=== PATIENT | female | born 1980 | race African-American/Black ===

== ENCOUNTER 2017-07-11 12:40 | Emergency (ER) | payer MEDICAID ==
[2017-07-11 12:51] VITALS: BP 143/102
[2017-07-11] MEDS ORDERED: PROMETHAZINE HCL INJ 25 MG/1 ML VIAL IV ONE (13:41)
--- NOTE | 2017-07-11 13:42 | ER Document Report ---
ED Medical Screen (RME) - General Chief Complaint: Abdominal Pain Stated Complaint: STOMACH PAIN Time Seen by Provider: 07/11/17 13:36 TRAVEL OUTSIDE OF THE U.S. IN LAST 30 DAYS: No - HPI Notes: 07/11/17 13:39 Patient just recently moved to the community from [place] presents with 10/10 stabbing epigastric pain with radiation to her back. Has been associated profound nausea and vomiting. Nothing is made the pain better or worse. Patient has a lengthy history of pancreatitis although she stopped drinking alcohol many years ago. Patient denies fever or any trauma to her abdomen denies chest pain shortness of breath. Denies any diarrhea or dysuria. - Related Data Allergies/Adverse Reactions: acetaminophen [From [place]] Allergy (Verified 07/11/17 12:41) hydrocodone [From [place]] Allergy (Verified 07/11/17 12:41) morphine Allergy (Verified 07/11/17 12:41) Review of Systems - Review of Systems Notes: REVIEW OF SYSTEMS: CONSTITUTIONAL: -fevers, -chills EENT: -eye pain, -difficulty swallowing, -nasal congestion CARDIOVASCULAR: -chest pain, -syncope. RESPIRATORY: -cough, -SOB GASTROINTESTINAL: Abdominal pain, positive for nausea and vomiting GENITOURINARY: -dysuria, -hematuria MUSCULOSKELETAL: -back pain, -neck pain SKIN: -rash or skin lesions. HEMATOLOGIC: -easy bruising or bleeding. LYMPHATIC: -swollen, enlarged glands. NEUROLOGICAL: -altered mental status or loss of consciousness, -headache, - neurologic symptoms PSYCHIATRIC: -anxiety, -depression. ALL OTHER SYSTEMS REVIEWED AND NEGATIVE. Physical Exam - Vital signs Vitals: Temp Pulse Resp BP Pulse Ox 99.4 F 105 H 16 143/102 H 100 07/11/17 12:49 07/11/17 12:49 07/11/17 12:49 07/11/17 12:49 07/11/17 12:49 - Notes Notes: PHYSICAL EXAMINATION: GENERAL: Well-appearing, well-nourished and in no acute distress. HEAD: Atraumatic, normocephalic. EYES: Pupils equal round and reactive to light, extraocular movements intact, sclera anicteric, conjunctiva are normal. ENT: nares patent, oropharynx clear without exudates. Moist mucous membranes. NECK: Normal range of motion, supple without lymphadenopathy LUNGS: Breath sounds clear to auscultation bilaterally and equal. No wheezes rales or rhonchi. HEART: Regular rate and rhythm without murmurs ABDOMEN: Extremely tender epigastric area, no guarding. Negative for peritonitis EXTREMITIES: Normal range of motion, no pitting or edema. No cyanosis. NEUROLOGICAL: Cranial nerves grossly intact. Normal speech, normal gait. Normal sensory and motor exams. PSYCH: Normal mood, normal affect. SKIN: Warm, Dry, normal turgor, no rashes or lesions noted. Course - Re-evaluation Re-evalutation: 07/11/17 13:40 Unfortunate female just moved to the community from [place] presents with apparent pancreatitis, chronic in nature. Will order extensive lab workup further evaluation required in the main side of the department. - Vital Signs Vital signs: Temp Pulse Resp BP Pulse Ox 99.4 F 105 H 16 143/102 H 100 07/11/17 12:49 07/11/17 12:49 07/11/17 12:49 07/11/17 12:49 07/11/17 12:49
--- NOTE | 2017-07-11 15:07 | ER Document Report ---
ED GI/ - General Chief Complaint: Abdominal Pain Stated Complaint: STOMACH PAIN Time Seen by Provider: 07/11/17 13:36 Mode of Arrival: Ambulatory Information source: Patient Notes: Patient is a 36-year-old female with a history of type 2 diabetes, DKA and alcoholic pancreatitis who presents to the ER today for left upper quadrant abdominal pain 2 days with nausea and one episode of vomiting today. Patient denies any diarrhea. Patient states that she stopped drinking alcohol 6 years ago. Patient states that she did take her blood pressure prior to leaving the house to come to the ER and it was 150. Patient states she is compliant with her diabetic medications. She denies any fevers or chills. TRAVEL OUTSIDE OF THE U.S. IN LAST 30 DAYS: No - Related Data Allergies/Adverse Reactions: acetaminophen [From [place]] Allergy (Verified 07/11/17 12:41) hydrocodone [From [place]] Allergy (Verified 07/11/17 12:41) morphine Allergy (Verified 07/11/17 12:41) Past Medical History - General Information source: Patient - Social History Smoking Status: Current Every Day Smoker Frequency of alcohol use: None Drug Abuse: Marijuana Family History: Reviewed & Not Pertinent Patient has suicidal ideation: No Patient has homicidal ideation: No - Past Medical History Cardiac Medical History: Reports: Hx Hypertension Endocrine Medical History: Reports: Hx Diabetes Mellitus Type 2 Renal/ Medical History: Denies: Hx Peritoneal Dialysis Past Surgical History: Reports: Hx Hysterectomy Review of Systems - Review of Systems Constitutional: No symptoms reported EENT: No symptoms reported Cardiovascular: No symptoms reported Respiratory: No symptoms reported Gastrointestinal: See HPI Genitourinary: No symptoms reported Female Genitourinary: No symptoms reported Musculoskeletal: No symptoms reported Skin: No symptoms reported Hematologic/Lymphatic: No symptoms reported Neurological/Psychological: No symptoms reported Physical Exam - Vital signs Vitals: Temp Pulse Resp BP Pulse Ox 99.4 F 105 H 16 143/102 H 100 07/11/17 12:49 07/11/17 12:49 07/11/17 12:49 07/11/17 12:49 07/11/17 12:49 - Notes Notes: PHYSICAL EXAMINATION: GENERAL: Uncomfortable appearing, but in no acute distress. HEAD: Atraumatic, normocephalic. EYES: Pupils equal round and reactive to light, extraocular movements intact, sclera anicteric, conjunctiva are normal. ENT: ear canals without erythema or foreign body, TMs pearly conteh with good bony landmarks, nares patent, oropharynx clear without exudates. Moist mucous membranes. Airway patent NECK: Normal range of motion, supple without lymphadenopathy LUNGS: CTAB and equal. No wheezes rales or rhonchi. HEART: Regular rate and rhythm without murmurs ABDOMEN: Soft, left upper quadrant tenderness. No guarding, no rebound BACK: no vertebral tenderness, normal ROM GI/: no CVA tenderness EXTREMITIES: Normal range of motion, no pitting edema. No cyanosis. NEUROLOGICAL: Cranial nerves grossly intact. Normal sensory/motor exams. PSYCH: Normal mood, normal affect. SKIN: Warm, Dry, normal turgor, no rashes or lesions noted Course - Re-evaluation Re-evalutation: 07/11/17 18:28 Glucose is 130, lipase is mildly elevated at 500, ultrasound-guided IV was placed by Dr. Prescott and so far has been successful, patient feels much better and is now asleep after pain medication and nausea medication. Awaiting CAT scan results. Patient is not in DKA. 07/11/17 19:00 CT negative for any acute pathology, patient will be discharged at this time as she has eaten an entire [employer] sandwich in the room. 07/12/17 16:56 - Vital Signs Vital signs: Temp Pulse Resp BP Pulse Ox 99.4 F 105 H 16 143/102 H 100 07/11/17 12:49 07/11/17 12:49 07/11/17 12:49 07/11/17 12:49 07/11/17 12:49 - Laboratory Result Diagrams: 07/11/17 16:25 07/11/17 17:29 Laboratory results interpreted by me: 07/11/17 07/11/17 07/11/17 13:50 16:25 17:29 Hct 35.9 L RDW 14.6 H Carbon Dioxide 32 H Glucose 129 H POC Glucose Lipase 527.6 H Urine Protein >=500 H Urine Glucose (UA) >=500 H 07/11/17 17:52 Hct RDW Carbon Dioxide Glucose POC Glucose 139 H Lipase Urine Protein Urine Glucose (UA) Discharge - Discharge Clinical Impression: Pancreatitis Qualifiers: Chronicity: acute Pancreatitis type: unspecified pancreatitis type Acute pancreatitis complication: unspecified Qualified Code(s): K85.90 - Acute pancreatitis without necrosis or infection, unspecified Condition: Stable Disposition: HOME, SELF-CARE Instructions: Clear Liquid Diet ([facility]), Pancreatitis ([facility]) Additional Instructions: Return immediately for any new or worsening symptoms. Follow up with primary care provider, call tomorrow to make followup appointment. Prescriptions: Promethazine HCl [Phenergan 25 mg Tablet] 1 - 2 tab PO Q6H PRN #15 tablet PRN Reason: Forms: Return to Work
[2017-07-11] MEDS ORDERED: HYDROMORPHONE HCL INJ/PF 2 MG/ML AMPULE IV ONE (15:09)
[2017-07-11 15:18] LABS: APPEARANCE,URINE SLIGHTLY-CLOUDY; BILIRUBIN,URINE NEGATIVE (NEGATIVE); COLOR,URINE YELLOW; GLUCOSE, URINE >=500 mg/dL (NEGATIVE); KETONES,URINE NEGATIVE (NEGATIVE); LEUKOCYTE ESTERASE,URINE NEGATIVE (NEGATIVE); NITRITE,URINE NEGATIVE (NEGATIVE); PROTEIN,URINE >=500 mg/dL (NEGATIVE); URINE SPECIFIC GRAVITY 1.015; UROBILINOGEN,URINE NEGATIVE mg/dL (<2.0)
[2017-07-11 16:44] LABS: ABSOLUTE BASOPHILS # (AUTO) 0.1 10^3/uL (0.0-0.2); ABSOLUTE EOSINOPHILS # (AUTO) 0.1 10^3/uL (0.0-0.6); ABSOLUTE LYMPHOCYTES (AUTO) 2.7 10^3/uL (0.5-4.7); ABSOLUTE MONOCYTES (AUTO) 0.6 10^3/uL (0.1-1.4); ABSOLUTE NEUT (AUTO) 5.3 10^3/uL (1.7-8.2); BASOPHILS % (AUTO) 1.2 % (0-2); EOSINOPHILS % (AUTO) 1.1 % (0-6); HEMATOCRIT 35.9 % (36.0-47.0); HEMOGLOBIN 12.1 g/dL (12.0-15.5); LYMPHOCYTES % (AUTO) 30.7 % (13-45); MEAN CORPUSCULAR HEMOGLOBIN 29.3 pg (27.0-33.4); MEAN CORPUSCULAR HGB CONC 33.6 g/dL (32.0-36.0); MEAN CORPUSCULAR VOLUME 87 fl (80-97); MONOCYTES % (AUTO) 6.8 % (3-13); PLATELET COUNT 315 10^3/uL (150-450); RED BLOOD COUNT 4.11 10^6/uL (3.72-5.28); RED CELL DISTRIBUTION WIDTH 14.6 % (11.5-14.0); SEGMENTED NEUTROPHILS % (AUTO) 60.2 % (42-78); TOTAL CELLS COUNTED % (AUTO) 100 %; WHITE BLOOD COUNT 8.8 10^3/uL (4.0-10.5)
[2017-07-11 17:54] LABS: ANION GAP 10 (5-19); BLOOD UREA NITROGEN 19 mg/dL (7-20); CALCIUM 10.1 mg/dL (8.4-10.2); CARBON DIOXIDE 32 mmol/L (22-30); CHLORIDE 101 mmol/L (98-107); GLUCOSE 129 mg/dL (75-110); LIPASE 527.6 U/L (23-300); POTASSIUM 4.3 mmol/L (3.6-5.0); SODIUM 142.5 mmol/L (137-145)
--- NOTE | 2017-07-11 18:56 | RADIOLOGY REPORT (SQ) ---
EXAM DESCRIPTION: CT ABD/PELVIS ORAL ONLY COMPLETED DATE/TIME: 07/11/2017 6:43 pm REASON FOR STUDY: epigastric pain/luq pain COMPARISON: None. TECHNIQUE: CT scan of the abdomen and pelvis performed with oral contrast only. Images reviewed with lung, soft tissue, and bone windows. Reconstructed coronal and sagittal MPR images reviewed. All hermila ges stored on PACS. All CT scanners at this facility use dose modulation, iterative reconstruction, and/or weight based d osing when appropriate to reduce radiation dose to as low as reasonably achievable (ALARA). [facility]: Dose Right [facility]: CareDose [facility]: Dose Right [facility]: Teradose 4D [facility]: [employer] RADIATION DOSE: mGy. LIMITATIONS: None. FINDINGS: LOWER CHEST: Dependent subsegmental atelectasis. NON-CONTRASTED LIVER, SPLEEN, ADRENALS: Evaluation limited by lack of IV contrast. No identified sign ificant masses. PANCREAS: No masses. No peripancreatic inflammatory changes. GALLBLADDER: No identified stones by CT criteria. No inflammatory changes to suggest cholecystitis. RIGHT KIDNEY AND URETER: No suspicious masses. Assessment limited by lack of IV contrast. No signif icant calcifications. No hydronephrosis or hydroureter. LEFT KIDNEY AND URETER: No suspicious masses. Assessment limited by lack of IV contrast. No signifi cant calcifications. No hydronephrosis or hydroureter. AORTA AND RETROPERITONEUM: No aneurysm. No retroperitoneal masses or adenopathy. BOWEL AND PERITONEAL CAVITY: No obvious masses or inflammatory changes. No free fluid. APPENDIX: Normal. PELVIS, BLADDER, AND ABDOMINAL WALL:No abnormal masses. No free fluid. Bladder normal. BONES: No significant findings. OTHER: No other significant finding. IMPRESSION: NO SIGNIFICANT OR ACUTE PROCESS IN THE ABDOMEN OR PELVIS. COMMENT: Quality ID # [id number]: Final reports with documentation of one or more dose reduction techniques (e.g., Automated exposure control, adjustment of the mA and/or kV according to patient size, use of iterative reconstruction technique) TECHNICAL DOCUMENTATION: JOB ID: [id number] [employer]- All Rights Reserved Reading location - IP/workstation name: [email or web address]
== END 2017-07-11 19:33 | disposition home or self-care (01) ==
LOC: ER 12:40
DX: K85.90 Acute pancreatitis without necrosis or infection, unspecified (principal); R10.12 Left upper quadrant pain; E11.9 Type 2 diabetes mellitus without complications; R11.2 Nausea with vomiting, unspecified; F17.200 Nicotine dependence, unspecified, uncomplicated; I10 Essential (primary) hypertension
CPT/HCPCS: 99284; 96374; 96375; 36415; 82962; 83605; 83690; 84703; 85025; 80048; 81001; 74176; J1170; J2550

== ENCOUNTER 2017-07-13 12:38 | Emergency (ER) | payer MEDICAID ==
[2017-07-13 12:45] VITALS: BP 152/93
[2017-07-13] MEDS ORDERED: NORMAL SALINE 1000 ML 1,000 ML IV ONE (13:48)
[2017-07-13] MEDS ORDERED: ONDANSETRON HCL INJ/PF 4 MG/2 ML SDV IV ONE (13:48)
--- NOTE | 2017-07-13 13:48 | ER Document Report ---
ED Medical Screen (RME) - General Chief Complaint: Abdominal Pain Stated Complaint: NAUSEA Time Seen by Provider: 07/13/17 13:43 Mode of Arrival: Ambulatory Information source: Patient Notes: This is a 36-year-old female with a history of hypertension, insulin requiring diabetes with a history of DKA in the past who presents to the emergency room with nausea, vomiting, diarrhea and epigastric pain. Patient states she was evaluated in the ER 2 days ago for similar symptoms. TRAVEL OUTSIDE OF THE U.S. IN LAST 30 DAYS: No - Related Data Allergies/Adverse Reactions: hydrocodone [From [place]] Allergy (Verified 07/13/17 12:42) morphine Allergy (Verified 07/13/17 12:42) Past Medical History - Past Medical History Cardiac Medical History: Reports: Hx Hypertension Endocrine Medical History: Reports: Hx Diabetes Mellitus Type 2 Renal/ Medical History: Denies: Hx Peritoneal Dialysis Past Surgical History: Reports: Hx Hysterectomy Physical Exam - Vital signs Vitals: Temp Pulse Resp BP Pulse Ox 99.4 F 113 H 22 H 152/93 H 98 07/13/17 12:43 07/13/17 12:43 07/13/17 12:43 07/13/17 12:43 07/13/17 12:43 Course - Vital Signs Vital signs: Temp Pulse Resp BP Pulse Ox 99.4 F 113 H 22 H 152/93 H 98 07/13/17 12:43 07/13/17 12:43 07/13/17 12:43 07/13/17 12:43 07/13/17 12:43
[2017-07-13] MEDS ORDERED: PROMETHAZINE HCL 25 MG TABLET PO ONE (14:39)
[2017-07-13 15:44] LABS: ABSOLUTE BASOPHILS # (AUTO) 0.1 10^3/uL (0.0-0.2); ABSOLUTE EOSINOPHILS # (AUTO) 0.1 10^3/uL (0.0-0.6); ABSOLUTE LYMPHOCYTES (AUTO) 2.6 10^3/uL (0.5-4.7); ABSOLUTE MONOCYTES (AUTO) 0.6 10^3/uL (0.1-1.4); ABSOLUTE NEUT (AUTO) 5.6 10^3/uL (1.7-8.2); BASOPHILS % (AUTO) 1.1 % (0-2); EOSINOPHILS % (AUTO) 0.9 % (0-6); HEMATOCRIT 38.1 % (36.0-47.0); HEMOGLOBIN 12.5 g/dL (12.0-15.5); LYMPHOCYTES % (AUTO) 28.9 % (13-45); MEAN CORPUSCULAR HEMOGLOBIN 28.7 pg (27.0-33.4); MEAN CORPUSCULAR HGB CONC 32.8 g/dL (32.0-36.0); MEAN CORPUSCULAR VOLUME 87 fl (80-97); MONOCYTES % (AUTO) 6.2 % (3-13); PLATELET COUNT 341 10^3/uL (150-450); RED BLOOD COUNT 4.36 10^6/uL (3.72-5.28); RED CELL DISTRIBUTION WIDTH 14.9 % (11.5-14.0); SEGMENTED NEUTROPHILS % (AUTO) 62.9 % (42-78); TOTAL CELLS COUNTED % (AUTO) 100 %; WHITE BLOOD COUNT 8.9 10^3/uL (4.0-10.5)
[2017-07-13] MEDS ORDERED: FENTANYL CITRATE INJ/PF 100 MCG/2 ML AMPUL IM ONE ×2 (16:01→17:21)
[2017-07-13 16:14] LABS: ALANINE AMINOTRANSFERASE 24 U/L (9-52); ALBUMIN 4.3 g/dL (3.5-5.0); ALKALINE PHOSPHATASE 131 U/L (38-126); ASPARTATE AMINO TRANSFERASE 41 U/L (14-36); BILIRUBIN,DIRECT 0.4 mg/dL (0.0-0.4); BILIRUBIN,TOTAL 0.4 mg/dL (0.2-1.3); BLOOD UREA NITROGEN 23 mg/dL (7-20); CALCIUM 9.8 mg/dL (8.4-10.2); CARBON DIOXIDE 30 mmol/L (22-30); CHLORIDE 100 mmol/L (98-107); GLUCOSE 322 mg/dL (75-110); POTASSIUM 4.4 mmol/L (3.6-5.0); TOTAL PROTEIN 7.9 g/dL (6.3-8.2)
[2017-07-13 16:15] LABS: ANION GAP 8 (5-19); SODIUM 137.6 mmol/L (137-145)
--- NOTE | 2017-07-13 16:30 | ER Document Report ---
ED General - General Chief Complaint: Abdominal Pain Stated Complaint: NAUSEA Time Seen by Provider: 07/13/17 13:43 Mode of Arrival: Ambulatory Information source: Patient, [facility] Records Notes: 36-year-old female with type 1 diabetes presents with complaint of abdominal pain that started 3 days prior to arrival. Abdominal pain is left located in the epigastric and left upper quadrant. She describes it as a burning pain. She has had associated nausea, multiple episodes of vomiting. Patient was seen here 2 days prior to this visit with similar symptoms but was discharged home with improved symptoms. Patient has been compliant with her Lantus and NovoLog. She also states that she has been experiencing diarrhea that has been normal in color. TRAVEL OUTSIDE OF THE [place] IN LAST 30 DAYS: No - HPI Onset: Other Onset/Duration: Intermittent Quality of pain: Burning Severity: Moderate Associated symptoms: Diarrhea, Nausea, Vomiting Exacerbated by: Denies Relieved by: Denies Similar symptoms previously: Yes Recently seen / treated by doctor: Yes - Related Data Allergies/Adverse Reactions: hydrocodone [From [place]] Allergy (Verified 07/13/17 12:42) morphine Allergy (Verified 07/13/17 12:42) Past Medical History - General Information source: Patient - Social History Smoking Status: Current Every Day Smoker Chew tobacco use (# tins/day): No Smoking Education Provided: Yes - Patient counselled regarding cessation for 4 minutes Frequency of alcohol use: Rare Drug Abuse: Marijuana Family History: Reviewed & Not Pertinent Patient has suicidal ideation: No Patient has homicidal ideation: No - Past Medical History Cardiac Medical History: Reports: Hx Hypertension Endocrine Medical History: Reports: Hx Diabetes Mellitus Type 2 Renal/ Medical History: Denies: Hx Peritoneal Dialysis Past Surgical History: Reports: Hx Hysterectomy Review of Systems - Review of Systems Notes: REVIEW OF SYSTEMS: CONSTITUTIONAL : Denies fever, chills, or sweats. Denies recent illness. Denies weight loss, recent hospitalizations. EENT: Denies visula changes, eye pain. Denies nasal or sinus congestion or discharge. Denies sore throat, oral lesions, difficulty swallowing. CARDIOVASCULAR: Denies chest pain. Denies palpitations or racing or irregular heart beat. Denies lower extremity edema. RESPIRATORY: Denies cough, cold, or chest congestion. Denies shortness of breath, difficulty breathing, or wheezing. GASTROINTESTINAL: Denies blood in vomitus, stools, or per rectum. Denies black, tarry stools. Denies constipation. GENITOURINARY: Denies difficulty urinating, painful urination, burning, frequency, blood in urine, or vaginal discharge. MUSCULOSKELETAL: Denies back or neck pain or stiffness. Denies joint pain or swelling. SKIN: Denies rash, lesions or sores. HEMATOLOGIC : Denies easy bruising or bleeding. LYMPHATIC: Denies swollen, enlarged glands. NEUROLOGICAL: Denies confusion or altered mental status. Denies passing out or loss of consciousness. Denies dizziness or lightheadedness. Denies headache. Denies weakness or paralysis or loss of use of either side. Denies problems with gait or speech. Denies sensory loss, numbness, or tingling. Denies seizures. PSYCHIATRIC: Denies anxiety or stress. Denies depression, suicidal ideation, or homicidal ideation. Physical Exam - Vital signs Vitals: Temp Pulse Resp BP Pulse Ox 99.4 F 113 H 22 H 152/93 H 98 07/13/17 12:43 07/13/17 12:43 07/13/17 12:43 07/13/17 12:43 07/13/17 12:43 - Notes Notes: PHYSICAL EXAMINATION: GENERAL: Well-appearing, well-nourished and in no acute distress. HEAD: Atraumatic, normocephalic. EYES: Pupils equal round and reactive to light, extraocular movements intact, conjunctiva are normal. ENT: Nares patent, oropharynx clear without exudates. Moist mucous membranes. NECK: Normal range of motion, supple without lymphadenopathy LUNGS: Breath sounds clear to auscultation bilaterally and equal. No wheezes rales or rhonchi. HEART: Regular rate and rhythm without murmurs ABDOMEN: Tenderness to palpation in the left upper quadrant. No guarding, no rebound. No masses appreciated. Female : deferred Musculoskeletal: Normal range of motion, no pitting or edema. No cyanosis. NEUROLOGICAL: Cranial nerves grossly intact. Normal speech, normal gait. Normal sensory, motor exams PSYCH: Normal mood, normal affect. SKIN: Warm, Dry, normal turgor, no rashes or lesions noted. Course - Re-evaluation Re-evalutation: Laboratory 07/13/17 07/13/17 07/13/17 14:20 15:24 15:24 WBC 8.9 RBC 4.36 Hgb 12.5 Hct 38.1 MCV 87 MCH 28.7 MCHC 32.8 RDW 14.9 H Plt Count 341 Seg Neutrophils % 62.9 Lymphocytes % 28.9 Monocytes % 6.2 Eosinophils % 0.9 Basophils % 1.1 Absolute Neutrophils 5.6 Absolute Lymphocytes 2.6 Absolute Monocytes 0.6 Absolute Eosinophils 0.1 Absolute Basophils 0.1 Sodium 137.6 Potassium 4.4 Chloride 100 Carbon Dioxide 30 Anion Gap 8 BUN 23 H Creatinine 1.15 Est GFR ( Amer) > 60 Est GFR (Non-Af Amer) 53 L Glucose 322 H Calcium 9.8 Total Bilirubin 0.4 Direct Bilirubin 0.4 Neonat Total Bilirubin Not Reportable Neonat Direct Bilirubin Not Reportable Neonat Indirect Bili Not Reportable AST 41 H ALT 24 Alkaline Phosphatase 131 H Total Protein 7.9 Albumin 4.3 Lipase 406.0 H Beta HCG, Quant < 2.39 Total Beta HCG NEGATIVE Urine Color YELLOW Urine Appearance SLIGHTLY-CLOUDY Urine pH 5.0 Ur Specific [place] 1.023 Urine Protein >=500 H Urine Glucose (UA) >=500 H Urine Ketones NEGATIVE Urine Blood SMALL H Urine Nitrite NEGATIVE Urine Bilirubin NEGATIVE Urine Urobilinogen NEGATIVE Ur Leukocyte Esterase NEGATIVE Urine WBC (Auto) 2 Urine RBC (Auto) 1 U Hyaline Cast (Auto) 12 Urine Bacteria (Auto) TRACE Squamous Epi Cells Auto 10 Urine Mucus (Auto) RARE Urine Ascorbic Acid NEGATIVE Serum Alcohol < 10 07/13/17 23:56 36-year-old female with type 1 diabetes presents with complaint of abdominal pain that started 3 days prior to arrival. Abdominal pain is left located in the epigastric and left upper quadrant. She describes it as a burning pain. She has had associated nausea, multiple episodes of vomiting. Patient was seen here 2 days prior to this visit with similar symptoms but was discharged home with improved symptoms. Patient has been compliant with her Lantus and NovoLog. She also states that she has been experiencing diarrhea that has been normal in color. Upon arrival vitals are reviewed. Patient is tachycardic, mildly hypertensive but not hypoxic. Patient does not appear toxic or dehydrated. She is in no acute distress. Physical exam is significant for tenderness to palpation of the left upper quadrant without guarding or rebound. Previous medical records were reviewed. CBC is without leukocytosis or anemia. CMP is without electrolyte abnormalities. Patient has mild elevation in her alk phos, AST. Lipase is 406 which is improved from previous labs drawn 48 hours ago. On reevaluation patient is laughing and joking with her family members. She is tolerating fluids. She reports an improvement of pain. Patient is requesting discharge home. Advised her to maintain a clear liquid diet for the next 2-3 days. Patient provided the opportunity to ask questions, and express concerns. Discharge instructions discussed. Patient is agreeable with discharge home. Return indications explained and discussed with the patient who displays understanding. Patient encouraged to return to the emergency department immediately with any concerns. 07/13/17 17:19 Patient reports feeling better. 07/13/17 23:55 07/13/17 23:57 - Vital Signs Vital signs: Temp Pulse Resp BP Pulse Ox 99.4 F 113 H 22 H 152/93 H 98 07/13/17 12:43 07/13/17 12:43 07/13/17 13:39 07/13/17 12:43 07/13/17 12:43 - Laboratory Result Diagrams: 07/13/17 15:24 07/13/17 15:24 Laboratory results interpreted by me: 07/13/17 07/13/17 07/13/17 14:20 15:24 15:24 RDW 14.9 H BUN 23 H Est GFR (Non-Af Amer) 53 L Glucose 322 H AST 41 H Alkaline Phosphatase 131 H Lipase 406.0 H Urine Protein >=500 H Urine Glucose (UA) >=500 H Urine Blood SMALL H Discharge - Discharge Clinical Impression: Pancreatitis Qualifiers: Chronicity: chronic Pancreatitis type: unspecified pancreatitis type Qualified Code(s): K86.1 - Other chronic pancreatitis Nausea & vomiting Qualifiers: Vomiting type: unspecified Vomiting Intractability: unspecified Qualified Code( s): R11.2 - Nausea with vomiting, unspecified Abdominal pain Qualifiers: Abdominal location: unspecified location Qualified Code(s): R10.9 - Unspecified abdominal pain Condition: Good Disposition: HOME, SELF-CARE Instructions: Abdominal Pain ([facility]), Diarrhea, Nonspecific ([facility]), Pancreatitis ( [facility]), Reglan ([facility]), Vomiting ([facility]) Additional Instructions: Please follow a clear liquid diet for the next 5-7 days. Your lab work does not show that you are in DKA. Follow up with your physician tomorrow for further care or return to the ED IMMEDIATELY if symptoms worsen or new concerns occur. If you cannot afford to follow up with your primary care physician a list of low cost clinics have been provided at the end of your discharge papers as well. Prescriptions: Metoclopramide HCl [Reglan 10 mg Tablet] 1 tab PO ASDIR PRN #15 tablet PRN Reason: Oxycodone HCl/Acetaminophen [Percocet 5-325 mg Tablet] 1 tab PO ASDIR PRN #15 tab PRN Reason:
[2017-07-13 16:35] LABS: ALCOHOL < 10 mg/dL (NONE DETECTED)
[2017-07-13 16:49] LABS: APPEARANCE,URINE SLIGHTLY-CLOUDY; BILIRUBIN,URINE NEGATIVE (NEGATIVE); COLOR,URINE YELLOW; GLUCOSE, URINE >=500 mg/dL (NEGATIVE); KETONES,URINE NEGATIVE (NEGATIVE); LEUKOCYTE ESTERASE,URINE NEGATIVE (NEGATIVE); NITRITE,URINE NEGATIVE (NEGATIVE); PROTEIN,URINE >=500 mg/dL (NEGATIVE); URINE SPECIFIC GRAVITY 1.023; UROBILINOGEN,URINE NEGATIVE mg/dL (<2.0)
[2017-07-13] MEDS ORDERED: METOCLOPRAMIDE HCL 10 MG TABLET PO ONE (17:21)
== END 2017-07-13 18:22 | disposition home or self-care (01) ==
LOC: ER 12:38
DX: R11.2 Nausea with vomiting, unspecified (principal); K86.1 Other chronic pancreatitis; R10.9 Unspecified abdominal pain; R19.7 Diarrhea, unspecified; E10.9 Type 1 diabetes mellitus without complications; F17.200 Nicotine dependence, unspecified, uncomplicated; I10 Essential (primary) hypertension; Z88.6 Allergy status to analgesic agent; Z90.710 Acquired absence of both cervix and uterus
CPT/HCPCS: 99406; 99284; 96372; 36415; 80307; 84702; 83690; 85025; 80053; 81001; J3010; J3490 ×2

== ENCOUNTER 2017-07-22 06:38 | Emergency (ER) | payer MEDICAID ==
[2017-07-22] MEDS ORDERED: FENTANYL CITRATE INJ/PF 100 MCG/2 ML AMPUL IV ONE (06:55)
[2017-07-22] MEDS ORDERED: PROCHLORPERAZINE EDISYLATE INJ 10 MG/2 ML VIAL IV ONE (06:55)
--- NOTE | 2017-07-22 06:56 | ER Document Report ---
ED General - General Stated Complaint: ABDOMINAL PAIN Time Seen by Provider: 07/22/17 06:53 Notes: 36-year-old -[place] female to the emergency department chief complaint of abdominal pain. Patient admits that she used to be a heavy drinker and used to be IV drug abuser. Recently moved to the area. Was recently diagnosed with pancreatitis, again. States that she has 10 out of 10 abdominal pain in the epigastric region. Vomiting. Nothing seems to make it better or worse. No fever. TRAVEL OUTSIDE OF THE [place] IN LAST 30 DAYS: No - HPI Onset: Just prior to arrival - Related Data Allergies/Adverse Reactions: hydrocodone [From [place]] Allergy (Verified 07/22/17 07:03) morphine Allergy (Verified 07/22/17 07:03) Past Medical History - General Information source: Patient - Social History Smoking Status: Former Smoker Frequency of alcohol use: Occasional Drug Abuse: None Lives with: Friend Family History: Reviewed & Not Pertinent - Past Medical History Cardiac Medical History: Reports: Hx Hypertension Endocrine Medical History: Reports: Hx Diabetes Mellitus Type 2 Renal/ Medical History: Denies: Hx Peritoneal Dialysis Past Surgical History: Reports: Hx Hysterectomy Review of Systems - Review of Systems Constitutional: No symptoms reported EENT: No symptoms reported Cardiovascular: No symptoms reported Respiratory: No symptoms reported Gastrointestinal: Abdominal pain, Nausea, Vomiting Genitourinary: No symptoms reported Female Genitourinary: No symptoms reported Musculoskeletal: No symptoms reported Skin: No symptoms reported Hematologic/Lymphatic: No symptoms reported Neurological/Psychological: No symptoms reported Physical Exam - Vital signs Vitals: BP 197/157 H 07/22/17 06:44 Interpretation: Hypertensive, Tachycardic - Notes Notes: Uncomfortable appearing, writhing on the bed. - General General appearance: Appears well, Alert - HEENT Head: Normocephalic, Atraumatic Eyes: Normal Pupils: PERRL - Respiratory Respiratory status: No respiratory distress Chest status: Nontender Breath sounds: Normal Chest palpation: Normal - Cardiovascular Rhythm: Regular Heart sounds: Normal auscultation Murmur: No - Abdominal Inspection: Normal Distension: No distension Bowel sounds: Normal Tenderness: Tender, Other - In the epigastric region Organomegaly: No organomegaly - Back Back: Normal, Nontender - Extremities General upper extremity: Normal inspection, Nontender, Normal color, Normal ROM , Normal temperature General lower extremity: Normal inspection, Nontender, Normal color, Normal ROM , Normal temperature, Normal weight bearing. No: Raheem's sign - Neurological Neuro grossly intact: Yes Cognition: Normal Orientation: AAOx4 [place] Com[place] Scale Eye Opening: Spontaneous [place] Coma Scale Verbal: Oriented [place] Coma Scale Motor: Obeys Commands [place] Coma Scale Total: 15 Speech: Normal Motor strength normal: LUE, RUE, LLE, RLE Sensory: Normal - Psychological Associated symptoms: Normal affect, Normal mood - Skin Skin Temperature: Warm Skin Moisture: Dry Skin Color: Other - Multiple track johnson on bilateral upper extremities as well as neck. Course - Re-evaluation Re-evalutation: 07/22/17 07:49 Patient hypertensive, abdominal pain. Young and thin. Likely in narcotic withdrawal. Patient has multiple track johnson on her arms. Attempted multiple tries with ultrasound guidance both of the bilateral upper extremities and the right EJ and was unsuccessful. Nurse was able to get IV and right foot. 07/22/17 08:45 [place] prescription monitoring program access. No obvious recent narcotic prescriptions. 07/22/17 11:27 Labs fairly baseline and unremarkable. Find nothing further acute. At this time patient is resting comfortably. Has not had any further issues while in the ER. Sats are 100%. Blood pressures come down. Heart rate 90. Comfortable discharging after p.o. challenge if unable to complete p.o. challenge may need to be admitted for intractable vomiting. - Vital Signs Vital signs: Temp Pulse Resp BP Pulse Ox 98.1 F 13 179/111 H 100 07/22/17 06:50 07/22/17 10:01 07/22/17 10:00 07/22/17 10:01 - Laboratory Result Diagrams: 07/22/17 08:00 07/22/17 08:00 Laboratory results interpreted by me: 07/22/17 07/22/17 07/22/17 08:00 08:00 08:00 Hgb 11.6 L Hct 35.7 L RDW 14.5 H Sodium 146.8 H Potassium 3.4 L Glucose 225 H Calcium 10.4 H Alkaline Phosphatase 130 H Creatine Kinase 149 H Lipase 430.3 H Urine Protein Urine Glucose (UA) Urine Blood 07/22/17 09:30 Hgb Hct RDW Sodium Potassium Glucose Calcium Alkaline Phosphatase Creatine Kinase Lipase Urine Protein >=500 H Urine Glucose (UA) >=500 H Urine Blood SMALL H Discharge - Discharge Clinical Impression: Chronic abdominal pain Chronic pancreatitis Qualifiers: Pancreatitis type: alcohol induced Qualified Code(s): K86.0 - Alcohol-induced chronic pancreatitis Condition: Good Disposition: HOME, SELF-CARE Instructions: Abdominal Pain ([facility]), Oral Narcotic Medication ([facility]), Pain Medication Injection ([facility]), Pancreatitis ([facility]) Prescriptions: Ondansetron [Zofran Odt 4 mg Tablet] 1 - 2 tab PO Q4H PRN #15 tab.rapdis PRN Reason: For Nausea/Vomiting Oxycodone HCl/Acetaminophen [Percocet 5-325 mg Tablet] 1 tab PO ASDIR PRN #15 tab PRN Reason: Pain Scale Of 3 Referrals: REGI DE LUNA MD [ACTIVE STAFF] - Follow up in 3-5 days AJIT PALOMINO MD [ACTIVE STAFF] - Follow up in 1 week
--- NOTE | 2017-07-22 07:38 | EKG REPORT ---
SEVERITY:- ABNORMAL ECG - SINUS TACHYCARDIA CONSIDER LEFT VENTRICULAR HYPERTROPHY BORDERLINE PROLONGED QT INTERVAL : Confirmed by: Alvaro Lema MD 22-Jul-2017 07:37:17
[2017-07-22 08:33] LABS: ABSOLUTE LYMPHOCYTES (AUTO) 1.9 10^3/uL (0.5-4.7); ABSOLUTE MONOCYTES (AUTO) 0.3 10^3/uL (0.1-1.4); ABSOLUTE NEUT (AUTO) 6.8 10^3/uL (1.7-8.2); BASOPHILS % (AUTO) 0.5 % (0-2); EOSINOPHILS % (AUTO) 0.2 % (0-6); HEMATOCRIT 35.7 % (36.0-47.0); HEMOGLOBIN 11.6 g/dL (12.0-15.5); LYMPHOCYTES % (AUTO) 20.6 % (13-45); MEAN CORPUSCULAR HEMOGLOBIN 28.3 pg (27.0-33.4); MEAN CORPUSCULAR HGB CONC 32.4 g/dL (32.0-36.0); MEAN CORPUSCULAR VOLUME 88 fl (80-97); MONOCYTES % (AUTO) 3.7 % (3-13); PLATELET COUNT 311 10^3/uL (150-450); RED BLOOD COUNT 4.08 10^6/uL (3.72-5.28); RED CELL DISTRIBUTION WIDTH 14.5 % (11.5-14.0); TOTAL CELLS COUNTED % (AUTO) 100 %; WHITE BLOOD COUNT 9.1 10^3/uL (4.0-10.5)
[2017-07-22] MEDS ORDERED: ONDANSETRON 4 MG TAB.RAPDIS PO ONE (08:46)
[2017-07-22] MEDS ORDERED: OXYCODONE-ACETAMINOPHEN 5-325 MG TABLET PO ONE (08:46)
[2017-07-22 08:59] LABS: LIPASE 430.3 U/L (23-300)
[2017-07-22 09:00] LABS: ALANINE AMINOTRANSFERASE 29 U/L (9-52); ALBUMIN 4.4 g/dL (3.5-5.0); ALCOHOL < 10 mg/dL (NONE DETECTED); ALKALINE PHOSPHATASE 130 U/L (38-126); ANION GAP 12 (5-19); ASPARTATE AMINO TRANSFERASE 23 U/L (14-36); BILIRUBIN,DIRECT 0.2 mg/dL (0.0-0.4); BILIRUBIN,TOTAL 0.4 mg/dL (0.2-1.3); BLOOD UREA NITROGEN 18 mg/dL (7-20); CALCIUM 10.4 mg/dL (8.4-10.2); CARBON DIOXIDE 30 mmol/L (22-30); CHLORIDE 105 mmol/L (98-107); CREATINE KINASE 149 U/L (30-135); GLUCOSE 225 mg/dL (75-110); POTASSIUM 3.4 mmol/L (3.6-5.0); SODIUM 146.8 mmol/L (137-145); TOTAL PROTEIN 7.5 g/dL (6.3-8.2)
[2017-07-22 09:09] LABS: CREATINE KINASE MB 0.93 ng/mL (<4.55)
[2017-07-22 09:11] LABS: TROPONIN I < 0.012 ng/mL
[2017-07-22 11:01] LABS: APPEARANCE,URINE CLEAR; BILIRUBIN,URINE NEGATIVE (NEGATIVE); COLOR,URINE STRAW; GLUCOSE, URINE >=500 mg/dL (NEGATIVE); KETONES,URINE NEGATIVE (NEGATIVE); LEUKOCYTE ESTERASE,URINE NEGATIVE (NEGATIVE); NITRITE,URINE NEGATIVE (NEGATIVE); PROTEIN,URINE >=500 mg/dL (NEGATIVE); URINE SPECIFIC GRAVITY 1.014; UROBILINOGEN,URINE NEGATIVE mg/dL (<2.0)
[2017-07-22 11:23] LABS: URINE AMPHETAMINES SCREEN NEGATIVE; URINE BARBITURATES SCREEN NEGATIVE; URINE BENZODIAZEPINES SCREEN NEGATIVE; URINE COCAINE SCREEN NEGATIVE; URINE MARIJUANA (THC) SCREEN NEGATIVE; URINE METHADONE SCREEN NEGATIVE; URINE PHENCYCLIDINE SCREEN NEGATIVE
[2017-07-22] MEDS ORDERED: NORMAL SALINE 1000 ML 1,000 ML IV ONE (11:28)
[2017-07-22 12:28] VITALS: BP 136/81
== END 2017-07-22 12:28 | disposition home or self-care (01) ==
LOC: ER 06:38
DX: K86.0 Alcohol-induced chronic pancreatitis (principal); R10.13 Epigastric pain; G89.29 Other chronic pain; R11.2 Nausea with vomiting, unspecified; Z87.898 Personal history of other specified conditions; Z86.59 Personal history of other mental and behavioral disorders; Z87.891 Personal history of nicotine dependence; I10 Essential (primary) hypertension; E11.9 Type 2 diabetes mellitus without complications
CPT/HCPCS: 93005; 99284; 96374; 96375; 36415; 82553; 80307 ×2; 82550; 84702; 83690; 85025; 80053; 81001; 84484; 93010; J3010; J0780

== ENCOUNTER 2017-07-25 01:08 | Emergency (ER) | payer MEDICAID ==
[2017-07-25] MEDS ORDERED: NORMAL SALINE 1000 ML 1,000 ML IV PRN (01:21)
[2017-07-25] MEDS ORDERED: HALOPERIDOL LACTATE INJ 5 MG/1 ML VIAL IV ONE (01:38)
--- NOTE | 2017-07-25 01:40 | ER Document Report ---
ED GI/ - General Chief Complaint: Nausea/Vomiting Stated Complaint: ABDOMINAL PAIN Time Seen by Provider: 07/25/17 01:33 Notes: Patient is a 36-year-old female, past medical history alcoholic pancreatitis, history of IV drug use, type II diabetic, hypertension, history of DKA, presents with several hours of epigastric abdominal pain. This is her fourth ER visit in 2 weeks after she has moved from [place] to [place]. She had a CAT scan for this pain 2 weeks ago and it was negative. Patient did not take her 30 units of Lantus last night. She denies hematemesis, diarrhea, constipation, chest pain or shortness of breath. TRAVEL OUTSIDE OF THE [place] IN LAST 30 DAYS: No - Related Data Allergies/Adverse Reactions: hydrocodone [From [place]] Allergy (Verified 07/22/17 07:03) morphine Allergy (Verified 07/22/17 07:03) Past Medical History - General Information source: Patient - Social History Smoking Status: Unknown if Ever Smoked Frequency of alcohol use: Heavy - In the past Drug Abuse: Heroin Family History: Reviewed & Not Pertinent - Past Medical History Cardiac Medical History: Reports: Hx Hypertension Endocrine Medical History: Reports: Hx Diabetes Mellitus Type 2 Renal/ Medical History: Denies: Hx Peritoneal Dialysis Past Surgical History: Reports: Hx Hysterectomy Review of Systems - Review of Systems Notes: REVIEW OF SYSTEMS: CONSTITUTIONAL: -fevers, -chills EENT: -eye pain, -difficulty swallowing, -nasal congestion CARDIOVASCULAR: -chest pain, -syncope. RESPIRATORY: -cough, -SOB GASTROINTESTINAL: +epigastric abdominal pain, +nausea, +vomiting, -diarrhea GENITOURINARY: -dysuria, -hematuria MUSCULOSKELETAL: -back pain, -neck pain SKIN: -rash or skin lesions. HEMATOLOGIC: -easy bruising or bleeding. LYMPHATIC: -swollen, enlarged glands. NEUROLOGICAL: -altered mental status or loss of consciousness, -headache, - neurologic symptoms PSYCHIATRIC: -anxiety, -depression. ALL OTHER SYSTEMS REVIEWED AND NEGATIVE. Physical Exam - Notes Notes: PHYSICAL EXAMINATION: GENERAL: Well-appearing, well-nourished and in no acute distress. HEAD: Atraumatic, normocephalic. EYES: Pupils equal round and reactive to light, extraocular movements intact, sclera anicteric, conjunctiva are normal. ENT: nares patent, oropharynx clear without exudates. Moist mucous membranes. NECK: Normal range of motion, supple without lymphadenopathy LUNGS: Breath sounds clear to auscultation bilaterally and equal. No wheezes rales or rhonchi. HEART: Regular rate and rhythm without murmurs ABDOMEN: Soft, mild epigastric tenderness, normoactive bowel sounds. No guarding, no rebound. No masses appreciated. EXTREMITIES: Normal range of motion, no pitting or edema. No cyanosis. NEUROLOGICAL: Cranial nerves grossly intact. Normal speech, normal gait. Normal sensory and motor exams. PSYCH: Normal mood, normal affect. SKIN: Warm, Dry, normal turgor, no rashes or lesions noted. Course - Re-evaluation Re-evalutation: Patient with chronic abdominal pain in the epigastric region. Her lipase is normal. Blood work is remarkable for hyperglycemia without an anion gap. She is also dehydrated as evidenced by her elevated BUN and creatinine. She was provided with 2 L IV fluids and Haldol. Her nausea has resolved and abdominal pain is much better. Suspect a component of gastritis and diabetic gastroparesis. She has an appointment with a primary care physician soon. Given strict return precautions and she understands - Laboratory Result Diagrams: 07/25/17 02:10 07/25/17 02:10 Laboratory results interpreted by me: 07/25/17 07/25/17 07/25/17 01:37 02:10 02:10 WBC 11.0 H Hgb 10.9 L Hct 32.8 L RDW 14.5 H Absolute Neutrophils 8.3 H BUN 40 H Creatinine 1.52 H Est GFR ( Amer) 47 L Est GFR (Non-Af Amer) 39 L Glucose 425 H* AST 41 H Lipase 360.8 H Urine Protein 100 H Urine Glucose (UA) >=500 H Urine Blood SMALL H Discharge - Discharge Clinical Impression: Chronic abdominal pain, RONIT (acute kidney injury), Hyperglycemia Nausea & vomiting Qualifiers: Vomiting type: unspecified Vomiting Intractability: non-intractable Qualified Code(s): R11.2 - Nausea with vomiting, unspecified Condition: Stable Disposition: HOME, SELF-CARE Additional Instructions: HYPERGLYCEMIA (HIGH BLOOD SUGAR): You have an abnormally high blood sugar. Not all high blood sugar requires long-term treatment. High blood sugar can be due to medications, , or the stress of illness. (These cases are "borderline diabetes.") If the doctor feels your high blood sugar might resolve with time, you may not require treatment now. It's very important that you follow through, to see if the blood sugar returns to normal levels. Uncontrolled high blood sugar leads to early heart disease, strokes, nerve damage, eye damage, and kidney damage. Call the physician if there is faintness, excess sleepiness, or very rapid breathing. DIABETES: You have an abnormally high blood sugar, suspicious for diabetes. Not all high blood sugar requires long-term treatment. High blood sugar can be due to medications, , or the stress of illness. (These cases are "borderline diabetes.") If the doctor feels your high blood sugar might get better with time, you may not require treatment now. It's very important that you follow through. Uncontrolled high blood sugar leads to early heart disease, strokes, nerve damage, eye damage, and kidney damage. All diabetics should follow a diet designed to control the blood sugar. Overweight diabetics should exercise regularly and lose weight. If this is not sufficient to control the blood sugar, pills or insulin shots are necessary. Younger people who develop diabetes almost always require insulin daily. Home testing of blood sugars or urine sugar is required. Diabetic teaching is available to help you figure insulin doses and monitor the blood sugar. Call the physician if there is faintness, excess sleepiness, or very rapid breathing. If hypoglycemia (LOW blood sugar) develops, symptoms are shakiness, weakness, sweating, and confusion. In this case, you should eat or drink something with sugar at once. FOLLOW-UP CARE: If you have been referred to a physician for follow-up care, call the physician s office for an appointment as you were instructed or within the next two days. If you experience worsening or a significant change in your symptoms, notify the physician immediately or return to the Emergency Department at any time for re-evaluation. VOMITING: Vomiting (or nausea without vomiting) can be caused by many other different problems. It can mean that something's wrong with the stomach, such as ulcers or inflammation or the intestinal tract, such as appendicitis. But it can also be a symptom of a problem that has nothing to do with the stomach or intestines. Vomiting is common with severe headaches, earaches, tonsillitis, and kidney infections, etc. We see it with pneumonia or heart attacks. Drugs can cause nausea and vomiting. Many abdominal problems cause vomiting; for example, gallstones, kidney stones, pancreatitis, and intestinal obstruction ( blocked bowels). In most cases, curing the vomiting depends on fixing the problem that caused it. For temporary relief, we may use an anti-nausea medicine. For home use, we can prescribe suppositories, chewable pills, pills that dissolve in the mouth, or liquid anti-nausea drugs. If the vomiting seems to be caused by a problem in the stomach, acid-suppressing drugs may be prescribed as well. It's important to avoid dehydration. Sip small amounts of clear liquids ( soft drinks, tea, broth, etc) . Try to take fluids frequently even if you are vomiting to prevent dehydration. Take increasing amounts of fluid and when liquids are being consumed successfully, advance to small amounts of bland food (toast, soups, mashed potatoes, etc.) until you are able to resume a regular diet. Avoid aspirin, tobacco, and alcohol. If the vomiting worsens, if the problem that's making you vomit worsens, or if there's evidence of bleeding in the stomach (such as black, tarry stool, or bloody or black vomit), you should return immediately. Also, return if abdominal pain worsens or becomes localized to one area or you develop high fever. Call your doctor if you aren't improved in 24 hours. INTRAVENOUS (I V) FLUIDS: As part of your care today, you received intravenous (IV) fluids. IV fluids are administered to patients who are dehydrated or to those who have certain chemical (electrolyte) abnormalities that need correcting. ANTINAUSEA MEDICATION: You have been given a medication to suppress nausea and vomiting. This type of medication can be given as a shot, pill, or suppository. It will usually last for many hours. Pills and shots usually last six to eight hours. For the typical illness, only one or two doses of the medication may be necessary. Mild lightheadedness may occur. This type of medicine can cause drowsiness. Do not drive or operate dangerous machinery while under its influence. Do not mix with alcohol. See your doctor at once if you have muscle spasms or tightness, or uncontrollable motions (particularly of the neck, mouth, or jaw). Persistent vomiting or severe lightheadedness should also be evaluated by the physician. REGLAN (METOCLOPRAMIDE): Reglan has been prescribed. This medicine affects the stomach and intestines. It can be used to treat nausea and vomiting, to prevent reflux of stomach acid up into the esophagus, or to increase the contractions of the stomach and intestines. It is often prescribed for esophagitis, and for paralysis of the stomach in diabetics. Reglan can cause either mild restlessness or drowsiness. You should contact the doctor at once if you become extremely restless, anxious, or cannot sleep, or if you develop uncontrollable motions of the lips, tongue, or jaw. Do not take alcohol with this medicine. Do not drive or operate machinery until you have been taking this medicine long enough to know how it affects you. Call the doctor if you develop abdominal pains, lightheadedness, black stool, or blood in the stool or vomitus. FOLLOW-UP CARE: If you have been referred to a physician for follow-up care, call the physician s office for an appointment as you were instructed or within the next two days. If you experience worsening or a significant change in your symptoms, notify the physician immediately or return to the Emergency Department at any time for re-evaluation. Prescriptions: Metoclopramide HCl [Reglan 10 mg Tablet] 1 - 2 tab PO ASDIR PRN #25 tablet PRN Reason: Referrals: [facility] [Outside] - Follow up as needed
[2017-07-25 02:02] LABS: APPEARANCE,URINE CLEAR; BILIRUBIN,URINE NEGATIVE (NEGATIVE); COLOR,URINE STRAW; GLUCOSE, URINE >=500 mg/dL (NEGATIVE); KETONES,URINE NEGATIVE (NEGATIVE); LEUKOCYTE ESTERASE,URINE NEGATIVE (NEGATIVE); NITRITE,URINE NEGATIVE (NEGATIVE); PROTEIN,URINE 100 mg/dL (NEGATIVE); URINE SPECIFIC GRAVITY 1.013; UROBILINOGEN,URINE NEGATIVE mg/dL (<2.0)
[2017-07-25 02:25] LABS: ABSOLUTE EOSINOPHILS # (AUTO) 0.1 10^3/uL (0.0-0.6); ABSOLUTE MONOCYTES (AUTO) 0.7 10^3/uL (0.1-1.4); ABSOLUTE NEUT (AUTO) 8.3 10^3/uL (1.7-8.2); BASOPHILS % (AUTO) 0.4 % (0-2); EOSINOPHILS % (AUTO) 0.6 % (0-6); HEMATOCRIT 32.8 % (36.0-47.0); HEMOGLOBIN 10.9 g/dL (12.0-15.5); LYMPHOCYTES % (AUTO) 17.7 % (13-45); MEAN CORPUSCULAR HEMOGLOBIN 29.2 pg (27.0-33.4); MEAN CORPUSCULAR HGB CONC 33.1 g/dL (32.0-36.0); MEAN CORPUSCULAR VOLUME 88 fl (80-97); MONOCYTES % (AUTO) 6.1 % (3-13); PLATELET COUNT 272 10^3/uL (150-450); RED BLOOD COUNT 3.73 10^6/uL (3.72-5.28); RED CELL DISTRIBUTION WIDTH 14.5 % (11.5-14.0); SEGMENTED NEUTROPHILS % (AUTO) 75.2 % (42-78); TOTAL CELLS COUNTED % (AUTO) 100 %
[2017-07-25 02:44] LABS: ALANINE AMINOTRANSFERASE 29 U/L (9-52); ALBUMIN 3.6 g/dL (3.5-5.0); ALKALINE PHOSPHATASE 106 U/L (38-126); ANION GAP 11 (5-19); ASPARTATE AMINO TRANSFERASE 41 U/L (14-36); BILIRUBIN,DIRECT 0.3 mg/dL (0.0-0.4); BILIRUBIN,TOTAL 0.3 mg/dL (0.2-1.3); BLOOD UREA NITROGEN 40 mg/dL (7-20); CALCIUM 9.2 mg/dL (8.4-10.2); CARBON DIOXIDE 30 mmol/L (22-30); CHLORIDE 101 mmol/L (98-107); LIPASE 360.8 U/L (23-300); POTASSIUM 3.8 mmol/L (3.6-5.0); TOTAL PROTEIN 6.5 g/dL (6.3-8.2)
[2017-07-25 02:50] LABS: ALCOHOL < 10 mg/dL (NONE DETECTED)
[2017-07-25 02:55] LABS: GLUCOSE 425 mg/dL (75-110)
[2017-07-25] MEDS ORDERED: INSULIN GLARGINE,HUM.REC.ANLOG 1,000 UNIT/10 ML UNIT SUBCUT ONE (03:23)
[2017-07-25 05:07] VITALS: BP 136/78
--- NOTE | 2017-07-25 15:39 | EKG REPORT ---
SEVERITY:- ABNORMAL ECG - SINUS TACHYCARDIA PROBABLE LEFT VENTRICULAR HYPERTROPHY : Confirmed by: Ana Borja MD 25-Jul-2017 15:38:16
== END 2017-07-25 04:10 | disposition home or self-care (01) ==
LOC: ER 01:08
DX: R10.13 Epigastric pain (principal); G89.29 Other chronic pain; E86.0 Dehydration; N17.9 Acute kidney failure, unspecified; E11.65 Type 2 diabetes mellitus with hyperglycemia; T38.3X6A Underdosing of insulin and oral hypoglycemic [antidiabetic] drugs, initial encounter; Z91.14 Patient's other noncompliance with medication regimen; R11.2 Nausea with vomiting, unspecified; I10 Essential (primary) hypertension; Z88.5 Allergy status to narcotic agent; Z87.19 Personal history of other diseases of the digestive system
CPT/HCPCS: 93005; 99284; 96361; 96374; 36415; 80307; 84702; 83690; 85025; 81025; 80053; 81001; 93010; J1630; J7030

== ENCOUNTER 2017-08-16 20:57 | Inpatient (IN) | payer MEDICAID ==
[2017-08-16 22:23] LABS: ABSOLUTE LYMPHOCYTES (AUTO) 2.1 10^3/uL (0.5-4.7); ABSOLUTE MONOCYTES (AUTO) 0.5 10^3/uL (0.1-1.4); ABSOLUTE NEUT (AUTO) 5.8 10^3/uL (1.7-8.2); BASOPHILS % (AUTO) 0.5 % (0-2); EOSINOPHILS % (AUTO) 0.1 % (0-6); HEMATOCRIT 34.2 % (36.0-47.0); HEMOGLOBIN 11.4 g/dL (12.0-15.5); LYMPHOCYTES % (AUTO) 24.7 % (13-45); MEAN CORPUSCULAR HEMOGLOBIN 29.3 pg (27.0-33.4); MEAN CORPUSCULAR HGB CONC 33.4 g/dL (32.0-36.0); MEAN CORPUSCULAR VOLUME 88 fl (80-97); PLATELET COUNT 357 10^3/uL (150-450); RED BLOOD COUNT 3.89 10^6/uL (3.72-5.28); RED CELL DISTRIBUTION WIDTH 14.2 % (11.5-14.0); SEGMENTED NEUTROPHILS % (AUTO) 68.7 % (42-78); TOTAL CELLS COUNTED % (AUTO) 100 %; WHITE BLOOD COUNT 8.4 10^3/uL (4.0-10.5)
--- NOTE | 2017-08-16 22:32 | ER Document Report ---
ED General - General Chief Complaint: Abdominal Pain Stated Complaint: VOMITING AND ABDOMINAL PAIN Time Seen by Provider: 08/16/17 22:23 Mode of Arrival: Ambulatory Information source: Patient, [facility] Records Notes: 36-year-old female with chronic pancreatitis, hypertension, type 2 diabetes, hyperlipidemia, previous IV drug abuse presents with complaint of epigastric abdominal pain that started 2 days prior to arrival. Patient describes the pain as cramping, intermittent and without radiation. She has had associated nausea and vomiting and diarrhea. She denies any black or bloody stools. TRAVEL OUTSIDE OF THE [place] IN LAST 30 DAYS: No - Related Data Allergies/Adverse Reactions: hydrocodone [From [place]] Allergy (Verified 07/29/17 16:49) morphine Allergy (Verified 07/29/17 16:49) Past Medical History - Social History Smoking Status: Current Every Day Smoker Chew tobacco use (# tins/day): No Frequency of alcohol use: None Drug Abuse: Marijuana Family History: Reviewed & Not Pertinent Patient has suicidal ideation: No Patient has homicidal ideation: No - Past Medical History Cardiac Medical History: Reports: Hx Hypercholesterolemia, Hx Hypertension Endocrine Medical History: Reports: Hx Diabetes Mellitus Type 2 Renal/ Medical History: Denies: Hx Peritoneal Dialysis Past Surgical History: Reports: Hx Section - x3, Hx Hysterectomy Physical Exam - Vital signs Vitals: Temp Pulse Resp BP Pulse Ox 98.7 F 110 H 18 139/114 H 100 08/16/17 21:04 08/16/17 21:04 08/16/17 21:04 08/16/17 21:04 08/16/17 21:04 - Notes Notes: PHYSICAL EXAMINATION: GENERAL: Well-appearing, well-nourished and in no acute distress. HEAD: Atraumatic, normocephalic. EYES: Pupils equal round and reactive to light, extraocular movements intact, conjunctiva are normal. ENT: Nares patent, oropharynx clear without exudates. Moist mucous membranes. NECK: Normal range of motion, supple without lymphadenopathy LUNGS: Breath sounds clear to auscultation bilaterally and equal. No wheezes rales or rhonchi. HEART: Regular rate and rhythm without murmurs ABDOMEN: Tenderness to palpation epigastric region. No guarding, no rebound. No masses appreciated. Female : deferred Musculoskeletal: Normal range of motion, no pitting or edema. No cyanosis. NEUROLOGICAL: Cranial nerves grossly intact. Normal speech, normal gait. Normal sensory, motor exams PSYCH: Normal mood, normal affect. SKIN: Warm, Dry, normal turgor, no rashes or lesions noted. Course - Re-evaluation Re-evalutation: Laboratory 08/16/17 08/16/17 08/16/17 22:00 22:00 22:00 WBC 8.4 RBC 3.89 Hgb 11.4 L Hct 34.2 L MCV 88 MCH 29.3 MCHC 33.4 RDW 14.2 H Plt Count 357 Seg Neutrophils % 68.7 Lymphocytes % 24.7 Monocytes % 6.0 Eosinophils % 0.1 Basophils % 0.5 Absolute Neutrophils 5.8 Absolute Lymphocytes 2.1 Absolute Monocytes 0.5 Absolute Eosinophils 0.0 Absolute Basophils 0.0 Sodium 138.1 Potassium 4.0 Chloride 98 Carbon Dioxide 23 Anion Gap 17 BUN 41 H Creatinine 1.82 H Est GFR ( Amer) 38 L Est GFR (Non-Af Amer) 31 L Glucose 399 H Calcium 9.8 Total Bilirubin 0.6 Direct Bilirubin 0.4 Neonat Total Bilirubin Not Reportable Neonat Direct Bilirubin Not Reportable Neonat Indirect Bili Not Reportable AST 21 ALT 26 Alkaline Phosphatase 120 Total Protein 7.1 Albumin 4.1 Lipase 362.4 H Serum HCG, Qual NEGATIVE 36-year-old female with chronic pancreatitis, hypertension, type 2 diabetes, hyperlipidemia, previous IV drug abuse presents with complaint of epigastric abdominal pain that started 2 days prior to arrival. Patient describes the pain as cramping, intermittent and without radiation. She has had associated nausea and vomiting and diarrhea. She denies any black or bloody stools. Upon arrival patient is tachycardic, hypertensive but afebrile. Patient does not appear toxic or dehydrated but she does appear to be in significant pain. She is actively vomiting. Denies any recent alcohol or drug use. CBC is without leukocytosis but does show anemia. CMP significant for creatinine of 1.82 and a glucose of 399. No evidence of DKA. 08/17/17 01:37 She reevaluated and she does report improvement of her nausea and pain although the pain is still present. 08/17/17 03:26 On reevaluation patient's abdominal pain has improved but still present despite IV Dilaudid. She does have an elevated glucose of 499 on repeat BMP. Repeat BMP does show improvement of her chronically elevated creatinine. Insulin will be given. Patient reevaluated and continues to vomit. Pain has returned. Patient will be admitted to Dr. Lockhart's service. 08/17/17 03:52 08/17/17 03:53 08/17/17 03:53 - Vital Signs Vital signs: Temp Pulse Resp BP Pulse Ox 98.7 F 110 H 18 139/114 H 100 08/16/17 21:04 08/16/17 21:04 08/16/17 21:04 08/16/17 21:04 08/16/17 21:04 - Laboratory Result Diagrams: 08/16/17 22:00 08/17/17 02:35 Laboratory results interpreted by me: 08/16/17 08/16/17 08/17/17 22:00 22:00 00:45 Hgb 11.4 L Hct 34.2 L RDW 14.2 H Carbon Dioxide BUN 41 H Creatinine 1.82 H Est GFR ( Amer) 38 L Est GFR (Non-Af Amer) 31 L Glucose 399 H Lipase 362.4 H Urine Protein 100 H Urine Glucose (UA) >=500 H Urine Ketones 20 H Urine Blood SMALL H 08/17/17 02:35 Hgb Hct RDW Carbon Dioxide 20 L BUN 34 H Creatinine 1.36 H Est GFR ( Amer) 53 L Est GFR (Non-Af Amer) 44 L Glucose 471 H* Lipase Urine Protein Urine Glucose (UA) Urine Ketones Urine Blood Discharge - Discharge Clinical Impression: RONIT (acute kidney injury), Hyperglycemia Intractable nausea and vomiting Qualifiers: Vomiting type: unspecified Qualified Code(s): R11.2 - Nausea with vomiting, unspecified Pancreatitis Qualifiers: Chronicity: acute Pancreatitis type: unspecified pancreatitis type Acute pancreatitis complication: unspecified Qualified Code(s): K85.90 - Acute pancreatitis without necrosis or infection, unspecified Condition: Good Disposition: ADMITTED INPATIENT Admitting Provider: Hans Unit Admitted: Medical Floor Referrals: RADHA LOCKHART MD [Primary Care Provider] - Follow up as needed
[2017-08-16 22:41] LABS: ALANINE AMINOTRANSFERASE 26 U/L (9-52); ALBUMIN 4.1 g/dL (3.5-5.0); ALKALINE PHOSPHATASE 120 U/L (38-126); ANION GAP 17 (5-19); ASPARTATE AMINO TRANSFERASE 21 U/L (14-36); BILIRUBIN,DIRECT 0.4 mg/dL (0.0-0.4); BILIRUBIN,TOTAL 0.6 mg/dL (0.2-1.3); BLOOD UREA NITROGEN 41 mg/dL (7-20); CALCIUM 9.8 mg/dL (8.4-10.2); CARBON DIOXIDE 23 mmol/L (22-30); CHLORIDE 98 mmol/L (98-107); LIPASE 362.4 U/L (23-300); SODIUM 138.1 mmol/L (137-145); TOTAL PROTEIN 7.1 g/dL (6.3-8.2)
[2017-08-16] MEDS ORDERED: HYDROMORPHONE HCL INJ/PF 2 MG/ML AMPULE IV ONE (22:42)
[2017-08-16] MEDS ORDERED: ONDANSETRON 4 MG TAB.RAPDIS PO ONE (22:42)
[2017-08-16] MEDS ORDERED: NORMAL SALINE 1000 ML 1,000 ML IV ONE (22:42)
[2017-08-16 22:46] LABS: GLUCOSE 399 mg/dL (75-110)
[2017-08-17] MEDS: RINGERS SOLUTION,LACTATED 1,000 ML IV PRN ×2 (00:44→02:44)
[2017-08-17] MEDS ORDERED: HYDROMORPHONE HCL INJ/PF 2 MG/ML AMPULE IV ONE (01:36)
[2017-08-17 02:03] LABS: APPEARANCE,URINE SLIGHTLY-CLOUDY; BILIRUBIN,URINE NEGATIVE (NEGATIVE); COLOR,URINE YELLOW; GLUCOSE, URINE >=500 mg/dL (NEGATIVE); KETONES,URINE 20 mg/dL (NEGATIVE); LEUKOCYTE ESTERASE,URINE NEGATIVE (NEGATIVE); NITRITE,URINE NEGATIVE (NEGATIVE); PROTEIN,URINE 100 mg/dL (NEGATIVE); URINE SPECIFIC GRAVITY 1.017; UROBILINOGEN,URINE NEGATIVE mg/dL (<2.0)
[2017-08-17 03:13] LABS: ANION GAP 17 (5-19); BLOOD UREA NITROGEN 34 mg/dL (7-20); CALCIUM 9.1 mg/dL (8.4-10.2); CARBON DIOXIDE 20 mmol/L (22-30); CHLORIDE 101 mmol/L (98-107); POTASSIUM 4.4 mmol/L (3.6-5.0); SODIUM 138.4 mmol/L (137-145)
[2017-08-17 03:22] LABS: GLUCOSE 471 mg/dL (75-110)
[2017-08-17] MEDS ORDERED: NORMAL SALINE 1000 ML 1,000 ML IV PRN (03:25)
[2017-08-17] MEDS ORDERED: INSULIN REG, HUMAN 100 UNIT/ML 3 ML VIAL (PYX) SUBCUT ONE (03:25)
[2017-08-17] MEDS ORDERED: ONDANSETRON 4 MG TAB.RAPDIS PO ONE (03:42)
[2017-08-17] MEDS ORDERED: ONDANSETRON 4 MG TAB.RAPDIS ONE (03:45)
[2017-08-17] MEDS ORDERED: ACETAMINOPHEN 325 MG TABLET PO PRN (04:02)
[2017-08-17] MEDS ORDERED: ONDANSETRON 4 MG TAB.RAPDIS PO PRN (04:02)
[2017-08-17] MEDS ORDERED: DEXTROSE 40% GEL 15 GM TUBE PO PRN ×2 (04:07)
[2017-08-17] MEDS ORDERED: GLUCAGON,HUMAN RECOMB 1 MG INJ IM PRN (04:07)
[2017-08-17] MEDS ORDERED: DEXTROSE 50%-WATER 25 GM/50 ML DISP.SYRIN IV PRN ×2 (04:07)
[2017-08-17 05:14] LABS: URINE AMPHETAMINES SCREEN NEGATIVE; URINE BARBITURATES SCREEN NEGATIVE; URINE BENZODIAZEPINES SCREEN NEGATIVE; URINE COCAINE SCREEN NEGATIVE; URINE MARIJUANA (THC) SCREEN UNCONFIRMED POSITIVE; URINE METHADONE SCREEN NEGATIVE; URINE PHENCYCLIDINE SCREEN NEGATIVE
[2017-08-17] MEDS: INSULIN LISPRO 100 UNIT/ML 3 ML VIAL SUBCUT PRN ×3 (06:23→23:37)
[2017-08-17] MEDS: OXYCODONE-ACETAMINOPHEN 5-325 MG TABLET PO PRN ×2 (06:23→16:28)
[2017-08-17] MEDS ORDERED: INSULIN GLARGINE,HUM.REC.ANLOG 1,000 UNIT/10 ML UNIT SUBCUT ONE ×2 (08:30→23:15)
--- NOTE | 2017-08-17 09:52 | PDOC CONSULTATION ---
Consultation Consult Date: 08/17/17 Attending physician:: SHINE CANTU Consult reason:: epigastric abdominal pain. history of PUD History of Present Illness Admission Date/PCP: 08/17/17 03:59 RADHA LOCKHART MD History of Present Illness: JJ HOFFMAN is a 36 year old female I was called on this patient prior to her admission she is being admitted to Dr Lockhart's service she is having epigastric abdominal pain has a history of PUD patient has DM, may have gastroparesis patient says no melena has nausea and vomiting there is some early satiety patient states moved from [place] had possible GI work up Dr Lockhart requesting work up has had multiple admissions in the past Past Medical History Cardiac Medical History: Reports: Hyperlipidema, Hypertension Endocrine Medical History: Reports: Diabetes Mellitus Type 2 Past Surgical History Past Surgical History: Reports: Section - x3, Hysterectomy Social History Smoking Status: Current Every Day Smoker Frequency of Alcohol Use: None Drugs: Marijuana Hx Prescription Drug Abuse: No Family History Family History: Reviewed & Not Pertinent Parental Family History Reviewed: Yes Children Family History Reviewed: Unknown Sibling(s) Family History Reviewed.: Unknown Medication/Allergy Allergies/Adverse Reactions: hydrocodone [From [place]] Allergy (Verified 07/29/17 16:49) morphine Allergy (Verified 07/29/17 16:49) Review of Systems Constitutional: ABSENT: fever(s), headache(s), night sweats, weakness Eyes: ABSENT: visual disturbances Ears: ABSENT: hearing changes Nose, Mouth, and Throat: ABSENT: mouth pain, sore throat Cardiovascular: ABSENT: edema, orthropnea Respiratory: ABSENT: dyspnea, hemoptysis Gastrointestinal: PRESENT: heartburn, nausea, vomiting. ABSENT: dysphagia Genitourinary: ABSENT: dysuria, hematuria Musculoskeletal: ABSENT: deformity, joint swelling Neurological: ABSENT: syncope, tingling, tremor(s), vertigo Endocrine: ABSENT: polydipsia, polyphagia, polyuria Hematologic/Lymphatic: ABSENT: easy bruising Physical Exam Vital Signs: Temp Pulse Resp BP Pulse Ox 98.5 F 89 17 158/94 H 99 08/17/17 08:06 08/17/17 08:06 08/17/17 08:06 08/17/17 08:06 08/17/17 08:06 Intake & Output 07/11/2408/17/17 08/18/17 06:59 06:59 06:59 Weight 57.9 kg General appearance: PRESENT: mild distress Head exam: PRESENT: atraumatic, normocephalic Eye exam: PRESENT: EOMI, PERRLA. ABSENT: nystagmus, periorbital swelling, scleral icterus Mouth exam: PRESENT: moist, neck supple Throat exam: ABSENT: tonsillar exudate, tonsillogmegaly Neck exam: ABSENT: meningismus, tenderness, thyromegaly Respiratory exam: PRESENT: unlabored. ABSENT: symmetrical, tachypnea, wheezes Cardiovascular exam: PRESENT: +S1, +S2 GI/Abdominal exam: PRESENT: soft. ABSENT: rebound, rigid, tenderness Extremities exam: ABSENT: joint swelling Musculoskeletal exam: PRESENT: full ROM Neurological exam: PRESENT: alert, awake, oriented to time, CN II-XII grossly intact Focused psych exam: ABSENT: restlessness Skin exam: PRESENT: normal color. ABSENT: mottled, pallor, urticaria, vesicles Assessment & Plan - Diagnosis (1) Intractable nausea and vomiting Qualifiers: Vomiting type: unspecified Qualified Code(s): R11.2 - Nausea with vomiting , unspecified Plan: patient has history of PUD in the past has epigastric pain along with nausea and vomiting will need EGD Risks, benefits and alternatives are discussed with the patient in detail further recommendations to follow - Time Time Spent: 50 to 70 Minutes
--- NOTE | 2017-08-17 09:55 | RADIOLOGY REPORT (SQ) ---
EXAM DESCRIPTION: CT ABDOMEN NO ORAL OR IV COMPLETED DATE/TIME: 08/17/2017 9:44 am REASON FOR STUDY: PANCREATITIS COMPARISON: CT abdomen and pelvis 07/11/2017 TECHNIQUE: CT scan of the abdomen performed without intravenous contrast and without oral contrast. Images reviewed with lung, soft tissue, and bone windows. Reconstructed coronal and sagittal MPR im ages reviewed. All images stored on PACS. All CT scanners at this facility use dose modulation, iterative reconstruction, and/or weight based d osing when appropriate to reduce radiation dose to as low as reasonably achievable (ALARA). [facility]: Dose Right [facility]: CareDose [facility]: Dose Right [facility]: Teradose 4D [facility]: Smart Cintric RADIATION DOSE: CT Rad equipment meets quality standard of care and radiation dose reduction techniq ues were employed. CTDIvol: 2.7 mGy. DLP: 91 mGy-cm.mGy. LIMITATIONS: Slender patient, no IV or oral contrast. FINDINGS: LOWER CHEST: No significant findings. No nodules or infiltrates. NONCONTRASTED LIVER, SPLEEN, ADRENALS: Evaluation limited by lack of IV contrast. No identified sign ificant masses. PANCREAS: Punctate calcifications are present at the pancreatic head. Pancreas normal size common no ductal dilatation. No peripancreatic fluid or inflammation. GALLBLADDER: No identified stones by CT criteria. No inflammatory changes to suggest cholecystitis. RIGHT KIDNEY AND URETER: No suspicious masses. Assessment limited by lack of IV contrast. No signif icant calcifications. No hydronephrosis or hydroureter. LEFT KIDNEY AND URETER: No suspicious masses. Assessment limited by lack of IV contrast. No signifi cant calcifications. No hydronephrosis or hydroureter. AORTA AND RETROPERITONEUM: No aneurysm. No retroperitoneal masses or adenopathy. BOWEL AND PERITONEAL CAVITY: No obvious masses or inflammatory changes. No free fluid. APPENDIX: Normal ABDOMINAL WALL: No abdominal wall hernias. BONES: No significant findings. OTHER: No other significant finding. IMPRESSION: Punctate calcifications at the pancreatic head from prior episodes of pancreatitis. No gross peripancreatic inflammation or peripancreatic fluid collections on today's study. TECHNICAL DOCUMENTATION: JOB ID: [id number] Quality ID # [id number]: Final reports with documentation of one or more dose reduction techniques (e.g., Au tomated exposure control, adjustment of the mA and/or kV according to patient size, use of iterative reconstruction technique) 2010 [employer]- All Rights Reserved Reading location - IP/workstation name: [email or web address]
[2017-08-17] MEDS: NORMAL SALINE 1000 ML 1,000 ML IV PRN ×2 (09:58→21:01)
[2017-08-17] MEDS: FAMOTIDINE INJ/PF 20 MG/2 ML SDV IV SCH ×2 (10:09→23:41)
[2017-08-17] MEDS: ENOXAPARIN SODIUM INJ 40 MG/0.4 ML DISP.SYRIN SUBCUT SCH (10:13)
--- NOTE | 2017-08-17 11:18 | PDOC H&P ---
History of Present Illness Admission Date/PCP: 08/17/17 03:59 RADHA LOCKHART MD Patient complains of: Abdominal pain nausea and vomiting History of Present Illness: JJ HOFFMAN is a 36 year old female This 36-year-old females with a history of the alcoholism with the history of the chronic pancreatitis history of the substance drug abuse recently moved from the [place] as a new patients to [facility] couple of weeks back of a multiple hospital admission in the past and recently multiple ER visit for abdominal pain nausea and vomitingAnd recently came to the ER and a CT scan of the abdomen and pelvis with oral contrast was done was no acute finding came to the emergency department with intractable nausea vomiting and abdominal painPatient's lipase was elevated without elevation of the LFT just most related to chronic pancreatitis Since urine drug screen is positive for marijuana and opioid patient's denied using the drugs Patients not drinking alcohol as per patient see not sure since last 6 month Patient have a history of the peptic ulcer disease and history of the type 2 diabetes was currently very noncompliance with the patient hemoglobin A1c is 12 Patient have a history of the stroke in the past according to the patient's when she was in the hospital in [place] Patients when I saw in the floor denied any chest pain denied any shortness of the breath the abdominal pain is still there Patient's able to keep the clear liquid downs Past Medical History Cardiac Medical History: Reports: Hyperlipidema, Hypertension Neurological Medical History: Reports: Ischemic CVA Endocrine Medical History: Reports: Diabetes Mellitus Type 2 Past Surgical History Past Surgical History: Reports: Section - x3, Hysterectomy Social History Smoking Status: Current Every Day Smoker Frequency of Alcohol Use: Occasional Hx Recreational Drug Use: Yes Drugs: Marijuana Hx Prescription Drug Abuse: No Family History Family History: Reviewed & Not Pertinent Parental Family History Reviewed: Yes Children Family History Reviewed: Yes Sibling(s) Family History Reviewed.: Yes Medication/Allergy Allergies/Adverse Reactions: hydrocodone [From [place]] Allergy (Verified 07/29/17 16:49) morphine Allergy (Verified 07/29/17 16:49) Review of Systems Constitutional: ABSENT: chills, fever(s), headache(s), weight gain, weight loss Eyes: ABSENT: visual disturbances Ears: ABSENT: hearing changes Cardiovascular: ABSENT: chest pain, dyspnea on exertion, edema, orthropnea, palpitations Respiratory: ABSENT: cough, hemoptysis Gastrointestinal: PRESENT: abdominal pain, nausea, vomiting. ABSENT: constipation, diarrhea, hematemesis, hematochezia Genitourinary: ABSENT: dysuria, hematuria Musculoskeletal: ABSENT: joint swelling Integumentary: ABSENT: rash, wounds Neurological: ABSENT: abnormal gait, abnormal speech, confusion, dizziness, focal weakness, syncope Psychiatric: ABSENT: anxiety, depression, homidical ideation, suicidal ideation Endocrine: ABSENT: cold intolerance, heat intolerance, menstrual abnormalities, polydipsia, polyuria Hematologic/Lymphatic: ABSENT: easy bleeding, easy bruising, lymphadenopathy Physical Exam Vital Signs: Temp Pulse Resp BP Pulse Ox 98.5 F 89 17 158/94 H 99 08/17/17 08:06 08/17/17 08:06 08/17/17 08:06 08/17/17 08:06 08/17/17 08:06 Intake & Output 08/16/17 08/17/17 08/18/17 06:59 06:59 06:59 Weight 57.9 kg General appearance: PRESENT: no acute distress, well-developed, well-nourished Head exam: PRESENT: atraumatic, normocephalic Eye exam: PRESENT: conjunctiva pink, EOMI, PERRLA. ABSENT: scleral icterus Ear exam: PRESENT: normal external ear exam Mouth exam: PRESENT: moist, tongue midline Neck exam: PRESENT: full ROM. ABSENT: carotid bruit, JVD, lymphadenopathy, thyromegaly Respiratory exam: PRESENT: clear to auscultation teddy Cardiovascular exam: PRESENT: RRR. ABSENT: diastolic murmur, rubs, systolic murmur Pulses: PRESENT: normal dorsalis pedis pul, +2 pedal pulses bilateral Vascular exam: PRESENT: normal capillary refill GI/Abdominal exam: PRESENT: normal bowel sounds, soft, tenderness. ABSENT: distended, guarding, mass, organolmegaly, rebound Rectal exam: PRESENT: deferred Extremities exam: ABSENT: pedal edema Musculoskeletal exam: PRESENT: ambulatory Neurological exam: PRESENT: alert, awake, oriented to person, oriented to place , oriented to time, oriented to situation, CN II-XII grossly intact. ABSENT: motor sensory deficit Psychiatric exam: PRESENT: appropriate affect, normal mood. ABSENT: homicidal ideation, suicidal ideation Skin exam: PRESENT: dry, intact, warm. ABSENT: cyanosis, rash Results Impressions: Abdomen CT 08/17/17 00:00 IMPRESSION: Punctate calcifications at the pancreatic head from prior episodes of pancreatitis. No gross peripancreatic inflammation or peripancreatic fluid collections on today's study. Assessment & Plan - Diagnosis (1) Pancreatitis Qualifiers: Chronicity: acute Pancreatitis type: alcohol induced Acute pancreatitis complication: unspecified Qualified Code(s): K85.20 - Alcohol induced acute pancreatitis without necrosis or infection Is this a current diagnosis for this admission?: Yes Plan: Start the patient on IV fluid patient's repeat CT scan of the abdomen and pelvis did not suggest any inflammations consult the GI for further evaluations with this ongoing chronic pancreatitis most likely from alcoholic (2) History of alcoholism Is this a current diagnosis for this admission?: Yes Plan: Patient's currently denied but will continues to patient on thiamine and multivitamin (3) SUBSTANCE DRUG ABUSED Is this a current diagnosis for this admission?: Yes Plan: Patients need a psych consult (4) Chronic kidney disease Qualifiers: Chronic kidney disease stage: stage 2 (mild) Qualified Code(s): N18.2 - Chronic kidney disease, stage 2 (mild) Is this a current diagnosis for this admission?: Yes Plan: Continues IV fluid (5) Hypertension Qualifiers: Hypertension type: essential hypertension Qualified Code(s): I10 - Essential (primary) hypertension Is this a current diagnosis for this admission?: Yes Plan: Continues to current medications (6) Type 2 diabetes mellitus Qualifiers: Diabetes mellitus keno terminal operator insulin use: with chcf use Diabetes mellitus complication status: with hyperglycemia Qualified Code(s): E11.65 - Type 2 diabetes mellitus with hyperglycemia; Z79.4 - terminal system operator (current) use of insulin; Z79.4 - [facility] (current) use of insulin; Z79.4 - [facility] (current ) use of insulin; Z79.4 - [facility] (current) use of insulin Is this a current diagnosis for this admission?: Yes Plan: Patient is very noncompliance with the medications recent A1c was 12 continues to current sliding scale Lantus dietary educations (7) RONIT (acute kidney injury) Is this a current diagnosis for this admission?: Yes Plan: Start the patient on IV fluid (8) Hyperglycemia Is this a current diagnosis for this admission?: Yes Plan: Patients have hyperglycemia without ketoacidosis continues to adjust the insulin - Time Time Spent: 30 to 50 Minutes Medications reviewed and adjusted accordingly: Yes Anticipated discharge: Home Within: Other - Inpatient Certification Medical Necessity: Need Close Monitoring Due to Risk of Patient Decompensation, Need For IV Fluids Post Hospital Care: D/C Air Quality Chemist Documentation - Plan Summary Plan Summary: See other MD orders
--- NOTE | 2017-08-17 12:36 | RADIOLOGY REPORT (SQ) ---
EXAM DESCRIPTION: U/S ABDOMEN COMPLETE W/O DOP COMPLETED DATE/TIME: 08/17/2017 12:05 pm REASON FOR STUDY: abd pain/pancreatatis COMPARISON: Abdominal CT scan dated 08/17/2017 TECHNIQUE: Dynamic and static grayscale images acquired of the abdomen and recorded on PACS. Additio nal selected color Doppler and spectral images recorded. LIMITATIONS: None. FINDINGS: PANCREAS: No masses. No fluid collections. Visualized pancreatic duct normal caliber. LIVER: No masses. Echotexture normal. LIVER VASCULATURE: Normal directional flow of the main portal vein. GALLBLADDER: No stones. Normal wall thickness. No pericholecystic fluid. ULTRASOUND-DETECTED VARGAS'S SIGN: Negative. INTRAHEPATIC DUCTS AND COMMON DUCT: CBD and intrahepatic ducts normal caliber. No filling defects. INFERIOR VENA CAVA: Normal flow. AORTA: No aneurysm. RIGHT KIDNEY: 11.4 cm in length. Normal echogenicity. No solid or suspicious masses. No hydron ephrosis. No calcifications. LEFT KIDNEY: 12.3 cm in length. Normal echogenicity. No solid or suspicious masses. No hydrone phrosis. No calcifications. SPLEEN: Normal size. No solid masses. PERITONEAL AND PLEURAL SPACES: No ascites or effusions. OTHER: No other significant finding. IMPRESSION: No significant intra-abdominal abnormalities were identified. Findings as noted above TECHNICAL DOCUMENTATION: JOB ID: [id number]- All Rights Reserved Reading location - IP/workstation name: [email or web address]
[2017-08-17] MEDS ORDERED: PROPOFOL INJ 200 MG/20 ML VIAL IV ONE (13:02)
[2017-08-17] MEDS ORDERED: ONDANSETRON HCL INJ/PF 4 MG/2 ML SDV IV PRN (13:23)
--- NOTE | 2017-08-17 13:48 | Operative Report ---
Operative Report DATE OF SURGERY: 08/17/17 Operative Report: The risks benefits and alternatives of the procedure explained to the patient in detail and informed consent is obtained.A GIF Olympus video scope was inserted into the patient's mouth and hypopharynx, the esophagus is identified intubated and insufflated ,the scope was then advanced through the esophagus stomach and duodenum, retroflexion maneuver is done, the esophagus stomach and first and second portions of the duodenum examined PREOPERATIVE DIAGNOSIS: Epigastric pain, nausea vomiting POSTOPERATIVE DIAGNOSIS: Gastritis status post biopsy. Duodenitis OPERATION: EGD with biopsy SURGEON: SHINE CANTU ANESTHESIA: LMAC TISSUE REMOVED OR ALTERED: As noted above. COMPLICATIONS: None. ESTIMATED BLOOD LOSS: None. INTRAOPERATIVE FINDINGS: As noted above. No ulcers noted PROCEDURE: Patient tolerated the procedure well. No immediate postprocedure complications are noted. Patient is sent back to her room in good condition. Resume regular diet and advance as tolerated We will wait on biopsies Further recommendations to follow
[2017-08-17] MEDS ORDERED: LISINOPRIL 10 MG TABLET PO ONE (15:00)
[2017-08-17] MEDS ORDERED: (PENDING PHARMACY ID) (Insulin Aspart [Novolog Insulin (Aspart) 100 Unit/Ml] 10 UNITS) SQ SCH (17:00)
[2017-08-17] MEDS ORDERED: AMLODIPINE BESYLATE 5 MG TABLET PO ONE (19:00)
[2017-08-17] MEDS: INSULIN LISPRO 100 UNIT/ML 3 ML VIAL SUBCUT SCH (19:31)
[2017-08-17] MEDS ORDERED: KETOROLAC TROMETHAMINE INJ/PF 30 MG/1 ML SDV IV PRN (20:36)
[2017-08-17] MEDS ORDERED: MAG HYDROX/AL HYDROX/SIMETH SUSP 30 ML UDCUP PO PRN (20:36)
[2017-08-17] MEDS: HYDRALAZINE HCL INJ/PF 20 MG/1 ML SDV IV PRN (20:58)
[2017-08-17] MEDS ORDERED: INSULIN GLARGINE,HUM.REC.ANLOG 1,000 UNIT/10 ML UNIT SUBCUT SCH (22:00)
[2017-08-17] MEDS: ATORVASTATIN CALCIUM 20 MG TABLET PO SCH (23:39)
[2017-08-17] MEDS: METOPROLOL TARTRATE 25 MG TABLET PO SCH (23:39)
[2017-08-17] MEDS: HYDROMORPHONE HCL INJ/PF 2 MG/ML AMPULE IV PRN (23:40)
[2017-08-18] MEDS: HYDROMORPHONE HCL INJ/PF 2 MG/ML AMPULE IV PRN ×2 (06:03→18:38)
[2017-08-18] MEDS: HYDRALAZINE HCL INJ/PF 20 MG/1 ML SDV IV PRN (06:04)
[2017-08-18] MEDS: LANSOPRAZOLE 30 MG TAB.RAP.DR PO SCH (06:09)
[2017-08-18 06:41] LABS: ABSOLUTE MONOCYTES (AUTO) 0.1 10^3/uL (0.1-1.4); ABSOLUTE NEUT (AUTO) 10.5 10^3/uL (1.7-8.2); BASOPHILS % (AUTO) 0.3 % (0-2); HEMATOCRIT 34.8 % (36.0-47.0); HEMOGLOBIN 11.6 g/dL (12.0-15.5); LYMPHOCYTES % (AUTO) 8.5 % (13-45); MEAN CORPUSCULAR HEMOGLOBIN 28.9 pg (27.0-33.4); MEAN CORPUSCULAR HGB CONC 33.3 g/dL (32.0-36.0); MEAN CORPUSCULAR VOLUME 87 fl (80-97); MONOCYTES % (AUTO) 0.9 % (3-13); PLATELET COUNT 319 10^3/uL (150-450); RED BLOOD COUNT 4.02 10^6/uL (3.72-5.28); RED CELL DISTRIBUTION WIDTH 14.2 % (11.5-14.0); SEGMENTED NEUTROPHILS % (AUTO) 90.3 % (42-78); TOTAL CELLS COUNTED % (AUTO) 100 %; WHITE BLOOD COUNT 11.7 10^3/uL (4.0-10.5)
[2017-08-18 06:59] LABS: ALANINE AMINOTRANSFERASE 30 U/L (9-52); ALBUMIN 4.4 g/dL (3.5-5.0); ALKALINE PHOSPHATASE 138 U/L (38-126); ANION GAP 16 (5-19); ASPARTATE AMINO TRANSFERASE 29 U/L (14-36); BILIRUBIN,DIRECT 0.4 mg/dL (0.0-0.4); BILIRUBIN,TOTAL 0.5 mg/dL (0.2-1.3); BLOOD UREA NITROGEN 13 mg/dL (7-20); CALCIUM 9.8 mg/dL (8.4-10.2); CARBON DIOXIDE 26 mmol/L (22-30); CHLORIDE 101 mmol/L (98-107); GLUCOSE 260 mg/dL (75-110); LIPASE 158.2 U/L (23-300); POTASSIUM 3.8 mmol/L (3.6-5.0); SODIUM 142.8 mmol/L (137-145); TOTAL PROTEIN 7.6 g/dL (6.3-8.2)
[2017-08-18] MEDS ORDERED: LORAZEPAM 0.5 MG TABLET PO PRN (08:45)
--- NOTE | 2017-08-18 08:48 | PDOC PROGRESS REPORT ---
Subjective Progress Note for:: 08/18/17 Subjective:: Patient underwent for the endoscopy yesterday with so some gastritis but other than that no other acute finding Patient's lipase is back to the normal Patient's still having some abdominal pain and discomfort Patient have of this chronic pancreatitisIV substance drug abuse and alcoholism' s Patient's blood pressure was elevated last night's patient also was asked with IV pain medications Patients this morning denied any chest pain denied any shortness of the breath Patient does not seems to be any kind of abdominal pain sleep very soundly Reason For Visit: ABD PAIN Physical Exam Vital Signs: Temp Pulse Resp BP Pulse Ox 98.4 F 97 14 143/90 H 98 08/18/17 08:16 08/18/17 08:16 08/18/17 08:16 08/18/17 08:16 08/18/17 08:16 Intake & Output 08/17/17 08/18/17 08/19/17 06:59 06:59 06:59 Intake Total 3322 Output Total 902 Balance 2420 Weight 57.9 kg 57.1 kg General appearance: PRESENT: no acute distress, well-developed, well-nourished Head exam: PRESENT: atraumatic, normocephalic Eye exam: PRESENT: conjunctiva pink, EOMI, PERRLA. ABSENT: scleral icterus Ear exam: PRESENT: normal external ear exam Mouth exam: PRESENT: moist, tongue midline Neck exam: PRESENT: full ROM. ABSENT: carotid bruit, JVD, lymphadenopathy, thyromegaly Respiratory exam: PRESENT: clear to auscultation teddy Cardiovascular exam: PRESENT: RRR. ABSENT: diastolic murmur, rubs, systolic murmur Pulses: PRESENT: normal dorsalis pedis pul, +2 pedal pulses bilateral Vascular exam: PRESENT: normal capillary refill GI/Abdominal exam: PRESENT: normal bowel sounds, soft. ABSENT: distended, guarding, mass, organolmegaly, rebound, tenderness Rectal exam: PRESENT: deferred Extremities exam: ABSENT: pedal edema Musculoskeletal exam: PRESENT: ambulatory Neurological exam: PRESENT: alert, awake, oriented to person, oriented to place , oriented to time, oriented to situation, CN II-XII grossly intact. ABSENT: motor sensory deficit Psychiatric exam: PRESENT: appropriate affect, normal mood. ABSENT: homicidal ideation, suicidal ideation Skin exam: PRESENT: dry, intact, warm. ABSENT: cyanosis, rash Results Laboratory Results: 08/18/17 05:37 08/18/17 05:37 08/18/17 08/18/17 05:37 05:37 WBC 11.7 H RBC 4.02 Hgb 11.6 L Hct 34.8 L MCV 87 MCH 28.9 MCHC 33.3 RDW 14.2 H Plt Count 319 Seg Neutrophils % 90.3 H Lymphocytes % 8.5 L Monocytes % 0.9 L Eosinophils % 0.0 Basophils % 0.3 Absolute Neutrophils 10.5 H Absolute Lymphocytes 1.0 Absolute Monocytes 0.1 Absolute Eosinophils 0.0 Absolute Basophils 0.0 Sodium 142.8 Potassium 3.8 Chloride 101 Carbon Dioxide 26 Anion Gap 16 BUN 13 Creatinine 0.84 Est GFR ( Amer) > 60 Est GFR (Non-Af Amer) > 60 Glucose 260 H Calcium 9.8 Total Bilirubin 0.5 AST 29 ALT 30 Alkaline Phosphatase 138 H Total Protein 7.6 Albumin 4.4 Lipase 158.2 Impressions: Abdomen CT 08/17/17 00:00 IMPRESSION: Punctate calcifications at the pancreatic head from prior episodes of pancreatitis. No gross peripancreatic inflammation or peripancreatic fluid collections on today's study. Abdomen Ultrasound 08/17/17 00:00 IMPRESSION: No significant intra-abdominal abnormalities were identified. Findings as noted above Assessment & Plan - Diagnosis (1) Pancreatitis Qualifiers: Chronicity: acute Pancreatitis type: alcohol induced Acute pancreatitis complication: unspecified Qualified Code(s): K85.20 - Alcohol induced acute pancreatitis without necrosis or infection Is this a current diagnosis for this admission?: Yes Plan: Patient with alcoholic pancreatitis currently all resolved but still have a chronically start the patient on pancreatic enzymes with each meal (2) History of alcoholism Is this a current diagnosis for this admission?: Yes Plan: Start the patient on thiamine supplements and multivitamins (3) SUBSTANCE DRUG ABUSED Is this a current diagnosis for this admission?: Yes Plan: Consult the psych for further evaluations Discussed with the patient about not using any narcotics may be considered to start the patient on the gabapentin for the chronic pain (4) Chronic kidney disease Qualifiers: Chronic kidney disease stage: stage 2 (mild) Qualified Code(s): N18.2 - Chronic kidney disease, stage 2 (mild) Is this a current diagnosis for this admission?: Yes Plan: Currently all stable (5) Hypertension Qualifiers: Hypertension type: essential hypertension Qualified Code(s): I10 - Essential (primary) hypertension Is this a current diagnosis for this admission?: Yes Plan: At the [place] 5 mg p.o. twice a day continues on lisinopril (6) Type 2 diabetes mellitus Qualifiers: Diabetes mellitus mcc insulin use: with mcc use Diabetes mellitus complication status: with hyperglycemia Qualified Code(s): E11.65 - Type 2 diabetes mellitus with hyperglycemia; Z79.4 - salvage determiner (current) use of insulin; Z79.4 - salvage determiner (current) use of insulin; Z79.4 - [facility] (current ) use of insulin; Z79.4 - salvage determiner (current) use of insulin Is this a current diagnosis for this admission?: Yes Plan: Itches the insulin (7) RONIT (acute kidney injury) Is this a current diagnosis for this admission?: Yes Plan: Start the patient on IV fluid (8) Hyperglycemia Is this a current diagnosis for this admission?: Yes Plan: Patients have hyperglycemia without ketoacidosis continues to adjust the insulin - Time Time Spent with patient: 15-24 minutes Medications reviewed and adjusted accordingly: Yes Anticipated discharge: Home Within: within 24 hours - Inpatient Certification Medical Necessity: Need Close Monitoring Due to Risk of Patient Decompensation Post Hospital Care: D/C Licensed Practical Nurse Instructor Documentation - Plan Summary Plan Summary: Will start the patient with pancreatic enzymes start the patient on PPI and start the patient on the gabapentin to avoid the IV pain medications Try to avoid the narcotics Advance the diet as tolerated
[2017-08-18] MEDS: INSULIN LISPRO 100 UNIT/ML 3 ML VIAL SUBCUT PRN ×2 (09:49→11:36)
[2017-08-18] MEDS: INSULIN LISPRO 100 UNIT/ML 3 ML VIAL SUBCUT SCH ×3 (09:49→17:28)
[2017-08-18] MEDS: LISINOPRIL 10 MG TABLET PO SCH (09:51)
[2017-08-18] MEDS: METOPROLOL TARTRATE 25 MG TABLET PO SCH ×2 (09:51→21:02)
[2017-08-18] MEDS: THIAMINE HCL 100 MG TABLET PO SCH (09:51)
[2017-08-18] MEDS: AMLODIPINE BESYLATE 5 MG TABLET PO SCH ×2 (09:51→21:02)
[2017-08-18] MEDS: ENOXAPARIN SODIUM INJ 40 MG/0.4 ML DISP.SYRIN SUBCUT SCH (09:51)
[2017-08-18] MEDS: MULTIVITAMIN TABLET PO SCH (09:51)
[2017-08-18] MEDS ORDERED: INSULIN GLARGINE,HUM.REC.ANLOG 1,000 UNIT/10 ML UNIT SUBCUT SCH ×2 (10:00→22:00)
[2017-08-18] MEDS ORDERED: (PENDING PHARMACY ID) (Lisinopril [Zestril] 40 MG) PO SCH (10:00)
[2017-08-18] MEDS: INSULIN GLARGINE,HUM.REC.ANLOG 300 UNIT/3 ML INSULN.PEN SUBCUT SCH (10:06)
[2017-08-18] MEDS ORDERED: ONDANSETRON 4 MG TAB.RAPDIS PO PRN (10:30)
[2017-08-18] MEDS: OXYCODONE-ACETAMINOPHEN 5-325 MG TABLET PO PRN (11:27)
[2017-08-18] MEDS: GABAPENTIN 100 MG CAPSULE PO SCH ×2 (13:17→21:02)
--- NOTE | 2017-08-18 14:15 | PSYCHOLOGICAL NOTE ---
Psych Note - Psych Note Psych Note: Reason for Consult: substance abuse 36-year-old female with chronic pancreatitis, hypertension, type 2 diabetes, hyperlipidemia, previous IV drug abuse presents with complaint of epigastric abdominal pain that started 2 days prior to arrival. Patient discloses that she is at [facility] because she was "throwing up." She states she knows that she has pancreatitis but is unsure if that is why she was throwing up. She denies substance abuse disclosing that she does use marijuana "every once in a while." She continued to report that she "used to be an alcoholic" however states that her last time she drank was approximately 5-6 years ago. She reports she has been mental health diagnosis of bipolar and ADHD but denies taking any medications for this because "I do not like the way they make me feel." She expresses her frustration surrounding her illness stating that she just got out of the hospital prior to moving to [place] "why am I staying sick?" She reports that she does not eat anything fried, eats fish and salad every day. Patient states "I am tired of being sick I have 3 girls that need me but I am so tired of always fighting my illness." Patient is alert and orientated to person, place, time and circumstance. Mood is euthymic with congruent affect. Patient is noted to become slightly tearful when discussing her emotions surrounding her illness. Patient denies suicidal homicidal ideation. Delusions are absent and behaviors congruent with an intact reality based presentation i.e. organized and linear thought process. Eye contact is well-maintained. Conversational speech was within normal rate, tone and prosody. Attention and concentration are good. Intellectual abilities appear to be within average range. Insight, judgment, impulse control are fair. Patient recommendations per [facility] was contracted psychiatrist Dr. Pedro MEDEIROS are as follows 1. Zyprexa 2.5 mg twice daily 296.80 (3 1.9) unspecified bipolar and related disorder per history provided by patient Impression\\plan: Patient is cleared from acute psychiatric services. Patient does not meet IVC criteria per [place] GS 122C. Patient denies substance use history ; however, does admit to occasional use of marijuana. Toxicology report indicates patient was positive for opiates and marijuana. Behavior health team contacted patient's pharmacy. It is noted the patient was prescribed Percocet on 07/22/2017 and then 07/29/2017. Patient states it has been over 5 years since her last drink of alcohol; toxicology reports indicates no alcohol in her system upon arrival. Patient disclosed that she would take medication to manage her bipolar. Medication recommendations have been provided. Dr. Rivera was consulted and the care and management of this patient.
[2017-08-18] MEDS: LIPASE/PROTEASE/AMYLASE 1 CAP CAPSULE.DR PO SCH (17:26)
[2017-08-18] MEDS: DIPHENHYDRAMINE HCL 25 MG CAPSULE PO PRN (20:26)
[2017-08-18] MEDS: ATORVASTATIN CALCIUM 20 MG TABLET PO SCH (21:03)
[2017-08-19 04:49] LABS: ABSOLUTE BASOPHILS # (AUTO) 0.1 10^3/uL (0.0-0.2); ABSOLUTE EOSINOPHILS # (AUTO) 0.1 10^3/uL (0.0-0.6); ABSOLUTE LYMPHOCYTES (AUTO) 3.4 10^3/uL (0.5-4.7); ABSOLUTE MONOCYTES (AUTO) 0.7 10^3/uL (0.1-1.4); ABSOLUTE NEUT (AUTO) 3.4 10^3/uL (1.7-8.2); BASOPHILS % (AUTO) 0.8 % (0-2); EOSINOPHILS % (AUTO) 0.7 % (0-6); HEMATOCRIT 29.9 % (36.0-47.0); HEMOGLOBIN 10.1 g/dL (12.0-15.5); LYMPHOCYTES % (AUTO) 44.7 % (13-45); MEAN CORPUSCULAR HEMOGLOBIN 29.1 pg (27.0-33.4); MEAN CORPUSCULAR HGB CONC 33.6 g/dL (32.0-36.0); MEAN CORPUSCULAR VOLUME 87 fl (80-97); MONOCYTES % (AUTO) 9.6 % (3-13); PLATELET COUNT 302 10^3/uL (150-450); RED BLOOD COUNT 3.46 10^6/uL (3.72-5.28); RED CELL DISTRIBUTION WIDTH 14.4 % (11.5-14.0); SEGMENTED NEUTROPHILS % (AUTO) 44.2 % (42-78); TOTAL CELLS COUNTED % (AUTO) 100 %; WHITE BLOOD COUNT 7.7 10^3/uL (4.0-10.5)
[2017-08-19 05:12] LABS: ANION GAP 10 (5-19); BLOOD UREA NITROGEN 25 mg/dL (7-20); CALCIUM 9.1 mg/dL (8.4-10.2); CARBON DIOXIDE 29 mmol/L (22-30); CHLORIDE 104 mmol/L (98-107); GLUCOSE 65 mg/dL (75-110); LIPASE 176.5 U/L (23-300); POTASSIUM 3.4 mmol/L (3.6-5.0); SODIUM 142.7 mmol/L (137-145)
[2017-08-19] MEDS: LANSOPRAZOLE 30 MG TAB.RAP.DR PO SCH (05:59)
[2017-08-19] MEDS: GABAPENTIN 100 MG CAPSULE PO SCH ×3 (05:59→21:00)
[2017-08-19] MEDS: HYDROMORPHONE HCL INJ/PF 2 MG/ML AMPULE IV PRN ×4 (06:20→23:26)
[2017-08-19] MEDS: LIPASE/PROTEASE/AMYLASE 1 CAP CAPSULE.DR PO SCH ×2 (08:00→15:02)
[2017-08-19] MEDS: ENOXAPARIN SODIUM INJ 40 MG/0.4 ML DISP.SYRIN SUBCUT SCH ×2 (10:48→11:11)
[2017-08-19] MEDS: AMLODIPINE BESYLATE 5 MG TABLET PO SCH ×2 (10:53→21:00)
[2017-08-19] MEDS: METOPROLOL TARTRATE 25 MG TABLET PO SCH ×2 (10:58→21:01)
[2017-08-19] MEDS: MULTIVITAMIN TABLET PO SCH (10:59)
[2017-08-19] MEDS: OXYCODONE-ACETAMINOPHEN 5-325 MG TABLET PO PRN ×2 (10:59→22:34)
[2017-08-19] MEDS: LISINOPRIL 10 MG TABLET PO SCH (11:01)
[2017-08-19] MEDS: THIAMINE HCL 100 MG TABLET PO SCH (11:05)
[2017-08-19] MEDS: INSULIN GLARGINE,HUM.REC.ANLOG 300 UNIT/3 ML INSULN.PEN SUBCUT SCH ×2 (11:11→21:01)
[2017-08-19] MEDS: INSULIN LISPRO 100 UNIT/ML 3 ML VIAL SUBCUT PRN ×2 (11:29→16:44)
--- NOTE | 2017-08-19 13:13 | PDOC PROGRESS REPORT ---
Subjective Progress Note for:: 08/19/17 Subjective:: Patient is currently feeling better Will have ongoing epigastric discomfort but other than that no nausea no vomiting Since blood pressure is currently stable Episode of the low blood sugars Currently hold the insulin and adjust the dose Reason For Visit: ABD PAIN Physical Exam Vital Signs: Temp Pulse Resp BP Pulse Ox 97.6 F 91 17 156/99 H 100 08/19/17 11:15 08/19/17 11:15 08/19/17 11:15 08/19/17 11:15 08/19/17 11:15 Intake & Output 08/18/17 08/19/17 08/20/17 06:59 06:59 06:59 Intake Total 3322 2377 Output Total 902 450 Balance 2420 1927 Weight 57.1 kg 59.1 kg General appearance: PRESENT: no acute distress, well-developed, well-nourished Head exam: PRESENT: atraumatic, normocephalic Eye exam: PRESENT: conjunctiva pink, EOMI, PERRLA. ABSENT: scleral icterus Ear exam: PRESENT: normal external ear exam Mouth exam: PRESENT: moist, tongue midline Neck exam: PRESENT: full ROM. ABSENT: carotid bruit, JVD, lymphadenopathy, thyromegaly Respiratory exam: PRESENT: clear to auscultation teddy Cardiovascular exam: PRESENT: RRR. ABSENT: diastolic murmur, rubs, systolic murmur Pulses: PRESENT: normal dorsalis pedis pul, +2 pedal pulses bilateral Vascular exam: PRESENT: normal capillary refill GI/Abdominal exam: PRESENT: normal bowel sounds, soft. ABSENT: distended, guarding, mass, organolmegaly, rebound, tenderness Rectal exam: PRESENT: deferred Extremities exam: ABSENT: pedal edema Musculoskeletal exam: PRESENT: ambulatory Neurological exam: PRESENT: alert, awake, oriented to person, oriented to place , oriented to time, oriented to situation, CN II-XII grossly intact. ABSENT: motor sensory deficit Psychiatric exam: PRESENT: appropriate affect, normal mood. ABSENT: homicidal ideation, suicidal ideation Skin exam: PRESENT: dry, intact, warm. ABSENT: cyanosis, rash Results Laboratory Results: 08/19/17 03:58 08/19/17 03:58 08/19/17 08/19/17 03:58 03:58 WBC 7.7 RBC 3.46 L Hgb 10.1 L Hct 29.9 L MCV 87 MCH 29.1 MCHC 33.6 RDW 14.4 H Plt Count 302 Seg Neutrophils % 44.2 Lymphocytes % 44.7 Monocytes % 9.6 Eosinophils % 0.7 Basophils % 0.8 Absolute Neutrophils 3.4 Absolute Lymphocytes 3.4 Absolute Monocytes 0.7 Absolute Eosinophils 0.1 Absolute Basophils 0.1 Sodium 142.7 Potassium 3.4 L Chloride 104 Carbon Dioxide 29 Anion Gap 10 BUN 25 H Creatinine 1.65 H Est GFR ( Amer) 43 L Est GFR (Non-Af Amer) 35 L Glucose 65 L Calcium 9.1 Lipase 176.5 Impressions: Abdomen CT 08/17/17 00:00 IMPRESSION: Punctate calcifications at the pancreatic head from prior episodes of pancreatitis. No gross peripancreatic inflammation or peripancreatic fluid collections on today's study. Abdomen Ultrasound 08/17/17 00:00 IMPRESSION: No significant intra-abdominal abnormalities were identified. Findings as noted above Assessment & Plan - Diagnosis (1) Pancreatitis Qualifiers: Chronicity: acute Pancreatitis type: alcohol induced Acute pancreatitis complication: unspecified Qualified Code(s): K85.20 - Alcohol induced acute pancreatitis without necrosis or infection Is this a current diagnosis for this admission?: Yes Plan: Patient with alcoholic pancreatitis currently all resolved but still have a chronically start the patient on pancreatic enzymes with each meal (2) History of alcoholism Is this a current diagnosis for this admission?: Yes Plan: Start the patient on thiamine supplements and multivitamins (3) SUBSTANCE DRUG ABUSED Is this a current diagnosis for this admission?: Yes Plan: Psych consult was done and suggest follow outpatients we did a Zyprexa 2.5 mg twice a day (4) Chronic kidney disease Qualifiers: Chronic kidney disease stage: stage 2 (mild) Qualified Code(s): N18.2 - Chronic kidney disease, stage 2 (mild) Is this a current diagnosis for this admission?: Yes Plan: Patients did not follow outpatients nephrology patient ultrasound recently all stable (5) Hypertension Qualifiers: Hypertension type: essential hypertension Qualified Code(s): I10 - Essential (primary) hypertension Is this a current diagnosis for this admission?: Yes Plan: At the Norvasc 5 mg p.o. twice a day (6) Type 2 diabetes mellitus Qualifiers: Diabetes mellitus residential insulin use: with intermission coordinator use Diabetes mellitus complication status: with hyperglycemia Qualified Code(s): E11.65 - Type 2 diabetes mellitus with hyperglycemia; Z79.4 - senior living (current) use of insulin; Z79.4 - salvage determiner (current) use of insulin; Z79.4 - senior living (current ) use of insulin; Z79.4 - salvage determiner (current) use of insulin Is this a current diagnosis for this admission?: Yes Plan: Patient had a very labile blood sugar because of the noncompliance will adjust insulin (7) RONIT (acute kidney injury) Is this a current diagnosis for this admission?: Yes Plan: Will give IV fluid (8) Hyperglycemia Is this a current diagnosis for this admission?: Yes - Time Time Spent with patient: 15-24 minutes Medications reviewed and adjusted accordingly: Yes Anticipated discharge: Home Within: Other - Inpatient Certification Medical Necessity: Need Close Monitoring Due to Risk of Patient Decompensation, Need For IV Fluids Post Hospital Care: D/C Supervisor Sheet Manufacturing Documentation - Plan Summary Plan Summary: Continues to current medications
[2017-08-19 16:39] LABS: ANION GAP 10 (5-19); BLOOD UREA NITROGEN 25 mg/dL (7-20); CALCIUM 9.3 mg/dL (8.4-10.2); CARBON DIOXIDE 26 mmol/L (22-30); CHLORIDE 104 mmol/L (98-107); GLUCOSE 235 mg/dL (75-110); POTASSIUM 4.2 mmol/L (3.6-5.0); SODIUM 139.6 mmol/L (137-145)
[2017-08-19 17:56] LABS: APPEARANCE,URINE CLOUDY; BILIRUBIN,URINE NEGATIVE (NEGATIVE); COLOR,URINE YELLOW; GLUCOSE, URINE >=500 mg/dL (NEGATIVE); KETONES,URINE NEGATIVE (NEGATIVE); LEUKOCYTE ESTERASE,URINE NEGATIVE (NEGATIVE); NITRITE,URINE NEGATIVE (NEGATIVE); PROTEIN,URINE 100 mg/dL (NEGATIVE); URINE SPECIFIC GRAVITY 1.021; UROBILINOGEN,URINE NEGATIVE mg/dL (<2.0)
[2017-08-19] MEDS: ATORVASTATIN CALCIUM 20 MG TABLET PO SCH (21:00)
[2017-08-20] MEDS: LANSOPRAZOLE 30 MG TAB.RAP.DR PO SCH (05:39)
[2017-08-20] MEDS: GABAPENTIN 100 MG CAPSULE PO SCH ×3 (05:39→21:13)
[2017-08-20] MEDS: OXYCODONE-ACETAMINOPHEN 5-325 MG TABLET PO PRN (05:58)
[2017-08-20 07:02] LABS: ANION GAP 9 (5-19); BLOOD UREA NITROGEN 27 mg/dL (7-20); CALCIUM 9.1 mg/dL (8.4-10.2); CARBON DIOXIDE 27 mmol/L (22-30); CHLORIDE 104 mmol/L (98-107); GLUCOSE 300 mg/dL (75-110); LIPASE 206.4 U/L (23-300); POTASSIUM 4.6 mmol/L (3.6-5.0); SODIUM 140.4 mmol/L (137-145)
[2017-08-20 07:09] LABS: ABSOLUTE BASOPHILS # (AUTO) 0.1 10^3/uL (0.0-0.2); ABSOLUTE LYMPHOCYTES (AUTO) 2.7 10^3/uL (0.5-4.7); ABSOLUTE MONOCYTES (AUTO) 0.5 10^3/uL (0.1-1.4); ABSOLUTE NEUT (AUTO) 2.1 10^3/uL (1.7-8.2); BASOPHILS % (AUTO) 1.3 % (0-2); EOSINOPHILS % (AUTO) 0.9 % (0-6); HEMATOCRIT 31.1 % (36.0-47.0); HEMOGLOBIN 10.3 g/dL (12.0-15.5); LYMPHOCYTES % (AUTO) 49.5 % (13-45); MEAN CORPUSCULAR HEMOGLOBIN 28.9 pg (27.0-33.4); MEAN CORPUSCULAR HGB CONC 33.2 g/dL (32.0-36.0); MEAN CORPUSCULAR VOLUME 87 fl (80-97); MONOCYTES % (AUTO) 9.5 % (3-13); PLATELET COUNT 295 10^3/uL (150-450); RED BLOOD COUNT 3.57 10^6/uL (3.72-5.28); RED CELL DISTRIBUTION WIDTH 14.3 % (11.5-14.0); SEGMENTED NEUTROPHILS % (AUTO) 38.8 % (42-78); TOTAL CELLS COUNTED % (AUTO) 100 %; WHITE BLOOD COUNT 5.4 10^3/uL (4.0-10.5)
[2017-08-20] MEDS: HYDROMORPHONE HCL INJ/PF 2 MG/ML AMPULE IV PRN ×3 (07:25→18:48)
[2017-08-20] MEDS: LISINOPRIL 10 MG TABLET PO SCH (09:47)
[2017-08-20] MEDS: MULTIVITAMIN TABLET PO SCH (09:47)
[2017-08-20] MEDS: AMLODIPINE BESYLATE 5 MG TABLET PO SCH ×2 (09:49→21:12)
[2017-08-20] MEDS: LIPASE/PROTEASE/AMYLASE 1 CAP CAPSULE.DR PO SCH ×2 (09:49→16:59)
[2017-08-20] MEDS: THIAMINE HCL 100 MG TABLET PO SCH (09:49)
[2017-08-20] MEDS: METOPROLOL TARTRATE 25 MG TABLET PO SCH ×2 (09:49→21:13)
[2017-08-20] MEDS: INSULIN LISPRO 100 UNIT/ML 3 ML VIAL SUBCUT PRN ×2 (12:36→16:59)
--- NOTE | 2017-08-20 15:10 | PDOC PROGRESS REPORT ---
Subjective Progress Note for:: 08/20/17 Subjective:: Patient was admitted for the management of acute pancreatitis, alcohol-related, she has been experiencing fluctuations in her blood glucose Reason For Visit: ABD PAIN Physical Exam Vital Signs: Temp Pulse Resp BP Pulse Ox 98.5 F 83 16 166/97 H 98 08/20/17 11:29 08/20/17 11:29 08/20/17 11:29 08/20/17 11:29 08/20/17 11:29 Intake & Output 08/19/17 08/20/17 08/21/17 06:59 06:59 06:59 Intake Total 2377 2486 905 Output Total 808 434 5239 Balance 1927 2036 -195 Weight 59.1 kg 59 kg General appearance: PRESENT: no acute distress Eye exam: PRESENT: PERRLA Respiratory exam: PRESENT: clear to auscultation teddy Cardiovascular exam: PRESENT: +S1, +S2 GI/Abdominal exam: PRESENT: soft Results Laboratory Results: 08/20/17 06:00 08/20/17 06:00 08/19/17 08/19/17 08/19/17 14:48 16:01 17:32 WBC RBC Hgb Hct MCV MCH MCHC RDW Plt Count Seg Neutrophils % Lymphocytes % Monocytes % Eosinophils % Basophils % Absolute Neutrophils Absolute Lymphocytes Absolute Monocytes Absolute Eosinophils Absolute Basophils Sodium Cancelled 139.6 Potassium Cancelled 4.2 Chloride Cancelled 104 Carbon Dioxide Cancelled 26 Anion Gap Cancelled 10 BUN Cancelled 25 H Creatinine Cancelled 1.35 H Est GFR ( Amer) Cancelled 54 L Est GFR (Non-Af Amer) Cancelled 44 L Glucose Cancelled 235 H Calcium Cancelled 9.3 Lipase Urine Color YELLOW Urine Appearance CLOUDY Urine pH 5.0 Ur Specific [place] 1.021 Urine Protein 100 H Urine Glucose (UA) >=500 H Urine Ketones NEGATIVE Urine Blood NEGATIVE Urine Nitrite NEGATIVE Ur Leukocyte Esterase NEGATIVE Urine WBC (Auto) 10 Urine RBC (Auto) 9 08/20/17 08/20/17 06:00 06:00 WBC 5.4 RBC 3.57 L Hgb 10.3 L Hct 31.1 L MCV 87 MCH 28.9 MCHC 33.2 RDW 14.3 H Plt Count 295 Seg Neutrophils % 38.8 L Lymphocytes % 49.5 H Monocytes % 9.5 Eosinophils % 0.9 Basophils % 1.3 Absolute Neutrophils 2.1 Absolute Lymphocytes 2.7 Absolute Monocytes 0.5 Absolute Eosinophils 0.0 Absolute Basophils 0.1 Sodium 140.4 Potassium 4.6 Chloride 104 Carbon Dioxide 27 Anion Gap 9 BUN 27 H Creatinine 1.40 H Est GFR ( Amer) 51 L Est GFR (Non-Af Amer) 43 L Glucose 300 H Calcium 9.1 Lipase 206.4 Urine Color Urine Appearance Urine pH Ur Specific [place] Urine Protein Urine Glucose (UA) Urine Ketones Urine Blood Urine Nitrite Ur Leukocyte Esterase Urine WBC (Auto) Urine RBC (Auto) Impressions: Abdomen CT 08/17/17 00:00 IMPRESSION: Punctate calcifications at the pancreatic head from prior episodes of pancreatitis. No gross peripancreatic inflammation or peripancreatic fluid collections on today's study. Abdomen Ultrasound 08/17/17 00:00 IMPRESSION: No significant intra-abdominal abnormalities were identified. Findings as noted above Assessment & Plan - Diagnosis (1) Acute pancreatitis Qualifiers: Pancreatitis type: alcohol induced Acute pancreatitis complication: no infection or necrosis Qualified Code(s): K85.20 - Alcohol induced acute pancreatitis without necrosis or infection Is this a current diagnosis for this admission?: Yes Plan: Continue treatment (2) Type 2 diabetes mellitus Qualifiers: Diabetes mellitus termite exterminator helper insulin use: with fdc use Diabetes mellitus complication status: with hyperglycemia Qualified Code(s): E11.65 - Type 2 diabetes mellitus with hyperglycemia; Z79.4 - [facility] (current) use of insulin; Z79.4 - [facility] (current) use of insulin; Z79.4 - [facility] (current ) use of insulin; Z79.4 - [facility] (current) use of insulin Is this a current diagnosis for this admission?: Yes
[2017-08-20] MEDS: ATORVASTATIN CALCIUM 20 MG TABLET PO SCH (21:12)
[2017-08-20] MEDS: INSULIN GLARGINE,HUM.REC.ANLOG 300 UNIT/3 ML INSULN.PEN SUBCUT SCH (21:13)
[2017-08-21] MEDS: HYDROMORPHONE HCL INJ/PF 2 MG/ML AMPULE IV PRN ×5 (00:56→20:00)
[2017-08-21 06:16] LABS: ANION GAP 6 (5-19); BLOOD UREA NITROGEN 28 mg/dL (7-20); CARBON DIOXIDE 27 mmol/L (22-30); CHLORIDE 107 mmol/L (98-107); POTASSIUM 5.5 mmol/L (3.6-5.0); SODIUM 140.3 mmol/L (137-145)
[2017-08-21 06:56] LABS: GLUCOSE 437 mg/dL (75-110)
[2017-08-21] MEDS: INSULIN LISPRO 100 UNIT/ML 3 ML VIAL SUBCUT PRN ×3 (06:59→16:41)
[2017-08-21] MEDS: GABAPENTIN 100 MG CAPSULE PO SCH ×3 (06:59→21:21)
[2017-08-21] MEDS: LANSOPRAZOLE 30 MG TAB.RAP.DR PO SCH (06:59)
[2017-08-21] MEDS: LIPASE/PROTEASE/AMYLASE 1 CAP CAPSULE.DR PO SCH ×2 (09:37→16:41)
[2017-08-21] MEDS: ENOXAPARIN SODIUM INJ 40 MG/0.4 ML DISP.SYRIN SUBCUT SCH (09:37)
[2017-08-21] MEDS: LISINOPRIL 10 MG TABLET PO SCH (09:37)
[2017-08-21] MEDS: THIAMINE HCL 100 MG TABLET PO SCH (09:38)
[2017-08-21] MEDS: NORMAL SALINE 1000 ML 1,000 ML IV PRN (09:38)
[2017-08-21] MEDS: MULTIVITAMIN TABLET PO SCH (09:38)
[2017-08-21] MEDS: AMLODIPINE BESYLATE 5 MG TABLET PO SCH ×2 (09:38→21:21)
[2017-08-21] MEDS: METOPROLOL TARTRATE 25 MG TABLET PO SCH ×2 (09:38→21:22)
--- NOTE | 2017-08-21 16:04 | PDOC PROGRESS REPORT ---
Subjective Progress Note for:: 08/21/17 Subjective:: Patient was admitted for the management of acute pancreatitis, alcohol-related, she has been experiencing fluctuations in her blood glucose Reason For Visit: ABD PAIN Physical Exam Vital Signs: Temp Pulse Resp BP Pulse Ox 98.4 F 86 16 163/92 H 100 08/21/17 15:57 08/21/17 15:57 08/21/17 15:57 08/21/17 15:57 08/21/17 15:57 Intake & Output 08/20/17 08/21/17 08/22/17 06:59 06:59 06:59 Intake Total 2486 3247 Output Total 450 1800 Balance 2036 1447 Weight 59 kg 63.7 kg General appearance: PRESENT: no acute distress Eye exam: PRESENT: PERRLA Respiratory exam: PRESENT: clear to auscultation teddy Cardiovascular exam: PRESENT: +S1, +S2 GI/Abdominal exam: PRESENT: soft Neurological exam: PRESENT: alert Results Laboratory Results: 08/20/17 06:00 08/21/17 04:08 08/21/17 04:08 Sodium 140.3 Potassium 5.5 H Chloride 107 Carbon Dioxide 27 Anion Gap 6 BUN 28 H Creatinine 1.57 H Est GFR ( Amer) 45 L Est GFR (Non-Af Amer) 37 L Glucose 437 H* Calcium 9.0 08/19/17 17:32 Clean Catch Midstream Urine Culture - Final Gardnerella Vaginalis Impressions: Abdomen CT 08/17/17 00:00 IMPRESSION: Punctate calcifications at the pancreatic head from prior episodes of pancreatitis. No gross peripancreatic inflammation or peripancreatic fluid collections on today's study. Abdomen Ultrasound 08/17/17 00:00 IMPRESSION: No significant intra-abdominal abnormalities were identified. Findings as noted above Assessment & Plan - Diagnosis (1) Acute pancreatitis Qualifiers: Pancreatitis type: alcohol induced Acute pancreatitis complication: no infection or necrosis Qualified Code(s): K85.20 - Alcohol induced acute pancreatitis without necrosis or infection Is this a current diagnosis for this admission?: Yes (2) Type 2 diabetes mellitus Qualifiers: Diabetes mellitus language pathologist insulin use: with detention use Diabetes mellitus complication status: with hyperglycemia Qualified Code(s): E11.65 - Type 2 diabetes mellitus with hyperglycemia; Z79.4 - assembly inspector helper (current) use of insulin; Z79.4 - [facility] (current) use of insulin; Z79.4 - [facility] (current ) use of insulin; Z79.4 - [facility] (current) use of insulin Is this a current diagnosis for this admission?: Yes
[2017-08-21] MEDS: HYDRALAZINE HCL INJ/PF 20 MG/1 ML SDV IV PRN (20:33)
[2017-08-21] MEDS: ATORVASTATIN CALCIUM 20 MG TABLET PO SCH (21:21)
[2017-08-21] MEDS: INSULIN GLARGINE,HUM.REC.ANLOG 300 UNIT/3 ML INSULN.PEN SUBCUT SCH (21:21)
[2017-08-21] MEDS: OXYCODONE-ACETAMINOPHEN 5-325 MG TABLET PO PRN (21:25)
[2017-08-22] MEDS: HYDROMORPHONE HCL INJ/PF 2 MG/ML AMPULE IV PRN (02:11)
[2017-08-22] MEDS: NORMAL SALINE 1000 ML 1,000 ML IV PRN (02:11)
[2017-08-22] MEDS: DIPHENHYDRAMINE HCL 25 MG CAPSULE PO PRN (02:34)
[2017-08-22 05:52] LABS: ANION GAP 8 (5-19); BLOOD UREA NITROGEN 25 mg/dL (7-20); CALCIUM 9.4 mg/dL (8.4-10.2); CARBON DIOXIDE 29 mmol/L (22-30); CHLORIDE 102 mmol/L (98-107); GLUCOSE 238 mg/dL (75-110); POTASSIUM 4.7 mmol/L (3.6-5.0); SODIUM 138.6 mmol/L (137-145)
[2017-08-22] MEDS: LANSOPRAZOLE 30 MG TAB.RAP.DR PO SCH (05:52)
[2017-08-22] MEDS: GABAPENTIN 100 MG CAPSULE PO SCH ×3 (05:52→21:37)
[2017-08-22] MEDS: INSULIN LISPRO 100 UNIT/ML 3 ML VIAL SUBCUT PRN ×3 (09:08→22:29)
[2017-08-22] MEDS: AMLODIPINE BESYLATE 5 MG TABLET PO SCH ×2 (09:08→21:37)
[2017-08-22] MEDS: MULTIVITAMIN TABLET PO SCH (09:08)
[2017-08-22] MEDS: LISINOPRIL 10 MG TABLET PO SCH (09:08)
[2017-08-22] MEDS: METOPROLOL TARTRATE 25 MG TABLET PO SCH (09:08)
[2017-08-22] MEDS: ENOXAPARIN SODIUM INJ 40 MG/0.4 ML DISP.SYRIN SUBCUT SCH (09:08)
[2017-08-22] MEDS: THIAMINE HCL 100 MG TABLET PO SCH (09:08)
--- NOTE | 2017-08-22 10:14 | RADIOLOGY REPORT (SQ) ---
EXAM DESCRIPTION: CT ABD/PELVIS NO ORAL OR IV COMPLETED DATE/TIME: 08/22/2017 9:27 am REASON FOR STUDY: abd pain COMPARISON: CT abdomen pelvis 08/17/2017, 07/11/2017 TECHNIQUE: CT scan of the abdomen and pelvis performed without intravenous or oral contrast. Images reviewed with lung, soft tissue, and bone windows. Reconstructed coronal and sagittal MPR images revi ewed. All images stored on PACS. All CT scanners at this facility use dose modulation, iterative reconstruction, and/or weight based d osing when appropriate to reduce radiation dose to as low as reasonably achievable (ALARA). [facility]: Dose Right [facility]: CareDose [facility]: Dose Right [facility]: Teradose 4D [facility]: [place] RADIATION DOSE: CT Rad equipment meets quality standard of care and radiation dose reduction techniq ues were employed. CTDIvol: 3.5 mGy. DLP: 179 mGy-cm.mGy. LIMITATIONS: No oral or IV contrast FINDINGS: LOWER CHEST: No significant findings. No nodules or infiltrates. NON-CONTRASTED LIVER, SPLEEN, ADRENALS: Evaluation limited by lack of IV contrast. No identified sign ificant masses. PANCREAS: No masses. No peripancreatic inflammatory changes. Few punctate calcifications along the p ancreatic head on today's study. GALLBLADDER: No identified stones by CT criteria. No inflammatory changes to suggest cholecystitis. RIGHT KIDNEY AND URETER: No suspicious masses. Assessment limited by lack of IV contrast. No signif icant calcifications. No hydronephrosis or hydroureter. LEFT KIDNEY AND URETER: No suspicious masses. Assessment limited by lack of IV contrast. No signifi cant calcifications. No hydronephrosis or hydroureter. AORTA AND RETROPERITONEUM: No aneurysm. No retroperitoneal masses or adenopathy. BOWEL AND PERITONEAL CAVITY: Large amount of stool throughout the colon. Otherwise unremarkable radha l gas pattern. No free intraperitoneal air or fluid. APPENDIX: Normal. PELVIS, BLADDER, AND ABDOMINAL WALL:No abnormal masses. No free fluid. Bladder normal. Uterus and ov palomo not identified BONES: No significant findings. OTHER: No other significant finding. IMPRESSION: Few punctate calcifications along the pancreatic head from prior episodes of pancreatiti s. Currently, no peripancreatic retroperitoneal inflammation or fluid is present. COMMENT: Quality ID # [id number]: Final reports with documentation of one or more dose reduction techniques (e.g., Automated exposure control, adjustment of the mA and/or kV according to patient size, use of iterative reconstruction technique) TECHNICAL DOCUMENTATION: JOB ID: [id number] [employer]- All Rights Reserved Reading location - IP/workstation name: [email or web address]
[2017-08-22] MEDS: LIPASE/PROTEASE/AMYLASE 1 CAP CAPSULE.DR PO SCH ×2 (10:26→17:14)
--- NOTE | 2017-08-22 11:49 | PDOC PROGRESS REPORT ---
Subjective Progress Note for:: 08/22/17 Subjective:: Patient is currently doing same Patient's still complaining of some nausea vomiting some abdominal discomfort Patients have a repeat CT scan of the abdomen and pelvis did not show any acute finding and patient have endoscopy was done And all stable When I saw the patient in the room patient's kind of When I talk about this ongoing chronic issues and not utilizing so much pain medications patients some wants to still this ongoing nausea vomiting issues which patient have this before in [place] Patient's blood pressure is still stable is coming down I think patients pretty much very noncompliance with recent A1c was 12 with a fairly new patients to the office Patient's also have a substance drug abuse and history of alcohol abuse Reason For Visit: ABD PAIN Physical Exam Vital Signs: Temp Pulse Resp BP Pulse Ox 98.3 F 88 14 154/91 H 99 08/22/17 07:35 08/22/17 07:35 08/22/17 07:35 08/22/17 07:35 08/22/17 07:35 Intake & Output 08/21/17 08/22/17 08/23/17 06:59 06:59 06:59 Intake Total 3247 2495 Output Total 1800 Balance 1447 2495 Weight 63.7 kg 62.4 kg General appearance: PRESENT: no acute distress, well-developed, well-nourished Head exam: PRESENT: atraumatic, normocephalic Eye exam: PRESENT: conjunctiva pink, EOMI, PERRLA. ABSENT: scleral icterus Ear exam: PRESENT: normal external ear exam Mouth exam: PRESENT: moist, tongue midline Neck exam: PRESENT: full ROM. ABSENT: carotid bruit, JVD, lymphadenopathy, thyromegaly Respiratory exam: PRESENT: clear to auscultation teddy Cardiovascular exam: PRESENT: RRR. ABSENT: diastolic murmur, rubs, systolic murmur Pulses: PRESENT: normal dorsalis pedis pul, +2 pedal pulses bilateral Vascular exam: PRESENT: normal capillary refill GI/Abdominal exam: PRESENT: normal bowel sounds, soft. ABSENT: distended, guarding, mass, organolmegaly, rebound, tenderness Rectal exam: PRESENT: deferred Musculoskeletal exam: PRESENT: ambulatory Neurological exam: PRESENT: alert, awake, oriented to person, oriented to place , oriented to time, oriented to situation, CN II-XII grossly intact. ABSENT: motor sensory deficit Psychiatric exam: PRESENT: appropriate affect, normal mood. ABSENT: homicidal ideation, suicidal ideation Skin exam: PRESENT: dry, intact, warm. ABSENT: cyanosis, rash Results Laboratory Results: 08/20/17 06:00 08/22/17 04:25 08/22/17 08/22/17 04:25 04:25 Sodium 138.6 Potassium 4.7 Chloride 102 Carbon Dioxide 29 Anion Gap 8 BUN 25 H Creatinine 1.17 Est GFR ( Amer) > 60 Est GFR (Non-Af Amer) 52 L Glucose 238 H Calcium 9.4 Lipase 161.7 08/19/17 17:32 Clean Catch Midstream Urine Culture - Final Gardnerella Vaginalis Impressions: Abdomen CT 08/17/17 00:00 IMPRESSION: Punctate calcifications at the pancreatic head from prior episodes of pancreatitis. No gross peripancreatic inflammation or peripancreatic fluid collections on today's study. Abdomen Ultrasound 08/17/17 00:00 IMPRESSION: No significant intra-abdominal abnormalities were identified. Findings as noted above Abdomen/Pelvis CT 08/22/17 00:00 IMPRESSION: Few punctate calcifications along the pancreatic head from prior episodes of pancreatitis. Currently, no peripancreatic retroperitoneal inflammation or fluid is present. Assessment & Plan - Diagnosis (1) Pancreatitis Qualifiers: Chronicity: acute Pancreatitis type: alcohol induced Acute pancreatitis complication: unspecified Qualified Code(s): K85.20 - Alcohol induced acute pancreatitis without necrosis or infection Is this a current diagnosis for this admission?: Yes Plan: Most likely a chronic alcoholic pancreatitis with a repeat CT scan and ultrasound is all negatives we also general surgery for further evaluations before the discharge (2) History of alcoholism Is this a current diagnosis for this admission?: Yes Plan: Start the patient on thiamine supplements and multivitamins (3) SUBSTANCE DRUG ABUSED Is this a current diagnosis for this admission?: Yes Plan: Patient is to see the psych as outpatient (4) Chronic kidney disease Qualifiers: Chronic kidney disease stage: stage 2 (mild) Qualified Code(s): N18.2 - Chronic kidney disease, stage 2 (mild) Is this a current diagnosis for this admission?: Yes Plan: Patient's current creatinine is all stable outpatients nephrology evaluations (5) Hypertension Qualifiers: Hypertension type: essential hypertension Qualified Code(s): I10 - Essential (primary) hypertension Is this a current diagnosis for this admission?: Yes Plan: Continues the lisinopril and Norvasc and the hydralazine patients to the renal artery Doppler study (6) Type 2 diabetes mellitus Qualifiers: Diabetes mellitus longterm insulin use: with tap and die maker technician use Diabetes mellitus complication status: with hyperglycemia Qualified Code(s): E11.65 - Type 2 diabetes mellitus with hyperglycemia; Z79.4 - yarrow gatherer (current) use of insulin; Z79.4 - nursing home (current) use of insulin; Z79.4 - yarrow gatherer (current ) use of insulin; Z79.4 - yarrow gatherer (current) use of insulin Is this a current diagnosis for this admission?: Yes Plan: Patient had a very labile blood sugar because of the noncompliance will adjust insulin (7) RONIT (acute kidney injury) Is this a current diagnosis for this admission?: Yes Plan: Currently all stable (8) Hyperglycemia Is this a current diagnosis for this admission?: Yes Plan: She never labile sugar issue follow outpatients senior solutions workflow consultant currently adjust insulin - Time Time Spent with patient: 15-24 minutes Medications reviewed and adjusted accordingly: Yes Anticipated discharge: Home Within: within 24 hours - Inpatient Certification Medical Necessity: Need Close Monitoring Due to Risk of Patient Decompensation, Need For IV Fluids Post Hospital Care: D/C Director Of Corporate Strategy Documentation - Plan Summary Plan Summary: Discussed with the patient's and some family member in the room regarding the patient's current conditions with all the test reports Patient is not very happy at this point and looking for other doctors We will ask the general surgery evaluations for this ongoing issues
--- NOTE | 2017-08-22 17:40 | PDOC CONSULTATION ---
Consultation Consult Date: 08/22/17 Consult reason:: chronic kidney disease and uncontrolled BP History of Present Illness Admission Date/PCP: 08/17/17 03:59 RADHA MAXWELL MD History of Present Illness: JJ HOFFMAN is a 36 year old female with a history of the alcoholism, chronic pancreatitis, substance drug abuse, hypertension and DM type 2. She came to the ER abdominal pain, nausea, vomiting, and poor oral intake. She recently moved from the [place] a couple weeks ago and is a new patients of Dr. Collier. She has had multiple prior admissions when for similar reasons when she was in [place]. The nausea/vomiting has been episodic. This time in the ER the patient's lipase was elevated without elevation of the LFT. A CT of her abdomen was also done, that was found to be unremarkable, except for calcifications on the head of the pancreas. She was also found to have an elevated creatinine and blood pressure. She was restarted on her blood pressure medications and started on IV fluids for hydration. She was diagnosed with chronic pancreatitis due to prior alcohol use. She does have a significant history alcoholism for which she denies drinking alcohol for 5 years. She does admit to smoking marijuana and 5 cigarets a day. Other significant lab findings were positive urine drug screen for marijuana and opioidsl; A1c was 12, which leaves concern for noncompliance. During her visit she has also received an EGD that was negative for ulcers but did show signs of gastritis. During examination today her only compliant was that she could not urinate but felt like she had to. She states that she has drank plenty of fluid today. She denies any prior history of urinary retention. She also denies chest pain, sob, headache, dysuria, fever or chills. Abdomen does still hurt in the left upper quadrant. Past Medical History Cardiac Medical History: Reports: Hyperlipidemia Neurological Medical History: Reports: Ischemic CVA Endocrine Medical History: Reports: Diabetes Mellitus Type 2 Past Surgical History Past Surgical History: Reports: Section - x3, Hysterectomy Social History Smoking Status: Current Every Day Smoker Frequency of Alcohol Use: Occasional Hx Recreational Drug Use: Yes Drugs: Marijuana Hx Prescription Drug Abuse: No - Advance Directive Resuscitation Status: Full Code Family History Parental Family History Reviewed: No Children Family History Reviewed: NA Sibling(s) Family History Reviewed.: NA Medication/Allergy Home Medications: Atorvastatin Calcium [Lipitor 20 mg Tablet] 20 mg PO QHS 08/17/17 Metoprolol Tartrate [Lopressor 25 mg Tablet] 25 mg PO BID 08/17/17 Amlodipine Besylate [Norvasc 5 mg Tablet] 5 mg PO Q12 #60 tablet 08/19/17 Gabapentin [Neurontin 100 mg Capsule] 100 mg PO Q8 #90 capsule 08/19/17 Lansoprazole [Prevacid 30 mg Odt Tablet] 30 mg PO Q6AM #30 tab.rap. 08/19/17 Lipase/Protease/Amylase [Pancreaze-10 Capsule.] 1 cap PO BIDACBS #60 capsule. 08/19/17 Insulin Aspart [Novolog Insulin (Aspart) 100 unit/mL] 5 units SQ MEALS #3 Insulin Glargine,Hum.rec.anlog [Lantus Insulin 100 Unit/1 ml 10 ml] 20 units SQ QHS #3 08/22/17 Lisinopril [Zestril] 40 mg PO DAILY #30 08/22/17 Metoprolol Tartrate [Lopressor 25 mg Tablet] 25 mg PO Q12 #60 tablet 08/22/17 Allergies/Adverse Reactions: hydrocodone [From [place]] Allergy (Verified 07/29/17 16:49) morphine Allergy (Verified 07/29/17 16:49) Review of Systems Constitutional: ABSENT: chills, fever(s), headache(s), weakness Eyes: ABSENT: visual disturbances Nose, Mouth, and Throat: ABSENT: headache(s) Cardiovascular: ABSENT: chest pain, dyspnea on exertion, edema, orthropnea, palpitations Respiratory: ABSENT: cough, dyspnea, sputum Gastrointestinal: PRESENT: abdominal pain, nausea, vomiting. ABSENT: constipation, diarrhea Genitourinary: PRESENT: difficulty urinating. ABSENT: dysuria, hematuria, nocturia Musculoskeletal: ABSENT: back pain, muscle weakness Integumentary: ABSENT: erythema Neurological: ABSENT: confusion, focal weakness, numbness, weakness Psychiatric: PRESENT: anxiety, depression Physical Exam Vital Signs: Temp Pulse Resp BP Pulse Ox 99.8 F 92 12 152/86 H 96 08/22/17 15:25 08/22/17 15:25 08/22/17 15:25 08/22/17 15:25 08/22/17 15:25 Intake & Output 08/21/17 08/22/17 08/23/17 06:59 06:59 06:59 Intake Total 3247 2495 Output Total 1800 Balance 1447 2495 Weight 63.7 kg 62.4 kg General appearance: PRESENT: no acute distress, well-developed, well-nourished Mouth exam: PRESENT: moist, neck supple Neck exam: PRESENT: full ROM. ABSENT: carotid bruit, JVD Respiratory exam: PRESENT: clear to auscultation teddy. ABSENT: accessory muscle use, crackles, rales, rhonchi, wheezes Cardiovascular exam: PRESENT: RRR, +S1, +S2 GI/Abdominal exam: PRESENT: guarding, normal bowel sounds, soft, tenderness. ABSENT: ascites, distended, mass, renal bruit, rigid Extremities exam: ABSENT: pedal edema, tenderness, +1 edema, +2 edema Musculoskeletal exam: PRESENT: normal inspection. ABSENT: tenderness Neurological exam: PRESENT: alert, awake, oriented to person, oriented to place , oriented to time, oriented to situation Psychiatric exam: PRESENT: anxious, depressed Skin exam: PRESENT: dry, intact, warm. ABSENT: cyanosis Results Laboratory Results: 08/20/17 06:00 08/22/17 04:25 08/22/17 08/22/17 04:25 04:25 Sodium 138.6 Potassium 4.7 Chloride 102 Carbon Dioxide 29 Anion Gap 8 BUN 25 H Creatinine 1.17 Est GFR ( Amer) > 60 Est GFR (Non-Af Amer) 52 L Glucose 238 H Calcium 9.4 Lipase 161.7 Impressions: Abdomen CT 08/17/17 00:00 IMPRESSION: Punctate calcifications at the pancreatic head from prior episodes of pancreatitis. No gross peripancreatic inflammation or peripancreatic fluid collections on today's study. Abdomen Ultrasound 08/17/17 00:00 IMPRESSION: No significant intra-abdominal abnormalities were identified. Findings as noted above Abdomen/Pelvis CT 08/22/17 00:00 IMPRESSION: Few punctate calcifications along the pancreatic head from prior episodes of pancreatitis. Currently, no peripancreatic retroperitoneal inflammation or fluid is present. Assessment & Plan - Diagnosis (1) RONIT (acute kidney injury) Is this a current diagnosis for this admission?: Yes Plan: looks to be improving; looked to be due dehydration. Continue with fluids. Is having some trouble with urination. Will to get a gordon catheter placed and get a UA. (2) Hypertension Qualifiers: Hypertension type: essential hypertension Qualified Code(s): I10 - Essential (primary) hypertension Is this a current diagnosis for this admission?: Yes Plan: Looks to be elevated due to high sodium diet. Will switch metoprolol 25mg bid for carvedilol 12.5mg bid. Also will get a renal doppler to rule out renal artery stenosis. (3) Pancreatitis Qualifiers: Chronicity: acute Pancreatitis type: alcohol induced Acute pancreatitis complication: unspecified Qualified Code(s): K85.20 - Alcohol induced acute pancreatitis without necrosis or infection Is this a current diagnosis for this admission?: Yes Plan: per Dr. Maxwell (4) History of alcoholism Is this a current diagnosis for this admission?: Yes Plan: claims to have not drank in 5 years, was negative for alcohol when she came to the hospital. (5) Type 2 diabetes mellitus Qualifiers: Diabetes mellitus supervisor intermediates insulin use: with supervisor intermediates use Diabetes mellitus complication status: with hyperglycemia Qualified Code(s): E11.65 - Type 2 diabetes mellitus with hyperglycemia; Z79.4 - long-term (current) use of insulin; Z79.4 - long-term (current) use of insulin; Z79.4 - supervisor intermediates (current ) use of insulin; Z79.4 - supervisor intermediates (current) use of insulin Is this a current diagnosis for this admission?: Yes Plan: currently noncompliant. Needs to follow a closer diabetic diet. (6) Urinary retention Plan: will look to get a gordon placed and get a UA. - Notes Notes: case and care plan were discussed with Dr. Anguiano.
[2017-08-22 18:33] LABS: APPEARANCE,URINE CLEAR; BILIRUBIN,URINE NEGATIVE (NEGATIVE); COLOR,URINE STRAW; GLUCOSE, URINE >=500 mg/dL (NEGATIVE); KETONES,URINE NEGATIVE (NEGATIVE); LEUKOCYTE ESTERASE,URINE NEGATIVE (NEGATIVE); NITRITE,URINE NEGATIVE (NEGATIVE); PROTEIN,URINE 100 mg/dL (NEGATIVE); URINE SPECIFIC GRAVITY 1.013; UROBILINOGEN,URINE NEGATIVE mg/dL (<2.0)
[2017-08-22] MEDS: OXYCODONE-ACETAMINOPHEN 5-325 MG TABLET PO PRN (18:55)
--- NOTE | 2017-08-22 19:54 | PDOC CONSULTATION ---
Consultation Consult Date: 08/22/17 Consult reason:: abdominal pains History of Present Illness Admission Date/PCP: 08/17/17 03:59 RADHA LOCKHART MD History of Present Illness: JJ HOFFMAN is a 36 year old female with history of type 2 DM and chronic pancreatitis. History of heavy drinking until 5 years ago. She claims she was in a hospital in [place] from Mar to June. She moved here around July 04, 2017. Claims she has been in and out of ED for abdominal pains. This time pains are worse and Lipase wAS ELEVATED ON ADMISSION but now is normal. Had EGD done by Dr Lehman which showed gastritis and doudenitis . CT scan only showed evidenced of chronic pancreatitis with calcifications. Past Medical History Cardiac Medical History: Reports: Hyperlipidema, Hypertension Neurological Medical History: Reports: Ischemic CVA Endocrine Medical History: Reports: Diabetes Mellitus Type 2 Past Surgical History Past Surgical History: Reports: Section - x3, Hysterectomy Social History Smoking Status: Current Every Day Smoker Frequency of Alcohol Use: Occasional Hx Recreational Drug Use: Yes Drugs: Marijuana Hx Prescription Drug Abuse: No - Advance Directive Resuscitation Status: Full Code Family History Family History: Reviewed & Not Pertinent Parental Family History Reviewed: Yes Children Family History Reviewed: No Sibling(s) Family History Reviewed.: No Medication/Allergy Home Medications: Atorvastatin Calcium [Lipitor 20 mg Tablet] 20 mg PO QHS 08/17/17 Metoprolol Tartrate [Lopressor 25 mg Tablet] 25 mg PO BID 08/17/17 Amlodipine Besylate [Norvasc 5 mg Tablet] 5 mg PO Q12 #60 tablet 08/19/17 Gabapentin [Neurontin 100 mg Capsule] 100 mg PO Q8 #90 capsule 08/19/17 Lansoprazole [Prevacid 30 mg Odt Tablet] 30 mg PO Q6AM #30 tab.rap. 08/19/17 Lipase/Protease/Amylase [Pancreaze-10 Capsule.] 1 cap PO BIDACBS #60 capsule. 08/19/17 Insulin Aspart [Novolog Insulin (Aspart) 100 unit/mL] 5 units SQ MEALS #3 Insulin Glargine,Hum.rec.anlog [Lantus Insulin 100 Unit/1 ml 10 ml] 20 units SQ QHS #3 08/22/17 Lisinopril [Zestril] 40 mg PO DAILY #30 08/22/17 Metoprolol Tartrate [Lopressor 25 mg Tablet] 25 mg PO Q12 #60 tablet 08/22/17 Allergies/Adverse Reactions: hydrocodone [From [place]] Allergy (Verified 07/29/17 16:49) morphine Allergy (Verified 07/29/17 16:49) Review of Systems Constitutional: PRESENT: other - no fever/chills Ears: PRESENT: other - no visual/hearing changes Respiratory: PRESENT: other - no cough/chest pains Genitourinary: PRESENT: other - no dysuria Hematologic/Lymphatic: PRESENT: other - no easy bruising Physical Exam Vital Signs: Temp Pulse Resp BP Pulse Ox 99.8 F 92 12 152/86 H 96 08/22/17 15:25 08/22/17 15:25 08/22/17 15:25 08/22/17 15:25 08/22/17 15:25 Intake & Output 08/21/17 08/22/17 08/23/17 06:59 06:59 06:59 Intake Total 3247 2495 738 Output Total 1800 40 Balance 1447 2495 698 Weight 63.7 kg 62.4 kg General appearance: PRESENT: mild distress Head exam: PRESENT: atraumatic Neck exam: PRESENT: full ROM Respiratory exam: PRESENT: clear to auscultation teddy Cardiovascular exam: PRESENT: RRR Pulses: PRESENT: normal radial pulses Vascular exam: PRESENT: normal capillary refill GI/Abdominal exam: PRESENT: tenderness - LUQ Rectal exam: PRESENT: deferred Extremities exam: PRESENT: full ROM Neurological exam: PRESENT: alert, oriented to person, oriented to place, oriented to time, oriented to situation Psychiatric exam: PRESENT: anxious Skin exam: PRESENT: normal color, warm Results Laboratory Results: 08/20/17 06:00 08/22/17 04:25 08/22/17 08/22/17 08/22/17 04:25 04:25 18:00 Sodium 138.6 Potassium 4.7 Chloride 102 Carbon Dioxide 29 Anion Gap 8 BUN 25 H Creatinine 1.17 Est GFR ( Amer) > 60 Est GFR (Non-Af Amer) 52 L Glucose 238 H Calcium 9.4 Lipase 161.7 Urine Color STRAW Urine Appearance CLEAR Urine pH 6.0 Ur Specific [place] 1.013 Urine Protein 100 H Urine Glucose (UA) >=500 H Urine Ketones NEGATIVE Urine Blood SMALL H Urine Nitrite NEGATIVE Ur Leukocyte Esterase NEGATIVE Urine WBC (Auto) 0 Urine RBC (Auto) 0 Impressions: Abdomen CT 08/17/17 00:00 IMPRESSION: Punctate calcifications at the pancreatic head from prior episodes of pancreatitis. No gross peripancreatic inflammation or peripancreatic fluid collections on today's study. Abdomen Ultrasound 08/17/17 00:00 IMPRESSION: No significant intra-abdominal abnormalities were identified. Findings as noted above Abdomen/Pelvis CT 08/22/17 00:00 IMPRESSION: Few punctate calcifications along the pancreatic head from prior episodes of pancreatitis. Currently, no peripancreatic retroperitoneal inflammation or fluid is present. Assessment & Plan - Time Time Spent: 30 to 50 Minutes - Plan Summary Plan Summary: No surgical abdomen at this time Continue medical tx for pancreatitis, gastritis and duodenitis
[2017-08-22] MEDS: HYDRALAZINE HCL INJ/PF 20 MG/1 ML SDV IV PRN (20:47)
[2017-08-22] MEDS: ATORVASTATIN CALCIUM 20 MG TABLET PO SCH (21:37)
[2017-08-22] MEDS: CARVEDILOL 12.5 MG TABLET PO SCH (21:37)
[2017-08-22] MEDS ORDERED: INSULIN GLARGINE,HUM.REC.ANLOG 300 UNIT/3 ML INSULN.PEN SUBCUT SCH (22:00)
[2017-08-22] MEDS ORDERED: INSULIN DETEMIR 100 UNIT/ML 3 ML PEN SUBCUT ONE (22:45)
[2017-08-23] MEDS: GABAPENTIN 100 MG CAPSULE PO SCH ×3 (06:39→21:06)
[2017-08-23] MEDS: LANSOPRAZOLE 30 MG TAB.RAP.DR PO SCH (06:39)
[2017-08-23 08:24] LABS: ABSOLUTE LYMPHOCYTES (AUTO) 1.3 10^3/uL (0.5-4.7); ABSOLUTE MONOCYTES (AUTO) 0.9 10^3/uL (0.1-1.4); ABSOLUTE NEUT (AUTO) 7.9 10^3/uL (1.7-8.2); BASOPHILS % (AUTO) 0.3 % (0-2); EOSINOPHILS % (AUTO) 0.5 % (0-6); HEMATOCRIT 33.2 % (36.0-47.0); LYMPHOCYTES % (AUTO) 13.3 % (13-45); MEAN CORPUSCULAR HEMOGLOBIN 29.2 pg (27.0-33.4); MEAN CORPUSCULAR HGB CONC 33.2 g/dL (32.0-36.0); MEAN CORPUSCULAR VOLUME 88 fl (80-97); MONOCYTES % (AUTO) 8.5 % (3-13); PLATELET COUNT 306 10^3/uL (150-450); RED BLOOD COUNT 3.77 10^6/uL (3.72-5.28); RED CELL DISTRIBUTION WIDTH 14.3 % (11.5-14.0); SEGMENTED NEUTROPHILS % (AUTO) 77.4 % (42-78); TOTAL CELLS COUNTED % (AUTO) 100 %; WHITE BLOOD COUNT 10.1 10^3/uL (4.0-10.5)
--- NOTE | 2017-08-23 08:33 | RADIOLOGY REPORT (SQ) ---
EXAM DESCRIPTION: U/S LTD DUPLEX ART/RAYMOND FLOW; U/S RETROPERITON LTD COMPLETED DATE/TIME: 08/23/2017 7:18 am REASON FOR STUDY: Concern for renal artery stenosis COMPARISON: CT abdomen pelvis 07/11/2017, 08/17/2017, 08/22/2017 Abdominal ultrasound 08/17/2017 TECHNIQUE: Realtime and static grayscale images acquired. Selected color Doppler, velocities and spe ctral images recorded. LIMITATIONS: Renal artery origins off the aorta were difficult to visualize by ultrasound due to mid line bowel gas. FINDINGS: RIGHT KIDNEY: RENAL ARTERY VELOCITIES: At the hilum, 105 cm/sec. Segmental artery velocity 68 cm/sec. RENAL VEIN: Color doppler flow present, patent. VELOCITY RATIO: 1.4. Normal waveforms. KIDNEY: Right kidney is 11.2 cm in length with grossly normal cortical thickness and echogenicity. No significant pathology. LEFT KIDNEY: RENAL ARTERY VELOCITIES: At the hilum, 158 cm/sec. Segmental artery velocity 87 cm/sec. RENAL VEIN: Color doppler flow present, patent. VELOCITY RATIO: 2.0. Normal waveforms. KIDNEY: Left kidney is 12.3 cm in length with grossly normal cortical thickness and echogenicity. No significant pathology. BLADDER: Urinary bladder is decompressed by a Rivero catheter, not well seen OTHER: No other significant finding. IMPRESSION: NO DOPPLER EVIDENCE OF HEMODYNAMICALLY SIGNIFICANT RENAL ARTERY STENOSIS. COMMENT: NORMAL RENAL ARTERY/AORTA VELOCITY RATIO IS LESS THAN OR EQUAL TO 3.5. TECHNICAL DOCUMENTATION: JOB ID: [id number] [employer]- All Rights Reserved Reading location - IP/workstation name: [email or web address]
--- NOTE | 2017-08-23 08:33 | RADIOLOGY REPORT (SQ) ---
EXAM DESCRIPTION: U/S LTD DUPLEX ART/RAYOMND FLOW; U/S RETROPERITON LTD COMPLETED DATE/TIME: 08/23/2017 7:18 am REASON FOR STUDY: Concern for renal artery stenosis COMPARISON: CT abdomen pelvis 07/11/2017, 08/17/2017, 08/22/2017 Abdominal ultrasound 08/17/2017 TECHNIQUE: Realtime and static grayscale images acquired. Selected color Doppler, velocities and spe ctral images recorded. LIMITATIONS: Renal artery origins off the aorta were difficult to visualize by ultrasound due to mid line bowel gas. FINDINGS: RIGHT KIDNEY: RENAL ARTERY VELOCITIES: At the hilum, 105 cm/sec. Segmental artery velocity 68 cm/sec. RENAL VEIN: Color doppler flow present, patent. VELOCITY RATIO: 1.4. Normal waveforms. KIDNEY: Right kidney is 11.2 cm in length with grossly normal cortical thickness and echogenicity. No significant pathology. LEFT KIDNEY: RENAL ARTERY VELOCITIES: At the hilum, 158 cm/sec. Segmental artery velocity 87 cm/sec. RENAL VEIN: Color doppler flow present, patent. VELOCITY RATIO: 2.0. Normal waveforms. KIDNEY: Left kidney is 12.3 cm in length with grossly normal cortical thickness and echogenicity. No significant pathology. BLADDER: Urinary bladder is decompressed by a Rivero catheter, not well seen OTHER: No other significant finding. IMPRESSION: NO DOPPLER EVIDENCE OF HEMODYNAMICALLY SIGNIFICANT RENAL ARTERY STENOSIS. COMMENT: NORMAL RENAL ARTERY/AORTA VELOCITY RATIO IS LESS THAN OR EQUAL TO 3.5. TECHNICAL DOCUMENTATION: JOB ID: [id number] [employer] All Rights Reserved Reading location - IP/workstation name: [email or web address]
[2017-08-23 08:45] LABS: ANION GAP 15 (5-19); BLOOD UREA NITROGEN 32 mg/dL (7-20); CALCIUM 9.4 mg/dL (8.4-10.2); CARBON DIOXIDE 24 mmol/L (22-30); CHLORIDE 96 mmol/L (98-107); POTASSIUM 4.7 mmol/L (3.6-5.0); SODIUM 135.1 mmol/L (137-145)
--- NOTE | 2017-08-23 08:47 | PDOC PROGRESS REPORT ---
Subjective Progress Note for:: 08/23/17 Subjective:: Patient is currently doing seems still complaining of some abdominal issues and seen by the general surgery and suggests no further intervention and patient was CT abdomen and pelvis was done was all stable and the lipase is also normal to Patient seen by the Dr. Anguiano for the chronic kidney disease and ultrasound was negative for any renal artery stenosis Since blood sugar was elevated yesterday which very labile blood SugarAnd patients eating the cardiac diet change to the diabetic diet today Patient's denied any chest pain denied any shortness of the breath Patient's ambulating Patient was placed the Rivero catheter yesterday with the complaining of urinary difficulties by the nephrology patient's currently wants to remove the catheter Reason For Visit: ABD PAIN Physical Exam Vital Signs: Temp Pulse Resp BP Pulse Ox 99.2 F 97 16 148/95 H 98 08/23/17 07:32 08/23/17 07:32 08/23/17 07:32 08/23/17 07:32 08/23/17 07:32 Intake & Output 08/22/17 08/23/17 08/24/17 06:59 06:59 06:59 Intake Total 2495 1338 Output Total 2640 Balance 2495 -1302 Weight 62.4 kg 64.2 kg General appearance: PRESENT: no acute distress, well-developed, well-nourished Head exam: PRESENT: atraumatic, normocephalic Eye exam: PRESENT: conjunctiva pink, EOMI, PERRLA. ABSENT: scleral icterus Ear exam: PRESENT: normal external ear exam Mouth exam: PRESENT: moist, tongue midline Neck exam: PRESENT: full ROM. ABSENT: carotid bruit, JVD, lymphadenopathy, thyromegaly Respiratory exam: PRESENT: clear to auscultation teddy Cardiovascular exam: PRESENT: RRR. ABSENT: diastolic murmur, rubs, systolic murmur Pulses: PRESENT: normal dorsalis pedis pul, +2 pedal pulses bilateral Vascular exam: PRESENT: normal capillary refill GI/Abdominal exam: PRESENT: normal bowel sounds, soft. ABSENT: distended, guarding, mass, organolmegaly, rebound, tenderness Rectal exam: PRESENT: deferred Extremities exam: ABSENT: pedal edema Musculoskeletal exam: PRESENT: ambulatory Neurological exam: PRESENT: alert, awake, oriented to person, oriented to place , oriented to time, oriented to situation, CN II-XII grossly intact. ABSENT: motor sensory deficit Psychiatric exam: PRESENT: appropriate affect, normal mood. ABSENT: homicidal ideation, suicidal ideation Skin exam: PRESENT: dry, intact, warm. ABSENT: cyanosis, rash Results Laboratory Results: 08/23/17 08:05 08/22/17 08/22/17 08/22/17 04:25 18:00 21:44 WBC RBC Hgb Hct MCV MCH MCHC RDW Plt Count Seg Neutrophils % Lymphocytes % Monocytes % Eosinophils % Basophils % Absolute Neutrophils Absolute Lymphocytes Absolute Monocytes Absolute Eosinophils Absolute Basophils Glucose 646 H* Lipase 161.7 Urine Color STRAW Urine Appearance CLEAR Urine pH 6.0 Ur Specific [place] 1.013 Urine Protein 100 H Urine Glucose (UA) >=500 H Urine Ketones NEGATIVE Urine Blood SMALL H Urine Nitrite NEGATIVE Ur Leukocyte Esterase NEGATIVE Urine WBC (Auto) 0 Urine RBC (Auto) 0 08/23/17 08:05 WBC 10.1 RBC 3.77 Hgb 11.0 L Hct 33.2 L MCV 88 MCH 29.2 MCHC 33.2 RDW 14.3 H Plt Count 306 Seg Neutrophils % 77.4 Lymphocytes % 13.3 Monocytes % 8.5 Eosinophils % 0.5 Basophils % 0.3 Absolute Neutrophils 7.9 Absolute Lymphocytes 1.3 Absolute Monocytes 0.9 Absolute Eosinophils 0.0 Absolute Basophils 0.0 Glucose Lipase Urine Color Urine Appearance Urine pH Ur Specific [place] Urine Protein Urine Glucose (UA) Urine Ketones Urine Blood Urine Nitrite Ur Leukocyte Esterase Urine WBC (Auto) Urine RBC (Auto) Impressions: Abdomen CT 08/17/17 00:00 IMPRESSION: Punctate calcifications at the pancreatic head from prior episodes of pancreatitis. No gross peripancreatic inflammation or peripancreatic fluid collections on today's study. Abdomen Ultrasound 08/17/17 00:00 IMPRESSION: No significant intra-abdominal abnormalities were identified. Findings as noted above Abdomen/Pelvis CT 08/22/17 00:00 IMPRESSION: Few punctate calcifications along the pancreatic head from prior episodes of pancreatitis. Currently, no peripancreatic retroperitoneal inflammation or fluid is present. Renal Ultrasound 08/23/17 00:00 IMPRESSION: NO DOPPLER EVIDENCE OF HEMODYNAMICALLY SIGNIFICANT RENAL ARTERY STENOSIS. Vascular Ultrasound 08/23/17 00:00 IMPRESSION: NO DOPPLER EVIDENCE OF HEMODYNAMICALLY SIGNIFICANT RENAL ARTERY STENOSIS. Assessment & Plan - Diagnosis (1) Pancreatitis Qualifiers: Chronicity: acute Pancreatitis type: alcohol induced Acute pancreatitis complication: unspecified Qualified Code(s): K85.20 - Alcohol induced acute pancreatitis without necrosis or infection Is this a current diagnosis for this admission?: Yes Plan: Patient with this chronic issues continues to current medications (2) History of alcoholism Is this a current diagnosis for this admission?: Yes Plan: Start the patient on thiamine supplements and multivitamins (3) SUBSTANCE DRUG ABUSED Is this a current diagnosis for this admission?: Yes Plan: Patient is to see the psych as outpatient (4) Chronic kidney disease Qualifiers: Chronic kidney disease stage: stage 2 (mild) Qualified Code(s): N18.2 - Chronic kidney disease, stage 2 (mild) Is this a current diagnosis for this admission?: Yes Plan: Currently all stable (5) Hypertension Qualifiers: Hypertension type: essential hypertension Qualified Code(s): I10 - Essential (primary) hypertension Is this a current diagnosis for this admission?: Yes Plan: Currently all improving (6) Type 2 diabetes mellitus Qualifiers: Diabetes mellitus long term acute care registered nurse insulin use: with long term acute care registered nurse use Diabetes mellitus complication status: with hyperglycemia Qualified Code(s): E11.65 - Type 2 diabetes mellitus with hyperglycemia; Z79.4 - MCFP (current) use of insulin; Z79.4 - buttermaker helper (current) use of insulin; Z79.4 - MCFP (current ) use of insulin; Z79.4 - buttermaker helper (current) use of insulin Is this a current diagnosis for this admission?: Yes Plan: Patient have very labile blood sugar Will increase the Lantus to 26-30 units at night'sAnd add the Humalog 8 units before each meal (7) RONIT (acute kidney injury) Is this a current diagnosis for this admission?: Yes Plan: Currently all stable (8) Hyperglycemia Is this a current diagnosis for this admission?: Yes - Time Time Spent with patient: 15-24 minutes Medications reviewed and adjusted accordingly: Yes Anticipated discharge: Home Within: Other - Inpatient Certification Medical Necessity: Need Close Monitoring Due to Risk of Patient Decompensation, Need For IV Fluids Post Hospital Care: D/C Director Of Sleep Documentation - Plan Summary Plan Summary: Continues to current medications patient of a multiple comorbidity due to the very noncompliance will change the strict diet and consult the dietitian's
[2017-08-23 08:53] LABS: GLUCOSE 473 mg/dL (75-110)
[2017-08-23] MEDS ORDERED: INSULIN LISPRO 100 UNIT/ML 3 ML VIAL ONE (08:59)
[2017-08-23] MEDS: ENOXAPARIN SODIUM INJ 40 MG/0.4 ML DISP.SYRIN SUBCUT SCH (09:11)
[2017-08-23] MEDS: LIPASE/PROTEASE/AMYLASE 1 CAP CAPSULE.DR PO SCH ×2 (09:12→17:17)
[2017-08-23] MEDS: AMLODIPINE BESYLATE 5 MG TABLET PO SCH (09:12)
[2017-08-23] MEDS: INSULIN LISPRO 100 UNIT/ML 3 ML VIAL SUBCUT PRN ×4 (09:12→21:08)
[2017-08-23] MEDS: MULTIVITAMIN TABLET PO SCH (09:12)
[2017-08-23] MEDS: CARVEDILOL 12.5 MG TABLET PO SCH ×2 (09:12→21:05)
[2017-08-23] MEDS: THIAMINE HCL 100 MG TABLET PO SCH (09:12)
[2017-08-23] MEDS: OXYCODONE-ACETAMINOPHEN 5-325 MG TABLET PO PRN ×3 (09:12→21:06)
[2017-08-23] MEDS: INSULIN LISPRO 100 UNIT/ML 3 ML VIAL SUBCUT SCH ×3 (09:16→17:15)
--- NOTE | 2017-08-23 16:20 | PDOC PROGRESS REPORT ---
Subjective Progress Note for:: 08/23/17 Subjective:: Patient was seen laying in her bed at the time. After having a gordon catheter placed she produced over 2600mL of urine. Also after urinating out 2600mL her blood pressure dropped to the low 100s systolic. The catheter was taken out and she has been urinating some more since then. Currently denies any chest pain, sob, fevers or chills. She has had one loose bowel movement, but states that she occasionally has them. Reason For Visit: ABD PAIN Physical Exam Vital Signs: Temp Pulse Resp BP Pulse Ox 98.5 F 95 14 104/72 98 08/23/17 11:05 08/23/17 11:05 08/23/17 11:05 08/23/17 11:05 08/23/17 11:05 Intake & Output 08/22/17 08/23/17 08/24/17 06:59 06:59 06:59 Intake Total 2495 1338 Output Total 2640 Balance 2495 -1302 Weight 62.4 kg 64.2 kg General appearance: PRESENT: no acute distress, well-developed, well-nourished Mouth exam: PRESENT: moist, neck supple Neck exam: PRESENT: full ROM Respiratory exam: PRESENT: clear to auscultation teddy. ABSENT: accessory muscle use, rales, rhonchi, wheezes Cardiovascular exam: PRESENT: RRR, +S1, +S2 GI/Abdominal exam: PRESENT: guarding, normal bowel sounds, soft, tenderness. ABSENT: ascites, distended, mass, renal bruit, rigid Extremities exam: ABSENT: pedal edema, tenderness, +1 edema, +2 edema Musculoskeletal exam: PRESENT: normal inspection. ABSENT: tenderness Neurological exam: PRESENT: alert, awake, oriented to person, oriented to place , oriented to time, oriented to situation Psychiatric exam: PRESENT: appropriate affect, normal mood Skin exam: PRESENT: dry, intact, warm. ABSENT: cyanosis Results Laboratory Results: 08/23/17 08:05 08/23/17 08:05 08/22/17 08/22/17 08/23/17 18:00 21:44 08:05 WBC RBC Hgb Hct MCV MCH MCHC RDW Plt Count Seg Neutrophils % Lymphocytes % Monocytes % Eosinophils % Basophils % Absolute Neutrophils Absolute Lymphocytes Absolute Monocytes Absolute Eosinophils Absolute Basophils Sodium 135.1 L Potassium 4.7 Chloride 96 L Carbon Dioxide 24 Anion Gap 15 BUN 32 H Creatinine 1.21 Est GFR ( Amer) > 60 Est GFR (Non-Af Amer) 50 L Glucose 646 H* 473 H* Calcium 9.4 Urine Color STRAW Urine Appearance CLEAR Urine pH 6.0 Ur Specific [place] 1.013 Urine Protein 100 H Urine Glucose (UA) >=500 H Urine Ketones NEGATIVE Urine Blood SMALL H Urine Nitrite NEGATIVE Ur Leukocyte Esterase NEGATIVE Urine WBC (Auto) 0 Urine RBC (Auto) 0 08/23/17 08:05 WBC 10.1 RBC 3.77 Hgb 11.0 L Hct 33.2 L MCV 88 MCH 29.2 MCHC 33.2 RDW 14.3 H Plt Count 306 Seg Neutrophils % 77.4 Lymphocytes % 13.3 Monocytes % 8.5 Eosinophils % 0.5 Basophils % 0.3 Absolute Neutrophils 7.9 Absolute Lymphocytes 1.3 Absolute Monocytes 0.9 Absolute Eosinophils 0.0 Absolute Basophils 0.0 Sodium Potassium Chloride Carbon Dioxide Anion Gap BUN Creatinine Est GFR ( Amer) Est GFR (Non-Af Amer) Glucose Calcium Urine Color Urine Appearance Urine pH Ur Specific [place] Urine Protein Urine Glucose (UA) Urine Ketones Urine Blood Urine Nitrite Ur Leukocyte Esterase Urine WBC (Auto) Urine RBC (Auto) Impressions: Abdomen CT 08/17/17 00:00 IMPRESSION: Punctate calcifications at the pancreatic head from prior episodes of pancreatitis. No gross peripancreatic inflammation or peripancreatic fluid collections on today's study. Abdomen Ultrasound 08/17/17 00:00 IMPRESSION: No significant intra-abdominal abnormalities were identified. Findings as noted above Abdomen/Pelvis CT 08/22/17 00:00 IMPRESSION: Few punctate calcifications along the pancreatic head from prior episodes of pancreatitis. Currently, no peripancreatic retroperitoneal inflammation or fluid is present. Renal Ultrasound 08/23/17 00:00 IMPRESSION: NO DOPPLER EVIDENCE OF HEMODYNAMICALLY SIGNIFICANT RENAL ARTERY STENOSIS. Vascular Ultrasound 08/23/17 00:00 IMPRESSION: NO DOPPLER EVIDENCE OF HEMODYNAMICALLY SIGNIFICANT RENAL ARTERY STENOSIS. Assessment & Plan - Diagnosis (1) RONIT (acute kidney injury) Is this a current diagnosis for this admission?: Yes Plan: looks to be at baseline with a creatinine of 1.2. (2) Hypertension Qualifiers: Hypertension type: essential hypertension Qualified Code(s): I10 - Essential (primary) hypertension Is this a current diagnosis for this admission?: Yes Plan: stopping amlodipine and holding bp medications when blood pressure is below 120 systolic. (3) Pancreatitis Qualifiers: Chronicity: acute Pancreatitis type: alcohol induced Acute pancreatitis complication: unspecified Qualified Code(s): K85.20 - Alcohol induced acute pancreatitis without necrosis or infection Is this a current diagnosis for this admission?: Yes (4) Chronic kidney disease Qualifiers: Chronic kidney disease stage: stage 2 (mild) Qualified Code(s): N18.2 - Chronic kidney disease, stage 2 (mild) Is this a current diagnosis for this admission?: Yes Plan: looks to have underling stage 2 kidney disease due to diabetes and hypertension. Other factors that could be affecting the kidneys are urinary retention and illegal drug use. (5) History of alcoholism Is this a current diagnosis for this admission?: Yes (6) Type 2 diabetes mellitus Qualifiers: Diabetes mellitus soft shoe dancer insulin use: with soft shoe dancer use Diabetes mellitus complication status: with hyperglycemia Qualified Code(s): E11.65 - Type 2 diabetes mellitus with hyperglycemia; Z79.4 - retirement (current) use of insulin; Z79.4 - retirement (current) use of insulin; Z79.4 - developmental electronics assembler (current ) use of insulin; Z79.4 - retirement (current) use of insulin Is this a current diagnosis for this admission?: Yes Plan: discussed with the patient a need for a proper diabetic diet to prevent worsening of the never and kidney damage that has been done. (7) Urinary retention Plan: concerns for neurogenic bladder with the difficulty urinating. Recommend a pre and post void study. - Notes Notes: case was discussed with Dr. Anguiano
[2017-08-23] MEDS: DOCUSATE SODIUM 100 MG CAPSULE PO SCH (17:17)
[2017-08-23] MEDS: ATORVASTATIN CALCIUM 20 MG TABLET PO SCH (21:06)
[2017-08-23] MEDS ORDERED: INSULIN GLARGINE,HUM.REC.ANLOG 300 UNIT/3 ML INSULN.PEN SUBCUT SCH (22:00)
[2017-08-24] MEDS: GABAPENTIN 100 MG CAPSULE PO SCH ×2 (05:47→13:41)
[2017-08-24] MEDS: NORMAL SALINE 1000 ML 1,000 ML IV PRN (05:47)
[2017-08-24] MEDS: LANSOPRAZOLE 30 MG TAB.RAP.DR PO SCH (05:47)
[2017-08-24 07:26] LABS: ABSOLUTE EOSINOPHILS # (AUTO) 0.1 10^3/uL (0.0-0.6); ABSOLUTE LYMPHOCYTES (AUTO) 2.3 10^3/uL (0.5-4.7); ABSOLUTE NEUT (AUTO) 4.4 10^3/uL (1.7-8.2); BASOPHILS % (AUTO) 0.6 % (0-2); EOSINOPHILS % (AUTO) 1.3 % (0-6); HEMATOCRIT 28.3 % (36.0-47.0); HEMOGLOBIN 9.8 g/dL (12.0-15.5); LYMPHOCYTES % (AUTO) 29.1 % (13-45); MEAN CORPUSCULAR HEMOGLOBIN 30.2 pg (27.0-33.4); MEAN CORPUSCULAR HGB CONC 34.7 g/dL (32.0-36.0); MEAN CORPUSCULAR VOLUME 87 fl (80-97); MONOCYTES % (AUTO) 12.7 % (3-13); PLATELET COUNT 292 10^3/uL (150-450); RED BLOOD COUNT 3.25 10^6/uL (3.72-5.28); RED CELL DISTRIBUTION WIDTH 14.1 % (11.5-14.0); SEGMENTED NEUTROPHILS % (AUTO) 56.3 % (42-78); TOTAL CELLS COUNTED % (AUTO) 100 %; WHITE BLOOD COUNT 7.8 10^3/uL (4.0-10.5)
[2017-08-24 07:43] LABS: ANION GAP 9 (5-19); BLOOD UREA NITROGEN 26 mg/dL (7-20); CALCIUM 9.1 mg/dL (8.4-10.2); CARBON DIOXIDE 26 mmol/L (22-30); CHLORIDE 105 mmol/L (98-107); GLUCOSE 124 mg/dL (75-110); POTASSIUM 3.9 mmol/L (3.6-5.0); SODIUM 140.3 mmol/L (137-145)
[2017-08-24] MEDS: INSULIN LISPRO 100 UNIT/ML 3 ML VIAL SUBCUT PRN ×3 (09:50→17:21)
[2017-08-24] MEDS: INSULIN LISPRO 100 UNIT/ML 3 ML VIAL SUBCUT SCH ×3 (09:50→16:39)
[2017-08-24] MEDS: ENOXAPARIN SODIUM INJ 40 MG/0.4 ML DISP.SYRIN SUBCUT SCH (09:50)
[2017-08-24] MEDS: LISINOPRIL 10 MG TABLET PO SCH (09:51)
[2017-08-24] MEDS: DOCUSATE SODIUM 100 MG CAPSULE PO SCH ×2 (09:51→17:21)
[2017-08-24] MEDS: THIAMINE HCL 100 MG TABLET PO SCH (09:51)
[2017-08-24] MEDS: LIPASE/PROTEASE/AMYLASE 1 CAP CAPSULE.DR PO SCH ×2 (09:51→16:39)
[2017-08-24] MEDS: CARVEDILOL 12.5 MG TABLET PO SCH (09:52)
[2017-08-24] MEDS: MULTIVITAMIN TABLET PO SCH (09:52)
[2017-08-24] MEDS: OXYCODONE-ACETAMINOPHEN 5-325 MG TABLET PO PRN (09:58)
--- NOTE | 2017-08-24 15:17 | PDOC PROGRESS REPORT ---
Subjective Progress Note for:: 08/24/17 Subjective:: Patient was seen sitting up in her bed. According to her she is feeling much better. She denies chest pain, SOB, fevers, chills, n/v/d/c. She also denies difficulty with urination. With no catheter in place she produced over 1,200 mL of urine. Reason For Visit: ABD PAIN Physical Exam Vital Signs: Temp Pulse Resp BP Pulse Ox 98.8 F 85 16 139/84 H 98 08/24/17 07:28 08/24/17 07:28 08/24/17 07:28 08/24/17 07:28 08/24/17 07:28 Intake & Output 08/23/17 08/24/17 08/25/17 06:59 06:59 06:59 Intake Total 1338 2760 Output Total 2640 1225 Balance -1302 1535 Weight 64.2 kg 59.6 kg General appearance: PRESENT: no acute distress, well-developed, well-nourished Mouth exam: PRESENT: moist, neck supple Respiratory exam: PRESENT: clear to auscultation teddy. ABSENT: accessory muscle use, crackles, rales, rhonchi, wheezes Cardiovascular exam: PRESENT: RRR, +S1, +S2 Extremities exam: ABSENT: pedal edema, tenderness, +1 edema, +2 edema Musculoskeletal exam: PRESENT: normal inspection. ABSENT: tenderness Neurological exam: PRESENT: alert, awake, oriented to person, oriented to place , oriented to time, oriented to situation Psychiatric exam: PRESENT: appropriate affect, normal mood Skin exam: PRESENT: dry, intact, warm. ABSENT: cyanosis Results Laboratory Results: 08/24/17 06:28 08/24/17 06:28 08/24/17 08/24/17 06:28 06:28 WBC 7.8 RBC 3.25 L Hgb 9.8 L Hct 28.3 L MCV 87 MCH 30.2 MCHC 34.7 RDW 14.1 H Plt Count 292 Seg Neutrophils % 56.3 Lymphocytes % 29.1 Monocytes % 12.7 Eosinophils % 1.3 Basophils % 0.6 Absolute Neutrophils 4.4 Absolute Lymphocytes 2.3 Absolute Monocytes 1.0 Absolute Eosinophils 0.1 Absolute Basophils 0.0 Sodium 140.3 Potassium 3.9 Chloride 105 Carbon Dioxide 26 Anion Gap 9 BUN 26 H Creatinine 1.13 Est GFR ( Amer) > 60 Est GFR (Non-Af Amer) 54 L Glucose 124 H Calcium 9.1 Impressions: Abdomen CT 08/17/17 00:00 IMPRESSION: Punctate calcifications at the pancreatic head from prior episodes of pancreatitis. No gross peripancreatic inflammation or peripancreatic fluid collections on today's study. Abdomen Ultrasound 08/17/17 00:00 IMPRESSION: No significant intra-abdominal abnormalities were identified. Findings as noted above Abdomen/Pelvis CT 08/22/17 00:00 IMPRESSION: Few punctate calcifications along the pancreatic head from prior episodes of pancreatitis. Currently, no peripancreatic retroperitoneal inflammation or fluid is present. Renal Ultrasound 08/23/17 00:00 IMPRESSION: NO DOPPLER EVIDENCE OF HEMODYNAMICALLY SIGNIFICANT RENAL ARTERY STENOSIS. Vascular Ultrasound 08/23/17 00:00 IMPRESSION: NO DOPPLER EVIDENCE OF HEMODYNAMICALLY SIGNIFICANT RENAL ARTERY STENOSIS. Assessment & Plan - Diagnosis (1) RONIT (acute kidney injury) Is this a current diagnosis for this admission?: Yes Plan: looks to be at baseline with a creatinine of 1.1. At this time patient is okay for discharge and recommend follow up in [address] Anguiano. (2) Hypertension Qualifiers: Hypertension type: essential hypertension Qualified Code(s): I10 - Essential (primary) hypertension Is this a current diagnosis for this admission?: Yes Plan: currently well controlled (3) Pancreatitis Qualifiers: Chronicity: acute Pancreatitis type: alcohol induced Acute pancreatitis complication: unspecified Qualified Code(s): K85.20 - Alcohol induced acute pancreatitis without necrosis or infection Is this a current diagnosis for this admission?: Yes (4) Chronic kidney disease Qualifiers: Chronic kidney disease stage: stage 2 (mild) Qualified Code(s): N18.2 - Chronic kidney disease, stage 2 (mild) Is this a current diagnosis for this admission?: Yes Plan: looks to have underling stage 2 kidney disease due to diabetes and hypertension. Other factors that could be affecting the kidneys are urinary retention and illegal drug use. (5) History of alcoholism Is this a current diagnosis for this admission?: Yes (6) Type 2 diabetes mellitus Qualifiers: Diabetes mellitus fpc insulin use: with manager intermediate use Diabetes mellitus complication status: with hyperglycemia Qualified Code(s): E11.65 - Type 2 diabetes mellitus with hyperglycemia; Z79.4 - supervisor intermediates (current) use of insulin; Z79.4 - supervisor intermediates (current) use of insulin; Z79.4 - penitentiary (current ) use of insulin; Z79.4 - supervisor intermediates (current) use of insulin Is this a current diagnosis for this admission?: Yes Plan: discussed with the patient a need for a proper diabetic diet to prevent worsening of the nerve and kidney damage that has been done. (7) Urinary retention Plan: concerns for neurogenic bladder with the difficulty urinating. Recommend a pre and post void study.
--- NOTE | 2017-08-24 16:09 | PDOC DISCHARGE SUMMARY ---
General - Admit/Disc Date/PCP Admission Date/Primary Care Provider: 08/17/17 03:59 RADHA LOCKHART MD Discharge Date: 08/24/17 - Discharge Diagnosis (1) Pancreatitis Is this a current diagnosis for this admission?: Yes Summary: Patient of a chronic pancreatitis currently all resolved due to the alcohol (2) History of alcoholism Is this a current diagnosis for this admission?: Yes Summary: Patient's claim she is not currently drinking any alcohol (3) SUBSTANCE DRUG ABUSED Is this a current diagnosis for this admission?: Yes Summary: Discussed with the patient about the drug abuse counseling A psych appointment for bipolar disorders (4) Chronic kidney disease Is this a current diagnosis for this admission?: Yes Summary: Since current creatinine stable's follow outpatients Dr. Anguiano (5) Hypertension Is this a current diagnosis for this admission?: Yes Summary: Continues on lisinopril and Coreg discussed with the patient's check a blood pressures daily (6) Type 2 diabetes mellitus Is this a current diagnosis for this admission?: Yes Summary: And a very labile blood sugar issues due to the possible underlying chronic pancreatitis patients is to follow outpatient tone cabinet assembler Patient's blood sugars discharge date is around 150-200 range Very extensive discussed with the patient's continues to Lantus 25-26 units at night's and a sliding scales and watch for the hypoglycemia [place] appointment to see the tone cabinet assembler (7) RONIT (acute kidney injury) Is this a current diagnosis for this admission?: Yes Summary: Currently all resolved (8) Hyperglycemia Is this a current diagnosis for this admission?: Yes Summary: Currently all resolved (9) Anemia Is this a current diagnosis for this admission?: Yes Summary: Currently all stable follow outpatients GI (10) Tooth ache Is this a current diagnosis for this admission?: Yes Summary: Patient's is to see the dentist there is no oral surgery is available in the hospital - Additional Information Resuscitation Status: Full Code Discharge Diet: Diabetic Discharge Activity: Activity As Tolerated Prescriptions: Carvedilol [Coreg 12.5 mg Tablet] 12.5 mg PO Q12 #60 tablet Gabapentin [Neurontin 100 mg Capsule] 100 mg PO Q8 #90 capsule Lansoprazole [Prevacid 30 mg Odt Tablet] 30 mg PO Q6AM #30 tab.rap. Lipase/Protease/Amylase [Pancreaze-10 Capsule.] 1 cap PO BIDACBS #60 capsule.dr Home Medications: Atorvastatin Calcium [Lipitor 20 mg Tablet] 20 mg PO QHS 08/17/17 Gabapentin [Neurontin 100 mg Capsule] 100 mg PO Q8 #90 capsule 08/19/17 Lansoprazole [Prevacid 30 mg Odt Tablet] 30 mg PO Q6AM #30 tab.rap. 08/19/17 Lipase/Protease/Amylase [Pancreaze-10 Capsule.] 1 cap PO BIDACBS #60 capsule. 08/19/17 Insulin Aspart [Novolog Insulin (Aspart) 100 unit/mL] 5 units SQ MEALS #3 Insulin Glargine,Hum.rec.anlog [Lantus Insulin 100 Unit/1 ml 10 ml] 20 units SQ QHS #3 08/22/17 Lisinopril [Zestril] 40 mg PO DAILY #30 08/22/17 Carvedilol [Coreg 12.5 mg Tablet] 12.5 mg PO Q12 #60 tablet 08/24/17 History of Present Illness History of Present Illness: JJ HOFFMAN is a 36 year old female This 36-year-old females with a history of the alcoholism with the history of the chronic pancreatitis history of the substance drug abuse recently moved from the [place] as a new patients to the [facility] couple of weeks back of a multiple hospital admission in the past and recently multiple ER visit for abdominal pain nausea and vomitingAnd recently came to the ER and a CT scan of the abdomen and pelvis with oral contrast was done was no acute finding came to the emergency department with intractable nausea vomiting and abdominal painPatient's lipase was elevated without elevation of the LFT just most related to chronic pancreatitis Since urine drug screen is positive for marijuana and opioid patient's denied using the drugs Patients not drinking alcohol as per patient see not sure since last 6 month Patient have a history of the peptic ulcer disease and history of the type 2 diabetes was currently very noncompliance with the patient hemoglobin A1c is 12 Patient have a history of the stroke in the past according to the patient's when she was in the hospital in [place] Patients when I saw in the floor denied any chest pain denied any shortness of the breath the abdominal pain is still there Patient's able to keep the clear liquid downs Hospital Course Hospital Course: This is a 36-year-old female with a significant medical problem as able the chronic pancreatitis due to the chronic alcoholism in the past history of the bipolar disorder and substance drug abuse came to the emergency department with abdominal pain with a several ER visit CT scan of the abdomen and pelvis was done with so some pancreatic calcifications but no other acute Patient's was given IV fluid patient's response but still complaining a lot of pains in the patient at this point GI was consulted and underwent for the endoscopy with some some mild gastritis and suggest follow outpatient continues to PPI Despite of the GI consults the patient's lipase is getting better patient still was complaining of pain and a repeat CT scan of the abdomen and pelvis was done which is all stable and the surgery was consulted and suggest no need for further interventions Labile blood pressures and kidney functions and Dr. Anguiano was consulted and underwent for the retroperitoneal ultrasound and arterial Doppler ultrasound which is all stable Patients have also labile blood sugars which strict dietary consult was placed and adjust the insulin and on discharge the patient's blood sugars running 150 range Patient seen by the psych and suggest the patient's probable bipolar unit of Zyprexa and follow outpatient Patient is very dramatic to his according to the nursing staff patients very happy present in patients walk around in the hallway without any problem and p.o. intake is good but when the patient see the physicians patient started complaining of pain and crying Today's very extensive discussions with the patient regarding ongoing chronic problems with discussed all the test reports and discussed to follow outpatients GI and outpatients tone cabinet assembler Patients might need MRI of the abdomen was to kidney function is get better and stable for further evaluation ongoing pancreatitis and possible GI evaluations Patient's otherwise denied any chest pain denied any shortness of the breath patient's p.o. intake is fair patients walk in the hallway without any problems patient's vital sign is all stable Very extensive discussions with the patient's to compliance with the medications and noncompliance with the medications using the substance drug abuse list to multiple complications including the severe hypoglycemia causing the cardiovascular cerebrovascular accident and patient understand very well I hope the patient's continues to follow closely and discussed with the patient of the continues to be noncompliance patients need to to find other physicians Physical Exam Vital Signs: Temp Pulse Resp BP Pulse Ox 98.0 F 90 12 124/78 99 08/24/17 11:11 08/24/17 11:11 08/24/17 11:11 08/24/17 11:11 08/24/17 11:11 Intake & Output 08/23/17 08/24/17 08/25/17 06:59 06:59 06:59 Intake Total 1338 2760 Output Total 2640 1225 Balance -1302 1535 Weight 64.2 kg 59.6 kg General appearance: PRESENT: no acute distress, well-developed, well-nourished Head exam: PRESENT: atraumatic, normocephalic Eye exam: PRESENT: conjunctiva pink, EOMI, PERRLA. ABSENT: scleral icterus Ear exam: PRESENT: normal external ear exam Mouth exam: PRESENT: moist, tongue midline Neck exam: PRESENT: full ROM. ABSENT: carotid bruit, JVD, lymphadenopathy, thyromegaly Respiratory exam: PRESENT: clear to auscultation teddy Cardiovascular exam: PRESENT: RRR. ABSENT: diastolic murmur, rubs, systolic murmur Pulses: PRESENT: normal dorsalis pedis pul, +2 pedal pulses bilateral Vascular exam: PRESENT: normal capillary refill GI/Abdominal exam: PRESENT: normal bowel sounds, soft. ABSENT: distended, guarding, mass, organolmegaly, rebound, tenderness Rectal exam: PRESENT: deferred Extremities exam: ABSENT: pedal edema Musculoskeletal exam: PRESENT: ambulatory Neurological exam: PRESENT: alert, awake, oriented to person, oriented to place , oriented to time, oriented to situation, CN II-XII grossly intact. ABSENT: motor sensory deficit Psychiatric exam: PRESENT: appropriate affect, normal mood. ABSENT: homicidal ideation, suicidal ideation Skin exam: PRESENT: dry, intact, warm. ABSENT: cyanosis, rash Results Laboratory Results: 08/24/17 06:28 08/24/17 06:28 08/24/17 08/24/17 06:28 06:28 WBC 7.8 RBC 3.25 L Hgb 9.8 L Hct 28.3 L MCV 87 MCH 30.2 MCHC 34.7 RDW 14.1 H Plt Count 292 Seg Neutrophils % 56.3 Lymphocytes % 29.1 Monocytes % 12.7 Eosinophils % 1.3 Basophils % 0.6 Absolute Neutrophils 4.4 Absolute Lymphocytes 2.3 Absolute Monocytes 1.0 Absolute Eosinophils 0.1 Absolute Basophils 0.0 Sodium 140.3 Potassium 3.9 Chloride 105 Carbon Dioxide 26 Anion Gap 9 BUN 26 H Creatinine 1.13 Est GFR ( Amer) > 60 Est GFR (Non-Af Amer) 54 L Glucose 124 H Calcium 9.1 Impressions: Abdomen CT 08/17/17 00:00 IMPRESSION: Punctate calcifications at the pancreatic head from prior episodes of pancreatitis. No gross peripancreatic inflammation or peripancreatic fluid collections on today's study. Abdomen Ultrasound 08/17/17 00:00 IMPRESSION: No significant intra-abdominal abnormalities were identified. Findings as noted above Abdomen/Pelvis CT 08/22/17 00:00 IMPRESSION: Few punctate calcifications along the pancreatic head from prior episodes of pancreatitis. Currently, no peripancreatic retroperitoneal inflammation or fluid is present. Renal Ultrasound 08/23/17 00:00 IMPRESSION: NO DOPPLER EVIDENCE OF HEMODYNAMICALLY SIGNIFICANT RENAL ARTERY STENOSIS. Vascular Ultrasound 08/23/17 00:00 IMPRESSION: NO DOPPLER EVIDENCE OF HEMODYNAMICALLY SIGNIFICANT RENAL ARTERY STENOSIS. Qualifiers - * PATIENT BEING DISCHARGED WITH ANY OF THE FOLLOWING DIAGNOSIS: No VTE patient discharged on overlapping Therapy?: Yes Plan Time Spent: Greater than 30 Minutes - Follow outpatients in a 1 or 2 weeks repeat CBC Chem-12 and lipase Follow outpatients tone cabinet assembler and outpatients GI Check a blood sugar at least 2 or 3 times a day Watch for any hypoglycemia
[2017-08-24 18:42] VITALS: BP 134/84
== END 2017-08-24 18:45 | disposition home or self-care (01) | DRG 439 ==
LOC: ER 20:57 → EH 08-17 03:59 → 5 08-17 06:03
PROVIDERS: ADMIT Family Medicine; ATTEND Family Medicine
PROC: 0DD68ZX Extraction of Stomach, Via Natural or Artificial Opening Endoscopic, Diagnostic (ICD-10-PCS; principal; 2017-08-17 13:00)
DX: K85.20 Alcohol induced acute pancreatitis without necrosis or infection (principal); N17.9 Acute kidney failure, unspecified; R10.9 Unspecified abdominal pain; K86.1 Other chronic pancreatitis; E11.22 Type 2 diabetes mellitus with diabetic chronic kidney disease; E11.65 Type 2 diabetes mellitus with hyperglycemia; I12.9 Hypertensive chronic kidney disease with stage 1 through stage 4 chronic kidney disease, or unspecified chronic kidney disease; N18.2 Chronic kidney disease, stage 2 (mild); K29.70 Gastritis, unspecified, without bleeding; K29.80 Duodenitis without bleeding; D64.9 Anemia, unspecified; K08.89 Other specified disorders of teeth and supporting structures; R33.9 Retention of urine, unspecified; E78.5 Hyperlipidemia, unspecified; F17.210 Nicotine dependence, cigarettes, uncomplicated; F12.10 Cannabis abuse, uncomplicated; F10.11 Alcohol abuse, in remission; F31.9 Bipolar disorder, unspecified; Y90.0 Blood alcohol level of less than 20 mg/100 ml; Z86.73 Personal history of transient ischemic attack (TIA), and cerebral infarction without residual deficits; Z79.4 Long term (current) use of insulin; Z79.899 Other long term (current) drug therapy
CPT/HCPCS: 36415; 43239; 731; 74150; 74176; 76700; 76775; 80048; 80053; 80307; 81001; 82947; 82962; 83690; 84703; 85025; 87086; 87088; 88305; 93976; 96361; 96374; 96376; 99285; J0360; J1170; J1650; J1815; J1885; J2704; J3490; J7030; J7120; S0028; S0119

== ENCOUNTER 2017-08-27 12:27 | Emergency (ER) | payer MEDICAID ==
[2017-08-27 12:58] LABS: ABSOLUTE LYMPHOCYTES (AUTO) 1.6 10^3/uL (0.5-4.7); ABSOLUTE MONOCYTES (AUTO) 0.6 10^3/uL (0.1-1.4); ABSOLUTE NEUT (AUTO) 8.1 10^3/uL (1.7-8.2); BASOPHILS % (AUTO) 0.4 % (0-2); EOSINOPHILS % (AUTO) 0.4 % (0-6); HEMATOCRIT 32.3 % (36.0-47.0); HEMOGLOBIN 10.6 g/dL (12.0-15.5); LYMPHOCYTES % (AUTO) 15.5 % (13-45); MEAN CORPUSCULAR HEMOGLOBIN 28.8 pg (27.0-33.4); MEAN CORPUSCULAR HGB CONC 32.9 g/dL (32.0-36.0); MEAN CORPUSCULAR VOLUME 88 fl (80-97); MONOCYTES % (AUTO) 5.9 % (3-13); PLATELET COUNT 362 10^3/uL (150-450); RED BLOOD COUNT 3.68 10^6/uL (3.72-5.28); SEGMENTED NEUTROPHILS % (AUTO) 77.8 % (42-78); TOTAL CELLS COUNTED % (AUTO) 100 %; WHITE BLOOD COUNT 10.4 10^3/uL (4.0-10.5)
[2017-08-27 13:14] LABS: ALANINE AMINOTRANSFERASE 29 U/L (9-52); ALBUMIN 3.9 g/dL (3.5-5.0); ALKALINE PHOSPHATASE 144 U/L (38-126); ANION GAP 15 (5-19); ASPARTATE AMINO TRANSFERASE 24 U/L (14-36); BILIRUBIN,DIRECT 0.4 mg/dL (0.0-0.4); BILIRUBIN,TOTAL 0.4 mg/dL (0.2-1.3); BLOOD UREA NITROGEN 21 mg/dL (7-20); CALCIUM 9.4 mg/dL (8.4-10.2); CARBON DIOXIDE 24 mmol/L (22-30); CHLORIDE 96 mmol/L (98-107); CREATINE KINASE 76 U/L (30-135); LIPASE 255.9 U/L (23-300); POTASSIUM 4.7 mmol/L (3.6-5.0); SODIUM 135.1 mmol/L (137-145); TOTAL PROTEIN 7.2 g/dL (6.3-8.2)
[2017-08-27] MEDS ORDERED: NORMAL SALINE 1000 ML 1,000 ML IV ONE (13:19)
[2017-08-27 13:20] LABS: ALCOHOL < 10 mg/dL (NONE DETECTED)
--- NOTE | 2017-08-27 13:21 | RADIOLOGY REPORT (SQ) ---
EXAM DESCRIPTION: CT HEAD WITHOUT COMPLETED DATE/TIME: 08/27/2017 1:09 pm REASON FOR STUDY: seizures x 3 COMPARISON: None. TECHNIQUE: Axial images acquired through the brain without intravenous contrast. Images reviewed wi th bone, brain and subdural windows. Images stored on PACS. All CT scanners at this facility use dose modulation, iterative reconstruction, and/or weight based d osing when appropriate to reduce radiation dose to as low as reasonably achievable (ALARA). [facility]: Dose Right [facility]: CareDose [facility]: Dose Right [facility]: Teradose 4D [facility]: [employer] RADIATION DOSE: CT Rad equipment meets quality standard of care and radiation dose reduction techniq ues were employed. CTDIvol: 53.2 mGy. DLP: 1044 mGy-cm. mGy. LIMITATIONS: None. FINDINGS: VENTRICLES: Normal size and contour. CEREBRUM: No masses. No hemorrhage. No midline shift. No evidence for acute infarction. Normal gra y/white matter differentiation. No areas of low density in the white matter. CEREBELLUM: No masses. No hemorrhage. No alteration of density. No evidence for acute infarction. EXTRAAXIAL SPACES: No fluid collections. No masses. ORBITS AND GLOBE: No intra- or extraconal masses. Normal contour of globe without masses. CALVARIUM: No fracture. PARANASAL SINUSES: No fluid or mucosal thickening. SOFT TISSUES: No mass or hematoma. OTHER: No other significant finding. IMPRESSION: NORMAL BRAIN CT WITHOUT CONTRAST. EVIDENCE OF ACUTE STROKE: NO. COMMENT: Quality ID # [id number]: Final reports with documentation of one or more dose reduction techniques (e.g., Automated exposure control, adjustment of the mA and/or kV according to patient size, use of iterative reconstruction technique) TECHNICAL DOCUMENTATION: JOB ID: [id number] 2010 [employer]- All Rights Reserved Reading location - IP/workstation name: [email or web address]
[2017-08-27 13:22] LABS: CREATINE KINASE MB 0.73 ng/mL (<4.55)
[2017-08-27 13:26] LABS: GLUCOSE 468 mg/dL (75-110)
[2017-08-27] MEDS ORDERED: OXYCODONE-ACETAMINOPHEN 5-325 MG TABLET PO ONE (13:28)
[2017-08-27 13:32] LABS: APPEARANCE,URINE CLEAR; BILIRUBIN,URINE NEGATIVE (NEGATIVE); COLOR,URINE STRAW; GLUCOSE, URINE >=500 mg/dL (NEGATIVE); KETONES,URINE 20 mg/dL (NEGATIVE); LEUKOCYTE ESTERASE,URINE NEGATIVE (NEGATIVE); NITRITE,URINE NEGATIVE (NEGATIVE); PROTEIN,URINE 100 mg/dL (NEGATIVE); URINE SPECIFIC GRAVITY 1.016; UROBILINOGEN,URINE NEGATIVE mg/dL (<2.0)
[2017-08-27 13:34] LABS: TROPONIN I < 0.012 ng/mL
--- NOTE | 2017-08-27 13:36 | RADIOLOGY REPORT (SQ) ---
EXAM DESCRIPTION: CHEST SINGLE VIEW COMPLETED DATE/TIME: 08/27/2017 1:23 pm REASON FOR STUDY: seizures x 3 and left sided chest pain COMPARISON: 07/29/2017. EXAM PARAMETERS: NUMBER OF VIEWS: One view. TECHNIQUE: Single frontal radiographic view of the chest acquired. RADIATION DOSE: NA LIMITATIONS: None. FINDINGS: LUNGS AND PLEURA: No acute infiltrates or effusions. No pneumothorax. MEDIASTINUM AND HILAR STRUCTURES: No masses. Contour normal. HEART AND VASCULAR STRUCTURES: The heart is normal with normal pulmonary vasculature. BONES: No acute findings. HARDWARE: None in the chest. OTHER: Chest leads in place. IMPRESSION: NO ACUTE DISEASE. TECHNICAL DOCUMENTATION: JOB ID: [id number] 2010 [employer]- All Rights Reserved Reading location - IP/workstation name: [email or web address]
[2017-08-27] MEDS ORDERED: PROMETHAZINE HCL INJ 50 MG/1 ML VIAL IM ONE (13:49)
[2017-08-27 13:54] LABS: URINE AMPHETAMINES SCREEN NEGATIVE; URINE BARBITURATES SCREEN NEGATIVE; URINE BENZODIAZEPINES SCREEN NEGATIVE; URINE COCAINE SCREEN NEGATIVE; URINE MARIJUANA (THC) SCREEN UNCONFIRMED POSITIVE; URINE METHADONE SCREEN NEGATIVE; URINE PHENCYCLIDINE SCREEN NEGATIVE
[2017-08-27] MEDS ORDERED: HYDROMORPHONE HCL INJ/PF 2 MG/ML AMPULE IV ONE (14:18)
[2017-08-27] MEDS ORDERED: LISINOPRIL 10 MG TABLET PO ONE (14:18)
[2017-08-27] MEDS ORDERED: CARVEDILOL 12.5 MG TABLET PO ONE (14:18)
--- NOTE | 2017-08-27 14:56 | RADIOLOGY REPORT (SQ) ---
EXAM DESCRIPTION: ABDOMEN 2 VIEWS COMPLETED DATE/TIME: 08/27/2017 2:45 pm REASON FOR STUDY: left sided abd pain COMPARISON: None. NUMBER OF VIEWS: Two views. TECHNIQUE: Supine and erect/decubitus radiographic images of the abdomen acquired. LIMITATIONS: None. FINDINGS: FREE AIR: None. No abnormal gas collections. LUNG BASES: Clear. BOWEL GAS PATTERN: There are multiple air-filled, nondilated loops of small bowel present. There is a large stool burden present throughout the colon. CALCIFICATIONS: No suspicious calcifications. SOFT TISSUES: No gross mass or suggestion of organomegaly. HARDWARE: None in the abdomen. BONES: No acute fracture. No worrisome bone lesions. OTHER: No other significant finding. IMPRESSION: Nonspecific, mildly abnormal bowel gas pattern without dillon obstruction. Heavy colonic stool burden. TECHNICAL DOCUMENTATION: JOB ID: [id number] [employer]- All Rights Reserved Reading location - IP/workstation name: [email or web address]
[2017-08-27] MEDS ORDERED: DIPHENHYDRAMINE HCL 50 MG/ML VIAL IV ONE (15:23)
[2017-08-27] MEDS ORDERED: METOCLOPRAMIDE HCL INJ/PF 10 MG/2 ML SDV IV ONE (15:23)
--- NOTE | 2017-08-27 15:36 | ER Document Report ---
ED General - General Chief Complaint: Unresponsive Stated Complaint: SYNCOPE Time Seen by Provider: 08/27/17 12:42 Mode of Arrival: Stretcher Information source: Patient, Relative, [facility] Records Notes: On arrival patient was apparently having a seizure in the car and was brought emergently to the trauma bay 1 in the main side of the emergency department. Patient was unresponsive for the nurse and unable to provide any history to me initially, after patient stabilized and woke up patient was able to tell me that she had left-sided abdominal pain, history of seizures, and was recently discharged from the hospital after having an acute flare of chronic pancreatitis. Patient states that she is supposed to be starting dialysis next week however I can see no record of this in the computer from her recent visit. Patient does have a history of seizures, has never been evaluated for these, does not take any medications. Patient states that she has been having seizures for at least a year and is not concerned by today's seizure. States that she was coming in to have her abdominal pain checked out. Denies fevers, admits vomiting. Denies blood in her vomit. States the pain was improved but not gone when she left the hospital and it has come back. States she has not been able to take her insulin or her antihypertensives because she has not yet gotten them filled. TRAVEL OUTSIDE OF THE [place] IN LAST 30 DAYS: No - Related Data Allergies/Adverse Reactions: hydrocodone [From [place]] Allergy (Verified 08/27/17 12:30) morphine Allergy (Verified 08/27/17 12:30) Past Medical History - General Information source: Patient - Social History Smoking Status: Current Every Day Smoker Frequency of alcohol use: None - Former heavy drinker, states she has not had alcohol in several years. Drug Abuse: Marijuana - States she does not use marijuana but her urine drug screen is positive, when confronted admits that she used to 2-3 weeks ago. Lives with: Family Family History: Reviewed & Not Pertinent Patient has suicidal ideation: No Patient has homicidal ideation: No - Past Medical History Cardiac Medical History: Reports: Hx Hypercholesterolemia, Hx Hypertension Endocrine Medical History: Reports: Hx Diabetes Mellitus Type 2 Renal/ Medical History: Denies: Hx Peritoneal Dialysis Past Surgical History: Reports: Hx Section - x3, Hx Hysterectomy Review of Systems - Review of Systems Constitutional: Other - Seizure and unresponsive EENT: No symptoms reported Cardiovascular: No symptoms reported Respiratory: No symptoms reported Gastrointestinal: See HPI Neurological/Psychological: See HPI, Seizure -: Yes All other systems reviewed and negative Physical Exam - Vital signs Vitals: Resp Pulse Ox 29 H 93 08/27/17 12:31 18 12:31 - Notes Notes: GENERAL: Initially wheeled in on a stretcher, unresponsive for nurses, I performed a sternal rub and the patient awakened to painful stimuli. HEAD: Normocephalic, atraumatic EYES: Pupils equal, round and reactive to light, extraocular movements intact. ENT: Oral mucosa moist, tongue midline. NECK: Full range of motion, supple, trachea midline. LUNGS: Clear to auscultation bilaterally, no wheezes, rales or rhonchi, no respiratory distress. HEART: Regular rate and rhythm, no murmurs, gallops, rubs. ABDOMEN: Soft, left upper quadrant tenderness to palpation, mild voluntary guarding, no involuntary guarding, no rigidity or rebounding, nondistended, bowel sounds present in all 4 quadrants. EXTREMITIES: Moves all 4 extremities spontaneously, no edema, radial and dorsalis pedis pulses 2/4 bilaterally. No cyanosis. NEUROLOGICAL: Initially unresponsive, slowly awakened after sternal rub, initially confused and after approximately 30 minutes sensorium cleared, able to relate medical history, was then oriented x3, normal speech, biceps and patellar DTRs 2+ bilaterally. PSYCH: Initially confused and tearful, then normalized. SKIN: Warm, Dry, normal turgor. Course - Re-evaluation Re-evalutation: 08/27/17 15:31 Patient arrived she was unresponsive for the nurse by the time she got back to the trauma bay she was arousable to sternal rub but she was confused, over the next 30 minutes she normalized and was able to tell us that she does have a history of seizures, came to the emergency department because she was having left upper quadrant abdominal pain and vomiting. States that she has not been taking her antihypertensives or her insulin because she does not think her home insulin is working and she has not gotten her new prescription filled. CT scan of the head shows no acute intracranial process. Patient has never been treated for her seizures or evaluated for his seizures which started over a year ago, has not seen a neurologist. Patient has had no further seizures since coming to the trauma bay in the main side of the emergency department. CBC shows chronic anemia with hemoglobin 10.6, no leukocytosis, no left shift, CMP shows slightly elevated BUN, no increased gap, normal CO2, glucose is elevated at 468, this is consistent with the fact that the patient says she has not yet gotten her new insulin prescription filled. Patient is hypertensive here, has not taken her antihypertensives today, now that her antihypertensives have been given patient's blood pressure has decreased to 145/87, lipase is normal, cardiac enzymes negative, test is negative, urinalysis shows 20 ketones and large glucose, no evidence of infection. Urine drug screen shows marijuana despite the fact that she denies using it. Acute abdominal series was performed to rule out obstruction, patient had several CAT scans during her recent hospital stay from which she was released 2-3 days ago and none of them showed acute intra-abdominal process. Acute abdominal series showed large colonic stool burden but no sign of obstruction or free air. I suspect that a significant part of her pain and vomiting is actually coming from diabetic gastroparesis, patient's pain was not controlled by Percocet, she was given half milligram of Dilaudid and her pain is completely controlled, she has had no further vomiting here after being given Phenergan IM. Patient will be given Reglan and Benadryl here as well to help with gastric motility. Patient will be discharged to home on Reglan, asked to follow-up with Dr. Lockhart on Tuesday. She is also been given some insulin and normal saline for her hyperglycemia. I do suspect some of her pain is also coming from her stool burden, patient is encouraged to take magnesium citrate 1 bottle at home. - Vital Signs Vital signs: Temp Pulse Resp BP Pulse Ox 98.9 F 106 H 18 169/122 H 96 08/27/17 12:35 08/27/17 12:35 08/27/17 13:30 08/27/17 13:30 08/27/17 13:30 - Laboratory Result Diagrams: 08/27/17 12:38 08/27/17 12:38 Laboratory results interpreted by me: 08/27/17 08/27/17 08/27/17 12:38 12:38 13:00 RBC 3.68 L Hgb 10.6 L Hct 32.3 L Sodium 135.1 L Chloride 96 L BUN 21 H Est GFR (Non-Af Amer) 57 L Glucose 468 H* Alkaline Phosphatase 144 H Urine Protein 100 H Urine Glucose (UA) >=500 H Urine Ketones 20 H Urine Blood SMALL H - EKG Interpretation by Me Additional EKG results interpreted by me: 08/27/17 15:36 EKG shows sinus tachycardia at a rate of 105, there is some motion artifact, no ST segment elevations or depressions, no T-wave inversions, there are inverted T waves noted in aVL and biphasic P waves in V 2 per my interpretation. Repeat EKG shows sinus tachycardia at a rate of 108, normal axis, normal intervals, no ST segment elevations or depressions, continued T-wave inversions in aVL and biphasic T waves in V2 again there is baseline motion artifact per my interpretation. Final EKG without significant motion artifact shows sinus tachycardia at a rate of 110, normal axis, normal intervals, no ST segment questions, no T-wave inversions, P waves unchanged in aVL and V2 continue to be inverted and biphasic. Per my interpretation. Discharge - Discharge Clinical Impression: Hyperglycemia, Diabetic gastroparesis associated with type 2 diabetes mellitus , Intermittent left upper quadrant abdominal pain Pancreatitis Qualifiers: Chronicity: chronic Pancreatitis type: alcohol induced Qualified Code(s): K86.0 - Alcohol-induced chronic pancreatitis Anemia Qualifiers: Anemia type: due to chronic kidney disease Chronic kidney disease stage: stage 2 (mild) Qualified Code(s): N18.2 - Chronic kidney disease, stage 2 (mild); D63.1 - Anemia in chronic kidney disease; D63.1 - Anemia in chronic kidney disease Hypertension Qualifiers: Hypertension type: renovascular hypertension Qualified Code(s): I15.0 - Renovascular hypertension Condition: Stable Disposition: HOME, SELF-CARE Additional Instructions: You need to drink plenty of fluids. Take your insulin as prescribed. Take your high blood pressure pills as prescribed. I suspect some of your pain is coming from diabetic gastroparesis. This is where your stomach and your intestines move more slowly than usual because of damage from diabetes. Taking the Reglan 1 pill 4 times a day as directed will help with this. You likely also have some constipation causing some of your pain as well. Use the magnesium citrate 1 bottle to help to clean out your intestines. Then you may use MiraLAX as directed [id number] to help soften your stools. You should have one soft bowel movement every day. Prescriptions: Magnesium Citrate 295 ml PO ONCE PRN #1 solution PRN Reason: Metoclopramide HCl [Reglan 10 mg Tablet] 10 mg PO ACHS #30 tablet Referrals: RADHA LOCKHART MD [Primary Care Provider] - 08/29/17
[2017-08-27] MEDS ORDERED: INSULIN REG, HUMAN 100 UNIT/ML 3 ML VIAL (PYX) SUBCUT ONE (16:21)
[2017-08-27 18:10] VITALS: BP 103/64
--- NOTE | 2017-08-27 22:10 | EKG REPORT ---
SEVERITY:- ABNORMAL ECG - SINUS TACHYCARDIA LEFT VENTRICULAR HYPERTROPHY : Confirmed by: Valentina Fierro 27-Aug-2017 22:10:17
--- NOTE | 2017-08-27 22:11 | EKG REPORT ---
SEVERITY:- ABNORMAL ECG - SINUS TACHYCARDIA PROBABLE LEFT ATRIAL ABNORMALITY LEFT VENTRICULAR HYPERTROPHY : Confirmed by: Valentina Fierro 27-Aug-2017 22:10:30
== END 2017-08-27 18:10 | disposition home or self-care (01) ==
LOC: ER 12:27
DX: K86.0 Alcohol-induced chronic pancreatitis (principal); N18.2 Chronic kidney disease, stage 2 (mild); D63.1 Anemia in chronic kidney disease; I15.0 Renovascular hypertension; E11.65 Type 2 diabetes mellitus with hyperglycemia; E11.43 Type 2 diabetes mellitus with diabetic autonomic (poly)neuropathy; K31.84 Gastroparesis; R10.12 Left upper quadrant pain; R55 Syncope and collapse; F17.200 Nicotine dependence, unspecified, uncomplicated; R56.9 Unspecified convulsions; Z88.6 Allergy status to analgesic agent; Z79.4 Long term (current) use of insulin
CPT/HCPCS: 93005; 99285; 96372; 96361; 96374; 96375; 36415; 82553; 82962; 80307 ×2; 82550; 83690; 83735; 84703; 85025; 80053; 81001; 84484; 74019; 71045; 70450; 93010; J1200; J2765; J1170; J1815; J2550; J7030; J3490

== ENCOUNTER 2017-08-28 07:36 | Emergency (ER) | payer MEDICAID ==
--- NOTE | 2017-08-28 07:45 | ER Document Report ---
ED General - General Chief Complaint: Unresponsive Stated Complaint: STOMACH PAIN Time Seen by Provider: 08/28/17 07:45 Notes: 36-year-old female to the emergency department for chief complaint of abdominal pain. Patient was seen here yesterday for the same. Patient has multiple visits over the last 3 months for abdominal pain. History of noncompliant diabetes, marijuana abuse. Hypertension. Has not been taking her medications. Was seen and treated multiple times in [facility] before moving here recently. States that she was seen here yesterday and felt better when she left now pain is back. Described as a diffuse abdominal pain. Located everywhere. She states that she has kidney disease. Patient says she has diabetes. Patient says she has hypertension. States that she has had 3 C- sections in the past as well as a partial hysterectomy. TRAVEL OUTSIDE OF THE [place] IN LAST 30 DAYS: No - HPI Onset/Duration: Gradual, Worse - Related Data Allergies/Adverse Reactions: hydrocodone [From [place]] Allergy (Verified 08/27/17 12:30) morphine Allergy (Verified 08/27/17 12:30) Past Medical History - General Information source: Patient - Social History Smoking Status: Smoker,Current Status Unk Smoking Education Provided: No Frequency of alcohol use: None Drug Abuse: Marijuana Lives with: Family Family History: Reviewed & Not Pertinent - Past Medical History Cardiac Medical History: Reports: Hx Hypercholesterolemia, Hx Hypertension Endocrine Medical History: Reports: Hx Diabetes Mellitus Type 2 Renal/ Medical History: Denies: Hx Peritoneal Dialysis Past Surgical History: Reports: Hx Section - x3, Hx Hysterectomy Review of Systems - Review of Systems Constitutional: denies: Fever, Malaise, Weakness EENT: No symptoms reported Cardiovascular: denies: Chest pain, Palpitations, Heart racing Respiratory: denies: Cough, Hurts to breathe, Short of breath Gastrointestinal: Abdominal pain, Nausea. denies: Diarrhea, Vomiting Genitourinary: denies: Burning, Dysuria, Discharge Female Genitourinary: No symptoms reported Musculoskeletal: No symptoms reported Skin: No symptoms reported Hematologic/Lymphatic: No symptoms reported Neurological/Psychological: No symptoms reported Physical Exam - Vital signs Interpretation: Hypertensive, Tachycardic - General General appearance: Appears well, Alert In distress: Moderate Notes: Anxious and agitated - HEENT Head: Normocephalic, Atraumatic Eyes: Normal Pupils: PERRL - Respiratory Respiratory status: No respiratory distress Chest status: Nontender Breath sounds: Normal Chest palpation: Normal - Cardiovascular Rhythm: Tachycardia Heart sounds: Normal auscultation Murmur: No - Abdominal Inspection: Normal Distension: No distension Bowel sounds: Normal Tenderness: Tender, Other - Diffuse tenderness to mild touch Organomegaly: No organomegaly - Back Back: Normal, Nontender - Extremities General upper extremity: Normal inspection, Nontender, Normal color, Normal ROM , Normal temperature General lower extremity: Normal inspection, Nontender, Normal color, Normal ROM , Normal temperature, Normal weight bearing. No: Raheem's sign - Neurological Neuro grossly intact: Yes Cognition: Normal Orientation: AAOx4 [place] Coma Scale Eye Opening: Spontaneous [place] Coma Scale Verbal: Oriented [place] Scale Motor: Obeys Commands [place] Scale Total: 15 Speech: Normal Motor strength normal: LUE, RUE, LLE, RLE Sensory: Normal - Psychological Associated symptoms: Normal affect, Normal mood - Skin Skin Temperature: Warm Skin Moisture: Dry Skin Color: Normal Course - Re-evaluation Re-evalutation: 08/28/17 08:05 This is a 36-year-old female patient seen multiple times in the emergency department with history of diabetes with noncompliance and recurrent abdominal pain likely gastroparesis. Explained to her that she more than likely needs to be seen by bird sitter. Explained to her the importance of keeping her blood sugar under control. At this time we will give her some nausea medication , pain medication and fluids and reassess. 08/28/17 09:48 Laboratory 08/28/17 08/28/17 07:40 07:40 WBC 9.6 RBC 3.89 Hgb 11.3 L Hct 33.8 L MCV 87 MCH 29.1 MCHC 33.6 RDW 14.1 H Plt Count 390 Seg Neutrophils % 73.5 Lymphocytes % 20.1 Monocytes % 5.4 Eosinophils % 0.4 Basophils % 0.6 Absolute Neutrophils 7.1 Absolute Lymphocytes 1.9 Absolute Monocytes 0.5 Absolute Eosinophils 0.0 Absolute Basophils 0.1 Sodium 141.1 Potassium 3.6 D Chloride 100 Carbon Dioxide 26 Anion Gap 15 BUN 28 H Creatinine 1.35 H Est GFR ( Amer) 54 L Est GFR (Non-Af Amer) 44 L Glucose 282 H Calcium 9.5 Total Bilirubin 0.4 Direct Bilirubin 0.4 Neonat Total Bilirubin Not Reportable Neonat Direct Bilirubin Not Reportable Neonat Indirect Bili Not Reportable AST 61 H ALT 30 Alkaline Phosphatase 125 Total Protein 8.0 Albumin 4.1 Lipase 99.6 08/28/17 09:52 Patient at this time feeling better. Likely patient has some narcotic addiction. Symptoms almost immediately improved after getting pain medication. - Laboratory Result Diagrams: 08/28/17 07:40 08/28/17 07:40 Laboratory results interpreted by me: 08/28/17 08/28/17 07:40 07:40 Hgb 11.3 L Hct 33.8 L RDW 14.1 H BUN 28 H Creatinine 1.35 H Est GFR ( Amer) 54 L Est GFR (Non-Af Amer) 44 L Glucose 282 H AST 61 H Discharge - Discharge Clinical Impression: Chronic abdominal pain Condition: Good Disposition: HOME, SELF-CARE Instructions: Abdominal Pain ([facility]), Antispasmodics ([facility]), Antinausea Medication ([facility]) Additional Instructions: Please follow-up with your regular doctors for further evaluation and treatment. Return if symptoms are getting worse over the next 24 hours. Prescriptions: Metoclopramide HCl [Reglan 10 mg Tablet] 10 mg PO QID #30 tablet Ondansetron [Zofran Odt 4 mg Tablet] 1 - 2 tab PO Q4H PRN #15 tab.rapdis PRN Reason: For Nausea/Vomiting Referrals: RADHA LOCKHART MD [Primary Care Provider] - Follow up as needed
[2017-08-28] MEDS ORDERED: NORMAL SALINE 1000 ML 1,000 ML IV ONE (08:00)
[2017-08-28] MEDS ORDERED: METOCLOPRAMIDE HCL INJ/PF 10 MG/2 ML SDV IV ONE (08:00)
[2017-08-28] MEDS ORDERED: HYDROMORPHONE HCL INJ/PF 2 MG/ML AMPULE IV ONE (08:00)
[2017-08-28] MEDS ORDERED: DIPHENHYDRAMINE HCL 50 MG/ML VIAL IV ONE (08:00)
[2017-08-28 08:08] LABS: ABSOLUTE BASOPHILS # (AUTO) 0.1 10^3/uL (0.0-0.2); ABSOLUTE LYMPHOCYTES (AUTO) 1.9 10^3/uL (0.5-4.7); ABSOLUTE MONOCYTES (AUTO) 0.5 10^3/uL (0.1-1.4); ABSOLUTE NEUT (AUTO) 7.1 10^3/uL (1.7-8.2); BASOPHILS % (AUTO) 0.6 % (0-2); EOSINOPHILS % (AUTO) 0.4 % (0-6); HEMATOCRIT 33.8 % (36.0-47.0); HEMOGLOBIN 11.3 g/dL (12.0-15.5); LYMPHOCYTES % (AUTO) 20.1 % (13-45); MEAN CORPUSCULAR HEMOGLOBIN 29.1 pg (27.0-33.4); MEAN CORPUSCULAR HGB CONC 33.6 g/dL (32.0-36.0); MEAN CORPUSCULAR VOLUME 87 fl (80-97); MONOCYTES % (AUTO) 5.4 % (3-13); PLATELET COUNT 390 10^3/uL (150-450); RED BLOOD COUNT 3.89 10^6/uL (3.72-5.28); RED CELL DISTRIBUTION WIDTH 14.1 % (11.5-14.0); SEGMENTED NEUTROPHILS % (AUTO) 73.5 % (42-78); TOTAL CELLS COUNTED % (AUTO) 100 %; WHITE BLOOD COUNT 9.6 10^3/uL (4.0-10.5)
[2017-08-28 08:19] LABS: ALANINE AMINOTRANSFERASE 30 U/L (9-52); ALBUMIN 4.1 g/dL (3.5-5.0); ALKALINE PHOSPHATASE 125 U/L (38-126); ANION GAP 15 (5-19); ASPARTATE AMINO TRANSFERASE 61 U/L (14-36); BILIRUBIN,DIRECT 0.4 mg/dL (0.0-0.4); BILIRUBIN,TOTAL 0.4 mg/dL (0.2-1.3); BLOOD UREA NITROGEN 28 mg/dL (7-20); CALCIUM 9.5 mg/dL (8.4-10.2); CARBON DIOXIDE 26 mmol/L (22-30); CHLORIDE 100 mmol/L (98-107); GLUCOSE 282 mg/dL (75-110); LIPASE 99.6 U/L (23-300); SODIUM 141.1 mmol/L (137-145)
[2017-08-28 08:24] LABS: POTASSIUM 3.6 mmol/L (3.6-5.0)
[2017-08-28 10:15] VITALS: BP 131/81
== END 2017-08-28 10:22 | disposition home or self-care (01) ==
LOC: ER 07:36
DX: G89.29 Other chronic pain (principal); R10.84 Generalized abdominal pain; R10.817 Generalized abdominal tenderness; R11.0 Nausea; R00.0 Tachycardia, unspecified; I10 Essential (primary) hypertension; E11.9 Type 2 diabetes mellitus without complications; N28.9 Disorder of kidney and ureter, unspecified; Z91.14 Patient's other noncompliance with medication regimen; Z88.0 Allergy status to penicillin; Z90.711 Acquired absence of uterus with remaining cervical stump
CPT/HCPCS: 99283; 96361; 96374; 96375; 36415; 83690; 85025; 80053; J1200; J2765; J1170; J7030

== ENCOUNTER 2017-08-29 09:04 | Inpatient (IN) | payer MEDICAID ==
--- NOTE | 2017-08-29 09:19 | ER Document Report ---
ED Medical Screen (RME) - General Chief Complaint: High Blood Sugar Stated Complaint: BLOOD SUGAR Time Seen by Provider: 08/29/17 09:18 Mode of Arrival: Medic Information source: Patient Notes: 36-year-old insulin dependent type I diabetic with history of DKA brought in by ambulance due to her blood sugar, vomiting since last night, and upper abdominal pain. Was called into the room because she loses consciousness and wakes up gasping. 2 of these episodes were witnessed and she maintained a pulse and slower respiration. She is crying and moaning and complaining of feeling tired and being does not want to be sick anymore. She smells ketotic. TRAVEL OUTSIDE OF THE [place] IN LAST 30 DAYS: No - Related Data Allergies/Adverse Reactions: hydrocodone [From [place]] Allergy (Verified 08/27/17 12:30) morphine Allergy (Verified 08/27/17 12:30) Past Medical History - Past Medical History Cardiac Medical History: Reports: Hx Hypercholesterolemia, Hx Hypertension Endocrine Medical History: Reports: Hx Diabetes Mellitus Type 2 Renal/ Medical History: Denies: Hx Peritoneal Dialysis Past Surgical History: Reports: Hx Section - x3, Hx Hysterectomy Physical Exam - Vital signs Vitals: Pulse Resp BP Pulse Ox 106 H 30 H 194/130 H 100 08/29/17 09:10 08/29/17 09:10 08/29/17 09:10 08/29/17 09:10 Course - Vital Signs Vital signs: Temp Pulse Resp BP Pulse Ox 106 H 30 H 194/130 H 100 08/29/17 09:10 08/29/17 09:10 08/29/17 09:10 08/29/17 09:10 Doctor's Discharge - Discharge Referrals: RADHA LOCKHART MD [Primary Care Provider] - Follow up as needed
[2017-08-29] MEDS ORDERED: NORMAL SALINE 1000 ML 1,000 ML IV ONE ×2 (09:30→12:06)
--- NOTE | 2017-08-29 09:32 | ER Document Report ---
ED Blood Sugar Problem - General Chief Complaint: High Blood Sugar Stated Complaint: BLOOD SUGAR Time Seen by Provider: 08/29/17 09:18 Mode of Arrival: Medic Information source: Patient Notes: 36-year-old female with a history of DKA, seizures, type 2 diabetes treated with insulin,, pancreatitis ion August 17 and was discharged on August 24, history of alcoholism and substance abuse, chronic kidney disease, hypertension, anemia. Is complaining of upper abdominal pain and vomiting since last night. She did take 30 units of insulin last night. I was with her in the pit area and she is crying with tachypnea and ketotic odor to her breath. She has periods that she is unresponsive but maintains a pulse in respiratory rate. She then startles awake and starts to cry again. The family member with her states that she does this when she is in DKA. PCP: Dr Maxwell. She was seen in the emergency department on August 24, , and yesterday. TRAVEL OUTSIDE OF THE [place] IN LAST 30 DAYS: No - Related Data Allergies/Adverse Reactions: hydrocodone [From [place]] Allergy (Verified 08/27/17 12:30) morphine Allergy (Verified 08/27/17 12:30) Past Medical History - General Information source: Patient - Social History Smoking Status: Current Every Day Smoker Chew tobacco use (# tins/day): No Frequency of alcohol use: None Drug Abuse: Marijuana Family History: Reviewed & Not Pertinent Patient has suicidal ideation: No Patient has homicidal ideation: No - Past Medical History Cardiac Medical History: Reports: Hx Hypercholesterolemia, Hx Hypertension Endocrine Medical History: Reports: Hx Diabetes Mellitus Type 2 Renal/ Medical History: Denies: Hx Peritoneal Dialysis Past Surgical History: Reports: Hx Section - x3, Hx Hysterectomy Review of Systems - Review of Systems Constitutional: See HPI EENT: No symptoms reported Cardiovascular: No symptoms reported Respiratory: No symptoms reported Gastrointestinal: See HPI Genitourinary: No symptoms reported Female Genitourinary: No symptoms reported Musculoskeletal: No symptoms reported Skin: No symptoms reported Hematologic/Lymphatic: No symptoms reported Neurological/Psychological: No symptoms reported Physical Exam - Vital signs Vitals: Pulse Resp BP Pulse Ox 106 H 30 H 194/130 H 100 08/29/17 09:10 08/29/17 09:10 08/29/17 09:10 08/29/17 09:10 Interpretation: Hypertensive, Tachycardic, Tachypneic - General General appearance: Alert, Anxious In distress: None - HEENT Head: Normocephalic, Atraumatic Eyes: Normal Conjunctiva: Normal Pupils: PERRL Mucous membranes: Dry Neck: Supple - Respiratory Respiratory status: No respiratory distress Chest status: Nontender Breath sounds: Normal Chest palpation: Normal - Cardiovascular Rhythm: Regular Heart sounds: Normal auscultation Murmur: No - Abdominal Inspection: Normal Distension: No distension Bowel sounds: Normal Tenderness: Nontender - After the Dilaudid Organomegaly: No organomegaly. No: Hepatomegaly, Splenomegaly - Back Back: Normal, Nontender - Extremities General upper extremity: Normal inspection, Nontender, Normal color, Normal ROM , Normal temperature General lower extremity: Normal inspection, Nontender, Normal color, Normal ROM , Normal temperature, Normal weight bearing. No: Raheem's sign - Neurological Neuro grossly intact: Yes Cognition: Normal Orientation: AAOx4 [place] Com[place] Scale Eye Opening: Spontaneous [place] Coma Scale Verbal: Oriented [place] Com[place] Scale Motor: Obeys Commands [place] Coma Scale Total: 15 Speech: Normal Motor strength normal: LUE, RUE, LLE, RLE Sensory: Normal - Psychological Associated symptoms: Normal affect, Normal mood - Skin Skin Temperature: Warm Skin Moisture: Dry Skin Color: Normal Skin irregularity: negative: Rash Course - Re-evaluation Re-evalutation: 08/29/17 10:[address] Heath about the hypertension and he said to give her labetalol 20 mg IV. Lab work is still pending. 08/29/17 10:41 Hospital is out of labetalol so we will give her metoprolol [address] heath, and she wants something for pain and nausea the chemistry is still pending but I did order 1 dose of hydromorphone 1 mg and Zofran 8 mg ODT, and Reglan 10 mg IV. 08/29/17 10:41 08/29/17 11:[address] Maxwell for admission her glucose is 610 and anion gap is 22. He called me back and is no longer her doctor. EKG shows sinus tachycardia. 08/29/17 11:59 Dr. luisito river said to call Jalyn Mercado for the admission. She will be admitted to telemetry observation and Jalyn said no insulin drip. Chest x-ray, urine drug screen, EtOH, acetaminophen are negative. Urinalysis is negative for infection. 08/29/17 12:07 - Vital Signs Vital signs: Temp Pulse Resp BP Pulse Ox 98.4 F 106 H 23 H 180/89 H 99 08/29/17 10:15 08/29/17 09:10 08/29/17 11:01 08/29/17 11:01 08/29/17 11:01 - Laboratory Result Diagrams: 08/29/17 09:59 08/29/17 09:59 Laboratory results interpreted by me: 08/29/17 08/29/17 08/29/17 09:59 09:59 10:09 WBC 15.9 H Hgb 10.8 L Hct 33.6 L RDW 14.1 H Seg Neutrophils % 90.7 H Lymphocytes % 6.5 L Monocytes % 2.7 L Absolute Neutrophils 14.4 H Carbonic Acid ABG pH ABG pCO2 ABG HCO3 ABG Total CO2 Carbon Dioxide 20 L Anion Gap 22 H BUN 21 H Est GFR (Non-Af Amer) 49 L Glucose 610 H* Direct Bilirubin 0.5 H AST 56 H Alkaline Phosphatase 171 H Urine Protein 100 H Urine Glucose (UA) >=500 H Urine Ketones 80 H Urine Blood SMALL H Acetaminophen < 10 L 08/29/17 11:00 WBC Hgb Hct RDW Seg Neutrophils % Lymphocytes % Monocytes % Absolute Neutrophils Carbonic Acid 1.03 L ABG pH 7.31 L ABG pCO2 34.2 L ABG HCO3 16.8 L ABG Total CO2 17.8 L Carbon Dioxide Anion Gap BUN Est GFR (Non-Af Amer) Glucose Direct Bilirubin AST Alkaline Phosphatase Urine Protein Urine Glucose (UA) Urine Ketones Urine Blood Acetaminophen Discharge - Discharge Clinical Impression: Hyperglycemia Hypertension Qualifiers: Hypertension type: essential hypertension Qualified Code(s): I10 - Essential ( primary) hypertension Vomiting Qualifiers: Vomiting type: unspecified Vomiting Intractability: non-intractable Nausea presence: with nausea Qualified Code(s): R11.2 - Nausea with vomiting, unspecified Leukocytosis Qualifiers: Leukocytosis type: unspecified Qualified Code(s): D72.829 - Elevated white blood cell count, unspecified Disposition: ADMITTED OBSERVATION Admitting Provider: Hospitalist Unit Admitted: Telemetry Referrals: RADHA MAXWELL MD [Primary Care Provider] - Follow up as needed
[2017-08-29] MEDS ORDERED: LABETALOL HCL INJ 20 MG/4 ML DISP.SYRIN IV ONE (10:28)
[2017-08-29 10:31] LABS: APPEARANCE,URINE CLEAR; BILIRUBIN,URINE NEGATIVE (NEGATIVE); COLOR,URINE STRAW; GLUCOSE, URINE >=500 mg/dL (NEGATIVE); KETONES,URINE 80 mg/dL (NEGATIVE); LEUKOCYTE ESTERASE,URINE NEGATIVE (NEGATIVE); NITRITE,URINE NEGATIVE (NEGATIVE); PROTEIN,URINE 100 mg/dL (NEGATIVE); URINE SPECIFIC GRAVITY 1.015; UROBILINOGEN,URINE NEGATIVE mg/dL (<2.0)
[2017-08-29 10:32] LABS: ABSOLUTE MONOCYTES (AUTO) 0.4 10^3/uL (0.1-1.4); ABSOLUTE NEUT (AUTO) 14.4 10^3/uL (1.7-8.2); BASOPHILS % (AUTO) 0.1 % (0-2); HEMATOCRIT 33.6 % (36.0-47.0); HEMOGLOBIN 10.8 g/dL (12.0-15.5); LYMPHOCYTES % (AUTO) 6.5 % (13-45); MEAN CORPUSCULAR HEMOGLOBIN 28.5 pg (27.0-33.4); MEAN CORPUSCULAR HGB CONC 32.1 g/dL (32.0-36.0); MEAN CORPUSCULAR VOLUME 89 fl (80-97); MONOCYTES % (AUTO) 2.7 % (3-13); PLATELET COUNT 385 10^3/uL (150-450); RED BLOOD COUNT 3.78 10^6/uL (3.72-5.28); RED CELL DISTRIBUTION WIDTH 14.1 % (11.5-14.0); SEGMENTED NEUTROPHILS % (AUTO) 90.7 % (42-78); TOTAL CELLS COUNTED % (AUTO) 100 %; WHITE BLOOD COUNT 15.9 10^3/uL (4.0-10.5)
[2017-08-29] MEDS ORDERED: METOPROLOL TARTRATE PF/INJ 5 MG/5 ML SDV IV ONE (10:38)
[2017-08-29] MEDS ORDERED: ONDANSETRON 4 MG TAB.RAPDIS PO ONE (10:38)
[2017-08-29] MEDS ORDERED: HYDROMORPHONE HCL INJ/PF 2 MG/ML AMPULE IV ONE (10:38)
[2017-08-29] MEDS ORDERED: METOCLOPRAMIDE HCL INJ/PF 10 MG/2 ML SDV IV ONE (10:41)
[2017-08-29 10:44] LABS: URINE AMPHETAMINES SCREEN NEGATIVE; URINE BARBITURATES SCREEN NEGATIVE; URINE BENZODIAZEPINES SCREEN NEGATIVE; URINE COCAINE SCREEN NEGATIVE; URINE MARIJUANA (THC) SCREEN NEGATIVE; URINE METHADONE SCREEN NEGATIVE; URINE PHENCYCLIDINE SCREEN NEGATIVE
[2017-08-29 10:51] LABS: ALANINE AMINOTRANSFERASE 35 U/L (9-52); ALBUMIN 4.3 g/dL (3.5-5.0); ALKALINE PHOSPHATASE 171 U/L (38-126); ASPARTATE AMINO TRANSFERASE 56 U/L (14-36); BILIRUBIN,DIRECT 0.5 mg/dL (0.0-0.4); BILIRUBIN,TOTAL 0.8 mg/dL (0.2-1.3); BLOOD UREA NITROGEN 21 mg/dL (7-20); CALCIUM 9.7 mg/dL (8.4-10.2); POTASSIUM 4.3 mmol/L (3.6-5.0)
[2017-08-29 10:52] LABS: ACETAMINOPHEN < 10 ug/mL (10-30)
--- NOTE | 2017-08-29 10:56 | EKG REPORT ---
SEVERITY:- ABNORMAL ECG - SINUS TACHYCARDIA PROBABLE LEFT VENTRICULAR HYPERTROPHY BORDERLINE PROLONGED QT INTERVAL : Confirmed by: Ana Borja MD 29-Aug-2017 10:55:54
[2017-08-29 11:02] LABS: CARBON DIOXIDE 20 mmol/L (22-30); CHLORIDE 98 mmol/L (98-107); SODIUM 140.2 mmol/L (137-145)
[2017-08-29 11:06] LABS: ANION GAP 22 (5-19)
[2017-08-29 11:08] LABS: GLUCOSE 610 mg/dL (75-110)
[2017-08-29 11:21] LABS: ARTERIAL BLOOD BASE EXCESS -8.6 mmol/L; ARTERIAL BLOOD H2CO3 1.03 mmol/L (1.05-1.35); ARTERIAL BLOOD HCO3 16.8 mmol/L (20-26); ARTERIAL BLOOD O2 SATURATION 95.2 % (94-98); ARTERIAL BLOOD PCO2 34.2 mmHg (35-45); ARTERIAL BLOOD PH 7.31 (7.35-7.45); ARTERIAL BLOOD PO2 81.8 mmHg (80-100); ARTERIAL BLOOD TOTAL CO2 17.8 mmol/L (21-25)
[2017-08-29 11:27] LABS: ARTERIAL BLOOD FIO2 ROOM AIR
--- NOTE | 2017-08-29 12:00 | RADIOLOGY REPORT (SQ) ---
EXAM DESCRIPTION: CHEST SINGLE VIEW COMPLETED DATE/TIME: 08/29/2017 11:40 am REASON FOR STUDY: upper abd pain COMPARISON: None. EXAM PARAMETERS: NUMBER OF VIEWS: One view. TECHNIQUE: Single frontal radiographic view of the chest acquired. RADIATION DOSE: NA LIMITATIONS: None. FINDINGS: LUNGS AND PLEURA: No opacities, masses or pneumothorax. No pleural effusion. MEDIASTINUM AND HILAR STRUCTURES: No masses. Contour normal. HEART AND VASCULAR STRUCTURES: Heart normal in size. Normal vasculature. BONES: No acute findings. HARDWARE: None in the chest. OTHER: No other significant finding. IMPRESSION: NO ACUTE RADIOGRAPHIC FINDING IN THE CHEST. TECHNICAL DOCUMENTATION: JOB ID: [id number] [employer]- All Rights Reserved Reading location - IP/workstation name: [email or web address]
[2017-08-29] MEDS ORDERED: MAG HYDROX/AL HYDROX/SIMETH SUSP 30 ML UDCUP PO ONE (12:05)
[2017-08-29] MEDS ORDERED: LIDOCAINE 2% VISCOUS SOLN 20 ML UDCUP PO ONE (12:05)
[2017-08-29] MEDS ORDERED: ONDANSETRON 4 MG TAB.RAPDIS PO PRN (12:30)
[2017-08-29] MEDS ORDERED: ACETAMINOPHEN 325 MG TABLET PO PRN (12:31)
[2017-08-29] MEDS ORDERED: NORMAL SALINE 1000 ML 1,000 ML IV PRN (12:31)
[2017-08-29] MEDS ORDERED: GLUCAGON,HUMAN RECOMB 1 MG INJ IM PRN (12:46)
[2017-08-29] MEDS ORDERED: DEXTROSE 40% GEL 15 GM TUBE PO PRN ×2 (12:46)
[2017-08-29] MEDS ORDERED: DEXTROSE 50%-WATER 25 GM/50 ML DISP.SYRIN IV PRN ×2 (12:46)
[2017-08-29] MEDS ORDERED: LISINOPRIL 10 MG TABLET PO SCH (14:00)
[2017-08-29] MEDS ORDERED: LISINOPRIL 10 MG TABLET PO ONE (14:00)
[2017-08-29] MEDS ORDERED: GABAPENTIN 100 MG CAPSULE PO SCH (14:00)
--- NOTE | 2017-08-29 14:18 | PDOC H&P ---
History of Present Illness Admission Date/PCP: 08/29/17 12:51 RADHA LOCKHART MD Patient complains of: Nausea, vomiting and hyperglycemia History of Present Illness: Brandi Lr is a 36 year old female with history of diabetes mellitus type 1, essential hypertension, alcoholism, illicit drug use, seizures and chronic pancreatitis; who presents to [facility] ER this morning complaining of upper abdominal pain and vomiting since last night. She did take 30 units of insulin last night. She was hospitalized by Dr. Lockhart's service from August 17- for acute on chronic pancreatitis. He has since discharged her from his service for drug-seeking behaviors. She was seen in the emergency department on August 24, , and yesterday. The patient denies any fevers or chills. She denies any diarrhea. She denies any other sick contacts at home. Past Medical History Cardiac Medical History: Reports: Hyperlipidema, Hypertension Pulmonary Medical History: Reports: None Neurological Medical History: Reports: None Endocrine Medical History: Reports: Diabetes Mellitus Type 1 Renal/ Medical History: Reports: None GI Medical History: Reports: Cirrhosis Musculoskeltal Medical History: Reports: None Psychiatric Medical History: Reports: Alcohol Dependency, Substance Abuse Traumatic Medical History: Reports: None Hematology: Reports: None Infectious Medical History: Reports: None Past Surgical History Past Surgical History: Reports: Section - x3, Hysterectomy Social History Information Source: Patient Lives with: Family Smoking Status: Current Every Day Smoker Cigarettes Packs Per Day: 1 Number of Years Smokin Last Time Smoked: Today Frequency of Alcohol Use: Occasional Hx Recreational Drug Use: Yes Drugs: Marijuana Hx Prescription Drug Abuse: No - Advance Directive Resuscitation Status: Full Code Surrogate healthcare decision maker:: Mother Felicita Family History Family History: DM, Hypertension Parental Family History Reviewed: Yes Children Family History Reviewed: Yes Sibling(s) Family History Reviewed.: Yes Medication/Allergy Home Medications: Atorvastatin Calcium [Lipitor 20 mg Tablet] 20 mg PO QHS 08/29/17 Insulin Aspart [Novolog Insulin (Aspart) 100 unit/mL] 10 units SQ MEALS Insulin Glargine,Hum.rec.anlog [Lantus] 30 units SQ QHS 08/29/17 Lisinopril [Prinivil 40 mg Tablet] 40 mg PO DAILY 08/29/17 Metoprolol Tartrate [Lopressor 25 mg Tablet] 25 mg PO Q12 08/29/17 Allergies/Adverse Reactions: hydrocodone [From [place]] Allergy (Verified 08/27/17 12:30) morphine Allergy (Verified 08/27/17 12:30) Review of Systems Constitutional: PRESENT: anorexia, chills, weakness Eyes: ABSENT: visual disturbances Ears: ABSENT: hearing changes Cardiovascular: ABSENT: chest pain, dyspnea on exertion, edema, orthropnea, palpitations Respiratory: ABSENT: cough, hemoptysis Gastrointestinal: PRESENT: abdominal pain, nausea, vomiting Genitourinary: ABSENT: dysuria, hematuria Musculoskeletal: ABSENT: joint swelling Neurological: ABSENT: abnormal gait, abnormal speech, confusion, dizziness, focal weakness, syncope Psychiatric: ABSENT: anxiety, depression, homidical ideation, suicidal ideation Endocrine: ABSENT: cold intolerance, heat intolerance, polydipsia, polyuria Hematologic/Lymphatic: ABSENT: easy bleeding, easy bruising Physical Exam Vital Signs: Temp Pulse Resp BP Pulse Ox 98.4 F 106 H 12 147/95 H 100 08/29/17 10:15 08/29/17 09:10 08/29/17 13:01 08/29/17 13:01 08/29/17 13:01 Intake & Output 08/28/17 08/29/17 08/30/17 06:59 06:59 06:59 Weight 56.699 kg General appearance: PRESENT: no acute distress, thin, well-developed Head exam: PRESENT: atraumatic, normocephalic Eye exam: PRESENT: conjunctiva pink, EOMI, PERRLA. ABSENT: scleral icterus Ear exam: PRESENT: normal external ear exam Mouth exam: PRESENT: moist, tongue midline Teeth exam: PRESENT: poor dentation Neck exam: ABSENT: carotid bruit, JVD, lymphadenopathy, thyromegaly Respiratory exam: PRESENT: clear to auscultation teddy. ABSENT: rales, rhonchi, wheezes Cardiovascular exam: PRESENT: RRR. ABSENT: diastolic murmur, rubs, systolic murmur Pulses: PRESENT: normal dorsalis pedis pul GI/Abdominal exam: PRESENT: normal bowel sounds, soft, tenderness - Epigastric Rectal exam: PRESENT: deferred Extremities exam: PRESENT: full ROM. ABSENT: calf tenderness, clubbing, pedal edema Musculoskeletal exam: PRESENT: ambulatory, full ROM, normal inspection Neurological exam: PRESENT: alert, awake, oriented to person, oriented to place , oriented to time, oriented to situation, CN II-XII grossly intact. ABSENT: motor sensory deficit Psychiatric exam: PRESENT: anxious Focused psych exam: PRESENT: flight of ideas Skin exam: PRESENT: dry, intact, warm. ABSENT: cyanosis, rash Results Impressions: Chest X-Ray 08/29/17 10:40 IMPRESSION: NO ACUTE RADIOGRAPHIC FINDING IN THE CHEST. Assessment & Plan - Diagnosis (1) Hyperglycemia Is this a current diagnosis for this admission?: Yes Plan: We will hydrate with IV fluids. Will give 1 dose of 15 units regular insulin IV 1 and recheck sugar in 2 hours. Doubt she has been taking her insulin at home history states. She has been in the ER daily for the last 4 days. (2) Hypertension Qualifiers: Hypertension type: essential hypertension Qualified Code(s): I10 - Essential (primary) hypertension Plan: She was improved at present time due to down to 140/80 5:05 milligrams of IV Lopressor IV. (3) Vomiting Qualifiers: Vomiting type: unspecified Vomiting Intractability: non-intractable Nausea presence: with nausea Qualified Code(s): R11.2 - Nausea with vomiting, unspecified Is this a current diagnosis for this admission?: Yes Plan: We will give Zofran, Reglan and as needed Phenergan (4) Chronic abdominal pain Is this a current diagnosis for this admission?: Yes Plan: Patient apparently has chronic pancreatitis secondary to prolonged alcohol abuse. Lipase today is normal (5) Diabetic gastroparesis associated with type 2 diabetes mellitus Is this a current diagnosis for this admission?: Yes Plan: We will continue Reglan short-term for now. Patient should be able to be discharged home tomorrow. (6) History of alcoholism Is this a current diagnosis for this admission?: Yes Plan: She claims she has not drank in the last 6 months. She recently relocated here from [place] to live with her mother. (7) SUBSTANCE DRUG ABUSED Is this a current diagnosis for this admission?: Yes Plan: Patient has history of marijuana use and other substance abuse. Urine drug screen today is negative for any illicit substance. Alcohol level is undetectable. She was asking emergency room provider for narcotic pain medicine earlier - Time Time Spent: 50 to 70 Minutes Critical Time spent with patient: 25-34 minutes Smoking Cessation Education: 3 to 10 minutes Medications reviewed and adjusted accordingly: Yes Anticipated discharge: Home Within: within 24 hours
[2017-08-29] MEDS ORDERED: INSULIN REG, HUMAN 100 UNIT/ML 3 ML VIAL (PYX) IV ONE (15:00)
[2017-08-29] MEDS ORDERED: LIPASE/PROTEASE/AMYLASE 1 CAP CAPSULE.DR PO SCH (16:00)
[2017-08-29] MEDS ORDERED: (PENDING PHARMACY ID) (Insulin Aspart [Novolog Insulin (Aspart) 100 Unit/Ml] 10 UNITS) SQ SCH (17:00)
[2017-08-29] MEDS: METOCLOPRAMIDE HCL 10 MG TABLET PO SCH ×2 (20:56→23:51)
[2017-08-29] MEDS: INSULIN LISPRO 100 UNIT/ML 3 ML VIAL SUBCUT SCH (20:57)
[2017-08-29] MEDS ORDERED: ATORVASTATIN CALCIUM 20 MG TABLET PO SCH (22:00)
[2017-08-29] MEDS ORDERED: CARVEDILOL 12.5 MG TABLET PO SCH (22:00)
[2017-08-29] MEDS ORDERED: INSULIN GLARGINE,HUM.REC.ANLOG 1,000 UNIT/10 ML UNIT SUBCUT SCH (22:00)
[2017-08-29 22:48] LABS: VENOUS BLOOD BASE EXCESS -13.9 mmol/L; VENOUS BLOOD HCO3 11.6 mmol/L (20-32); VENOUS BLOOD PCO2 26.6 mmHg (35-63); VENOUS BLOOD PH 7.26 (7.30-7.42)
[2017-08-29] MEDS: INSULIN GLARGINE,HUM.REC.ANLOG 300 UNIT/3 ML INSULN.PEN SUBCUT SCH (23:48)
[2017-08-29] MEDS: METOPROLOL TARTRATE 25 MG TABLET PO SCH (23:49)
[2017-08-29] MEDS: FAMOTIDINE INJ/PF 20 MG/2 ML SDV IV SCH (23:51)
[2017-08-29] MEDS: ATORVASTATIN CALCIUM 20 MG TABLET PO SCH (23:51)
[2017-08-30] MEDS ORDERED: GLUCAGON,HUMAN RECOMB 1 MG INJ IM PRN ×2 (00:40→00:58)
[2017-08-30] MEDS ORDERED: DEXTROSE 40% GEL 15 GM TUBE PO PRN ×4 (00:40→00:58)
[2017-08-30] MEDS ORDERED: DEXTROSE 50%-WATER 25 GM/50 ML DISP.SYRIN IV PRN ×4 (00:40→00:58)
[2017-08-30] MEDS ORDERED: NORMAL SALINE 100 ML with INSULIN REGULAR, HUMAN 100 UNIT IV PRN ×2 (00:58)
[2017-08-30] MEDS ORDERED: INSULIN REG, HUMAN 100 UNIT/ML 3 ML VIAL (PYX) ONE (01:48)
[2017-08-30] MEDS: NORMAL SALINE 1000 ML 1,000 ML IV PRN (01:54)
[2017-08-30 01:58] LABS: ANION GAP 16 (5-19); BLOOD UREA NITROGEN 34 mg/dL (7-20); CALCIUM 8.3 mg/dL (8.4-10.2); CARBON DIOXIDE 18 mmol/L (22-30); CHLORIDE 105 mmol/L (98-107); POTASSIUM 4.2 mmol/L (3.6-5.0); SODIUM 139.3 mmol/L (137-145)
[2017-08-30 02:44] LABS: GLUCOSE 434 mg/dL (75-110)
[2017-08-30 04:24] LABS: ABSOLUTE BASOPHILS # (AUTO) 0.1 10^3/uL (0.0-0.2); ABSOLUTE LYMPHOCYTES (AUTO) 2.8 10^3/uL (0.5-4.7); ABSOLUTE MONOCYTES (AUTO) 1.3 10^3/uL (0.1-1.4); ABSOLUTE NEUT (AUTO) 9.6 10^3/uL (1.7-8.2); BASOPHILS % (AUTO) 0.4 % (0-2); EOSINOPHILS % (AUTO) 0.1 % (0-6); HEMATOCRIT 26.4 % (36.0-47.0); HEMOGLOBIN 8.9 g/dL (12.0-15.5); LYMPHOCYTES % (AUTO) 20.3 % (13-45); MEAN CORPUSCULAR HEMOGLOBIN 28.9 pg (27.0-33.4); MEAN CORPUSCULAR HGB CONC 33.7 g/dL (32.0-36.0); MEAN CORPUSCULAR VOLUME 86 fl (80-97); MONOCYTES % (AUTO) 9.2 % (3-13); PLATELET COUNT 370 10^3/uL (150-450); RED BLOOD COUNT 3.07 10^6/uL (3.72-5.28); RED CELL DISTRIBUTION WIDTH 14.3 % (11.5-14.0); TOTAL CELLS COUNTED % (AUTO) 100 %; WHITE BLOOD COUNT 13.6 10^3/uL (4.0-10.5)
[2017-08-30 04:44] LABS: ANION GAP 12 (5-19); BLOOD UREA NITROGEN 33 mg/dL (7-20); CALCIUM 8.5 mg/dL (8.4-10.2); CARBON DIOXIDE 19 mmol/L (22-30); CHLORIDE 109 mmol/L (98-107); GLUCOSE 261 mg/dL (75-110); POTASSIUM 3.8 mmol/L (3.6-5.0); SODIUM 140.3 mmol/L (137-145)
[2017-08-30] MEDS ORDERED: POTASSIUM CHLORIDE 20 MEQ/15 ML UDCUP PO ONE (05:58)
[2017-08-30] MEDS ORDERED: LANSOPRAZOLE 30 MG TAB.RAP.DR PO SCH (06:00)
[2017-08-30] MEDS: PROMETHAZINE HCL INJ 25 MG/1 ML VIAL IV PRN ×3 (07:48→20:31)
[2017-08-30] MEDS: METOCLOPRAMIDE HCL 10 MG TABLET PO SCH ×4 (08:32→22:19)
[2017-08-30 08:49] LABS: ANION GAP 7 (5-19); BLOOD UREA NITROGEN 32 mg/dL (7-20); CALCIUM 8.7 mg/dL (8.4-10.2); CARBON DIOXIDE 22 mmol/L (22-30); CHLORIDE 115 mmol/L (98-107); GLUCOSE 61 mg/dL (75-110); SODIUM 144.1 mmol/L (137-145)
[2017-08-30 08:54] LABS: POTASSIUM 5.4 mmol/L (3.6-5.0)
[2017-08-30] MEDS: OXYCODONE-ACETAMINOPHEN 5-325 MG TABLET PO PRN ×3 (09:07→23:44)
[2017-08-30] MEDS: INSULIN LISPRO 100 UNIT/ML 3 ML VIAL SUBCUT SCH ×3 (09:10→20:24)
[2017-08-30] MEDS ORDERED: LISINOPRIL 10 MG TABLET PO SCH (10:00)
[2017-08-30] MEDS ORDERED: (PENDING PHARMACY ID) (Lisinopril [Zestril] 40 MG) PO SCH (10:00)
[2017-08-30] MEDS: ENOXAPARIN SODIUM INJ 40 MG/0.4 ML DISP.SYRIN SUBCUT SCH (10:43)
[2017-08-30] MEDS: METOPROLOL TARTRATE 25 MG TABLET PO SCH ×2 (10:43→22:19)
[2017-08-30] MEDS: FAMOTIDINE INJ/PF 20 MG/2 ML SDV IV SCH ×2 (10:44→22:20)
[2017-08-30 13:01] LABS: ANION GAP 10 (5-19); BLOOD UREA NITROGEN 28 mg/dL (7-20); CALCIUM 8.8 mg/dL (8.4-10.2); CARBON DIOXIDE 21 mmol/L (22-30); CHLORIDE 111 mmol/L (98-107); GLUCOSE 128 mg/dL (75-110); POTASSIUM 4.8 mmol/L (3.6-5.0); SODIUM 142.2 mmol/L (137-145)
[2017-08-30] MEDS ORDERED: KETOROLAC TROMETHAMINE INJ/PF 30 MG/1 ML SDV IV ONE (13:44)
--- NOTE | 2017-08-30 13:57 | PDOC PROGRESS REPORT ---
Subjective Progress Note for:: 08/30/17 Subjective:: Patient was admitted with nausea vomiting and hypoglycemia. She has a history of type 1 diabetes mellitus. Her blood sugars went up to about 800 overnight and she was placed on insulin drip and aggressive IV fluid hydration and is complaining of vague left-sided abdominal pain. Given Percocet with no relief. ReView of the chart suggests that she was discharged from Dr. Maxwell's service for drug-seeking behavior. Reason For Visit: HYPERGLYCEMIA NAUSEA AND VOMITING Physical Exam Vital Signs: Temp Pulse Resp BP Pulse Ox 98.5 F 91 18 192/107 H 99 08/30/17 12:50 08/30/17 12:50 08/30/17 12:50 08/30/17 12:50 08/30/17 12:50 Intake & Output 08/29/17 08/30/17 08/31/17 06:59 06:59 06:59 Intake Total 2012 513 Balance 2012 513 Weight 59.7 kg General appearance: PRESENT: no acute distress, thin Head exam: PRESENT: atraumatic Eye exam: PRESENT: conjunctiva pink, EOMI, PERRLA. ABSENT: scleral icterus Ear exam: PRESENT: normal external ear exam Mouth exam: PRESENT: moist, tongue midline Neck exam: ABSENT: carotid bruit, JVD, lymphadenopathy, thyromegaly Respiratory exam: PRESENT: clear to auscultation teddy. ABSENT: rales, rhonchi, wheezes Cardiovascular exam: PRESENT: RRR. ABSENT: diastolic murmur, rubs, systolic murmur Pulses: PRESENT: normal dorsalis pedis pul Vascular exam: PRESENT: normal capillary refill GI/Abdominal exam: PRESENT: normal bowel sounds, soft, tenderness - Vague left- sided. ABSENT: distended, guarding, mass, organolmegaly, rebound Rectal exam: PRESENT: deferred Extremities exam: PRESENT: full ROM. ABSENT: calf tenderness, clubbing, pedal edema Neurological exam: PRESENT: alert, awake, oriented to person, oriented to place , oriented to time, oriented to situation, CN II-XII grossly intact. ABSENT: motor sensory deficit Psychiatric exam: PRESENT: appropriate affect. ABSENT: homicidal ideation, suicidal ideation Skin exam: PRESENT: dry, intact, warm. ABSENT: cyanosis, rash Results Laboratory Results: 08/30/17 04:18 08/30/17 12:29 08/29/17 08/29/17 08/30/17 20:33 22:42 01:25 WBC RBC Hgb Hct MCV MCH MCHC RDW Plt Count Seg Neutrophils % Lymphocytes % Monocytes % Eosinophils % Basophils % Absolute Neutrophils Absolute Lymphocytes Absolute Monocytes Absolute Eosinophils Absolute Basophils VBG pH 7.26 L VBG pCO2 26.6 L VBG HCO3 11.6 L VBG Base Excess -13.9 Sodium 139.3 Potassium 4.2 Chloride 105 Carbon Dioxide 18 L Anion Gap 16 BUN 34 H Creatinine 1.60 H Est GFR ( Amer) 44 L Est GFR (Non-Af Amer) 36 L Glucose 812 H* 434 H* Calcium 8.3 L Magnesium 08/30/17 08/30/17 08/30/17 04:18 04:18 08:16 WBC 13.6 H RBC 3.07 L Hgb 8.9 L Hct 26.4 L MCV 86 MCH 28.9 MCHC 33.7 RDW 14.3 H Plt Count 370 Seg Neutrophils % 70.0 Lymphocytes % 20.3 Monocytes % 9.2 Eosinophils % 0.1 Basophils % 0.4 Absolute Neutrophils 9.6 H Absolute Lymphocytes 2.8 Absolute Monocytes 1.3 Absolute Eosinophils 0.0 Absolute Basophils 0.1 VBG pH VBG pCO2 VBG HCO3 VBG Base Excess Sodium 140.3 144.1 Potassium 3.8 5.4 H D Chloride 109 H 115 H Carbon Dioxide 19 L 22 Anion Gap 12 7 BUN 33 H 32 H Creatinine 1.44 H 1.39 H Est GFR ( Amer) 50 L 52 L Est GFR (Non-Af Amer) 41 L 43 L Glucose 261 H 61 L Calcium 8.5 8.7 Magnesium 1.9 08/30/17 12:29 WBC RBC Hgb Hct MCV MCH MCHC RDW Plt Count Seg Neutrophils % Lymphocytes % Monocytes % Eosinophils % Basophils % Absolute Neutrophils Absolute Lymphocytes Absolute Monocytes Absolute Eosinophils Absolute Basophils VBG pH VBG pCO2 VBG HCO3 VBG Base Excess Sodium 142.2 Potassium 4.8 Chloride 111 H Carbon Dioxide 21 L Anion Gap 10 BUN 28 H Creatinine 1.27 H Est GFR ( Amer) 58 L Est GFR (Non-Af Amer) 48 L Glucose 128 H Calcium 8.8 Magnesium Impressions: Chest X-Ray 08/29/17 10:40 IMPRESSION: NO ACUTE RADIOGRAPHIC FINDING IN THE CHEST. Assessment & Plan - Time Time Spent with patient: 15-24 minutes Medications reviewed and adjusted accordingly: Yes Anticipated discharge: Home Within: within 24 hours - Inpatient Certification Based on my medical assessment, after consideration of the patient's comorbidities, presenting symptoms, or acuity I expect that the services needed warrant INPATIENT care.: Yes Medical Necessity: Need Close Monitoring Due to Risk of Patient Decompensation, Risk of Complication if Not Cared For in Hospital - Plan Summary Plan Summary: 1. Diabetic ketoacidosis. Blood sugar was as high as 812 last night although was 610 initially on admission. She was also acidotic with a pH of 7.3 and bicarbonate of 17 and anion gap of 22. Currently she is off the insulin drip and her gap is closed. We will continue IV fluid hydration as well as subacute insulin. 2. Acute kidney injury likely from dehydration. We will continue with IV fluid hydration 3. Hyperkalemia secondary to insulin deficiency. This is corrected 4. Drug-seeking behavior as per records. Will suggest judicious use of narcotics if at all. Will employ NSAIDs as appropriate 5. Leukocytosis probably reactive. I see no evidence of any acute infection at this time will continue to monitor
[2017-08-30] MEDS ORDERED: KETOROLAC TROMETHAMINE INJ/PF 30 MG/1 ML SDV INJ ONE (18:00)
[2017-08-30] MEDS: ATORVASTATIN CALCIUM 20 MG TABLET PO SCH (22:19)
[2017-08-30] MEDS: INSULIN GLARGINE,HUM.REC.ANLOG 300 UNIT/3 ML INSULN.PEN SUBCUT SCH (22:20)
[2017-08-30] MEDS: INSULIN LISPRO 100 UNIT/ML 3 ML VIAL SUBCUT PRN (22:20)
[2017-08-31] MEDS: PROMETHAZINE HCL INJ 25 MG/1 ML VIAL IV PRN (00:06)
[2017-08-31] MEDS: NORMAL SALINE 1000 ML 1,000 ML IV PRN (01:30)
[2017-08-31] MEDS: KETOROLAC TROMETHAMINE INJ/PF 30 MG/1 ML SDV IV PRN ×2 (01:30→10:55)
[2017-08-31] MEDS ORDERED: HYDRALAZINE HCL INJ/PF 20 MG/1 ML SDV IV PRN ×2 (05:16→07:18)
[2017-08-31 06:17] LABS: ANION GAP 12 (5-19); BLOOD UREA NITROGEN 19 mg/dL (7-20); CALCIUM 9.2 mg/dL (8.4-10.2); CARBON DIOXIDE 24 mmol/L (22-30); CHLORIDE 104 mmol/L (98-107); GLUCOSE 222 mg/dL (75-110); POTASSIUM 4.3 mmol/L (3.6-5.0); SODIUM 140.1 mmol/L (137-145)
[2017-08-31] MEDS: METOCLOPRAMIDE HCL 10 MG TABLET PO SCH ×4 (08:55→21:51)
[2017-08-31] MEDS: INSULIN LISPRO 100 UNIT/ML 3 ML VIAL SUBCUT SCH ×3 (08:56→17:36)
[2017-08-31] MEDS: OXYCODONE-ACETAMINOPHEN 5-325 MG TABLET PO PRN ×2 (09:25→21:58)
[2017-08-31] MEDS: METOPROLOL TARTRATE 25 MG TABLET PO SCH ×2 (09:25→21:51)
[2017-08-31] MEDS: ENOXAPARIN SODIUM INJ 40 MG/0.4 ML DISP.SYRIN SUBCUT SCH (09:26)
[2017-08-31] MEDS: FAMOTIDINE INJ/PF 20 MG/2 ML SDV IV SCH (09:28)
[2017-08-31] MEDS ORDERED: AMLODIPINE BESYLATE 5 MG TABLET PO SCH (10:00)
--- NOTE | 2017-08-31 16:46 | PDOC PROGRESS REPORT ---
Subjective Progress Note for:: 08/31/17 Subjective:: Patient was admitted with nausea vomiting and hypoglycemia. She has a history of type 1 diabetes mellitus. Her DKA is as resolved however her blood pressure was uncontrolled overnight with a systolic as high as 200. I have started on Norvasc today and will watch her in hospital overnight and discharge in a.m. if her blood pressures better controlled. She is still complaining of abdominal pain although when I entered the room today patient was fairly comfortable and in no distress and was actually sleeping quietly until I woke her up and then started complaining of pain Reason For Visit: HYPERGLYCEMIA NAUSEA/VOMITING Physical Exam Vital Signs: Temp Pulse Resp BP Pulse Ox 98.6 F 93 16 148/85 H 100 08/31/17 08:24 08/31/17 08:24 08/31/17 08:24 08/31/17 08:24 08/31/17 08:24 Intake & Output 08/30/17 08/31/17 09/01/17 06:59 06:59 06:59 Intake Total 874 Balance 874 Weight 58.6 kg General appearance: PRESENT: no acute distress, thin, well-developed Head exam: PRESENT: atraumatic, normocephalic Eye exam: PRESENT: conjunctiva pink, EOMI, PERRLA. ABSENT: scleral icterus Ear exam: PRESENT: normal external ear exam Mouth exam: PRESENT: moist, tongue midline Neck exam: ABSENT: carotid bruit, JVD, lymphadenopathy, thyromegaly Respiratory exam: PRESENT: clear to auscultation teddy. ABSENT: rales, rhonchi, wheezes Cardiovascular exam: PRESENT: RRR. ABSENT: diastolic murmur, rubs, systolic murmur Pulses: PRESENT: normal dorsalis pedis pul Vascular exam: PRESENT: normal capillary refill GI/Abdominal exam: PRESENT: normal bowel sounds, soft. ABSENT: distended, guarding, mass, organolmegaly, rebound, tenderness Rectal exam: PRESENT: deferred Extremities exam: PRESENT: full ROM. ABSENT: calf tenderness, clubbing, pedal edema Neurological exam: PRESENT: alert, awake, oriented to person, oriented to place , oriented to time, oriented to situation, CN II-XII grossly intact. ABSENT: motor sensory deficit Psychiatric exam: PRESENT: appropriate affect Skin exam: PRESENT: dry, intact, warm. ABSENT: cyanosis, rash Results Laboratory Results: 08/31/17 05:30 08/31/17 08/31/17 04:26 05:30 Sodium Cancelled 140.1 Potassium Cancelled 4.3 Chloride Cancelled 104 Carbon Dioxide Cancelled 24 Anion Gap Cancelled 12 BUN Cancelled 19 Creatinine Cancelled 1.09 Est GFR ( Amer) Cancelled > 60 Est GFR (Non-Af Amer) Cancelled 57 L Glucose Cancelled 222 H Calcium Cancelled 9.2 Impressions: Chest X-Ray 08/29/17 10:40 IMPRESSION: NO ACUTE RADIOGRAPHIC FINDING IN THE CHEST. Assessment & Plan - Time Time Spent with patient: 15-24 minutes Medications reviewed and adjusted accordingly: Yes Anticipated discharge: Home Within: within 24 hours - Inpatient Certification Based on my medical assessment, after consideration of the patient's comorbidities, presenting symptoms, or acuity I expect that the services needed warrant INPATIENT care.: Yes Medical Necessity: Risk of Complication if Not Cared For in Hospital, Risk of Diagnosis Which Will Require Inpatient Eval/Care/Monitoring - Plan Summary Plan Summary: 1. Diabetic ketoacidosis. resolved 2. Acute kidney injury likely from dehydration. Encourage oral hydration 3. Hyperkalemia secondary to insulin deficiency. This is corrected 4. Drug-seeking behavior as per records. Will suggest judicious use of narcotics if at all. Continue NSAIDs as appropriate 5. Leukocytosis probably reactive. I see no evidence of any acute infection at this time will continue to monitor 6. Hypertensive urgency we will start on Norvasc and monitor overnight and if she is better controlled plan to discharge in a.m. Patient did have a CT of the abdomen and pelvis done on August 22, 2017 which revealed a few punctate calcification along the pancreatic head from prior episodes of pancreatitis but no evidence of acute peripancreatic retro- peritoneal inflammation
[2017-08-31] MEDS: KETOROLAC TROMETHAMINE INJ/PF 30 MG/1 ML SDV IM PRN (17:27)
[2017-08-31] MEDS: ATORVASTATIN CALCIUM 20 MG TABLET PO SCH (21:51)
[2017-08-31] MEDS: INSULIN LISPRO 100 UNIT/ML 3 ML VIAL SUBCUT PRN (21:52)
[2017-08-31] MEDS ORDERED: INSULIN GLARGINE,HUM.REC.ANLOG 300 UNIT/3 ML INSULN.PEN SUBCUT SCH (22:00)
[2017-09-01 05:10] LABS: ABSOLUTE EOSINOPHILS # (AUTO) 0.1 10^3/uL (0.0-0.6); ABSOLUTE LYMPHOCYTES (AUTO) 3.1 10^3/uL (0.5-4.7); ABSOLUTE MONOCYTES (AUTO) 0.8 10^3/uL (0.1-1.4); ABSOLUTE NEUT (AUTO) 4.6 10^3/uL (1.7-8.2); BASOPHILS % (AUTO) 0.3 % (0-2); EOSINOPHILS % (AUTO) 0.6 % (0-6); HEMATOCRIT 27.4 % (36.0-47.0); HEMOGLOBIN 9.3 g/dL (12.0-15.5); LYMPHOCYTES % (AUTO) 36.3 % (13-45); MEAN CORPUSCULAR HEMOGLOBIN 29.3 pg (27.0-33.4); MEAN CORPUSCULAR HGB CONC 34.1 g/dL (32.0-36.0); MEAN CORPUSCULAR VOLUME 86 fl (80-97); MONOCYTES % (AUTO) 9.3 % (3-13); PLATELET COUNT 380 10^3/uL (150-450); RED BLOOD COUNT 3.19 10^6/uL (3.72-5.28); RED CELL DISTRIBUTION WIDTH 14.1 % (11.5-14.0); SEGMENTED NEUTROPHILS % (AUTO) 53.5 % (42-78); TOTAL CELLS COUNTED % (AUTO) 100 %; WHITE BLOOD COUNT 8.5 10^3/uL (4.0-10.5)
[2017-09-01 05:28] LABS: ANION GAP 11 (5-19); BLOOD UREA NITROGEN 25 mg/dL (7-20); CALCIUM 8.8 mg/dL (8.4-10.2); CARBON DIOXIDE 24 mmol/L (22-30); CHLORIDE 105 mmol/L (98-107); GLUCOSE 235 mg/dL (75-110); POTASSIUM 3.8 mmol/L (3.6-5.0); SODIUM 139.6 mmol/L (137-145)
[2017-09-01] MEDS: METOCLOPRAMIDE HCL 10 MG TABLET PO SCH (08:11)
[2017-09-01] MEDS: INSULIN LISPRO 100 UNIT/ML 3 ML VIAL SUBCUT SCH (08:11)
[2017-09-01] MEDS: KETOROLAC TROMETHAMINE INJ/PF 30 MG/1 ML SDV IM PRN (09:02)
--- NOTE | 2017-09-01 10:29 | PDOC DISCHARGE SUMMARY ---
General - Admit/Disc Date/PCP Admission Date/Primary Care Provider: 08/30/17 14:17 RADHA LOCKHART MD Discharge Date: 09/01/17 - Discharge Diagnosis (1) Hypertensive urgency Is this a current diagnosis for this admission?: Yes (2) Diabetic ketoacidosis associated with type 2 diabetes mellitus Is this a current diagnosis for this admission?: Yes (3) RONIT (acute kidney injury) Is this a current diagnosis for this admission?: Yes (4) Anemia Is this a current diagnosis for this admission?: Yes (5) Chronic abdominal pain Is this a current diagnosis for this admission?: Yes (6) Nonadherence to medication Is this a current diagnosis for this admission?: Yes - Additional Information Resuscitation Status: Full Code Discharge Diet: Cardiac Discharge Activity: Activity As Tolerated Home Medications: Atorvastatin Calcium [Lipitor 20 mg Tablet] 20 mg PO QHS 08/29/17 Insulin Aspart [Novolog Insulin (Aspart) 100 unit/mL] 10 units SQ MEALS Insulin Glargine,Hum.rec.anlog [Lantus] 30 units SQ QHS 08/29/17 Lisinopril [Prinivil 40 mg Tablet] 40 mg PO DAILY 08/29/17 Metoprolol Tartrate [Lopressor 25 mg Tablet] 25 mg PO Q12 08/29/17 Metoclopramide HCl [Reglan 10 mg Tablet] 10 mg PO ACHS tablet 09/01/17 History of Present Illness Patient complains of: abdominal pain History of Present Illness: JJ HOFFMAN is a 36 year old female female with history of diabetes mellitus type 1, essential hypertension, alcoholism, illicit drug use, seizures and chronic pancreatitis; who presents to [facility] ER this morning complaining of upper abdominal pain and vomiting since last night. She did take 30 units of insulin last night. She was hospitalized by Dr. Lockhart's service from August 17- for acute on chronic pancreatitis. He has since discharged her from his service for drug-seeking behaviors. She was seen in the emergency department on August 24 , , and yesterday. The patient denies any fevers or chills. She denies any diarrhea. She denies any other sick contacts at home Hospital Course Hospital Course: This 36-year-old female presents emergency room with complaints of abdominal pain. She was found to have diabetic ketoacidosis. Patient unfortunately has a history of noncompliance with her medications she says because she is unable to afford her insulin and other medications. She also is suspected for drug- seeking behavior although she does have chronic pancreatitis and this may be associated with abdominal pain. CT scan of the abdomen and pelvis done reveals no evidence of acute findings and did confirm a chronic pancreatitis. He was treated for DKA with IV insulin and was transitioned to subacute insulin. Her blood pressure was also a poorly controlled as she admits to not feeling her prescription since she was last discharge due to monetary issues. I have discussed with her the need to be compliant with her medications and to seek help from family members so that she can obtain her medicines in good order Physical Exam Vital Signs: Temp Pulse Resp BP Pulse Ox 98.5 F 85 18 151/83 H 100 09/01/17 07:28 09/01/17 07:28 09/01/17 07:28 09/01/17 07:28 09/01/17 07:28 Intake & Output 08/31/17 09/01/17 09/02/17 06:59 06:59 06:59 Intake Total 874 1804 Balance 874 1804 Weight 58.6 kg 58.9 kg General appearance: PRESENT: no acute distress, thin Head exam: PRESENT: atraumatic, normocephalic Eye exam: PRESENT: conjunctiva pink, EOMI, PERRLA. ABSENT: scleral icterus Ear exam: PRESENT: normal external ear exam Mouth exam: PRESENT: moist, tongue midline Neck exam: ABSENT: carotid bruit, JVD, lymphadenopathy, thyromegaly Respiratory exam: PRESENT: clear to auscultation teddy. ABSENT: rales, rhonchi, wheezes Cardiovascular exam: PRESENT: RRR. ABSENT: diastolic murmur, rubs, systolic murmur Pulses: PRESENT: normal dorsalis pedis pul Vascular exam: PRESENT: normal capillary refill GI/Abdominal exam: PRESENT: normal bowel sounds, soft. ABSENT: distended, guarding, mass, organolmegaly, rebound, tenderness Rectal exam: PRESENT: deferred Extremities exam: PRESENT: full ROM. ABSENT: calf tenderness, clubbing, pedal edema Neurological exam: PRESENT: alert, awake, oriented to person, oriented to place , oriented to time, oriented to situation, CN II-XII grossly intact. ABSENT: motor sensory deficit Psychiatric exam: PRESENT: appropriate affect, normal mood. ABSENT: homicidal ideation, suicidal ideation Skin exam: PRESENT: dry, intact, warm. ABSENT: cyanosis, rash Results Laboratory Results: 09/01/17 04:34 09/01/17 04:34 09/01/17 09/01/17 04:34 04:34 WBC 8.5 RBC 3.19 L Hgb 9.3 L Hct 27.4 L MCV 86 MCH 29.3 MCHC 34.1 RDW 14.1 H Plt Count 380 Seg Neutrophils % 53.5 Lymphocytes % 36.3 Monocytes % 9.3 Eosinophils % 0.6 Basophils % 0.3 Absolute Neutrophils 4.6 Absolute Lymphocytes 3.1 Absolute Monocytes 0.8 Absolute Eosinophils 0.1 Absolute Basophils 0.0 Sodium 139.6 Potassium 3.8 Chloride 105 Carbon Dioxide 24 Anion Gap 11 BUN 25 H Creatinine 1.47 H Est GFR ( Amer) 49 L Est GFR (Non-Af Amer) 40 L Glucose 235 H Calcium 8.8 Impressions: Chest X-Ray 08/29/17 10:40 IMPRESSION: NO ACUTE RADIOGRAPHIC FINDING IN THE CHEST. Qualifiers - * PATIENT BEING DISCHARGED WITH ANY OF THE FOLLOWING DIAGNOSIS: No Plan Time Spent: Greater than 30 Minutes
[2017-09-01 10:30] VITALS: BP 155/88
== END 2017-09-01 11:15 | disposition home or self-care (01) | DRG 638 ==
LOC: ER 09:04 → EH 12:51 → 4S 22:09 → 3W 08-30 01:34 → OBSVTOIN 08-30 14:17
PROVIDERS: ADMIT Internal Medicine; ATTEND Internal Medicine
DX: E10.10 Type 1 diabetes mellitus with ketoacidosis without coma (principal); N17.9 Acute kidney failure, unspecified; K86.0 Alcohol-induced chronic pancreatitis; I16.0 Hypertensive urgency; I10 Essential (primary) hypertension; D64.9 Anemia, unspecified; E78.00 Pure hypercholesterolemia, unspecified; F17.210 Nicotine dependence, cigarettes, uncomplicated; K70.30 Alcoholic cirrhosis of liver without ascites; F19.10 Other psychoactive substance abuse, uncomplicated; E10.43 Type 1 diabetes mellitus with diabetic autonomic (poly)neuropathy; K31.84 Gastroparesis; F12.90 Cannabis use, unspecified, uncomplicated; E86.0 Dehydration; E87.5 Hyperkalemia; R00.0 Tachycardia, unspecified; Z76.5 Malingerer [conscious simulation]; Z91.14 Patient's other noncompliance with medication regimen; Z79.899 Other long term (current) drug therapy; Z90.710 Acquired absence of both cervix and uterus; Z79.4 Long term (current) use of insulin; Z88.6 Allergy status to analgesic agent; Z83.3 Family history of diabetes mellitus; Z82.49 Family history of ischemic heart disease and other diseases of the circulatory system
CPT/HCPCS: 36415; 36600; 71045; 80048; 80053; 80307; 81001; 82803; 82947; 82962; 83690; 83735; 85025; 87086; 93005; 93010; 96361; 96374; 96375; 99285; G0378; J0360; J1170; J1650; J1815; J1885; J2550; J2765; J3490; J7030; S0028; S0119

== ENCOUNTER 2017-09-04 14:51 | Inpatient (IN) | payer MEDICAID ==
[2017-09-04] MEDS ORDERED: KETOROLAC TROMETHAMINE INJ/PF 30 MG/1 ML SDV IV ONE (15:02)
[2017-09-04] MEDS ORDERED: DIPHENHYDRAMINE HCL 50 MG/ML VIAL IV ONE (15:05)
[2017-09-04] MEDS ORDERED: HALOPERIDOL LACTATE INJ 5 MG/1 ML VIAL IV ONE (15:05)
--- NOTE | 2017-09-04 15:05 | ER Document Report ---
ED General - General Stated Complaint: POSSIBLE SEIZURE Time Seen by Provider: 09/04/17 14:54 Mode of Arrival: Medic Information source: Patient, Emergency Med Personnel, [facility] Records Cannot obtain history due to: Uncooperative Notes: 36-year-old female history of bipolar disorder chronic pancreatitis and narcotic seeking behavior presents with complaints of abdominal pain. EMS was initially called for seizure-like activity, however the patient then started stating that her real complaint is left upper quadrant abdominal pain. Is not patient has recently moved here [place] a different [place]. She has been seen in the emergency department 10 times in the past month and a half. TRAVEL OUTSIDE OF THE [place] IN LAST 30 DAYS: No - HPI Onset: Just prior to arrival Onset/Duration: Sudden Quality of pain: Sharp Severity: Mild Pain Level: 2 Associated symptoms: Nausea, Other Exacerbated by: Denies Relieved by: Denies Similar symptoms previously: Yes Recently seen / treated by doctor: Yes - Related Data Allergies/Adverse Reactions: hydrocodone [From [place]] Allergy (Verified 09/04/17 14:53) morphine Allergy (Verified 09/04/17 14:53) Past Medical History - Social History Smoking Status: Unknown if Ever Smoked Cigarette use (# per day): No Chew tobacco use (# tins/day): No Smoking Education Provided: No Family History: DM, Hypertension - Past Medical History Cardiac Medical History: Reports: Hx Hypercholesterolemia, Hx Hypertension Endocrine Medical History: Reports: Hx Diabetes Mellitus Type 1, Hx Diabetes Mellitus Type 2 Renal/ Medical History: Denies: Hx Peritoneal Dialysis GI Medical History: Reports: Hx Cirrhosis Past Surgical History: Reports: Hx Section - x3, Hx Hysterectomy Review of Systems - Review of Systems Notes: REVIEW OF SYSTEMS: CONSTITUTIONAL : Denies fever, chills, or sweats. Denies recent illness. EENT: Denies eye, ear, throat, or mouth pain or symptoms. Denies nasal or sinus congestion or discharge. Denies throat, tongue, or mouth swelling or difficulty swallowing. CARDIOVASCULAR: Denies chest pain. Denies palpitations or racing or irregular heart beat. Denies ankle edema. RESPIRATORY: Denies cough, cold, or chest congestion. Denies shortness of breath, difficulty breathing, or wheezing. GASTROINTESTINAL: Admits to abdominal pain nausea GENITOURINARY: Denies difficulty urinating, painful urination, burning, frequency, blood in urine, or discharge. FEMALE GENITOURINARY: Denies vaginal bleeding, heavy or abnormal periods, irregular periods. Denies vaginal discharge or odor. MUSCULOSKELETAL: Denies back or neck pain or stiffness. Denies joint pain or swelling. SKIN: Denies rash, lesions or sores. HEMATOLOGIC : Denies easy bruising or bleeding. LYMPHATIC: Denies swollen, enlarged glands. NEUROLOGICAL: Initially admits seizure activity PSYCHIATRIC: Denies anxiety or stress. Denies depression, suicidal ideation, or homicidal ideation. ALL OTHER SYSTEMS REVIEWED AND NEGATIVE. PHYSICAL EXAMINATION: GENERAL: Well-appearing, well-nourished and in no acute distress. HEAD: Atraumatic, normocephalic. EYES: Pupils equal round and reactive to light, extraocular movements intact, conjunctiva are normal. ENT: Nares patent, oropharynx clear without exudates. Moist mucous membranes. NECK: Normal range of motion, supple without lymphadenopathy LUNGS: Breath sounds clear to auscultation bilaterally and equal. No wheezes rales or rhonchi. HEART: Regular rate and rhythm without murmurs ABDOMEN: Soft, tender left upper quadrant no rebound or guarding no masses appreciated Female : deferred Musculoskeletal: Normal range of motion, no pitting or edema. No cyanosis. NEUROLOGICAL: Cranial nerves grossly intact. Normal speech, normal gait. Normal sensory, motor exams PSYCH: Patient is noted to be tearful SKIN: Warm, Dry, normal turgor, no rashes or lesions noted. Dictation was performed using [employer] voice recognition software Physical Exam - Vital signs Vitals: Pulse Ox 100 09/04/17 15:08 Course - Re-evaluation Re-evalutation: 09/04/17 15:04 Review of patient's multiple previous charts notes drug-seeking tendencies, history of drug abuse, history of alcohol abuse. Patient has been noted on previous charts to be "dramatic" crying and appears in pain when physicians evaluate her but when nursing staff checks on her patient is happy walking through the halls. Patient is also noted to have bipolar disorder. She does have a history of chronic pancreatitis, given this extensive concerns of narcotic abuse I am hesitant to use such medication and explained this to the patient, her hx of extreme noncompliance with her home medications is noted and ems stated bs 454. Will treat with iv fluids, haldol for nausea control. 09/04/17 15:08 09/04/17 16:42 I attempted 4 different IV attempts ultrasound-guided and was unable to access she was able to give blood but not enough for all the tubes. Patient requests we go into her feet or her neck, there is extensive scar tissue of the neck as well as the arms do not feel comfortable performing this procedure given how extensive the scar tissue is. We will go on her feet at her request even though she is diabetic 09/04/17 19:35 Patient is noted to be hyperglycemic, overall stable but does have ketones in the urine I will admit her for concerns that she may go into DKA - Vital Signs Vital signs: Temp Pulse Resp BP Pulse Ox 24 H 139/79 H 100 09/04/17 18:44 09/04/17 18:44 09/04/17 18:44 - Laboratory Result Diagrams: 09/04/17 17:11 09/04/17 17:50 Laboratory results interpreted by me: 09/04/17 09/04/17 09/04/17 17:11 17:40 17:50 WBC 11.8 H RBC 3.59 L Hgb 10.3 L Hct 31.7 L RDW 14.3 H Plt Count 480 H Seg Neutrophils % 81.9 H Absolute Neutrophils 9.6 H VBG pCO2 34.7 L VBG HCO3 17.8 L Sodium Carbon Dioxide Anion Gap BUN Creatinine Est GFR ( Amer) Est GFR (Non-Af Amer) Glucose Alkaline Phosphatase Total Protein Lipase Urine Protein 100 H Urine Glucose (UA) >=500 H Urine Ketones 20 H Urine Blood SMALL H 09/04/17 17:50 WBC RBC Hgb Hct RDW Plt Count Seg Neutrophils % Absolute Neutrophils VBG pCO2 VBG HCO3 Sodium 136.1 L Carbon Dioxide 18 L Anion Gap 20 H BUN 31 H Creatinine 1.31 H Est GFR ( Amer) 56 L Est GFR (Non-Af Amer) 46 L Glucose 604 H* Alkaline Phosphatase 172 H Total Protein 6.2 L Lipase 645.5 H Urine Protein Urine Glucose (UA) Urine Ketones Urine Blood Discharge - Discharge Clinical Impression: RONIT (acute kidney injury), SUBSTANCE DRUG ABUSED, Hyperglycemia Pancreatitis Qualifiers: Chronicity: acute Pancreatitis type: other Acute pancreatitis complication: unspecified Qualified Code(s): K85.80 - Other acute pancreatitis without necrosis or infection Condition: Stable Disposition: ADMITTED INPATIENT Admitting Provider: Hospitalist Unit Admitted: IMCU Referrals: RADHA LOCKHART MD [Primary Care Provider] - Follow up as needed
[2017-09-04] MEDS: NORMAL SALINE 1000 ML 1,000 ML IV PRN ×5 (17:03→21:46)
[2017-09-04 17:29] LABS: ABSOLUTE LYMPHOCYTES (AUTO) 1.7 10^3/uL (0.5-4.7); ABSOLUTE MONOCYTES (AUTO) 0.4 10^3/uL (0.1-1.4); ABSOLUTE NEUT (AUTO) 9.6 10^3/uL (1.7-8.2); BASOPHILS % (AUTO) 0.4 % (0-2); EOSINOPHILS % (AUTO) 0.4 % (0-6); HEMATOCRIT 31.7 % (36.0-47.0); HEMOGLOBIN 10.3 g/dL (12.0-15.5); MEAN CORPUSCULAR HEMOGLOBIN 28.6 pg (27.0-33.4); MEAN CORPUSCULAR HGB CONC 32.4 g/dL (32.0-36.0); MEAN CORPUSCULAR VOLUME 88 fl (80-97); MONOCYTES % (AUTO) 3.3 % (3-13); PLATELET COUNT 480 10^3/uL (150-450); RED BLOOD COUNT 3.59 10^6/uL (3.72-5.28); RED CELL DISTRIBUTION WIDTH 14.3 % (11.5-14.0); SEGMENTED NEUTROPHILS % (AUTO) 81.9 % (42-78); TOTAL CELLS COUNTED % (AUTO) 100 %; WHITE BLOOD COUNT 11.8 10^3/uL (4.0-10.5)
[2017-09-04 17:56] LABS: APPEARANCE,URINE SLIGHTLY-CLOUDY; BILIRUBIN,URINE NEGATIVE (NEGATIVE); COLOR,URINE STRAW; GLUCOSE, URINE >=500 mg/dL (NEGATIVE); KETONES,URINE 20 mg/dL (NEGATIVE); LEUKOCYTE ESTERASE,URINE NEGATIVE (NEGATIVE); NITRITE,URINE NEGATIVE (NEGATIVE); PROTEIN,URINE 100 mg/dL (NEGATIVE); URINE SPECIFIC GRAVITY 1.017; UROBILINOGEN,URINE NEGATIVE mg/dL (<2.0)
[2017-09-04 18:02] LABS: VENOUS BLOOD BASE EXCESS -7.3 mmol/L; VENOUS BLOOD HCO3 17.8 mmol/L (20-32); VENOUS BLOOD PCO2 34.7 mmHg (35-63); VENOUS BLOOD PH 7.33 (7.30-7.42)
[2017-09-04 18:19] LABS: URINE AMPHETAMINES SCREEN NEGATIVE; URINE BARBITURATES SCREEN NEGATIVE; URINE BENZODIAZEPINES SCREEN NEGATIVE; URINE COCAINE SCREEN NEGATIVE; URINE MARIJUANA (THC) SCREEN NEGATIVE; URINE METHADONE SCREEN NEGATIVE; URINE PHENCYCLIDINE SCREEN NEGATIVE
[2017-09-04 18:19] LABS: ALANINE AMINOTRANSFERASE 47 U/L (9-52); ALBUMIN 3.5 g/dL (3.5-5.0); ALKALINE PHOSPHATASE 172 U/L (38-126); ASPARTATE AMINO TRANSFERASE 21 U/L (14-36); BILIRUBIN,DIRECT 0.4 mg/dL (0.0-0.4); BILIRUBIN,TOTAL 0.5 mg/dL (0.2-1.3); BLOOD UREA NITROGEN 31 mg/dL (7-20); CALCIUM 9.3 mg/dL (8.4-10.2); LIPASE 645.5 U/L (23-300); POTASSIUM 4.7 mmol/L (3.6-5.0); TOTAL PROTEIN 6.2 g/dL (6.3-8.2)
[2017-09-04 18:24] LABS: CARBON DIOXIDE 18 mmol/L (22-30); CHLORIDE 98 mmol/L (98-107); SODIUM 136.1 mmol/L (137-145)
[2017-09-04 18:26] LABS: ANION GAP 20 (5-19)
[2017-09-04 18:32] LABS: GLUCOSE 604 mg/dL (75-110)
[2017-09-04] MEDS ORDERED: INSULIN REG, HUMAN 100 UNIT/ML 3 ML VIAL (PYX) IV ONE ×2 (18:35→20:17)
[2017-09-04] MEDS ORDERED: HYDROMORPHONE HCL INJ/PF 2 MG/ML AMPULE IV ONE (20:19)
[2017-09-04] MEDS ORDERED: GLUCAGON,HUMAN RECOMB 1 MG INJ SUBCUT PRN (22:05)
[2017-09-04] MEDS ORDERED: DEXTROSE 40% GEL 15 GM TUBE PO PRN ×4 (22:05→22:18)
[2017-09-04] MEDS ORDERED: ONDANSETRON HCL INJ/PF 4 MG/2 ML SDV IV PRN (22:05)
[2017-09-04] MEDS ORDERED: DEXTROSE 50%-WATER 25 GM/50 ML DISP.SYRIN IV PRN ×4 (22:05→22:18)
[2017-09-04] MEDS ORDERED: GLUCAGON,HUMAN RECOMB 1 MG INJ IM PRN (22:18)
[2017-09-04] MEDS ORDERED: INSULIN GLARGINE,HUM.REC.ANLOG 1,000 UNIT/10 ML UNIT SUBCUT ONE (22:37)
[2017-09-04] MEDS ORDERED: PANTOPRAZOLE SODIUM 40 MG VIAL IV ONE (23:00)
[2017-09-04] MEDS ORDERED: INSULIN GLARGINE,HUM.REC.ANLOG 300 UNIT/3 ML INSULN.PEN SUBCUT ONE (23:00)
[2017-09-04 23:10] LABS: HEMATOCRIT 25.4 % (36.0-47.0); HEMOGLOBIN 8.3 g/dL (12.0-15.5); MEAN CORPUSCULAR HEMOGLOBIN 28.5 pg (27.0-33.4); MEAN CORPUSCULAR HGB CONC 32.9 g/dL (32.0-36.0); MEAN CORPUSCULAR VOLUME 87 fl (80-97); PLATELET COUNT 455 10^3/uL (150-450); RED BLOOD COUNT 2.93 10^6/uL (3.72-5.28); RED CELL DISTRIBUTION WIDTH 14.1 % (11.5-14.0); WHITE BLOOD COUNT 16.2 10^3/uL (4.0-10.5)
[2017-09-04 23:29] LABS: INTERNATIONAL RATION (INR) 1.02; PROTHROMBIN TIME 13.9 SEC (11.4-15.4)
[2017-09-04 23:59] LABS: ANION GAP 15 (5-19); BLOOD UREA NITROGEN 28 mg/dL (7-20); CALCIUM 8.3 mg/dL (8.4-10.2); CARBON DIOXIDE 15 mmol/L (22-30); CHLORIDE 111 mmol/L (98-107); GLUCOSE 239 mg/dL (75-110); POTASSIUM 4.5 mmol/L (3.6-5.0); SODIUM 140.7 mmol/L (137-145)
[2017-09-05] MEDS: INSULIN LISPRO 100 UNIT/ML 3 ML VIAL SUBCUT PRN ×3 (00:52→20:57)
[2017-09-05] MEDS: HYDROMORPHONE HCL INJ/PF 2 MG/ML AMPULE IV PRN ×4 (00:53→17:27)
--- NOTE | 2017-09-05 01:00 | PDOC H&P ---
History of Present Illness Admission Date/PCP: 09/04/17 20:00 RADHA LOCKHART MD Patient complains of: Abdominal pain and weakness History of Present Illness: JJ HOFFMAN is a 36 year old woman with a history of substance use disorder and alcohol use disorder, clean for several years corroborated by her daughter. The patient has recently moved to the [facility] and secondary to significant medical problems she has been seen in our ER multiple times. She was seeing Dr. Lockhart for primary care but they have recently due to what sounds like patient dissatisfaction. The patient came into the ER with severe abdominal pain. She has a history of chronic pancreatitis. Her lipase is very elevated. She also had an elevated glucose, has what sounds like poorly controlled diabetes. She is having nausea but no emesis. She is feeling weak. No dysuria, no cough or sputum, no fevers or chills, no bleeding. She is being admitted to the hospitalist service with acute on chronic pancreatitis and hyperglycemia. Of note she also has acute kidney injury and does appear to be dehydrated. Past Medical History Cardiac Medical History: Reports: Hyperlipidema, Hypertension Pulmonary Medical History: Denies: Chronic Obstructive Pulmonary Disease (COPD) EENT Medical History: Denies: Eyes Neurological Medical History: Denies: Ischemic CVA Endocrine Medical History: Reports: Diabetes Mellitus Type 1, Diabetes Mellitus Type 2 Renal/ Medical History: Denies: End Stage Renal Disease Malignancy Medical History: Reports: None GI Medical History: Reports: Cirrhosis Musculoskeltal Medical History: Denies: Arthritis Skin Medical History: Denies: Eczema, Psoriasis Psychiatric Medical History: Reports: Substance Abuse, Tobacco Dependency Denies: Dementia, Depression, General Anxiety Disorder Traumatic Medical History: Denies: None Hematology: Denies: Anemia Infectious History Note: Unknown Past Surgical History Past Surgical History: Reports: Section - x3, Hysterectomy Social History Information Source: Patient, Relative Lives with: Family Smoking Status: Current Every Day Smoker Cigarettes Packs Per Day: 0.3 Number of Years Smokin Frequency of Alcohol Use: None Hx Recreational Drug Use: Yes Drugs: Marijuana, Other - Patient stopped using alcohol about 5 years ago. Her children help her stay sober. Hx Prescription Drug Abuse: Yes - Advance Directive Resuscitation Status: Full Code Surrogate healthcare decision maker:: Mother Felicita Simpson phone [phone] Family History Family History: DM, Hypertension Parental Family History Reviewed: Yes - Father with diabetes and hypertension Children Family History Reviewed: Yes - Children are healthy, 1 17-year-old daughter is at her bedside Sibling(s) Family History Reviewed.: Yes - Sister has hypertension and another sister has epilepsy Medication/Allergy Home Medications: Atorvastatin Calcium [Lipitor 20 mg Tablet] 20 mg PO QHS 08/29/17 Insulin Aspart [Novolog Insulin (Aspart) 100 unit/mL] 10 units SQ MEALS Insulin Glargine,Hum.rec.anlog [Lantus] 30 units SQ QHS 08/29/17 Lisinopril [Prinivil 40 mg Tablet] 40 mg PO DAILY 08/29/17 Metoprolol Tartrate [Lopressor 25 mg Tablet] 25 mg PO Q12 08/29/17 Metoclopramide HCl [Reglan 10 mg Tablet] 10 mg PO ACHS tablet 09/01/17 Allergies/Adverse Reactions: hydrocodone [From [place]] Allergy (Verified 09/04/17 14:53) morphine Allergy (Verified 09/04/17 14:53) Review of Systems Constitutional: PRESENT: anorexia. ABSENT: fever(s), headache(s) Eyes: ABSENT: visual disturbances Ears: ABSENT: hearing changes Nose, Mouth, and Throat: PRESENT: other - Dry mouth. ABSENT: sore throat Cardiovascular: ABSENT: chest pain, dyspnea on exertion, palpitations Respiratory: ABSENT: hemoptysis, sputum Gastrointestinal: PRESENT: abdominal pain, nausea. ABSENT: coffee ground emesis , vomiting Genitourinary: ABSENT: dysuria Musculoskeletal: ABSENT: deformity, joint swelling Integumentary: ABSENT: diaphoresis, lesions, pruritus Neurological: PRESENT: other - No neuropathy. ABSENT: dizziness, focal weakness , syncope Psychiatric: ABSENT: anxiety, depression Endocrine: ABSENT: cold intolerance, heat intolerance Hematologic/Lymphatic: ABSENT: easy bleeding, easy bruising Allergic/Immunologic: ABSENT: seasonal rhinorrhea Physical Exam Vital Signs: Temp Pulse Resp BP Pulse Ox 97.9 F 101 H 20 146/84 H 100 09/05/17 00:04 09/05/17 00:04 09/05/17 00:04 09/05/17 00:04 09/05/17 00:04 Intake & Output 09/03/17 09/04/17 09/05/17 06:59 06:59 06:59 Intake Total 1000 Balance 1000 Weight 62.8 kg General appearance: PRESENT: mild distress, thin Head exam: PRESENT: atraumatic, normocephalic Eye exam: PRESENT: EOMI. ABSENT: conjunctival injection, scleral icterus Mouth exam: PRESENT: dry mucosa, tongue midline Neck exam: ABSENT: lymphadenopathy Respiratory exam: PRESENT: clear to auscultation teddy, unlabored. ABSENT: decreased breath sounds, rales, rhonchi, wheezes Cardiovascular exam: PRESENT: RRR. ABSENT: systolic murmur Pulses: PRESENT: normal radial pulses GI/Abdominal exam: PRESENT: guarding, hyperactive bowel sounds, soft, tenderness. ABSENT: distended, firm Rectal exam: PRESENT: deferred Gentrourinary exam: ABSENT: indwelling catheter Extremities exam: ABSENT: joint swelling, pedal edema Musculoskeletal exam: PRESENT: ambulatory Neurological exam: PRESENT: awake, oriented to person, oriented to place, oriented to situation, CN II-XII grossly intact. ABSENT: alert Psychiatric exam: PRESENT: appropriate affect. ABSENT: anxious Skin exam: PRESENT: dry, intact, warm Results Laboratory Results: 09/04/17 22:50 09/04/17 22:50 09/04/17 09/04/17 22:50 22:50 WBC 16.2 H RBC 2.93 L Hgb 8.3 L Hct 25.4 L MCV 87 MCH 28.5 MCHC 32.9 RDW 14.1 H Plt Count 455 H Sodium 140.7 Potassium 4.5 Chloride 111 H Carbon Dioxide 15 L Anion Gap 15 BUN 28 H Creatinine 1.13 Est GFR ( Amer) > 60 Est GFR (Non-Af Amer) 54 L Glucose 239 H Calcium 8.3 L Assessment & Plan - Diagnosis (1) Acute pancreatitis Qualifiers: Pancreatitis type: alcohol induced Acute pancreatitis complication: no infection or necrosis Qualified Code(s): K85.20 - Alcohol induced acute pancreatitis without necrosis or infection Is this a current diagnosis for this admission?: Yes Plan: Lipase 700. Significant abdominal pain without rebound. Patient has history of pancreatitis, possibly alcohol-related in the past. We have gotten her under control with IV Dilaudid. She received 1 mg of IV Dilaudid in the ER and now she is on milligrams dosing as needed severe pain. She will be n.p.o. with very judicious ice chips for comfort. Normal saline at 1 25 mL/h. (2) RONIT (acute kidney injury) Is this a current diagnosis for this admission?: Yes Plan: Patient probably has a prerenal process. Her BUN and creatinine have already improved with fluid hydration. If BUN and creatinine did not return to baseline with fluids then other etiology will need to be considered. She is potentially dehydrated related to her pancreatitis. (3) Hyperglycemia Is this a current diagnosis for this admission?: Yes Plan: Patient has type 2 diabetes. She is on Lantus 35 units and NovoLog 5 units with meals plus sliding scale at home. I have started her on 15 units of Lantus for hyperglycemia and she will be on sliding scale NovoLog. 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 (4) History of alcoholism Is this a current diagnosis for this admission?: Yes Plan: Patient states she has been sober for 5 years, she was a very heavy alcohol user in the past. Her 17-year-old daughter who is at the bedside helps her stay sober. (5) Hypertension Qualifiers: Hypertension type: essential hypertension Qualified Code(s): I10 - Essential (primary) hypertension Is this a current diagnosis for this admission?: Yes Plan: Blood pressure has been reasonably well controlled. She does not know exactly what blood pressure medications she is on though she believe that metoprolol and lisinopril or 2 of them, doses unknown. We will await medication reconciliation but start medication if needed prior to that. 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 Patient may need diabetic education while she is here. (7) Anemia Is this a current diagnosis for this admission?: Yes Plan: Patient is not actively bleeding as far as we can tell. Her hemoglobin dropped with fluid hydration. Will check hemoglobin again in several hours. For this reason no DVT prophylaxis, pharmacologic, is being given now, SCDs have been started. Anemia studies have been ordered. - Time Time Spent: 50 to 70 Minutes Medications reviewed and adjusted accordingly: Yes - Inpatient Certification Based on my medical assessment, after consideration of the patient's comorbidities, presenting symptoms, or acuity I expect that the services needed warrant INPATIENT care.: Yes I certify that my determination is in accordance with my understanding of Medicare's requirements for reasonable and necessary INPATIENT services [42 CFR 412.3e].: Yes Medical Necessity: Need Close Monitoring Due to Risk of Patient Decompensation, Risk of Complication if Not Cared For in Hospital
[2017-09-05 01:56] LABS: ABSOLUTE RETICS # 0.037 10^6/uL (0.028-0.122); RETICULOCYTE COUNT (AUTO) 1.23 % (0.66-2.85)
[2017-09-05 02:14] LABS: IRON(TIBC) 37.3 ug/dL (37-170)
[2017-09-05 03:24] LABS: FOLATE > 20.00 ng/mL (>2.76)
[2017-09-05 06:54] LABS: HEMATOCRIT 25.5 % (36.0-47.0); HEMOGLOBIN 8.5 g/dL (12.0-15.5); MEAN CORPUSCULAR HEMOGLOBIN 28.7 pg (27.0-33.4); MEAN CORPUSCULAR HGB CONC 33.2 g/dL (32.0-36.0); MEAN CORPUSCULAR VOLUME 86 fl (80-97); PLATELET COUNT 394 10^3/uL (150-450); RED BLOOD COUNT 2.95 10^6/uL (3.72-5.28); WHITE BLOOD COUNT 13.6 10^3/uL (4.0-10.5)
[2017-09-05 07:03] LABS: ANION GAP 7 (5-19); BLOOD UREA NITROGEN 24 mg/dL (7-20); CALCIUM 8.5 mg/dL (8.4-10.2); CARBON DIOXIDE 22 mmol/L (22-30); CHLORIDE 114 mmol/L (98-107); GLUCOSE 80 mg/dL (75-110); POTASSIUM 4.3 mmol/L (3.6-5.0); SODIUM 143.4 mmol/L (137-145); TRIGLYCERIDES 92 mg/dL (<150)
[2017-09-05 07:14] LABS: DIRECT LDL 85 mg/dL (<100)
[2017-09-05] MEDS ORDERED: PANTOPRAZOLE SODIUM 40 MG VIAL IV SCH (10:00)
--- NOTE | 2017-09-05 14:21 | PDOC PROGRESS REPORT ---
Subjective Progress Note for:: 09/05/17 Subjective:: Ms. Kinsey was just discharged about 5 days ago and presents again with the abdominal pain and hyperglycemia. Her blood sugar was in the 600s on admission. Although we try to ensure that patient had a medications and necessary soles at discharge she now says that although she was able to obtain her insulin from the pharmacy she did not have access to syringes and needle and so did not use her insulin during all the days that she was gone for about 4 days. She does quickly corrected after receiving her insulin. Patient also continues to complain of abdominal pain. CT scan that had been done on August 22 during the last admission revealed no acute findings. Patient also had a CT scan of the abdomen done on July 11, 2017. In addition this month of August alone she has had 2 abdominal CTs done one abdominal ultrasound done 1 renal ultrasound done 1 vascular ultrasound done on 1 abdominal x-ray done. It appears she does have chronic pancreatitis. Lipase was slightly elevated on admission but it is now down to 235. I see patient is on no pancreatic enzyme supplement. There is also a question of drug-seeking behavior. There is also the issue of noncompliance and all this needs to be addressed to help this patient maximize her potential wellness and well-being Reason For Visit: ACUATEON CHRONIC PANCREATITIS, HYPERGLYCEMIA Physical Exam Vital Signs: Temp Pulse Resp BP Pulse Ox 97.9 F 86 12 139/82 H 100 09/05/17 07:20 09/05/17 07:20 09/05/17 07:20 09/05/17 07:20 09/05/17 07:20 Intake & Output 09/04/17 09/05/17 09/06/17 06:59 06:59 06:59 Intake Total 1000 Output Total 500 Balance 500 Weight 32.8 kg General appearance: PRESENT: no acute distress, thin Head exam: PRESENT: atraumatic, normocephalic Eye exam: PRESENT: conjunctiva pink, EOMI, PERRLA. ABSENT: scleral icterus Ear exam: PRESENT: normal external ear exam Mouth exam: PRESENT: moist, tongue midline Neck exam: ABSENT: carotid bruit, JVD, lymphadenopathy, thyromegaly Respiratory exam: PRESENT: clear to auscultation teddy. ABSENT: rales, rhonchi, wheezes Cardiovascular exam: PRESENT: RRR. ABSENT: diastolic murmur, rubs, systolic murmur Pulses: PRESENT: normal dorsalis pedis pul Vascular exam: PRESENT: normal capillary refill GI/Abdominal exam: PRESENT: normal bowel sounds, soft, tenderness - mild L CVAT. ABSENT: distended, guarding, mass, organolmegaly, rebound Rectal exam: PRESENT: deferred Extremities exam: PRESENT: full ROM. ABSENT: calf tenderness, clubbing, pedal edema Neurological exam: PRESENT: alert, awake, oriented to person, oriented to place , oriented to time, oriented to situation, CN II-XII grossly intact. ABSENT: motor sensory deficit Psychiatric exam: PRESENT: appropriate affect, normal mood. ABSENT: homicidal ideation, suicidal ideation Skin exam: PRESENT: dry, intact, warm. ABSENT: cyanosis, rash Results Laboratory Results: 09/05/17 06:33 09/05/17 06:33 09/04/17 09/04/17 09/05/17 22:50 22:50 01:18 WBC 16.2 H RBC 2.93 L Hgb 8.3 L Hct 25.4 L MCV 87 MCH 28.5 MCHC 32.9 RDW 14.1 H Plt Count 455 H Retic Count (auto) Absolute Retic Sodium 140.7 Potassium 4.5 Chloride 111 H Carbon Dioxide 15 L Anion Gap 15 BUN 28 H Creatinine 1.13 Est GFR ( Amer) > 60 Est GFR (Non-Af Amer) 54 L Glucose 239 H Lactic Acid 0.8 Calcium 8.3 L Iron TIBC % Saturation Ferritin Triglycerides Cholesterol LDL Cholesterol Direct VLDL Cholesterol HDL Cholesterol Lipase Vitamin B12 Folate 09/05/17 09/05/17 09/05/17 01:42 01:42 06:33 WBC 13.6 H RBC 2.95 L Hgb 8.5 L Hct 25.5 L MCV 86 MCH 28.7 MCHC 33.2 RDW 14.0 Plt Count 394 Retic Count (auto) 1.23 Absolute Retic 0.037 Sodium Potassium Chloride Carbon Dioxide Anion Gap BUN Creatinine Est GFR ( Amer) Est GFR (Non-Af Amer) Glucose Lactic Acid Calcium Iron 37.3 TIBC 264 % Saturation 14 Ferritin 128.00 Triglycerides Cholesterol LDL Cholesterol Direct VLDL Cholesterol HDL Cholesterol Lipase Vitamin B12 978.0 H Folate > 20.00 09/05/17 09/05/17 06:33 06:33 WBC RBC Hgb Hct MCV MCH MCHC RDW Plt Count Retic Count (auto) Absolute Retic Sodium 143.4 Potassium 4.3 Chloride 114 H Carbon Dioxide 22 Anion Gap 7 BUN 24 H Creatinine 1.15 Est GFR ( Amer) > 60 Est GFR (Non-Af Amer) 53 L Glucose 80 Lactic Acid Calcium 8.5 Iron TIBC % Saturation Ferritin Triglycerides 92 Cholesterol 181.50 LDL Cholesterol Direct 85 VLDL Cholesterol 18.0 HDL Cholesterol 71 Lipase 235.4 Vitamin B12 Folate Assessment & Plan - Diagnosis (1) Anemia Qualifiers: Anemia type: unspecified type Qualified Code(s): D64.9 - Anemia, unspecified Is this a current diagnosis for this admission?: Yes Plan: Hemoglobin is noted to be low. Iron stores are adequate. There is no clinical evidence of acute blood loss. She has been on IV fluids and anemia clubbing exacerbated with hemodilution. Will monitor H&H and if needed further referrals to be done. (2) Pancreatitis Qualifiers: Chronicity: acute Pancreatitis type: other Acute pancreatitis complication: unspecified Qualified Code(s): K85.80 - Other acute pancreatitis without necrosis or infection Is this a current diagnosis for this admission?: Yes (3) Nonadherence to medication Is this a current diagnosis for this admission?: Yes Plan: Patient needs to be counseled and encourage on medication compliance. 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 Hemoglobin A1c is 11.6 (5) Malnutrition Qualifiers: Malnutrition type: protein-calorie malnutrition Protein-calorie malnutrition severity: severe Qualified Code(s): E43 - Unspecified severe protein-calorie malnutrition Is this a current diagnosis for this admission?: Yes Plan: Patient has a BMI of 12!!!!! There is also a history of alcoholism in the past which may be contributing factors. Will obtain nutrition consult - Time Time Spent with patient: 15-24 minutes Medications reviewed and adjusted accordingly: Yes Anticipated discharge: Home Within: within 48 hours - Inpatient Certification Based on my medical assessment, after consideration of the patient's comorbidities, presenting symptoms, or acuity I expect that the services needed warrant INPATIENT care.: Yes Medical Necessity: Need For IV Fluids, Need for Pain Control
[2017-09-05] MEDS: HYDRALAZINE HCL INJ/PF 20 MG/1 ML SDV IV PRN (17:21)
[2017-09-05] MEDS ORDERED: INSULIN GLARGINE,HUM.REC.ANLOG 300 UNIT/3 ML INSULN.PEN SUBCUT SCH (22:00)
[2017-09-05] MEDS: KETOROLAC TROMETHAMINE INJ/PF 30 MG/1 ML SDV IV PRN (23:29)
[2017-09-06] MEDS: HYDROMORPHONE HCL INJ/PF 2 MG/ML AMPULE IV PRN (03:26)
[2017-09-06] MEDS: NORMAL SALINE 1000 ML 1,000 ML IV PRN (03:30)
[2017-09-06 06:11] LABS: HEMATOCRIT 24.6 % (36.0-47.0); HEMOGLOBIN 8.3 g/dL (12.0-15.5); MEAN CORPUSCULAR HGB CONC 33.6 g/dL (32.0-36.0); MEAN CORPUSCULAR VOLUME 86 fl (80-97); PLATELET COUNT 476 10^3/uL (150-450); RED BLOOD COUNT 2.85 10^6/uL (3.72-5.28); RED CELL DISTRIBUTION WIDTH 13.9 % (11.5-14.0); WHITE BLOOD COUNT 7.4 10^3/uL (4.0-10.5)
[2017-09-06 06:36] LABS: ANION GAP 9 (5-19); BLOOD UREA NITROGEN 16 mg/dL (7-20); CALCIUM 8.9 mg/dL (8.4-10.2); CARBON DIOXIDE 24 mmol/L (22-30); CHLORIDE 108 mmol/L (98-107); GLUCOSE 273 mg/dL (75-110); POTASSIUM 4.5 mmol/L (3.6-5.0); SODIUM 140.5 mmol/L (137-145)
[2017-09-06] MEDS: HYDRALAZINE HCL INJ/PF 20 MG/1 ML SDV IV PRN (07:15)
[2017-09-06] MEDS: KETOROLAC TROMETHAMINE INJ/PF 30 MG/1 ML SDV IV PRN (07:18)
[2017-09-06] MEDS: INSULIN LISPRO 100 UNIT/ML 3 ML VIAL SUBCUT PRN (08:53)
[2017-09-06 13:53] VITALS: BP 157/90
--- NOTE | 2017-09-06 17:45 | PDOC DISCHARGE SUMMARY ---
General - Admit/Disc Date/PCP Admission Date/Primary Care Provider: 09/04/17 20:00 Discharge Date: 09/06/17 - Discharge Diagnosis (1) Acute pancreatitis Is this a current diagnosis for this admission?: Yes Summary: Resolved. Her diet has been successfully advanced. (2) Anemia Is this a current diagnosis for this admission?: Yes Summary: She has a normocytic anemia consistently consistent with chronic disease. She also had a precipitous drop in her hemoglobin due to hemodilution. (3) Type 2 diabetes mellitus Is this a current diagnosis for this admission?: Yes Summary: Her blood sugars are uncontrolled. She needs to follow-up with her primary care physician for titration. (4) Noncompliance Is this a current diagnosis for this admission?: Yes Summary: We will get her an appointment to follow-up with her primary care provider at discharge. She has been counseled regarding the importance of compliance. (5) Hypertension Is this a current diagnosis for this admission?: Yes Summary: Continue home regimen (6) Hyponatremia Is this a current diagnosis for this admission?: Yes Summary: Likely secondary to dehydration. Resolved (7) Severe protein-calorie malnutrition Is this a current diagnosis for this admission?: Yes Summary: Ruled out. It was previously documented that she had a BMI of 12. Her BMI appears to be 23.8. She does not look profoundly malnourished. I believe this is ruled out - Additional Information Resuscitation Status: Full Code Discharge Diet: Diabetic Discharge Activity: Activity As Tolerated, Balance Activity w/Rest, Slowly Increase Activity Home Medications: Insulin Aspart [Novolog Insulin (Aspart) 100 unit/mL] 10 unit SQ MEALS 09/05/17 Insulin Glargine,Hum.rec.anlog [Lantus] 10 unit SQ QHS 09/05/17 Lisinopril [Prinivil 40 mg Tablet] 40 mg PO DAILY 09/05/17 Metoprolol Tartrate [Lopressor 25 mg Tablet] 25 mg PO Q12 09/05/17 History of Present Illness Patient complains of: Abdominal pain, nausea and vomiting History of Present Illness: JJ HOFFMAN is a 36 year old female Hospital Course Hospital Course: The patient is a 36-year-old -[place] female with past medical history significant for polysubstance abuse and alcohol abuse. She states that she quit drinking alcohol approximately 5 years ago. She recently moved to the [facility]. She has been following with Dr. Maxwell for her primary care. The patient presented to the emergency room with severe abdominal pain. She has a history of chronic pancreatitis. She had an elevated lipase and elevated glucose. The patient does have known diabetes mellitus and is not very compliant with treatment. She was admitted to the hospital. She was made n.p.o. and she was hydrated with normal saline. Her acute kidney injury present at the time of admission has totally resolved. Her lipase level has normalized and her abdominal pain is resolved. Her diet has been successfully advanced. I am making her an appointment to follow-up again with Dr. Maxwell. She will need careful titration of her blood sugar medications. She has been consult counseled regarding the need for greater compliance going forward. At this point maximum hospital benefits been reached. The patient will be discharged home today in stable condition. Physical Exam Vital Signs: Temp Pulse Resp BP Pulse Ox 98.8 F 104 H 16 157/90 H 100 09/06/17 13:52 09/06/17 13:52 09/06/17 13:52 09/06/17 13:52 09/06/17 13:52 Intake & Output 09/05/17 09/06/17 09/07/17 06:59 06:59 06:59 Intake Total 1000 1962 1058 Output Total 500 4500 Balance 500 -2538 1058 Weight 32.8 kg 64.9 kg General appearance: PRESENT: no acute distress, well-developed, well-nourished Head exam: PRESENT: atraumatic, normocephalic Eye exam: PRESENT: conjunctiva pink, EOMI, PERRLA. ABSENT: scleral icterus Ear exam: PRESENT: normal external ear exam Neck exam: ABSENT: carotid bruit, JVD, lymphadenopathy, thyromegaly Respiratory exam: PRESENT: clear to auscultation teddy. ABSENT: rales, rhonchi, wheezes Cardiovascular exam: PRESENT: RRR. ABSENT: diastolic murmur, rubs, systolic murmur Pulses: PRESENT: normal dorsalis pedis pul Vascular exam: PRESENT: normal capillary refill GI/Abdominal exam: PRESENT: normal bowel sounds, soft. ABSENT: distended, guarding, mass, organolmegaly, rebound, tenderness Extremities exam: PRESENT: full ROM. ABSENT: calf tenderness, clubbing, pedal edema Neurological exam: PRESENT: alert, awake, oriented to person, oriented to place , oriented to time, oriented to situation, CN II-XII grossly intact. ABSENT: motor sensory deficit Psychiatric exam: PRESENT: appropriate affect, normal mood. ABSENT: homicidal ideation, suicidal ideation Skin exam: PRESENT: dry, intact, warm. ABSENT: cyanosis, rash Results Laboratory Results: 09/06/17 05:56 09/06/17 05:56 09/06/17 09/06/17 05:56 05:56 WBC 7.4 RBC 2.85 L Hgb 8.3 L Hct 24.6 L MCV 86 MCH 29.0 MCHC 33.6 RDW 13.9 Plt Count 476 H Sodium 140.5 Potassium 4.5 Chloride 108 H Carbon Dioxide 24 Anion Gap 9 BUN 16 Creatinine 1.12 Est GFR ( Amer) > 60 Est GFR (Non-Af Amer) 55 L Glucose 273 H Calcium 8.9 Qualifiers - * PATIENT BEING DISCHARGED WITH ANY OF THE FOLLOWING DIAGNOSIS: No - No admission she Plan Time Spent: Greater than 30 Minutes
== END 2017-09-06 14:52 | disposition home or self-care (01) | DRG 637 ==
LOC: ER 14:51 → EH 20:00 → 3S 23:50
PROVIDERS: ADMIT Internal Medicine; ATTEND Internal Medicine
DX: E11.65 Type 2 diabetes mellitus with hyperglycemia (principal); K85.20 Alcohol induced acute pancreatitis without necrosis or infection; N17.9 Acute kidney failure, unspecified; E87.1 Hypo-osmolality and hyponatremia; R71.0 Precipitous drop in hematocrit; K86.1 Other chronic pancreatitis; E86.0 Dehydration; F10.21 Alcohol dependence, in remission; D64.9 Anemia, unspecified; E78.5 Hyperlipidemia, unspecified; F31.9 Bipolar disorder, unspecified; I10 Essential (primary) hypertension; K74.60 Unspecified cirrhosis of liver; F17.210 Nicotine dependence, cigarettes, uncomplicated; Z83.3 Family history of diabetes mellitus; Z82.49 Family history of ischemic heart disease and other diseases of the circulatory system; Z79.4 Long term (current) use of insulin; Z79.899 Other long term (current) drug therapy; Z88.6 Allergy status to analgesic agent; Z76.5 Malingerer [conscious simulation]
CPT/HCPCS: 36415; 80048; 80053; 80061; 80307; 81001; 82607; 82728; 82746; 82803; 82962; 83036; 83540; 83550; 83605; 83690; 85025; 85027; 85045; 85610; 85730; 96361; 96374; 96375; 99285; J0360; J1170; J1200; J1630; J1815; J1885; J2405; J3490; J7030; S0164

== ENCOUNTER 2017-10-04 10:34 | Emergency (ER) | payer MEDICAID ==
[2017-10-04 12:29] LABS: APPEARANCE,URINE CLOUDY; BILIRUBIN,URINE NEGATIVE (NEGATIVE); COLOR,URINE YELLOW; GLUCOSE, URINE >=500 mg/dL (NEGATIVE); KETONES,URINE 20 mg/dL (NEGATIVE); LEUKOCYTE ESTERASE,URINE NEGATIVE (NEGATIVE); NITRITE,URINE NEGATIVE (NEGATIVE); PROTEIN,URINE >=500 mg/dL (NEGATIVE); URINE SPECIFIC GRAVITY 1.017; UROBILINOGEN,URINE NEGATIVE mg/dL (<2.0)
[2017-10-04 12:38] LABS: URINE AMPHETAMINES SCREEN NEGATIVE; URINE BARBITURATES SCREEN NEGATIVE; URINE BENZODIAZEPINES SCREEN NEGATIVE; URINE COCAINE SCREEN NEGATIVE; URINE MARIJUANA (THC) SCREEN UNCONFIRMED POSITIVE; URINE METHADONE SCREEN NEGATIVE; URINE PHENCYCLIDINE SCREEN NEGATIVE
--- NOTE | 2017-10-04 12:43 | EKG REPORT ---
SEVERITY:- ABNORMAL ECG - SINUS RHYTHM ABBIE, CONSIDER BIATRIAL ABNORMALITIES PROBABLE LEFT VENTRICULAR HYPERTROPHY : Confirmed by: Alvaro Lema MD 04-Oct-2017 12:42:36
[2017-10-04] MEDS ORDERED: ONDANSETRON HCL INJ/PF 4 MG/2 ML SDV IV ONE (12:53)
[2017-10-04] MEDS ORDERED: HYDROMORPHONE HCL INJ/PF 2 MG/ML AMPULE IV ONE (12:54)
[2017-10-04] MEDS ORDERED: HYDRALAZINE HCL INJ/PF 20 MG/1 ML SDV IV ONE (12:54)
--- NOTE | 2017-10-04 13:03 | ER Document Report ---
ED General - General Chief Complaint: Altered Mental Status Stated Complaint: ALTERED MENTAL STATUS Time Seen by Provider: 10/04/17 12:36 Notes: Patient was picked up by EMS at a local clinic. This was her first visit to that local clinic and the personnel there could not understand what she was saying and thought she might be having a stroke. Her blood pressure was very high. EMS transferred the patient here. Patient says that she missed taking her morning dose of lisinopril and metoprolol for her blood pressure. Patient is currently very tearful and complaining of severe pain in her left lower abdomen going around into the left flank region it has been there for about 3 days. It is constant and does not go and come. She is also had some vomiting for the past couple of days and diarrhea since last night. She has had this many times before, this is her 11th visit to this ER since July 11, this year. She had a CT scan of her abdomen done here on August 22, about 10 days ago, which showed some punctate calcifications in the region of the pancreas, consistent with prior pancreatitis.. She also had a recent CT scan of her head that was normal. Patient think she has had a low-grade fever of 99. Denies any UTI symptoms. Has had a headache for 3 days. Patient says that she is an insulin-dependent diabetic as well as antihypertensive on metoprolol and lisinopril and has been taking her medications. She has had several C-sections and a partial hysterectomy. TRAVEL OUTSIDE OF THE [place] IN LAST 30 DAYS: No - Related Data Allergies/Adverse Reactions: hydrocodone [From [place]] Allergy (Verified 10/04/17 10:56) morphine Allergy (Verified 10/04/17 10:56) Past Medical History - Social History Smoking Status: Current Every Day Smoker Family History: Reviewed & Not Pertinent, DM, Hypertension - Past Medical History Cardiac Medical History: Reports: Hx Hypercholesterolemia, Hx Hypertension Endocrine Medical History: Reports: Hx Diabetes Mellitus Type 1, Hx Diabetes Mellitus Type 2 GI Medical History: Reports: Hx Cirrhosis Past Surgical History: Reports: Hx Section - x3, Hx Hysterectomy Review of Systems - Review of Systems Notes: REVIEW OF SYSTEMS: CONSTITUTIONAL : Denies fever. EENT: Denies eye, ear, nose or mouth or throat pain or other symptoms. CARDIOVASCULAR: Denies chest pain. RESPIRATORY: Denies cough, chest congestion, or shortness of breath. GASTROINTESTINAL: See HPI. GENITOURINARY: Denies difficulty or painful urinating, urinary frequency, blood in urine. MUSCULOSKELETAL: Denies back or neck pain. Denies joint pain or swelling. SKIN: Denies rash or skin lesions. NEUROLOGICAL: Denies LOC or altered mental status. Has a moderate headache for 3 days. Denies sensory loss or motor deficits. ALL OTHER SYSTEMS REVIEWED AND NEGATIVE. Physical Exam - Vital signs Vitals: Pulse Resp BP Pulse Ox 100 20 211/108 H 100 10/04/17 10:38 10/04/17 10:38 10/04/17 10:38 10/04/17 10:38 Interpretation: Hypertensive - Notes Notes: PHYSICAL EXAMINATION: GENERAL: Tearful, at times sobbing, throughout my entire interview. HEAD: Atraumatic, normocephalic. EYES: Pupils equal round and reactive to light, extraocular movements intact. ENT: oropharynx clear without exudates. Moist mucous membranes. NECK: Normal range of motion, supple. LUNGS: Breath sounds clear and equal bilaterally. HEART: Regular rate and rhythm without murmurs. ABDOMEN: Soft, but mild tenderness over the left flank. No right-sided abdominal tenderness at all. No guarding or rebound. No masses. No bruits heard. BACK: No tenderness throughout entire back. EXTREMITIES: Normal range of motion without pain. NEUROLOGICAL: Tearful throughout the entire interview. Appears to be in pain when she tries to stand up and walk. Normal sensory, motor, and reflex exams. Awake, alert, and oriented x3. PSYCH: Seems to be depressed. SKIN: Warm, dry, no rashes. Course - Re-evaluation Re-evalutation: 10/04/17 19:38 Patient got some significant improvement in her headache as well as abdominal pains from the 1 mg of Dilaudid IV. She was able to sleep it spells. Her blood pressure came down to the systolic in the 150s and 160s. I feel that the patient is able to go home. She had a CT scan done here that was essentially normal just about 10 days ago. She had some small calcifications in the region of the pancreas where the patient has had previous pancreatitis. Patient says she no longer drinks alcohol. Her lab work here today is all essentially unremarkable and normal. I discharged patient home with prescription for some Phenergan tablets and Ultram pills.. Patient was hesitant to leave because she was concerned that she may end up back your right away. I told her she had already been here 11 times in the past 2 months so it would not be surprising if she did end up back here for further evaluation. Encouraged her to do so if she had concerns. She had a CT of her head done here today and it was normal. - Vital Signs Vital signs: Temp Pulse Resp BP Pulse Ox 100 12 193/109 H 100 10/04/17 10:38 10/04/17 17:45 10/04/17 17:45 10/04/17 17:45 - Laboratory Result Diagrams: 10/04/17 13:37 10/04/17 13:37 Laboratory results interpreted by me: 10/04/17 10/04/17 10/04/17 11:50 13:37 13:37 Hgb 11.4 L Hct 34.4 L RDW 15.1 H Seg Neutrophils % 85.0 H Lymphocytes % 12.3 L Monocytes % 1.7 L BUN 22 H Glucose 275 H Alkaline Phosphatase 145 H Total Protein 8.5 H Lipase 330.5 H Urine Protein >=500 H Urine Glucose (UA) >=500 H Urine Ketones 20 H Urine Blood SMALL H - Diagnostic Test Radiology reviewed: Image reviewed, Reports reviewed - CT of the head is normal. Discharge - Discharge Clinical Impression: Acute abdominal pain in left flank, Headache, Vomiting and diarrhea Condition: Stable Disposition: HOME, SELF-CARE Additional Instructions: ABDOMINAL PAIN: There are many causes of abdominal pain. Pain can mean a serious problem requiring surgery (such as appendicitis). It can also be an innocent problem that goes away on its own (such as a viral infection). Often, time must pass to determine the cause of pain. The physician does not feel that hospitalization is necessary, at present. Things may change within the next 24 hours. Call the doctor or come back for re- examination if any problems occur, such as: (1) Pain that becomes more severe, steady, or becomes concentrated in one specific area. Also, pain that is more severe with movement or coughing. (2) Vomiting that persists or becomes more frequent. (3) Blood in the vomitus, urine, or bowel movements. Blood in the stool may have a tarry or black appearance. (4) Shaking chills or fever greater than 100 degrees F. (5) The abdomen becomes more distended or swollen. (6) Bowel movements cease. (7) Failure to improve as expected. HIGH BLOOD PRESSURE REQUIRING TREATMENT: Your blood pressure is high. This is called "hypertension." Today's reading was 227/147 (normal is less than 140/90). Your history and exam suggest that this is not a temporary problem. You need treatment of your blood pressure. If left untreated, high blood pressure greatly increases your risk of heart attack and stroke. Please don't ignore this problem. If you have blood pressure medicine but aren't using it regularly, start taking it again. Some simple things you can do to help are: Get some aerobic exercise for at least 20 minutes on a daily basis. (See your doctor before beginning any new exercise program.) Eat a low-fat diet. Lose excess weight. Avoid salty foods and avoid adding salt to any of the foods you eat. Avoid diet pills, decongestants, "energizing" herbs, and other medicines that elevate blood pressure. There are many different medicines that treat blood pressure. If your medication causes unpleasant side effects, call your doctor. There are others you can try. Treating hypertension is a life-long investment in your health. Your blood pressure was very high, but came down acceptably to a level we can discharge her home. Take your blood pressure medications when you get home. Take your lisinopril in 1 of your metoprolol dose when you get home and then at bedtime tonight, take another of your metoprolol's. Resume taking everything tomorrow. ANTINAUSEA MEDICATION: You have been given a medication to suppress nausea and vomiting. This type of medication can be given as a shot, pill, or suppository. It will usually last for many hours. Pills and shots usually last six to eight hours, suppositories last about 12 hours. For the typical illness, only one or two doses of the medication may be necessary. Mild lightheadedness may occur. This type of medicine can cause drowsiness. Do not drive or operate dangerous machinery while under its influence. Do not mix with alcohol. See your doctor at once if you have muscle spasms or tightness, or uncontrollable motions (particularly of the neck, mouth, or jaw). Persistent vomiting or severe lightheadedness should also be evaluated by the physician. Ultram Ultram is an excellent drug for pain relief. It is not a narcotic, but it works in a similar way. Ultram can take up to two hours for full effect. Although not addicting, Ultram is best avoided in patients with a history of drug abuse. Ultram should not be used with alcohol, sleeping pills, or narcotics. If you're prone to seizures, Ultram can make you more likely to have a seizure. Ultram can be hazardous when combined with MAO-inhibitor antidepressants (such as Nardil or Parnate). Be sure your doctor is aware of all medicines you are taking. Persons with severe liver or kidney disease should increase the time between doses of Ultram. Discuss this with your doctor if you're uncertain. Side effects of Ultram can include dizziness, nausea, constipation, sleepiness, and itching. (These side effects are also seen with narcotic pain medicines.) Please call your doctor if you have other disturbing effects. FOLLOW-UP CARE: If you have been referred to a physician for follow-up care, call the physician s office for an appointment as you were instructed or within the next two days. If you experience worsening or a significant change in your symptoms, notify the physician immediately or return to the Emergency Department at any time for re-evaluation. Prescriptions: Promethazine HCl [Phenergan 25 mg Tablet] 1 - 2 tab PO Q6H PRN #15 tablet PRN Reason: Tramadol HCl 50 mg PO QIDP PRN #15 tablet PRN Reason:
--- NOTE | 2017-10-04 13:28 | RADIOLOGY REPORT (SQ) ---
EXAM DESCRIPTION: CT HEAD WITHOUT COMPLETED DATE/TIME: 10/04/2017 1:13 pm REASON FOR STUDY: Headache and severe hypertension COMPARISON: 08/27/2017 CT brain TECHNIQUE: Axial images acquired through the brain without intravenous contrast. Images reviewed wi th bone, brain and subdural windows. Additional sagittal and coronal reconstructions were generated. Images stored on PACS. All CT scanners at this facility use dose modulation, iterative reconstruction, and/or weight based d osing when appropriate to reduce radiation dose to as low as reasonably achievable (ALARA). [facility]: Dose Right [facility]: CareDose [facility]: Dose Right [facility]: Teradose 4D [facility]: [employer] RADIATION DOSE: CT Rad equipment meets quality standard of care and radiation dose reduction techniq ues were employed. CTDIvol: 53.2 mGy. DLP: 1044 mGy-cm. mGy. LIMITATIONS: None. FINDINGS: VENTRICLES: Normal size and contour. CEREBRUM: No masses. No hemorrhage. No midline shift. No evidence for acute infarction. Normal gra y/white matter differentiation. No areas of low density in the white matter. CEREBELLUM: No masses. No hemorrhage. No alteration of density. No evidence for acute infarction. EXTRAAXIAL SPACES: No fluid collections. No masses. ORBITS AND GLOBE: No intra- or extraconal masses. Normal contour of globe without masses. CALVARIUM: No fracture. PARANASAL SINUSES: No fluid or mucosal thickening. SOFT TISSUES: No mass or hematoma. OTHER: No other significant finding. IMPRESSION: NORMAL BRAIN CT WITHOUT CONTRAST. EVIDENCE OF ACUTE STROKE: NO. COMMENT: Quality ID # [id number]: Final reports with documentation of one or more dose reduction techniques (e.g., Automated exposure control, adjustment of the mA and/or kV according to patient size, use of iterative reconstruction technique) TECHNICAL DOCUMENTATION: JOB ID: [id number] [employer]- All Rights Reserved Reading location - IP/workstation name: [email or web address]-[email or web address]
[2017-10-04 13:50] LABS: ABSOLUTE BASOPHILS # (AUTO) 0.1 10^3/uL (0.0-0.2); ABSOLUTE LYMPHOCYTES (AUTO) 1.1 10^3/uL (0.5-4.7); ABSOLUTE MONOCYTES (AUTO) 0.2 10^3/uL (0.1-1.4); ABSOLUTE NEUT (AUTO) 7.6 10^3/uL (1.7-8.2); BASOPHILS % (AUTO) 0.9 % (0-2); EOSINOPHILS % (AUTO) 0.1 % (0-6); HEMATOCRIT 34.4 % (36.0-47.0); HEMOGLOBIN 11.4 g/dL (12.0-15.5); LYMPHOCYTES % (AUTO) 12.3 % (13-45); MEAN CORPUSCULAR HEMOGLOBIN 28.7 pg (27.0-33.4); MEAN CORPUSCULAR HGB CONC 33.2 g/dL (32.0-36.0); MEAN CORPUSCULAR VOLUME 86 fl (80-97); MONOCYTES % (AUTO) 1.7 % (3-13); PLATELET COUNT 362 10^3/uL (150-450); RED BLOOD COUNT 3.99 10^6/uL (3.72-5.28); RED CELL DISTRIBUTION WIDTH 15.1 % (11.5-14.0); TOTAL CELLS COUNTED % (AUTO) 100 %
[2017-10-04 14:09] LABS: ALANINE AMINOTRANSFERASE 25 U/L (9-52); ALBUMIN 4.6 g/dL (3.5-5.0); ALKALINE PHOSPHATASE 145 U/L (38-126); ANION GAP 15 (5-19); ASPARTATE AMINO TRANSFERASE 26 U/L (14-36); BILIRUBIN,DIRECT 0.4 mg/dL (0.0-0.4); BILIRUBIN,TOTAL 0.6 mg/dL (0.2-1.3); BLOOD UREA NITROGEN 22 mg/dL (7-20); CALCIUM 10.1 mg/dL (8.4-10.2); CARBON DIOXIDE 24 mmol/L (22-30); CHLORIDE 100 mmol/L (98-107); GLUCOSE 275 mg/dL (75-110); LIPASE 330.5 U/L (23-300); POTASSIUM 4.3 mmol/L (3.6-5.0); SODIUM 138.9 mmol/L (137-145); TOTAL PROTEIN 8.5 g/dL (6.3-8.2)
[2017-10-04 14:12] LABS: ALCOHOL < 10 mg/dL (NONE DETECTED)
[2017-10-04] MEDS ORDERED: CEFTRIAXONE INJ 1000 MG VIAL IV ONE (15:40)
[2017-10-04] MEDS ORDERED: TRAMADOL HCL 50 MG TABLET PO ONE (15:48)
[2017-10-04] MEDS ORDERED: PROMETHAZINE HCL 25 MG TABLET PO ONE (15:48)
[2017-10-04 17:52] VITALS: BP 193/109
[2017-10-04] MEDS ORDERED: CLONIDINE HCL 0.2 MG TABLET PO ONE (17:56)
== END 2017-10-04 18:38 | disposition home or self-care (01) ==
LOC: ER 10:34
DX: R10.9 Unspecified abdominal pain (principal); R10.32 Left lower quadrant pain; R51 Headache; R11.10 Vomiting, unspecified; R19.7 Diarrhea, unspecified; I10 Essential (primary) hypertension; T46.4X6A Underdosing of angiotensin-converting-enzyme inhibitors, initial encounter; T44.7X6A Underdosing of beta-adrenoreceptor antagonists, initial encounter; Z91.128 Patient's intentional underdosing of medication regimen for other reason; Z91.14 Patient's other noncompliance with medication regimen; Z79.899 Other long term (current) drug therapy; E11.9 Type 2 diabetes mellitus without complications; Z79.4 Long term (current) use of insulin; Z90.710 Acquired absence of both cervix and uterus; Z87.19 Personal history of other diseases of the digestive system
CPT/HCPCS: 93005; 36415; 87086; 80307 ×2; 83690; 83735; 85025; 80053; 81001; 70450; 93010; J3490 ×2; J0360; J1170; J0696; J2405

== ENCOUNTER 2017-10-15 16:59 | Inpatient (IN) | payer MEDICAID ==
[2017-10-15] MEDS ORDERED: RINGERS SOLUTION,LACTATED 1,000 ML IV ONE (17:36)
[2017-10-15] MEDS ORDERED: ONDANSETRON HCL INJ/PF 4 MG/2 ML SDV IV ONE (17:36)
[2017-10-15] MEDS ORDERED: HYDROMORPHONE HCL INJ/PF 2 MG/ML AMPULE IV ONE ×2 (17:36→19:40)
--- NOTE | 2017-10-15 17:39 | ER Document Report ---
ED General - General Stated Complaint: ALTERED MENTAL STATUS Time Seen by Provider: 10/15/17 17:16 Notes: Patient is a 37-year-old female with diabetes mellitus that presents to the emergency department for chief complaint of epigastric abdominal pain and nausea. Patient has a history of pancreatitis, and reports that her symptoms started this morning with severe epigastric abdominal pain that seem to worsen throughout the day, she had nausea but no vomiting. Denies having any diarrhea. She currently rates her pain as a 10 out of 10, as a sharp stabbing sensation in the midepigastrium. Denies having any fevers, chills, night sweats , chest pain, shortness of breath or difficulty breathing. Past Medical History: Diabetes mellitus, history of pancreatitis Past Surgical History: 3 Social History: Admits to smoking cigarettes daily, denies alcohol or drug use Family History: Reviewed and noncontributory for presenting illness Allergies: Reviewed, see documented allergy list. REVIEW OF SYSTEMS: Unless otherwise stated in this report the patient's positive and negative responses for review of systems for constitutional, eyes, ENT, cardiovascular, respiratory, gastrointestinal, neurological, genitourinary, musculoskeletal, and integumentary systems and related systems to the presenting problem are either as stated in the HPI or were not pertinent or were negative for the symptoms and/or complaints related to the presenting medical problem. PHYSICAL EXAMINATION: Vital signs reviewed, nursing noted reviewed. GENERAL: Well-appearing, well-nourished and appears uncomfortable, tearful on exam HEAD: Atraumatic, normocephalic. EYES: Eyes appear normal, extraocular movements intact, sclera anicteric, conjunctiva are normal. ENT: nares patent, oropharynx clear without exudates. Moist mucous membranes. NECK: Normal range of motion, supple without lymphadenopathy LUNGS: Breath sounds clear to auscultation bilaterally and equal. No wheezes rales or rhonchi. HEART: Regular rate and rhythm without murmurs ABDOMEN: Diffuse abdominal tenderness with palpation, worse in the epigastric region soft, normoactive bowel sounds. No rebound, guarding, or rigidity. No masses appreciated. EXTREMITIES: Nontender, good range of motion, no pitting or edema. NEUROLOGICAL: No focal neurological deficits. Moves all extremities spontaneously Motor and sensory grossly intact on exam. PSYCH: Appears uncomfortable, tearful SKIN: Warm, Dry, normal turgor, no rashes or lesions noted on exposed skin TRAVEL OUTSIDE OF THE [place] IN LAST 30 DAYS: No - Related Data Allergies/Adverse Reactions: hydrocodone [From [place]] Allergy (Verified 10/04/17 10:56) morphine Allergy (Verified 10/04/17 10:56) Past Medical History - Social History Smoking Status: Current Every Day Smoker Frequency of alcohol use: None Drug Abuse: None Family History: Reviewed & Not Pertinent, DM, Hypertension - Past Medical History Cardiac Medical History: Reports: Hx Hypercholesterolemia, Hx Hypertension Pulmonary Medical History: Denies: Hx COPD Endocrine Medical History: Reports: Hx Diabetes Mellitus Type 1, Hx Diabetes Mellitus Type 2 Renal/ Medical History: Denies: Hx End Stage Renal Disease, Hx Peritoneal Dialysis GI Medical History: Reports: Hx Cirrhosis Musculoskeletal Medical History: Denies Hx Arthritis Skin Medical History: Denies Hx Eczema, Denies Hx Psoriasis Psychiatric Medical History: Denies: Hx Dementia, Hx Depression Past Surgical History: Reports: Hx Section - x3, Hx Hysterectomy Physical Exam - Vital signs Vitals: Resp Pulse Ox 11 L 100 10/15/17 17:01 10/15/17 17:01 Course - Re-evaluation Re-evalutation: Patient seen and examined vital signs reviewed. Laboratory data and imaging were ordered as appropriate for the patient's presenting symptoms and complaint, with consideration of any critical or life threatening conditions that may be associated with their obtained history and exam as noted above. Patient was treated with IV fluids, Zofran, and Dilaudid Results were reviewed when available and demonstrated elevated lipase, and leukocytosis, concerning for acute pancreatitis The patient was re-evaluated and was still having pain, therefore additional Dilaudid was ordered for the patient, she did have an episode of emesis while I was reevaluating her as well. Evaluation was most consistent with acute on chronic pancreatitis Results were discussed with the patient at this point after careful consideration I feel that that patient should be admitted to the hospital. This was discussed with the patient that it is in the best interest for their care to be admitted for further evaluation and management. Patient agreed with this plan of care. A call was placed to the admitted physician, Dr. Hendricks who graciously accepted the patient onto their service. *Note is created using voice recognition software and may contain spelling, syntax or grammatical errors. Laboratory 0910/15/17 10/15/17 17:20 17:20 17:20 WBC 11.2 H RBC 3.25 L Hgb 9.5 L Hct 28.7 L MCV 88 MCH 29.0 MCHC 33.0 RDW 15.8 H Plt Count 432 Seg Neutrophils % 61.1 Lymphocytes % 30.0 Monocytes % 8.2 Eosinophils % 0.4 Basophils % 0.3 Absolute Neutrophils 6.8 Absolute Lymphocytes 3.3 Absolute Monocytes 0.9 Absolute Eosinophils 0.0 Absolute Basophils 0.0 PT 13.1 INR 0.94 VBG pH VBG pCO2 VBG HCO3 VBG Base Excess Sodium 135.2 L Potassium 4.2 Chloride 99 Carbon Dioxide 28 Anion Gap 8 BUN 20 Creatinine 0.94 Est GFR ( Amer) > 60 Est GFR (Non-Af Amer) > 60 Glucose 367 H POC Glucose Lactic Acid Calcium 9.2 Total Bilirubin 0.3 Direct Bilirubin 0.3 Neonat Total Bilirubin Not Reportable Neonat Direct Bilirubin Not Reportable Neonat Indirect Bili Not Reportable AST 30 ALT 26 Alkaline Phosphatase 126 Total Protein 7.2 Albumin 3.8 Lipase 748.0 H Serum HCG, Qual Urine Color Urine Appearance Urine pH Ur Specific Leigh Urine Protein Urine Glucose (UA) Urine Ketones Urine Blood Urine Nitrite Urine Bilirubin Urine Urobilinogen Ur Leukocyte Esterase Urine WBC (Auto) Urine RBC (Auto) Squamous Epi Cells Auto Urine Ascorbic Acid Urine Opiates Screen Urine Methadone Screen Ur Barbiturates Screen Ur Phencyclidine Scrn Ur Amphetamines Screen U Benzodiazepines Scrn Urine Cocaine Screen U Marijuana (THC) Screen 10/15/17 10/15/17 10/15/17 17:20 17:35 17:35 WBC RBC Hgb Hct MCV MCH MCHC RDW Plt Count Seg Neutrophils % Lymphocytes % Monocytes % Eosinophils % Basophils % Absolute Neutrophils Absolute Lymphocytes Absolute Monocytes Absolute Eosinophils Absolute Basophils PT INR VBG pH 7.42 VBG pCO2 46.2 VBG HCO3 29.3 VBG Base Excess 4.1 Sodium Potassium Chloride Carbon Dioxide Anion Gap BUN Creatinine Est GFR ( Amer) Est GFR (Non-Af Amer) Glucose POC Glucose Lactic Acid 1.7 Calcium Total Bilirubin Direct Bilirubin Neonat Total Bilirubin Neonat Direct Bilirubin Neonat Indirect Bili AST ALT Alkaline Phosphatase Total Protein Albumin Lipase Serum HCG, Qual NEGATIVE Urine Color Urine Appearance Urine pH Ur Specific Leigh Urine Protein Urine Glucose (UA) Urine Ketones Urine Blood Urine Nitrite Urine Bilirubin Urine Urobilinogen Ur Leukocyte Esterase Urine WBC (Auto) Urine RBC (Auto) Squamous Epi Cells Auto Urine Ascorbic Acid Urine Opiates Screen Urine Methadone Screen Ur Barbiturates Screen Ur Phencyclidine Scrn Ur Amphetamines Screen U Benzodiazepines Scrn Urine Cocaine Screen U Marijuana (THC) Screen 10/15/17 10/15/17 10/15/17 19:52 19:52 21:40 WBC RBC Hgb Hct MCV MCH MCHC RDW Plt Count Seg Neutrophils % Lymphocytes % Monocytes % Eosinophils % Basophils % Absolute Neutrophils Absolute Lymphocytes Absolute Monocytes Absolute Eosinophils Absolute Basophils PT INR VBG pH VBG pCO2 VBG HCO3 VBG Base Excess Sodium Potassium Chloride Carbon Dioxide Anion Gap BUN Creatinine Est GFR ( Amer) Est GFR (Non-Af Amer) Glucose POC Glucose 177 H Lactic Acid Calcium Total Bilirubin Direct Bilirubin Neonat Total Bilirubin Neonat Direct Bilirubin Neonat Indirect Bili AST ALT Alkaline Phosphatase Total Protein Albumin Lipase Serum HCG, Qual Urine Color STRAW Urine Appearance CLEAR Urine pH 7.0 Ur Specific Leigh 1.012 Urine Protein 100 H Urine Glucose (UA) >=500 H Urine Ketones NEGATIVE Urine Blood NEGATIVE Urine Nitrite NEGATIVE Urine Bilirubin NEGATIVE Urine Urobilinogen NEGATIVE Ur Leukocyte Esterase NEGATIVE Urine WBC (Auto) 1 Urine RBC (Auto) 0 Squamous Epi Cells Auto 4 Urine Ascorbic Acid NEGATIVE Urine Opiates Screen NEGATIVE Urine Methadone Screen NEGATIVE Ur Barbiturates Screen NEGATIVE Ur Phencyclidine Scrn NEGATIVE Ur Amphetamines Screen NEGATIVE U Benzodiazepines Scrn NEGATIVE Urine Cocaine Screen NEGATIVE U Marijuana (THC) Screen UNCONFIRMED POSITIVE - Vital Signs Vital signs: Temp Pulse Resp BP Pulse Ox 97.4 F 82 16 179/100 H 98 10/15/17 21:41 10/15/17 21:41 10/15/17 21:41 10/15/17 21:41 10/15/17 21:41 - Laboratory Result Diagrams: 10/15/17 17:20 10/15/17 17:20 Laboratory results interpreted by me: 10/15/17 10/15/17 10/15/17 17:20 17:20 19:52 WBC 11.2 H RBC 3.25 L Hgb 9.5 L Hct 28.7 L RDW 15.8 H Sodium 135.2 L Glucose 367 H Lipase 748.0 H Urine Protein 100 H Urine Glucose (UA) >=500 H - EKG Interpretation by Me Additional EKG results interpreted by me: 10/15/17 17:40 EKG demonstrates sinus tachycardia with a ventricular rate of 107 bpm, normal axis, QTC 465 ms, no evidence of acute ischemia, no ST changes, this compared with prior EKG from 04/2017, without significant change. Discharge - Discharge Clinical Impression: Acute pancreatitis Qualifiers: Pancreatitis type: other Acute pancreatitis complication: unspecified Qualified Code(s): K85.80 - Other acute pancreatitis without necrosis or infection Leukocytosis Qualifiers: Leukocytosis type: unspecified Qualified Code(s): D72.829 - Elevated white blood cell count, unspecified Abdominal pain Qualifiers: Abdominal location: generalized Qualified Code(s): R10.84 - Generalized abdominal pain Disposition: ADMITTED INPATIENT Admitting Provider: Hospitalist - Dr. Hendricks Unit Admitted: Telemetry
[2017-10-15 17:40] LABS: ABSOLUTE LYMPHOCYTES (AUTO) 3.3 10^3/uL (0.5-4.7); ABSOLUTE MONOCYTES (AUTO) 0.9 10^3/uL (0.1-1.4); ABSOLUTE NEUT (AUTO) 6.8 10^3/uL (1.7-8.2); BASOPHILS % (AUTO) 0.3 % (0-2); EOSINOPHILS % (AUTO) 0.4 % (0-6); HEMATOCRIT 28.7 % (36.0-47.0); HEMOGLOBIN 9.5 g/dL (12.0-15.5); MEAN CORPUSCULAR VOLUME 88 fl (80-97); MONOCYTES % (AUTO) 8.2 % (3-13); PLATELET COUNT 432 10^3/uL (150-450); RED BLOOD COUNT 3.25 10^6/uL (3.72-5.28); RED CELL DISTRIBUTION WIDTH 15.8 % (11.5-14.0); SEGMENTED NEUTROPHILS % (AUTO) 61.1 % (42-78); TOTAL CELLS COUNTED % (AUTO) 100 %; WHITE BLOOD COUNT 11.2 10^3/uL (4.0-10.5)
[2017-10-15 17:50] LABS: INTERNATIONAL RATION (INR) 0.94; PROTHROMBIN TIME 13.1 SEC (11.4-15.4)
[2017-10-15 17:55] LABS: VENOUS BLOOD BASE EXCESS 4.1 mmol/L; VENOUS BLOOD HCO3 29.3 mmol/L (20-32); VENOUS BLOOD PCO2 46.2 mmHg (35-63); VENOUS BLOOD PH 7.42 (7.30-7.42)
[2017-10-15 18:03] LABS: ALANINE AMINOTRANSFERASE 26 U/L (9-52); ALBUMIN 3.8 g/dL (3.5-5.0); ALKALINE PHOSPHATASE 126 U/L (38-126); ANION GAP 8 (5-19); ASPARTATE AMINO TRANSFERASE 30 U/L (14-36); BILIRUBIN,DIRECT 0.3 mg/dL (0.0-0.4); BILIRUBIN,TOTAL 0.3 mg/dL (0.2-1.3); BLOOD UREA NITROGEN 20 mg/dL (7-20); CALCIUM 9.2 mg/dL (8.4-10.2); CARBON DIOXIDE 28 mmol/L (22-30); CHLORIDE 99 mmol/L (98-107); GLUCOSE 367 mg/dL (75-110); POTASSIUM 4.2 mmol/L (3.6-5.0); SODIUM 135.2 mmol/L (137-145); TOTAL PROTEIN 7.2 g/dL (6.3-8.2)
[2017-10-15 20:06] LABS: APPEARANCE,URINE CLEAR; BILIRUBIN,URINE NEGATIVE (NEGATIVE); COLOR,URINE STRAW; GLUCOSE, URINE >=500 mg/dL (NEGATIVE); KETONES,URINE NEGATIVE (NEGATIVE); LEUKOCYTE ESTERASE,URINE NEGATIVE (NEGATIVE); NITRITE,URINE NEGATIVE (NEGATIVE); PROTEIN,URINE 100 mg/dL (NEGATIVE); URINE SPECIFIC GRAVITY 1.012; UROBILINOGEN,URINE NEGATIVE mg/dL (<2.0)
[2017-10-15 20:20] LABS: URINE AMPHETAMINES SCREEN NEGATIVE; URINE BARBITURATES SCREEN NEGATIVE; URINE BENZODIAZEPINES SCREEN NEGATIVE; URINE COCAINE SCREEN NEGATIVE; URINE MARIJUANA (THC) SCREEN UNCONFIRMED POSITIVE; URINE METHADONE SCREEN NEGATIVE; URINE PHENCYCLIDINE SCREEN NEGATIVE
[2017-10-15] MEDS ORDERED: METOCLOPRAMIDE HCL INJ/PF 10 MG/2 ML SDV IV ONE (20:20)
[2017-10-15] MEDS ORDERED: DIPHENHYDRAMINE HCL 50 MG/ML VIAL IV ONE (21:09)
[2017-10-15] MEDS ORDERED: LABETALOL HCL INJ 20 MG/4 ML DISP.SYRIN IV ONE (21:10)
--- NOTE | 2017-10-15 21:23 | EKG REPORT ---
SEVERITY:- ABNORMAL ECG - SINUS TACHYCARDIA PROBABLE LEFT ATRIAL ABNORMALITY LEFT VENTRICULAR HYPERTROPHY : Confirmed by: Alvaro Lema MD 15-Oct-2017 21:23:17
[2017-10-15] MEDS ORDERED: GLUCAGON,HUMAN RECOMB 1 MG INJ SUBCUT PRN (21:41)
[2017-10-15] MEDS ORDERED: DEXTROSE 50%-WATER 25 GM/50 ML DISP.SYRIN IV PRN ×4 (21:41→21:49)
[2017-10-15] MEDS ORDERED: PROMETHAZINE HCL INJ 25 MG/1 ML VIAL IV PRN (21:41)
[2017-10-15] MEDS ORDERED: MAG HYDROX/AL HYDROX/SIMETH SUSP 30 ML UDCUP PO PRN (21:41)
[2017-10-15] MEDS ORDERED: DEXTROSE 40% GEL 15 GM TUBE PO PRN ×4 (21:41→21:49)
[2017-10-15] MEDS ORDERED: LABETALOL HCL INJ 20 MG/4 ML DISP.SYRIN IV PRN (21:47)
[2017-10-15] MEDS ORDERED: GLUCAGON,HUMAN RECOMB 1 MG INJ IM PRN (21:49)
--- NOTE | 2017-10-15 22:27 | PDOC H&P ---
History of Present Illness Admission Date/PCP: 10/15/17 19:58 Patient complains of: Abdominal pain History of Present Illness: JJ HOFFMAN is a 37 year old female Who comes to our emergency department complaining of abdominal pain that he started today, pain is in the epigastric area, 10/10 intensity, radiated to the back, associated with persistent nausea and nonbloody vomiting. Denies fever, chills patient has on and off chest pain and shortness of breath which is not new. Denies any diarrhea or urinary symptoms. In the emergency department lipase was elevated 748 Patient has history of chronic pancreatitis He was transfer from our facility to tertiary facility for encephalopathy, but the patient sign out AMA the next day. She is diabetic and she has history of recent admission with DKA and history of DKA with, in the past in [place]. Is mention admission for altered mental status but apparently patient has chronic memory problems and is at her baseline. Past Medical History Cardiac Medical History: Reports: Hyperlipidema, Hypertension Pulmonary Medical History: Denies: Chronic Obstructive Pulmonary Disease (COPD) Endocrine Medical History: Reports: Diabetes Mellitus Type 1, Diabetes Mellitus Type 2 Renal/ Medical History: Denies: End Stage Renal Disease GI Medical History: Reports: Cirrhosis Musculoskeltal Medical History: Denies: Arthritis Skin Medical History: Denies: Eczema, Psoriasis Psychiatric Medical History: Denies: Dementia, Depression Hematology: Denies: Anemia Past Surgical History Past Surgical History: Reports: Section - x3, Hysterectomy Social History Smoking Status: Current Every Day Smoker Frequency of Alcohol Use: Rare Hx Recreational Drug Use: Yes Drugs: Marijuana Hx Prescription Drug Abuse: Yes Family History Family History: Reviewed & Not Pertinent, DM, Hypertension Parental Family History Reviewed: No Children Family History Reviewed: NA Sibling(s) Family History Reviewed.: NA Medication/Allergy Home Medications: Insulin Aspart [Novolog Flexpen] 10 unit SQ TID 10/05/17 Insulin Glargine,Hum.rec.anlog [Lantus Solostar] 33 unit SQ QHS 10/05/17 Lisinopril [Prinivil 40 mg Tablet] 40 mg PO DAILY 10/05/17 Metoprolol Tartrate [Lopressor 25 mg Tablet] 25 mg PO Q12 10/05/17 Allergies/Adverse Reactions: hydrocodone [From [place]] Allergy (Verified 10/04/17 10:56) morphine Allergy (Verified 10/04/17 10:56) Review of Systems Review of Systems: As outlined in the HPI, all others negative Physical Exam Vital Signs: Temp Pulse Resp BP Pulse Ox 97.4 F 82 16 179/100 H 98 10/15/17 21:41 10/15/17 21:41 10/15/17 21:41 10/15/17 21:41 10/15/17 21:41 Additional comments: General appearance: Well-developed, well-nourished, alert and cooperative, and appears to be in acute distress secondary to abdominal pain Head: Normocephalic Eyes: PEERL, EOMI, vision is grossly intact. Ears: External auditory canal and tympanic membranes clear, hearing grossly intact. Nose: No nasal discharge. Throat: Oral cavity and pharynx normal. No inflammation, swelling, exudate or lesions. Neck: Neck supple, nontender without lymphadenopathy, masses or thyromegaly. Cardiac: Normal S1 and S2. No S3, S4 or murmurs. Rhythm is regular. There is no peripheral edema, cyanosis or pallor. Extremities are warm and well perfused. Capillary refill is less than 2 seconds. No carotid bruits. Lungs: Clear to auscultation and percussion without rales, rhonchi, wheezing or diminished breath sounds. Not using accessory muscles. Abdomen: Positive bowel sounds. Soft. Nondistended, as to palpation diffusely more in the epigastric area and right upper quadrant. No guarding or rebound. No masses. No hepatosplenomegaly Extremities: No significant deformity or joint abnormality. No edema. Peripheral pulses intact. No varicosities. Neurological: Cranial nerves II through XII grossly intact. Strength and sensation symmetric and intact throughout. Reflexes 2+ throughout. Skin: Skin normal color, texture and turgor with no lesions or eruptions, warm and dry. Psychiatric: The mental examination revealed the patient was oriented to person , place, and time, thought that the president is Obama. The patient was able to demonstrate good judgment on recent, without hallucinations. Results Laboratory Results: 10/15/17 10/15/17 10/15/17 17:20 17:20 17:20 WBC 11.2 H RBC 3.25 L Hgb 9.5 L Hct 28.7 L MCV 88 MCH 29.0 MCHC 33.0 RDW 15.8 H Plt Count 432 Seg Neutrophils % 61.1 Lymphocytes % 30.0 Monocytes % 8.2 Eosinophils % 0.4 Basophils % 0.3 Absolute Neutrophils 6.8 Absolute Lymphocytes 3.3 Absolute Monocytes 0.9 Absolute Basophils 0.0 PT 13.1 INR 0.94 VBG pH VBG pCO2 VBG HCO3 VBG Base Excess Sodium 135.2 L Potassium 4.2 Chloride 99 Carbon Dioxide 28 Anion Gap 8 BUN 20 Creatinine 0.94 Est GFR ( Amer) > 60 Est GFR (Non-Af Amer) > 60 Glucose 367 H Lactic Acid Calcium 9.2 Total Bilirubin 0.3 Direct Bilirubin 0.3 Neonat Indirect Bili Not Reportable AST 30 ALT 26 Alkaline Phosphatase 126 Total Protein 7.2 Albumin 3.8 Lipase 748.0 H Serum HCG, Qual Urine Color Urine Appearance Urine pH Ur Specific Evart Urine Protein Urine Glucose (UA) Urine Ketones Urine Blood Urine Nitrite Urine Bilirubin Urine Urobilinogen Ur Leukocyte Esterase Urine WBC (Auto) Urine RBC (Auto) Squamous Epi Cells Auto Urine Ascorbic Acid Urine Opiates Screen Urine Methadone Screen Ur Barbiturates Screen Ur Phencyclidine Scrn Ur Amphetamines Screen U Benzodiazepines Scrn Urine Cocaine Screen U Marijuana (THC) Screen 10/15/17 10/15/17 10/15/17 17:20 17:35 17:35 WBC RBC Hgb Hct MCV MCH MCHC RDW Plt Count Seg Neutrophils % Lymphocytes % Monocytes % Eosinophils % Basophils % Absolute Neutrophils Absolute Lymphocytes Absolute Monocytes Absolute Basophils PT INR VBG pH 7.42 VBG pCO2 46.2 VBG HCO3 29.3 VBG Base Excess 4.1 Sodium Potassium Chloride Carbon Dioxide Anion Gap BUN Creatinine Est GFR ( Amer) Est GFR (Non-Af Amer) Glucose Lactic Acid 1.7 Calcium Total Bilirubin Direct Bilirubin Neonat Indirect Bili AST ALT Alkaline Phosphatase Total Protein Albumin Lipase Serum HCG, Qual NEGATIVE Urine Color Urine Appearance Urine pH Ur Specific Evart Urine Protein Urine Glucose (UA) Urine Ketones Urine Blood Urine Nitrite Urine Bilirubin Urine Urobilinogen Ur Leukocyte Esterase Urine WBC (Auto) Urine RBC (Auto) Squamous Epi Cells Auto Urine Ascorbic Acid Urine Opiates Screen Urine Methadone Screen Ur Barbiturates Screen Ur Phencyclidine Scrn Ur Amphetamines Screen U Benzodiazepines Scrn Urine Cocaine Screen U Marijuana (THC) Screen 10/15/17 10/15/17 19:52 19:52 WBC RBC Hgb Hct MCV MCH MCHC RDW Plt Count Seg Neutrophils % Lymphocytes % Monocytes % Eosinophils % Basophils % Absolute Neutrophils Absolute Lymphocytes Absolute Monocytes Absolute Basophils PT INR VBG pH VBG pCO2 VBG HCO3 VBG Base Excess Sodium Potassium Chloride Carbon Dioxide Anion Gap BUN Creatinine Est GFR ( Amer) Est GFR (Non-Af Amer) Glucose Lactic Acid Calcium Total Bilirubin Direct Bilirubin Neonat Indirect Bili AST ALT Alkaline Phosphatase Total Protein Albumin Lipase Serum HCG, Qual Urine Color STRAW Urine Appearance CLEAR Urine pH 7.0 Ur Specific [place] 1.012 Urine Protein 100 H Urine Glucose (UA) >=500 H Urine Ketones NEGATIVE Urine Blood NEGATIVE Urine Nitrite NEGATIVE Urine Bilirubin NEGATIVE Urine Urobilinogen NEGATIVE Ur Leukocyte Esterase NEGATIVE Urine WBC (Auto) 1 Urine RBC (Auto) 0 Squamous Epi Cells Auto 4 Urine Ascorbic Acid NEGATIVE Urine Opiates Screen NEGATIVE Urine Methadone Screen NEGATIVE Ur Barbiturates Screen NEGATIVE Ur Phencyclidine Scrn NEGATIVE Ur Amphetamines Screen NEGATIVE U Benzodiazepines Scrn NEGATIVE Urine Cocaine Screen NEGATIVE U Marijuana (THC) Screen UNCONFIRMED POSITIVE Assessment & Plan - Diagnosis (1) Acute on chronic pancreatitis Is this a current diagnosis for this admission?: Yes Plan: Patient comes with acute abdominal pain that started today, she has history of chronic pancreatitis. Her lipase was 748. We will keep the patient in the hospital for aggressive IV fluid hydration. IV antiemetics and pain medication as needed. Will repeat lipase in the morning. Secondary to her history of alcohol abuse. (2) Uncontrolled type 2 diabetes mellitus Is this a current diagnosis for this admission?: Yes Plan: Blood sugar 367, patient has likely noncompliance with her home medications. I will place her on Accu-Cheks every 4 hours with insulin lispro sliding scale and hypoglycemia protocol. Patient is not on DKA. IV fluids hydration. (3) Hypertensive urgency Is this a current diagnosis for this admission?: Yes Plan: Blood pressure 200s over 100, patient will be on labetalol IV as needed and we will resume her home antihypertensive medications. (4) Encephalopathy chronic Is this a current diagnosis for this admission?: Yes Plan: Patient has memory problems with probably chronic encephalopathy, she seems to be at her baseline mental status and her daughter who is at the bedside confirms that. Apparently when she had diabetic coma, months ago in [place] they have been told that she will have memory problems. He was recently discharged to a tertiary facility for further workup but she signed out AMA. (5) History of alcoholism Is this a current diagnosis for this admission?: Yes (6) Noncompliance Is this a current diagnosis for this admission?: Yes Plan: Compliance with medications. Patient uses marijuana on and off, last 2 days ago. - Time Time Spent: 30 to 50 Minutes - Inpatient Certification Based on my medical assessment, after consideration of the patient's comorbidities, presenting symptoms, or acuity I expect that the services needed warrant INPATIENT care.: Yes I certify that my determination is in accordance with my understanding of Medicare's requirements for reasonable and necessary INPATIENT services [42 CFR 412.3e].: Yes Medical Necessity: Risk of Complication if Not Cared For in Hospital
[2017-10-15] MEDS: METOCLOPRAMIDE HCL INJ/PF 10 MG/2 ML SDV IV PRN (23:44)
[2017-10-15] MEDS: NORMAL SALINE 1000 ML 1,000 ML IV PRN (23:44)
[2017-10-15] MEDS: HYDROMORPHONE HCL INJ/PF 2 MG/ML AMPULE IV PRN (23:45)
[2017-10-16] MEDS: NORMAL SALINE 1000 ML 1,000 ML IV PRN ×3 (04:29→23:00)
[2017-10-16] MEDS: METOPROLOL TARTRATE PF/INJ 5 MG/5 ML SDV IV PRN ×2 (04:31→20:34)
[2017-10-16] MEDS: HYDROMORPHONE HCL INJ/PF 2 MG/ML AMPULE IV PRN ×5 (04:32→23:22)
[2017-10-16] MEDS ORDERED: HYDRALAZINE HCL INJ/PF 20 MG/1 ML SDV ONE (09:15)
[2017-10-16] MEDS: ENOXAPARIN SODIUM INJ 40 MG/0.4 ML DISP.SYRIN SUBCUT SCH (09:20)
[2017-10-16] MEDS: PANTOPRAZOLE SODIUM 40 MG VIAL IV SCH (09:20)
[2017-10-16] MEDS ORDERED: HYDRALAZINE HCL INJ/PF 20 MG/1 ML SDV IV ONE (09:30)
[2017-10-16] MEDS: METOCLOPRAMIDE HCL INJ/PF 10 MG/2 ML SDV IV PRN (09:31)
[2017-10-16] MEDS: DIPHENHYDRAMINE HCL 50 MG/ML VIAL IV PRN ×4 (09:31→23:22)
[2017-10-16 12:31] LABS: ABSOLUTE EOSINOPHILS # (AUTO) 0.1 10^3/uL (0.0-0.6); ABSOLUTE LYMPHOCYTES (AUTO) 3.5 10^3/uL (0.5-4.7); ABSOLUTE MONOCYTES (AUTO) 0.9 10^3/uL (0.1-1.4); ABSOLUTE NEUT (AUTO) 4.2 10^3/uL (1.7-8.2); BASOPHILS % (AUTO) 0.6 % (0-2); EOSINOPHILS % (AUTO) 0.8 % (0-6); MEAN CORPUSCULAR HEMOGLOBIN 29.1 pg (27.0-33.4); MEAN CORPUSCULAR HGB CONC 33.3 g/dL (32.0-36.0); MEAN CORPUSCULAR VOLUME 88 fl (80-97); MONOCYTES % (AUTO) 10.6 % (3-13); PLATELET COUNT 437 10^3/uL (150-450); RED BLOOD COUNT 3.09 10^6/uL (3.72-5.28); TOTAL CELLS COUNTED % (AUTO) 100 %; WHITE BLOOD COUNT 8.7 10^3/uL (4.0-10.5)
[2017-10-16 12:42] LABS: INTERNATIONAL RATION (INR) 0.95; PROTHROMBIN TIME 13.2 SEC (11.4-15.4)
[2017-10-16 12:50] LABS: ALANINE AMINOTRANSFERASE 26 U/L (9-52); ALBUMIN 3.6 g/dL (3.5-5.0); ALKALINE PHOSPHATASE 115 U/L (38-126); ANION GAP 8 (5-19); ASPARTATE AMINO TRANSFERASE 21 U/L (14-36); BILIRUBIN,DIRECT 0.3 mg/dL (0.0-0.4); BILIRUBIN,TOTAL 0.3 mg/dL (0.2-1.3); BLOOD UREA NITROGEN 13 mg/dL (7-20); CALCIUM 9.4 mg/dL (8.4-10.2); CARBON DIOXIDE 25 mmol/L (22-30); CHLORIDE 104 mmol/L (98-107); GLUCOSE 198 mg/dL (75-110); SODIUM 137.4 mmol/L (137-145); TOTAL PROTEIN 6.7 g/dL (6.3-8.2)
--- NOTE | 2017-10-16 15:13 | PDOC PROGRESS REPORT ---
Subjective Progress Note for:: 10/16/17 Subjective:: The patient continues to complain of severe abdominal pain. She also states that she is hungry and wants to eat. Reason For Visit: ACUTE PANCREATITIS Physical Exam Vital Signs: Temp Pulse Resp BP Pulse Ox 98.3 F 98 14 144/88 H 95 10/16/17 11:21 10/16/17 11:21 10/16/17 11:21 10/16/17 11:21 10/16/17 11:21 Intake & Output 10/15/17 10/16/17 10/17/17 06:59 06:59 06:59 Intake Total 713 Balance 713 General appearance: PRESENT: no acute distress, cooperative Respiratory exam: PRESENT: other - No increased work of breathing.. ABSENT: rales, rhonchi, wheezes Cardiovascular exam: PRESENT: other - No lateral PMI. No thrills. Pulses: PRESENT: normal dorsalis pedis pul GI/Abdominal exam: PRESENT: hypoactive bowel sounds, normal bowel sounds, soft, tenderness - Positive for tenderness and guarding with palpation of the epigastrum.. ABSENT: guarding, hernia, organolmegaly Rectal exam: PRESENT: deferred Extremities exam: ABSENT: clubbing, full ROM, pedal edema, tenderness Musculoskeletal exam: PRESENT: normal inspection. ABSENT: deformity, dislocation, tenderness Neurological exam: PRESENT: alert, awake, oriented to person, oriented to place , oriented to time, oriented to situation, CN II-XII grossly intact. ABSENT: motor sensory deficit Psychiatric exam: PRESENT: unusual affect Skin exam: PRESENT: dry, intact, warm Results Laboratory Results: 10/16/17 12:05 10/16/17 12:05 10/16/17 10/16/17 12:05 12:05 WBC 8.7 RBC 3.09 L Hgb 9.0 L Hct 27.0 L MCV 88 MCH 29.1 MCHC 33.3 RDW 16.0 H Plt Count 437 Seg Neutrophils % 48.0 Lymphocytes % 40.0 Monocytes % 10.6 Eosinophils % 0.8 Basophils % 0.6 Absolute Neutrophils 4.2 Absolute Lymphocytes 3.5 Absolute Monocytes 0.9 Absolute Eosinophils 0.1 Absolute Basophils 0.0 Sodium 137.4 Potassium 4.0 Chloride 104 Carbon Dioxide 25 Anion Gap 8 BUN 13 Creatinine 0.91 Est GFR ( Amer) > 60 Est GFR (Non-Af Amer) > 60 Glucose 198 H Calcium 9.4 Magnesium 1.8 Total Bilirubin 0.3 AST 21 ALT 26 Alkaline Phosphatase 115 Total Protein 6.7 Albumin 3.6 10/16/17 10/16/17 12:05 12:05 WBC 8.7 RBC 3.09 L Hgb 9.0 L Hct 27.0 L MCV 88 MCH 29.1 MCHC 33.3 RDW 16.0 H Plt Count 437 Seg Neutrophils % 48.0 Lymphocytes % 40.0 Monocytes % 10.6 Eosinophils % 0.8 Basophils % 0.6 Absolute Neutrophils 4.2 Absolute Lymphocytes 3.5 Absolute Monocytes 0.9 Absolute Eosinophils 0.1 Absolute Basophils 0.0 Sodium 137.4 Potassium 4.0 Chloride 104 Carbon Dioxide 25 Anion Gap 8 BUN 13 Creatinine 0.91 Est GFR (Non-Af Amer) > 60 Glucose 198 H Calcium 9.4 Magnesium 1.8 Total Bilirubin 0.3 Direct Bilirubin 0.3 AST 21 ALT 26 Alkaline Phosphatase 115 Total Protein 6.7 Albumin 3.6 Assessment & Plan - Diagnosis (1) Abdominal pain Qualifiers: Abdominal location: generalized Qualified Code(s): R10.84 - Generalized abdominal pain Is this a current diagnosis for this admission?: Yes Plan: Continue NPO status for now. Consider starting clear liquids if pt is feeling better by the end of this day. Pain control. (2) Acute pancreatitis Qualifiers: Pancreatitis type: other Acute pancreatitis complication: unspecified Qualified Code(s): K85.80 - Other acute pancreatitis without necrosis or infection Is this a current diagnosis for this admission?: Yes Plan: IV fluids, pain control, antiemetics, and NPO status. (3) Encephalopathy chronic Is this a current diagnosis for this admission?: Yes Plan: This seems resolved. (4) Uncontrolled type 2 diabetes mellitus Is this a current diagnosis for this admission?: Yes Plan: SSI and FSBS. Sugars controlled. (5) RONIT (acute kidney injury) Is this a current diagnosis for this admission?: Yes Plan: There is no evidense for RONIT. - Time Time Spent with patient: 25-34 minutes Medications reviewed and adjusted accordingly: Yes
[2017-10-16] MEDS: ACETAMINOPHEN 325 MG TABLET PO PRN (20:24)
[2017-10-16] MEDS: INSULIN LISPRO 100 UNIT/ML 3 ML VIAL SUBCUT PRN (23:27)
[2017-10-17] MEDS: HYDROMORPHONE HCL INJ/PF 2 MG/ML AMPULE IV PRN ×2 (05:52→10:18)
[2017-10-17] MEDS: DIPHENHYDRAMINE HCL 50 MG/ML VIAL IV PRN ×2 (05:53→10:17)
[2017-10-17] MEDS: NORMAL SALINE 1000 ML 1,000 ML IV PRN ×2 (06:01→08:20)
[2017-10-17 06:48] LABS: ALANINE AMINOTRANSFERASE 24 U/L (9-52); ALBUMIN 3.1 g/dL (3.5-5.0); ALKALINE PHOSPHATASE 95 U/L (38-126); ANION GAP 5 (5-19); ASPARTATE AMINO TRANSFERASE 20 U/L (14-36); BILIRUBIN,DIRECT 0.2 mg/dL (0.0-0.4); BILIRUBIN,TOTAL 0.3 mg/dL (0.2-1.3); BLOOD UREA NITROGEN 14 mg/dL (7-20); CALCIUM 8.9 mg/dL (8.4-10.2); CARBON DIOXIDE 27 mmol/L (22-30); CHLORIDE 108 mmol/L (98-107); GLUCOSE 152 mg/dL (75-110); LIPASE 105.1 U/L (23-300); POTASSIUM 3.6 mmol/L (3.6-5.0); SODIUM 139.9 mmol/L (137-145); TOTAL PROTEIN 5.9 g/dL (6.3-8.2)
[2017-10-17 06:57] LABS: ABSOLUTE BASOPHILS # (AUTO) 0.1 10^3/uL (0.0-0.2); ABSOLUTE EOSINOPHILS # (AUTO) 0.1 10^3/uL (0.0-0.6); ABSOLUTE LYMPHOCYTES (AUTO) 3.1 10^3/uL (0.5-4.7); ABSOLUTE MONOCYTES (AUTO) 0.7 10^3/uL (0.1-1.4); ABSOLUTE NEUT (AUTO) 4.6 10^3/uL (1.7-8.2); EOSINOPHILS % (AUTO) 0.9 % (0-6); HEMATOCRIT 22.2 % (36.0-47.0); LYMPHOCYTES % (AUTO) 36.3 % (13-45); MEAN CORPUSCULAR HEMOGLOBIN 28.4 pg (27.0-33.4); MEAN CORPUSCULAR HGB CONC 32.5 g/dL (32.0-36.0); MEAN CORPUSCULAR VOLUME 87 fl (80-97); MONOCYTES % (AUTO) 8.6 % (3-13); PLATELET COUNT 365 10^3/uL (150-450); RED BLOOD COUNT 2.55 10^6/uL (3.72-5.28); RED CELL DISTRIBUTION WIDTH 15.9 % (11.5-14.0); SEGMENTED NEUTROPHILS % (AUTO) 53.2 % (42-78); TOTAL CELLS COUNTED % (AUTO) 100 %; WHITE BLOOD COUNT 8.6 10^3/uL (4.0-10.5)
[2017-10-17 07:03] LABS: HEMOGLOBIN 7.2 g/dL (12.0-15.5)
[2017-10-17] MEDS: ACETAMINOPHEN 325 MG TABLET PO PRN ×2 (08:20→21:38)
[2017-10-17] MEDS: METOPROLOL TARTRATE PF/INJ 5 MG/5 ML SDV IV PRN (08:20)
[2017-10-17] MEDS ORDERED: (PENDING PHARMACY ID) (Insulin Aspart [Novolog Flexpen] 10 UNIT) SQ SCH (10:00)
[2017-10-17] MEDS ORDERED: NORMAL SALINE 250 ML IV PRN ×2 (10:23)
[2017-10-17] MEDS ORDERED: METOCLOPRAMIDE HCL INJ/PF 10 MG/2 ML SDV IV PRN (10:30)
[2017-10-17] MEDS: ENOXAPARIN SODIUM INJ 40 MG/0.4 ML DISP.SYRIN SUBCUT SCH (11:02)
[2017-10-17] MEDS: METOPROLOL TARTRATE 25 MG TABLET PO SCH ×2 (11:12→21:10)
[2017-10-17] MEDS: LISINOPRIL 10 MG TABLET PO SCH (11:12)
[2017-10-17] MEDS: PANTOPRAZOLE SODIUM 40 MG VIAL IV SCH (11:12)
[2017-10-17] MEDS: INSULIN LISPRO 100 UNIT/ML 3 ML VIAL SUBCUT SCH ×2 (12:14→19:07)
[2017-10-17] MEDS: INSULIN LISPRO 100 UNIT/ML 3 ML VIAL SUBCUT PRN ×2 (12:14→21:38)
--- NOTE | 2017-10-17 15:05 | RADIOLOGY REPORT (SQ) ---
EXAM DESCRIPTION: PICC INSERTION; FLUORO/CV PLACEMENT; U/S GUIDE FOR VASCULAR ACCESS COMPLETED DATE/TIME: 10/17/2017 1:45 pm REASON FOR STUDY: Needs a PICC line inserted FOR IV ACCESS; IV ACCESS COMPARISON: AP chest 10/05/2017 FLUOROSCOPY TIME: 21 seconds 1 Digital fluoroscopic and 1 ultrasound image saved to PACS. TECHNIQUE: Fluoroscopic and ultrasound guided PICC placement. LIMITATIONS: None. PROCEDURE: After written consent and assessment were obtained, the patient was brought into the fluo roscopy room and placed supine on the table. Ultrasound evaluation of potential access sites were per formed. After successfully identifying a patent left basilic vein, the left arm was prepped and drape d in a sterile fashion along with the ultrasound probe. The entry site was anesthetized with 1% lidoc tanya. A 21 gauge 7 cm needle was advanced through the skin and into the basilic vein under live ultra sound guidance. An ultrasound image was saved to PACS confirming access site. A .018 guide wire was then inserted through the needle and into the venous system. The needle was then removed and an 11 b lade scalpel was used to make a 1cm skin incision. A 5 fr peel-away sheath was advanced over the wir e and into the venous system. A measurement was then made using the existing wire and live fluoroscop ic guidance. The wire was then removed and trimmed. The PICC was advanced through the peel-away sheat h and into the venous system. The peel-away sheath was removed and the catheter was adhered to the pa tients arm with a stat lock. The catheter was then aspirated and flushed and a sterile bandage was pl aced over the access site. A fluoroscopic spot image was saved to PACS confirming the catheter tip w ithin the superior vena cava. IMPRESSION: SUCCESSFUL PLACEMENT OF A 5 FR DUAL LUMEN 35 CM PICC IN THE LEFT BASILIC VEIN. COMMENT: Patient medication list reviewed: Yes- Quality ID# 130:Eligible professional attests to doc umenting in the medical record they obtained, updated, or reviewed the patient's current medications. . Quality ID 145: Final reports for procedures using fluoroscopy that document radiation exposure rand jen, or exposure time and number of fluorographic images (if radiation exposure indices are not avail able) Quality ID #76: The patient was prepped and draped using maximum sterile barrier technique including cap, mask, sterile gown, sterile gloves, a large sterile sheet, hand hygiene, and 2% Chlorhexidine fo r cutaneous antisepsis. When ultrasound is used, sterile ultrasound techniques are followed requiring sterile gel and sterile probes. TECHNICAL DOCUMENTATION: JOB ID: [id number] [employer]- All Rights Reserved rev-06/24 Reading location - IP/workstation name: [facility]
[2017-10-17] MEDS ORDERED: NORMAL SALINE 10 ML SDV (AFTER EACH USE) IV PRN (15:20)
[2017-10-17] MEDS ORDERED: OXYCODONE-ACETAMINOPHEN 5-325 MG TABLET PO PRN (15:24)
[2017-10-17] MEDS: OXYCODONE-ACETAMINOPHEN 5-325 MG TABLET PO PRN ×2 (16:42→22:58)
--- NOTE | 2017-10-17 17:32 | PDOC PROGRESS REPORT ---
Subjective Progress Note for:: 10/17/17 Subjective:: Although the patient continues to complain of severe abdominal pain and to request frequent dosing with IV narcotics, she is also demanding to have her diet advanced from a clear liquid diet. I have explained to her that eating too soon can make her pancreas worse. She either does not believe me or does not care. I will change her narcotics to PO and advance her diet. Will monitor closely for worsening abdominal pain and lipase. Reason For Visit: ACUTE PANCREATITIS Physical Exam Vital Signs: Temp Pulse Resp BP Pulse Ox 98.5 F 98 16 185/101 H 100 10/17/17 12:00 10/17/17 12:00 10/17/17 12:00 10/17/17 12:00 10/17/17 12:00 Intake & Output 10/16/17 10/17/17 10/18/17 06:59 06:59 06:59 Intake Total 713 2372 348 Balance 713 2372 348 Weight 55.8 kg 55.8 kg General appearance: PRESENT: no acute distress Respiratory exam: PRESENT: other - No increased work of breathing.. ABSENT: rales, rhonchi, wheezes Cardiovascular exam: PRESENT: RRR. ABSENT: gallop, rubs, systolic murmur GI/Abdominal exam: PRESENT: hypoactive bowel sounds, soft, tenderness - In epigastrum. ABSENT: guarding, mass, organolmegaly Extremities exam: PRESENT: full ROM, tenderness. ABSENT: clubbing, pedal edema Musculoskeletal exam: PRESENT: normal inspection. ABSENT: deformity, dislocation, tenderness Neurological exam: PRESENT: alert, awake, CN II-XII grossly intact. ABSENT: motor sensory deficit Psychiatric exam: PRESENT: agitated, unusual affect Skin exam: PRESENT: dry, intact, warm Results Laboratory Results: 10/17/17 06:05 10/17/17 06:05 10/17/17 10/17/17 10/17/17 06:05 06:05 11:30 WBC 8.6 RBC 2.55 L Hgb 7.2 L Hct 22.2 L MCV 87 MCH 28.4 MCHC 32.5 RDW 15.9 H Plt Count 365 Seg Neutrophils % 53.2 Lymphocytes % 36.3 Monocytes % 8.6 Eosinophils % 0.9 Basophils % 1.0 Absolute Neutrophils 4.6 Absolute Lymphocytes 3.1 Absolute Monocytes 0.7 Absolute Eosinophils 0.1 Absolute Basophils 0.1 Sodium 139.9 Potassium 3.6 Chloride 108 H Carbon Dioxide 27 Anion Gap 5 BUN 14 Creatinine 1.04 Est GFR ( Amer) > 60 Est GFR (Non-Af Amer) > 60 Glucose 152 H Calcium 8.9 Total Bilirubin 0.3 AST 20 ALT 24 Alkaline Phosphatase 95 Total Protein 5.9 L Albumin 3.1 L Lipase 105.1 Blood Type O POSITIVE Antibody Screen NEGATIVE Impressions: Guidance Fluoroscopy 10/17/17 00:00 IMPRESSION: SUCCESSFUL PLACEMENT OF A 5 FR DUAL LUMEN 35 CM PICC IN THE LEFT BASILIC VEIN. Interventional Vascular Procedure 10/17/17 00:00 IMPRESSION: SUCCESSFUL PLACEMENT OF A 5 FR DUAL LUMEN 35 CM PICC IN THE LEFT BASILIC VEIN. PICC Line Insertion 10/17/17 00:00 IMPRESSION: SUCCESSFUL PLACEMENT OF A 5 FR DUAL LUMEN 35 CM PICC IN THE LEFT BASILIC VEIN. Assessment & Plan - Diagnosis (1) Abdominal pain Qualifiers: Abdominal location: generalized Qualified Code(s): R10.84 - Generalized abdominal pain Is this a current diagnosis for this admission?: Yes Plan: Stop IV dilaudid and start PO percocet. I have advanced diet despite the patient continued complaints of pain as she has demanded it. Her lipase has normalized. Consider discharge to home tomorrow if the patient is able to tolerate a regular diet tomorrow am. (2) Acute pancreatitis Qualifiers: Pancreatitis type: other Acute pancreatitis complication: unspecified Qualified Code(s): K85.80 - Other acute pancreatitis without necrosis or infection Is this a current diagnosis for this admission?: Yes Plan: Stop IV narcotics. PO pain control only. Stop IV fluids. Advance diet. Lipase is normal. (3) Encephalopathy chronic Is this a current diagnosis for this admission?: Yes Plan: This seems resolved. (4) Uncontrolled type 2 diabetes mellitus Is this a current diagnosis for this admission?: Yes Plan: FSBS are too high. Will adjust insulin. (5) RONIT (acute kidney injury) Is this a current diagnosis for this admission?: Yes Plan: No RONIT. - Time Time Spent with patient: 25-34 minutes Medications reviewed and adjusted accordingly: Yes Anticipated discharge: Home Within: within 24 hours
[2017-10-17] MEDS: NORMAL SALINE 10 ML SDV (SCHEDULED) IV SCH (21:11)
[2017-10-18] MEDS: METOPROLOL TARTRATE PF/INJ 5 MG/5 ML SDV IV PRN (00:41)
[2017-10-18 04:47] LABS: ABSOLUTE EOSINOPHILS # (AUTO) 0.1 10^3/uL (0.0-0.6); ABSOLUTE LYMPHOCYTES (AUTO) 2.8 10^3/uL (0.5-4.7); ABSOLUTE MONOCYTES (AUTO) 0.9 10^3/uL (0.1-1.4); ABSOLUTE NEUT (AUTO) 7.3 10^3/uL (1.7-8.2); BASOPHILS % (AUTO) 0.3 % (0-2); EOSINOPHILS % (AUTO) 0.8 % (0-6); HEMATOCRIT 27.7 % (36.0-47.0); HEMOGLOBIN 9.2 g/dL (12.0-15.5); LYMPHOCYTES % (AUTO) 25.1 % (13-45); MEAN CORPUSCULAR HEMOGLOBIN 29.2 pg (27.0-33.4); MEAN CORPUSCULAR HGB CONC 33.2 g/dL (32.0-36.0); MEAN CORPUSCULAR VOLUME 88 fl (80-97); MONOCYTES % (AUTO) 7.8 % (3-13); PLATELET COUNT 351 10^3/uL (150-450); RED BLOOD COUNT 3.15 10^6/uL (3.72-5.28); RED CELL DISTRIBUTION WIDTH 15.7 % (11.5-14.0); TOTAL CELLS COUNTED % (AUTO) 100 %
[2017-10-18] MEDS: OXYCODONE-ACETAMINOPHEN 5-325 MG TABLET PO PRN ×2 (05:33→21:33)
[2017-10-18] MEDS: PROMETHAZINE HCL INJ 25 MG/1 ML VIAL IV PRN ×2 (05:38→21:34)
[2017-10-18] MEDS: NORMAL SALINE 1000 ML 1,000 ML IV PRN (05:39)
[2017-10-18] MEDS ORDERED: INSULIN LISPRO 100 UNIT/ML 3 ML VIAL SUBCUT ONE (06:15)
[2017-10-18] MEDS: INSULIN LISPRO 100 UNIT/ML 3 ML VIAL SUBCUT PRN ×2 (06:20→23:51)
[2017-10-18] MEDS: LISINOPRIL 10 MG TABLET PO SCH (11:26)
[2017-10-18] MEDS: ENOXAPARIN SODIUM INJ 40 MG/0.4 ML DISP.SYRIN SUBCUT SCH (11:29)
[2017-10-18] MEDS: PANTOPRAZOLE SODIUM 40 MG VIAL IV SCH (11:29)
[2017-10-18] MEDS: NORMAL SALINE 10 ML SDV (SCHEDULED) IV SCH ×2 (11:45→21:25)
[2017-10-18] MEDS: INSULIN LISPRO 100 UNIT/ML 3 ML VIAL SUBCUT SCH ×3 (11:48→20:16)
[2017-10-18] MEDS: METOPROLOL TARTRATE 50 MG TABLET PO SCH ×2 (11:53→21:24)
[2017-10-18] MEDS: METOPROLOL TARTRATE 25 MG TABLET PO SCH (12:54)
--- NOTE | 2017-10-18 18:38 | PDOC PROGRESS REPORT ---
Subjective Progress Note for:: 10/18/17 Subjective:: Patient admitted with abdominal pain, feels better today Reason For Visit: ACUTE PANCREATITIS Physical Exam Vital Signs: Temp Pulse Resp BP Pulse Ox 98.1 F 85 16 202/113 H 99 10/18/17 12:18 10/18/17 12:18 10/18/17 12:18 10/18/17 12:18 10/18/17 12:18 Intake & Output 10/17/17 10/18/17 10/19/17 06:59 06:59 06:59 Intake Total 2372 4198 Balance 2372 4198 Weight 55.8 kg 55.8 kg General appearance: PRESENT: no acute distress, thin, other - chronically ill looking Mouth exam: PRESENT: dry mucosa Neck exam: ABSENT: carotid bruit, JVD, lymphadenopathy, thyromegaly Respiratory exam: PRESENT: clear to auscultation teddy. ABSENT: rales, rhonchi, wheezes GI/Abdominal exam: PRESENT: normal bowel sounds, soft. ABSENT: distended, guarding, mass, organolmegaly, rebound, tenderness Rectal exam: PRESENT: deferred Musculoskeletal exam: PRESENT: ambulatory Neurological exam: PRESENT: alert, altered, awake, oriented to person, oriented to place, oriented to time, oriented to situation, reflexes normal, abnormal gait, ataxia, CN II-XII grossly intact, motor sensory deficit, normal gait, aphasic, other Results Laboratory Results: 10/18/17 04:18 10/17/17 06:05 10/17/17 10/18/17 11:30 04:18 WBC 11.0 H RBC 3.15 L Hgb 9.2 L Hct 27.7 L MCV 88 MCH 29.2 MCHC 33.2 RDW 15.7 H Plt Count 351 Seg Neutrophils % 66.0 Lymphocytes % 25.1 Monocytes % 7.8 Eosinophils % 0.8 Basophils % 0.3 Absolute Neutrophils 7.3 Absolute Lymphocytes 2.8 Absolute Monocytes 0.9 Absolute Eosinophils 0.1 Absolute Basophils 0.0 Blood Type O POSITIVE Antibody Screen NEGATIVE Impressions: Guidance Fluoroscopy 10/17/17 00:00 IMPRESSION: SUCCESSFUL PLACEMENT OF A 5 FR DUAL LUMEN 35 CM PICC IN THE LEFT BASILIC VEIN. Interventional Vascular Procedure 10/17/17 00:00 IMPRESSION: SUCCESSFUL PLACEMENT OF A 5 FR DUAL LUMEN 35 CM PICC IN THE LEFT BASILIC VEIN. PICC Line Insertion 10/17/17 00:00 IMPRESSION: SUCCESSFUL PLACEMENT OF A 5 FR DUAL LUMEN 35 CM PICC IN THE LEFT BASILIC VEIN. Assessment & Plan - Time Time Spent with patient: 15-24 minutes Medications reviewed and adjusted accordingly: Yes Anticipated discharge: Home Within: within 24 hours - Inpatient Certification Based on my medical assessment, after consideration of the patient's comorbidities, presenting symptoms, or acuity I expect that the services needed warrant INPATIENT care.: Yes Medical Necessity: Need for Pain Control - Plan Summary Plan Summary: Recurrent abdominal pain. Pain is improved today. She is still on a liquid diet and this has been advanced. 2. Acute pancreatitis on chronic pancreatitis. Judicious narcotics. 3. Uncontrolled type 2 diabetes mellitus we will continue with sliding scale insulin 4. Possible drug-seeking behavior. Judicious narcotic use advised 5. We will plan on home DC if she is stable in a.m.
[2017-10-18] MEDS ORDERED: HYDRALAZINE HCL INJ/PF 20 MG/1 ML SDV IV PRN (18:39)
[2017-10-18] MEDS: AMLODIPINE BESYLATE 5 MG TABLET PO SCH (21:24)
[2017-10-19] MEDS: INSULIN LISPRO 100 UNIT/ML 3 ML VIAL SUBCUT PRN (03:26)
[2017-10-19 04:55] VITALS: BP 160/74
[2017-10-19 05:14] LABS: ABSOLUTE EOSINOPHILS # (AUTO) 0.1 10^3/uL (0.0-0.6); ABSOLUTE LYMPHOCYTES (AUTO) 2.8 10^3/uL (0.5-4.7); ABSOLUTE MONOCYTES (AUTO) 0.8 10^3/uL (0.1-1.4); BASOPHILS % (AUTO) 0.3 % (0-2); EOSINOPHILS % (AUTO) 0.6 % (0-6); HEMOGLOBIN 9.7 g/dL (12.0-15.5); LYMPHOCYTES % (AUTO) 24.1 % (13-45); MEAN CORPUSCULAR HEMOGLOBIN 29.4 pg (27.0-33.4); MEAN CORPUSCULAR HGB CONC 33.3 g/dL (32.0-36.0); MEAN CORPUSCULAR VOLUME 88 fl (80-97); MONOCYTES % (AUTO) 6.5 % (3-13); PLATELET COUNT 347 10^3/uL (150-450); RED BLOOD COUNT 3.29 10^6/uL (3.72-5.28); RED CELL DISTRIBUTION WIDTH 15.4 % (11.5-14.0); SEGMENTED NEUTROPHILS % (AUTO) 68.5 % (42-78); TOTAL CELLS COUNTED % (AUTO) 100 %; WHITE BLOOD COUNT 11.6 10^3/uL (4.0-10.5)
[2017-10-19 05:37] LABS: ANION GAP 9 (5-19); BLOOD UREA NITROGEN 22 mg/dL (7-20); CALCIUM 9.6 mg/dL (8.4-10.2); CARBON DIOXIDE 28 mmol/L (22-30); CHLORIDE 104 mmol/L (98-107); GLUCOSE 269 mg/dL (75-110); POTASSIUM 3.9 mmol/L (3.6-5.0); SODIUM 140.7 mmol/L (137-145)
--- NOTE | 2017-10-19 10:05 | PDOC DISCHARGE SUMMARY ---
General - Admit/Disc Date/PCP Admission Date/Primary Care Provider: 10/15/17 19:58 Discharge Date: 10/19/17 - Discharge Diagnosis (1) Abdominal pain Is this a current diagnosis for this admission?: Yes (2) Uncontrolled type 2 diabetes mellitus Is this a current diagnosis for this admission?: Yes (3) Acute on chronic pancreatitis Is this a current diagnosis for this admission?: Yes (4) Hypertensive urgency Is this a current diagnosis for this admission?: Yes - Additional Information Discharge Diet: As Tolerated, Cardiac Discharge Activity: Activity As Tolerated Prescriptions: Amlodipine Besylate [Norvasc 5 mg Tablet] 5 mg PO DAILY #30 tablet Metoprolol Tartrate [Lopressor 50 mg Tablet] 50 mg PO Q12 #60 tablet Home Medications: Insulin Aspart [Novolog Flexpen] 10 unit SQ TID 10/05/17 Insulin Glargine,Hum.rec.anlog [Lantus Solostar] 33 unit SQ QHS 10/05/17 Lisinopril [Prinivil 40 mg Tablet] 40 mg PO DAILY 10/05/17 Amlodipine Besylate [Norvasc 5 mg Tablet] 5 mg PO DAILY #30 tablet 10/19/17 Metoprolol Tartrate [Lopressor 50 mg Tablet] 50 mg PO Q12 #60 tablet 10/19/17 History of Present Illness History of Present Illness: JJ HOFFMAN is a 37 year old female Who comes to our emergency department complaining of abdominal pain that he started today, pain is in the epigastric area, 10/10 intensity, radiated to the back, associated with persistent nausea and nonbloody vomiting. Denies fever, chills patient has on and off chest pain and shortness of breath which is not new. Denies any diarrhea or urinary symptoms. In the emergency department lipase was elevated 748 Patient has history of chronic pancreatitis He was transfer from our facility to tertiary facility for encephalopathy, but the patient sign out AMA the next day. She is diabetic and she has history of recent admission with DKA and history of DKA with, in the past in [place]. Is mention admission for altered mental status but apparently patient has chronic memory problems and is at her baseline. Hospital Course Hospital Course: Patient was started on intravenous fluid as well as a bowel rest due to acute pancreatitis. Her lipase which was slightly elevated has since normalized. She was able to tolerate her diet. Her blood sugar was slightly elevated in hospital but has since been better controlled prior to discharge. Blood pressure was also poorly controlled and her medications were adjusted. With no further interventions been planned and with hemodynamic stability and clinical improvement patient is been discharged home for outpatient follow-up Physical Exam Vital Signs: Temp Pulse Resp BP Pulse Ox 97.5 F 86 17 160/74 H 100 10/18/17 23:43 10/19/17 04:00 10/18/17 23:43 10/19/17 04:00 10/19/17 04:00 Intake & Output 10/18/17 10/19/17 10/20/17 06:59 06:59 06:59 Intake Total 4198 1881 Balance 4198 1881 Weight 55.8 kg 61 kg General appearance: PRESENT: no acute distress, thin Head exam: PRESENT: atraumatic, normocephalic Eye exam: PRESENT: conjunctiva pink, EOMI, PERRLA. ABSENT: scleral icterus Ear exam: PRESENT: normal external ear exam Mouth exam: PRESENT: moist, tongue midline Neck exam: ABSENT: carotid bruit, JVD, lymphadenopathy, thyromegaly Respiratory exam: PRESENT: clear to auscultation teddy. ABSENT: rales, rhonchi, wheezes Cardiovascular exam: PRESENT: RRR. ABSENT: diastolic murmur, rubs, systolic murmur Pulses: PRESENT: normal dorsalis pedis pul Vascular exam: PRESENT: normal capillary refill GI/Abdominal exam: PRESENT: normal bowel sounds, soft. ABSENT: distended, guarding, mass, organolmegaly, rebound, tenderness Rectal exam: PRESENT: deferred Extremities exam: PRESENT: full ROM. ABSENT: calf tenderness, clubbing, pedal edema Neurological exam: PRESENT: alert, awake, oriented to person, oriented to place , oriented to time, oriented to situation, CN II-XII grossly intact. ABSENT: motor sensory deficit Psychiatric exam: PRESENT: appropriate affect, normal mood. ABSENT: homicidal ideation, suicidal ideation Skin exam: PRESENT: dry, intact, warm. ABSENT: cyanosis, rash Results Laboratory Results: 10/19/17 04:50 10/19/17 04:50 10/19/17 10/19/17 04:50 04:50 WBC 11.6 H RBC 3.29 L Hgb 9.7 L Hct 29.0 L MCV 88 MCH 29.4 MCHC 33.3 RDW 15.4 H Plt Count 347 Seg Neutrophils % 68.5 Lymphocytes % 24.1 Monocytes % 6.5 Eosinophils % 0.6 Basophils % 0.3 Absolute Neutrophils 8.0 Absolute Lymphocytes 2.8 Absolute Monocytes 0.8 Absolute Eosinophils 0.1 Absolute Basophils 0.0 Sodium 140.7 Potassium 3.9 Chloride 104 Carbon Dioxide 28 Anion Gap 9 BUN 22 H Creatinine 1.43 H Est GFR ( Amer) 50 L Est GFR (Non-Af Amer) 41 L Glucose 269 H Calcium 9.6 Impressions: Guidance Fluoroscopy 10/17/17 00:00 IMPRESSION: SUCCESSFUL PLACEMENT OF A 5 FR DUAL LUMEN 35 CM PICC IN THE LEFT BASILIC VEIN. Interventional Vascular Procedure 10/17/17 00:00 IMPRESSION: SUCCESSFUL PLACEMENT OF A 5 FR DUAL LUMEN 35 CM PICC IN THE LEFT BASILIC VEIN. PICC Line Insertion 10/17/17 00:00 IMPRESSION: SUCCESSFUL PLACEMENT OF A 5 FR DUAL LUMEN 35 CM PICC IN THE LEFT BASILIC VEIN. Qualifiers - * PATIENT BEING DISCHARGED WITH ANY OF THE FOLLOWING DIAGNOSIS: No Plan Time Spent: Greater than 30 Minutes
[2017-10-19] MEDS: NORMAL SALINE 10 ML SDV (SCHEDULED) IV SCH (10:30)
[2017-10-19] MEDS: ENOXAPARIN SODIUM INJ 40 MG/0.4 ML DISP.SYRIN SUBCUT SCH (10:30)
[2017-10-19] MEDS: LISINOPRIL 10 MG TABLET PO SCH (10:37)
[2017-10-19] MEDS: AMLODIPINE BESYLATE 5 MG TABLET PO SCH (10:37)
[2017-10-19] MEDS: METOPROLOL TARTRATE 50 MG TABLET PO SCH (10:37)
[2017-10-19] MEDS: INSULIN LISPRO 100 UNIT/ML 3 ML VIAL SUBCUT SCH (10:47)
== END 2017-10-19 10:58 | disposition home or self-care (01) | DRG 438 ==
LOC: ER 16:59 → EH 19:58 → 4S 21:35 → 5 10-17 13:53
PROVIDERS: ADMIT Internal Medicine; ATTEND Internal Medicine
PROC: 02HV33Z Insertion of Infusion Device into Superior Vena Cava, Percutaneous Approach (ICD-10-PCS; principal; 2017-10-17)
PROC: B518ZZA Fluoroscopy of Superior Vena Cava, Guidance (ICD-10-PCS; 2017-10-17)
PROC: B548ZZA Ultrasonography of Superior Vena Cava, Guidance (ICD-10-PCS; 2017-10-17)
PROC: 30233N1 Transfusion of Nonautologous Red Blood Cells into Peripheral Vein, Percutaneous Approach (ICD-10-PCS; 2017-10-17)
DX: K85.90 Acute pancreatitis without necrosis or infection, unspecified (principal); G93.40 Encephalopathy, unspecified; I16.0 Hypertensive urgency; E11.65 Type 2 diabetes mellitus with hyperglycemia; K86.1 Other chronic pancreatitis; I10 Essential (primary) hypertension; E78.00 Pure hypercholesterolemia, unspecified; F17.210 Nicotine dependence, cigarettes, uncomplicated; F10.21 Alcohol dependence, in remission; M19.90 Unspecified osteoarthritis, unspecified site; R00.0 Tachycardia, unspecified; Z79.899 Other long term (current) drug therapy; Z79.4 Long term (current) use of insulin; Z90.710 Acquired absence of both cervix and uterus; Z91.14 Patient's other noncompliance with medication regimen; Z88.6 Allergy status to analgesic agent; Z83.3 Family history of diabetes mellitus; Z82.49 Family history of ischemic heart disease and other diseases of the circulatory system
CPT/HCPCS: 36415; 36430; 36569; 76937; 77001; 80048; 80053; 80307; 81001; 82803; 82962; 83605; 83690; 83735; 84703; 85025; 85610; 85730; 86850; 86900; 86901; 86920; 87040; 87086; 93005; 93010; 96361; 96374; 96375; 96376; 99285; J0360; J1170; J1200; J1642; J1650; J1815; J2405; J2550; J2765; J3490; J7030; J7120; P9016; S0164

== ENCOUNTER 2017-10-30 11:01 | Emergency (ER) | payer MEDICAID ==
[2017-10-30 11:15] VITALS: BP 186/112
[2017-10-30] MEDS ORDERED: NORMAL SALINE 1000 ML 1,000 ML IV ONE (11:28)
[2017-10-30] MEDS ORDERED: ONDANSETRON HCL INJ/PF 4 MG/2 ML SDV IV ONE ×2 (11:28→14:30)
--- NOTE | 2017-10-30 11:30 | ER Document Report ---
ED Medical Screen (RME) - General Chief Complaint: Altered Mental Status Stated Complaint: BLOOD SUGAR PROBLEM Time Seen by Provider: 10/30/17 11:27 Notes: Patient is complaining of abdominal pains that started this morning. She has a history of similar pains in the past and has been diagnosed with recurrent pancreatitis. She has been nauseated and has vomited about 3 times. At home, she was unable to keep medications or food down. Her Accu-Chek dropped down to 40 at home. Patient is currently complaining of pain in the epigastric region of the abdomen. PMH: Hysterectomy, C-sections, IDDM, hypertension, kidney disease. TRAVEL OUTSIDE OF THE [place] IN LAST 30 DAYS: No - Related Data Allergies/Adverse Reactions: hydrocodone [From [place]] Allergy (Verified 10/30/17 11:20) morphine Allergy (Verified 10/30/17 11:20) Past Medical History - Social History Chew tobacco use (# tins/day): No Frequency of alcohol use: None Drug Abuse: Marijuana - Past Medical History Cardiac Medical History: Reports: Hx Hypercholesterolemia, Hx Hypertension Pulmonary Medical History: Denies: Hx COPD Endocrine Medical History: Reports: Hx Diabetes Mellitus Type 1, Hx Diabetes Mellitus Type 2 Renal/ Medical History: Denies: Hx End Stage Renal Disease, Hx Peritoneal Dialysis GI Medical History: Reports: Hx Cirrhosis Musculoskeltal Medical History: Denies Hx Arthritis Skin Medical History: Denies Hx Eczema, Denies Hx Psoriasis Psychiatric Medical History: Denies: Hx Dementia, Hx Depression Past Surgical History: Reports: Hx Section - x3, Hx Hysterectomy - Immunizations History of Influenza Vaccine for 11/2016 - 04/2017 Season: No Physical Exam - Vital signs Vitals: Temp Pulse Resp BP Pulse Ox 97.5 F 92 14 186/112 H 100 10/30/17 11:14 10/30/17 11:14 10/30/17 11:14 10/30/17 11:14 10/30/17 11:14 Course - Vital Signs Vital signs: Temp Pulse Resp BP Pulse Ox 97.5 F 92 14 186/112 H 100 10/30/17 11:14 10/30/17 11:14 10/30/17 11:14 10/30/17 11:14 10/30/17 11:14
[2017-10-30 13:08] LABS: APPEARANCE,URINE CLEAR; BILIRUBIN,URINE NEGATIVE (NEGATIVE); COLOR,URINE STRAW; GLUCOSE, URINE 50 mg/dL (NEGATIVE); KETONES,URINE NEGATIVE (NEGATIVE); LEUKOCYTE ESTERASE,URINE NEGATIVE (NEGATIVE); NITRITE,URINE NEGATIVE (NEGATIVE); PROTEIN,URINE 100 mg/dL (NEGATIVE); URINE SPECIFIC GRAVITY 1.008; UROBILINOGEN,URINE NEGATIVE mg/dL (<2.0)
[2017-10-30] MEDS ORDERED: HYDROMORPHONE HCL INJ/PF 2 MG/ML AMPULE IV ONE (14:14)
[2017-10-30] MEDS ORDERED: ONDANSETRON HCL INJ/PF 4 MG/2 ML SDV ONE (14:28)
[2017-10-30 14:35] LABS: ABSOLUTE EOSINOPHILS # (AUTO) 0.1 10^3/uL (0.0-0.6); ABSOLUTE LYMPHOCYTES (AUTO) 2.9 10^3/uL (0.5-4.7); ABSOLUTE MONOCYTES (AUTO) 0.4 10^3/uL (0.1-1.4); ABSOLUTE NEUT (AUTO) 4.8 10^3/uL (1.7-8.2); BASOPHILS % (AUTO) 0.6 % (0-2); EOSINOPHILS % (AUTO) 0.7 % (0-6); HEMATOCRIT 39.5 % (36.0-47.0); HEMOGLOBIN 13.2 g/dL (12.0-15.5); LYMPHOCYTES % (AUTO) 35.2 % (13-45); MEAN CORPUSCULAR HEMOGLOBIN 29.4 pg (27.0-33.4); MEAN CORPUSCULAR HGB CONC 33.4 g/dL (32.0-36.0); MEAN CORPUSCULAR VOLUME 88 fl (80-97); MONOCYTES % (AUTO) 5.1 % (3-13); PLATELET COUNT 399 10^3/uL (150-450); RED CELL DISTRIBUTION WIDTH 15.4 % (11.5-14.0); SEGMENTED NEUTROPHILS % (AUTO) 58.4 % (42-78); TOTAL CELLS COUNTED % (AUTO) 100 %; WHITE BLOOD COUNT 8.2 10^3/uL (4.0-10.5)
--- NOTE | 2017-10-30 14:42 | ER Document Report ---
ED GI/ - General Chief Complaint: Altered Mental Status Stated Complaint: BLOOD SUGAR PROBLEM Time Seen by Provider: 10/30/17 11:27 Information source: Patient Notes: Patient is a 37-year-old female that presents today with the onset this morning of some epigastric pain with vomiting 3. Patient has a history as recorded including chronic pancreatitis as well as insulin-dependent diabetes. Patient was admitted here around a week and a half ago for similar symptomatology with a lipase of 748. No CT scan was performed at that time. Patient did have an ultrasound of the gallbladder in August 2017, 2 months ago, which showed no gallstones. Patient denies any chest pain, fevers, or shortness of breath. Patient does state that she had an Accu-Chek yesterday of around 40. She states today the lowest it has been has been 90. TRAVEL OUTSIDE OF THE [place] IN LAST 30 DAYS: No - HPI Patient complains to provider of: Other - See above Onset: Other - See above Timing/Duration: Gradual Severity at maximum: Moderate Severity in ED: Mild, Moderate Pain Level: 1 Location: Other - See above Vaginal bleeding (Compared to normal period): None Sexual history: Inactive Associated symptoms: Other - See above Exacerbated by: Denies Relieved by: Denies Similar symptoms previously: No Recently seen / treated by doctor: No - Related Data Allergies/Adverse Reactions: hydrocodone [From [place]] Allergy (Verified 10/30/17 11:20) morphine Allergy (Verified 10/30/17 11:20) Past Medical History - Social History Smoking Status: Current Every Day Smoker Chew tobacco use (# tins/day): No Frequency of alcohol use: None Drug Abuse: Marijuana Family History: Reviewed & Not Pertinent, DM, Hypertension Patient has suicidal ideation: No Patient has homicidal ideation: No - Past Medical History Cardiac Medical History: Reports: Hx Hypercholesterolemia, Hx Hypertension Pulmonary Medical History: Denies: Hx COPD Endocrine Medical History: Reports: Hx Diabetes Mellitus Type 1, Hx Diabetes Mellitus Type 2 Renal/ Medical History: Denies: Hx End Stage Renal Disease, Hx Peritoneal Dialysis GI Medical History: Reports: Hx Cirrhosis Musculoskeletal Medical History: Denies Hx Arthritis Skin Medical History: Denies Hx Eczema, Denies Hx Psoriasis Psychiatric Medical History: Denies: Hx Dementia, Hx Depression Past Surgical History: Reports: Hx Section - x3, Hx Hysterectomy Review of Systems - Review of Systems Constitutional: denies: Fever EENT: denies: Eye discharge, Nose discharge Respiratory: denies: Short of breath Gastrointestinal: Vomiting Genitourinary: denies: Dysuria Musculoskeletal: denies: Leg swelling Skin: Other - no hives. denies: Rash Neurological/Psychological: Other - no slurred speech -: Yes All other systems reviewed and negative Physical Exam - Vital signs Vitals: Temp Pulse Resp BP Pulse Ox 97.5 F 92 14 186/112 H 100 10/30/17 11:14 10/30/17 11:14 10/30/17 11:14 10/30/17 11:14 10/30/17 11:14 Notes: Reviewed vital signs and nursing note as charted by RN. CONSTITUTIONAL: Alert and oriented and responds appropriately to questions. Well -appearing; well-nourished HEAD: Normocephalic; atraumatic EYES: Sclerae non-icteric ENT: Normal nose; no rhinorrhea; moist mucous membranes; pharynx without lesions noted NECK: Supple without meningismus; non-tender; no cervical lymphadenopathy, no masses CARD: Regular rate and rhythm; no murmurs; symmetric distal pulses RESP: Normal chest excursion without splinting or tachypnea; breath sounds clear and equal bilaterally ABD/GI: Normal bowel sounds; non-distended; soft, tender to palpation of the epigastric region without rebound or guarding; no lower abdominal tenderness BACK: The back appears normal and is non-tender to palpation EXT: Normal ROM in all joints; non-tender to palpation; no edema SKIN: Normal color for age and race; warm; dry; no acute lesions noted NEURO: Moves all extremities equally; Motor and sensory function intact PSYCH: The patient's mood and manner are appropriate. Grooming and personal hygiene are appropriate. Course - Re-evaluation Re-evalutation: Given the above history and physical examination we will order a liver panel, lipase, every hour Accu-Cheks, and reassess. Patient has some mild tenderness to the epigastric region. I will also perform a CT scan of the abdomen and pelvis and hold on contrast at this time given the patient's history of some chronic renal failure. 10/30/17 14:42 Initial labs as recorded. Lipase is still pending. 10/30/17 15:46 Initial Accu-Chek at 115 as recorded. Patient has eaten since then. Repeat Accu-Chek is 115. Patient states she is very hungry. CT scan of the abdomen and pelvis as recorded. Labs otherwise as recorded. We will perform every hour Accu-Cheks to assess. Patient has eaten crackers and peanut butter without vomiting. 10/30/17 17:19 Accucheck stable again. Pt ate and tolerated fluids. 10/30/17 18:05 Patient is currently eating a full meal. Patient's pain is improved. No vomiting here. If we perform a repeat throat Accu-Chek and it is stable, patient will be discharged home with strict return precautions and instructions to follow-up with the primary care physician. I will provide nausea medication with strict return precautions. - Vital Signs Vital signs: Temp Pulse Resp BP Pulse Ox 97.5 F 92 14 186/112 H 100 10/30/17 11:14 10/30/17 11:14 10/30/17 11:14 10/30/17 11:14 10/30/17 11:14 - Laboratory Result Diagrams: 10/30/17 13:40 10/30/17 13:40 Laboratory results interpreted by me: 10/30/17 10/30/17 10/30/17 12:45 13:22 13:40 RDW 15.4 H Glucose POC Glucose 46 L Calcium AST Alkaline Phosphatase Total Protein Lipase Urine Protein 100 H Urine Glucose (UA) 50 H 10/30/17 10/30/17 10/30/17 13:40 15:28 17:13 RDW Glucose 35 L* POC Glucose 112 H 162 H Calcium 10.8 H AST 43 H Alkaline Phosphatase 135 H Total Protein 8.8 H Lipase 626.8 H Urine Protein Urine Glucose (UA) Discharge - Discharge Clinical Impression: Hypoglycemia, Epigastric abdominal pain Vomiting Qualifiers: Vomiting type: unspecified Vomiting Intractability: non-intractable Nausea presence: with nausea Qualified Code(s): R11.2 - Nausea with vomiting, unspecified Pancreatitis Qualifiers: Chronicity: chronic Pancreatitis type: unspecified pancreatitis type Qualified Code(s): K86.1 - Other chronic pancreatitis Condition: Good Disposition: HOME, SELF-CARE Additional Instructions: Come back immediately for any increased pain, change in location or quality of pain, fevers, return of vomiting, problems. Please make sure that you eat appropriately and take your blood sugars accurately, and follow-up with your primary care physician.
[2017-10-30 14:44] LABS: ALANINE AMINOTRANSFERASE 42 U/L (9-52); ALBUMIN 4.7 g/dL (3.5-5.0); ALKALINE PHOSPHATASE 135 U/L (38-126); ANION GAP 10 (5-19); ASPARTATE AMINO TRANSFERASE 43 U/L (14-36); BILIRUBIN,DIRECT 0.3 mg/dL (0.0-0.4); BILIRUBIN,TOTAL 0.6 mg/dL (0.2-1.3); BLOOD UREA NITROGEN 11 mg/dL (7-20); CALCIUM 10.8 mg/dL (8.4-10.2); CARBON DIOXIDE 28 mmol/L (22-30); CHLORIDE 106 mmol/L (98-107); LIPASE 626.8 U/L (23-300); POTASSIUM 3.6 mmol/L (3.6-5.0); SODIUM 143.5 mmol/L (137-145); TOTAL PROTEIN 8.8 g/dL (6.3-8.2)
[2017-10-30 14:52] LABS: GLUCOSE 35 mg/dL (75-110)
--- NOTE | 2017-10-30 15:23 | RADIOLOGY REPORT (SQ) ---
EXAM DESCRIPTION: CT ABD/PELVIS NO ORAL OR IV COMPLETED DATE/TIME: 10/30/2017 3:13 pm REASON FOR STUDY: 3h, epigastric pain with h/o pancreatitis COMPARISON: CT abdomen pelvis 08/22/2017, 07/11/2017 Abdominal films 08/27/2017 Abdominal ultrasound 08/17/2017 TECHNIQUE: CT scan of the abdomen and pelvis performed without intravenous or oral contrast. Images reviewed with lung, soft tissue, and bone windows. Reconstructed coronal and sagittal MPR images revi ewed. All images stored on PACS. All CT scanners at this facility use dose modulation, iterative reconstruction, and/or weight based d osing when appropriate to reduce radiation dose to as low as reasonably achievable (ALARA). [facility]: Dose Right [facility]: CareDose [facility]: Dose Right [facility]: Teradose 4D [facility]: [employer] RADIATION DOSE: CT Rad equipment meets quality standard of care and radiation dose reduction techniq ues were employed. CTDIvol: 4.9 mGy. DLP: 247 mGy-cm.mGy. LIMITATIONS: None. FINDINGS: LOWER CHEST: No significant findings. No nodules or infiltrates. NON-CONTRASTED LIVER, SPLEEN, ADRENALS: Evaluation limited by lack of IV contrast. No identified sign ificant masses. PANCREAS: There are calcifications at the pancreatic head from old calcific pancreatitis, best shown on coronal reconstruction images 22-26. On the current study, no retroperitoneal peripancreatic infl ammation is identified. No pseudocyst. GALLBLADDER: No identified stones by CT criteria. No inflammatory changes to suggest cholecystitis. RIGHT KIDNEY AND URETER: No suspicious masses. Assessment limited by lack of IV contrast. No signif icant calcifications. No hydronephrosis or hydroureter. LEFT KIDNEY AND URETER: No suspicious masses. Assessment limited by lack of IV contrast. No signifi cant calcifications. No hydronephrosis or hydroureter. AORTA AND RETROPERITONEUM: No aneurysm. No retroperitoneal masses or adenopathy. BOWEL AND PERITONEAL CAVITY: No obvious masses or inflammatory changes. No free fluid. APPENDIX: Normal. PELVIS, BLADDER, AND ABDOMINAL WALL:No abnormal masses. No free fluid. Bladder normal. Post hysterec farhan BONES: No significant findings. OTHER: No other significant finding. IMPRESSION: Pancreatic head calcifications from old pancreatitis. No acute findings COMMENT: Quality ID # [id number]: Final reports with documentation of one or more dose reduction techniques (e.g., Automated exposure control, adjustment of the mA and/or kV according to patient size, use of iterative reconstruction technique) TECHNICAL DOCUMENTATION: JOB ID: [id number] [employer]- All Rights Reserved Reading location - IP/workstation name: [email or web address]
[2017-10-30] MEDS ORDERED: DEXTROSE 50%-WATER 25 GM/50 ML DISP.SYRIN IV ONE (15:26)
== END 2017-10-30 18:23 | disposition home or self-care (01) ==
LOC: ER 11:01
DX: E11.649 Type 2 diabetes mellitus with hypoglycemia without coma (principal); Z79.4 Long term (current) use of insulin; K86.1 Other chronic pancreatitis; R11.2 Nausea with vomiting, unspecified; R10.13 Epigastric pain; F17.200 Nicotine dependence, unspecified, uncomplicated; F12.10 Cannabis abuse, uncomplicated; I10 Essential (primary) hypertension; Z88.5 Allergy status to narcotic agent
CPT/HCPCS: 99285; 96361; 96374; 96375; 36415; 82962; 83690; 85025; 80053; 81001; 74176; J1170; J2405

== ENCOUNTER 2017-11-05 09:10 | Observation (INO) | payer MEDICAID ==
[2017-11-05] MEDS ORDERED: FENTANYL CITRATE INJ/PF 100 MCG/2 ML AMPUL IV ONE ×2 (09:31→11:22)
[2017-11-05] MEDS ORDERED: ONDANSETRON HCL INJ/PF 4 MG/2 ML SDV IV ONE (09:31)
[2017-11-05] MEDS ORDERED: NORMAL SALINE 1000 ML 1,000 ML IV ONE (09:31)
--- NOTE | 2017-11-05 09:34 | ER Document Report ---
ED Medical Screen (RME) - General Chief Complaint: Flank Pain Stated Complaint: FLANK PAIN Time Seen by Provider: 11/05/17 09:30 Notes: 37 years old female with a history of chronic pancreatitis, due to past alcoholism, diabetes uncontrolled, hypertension, presents today with diffuse abdominal pain more so over the epigastrium and right flank, associated with nausea but no vomiting. Had not had any bowel movement for 2 days. Denies any fever chills. According to the daughter while she was waiting in the waiting room had 4 episodes of passing out, not witnessed by anybody else. Current smoker denies any alcohol use now On examination-appears to be in moderate to severe discomfort, sharp tenderness over the epigastrium as well as right flank. TRAVEL OUTSIDE OF THE [place] IN LAST 30 DAYS: No - Related Data Allergies/Adverse Reactions: hydrocodone [From [place]] Allergy (Verified 11/05/17 09:11) morphine Allergy (Verified 11/05/17 09:11) Past Medical History - Social History Frequency of alcohol use: None Drug Abuse: Marijuana - Past Medical History Cardiac Medical History: Reports: Hx Hypercholesterolemia, Hx Hypertension Pulmonary Medical History: Denies: Hx COPD Endocrine Medical History: Reports: Hx Diabetes Mellitus Type 1, Hx Diabetes Mellitus Type 2 Renal/ Medical History: Denies: Hx End Stage Renal Disease, Hx Peritoneal Dialysis GI Medical History: Reports: Hx Cirrhosis Musculoskeltal Medical History: Denies Hx Arthritis Skin Medical History: Denies Hx Eczema, Denies Hx Psoriasis Psychiatric Medical History: Denies: Hx Dementia, Hx Depression Past Surgical History: Reports: Hx Section - x3, Hx Hysterectomy - Immunizations History of Influenza Vaccine for 11/2016 - 04/2017 Season: No Physical Exam - Vital signs Vitals: Temp Pulse Resp BP Pulse Ox 98.4 F 92 16 193/116 H 99 11/05/17 09:14 11/05/17 09:14 11/05/17 09:14 11/05/17 09:14 11/05/17 09:14 Course - Vital Signs Vital signs: Temp Pulse Resp BP Pulse Ox 98.4 F 92 16 193/116 H 99 11/05/17 09:14 11/05/17 09:14 11/05/17 09:14 11/05/17 09:14 11/05/17 09:14
--- NOTE | 2017-11-05 10:25 | ER Document Report ---
ED General - General Chief Complaint: Flank Pain Stated Complaint: FLANK PAIN Time Seen by Provider: 11/05/17 09:30 TRAVEL OUTSIDE OF THE [place] IN LAST 30 DAYS: No - HPI Notes: Patient is a 37-year-old female that presents to the emergency department for chief complaint of abdominal pain and right low back pain. Patient presents with epigastric abdominal pain that started this morning. She states it is sharp and nonradiating. There is no aggravating or relieving factors to her pain. She reports nausea with no emesis. Patient also complaining of right flank pain that she states is low in the right side. She has a history of alcoholic pancreatitis. She states her last alcoholic intake was 5 years ago. She is a daily tobacco user. She denies fever, chills, diarrhea, constipation chest pain and shortness of breath. Past Medical History: Diabetes, hypertension, chronic pancreatitis, renal failure Past Surgical History: , partial hysterectomy Social History: Daily tobacco, history of alcohol abuse, denies drug use Family History: Reviewed and noncontributory for presenting illness Allergies: Reviewed, see documented allergy list. REVIEW OF SYSTEMS: CONSTITUTIONAL : No fever No chills No diaphoresis No recent illness EENT: No vision changes No congestion No sore throat CARDIOVASCULAR: No chest pain No palpitations RESPIRATORY: No shortness of breath No cough No difficulty breathing GASTROINTESTINAL: abdominal pain nausea No vomiting No diarrhea GENITOURINARY: No dysuria No hematuria No difficulty urinating MUSCULOSKELETAL: Right back pain No leg pain No arm pain SKIN: No rashes No lesions LYMPHATIC: No swollen, enlarged glands. NEUROLOGICAL: No lightheadedness No headache No weakness No paresthesias PSYCHIATRIC: No anxiety No depression PHYSICAL EXAMINATION: Vital signs reviewed, nursing noted reviewed. GENERAL: Well-appearing, well-nourished and in no acute distress. HEAD: Atraumatic, normocephalic. EYES: Eyes appear normal, extraocular movements intact, sclera anicteric, conjunctiva are normal. ENT: nares patent, oropharynx clear without exudates. Moist mucous membranes. NECK: Normal range of motion, supple without lymphadenopathy LUNGS: Breath sounds clear to auscultation bilaterally and equal. No wheezes rales or rhonchi. HEART: Regular rate and rhythm without murmurs ABDOMEN: Soft, diffuse tenderness greatest in the epigastric region, normoactive bowel sounds. No rebound, guarding, or rigidity. No masses appreciated. Back: No midline tenderness EXTREMITIES: Nontender, good range of motion, no pitting or edema. NEUROLOGICAL: No focal neurological deficits. Moves all extremities spontaneously Motor and sensory grossly intact on exam. PSYCH: Normal mood, normal affect. SKIN: Warm, Dry, normal turgor, no rashes or lesions noted on exposed skin - Related Data Allergies/Adverse Reactions: hydrocodone [From [place]] Allergy (Verified 11/05/17 09:11) morphine Allergy (Verified 11/05/17 09:11) Past Medical History - Social History Smoking Status: Current Every Day Smoker Frequency of alcohol use: None Drug Abuse: Marijuana Family History: Reviewed & Not Pertinent, DM, Hypertension Patient has suicidal ideation: No Patient has homicidal ideation: No - Past Medical History Cardiac Medical History: Reports: Hx Hypercholesterolemia, Hx Hypertension Pulmonary Medical History: Denies: Hx COPD Endocrine Medical History: Reports: Hx Diabetes Mellitus Type 1, Hx Diabetes Mellitus Type 2 Renal/ Medical History: Denies: Hx End Stage Renal Disease, Hx Peritoneal Dialysis GI Medical History: Reports: Hx Cirrhosis Musculoskeletal Medical History: Denies Hx Arthritis Skin Medical History: Denies Hx Eczema, Denies Hx Psoriasis Psychiatric Medical History: Denies: Hx Dementia, Hx Depression Past Surgical History: Reports: Hx Section - x3, Hx Hysterectomy Review of Systems - Review of Systems Notes: Dictated Physical Exam - Vital signs Vitals: Temp Pulse Resp BP Pulse Ox 98.4 F 92 16 193/116 H 99 11/05/17 09:14 11/05/17 09:14 11/05/17 09:14 11/05/17 09:14 11/05/17 09:14 - Notes Notes: Dictated Course - Re-evaluation Re-evalutation: 11/05/17 10:25 Vitals reviewed. Nursing notes reviewed. Patient given IV hydration, antiemetics and pain medication. 11/05/17 11:16 Reevaluation patient is still uncomfortable, she will be given another dose of pain medication. Lab work shows increasing lipase compared to a few days ago. Patient did have CT scan in the last few days, KUB shows no obstruction. Repeat CT scan not currently indicated. Patient will be admitted to the hospital for acute pancreatitis. Case discussed with admitting physician . Patient in agreement with the plan Laboratory 11/05/17 11/05/17 11/05/17 09:37 10:35 10:35 WBC 10.0 RBC 3.98 Hgb 11.7 L Hct 34.9 L MCV 88 MCH 29.5 MCHC 33.6 RDW 15.2 H Plt Count 383 Seg Neutrophils % 66.0 Lymphocytes % 25.6 Monocytes % 6.9 Eosinophils % 1.2 Basophils % 0.3 Absolute Neutrophils 6.6 Absolute Lymphocytes 2.6 Absolute Monocytes 0.7 Absolute Eosinophils 0.1 Absolute Basophils 0.0 Sodium 139.4 Potassium 4.3 Chloride 104 Carbon Dioxide 27 Anion Gap 8 BUN 28 H Creatinine 1.15 Est GFR ( Amer) > 60 Est GFR (Non-Af Amer) 53 L Glucose 210 H Calcium 10.0 Total Bilirubin 0.4 Direct Bilirubin 0.2 Neonat Total Bilirubin Not Reportable Neonat Direct Bilirubin Not Reportable Neonat Indirect Bili Not Reportable AST 40 H ALT 39 Alkaline Phosphatase 135 H Total Protein 7.4 Albumin 4.0 Lipase 817.7 H Urine Color STRAW Urine Appearance SLIGHTLY-CLOUDY Urine pH 7.0 Ur Specific Carey 1.011 Urine Protein 100 H Urine Glucose (UA) 150 H Urine Ketones NEGATIVE Urine Blood NEGATIVE Urine Nitrite NEGATIVE Urine Bilirubin NEGATIVE Urine Urobilinogen NEGATIVE Ur Leukocyte Esterase NEGATIVE Urine WBC (Auto) 1 Urine RBC (Auto) 2 Squamous Epi Cells Auto 5 Urine Ascorbic Acid NEGATIVE KUB X-Ray 11/05/17 00:00 IMPRESSION: NO RADIOGRAPHIC EVIDENCE FOR ACUTE ABDOMINAL DISEASE. - Vital Signs Vital signs: Temp Pulse Resp BP Pulse Ox 98.4 F 92 16 193/116 H 99 11/05/17 09:14 11/05/17 09:14 11/05/17 09:14 11/05/17 09:14 11/05/17 09:14 - Laboratory Result Diagrams: 11/05/17 10:35 11/05/17 10:35 Laboratory results interpreted by me: 11/05/17 11/05/17 11/05/17 09:37 10:35 10:35 Hgb 11.7 L Hct 34.9 L RDW 15.2 H BUN 28 H Est GFR (Non-Af Amer) 53 L Glucose 210 H AST 40 H Alkaline Phosphatase 135 H Lipase 817.7 H Urine Protein 100 H Urine Glucose (UA) 150 H Discharge - Discharge Clinical Impression: Pancreatitis Qualifiers: Chronicity: acute Pancreatitis type: other Acute pancreatitis complication: unspecified Qualified Code(s): K85.80 - Other acute pancreatitis without necrosis or infection Condition: Stable Disposition: ADMITTED INPATIENT Admitting Provider: Hospitalist Unit Admitted: Medical Floor
[2017-11-05 10:27] LABS: APPEARANCE,URINE SLIGHTLY-CLOUDY; BILIRUBIN,URINE NEGATIVE (NEGATIVE); COLOR,URINE STRAW; GLUCOSE, URINE 150 mg/dL (NEGATIVE); KETONES,URINE NEGATIVE (NEGATIVE); LEUKOCYTE ESTERASE,URINE NEGATIVE (NEGATIVE); NITRITE,URINE NEGATIVE (NEGATIVE); PROTEIN,URINE 100 mg/dL (NEGATIVE); URINE SPECIFIC GRAVITY 1.011; UROBILINOGEN,URINE NEGATIVE mg/dL (<2.0)
--- NOTE | 2017-11-05 10:31 | RADIOLOGY REPORT (SQ) ---
EXAM DESCRIPTION: KUB/ABDOMEN (SINGLE VIEW) COMPLETED DATE/TIME: 11/05/2017 10:13 am REASON FOR STUDY: F/U PANCREATITIS, ABD PAIN COMPARISON: None. NUMBER OF VIEWS: One view. TECHNIQUE: Supine radiographic image of the abdomen acquired. LIMITATIONS: None. FINDINGS: BOWEL GAS PATTERN: Nonobstructive pattern. Large amount of stool. CALCIFICATIONS: No suspicious calcifications. SOFT TISSUES: No gross mass or suggestion of organomegaly. HARDWARE: None in the abdomen. BONES: No acute fracture. No worrisome bone lesions. OTHER: No other significant finding. IMPRESSION: NO RADIOGRAPHIC EVIDENCE FOR ACUTE ABDOMINAL DISEASE. TECHNICAL DOCUMENTATION: JOB ID: [id number] [employer]- All Rights Reserved Reading location - IP/workstation name: [email or web address]
[2017-11-05 10:52] LABS: ABSOLUTE EOSINOPHILS # (AUTO) 0.1 10^3/uL (0.0-0.6); ABSOLUTE LYMPHOCYTES (AUTO) 2.6 10^3/uL (0.5-4.7); ABSOLUTE MONOCYTES (AUTO) 0.7 10^3/uL (0.1-1.4); ABSOLUTE NEUT (AUTO) 6.6 10^3/uL (1.7-8.2); BASOPHILS % (AUTO) 0.3 % (0-2); EOSINOPHILS % (AUTO) 1.2 % (0-6); HEMATOCRIT 34.9 % (36.0-47.0); HEMOGLOBIN 11.7 g/dL (12.0-15.5); LYMPHOCYTES % (AUTO) 25.6 % (13-45); MEAN CORPUSCULAR HEMOGLOBIN 29.5 pg (27.0-33.4); MEAN CORPUSCULAR HGB CONC 33.6 g/dL (32.0-36.0); MEAN CORPUSCULAR VOLUME 88 fl (80-97); MONOCYTES % (AUTO) 6.9 % (3-13); PLATELET COUNT 383 10^3/uL (150-450); RED BLOOD COUNT 3.98 10^6/uL (3.72-5.28); RED CELL DISTRIBUTION WIDTH 15.2 % (11.5-14.0); TOTAL CELLS COUNTED % (AUTO) 100 %
[2017-11-05 11:10] LABS: ALANINE AMINOTRANSFERASE 39 U/L (9-52); ALKALINE PHOSPHATASE 135 U/L (38-126); ANION GAP 8 (5-19); ASPARTATE AMINO TRANSFERASE 40 U/L (14-36); BILIRUBIN,DIRECT 0.2 mg/dL (0.0-0.4); BILIRUBIN,TOTAL 0.4 mg/dL (0.2-1.3); BLOOD UREA NITROGEN 28 mg/dL (7-20); CARBON DIOXIDE 27 mmol/L (22-30); CHLORIDE 104 mmol/L (98-107); GLUCOSE 210 mg/dL (75-110); LIPASE 817.7 U/L (23-300); POTASSIUM 4.3 mmol/L (3.6-5.0); SODIUM 139.4 mmol/L (137-145); TOTAL PROTEIN 7.4 g/dL (6.3-8.2)
[2017-11-05 12:44] LABS: CHOLESTEROL 273.55 mg/dL (0-200); TRIGLYCERIDES 78 mg/dL (<150)
[2017-11-05 12:55] LABS: DIRECT LDL 136 mg/dL (<100)
[2017-11-05 12:57] LABS: ALCOHOL < 10 mg/dL (NONE DETECTED)
[2017-11-05 13:02] LABS: URINE AMPHETAMINES SCREEN NEGATIVE; URINE BARBITURATES SCREEN NEGATIVE; URINE BENZODIAZEPINES SCREEN NEGATIVE; URINE COCAINE SCREEN NEGATIVE; URINE MARIJUANA (THC) SCREEN UNCONFIRMED POSITIVE; URINE METHADONE SCREEN NEGATIVE; URINE PHENCYCLIDINE SCREEN NEGATIVE
[2017-11-05] MEDS ORDERED: HYDRALAZINE HCL INJ/PF 20 MG/1 ML SDV IV ONE (14:00)
[2017-11-05] MEDS ORDERED: GLUCAGON,HUMAN RECOMB 1 MG INJ IM PRN (15:42)
[2017-11-05] MEDS ORDERED: DEXTROSE 50%-WATER 25 GM/50 ML DISP.SYRIN IV PRN ×2 (15:42)
[2017-11-05] MEDS ORDERED: DEXTROSE 40% GEL 15 GM TUBE PO PRN ×2 (15:42)
[2017-11-05] MEDS ORDERED: (PENDING PHARMACY ID) (Lisinopril [Zestril] 40 MG) PO SCH (15:45)
--- NOTE | 2017-11-05 15:52 | PDOC H&P ---
History of Present Illness Admission Date/PCP: 11/05/17 11:24 Patient complains of: Abdominal pain History of Present Illness: JJ HOFFMAN is a 37 year old female who has diabetes that is insulin- dependent, hypertension, chronic pancreatitis. Patient presents to the emergency room due to acute severe dull aching pain in the epigastric area. Pain was not associated with nausea or vomiting. Pain referred to the back. Patient received analgesia in the emergency room and currently pain-free. She is hungry and wants to eat. Her lipase is elevated. CT scan was done yesterday and was positive for pancreatic head calcification indicating chronic pancreatitis with no acute issues. Past Medical History Cardiac Medical History: Reports: Hyperlipidema, Hypertension Pulmonary Medical History: Denies: Chronic Obstructive Pulmonary Disease (COPD) Endocrine Medical History: Reports: Diabetes Mellitus Type 1, Diabetes Mellitus Type 2 Renal/ Medical History: Denies: End Stage Renal Disease GI Medical History: Reports: Cirrhosis Musculoskeltal Medical History: Denies: Arthritis Skin Medical History: Denies: Eczema, Psoriasis Psychiatric Medical History: Denies: Dementia, Depression Hematology: Denies: Anemia Past Surgical History Past Surgical History: Reports: Section - x3, Hysterectomy Social History Smoking Status: Current Every Day Smoker Cigarettes Packs Per Day: 0.5 Number of Years Smokin Frequency of Alcohol Use: None Hx Recreational Drug Use: Yes Drugs: Marijuana Hx Prescription Drug Abuse: No - Advance Directive Resuscitation Status: Full Code Family History Family History: Reviewed & Not Pertinent, DM, Hypertension Parental Family History Reviewed: Yes Children Family History Reviewed: Yes Sibling(s) Family History Reviewed.: Yes Medication/Allergy Home Medications: Amlodipine Besylate [Norvasc 5 mg Tablet] 5 mg PO BID 11/05/17 Divalproex Sodium [Depakote Sprinkle 125 mg Capsule] 250 mg PO TID 11/05/17 Insulin Aspart [Novolog Flexpen] 0 units SQ .PERSLIDINGSCALE 11/05/17 Insulin Glargine,Hum.rec.anlog [Lantus Solostar] 30 units SQ DAILY 11/05/17 Lisinopril [Zestril] 40 mg PO DAILY 11/05/17 Metoprolol Succinate [Toprol Xl 50 mg Tab.sr] 50 mg PO BID 11/05/17 Allergies/Adverse Reactions: hydrocodone [From [place]] Allergy (Verified 11/05/17 09:11) morphine Allergy (Verified 11/05/17 09:11) Review of Systems All systems: reviewed and no additional remarkable complaints except as stated Physical Exam Vital Signs: Temp Pulse Resp BP Pulse Ox 98.1 F 84 16 193/104 H 100 11/05/17 13:15 11/05/17 13:15 11/05/17 13:15 11/05/17 13:15 11/05/17 13:15 Intake & Output 11/04/17 11/05/17 11/06/17 06:59 06:59 06:59 Intake Total 345 Balance 345 Weight 126 lb 15.78 oz General appearance: PRESENT: no acute distress, well-developed, well-nourished Head exam: PRESENT: atraumatic, normocephalic Eye exam: PRESENT: conjunctiva pink, EOMI, PERRLA. ABSENT: scleral icterus Ear exam: PRESENT: normal external ear exam Mouth exam: PRESENT: moist, tongue midline Neck exam: ABSENT: carotid bruit, JVD, lymphadenopathy, thyromegaly Respiratory exam: PRESENT: clear to auscultation teddy. ABSENT: rales, rhonchi, wheezes Cardiovascular exam: PRESENT: RRR. ABSENT: diastolic murmur, rubs, systolic murmur Pulses: PRESENT: normal dorsalis pedis pul Vascular exam: PRESENT: normal capillary refill GI/Abdominal exam: PRESENT: normal bowel sounds, soft, tenderness - Epigastric. ABSENT: distended, guarding, mass, organolmegaly, rebound Rectal exam: PRESENT: deferred Extremities exam: PRESENT: full ROM. ABSENT: calf tenderness, clubbing, pedal edema Neurological exam: PRESENT: alert, awake, oriented to person, oriented to place , oriented to time, oriented to situation, CN II-XII grossly intact. ABSENT: motor sensory deficit Skin exam: PRESENT: dry, intact, warm. ABSENT: cyanosis, rash Results Impressions: KUB X-Ray 11/05/17 00:00 IMPRESSION: NO RADIOGRAPHIC EVIDENCE FOR ACUTE ABDOMINAL DISEASE. Assessment & Plan - Diagnosis (1) Abdominal pain Is this a current diagnosis for this admission?: Yes Plan: Pain has improved She was sleeping and appears comfortable We will give Percocet as needed (2) Acute on chronic pancreatitis Is this a current diagnosis for this admission?: Yes Plan: Continue IV fluids Continue Percocet as above Will start Creon She is abstinent from alcohol now (3) Hypertension Qualifiers: Is this a current diagnosis for this admission?: Yes Plan: Continue home medications Monitor blood pressure (4) Uncontrolled type 2 diabetes mellitus Is this a current diagnosis for this admission?: Yes Plan: Continue Lantus and NovoLog sliding scale Hemoglobin A1c is 9.6 Continue to monitor fingerstick glucose throughout hospitalization
[2017-11-05] MEDS: OXYCODONE-ACETAMINOPHEN 5-325 MG TABLET PO PRN ×2 (17:08→21:45)
[2017-11-05] MEDS: LISINOPRIL 10 MG TABLET PO SCH (17:12)
[2017-11-05] MEDS: INSULIN LISPRO 100 UNIT/ML 3 ML VIAL SUBCUT PRN ×2 (17:15→21:46)
[2017-11-05] MEDS: INSULIN GLARGINE,HUM.REC.ANLOG 300 UNIT/3 ML INSULN.PEN SUBCUT SCH (17:51)
[2017-11-05] MEDS ORDERED: METOPROLOL SUCCINATE 50 MG TAB.SR.24H PO SCH (18:00)
[2017-11-05] MEDS ORDERED: AMLODIPINE BESYLATE 5 MG TABLET PO SCH (18:00)
[2017-11-05] MEDS ORDERED: DIVALPROEX SODIUM 125 MG CAP.SPRINK PO SCH ×2 (18:00→22:00)
[2017-11-05] MEDS: LIPASE/PROTEASE/AMYLASE 1 CAP CAPSULE.DR PO SCH (18:36)
[2017-11-05] MEDS: NORMAL SALINE 1000 ML 1,000 ML IV PRN (18:37)
[2017-11-05] MEDS: AMLODIPINE BESYLATE 5 MG TABLET PO SCH (21:46)
[2017-11-05] MEDS: METOPROLOL SUCCINATE 50 MG TAB.SR.24H PO SCH (21:46)
[2017-11-06] MEDS: NORMAL SALINE 1000 ML 1,000 ML IV PRN (01:09)
[2017-11-06] MEDS: OXYCODONE-ACETAMINOPHEN 5-325 MG TABLET PO PRN ×2 (01:43→05:25)
[2017-11-06 05:11] LABS: HEMATOCRIT 35.6 % (36.0-47.0); MEAN CORPUSCULAR HEMOGLOBIN 29.5 pg (27.0-33.4); MEAN CORPUSCULAR HGB CONC 33.7 g/dL (32.0-36.0); MEAN CORPUSCULAR VOLUME 88 fl (80-97); PLATELET COUNT 367 10^3/uL (150-450); RED BLOOD COUNT 4.06 10^6/uL (3.72-5.28); RED CELL DISTRIBUTION WIDTH 15.3 % (11.5-14.0); WHITE BLOOD COUNT 9.3 10^3/uL (4.0-10.5)
[2017-11-06] MEDS ORDERED: KETOROLAC TROMETHAMINE INJ/PF 30 MG/1 ML SDV IV PRN (05:31)
[2017-11-06 05:41] LABS: ALANINE AMINOTRANSFERASE 44 U/L (9-52); ALBUMIN 3.9 g/dL (3.5-5.0); ALKALINE PHOSPHATASE 105 U/L (38-126); ANION GAP 7 (5-19); ASPARTATE AMINO TRANSFERASE 50 U/L (14-36); BILIRUBIN,DIRECT 0.4 mg/dL (0.0-0.4); BILIRUBIN,TOTAL 0.4 mg/dL (0.2-1.3); BLOOD UREA NITROGEN 19 mg/dL (7-20); CALCIUM 9.4 mg/dL (8.4-10.2); CARBON DIOXIDE 26 mmol/L (22-30); CHLORIDE 108 mmol/L (98-107); GLUCOSE 60 mg/dL (75-110); LIPASE 233.3 U/L (23-300); POTASSIUM 3.9 mmol/L (3.6-5.0); SODIUM 140.7 mmol/L (137-145)
[2017-11-06 08:34] VITALS: BP 144/91
--- NOTE | 2017-11-06 09:05 | PDOC DISCHARGE SUMMARY ---
General - Admit/Disc Date/PCP Admission Date/Primary Care Provider: 11/05/17 11:24 Discharge Date: 11/06/17 - Discharge Diagnosis (1) Abdominal pain Is this a current diagnosis for this admission?: Yes (2) Acute on chronic pancreatitis Is this a current diagnosis for this admission?: Yes (3) Hypertension Is this a current diagnosis for this admission?: Yes (4) Uncontrolled type 2 diabetes mellitus Is this a current diagnosis for this admission?: Yes - Additional Information Resuscitation Status: Full Code Discharge Diet: As Tolerated Discharge Activity: Activity As Tolerated Prescriptions: Lipase/Protease/Amylase [Pancreaze-10 Capsule.] 1 cap PO BIDACBS #120 capsule. Oxycodone HCl/Acetaminophen [Percocet 5-325 mg Tablet] 1 tab PO Q6HP PRN #15 tablet PRN Reason: Home Medications: Amlodipine Besylate [Norvasc 5 mg Tablet] 5 mg PO BID 11/05/17 Divalproex Sodium [Depakote Sprinkle 125 mg Capsule] 250 mg PO TID 11/05/17 Insulin Aspart [Novolog Flexpen] 0 units SQ .PERSLIDINGSCALE 11/05/17 Insulin Glargine,Hum.rec.anlog [Lantus Solostar] 30 units SQ DAILY 11/05/17 Lisinopril [Zestril] 40 mg PO DAILY 11/05/17 Metoprolol Succinate [Toprol Xl 50 mg Tab.sr] 50 mg PO BID 11/05/17 Lipase/Protease/Amylase [Pancreaze-10 Capsule.] 1 cap PO BIDACBS #120 capsule. 11/06/17 Oxycodone HCl/Acetaminophen [Percocet 5-325 mg Tablet] 1 tab PO Q6HP PRN #15 tablet 11/06/17 History of Present Illness History of Present Illness: JJ HOFFMAN is a 37 year old female who has diabetes that is insulin- dependent, hypertension, chronic pancreatitis. Patient presents to the emergency room due to acute severe dull aching pain in the epigastric area. Pain was not associated with nausea or vomiting. Pain referred to the back. Patient received analgesia in the emergency room and currently pain-free. She is hungry and wants to eat. Her lipase is elevated. CT scan was done yesterday and was positive for pancreatic head calcification indicating chronic pancreatitis with no acute issues. Hospital Course Hospital Course: (1) Abdominal pain Patient received Percocet as needed and improved (2) Acute on chronic pancreatitis Received IV fluids and Percocet as needed Tolerated diet, was initially on clears and diet was advanced We will give prescription for Creon on discharge (3) Hypertension Continued home medications (4) Uncontrolled type 2 diabetes mellitus Continued Lantus and NovoLog sliding scale Hemoglobin A1c is 9.6 Follow-up with primary care physician Okay to discharge Physical Exam Vital Signs: Temp Pulse Resp BP Pulse Ox 98.3 F 83 18 144/91 H 100 11/06/17 08:33 11/06/17 08:33 11/06/17 08:33 11/06/17 08:33 11/06/17 08:33 Intake & Output 11/05/17 11/06/17 11/07/17 06:59 06:59 06:59 Intake Total 3015 Output Total 300 Balance 2715 Weight 132 lb 0.91 oz General appearance: PRESENT: no acute distress, well-developed, well-nourished Head exam: PRESENT: atraumatic, normocephalic Eye exam: PRESENT: conjunctiva pink, EOMI, PERRLA. ABSENT: scleral icterus Ear exam: PRESENT: normal external ear exam Mouth exam: PRESENT: moist, tongue midline Neck exam: ABSENT: carotid bruit, JVD, lymphadenopathy, thyromegaly Respiratory exam: PRESENT: clear to auscultation teddy. ABSENT: rales, rhonchi, wheezes Cardiovascular exam: PRESENT: RRR. ABSENT: diastolic murmur, rubs, systolic murmur Pulses: PRESENT: normal dorsalis pedis pul Vascular exam: PRESENT: normal capillary refill GI/Abdominal exam: PRESENT: normal bowel sounds, soft. ABSENT: distended, guarding, mass, organolmegaly, rebound, tenderness Rectal exam: PRESENT: deferred Extremities exam: PRESENT: full ROM. ABSENT: calf tenderness, clubbing, pedal edema Neurological exam: PRESENT: alert, awake, oriented to person, oriented to place , oriented to time, oriented to situation, CN II-XII grossly intact. ABSENT: motor sensory deficit Psychiatric exam: PRESENT: appropriate affect, normal mood. ABSENT: homicidal ideation, suicidal ideation Skin exam: PRESENT: dry, intact, warm. ABSENT: cyanosis, rash Results Laboratory Results: 11/06/17 05:04 11/06/17 05:04 11/06/17 11/06/17 05:04 05:04 WBC 9.3 RBC 4.06 Hgb 12.0 Hct 35.6 L MCV 88 MCH 29.5 MCHC 33.7 RDW 15.3 H Plt Count 367 Sodium 140.7 Potassium 3.9 Chloride 108 H Carbon Dioxide 26 Anion Gap 7 BUN 19 Creatinine 0.99 Est GFR ( Amer) > 60 Est GFR (Non-Af Amer) > 60 Glucose 60 L Calcium 9.4 Total Bilirubin 0.4 AST 50 H ALT 44 Alkaline Phosphatase 105 Total Protein 7.0 Albumin 3.9 Lipase 233.3 Impressions: KUB X-Ray 11/05/17 00:00 IMPRESSION: NO RADIOGRAPHIC EVIDENCE FOR ACUTE ABDOMINAL DISEASE. Qualifiers - * PATIENT BEING DISCHARGED WITH ANY OF THE FOLLOWING DIAGNOSIS: No
[2017-11-06] MEDS: LIPASE/PROTEASE/AMYLASE 1 CAP CAPSULE.DR PO SCH (09:42)
[2017-11-06] MEDS: AMLODIPINE BESYLATE 5 MG TABLET PO SCH (09:44)
[2017-11-06] MEDS: METOPROLOL SUCCINATE 50 MG TAB.SR.24H PO SCH (09:44)
[2017-11-06] MEDS: LISINOPRIL 10 MG TABLET PO SCH (09:44)
[2017-11-06] MEDS ORDERED: DIVALPROEX SODIUM 125 MG CAP.SPRINK PO SCH (10:00)
[2017-11-06] MEDS: INSULIN GLARGINE,HUM.REC.ANLOG 300 UNIT/3 ML INSULN.PEN SUBCUT SCH (10:19)
== END 2017-11-06 11:18 | disposition home or self-care (01) ==
LOC: ER 09:10 → INTOOBSV 11:24 → EH 11:24 → 4N 13:13
PROVIDERS: ADMIT Family Medicine; ATTEND Family Medicine
DX: R10.13 Epigastric pain (principal); K85.80 Other acute pancreatitis without necrosis or infection; K86.0 Alcohol-induced chronic pancreatitis; I10 Essential (primary) hypertension; E11.65 Type 2 diabetes mellitus with hyperglycemia; F17.210 Nicotine dependence, cigarettes, uncomplicated; F12.10 Cannabis abuse, uncomplicated; Z79.4 Long term (current) use of insulin; Z90.710 Acquired absence of both cervix and uterus; Z82.49 Family history of ischemic heart disease and other diseases of the circulatory system; Z83.3 Family history of diabetes mellitus
CPT/HCPCS: 99285; 96361; 96374; 96375; 36415 ×2; 82962 ×2; 80307 ×2; 82140; 83690 ×2; 85025; 85027; 80053 ×2; 81001; 83036; 80061; 74018; G0378 ×3; J3010; J1815 ×2; J0360; J1885; J3490 ×8; J2405

== ENCOUNTER 2017-11-09 07:32 | Inpatient (IN) | payer MEDICAID ==
--- NOTE | 2017-11-09 07:46 | ER Document Report ---
ED General - General Stated Complaint: BLOOD SUGAR ISSUES Time Seen by Provider: 11/09/17 07:40 TRAVEL OUTSIDE OF THE [place] IN LAST 30 DAYS: No - HPI Notes: Patient is a 37-year-old female that presents to the emergency department for chief complaint of hypoglycemia and seizure. Patient presented by EMS for hypoglycemia. Per EMS her blood glucose level was in the 20s. She received 2 IM glucagon which improved her glucose to 70. Upon arrival in the emergency room blood sugar was greater than 140. EMS reports patient had a seizure while in route that was self-limited. She states she has a history of seizure disorders and was started on a new medication 1 week ago. She does not know the name of the new medication. She is an insulin-dependent diabetic and denies any recent change in her insulin. Patient is complaining of abdominal pain and chest pain. HPI is limited because of patient's current postictal state. Past Medical History: Seizures, diabetes, HTN, chronic pancreatitis Past Surgical History: Reviewed in chart Social History: Daily marijuana, daily tobacco, denies alcohol Family History: Reviewed and noncontributory for presenting illness Allergies: Reviewed, see documented allergy list. REVIEW OF SYSTEMS: CONSTITUTIONAL : No fever No chills No diaphoresis No recent illness EENT: No vision changes No congestion No sore throat CARDIOVASCULAR: chest pain No palpitations RESPIRATORY: No shortness of breath No cough No difficulty breathing GASTROINTESTINAL: abdominal pain No nausea No vomiting No diarrhea GENITOURINARY: No dysuria No hematuria No difficulty urinating MUSCULOSKELETAL: No back pain No leg pain No arm pain SKIN: No rashes No lesions LYMPHATIC: No swollen, enlarged glands. NEUROLOGICAL: No lightheadedness No headache No weakness No paresthesias Seizure PSYCHIATRIC: No anxiety No depression PHYSICAL EXAMINATION: Vital signs reviewed, nursing noted reviewed. GENERAL: Appears post ictal, tremulous HEAD: Atraumatic, normocephalic. EYES: Eyes appear normal, extraocular movements intact, sclera anicteric, conjunctiva are normal. ENT: Lower lip mucosal surface laceration with no active bleeding, no vermilion border involvement. No lingular laceration. Nares patent, oropharynx clear without exudates. Moist mucous membranes. NECK: Normal range of motion, supple without lymphadenopathy LUNGS: Breath sounds clear to auscultation bilaterally and equal. No wheezes rales or rhonchi. HEART: Regular rate and rhythm without murmurs ABDOMEN: Soft, mild diffuse tenderness, normoactive bowel sounds. No rebound, guarding, or rigidity. No masses appreciated. EXTREMITIES: Nontender, good range of motion, no pitting or edema. NEUROLOGICAL: No focal neurological deficits. Moves all extremities spontaneously Motor and sensory grossly intact on exam. PSYCH: Normal mood, normal affect. SKIN: Warm, Dry, normal turgor, no rashes or lesions noted on exposed skin - Related Data Allergies/Adverse Reactions: hydrocodone [From [facility]] Allergy (Verified 11/05/17 09:11) morphine Allergy (Verified 11/05/17 09:11) Past Medical History - Social History Smoking Status: Never Smoker Family History: Reviewed & Not Pertinent, DM, Hypertension - Past Medical History Cardiac Medical History: Reports: Hx Hypercholesterolemia, Hx Hypertension Pulmonary Medical History: Denies: Hx COPD Endocrine Medical History: Reports: Hx Diabetes Mellitus Type 1, Hx Diabetes Mellitus Type 2 Renal/ Medical History: Denies: Hx End Stage Renal Disease, Hx Peritoneal Dialysis GI Medical History: Reports: Hx Cirrhosis Musculoskeletal Medical History: Denies Hx Arthritis Skin Medical History: Denies Hx Eczema, Denies Hx Psoriasis Psychiatric Medical History: Denies: Hx Dementia, Hx Depression Past Surgical History: Reports: Hx Section - x3, Hx Hysterectomy Review of Systems - Review of Systems Notes: Dictated Physical Exam - Notes Notes: Dictated Course - Re-evaluation Re-evalutation: 11/09/17 07:45 vitals reviewed. Nursing notes reviewed. Patient was tremulous and appeared postictal upon arrival. Blood glucose has stabilized at 140. She is answering questions appropriately. 11/09/17 07:49 Chart review shows patient was started on Depakote at discharge, Depakote level will be obtained. Seizure precautions have been started. Patient placed on telemetry monitoring. 11/09/17 07:54 Patient placed on Velia hugger for hypothermia on rectal temp. lactate and blood cultures added for possible sepsis. 11/09/17 09:37 Patient reevaluated and is awake and conversational. She has not had any further seizure activity. She is now recovered from postictal state. Patient had 3 seizures this morning without complete recovery from postictal state consistent with status epilepticus. I did discuss her care with Dr. Wallace and Sarahi Moulton NP. Sarahi Moulton SLEEP TECH feel she would be better suited admitted at a facility with neurology. Patient will be transferred to [facility] for neurology evaluation. I discussed patient's care with Dr. Dumont who accepted transfer. Patient's blood glucose did stabilize well in the emergency room and did not require further treatment. Her lab work is unremarkable. Urinalysis and chest x-ray negative and I do not suspect her hypothermia is from infection or sepsis. Patient's core temperature is now 97.2 and she is feeling much better. Laboratory 11/09/17 11/09/17 11/09/17 07:37 07:41 07:41 WBC 11.4 H RBC 4.28 Hgb 12.5 Hct 37.7 MCV 88 MCH 29.3 MCHC 33.3 RDW 15.5 H Plt Count 352 Seg Neutrophils % 68.3 Lymphocytes % 22.8 Monocytes % 6.5 Eosinophils % 1.0 Basophils % 1.4 Absolute Neutrophils 7.8 Absolute Lymphocytes 2.6 Absolute Monocytes 0.7 Absolute Eosinophils 0.1 Absolute Basophils 0.2 Sodium 142.1 Potassium 3.8 Chloride 107 Carbon Dioxide 30 Anion Gap 5 BUN 16 Creatinine 0.95 Est GFR ( Amer) > 60 Est GFR (Non-Af Amer) > 60 Glucose 77 POC Glucose 142 H Calcium 9.8 Total Bilirubin 0.5 Direct Bilirubin 0.5 H Neonat Total Bilirubin Not Reportable Neonat Direct Bilirubin Not Reportable Neonat Indirect Bili Not Reportable AST 30 ALT 29 Alkaline Phosphatase 115 Troponin I Total Protein 7.1 Albumin 3.8 Lipase 150.3 Urine Color Urine Appearance Urine pH Ur Specific [place] Urine Protein Urine Glucose (UA) Urine Ketones Urine Blood Urine Nitrite Urine Bilirubin Urine Urobilinogen Ur Leukocyte Esterase Urine RBC (Auto) Urine Ascorbic Acid Urine HCG, Qual Urine Opiates Screen Urine Methadone Screen Ur Barbiturates Screen Valproic Acid 62.5 Ur Phencyclidine Scrn Ur Amphetamines Screen U Benzodiazepines Scrn Urine Cocaine Screen U Marijuana (THC) Screen Serum Alcohol 11/09/17 11/09/17 11/09/17 07:41 07:41 07:55 WBC RBC Hgb Hct MCV MCH MCHC RDW Plt Count Seg Neutrophils % Lymphocytes % Monocytes % Eosinophils % Basophils % Absolute Neutrophils Absolute Lymphocytes Absolute Monocytes Absolute Eosinophils Absolute Basophils Sodium Potassium Chloride Carbon Dioxide Anion Gap BUN Creatinine Est GFR ( Amer) Est GFR (Non-Af Amer) Glucose POC Glucose Calcium Total Bilirubin Direct Bilirubin Neonat Total Bilirubin Neonat Direct Bilirubin Neonat Indirect Bili AST ALT Alkaline Phosphatase Troponin I < 0.012 Total Protein Albumin Lipase Urine Color COLORLESS Urine Appearance CLEAR Urine pH 7.0 Ur Specific [place] 1.009 Urine Protein 100 H Urine Glucose (UA) 50 H Urine Ketones NEGATIVE Urine Blood NEGATIVE Urine Nitrite NEGATIVE Urine Bilirubin NEGATIVE Urine Urobilinogen NEGATIVE Ur Leukocyte Esterase NEGATIVE Urine RBC (Auto) 0 Urine Ascorbic Acid NEGATIVE Urine HCG, Qual NEGATIVE Urine Opiates Screen Urine Methadone Screen Ur Barbiturates Screen Valproic Acid Ur Phencyclidine Scrn Ur Amphetamines Screen U Benzodiazepines Scrn Urine Cocaine Screen U Marijuana (THC) Screen Serum Alcohol < 10 11/09/17 07:55 WBC RBC Hgb Hct MCV MCH MCHC RDW Plt Count Seg Neutrophils % Lymphocytes % Monocytes % Eosinophils % Basophils % Absolute Neutrophils Absolute Lymphocytes Absolute Monocytes Absolute Eosinophils Absolute Basophils Sodium Potassium Chloride Carbon Dioxide Anion Gap BUN Creatinine Est GFR ( Amer) Est GFR (Non-Af Amer) Glucose POC Glucose Calcium Total Bilirubin Direct Bilirubin Neonat Total Bilirubin Neonat Direct Bilirubin Neonat Indirect Bili AST ALT Alkaline Phosphatase Troponin I Total Protein Albumin Lipase Urine Color Urine Appearance Urine pH Ur Specific [place] Urine Protein Urine Glucose (UA) Urine Ketones Urine Blood Urine Nitrite Urine Bilirubin Urine Urobilinogen Ur Leukocyte Esterase Urine RBC (Auto) Urine Ascorbic Acid Urine HCG, Qual Urine Opiates Screen NEGATIVE Urine Methadone Screen NEGATIVE Ur Barbiturates Screen NEGATIVE Valproic Acid Ur Phencyclidine Scrn NEGATIVE Ur Amphetamines Screen NEGATIVE U Benzodiazepines Scrn NEGATIVE Urine Cocaine Screen NEGATIVE U Marijuana (THC) Screen UNCONFIRMED POSITIVE Serum Alcohol Chest X-Ray 11/09/17 07:40 IMPRESSION: NO ACUTE RADIOGRAPHIC FINDING IN THE CHEST. - Laboratory Result Diagrams: 11/09/17 07:41 11/09/17 07:41 Laboratory results interpreted by me: 11/09/17 11/09/17 11/09/17 07:37 07:41 07:41 WBC 11.4 H RDW 15.5 H POC Glucose 142 H Direct Bilirubin 0.5 H Urine Protein Urine Glucose (UA) 11/09/17 07:55 WBC RDW POC Glucose Direct Bilirubin Urine Protein 100 H Urine Glucose (UA) 50 H Discharge - Discharge Clinical Impression: Hypoglycemia, Status epilepticus Lip laceration Qualifiers: Encounter type: initial encounter Qualified Code(s): S01.511A - Laceration without foreign body of lip, initial encounter Hypothermia Qualifiers: Encounter type: initial encounter Qualified Code(s): T68.XXXA - Hypothermia, initial encounter Condition: Stable Disposition: [facility]
[2017-11-09] MEDS ORDERED: NORMAL SALINE 1000 ML 1,000 ML IV ONE (07:53)
[2017-11-09 07:59] LABS: ABSOLUTE BASOPHILS # (AUTO) 0.2 10^3/uL (0.0-0.2); ABSOLUTE EOSINOPHILS # (AUTO) 0.1 10^3/uL (0.0-0.6); ABSOLUTE LYMPHOCYTES (AUTO) 2.6 10^3/uL (0.5-4.7); ABSOLUTE MONOCYTES (AUTO) 0.7 10^3/uL (0.1-1.4); ABSOLUTE NEUT (AUTO) 7.8 10^3/uL (1.7-8.2); BASOPHILS % (AUTO) 1.4 % (0-2); HEMATOCRIT 37.7 % (36.0-47.0); HEMOGLOBIN 12.5 g/dL (12.0-15.5); LYMPHOCYTES % (AUTO) 22.8 % (13-45); MEAN CORPUSCULAR HEMOGLOBIN 29.3 pg (27.0-33.4); MEAN CORPUSCULAR HGB CONC 33.3 g/dL (32.0-36.0); MEAN CORPUSCULAR VOLUME 88 fl (80-97); MONOCYTES % (AUTO) 6.5 % (3-13); PLATELET COUNT 352 10^3/uL (150-450); RED BLOOD COUNT 4.28 10^6/uL (3.72-5.28); RED CELL DISTRIBUTION WIDTH 15.5 % (11.5-14.0); SEGMENTED NEUTROPHILS % (AUTO) 68.3 % (42-78); TOTAL CELLS COUNTED % (AUTO) 100 %; WHITE BLOOD COUNT 11.4 10^3/uL (4.0-10.5)
[2017-11-09 08:13] LABS: ALANINE AMINOTRANSFERASE 29 U/L (9-52); ALBUMIN 3.8 g/dL (3.5-5.0); ALKALINE PHOSPHATASE 115 U/L (38-126); ANION GAP 5 (5-19); ASPARTATE AMINO TRANSFERASE 30 U/L (14-36); BILIRUBIN,DIRECT 0.5 mg/dL (0.0-0.4); BILIRUBIN,TOTAL 0.5 mg/dL (0.2-1.3); BLOOD UREA NITROGEN 16 mg/dL (7-20); CALCIUM 9.8 mg/dL (8.4-10.2); CARBON DIOXIDE 30 mmol/L (22-30); CHLORIDE 107 mmol/L (98-107); GLUCOSE 77 mg/dL (75-110); LIPASE 150.3 U/L (23-300); POTASSIUM 3.8 mmol/L (3.6-5.0); SODIUM 142.1 mmol/L (137-145); TOTAL PROTEIN 7.1 g/dL (6.3-8.2)
[2017-11-09 09:02] LABS: APPEARANCE,URINE CLEAR; BILIRUBIN,URINE NEGATIVE (NEGATIVE); COLOR,URINE COLORLESS; GLUCOSE, URINE 50 mg/dL (NEGATIVE); KETONES,URINE NEGATIVE (NEGATIVE); LEUKOCYTE ESTERASE,URINE NEGATIVE (NEGATIVE); NITRITE,URINE NEGATIVE (NEGATIVE); PROTEIN,URINE 100 mg/dL (NEGATIVE); URINE SPECIFIC GRAVITY 1.009; UROBILINOGEN,URINE NEGATIVE mg/dL (<2.0)
[2017-11-09 09:20] LABS: URINE AMPHETAMINES SCREEN NEGATIVE; URINE BARBITURATES SCREEN NEGATIVE; URINE BENZODIAZEPINES SCREEN NEGATIVE; URINE COCAINE SCREEN NEGATIVE; URINE MARIJUANA (THC) SCREEN UNCONFIRMED POSITIVE; URINE METHADONE SCREEN NEGATIVE; URINE PHENCYCLIDINE SCREEN NEGATIVE
--- NOTE | 2017-11-09 09:21 | RADIOLOGY REPORT (SQ) ---
EXAM DESCRIPTION: CHEST SINGLE VIEW COMPLETED DATE/TIME: 11/09/2017 8:53 am REASON FOR STUDY: cough COMPARISON: AP chest 10/05/2017 EXAM PARAMETERS: NUMBER OF VIEWS: One view. TECHNIQUE: Single frontal radiographic view of the chest acquired. RADIATION DOSE: NA LIMITATIONS: None. FINDINGS: LUNGS AND PLEURA: No opacities, masses or pneumothorax. No pleural effusion. MEDIASTINUM AND HILAR STRUCTURES: No masses. Contour normal. HEART AND VASCULAR STRUCTURES: Heart normal in size. Normal vasculature. BONES: No acute findings. HARDWARE: None in the chest. OTHER: No other significant finding. IMPRESSION: NO ACUTE RADIOGRAPHIC FINDING IN THE CHEST. TECHNICAL DOCUMENTATION: JOB ID: [id number] 1971 [employer]- All Rights Reserved Reading location - IP/workstation name: [email or web address]
--- NOTE | 2017-11-09 11:13 | EKG REPORT ---
SEVERITY:- ABNORMAL ECG - SINUS RHYTHM CONSIDER LEFT VENTRICULAR HYPERTROPHY : Confirmed by: Valentina Fierro 09-Nov-2017 11:12:39
[2017-11-09] MEDS ORDERED: KETOROLAC TROMETHAMINE INJ/PF 30 MG/1 ML SDV IV ONE (12:19)
[2017-11-09] MEDS ORDERED: AMLODIPINE BESYLATE 5 MG TABLET PO ONE (16:56)
[2017-11-09] MEDS ORDERED: DEXTROSE 50%-WATER SYRINGE 12.5 GM/25 ML DOSE IV PRN (17:12)
[2017-11-09] MEDS ORDERED: DEXTROSE 50%-WATER SYRINGE 25 GM/50 ML DOSE IV PRN (17:12)
[2017-11-09] MEDS ORDERED: DEXTROSE 40% GEL 15 GM TUBE PO PRN (17:12)
[2017-11-09] MEDS ORDERED: DEXTROSE 40% GEL 15 GM TUBE X 2 PO PRN (17:12)
[2017-11-09] MEDS ORDERED: GLUCAGON,HUMAN RECOMB 1 MG INJ IM PRN (17:12)
[2017-11-09] MEDS ORDERED: ACETAMINOPHEN 325 MG TABLET PO PRN (20:06)
[2017-11-09] MEDS ORDERED: INSULIN GLARGINE,HUM.REC.ANLOG 1,000 UNIT/10 ML UNIT SUBCUT SCH (20:15)
[2017-11-09] MEDS: DIVALPROEX SODIUM 125 MG CAP.SPRINK PO SCH (20:44)
[2017-11-09] MEDS: KETOROLAC TROMETHAMINE INJ/PF 30 MG/1 ML SDV IV PRN (20:46)
[2017-11-09] MEDS ORDERED: INSULIN REG, HUMAN 100 UNIT/ML 3 ML VIAL (PYX) SUBCUT ONE (22:05)
[2017-11-09] MEDS: INSULIN REG, HUMAN 100 UNIT/ML 3 ML VIAL (PYX) SUBCUT PRN (22:14)
--- NOTE | 2017-11-09 22:15 | ER Document Report ---
Doctor's Note Notes: 11/09/17 22:14 Patient still pending transfer divided. Patient's home medications have been ordered because of the hypoglycemic episode did decrease the patient's long- acting being insulin in half to 15 units. Patient placed on a sliding scale. Patient continues to intake orally with increasing sugars last one being over 400 recommended 20 units of insulin patient refused we will continue with sliding scale per patient request
--- NOTE | 2017-11-10 03:18 | ER Document Report ---
Doctor's Note Notes: 11/10/17 03:18 Request to recheck the patient's blood sugar being that her last blood sugar had ran high and she had received the 15 units of insulin. Patient's blood sugar is now 28. We have given her oral glucose. She is awake and alert. I will also give her some crackers and complex carbohydrates to eat and we will recheck her sugar. 11/10/17 06:30 His blood sugar has normalized. She did become hypothermic because of hypoglycemia. We do have a bear hugger on her and her temperature is improving. Dictation of this chart was performed using voice recognition software; therefore, there may be some unintended grammatical errors.
[2017-11-10] MEDS ORDERED: DEXTROSE 50%-WATER 25 GM/50 ML DISP.SYRIN IV ONE (04:05)
[2017-11-10] MEDS: INSULIN REG, HUMAN 100 UNIT/ML 3 ML VIAL (PYX) SUBCUT PRN ×4 (07:38→21:41)
--- NOTE | 2017-11-10 10:14 | ER Document Report ---
Doctor's Note Notes: 11/10/17 10:09 Rounds: Chart reviewed and patient interviewed. Summary of history: Patient has a history of insulin-dependent diabetes and seizure disorder. Patient says that she was in a hospital in [place] from March through May of this year for these conditions. She was discharged from the hospital in [place] without any seizure medicine, but in June of this year, she obtained Topamax 125 mg, 2 tabs 3 times daily to take for her seizures. She is on Lantus insulin, I believe 30 units daily, plus a sliding scale insulin, for her diabetes. She came to this emergency department yesterday morning after having had a seizure and found to be hypoglycemic by EMS. She also has hypertension. Patient has been admitted to this hospital numerous times since her moving to this area in July. She is currently complaining of pain in the right back/ flank region. She has had fluctuating blood sugars since her arrival here yesterday. Initial treating physician ordered Lantus at half of the dose that the patient normally takes so she is now on 15 units ordered daily. I am finding out this morning that the patient apparently was given her Lantus, half dose, last night at bedtime, because it was ordered daily and apparently had not been given. During the night, patient had several low blood sugars and also was noted to have a seizure. She was also found to be hypothermic and a bear hugger was placed on her. Chest x-ray normal. Urine essentially normal. Lab studies all essentially normal. WBC was 11,400, but no other significant lab abnormalities. Vital signs have been normal except for blood pressure slightly high, this morning 171 /105. [facility] was contacted and agreed to accept the patient, but they do not have any beds and we do not know when they will get a bed and inpatient. Patient is now on the waiting list to be transferred to [facility]. I believe this patient can be taken care of in our hospital at this time. We do not know how long it will take to get a bed at [facility], even though she is been accepted in transfer. I have reconsulted with the hospitalist and she will be reevaluated for consideration of admission here. Carolynn Hogan MD 11/10/17 10:25 11/10/17 18:37 In [place] today and the hospitalist has agreed to admit the patient to [facility] for further care here.
[2017-11-10] MEDS: DIVALPROEX SODIUM 125 MG CAP.SPRINK PO SCH ×3 (10:15→19:59)
[2017-11-10] MEDS: KETOROLAC TROMETHAMINE INJ/PF 30 MG/1 ML SDV IV PRN ×2 (10:35→22:21)
[2017-11-10] MEDS ORDERED: PROMETHAZINE HCL INJ 25 MG/1 ML VIAL IV PRN (18:26)
--- NOTE | 2017-11-10 18:26 | PDOC H&P ---
History of Present Illness Admission Date/PCP: 11/10/2017 Patient complains of: Seizure, hypoglycemia History of Present Illness: JJ HOFFMAN is a 37 year old female diabetes, hypertension, CKD, illicit drug use, chronic alcoholic pancreatitis and new onset seizure disorder since June 2017. Patient has had several ED admissions due to recurrent pancreatitis, altered mental status, DKA and seizures since June 2017 for seizure unfortunately patient has never been evaluated by neurologist. MRI of brain on 10/08/2017 showed mild spotty areas of white matter changes left greater than right which is often related to small vessel vasculopathy negative for stroke. Patient also had an EEG on 10/08/2015 which was read as abnormal and consistent with diffuse cerebral dysfunction however no elliptic form abnormalities were noted. Patient was brought in by EMS after witnessed seizure by the family. Patient stated that as per mother patient has had several convulsions but she herself does not remember anything. She states when she woke up she was already in the hospital. Blood sugar was checked by EMS which showed to be an 20s she received 2 intramuscular shots of glucagon which brought her glucose back to 70. Patient has uncontrolled diabetes with labile blood sugar possibly due to chronic recurrent pancreatitis. She is stating that she was started on Depakote about a week ago here at [facility] in ED for her seizure evaluation. She states she is very compliant with with her medications and never had any hypoglycemia before. She believes that there is hypoglycemia is due to Depakote. Patient has been waiting to be transferred to [facility] where she could be evaluated by neurologist but unfortunately she has been in ED for more than 30 hours. Patient was restarted on her insulin last night at ED she was given 15 units of Lantus. In the morning she had another episode of unwitnessed seizure and hypoglycemia, blood sugar in 20s Hospitalist was consulted for admission. Patient has an underlying seizure disorder as well as hypoglycemia but unfortunately she has not been evaluated by neurologist or pet handler. In the prior visit and appointment was made for her to see an pet handler but unfortunately she has not been able to keep her appointment. It was decided to admit the patient while while waiting to be transferred to [facility]. On my encounter with the patient in the morning and evening patient is sitting in the bed alert and oriented and very cooperative with physical examination and providing history. She is complaining of epigastric abdominal pain. She states she has been having this pain due to history of her chronic recurrent alcoholic pancreatitis. While in ED she has been given Toradol however she states is not helping. She is allergic to morphine and hydrocodone but she states she was given high Dilaudid in the last admission which helped her. She denies any fever, chest pain, shortness of breath, nausea, vomiting, diarrhea, constipation or any urinary symptoms. She refuses to take Tylenol or Toradol for her abdominal pain stating they did not help. Past Medical History Cardiac Medical History: Reports: Hyperlipidema, Hypertension Pulmonary Medical History: Denies: Chronic Obstructive Pulmonary Disease (COPD) Endocrine Medical History: Reports: Diabetes Mellitus Type 1, Diabetes Mellitus Type 2 Renal/ Medical History: Denies: End Stage Renal Disease GI Medical History: Reports: Cirrhosis Musculoskeltal Medical History: Denies: Arthritis Skin Medical History: Denies: Eczema, Psoriasis Psychiatric Medical History: Denies: Dementia, Depression Hematology: Denies: Anemia Past Surgical History Past Surgical History: Reports: Section - x3, Hysterectomy Social History Smoking Status: Never Smoker Frequency of Alcohol Use: None Hx Recreational Drug Use: Yes Drugs: Marijuana Hx Prescription Drug Abuse: No Family History Family History: Reviewed & Not Pertinent, DM, Hypertension Parental Family History Reviewed: Yes Children Family History Reviewed: Yes Sibling(s) Family History Reviewed.: Yes Medication/Allergy Home Medications: Amlodipine Besylate [Norvasc 5 mg Tablet] 5 mg PO BID 11/05/17 Divalproex Sodium [Depakote Sprinkle 125 mg Capsule] 250 mg PO TID 11/05/17 Insulin Aspart [Novolog Flexpen] 0 units SQ .PERSLIDINGSCALE 11/05/17 Insulin Glargine,Hum.rec.anlog [Lantus Solostar] 30 units SQ DAILY 11/05/17 Lisinopril [Zestril] 40 mg PO DAILY 11/05/17 Metoprolol Succinate [Toprol Xl 50 mg Tab.sr] 50 mg PO BID 11/05/17 Lipase/Protease/Amylase [Pancreaze-10 Capsule.] 1 cap PO BIDACBS #120 capsule. 11/06/17 Oxycodone HCl/Acetaminophen [Percocet 5-325 mg Tablet] 1 tab PO Q6HP PRN #15 tablet 11/06/17 Allergies/Adverse Reactions: hydrocodone [From [place]] Allergy (Verified 11/05/17 09:11) morphine Allergy (Verified 11/05/17 09:11) Review of Systems All systems: reviewed and no additional remarkable complaints except as stated - As per HPI. Physical Exam Vital Signs: Temp Pulse Resp BP Pulse Ox 95.6 F L 19 174/101 H 98 11/10/17 05:35 11/10/17 08:01 11/10/17 14:32 11/10/17 14:32 Intake & Output 11/09/17 11/10/17 11/11/17 06:59 06:59 06:59 Intake Total 1000 Output Total 3100 Balance -2100 Weight 63.928 kg General appearance: PRESENT: no acute distress, well-developed, well-nourished Head exam: PRESENT: atraumatic, normocephalic Eye exam: PRESENT: conjunctiva pink, EOMI, PERRLA. ABSENT: scleral icterus Ear exam: PRESENT: normal external ear exam Mouth exam: PRESENT: other - Left lower lip swelling and erythema. Patient states she bit her tongue today when she had a seizure. Neck exam: ABSENT: carotid bruit, JVD, lymphadenopathy, thyromegaly Respiratory exam: PRESENT: clear to auscultation teddy. ABSENT: rales, rhonchi, wheezes Cardiovascular exam: PRESENT: RRR. ABSENT: diastolic murmur, rubs, systolic murmur Pulses: PRESENT: normal dorsalis pedis pul GI/Abdominal exam: PRESENT: normal bowel sounds, soft, tenderness. ABSENT: distended, guarding, mass, organolmegaly, rebound Extremities exam: PRESENT: full ROM. ABSENT: calf tenderness, clubbing, pedal edema Musculoskeletal exam: PRESENT: ambulatory, full ROM, normal inspection, other Neurological exam: PRESENT: alert, awake, oriented to person, oriented to place , oriented to time, oriented to situation, CN II-XII grossly intact. ABSENT: motor sensory deficit Psychiatric exam: PRESENT: appropriate affect, normal mood. ABSENT: homicidal ideation, suicidal ideation Skin exam: PRESENT: dry, intact, warm. ABSENT: cyanosis, rash Results Laboratory Results: 11/09/17 07:41 11/10/17 03:20 11/10/17 03:20 Glucose 24 L* 11/09/17 07:41 Troponin I < 0.012 Impressions: Chest X-Ray 11/09/17 07:40 IMPRESSION: NO ACUTE RADIOGRAPHIC FINDING IN THE CHEST. Assessment & Plan - Diagnosis (1) Seizure disorder Is this a current diagnosis for this admission?: Yes Plan: Hold Depakote. Start on Keppra and as needed benzos. Seizure precaution. Patient is pending transfer [facility] where she could hopefully get evaluated by a neurologist. Meanwhile will order an EEG while here in [place]. (2) Hypoglycemia Is this a current diagnosis for this admission?: Yes Plan: Frequent snacking. Patient has a very labile blood sugars possibly due to recurrent chronic pancreatitis. Will hold long-acting insulin and start her on sliding scale insulin. Continue Accu-Chek. Patient has never been evaluated by an pet handler. Once advised and hopefully she can get evaluated by an pet handler. (3) Lip laceration Qualifiers: Encounter type: initial encounter Qualified Code(s): S01.511A - Laceration without foreign body of lip, initial encounter Is this a current diagnosis for this admission?: Yes Plan: Left lower lip laceration due to seizure prior to admission. Wound care and pain management. (4) Hypertension Qualifiers: Is this a current diagnosis for this admission?: Yes Plan: Restart home medication adjust dosage as needed. Monitor vitals. 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 Start sliding scale. Accu-Chek. Diabetic diet. (6) Hx of pancreatitis Is this a current diagnosis for this admission?: No Plan: History of chronic recurrent pancreatitis patient has been admitted several times to ED for recurrent pancreatitis. Patient states she is not drinking anymore she is very compliant with her medications. Patient is allergic to hydrocodone and morphine. Avoid tramadol as it may, cause seizure. As needed Dilaudid, Tylenol, NSAIDs. Restart Pancrease (7) Anemia Qualifiers: Anemia type: due to chronic kidney disease Is this a current diagnosis for this admission?: Yes Plan: Normocytic most likely due to chronic CKD. Stable. Denies any external source of bleeding. (8) Chronic kidney disease Qualifiers: Chronic kidney disease stage: stage 2 (mild) Qualified Code(s): N18.2 - Chronic kidney disease, stage 2 (mild) Is this a current diagnosis for this admission?: Yes Plan: Most likely secondary to chronic uncontrolled hypertension or and diabetes. Monitor electrolytes and correct as needed. H&H stable. Outpatient nephrology follow-up.
[2017-11-10] MEDS ORDERED: DEXTROSE 50%-WATER 25 GM/50 ML DISP.SYRIN IV PRN ×2 (18:37)
[2017-11-10] MEDS ORDERED: GLUCAGON,HUMAN RECOMB 1 MG INJ IM PRN (18:37)
[2017-11-10] MEDS ORDERED: DEXTROSE 40% GEL 15 GM TUBE PO PRN ×2 (18:37)
[2017-11-10] MEDS: LEVETIRACETAM 500 MG TABLET PO SCH (19:59)
[2017-11-10] MEDS ORDERED: METOPROLOL TARTRATE PF/INJ 5 MG/5 ML SDV IV PRN (21:45)
[2017-11-10] MEDS: HEPARIN SOD (PORCINE) 5,000 UNIT/ML 1 ML SYRINGE SUBCUT SCH (22:21)
[2017-11-10] MEDS: LORAZEPAM INJ 2 MG/1 ML VIAL IV PRN (22:21)
[2017-11-10] MEDS: NORMAL SALINE 1000 ML 1,000 ML IV PRN (22:31)
[2017-11-11] MEDS: HYDROMORPHONE HCL INJ/PF 2 MG/ML AMPULE IV SCH ×2 (03:27→05:49)
[2017-11-11] MEDS: HEPARIN SOD (PORCINE) 5,000 UNIT/ML 1 ML SYRINGE SUBCUT SCH ×3 (05:41→21:00)
[2017-11-11] MEDS: LANSOPRAZOLE 15 MG TAB.RAP.DR PO SCH ×2 (05:43→17:10)
[2017-11-11] MEDS: KETOROLAC TROMETHAMINE INJ/PF 30 MG/1 ML SDV IV PRN (05:45)
[2017-11-11] MEDS: LORAZEPAM INJ 2 MG/1 ML VIAL IV PRN (05:47)
[2017-11-11 06:09] LABS: ABSOLUTE BASOPHILS # (AUTO) 0.1 10^3/uL (0.0-0.2); ABSOLUTE EOSINOPHILS # (AUTO) 0.1 10^3/uL (0.0-0.6); ABSOLUTE MONOCYTES (AUTO) 0.6 10^3/uL (0.1-1.4); EOSINOPHILS % (AUTO) 1.2 % (0-6); HEMOGLOBIN 10.7 g/dL (12.0-15.5); LYMPHOCYTES % (AUTO) 33.7 % (13-45); MEAN CORPUSCULAR HEMOGLOBIN 29.8 pg (27.0-33.4); MEAN CORPUSCULAR HGB CONC 34.5 g/dL (32.0-36.0); MEAN CORPUSCULAR VOLUME 86 fl (80-97); MONOCYTES % (AUTO) 6.8 % (3-13); PLATELET COUNT 295 10^3/uL (150-450); RED BLOOD COUNT 3.59 10^6/uL (3.72-5.28); RED CELL DISTRIBUTION WIDTH 15.3 % (11.5-14.0); SEGMENTED NEUTROPHILS % (AUTO) 57.3 % (42-78); TOTAL CELLS COUNTED % (AUTO) 100 %; WHITE BLOOD COUNT 8.8 10^3/uL (4.0-10.5)
[2017-11-11 06:25] LABS: ALANINE AMINOTRANSFERASE 28 U/L (9-52); ALBUMIN 3.1 g/dL (3.5-5.0); ALKALINE PHOSPHATASE 104 U/L (38-126); ANION GAP 8 (5-19); ASPARTATE AMINO TRANSFERASE 17 U/L (14-36); BILIRUBIN,DIRECT 0.2 mg/dL (0.0-0.4); BILIRUBIN,TOTAL 0.3 mg/dL (0.2-1.3); BLOOD UREA NITROGEN 22 mg/dL (7-20); CALCIUM 9.3 mg/dL (8.4-10.2); CARBON DIOXIDE 27 mmol/L (22-30); CHLORIDE 104 mmol/L (98-107); GLUCOSE 130 mg/dL (75-110); POTASSIUM 4.2 mmol/L (3.6-5.0); SODIUM 138.9 mmol/L (137-145)
[2017-11-11 06:44] LABS: FREE T4 (FREE THYROXINE) 1.03 ng/dL (0.78-2.19)
[2017-11-11 06:58] LABS: THYROID STIMULATING HORMONE 1.18 uIU/mL (0.47-4.68)
[2017-11-11] MEDS: LIPASE/PROTEASE/AMYLASE 1 CAP CAPSULE.DR PO SCH ×2 (08:11→16:06)
[2017-11-11] MEDS: LISINOPRIL 10 MG TABLET PO SCH (08:11)
[2017-11-11] MEDS ORDERED: AMLODIPINE BESYLATE 5 MG TABLET PO SCH ×2 (09:00→10:00)
[2017-11-11] MEDS ORDERED: METOPROLOL SUCCINATE 50 MG TAB.SR.24H PO SCH ×2 (09:00→10:00)
[2017-11-11] MEDS: HYDROMORPHONE HCL INJ/PF 2 MG/ML AMPULE IV PRN ×3 (09:16→21:01)
[2017-11-11] MEDS ORDERED: LISINOPRIL 10 MG TABLET PO SCH (10:00)
[2017-11-11] MEDS ORDERED: (PENDING PHARMACY ID) (Lisinopril [Zestril] 40 MG) PO SCH (10:00)
--- NOTE | 2017-11-11 10:57 | EEG PRO FEE REPORT ---
EEG INTERPRETATION PATIENT NAME: JJ HOFFMAN ROOM#: [id number] ORDER#: [id number] DATE OF STUDY: 11/11/2017 : 1980 REFERRING MD: DESIREE ZAVALA M.D. MEDICATIONS: Tylenol, Norvasc, Pancreaze 10, Dextrose, Glucose, Forskolin, Dilaudid, Toradol, Prevacid, Keppra, Lisinopril, Ativan, Toprol, Lopressor, Alferon, Glucagon History This is a 37 year old right handed woman with a history of hypertension, hypercholesterolemia, diabetes, depression, cirrhosis, renal disease, pancreatitis admitted with hypoglycemia and lip laceration. This EEG was requested for discharge. EEG Interpretation This EEG was recorded in the awake and brief drowsy states. The awake EEG is characterized by a fairly well organized background with a well developed and reactive posterior dominant rhythm of 8.5-9 Hz. Drowsiness is characterized by slowing of the background rhythms. Photic stimulation resulted in no significant changes. There were no epileptiform abnormalities noted. The EKG showed a regular rhythm. EEG Impression This EEG is within normal limits. Compared to the prior EEG done on 10/07/2017 which showed generalized background slowing, it has improved. INTERPRETING PHYSICIAN: BLANCO SUTHERLAND M.D. /: MTREJI TT: [id number] ID: [id number] /: [id number] TD: [id number] JOB: [id number] cc:Landon RIZVI M.D. LUTF SROUSH, M.D. > MTDD
[2017-11-11] MEDS: LEVETIRACETAM 500 MG TABLET PO SCH ×2 (11:16→17:40)
[2017-11-11] MEDS: NORMAL SALINE 1000 ML 1,000 ML IV PRN (11:19)
[2017-11-11] MEDS: INSULIN REG, HUMAN 100 UNIT/ML 3 ML VIAL (PYX) SUBCUT PRN ×2 (12:13→17:10)
[2017-11-11] MEDS ORDERED: HYDRALAZINE HCL 25 MG TABLET PO PRN (13:47)
--- NOTE | 2017-11-11 16:05 | PDOC PROGRESS REPORT ---
Subjective Progress Note for:: 11/11/17 Subjective:: JJ HOFFMAN is a 37 year old female diabetes, hypertension, CKD, illicit drug use, chronic alcoholic pancreatitis and new onset seizure disorder since June 2017. Patient has had several ED admissions due to recurrent pancreatitis, altered mental status, DKA and seizures since June 2017 for seizure unfortunately patient has never been evaluated by neurologist. MRI of brain on 10/08/2017 showed mild spotty areas of white matter changes left greater than right which is often related to small vessel vasculopathy negative for stroke. Patient also had an EEG on 10/08/2015 which was read as abnormal and consistent with diffuse cerebral dysfunction however no elliptic form abnormalities were noted. Patient was brought in by EMS after witnessed seizure by the family. Patient stated that as per mother patient has had several convulsions but she herself does not remember anything. She states when she woke up she was already in the hospital. Blood sugar was checked by EMS which showed to be an 20s she received 2 intramuscular shots of glucagon which brought her glucose back to 70. Patient has uncontrolled diabetes with labile blood sugar possibly due to chronic recurrent pancreatitis. She is stating that she was started on Depakote about a week ago here at [facility] in ED for her seizure evaluation. She states she is very compliant with with her medications and never had any hypoglycemia before. She believes that there is hypoglycemia is due to Depakote. Patient has been waiting to be transferred to [facility] where she could be evaluated by neurologist but unfortunately she has been in ED for more than 30 hours. Patient was restarted on her insulin last night at ED she was given 15 units of Lantus. In the morning she had another episode of unwitnessed seizure and hypoglycemia, blood sugar in 20s Hospitalist was consulted for admission. Patient has an underlying seizure disorder as well as hypoglycemia but unfortunately she has not been evaluated by neurologist or perinatal tech. In the prior visit and appointment was made for her to see an perinatal tech but unfortunately she has not been able to keep her appointment. It was decided to admit the patient while while waiting to be transferred to [facility]. Patient still having labile blood glucose level. Currently Lantus is on hold and patient is receiving sliding scale insulin. She has not had any any more seizures and her abdominal pain is controlled with Dilaudid. Patient denies any nausea vomiting diarrhea, patient chest pain shortness of breath or any urinary symptoms. Reason For Visit: HYPOGLYCEMIA,SEIZURE Physical Exam Vital Signs: Temp Pulse Resp BP Pulse Ox 98.1 F 85 20 173/93 H 100 11/11/17 11:23 11/11/17 14:00 11/11/17 11:23 11/11/17 11:23 11/11/17 11:23 Intake & Output 11/10/17 11/11/17 11/12/17 06:59 06:59 06:59 Intake Total 1536 Output Total 2700 1999 Balance -2700 -464 Weight 65.4 kg General appearance: PRESENT: no acute distress, well-developed, well-nourished Head exam: PRESENT: atraumatic, normocephalic Eye exam: PRESENT: conjunctiva pink, EOMI, PERRLA. ABSENT: scleral icterus Ear exam: PRESENT: normal external ear exam Mouth exam: PRESENT: laceration - Left lower lip laceration improving., moist, tongue midline, other Neck exam: ABSENT: carotid bruit, JVD, lymphadenopathy, thyromegaly Respiratory exam: PRESENT: clear to auscultation teddy. ABSENT: rales, rhonchi, wheezes Cardiovascular exam: PRESENT: RRR. ABSENT: diastolic murmur, rubs, systolic murmur Pulses: PRESENT: normal dorsalis pedis pul Vascular exam: PRESENT: normal capillary refill GI/Abdominal exam: PRESENT: normal bowel sounds, soft, tenderness - Generalized abdominal tenderness.. ABSENT: distended, guarding, mass, organolmegaly, rebound Rectal exam: PRESENT: deferred Extremities exam: PRESENT: full ROM. ABSENT: calf tenderness, clubbing, pedal edema Neurological exam: PRESENT: alert, awake, oriented to person, oriented to place , oriented to time, oriented to situation, CN II-XII grossly intact. ABSENT: motor sensory deficit Psychiatric exam: PRESENT: appropriate affect, normal mood. ABSENT: homicidal ideation, suicidal ideation Skin exam: PRESENT: dry, intact, warm. ABSENT: cyanosis, rash Results Laboratory Results: 11/11/17 05:23 11/11/17 05:23 11/11/17 11/11/17 11/11/17 05:23 05:23 05:23 WBC 8.8 RBC 3.59 L Hgb 10.7 L Hct 31.0 L MCV 86 MCH 29.8 MCHC 34.5 RDW 15.3 H Plt Count 295 Seg Neutrophils % 57.3 Lymphocytes % 33.7 Monocytes % 6.8 Eosinophils % 1.2 Basophils % 1.0 Absolute Neutrophils 5.0 Absolute Lymphocytes 3.0 Absolute Monocytes 0.6 Absolute Eosinophils 0.1 Absolute Basophils 0.1 Sodium 138.9 Potassium 4.2 Chloride 104 Carbon Dioxide 27 Anion Gap 8 BUN 22 H Creatinine 1.08 Est GFR ( Amer) > 60 Est GFR (Non-Af Amer) 57 L Glucose 130 H Calcium 9.3 Magnesium 1.9 Total Bilirubin 0.3 AST 17 ALT 28 Alkaline Phosphatase 104 Ammonia 22.9 Total Protein 6.0 L Albumin 3.1 L TSH Free T4 11/11/17 05:23 WBC RBC Hgb Hct MCV MCH MCHC RDW Plt Count Seg Neutrophils % Lymphocytes % Monocytes % Eosinophils % Basophils % Absolute Neutrophils Absolute Lymphocytes Absolute Monocytes Absolute Eosinophils Absolute Basophils Sodium Potassium Chloride Carbon Dioxide Anion Gap BUN Creatinine Est GFR ( Amer) Est GFR (Non-Af Amer) Glucose Calcium Magnesium Total Bilirubin AST ALT Alkaline Phosphatase Ammonia Total Protein Albumin TSH 1.18 Free T4 1.03 Impressions: Chest X-Ray 11/09/17 07:40 IMPRESSION: NO ACUTE RADIOGRAPHIC FINDING IN THE CHEST. Assessment & Plan - Diagnosis (1) Seizure disorder Is this a current diagnosis for this admission?: Yes Plan: Hold Depakote. Start on Keppra and as needed benzos. Seizure precaution. Patient is pending transfer [facility] where she could hopefully get evaluated by a neurologist. EEG on 11/11/2017 was read as normal. (2) Hypoglycemia Is this a current diagnosis for this admission?: Yes Plan: Frequent snacking. Patient has a very labile blood sugars possibly due to recurrent chronic pancreatitis. Will hold long-acting insulin and start her on sliding scale insulin. Continue Accu-Chek. Patient has never been evaluated by an perinatal tech. Once advised and hopefully she can get evaluated by an perinatal tech. (3) Lip laceration Qualifiers: Encounter type: initial encounter Qualified Code(s): S01.511A - Laceration without foreign body of lip, initial encounter Is this a current diagnosis for this admission?: Yes Plan: Due to recent seizure activity. Improving. Wound care. (4) Hypertension Qualifiers: Is this a current diagnosis for this admission?: Yes Plan: Blood pressure has been in the 170s. We will readjust her home medications. Euvolemic. 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 Start sliding scale. Accu-Chek. Diabetic diet. (6) Hx of pancreatitis Is this a current diagnosis for this admission?: No Plan: History of chronic recurrent pancreatitis patient has been admitted several times to ED for recurrent pancreatitis. Patient states she is not drinking anymore she is very compliant with her medications. Patient is allergic to hydrocodone and morphine. Avoid tramadol as it may, cause seizure. As needed Dilaudid, Tylenol, NSAIDs. Restart Pancrease (7) Anemia Qualifiers: Anemia type: due to chronic kidney disease Is this a current diagnosis for this admission?: Yes Plan: Normocytic most likely due to chronic CKD. Stable. Denies any external source of bleeding. (8) Chronic kidney disease Qualifiers: Chronic kidney disease stage: stage 2 (mild) Qualified Code(s): N18.2 - Chronic kidney disease, stage 2 (mild) Is this a current diagnosis for this admission?: Yes Plan: Most likely secondary to chronic uncontrolled hypertension or and diabetes. Monitor electrolytes and correct as needed. H&H stable. Outpatient nephrology follow-up.
--- NOTE | 2017-11-11 16:14 | PDOC TRANSFER SUMMARY ---
General Admission Date/PCP: 11/10/17 18:49 - Transfer Diagnosis (1) Seizure disorder Is this a current diagnosis for this admission?: Yes (2) Hypoglycemia Is this a current diagnosis for this admission?: Yes (3) Lip laceration Is this a current diagnosis for this admission?: Yes (4) Hypertension Is this a current diagnosis for this admission?: Yes (5) Type 2 diabetes mellitus Is this a current diagnosis for this admission?: Yes (6) Hx of pancreatitis Is this a current diagnosis for this admission?: No - Transfer Medications Home Medications: Amlodipine Besylate [Norvasc 5 mg Tablet] 5 mg PO BID 11/05/17 Divalproex Sodium [Depakote Sprinkle 125 mg Capsule] 250 mg PO TID 11/05/17 Insulin Aspart [Novolog Flexpen] 0 units SQ .PERSLIDINGSCALE 11/05/17 Insulin Glargine,Hum.rec.anlog [Lantus Solostar] 30 units SQ DAILY 11/05/17 Lisinopril [Zestril] 40 mg PO DAILY 11/05/17 Metoprolol Succinate [Toprol Xl 50 mg Tab.sr] 50 mg PO BID 11/05/17 Transfer Medications: Current Medications Acetaminophen (Tylenol 325 Mg Tablet) 650 mg PO Q6 PRN PRN Reason: MILD PAIN Stop: 12/10/17 00:00 Last Admin: 11/11/17 05:43 Dose: 650 mg Amlodipine Besylate (Norvasc 5 Mg Tablet) 10 mg PO DAILY CATIA Stop: 12/12/17 09:59 Lipase/Protease/Amylase (Pancreaze-10 Capsule.) 1 cap PO BIDACBS CATIA Stop: 12/11/17 07:59 Last Admin: 11/11/17 16:06 Dose: 1 cap Carvedilol (Coreg 12.5 Mg Tablet) 25 mg PO Q12 CATIA Stop: 12/11/17 21:59 Dextrose (Dextrose Inj 50% Syringe (25 Gm/50 Ml)) 12.5 gm IV PRN PRN; Protocol PRN Reason: FOR BG 50-69 IN ALERT PATIENT Stop: 12/10/17 18:36 Dextrose (Dextrose Inj 50% Syringe (25 Gm/50 Ml)) 25 gm IV PRN PRN; Protocol PRN Reason: PER PROTOCOL Stop: 12/10/17 18:36 Glucagon (Glucagen Inj 1 Mg Vial) 1 mg IM PRN PRN; Protocol PRN Reason: Evaluate for BG < 70 Stop: 12/10/17 18:36 Glucose (Glutose 40% Gel 15 Gm Tube) 15 gm PO PRN PRN; Protocol PRN Reason: FOR BG 50-69 IN ALERT PATIENT Stop: 12/10/17 18:36 Glucose (Glutose 40% Gel 15 Gm Tube) 30 gm PO PRN PRN; Protocol PRN Reason: FOR BG < 50 IN ALERT PATIENT Stop: 12/10/17 18:36 Heparin Sodium (Porcine) (Heparin Inj 5,000 Units/Ml 1 Ml Syringe) 5,000 unit SUBCUT Q8 CATIA Stop: 12/10/17 21:59 Last Admin: 11/11/17 15:06 Dose: 5,000 unit Hydralazine HCl (Apresoline 25 Mg Tablet) 25 mg PO Q8HP CATIA Stop: 12/11/17 16:14 Hydromorphone HCl (Dilaudid Inj/Pf 2 Mg/Ml Ampule) 1 mg IV Q6HP PRN PRN Reason: PAIN SCALE OF 5 Stop: 11/18/17 08:15 Last Admin: 11/11/17 15:03 Dose: 1 mg Sodium Chloride (Nacl 0.9% 1000 Ml Iv Soln) 1,000 mls @ 80 mls/hr IV CONTINUOUS PRN PRN Reason: THIS MED IS NOT "PRN" Stop: 12/10/17 18:25 Last Admin: 11/11/17 11:19 Dose: 80 mls/hr Insulin Human Regular (Humulin R (Pyxis) Insulin 100 Unit/Ml 3ml) 0 - 12 unit SUBCUT ACHSP PRN; Protocol PRN Reason: PER PROTOCOL Stop: 12/10/17 18:36 Last Admin: 11/11/17 12:13 Dose: 10 units Ketorolac Tromethamine (Toradol Inj/Pf 30 Mg/1 Ml Sdv) 15 mg IV Q8 PRN PRN Reason: FOR PAIN Stop: 11/14/17 21:59 Last Admin: 11/11/17 05:45 Dose: 15 mg Lansoprazole (Prevacid 15 Mg Odt Tablet) 15 mg PO BID@0600,1700 [facility] Stop: 12/11/17 05:59 Last Admin: 11/11/17 05:43 Dose: 15 mg Levetiracetam (Keppra 500 Mg Tablet) 1,000 mg PO BID CATIA Stop: 12/10/17 18:44 Last Admin: 11/11/17 11:16 Dose: 1,000 mg Lisinopril (Prinivil 10 Mg Tablet) 40 mg PO DAILY CATIA Stop: 12/11/17 08:59 Last Admin: 11/11/17 08:11 Dose: 40 mg Lorazepam (Ativan Inj 2 Mg/1 Ml Vial) 1 mg IV Q2 PRN PRN Reason: SEIZURES Stop: 11/17/17 19:59 Last Admin: 11/11/17 05:47 Dose: 1 mg Metoprolol Tartrate (Lopressor Inj/Pf 5 Mg/5 Ml Sdv) 5 mg IV Q6HP PRN PRN Reason: DIASTOLIC>180 OR SYSTOLIC>105 Stop: 12/10/17 21:44 Promethazine HCl (Phenergan Inj 25 Mg/1 Ml Vial) 12.5 mg IV Q4HP PRN PRN Reason: FOR NAUSEA/VOMITING Stop: 12/10/17 18:25 - Allergies Allergies/Adverse Reactions: hydrocodone [From Satartia] Allergy (Verified 11/05/17 09:11) morphine Allergy (Verified 11/05/17 09:11) Hospital Course Hospital Course: JJ HOFFMAN is a 37 year old female diabetes, hypertension, CKD, illicit drug use, chronic alcoholic pancreatitis and new onset seizure disorder since June 2017. Patient has had several ED admissions due to recurrent pancreatitis, altered mental status, DKA and seizures since June 2017 for seizure unfortunately patient has never been evaluated by neurologist. MRI of brain on 10/08/2017 showed mild spotty areas of white matter changes left greater than right which is often related to small vessel vasculopathy negative for stroke. Patient also had an EEG on 10/08/2015 which was read as abnormal and consistent with diffuse cerebral dysfunction however no elliptic form abnormalities were noted. Patient was brought in by EMS after witnessed seizure by the family. Patient stated that as per mother patient has had several convulsions but she herself does not remember anything. She states when she woke up she was already in the hospital. Blood sugar was checked by EMS which showed to be an 20s she received 2 intramuscular shots of glucagon which brought her glucose back to 70. Patient has uncontrolled diabetes with labile blood sugar possibly due to chronic recurrent pancreatitis. She is stating that she was started on Depakote about a week ago here at [facility] in ED for her seizure evaluation. She states she is very compliant with with her medications and never had any hypoglycemia before. She believes that there is hypoglycemia is due to Depakote. Patient has been waiting to be transferred to [facility] where she could be evaluated by neurologist but unfortunately she has been in ED for more than 30 hours. Patient was restarted on her insulin last night at ED she was given 15 units of Lantus. In the morning she had another episode of unwitnessed seizure and hypoglycemia, blood sugar in 20s Hospitalist was consulted for admission. Patient has an underlying seizure disorder as well as hypoglycemia but unfortunately she has not been evaluated by neurologist or director of sustainability. In the prior visit and appointment was made for her to see an director of sustainability but unfortunately she has not been able to keep her appointment. It was decided to admit the patient while while waiting to be transferred to [facility]. 11/11/2017: On my encounter with the patient in the morning and evening patient is sitting in the bed alert and oriented and very cooperative with physical examination and providing history. She is complaining of epigastric abdominal pain. She states she has been having this pain due to history of her chronic recurrent alcoholic pancreatitis. While in ED she has been given Toradol however she states is not helping. She is allergic to morphine and hydrocodone but she states she was given high Dilaudid in the last admission which helped her. EEG done on 11/11/2017 as well as normal. Patient has had not had any recurrence of her seizure while in the floor She refuses to take Tylenol or Toradol for her abdominal pain stating they did not help. 11/12/2017: Still waiting to be transferred to [facility]. No acute events overnight. Patient has not had any seizure since admission to floor. Upon my encounter patient sitting in bed drinking water. Complaining of persistent abdominal pain. Denies any new seizures. Patient's glucose have been very labile and difficult to control. Lantus is on hold as patient has had 2 episodes of hypoglycemia on the day of ED visit and the following day. Unlikely that Lantus could be the cause but will still hold Lantus to be on the safe side patient switched to insulin drip so he can have a better control over her blood sugars. Patient found to be hyperkalemic this morning. Given 1 g of calcium gluconate, albuterol nebs and EKGs ordered. Regular insulin with D50 could not be given as patient does not have a good venous access, she has only venous access with a 22-gauge as per nurse this venous access is not suitable for giving D50. Started on insulin drip which may help bring down her potassium. Anion gap is within normal limits. Will get a BMP. Physical Exam Vital Signs: Temp Pulse Resp BP Pulse Ox 97.5 F 84 20 141/84 H 99 11/11/17 15:48 11/11/17 15:48 11/11/17 15:48 11/11/17 15:48 11/11/17 15:48 Intake & Output 11/10/17 11/11/17 11/12/17 06:59 06:59 06:59 Intake Total 1536 Output Total 2700 2000 Balance -2700 -464 Weight 65.4 kg General appearance: PRESENT: no acute distress, well-developed, well-nourished Head exam: PRESENT: atraumatic, normocephalic Eye exam: PRESENT: conjunctiva pink, EOMI, PERRLA. ABSENT: scleral icterus Ear exam: PRESENT: normal external ear exam Mouth exam: PRESENT: moist, tongue midline Neck exam: ABSENT: carotid bruit, JVD, lymphadenopathy, thyromegaly Respiratory exam: PRESENT: clear to auscultation teddy. ABSENT: rales, rhonchi, wheezes Cardiovascular exam: PRESENT: RRR. ABSENT: diastolic murmur, rubs, systolic murmur Pulses: PRESENT: normal dorsalis pedis pul Vascular exam: PRESENT: normal capillary refill GI/Abdominal exam: PRESENT: normal bowel sounds, soft. ABSENT: distended, guarding, mass, organolmegaly, rebound, tenderness Rectal exam: PRESENT: deferred Extremities exam: PRESENT: full ROM. ABSENT: calf tenderness, clubbing, pedal edema Neurological exam: PRESENT: alert, awake, oriented to person, oriented to place , oriented to time, oriented to situation, CN II-XII grossly intact. ABSENT: motor sensory deficit Psychiatric exam: PRESENT: appropriate affect, normal mood. ABSENT: homicidal ideation, suicidal ideation Skin exam: PRESENT: dry, intact, warm. ABSENT: cyanosis, rash Results Laboratory Results: 11/11/17 05:23 11/11/17 05:23 11/11/17 11/11/17 11/11/17 05:23 05:23 05:23 WBC 8.8 RBC 3.59 L Hgb 10.7 L Hct 31.0 L MCV 86 MCH 29.8 MCHC 34.5 RDW 15.3 H Plt Count 295 Seg Neutrophils % 57.3 Lymphocytes % 33.7 Monocytes % 6.8 Eosinophils % 1.2 Basophils % 1.0 Absolute Neutrophils 5.0 Absolute Lymphocytes 3.0 Absolute Monocytes 0.6 Absolute Eosinophils 0.1 Absolute Basophils 0.1 Sodium 138.9 Potassium 4.2 Chloride 104 Carbon Dioxide 27 Anion Gap 8 BUN 22 H Creatinine 1.08 Est GFR ( Amer) > 60 Est GFR (Non-Af Amer) 57 L Glucose 130 H Calcium 9.3 Magnesium 1.9 Total Bilirubin 0.3 AST 17 ALT 28 Alkaline Phosphatase 104 Ammonia 22.9 Total Protein 6.0 L Albumin 3.1 L TSH Free T4 11/11/17 05:23 WBC RBC Hgb Hct MCV MCH MCHC RDW Plt Count Seg Neutrophils % Lymphocytes % Monocytes % Eosinophils % Basophils % Absolute Neutrophils Absolute Lymphocytes Absolute Monocytes Absolute Eosinophils Absolute Basophils Sodium Potassium Chloride Carbon Dioxide Anion Gap BUN Creatinine Est GFR ( Amer) Est GFR (Non-Af Amer) Glucose Calcium Magnesium Total Bilirubin AST ALT Alkaline Phosphatase Ammonia Total Protein Albumin TSH 1.18 Free T4 1.03 Impressions: Chest X-Ray 11/09/17 07:40 IMPRESSION: NO ACUTE RADIOGRAPHIC FINDING IN THE CHEST.
[2017-11-11] MEDS ORDERED: LORAZEPAM INJ 2 MG/1 ML VIAL IV PRN (17:00)
[2017-11-11] MEDS ORDERED: METOPROLOL TARTRATE PF/INJ 5 MG/5 ML SDV IV PRN (17:00)
[2017-11-11] MEDS ORDERED: KETOROLAC TROMETHAMINE INJ/PF 30 MG/1 ML SDV IV PRN (17:00)
[2017-11-11] MEDS ORDERED: ACETAMINOPHEN 325 MG TABLET PO PRN (17:00)
[2017-11-11] MEDS: HYDRALAZINE HCL 25 MG TABLET PO SCH ×2 (17:10→21:01)
[2017-11-11] MEDS: CARVEDILOL 12.5 MG TABLET PO SCH (21:00)
[2017-11-12] MEDS: HYDRALAZINE HCL 25 MG TABLET PO SCH ×3 (05:22→21:58)
[2017-11-12] MEDS: HEPARIN SOD (PORCINE) 5,000 UNIT/ML 1 ML SYRINGE SUBCUT SCH ×3 (05:22→21:59)
[2017-11-12] MEDS: LANSOPRAZOLE 15 MG TAB.RAP.DR PO SCH ×2 (05:22→16:02)
[2017-11-12] MEDS: HYDROMORPHONE HCL INJ/PF 2 MG/ML AMPULE IV PRN ×3 (05:23→22:08)
[2017-11-12 06:44] LABS: ALANINE AMINOTRANSFERASE 27 U/L (9-52); ALBUMIN 3.4 g/dL (3.5-5.0); ALKALINE PHOSPHATASE 166 U/L (38-126); ANION GAP 8 (5-19); ASPARTATE AMINO TRANSFERASE 16 U/L (14-36); BILIRUBIN,DIRECT 0.4 mg/dL (0.0-0.4); BILIRUBIN,TOTAL 0.5 mg/dL (0.2-1.3); BLOOD UREA NITROGEN 30 mg/dL (7-20); CALCIUM 9.6 mg/dL (8.4-10.2); CARBON DIOXIDE 26 mmol/L (22-30); CHLORIDE 98 mmol/L (98-107); POTASSIUM 5.8 mmol/L (3.6-5.0); SODIUM 131.5 mmol/L (137-145); TOTAL PROTEIN 6.3 g/dL (6.3-8.2)
[2017-11-12 07:25] LABS: GLUCOSE 660 mg/dL (75-110)
[2017-11-12] MEDS ORDERED: GLUCAGON,HUMAN RECOMB 1 MG INJ IM PRN ×2 (07:34→07:46)
[2017-11-12] MEDS ORDERED: DEXTROSE 40% GEL 15 GM TUBE PO PRN ×4 (07:34→07:46)
[2017-11-12] MEDS ORDERED: INSULIN LISPRO 100 UNIT/ML 3 ML VIAL SUBCUT PRN (07:34)
[2017-11-12] MEDS ORDERED: DEXTROSE 50%-WATER 25 GM/50 ML DISP.SYRIN IV PRN ×4 (07:34→07:46)
[2017-11-12] MEDS ORDERED: NORMAL SALINE 100 ML with INSULIN REGULAR, HUMAN 100 UNIT IV PRN ×2 (07:46)
[2017-11-12] MEDS ORDERED: ALBUTEROL SULFATE 0.083% NEB 2.5 MG/3 ML AMPUL NEB ONE (07:50)
[2017-11-12] MEDS ORDERED: CALCIUM GLUCONATE 1000 MG/10 ML INJ IV ONE (07:50)
[2017-11-12] MEDS: LIPASE/PROTEASE/AMYLASE 1 CAP CAPSULE.DR PO SCH ×2 (07:55→16:02)
[2017-11-12] MEDS ORDERED: INSULIN LISPRO 100 UNIT/ML 3 ML VIAL SUBCUT ONE (08:00)
[2017-11-12] MEDS: LISINOPRIL 10 MG TABLET PO SCH (09:50)
[2017-11-12] MEDS: AMLODIPINE BESYLATE 10 MG TABLET PO SCH (09:50)
[2017-11-12] MEDS: LEVETIRACETAM 500 MG TABLET PO SCH ×2 (09:50→17:07)
[2017-11-12] MEDS: CARVEDILOL 12.5 MG TABLET PO SCH ×2 (09:50→21:56)
[2017-11-12] MEDS ORDERED: AMLODIPINE BESYLATE 5 MG TABLET PO SCH (10:00)
[2017-11-12 11:42] LABS: ANION GAP 11 (5-19); BLOOD UREA NITROGEN 31 mg/dL (7-20); CALCIUM 10.1 mg/dL (8.4-10.2); CARBON DIOXIDE 25 mmol/L (22-30); CHLORIDE 98 mmol/L (98-107); GLUCOSE 359 mg/dL (75-110); SODIUM 133.7 mmol/L (137-145)
[2017-11-12 12:04] LABS: POTASSIUM 4.3 mmol/L (3.6-5.0)
--- NOTE | 2017-11-12 14:36 | PDOC PROGRESS REPORT ---
Subjective Subjective:: JJ HOFFMAN is a 37 year old female diabetes, hypertension, CKD, illicit drug use, chronic alcoholic pancreatitis and new onset seizure disorder since June 2017. Patient has had several ED admissions due to recurrent pancreatitis, altered mental status, DKA and seizures since June 2017 for seizure unfortunately patient has never been evaluated by neurologist. MRI of brain on 10/08/2017 showed mild spotty areas of white matter changes left greater than right which is often related to small vessel vasculopathy negative for stroke. Patient also had an EEG on 10/08/2015 which was read as abnormal and consistent with diffuse cerebral dysfunction however no elliptic form abnormalities were noted. Patient was brought in by EMS after witnessed seizure by the family. Patient stated that as per mother patient has had several convulsions but she herself does not remember anything. She states when she woke up she was already in the hospital. Blood sugar was checked by EMS which showed to be an 20s she received 2 intramuscular shots of glucagon which brought her glucose back to 70. Patient has uncontrolled diabetes with labile blood sugar possibly due to chronic recurrent pancreatitis. She is stating that she was started on Depakote about a week ago here at [facility] in ED for her seizure evaluation. She states she is very compliant with with her medications and never had any hypoglycemia before. She believes that there is hypoglycemia is due to Depakote. Patient has been waiting to be transferred to [facility] where she could be evaluated by neurologist but unfortunately she has been in ED for more than 30 hours. Patient was restarted on her insulin last night at ED she was given 15 units of Lantus. In the morning she had another episode of unwitnessed seizure and hypoglycemia, blood sugar in 20s Hospitalist was consulted for admission. Patient has an underlying seizure disorder as well as hypoglycemia but unfortunately she has not been evaluated by neurologist or seismograph supervisor. In the prior visit and appointment was made for her to see an seismograph supervisor but unfortunately she has not been able to keep her appointment. It was decided to admit the patient while while waiting to be transferred to [facility]. 11/11/2017: On my encounter with the patient in the morning and evening patient is sitting in the bed alert and oriented and very cooperative with physical examination and providing history. She is complaining of epigastric abdominal pain. She states she has been having this pain due to history of her chronic recurrent alcoholic pancreatitis. While in ED she has been given Toradol however she states is not helping. She is allergic to morphine and hydrocodone but she states she was given high Dilaudid in the last admission which helped her. EEG done on 11/11/2017 as well as normal. Patient has had not had any recurrence of her seizure while in the floor She refuses to take Tylenol or Toradol for her abdominal pain stating they did not help. 11/12/2017: Still waiting to be transferred to [facility]. No acute events overnight. Patient has not had any seizure since admission to floor. Upon my encounter patient sitting in bed drinking water. Complaining of persistent abdominal pain. Denies any new seizures. Patient's glucose have been very labile and difficult to control. Lantus is on hold as patient has had 2 episodes of hypoglycemia on the day of ED visit and the following day. Unlikely that Lantus could be the cause but will still hold Lantus to be on the safe side patient switched to insulin drip so he can have a better control over her blood sugars. Patient found to be hyperkalemic this morning. Given 1 g of calcium gluconate, albuterol nebs and EKGs ordered. Regular insulin with D50 could not be given as patient does not have a good venous access, she has only venous access with a 22-gauge as per nurse this venous access is not suitable for giving D50. Started on insulin drip which may help bring down her potassium. Anion gap is within normal limits. Will get a BMP. Reason For Visit: HYPOGLYCEMIA,SEIZURE Physical Exam Vital Signs: Temp Pulse Resp BP Pulse Ox 97.9 F 80 18 143/86 H 98 11/12/17 11:47 11/12/17 14:00 11/12/17 11:47 11/12/17 11:47 11/12/17 11:47 Intake & Output 11/11/17 11/12/17 11/13/17 06:59 06:59 06:59 Intake Total 2997 1140 Output Total 2700 4200 1900 Balance -2700 -1203 -760 Weight 65.4 kg 65.2 kg General appearance: PRESENT: no acute distress, well-developed, well-nourished Head exam: PRESENT: atraumatic, normocephalic Eye exam: PRESENT: conjunctiva pink, EOMI, PERRLA. ABSENT: scleral icterus Ear exam: PRESENT: normal external ear exam Mouth exam: PRESENT: moist, tongue midline Neck exam: ABSENT: carotid bruit, JVD, lymphadenopathy, thyromegaly Respiratory exam: PRESENT: clear to auscultation teddy. ABSENT: rales, rhonchi, wheezes Cardiovascular exam: PRESENT: RRR. ABSENT: diastolic murmur, rubs, systolic murmur Pulses: PRESENT: normal dorsalis pedis pul Vascular exam: PRESENT: normal capillary refill GI/Abdominal exam: PRESENT: tenderness. ABSENT: distended, guarding, mass, organolmegaly, rebound Rectal exam: PRESENT: deferred Extremities exam: PRESENT: full ROM. ABSENT: calf tenderness, clubbing, pedal edema Neurological exam: PRESENT: alert, awake, oriented to person, oriented to place , oriented to time, oriented to situation, CN II-XII grossly intact. ABSENT: motor sensory deficit Psychiatric exam: PRESENT: appropriate affect, normal mood. ABSENT: homicidal ideation, suicidal ideation Skin exam: PRESENT: dry, intact, warm. ABSENT: cyanosis, rash Results Laboratory Results: 11/11/17 05:23 11/12/17 10:40 11/12/17 11/12/17 06:01 10:40 Sodium 131.5 L 133.7 L Potassium 5.8 H 4.3 D Chloride 98 98 Carbon Dioxide 26 25 Anion Gap 8 11 BUN 30 H 31 H Creatinine 1.42 H 1.24 Est GFR ( Amer) 50 L 59 L Est GFR (Non-Af Amer) 42 L 49 L Glucose 660 H* 359 H Calcium 9.6 10.1 Total Bilirubin 0.5 AST 16 ALT 27 Alkaline Phosphatase 166 H Total Protein 6.3 Albumin 3.4 L Impressions: Chest X-Ray 11/09/17 07:40 IMPRESSION: NO ACUTE RADIOGRAPHIC FINDING IN THE CHEST. Assessment & Plan - Diagnosis (1) Seizure disorder Is this a current diagnosis for this admission?: Yes Plan: No recurrence since 11/11/2017. Hold Depakote. Start on Keppra and as needed benzos. Seizure precaution. Patient is pending transfer to [facility] where she could hopefully get evaluated by a neurologist. EEG on 11/11/2017 was read as normal. (2) Hypoglycemia Is this a current diagnosis for this admission?: Yes Plan: Patient has a very labile blood sugars possibly due to recurrent chronic pancreatitis. Patient has had 2 episodes of hypoglycemia blood glucose level being in 20s on the day of ED visit and the following day. Unlikely it was due to Lantus but it was presumed that Lantus may have caused low blood sugars. Patient herself states that she has been having hypoglycemia since being started on Depakote. Lantus is on hold until patient is being transferred and hopefully gets evaluated by an seismograph supervisor at [facility]. Fasting blood sugar is morning more than 600s patient was started on insulin drip. Continue Accu- Chek. Patient has never been evaluated by an seismograph supervisor. Once transferred to [facility] she would greatly benefit from being evaluated by an seismograph supervisor. (3) Lip laceration Qualifiers: Encounter type: initial encounter Qualified Code(s): S01.511A - Laceration without foreign body of lip, initial encounter Is this a current diagnosis for this admission?: Yes Plan: Improving. Due to recent seizure activity. Wound care. (4) Hypertension Qualifiers: Is this a current diagnosis for this admission?: Yes Plan: Blood pressure has been in the 170s. We will readjust her home medications. Euvolemic. (5) Type 2 diabetes mellitus Qualifiers: Diabetes mellitus termite control servicer insulin use: with fdc use Diabetes mellitus complication status: with hypoglycemia Diabetes mellitus complication detail: without coma Qualified Code(s): E11.649 - Type 2 diabetes mellitus with hypoglycemia without coma; Z79.4 - termite control technician (current) use of insulin; Z79.4 - termite control technician (current) use of insulin; Z79.4 - termite control technician ( current) use of insulin; Z79.4 - termite control technician (current) use of insulin Is this a current diagnosis for this admission?: Yes Plan: Very difficult to control diabetes. Please refer to problem #2 currently on insulin drip. Accu-Chek. Diabetic diet. (6) Hx of pancreatitis Is this a current diagnosis for this admission?: No Plan: History of chronic recurrent pancreatitis patient has been admitted several times to ED for recurrent pancreatitis. Patient states she is not drinking anymore she is very compliant with her medications. Patient is allergic to hydrocodone and morphine. Avoid tramadol as it may, cause seizure. As needed Dilaudid, Tylenol, NSAIDs. Restart Pancrease (7) Hyperkalemia Is this a current diagnosis for this admission?: Yes Plan: Resolved. No EKG changes. Patient was given 1 g of calcium gluconate albuterol neb and was started on insulin drip. Could not give regular insulin 10 unit with D50 as patient does not have a good venous access. Patient has 1 venous access with a 22-gauge. (8) Anemia Qualifiers: Anemia type: due to chronic kidney disease Is this a current diagnosis for this admission?: Yes Plan: Normocytic most likely due to chronic CKD. Stable. Denies any external source of bleeding. (9) Chronic kidney disease Qualifiers: Chronic kidney disease stage: stage 3 (moderate) Qualified Code(s): N18.3 - Chronic kidney disease, stage 3 (moderate) Is this a current diagnosis for this admission?: Yes Plan: Most likely secondary to chronic uncontrolled hypertension or and diabetes. Monitor electrolytes and correct as needed. H&H stable. Outpatient nephrology follow-up.
[2017-11-12] MEDS: INSULIN LISPRO 100 UNIT/ML 3 ML VIAL SUBCUT PRN (17:08)
--- NOTE | 2017-11-12 19:37 | EKG REPORT ---
SEVERITY:- ABNORMAL ECG - SINUS RHYTHM ABNORMAL Q SUGGESTS ANTERIOR INFARCT : Confirmed by: Valentina Fierro 12-Nov-2017 19:37:13
[2017-11-12] MEDS ORDERED: INSULIN REG, HUMAN 100 UNIT/ML 3 ML VIAL (PYX) ONE ×2 (21:51→23:59)
[2017-11-12] MEDS: INSULIN REG, HUMAN 100 UNIT/ML 3 ML VIAL (PYX) SUBCUT PRN (21:53)
[2017-11-12] MEDS ORDERED: INSULIN REG, HUMAN 100 UNIT/ML 3 ML VIAL SUBCUT ONE (22:30)
[2017-11-13] MEDS: INSULIN REG, HUMAN 100 UNIT/ML 3 ML VIAL (PYX) SUBCUT PRN (00:06)
[2017-11-13] MEDS ORDERED: INSULIN REG, HUMAN 100 UNIT/ML 3 ML VIAL SUBCUT ONE (01:30)
[2017-11-13] MEDS: HYDROMORPHONE HCL INJ/PF 2 MG/ML AMPULE IV PRN ×2 (03:31→13:07)
[2017-11-13] MEDS: LANSOPRAZOLE 15 MG TAB.RAP.DR PO SCH (05:43)
[2017-11-13] MEDS: HEPARIN SOD (PORCINE) 5,000 UNIT/ML 1 ML SYRINGE SUBCUT SCH (05:43)
[2017-11-13 06:35] LABS: ABSOLUTE BASOPHILS # (AUTO) 0.1 10^3/uL (0.0-0.2); ABSOLUTE EOSINOPHILS # (AUTO) 0.1 10^3/uL (0.0-0.6); ABSOLUTE LYMPHOCYTES (AUTO) 1.6 10^3/uL (0.5-4.7); ABSOLUTE MONOCYTES (AUTO) 0.5 10^3/uL (0.1-1.4); ABSOLUTE NEUT (AUTO) 5.5 10^3/uL (1.7-8.2); EOSINOPHILS % (AUTO) 1.2 % (0-6); HEMOGLOBIN 10.8 g/dL (12.0-15.5); LYMPHOCYTES % (AUTO) 20.9 % (13-45); MEAN CORPUSCULAR HEMOGLOBIN 29.2 pg (27.0-33.4); MEAN CORPUSCULAR HGB CONC 33.7 g/dL (32.0-36.0); MEAN CORPUSCULAR VOLUME 87 fl (80-97); MONOCYTES % (AUTO) 6.3 % (3-13); PLATELET COUNT 135 10^3/uL (150-450); RED BLOOD COUNT 3.69 10^6/uL (3.72-5.28); RED CELL DISTRIBUTION WIDTH 14.9 % (11.5-14.0); SEGMENTED NEUTROPHILS % (AUTO) 70.6 % (42-78); TOTAL CELLS COUNTED % (AUTO) 100 %; WHITE BLOOD COUNT 7.8 10^3/uL (4.0-10.5)
[2017-11-13] MEDS: LIPASE/PROTEASE/AMYLASE 1 CAP CAPSULE.DR PO SCH (07:35)
[2017-11-13 09:01] LABS: ALANINE AMINOTRANSFERASE 23 U/L (9-52); ALBUMIN 3.6 g/dL (3.5-5.0); ALKALINE PHOSPHATASE 124 U/L (38-126); ANION GAP 6 (5-19); ASPARTATE AMINO TRANSFERASE 16 U/L (14-36); BILIRUBIN,DIRECT 0.4 mg/dL (0.0-0.4); BILIRUBIN,TOTAL 0.5 mg/dL (0.2-1.3); BLOOD UREA NITROGEN 35 mg/dL (7-20); CARBON DIOXIDE 32 mmol/L (22-30); CHLORIDE 99 mmol/L (98-107); GLUCOSE 126 mg/dL (75-110); POTASSIUM 5.1 mmol/L (3.6-5.0); TOTAL PROTEIN 6.7 g/dL (6.3-8.2)
[2017-11-13] MEDS: LEVETIRACETAM 500 MG TABLET PO SCH (09:09)
[2017-11-13] MEDS: LISINOPRIL 10 MG TABLET PO SCH (09:10)
[2017-11-13] MEDS: CARVEDILOL 12.5 MG TABLET PO SCH (09:10)
[2017-11-13] MEDS: HYDRALAZINE HCL 25 MG TABLET PO SCH (09:10)
[2017-11-13] MEDS: AMLODIPINE BESYLATE 10 MG TABLET PO SCH (09:10)
[2017-11-13] MEDS: INSULIN LISPRO 100 UNIT/ML 3 ML VIAL SUBCUT PRN (11:43)
[2017-11-13 12:18] VITALS: BP 144/82
--- NOTE | 2017-11-13 12:31 | PDOC TRANSFER SUMMARY ---
General Admission Date/PCP: 11/10/17 18:49 - Transfer Diagnosis (1) Seizure disorder Is this a current diagnosis for this admission?: Yes (2) Hypoglycemia Is this a current diagnosis for this admission?: Yes (3) Lip laceration Is this a current diagnosis for this admission?: Yes (4) Hypertension Is this a current diagnosis for this admission?: Yes (5) Type 2 diabetes mellitus Is this a current diagnosis for this admission?: Yes (6) Hx of pancreatitis Is this a current diagnosis for this admission?: No (7) Hyperkalemia Is this a current diagnosis for this admission?: Yes (8) Anemia Is this a current diagnosis for this admission?: Yes (9) Chronic kidney disease Is this a current diagnosis for this admission?: Yes - Transfer Medications Home Medications: Amlodipine Besylate [Norvasc 5 mg Tablet] 5 mg PO BID 11/05/17 Divalproex Sodium [Depakote Sprinkle 125 mg Capsule] 250 mg PO TID 11/05/17 Insulin Aspart [Novolog Flexpen] 0 units SQ .PERSLIDINGSCALE 11/05/17 Insulin Glargine,Hum.rec.anlog [Lantus Solostar] 30 units SQ DAILY 11/05/17 Lisinopril [Zestril] 40 mg PO DAILY 11/05/17 Metoprolol Succinate [Toprol Xl 50 mg Tab.sr] 50 mg PO BID 11/05/17 Transfer Medications: Current Medications Acetaminophen (Tylenol 325 Mg Tablet) 650 mg PO Q6HP PRN PRN Reason: MILD PAIN Stop: 12/09/17 20:05 Amlodipine Besylate (Norvasc 10 Mg Tablet) 10 mg PO DAILY CATIA Stop: 12/12/17 09:59 Last Admin: 11/13/17 09:10 Dose: 10 mg Lipase/Protease/Amylase (Pancreaze-10 Capsule.Dr) 1 cap PO BIDACBS CATIA Stop: 12/11/17 07:59 Last Admin: 11/13/17 07:35 Dose: 1 cap Carvedilol (Coreg 12.5 Mg Tablet) 25 mg PO Q12 CATIA Stop: 12/11/17 21:59 Last Admin: 11/13/17 09:10 Dose: 25 mg Dextrose (Dextrose Inj 50% Syringe (25 Gm/50 Ml)) 12.5 gm IV PRN PRN; Protocol PRN Reason: FOR BG 50-69 IN ALERT PATIENT Stop: 12/12/17 07:45 Dextrose (Dextrose Inj 50% Syringe (25 Gm/50 Ml)) 25 gm IV PRN PRN; Protocol PRN Reason: PER PROTOCOL Stop: 12/12/17 07:45 Last Admin: 11/13/17 05:32 Dose: 25 gm Glucagon (Glucagen Inj 1 Mg Vial) 1 mg IM PRN PRN; Protocol PRN Reason: Evaluate for BG < 70 Stop: 12/12/17 07:45 Glucose (Glutose 40% Gel 15 Gm Tube) 15 gm PO PRN PRN; Protocol PRN Reason: FOR BG 50-69 IN ALERT PATIENT Stop: 12/12/17 07:45 Glucose (Glutose 40% Gel 15 Gm Tube) 30 gm PO PRN PRN; Protocol PRN Reason: FOR BG < 50 IN ALERT PATIENT Stop: 12/12/17 07:45 Heparin Sodium (Porcine) (Heparin Inj 5,000 Units/Ml 1 Ml Syringe) 5,000 unit SUBCUT Q8 CATIA Stop: 12/10/17 21:59 Last Admin: 11/13/17 05:43 Dose: 5,000 unit Hydralazine HCl (Apresoline 25 Mg Tablet) 50 mg PO Q12 CATIA Stop: 12/12/17 21:59 Last Admin: 11/13/17 09:10 Dose: 50 mg Hydromorphone HCl (Dilaudid Inj/Pf 2 Mg/Ml Ampule) 1 mg IV Q6HP PRN PRN Reason: PAIN SCALE OF 5 Stop: 11/18/17 08:15 Last Admin: 11/13/17 03:31 Dose: 1 mg Insulin Human Regular 100 unit (/ Sodium Chloride) 101 mls @ 0 mls/hr IV CONTINUOUS PRN; Protocol; Titrate PRN Reason: THIS MED IS NOT "PRN" Stop: 12/12/17 07:45 Last Titration: 11/12/17 15:00 Dose: 0 unit/hr, 0 mls/hr Insulin Human Lispro (Humalog Insulin 100 Unit/1 Ml 3 Ml Vial) 0 - 12 unit SUBCUT [id number] PRN; Protocol PRN Reason: PER PROTOCOL Stop: 12/12/17 15:32 Last Admin: 11/13/17 11:43 Dose: 8 units Ketorolac Tromethamine (Toradol Inj/Pf 30 Mg/1 Ml Sdv) 15 mg IV Q8HP PRN PRN Reason: FOR PAIN Stop: 11/14/17 20:06 Lansoprazole (Prevacid 15 Mg Odt Tablet) 15 mg PO BID@0600,1700 [facility] Stop: 12/11/17 05:59 Last Admin: 11/13/17 05:43 Dose: 15 mg Levetiracetam (Keppra 500 Mg Tablet) 1,000 mg PO BID CATIA Stop: 12/10/17 18:44 Last Admin: 11/13/17 09:09 Dose: 1,000 mg Lisinopril (Prinivil 10 Mg Tablet) 40 mg PO DAILY CATIA Stop: 12/11/17 08:59 Last Admin: 11/13/17 09:10 Dose: 40 mg Lorazepam (Ativan Inj 2 Mg/1 Ml Vial) 1 mg IV Q2HP PRN PRN Reason: SEIZURES Stop: 11/17/17 18:34 Metoprolol Tartrate (Lopressor Inj/Pf 5 Mg/5 Ml Sdv) 5 mg IV Q6HP PRN PRN Reason: SYSTOLIC>180 OR DIASTOLIC>105 Stop: 12/10/17 21:44 Promethazine HCl (Phenergan Inj 25 Mg/1 Ml Vial) 12.5 mg IV Q4HP PRN PRN Reason: FOR NAUSEA/VOMITING Stop: 12/10/17 18:25 - Allergies Allergies/Adverse Reactions: hydrocodone [From [place]] Allergy (Verified 11/05/17 09:11) morphine Allergy (Verified 11/05/17 09:11) Hospital Course Hospital Course: JJ HOFFMAN is a 37 year old female diabetes, hypertension, CKD, illicit drug use, chronic alcoholic pancreatitis and new onset seizure disorder since June 2017. Patient has had several ED admissions due to recurrent pancreatitis, altered mental status, DKA and seizures since June 2017 for seizure unfortunately patient has never been evaluated by neurologist. MRI of brain on 10/08/2017 showed mild spotty areas of white matter changes left greater than right which is often related to small vessel vasculopathy negative for stroke. Patient also had an EEG on 10/08/2015 which was read as abnormal and consistent with diffuse cerebral dysfunction however no elliptic form abnormalities were noted. Patient was brought in by EMS after witnessed seizure by the family. Patient stated that as per mother patient has had several convulsions but she herself does not remember anything. She states when she woke up she was already in the hospital. Blood sugar was checked by EMS which showed to be an 20s she received 2 intramuscular shots of glucagon which brought her glucose back to 70. Patient has uncontrolled diabetes with labile blood sugar possibly due to chronic recurrent pancreatitis. She is stating that she was started on Depakote about a week ago here at [facility] in ED for her seizure evaluation. She states she is very compliant with with her medications and never had any hypoglycemia before. She believes that there is hypoglycemia is due to Depakote. Patient has been waiting to be transferred to [facility] where she could be evaluated by neurologist but unfortunately she has been in ED for more than 30 hours. Patient was restarted on her insulin last night at ED she was given 15 units of Lantus. In the morning she had another episode of unwitnessed seizure and hypoglycemia, blood sugar in 20s Hospitalist was consulted for admission. Patient has an underlying seizure disorder as well as hypoglycemia but unfortunately she has not been evaluated by neurologist or news clerk. In the prior visit and appointment was made for her to see an news clerk but unfortunately she has not been able to keep her appointment. It was decided to admit the patient while while waiting to be transferred to [facility]. 11/11/2017: On my encounter with the patient in the morning and evening patient is sitting in the bed alert and oriented and very cooperative with physical examination and providing history. She is complaining of epigastric abdominal pain. She states she has been having this pain due to history of her chronic recurrent alcoholic pancreatitis. While in ED she has been given Toradol however she states is not helping. She is allergic to morphine and hydrocodone but she states she was given high Dilaudid in the last admission which helped her. EEG done on 10/07/2017 was read as abnormal and consistent with diffuse cerebral dysfunction however no epileptiform abnormalities were noted. EEG done on 2017 as well as normal. Patient has had not had any recurrence of her seizure while in the floor She refuses to take Tylenol or Toradol for her abdominal pain stating they did not help. 11/12/2017: Still waiting to be transferred to [facility]. No acute events overnight. Patient has not had any seizure since admission to floor. Upon my encounter patient sitting in bed drinking water. Complaining of persistent abdominal pain. Denies any new seizures. Patient's glucose have been very labile and difficult to control. Lantus is on hold as patient has had 2 episodes of hypoglycemia on the day of ED visit and the following day. Unlikely that Lantus could be the cause but will still hold Lantus to be on the safe side patient switched to insulin drip so he can have a better control over her blood sugars. Patient found to be hyperkalemic this morning. Given 1 g of calcium gluconate, albuterol nebs and EKGs ordered. Regular insulin with D50 could not be given as patient does not have a good venous access, she has only venous access with a 22-gauge as per nurse this venous access is not suitable for giving D50. Started on insulin drip which may help bring down her potassium. Anion gap is within normal limits. Will get a BMP. 11/13/2017. Patient has had labile blood glucose level since yesterday. On 11/12 she had another episode of blood glucose level in the 30s. However she has not had any seizures since being moved to the floor. Currently she is on sliding scale insulin, Keppra and Dilaudid for her chronic pancreatitis. On my encounter today patient is very pleasant and cooperative with physical examination. She states she is doing okay and denies having any seizures. Her abdominal pain is still the same since admission. Has not had any fever, chills , nausea, vomiting, diarrhea, constipation, chest pain, shortness of breath or any urinary symptoms. Lantus is still held until she is being evaluated by an news clerk. It was presumed that her low blood sugar in the ED could have been caused by her Lantus. Physical Exam Vital Signs: Temp Pulse Resp BP Pulse Ox 98.5 F 90 14 144/82 H 98 11/13/17 11:31 11/13/17 11:31 11/13/17 11:31 11/13/17 11:31 11/13/17 11:31 Intake & Output 11/12/17 11/13/17 11/14/17 06:59 06:59 06:59 Intake Total 2997 1964 236 Output Total 4200 3600 425 Balance -1203 -1636 -189 Weight 65.2 kg 65 kg General appearance: PRESENT: no acute distress, well-developed, well-nourished Head exam: PRESENT: atraumatic, normocephalic Eye exam: PRESENT: conjunctiva pink, EOMI, PERRLA. ABSENT: scleral icterus Ear exam: PRESENT: normal external ear exam Mouth exam: PRESENT: moist, tongue midline Neck exam: ABSENT: carotid bruit, JVD, lymphadenopathy, thyromegaly Respiratory exam: PRESENT: clear to auscultation teddy. ABSENT: rales, rhonchi, wheezes Cardiovascular exam: PRESENT: RRR. ABSENT: diastolic murmur, rubs, systolic murmur Pulses: PRESENT: normal dorsalis pedis pul Vascular exam: PRESENT: normal capillary refill GI/Abdominal exam: PRESENT: normal bowel sounds, soft, tenderness - Diffuse abdominal tenderness.. ABSENT: distended, guarding, mass, organolmegaly, rebound Rectal exam: PRESENT: deferred Extremities exam: PRESENT: full ROM. ABSENT: calf tenderness, clubbing, pedal edema Neurological exam: PRESENT: alert, awake, oriented to person, oriented to place , oriented to time, oriented to situation, CN II-XII grossly intact. ABSENT: motor sensory deficit Psychiatric exam: PRESENT: appropriate affect, normal mood. ABSENT: homicidal ideation, suicidal ideation Skin exam: PRESENT: dry, intact, warm. ABSENT: cyanosis, rash Results Laboratory Results: 11/13/17 06:16 11/13/17 07:18 11/13/17 11/13/17 11/13/17 06:16 06:16 07:18 WBC 7.8 RBC 3.69 L Hgb 10.8 L Hct 32.0 L MCV 87 MCH 29.2 MCHC 33.7 RDW 14.9 H Plt Count 135 L Seg Neutrophils % 70.6 Lymphocytes % 20.9 Monocytes % 6.3 Eosinophils % 1.2 Basophils % 1.0 Absolute Neutrophils 5.5 Absolute Lymphocytes 1.6 Absolute Monocytes 0.5 Absolute Eosinophils 0.1 Absolute Basophils 0.1 Sodium Cancelled 137.0 Potassium Cancelled 5.1 H Chloride Cancelled 99 Carbon Dioxide Cancelled 32 H Anion Gap Cancelled 6 BUN Cancelled 35 H Creatinine Cancelled 1.50 H Est GFR ( Amer) Cancelled 47 L Est GFR (Non-Af Amer) Cancelled 39 L Glucose Cancelled 126 H Calcium Cancelled 10.0 Total Bilirubin Cancelled 0.5 AST Cancelled 16 ALT Cancelled 23 Alkaline Phosphatase Cancelled 124 Total Protein Cancelled 6.7 Albumin Cancelled 3.6 Impressions: Chest X-Ray 11/09/17 07:40 IMPRESSION: NO ACUTE RADIOGRAPHIC FINDING IN THE CHEST.
== END 2017-11-13 13:31 | disposition short-term general hospital (02) | DRG 101 ==
LOC: ER 07:32 → EH 11-10 18:49 → 3S 11-10 20:30
PROVIDERS: ADMIT Emergency Medicine; ATTEND Emergency Medicine
DX: G40.909 Epilepsy, unspecified, not intractable, without status epilepticus (principal); K86.0 Alcohol-induced chronic pancreatitis; E11.649 Type 2 diabetes mellitus with hypoglycemia without coma; E87.5 Hyperkalemia; Z79.4 Long term (current) use of insulin; I10 Essential (primary) hypertension; R68.0 Hypothermia, not associated with low environmental temperature; N18.3 Chronic kidney disease, stage 3 (moderate); I12.9 Hypertensive chronic kidney disease with stage 1 through stage 4 chronic kidney disease, or unspecified chronic kidney disease; E11.22 Type 2 diabetes mellitus with diabetic chronic kidney disease; D63.1 Anemia in chronic kidney disease; X58.XXXA Exposure to other specified factors, initial encounter; S01.511A Laceration without foreign body of lip, initial encounter; Z83.3 Family history of diabetes mellitus; Z82.49 Family history of ischemic heart disease and other diseases of the circulatory system; Z90.710 Acquired absence of both cervix and uterus
CPT/HCPCS: 36415; 51702; 71045; 80048; 80053; 80164; 80307; 81001; 81025; 82140; 82947; 82962; 83036; 83605; 83690; 83735; 84439; 84443; 84484; 85025; 87040; 93005; 93010; 95819; 96361; 96374; 96375; 99291; J0610; J1170; J1644; J1815; J1885; J2060; J3490; J7030

== ENCOUNTER 2017-12-09 11:46 | Inpatient (IN) | payer MEDICAID ==
--- NOTE | 2017-12-09 11:54 | ER Document Report ---
ED General - General Chief Complaint: Unresponsive Stated Complaint: UNRESPONSIVE Time Seen by Provider: 12/09/17 11:54 TRAVEL OUTSIDE OF THE [place] IN LAST 30 DAYS: No - HPI Patient complains to provider of: Unresponsive Onset: Just prior to arrival - Related Data Allergies/Adverse Reactions: hydrocodone [From [place]] Allergy (Verified 12/09/17 11:54) morphine Allergy (Verified 12/09/17 11:54) Past Medical History - General Information source: Patient Cannot obtain history due to: Uncooperative - Social History Smoking Status: Unknown if Ever Smoked Family History: Reviewed & Not Pertinent, DM, Hypertension - Past Medical History Cardiac Medical History: Reports: Hx Hypercholesterolemia, Hx Hypertension Pulmonary Medical History: Denies: Hx COPD Endocrine Medical History: Reports: Hx Diabetes Mellitus Type 1, Hx Diabetes Mellitus Type 2 Renal/ Medical History: Denies: Hx End Stage Renal Disease, Hx Peritoneal Dialysis GI Medical History: Reports: Hx Cirrhosis Musculoskeletal Medical History: Denies Hx Arthritis Skin Medical History: Denies Hx Eczema, Denies Hx Psoriasis Psychiatric Medical History: Denies: Hx Dementia, Hx Depression Past Surgical History: Reports: Hx Section - x3, Hx Hysterectomy Review of Systems - Review of Systems -: Yes ROS unobtainable due to patient's medical condition Physical Exam - Vital signs Vitals: Resp BP Pulse Ox 14 213/139 H 100 12/09/17 11:47 12/09/17 11:47 12/09/17 11:47 - General General appearance: Unresponsive In distress: Moderate - HEENT Head: Normocephalic Eyes: Normal Conjunctiva: Normal Cornea: Normal Extraocular movements intact: Yes Eyelashes: Normal Pupils: PERRL - Respiratory Respiratory status: No respiratory distress Chest status: Nontender Breath sounds: Normal Chest palpation: Normal - Cardiovascular Rhythm: Tachycardia - Abdominal Inspection: Normal Tenderness: Tender - Back Back: Normal - Extremities General upper extremity: Normal inspection, Nontender, Normal strength, Normal temperature General lower extremity: Normal inspection, Nontender, Normal strength, Normal temperature - Neurological Neuro grossly intact: No Cognition: Inattentive Orientation: Disoriented to person, Disoriented to place, Disoriented to events Paris Coma Scale Eye Opening: To Pain [place] Coma Scale Verbal: Inappropriate [place] Coma Scale Motor: Localizes to Pain [place] Coma Scale Total: 10 - Psychological Associated symptoms: Uncooperative Course - Re-evaluation Re-evalutation: This young lady presented initially in an unresponsive state. She was taken emergently to the resuscitation bay. On monitor. At this time there is the application of noxious stimuli to the patient's right upper chest and arm at which time she opened her eyes a slightly, she was breathing spontaneously without any assistance maintaining a normal pulse oximetry though she was not saying anything her regarding appropriately. Her neck and body demonstrate many scars suggestive of previous central lines as well as surgeries. After several minutes of attempting to arouse this patient she began to become more responsive. She relays a history in which she began to have horrible pain consistent with her known pancreatitis and feel unwell almost as if she were going to be hypoglycemic which is happened many times in the past at which time she called for help she was then unresponsive does not remember anything until she woke up in the room. We will obtain broad workup including labs for possible developing DKA though the patient does not have a profoundly elevated or profoundly low blood glucose. We will plan for the administration of fluids, will plan for reassessment. Patient with a markedly elevated lipase, she does have a known history of pancreatitis. Her primary complaint at this time after all of the initial theatric says abdominal pain consistent with her previous pancreatitis. She also has what appears to be a contaminated urine. Her urine could be contributing to the pancreatitis though this seems unlikely. We will plan for the admission to the hospital as I have spoken with this patient and she does not believe that she would be able to tolerate going home at this time. - Vital Signs Vital signs: Temp Pulse Resp BP Pulse Ox 98.8 F 84 16 136/73 H 100 12/12/17 17:36 12/12/17 17:36 12/12/17 17:36 12/12/17 17:36 12/12/17 17:36 - Laboratory Result Diagrams: 12/12/17 06:18 12/12/17 06:18 Laboratory results interpreted by me: 12/09/17 12/09/17 12/09/17 11:44 11:50 11:50 WBC 11.9 H Hgb 11.3 L Hct 34.3 L RDW 15.1 H Carbon Dioxide 31 H Est GFR (Non-Af Amer) 50 L Glucose 153 H POC Glucose 159 H Alkaline Phosphatase 137 H NT-Pro-B Natriuret Pep Lipase 450.6 H Urine Protein Urine Glucose (UA) Urine Blood Urine Nitrite Ur Leukocyte Esterase 12/09/17 12/09/17 11:50 13:39 WBC Hgb Hct RDW Carbon Dioxide Est GFR (Non-Af Amer) Glucose POC Glucose Alkaline Phosphatase NT-Pro-B Natriuret Pep 213 H Lipase Urine Protein >=500 H Urine Glucose (UA) 50 H Urine Blood MODERATE H Urine Nitrite POSITIVE H Ur Leukocyte Esterase LARGE H Discharge - Discharge Clinical Impression: Pyelonephritis Acute pancreatitis Qualifiers: Pancreatitis type: other Acute pancreatitis complication: unspecified Qualified Code(s): K85.80 - Other acute pancreatitis without necrosis or infection Condition: Stable Disposition: ADMITTED INPATIENT Admitting Provider: Hospitalist Unit Admitted: Medical Floor
[2017-12-09] MEDS ORDERED: NORMAL SALINE 1000 ML 1,000 ML IV ONE (11:55)
[2017-12-09 12:04] LABS: ABSOLUTE BASOPHILS # (AUTO) 0.1 10^3/uL (0.0-0.2); ABSOLUTE EOSINOPHILS # (AUTO) 0.1 10^3/uL (0.0-0.6); ABSOLUTE MONOCYTES (AUTO) 0.9 10^3/uL (0.1-1.4); ABSOLUTE NEUT (AUTO) 7.8 10^3/uL (1.7-8.2); BASOPHILS % (AUTO) 0.5 % (0-2); EOSINOPHILS % (AUTO) 1.2 % (0-6); HEMATOCRIT 34.3 % (36.0-47.0); HEMOGLOBIN 11.3 g/dL (12.0-15.5); LYMPHOCYTES % (AUTO) 24.9 % (13-45); MEAN CORPUSCULAR HEMOGLOBIN 28.9 pg (27.0-33.4); MEAN CORPUSCULAR VOLUME 87 fl (80-97); MONOCYTES % (AUTO) 7.9 % (3-13); PLATELET COUNT 368 10^3/uL (150-450); RED BLOOD COUNT 3.93 10^6/uL (3.72-5.28); RED CELL DISTRIBUTION WIDTH 15.1 % (11.5-14.0); SEGMENTED NEUTROPHILS % (AUTO) 65.5 % (42-78); TOTAL CELLS COUNTED % (AUTO) 100 %; WHITE BLOOD COUNT 11.9 10^3/uL (4.0-10.5)
[2017-12-09 12:15] LABS: ALANINE AMINOTRANSFERASE 36 U/L (9-52); ALBUMIN 4.2 g/dL (3.5-5.0); ALKALINE PHOSPHATASE 137 U/L (38-126); ANION GAP 10 (5-19); ASPARTATE AMINO TRANSFERASE 25 U/L (14-36); BILIRUBIN,DIRECT 0.2 mg/dL (0.0-0.4); BILIRUBIN,TOTAL 0.5 mg/dL (0.2-1.3); BLOOD UREA NITROGEN 16 mg/dL (7-20); CALCIUM 9.8 mg/dL (8.4-10.2); CARBON DIOXIDE 31 mmol/L (22-30); CHLORIDE 101 mmol/L (98-107); GLUCOSE 153 mg/dL (75-110); LIPASE 450.6 U/L (23-300); TOTAL PROTEIN 7.5 g/dL (6.3-8.2)
[2017-12-09 12:34] LABS: NT PRO BNP 213 pg/mL (<125)
[2017-12-09 12:37] LABS: TROPONIN I < 0.012 ng/mL
--- NOTE | 2017-12-09 12:44 | EKG REPORT ---
SEVERITY:- ABNORMAL ECG - SINUS TACHYCARDIA PROBABLE LEFT VENTRICULAR HYPERTROPHY BORDERLINE PROLONGED QT INTERVAL : Confirmed by: Ana Borja MD 09-Dec-2017 12:43:42
--- NOTE | 2017-12-09 13:04 | RADIOLOGY REPORT (SQ) ---
EXAM DESCRIPTION: CT ABD/PELVIS WITH IV ONLY COMPLETED DATE/TIME: 12/09/2017 12:41 pm REASON FOR STUDY: pancreatitis COMPARISON: 10/30/2017 TECHNIQUE: CT scan of the abdomen and pelvis performed using helical scanning technique with dynamic intravenous contrast injection. No oral contrast. Images reviewed with lung, soft tissue, and bone windows. Reconstructed coronal and sagittal MPR images reviewed. Delayed images for evaluation of the urinary system also acquired. All images stored on PACS. All CT scanners at this facility use dose modulation, iterative reconstruction, and/or weight based d osing when appropriate to reduce radiation dose to as low as reasonably achievable (ALARA). [facility]: Dose Right [facility]: CareDose [facility]: Dose Right [facility]: Teradose 4D [facility]: Zipidee CONTRAST TYPE AND DOSE: contrast/concentration: Isovue 350.00 mg/ml; Total Contrast Delivered: 72.0 ml; Total Saline Delivered: 66.0 ml RENAL FUNCTION: GFR > 60. RADIATION DOSE: CT Rad equipment meets quality standard of care and radiation dose reduction techniq ues were employed. CTDIvol: 6.2 - 8.7 mGy. DLP: 711 mGy-cm.. LIMITATIONS: None. FINDINGS: LOWER CHEST: No significant findings. No nodules or infiltrates. LIVER: Normal size. No masses. No dilated ducts. SPLEEN: Normal size. No focal lesions. PANCREAS: Calcifications in the head. No adjacent inflammation or peripancreatic fluid collections. P ancreatic duct not dilated. GALLBLADDER: No identified stones by CT criteria. No inflammatory changes to suggest cholecystitis. ADRENAL GLANDS: No significant masses or asymmetry. RIGHT KIDNEY AND URETER: No solid masses. No significant calcifications. No hydronephrosis or hyd roureter. LEFT KIDNEY AND URETER: No solid masses. No significant calcifications. No hydronephrosis or hydr oureter. AORTA AND VESSELS: No aneurysm. No dissection. Renal arteries, SMA, celiac without stenosis. RETROPERITONEUM: No retroperitoneal adenopathy, hemorrhage or masses. BOWEL AND PERITONEAL CAVITY: No masses or inflammatory changes. No free fluid or peritoneal masses. APPENDIX: Not visualized. PELVIS: No mass. No free fluid. Normal bladder. ABDOMINAL WALL: No masses. No hernias. BONES: No significant or acute findings. OTHER: No other significant finding. IMPRESSION: Chronic pancreatitis. TECHNICAL DOCUMENTATION: JOB ID: [id number] Quality ID # [id number]: Final reports with documentation of one or more dose reduction techniques (e.g., Au tomated exposure control, adjustment of the mA and/or kV according to patient size, use of iterative reconstruction technique) 2010 [employer]- All Rights Reserved Reading location - IP/workstation name: [email or web address]
[2017-12-09] MEDS ORDERED: FENTANYL CITRATE INJ/PF 100 MCG/2 ML AMPUL IV ONE (13:19)
[2017-12-09 14:00] LABS: APPEARANCE,URINE CLOUDY; BILIRUBIN,URINE NEGATIVE (NEGATIVE); GLUCOSE, URINE 50 mg/dL (NEGATIVE); KETONES,URINE NEGATIVE (NEGATIVE); LEUKOCYTE ESTERASE,URINE LARGE (NEGATIVE); NITRITE,URINE POSITIVE (NEGATIVE); PROTEIN,URINE >=500 mg/dL (NEGATIVE); URINE SPECIFIC GRAVITY 1.032; UROBILINOGEN,URINE NEGATIVE mg/dL (<2.0)
[2017-12-09 14:04] LABS: COLOR,URINE YELLOW
[2017-12-09] MEDS ORDERED: FENTANYL CITRATE INJ/PF 100 MCG/2 ML AMPUL IV PRN ×2 (14:35→16:18)
[2017-12-09] MEDS ORDERED: CEFTRIAXONE INJ 1000 MG VIAL IV ONE ×2 (14:37→17:00)
[2017-12-09 15:18] LABS: URINE AMPHETAMINES SCREEN NEGATIVE; URINE BARBITURATES SCREEN NEGATIVE; URINE BENZODIAZEPINES SCREEN NEGATIVE; URINE COCAINE SCREEN NEGATIVE; URINE MARIJUANA (THC) SCREEN UNCONFIRMED POSITIVE; URINE METHADONE SCREEN NEGATIVE; URINE PHENCYCLIDINE SCREEN NEGATIVE
[2017-12-09] MEDS ORDERED: NORMAL SALINE 1000 ML 1,000 ML IV PRN (15:55)
[2017-12-09] MEDS ORDERED: ONDANSETRON 4 MG TAB.RAPDIS PO PRN (15:55)
[2017-12-09] MEDS ORDERED: ACETAMINOPHEN 325 MG TABLET PO PRN (15:55)
[2017-12-09] MEDS ORDERED: ONDANSETRON HCL INJ/PF 4 MG/2 ML SDV IV PRN (15:55)
[2017-12-09] MEDS ORDERED: DEXTROSE 50%-WATER 25 GM/50 ML DISP.SYRIN IV PRN ×2 (16:09)
[2017-12-09] MEDS ORDERED: DEXTROSE 40% GEL 15 GM TUBE PO PRN ×2 (16:09)
[2017-12-09] MEDS ORDERED: GLUCAGON,HUMAN RECOMB 1 MG INJ IM PRN (16:09)
[2017-12-09] MEDS ORDERED: LABETALOL HCL INJ 20 MG/4 ML DISP.SYRIN IV PRN (16:11)
[2017-12-09] MEDS ORDERED: NICOTINE 7 MG/24 HR PATCH.TD24 TD PRN (16:23)
--- NOTE | 2017-12-09 17:15 | PDOC H&P ---
History of Present Illness Admission Date/PCP: 12/09/17 15:20 Patient complains of: Abdominal pain with nausea and vomiting. Hypoglycemia. History of Present Illness: JJ HOFFMAN is a 37 year old female had been feeling poorly for the last 3-4 days. Yesterday she developed nausea and vomiting with diffuse abdominal pain and this persisted through today. Post emesis she felt no better. She reports regular bowel movements. She denies any productive cough or dysuria. She has history of chronic pancreatitis. This morning she checked her glucose and it was only 52. Recently her Lantus dose was decreased from 30 units daily to 16 units daily. When she is feeling good her blood glucose runs between 125-130. She also reports feeling cold all the time. Patient was recently admitted to [facility] and transferred to [facility] on November 10. She has had several emergency department visits prior to that as well. Of note, she is a poor historian. Past Medical History Cardiac Medical History: Reports: Hyperlipidema, Hypertension Pulmonary Medical History: Denies: Chronic Obstructive Pulmonary Disease (COPD) Neurological Medical History: Reports: Seizures Endocrine Medical History: Reports: Diabetes Mellitus Type 1, Diabetes Mellitus Type 2 Renal/ Medical History: Reports: Chronic Kidney Disease Denies: End Stage Renal Disease GI Medical History: Reports: Cirrhosis, Other - Chronic pancreatitis Musculoskeltal Medical History: Reports: Other - Chronic pain especially her legs and abdomen Denies: Arthritis Skin Medical History: Denies: Eczema, Psoriasis Psychiatric Medical History: Reports: Alcohol Dependency, Tobacco Dependency Denies: Dementia, Depression Hematology: Denies: Anemia Past Surgical History Past Surgical History: Reports: Section - x3, Hysterectomy Social History Information Source: Patient - She is a poor historian. Lives with: Family Smoking Status: Current Every Day Smoker Number of Years Smokin - Reports 5 cigarettes/day Last Time Smoked: Today Frequency of Alcohol Use: None Hx Recreational Drug Use: Yes Drugs: Marijuana Hx Prescription Drug Abuse: No Family History Family History: DM, Hypertension Parental Family History Reviewed: Yes - Diabetes and hypertension Children Family History Reviewed: Yes - Unremarkable Sibling(s) Family History Reviewed.: Yes - Hypertension, asthma, epilepsy Medication/Allergy Home Medications: Amlodipine Besylate [Norvasc 5 mg Tablet] 5 mg PO Q12 11/05/17 Divalproex Sodium [Depakote Sprinkle 125 mg Capsule] 250 mg PO Q8 11/05/17 Insulin Aspart [Novolog Flexpen] 0 units SQ .PERSLIDINGSCALE 11/05/17 Insulin Glargine,Hum.rec.anlog [Lantus Solostar] 30 units SQ QHS 11/05/17 Lisinopril [Zestril] 40 mg PO DAILY 11/05/17 Metoprolol Succinate [Toprol Xl 50 mg Tab.sr] 50 mg PO Q12 11/05/17 Allergies/Adverse Reactions: hydrocodone [From [place]] Allergy (Verified 12/09/17 11:54) morphine Allergy (Verified 12/09/17 11:54) Review of Systems Constitutional: PRESENT: headache(s), weakness, other - Feels cold but denies chills Eyes: ABSENT: visual disturbances Ears: ABSENT: hearing changes Nose, Mouth, and Throat: PRESENT: other - Dry mouth Cardiovascular: ABSENT: chest pain, edema, palpitations Respiratory: ABSENT: cough, dyspnea, hemoptysis, sputum Gastrointestinal: PRESENT: as per HPI, abdominal pain, nausea, vomiting Genitourinary: ABSENT: dysuria, hematuria Musculoskeletal: PRESENT: as per HPI. ABSENT: deformity, joint swelling Integumentary: ABSENT: diaphoresis, pruritus, rash Neurological: ABSENT: convulsions, focal weakness, numbness, tingling, tremor(s) Psychiatric: ABSENT: anxiety, depression Endocrine: ABSENT: cold intolerance, heat intolerance, polydipsia, polyuria Hematologic/Lymphatic: ABSENT: easy bleeding, easy bruising Allergic/Immunologic: ABSENT: seasonal rhinorrhea Physical Exam Vital Signs: Temp Pulse Resp BP Pulse Ox 98.5 F 17 180/106 H 100 12/09/17 13:08 12/09/17 14:01 12/09/17 14:01 12/09/17 14:01 General appearance: PRESENT: cooperative, mild distress, well-developed Head exam: PRESENT: atraumatic, normocephalic Eye exam: PRESENT: conjunctiva pink, EOMI. ABSENT: scleral icterus Ear exam: PRESENT: normal external ear exam Mouth exam: PRESENT: moist, neck supple Teeth exam: ABSENT: dental caries, dental tenderness Neck exam: ABSENT: carotid bruit, JVD, lymphadenopathy, thyromegaly Respiratory exam: PRESENT: clear to auscultation teddy, symmetrical, unlabored. ABSENT: rales, rhonchi, wheezes Cardiovascular exam: PRESENT: RRR, +S1, +S2, systolic murmur - 2/6 Pulses: PRESENT: normal radial pulses, normal dorsalis pedis pul Vascular exam: ABSENT: pallor GI/Abdominal exam: PRESENT: normal bowel sounds, soft, tenderness - Especially epigastrium and left lower quadrant. ABSENT: distended, guarding Rectal exam: PRESENT: deferred Extremities exam: ABSENT: calf tenderness, joint swelling, pedal edema Musculoskeletal exam: PRESENT: normal inspection Neurological exam: PRESENT: alert - Responds appropriately, awake, oriented to person, oriented to place, oriented to time, CN II-XII grossly intact, other Psychiatric exam: PRESENT: appropriate affect, other - Consistent with her clinical condition Focused psych exam: ABSENT: delusional, paranoid, pressured speech, restlessness Skin exam: PRESENT: dry, normal color, warm. ABSENT: abrasion, mottled Results Impressions: Abdomen/Pelvis CT 12/09/17 11:56 IMPRESSION: Chronic pancreatitis. Assessment & Plan - Diagnosis (1) Acute on chronic pancreatitis Is this a current diagnosis for this admission?: Yes Plan: The patient has history of chronic pancreatitis from alcohol abuse Her lipase is elevated. It has been as high as 800 in the past. She has no evidence of obstruction so we will try clear liquids but will discontinue this if her nausea and vomiting returns. She is on pancreatic enzyme replacement. As we advance her diet I will resume her medication. She still has epigastric and left lower quadrant pain. The left lower quadrant pain could be related to a urinary infection. We will continue to monitor her chemistries. She will receive normal saline at 200 mL an hour through the night. She did have a CT scan in the emergency department that did show changes in her pancreas consistent with her chronic pancreatitis. There is no evidence of phlegmon. (2) Nausea & vomiting Qualifiers: Vomiting type: unspecified Vomiting Intractability: non-intractable Qualified Code(s): R11.2 - Nausea with vomiting, unspecified Is this a current diagnosis for this admission?: Yes Plan: The patient's nausea and vomiting are less pronounced at the time of admission. Antiemetics have been ordered. She will also be on a proton pump inhibitor. Her IV fluids should replace any losses from emesis. (3) Abdominal pain Qualifiers: Abdominal location: epigastric Qualified Code(s): R10.13 - Epigastric pain Is this a current diagnosis for this admission?: Yes Plan: Her pain is epigastric (as well as left lower quadrant). She will be on IV pain medication for this evening. If her nausea and vomiting subsides then I will revert to her normal oral medications. Some of her abdominal pain could be related to a pyelonephritis. (4) Pyelonephritis Is this a current diagnosis for this admission?: Yes Plan: Review of the patient's urine analysis revealed pyuria with positive nitrites. She does have proteinuria but this is not surprising with her chronic kidney disease. I have asked for a urine culture and she will be on ceftriaxone 1 g daily until further results were obtained. (5) Hypoglycemia Is this a current diagnosis for this admission?: Yes Plan: The patient's low glucose this morning could be attributed to her nausea and vomiting with decreased oral intake last night. She will be on a sliding scale. I will hold her Lantus for tonight and review in the morning. (6) Chronic kidney disease Qualifiers: Chronic kidney disease stage: stage 3 (moderate) Qualified Code(s): N18.3 - Chronic kidney disease, stage 3 (moderate) Is this a current diagnosis for this admission?: Yes Plan: The patient's chronic kidney disease appears to be at baseline. We will continue to hydrate and monitor her kidney function. With a suspicion of pyelonephritis we will monitor closely. (7) Hypertension Qualifiers: Hypertension type: essential hypertension Is this a current diagnosis for this admission?: Yes Plan: The patient is on amlodipine, lisinopril and metoprolol. We will continue to monitor her pressure. She was likely exhibiting high blood pressure due to her pain and this should settle. As needed medication will also be available. (8) Seizure disorder Is this a current diagnosis for this admission?: Yes Plan: Unfortunately the patient did not report her recent history of seizure. Nor did she include her antiepileptic medications when questioned about her current medications. I did review pharmacies reconciliation and we will continue her medications at her most recent dose. (9) Tobacco abuse Is this a current diagnosis for this admission?: Yes Plan: We will continue to encourage smoking cessation. A nicotine patch will be available for any nicotine withdrawal symptoms. I will again reinforced the significance of smoking with all of her underlying comorbidities. - Time Time Spent: 50 to 70 Minutes Smoking Cessation Education: 3 to 10 minutes Medications reviewed and adjusted accordingly: Yes - Inpatient Certification Based on my medical assessment, after consideration of the patient's comorbidities, presenting symptoms, or acuity I expect that the services needed warrant INPATIENT care.: Yes I certify that my determination is in accordance with my understanding of Medicare's requirements for reasonable and necessary INPATIENT services [42 CFR 412.3e].: Yes Medical Necessity: Significant Comorbidiites Make Outpatient Treatment Too Risky , Need Close Monitoring Due to Risk of Patient Decompensation, Need For IV Fluids, Need For Continuous Telemetry Monitoring, Need for Pain Control, Need for IV Antibiotics - Plan Summary Plan Summary: In addition to the above, I have requested her discharge summary from her recent admission in [place]. This will probably add additional information at the patient is unable to recall.
[2017-12-09] MEDS: ENOXAPARIN SODIUM INJ 40 MG/0.4 ML DISP.SYRIN SUBCUT SCH (17:43)
[2017-12-09] MEDS ORDERED: CEFTRIAXONE SODIUM 1,000 MG in DEXTROSE 5%-WATER 50 ML IV SCH (18:00)
[2017-12-09] MEDS ORDERED: METOPROLOL TARTRATE 50 MG TABLET PO SCH (22:00)
[2017-12-09] MEDS: LISINOPRIL 10 MG TABLET PO SCH (22:08)
[2017-12-09] MEDS: METOPROLOL SUCCINATE 50 MG TAB.SR.24H PO SCH (22:09)
[2017-12-09] MEDS: AMLODIPINE BESYLATE 5 MG TABLET PO SCH (22:09)
[2017-12-09] MEDS: INSULIN LISPRO 100 UNIT/ML 3 ML VIAL SUBCUT PRN (22:11)
[2017-12-09] MEDS ORDERED: DIVALPROEX SODIUM 125 MG CAP.SPRINK PO ONE (22:29)
[2017-12-09] MEDS: DIVALPROEX SODIUM 125 MG CAP.SPRINK PO SCH (22:33)
[2017-12-10] MEDS: OXYCODONE-ACETAMINOPHEN 5-325 MG TABLET PO PRN ×4 (02:17→22:32)
[2017-12-10] MEDS: LANSOPRAZOLE 30 MG TAB.RAP.DR PO SCH (05:29)
[2017-12-10] MEDS: DIVALPROEX SODIUM 125 MG CAP.SPRINK PO SCH ×3 (05:29→21:32)
[2017-12-10 07:33] LABS: ABSOLUTE BASOPHILS # (AUTO) 0.1 10^3/uL (0.0-0.2); ABSOLUTE EOSINOPHILS # (AUTO) 0.1 10^3/uL (0.0-0.6); ABSOLUTE MONOCYTES (AUTO) 1.2 10^3/uL (0.1-1.4); ABSOLUTE NEUT (AUTO) 10.6 10^3/uL (1.7-8.2); BASOPHILS % (AUTO) 0.6 % (0-2); EOSINOPHILS % (AUTO) 0.5 % (0-6); HEMATOCRIT 28.1 % (36.0-47.0); HEMOGLOBIN 9.7 g/dL (12.0-15.5); LYMPHOCYTES % (AUTO) 14.3 % (13-45); MEAN CORPUSCULAR HEMOGLOBIN 30.1 pg (27.0-33.4); MEAN CORPUSCULAR HGB CONC 34.4 g/dL (32.0-36.0); MEAN CORPUSCULAR VOLUME 87 fl (80-97); MONOCYTES % (AUTO) 8.8 % (3-13); PLATELET COUNT 272 10^3/uL (150-450); RED BLOOD COUNT 3.22 10^6/uL (3.72-5.28); SEGMENTED NEUTROPHILS % (AUTO) 75.8 % (42-78); TOTAL CELLS COUNTED % (AUTO) 100 %
[2017-12-10 07:48] LABS: ANION GAP 8 (5-19); BLOOD UREA NITROGEN 18 mg/dL (7-20); CALCIUM 8.5 mg/dL (8.4-10.2); CARBON DIOXIDE 26 mmol/L (22-30); CHLORIDE 107 mmol/L (98-107); GLUCOSE 49 mg/dL (75-110); POTASSIUM 4.1 mmol/L (3.6-5.0); SODIUM 140.7 mmol/L (137-145)
[2017-12-10] MEDS: LISINOPRIL 10 MG TABLET PO SCH ×2 (09:24→21:33)
[2017-12-10] MEDS: AMLODIPINE BESYLATE 5 MG TABLET PO SCH ×2 (09:25→21:33)
[2017-12-10] MEDS: ENOXAPARIN SODIUM INJ 40 MG/0.4 ML DISP.SYRIN SUBCUT SCH (09:26)
[2017-12-10] MEDS: METOPROLOL SUCCINATE 50 MG TAB.SR.24H PO SCH ×2 (09:26→21:33)
[2017-12-10] MEDS: INSULIN GLARGINE,HUM.REC.ANLOG 300 UNIT/3 ML INSULN.PEN SUBCUT SCH (09:27)
[2017-12-10] MEDS ORDERED: AMLODIPINE BESYLATE 10 MG TABLET PO SCH (10:00)
[2017-12-10] MEDS ORDERED: CEFTRIAXONE 1 GM/D5W RTU 1 GM/50 ML RTUPB IV SCH (10:00)
[2017-12-10] MEDS ORDERED: INSULIN GLARGINE,HUM.REC.ANLOG 300 UNIT/3 ML INSULN.PEN SUBCUT SCH (10:00)
--- NOTE | 2017-12-10 10:38 | PDOC PROGRESS REPORT ---
Subjective Progress Note for:: 12/10/17 Subjective:: Patient feels slightly better today. She still has abdominal pain but it is improved somewhat. She has been tolerating her full liquid diet without difficulty. Unfortunately IV access was lost. Multiple tries were unsuccessful. PICC line is unavailable today. See discussion below. Reason For Visit: ACUTE ON CHRONIC PANCREATITIS,PYELONEPHRITIS, Physical Exam Vital Signs: Temp Pulse Resp BP Pulse Ox 98.5 F 80 16 146/84 H 99 12/10/17 08:00 12/10/17 08:00 12/10/17 08:00 12/10/17 08:00 12/10/17 08:00 Intake & Output 12/09/17 12/10/17 12/11/17 06:59 06:59 05:59 Intake Total 1158 1999 Balance 1158 1999 Weight 66.4 kg General appearance: PRESENT: mild distress, well-developed Head exam: PRESENT: atraumatic, normocephalic Eye exam: PRESENT: conjunctiva pale, EOMI. ABSENT: scleral icterus Ear exam: PRESENT: normal external ear exam Mouth exam: PRESENT: moist, neck supple, tongue midline Neck exam: ABSENT: carotid bruit, JVD, lymphadenopathy Respiratory exam: PRESENT: clear to auscultation teddy, symmetrical, unlabored. ABSENT: rales, rhonchi, wheezes Cardiovascular exam: PRESENT: RRR, +S1, +S2, systolic murmur - 3/6 Pulses: PRESENT: normal radial pulses, +2 pedal pulses bilateral GI/Abdominal exam: PRESENT: normal bowel sounds, soft, tenderness. ABSENT: guarding Extremities exam: ABSENT: calf tenderness, joint swelling Neurological exam: PRESENT: alert, awake, oriented to person, oriented to place , CN II-XII grossly intact Psychiatric exam: PRESENT: flat affect Focused psych exam: ABSENT: delusional, paranoid, restlessness Results Laboratory Results: 12/10/17 07:12 12/10/17 07:12 12/10/17 12/10/17 07:12 07:12 WBC 14.0 H RBC 3.22 L Hgb 9.7 L Hct 28.1 L MCV 87 MCH 30.1 MCHC 34.4 RDW 15.0 H Plt Count 272 Seg Neutrophils % 75.8 Lymphocytes % 14.3 Monocytes % 8.8 Eosinophils % 0.5 Basophils % 0.6 Absolute Neutrophils 10.6 H Absolute Lymphocytes 2.0 Absolute Monocytes 1.2 Absolute Eosinophils 0.1 Absolute Basophils 0.1 Sodium 140.7 Potassium 4.1 Chloride 107 Carbon Dioxide 26 Anion Gap 8 BUN 18 Creatinine 1.26 H Est GFR ( Amer) 58 L Est GFR (Non-Af Amer) 48 L Glucose 49 L Calcium 8.5 Magnesium 1.8 Lipase 212.0 Impressions: Abdomen/Pelvis CT 12/09/17 11:56 IMPRESSION: Chronic pancreatitis. Assessment & Plan - Diagnosis (1) Acute on chronic pancreatitis Is this a current diagnosis for this admission?: Yes Plan: The patient has history of chronic pancreatitis from alcohol abuse Her lipase is elevated. It has been as high as 800 in the past. She has no evidence of obstruction so we will try clear liquids but will discontinue this if her nausea and vomiting returns. She is on pancreatic enzyme replacement. As we advance her diet I will resume her medication. She still has epigastric and left lower quadrant pain. The left lower quadrant pain could be related to a urinary infection. We will continue to monitor her chemistries. She will receive normal saline at 200 mL an hour through the night. She did have a CT scan in the emergency department that did show changes in her pancreas consistent with her chronic pancreatitis. There is no evidence of phlegmon. Her lipase is down to 200. She does have chronic pancreatitis and her normal levels tend to be elevated. I am going to advance her to a regular texture consistent carbohydrate low-fat diet. I am going to start pancreatic enzyme replacement. If she does well today I will likely discharge her tomorrow. (2) Nausea & vomiting Qualifiers: Vomiting type: unspecified Vomiting Intractability: non-intractable Qualified Code(s): R11.2 - Nausea with vomiting, unspecified Is this a current diagnosis for this admission?: Yes Plan: The patient's nausea and vomiting are less pronounced at the time of admission. Antiemetics have been ordered. She will also be on a proton pump inhibitor. Her IV fluids should replace any losses from emesis. 12/10/2017-the patient did not require Zofran last night or this morning. This is with her intake of full liquid diet. Have discontinue the Zofran due to an interaction with her antibiotic. (3) Abdominal pain Qualifiers: Abdominal location: epigastric Qualified Code(s): R10.13 - Epigastric pain Is this a current diagnosis for this admission?: Yes Plan: Her pain is epigastric (as well as left lower quadrant). She will be on IV pain medication for this evening. If her nausea and vomiting subsides then I will revert to her normal oral medications. Some of her abdominal pain could be related to a pyelonephritis. 12/10/2017-she still has epigastric discomfort but this is chronic with her chronic pancreatitis. She still has some left lower quadrant discomfort. In general I believe this is improved. Unfortunately we have lost IV access and so now she is on oral medication for pain. (4) Pyelonephritis Is this a current diagnosis for this admission?: Yes Plan: Review of the patient's urine analysis revealed pyuria with positive nitrites. She does have proteinuria but this is not surprising with her chronic kidney disease. I have asked for a urine culture and she will be on ceftriaxone 1 g daily until further results were obtained. 12/10/2017-unfortunately pyuria, proteinuria and positive nitrites are the only results available. Urine culture was not collected because she is already received antibiotic therapy. Because we have lost IV access, and I believe a central line is overkill at this time (PICC line not available on weekends), I am going to change her to oral levofloxacin which has the same bioavailability as intravenous dosing. Her creatinine clearance is greater than 49 and no dose adjustment is available. She received 750 mg p.o. daily for 5 days. Her white count is slightly higher today. I will recheck it in the morning. With the 3 days of antibiotic therapy it should begin to decrease. (5) Hypoglycemia Is this a current diagnosis for this admission?: Yes Plan: The patient's low glucose this morning could be attributed to her nausea and vomiting with decreased oral intake last night. She will be on a sliding scale. I will hold her Lantus for tonight and review in the morning. 12/10/2017-the patient glucose this morning was low. Her glucose in the evenings tends to be high. I have decreased her dose to 12 units this morning. She may benefit from evening dosing of her Lantus. I will follow her fingersticks and see how much sliding scale coverage she requires. I will likely discharge her on a different regimen than previously as she had been having hypoglycemic events. (6) Chronic kidney disease Qualifiers: Chronic kidney disease stage: stage 3 (moderate) Qualified Code(s): N18.3 - Chronic kidney disease, stage 3 (moderate) Is this a current diagnosis for this admission?: Yes Plan: The patient's chronic kidney disease appears to be at baseline. We will continue to hydrate and monitor her kidney function. With a suspicion of pyelonephritis we will monitor closely. The patient did receive IV fluids. Her GFR this morning was 58. I did explain to her that if she did not drink enough fluids we would have to put a central line in her. She states that she has been drinking water. She was 1100 cc positive yesterday. We will continue to monitor her intake and output. (7) Hypertension Qualifiers: Hypertension type: essential hypertension Is this a current diagnosis for this admission?: Yes Plan: The patient is on amlodipine, lisinopril and metoprolol. We will continue to monitor her pressure. She was likely exhibiting high blood pressure due to her pain and this should settle. As needed medication will also be available. 12/10/2017-her blood pressure slightly high this morning but I believe this is due to her ongoing pain. At 3:00 this morning her blood pressure was normal. We will continue her current medications. (8) Seizure disorder Is this a current diagnosis for this admission?: Yes Plan: Unfortunately the patient did not report her recent history of seizure. Nor did she include her antiepileptic medications when questioned about her current medications. I did review pharmacies reconciliation and we will continue her medications at her most recent dose. 12/10/2017-we are continuing the patient's seizure medications that she was on at the time of admission. No seizure-like activities noted. (9) Tobacco abuse Is this a current diagnosis for this admission?: Yes Plan: We will continue to encourage smoking cessation. A nicotine patch will be available for any nicotine withdrawal symptoms. I will again reinforced the significance of smoking with all of her underlying comorbidities. 12/10/2017-continu to encourage tobacco cessation. Nicotine patch is available. - Time Time Spent with patient: 15-24 minutes Medications reviewed and adjusted accordingly: Yes Anticipated discharge: Home - Plan Summary Plan Summary: Unfortunately the patient has very poor IV access. PICC line is not available on the weekends. I feel a central line at this point has more risk than benefit. I explained to the patient that she needs to drink lots of water. If she tolerates a regular diet with pancreatic enzymes today then she will go home tomorrow. Due to the lack of IV access I have changed her antibiotic to levofloxacin for suspected pyelonephritis. Urine culture was not obtained prior to initiating antibiotic therapy. Levofloxacin does have the same bioavailability whether dose oral or IV. If her condition changes then we will be forced to put a central line in place.
[2017-12-10] MEDS: INSULIN LISPRO 100 UNIT/ML 3 ML VIAL SUBCUT PRN ×2 (12:34→21:52)
[2017-12-10] MEDS: LEVOFLOXACIN 750 MG TABLET PO SCH (12:35)
[2017-12-10] MEDS: LIPASE/PROTEASE/AMYLASE 1 CAP CAPSULE.DR PO SCH (15:30)
[2017-12-10] MEDS ORDERED: LIPASE/PROTEASE/AMYLASE 1 CAP CAPSULE.DR PO SCH (16:00)
[2017-12-10] MEDS: PROMETHAZINE HCL 25 MG TABLET PO PRN (18:29)
[2017-12-11] MEDS: PROMETHAZINE HCL 25 MG TABLET PO PRN ×3 (00:32→21:21)
[2017-12-11] MEDS: DIVALPROEX SODIUM 125 MG CAP.SPRINK PO SCH ×3 (05:39→21:26)
[2017-12-11] MEDS: LANSOPRAZOLE 30 MG TAB.RAP.DR PO SCH (05:39)
[2017-12-11] MEDS: OXYCODONE-ACETAMINOPHEN 5-325 MG TABLET PO PRN ×3 (05:40→21:18)
[2017-12-11] MEDS: LIPASE/PROTEASE/AMYLASE 1 CAP CAPSULE.DR PO SCH ×3 (08:07→16:49)
[2017-12-11 09:25] LABS: ABSOLUTE BASOPHILS # (AUTO) 0.1 10^3/uL (0.0-0.2); ABSOLUTE EOSINOPHILS # (AUTO) 0.1 10^3/uL (0.0-0.6); ABSOLUTE LYMPHOCYTES (AUTO) 2.2 10^3/uL (0.5-4.7); ABSOLUTE NEUT (AUTO) 6.1 10^3/uL (1.7-8.2); BASOPHILS % (AUTO) 0.5 % (0-2); EOSINOPHILS % (AUTO) 1.2 % (0-6); HEMATOCRIT 28.2 % (36.0-47.0); HEMOGLOBIN 9.4 g/dL (12.0-15.5); LYMPHOCYTES % (AUTO) 23.6 % (13-45); MEAN CORPUSCULAR HEMOGLOBIN 29.2 pg (27.0-33.4); MEAN CORPUSCULAR HGB CONC 33.2 g/dL (32.0-36.0); MEAN CORPUSCULAR VOLUME 88 fl (80-97); MONOCYTES % (AUTO) 10.9 % (3-13); PLATELET COUNT 274 10^3/uL (150-450); RED BLOOD COUNT 3.21 10^6/uL (3.72-5.28); RED CELL DISTRIBUTION WIDTH 14.8 % (11.5-14.0); SEGMENTED NEUTROPHILS % (AUTO) 63.8 % (42-78); TOTAL CELLS COUNTED % (AUTO) 100 %; WHITE BLOOD COUNT 9.5 10^3/uL (4.0-10.5)
[2017-12-11 09:44] LABS: ANION GAP 8 (5-19); BLOOD UREA NITROGEN 20 mg/dL (7-20); CALCIUM 9.3 mg/dL (8.4-10.2); CARBON DIOXIDE 26 mmol/L (22-30); CHLORIDE 107 mmol/L (98-107); GLUCOSE 220 mg/dL (75-110); LIPASE 88.9 U/L (23-300); POTASSIUM 4.6 mmol/L (3.6-5.0)
[2017-12-11] MEDS: INSULIN GLARGINE,HUM.REC.ANLOG 300 UNIT/3 ML INSULN.PEN SUBCUT SCH (10:07)
[2017-12-11] MEDS: ENOXAPARIN SODIUM INJ 40 MG/0.4 ML DISP.SYRIN SUBCUT SCH (10:07)
[2017-12-11] MEDS: METOPROLOL SUCCINATE 50 MG TAB.SR.24H PO SCH ×2 (10:09→21:20)
[2017-12-11] MEDS: LEVOFLOXACIN 750 MG TABLET PO SCH (10:09)
[2017-12-11] MEDS: AMLODIPINE BESYLATE 5 MG TABLET PO SCH ×2 (10:09→21:21)
[2017-12-11] MEDS: LISINOPRIL 10 MG TABLET PO SCH ×2 (10:09→21:21)
[2017-12-11] MEDS ORDERED: INSULIN LISPRO 100 UNIT/ML 3 ML VIAL SUBCUT ONE (12:00)
--- NOTE | 2017-12-11 13:18 | PDOC PROGRESS REPORT ---
Subjective Reason For Visit: ACUTE ON CHRONIC PANCREATITIS,PYELONEPHRITIS, Physical Exam Vital Signs: Temp Pulse Resp BP Pulse Ox 97.9 F 90 15 136/73 H 99 12/11/17 11:51 12/11/17 11:51 12/11/17 11:51 12/11/17 11:51 12/11/17 11:51 Intake & Output 12/10/17 12/11/17 12/12/17 07:59 06:59 06:59 Intake Total Balance Weight Results Laboratory Results: 12/11/17 08:33 12/11/17 09:12 12/11/17 12/11/17 08:33 09:12 WBC 9.5 RBC 3.21 L Hgb 9.4 L Hct 28.2 L MCV 88 MCH 29.2 MCHC 33.2 RDW 14.8 H Plt Count 274 Seg Neutrophils % 63.8 Lymphocytes % 23.6 Monocytes % 10.9 Eosinophils % 1.2 Basophils % 0.5 Absolute Neutrophils 6.1 Absolute Lymphocytes 2.2 Absolute Monocytes 1.0 Absolute Eosinophils 0.1 Absolute Basophils 0.1 Sodium 141.0 Potassium 4.6 Chloride 107 Carbon Dioxide 26 Anion Gap 8 BUN 20 Creatinine 1.30 H Est GFR ( Amer) 56 L Est GFR (Non-Af Amer) 46 L Glucose 220 H Calcium 9.3 Magnesium 2.0 Lipase 88.9 Impressions: Abdomen/Pelvis CT 12/09/17 11:56 IMPRESSION: Chronic pancreatitis. Assessment & Plan - Diagnosis (1) Acute on chronic pancreatitis Is this a current diagnosis for this admission?: Yes Plan: The patient has history of chronic pancreatitis from alcohol abuse Her lipase is elevated. It has been as high as 800 in the past. She has no evidence of obstruction so we will try clear liquids but will discontinue this if her nausea and vomiting returns. She is on pancreatic enzyme replacement. As we advance her diet I will resume her medication. She still has epigastric and left lower quadrant pain. The left lower quadrant pain could be related to a urinary infection. We will continue to monitor her chemistries. She will receive normal saline at 200 mL an hour through the night. She did have a CT scan in the emergency department that did show changes in her pancreas consistent with her chronic pancreatitis. There is no evidence of phlegmon. Her lipase is down to 200. She does have chronic pancreatitis and her normal levels tend to be elevated. I am going to advance her to a regular texture consistent carbohydrate low-fat diet. I am going to start pancreatic enzyme replacement. If she does well today I will likely discharge her tomorrow. 12/11/2017-today her lipase is normal (88). Her sugar has been better controlled but at lunch it was greater than 500. This does not make sense with the consistency of her sugars and no big changes in her insulin regimen. I have increased her Lantus to 16 units in the mornings which is what she was on previously. (2) Nausea & vomiting Qualifiers: Vomiting type: unspecified Vomiting Intractability: non-intractable Qualified Code(s): R11.2 - Nausea with vomiting, unspecified Is this a current diagnosis for this admission?: Yes Plan: The patient's nausea and vomiting are less pronounced at the time of admission. Antiemetics have been ordered. She will also be on a proton pump inhibitor. Her IV fluids should replace any losses from emesis. 12/10/2017-the patient did not require Zofran last night or this morning. This is with her intake of full liquid diet. Have discontinue the Zofran due to an interaction with her antibiotic. The patient had one emesis episode earlier today. She is on Phenergan as needed. (3) Abdominal pain Qualifiers: Abdominal location: epigastric Qualified Code(s): R10.13 - Epigastric pain Is this a current diagnosis for this admission?: Yes Plan: Her pain is epigastric (as well as left lower quadrant). She will be on IV pain medication for this evening. If her nausea and vomiting subsides then I will revert to her normal oral medications. Some of her abdominal pain could be related to a pyelonephritis. 12/10/2017-she still has epigastric discomfort but this is chronic with her chronic pancreatitis. She still has some left lower quadrant discomfort. In general I believe this is improved. Unfortunately we have lost IV access and so now she is on oral medication for pain. 12/11/2017-today she complains of pain on the left flank into the groin. The CT scan of the abdomen and pelvis did not show any remarkable changes in the kidneys or ureters. Continue as needed analgesia. (4) Pyelonephritis Is this a current diagnosis for this admission?: Yes Plan: Review of the patient's urine analysis revealed pyuria with positive nitrites. She does have proteinuria but this is not surprising with her chronic kidney disease. I have asked for a urine culture and she will be on ceftriaxone 1 g daily until further results were obtained. 12/10/2017-unfortunately pyuria, proteinuria and positive nitrites are the only results available. Urine culture was not collected because she is already received antibiotic therapy. Because we have lost IV access, and I believe a central line is overkill at this time (PICC line not available on weekends), I am going to change her to oral levofloxacin which has the same bioavailability as intravenous dosing. Her creatinine clearance is greater than 49 and no dose adjustment is available. She received 750 mg p.o. daily for 5 days. Her white count is slightly higher today. I will recheck it in the morning. With the 3 days of antibiotic therapy it should begin to decrease. 12/11/2017-patient's white blood cell count is normal. She reports that her urine is clearing although she does not save the specimen. I have ordered a urinalysis with her next void to compared to the urinalysis at admission. Unfortunately the culture was not ordered previously. We will continue her antibiotics as ordered for now. I believe the left-sided pain is in fact part of her chronic pain syndrome but we will check a urine specimen to be sure. (5) Hypoglycemia Is this a current diagnosis for this admission?: Yes Plan: The patient's low glucose this morning could be attributed to her nausea and vomiting with decreased oral intake last night. She will be on a sliding scale. I will hold her Lantus for tonight and review in the morning. 12/10/2017-the patient glucose this morning was low. Her glucose in the evenings tends to be high. I have decreased her dose to 12 units this morning. She may benefit from evening dosing of her Lantus. I will follow her fingersticks and see how much sliding scale coverage she requires. I will likely discharge her on a different regimen than previously as she had been having hypoglycemic events. 12/11/2017-as noted above she had a markedly elevated sugar at lunch. This is acceptable considering the good control that she has had. I have increased her Lantus as her hypoglycemia is completely resolved. (6) Chronic kidney disease Qualifiers: Chronic kidney disease stage: stage 3 (moderate) Qualified Code(s): N18.3 - Chronic kidney disease, stage 3 (moderate) Is this a current diagnosis for this admission?: Yes Plan: The patient's chronic kidney disease appears to be at baseline. We will continue to hydrate and monitor her kidney function. With a suspicion of pyelonephritis we will monitor closely. The patient did receive IV fluids. Her GFR this morning was 58. I did explain to her that if she did not drink enough fluids we would have to put a central line in her. She states that she has been drinking water. She was 1100 cc positive yesterday. We will continue to monitor her intake and output. 12/11/2017-her IV access was limited and she received initial IV fluids but none since lost her IV. She is taking p.o. fluids. Even with IV contrast her chronic kidney failure has been stable. (7) Hypertension Qualifiers: Hypertension type: essential hypertension Is this a current diagnosis for this admission?: Yes Plan: The patient is on amlodipine, lisinopril and metoprolol. We will continue to monitor her pressure. She was likely exhibiting high blood pressure due to her pain and this should settle. As needed medication will also be available. 12/10/2017-her blood pressure slightly high this morning but I believe this is due to her ongoing pain. At 3:00 this morning her blood pressure was normal. We will continue her current medications. 12/11/2017-her blood pressure is reasonably controlled taking into account fluctuations for pain. Continue current regimen. (8) Seizure disorder Is this a current diagnosis for this admission?: Yes Plan: Unfortunately the patient did not report her recent history of seizure. Nor did she include her antiepileptic medications when questioned about her current medications. I did review pharmacies reconciliation and we will continue her medications at her most recent dose. 12/10/2017-we are continuing the patient's seizure medications that she was on at the time of admission. No seizure-like activities noted. 12/11/2017-continue current medications (Depakote 250 mg every 8 hours). (9) Tobacco abuse Is this a current diagnosis for this admission?: Yes - Time Time Spent with patient: 25-34 minutes Medications reviewed and adjusted accordingly: Yes - Plan Summary Plan Summary: The patient still complains of left-sided pain. Based on the CT results and the urinalysis obtained in the emergency department cystitis is likely but there are no inflammatory changes in the kidney to suggest pyelonephritis however this is not full proof. I will recheck a urine specimen today. If this is negative then I will not repeat a CT scan. If that is the case this is likely part of her chronic pain syndrome and we will discharge her tomorrow. I believe the high glucose at lunchtime today was spurious especially considering her good control over the last 24-36 hours. She will discharged on her 16 units of Lantus.
[2017-12-11 15:13] LABS: APPEARANCE,URINE CLEAR; BILIRUBIN,URINE NEGATIVE (NEGATIVE); COLOR,URINE COLORLESS; GLUCOSE, URINE >=500 mg/dL (NEGATIVE); KETONES,URINE NEGATIVE (NEGATIVE); LEUKOCYTE ESTERASE,URINE NEGATIVE (NEGATIVE); NITRITE,URINE NEGATIVE (NEGATIVE); PROTEIN,URINE 100 mg/dL (NEGATIVE); URINE SPECIFIC GRAVITY 1.007; UROBILINOGEN,URINE NEGATIVE mg/dL (<2.0)
[2017-12-11] MEDS: INSULIN LISPRO 100 UNIT/ML 3 ML VIAL SUBCUT PRN (21:26)
[2017-12-12] MEDS: OXYCODONE-ACETAMINOPHEN 5-325 MG TABLET PO PRN ×2 (03:31→10:41)
[2017-12-12] MEDS: PROMETHAZINE HCL 25 MG TABLET PO PRN ×2 (03:32→10:42)
[2017-12-12] MEDS: DIVALPROEX SODIUM 125 MG CAP.SPRINK PO SCH ×2 (05:28→15:52)
[2017-12-12] MEDS: LANSOPRAZOLE 30 MG TAB.RAP.DR PO SCH (05:28)
[2017-12-12] MEDS: INSULIN LISPRO 100 UNIT/ML 3 ML VIAL SUBCUT PRN ×2 (06:46→17:57)
[2017-12-12 06:50] LABS: ABSOLUTE BASOPHILS # (AUTO) 0.1 10^3/uL (0.0-0.2); ABSOLUTE EOSINOPHILS # (AUTO) 0.1 10^3/uL (0.0-0.6); ABSOLUTE MONOCYTES (AUTO) 1.1 10^3/uL (0.1-1.4); ABSOLUTE NEUT (AUTO) 4.4 10^3/uL (1.7-8.2); BASOPHILS % (AUTO) 1.3 % (0-2); EOSINOPHILS % (AUTO) 1.2 % (0-6); HEMATOCRIT 26.7 % (36.0-47.0); LYMPHOCYTES % (AUTO) 26.1 % (13-45); MEAN CORPUSCULAR HEMOGLOBIN 29.8 pg (27.0-33.4); MEAN CORPUSCULAR HGB CONC 34.2 g/dL (32.0-36.0); MEAN CORPUSCULAR VOLUME 87 fl (80-97); MONOCYTES % (AUTO) 13.8 % (3-13); PLATELET COUNT 231 10^3/uL (150-450); RED BLOOD COUNT 3.07 10^6/uL (3.72-5.28); RED CELL DISTRIBUTION WIDTH 14.6 % (11.5-14.0); SEGMENTED NEUTROPHILS % (AUTO) 57.6 % (42-78); TOTAL CELLS COUNTED % (AUTO) 100 %; WHITE BLOOD COUNT 7.6 10^3/uL (4.0-10.5)
[2017-12-12 06:52] LABS: ANION GAP 13 (5-19); BLOOD UREA NITROGEN 33 mg/dL (7-20); CALCIUM 8.7 mg/dL (8.4-10.2); CARBON DIOXIDE 23 mmol/L (22-30); CHLORIDE 102 mmol/L (98-107); LIPASE 140.7 U/L (23-300); POTASSIUM 4.4 mmol/L (3.6-5.0); SODIUM 137.7 mmol/L (137-145)
[2017-12-12 06:53] LABS: HEMOGLOBIN 9.1 g/dL (12.0-15.5)
[2017-12-12 07:11] LABS: GLUCOSE 403 mg/dL (75-110)
[2017-12-12] MEDS: LISINOPRIL 10 MG TABLET PO SCH (09:05)
[2017-12-12] MEDS: METOPROLOL SUCCINATE 50 MG TAB.SR.24H PO SCH (09:05)
[2017-12-12] MEDS: LEVOFLOXACIN 750 MG TABLET PO SCH (09:05)
[2017-12-12] MEDS: ENOXAPARIN SODIUM INJ 40 MG/0.4 ML DISP.SYRIN SUBCUT SCH (09:05)
[2017-12-12] MEDS: AMLODIPINE BESYLATE 5 MG TABLET PO SCH (09:05)
[2017-12-12] MEDS: LIPASE/PROTEASE/AMYLASE 1 CAP CAPSULE.DR PO SCH ×3 (09:05→15:52)
[2017-12-12] MEDS ORDERED: INSULIN GLARGINE,HUM.REC.ANLOG 300 UNIT/3 ML INSULN.PEN SUBCUT SCH ×2 (10:00→15:48)
[2017-12-12 17:39] VITALS: BP 136/73
--- NOTE | 2017-12-12 20:02 | PDOC DISCHARGE SUMMARY ---
General - Admit/Disc Date/PCP Admission Date/Primary Care Provider: 12/09/17 15:20 Discharge Date: 12/12/17 - Discharge Diagnosis (1) Acute on chronic pancreatitis Is this a current diagnosis for this admission?: Yes Summary: The patient has recurrent bouts of pancreatitis. Her serum lipase was significantly improved. I initiated Pancrease enzyme supplement with meals. This should help the patient. Unfortunately she is extremely noncompliant with her medications. I think she will feel somewhat better if she takes these medications on a regular basis. The underlying current of all of the encounters focused on pain medication. (2) Nausea & vomiting Is this a current diagnosis for this admission?: Yes Summary: The patient's nausea and vomiting seemed to settle after the first 2 days. She did have as needed medications available. She was tolerating regular diet. (3) Abdominal pain Is this a current diagnosis for this admission?: Yes Summary: Unfortunately the patient's complaints of pain were ongoing. She has a chronic pain patient and her pain is in the abdomen from her chronic pancreatitis as well as several other areas. Her urinalysis was significantly improved from admission. She will always have pain from her pancreas. They suggested that she visit a chronic pain management clinic if possible. (4) Pyelonephritis Is this a current diagnosis for this admission?: Yes Summary: The patient's urinalysis improved significantly. Unfortunately a urine culture was never obtained. She certainly improved on the levofloxacin. The CT scan did not show any evidence of inflammation in the kidney and so it is more likely that this was a severe cystitis. She will complete her levofloxacin therapy as an outpatient. (5) Hypoglycemia Is this a current diagnosis for this admission?: Yes Summary: The patient's glucose readings varied significantly during her stay. This is surprising because for the first 2 days she exhibited good control. I increased her daily Lantus to 20 units and we actually provided her with a sliding scale to follow when she tests her sugars at mealtime and bedtime. Unfortunately her pattern of noncompliance is worrisome. I think will be a matter of time before she presents to the hospital again. (6) Chronic kidney disease Is this a current diagnosis for this admission?: Yes Summary: Her renal function remained stable. Her GFR on her last blood test was approximately 49. Again her poor compliance puts her at significant risk. 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 (7) Hypertension Is this a current diagnosis for this admission?: Yes Summary: Reasonably controlled on her current medication regimen. I did suggest that she split her lisinopril to 20 mg twice daily instead of 40 mg at once. (8) Seizure disorder Is this a current diagnosis for this admission?: Yes Summary: No seizure activity during her hospitalization. Continue current medication regimen. (9) Tobacco abuse Is this a current diagnosis for this admission?: Yes Summary: Continue to encourage the patient to stop smoking. - Additional Information Discharge Diet: Diabetic Discharge Activity: Activity As Tolerated, Balance Activity w/Rest, Slowly Increase Activity Prescriptions: Insulin Glargine,Hum.rec.anlog [Lantus Insulin 100 Unit/mL] 20 unit SUBCUT DAILY 30 Days #2 insuln.pen Insulin Aspart [Novolog Flexpen] 5 unit SQ MEALS 30 Days #3 insuln.pen MDD 12 Levofloxacin [Levaquin 750 mg Tablet] 750 mg PO DAILY 4 Days #4 tablet Lipase/Protease/Amylase [Pancreaze-10 Capsule.] 1 cap PO AC 30 Days #90 capsule. Lisinopril [Prinivil 10 mg Tablet] 20 mg PO Q12 30 Days #60 tablet Oxycodone HCl/Acetaminophen [Percocet 5-325 mg Tablet] 2 tab PO Q4HP PRN 10 Days #15 tablet MDD 6 PRN Reason: For Pain Home Medications: Amlodipine Besylate [Norvasc 5 mg Tablet] 5 mg PO Q12 11/05/17 Divalproex Sodium [Depakote Sprinkle 125 mg Capsule] 250 mg PO Q8 11/05/17 Insulin Aspart [Novolog Flexpen] 0 units SQ .PERSLIDINGSCALE 11/05/17 Metoprolol Succinate [Toprol Xl 50 mg Tab.sr] 50 mg PO Q12 11/05/17 Insulin Aspart [Novolog Flexpen] 5 unit SQ MEALS 30 Days #3 insuln.pen MDD 12 Insulin Glargine,Hum.rec.anlog [Lantus Insulin 100 Unit/mL] 20 unit SUBCUT DAILY 30 Days #2 insuln.pen 12/12/17 Insulin Lispro [Humalog Insulin (Lispro) 100 unit/mL] 0 - 12 unit SUBCUT ACHSP PRN unit 12/12/17 Levofloxacin [Levaquin 750 mg Tablet] 750 mg PO DAILY 4 Days #4 tablet 12/12/17 Lipase/Protease/Amylase [Pancreaze-10 Capsule.] 1 cap PO AC 30 Days #90 capsule. 12/12/17 Lisinopril [Prinivil 10 mg Tablet] 20 mg PO Q12 30 Days #60 tablet 12/12/17 Oxycodone HCl/Acetaminophen [Percocet 5-325 mg Tablet] 2 tab PO Q4HP PRN 10 Days #15 tablet MDD 6 12/12/17 History of Present Illness History of Present Illness: JJ HOFFMAN is a 37 year old female had been feeling poorly for the last 3-4 days. Yesterday she developed nausea and vomiting with diffuse abdominal pain and this persisted through today. Post emesis she felt no better. She reports regular bowel movements. She denies any productive cough or dysuria. She has history of chronic pancreatitis. This morning she checked her glucose and it was only 52. Recently her Lantus dose was decreased from 30 units daily to 16 units daily. When she is feeling good her blood glucose runs between 125-130. She also reports feeling cold all the time. Patient was recently admitted to [facility] and transferred to [facility] on November 10. She has had several emergency department visits prior to that as well. Of note, she is a poor historian. Hospital Course Hospital Course: The patient had an interesting hospital course. For the first 2 days it appeared that her glucose was stable and under fair control. All of a sudden her sugars shot up to 400. She denied dietary noncompliance. Adjustments were made in her insulin. The patient was on levofloxacin for severe cystitis versus pyelonephritis. Her urinalysis showed tremendous improvement over the first 3 days. She continued to complain of left-sided pain however her white blood cell count normalized. She does have chronic pain complaints that are consistent through all of her admissions. The remainder of her chronic illnesses were stable through this admission. Physical Exam Vital Signs: Temp Pulse Resp BP Pulse Ox 98.8 F 84 16 136/73 H 100 12/12/17 17:36 12/12/17 17:36 12/12/17 17:36 12/12/17 17:36 12/12/17 17:36 Intake & Output 12/11/17 12/12/17 12/13/17 06:59 06:59 06:59 Intake Total 1422 474 Balance 1422 474 Weight 65.5 kg General appearance: PRESENT: no acute distress, other - She is chronically ill- appearing. Neck exam: ABSENT: carotid bruit, JVD, lymphadenopathy Respiratory exam: PRESENT: clear to auscultation teddy, symmetrical, unlabored. ABSENT: rales, rhonchi, wheezes Cardiovascular exam: PRESENT: RRR, +S1, +S2 GI/Abdominal exam: PRESENT: normal bowel sounds, soft, tenderness - The patient reported tenderness along the left lower quadrant radiating into the groin. This has been a consistent complaint for her throughout her hospital stay. It has not improved despite significant improvement in her urinalysis as well as normalized white count and no fever. Neurological exam: PRESENT: alert, awake, oriented to person, oriented to place , oriented to situation Psychiatric exam: PRESENT: agitated - The patient became somewhat angry when I told her she was being discharged. She wanted pain medications and reported that the reason she keeps returning to the emergency department is for her pain. I suggested she establish with a chronic pain management clinic. Based on her multiple admissions and history of noncompliance I do not feel that the patient is particularly motivated with regard to her health care. Results Laboratory Results: 12/12/17 06:18 12/12/17 06:18 12/12/17 12/12/17 06:18 06:18 WBC 7.6 RBC 3.07 L Hgb 9.1 L Hct 26.7 L MCV 87 MCH 29.8 MCHC 34.2 RDW 14.6 H Plt Count 231 Seg Neutrophils % 57.6 Lymphocytes % 26.1 Monocytes % 13.8 H Eosinophils % 1.2 Basophils % 1.3 Absolute Neutrophils 4.4 Absolute Lymphocytes 2.0 Absolute Monocytes 1.1 Absolute Eosinophils 0.1 Absolute Basophils 0.1 Sodium 137.7 Potassium 4.4 Chloride 102 Carbon Dioxide 23 Anion Gap 13 BUN 33 H Creatinine 1.63 H Est GFR ( Amer) 43 L Est GFR (Non-Af Amer) 36 L Glucose 403 H* Calcium 8.7 Magnesium 1.8 Lipase 140.7 Impressions: Abdomen/Pelvis CT 12/09/17 11:56 IMPRESSION: Chronic pancreatitis. Qualifiers - * PATIENT BEING DISCHARGED WITH ANY OF THE FOLLOWING DIAGNOSIS: No Plan Time Spent: Greater than 30 Minutes
== END 2017-12-12 18:05 | disposition home or self-care (01) | DRG 440 ==
LOC: ER 11:46 → EH 15:20 → 4S 17:30
PROVIDERS: ADMIT Emergency Medicine; ATTEND Emergency Medicine
DX: K85.20 Alcohol induced acute pancreatitis without necrosis or infection (principal); K86.0 Alcohol-induced chronic pancreatitis; G89.29 Other chronic pain; N30.90 Cystitis, unspecified without hematuria; E11.649 Type 2 diabetes mellitus with hypoglycemia without coma; I12.9 Hypertensive chronic kidney disease with stage 1 through stage 4 chronic kidney disease, or unspecified chronic kidney disease; N18.3 Chronic kidney disease, stage 3 (moderate); E11.22 Type 2 diabetes mellitus with diabetic chronic kidney disease; G40.909 Epilepsy, unspecified, not intractable, without status epilepticus; E78.5 Hyperlipidemia, unspecified; F17.210 Nicotine dependence, cigarettes, uncomplicated; Z79.4 Long term (current) use of insulin; E11.65 Type 2 diabetes mellitus with hyperglycemia; Z91.14 Patient's other noncompliance with medication regimen; Z83.3 Family history of diabetes mellitus; Z82.49 Family history of ischemic heart disease and other diseases of the circulatory system; Z88.6 Allergy status to analgesic agent; Z88.5 Allergy status to narcotic agent
CPT/HCPCS: 36415; 74177; 80048; 80053; 80307; 81001; 82962; 83036; 83690; 83735; 83880; 84484; 85025; 87040; 93005; 93010; 96361; 96374; 99285; J0696; J1650; J1815; J3010; J3490; J7030

== ENCOUNTER 2017-12-13 05:53 | Emergency (ER) | payer MEDICAID ==
[2017-12-13] MEDS ORDERED: OXYCODONE-ACETAMINOPHEN 5-325 MG TABLET PO ONE (07:08)
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
[2017-12-13 07:46] LABS: APPEARANCE,URINE CLEAR; BILIRUBIN,URINE NEGATIVE (NEGATIVE); COLOR,URINE COLORLESS; GLUCOSE, URINE >=500 mg/dL (NEGATIVE); KETONES,URINE TRACE mg/dL (NEGATIVE); LEUKOCYTE ESTERASE,URINE NEGATIVE (NEGATIVE); NITRITE,URINE NEGATIVE (NEGATIVE); PROTEIN,URINE 100 mg/dL (NEGATIVE); URINE SPECIFIC GRAVITY 1.007; UROBILINOGEN,URINE NEGATIVE mg/dL (<2.0)
[2017-12-13 07:57] LABS: URINE AMPHETAMINES SCREEN NEGATIVE; URINE BARBITURATES SCREEN NEGATIVE; URINE BENZODIAZEPINES SCREEN NEGATIVE; URINE COCAINE SCREEN NEGATIVE; URINE MARIJUANA (THC) SCREEN NEGATIVE; URINE METHADONE SCREEN NEGATIVE; URINE PHENCYCLIDINE SCREEN NEGATIVE
[2017-12-13 09:04] LABS: ABSOLUTE LYMPHOCYTES (AUTO) 1.2 10^3/uL (0.5-4.7); ABSOLUTE MONOCYTES (AUTO) 0.6 10^3/uL (0.1-1.4); ABSOLUTE NEUT (AUTO) 8.7 10^3/uL (1.7-8.2); BASOPHILS % (AUTO) 0.4 % (0-2); EOSINOPHILS % (AUTO) 0.3 % (0-6); HEMATOCRIT 31.2 % (36.0-47.0); HEMOGLOBIN 10.7 g/dL (12.0-15.5); LYMPHOCYTES % (AUTO) 11.6 % (13-45); MEAN CORPUSCULAR HEMOGLOBIN 30.1 pg (27.0-33.4); MEAN CORPUSCULAR HGB CONC 34.4 g/dL (32.0-36.0); MEAN CORPUSCULAR VOLUME 88 fl (80-97); MONOCYTES % (AUTO) 5.8 % (3-13); PLATELET COUNT 313 10^3/uL (150-450); RED BLOOD COUNT 3.57 10^6/uL (3.72-5.28); RED CELL DISTRIBUTION WIDTH 14.5 % (11.5-14.0); SEGMENTED NEUTROPHILS % (AUTO) 81.9 % (42-78); TOTAL CELLS COUNTED % (AUTO) 100 %; WHITE BLOOD COUNT 10.7 10^3/uL (4.0-10.5)
[2017-12-13 09:15] LABS: ALANINE AMINOTRANSFERASE 23 U/L (9-52); ALBUMIN 3.9 g/dL (3.5-5.0); ALKALINE PHOSPHATASE 137 U/L (38-126); ANION GAP 15 (5-19); ASPARTATE AMINO TRANSFERASE 19 U/L (14-36); BILIRUBIN,DIRECT 0.3 mg/dL (0.0-0.4); BILIRUBIN,TOTAL 0.5 mg/dL (0.2-1.3); BLOOD UREA NITROGEN 32 mg/dL (7-20); CARBON DIOXIDE 23 mmol/L (22-30); CHLORIDE 104 mmol/L (98-107); GLUCOSE 374 mg/dL (75-110); LIPASE 146.3 U/L (23-300); POTASSIUM 4.8 mmol/L (3.6-5.0); SODIUM 141.7 mmol/L (137-145); TOTAL PROTEIN 7.3 g/dL (6.3-8.2)
[2017-12-13 09:16] LABS: ALCOHOL < 10 mg/dL (NONE DETECTED)
[2017-12-13 09:47] VITALS: BP 162/85
== END 2017-12-13 09:47 | disposition home or self-care (01) ==
LOC: ER 05:53
DX: K86.1 Other chronic pancreatitis (principal); E11.65 Type 2 diabetes mellitus with hyperglycemia; R10.9 Unspecified abdominal pain; G89.29 Other chronic pain; F17.210 Nicotine dependence, cigarettes, uncomplicated; I10 Essential (primary) hypertension
CPT/HCPCS: 36415; 80053; 80307; 81001; 83690; 83735; 85025; 99284

== ENCOUNTER 2018-01-03 06:42 | Inpatient (IN) | payer MEDICAID ==
--- NOTE | 2018-01-03 06:58 | ER Document Report ---
ED General - General Chief Complaint: Abdominal Pain Stated Complaint: ABDOMINAL PAIN,HIGH BLOOD SUGAR Time Seen by Provider: 01/03/18 06:55 Notes: Patient is a 37-year-old female with diabetes mellitus that presents to the emergency department for chief complaint of abdominal pain and elevated blood glucose. Patient reports that she has had abdominal discomfort, nausea over the last week and a half, but early this morning, she developed severe epigastric abdominal pain, she rates as a 10 out of 10, with associated nausea and vomiting. She had a history of pancreatitis in the past and this feels similar. She states she gave herself 30 units of Lantus last night, but when she checked her sugar this morning, read as high, and she decided to come to the emergency department to have this evaluated. She denies ending any recent fevers, chills, night sweats, chest pain, shortness of breath, difficulty breathing, cough or diarrhea. Past Medical History: Insulin-dependent diabetes mellitus, history of IV drug use, hypertension, hyperlipidemia Past Surgical History: Hysterectomy Social History: Admits to smoking cigarettes daily, denies alcohol, history of illicit drug use Family History: Reviewed and noncontributory for presenting illness Allergies: Reviewed, see documented allergy list. REVIEW OF SYSTEMS: Other than noted above, the 12 point review of systems was reviewed with the patient and were negative, all pertinent findings are included in the HPI. PHYSICAL EXAMINATION: Vital signs reviewed, nursing noted reviewed. GENERAL: Chronically ill-appearing female, and appears uncomfortable, tearful on exam HEAD: Atraumatic, normocephalic. EYES: Eyes appear normal, extraocular movements intact, sclera anicteric, conjunctiva are normal. ENT: nares patent, oropharynx clear without exudates. Dry mucous membranes. NECK: Normal range of motion, supple without lymphadenopathy LUNGS: Breath sounds clear to auscultation bilaterally and equal. No wheezes rales or rhonchi. HEART: Heart rate tachycardic, regular rhythm, no audible murmurs ABDOMEN: Soft, epigastric tenderness to palpation, normoactive bowel sounds. No rebound, guarding, or rigidity. No masses appreciated. EXTREMITIES: Nontender, good range of motion, no pitting or edema. NEUROLOGICAL: No focal neurological deficits. Moves all extremities spontaneously Motor and sensory grossly intact on exam. PSYCH: Tearful, answers questions appropriately. SKIN: Warm, Dry, poor skin turgor, no rashes or lesions noted on exposed skin TRAVEL OUTSIDE OF THE [place] IN LAST 30 DAYS: No - Related Data Allergies/Adverse Reactions: hydrocodone [From [place]] Allergy (Verified 01/03/18 07:15) morphine Allergy (Verified 01/03/18 07:15) Past Medical History - Social History Smoking Status: Current Every Day Smoker Family History: Reviewed & Not Pertinent, DM, Hypertension - Past Medical History Cardiac Medical History: Reports: Hx Hypercholesterolemia, Hx Hypertension Pulmonary Medical History: Denies: Hx COPD Neurological Medical History: Reports: Hx Seizures Endocrine Medical History: Reports: Hx Diabetes Mellitus Type 1, Hx Diabetes Mellitus Type 2 Renal/ Medical History: Denies: Hx End Stage Renal Disease, Hx Peritoneal Dialysis GI Medical History: Reports: Hx Cirrhosis, Hx Pancreatitis Musculoskeletal Medical History: Denies Hx Arthritis Skin Medical History: Denies Hx Eczema, Denies Hx Psoriasis Psychiatric Medical History: Denies: Hx Dementia, Hx Depression Past Surgical History: Reports: Hx Section - x3, Hx Hysterectomy Physical Exam - Vital signs Vitals: Temp Pulse Resp BP Pulse Ox 98.4 F 105 H 20 170/107 H 94 01/03/18 06:47 01/03/18 06:47 01/03/18 06:47 01/03/18 06:47 01/03/18 06:47 Course - Re-evaluation Re-evalutation: Patient seen and examined vital signs reviewed. Laboratory data and imaging were ordered as appropriate for the patient's presenting symptoms and complaint, with consideration of any critical or life threatening conditions that may be associated with their obtained history and exam as noted above. Patient was treated with IV fluids, Zofran, fentanyl Results were reviewed when available and demonstrated leukocytosis, she was also noted to have mild metabolic acidosis, and slightly elevated anion gap, with markedly elevated glucose levels of greater than 600, consistent with mild DKA, versus HHS, patient was alert and talking, and not in coma. Patient was given additional IV fluids, she was started on an insulin infusion, and Accu- Chek monitoring was continued, patient had additional emesis, therefore she was given additional Zofran, she is still having pain and given an additional dose of fentanyl as well. The patient was re-evaluated and was improving after second doses of medications , she was given 1/3 L of IV fluids. Evaluation was most consistent with DKA, leukocytosis, hyperglycemia, abdominal pain, possible acute on chronic pancreatitis. Results were discussed with the patient at this point after careful consideration I feel that that patient should be admitted to the hospital. This was discussed with the patient that it is in the best interest for their care to be admitted for further evaluation and management. Patient agreed with this plan of care. A call was placed to the admitted physician, Dr. Arroyo who graciously accepted the patient onto their service. *Note is created using voice recognition software and may contain spelling, syntax or grammatical errors. Laboratory 01/03/18 01/03/18 01/03/18 06:55 07:59 07:59 WBC 14.8 H RBC 3.75 Hgb 10.8 L Hct 33.8 L MCV 90 MCH 28.8 MCHC 32.0 RDW 14.7 H Plt Count 351 Seg Neutrophils % 84.1 H Lymphocytes % 11.4 L Monocytes % 3.2 Eosinophils % 0.7 Basophils % 0.6 Absolute Neutrophils 12.4 H Absolute Lymphocytes 1.7 Absolute Monocytes 0.5 Absolute Eosinophils 0.1 Absolute Basophils 0.1 VBG pH VBG pCO2 VBG HCO3 VBG Base Excess Sodium 135.5 L Potassium 4.9 Chloride 97 L Carbon Dioxide 21 L Anion Gap 18 BUN 34 H Creatinine 1.69 H Est GFR ( Amer) 41 L Est GFR (Non-Af Amer) 34 L Glucose 672 H* POC Glucose > 550 H* Calcium 10.1 Total Bilirubin 0.7 Direct Bilirubin 0.4 Neonat Total Bilirubin Not Reportable Neonat Direct Bilirubin Not Reportable Neonat Indirect Bili Not Reportable AST 22 ALT 30 Alkaline Phosphatase 181 H Total Protein 7.7 Albumin 4.4 Lipase 382.2 H Beta HCG, Quant < 2.39 Total Beta HCG NEGATIVE Urine Color Urine Appearance Urine pH Ur Specific [place] Urine Protein Urine Glucose (UA) Urine Ketones Urine Blood Urine Nitrite Urine Bilirubin Urine Urobilinogen Ur Leukocyte Esterase Urine WBC (Auto) Squamous Epi Cells Auto Urine Ascorbic Acid 01/03/18 01/03/18 01/03/18 07:59 08:50 09:34 WBC RBC Hgb Hct MCV MCH MCHC RDW Plt Count Seg Neutrophils % Lymphocytes % Monocytes % Eosinophils % Basophils % Absolute Neutrophils Absolute Lymphocytes Absolute Monocytes Absolute Eosinophils Absolute Basophils VBG pH 7.24 L VBG pCO2 51.8 VBG HCO3 21.5 VBG Base Excess -6.2 Sodium Potassium Chloride Carbon Dioxide Anion Gap BUN Creatinine Est GFR ( Amer) Est GFR (Non-Af Amer) Glucose POC Glucose > 550 H* Calcium Total Bilirubin Direct Bilirubin Neonat Total Bilirubin Neonat Direct Bilirubin Neonat Indirect Bili AST ALT Alkaline Phosphatase Total Protein Albumin Lipase Beta HCG, Quant Total Beta HCG Urine Color COLORLESS Urine Appearance CLEAR Urine pH 5.0 Ur Specific [place] 1.015 Urine Protein 100 H Urine Glucose (UA) >=500 H Urine Ketones 20 H Urine Blood SMALL H Urine Nitrite NEGATIVE Urine Bilirubin NEGATIVE Urine Urobilinogen NEGATIVE Ur Leukocyte Esterase NEGATIVE Urine WBC (Auto) 1 Squamous Epi Cells Auto 1 Urine Ascorbic Acid NEGATIVE 01/03/18 10:39 WBC RBC Hgb Hct MCV MCH MCHC RDW Plt Count Seg Neutrophils % Lymphocytes % Monocytes % Eosinophils % Basophils % Absolute Neutrophils Absolute Lymphocytes Absolute Monocytes Absolute Eosinophils Absolute Basophils VBG pH VBG pCO2 VBG HCO3 VBG Base Excess Sodium Potassium Chloride Carbon Dioxide Anion Gap BUN Creatinine Est GFR ( Amer) Est GFR (Non-Af Amer) Glucose POC Glucose > 550 H* Calcium Total Bilirubin Direct Bilirubin Neonat Total Bilirubin Neonat Direct Bilirubin Neonat Indirect Bili AST ALT Alkaline Phosphatase Total Protein Albumin Lipase Beta HCG, Quant Total Beta HCG Urine Color Urine Appearance Urine pH Ur Specific [place] Urine Protein Urine Glucose (UA) Urine Ketones Urine Blood Urine Nitrite Urine Bilirubin Urine Urobilinogen Ur Leukocyte Esterase Urine WBC (Auto) Squamous Epi Cells Auto Urine Ascorbic Acid - Vital Signs Vital signs: Temp Pulse Resp BP Pulse Ox 98.4 F 105 H 15 214/116 H 99 01/03/18 06:47 01/03/18 06:47 01/03/18 09:02 01/03/18 09:02 01/03/18 09:02 - Laboratory Result Diagrams: 01/03/18 07:59 01/03/18 07:59 Laboratory results interpreted by me: 01/03/18 01/03/18 01/03/18 06:55 07:59 07:59 WBC 14.8 H Hgb 10.8 L Hct 33.8 L RDW 14.7 H Seg Neutrophils % 84.1 H Lymphocytes % 11.4 L Absolute Neutrophils 12.4 H VBG pH Sodium 135.5 L Chloride 97 L Carbon Dioxide 21 L BUN 34 H Creatinine 1.69 H Est GFR ( Amer) 41 L Est GFR (Non-Af Amer) 34 L Glucose 672 H* POC Glucose > 550 H* Alkaline Phosphatase 181 H Lipase 382.2 H Urine Protein Urine Glucose (UA) Urine Ketones Urine Blood 01/03/18 01/03/18 07:59 08:50 WBC Hgb Hct RDW Seg Neutrophils % Lymphocytes % Absolute Neutrophils VBG pH 7.24 L Sodium Chloride Carbon Dioxide BUN Creatinine Est GFR ( Amer) Est GFR (Non-Af Amer) Glucose POC Glucose Alkaline Phosphatase Lipase Urine Protein 100 H Urine Glucose (UA) >=500 H Urine Ketones 20 H Urine Blood SMALL H - EKG Interpretation by Me Additional EKG results interpreted by me: EKG demonstrates sinus tachycardia with a ventricular rate of 100 bpm, normal axis, QTC 491 ms, no evidence of acute ischemia on this EKG, this compared with prior EKG from 12/09/2017, without significant change. Procedures - Additional Procedures IV insertion Additional Procedures: IV insertion Notes: Patient's arm was cleaned with alcohol and ChloraPrep, and using ultrasound guidance, a 20-gauge IV catheter was placed in the patient's right upper arm, good flash, good blood return and flush, patient tolerated procedure well. Critical Care Note - Critical Care Note Total time excluding time spent on procedures (mins): 55 Comments: Critical care time 55 minutes exclusive from separate billable procedures for a patient requiring complex medical decision making, and high potential for clinical deterioration. In a patient with DKA, requiring fluid resuscitation, IV insulin infusion, and frequent monitoring and reevaluation.. Time spent obtaining history from patient or surrogate, discussions with consultants, development of treatment plan with patient or surrogate, evaluation of patient' s response to treatment, examination of patient, ordering and performing treatments and interventions, ordering and review of laboratory studies, re- evaluation of patient's condition, ordering and review of radiographic studies and review of old charts Discharge - Discharge Clinical Impression: RONIT (acute kidney injury), Epigastric abdominal pain, Acute on chronic pancreatitis Diabetic ketoacidosis associated with type 2 diabetes mellitus Qualifiers: Diabetes mellitus complication detail: without coma Qualified Code(s): E11.10 - Type 2 diabetes mellitus with ketoacidosis without coma Condition: Stable Disposition: ADMITTED INPATIENT Admitting Provider: Hospitalist - Dr. Arroyo Unit Admitted: ICU
[2018-01-03] MEDS ORDERED: NORMAL SALINE 1000 ML 1,000 ML IV ONE ×3 (07:00→10:40)
[2018-01-03] MEDS ORDERED: ONDANSETRON HCL INJ/PF 4 MG/2 ML SDV IV ONE ×2 (07:02→10:32)
[2018-01-03] MEDS ORDERED: FENTANYL CITRATE INJ/PF 100 MCG/2 ML AMPUL IV ONE ×2 (07:43→09:58)
--- NOTE | 2018-01-03 08:00 | EKG REPORT ---
SEVERITY:- ABNORMAL ECG - SINUS TACHYCARDIA CONSIDER LEFT VENTRICULAR HYPERTROPHY BORDERLINE PROLONGED QT INTERVAL : Confirmed by: Alvaro Lema MD 03-Jan-2018 07:59:41
[2018-01-03 08:15] LABS: ABSOLUTE BASOPHILS # (AUTO) 0.1 10^3/uL (0.0-0.2); ABSOLUTE EOSINOPHILS # (AUTO) 0.1 10^3/uL (0.0-0.6); ABSOLUTE LYMPHOCYTES (AUTO) 1.7 10^3/uL (0.5-4.7); ABSOLUTE MONOCYTES (AUTO) 0.5 10^3/uL (0.1-1.4); ABSOLUTE NEUT (AUTO) 12.4 10^3/uL (1.7-8.2); BASOPHILS % (AUTO) 0.6 % (0-2); EOSINOPHILS % (AUTO) 0.7 % (0-6); HEMATOCRIT 33.8 % (36.0-47.0); HEMOGLOBIN 10.8 g/dL (12.0-15.5); LYMPHOCYTES % (AUTO) 11.4 % (13-45); MEAN CORPUSCULAR HEMOGLOBIN 28.8 pg (27.0-33.4); MEAN CORPUSCULAR VOLUME 90 fl (80-97); MONOCYTES % (AUTO) 3.2 % (3-13); PLATELET COUNT 351 10^3/uL (150-450); RED BLOOD COUNT 3.75 10^6/uL (3.72-5.28); RED CELL DISTRIBUTION WIDTH 14.7 % (11.5-14.0); SEGMENTED NEUTROPHILS % (AUTO) 84.1 % (42-78); TOTAL CELLS COUNTED % (AUTO) 100 %; WHITE BLOOD COUNT 14.8 10^3/uL (4.0-10.5)
[2018-01-03 08:19] LABS: VENOUS BLOOD BASE EXCESS -6.2 mmol/L; VENOUS BLOOD HCO3 21.5 mmol/L (20-32); VENOUS BLOOD PCO2 51.8 mmHg (35-63); VENOUS BLOOD PH 7.24 (7.30-7.42)
[2018-01-03 08:39] LABS: ALANINE AMINOTRANSFERASE 30 U/L (9-52); ALBUMIN 4.4 g/dL (3.5-5.0); ALKALINE PHOSPHATASE 181 U/L (38-126); ANION GAP 18 (5-19); ASPARTATE AMINO TRANSFERASE 22 U/L (14-36); BILIRUBIN,DIRECT 0.4 mg/dL (0.0-0.4); BILIRUBIN,TOTAL 0.7 mg/dL (0.2-1.3); BLOOD UREA NITROGEN 34 mg/dL (7-20); CALCIUM 10.1 mg/dL (8.4-10.2); CARBON DIOXIDE 21 mmol/L (22-30); CHLORIDE 97 mmol/L (98-107); LIPASE 382.2 U/L (23-300); POTASSIUM 4.9 mmol/L (3.6-5.0); SODIUM 135.5 mmol/L (137-145); TOTAL PROTEIN 7.7 g/dL (6.3-8.2)
[2018-01-03 08:53] LABS: GLUCOSE 672 mg/dL (75-110)
[2018-01-03] MEDS ORDERED: GLUCAGON,HUMAN RECOMB 1 MG INJ IM PRN ×2 (09:04→10:27)
[2018-01-03] MEDS ORDERED: DEXTROSE 50%-WATER 25 GM/50 ML DISP.SYRIN IV PRN ×6 (09:04→10:27)
[2018-01-03] MEDS ORDERED: DEXTROSE 40% GEL 15 GM TUBE PO PRN ×5 (09:04→10:27)
[2018-01-03] MEDS ORDERED: NORMAL SALINE 100 ML with INSULIN REGULAR, HUMAN 100 UNIT IV PRN ×2 (09:04)
[2018-01-03 09:12] LABS: APPEARANCE,URINE CLEAR; BILIRUBIN,URINE NEGATIVE (NEGATIVE); COLOR,URINE COLORLESS; GLUCOSE, URINE >=500 mg/dL (NEGATIVE); KETONES,URINE 20 mg/dL (NEGATIVE); LEUKOCYTE ESTERASE,URINE NEGATIVE (NEGATIVE); NITRITE,URINE NEGATIVE (NEGATIVE); PROTEIN,URINE 100 mg/dL (NEGATIVE); URINE SPECIFIC GRAVITY 1.015; UROBILINOGEN,URINE NEGATIVE mg/dL (<2.0)
[2018-01-03] MEDS ORDERED: GLUCAGON,HUMAN RECOMB 1 MG INJ SUBCUT PRN (10:27)
[2018-01-03] MEDS ORDERED: INSULIN REG, HUMAN 100 UNIT/ML 3 ML VIAL (PYX) ONE (10:30)
--- NOTE | 2018-01-03 10:55 | PDOC H&P ---
History of Present Illness Admission Date/PCP: 01/03/18 09:25 RONALD BARKER, LYNNE History of Present Illness: JJ HOFFMAN is a 37 year old female who is an insulin-dependent diabetic who says she thinks some of her insulin went bad. She says she has been taking her insulin as she was directed, but for the past couple of days she started feeling worse, having some nausea along with some abdominal pain. She came in to the ER and had a battery of tests run, and while she does not appear to be in full-blown diabetic ketoacidosis, she does have a constellation of symptoms consistent with a nonketotic hyperglycemic state. Past Medical History Cardiac Medical History: Reports: Hyperlipidema, Hypertension Pulmonary Medical History: Denies: Chronic Obstructive Pulmonary Disease (COPD) Neurological Medical History: Reports: Seizures Endocrine Medical History: Reports: Diabetes Mellitus Type 1, Diabetes Mellitus Type 2 Renal/ Medical History: Denies: End Stage Renal Disease GI Medical History: Reports: Cirrhosis Musculoskeltal Medical History: Denies: Arthritis Skin Medical History: Denies: Eczema, Psoriasis Psychiatric Medical History: Denies: Dementia, Depression Hematology: Reports: Anemia Past Surgical History Past Surgical History: Reports: Section - x3, Hysterectomy Social History Smoking Status: Smoker,Current Status Unk Frequency of Alcohol Use: None Hx Recreational Drug Use: Yes Drugs: Marijuana Hx Prescription Drug Abuse: No Family History Family History: Reviewed & Not Pertinent, DM, Hypertension Parental Family History Reviewed: No - Noncontributory Children Family History Reviewed: No - Noncontributory Sibling(s) Family History Reviewed.: No - Noncontributory Medication/Allergy Allergies/Adverse Reactions: hydrocodone [From [place]] Allergy (Verified 01/03/18 07:15) morphine Allergy (Verified 01/03/18 07:15) Review of Systems All systems: reviewed and no additional remarkable complaints except as stated - 10 point review of systems was conducted with the patient was negative except as noted above Physical Exam Vital Signs: Temp Pulse Resp BP Pulse Ox 98.4 F 105 H 15 214/116 H 99 01/03/18 06:47 01/03/18 06:47 01/03/18 09:02 01/03/18 09:02 01/03/18 09:02 General appearance: PRESENT: cooperative, disheveled, well-nourished, other - She was crying and wailing quite a bit but when she started talking about her history she did not seem to be crying as badly and was able to talk just fine Head exam: PRESENT: atraumatic, normocephalic Eye exam: PRESENT: EOMI, PERRLA. ABSENT: conjunctival injection, nystagmus, scleral icterus Ear exam: PRESENT: normal external ear exam Mouth exam: PRESENT: dry mucosa, neck supple Throat exam: ABSENT: post pharyngeal erythema Neck exam: PRESENT: full ROM. ABSENT: carotid bruit, JVD, lymphadenopathy, meningismus, tenderness, thyromegaly Respiratory exam: PRESENT: clear to auscultation teddy, symmetrical, unlabored. ABSENT: accessory muscle use, chest wall tenderness, rales, rhonchi, tachypnea, wheezes Cardiovascular exam: PRESENT: +S1, +S2, tachycardia. ABSENT: diastolic murmur, systolic murmur Pulses: PRESENT: normal carotid pulses, normal radial pulses Vascular exam: PRESENT: normal capillary refill GI/Abdominal exam: PRESENT: normal bowel sounds, soft. ABSENT: guarding, rebound, tenderness Extremities exam: ABSENT: clubbing, pedal edema Musculoskeletal exam: PRESENT: normal inspection. ABSENT: deformity Neurological exam: PRESENT: alert, awake, oriented to person, oriented to place , oriented to time, CN II-XII grossly intact. ABSENT: motor sensory deficit Psychiatric exam: PRESENT: agitated, anxious Skin exam: PRESENT: dry, warm Assessment & Plan - Diagnosis (1) Uncontrolled type 2 DM with hyperosmolar nonketotic hyperglycemia Is this a current diagnosis for this admission?: Yes Plan: Her electrolytes appear to be okay at this point. She needs IV fluids with an insulin drip and this is being set up. We will keep a close eye on her electrolytes and kidney function. Once we get her blood sugars down we will transition her back to her usual insulin regimen off her IV fluids and see how she does when she eats a controlled diet. - Time Time Spent: 50 to 70 Minutes - Inpatient Certification Based on my medical assessment, after consideration of the patient's comorbidities, presenting symptoms, or acuity I expect that the services needed warrant INPATIENT care.: Yes I certify that my determination is in accordance with my understanding of Medicare's requirements for reasonable and necessary INPATIENT services [42 CFR 412.3e].: Yes Medical Necessity: Need Close Monitoring Due to Risk of Patient Decompensation, Need For IV Fluids, Need For Continuous Telemetry Monitoring, Risk of Complication if Not Cared For in Hospital
[2018-01-03] MEDS ORDERED: KETOROLAC TROMETHAMINE INJ/PF 30 MG/1 ML SDV IV ONE (12:15)
[2018-01-03] MEDS: METOCLOPRAMIDE HCL INJ/PF 10 MG/2 ML SDV IV SCH ×2 (14:03→21:20)
[2018-01-03] MEDS: ENOXAPARIN SODIUM INJ 40 MG/0.4 ML DISP.SYRIN SUBCUT SCH (14:03)
[2018-01-03] MEDS: POTASSI CL 20 MEQ/1/2NS 1L 20 MEQ/1,000 ML RTUINJ IV PRN (14:08)
--- NOTE | 2018-01-03 15:59 | RADIOLOGY REPORT (SQ) ---
EXAM DESCRIPTION: CT ABD/PELVIS NO ORAL OR IV COMPLETED DATE/TIME: 01/03/2018 3:28 pm REASON FOR STUDY: abdominal pain COMPARISON: 10/30/2017 TECHNIQUE: CT scan of the abdomen and pelvis performed without intravenous or oral contrast. Images reviewed with lung, soft tissue, and bone windows. Reconstructed coronal and sagittal MPR images revi ewed. All images stored on PACS. All CT scanners at this facility use dose modulation, iterative reconstruction, and/or weight based d osing when appropriate to reduce radiation dose to as low as reasonably achievable (ALARA). [facility]: Dose Right [facility]: CareDose [facility]: Dose Right [facility]: Teradose 4D [facility]: Smart IPextreme RADIATION DOSE: CT Rad equipment meets quality standard of care and radiation dose reduction techniq ues were employed. CTDIvol: 5.1 mGy. DLP: 275 mGy-cm.mGy. LIMITATIONS: Lack of contrast and paucity of intra-abdominal fat. FINDINGS: LOWER CHEST: No significant findings. No nodules or infiltrates. NON-CONTRASTED LIVER, SPLEEN, ADRENALS: Evaluation limited by lack of IV contrast. No identified sign ificant masses. PANCREAS: There are calcifications in the head of the pancreas suggesting prior pancreatitis. GALLBLADDER: Contracted. No stones are seen. RIGHT KIDNEY AND URETER: No suspicious masses. Assessment limited by lack of IV contrast. No signif icant calcifications. No hydronephrosis or hydroureter. LEFT KIDNEY AND URETER: No suspicious masses. Assessment limited by lack of IV contrast. No signifi cant calcifications. No hydronephrosis or hydroureter. AORTA AND RETROPERITONEUM: No aneurysm. No retroperitoneal masses or adenopathy. BOWEL AND PERITONEAL CAVITY: No obvious masses or inflammatory changes. No free fluid. APPENDIX: Normal. PELVIS, BLADDER, AND ABDOMINAL WALL:No abnormal masses. No free fluid. Bladder normal. BONES: No significant findings. OTHER: No other significant finding. IMPRESSION: No acute findings in the abdomen or pelvis. There are calcifications in the head of the pancreas suggesting prior pancreatitis. Study is slightly limited as described. COMMENT: Quality ID # [id number]: Final reports with documentation of one or more dose reduction techniques (e.g., Automated exposure control, adjustment of the mA and/or kV according to patient size, use of iterative reconstruction technique) TECHNICAL DOCUMENTATION: JOB ID: [id number]- All Rights Reserved Reading location - IP/workstation name: [email or web address]
[2018-01-03 16:22] LABS: ANION GAP 17 (5-19); BLOOD UREA NITROGEN 31 mg/dL (7-20); CALCIUM 10.2 mg/dL (8.4-10.2); CARBON DIOXIDE 22 mmol/L (22-30); CHLORIDE 107 mmol/L (98-107); GLUCOSE 291 mg/dL (75-110); POTASSIUM 4.1 mmol/L (3.6-5.0); SODIUM 145.8 mmol/L (137-145)
[2018-01-03] MEDS ORDERED: LEVETIRACETAM 1000 MG/NACL-ISO 1,000 MG/100 ML RTUPB IV ONE (16:38)
--- NOTE | 2018-01-03 16:42 | Progress Note ---
Provider Note Provider Note: After the patient finally was able to get to the floor from the ER, she had some activity that was thought perhaps to be seizure-like. By reports while she was in the middle of this episode, her eyes were open and she was grimacing and making sounds. She did not have any bowel or bladder incontinence. When she came out of it she was crying and saying that she was in abdominal pain, and did not seem to have any sort of postictal syndrome. We ordered a CT scan of her belly earlier that did not show any radiographic evidence for acute abdominal pain. He did note that she had had evidence of a prior pancreatitis but nothing indicating an acute pancreatitis. It should be noted her lipase was minimally elevated. She has had no nausea or vomiting. Ordered some Keppra and have ordered a CT scan of the brain. If she continues to have further episodes that she may need an EEG.
[2018-01-03] MEDS: ONDANSETRON HCL INJ/PF 4 MG/2 ML SDV IV PRN ×2 (16:43→21:20)
[2018-01-03] MEDS: DICYCLOMINE HCL 20 MG TABLET PO PRN (16:43)
[2018-01-03] MEDS ORDERED: DICYCLOMINE HCL INJ 20 MG/2 ML AMPULE IM PRN (17:41)
[2018-01-03 17:56] LABS: HEMATOCRIT 32.1 % (36.0-47.0); HEMOGLOBIN 10.5 g/dL (12.0-15.5); MEAN CORPUSCULAR HEMOGLOBIN 28.3 pg (27.0-33.4); MEAN CORPUSCULAR HGB CONC 32.7 g/dL (32.0-36.0); MEAN CORPUSCULAR VOLUME 87 fl (80-97); PLATELET COUNT 352 10^3/uL (150-450); RED CELL DISTRIBUTION WIDTH 14.2 % (11.5-14.0); WHITE BLOOD COUNT 15.8 10^3/uL (4.0-10.5)
[2018-01-03] MEDS: PANTOPRAZOLE SODIUM 40 MG VIAL IV SCH ×2 (17:57→21:36)
[2018-01-03 18:07] LABS: ANION GAP 19 (5-19); BLOOD UREA NITROGEN 30 mg/dL (7-20); CALCIUM 9.8 mg/dL (8.4-10.2); CARBON DIOXIDE 20 mmol/L (22-30); CHLORIDE 107 mmol/L (98-107); GLUCOSE 332 mg/dL (75-110); POTASSIUM 3.8 mmol/L (3.6-5.0); SODIUM 145.5 mmol/L (137-145)
[2018-01-03] MEDS: HYDRALAZINE HCL INJ/PF 20 MG/1 ML SDV IV PRN (19:26)
[2018-01-03] MEDS ORDERED: LORAZEPAM INJ 2 MG/1 ML VIAL IV PRN (21:00)
[2018-01-03] MEDS ORDERED: LORAZEPAM INJ 2 MG/1 ML VIAL ONE (21:01)
[2018-01-03 22:18] LABS: ANION GAP 15 (5-19); BLOOD UREA NITROGEN 32 mg/dL (7-20); CALCIUM 9.6 mg/dL (8.4-10.2); CARBON DIOXIDE 23 mmol/L (22-30); CHLORIDE 108 mmol/L (98-107); GLUCOSE 266 mg/dL (75-110); POTASSIUM 4.1 mmol/L (3.6-5.0); SODIUM 145.6 mmol/L (137-145)
--- NOTE | 2018-01-03 23:31 | RADIOLOGY REPORT (SQ) ---
PROCEDURE: CT OF THE HEAD WITHOUT INTRAVENOUS CONTRAST HISTORY: possible seizure Indication: Same as above Comparison: 10/08/2017 Technique: CT of the head was done without intravenous contrast was done in the orthogonal planes. This exam was performed according to our departmental dose-optimization program, which includes automated exposure control, adjustment of the mA and/or KV according to the patient's size and/or use of iterative reconstruction technique. FINDINGS: There is no intracranial hemorrhage, midline shift mass effect or acute focal infarct. If clinical concern exists regarding an acute ischemic/vascular pathology being responsible for patient's symptomatology, an MRI of the brain is more sensitive than the current study, in ruling out such a possibility. There is good estrada/white matter differentiation. The ventricular system is normal. The mastoid air cells are unremarkable . The paranasal sinuses are unremarkable . There is no visualization of acute fractures involving the calvarium or the skull base. IMPRESSION: There is no acute intracranial abnormality.
[2018-01-04] MEDS: METOCLOPRAMIDE HCL INJ/PF 10 MG/2 ML SDV IV SCH ×5 (00:55→23:00)
[2018-01-04] MEDS: INSULIN REG, HUMAN 100 UNIT/ML 3 ML VIAL (PYX) SUBCUT PRN ×2 (01:12→15:37)
[2018-01-04 03:05] LABS: ANION GAP 12 (5-19); BLOOD UREA NITROGEN 34 mg/dL (7-20); CALCIUM 9.4 mg/dL (8.4-10.2); CARBON DIOXIDE 24 mmol/L (22-30); CHLORIDE 110 mmol/L (98-107); GLUCOSE 225 mg/dL (75-110); SODIUM 146.3 mmol/L (137-145)
[2018-01-04 07:31] LABS: ANION GAP 11 (5-19); BLOOD UREA NITROGEN 34 mg/dL (7-20); CALCIUM 9.9 mg/dL (8.4-10.2); CARBON DIOXIDE 25 mmol/L (22-30); CHLORIDE 111 mmol/L (98-107); GLUCOSE 99 mg/dL (75-110); POTASSIUM 4.1 mmol/L (3.6-5.0); SODIUM 146.5 mmol/L (137-145)
[2018-01-04] MEDS: PANTOPRAZOLE SODIUM 40 MG VIAL IV SCH ×2 (09:54→21:51)
[2018-01-04] MEDS: HYDRALAZINE HCL INJ/PF 20 MG/1 ML SDV IV PRN ×2 (09:55→15:37)
[2018-01-04] MEDS ORDERED: (PENDING PHARMACY ID) (Lisinopril [Zestril] 40 MG) PO SCH (10:00)
[2018-01-04] MEDS: ONDANSETRON HCL INJ/PF 4 MG/2 ML SDV IV PRN ×2 (10:50→20:52)
[2018-01-04] MEDS: POTASSI CL 20 MEQ/1/2NS 1L 20 MEQ/1,000 ML RTUINJ IV PRN ×2 (12:29→20:52)
[2018-01-04 12:47] LABS: ALBUMIN 3.6 g/dL (3.5-5.0); LIPASE 144.3 U/L (23-300)
[2018-01-04] MEDS: LISINOPRIL 10 MG TABLET PO SCH (13:03)
[2018-01-04] MEDS: ENOXAPARIN SODIUM INJ 40 MG/0.4 ML DISP.SYRIN SUBCUT SCH (13:03)
[2018-01-04] MEDS: AMLODIPINE BESYLATE 5 MG TABLET PO SCH ×2 (13:03→21:51)
[2018-01-04] MEDS: METOPROLOL SUCCINATE 50 MG TAB.SR.24H PO SCH ×2 (13:04→21:51)
[2018-01-04] MEDS: INSULIN GLARGINE,HUM.REC.ANLOG 300 UNIT/3 ML INSULN.PEN SUBCUT SCH (13:12)
[2018-01-04] MEDS: DIVALPROEX SODIUM 125 MG CAP.SPRINK PO SCH ×2 (14:36→21:52)
--- NOTE | 2018-01-04 16:40 | RADIOLOGY REPORT (SQ) ---
EXAM DESCRIPTION: MRI ABDOMEN WITHOUT COMPLETED DATE/TIME: 01/04/2018 2:40 pm REASON FOR STUDY: Abd pain, chronic pancreatitis COMPARISON: CT abdomen and pelvis 07/11/2017, 08/17/2017, 08/22/2017, 12/09/2017, 01/03/2018 TECHNIQUE: Noncontrast MRCP. Source images reviewed. Maximum intensity projected images were not a ble to be generated because of limited patient cooperation. LIMITATIONS: Very limited patient cooperation FINDINGS: GALLBLADDER: Normal. INTRAHEPATIC DUCTS: Nondilated. EXTRAHEPATIC DUCTS: Common duct is normal caliber. No dilatation of the pancreatic duct. No ductal filling defects noted. PANCREAS: Generally homogeneous, no gross mass or significant signal alteration. No surrounding infl ammatory changes or fluid. Pancreatic duct is normal. Calcifications at the pancreatic head from chr onic pancreatitis are not evident by MR LIVER, SPLEEN, KIDNEYS, ADRENALS: No significant abnormality. VESSELS: No evidence of aneurysm. Grossly appropriate flow voids in the major vascular structures. LUNG BASES: Grossly clear. OTHER: No other significant finding. IMPRESSION: NORMAL HEPATOBILIARY SYSTEM. NO STONES OR COMMON DUCT ABNORMALITIES. TECHNICAL DOCUMENTATION: JOB ID: [id number] [employer]- All Rights Reserved Reading location - IP/workstation name: [email or web address]
--- NOTE | 2018-01-04 17:32 | PDOC PROGRESS REPORT ---
Subjective Progress Note for:: 01/04/18 Subjective:: The patient is stating that she feels better today as compared to when she was admitted. The patient stated that her stomach is sore, but she has not had any nausea, vomiting or diarrhea. The patient denies any fever, chills, shortness of breath or head aches. The patient states that she is hungry and would like something to eat. Reason For Visit: HYPEROSMOLAR NONKETOTIC HYPERGLYCEMIA Physical Exam Vital Signs: Temp Pulse Resp BP Pulse Ox 98.9 F 115 H 21 H 202/109 H 97 01/04/18 15:00 01/04/18 15:00 01/04/18 15:00 01/04/18 15:00 01/04/18 15:00 Intake & Output 01/02/18 01/03/18 01/04/18 23:59 23:59 23:59 Intake Total 1000 1065 Output Total 0 700 Balance 1000 365 Weight 60.6 kg 62.8 kg General appearance: PRESENT: no acute distress, cooperative - Is cooperative, but does not maintain eye contact and has a soft, almost whispered, speach. Head exam: PRESENT: atraumatic, normocephalic Eye exam: PRESENT: conjunctiva pink, EOMI, PERRLA, scleral icterus Ear exam: PRESENT: normal external ear exam Mouth exam: PRESENT: moist, tongue midline Teeth exam: PRESENT: poor dentation Neck exam: PRESENT: full ROM Respiratory exam: PRESENT: clear to auscultation teddy, unlabored Cardiovascular exam: PRESENT: +S1, +S2, tachycardia Pulses: PRESENT: normal radial pulses, +2 pedal pulses bilateral Vascular exam: PRESENT: normal capillary refill GI/Abdominal exam: PRESENT: soft, other - No pain with deep or light palapation. Rectal exam: PRESENT: deferred Extremities exam: PRESENT: full ROM. ABSENT: calf tenderness, clubbing, pedal edema Musculoskeletal exam: PRESENT: other - Generalized weakness, no joint pain or swelling noted. Neurological exam: PRESENT: alert, oriented to person, oriented to place, oriented to time, oriented to situation Psychiatric exam: PRESENT: depressed - and withdrawn, unusual affect Skin exam: PRESENT: dry, normal color, warm Results Laboratory Results: 01/03/18 17:44 01/04/18 06:48 01/03/18 01/03/18 01/03/18 17:44 17:44 17:44 WBC 15.8 H RBC 3.70 L Hgb 10.5 L Hct 32.1 L MCV 87 MCH 28.3 MCHC 32.7 RDW 14.2 H Plt Count 352 Sodium 145.5 H Potassium 3.8 Chloride 107 Carbon Dioxide 20 L Anion Gap 19 BUN 30 H Creatinine 1.50 H Est GFR ( Amer) 47 L Est GFR (Non-Af Amer) 39 L Glucose 332 H Calcium 9.8 Albumin Lipase Stool Occult Blood Blood Type O POSITIVE Antibody Screen NEGATIVE 01/03/18 01/03/18 01/04/18 21:50 21:55 02:27 WBC RBC Hgb Hct MCV MCH MCHC RDW Plt Count Sodium 145.6 H 146.3 H Potassium 4.1 4.0 Chloride 108 H 110 H Carbon Dioxide 23 24 Anion Gap 15 12 BUN 32 H 34 H Creatinine 1.55 H 2.19 H Est GFR ( Amer) 46 L 31 L Est GFR (Non-Af Amer) 38 L 25 L Glucose 266 H 225 H Calcium 9.6 9.4 Albumin Lipase Stool Occult Blood POSITIVE Blood Type Antibody Screen 01/04/18 01/04/18 06:48 06:48 WBC RBC Hgb Hct MCV MCH MCHC RDW Plt Count Sodium 146.5 H Potassium 4.1 Chloride 111 H Carbon Dioxide 25 Anion Gap 11 BUN 34 H Creatinine 2.08 H Est GFR ( Amer) 32 L Est GFR (Non-Af Amer) 27 L Glucose 99 Calcium 9.9 Albumin 3.6 Lipase 144.3 Stool Occult Blood Blood Type Antibody Screen Impressions: Abdomen/Pelvis CT 01/03/18 00:00 IMPRESSION: No acute findings in the abdomen or pelvis. There are calcifications in the head of the pancreas suggesting prior pancreatitis. Study is slightly limited as described. Head CT 01/03/18 00:00 IMPRESSION: There is no acute intracranial abnormality. Assessment & Plan - Diagnosis (1) Uncontrolled type 2 DM with hyperosmolar nonketotic hyperglycemia Is this a current diagnosis for this admission?: Yes Plan: FSBS ACHS with sliding scale coverage. Patient also receiving 30 units subcutaneous Lantus. Blood surgars have been labile. (2) RONIT (acute kidney injury) Is this a current diagnosis for this admission?: Yes Plan: Patient has Continue IV fluids. Monitor I/Os. Will monitor labs. Baseline cr 1.5 (3) Leukocytosis, unspecified Is this a current diagnosis for this admission?: Yes Plan: Mostly secondary to HHS. Will continue to hydrate and monitor labs. (4) Acute on chronic pancreatitis Is this a current diagnosis for this admission?: Yes Plan: Lipase is 144.3. MRCP of abdomen completed today. Will continue to monitor. (5) Abdominal pain Qualifiers: Abdominal location: epigastric Qualified Code(s): R10.13 - Epigastric pain Is this a current diagnosis for this admission?: Yes Plan: MRI of abdomen completed to rule out any acute issues. Will continue to monitor. (6) Hypertension Qualifiers: Hypertension type: essential hypertension Qualified Code(s): I10 - Essential (primary) hypertension Is this a current diagnosis for this admission?: Yes Plan: Patient is on Norvasc, metoprolol and lisinopril. May have PRN hydraliazine. Continue to monitor. (7) Seizure disorder Is this a current diagnosis for this admission?: Yes Plan: Continue home depakote. Seizure precautions. (8) Polysubstance Is this a current diagnosis for this admission?: Yes Plan: Patient has been counseled. Has been evaluated by psych multiple times. - Time Time Spent with patient: 35 or more minutes Medications reviewed and adjusted accordingly: Yes Anticipated discharge: Home Within: within 24 hours Disposition: Time spent with patient included multiple visits, review of records and formulation of plan was over 35 mins. Patient's code status at this time is full interventions.
[2018-01-04] MEDS: LIPASE/PROTEASE/AMYLASE 1 CAP CAPSULE.DR PO SCH (20:05)
[2018-01-04] MEDS: DICYCLOMINE HCL 20 MG TABLET PO PRN (22:33)
[2018-01-05] MEDS: INSULIN REG, HUMAN 100 UNIT/ML 3 ML VIAL (PYX) SUBCUT PRN (00:36)
[2018-01-05 04:58] LABS: ABSOLUTE BASOPHILS # (AUTO) 0.1 10^3/uL (0.0-0.2); ABSOLUTE LYMPHOCYTES (AUTO) 3.3 10^3/uL (0.5-4.7); ABSOLUTE MONOCYTES (AUTO) 0.8 10^3/uL (0.1-1.4); ABSOLUTE NEUT (AUTO) 9.7 10^3/uL (1.7-8.2); EOSINOPHILS % (AUTO) 0.2 % (0-6); HEMATOCRIT 27.2 % (36.0-47.0); HEMOGLOBIN 9.1 g/dL (12.0-15.5); LYMPHOCYTES % (AUTO) 23.7 % (13-45); MEAN CORPUSCULAR HEMOGLOBIN 28.7 pg (27.0-33.4); MEAN CORPUSCULAR HGB CONC 33.5 g/dL (32.0-36.0); MEAN CORPUSCULAR VOLUME 86 fl (80-97); MONOCYTES % (AUTO) 5.5 % (3-13); PLATELET COUNT 278 10^3/uL (150-450); RED BLOOD COUNT 3.17 10^6/uL (3.72-5.28); RED CELL DISTRIBUTION WIDTH 14.8 % (11.5-14.0); SEGMENTED NEUTROPHILS % (AUTO) 69.6 % (42-78); TOTAL CELLS COUNTED % (AUTO) 100 %; WHITE BLOOD COUNT 13.9 10^3/uL (4.0-10.5)
[2018-01-05] MEDS: DICYCLOMINE HCL 20 MG TABLET PO PRN ×2 (05:18→17:11)
[2018-01-05] MEDS: DIVALPROEX SODIUM 125 MG CAP.SPRINK PO SCH ×3 (05:18→21:15)
[2018-01-05] MEDS: METOCLOPRAMIDE HCL INJ/PF 10 MG/2 ML SDV IV SCH ×3 (05:19→17:11)
[2018-01-05 05:23] LABS: ALANINE AMINOTRANSFERASE 21 U/L (9-52); ALBUMIN 3.1 g/dL (3.5-5.0); ALKALINE PHOSPHATASE 98 U/L (38-126); ANION GAP 8 (5-19); ASPARTATE AMINO TRANSFERASE 20 U/L (14-36); BILIRUBIN,DIRECT 0.3 mg/dL (0.0-0.4); BILIRUBIN,TOTAL 0.5 mg/dL (0.2-1.3); BLOOD UREA NITROGEN 30 mg/dL (7-20); CALCIUM 9.3 mg/dL (8.4-10.2); CARBON DIOXIDE 24 mmol/L (22-30); CHLORIDE 110 mmol/L (98-107); GLUCOSE 135 mg/dL (75-110); LIPASE 237.9 U/L (23-300); POTASSIUM 4.7 mmol/L (3.6-5.0); SODIUM 142.2 mmol/L (137-145); TOTAL PROTEIN 5.9 g/dL (6.3-8.2)
[2018-01-05] MEDS: POTASSI CL 20 MEQ/1/2NS 1L 20 MEQ/1,000 ML RTUINJ IV PRN ×2 (06:04→11:32)
[2018-01-05] MEDS ORDERED: OXYCODONE-ACETAMINOPHEN 5-325 MG TABLET PO ONE ×2 (06:30→21:00)
[2018-01-05] MEDS ORDERED: OXYCODONE HCL IR 5 MG TABLET PO ONE ×2 (06:30→21:00)
[2018-01-05] MEDS: LIPASE/PROTEASE/AMYLASE 1 CAP CAPSULE.DR PO SCH ×2 (08:13→15:12)
--- NOTE | 2018-01-05 08:17 | RADIOLOGY REPORT (SQ) ---
EXAM DESCRIPTION: U/S ABD AORTIC SCREENING COMPLETED DATE/TIME: 01/04/2018 11:39 pm REASON FOR STUDY: Abd pain COMPARISON: None. TECHNIQUE: Static and dynamic grayscale images acquired of the aorta and stored on PACs. Selected co artur Doppler and spectral images recorded. LIMITATIONS: None. FINDINGS: AORTIC CALIBER MAXIMAL PROXIMAL: 1.3 cm. MID: 1.1 cm. DISTAL: 1.1 cm. ILIAC DIAMETER RIGHT: 0.9 cm. LEFT: 0.9 cm. OTHER: No other significant finding. IMPRESSION: NO ABDOMINAL AORTIC ANEURYSM. COMMENT: Aortic aneurysm imaging followup: Negative, no followup necessary. *Based upon the Society for Vascular Surgery Guidelines: J Vasc Surg. 2009 Oct;50(4 Suppl):S2-49 *For aortas of maximum diameter of 2.6-2.9 cm meeting the criteria for AAA (?1.5 x proximal normal se gment) TECHNICAL DOCUMENTATION: JOB ID: [id number] [employer]- All Rights Reserved Reading location - IP/workstation name: [email or web address]-[email or web address]
[2018-01-05] MEDS: LISINOPRIL 10 MG TABLET PO SCH (09:08)
[2018-01-05] MEDS: AMLODIPINE BESYLATE 5 MG TABLET PO SCH ×2 (09:08→21:17)
[2018-01-05] MEDS: PANTOPRAZOLE SODIUM 40 MG VIAL IV SCH (09:08)
[2018-01-05] MEDS: METOPROLOL SUCCINATE 50 MG TAB.SR.24H PO SCH ×2 (09:08→21:17)
[2018-01-05] MEDS: ENOXAPARIN SODIUM INJ 40 MG/0.4 ML DISP.SYRIN SUBCUT SCH (09:09)
[2018-01-05] MEDS: INSULIN GLARGINE,HUM.REC.ANLOG 300 UNIT/3 ML INSULN.PEN SUBCUT SCH (09:09)
[2018-01-05] MEDS ORDERED: INSULIN LISPRO 100 UNIT/ML 3 ML VIAL SUBCUT PRN (11:29)
[2018-01-05 13:10] LABS: ANION GAP 11 (5-19); BLOOD UREA NITROGEN 29 mg/dL (7-20); CARBON DIOXIDE 20 mmol/L (22-30); CHLORIDE 103 mmol/L (98-107); POTASSIUM 5.4 mmol/L (3.6-5.0); SODIUM 133.6 mmol/L (137-145)
[2018-01-05 13:20] LABS: GLUCOSE 544 mg/dL (75-110)
[2018-01-05] MEDS ORDERED: INSULIN REG, HUMAN 100 UNIT/ML 3 ML VIAL (PYX) IV ONE (14:30)
[2018-01-05] MEDS ORDERED: NORMAL SALINE 1000 ML 1,000 ML IV PRN ×2 (14:51→14:52)
[2018-01-05] MEDS: ONDANSETRON HCL INJ/PF 4 MG/2 ML SDV IV PRN (15:12)
[2018-01-05] MEDS ORDERED: ONDANSETRON 4 MG TAB.RAPDIS PO PRN (17:27)
--- NOTE | 2018-01-05 19:02 | PROGRESS NOTE E ---
Progress Note NAME: JJ HOFFMAN : 1980 AGE: 37Y DATE: 01/05/2018 ROOM: 309 SUBJECTIVE: The patient is sitting up at the side of the bed. The patient still complains of abdominal pain. I have gone over the patient's test results with her, and the patient is quite insistent. Interestingly, the patient has been getting a pediatric tray to her room, as it was very difficult to understand why the patient's blood sugar went from 133 this morning to 454 in just a couple of hours, if indeed the patient was only consuming clear liquids. The patient did receive a basal dose of Lantus. I obtained a chemistry that revealed a glucose of 544. Again, her blood sugars appear oddly labile and the patient does not voice any other concerns at this time. I did discuss with the patient that upon review of previous records, with encounters with psychiatric services as well as potential for narcotic bowel, that the use of opiates would be extremely limited and the use would be exceptional. The patient voiced understanding about that. REVIEW OF SYSTEMS: The rest of the review of systems is negative. MEDICATION: Reviewed. OBJECTIVE: GENERAL: The patient is a 37-year-old -[place] female, who is awake, alert and oriented to person, place, time and situation. She is verbal and conversational. Does not appear to be in any acute distress. VITAL SIGNS: Temperature is 98.5, pulse 82, respirations 16, blood pressure is 140/85, oxygen saturation is 100% on room air. SKIN: Warm and dry. No rash. She is not diaphoretic. HEENT: Pupils are reactive. There is no evidence of JVP. CVS: The heart is in normal sinus rhythm. CHEST: Symmetrical, unlabored. EXTREMITIES: No clubbing, cyanosis or edema. PSYCHIATRIC: The patient does have a weakened voice and flat affect. DIAGNOSTICS: Lab values are as follows: Hematology obtained on 01/05/2018: WBCs are 13.9, hemoglobin is 9.1, hematocrit is 27.2, platelet count is 378,000. Chemistry obtained 01/05/2018: Sodium is 133, potassium 5.4, chloride is 103, carbon dioxide 20, BUN 29, creatinine 0.63. Glucose 544. Calcium is 9.0. IMPRESSION AND PLAN: 1. HYPEROSMOLAR NONKETOTIC HYPERGLYCEMIA. The patient is an uncontrolled diabetic. Uncertain of how compliant the patient has been with her clear liquid diet, as she did have a pediatric tray delivered to her room. Will continue sliding scale coverage and current basal dose of Lantus; however, the patient's glucose was high, so we will give her a bolus of saline and give her 5 units of R IV. 2. ACUTE KIDNEY INJURY. This has improved significantly. The patient is at her baseline creatinine. 3. LEUKOCYTOSIS, MOST LIKELY DUE TO HHS. Will continue to hydrate and monitor labs. 4. CHRONIC PANCREATITIS. Interestingly, the patient's lipase is 144. The MRCP of the abdomen today was not suggestive of chronic calcifications to suggest chronic pancreatitis. Will monitor. 5. ABDOMINAL PAIN. The patient has had extensive workup, including ultrasound, evaluation for triple A, biliary workup. Do not see any obvious source. Will continue to symptomatically manage without opiates. 6. HYPERTENSION. The patient is on Norvasc, metoprolol, lisinopril. Can have p.r.n. hydralazine. Will follow. 7. SEIZURE DISORDER. Continue Depakote and seizure precautions. 8. POLYSUBSTANCE. The patient has been counseled and she has been evaluated by Psych multiple times in the past. DISPOSITION: The patient is a FULL CODE. Pending patient's symptomatology and diagnostic findings, will reevaluate in the a.m. for discharge. The patient can be downgraded to a medical bed. Time spent on this followup, including assessment, plan, physical examination, patient education and review of records, is 35 minutes. DICTATING PHYSICIAN: ASHLEIGH PARIKH NP [id number] PHY#: [id number] ID: [id number] JOB#: [id number] ACCT: [id number] cc: >
[2018-01-05] MEDS ORDERED: HYDRALAZINE HCL 25 MG TABLET PO PRN (19:59)
[2018-01-05] MEDS: METOCLOPRAMIDE HCL 10 MG TABLET PO SCH (21:16)
[2018-01-05] MEDS: DEXTROSE 40% GEL 15 GM TUBE PO PRN ×2 (21:39→22:04)
[2018-01-05] MEDS ORDERED: TEMAZEPAM 15 MG CAPSULE PO ONE (22:00)
[2018-01-06 05:24] LABS: HEMATOCRIT 26.4 % (36.0-47.0); HEMOGLOBIN 8.9 g/dL (12.0-15.5); MEAN CORPUSCULAR HEMOGLOBIN 29.2 pg (27.0-33.4); MEAN CORPUSCULAR HGB CONC 33.7 g/dL (32.0-36.0); MEAN CORPUSCULAR VOLUME 87 fl (80-97); PLATELET COUNT 245 10^3/uL (150-450); RED BLOOD COUNT 3.04 10^6/uL (3.72-5.28); RED CELL DISTRIBUTION WIDTH 14.5 % (11.5-14.0); WHITE BLOOD COUNT 7.7 10^3/uL (4.0-10.5)
[2018-01-06 05:41] LABS: ANION GAP 11 (5-19); BLOOD UREA NITROGEN 23 mg/dL (7-20); CARBON DIOXIDE 23 mmol/L (22-30); CHLORIDE 104 mmol/L (98-107); GLUCOSE 268 mg/dL (75-110); POTASSIUM 4.5 mmol/L (3.6-5.0); SODIUM 137.7 mmol/L (137-145)
[2018-01-06] MEDS: DIVALPROEX SODIUM 125 MG CAP.SPRINK PO SCH (06:46)
[2018-01-06] MEDS: METOCLOPRAMIDE HCL 10 MG TABLET PO SCH (07:53)
[2018-01-06] MEDS: LIPASE/PROTEASE/AMYLASE 1 CAP CAPSULE.DR PO SCH (07:53)
[2018-01-06] MEDS: ENOXAPARIN SODIUM INJ 40 MG/0.4 ML DISP.SYRIN SUBCUT SCH (09:11)
[2018-01-06] MEDS: LISINOPRIL 10 MG TABLET PO SCH (09:11)
[2018-01-06] MEDS: METOPROLOL SUCCINATE 50 MG TAB.SR.24H PO SCH (09:12)
[2018-01-06] MEDS: INSULIN GLARGINE,HUM.REC.ANLOG 300 UNIT/3 ML INSULN.PEN SUBCUT SCH (09:12)
[2018-01-06] MEDS: AMLODIPINE BESYLATE 5 MG TABLET PO SCH (09:12)
[2018-01-06] MEDS ORDERED: LANSOPRAZOLE 30 MG TAB.RAP.DR PO SCH (10:00)
[2018-01-06 10:33] VITALS: BP 202/109
--- NOTE | 2018-01-08 09:12 | DISCHARGE SUMMARY E ---
Discharge Summary NAME: JJ HOFFMAN : 1980 AGE: 37Y ADMITTED: 01/03/2018 DISCHARGED: 01/06/2018 CODE STATUS: FULL CODE. PRIMARY CARE PROVIDER: ROSIO Mckeon DISCHARGE DIAGNOSES: INCLUDES: 1. HYPEROSMOLAR NONKETOTIC HYPERGLYCEMIA, MUCH BETTER CONTROLLED. 2. ACUTE KIDNEY INJURY, RESOLVED. 3. LEUKOCYTOSIS SECONDARY TO NUMBER 1, IMPROVED. 4. CHRONIC ABDOMINAL PAIN. PRETTY MUCH IDIOPATHIC. MRCP DID NOT SHOW EVIDENCE OF CHRONIC PANCREATITIS. 5. HYPERTENSION. 6. SEIZURE DISORDER. 7. HISTORY OF POLYSUBSTANCE USE. 8. CHRONIC KIDNEY DISEASE, STAGE-III. DISCHARGE MEDICATIONS: Include: 1. Levosin sublingually 0.125 mg q. 4 minute p.r.n.; 30 tablets, 0 refills. 2. Toprol XL 50 mg p.o. q. 12 hours. 3. Lisinopril 40 mg p.o. daily. 4. Novolog FlexPen before meals and at bedtime. 5. Lantus 30 units subcutaneously daily. 6. Depakote sprinkles 250 mg p.o. t.i.d. 7. Norvasc 5 mg p.o. b.i.d. DIET: Heart healthy diabetic, as tolerated. ACTIVITY: As tolerated. CONDITION: Fair. DIAGNOSTICS: Lab values are as follows: Hematology obtained on 01/06/2018: WBCs are 7.7, hemoglobin is 10.9, hematocrit is 26.4, platelet count is 345,000. Venous blood gas obtained on 01/03/2018: pH of 7.24, PCO2 is 51.8, Bicarb is 21.5. Chemistry obtained on 01/06/2018: Sodium is 137, potassium 4.5, chloride is 104, carbon dioxide 23, BUN 23, creatinine is 1.6, glucose 210, A1c is 10.1, calcium 9.0, magnesium is 1.7, bilirubin is 0.5. AST 20, ALT is 21, Jessie-phos 98. Total protein 5.9, albumin 3..1. Lipase is 237, HCG is less than 2.39. Urinalysis obtained on 01/03/2018: Color: Clear color with appearance clear. PH is 5.0. Specific gravity is 1.015. Protein 100, glucose greater than 500, ketones 20, occult blood small, nitrite negative, bilirubin negative, urobilinogen is negative, leukocyte esterase is negative. WBC 1. Other body source obtained on 01/03/2018: Stool for occult blood was positive. Microbiology obtained 01/03/2018: Urine reveals no growth. CT of the abdomen and pelvis obtained on 01/03/2018 reveals no acute findings of the abdomen or pelvis. Head CT obtained on 01/03/2018 reveals no acute intracranial abnormality. Abdominal MRCP obtained on 01/04/2018 reveals a normal hepatobiliary scan. No stones or common bile duct abnormalities. Pancrease reveals no growth mass or significant signal alteration. No surrounding inflammatory changes or fluid. Pancreatic duct is normal. Calcifications at the pancreatic head from chronic pancreatitis are not evident on MRI. Abdominal ultrasound obtained on 01/04/2018 reveals no evidence of abdominal aortic aneurysm. PHYSICAL EXAMINATION: GENERAL: On examination, the patient is a well-developed, well-nourished, 37-year-old -Thai female who is awake, alert, and oriented to person, place, time, and situation. She is verbal, conversational, does not appear to be in any acute distress. VITAL SIGNS: Temperature is 98.5, pulse 84, respirations 16, blood pressure is 131/85, oxygen saturation is 100% on room air. SKIN: Warm and dry. No rash. She is not diaphoretic. HEENT: Pupils are reactive. No evidence of JVP. CARDIOVASCULAR SYSTEM: The patient was in normal sinus rhythm. CHEST: Symmetrical, unlabored. ABDOMEN: Nondistended. EXTREMITIES: No evidence of edema. PSYCHIATRIC: The patient does have a dramatic affect. HISTORY OF PRESENT ILLNESS: The patient is a 37-year-old -Thai female with a past medical history of diabetes mellitus type 2. The patient presented to the emergency department with a chief complaint of having high blood sugar. The patient stated that she felt her insulin may have went bad. The patient stated that she was taking her insulin as directed but over the last couple of days she started feeling worse. She had some nausea along with abdominal pain. She came into the ER, had a battery of tests ran and the patient appeared to have findings more suggestive of a nonketotic hyperglycemic state and she was referred to the hospital for admission and management. HOSPITAL COURSE: The patient was is well-known to the hospitalist service. I would like to note that this July the patient has had 19 contacts with the Emergency Department. Many of these resulting in inpatient stays. The patient did have an episode of seizure like activity that was noted. The patient did not appear to have a postictal state. The patient was medicated with her home medication and was loaded with Keppra during that episode. The patient was initially admitted to the Critical Care Unit, was hydrated, and the patient's hyperglycemia did improve with hydration, insulin supplementation, and the patient's creatinine returned to its baseline. The patient complained of ongoing abdominal pain at times, rising and screaming with pain. However, on examination the patient did not have evidence of a surgical belly and would allow manipulation in examination. There was no guarding, rigidity noted. The patient did have a MRCP that did not even show evidence of calcifications that would be consistent with a chronic pancreatitis. There is no evidence of AAA. Further labs including LFTs were in an acceptable range. The patient did not have significant lipase either. The patient was receiving a pediatric dane for her child and do have suspicion for sabotaging her discharge related to this as sugar packets were found on her diabetic dane, as patient was to go home the morning of 01/05/2018; however, her glucose was noted to be 135 on the morning chemistry that went to 544 in a couple of hours in spite of receiving her basal dose of Lantus as well as sliding scale coverage. However, the patient was effectively treated and glucoses are much better controlled and there is no evidence to suggest the patient's abdominal pain is acute in nature. The patient does admit to it being slightly improved. Her IV was discontinued. She was made aware that IV narcotics would not be offered to her as this would not be ideal for someone with chronic abdominal pain and therefore the patient was agreeable to discharge. DISCHARGE PLANNING: The patient is advised to follow up with a primary care provider within 1-2 weeks for hospital followup. Time spent on this discharge including assessment, plan, physical examination, patient education, review of records is 35 minutes. DICTATING PHYSICIAN: ASHLEIGH PARIKH NP [id number] [id number] PHY#: [id number] ID: [id number] JOB#: [id number] ACCT: [id number] cc:ALEXEY AVILES M.D. ASHLEIGH PARIKH NP >
== END 2018-01-06 11:22 | disposition home or self-care (01) | DRG 642 ==
LOC: ER 06:42 → EH 09:25 → 3N 16:12 → ICU 19:08 → 3N 01-04 15:27
PROVIDERS: ADMIT Emergency Medicine; ATTEND Emergency Medicine
DX: E72.51 Non-ketotic hyperglycinemia (principal); K85.90 Acute pancreatitis without necrosis or infection, unspecified; N17.9 Acute kidney failure, unspecified; K92.1 Melena; K86.1 Other chronic pancreatitis; I10 Essential (primary) hypertension; G40.909 Epilepsy, unspecified, not intractable, without status epilepticus; E11.22 Type 2 diabetes mellitus with diabetic chronic kidney disease; N18.3 Chronic kidney disease, stage 3 (moderate); E78.00 Pure hypercholesterolemia, unspecified; K74.60 Unspecified cirrhosis of liver; D64.9 Anemia, unspecified; F17.210 Nicotine dependence, cigarettes, uncomplicated; E11.65 Type 2 diabetes mellitus with hyperglycemia; F19.10 Other psychoactive substance abuse, uncomplicated; Z23 Encounter for immunization; Z79.899 Other long term (current) drug therapy; Z90.710 Acquired absence of both cervix and uterus; Z82.49 Family history of ischemic heart disease and other diseases of the circulatory system; Z83.3 Family history of diabetes mellitus; Z88.6 Allergy status to analgesic agent; Z79.4 Long term (current) use of insulin
CPT/HCPCS: 36415; 70450; 74176; 74181; 76706; 80048; 80053; 81001; 82040; 82272; 82803; 82962; 83036; 83690; 83735; 84702; 85025; 85027; 86850; 86900; 86901; 87086; 90686; 93005; 93010; 96361; 96374; 96375; 99291; J0360; J0500; J1650; J1815; J1885; J1953; J2060; J2405; J2765; J3010; J3480; J3490; J7030; S0119; S0164

== ENCOUNTER 2018-02-02 14:51 | Emergency (ER) | payer MEDICAID ==
[2018-02-02 14:59] VITALS: BP 136/89
[2018-02-02] MEDS ORDERED: NORMAL SALINE 1000 ML 1,000 ML IV ONE (16:56)
--- NOTE | 2018-02-02 16:58 | ER Document Report ---
ED Medical Screen (RME) - General Chief Complaint: Abdominal Pain Stated Complaint: ABDOMINAL PAIN Time Seen by Provider: 02/02/18 16:56 Mode of Arrival: Ambulatory Information source: Patient Notes: Patient presents complaining of abdominal pain to the epigastric area that started this morning. Patient reports cough for the past 3 days with subjective fever. Patient denies any nausea or vomiting but does report diarrhea symptoms. Patient reports that her blood sugar has been dropping into the 40s and 50s. Patient denies any recent changes in her medications. hx: CKD, diabetes, hypertension I have greeted and performed a rapid initial assessment of this patient. A comprehensive ED assessment and evaluation of the patient, analysis of test results and completion of the medical decision making process will be conducted by additional ED providers. TRAVEL OUTSIDE OF THE [place] IN LAST 30 DAYS: No - Related Data Allergies/Adverse Reactions: hydrocodone [From [place]] Allergy (Verified 02/02/18 16:56) morphine Allergy (Verified 02/02/18 16:56) Past Medical History - Social History Chew tobacco use (# tins/day): No Frequency of alcohol use: None Drug Abuse: Marijuana - Past Medical History Cardiac Medical History: Reports: Hx Hypercholesterolemia, Hx Hypertension Pulmonary Medical History: Denies: Hx COPD Neurological Medical History: Reports: Hx Seizures Endocrine Medical History: Reports: Hx Diabetes Mellitus Type 1, Hx Diabetes Mellitus Type 2 Renal/ Medical History: Denies: Hx End Stage Renal Disease, Hx Peritoneal Dialysis GI Medical History: Reports: Hx Cirrhosis, Hx Pancreatitis Musculoskeltal Medical History: Denies Hx Arthritis Skin Medical History: Denies Hx Eczema, Denies Hx Psoriasis Psychiatric Medical History: Denies: Hx Dementia, Hx Depression Past Surgical History: Reports: Hx Section - x3, Hx Hysterectomy - Immunizations History of Influenza Vaccine for 11/2016 - 04/2017 Season: No Physical Exam - Vital signs Vitals: Temp Pulse Resp BP Pulse Ox 98.6 F 105 H 18 136/89 H 98 02/02/18 14:58 02/02/18 14:58 02/02/18 14:58 02/02/18 14:58 02/02/18 14:58 - Abdominal Tenderness: Tender - epigastric Course - Vital Signs Vital signs: Temp Pulse Resp BP Pulse Ox 98.6 F 105 H 18 136/89 H 98 02/02/18 14:58 02/02/18 14:58 02/02/18 14:58 02/02/18 14:58 02/02/18 14:58 Doctor's Discharge - Discharge Referrals: RONALD BARKER FNP-C [Primary Care Provider] - Follow up as needed
== END 2018-02-02 18:28 | disposition left against medical advice (07) ==
LOC: ER 14:51
DX: R10.13 Epigastric pain (principal); R05 Cough; I10 Essential (primary) hypertension; E11.9 Type 2 diabetes mellitus without complications; F12.10 Cannabis abuse, uncomplicated; Z88.5 Allergy status to narcotic agent; Z53.20 Procedure and treatment not carried out because of patient's decision for unspecified reasons
CPT/HCPCS: 99281

== ENCOUNTER 2018-03-06 16:19 | Emergency (ER) | payer MEDICAID ==
[2018-03-06 16:41] VITALS: BP 144/103
== END 2018-03-06 18:12 | disposition left against medical advice (07) ==
LOC: ER 16:19
DX: Z53.21 Procedure and treatment not carried out due to patient leaving prior to being seen by health care provider (principal)

== ENCOUNTER 2018-04-05 15:57 | Emergency (ER) | payer MEDICAID ==
--- NOTE | 2018-04-05 16:18 | ER Document Report ---
HPI - HPI Time Seen by Provider: 04/05/18 16:04 Pain Level: 3 Notes: Patient is a 37-year-old female who presents the emergency department complaining of possible stye to her right eye and increased tearing over the last day. Patient states that there is an irritation/burning associated. She has not noticed any purulence. Patient states that on occasion she will get blurring she does not want to open her eye. She does not wear contact lenses. Denies any foreign body sensation. No other concerns or complaints at this time. Denies any headache, fever, head injury, neck pain, URI, sore throat, chest pain, palpitations, syncope, cough, shortness of breath, wheeze, dyspnea, abdominal pain, nausea/vomiting/diarrhea, urinary retention, dysuria, hematuria, or rash. - ROS Systems Reviewed and Negative: Yes All other systems reviewed and negative - EENT EENT: REPORTS: Eye problems - R eye - REPRODUCTIVE Reproductive: DENIES: : Past Medical History - Social History Smoking Status: Never Smoker Family History: Reviewed & Not Pertinent, DM, Hypertension Patient has suicidal ideation: No Patient has homicidal ideation: No - Past Medical History Cardiac Medical History: Reports: Hx Hypercholesterolemia, Hx Hypertension Pulmonary Medical History: Denies: Hx COPD Neurological Medical History: Reports: Hx Seizures Endocrine Medical History: Reports: Hx Diabetes Mellitus Type 1, Hx Diabetes Mellitus Type 2 Renal/ Medical History: Denies: Hx End Stage Renal Disease, Hx Peritoneal Dialysis GI Medical History: Reports: Hx Cirrhosis, Hx Pancreatitis Musculoskeletal Medical History: Denies Hx Arthritis Skin Medical History: Denies Hx Eczema, Denies Hx Psoriasis Psychiatric Medical History: Denies: Hx Dementia, Hx Depression Past Surgical History: Reports: Hx Section - x3, Hx Hysterectomy Vertical Provider Document - CONSTITUTIONAL Agree With Documented VS: Yes Notes: PHYSICAL EXAMINATION: GENERAL: Well-appearing, well-nourished and in no acute distress. A&Ox4 HEAD: Atraumatic, normocephalic. EYES: Pupils equal round and reactive to light, extraocular movements intact, sclera anicteric, conjunctiva left shows very mild episcleritis left w/o purulence or matting. Non-tender to palp of the globe and eye itself. No surrounding erythema or swelling noted. Visual acuity 20/20 b/l and in each eye. There is a small appearing stye to the medial inferior lid vs inflammation of her tear duct, correlates with pt complaint. Wood's lamp/flourescein: No abrasion, laceration, ulceration, or sherron sign noted. No obvious foreign body appreciated. Tear duct does appear to be draining the flourescein. ENT: EAC clear b/l. TM's intact b/l without erythema, fluid, or perforation. Nares patent and without discharge. oropharynx clear without exudates. No tonsilar hypertrophy or erythema. Moist mucous membranes. No sinus tenderness. Uvula midline. No palatine shift. No airway compromise. No drooling or hoarseness. NECK: Normal range of motion, supple without lymphadenopathy. No rigidity/meningismus. LUNGS: Breath sounds clear to auscultation bilaterally and equal. No wheezes rales or rhonchi. HEART: Regular rate and rhythm without murmurs, rubs, gallops. Musculoskeletal: Ext b/l: FROM to passive/active. Strength 5+/5. Extremities: No cyanosis, clubbing, or edema b/l. Peripheral pulses 2+. Capillary refill less than 3 seconds. NEUROLOGICAL: Cranial nerves grossly intact. Normal speech, normal gait. PSYCH: Normal mood, normal affect. SKIN: Warm, Dry, normal turgor, no rashes or lesions noted. - INFECTION CONTROL TRAVEL OUTSIDE OF THE [place] IN LAST 30 DAYS: No Course - Re-evaluation Re-evalutation: 04/05/18 16:25 Patient is an afebrile, well-hydrated, 37-year-old female who presents the emergency department with a stye to her right medial lower eyelid versus inflammation of her tear duct without active purulence. Vitals are acceptable without significant tachycardia, tachypnea, or hypoxia. PE is otherwise unremarkable. She is nontoxic-appearing and is tolerating p.o. without difficulty. No further labs or imaging warranted at this time. Low suspicion for any retained corneal or lid foreign body, deep space infection including orbital cellulitis/abscess, acute glaucoma, penetrating globe injury, retinal detachment, meningitis, sepsis, fracture, compartment syndrome. I will send home with a prescription for erythromycin ointment to use as directed. Conservative measures otherwise for symptoms with proper handwashing. Recheck with your PCM in 3-5 days. Schedule a f/u with Ophthalmology next week. Return to the ED with any worsening/concerning symptoms otherwise as reviewed in discharge. Patient is in agreement. Procedures - Eye Procedure Right Time completed: 16:20 Eye Irrigated w/ Saline (ccs): 10 - see exam, no complications Alcaine Drops Administered: Yes - tetracaine Fluorescein applied: Right Discharge - Discharge Clinical Impression: Stye Qualifiers: Laterality: right Eyelid: lower Qualified Code(s): H00.012 - Hordeolum externum right lower eyelid Condition: Stable Disposition: HOME, SELF-CARE Additional Instructions: Keep eyes clean Avoid scratching/touching eyes Wash hands regularly Use eye drops as directed Maintain adequate fluid intake tylenol/ibuprofen as needed over the counter cold medication as needed for symptoms F/u: with your PCM in 2-3 days for a recheck Consider consult with Ophthalmology for ongoing/worsening symptoms Return to the ED with any worsening symptoms and/or development of fever, headache, changes in vision, eye pain, worsening eye redness, redness around the eyes, purulent discharge, sore throat, facial swelling, neck pain/stiffness, chest pain, palpitations, syncope, shortness of breath, trouble breathing, abdominal pain, n/v/d, blood in stool/urine, dysuria, or other worsening symptoms that are concerning to you. Prescriptions: Erythromycin Base [Erythromycin Oph 1 gm Oint Ud] 1 applic OP QID #1 tube Forms: Elevated Blood Pressure Referrals: NICOLÁS SHANKS MD [ACTIVE STAFF] - Follow up in 3-5 days
[2018-04-05 16:48] VITALS: BP 167/108
== END 2018-04-05 16:48 | disposition home or self-care (01) ==
LOC: ER 15:57
DX: H00.012 Hordeolum externum right lower eyelid (principal); E11.9 Type 2 diabetes mellitus without complications; I10 Essential (primary) hypertension
CPT/HCPCS: 99283

== ENCOUNTER 2018-04-20 15:12 | Inpatient (IN) | payer MEDICAID ==
[2018-04-20] MEDS ORDERED: NORMAL SALINE 1000 ML 1,000 ML IV ONE ×2 (15:27→18:23)
[2018-04-20 15:37] LABS: ABSOLUTE BASOPHILS # (AUTO) 0.1 10^3/uL (0.0-0.2); ABSOLUTE EOSINOPHILS # (AUTO) 0.2 10^3/uL (0.0-0.6); ABSOLUTE LYMPHOCYTES (AUTO) 2.4 10^3/uL (0.5-4.7); ABSOLUTE MONOCYTES (AUTO) 0.7 10^3/uL (0.1-1.4); ABSOLUTE NEUT (AUTO) 4.4 10^3/uL (1.7-8.2); BASOPHILS % (AUTO) 1.2 % (0-2); EOSINOPHILS % (AUTO) 2.4 % (0-6); HEMATOCRIT 33.5 % (36.0-47.0); HEMOGLOBIN 11.2 g/dL (12.0-15.5); LYMPHOCYTES % (AUTO) 30.6 % (13-45); MEAN CORPUSCULAR HEMOGLOBIN 28.8 pg (27.0-33.4); MEAN CORPUSCULAR HGB CONC 33.4 g/dL (32.0-36.0); MEAN CORPUSCULAR VOLUME 86 fl (80-97); MONOCYTES % (AUTO) 8.5 % (3-13); PLATELET COUNT 362 10^3/uL (150-450); RED BLOOD COUNT 3.88 10^6/uL (3.72-5.28); RED CELL DISTRIBUTION WIDTH 14.9 % (11.5-14.0); SEGMENTED NEUTROPHILS % (AUTO) 57.3 % (42-78); TOTAL CELLS COUNTED % (AUTO) 100 %; VENOUS BLOOD BASE EXCESS 2.9 mmol/L; VENOUS BLOOD HCO3 29.7 mmol/L (20-32); VENOUS BLOOD PCO2 56.5 mmHg (35-63); VENOUS BLOOD PH 7.34 (7.30-7.42); WHITE BLOOD COUNT 7.8 10^3/uL (4.0-10.5)
[2018-04-20] MEDS ORDERED: LORAZEPAM INJ 2 MG/1 ML VIAL ONE (15:54)
[2018-04-20] MEDS ORDERED: LORAZEPAM INJ 2 MG/1 ML VIAL IV ONE (15:54)
[2018-04-20 16:00] LABS: ALANINE AMINOTRANSFERASE 22 U/L (9-52); ALBUMIN 3.7 g/dL (3.5-5.0); ALKALINE PHOSPHATASE 131 U/L (38-126); ANION GAP 9 (5-19); ASPARTATE AMINO TRANSFERASE 35 U/L (14-36); BILIRUBIN,DIRECT 0.3 mg/dL (0.0-0.4); BILIRUBIN,TOTAL 0.4 mg/dL (0.2-1.3); BLOOD UREA NITROGEN 22 mg/dL (7-20); CALCIUM 9.6 mg/dL (8.4-10.2); CARBON DIOXIDE 25 mmol/L (22-30); CHLORIDE 103 mmol/L (98-107); CREATINE KINASE 227 U/L (30-135); POTASSIUM 4.3 mmol/L (3.6-5.0); SODIUM 137.3 mmol/L (137-145); TOTAL PROTEIN 6.4 g/dL (6.3-8.2)
--- NOTE | 2018-04-20 16:02 | ER Document Report ---
ED General - General Chief Complaint: High Blood Sugar Stated Complaint: BLOOD SUGAR ISSUES Time Seen by Provider: 04/20/18 15:51 Notes: Patient is a 37-year-old female with insulin-dependent diabetes mellitus that presents to the emergency department for chief complaint of abdominal pain and confusion. Patient was brought to the emergency department by EMS, was complaining of abdominal pain, and concerned that she may be going into DKA wh ich she has in the past. She has been having increased work of breathing, and urinating more frequently. She states she did administer her 20 units of Lantus, and gave a dose of NovoLog, per EMS her blood glucose was 515. She is had some nausea and vomiting at home associated with this abdominal pain is been going on for the past few days. The pain is mainly epigastric in nature, and similar to when she is had pancreatitis and she is been concerned about that as well. Family states she has been mildly confused as well, but apparently now back to her baseline on my examination. Currently rates her abdominal pain as a 6 out of 10, aching in the epigastric region. Past Medical History: Diabetes mellitus, pancreatitis, seizure disorder, hypertension, hyperlipidemia Past Surgical History: , hysterectomy Social History: Former smoker quit recently, denies current alcohol use, history of chronic alcohol use, denies illicit drug use. Family History: Reviewed and noncontributory for presenting illness Allergies: Reviewed, see documented allergy list. REVIEW OF SYSTEMS: Other than noted above, the 12 point review of systems was reviewed with the patient and were negative, all pertinent findings are included in the HPI. PHYSICAL EXAMINATION: Vital signs reviewed, nursing noted reviewed. GENERAL: Patient appears older than stated age, and complaining of pain HEAD: Atraumatic, normocephalic. EYES: Eyes appear normal, extraocular movements intact, sclera anicteric, conjunctiva are normal. ENT: nares patent, oropharynx clear without exudates. Moist mucous membranes. NECK: Normal range of motion, supple without lymphadenopathy LUNGS: Breath sounds clear to auscultation bilaterally and equal. No wheezes rales or rhonchi. HEART: Regular rate and rhythm without murmurs ABDOMEN: Soft, tenderness to palpation in the epigastric region, normoactive bowel sounds. No rebound, guarding, or rigidity. No masses appreciated. EXTREMITIES: Nontender, good range of motion, no pitting or edema. NEUROLOGICAL: No focal neurological deficits. Moves all extremities spontaneously Motor and sensory grossly intact on exam. PSYCH: Normal mood, normal affect. SKIN: Warm, Dry, normal turgor, vitiligo TRAVEL OUTSIDE OF THE [place] IN LAST 30 DAYS: No - Related Data Allergies/Adverse Reactions: hydrocodone [From [place]] Allergy (Verified 04/05/18 15:58) morphine Allergy (Verified 04/05/18 15:58) Past Medical History - Social History Smoking Status: Former Smoker Family History: Reviewed & Not Pertinent, DM, Hypertension - Past Medical History Cardiac Medical History: Reports: Hx Hypercholesterolemia, Hx Hypertension Pulmonary Medical History: Denies: Hx COPD Neurological Medical History: Reports: Hx Seizures Endocrine Medical History: Reports: Hx Diabetes Mellitus Type 1, Hx Diabetes Mellitus Type 2 Renal/ Medical History: Denies: Hx End Stage Renal Disease, Hx Peritoneal Dialysis GI Medical History: Reports: Hx Cirrhosis, Hx Pancreatitis Musculoskeletal Medical History: Denies Hx Arthritis Skin Medical History: Denies Hx Eczema, Denies Hx Psoriasis Psychiatric Medical History: Denies: Hx Dementia, Hx Depression Past Surgical History: Reports: Hx Section - x3, Hx Hysterectomy Physical Exam - Vital signs Vitals: Temp Resp Pulse Ox 98 F 14 100 04/20/18 15:19 04/20/18 15:19 04/20/18 15:19 Course - Re-evaluation Re-evalutation: Patient seen and examined vital signs reviewed. Laboratory data and imaging were ordered as appropriate for the patient's presenting symptoms and complaint, with consideration of any critical or life threatening conditions that may be associated with their obtained history and exam as noted above. Patient was treated with IV fluid bolusing x2 Results were reviewed when available and demonstrated no leukocytosis, but did have markedly elevated lipase, 3600, which is consistent with her clinical exam and past medical history of pancreatitis, complaints of nausea and vomiting. No evidence of DKA, no acidosis, no anion gap. The patient was re-evaluated and was stable, mental status was at baseline, pain was worse therefore the patient was given a dose of IV Dilaudid 0.5 mg. After fluids repeat glucose was less than 300. Evaluation was most consistent with acute pancreatitis, hyperglycemia Results were discussed with the patient at this point after careful consideration I feel that that patient should be admitted to the hospital. This was discussed with the patient that it is in the best interest for their care to be admitted for further evaluation and management. Patient agreed with this plan of care. A call was placed to the admitted physician, Dr. Frankel who graciously accepted the patient onto their service. *Note is created using voice recognition software and may contain spelling, syntax or grammatical errors. Laboratory 04/20/18 04/20/18 04/20/18 15:20 15:20 15:20 WBC 7.8 RBC 3.88 Hgb 11.2 L Hct 33.5 L MCV 86 MCH 28.8 MCHC 33.4 RDW 14.9 H Plt Count 362 Seg Neutrophils % 57.3 Lymphocytes % 30.6 Monocytes % 8.5 Eosinophils % 2.4 Basophils % 1.2 Absolute Neutrophils 4.4 Absolute Lymphocytes 2.4 Absolute Monocytes 0.7 Absolute Eosinophils 0.2 Absolute Basophils 0.1 VBG pH VBG pCO2 VBG HCO3 VBG Base Excess Sodium 137.3 Potassium 4.3 Chloride 103 Carbon Dioxide 25 Anion Gap 9 BUN 22 H Creatinine 1.36 H Est GFR ( Amer) 53 L Est GFR (Non-Af Amer) 44 L Glucose 414 H* POC Glucose Calcium 9.6 Total Bilirubin 0.4 Direct Bilirubin 0.3 Neonat Total Bilirubin Not Reportable Neonat Direct Bilirubin Not Reportable Neonat Indirect Bili Not Reportable AST 35 ALT 22 Alkaline Phosphatase 131 H Creatine Kinase 227 H CK-MB (CK-2) 0.90 Troponin I < 0.012 Total Protein 6.4 Albumin 3.7 Lipase Urine Color Urine Appearance Urine pH Ur Specific [place] Urine Protein Urine Glucose (UA) Urine Ketones Urine Blood Urine Nitrite Urine Bilirubin Urine Urobilinogen Ur Leukocyte Esterase Urine WBC (Auto) Squamous Epi Cells Auto Urine Ascorbic Acid Urine Opiates Screen Urine Methadone Screen Ur Barbiturates Screen Ur Phencyclidine Scrn Ur Amphetamines Screen U Benzodiazepines Scrn Urine Cocaine Screen U Marijuana (THC) Screen 04/20/18 04/20/18 04/20/18 15:20 15:20 15:59 WBC RBC Hgb Hct MCV MCH MCHC RDW Plt Count Seg Neutrophils % Lymphocytes % Monocytes % Eosinophils % Basophils % Absolute Neutrophils Absolute Lymphocytes Absolute Monocytes Absolute Eosinophils Absolute Basophils VBG pH 7.34 VBG pCO2 56.5 VBG HCO3 29.7 VBG Base Excess 2.9 Sodium Potassium Chloride Carbon Dioxide Anion Gap BUN Creatinine Est GFR ( Amer) Est GFR (Non-Af Amer) Glucose POC Glucose 383 H Calcium Total Bilirubin Direct Bilirubin Neonat Total Bilirubin Neonat Direct Bilirubin Neonat Indirect Bili AST ALT Alkaline Phosphatase Creatine Kinase CK-MB (CK-2) Troponin I Total Protein Albumin Lipase 3449.9 H Urine Color Urine Appearance Urine pH Ur Specific [place] Urine Protein Urine Glucose (UA) Urine Ketones Urine Blood Urine Nitrite Urine Bilirubin Urine Urobilinogen Ur Leukocyte Esterase Urine WBC (Auto) Squamous Epi Cells Auto Urine Ascorbic Acid Urine Opiates Screen Urine Methadone Screen Ur Barbiturates Screen Ur Phencyclidine Scrn Ur Amphetamines Screen U Benzodiazepines Scrn Urine Cocaine Screen U Marijuana (THC) Screen 04/20/18 04/20/18 04/20/18 16:45 16:45 19:54 WBC RBC Hgb Hct MCV MCH MCHC RDW Plt Count Seg Neutrophils % Lymphocytes % Monocytes % Eosinophils % Basophils % Absolute Neutrophils Absolute Lymphocytes Absolute Monocytes Absolute Eosinophils Absolute Basophils VBG pH VBG pCO2 VBG HCO3 VBG Base Excess Sodium Potassium Chloride Carbon Dioxide Anion Gap BUN Creatinine Est GFR ( Amer) Est GFR (Non-Af Amer) Glucose POC Glucose 259 H Calcium Total Bilirubin Direct Bilirubin Neonat Total Bilirubin Neonat Direct Bilirubin Neonat Indirect Bili AST ALT Alkaline Phosphatase Creatine Kinase CK-MB (CK-2) Troponin I Total Protein Albumin Lipase Urine Color STRAW Urine Appearance CLEAR Urine pH 6.0 Ur Specific [place] 1.013 Urine Protein 30 H Urine Glucose (UA) >=500 H Urine Ketones NEGATIVE Urine Blood MODERATE H Urine Nitrite NEGATIVE Urine Bilirubin NEGATIVE Urine Urobilinogen NEGATIVE Ur Leukocyte Esterase NEGATIVE Urine WBC (Auto) 1 Squamous Epi Cells Auto <1 Urine Ascorbic Acid NEGATIVE Urine Opiates Screen NEGATIVE Urine Methadone Screen NEGATIVE Ur Barbiturates Screen NEGATIVE Ur Phencyclidine Scrn NEGATIVE Ur Amphetamines Screen NEGATIVE U Benzodiazepines Scrn NEGATIVE Urine Cocaine Screen NEGATIVE U Marijuana (THC) Screen UNCONFIRMED POSITIVE - Vital Signs Vital signs: Temp Pulse Resp BP Pulse Ox 98 F 20 167/106 H 100 04/20/18 15:19 04/20/18 21:05 04/20/18 21:05 04/20/18 21:05 - Laboratory Result Diagrams: 04/20/18 15:20 04/20/18 15:20 Laboratory results interpreted by me: 04/20/18 04/20/18 04/20/18 15:20 15:20 15:20 Hgb 11.2 L Hct 33.5 L RDW 14.9 H BUN 22 H Creatinine 1.36 H Est GFR ( Amer) 53 L Est GFR (Non-Af Amer) 44 L Glucose 414 H* POC Glucose Alkaline Phosphatase 131 H Creatine Kinase 227 H Lipase 3449.9 H Urine Protein Urine Glucose (UA) Urine Blood 04/20/18 04/20/18 04/20/18 15:59 16:45 19:54 Hgb Hct RDW BUN Creatinine Est GFR ( Amer) Est GFR (Non-Af Amer) Glucose POC Glucose 383 H 259 H Alkaline Phosphatase Creatine Kinase Lipase Urine Protein 30 H Urine Glucose (UA) >=500 H Urine Blood MODERATE H - EKG Interpretation by Me Additional EKG results interpreted by me: EKG demonstrates sinus rhythm with a ventricular rate of 93 bpm, normal axis, QTC 463 ms, no ST segment changes, is compared to prior EKG from 01/03/2018, without significant change. Discharge - Discharge Clinical Impression: Hyperglycemia Acute pancreatitis Qualifiers: Pancreatitis type: unspecified pancreatitis type Acute pancreatitis complication: unspecified Qualified Code(s): K85.90 - Acute pancreatitis without necrosis or infection, unspecified Condition: Stable Disposition: ADMITTED INPATIENT Admitting Provider: Hospitalist - Dr. Frankel Unit Admitted: Medical Floor
[2018-04-20 16:21] LABS: TROPONIN I < 0.012 ng/mL
[2018-04-20 16:23] LABS: GLUCOSE 414 mg/dL (75-110)
[2018-04-20 17:01] LABS: APPEARANCE,URINE CLEAR; BILIRUBIN,URINE NEGATIVE (NEGATIVE); COLOR,URINE STRAW; GLUCOSE, URINE >=500 mg/dL (NEGATIVE); KETONES,URINE NEGATIVE (NEGATIVE); LEUKOCYTE ESTERASE,URINE NEGATIVE (NEGATIVE); NITRITE,URINE NEGATIVE (NEGATIVE); PROTEIN,URINE 30 mg/dL (NEGATIVE); URINE SPECIFIC GRAVITY 1.013; UROBILINOGEN,URINE NEGATIVE mg/dL (<2.0)
[2018-04-20] MEDS ORDERED: ACETAMINOPHEN 325 MG TABLET PO ONE (17:15)
--- NOTE | 2018-04-20 18:56 | EKG REPORT ---
SEVERITY:- ABNORMAL ECG - SINUS RHYTHM ABNORMAL Q SUGGESTS ANTERIOR INFARCT : Confirmed by: Alvaro Lema MD 20-Apr-2018 18:55:20
[2018-04-20] MEDS ORDERED: HYDROMORPHONE HCL INJ/PF 2 MG/ML AMPULE IV ONE (19:17)
[2018-04-20] MEDS ORDERED: DEXTROSE 40% GEL 15 GM TUBE PO PRN ×2 (20:36)
[2018-04-20] MEDS ORDERED: MAG HYDROX/AL HYDROX/SIMETH SUSP 30 ML UDCUP PO PRN (20:36)
[2018-04-20] MEDS ORDERED: ACETAMINOPHEN 325 MG TABLET PO PRN (20:36)
[2018-04-20] MEDS ORDERED: GLUCAGON,HUMAN RECOMB 1 MG INJ IM PRN (20:36)
[2018-04-20] MEDS ORDERED: DEXTROSE 50%-WATER 25 GM/50 ML DISP.SYRIN IV PRN ×2 (20:36)
[2018-04-20] MEDS ORDERED: IPRATROPIUM/ALBUTEROL 0.5-2.5 MG/3 ML AMPUL NEB PRN (20:36)
[2018-04-20] MEDS ORDERED: (PENDING PHARMACY ID) (Lisinopril [Zestril] 40 MG) PO SCH (20:45)
[2018-04-20] MEDS ORDERED: AMLODIPINE BESYLATE 5 MG TABLET PO SCH (20:45)
[2018-04-20] MEDS ORDERED: NORMAL SALINE 1000 ML 1,000 ML IV SCH (20:45)
[2018-04-20] MEDS: HYDRALAZINE HCL INJ/PF 20 MG/1 ML SDV IV PRN (21:00)
[2018-04-20] MEDS: METOPROLOL SUCCINATE 50 MG TAB.SR.24H PO SCH (21:19)
[2018-04-20] MEDS: HEPARIN SOD (PORCINE) 5,000 UNIT/ML 1 ML SYRINGE SUBCUT SCH (21:20)
[2018-04-20 21:27] LABS: URINE AMPHETAMINES SCREEN NEGATIVE; URINE BARBITURATES SCREEN NEGATIVE; URINE BENZODIAZEPINES SCREEN NEGATIVE; URINE COCAINE SCREEN NEGATIVE; URINE MARIJUANA (THC) SCREEN UNCONFIRMED POSITIVE; URINE METHADONE SCREEN NEGATIVE; URINE PHENCYCLIDINE SCREEN NEGATIVE
--- NOTE | 2018-04-20 22:37 | RADIOLOGY REPORT (SQ) ---
EXAM DESCRIPTION: US ABDOMEN LIMITED COMPLETED DATE/TME: 04/20/2018 19:36 CLINICAL HISTORY: 37 years, Female, pancreatitis, abdominal pain Findings: Pancreas is within normal limits. Aorta and IVC are within normal limits. Liver is within normal limits in size with no focal lesions. Portal vein is patent with hepatopedal flow. Gallbladder is unremarkable with no evidence for calculus, wall thickening or pericholecystic fluid. No sonographic Burr sign. No significant biliary dilatation with CBD measuring 6 mm. No right hydronephrosis. No right upper quadrant ascites. IMPRESSION: No evidence for cholelithiasis or cholecystitis. No acute pathology.
[2018-04-21] MEDS: INSULIN LISPRO 100 UNIT/ML 3 ML VIAL SUBCUT SCH ×4 (01:13→19:46)
[2018-04-21] MEDS: KETOROLAC TROMETHAMINE INJ/PF 30 MG/1 ML SDV IV PRN ×2 (03:47→10:13)
--- NOTE | 2018-04-21 05:51 | PDOC H&P ---
History of Present Illness Admission Date/PCP: 04/20/18 20:47 LYNNE OLMEDO Patient complains of: Abdominal pain History of Present Illness: JJ HOFFMAN is a 37 year old female with history of insulin-dependent diabetes, remote alcohol dependence, recurrent diabetic ketoacidosis and pancreatitis. She presents with 3 days of abdominal pain worsened by change of position or p.o. intake. One episode of nausea of gastric content and loose stools. In the emergency room she is found to have uncontrolled hyperglycemia without metabolic acidosis and a lipase of 3400. LFTs are unremarkable she received symptomatic management referred to the hospitalist for admission. Patient denies new medications, viral infection or alcohol. Past Medical History Cardiac Medical History: Reports: Hyperlipidema, Hypertension Pulmonary Medical History: Denies: Chronic Obstructive Pulmonary Disease (COPD) Neurological Medical History: Reports: Seizures Endocrine Medical History: Reports: Diabetes Mellitus Type 1, Diabetes Mellitus Type 2 Renal/ Medical History: Denies: End Stage Renal Disease GI Medical History: Reports: Cirrhosis Musculoskeltal Medical History: Denies: Arthritis Skin Medical History: Denies: Eczema, Psoriasis Psychiatric Medical History: Reports: Alcohol Dependency Denies: Dementia, Depression Hematology: Reports: Anemia Past Surgical History Past Surgical History: Reports: Section - x3, Hysterectomy Social History Information Source: Patient Lives with: Family Smoking Status: Former Smoker Frequency of Alcohol Use: None - Unclear Hx Recreational Drug Use: No Drugs: None Hx Prescription Drug Abuse: No - Advance Directive Resuscitation Status: Full Code Family History Family History: DM, Hypertension Parental Family History Reviewed: Yes Children Family History Reviewed: Yes Sibling(s) Family History Reviewed.: Yes Medication/Allergy Home Medications: Amlodipine Besylate [Norvasc 5 mg Tablet] 5 mg PO Q12 04/20/18 Insulin Aspart [Novolog Flexpen] 0 unit SUBCUT .SLD SCALE 04/20/18 Insulin Glargine,Hum.rec.anlog [Lantus Insulin Inj 300 Unit/3 ml Pen] 30 unit SUBCUT QHS 04/20/18 Lisinopril [Prinivil 40 mg Tablet] 40 mg PO BID 04/20/18 Metoprolol Succinate [Toprol Xl 50 mg Tab.sr] 50 mg PO DAILY 04/20/18 Allergies/Adverse Reactions: hydrocodone [From [place]] Allergy (Verified 04/05/18 15:58) morphine Allergy (Verified 04/05/18 15:58) Review of Systems Constitutional: ABSENT: chills, fever(s), headache(s), weight gain, weight loss Eyes: ABSENT: visual disturbances Ears: ABSENT: hearing changes Cardiovascular: ABSENT: chest pain, dyspnea on exertion, edema, orthropnea, palpitations Respiratory: ABSENT: cough, hemoptysis Gastrointestinal: ABSENT: abdominal pain, constipation, diarrhea, hematemesis, hematochezia, nausea, vomiting Genitourinary: ABSENT: dysuria, hematuria Musculoskeletal: ABSENT: joint swelling Integumentary: ABSENT: rash, wounds Neurological: ABSENT: abnormal gait, abnormal speech, confusion, dizziness, focal weakness, syncope Psychiatric: ABSENT: anxiety, depression, homidical ideation, suicidal ideation Endocrine: ABSENT: cold intolerance, heat intolerance, polydipsia, polyuria Hematologic/Lymphatic: ABSENT: easy bleeding, easy bruising Physical Exam Vital Signs: Temp Pulse Resp BP Pulse Ox 98.3 F 81 16 140/96 H 100 04/21/18 02:37 04/21/18 02:37 04/21/18 02:37 04/21/18 02:37 04/21/18 02:37 Intake & Output 04/19/18 04/20/18 04/21/18 11:59 11:59 11:59 Intake Total 2640 Balance 2640 Weight 59.2 kg General appearance: PRESENT: mild distress, thin, well-developed, well-nourished Head exam: PRESENT: atraumatic, normocephalic Eye exam: PRESENT: conjunctiva pink, EOMI, PERRLA. ABSENT: scleral icterus Ear exam: PRESENT: normal external ear exam Mouth exam: PRESENT: moist, tongue midline Neck exam: ABSENT: carotid bruit, JVD, lymphadenopathy, thyromegaly Respiratory exam: PRESENT: clear to auscultation teddy. ABSENT: rales, rhonchi, wheezes Cardiovascular exam: PRESENT: RRR. ABSENT: diastolic murmur, rubs, systolic murmur Pulses: PRESENT: normal dorsalis pedis pul Vascular exam: PRESENT: normal capillary refill GI/Abdominal exam: PRESENT: normal bowel sounds, soft, tenderness - Epigastric tenderness without guarding. ABSENT: distended, guarding, mass, organolmegaly, rebound Rectal exam: PRESENT: deferred Extremities exam: PRESENT: full ROM. ABSENT: calf tenderness, clubbing, pedal edema Neurological exam: PRESENT: alert, awake, oriented to person, oriented to place, oriented to time, oriented to situation, CN II-XII grossly intact. ABSENT: motor sensory deficit Psychiatric exam: PRESENT: appropriate affect, normal mood. ABSENT: homicidal ideation, suicidal ideation Skin exam: PRESENT: dry, intact, warm. ABSENT: cyanosis, rash Results Laboratory Results: 04/20/18 15:20 04/20/18 15:20 04/20/18 04/20/18 04/20/18 15:20 15:20 15:20 WBC 7.8 RBC 3.88 Hgb 11.2 L Hct 33.5 L MCV 86 MCH 28.8 MCHC 33.4 RDW 14.9 H Plt Count 362 Seg Neutrophils % 57.3 Lymphocytes % 30.6 Monocytes % 8.5 Eosinophils % 2.4 Basophils % 1.2 Absolute Neutrophils 4.4 Absolute Lymphocytes 2.4 Absolute Monocytes 0.7 Absolute Eosinophils 0.2 Absolute Basophils 0.1 VBG pH 7.34 VBG pCO2 56.5 VBG HCO3 29.7 VBG Base Excess 2.9 Sodium 137.3 Potassium 4.3 Chloride 103 Carbon Dioxide 25 Anion Gap 9 BUN 22 H Creatinine 1.36 H Est GFR ( Amer) 53 L Est GFR (Non-Af Amer) 44 L Glucose 414 H* Calcium 9.6 Total Bilirubin 0.4 AST 35 ALT 22 Alkaline Phosphatase 131 H Total Protein 6.4 Albumin 3.7 Lipase Urine Color Urine Appearance Urine pH Ur Specific [place] Urine Protein Urine Glucose (UA) Urine Ketones Urine Blood Urine Nitrite Ur Leukocyte Esterase Urine WBC (Auto) 04/20/18 04/20/18 15:20 16:45 WBC RBC Hgb Hct MCV MCH MCHC RDW Plt Count Seg Neutrophils % Lymphocytes % Monocytes % Eosinophils % Basophils % Absolute Neutrophils Absolute Lymphocytes Absolute Monocytes Absolute Eosinophils Absolute Basophils VBG pH VBG pCO2 VBG HCO3 VBG Base Excess Sodium Potassium Chloride Carbon Dioxide Anion Gap BUN Creatinine Est GFR ( Amer) Est GFR (Non-Af Amer) Glucose Calcium Total Bilirubin AST ALT Alkaline Phosphatase Total Protein Albumin Lipase 3449.9 H Urine Color STRAW Urine Appearance CLEAR Urine pH 6.0 Ur Specific [place] 1.013 Urine Protein 30 H Urine Glucose (UA) >=500 H Urine Ketones NEGATIVE Urine Blood MODERATE H Urine Nitrite NEGATIVE Ur Leukocyte Esterase NEGATIVE Urine WBC (Auto) 1 04/20/18 04/20/18 15:20 15:20 Creatine Kinase 227 H CK-MB (CK-2) 0.90 Troponin I < 0.012 Impressions: Abdomen Ultrasound 04/20/18 19:36 IMPRESSION: No evidence for cholelithiasis or cholecystitis. No acute pathology. Assessment & Plan - Diagnosis (1) Acute pancreatitis Qualifiers: Pancreatitis type: unspecified pancreatitis type Acute pancreatitis complication: unspecified Qualified Code(s): K85.90 - Acute pancreatitis without necrosis or infection, unspecified Is this a current diagnosis for this admission?: Yes Plan: Former alcoholic though currently denies, supportive care, bowel rest, symptomatic management, avoid narcotics given history of addiction. Follow-up chemistry and triglycerides. Advance diet as tolerated (2) Hyperglycemia Is this a current diagnosis for this admission?: Yes Plan: Half outpatient regiment of insulin with Humalog sliding scale every 6 hours while n.p.o. (3) RONIT (acute kidney injury) Is this a current diagnosis for this admission?: Yes Plan: IV fluid challenge, reevaluate chemistry - Time Time Spent: 50 to 70 Minutes - Inpatient Certification Medical Necessity: Need Close Monitoring Due to Risk of Patient Decompensation
[2018-04-21 06:37] LABS: ALANINE AMINOTRANSFERASE 25 U/L (9-52); ALBUMIN 3.2 g/dL (3.5-5.0); ALKALINE PHOSPHATASE 96 U/L (38-126); ANION GAP 5 (5-19); ASPARTATE AMINO TRANSFERASE 53 U/L (14-36); BILIRUBIN,DIRECT 0.3 mg/dL (0.0-0.4); BILIRUBIN,TOTAL 0.4 mg/dL (0.2-1.3); BLOOD UREA NITROGEN 14 mg/dL (7-20); CALCIUM 8.8 mg/dL (8.4-10.2); CARBON DIOXIDE 22 mmol/L (22-30); CHLORIDE 112 mmol/L (98-107); GLUCOSE 83 mg/dL (75-110); POTASSIUM 3.5 mmol/L (3.6-5.0); SODIUM 139.2 mmol/L (137-145); TOTAL PROTEIN 5.8 g/dL (6.3-8.2); TRIGLYCERIDES 104 mg/dL (<150)
[2018-04-21] MEDS: HEPARIN SOD (PORCINE) 5,000 UNIT/ML 1 ML SYRINGE SUBCUT SCH ×3 (07:41→21:18)
[2018-04-21] MEDS ORDERED: INSULIN GLARGINE,HUM.REC.ANLOG 300 UNIT/3 ML INSULN.PEN SUBCUT SCH (10:00)
[2018-04-21] MEDS ORDERED: LISINOPRIL 10 MG TABLET PO SCH (10:00)
[2018-04-21] MEDS: METOPROLOL SUCCINATE 50 MG TAB.SR.24H PO SCH ×2 (10:03→21:18)
[2018-04-21] MEDS: OXYCODONE HCL IR 5 MG TABLET PO PRN ×2 (13:12→22:16)
--- NOTE | 2018-04-21 15:57 | PDOC PROGRESS REPORT ---
Subjective Progress Note for:: 04/21/18 Subjective:: JJ HOFFMAN is a 37 year old female with history of insulin-dependent diabetes, remote alcohol dependence, recurrent diabetic ketoacidosis and pancreatitis who was admitted 04/21/2018 for acute pancreatitis and acute kidney injury. The patient was seen on morning rounds. She was found sitting up in bed breathing easily on room air. She does appear to be somewhat uncomfortable, but states that her abdominal pain is much improved. She currently rates it 3/5. She denies additional nausea or vomiting. She tolerated a clear liquid diet and oral medications without difficulty this morning; she is asking to advance her diet. Otherwise she denies fever, chills, headache, dizziness, chest pain, palpitations, dyspnea, orthopnea, diarrhea and consultation. She has no other questions or concerns at this time. No concerns per nursing Reason For Visit: ACUTE PANCREATITIS, DM Physical Exam Vital Signs: Temp Pulse Resp BP Pulse Ox 98.4 F 82 17 153/88 H 98 04/21/18 15:19 04/21/18 15:19 04/21/18 15:19 04/21/18 15:19 04/21/18 15:19 Intake & Output 04/20/18 04/21/18 04/22/18 06:59 06:59 06:59 Intake Total 2640 Balance 2640 Weight 59.2 kg General appearance: PRESENT: no acute distress, well-developed, well-nourished Head exam: PRESENT: atraumatic, normocephalic Eye exam: PRESENT: conjunctiva pink, EOMI, PERRLA. ABSENT: scleral icterus Mouth exam: PRESENT: moist Respiratory exam: PRESENT: clear to auscultation teddy, symmetrical, unlabored. ABSENT: rales, rhonchi, wheezes Cardiovascular exam: PRESENT: RRR Vascular exam: PRESENT: normal capillary refill GI/Abdominal exam: PRESENT: normal bowel sounds, soft, tenderness - Generalized; most intense in epigastric region. ABSENT: distended, guarding, mass, organolmegaly, rebound Extremities exam: PRESENT: full ROM Musculoskeletal exam: PRESENT: ambulatory Neurological exam: PRESENT: alert, awake, oriented to person, oriented to place, oriented to time, oriented to situation, CN II-XII grossly intact. ABSENT: motor sensory deficit Psychiatric exam: PRESENT: appropriate affect, normal mood. ABSENT: homicidal ideation, suicidal ideation Skin exam: PRESENT: dry, intact, warm. ABSENT: cyanosis, rash Results Laboratory Results: 04/20/18 15:20 04/21/18 04:57 04/20/18 04/20/18 04/20/18 15:20 15:20 16:45 Sodium 137.3 Potassium 4.3 Chloride 103 Carbon Dioxide 25 Anion Gap 9 BUN 22 H Creatinine 1.36 H Est GFR ( Amer) 53 L Est GFR (Non-Af Amer) 44 L Glucose 414 H* Calcium 9.6 Magnesium Total Bilirubin 0.4 AST 35 ALT 22 Alkaline Phosphatase 131 H Total Protein 6.4 Albumin 3.7 Triglycerides Lipase 3449.9 H Urine Color STRAW Urine Appearance CLEAR Urine pH 6.0 Ur Specific [place] 1.013 Urine Protein 30 H Urine Glucose (UA) >=500 H Urine Ketones NEGATIVE Urine Blood MODERATE H Urine Nitrite NEGATIVE Ur Leukocyte Esterase NEGATIVE Urine WBC (Auto) 1 04/21/18 04:57 Sodium 139.2 Potassium 3.5 L Chloride 112 H Carbon Dioxide 22 Anion Gap 5 BUN 14 Creatinine 1.03 Est GFR ( Amer) > 60 Est GFR (Non-Af Amer) > 60 Glucose 83 Calcium 8.8 Magnesium 1.8 Total Bilirubin 0.4 AST 53 H ALT 25 Alkaline Phosphatase 96 Total Protein 5.8 L Albumin 3.2 L Triglycerides 104 Lipase Urine Color Urine Appearance Urine pH Ur Specific [place] Urine Protein Urine Glucose (UA) Urine Ketones Urine Blood Urine Nitrite Ur Leukocyte Esterase Urine WBC (Auto) 04/20/18 16:45 Clean Catch Midstream Urine Culture - Final Mixed Urogenital [place] 04/20/18 04/20/18 15:20 15:20 Creatine Kinase 227 H CK-MB (CK-2) 0.90 Troponin I < 0.012 Impressions: Abdomen Ultrasound 04/20/18 19:36 IMPRESSION: No evidence for cholelithiasis or cholecystitis. No acute pathology. Assessment & Plan - Diagnosis (1) Acute pancreatitis Qualifiers: Pancreatitis type: unspecified pancreatitis type Acute pancreatitis complication: unspecified Qualified Code(s): K85.90 - Acute pancreatitis without necrosis or infection, unspecified Is this a current diagnosis for this admission?: Yes Plan: Patient reports 3 days of generalized abdominal discomfort, nausea and vomiting prior to presenting to the emergency department. She is found to have an elevated lipase to 3449. Abdominal ultrasound was negative for cholelithiasis or cholecystitis. She is admitted to the medical floor and continuous cardiac telemetry. She is provided clear liquid diet. She is provided generous IV fluids. Antiemetics and analgesics as needed. She is afebrile, normal WBC, and clinically improving; no indications for antibiotics or further imaging at this time. (2) RONIT (acute kidney injury) Is this a current diagnosis for this admission?: Yes Plan: Resolved. Patient was admitted with a creatinine of 1.36 -> 1.03 with IV fluids. Will avoid nephrotoxic medications. Continue monitor daily chemistries. (3) Hypertension Qualifiers: Hypertension type: essential hypertension Qualified Code(s): I10 - Essential (primary) hypertension Is this a current diagnosis for this admission?: Yes Plan: The patient's home dose lisinopril and metoprolol are continued. IV hydralazine as needed for blood pressure control. (4) Uncontrolled type 2 diabetes mellitus Qualifiers: Glycemic state: with hyperglycemia Qualified Code(s): E11.65 - Type 2 diabetes mellitus with hyperglycemia Is this a current diagnosis for this admission?: Yes Plan: The patient's last A1c (12/2017) was 10%. She is currently on a clear liquid diet. Accu-Cheks before meals and at bedtime with Humalog for sliding scale coverage. Continue Lantus; dose reduced today secondary to hypoglycemic event this morning. Hypoglycemia protocol in place. - Time Time Spent with patient: 15-24 minutes Medications reviewed and adjusted accordingly: Yes Anticipated discharge: Home Within: within 24 hours - Inpatient Certification Based on my medical assessment, after consideration of the patient's comorbidities, presenting symptoms, or acuity I expect that the services needed warrant INPATIENT care.: Yes I certify that my determination is in accordance with my understanding of Medicare's requirements for reasonable and necessary INPATIENT services [42 CFR 412.3e].: Yes Medical Necessity: Need Close Monitoring Due to Risk of Patient Decompensation, Need For IV Fluids, Risk of Diagnosis Which Will Require Inpatient Eval/Care/Monitoring
[2018-04-21] MEDS: NORMAL SALINE 1000 ML 1,000 ML IV PRN (22:16)
[2018-04-22] MEDS: HYDRALAZINE HCL INJ/PF 20 MG/1 ML SDV IV PRN (00:50)
[2018-04-22] MEDS: KETOROLAC TROMETHAMINE INJ/PF 30 MG/1 ML SDV IV PRN ×2 (00:50→09:33)
[2018-04-22] MEDS: INSULIN LISPRO 100 UNIT/ML 3 ML VIAL SUBCUT SCH ×3 (00:51→12:11)
[2018-04-22] MEDS: NORMAL SALINE 1000 ML 1,000 ML IV PRN (05:30)
[2018-04-22] MEDS: OXYCODONE HCL IR 5 MG TABLET PO PRN ×2 (05:31→12:14)
[2018-04-22] MEDS: HEPARIN SOD (PORCINE) 5,000 UNIT/ML 1 ML SYRINGE SUBCUT SCH ×2 (05:32→14:15)
[2018-04-22 05:48] LABS: HEMOGLOBIN 9.7 g/dL (12.0-15.5); MEAN CORPUSCULAR HEMOGLOBIN 28.2 pg (27.0-33.4); MEAN CORPUSCULAR HGB CONC 33.5 g/dL (32.0-36.0); MEAN CORPUSCULAR VOLUME 84 fl (80-97); RED BLOOD COUNT 3.45 10^6/uL (3.72-5.28); RED CELL DISTRIBUTION WIDTH 14.7 % (11.5-14.0); WHITE BLOOD COUNT 7.5 10^3/uL (4.0-10.5)
[2018-04-22 05:51] LABS: PLATELET COUNT 163 10^3/uL (150-450)
[2018-04-22 06:03] LABS: ALANINE AMINOTRANSFERASE 28 U/L (9-52); ALBUMIN 2.9 g/dL (3.5-5.0); ALKALINE PHOSPHATASE 89 U/L (38-126); ANION GAP 5 (5-19); ASPARTATE AMINO TRANSFERASE 27 U/L (14-36); BILIRUBIN,DIRECT 0.2 mg/dL (0.0-0.4); BILIRUBIN,TOTAL 0.2 mg/dL (0.2-1.3); BLOOD UREA NITROGEN 9 mg/dL (7-20); CALCIUM 9.1 mg/dL (8.4-10.2); CARBON DIOXIDE 24 mmol/L (22-30); CHLORIDE 109 mmol/L (98-107); GLUCOSE 127 mg/dL (75-110); LIPASE 710.2 U/L (23-300); POTASSIUM 3.2 mmol/L (3.6-5.0); SODIUM 138.1 mmol/L (137-145); TOTAL PROTEIN 5.3 g/dL (6.3-8.2)
[2018-04-22] MEDS: METOPROLOL SUCCINATE 50 MG TAB.SR.24H PO SCH (09:39)
[2018-04-22] MEDS ORDERED: LISINOPRIL 10 MG TABLET PO SCH (10:00)
[2018-04-22] MEDS ORDERED: INSULIN GLARGINE,HUM.REC.ANLOG 300 UNIT/3 ML INSULN.PEN SUBCUT SCH (10:00)
[2018-04-22] MEDS ORDERED: AMLODIPINE BESYLATE 5 MG TABLET PO SCH (10:00)
[2018-04-22 14:05] VITALS: BP 124/73
--- NOTE | 2018-04-23 17:20 | PDOC DISCHARGE SUMMARY ---
General - Admit/Disc Date/PCP Admission Date/Primary Care Provider: 04/20/18 20:47 RONALD BARKER, [facility] Discharge Date: 04/22/18 - Discharge Diagnosis (1) Acute pancreatitis Is this a current diagnosis for this admission?: Yes Summary: Patient reported 3 days of generalized abdominal discomfort, nausea and vomiting prior to presenting to the emergency department. Lipase to 3449 -> 710 Abdominal ultrasound was negative for cholelithiasis or cholecystitis. She was admitted to the medical floor on continuous cardiac telemetry. She is provided clear liquid diet and generous IV fluids with antiemetics and analgesics as needed. Her lipase trended downward and her symptoms rapidly resolved. She was advanced to a consistent carb diet, which she tolerated well, prior to discharge. At time of discharge, the patient was in stable condition, afebrile, and asymptomatic. Was instructed to follow-up with her primary care provider within 1 week. She was advised to drink plenty of water, eat as tolerated but to avoid fatty foods. She was encouraged to resume a consistent carb diet for management of her diabetes mellitus. She was instructed to take her insulin as directed. She was advised of the importance of avoiding all alcohol. She was encouraged to return to the emergency department as needed for any concerning symptoms. (2) RONIT (acute kidney injury) Is this a current diagnosis for this admission?: Yes Summary: Resolved; secondary to dehydration. Patient was admitted with a creatinine of 1.36 -> 1.01 with IV fluids. (3) Hypertension Is this a current diagnosis for this admission?: Yes Summary: Normotensive on patient's home medication regiment of lisinopril and metoprolol. (4) Uncontrolled type 2 diabetes mellitus Is this a current diagnosis for this admission?: Yes Summary: The patient's last A1c (12/2017) was 10%. The patient complains of frequent hypoglycemic episodes that have prompted her to skip insulin doses. She did have a one episode of fasting glucose 47. Her home dose Lantus was decreased from 30 units to 10 units daily. Was educated on checking her glucose before meals and at bedtime. She was instructed to increase her Lantus dose by 2 units every third day if her fasting glucose remains greater than 200. She was able to teach this back to me. She is instructed to keep a log of her glucose and take this with to her follow-up appointment with her PCP next week. - Additional Information Resuscitation Status: Full Code Discharge Diet: As Tolerated, Diabetic Discharge Activity: Activity As Tolerated, Balance Activity w/Rest Prescriptions: Insulin Glargine,Hum.rec.anlog [Lantus Insulin 100 Unit/mL] 10 unit SUBCUT DAILY #1 insuln.pen Ondansetron [Zofran Odt 4 mg Tablet] 1 - 2 tab PO Q4HP PRN #10 tab.rapdis PRN Reason: Oxycodone HCl [Oxy-Ir 5 mg Tablet] 5 mg PO Q6HP PRN #12 tablet PRN Reason: Promethazine HCl [Phenergan 25 mg Tablet] 12.2 - 25 mg PO ASDIR PRN #12 tablet PRN Reason: Home Medications: Amlodipine Besylate [Norvasc 5 mg Tablet] 5 mg PO Q12 04/20/18 Insulin Aspart [Novolog Flexpen] 0 unit SUBCUT .SLD SCALE 04/20/18 Lisinopril [Prinivil 40 mg Tablet] 40 mg PO BID 04/20/18 Metoprolol Succinate [Toprol Xl 50 mg Tab.sr] 50 mg PO DAILY 04/20/18 Acetaminophen [Tylenol 325 mg Tablet] 650 mg PO Q4HP PRN tablet 04/22/18 Insulin Glargine,Hum.rec.anlog [Lantus Insulin 100 Unit/mL] 10 unit SUBCUT DAILY #1 insuln.pen 04/22/18 Metoprolol Succinate [Toprol Xl 50 mg Tab.sr] 50 mg PO Q12 tab.sr.24h 04/22/18 Ondansetron [Zofran Odt 4 mg Tablet] 1 - 2 tab PO Q4HP PRN #10 tab.rapdis 04/22/18 Oxycodone HCl [Oxy-Ir 5 mg Tablet] 5 mg PO Q6HP PRN #12 tablet 04/22/18 Promethazine HCl [Phenergan 25 mg Tablet] 12.2 - 25 mg PO ASDIR PRN #12 tablet 04/22/18 History of Present Illness History of Present Illness: H&P by Dr. Frankel: JJ HOFFMAN is a 37 year old female with history of insulin-dependent diabetes, remote alcohol dependence, recurrent diabetic ketoacidosis and pancreatitis. She presents with 3 days of abdominal pain worsened by change of position or p.o. intake. One episode of nausea of gastric content and loose stools. In the emergency room she is found to have uncontrolled hyperglycemia without metabolic acidosis and a lipase of 3400. LFTs are unremarkable she received symptomatic management referred to the hospitalist for admission. Patient denies new medications, viral infection or alcohol. Physical Exam Vital Signs: Temp Pulse Resp BP Pulse Ox 98.6 F 83 12 124/73 100 04/22/18 13:55 04/22/18 13:55 04/22/18 13:55 04/22/18 13:55 04/22/18 13:55 Intake & Output 04/22/18 04/23/18 04/24/18 06:59 06:59 06:59 Intake Total 2800 1000 Balance 2800 1000 Weight 62.3 kg General appearance: PRESENT: no acute distress, well-developed, well-nourished Head exam: PRESENT: atraumatic, normocephalic Eye exam: PRESENT: conjunctiva pink, EOMI, PERRLA. ABSENT: scleral icterus Ear exam: PRESENT: normal external ear exam Mouth exam: PRESENT: moist, tongue midline Neck exam: ABSENT: carotid bruit, JVD, lymphadenopathy, thyromegaly Respiratory exam: PRESENT: clear to auscultation teddy. ABSENT: rales, rhonchi, wheezes Cardiovascular exam: PRESENT: RRR. ABSENT: diastolic murmur, rubs, systolic murmur Pulses: PRESENT: normal dorsalis pedis pul Vascular exam: PRESENT: normal capillary refill GI/Abdominal exam: PRESENT: normal bowel sounds, soft. ABSENT: distended, guarding, mass, organolmegaly, rebound, tenderness Rectal exam: PRESENT: deferred Extremities exam: PRESENT: full ROM. ABSENT: calf tenderness, clubbing, pedal edema Neurological exam: PRESENT: alert, awake, oriented to person, oriented to place, oriented to time, oriented to situation, CN II-XII grossly intact. ABSENT: motor sensory deficit Psychiatric exam: PRESENT: appropriate affect, normal mood. ABSENT: homicidal ideation, suicidal ideation Skin exam: PRESENT: dry, intact, warm. ABSENT: cyanosis, rash Results Laboratory Results: 04/22/18 05:20 04/22/18 05:20 04/20/18 04/20/18 15:20 15:20 Creatine Kinase 227 H CK-MB (CK-2) 0.90 Troponin I < 0.012 Impressions: Abdomen Ultrasound 04/20/18 19:36 IMPRESSION: No evidence for cholelithiasis or cholecystitis. No acute pathology. Qualifiers - * PATIENT BEING DISCHARGED WITH ANY OF THE FOLLOWING DIAGNOSIS: No Plan Discharge Plan: Follow-up with primary care provider within 1 week. Drink plenty of water. Keep blood sugars well controlled. Avoid fatty foods, do not drink alcohol. Return to emergency department as needed for concerning symptoms. Time Spent: Less than 30 Minutes
== END 2018-04-22 14:45 | disposition home or self-care (01) | DRG 439 ==
LOC: ER 15:12 → OBSVTOIN 20:47 → EH 20:47 → 5 04-21 02:34
PROVIDERS: ADMIT Internal Medicine; ATTEND Internal Medicine
PROC: 3E0F73Z Introduction of Anti-inflammatory into Respiratory Tract, Via Natural or Artificial Opening (ICD-10-PCS; principal; 2018-04-20)
DX: K85.90 Acute pancreatitis without necrosis or infection, unspecified (principal); N17.9 Acute kidney failure, unspecified; E86.0 Dehydration; I10 Essential (primary) hypertension; F10.21 Alcohol dependence, in remission; E11.65 Type 2 diabetes mellitus with hyperglycemia; D64.9 Anemia, unspecified; G40.909 Epilepsy, unspecified, not intractable, without status epilepticus; E78.5 Hyperlipidemia, unspecified; Z88.6 Allergy status to analgesic agent; Z79.899 Other long term (current) drug therapy; Z79.891 Long term (current) use of opiate analgesic; Z79.4 Long term (current) use of insulin; Z90.710 Acquired absence of both cervix and uterus; Z87.891 Personal history of nicotine dependence; Z83.3 Family history of diabetes mellitus; Z82.49 Family history of ischemic heart disease and other diseases of the circulatory system
CPT/HCPCS: 36415; 76705; 80053; 80307; 81001; 82550; 82553; 82803; 82962; 83690; 83735; 84478; 84484; 85025; 85027; 87040; 87086; 93005; 93010; 96361; 96374; 99285; J0360; J1170; J1644; J1815; J1885; J3490; J7030

== ENCOUNTER 2018-04-28 07:05 | Emergency (ER) | payer MEDICAID ==
[2018-04-28] MEDS ORDERED: ONDANSETRON HCL INJ/PF 4 MG/2 ML SDV IV ONE ×2 (07:13→11:29)
[2018-04-28] MEDS ORDERED: HYDROMORPHONE HCL INJ/PF 2 MG/ML AMPULE IV ONE (07:13)
--- NOTE | 2018-04-28 07:19 | ER Document Report ---
ED General - General Chief Complaint: Nausea/Vomiting/Diarrhea Stated Complaint: ABDOMINAL PAIN Time Seen by Provider: 04/28/18 07:08 Primary Care Provider: RONALD BARKER FNP-C [Primary Care Provider] - Follow up as needed TRAVEL OUTSIDE OF THE [place] IN LAST 30 DAYS: No - HPI Notes: Patient is a 37-year-old female with diabetes and hypertension that presents to the emergency department for chief complaint of epigastric abdominal pain. Patient had recent admission to the hospital for pancreatitis. She states for the last 3 days she has had increasing epigastric abdominal pain. The pain is sharp and nonradiating. She states she is unable to keep any medications down and has had multiple episodes of emesis daily. She denies associated diarrhea. She states her blood sugar at home around 5 this morning was 150. She has been compliant with her home insulin but has had a hard time with her oral metformin. Patient denies any fevers but does report feeling cold frequently. She denies urinary symptoms. She states that she has been taking the medicine she was pres cribed for pain with no improvement. She states this feels like her prior episodes of pancreatitis. Past Medical History: Diabetes, hypertension Past Surgical History: Reviewed in chart Social History: History of alcoholism, denies current drug use Family History: Reviewed and noncontributory for presenting illness Allergies: Reviewed, see documented allergy list. REVIEW OF SYSTEMS: CONSTITUTIONAL : No fever No chills No diaphoresis No recent illness EENT: No vision changes No congestion No sore throat CARDIOVASCULAR: No chest pain No palpitations RESPIRATORY: No shortness of breath No cough No difficulty breathing GASTROINTESTINAL: abdominal pain nausea vomiting No diarrhea GENITOURINARY: No dysuria No hematuria No difficulty urinating MUSCULOSKELETAL: No back pain No leg pain No arm pain SKIN: No rashes No lesions LYMPHATIC: No swollen, enlarged glands. NEUROLOGICAL: No lightheadedness No headache No weakness No paresthesias PSYCHIATRIC: No anxiety No depression PHYSICAL EXAMINATION: Vital signs reviewed, nursing noted reviewed. GENERAL: Well-appearing, well-nourished and in mild acute distress. HEAD: Atraumatic, normocephalic. EYES: Eyes appear normal, extraocular movements intact, sclera anicteric, conjunctiva are normal. ENT: nares patent, oropharynx clear without exudates. Moist mucous membranes. NECK: Normal range of motion, supple without lymphadenopathy LUNGS: Breath sounds clear to auscultation bilaterally and equal. No wheezes rales or rhonchi. HEART: Regular rate and rhythm without murmurs ABDOMEN: Soft, epigastric tenderness, normoactive bowel sounds. No rebound, guarding, or rigidity. No masses appreciated. EXTREMITIES: Nontender, good range of motion, no pitting or edema. NEUROLOGICAL: No focal neurological deficits. Moves all extremities spontaneously Motor and sensory grossly intact on exam. PSYCH: Tearful, anxious. SKIN: Warm, Dry, normal turgor, no rashes or lesions noted on exposed skin - Related Data Allergies/Adverse Reactions: hydrocodone [From [place]] Allergy (Verified 04/05/18 15:58) morphine Allergy (Verified 04/05/18 15:58) Past Medical History - Social History Smoking Status: Unknown if Ever Smoked Family History: DM, Hypertension - Past Medical History Cardiac Medical History: Reports: Hx Hypercholesterolemia, Hx Hypertension Pulmonary Medical History: Denies: Hx COPD Neurological Medical History: Reports: Hx Seizures Endocrine Medical History: Reports: Hx Diabetes Mellitus Type 1, Hx Diabetes Mellitus Type 2 Renal/ Medical History: Denies: Hx End Stage Renal Disease, Hx Peritoneal Dialysis GI Medical History: Reports: Hx Cirrhosis, Hx Pancreatitis Musculoskeletal Medical History: Denies Hx Arthritis Skin Medical History: Denies Hx Eczema, Denies Hx Psoriasis Psychiatric Medical History: Denies: Hx Dementia, Hx Depression Past Surgical History: Reports: Hx Section - x3, Hx Hysterectomy Physical Exam - Vital signs Vitals: Temp Pulse Resp BP Pulse Ox 97.6 F 97 16 187/104 H 99 04/28/18 10:19 04/28/18 10:19 04/28/18 10:19 04/28/18 10:19 04/28/18 10:19 Course - Re-evaluation Re-evalutation: 04/28/18 11:27 Vitals reviewed. Nursing notes reviewed. After 1 dose of IV Dilaudid patient's pain was controlled for about 4 hours. Her blood work hemolyzed and lab has tried multiple times to redraw her CMP which is delaying patient's care. I placed a peripheral IV with ultrasound guidance and obtained CMP. Patient's pain has started to return and she was given a dose of oral Tylenol. She has tolerated p.o. ice chips. Her CT scan is unchanged from prior. CBC is unremarkable. Currently awaiting CMP and lipase results. 04/28/18 13:10 Patient's lipase is normal. She is still complaining of some mild epigastric pain but does appear to be improved. Her abdomen is mildly tender in the epigastric region still. She will be given a dose of oxycodone. Patient still has prescriptions for Zofran and Phenergan at home. She was advised to follow with Dr. cjea upon discharge from the hospital but has not arranged this follow-up yet. I did encourage her to schedule an appointment with her PCP for close outpatient follow-up. She was counseled on return precautions. Patient is tolerating oral intake of her medications as well as water and is Laboratory 04/28/18 04/28/18 04/28/18 08:22 08:22 08:22 WBC 7.1 RBC 4.03 Hgb 11.6 L Hct 34.4 L MCV 85 MCH 28.7 MCHC 33.6 RDW 15.3 H Plt Count 331 Seg Neutrophils % 81.2 H Lymphocytes % 14.5 Monocytes % 3.1 Eosinophils % 0.7 Basophils % 0.5 Absolute Neutrophils 5.8 Absolute Lymphocytes 1.0 Absolute Monocytes 0.2 Absolute Eosinophils 0.1 Absolute Basophils 0.0 VBG pH 7.37 VBG pCO2 53.2 VBG HCO3 29.8 VBG Base Excess 3.4 Sodium Cancelled Potassium Cancelled Chloride Cancelled Carbon Dioxide Cancelled Anion Gap Cancelled BUN Cancelled Creatinine Cancelled Est GFR ( Amer) Cancelled Est GFR (Non-Af Amer) Cancelled Glucose Cancelled Calcium Cancelled Total Bilirubin Cancelled Direct Bilirubin Cancelled Neonat Total Bilirubin Cancelled Neonat Direct Bilirubin Cancelled Neonat Indirect Bili Cancelled AST Cancelled ALT Cancelled Alkaline Phosphatase Cancelled Total Protein Cancelled Albumin Cancelled Lipase Cancelled Urine Color Urine Appearance Urine pH Ur Specific [place] Urine Protein Urine Glucose (UA) Urine Ketones Urine Blood Urine Nitrite Urine Bilirubin Urine Urobilinogen Ur Leukocyte Esterase Urine WBC (Auto) Urine Bacteria (Auto) Squamous Epi Cells Auto Urine Mucus (Auto) Urine Ascorbic Acid 04/28/18 04/28/18 11:01 11:28 WBC RBC Hgb Hct MCV MCH MCHC RDW Plt Count Seg Neutrophils % Lymphocytes % Monocytes % Eosinophils % Basophils % Absolute Neutrophils Absolute Lymphocytes Absolute Monocytes Absolute Eosinophils Absolute Basophils VBG pH VBG pCO2 VBG HCO3 VBG Base Excess Sodium 136.7 L Potassium 3.7 Chloride 99 Carbon Dioxide 28 Anion Gap 10 BUN 19 Creatinine 1.14 Est GFR ( Amer) > 60 Est GFR (Non-Af Amer) 54 L Glucose 332 H Calcium 9.5 Total Bilirubin 0.7 Direct Bilirubin 0.4 Neonat Total Bilirubin Not Reportable Neonat Direct Bilirubin Not Reportable Neonat Indirect Bili Not Reportable AST 30 ALT 25 Alkaline Phosphatase 131 H Total Protein 7.9 Albumin 4.3 Lipase 82.8 Urine Color YELLOW Urine Appearance CLOUDY Urine pH 6.0 Ur Specific [place] 1.020 Urine Protein 100 H Urine Glucose (UA) >=500 H Urine Ketones NEGATIVE Urine Blood NEGATIVE Urine Nitrite NEGATIVE Urine Bilirubin NEGATIVE Urine Urobilinogen NEGATIVE Ur Leukocyte Esterase NEGATIVE Urine WBC (Auto) 2 Urine Bacteria (Auto) TRACE Squamous Epi Cells Auto 11 Urine Mucus (Auto) RARE Urine Ascorbic Acid NEGATIVE Abdomen/Pelvis CT 04/28/18 07:16 IMPRESSION: Redemonstrated stigmata of chronic pancreatitis. No acute CT findings of the abdomen or pelvis to explain epigastric abdominal pain. Correlate with biochemical findings. stable at discharge. - Vital Signs Vital signs: Temp Pulse Resp BP Pulse Ox 97.6 F 97 13 194/114 H 98 04/28/18 10:19 04/28/18 10:19 04/28/18 12:58 04/28/18 12:58 04/28/18 12:57 - Laboratory Result Diagrams: 04/28/18 08:22 04/28/18 11:28 Laboratory results interpreted by me: 04/28/18 04/28/18 04/28/18 08:22 11:01 11:28 Hgb 11.6 L Hct 34.4 L RDW 15.3 H Seg Neutrophils % 81.2 H Sodium 136.7 L Est GFR (Non-Af Amer) 54 L Glucose 332 H Alkaline Phosphatase 131 H Urine Protein 100 H Urine Glucose (UA) >=500 H Procedures - Additional Procedures IV insertion Time performed: 11:26 Notes: 04/28/18 11:26 Ultrasound-guided IV placed in right upper extremity just proximal to AC. Linear probe used for visualization. A 20-gauge IV catheter placed. One attempt. No complications. Patient tolerated well. Secured in place with tape. Discharge - Discharge Clinical Impression: Abdominal pain Qualifiers: Abdominal location: epigastric Qualified Code(s): R10.13 - Epigastric pain Condition: Stable Disposition: HOME, SELF-CARE Instructions: Abdominal Pain ([facility]) Additional Instructions: Please return to the emergency department if you have any worsening, or concern of your symptoms. Please return to the emergency department if you develop chest pain, difficulty breathing, severe abdominal pain, or ongoing vomiting. Please follow-up with your primary care physician in 2-3 days and any other recommended physicians. If prescribed, take all medications as directed. If you have any questions or concerns do not hesitate to return the emergency department for evaluation. Referrals: RONALD BARKER, ROSIO-C [Primary Care Provider] - Follow up in 3-5 days
[2018-04-28] MEDS: NORMAL SALINE 1000 ML 1,000 ML IV PRN ×2 (08:30→11:53)
[2018-04-28 08:34] LABS: VENOUS BLOOD BASE EXCESS 3.4 mmol/L; VENOUS BLOOD HCO3 29.8 mmol/L (20-32); VENOUS BLOOD PCO2 53.2 mmHg (35-63); VENOUS BLOOD PH 7.37 (7.30-7.42)
[2018-04-28 08:35] LABS: ABSOLUTE EOSINOPHILS # (AUTO) 0.1 10^3/uL (0.0-0.6); ABSOLUTE MONOCYTES (AUTO) 0.2 10^3/uL (0.1-1.4); ABSOLUTE NEUT (AUTO) 5.8 10^3/uL (1.7-8.2); BASOPHILS % (AUTO) 0.5 % (0-2); EOSINOPHILS % (AUTO) 0.7 % (0-6); HEMATOCRIT 34.4 % (36.0-47.0); HEMOGLOBIN 11.6 g/dL (12.0-15.5); LYMPHOCYTES % (AUTO) 14.5 % (13-45); MEAN CORPUSCULAR HEMOGLOBIN 28.7 pg (27.0-33.4); MEAN CORPUSCULAR HGB CONC 33.6 g/dL (32.0-36.0); MEAN CORPUSCULAR VOLUME 85 fl (80-97); MONOCYTES % (AUTO) 3.1 % (3-13); PLATELET COUNT 331 10^3/uL (150-450); RED BLOOD COUNT 4.03 10^6/uL (3.72-5.28); RED CELL DISTRIBUTION WIDTH 15.3 % (11.5-14.0); SEGMENTED NEUTROPHILS % (AUTO) 81.2 % (42-78); TOTAL CELLS COUNTED % (AUTO) 100 %; WHITE BLOOD COUNT 7.1 10^3/uL (4.0-10.5)
--- NOTE | 2018-04-28 09:07 | RADIOLOGY REPORT (SQ) ---
EXAM DESCRIPTION: CT ABD/PELVIS WITH IV ONLY COMPLETED DATE/TIME: 04/28/2018 8:59 am REASON FOR STUDY: epigastric abdominal pain COMPARISON: 12/09/2017 TECHNIQUE: CT scan of the abdomen and pelvis performed using helical scanning technique with dynamic intravenous contrast injection. No oral contrast. Images reviewed with lung, soft tissue, and bone windows. Reconstructed coronal and sagittal MPR images reviewed. Delayed images for evaluation of the urinary system also acquired. All images stored on PACS. All CT scanners at this facility use dose modulation, iterative reconstruction, and/or weight based d osing when appropriate to reduce radiation dose to as low as reasonably achievable (ALARA). [facility]: Dose Right [facility]: CareDose [facility]: Dose Right [facility]: Teradose 4D [facility]: TV Compass CONTRAST TYPE AND DOSE: contrast/concentration: Isovue 350.00 mg/ml; Total Contrast Delivered: 78.0 ml; Total Saline Delivered: 67.0 ml RENAL FUNCTION: None required. The patient is less than 50 years old. RADIATION DOSE: CT Rad equipment meets quality standard of care and radiation dose reduction techniq ues were employed. CTDIvol: NaN - NaN mGy. DLP: 0 mGy-cm.. LIMITATIONS: None. FINDINGS: LOWER CHEST: No significant findings. No nodules or infiltrates. LIVER: Normal size. No masses. No dilated ducts. SPLEEN: Normal size. No focal lesions. PANCREAS: There is mild parenchymal atrophy of the pancreas with prominence of the pancreatic duct an d calcifications of the pancreatic head. No adjacent inflammation or peripancreatic fluid collection s. GALLBLADDER: No identified stones by CT criteria. No inflammatory changes to suggest cholecystitis. ADRENAL GLANDS: No significant masses or asymmetry. RIGHT KIDNEY AND URETER: No solid masses. No significant calcifications. No hydronephrosis or hyd roureter. LEFT KIDNEY AND URETER: No solid masses. No significant calcifications. No hydronephrosis or hydr oureter. AORTA AND VESSELS: No aneurysm. No dissection. Renal arteries, SMA, celiac without stenosis. RETROPERITONEUM: No retroperitoneal adenopathy, hemorrhage or masses. BOWEL AND PERITONEAL CAVITY: No masses or inflammatory changes. No free fluid or peritoneal masses. APPENDIX: Normal. PELVIS: No mass. No free fluid. Normal bladder. ABDOMINAL WALL: No masses. No hernias. BONES: No significant or acute findings. OTHER: No other significant finding. IMPRESSION: Redemonstrated stigmata of chronic pancreatitis. No acute CT findings of the abdomen or pelvis to explain epigastric abdominal pain. Correlate with biochemical findings. TECHNICAL DOCUMENTATION: JOB ID: [id number] Quality ID # [id number]: Final reports with documentation of one or more dose reduction techniques (e.g., Au tomated exposure control, adjustment of the mA and/or kV according to patient size, use of iterative reconstruction technique) 2010 [employer]- All Rights Reserved Reading location - IP/workstation name: [email or web address]
[2018-04-28] MEDS ORDERED: ACETAMINOPHEN 325 MG TABLET PO ONE (11:26)
[2018-04-28] MEDS ORDERED: METOPROLOL SUCCINATE 50 MG TAB.SR.24H PO ONE (11:29)
[2018-04-28] MEDS ORDERED: ONDANSETRON HCL INJ/PF 4 MG/2 ML SDV ONE (11:43)
[2018-04-28 11:59] LABS: ALANINE AMINOTRANSFERASE 25 U/L (9-52); ALBUMIN 4.3 g/dL (3.5-5.0); ALKALINE PHOSPHATASE 131 U/L (38-126); ANION GAP 10 (5-19); ASPARTATE AMINO TRANSFERASE 30 U/L (14-36); BILIRUBIN,DIRECT 0.4 mg/dL (0.0-0.4); BILIRUBIN,TOTAL 0.7 mg/dL (0.2-1.3); BLOOD UREA NITROGEN 19 mg/dL (7-20); CALCIUM 9.5 mg/dL (8.4-10.2); CARBON DIOXIDE 28 mmol/L (22-30); CHLORIDE 99 mmol/L (98-107); GLUCOSE 332 mg/dL (75-110); LIPASE 82.8 U/L (23-300); POTASSIUM 3.7 mmol/L (3.6-5.0); SODIUM 136.7 mmol/L (137-145); TOTAL PROTEIN 7.9 g/dL (6.3-8.2)
[2018-04-28 12:04] LABS: APPEARANCE,URINE CLOUDY; BILIRUBIN,URINE NEGATIVE (NEGATIVE); COLOR,URINE YELLOW; GLUCOSE, URINE >=500 mg/dL (NEGATIVE); KETONES,URINE NEGATIVE (NEGATIVE); LEUKOCYTE ESTERASE,URINE NEGATIVE (NEGATIVE); NITRITE,URINE NEGATIVE (NEGATIVE); PROTEIN,URINE 100 mg/dL (NEGATIVE); UROBILINOGEN,URINE NEGATIVE mg/dL (<2.0)
[2018-04-28] MEDS ORDERED: OXYCODONE HCL IR 5 MG TABLET PO ONE (12:54)
[2018-04-28 13:26] VITALS: BP 188/111
== END 2018-04-28 13:22 | disposition home or self-care (01) ==
LOC: ER 07:05
DX: R10.13 Epigastric pain (principal); R11.2 Nausea with vomiting, unspecified; R19.7 Diarrhea, unspecified; I10 Essential (primary) hypertension; E11.9 Type 2 diabetes mellitus without complications; E78.00 Pure hypercholesterolemia, unspecified; Z88.6 Allergy status to analgesic agent
CPT/HCPCS: 96376; 99284; 96361; 96374; 96375; 36415; 83690; 85025; 80053; 81001; 82803; 74177; J3490 ×3; J1170; J2405; J7030

== ENCOUNTER 2018-05-05 09:46 | Inpatient (IN) | payer MEDICAID ==
[2018-05-05] MEDS ORDERED: KETOROLAC TROMETHAMINE INJ/PF 30 MG/1 ML SDV IV ONE (10:25)
--- NOTE | 2018-05-05 10:27 | ER Document Report ---
ED Medical Screen (RME) - General Chief Complaint: Abdominal Pain Stated Complaint: ABDOMINAL PAIN Time Seen by Provider: 05/05/18 10:24 Primary Care Provider: RONALD BARKER FNP-C [Primary Care Provider] - Follow up as needed Mode of Arrival: Wheelchair Information source: Patient TRAVEL OUTSIDE OF THE [place] IN LAST 30 DAYS: No - HPI Patient complains to provider of: abd pain Onset: Yesterday - pt. with h/o pancreatitis with onset of abdominal pain last pm. Denies N/V/D - Related Data Allergies/Adverse Reactions: hydrocodone [From [place]] Allergy (Verified 04/05/18 15:58) morphine Allergy (Verified 04/05/18 15:58) Past Medical History - Past Medical History Cardiac Medical History: Reports: Hx Hypercholesterolemia, Hx Hypertension Pulmonary Medical History: Denies: Hx COPD Neurological Medical History: Reports: Hx Seizures Endocrine Medical History: Reports: Hx Diabetes Mellitus Type 1, Hx Diabetes M ellitus Type 2 Renal/ Medical History: Denies: Hx End Stage Renal Disease, Hx Peritoneal Dialysis GI Medical History: Reports: Hx Cirrhosis, Hx Pancreatitis Musculoskeltal Medical History: Denies Hx Arthritis Skin Medical History: Denies Hx Eczema, Denies Hx Psoriasis Psychiatric Medical History: Denies: Hx Dementia, Hx Depression Past Surgical History: Reports: Hx Section - x3, Hx Hysterectomy - Immunizations History of Influenza Vaccine for 11/2016 - 04/2017 Season: No Physical Exam - Vital signs Vitals: Temp Pulse Resp BP Pulse Ox 98.6 F 102 H 20 149/100 H 99 05/05/18 09:52 05/05/18 09:52 05/05/18 09:52 05/05/18 09:52 05/05/18 09:52 Course - Vital Signs Vital signs: Temp Pulse Resp BP Pulse Ox 98.6 F 102 H 20 149/100 H 99 05/05/18 09:52 05/05/18 09:52 05/05/18 09:52 05/05/18 09:52 05/05/18 09:52 Doctor's Discharge - Discharge Referrals: RONALD BARKER FNP-C [Primary Care Provider] - Follow up as needed
[2018-05-05] MEDS ORDERED: HYDROMORPHONE HCL INJ/PF 2 MG/ML AMPULE IV ONE ×2 (11:35→15:05)
[2018-05-05] MEDS ORDERED: ONDANSETRON HCL INJ/PF 4 MG/2 ML SDV IV ONE (11:35)
[2018-05-05] MEDS ORDERED: NORMAL SALINE 1000 ML 1,000 ML IV ONE (12:02)
[2018-05-05 12:26] LABS: ABSOLUTE BASOPHILS # (AUTO) 0.1 10^3/uL (0.0-0.2); ABSOLUTE EOSINOPHILS # (AUTO) 0.1 10^3/uL (0.0-0.6); ABSOLUTE LYMPHOCYTES (AUTO) 2.5 10^3/uL (0.5-4.7); ABSOLUTE MONOCYTES (AUTO) 0.4 10^3/uL (0.1-1.4); ABSOLUTE NEUT (AUTO) 3.9 10^3/uL (1.7-8.2); BASOPHILS % (AUTO) 0.8 % (0-2); EOSINOPHILS % (AUTO) 1.8 % (0-6); HEMATOCRIT 34.4 % (36.0-47.0); HEMOGLOBIN 11.6 g/dL (12.0-15.5); LYMPHOCYTES % (AUTO) 36.2 % (13-45); MEAN CORPUSCULAR HEMOGLOBIN 28.9 pg (27.0-33.4); MEAN CORPUSCULAR HGB CONC 33.8 g/dL (32.0-36.0); MEAN CORPUSCULAR VOLUME 86 fl (80-97); MONOCYTES % (AUTO) 5.7 % (3-13); RED BLOOD COUNT 4.02 10^6/uL (3.72-5.28); RED CELL DISTRIBUTION WIDTH 14.9 % (11.5-14.0); SEGMENTED NEUTROPHILS % (AUTO) 55.5 % (42-78); TOTAL CELLS COUNTED % (AUTO) 100 %
[2018-05-05 12:29] LABS: VENOUS BLOOD BASE EXCESS 2.7 mmol/L; VENOUS BLOOD HCO3 28.8 mmol/L (20-32); VENOUS BLOOD PCO2 51.3 mmHg (35-63); VENOUS BLOOD PH 7.37 (7.30-7.42)
[2018-05-05 13:02] LABS: PLATELET COUNT 261 10^3/uL (150-450)
--- NOTE | 2018-05-05 13:55 | RADIOLOGY REPORT (SQ) ---
EXAM DESCRIPTION: U/S ABDOMEN LIMITED W/O DOP COMPLETED DATE/TIME: 05/05/2018 1:12 pm REASON FOR STUDY: upper abd pain, n/v COMPARISON: Ultrasound 04/20/2018 CT 04/28/2018 TECHNIQUE: Dynamic and static grayscale images acquired of the abdomen and recorded on PACS. Additio nal selected color Doppler and spectral images recorded. LIMITATIONS: None. FINDINGS: PANCREAS: No masses. Pancreatic duct is dilated. Calcifications are present in the pancr eas. LIVER: No masses. Echotexture normal. LIVER VASCULATURE: Normal directional flow of the main portal vein and hepatic veins. GALLBLADDER: No stones. Normal wall thickness. No pericholecystic fluid. ULTRASOUND-DETECTED VARGAS'S SIGN: Negative. INTRAHEPATIC DUCTS AND COMMON DUCT: Common bile duct is borderline at 6.8 mm. There is no intrahepat ic ductal dilatation. INFERIOR VENA CAVA: Not imaged. AORTA: No aneurysm. RIGHT KIDNEY: Normal size, 9.6 cm. Normal echogenicity. No solid or suspicious masses. No hydronephr osis. No calcifications. PERITONEAL AND RIGHT PLEURAL SPACE: No ascites or effusions. OTHER: No other significant findings. IMPRESSION: There is evidence of chronic pancreatitis. The common bile duct is borderline. Is ther e clinical evidence of biliary obstruction? TECHNICAL DOCUMENTATION: JOB ID: [id number] [employer]- All Rights Reserved Reading location - IP/workstation name: [email or web address]
[2018-05-05 14:40] LABS: APPEARANCE,URINE CLOUDY; BILIRUBIN,URINE NEGATIVE (NEGATIVE); COLOR,URINE YELLOW; GLUCOSE, URINE 50 mg/dL (NEGATIVE); KETONES,URINE NEGATIVE (NEGATIVE); LEUKOCYTE ESTERASE,URINE NEGATIVE (NEGATIVE); NITRITE,URINE NEGATIVE (NEGATIVE); PROTEIN,URINE >=500 mg/dL (NEGATIVE); URINE SPECIFIC GRAVITY 1.012; UROBILINOGEN,URINE NEGATIVE mg/dL (<2.0)
[2018-05-05 14:54] LABS: URINE AMPHETAMINES SCREEN NEGATIVE; URINE BARBITURATES SCREEN NEGATIVE; URINE BENZODIAZEPINES SCREEN NEGATIVE; URINE COCAINE SCREEN NEGATIVE; URINE MARIJUANA (THC) SCREEN UNCONFIRMED POSITIVE; URINE METHADONE SCREEN NEGATIVE; URINE PHENCYCLIDINE SCREEN NEGATIVE
--- NOTE | 2018-05-05 15:07 | ER Document Report ---
Doctor's Note Notes: 05/05/18 15:06 Procedure note: IV access: The right EJ was prepped with sterile alcohol swab. Underneath aseptic technique a 20-gauge IV was introduced into the right external jugular. No complications. Patient tolerated procedure well.
--- NOTE | 2018-05-05 15:09 | ER Document Report ---
ED GI/ - General Chief Complaint: Abdominal Pain Stated Complaint: ABDOMINAL PAIN Time Seen by Provider: 05/05/18 10:24 Mode of Arrival: Wheelchair Information source: Patient Notes: Patient presents complaining of abdominal pain with nausea and vomiting since yesterday. Patient does have a history of pancreatitis as well as diabetes. Patient denies any fever. Patient denies any alcohol use. Patient also admits to frequent use of marijuana but states she only takes this to help with her pain symptoms. TRAVEL OUTSIDE OF THE [place] IN LAST 30 DAYS: No - HPI Patient complains to provider of: Abdominal pain, Vomiting Onset: Yesterday Timing/Duration: Worse Quality of pain: Sharp Pain Level: 5 Location: Epigastric Vaginal bleeding (Compared to normal period): None Associated symptoms: Diarrhea, Nausea, Vomiting. denies: Chest pain, Dysuria, Fever, Urinary hesitancy, Urinary frequency, Urinary retention Exacerbated by: Denies Relieved by: Denies Similar symptoms previously: Yes Recently seen / treated by doctor: Yes - Related Data Allergies/Adverse Reactions: hydrocodone [From [place]] Allergy (Verified 05/05/18 17:40) morphine Allergy (Verified 05/05/18 17:40) Past Medical History - General Information source: Patient - Social History Smoking Status: Current Every Day Smoker Chew tobacco use (# tins/day): No Frequency of alcohol use: None Drug Abuse: None Lives with: Family Family History: DM, Hypertension Patient has suicidal ideation: No Patient has homicidal ideation: No - Past Medical History Cardiac Medical History: Reports: Hx Hypercholesterolemia, Hx Hypertension Pulmonary Medical History: Denies: Hx COPD Neurological Medical History: Reports: Hx Seizures Endocrine Medical History: Reports: Hx Diabetes Mellitus Type 1, Hx Diabetes Mellitus Type 2 Renal/ Medical History: Denies: Hx End Stage Renal Disease, Hx Peritoneal Dialysis GI Medical History: Reports: Hx Cirrhosis, Hx Pancreatitis Musculoskeletal Medical History: Denies Hx Arthritis Skin Medical History: Denies Hx Eczema, Denies Hx Psoriasis Psychiatric Medical History: Denies: Hx Dementia, Hx Depression Past Surgical History: Reports: Hx Section - x3, Hx Hysterectomy Review of Systems - Review of Systems Constitutional: No symptoms reported. denies: Fever EENT: No symptoms reported Cardiovascular: No symptoms reported. denies: Chest pain Respiratory: No symptoms reported. denies: Cough, Short of breath Gastrointestinal: Abdominal pain, Diarrhea, Nausea, Vomiting Genitourinary: No symptoms reported. denies: Flank pain Female Genitourinary: No symptoms reported Musculoskeletal: No symptoms reported Skin: No symptoms reported Hematologic/Lymphatic: No symptoms reported Neurological/Psychological: No symptoms reported Physical Exam - Vital signs Vitals: Temp Pulse Resp BP Pulse Ox 98.6 F 102 H 20 149/100 H 99 05/05/18 09:52 05/05/18 09:52 05/05/18 09:52 05/05/18 09:52 05/05/18 09:52 - General General appearance: Alert In distress: Mild - HEENT Head: Normocephalic, Atraumatic Eyes: Normal Conjunctiva: Normal Nasal: Normal Mouth/Lips: Normal Mucous membranes: Dry Neck: Normal, Supple. No: Lymphadenopathy - Respiratory Respiratory status: No respiratory distress Chest status: Nontender Breath sounds: Normal. No: Rales, Rhonchi, Stridor, Wheezing Chest palpation: Normal - Cardiovascular Rhythm: Regular Heart sounds: S1 appreciated, S2 appreciated Murmur: No - Abdominal Inspection: Normal Distension: No distension Bowel sounds: Normal Tenderness: Tender - Diffuse abdominal tenderness, worse epigastric area, Guarding Organomegaly: No organomegaly - Back Back: Normal, Nontender. No: CVA tenderness - Extremities General upper extremity: Normal inspection, Normal ROM General lower extremity: Normal inspection, Normal ROM - Neurological Neuro grossly intact: Yes Cognition: Normal [place] Coma Scale Eye Opening: Spontaneous [place] Coma Scale Verbal: Oriented [place] Coma Scale Motor: Obeys Commands Cook Coma Scale Total: 15 - Psychological Associated symptoms: Normal affect, Normal mood - Skin Skin Temperature: Warm Skin Moisture: Dry Skin Color: Normal Course - Re-evaluation Re-evalutation: 05/05/18 16:[address] Shepherd regarding patient presentation diagnostic evaluation. Recommends consultation with hospitalist for admission. Patient does have slight increase in her renal function tests as well as elevation in her lipase test worrisome for acute on top of chronic pancreatitis at this time. Patient did recently have a CT scan of the abdomen and pelvis performed last week when she had similar symptoms. Patient was admitted earlier this month for pancreatitis. Patient has had continued nausea while here and difficulty c ontrolling her pain symptoms. 05/05/18 17:[address] Krause who accepts patient as an admission to the services of [facility]. Report given to [employer] SALESPERSON Bceca who accepts patient to a medical floor at this time. Patient is agreeable with plan for admission at this time. - Vital Signs Vital signs: Temp Pulse Resp BP Pulse Ox 98.6 F 102 H 11 L 201/108 H 100 05/05/18 19:01 05/05/18 09:52 05/05/18 19:13 05/05/18 19:13 05/05/18 19:13 - Laboratory Result Diagrams: 05/05/18 12:00 05/05/18 15:07 Laboratory results interpreted by me: 05/05/18 05/05/18 05/05/18 12:00 14:01 15:07 Hgb 11.6 L Hct 34.4 L RDW 14.9 H Potassium 3.4 L Anion Gap 4 L Creatinine 1.33 H Est GFR ( Amer) 54 L Est GFR (Non-Af Amer) 45 L Glucose 54 L POC Glucose Albumin 3.3 L Lipase 1110.4 H Urine Protein >=500 H Urine Glucose (UA) 50 H 05/05/18 16:41 Hgb Hct RDW Potassium Anion Gap Creatinine Est GFR ( Amer) Est GFR (Non-Af Amer) Glucose POC Glucose 129 H Albumin Lipase Urine Protein Urine Glucose (UA) 05/05/18 17:10 Labs- Entire Visit 05/05/18 05/05/18 05/05/18 12:00 12:00 12:00 WBC 7.0 RBC 4.02 Hgb 11.6 L Hct 34.4 L MCV 86 MCH 28.9 MCHC 33.8 RDW 14.9 H Plt Count 261 Seg Neutrophils % 55.5 Lymphocytes % 36.2 Monocytes % 5.7 Eosinophils % 1.8 Basophils % 0.8 Absolute Neutrophils 3.9 Absolute Lymphocytes 2.5 Absolute Monocytes 0.4 Absolute Eosinophils 0.1 Absolute Basophils 0.1 VBG pH 7.37 VBG pCO2 51.3 VBG HCO3 28.8 VBG Base Excess 2.7 Sodium Cancelled Potassium Cancelled Chloride Cancelled Carbon Dioxide Cancelled Anion Gap Cancelled BUN Cancelled Creatinine Cancelled Est GFR ( Amer) Cancelled Est GFR (Non-Af Amer) Cancelled Glucose Cancelled POC Glucose Calcium Cancelled Magnesium Total Bilirubin Cancelled Direct Bilirubin Cancelled Neonat Total Bilirubin Cancelled Neonat Direct Bilirubin Cancelled Neonat Indirect Bili Cancelled AST Cancelled ALT Cancelled Alkaline Phosphatase Cancelled Total Protein Cancelled Albumin Cancelled Lipase Cancelled Urine Color Urine Appearance Urine pH Ur Specific [place] Urine Protein Urine Glucose (UA) Urine Ketones Urine Blood Urine Nitrite Urine Bilirubin Urine Urobilinogen Ur Leukocyte Esterase Urine WBC (Auto) Urine RBC (Auto) Urine Bacteria (Auto) Squamous Epi Cells Auto Urine Mucus (Auto) Urine Ascorbic Acid Urine HCG, Qual Urine Opiates Screen Urine Methadone Screen Ur Barbiturates Screen Ur Phencyclidine Scrn Ur Amphetamines Screen U Benzodiazepines Scrn Urine Cocaine Screen U Marijuana (THC) Screen Serum Alcohol Cancelled 05/05/18 05/05/18 05/05/18 14:01 14:01 15:07 WBC RBC Hgb Hct MCV MCH MCHC RDW Plt Count Seg Neutrophils % Lymphocytes % Monocytes % Eosinophils % Basophils % Absolute Neutrophils Absolute Lymphocytes Absolute Monocytes Absolute Eosinophils Absolute Basophils VBG pH VBG pCO2 VBG HCO3 VBG Base Excess Sodium 138.4 Potassium 3.4 L Chloride 105 Carbon Dioxide 29 Anion Gap 4 L BUN 18 Creatinine 1.33 H Est GFR ( Amer) 54 L Est GFR (Non-Af Amer) 45 L Glucose 54 L POC Glucose Calcium 9.6 Magnesium Total Bilirubin 0.3 Direct Bilirubin 0.2 Neonat Total Bilirubin Not Reportable Neonat Direct Bilirubin Not Reportable Neonat Indirect Bili Not Reportable AST 27 ALT 28 Alkaline Phosphatase 103 Total Protein 6.3 Albumin 3.3 L Lipase 1110.4 H Urine Color YELLOW Urine Appearance CLOUDY Urine pH 6.0 Ur Specific [place] 1.012 Urine Protein >=500 H Urine Glucose (UA) 50 H Urine Ketones NEGATIVE Urine Blood NEGATIVE Urine Nitrite NEGATIVE Urine Bilirubin NEGATIVE Urine Urobilinogen NEGATIVE Ur Leukocyte Esterase NEGATIVE Urine WBC (Auto) 2 Urine RBC (Auto) 0 Urine Bacteria (Auto) TRACE Squamous Epi Cells Auto 7 Urine Mucus (Auto) RARE Urine Ascorbic Acid NEGATIVE Urine HCG, Qual NEGATIVE Urine Opiates Screen UNCONFIRMED POSITIVE Urine Methadone Screen NEGATIVE Ur Barbiturates Screen NEGATIVE Ur Phencyclidine Scrn NEGATIVE Ur Amphetamines Screen NEGATIVE U Benzodiazepines Scrn NEGATIVE Urine Cocaine Screen NEGATIVE U Marijuana (THC) Screen UNCONFIRMED POSITIVE Serum Alcohol < 10 05/05/18 05/05/18 15:07 16:41 WBC RBC Hgb Hct MCV MCH MCHC RDW Plt Count Seg Neutrophils % Lymphocytes % Monocytes % Eosinophils % Basophils % Absolute Neutrophils Absolute Lymphocytes Absolute Monocytes Absolute Eosinophils Absolute Basophils VBG pH VBG pCO2 VBG HCO3 VBG Base Excess Sodium Potassium Chloride Carbon Dioxide Anion Gap BUN Creatinine Est GFR ( Amer) Est GFR (Non-Af Amer) Glucose POC Glucose 129 H Calcium Magnesium 1.8 Total Bilirubin Direct Bilirubin Neonat Total Bilirubin Neonat Direct Bilirubin Neonat Indirect Bili AST ALT Alkaline Phosphatase Total Protein Albumin Lipase Urine Color Urine Appearance Urine pH Ur Specific [place] Urine Protein Urine Glucose (UA) Urine Ketones Urine Blood Urine Nitrite Urine Bilirubin Urine Urobilinogen Ur Leukocyte Esterase Urine WBC (Auto) Urine RBC (Auto) Urine Bacteria (Auto) Squamous Epi Cells Auto Urine Mucus (Auto) Urine Ascorbic Acid Urine HCG, Qual Urine Opiates Screen Urine Methadone Screen Ur Barbiturates Screen Ur Phencyclidine Scrn Ur Amphetamines Screen U Benzodiazepines Scrn Urine Cocaine Screen U Marijuana (THC) Screen Serum Alcohol - Diagnostic Test Radiology reviewed: Reports reviewed Discharge - Discharge Clinical Impression: RONIT (acute kidney injury), Epigastric abdominal pain Pancreatitis Qualifiers: Chronicity: acute Pancreatitis type: unspecified pancreatitis type Acute pancreatitis complication: unspecified Qualified Code(s): K85.90 - Acute pancreatitis without necrosis or infection, unspecified Intractable nausea and vomiting Qualifiers: Vomiting type: unspecified Qualified Code(s): R11.2 - Nausea with vomiting, unspecified Condition: Fair Disposition: ADMITTED INPATIENT Admitting Provider: Hospitalist Unit Admitted: Medical Floor
[2018-05-05 15:39] LABS: ALANINE AMINOTRANSFERASE 28 U/L (9-52); ALBUMIN 3.3 g/dL (3.5-5.0); ALKALINE PHOSPHATASE 103 U/L (38-126); ASPARTATE AMINO TRANSFERASE 27 U/L (14-36); BILIRUBIN,DIRECT 0.2 mg/dL (0.0-0.4); BILIRUBIN,TOTAL 0.3 mg/dL (0.2-1.3); BLOOD UREA NITROGEN 18 mg/dL (7-20); CALCIUM 9.6 mg/dL (8.4-10.2); CARBON DIOXIDE 29 mmol/L (22-30); CHLORIDE 105 mmol/L (98-107); LIPASE 1110.4 U/L (23-300); POTASSIUM 3.4 mmol/L (3.6-5.0); SODIUM 138.4 mmol/L (137-145); TOTAL PROTEIN 6.3 g/dL (6.3-8.2)
[2018-05-05 15:42] LABS: ALCOHOL < 10 mg/dL (NONE DETECTED)
[2018-05-05 15:44] LABS: ANION GAP 4 (5-19); GLUCOSE 54 mg/dL (75-110)
[2018-05-05] MEDS ORDERED: DEXTROSE 50%-WATER 25 GM/50 ML DISP.SYRIN IV ONE (15:54)
[2018-05-05] MEDS ORDERED: RINGERS SOLUTION,LACTATED 1,000 ML IV ONE (15:56)
[2018-05-05] MEDS ORDERED: ACETAMINOPHEN 325 MG TABLET PO PRN (17:16)
[2018-05-05] MEDS ORDERED: NORMAL SALINE 1000 ML 1,000 ML IV PRN (17:16)
[2018-05-05] MEDS ORDERED: ZOLPIDEM TARTRATE 5 MG TABLET PO PRN (17:16)
[2018-05-05] MEDS ORDERED: HYDROMORPHONE HCL INJ/PF 2 MG/ML AMPULE IV PRN (17:22)
[2018-05-05] MEDS ORDERED: GLUCAGON,HUMAN RECOMB 1 MG INJ IM PRN (17:25)
[2018-05-05] MEDS ORDERED: DEXTROSE 40% GEL 15 GM TUBE PO PRN ×2 (17:25)
[2018-05-05] MEDS ORDERED: DEXTROSE 50%-WATER 25 GM/50 ML DISP.SYRIN IV PRN (17:25)
--- NOTE | 2018-05-05 18:02 | PDOC H&P ---
History of Present Illness Admission Date/PCP: 05/05/18 17:17 LYNNE OLMEDO Patient complains of: Abdominal pain, nausea and vomiting History of Present Illness: JJ HOFFMAN is a 37 year old -[place] female with past medical history of diabetes mellitus, essential hypertension, dyslipidemia and chronic pancreatitis; who presents to [facility]'s emergency room with complaints of 2-day history of vomiting and severe epigastric pain. She was recently admitted to our facility on 04/20/2018, with same complaints. She states she never completely felt back to normal since that admission. She has been seen in the ER 3 times since then because of nausea and abdominal pain. Today her lipase was up to 1100 and she had a slight bump in her creatinine up to 1.33. She was therefore referred to the hospitalist service for admission. Past Medical History Cardiac Medical History: Reports: Hyperlipidema, Hypertension Pulmonary Medical History: Denies: Chronic Obstructive Pulmonary Disease (COPD) Neurological Medical History: Reports: Seizures Endocrine Medical History: Reports: Diabetes Mellitus Type 1 Renal/ Medical History: Reports: None Denies: End Stage Renal Disease Malignancy Medical History: Reports: None GI Medical History: Reports: Cirrhosis Musculoskeltal Medical History: Denies: Arthritis Skin Medical History: Denies: Eczema, Psoriasis Psychiatric Medical History: Reports: Substance Abuse Denies: Dementia, Depression Traumatic Medical History: Reports: None Hematology: Reports: Anemia Infectious Medical History: Reports: None Past Surgical History Past Surgical History: Reports: Section - x3, Hysterectomy Social History Information Source: Patient, Emergency Med Personnel Lives with: Family Smoking Status: Current Every Day Smoker Frequency of Alcohol Use: None - Unclear Hx Recreational Drug Use: No Drugs: Marijuana Hx Prescription Drug Abuse: No - Advance Directive Resuscitation Status: Full Code Surrogate healthcare decision maker:: Mother Family History Family History: DM, Hypertension Parental Family History Reviewed: Yes Children Family History Reviewed: Yes Sibling(s) Family History Reviewed.: Yes Medication/Allergy Home Medications: Amlodipine Besylate [Norvasc 5 mg Tablet] 5 mg PO Q12 04/20/18 Insulin Aspart [Novolog Flexpen] 0 unit SUBCUT .SLD SCALE 04/20/18 Lisinopril [Prinivil 40 mg Tablet] 40 mg PO BID 04/20/18 Metoprolol Succinate [Toprol Xl 50 mg Tab.sr] 50 mg PO DAILY 04/20/18 Acetaminophen [Tylenol 325 mg Tablet] 650 mg PO Q4HP PRN tablet 04/22/18 Insulin Glargine,Hum.rec.anlog [Lantus Insulin 100 Unit/mL] 10 unit SUBCUT DAILY #1 insuln.pen 04/22/18 Metoprolol Succinate [Toprol Xl 50 mg Tab.sr] 50 mg PO Q12 tab.sr.24h 04/22/18 Ondansetron [Zofran Odt 4 mg Tablet] 1 - 2 tab PO Q4HP PRN #10 tab.rapdis 04/22/18 Oxycodone HCl [Oxy-Ir 5 mg Tablet] 5 mg PO Q6HP PRN #12 tablet 04/22/18 Promethazine HCl [Phenergan 25 mg Tablet] 12.2 - 25 mg PO ASDIR PRN #12 tablet 04/22/18 Allergies/Adverse Reactions: hydrocodone [From [place]] Allergy (Verified 05/05/18 17:40) morphine Allergy (Verified 05/05/18 17:40) Review of Systems Constitutional: PRESENT: chills Eyes: ABSENT: visual disturbances Ears: ABSENT: hearing changes Cardiovascular: ABSENT: chest pain, dyspnea on exertion, edema, orthropnea, pa lpitations Gastrointestinal: PRESENT: abdominal pain, nausea, vomiting Genitourinary: ABSENT: dysuria, hematuria Musculoskeletal: ABSENT: joint swelling Integumentary: ABSENT: rash, wounds Neurological: ABSENT: abnormal gait, abnormal speech, confusion, dizziness, focal weakness, syncope Psychiatric: PRESENT: anxiety, other - tearful. ABSENT: depression, homidical ideation, suicidal ideation Endocrine: ABSENT: cold intolerance, heat intolerance, polydipsia, polyuria Hematologic/Lymphatic: ABSENT: easy bleeding, easy bruising Physical Exam Vital Signs: Temp Pulse Resp BP Pulse Ox 98.6 F 102 H 18 175/108 H 91 L 05/05/18 09:52 05/05/18 09:52 05/05/18 17:01 05/05/18 17:01 05/05/18 17:01 Intake & Output 05/04/18 05/05/18 05/06/18 06:59 06:59 06:59 Intake Total 1000 Balance 1000 Weight 58.967 kg General appearance: PRESENT: no acute distress, well-developed, well-nourished Head exam: PRESENT: atraumatic, normocephalic Eye exam: PRESENT: conjunctiva pink, EOMI, PERRLA. ABSENT: scleral icterus Ear exam: PRESENT: normal external ear exam Mouth exam: PRESENT: moist, tongue midline Neck exam: ABSENT: carotid bruit, JVD, lymphadenopathy, thyromegaly Respiratory exam: PRESENT: clear to auscultation teddy. ABSENT: rales, rhonchi, wheezes Cardiovascular exam: PRESENT: RRR. ABSENT: diastolic murmur, rubs, systolic murmur Pulses: PRESENT: normal dorsalis pedis pul Vascular exam: PRESENT: normal capillary refill GI/Abdominal exam: PRESENT: normal bowel sounds, soft, tenderness Rectal exam: PRESENT: deferred Extremities exam: PRESENT: full ROM. ABSENT: calf tenderness, clubbing, pedal edema Musculoskeletal exam: PRESENT: ambulatory, full ROM Neurological exam: PRESENT: alert, awake, oriented to person, oriented to place, oriented to time, oriented to situation, CN II-XII grossly intact. ABSENT: mot or sensory deficit Psychiatric exam: PRESENT: anxious Skin exam: PRESENT: dry, intact, warm. ABSENT: cyanosis, rash Results Laboratory Results: 05/05/18 12:00 05/05/18 15:07 05/05/18 05/05/18 05/05/18 12:00 12:00 12:00 WBC 7.0 RBC 4.02 Hgb 11.6 L Hct 34.4 L MCV 86 MCH 28.9 MCHC 33.8 RDW 14.9 H Plt Count 261 Seg Neutrophils % 55.5 Lymphocytes % 36.2 Monocytes % 5.7 Eosinophils % 1.8 Basophils % 0.8 Absolute Neutrophils 3.9 Absolute Lymphocytes 2.5 Absolute Monocytes 0.4 Absolute Eosinophils 0.1 Absolute Basophils 0.1 VBG pH 7.37 VBG pCO2 51.3 VBG HCO3 28.8 VBG Base Excess 2.7 Sodium Cancelled Potassium Cancelled Chloride Cancelled Carbon Dioxide Cancelled Anion Gap Cancelled BUN Cancelled Creatinine Cancelled Est GFR ( Amer) Cancelled Est GFR (Non-Af Amer) Cancelled Glucose Cancelled Calcium Cancelled Magnesium Total Bilirubin Cancelled AST Cancelled ALT Cancelled Alkaline Phosphatase Cancelled Total Protein Cancelled Albumin Cancelled Lipase Cancelled Urine Color Urine Appearance Urine pH Ur Specific [place] Urine Protein Urine Glucose (UA) Urine Ketones Urine Blood Urine Nitrite Ur Leukocyte Esterase Urine WBC (Auto) Urine RBC (Auto) 05/05/18 05/05/18 05/05/18 14:01 15:07 15:07 WBC RBC Hgb Hct MCV MCH MCHC RDW Plt Count Seg Neutrophils % Lymphocytes % Monocytes % Eosinophils % Basophils % Absolute Neutrophils Absolute Lymphocytes Absolute Monocytes Absolute Eosinophils Absolute Basophils VBG pH VBG pCO2 VBG HCO3 VBG Base Excess Sodium 138.4 Potassium 3.4 L Chloride 105 Carbon Dioxide 29 Anion Gap 4 L BUN 18 Creatinine 1.33 H Est GFR ( Amer) 54 L Est GFR (Non-Af Amer) 45 L Glucose 54 L Calcium 9.6 Magnesium 1.8 Total Bilirubin 0.3 AST 27 ALT 28 Alkaline Phosphatase 103 Total Protein 6.3 Albumin 3.3 L Lipase 1110.4 H Urine Color YELLOW Urine Appearance CLOUDY Urine pH 6.0 Ur Specific [place] 1.012 Urine Protein >=500 H Urine Glucose (UA) 50 H Urine Ketones NEGATIVE Urine Blood NEGATIVE Urine Nitrite NEGATIVE Ur Leukocyte Esterase NEGATIVE Urine WBC (Auto) 2 Urine RBC (Auto) 0 Impressions: Abdomen Ultrasound 05/05/18 12:18 IMPRESSION: There is evidence of chronic pancreatitis. The common bile duct is borderline. Is there clinical evidence of biliary obstruction? Assessment and Plan - Diagnosis (1) Epigastric abdominal pain Is this a current diagnosis for this admission?: Yes Plan: Pepcid 20 mg IV twice daily. (2) Intractable nausea and vomiting Qualifiers: Vomiting type: unspecified Qualified Code(s): R11.2 - Nausea with vomiting, unspecified Is this a current diagnosis for this admission?: Yes Plan: Patient will be kept n.p.o. except for ice chips. She will be hydrated with IV fluids. Zofran IV for nausea (3) Acute on chronic pancreatitis Is this a current diagnosis for this admission?: Yes Plan: As above in #1 (4) Hypertension Is this a current diagnosis for this admission?: Yes Plan: Continue home medications (5) Hypoglycemia Is this a current diagnosis for this admission?: Yes Plan: We will hold insulin and only cover with sliding scale coverage for now. 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 - Time Time Spent with patient: 35 or more minutes Total Critical Time (Minutes): 30 Smoking Cessation Education: 3 to 10 minutes Medications reviewed and adjusted accordingly: Yes Anticipated discharge: Home Within: within 48 hours - Inpatient Certification Based on my medical assessment, after consideration of the patient's comorbidities, presenting symptoms, or acuity I expect that the services needed warrant INPATIENT care.: Yes I certify that my determination is in accordance with my understanding of Medicare's requirements for reasonable and necessary INPATIENT services [42 CFR 412.3e].: Yes Medical Necessity: Need For IV Fluids, Need for Pain Control
[2018-05-05] MEDS: INSULIN LISPRO 100 UNIT/ML 3 ML VIAL SUBCUT SCH (18:25)
[2018-05-05] MEDS ORDERED: HYDRALAZINE HCL INJ/PF 20 MG/1 ML SDV IV PRN (19:15)
[2018-05-05] MEDS ORDERED: NORMAL SALINE 1000 ML 1,000 ML IV SCH (19:30)
[2018-05-05] MEDS: AMLODIPINE BESYLATE 5 MG TABLET PO SCH ×2 (19:47→22:21)
[2018-05-05] MEDS: METOPROLOL SUCCINATE 50 MG TAB.SR.24H PO SCH ×2 (19:47→22:21)
[2018-05-05] MEDS: DEXTROSE 50%-WATER 25 GM/50 ML DISP.SYRIN IV PRN (20:17)
[2018-05-05] MEDS ORDERED: KETOROLAC TROMETHAMINE INJ/PF 30 MG/1 ML SDV IV PRN (20:52)
[2018-05-05] MEDS: HYDROMORPHONE HCL INJ/PF 2 MG/ML AMPULE SUBCUT PRN (20:57)
[2018-05-05] MEDS: HEPARIN SOD (PORCINE) 5,000 UNIT/ML 1 ML SYRINGE SUBCUT SCH (21:36)
[2018-05-05] MEDS: FAMOTIDINE INJ/PF 20 MG/2 ML SDV IV SCH (21:36)
[2018-05-06] MEDS: INSULIN LISPRO 100 UNIT/ML 3 ML VIAL SUBCUT SCH ×4 (02:05→17:46)
[2018-05-06 05:26] LABS: ABSOLUTE BASOPHILS # (AUTO) 0.1 10^3/uL (0.0-0.2); ABSOLUTE EOSINOPHILS # (AUTO) 0.2 10^3/uL (0.0-0.6); ABSOLUTE LYMPHOCYTES (AUTO) 2.7 10^3/uL (0.5-4.7); ABSOLUTE MONOCYTES (AUTO) 0.3 10^3/uL (0.1-1.4); ABSOLUTE NEUT (AUTO) 2.5 10^3/uL (1.7-8.2); BASOPHILS % (AUTO) 1.1 % (0-2); EOSINOPHILS % (AUTO) 3.6 % (0-6); HEMATOCRIT 29.4 % (36.0-47.0); HEMOGLOBIN 10.1 g/dL (12.0-15.5); LYMPHOCYTES % (AUTO) 46.7 % (13-45); MEAN CORPUSCULAR HGB CONC 34.3 g/dL (32.0-36.0); MEAN CORPUSCULAR VOLUME 85 fl (80-97); PLATELET COUNT 259 10^3/uL (150-450); RED BLOOD COUNT 3.48 10^6/uL (3.72-5.28); RED CELL DISTRIBUTION WIDTH 14.8 % (11.5-14.0); SEGMENTED NEUTROPHILS % (AUTO) 42.6 % (42-78); TOTAL CELLS COUNTED % (AUTO) 100 %; WHITE BLOOD COUNT 5.8 10^3/uL (4.0-10.5)
[2018-05-06 05:39] LABS: ANION GAP 6 (5-19); BLOOD UREA NITROGEN 16 mg/dL (7-20); CALCIUM 9.3 mg/dL (8.4-10.2); CARBON DIOXIDE 26 mmol/L (22-30); CHLORIDE 107 mmol/L (98-107); GLUCOSE 81 mg/dL (75-110); POTASSIUM 3.5 mmol/L (3.6-5.0); SODIUM 138.7 mmol/L (137-145)
[2018-05-06] MEDS: HEPARIN SOD (PORCINE) 5,000 UNIT/ML 1 ML SYRINGE SUBCUT SCH ×3 (05:59→21:57)
[2018-05-06 06:02] LABS: LIPASE 9515.4 U/L (23-300)
[2018-05-06] MEDS: DEXTROSE 50%-WATER 25 GM/50 ML DISP.SYRIN IV PRN (07:16)
[2018-05-06] MEDS: DEXTROSE 5%-NORMAL SALINE 1,000 ML IV PRN ×2 (07:25→19:56)
[2018-05-06] MEDS ORDERED: 1/2 NORMAL SALINE 1,000 ML IV PRN (08:01)
[2018-05-06] MEDS ORDERED: DEXTROSE 5%-NORMAL SALINE 1,000 ML IV PRN (08:28)
[2018-05-06] MEDS: METOPROLOL SUCCINATE 50 MG TAB.SR.24H PO SCH ×2 (09:16→21:58)
[2018-05-06] MEDS: AMLODIPINE BESYLATE 5 MG TABLET PO SCH ×2 (09:16→21:57)
[2018-05-06] MEDS: FAMOTIDINE INJ/PF 20 MG/2 ML SDV IV SCH ×2 (09:17→21:57)
[2018-05-06] MEDS: HYDROMORPHONE HCL INJ/PF 2 MG/ML AMPULE SUBCUT PRN ×3 (09:17→23:27)
--- NOTE | 2018-05-06 10:40 | PDOC PROGRESS REPORT ---
Subjective Progress Note for:: 05/06/18 Subjective:: This is 77 years old black female patient with past medical history of alcohol induced chronic pancreatitis, hyperlipidemia, hypertension, type 2 diabetes mellitus presents with chief complaint of abdominal pain, nausea and vomiting. Patient claims that she is from her for the last 6 years. She smokes marijuana and urine toxicology also positive for marijuana. Her CT scan of the abdomen reported as redemonstration of stigmata of chronic pancreatitis. Her lipase is 9500. Patient has been on fluids and pain control. She reports this her abdominal pain is relatively better and she asked if she can eat. Reason For Visit: ABDOMINAL PAIN Physical Exam Vital Signs: Temp Pulse Resp BP Pulse Ox 98.2 F 82 16 171/100 H 99 05/06/18 08:26 05/06/18 08:26 05/06/18 08:26 05/06/18 08:26 05/06/18 08:26 Intake & Output 05/05/18 05/06/18 05/07/18 06:59 06:59 06:59 Intake Total 1000 Balance 1000 Weight 58.7 kg General appearance: PRESENT: no acute distress, well-developed, well-nourished Head exam: PRESENT: atraumatic, normocephalic Eye exam: PRESENT: conjunctiva pink, EOMI, PERRLA. ABSENT: scleral icterus Ear exam: PRESENT: normal external ear exam Mouth exam: PRESENT: moist, tongue midline Neck exam: ABSENT: carotid bruit, JVD, lymphadenopathy, thyromegaly Respiratory exam: PRESENT: clear to auscultation teddy. ABSENT: rales, rhonchi, wheezes Cardiovascular exam: PRESENT: RRR. ABSENT: diastolic murmur, rubs, systolic murmur Pulses: PRESENT: normal dorsalis pedis pul Vascular exam: PRESENT: normal capillary refill GI/Abdominal exam: PRESENT: tenderness - Epigastric Rectal exam: PRESENT: deferred Extremities exam: PRESENT: full ROM. ABSENT: calf tenderness, clubbing, pedal edema Neurological exam: PRESENT: alert, awake, oriented to person, oriented to place, oriented to time, oriented to situation, CN II-XII grossly intact. ABSENT: motor sensory deficit Psychiatric exam: PRESENT: appropriate affect, normal mood. ABSENT: homicidal ideation, suicidal ideation Skin exam: PRESENT: dry, intact, warm. ABSENT: cyanosis, rash Results Laboratory Results: 05/06/18 04:52 05/06/18 04:52 05/05/18 05/05/18 05/05/18 12:00 12:00 12:00 WBC 7.0 RBC 4.02 Hgb 11.6 L Hct 34.4 L MCV 86 MCH 28.9 MCHC 33.8 RDW 14.9 H Plt Count 261 Seg Neutrophils % 55.5 Lymphocytes % 36.2 Monocytes % 5.7 Eosinophils % 1.8 Basophils % 0.8 Absolute Neutrophils 3.9 Absolute Lymphocytes 2.5 Absolute Monocytes 0.4 Absolute Eosinophils 0.1 Absolute Basophils 0.1 VBG pH 7.37 VBG pCO2 51.3 VBG HCO3 28.8 VBG Base Excess 2.7 Sodium Cancelled Potassium Cancelled Chloride Cancelled Carbon Dioxide Cancelled Anion Gap Cancelled BUN Cancelled Creatinine Cancelled Est GFR ( Amer) Cancelled Est GFR (Non-Af Amer) Cancelled Glucose Cancelled Calcium Cancelled Magnesium Total Bilirubin Cancelled AST Cancelled ALT Cancelled Alkaline Phosphatase Cancelled Total Protein Cancelled Albumin Cancelled Lipase Cancelled Urine Color Urine Appearance Urine pH Ur Specific [place] Urine Protein Urine Glucose (UA) Urine Ketones Urine Blood Urine Nitrite Ur Leukocyte Esterase Urine WBC (Auto) Urine RBC (Auto) 05/05/18 05/05/18 05/05/18 14:01 15:07 15:07 WBC RBC Hgb Hct MCV MCH MCHC RDW Plt Count Seg Neutrophils % Lymphocytes % Monocytes % Eosinophils % Basophils % Absolute Neutrophils Absolute Lymphocytes Absolute Monocytes Absolute Eosinophils Absolute Basophils VBG pH VBG pCO2 VBG HCO3 VBG Base Excess Sodium 138.4 Potassium 3.4 L Chloride 105 Carbon Dioxide 29 Anion Gap 4 L BUN 18 Creatinine 1.33 H Est GFR ( Amer) 54 L Est GFR (Non-Af Amer) 45 L Glucose 54 L Calcium 9.6 Magnesium 1.8 Total Bilirubin 0.3 AST 27 ALT 28 Alkaline Phosphatase 103 Total Protein 6.3 Albumin 3.3 L Lipase 1110.4 H Urine Color YELLOW Urine Appearance CLOUDY Urine pH 6.0 Ur Specific [place] 1.012 Urine Protein >=500 H Urine Glucose (UA) 50 H Urine Ketones NEGATIVE Urine Blood NEGATIVE Urine Nitrite NEGATIVE Ur Leukocyte Esterase NEGATIVE Urine WBC (Auto) 2 Urine RBC (Auto) 0 05/06/18 05/06/18 04:52 04:52 WBC 5.8 RBC 3.48 L Hgb 10.1 L Hct 29.4 L MCV 85 MCH 29.0 MCHC 34.3 RDW 14.8 H Plt Count 259 Seg Neutrophils % 42.6 Lymphocytes % 46.7 H Monocytes % 6.0 Eosinophils % 3.6 Basophils % 1.1 Absolute Neutrophils 2.5 Absolute Lymphocytes 2.7 Absolute Monocytes 0.3 Absolute Eosinophils 0.2 Absolute Basophils 0.1 VBG pH VBG pCO2 VBG HCO3 VBG Base Excess Sodium 138.7 Potassium 3.5 L Chloride 107 Carbon Dioxide 26 Anion Gap 6 BUN 16 Creatinine 1.18 Est GFR ( Amer) > 60 Est GFR (Non-Af Amer) 52 L Glucose 81 Calcium 9.3 Magnesium 1.7 Total Bilirubin AST ALT Alkaline Phosphatase Total Protein Albumin Lipase 9515.4 H Urine Color Urine Appearance Urine pH Ur Specific [place] Urine Protein Urine Glucose (UA) Urine Ketones Urine Blood Urine Nitrite Ur Leukocyte Esterase Urine WBC (Auto) Urine RBC (Auto) Impressions: Abdomen Ultrasound 05/05/18 12:18 IMPRESSION: There is evidence of chronic pancreatitis. The common bile duct is borderline. Is there clinical evidence of biliary obstruction? Assessment and Plan - Diagnosis (1) Acute on chronic pancreatitis Is this a current diagnosis for this admission?: Yes Plan: Hydration, pain control and bowel rest. I will advance her diet to full liquid. (2) Intractable nausea and vomiting Is this a current diagnosis for this admission?: Yes Plan: Is improving (3) Type 2 diabetes mellitus Is this a current diagnosis for this admission?: Yes Plan: Continue current regimen (4) Hyperlipidemia Qualifiers: Hyperlipidemia type: unspecified Qualified Code(s): E78.5 - Hyperlipidemia, unspecified Is this a current diagnosis for this admission?: Yes Plan: Continue home medication (5) Hypertension Qualifiers: Hypertension type: essential hypertension Qualified Code(s): I10 - Essential (primary) hypertension Is this a current diagnosis for this admission?: Yes Plan: Not well controlled. I will adjust her medications.
[2018-05-06] MEDS ORDERED: NYSTATIN/DEXAMETH/DIPHEN SUSP 120 ML PO ONE (12:55)
[2018-05-06] MEDS ORDERED: NYSTATIN/DEXAMETH/DIPHEN SUSP 120 ML PO SCH (14:00)
[2018-05-06] MEDS: PROMETHAZINE HCL INJ 25 MG/1 ML VIAL IV PRN (15:39)
[2018-05-06] MEDS: ONDANSETRON HCL INJ/PF 4 MG/2 ML SDV IV PRN (23:40)
[2018-05-07] MEDS: INSULIN LISPRO 100 UNIT/ML 3 ML VIAL SUBCUT SCH ×4 (06:12→18:23)
[2018-05-07] MEDS: HEPARIN SOD (PORCINE) 5,000 UNIT/ML 1 ML SYRINGE SUBCUT SCH ×3 (06:13→21:10)
[2018-05-07] MEDS: HYDROMORPHONE HCL INJ/PF 2 MG/ML AMPULE SUBCUT PRN ×3 (07:40→18:22)
[2018-05-07] MEDS: ONDANSETRON HCL INJ/PF 4 MG/2 ML SDV IV PRN (07:41)
--- NOTE | 2018-05-07 10:24 | PDOC PROGRESS REPORT ---
Subjective Progress Note for:: 05/07/18 Subjective:: I seen patient sitting up in bed. Yesterday advancing her diet to full liquid but she could not tolerate and she started to have nausea and vomiting. And I put her back on clear liquid diet. Her lipase is trending down from 5050-2495. Reason For Visit: ABDOMINAL PAIN Physical Exam Vital Signs: Temp Pulse Resp BP Pulse Ox 97.3 F 84 16 177/90 H 97 05/07/18 07:57 05/07/18 07:57 05/07/18 07:57 05/07/18 07:57 05/07/18 07:57 Intake & Output 05/06/18 05/07/18 05/08/18 06:59 06:59 06:59 Intake Total 1000 2866 Balance 1000 2866 Weight 58.7 kg 58.9 kg Head exam: PRESENT: atraumatic Eye exam: PRESENT: conjunctiva pink Mouth exam: PRESENT: moist Neck exam: ABSENT: carotid bruit, JVD, lymphadenopathy, thyromegaly Respiratory exam: PRESENT: clear to auscultation teddy. ABSENT: rales, rhonchi, wheezes Cardiovascular exam: PRESENT: RRR. ABSENT: diastolic murmur, rubs, systolic murmur GI/Abdominal exam: PRESENT: tenderness - Epigastric Neurological exam: PRESENT: alert, awake, oriented to time, oriented to situation Results Laboratory Results: 05/06/18 04:52 05/06/18 04:52 05/07/18 04:56 Lipase 1475.5 H Impressions: Abdomen Ultrasound 05/05/18 12:18 IMPRESSION: There is evidence of chronic pancreatitis. The common bile duct is borderline. Is there clinical evidence of biliary obstruction? Assessment and Plan - Diagnosis (1) Acute on chronic pancreatitis Is this a current diagnosis for this admission?: Yes Plan: Patient is not able to tolerate full liquid diet. She is on clear liquid diet. (2) Intractable nausea and vomiting Is this a current diagnosis for this admission?: Yes Plan: Improving (3) Type 2 diabetes mellitus Is this a current diagnosis for this admission?: Yes Plan: Continue current regimen (4) Hyperlipidemia Qualifiers: Hyperlipidemia type: unspecified Qualified Code(s): E78.5 - Hyperlipidemia, unspecified Is this a current diagnosis for this admission?: Yes Plan: Continue home medication (5) Hypertension Qualifiers: Hypertension type: essential hypertension Qualified Code(s): I10 - Essential (primary) hypertension Is this a current diagnosis for this admission?: Yes Plan: Not well controlled. I will adjust her medications.
[2018-05-07] MEDS: AMLODIPINE BESYLATE 5 MG TABLET PO SCH ×2 (11:09→21:11)
[2018-05-07] MEDS: METOPROLOL SUCCINATE 50 MG TAB.SR.24H PO SCH ×2 (11:10→21:11)
[2018-05-07] MEDS: FAMOTIDINE INJ/PF 20 MG/2 ML SDV IV SCH ×2 (11:10→21:10)
[2018-05-07] MEDS: PROMETHAZINE HCL INJ 25 MG/1 ML VIAL IV PRN ×2 (11:51→18:23)
[2018-05-07] MEDS: DEXTROSE 5%-NORMAL SALINE 1,000 ML IV PRN (21:21)
[2018-05-08] MEDS: INSULIN LISPRO 100 UNIT/ML 3 ML VIAL SUBCUT SCH ×4 (01:27→18:30)
[2018-05-08] MEDS: HYDROMORPHONE HCL INJ/PF 2 MG/ML AMPULE SUBCUT PRN ×3 (03:22→18:29)
[2018-05-08] MEDS: HEPARIN SOD (PORCINE) 5,000 UNIT/ML 1 ML SYRINGE SUBCUT SCH ×3 (06:14→23:03)
[2018-05-08] MEDS: METOPROLOL SUCCINATE 50 MG TAB.SR.24H PO SCH ×2 (12:45→23:05)
[2018-05-08] MEDS: AMLODIPINE BESYLATE 5 MG TABLET PO SCH ×2 (12:45→23:06)
[2018-05-08] MEDS: FAMOTIDINE INJ/PF 20 MG/2 ML SDV IV SCH ×2 (12:45→23:06)
[2018-05-08] MEDS: PROMETHAZINE HCL INJ 25 MG/1 ML VIAL IV PRN ×2 (12:47→18:29)
--- NOTE | 2018-05-08 13:01 | RADIOLOGY REPORT (SQ) ---
EXAM DESCRIPTION: PICC INSERTION; FLUORO/CV PLACEMENT; U/S GUIDE FOR VASCULAR ACCESS COMPLETED DATE/TIME: 05/08/2018 12:05 pm REASON FOR STUDY: poor peripheral access; IV ACCESS COMPARISON: CT abdomen pelvis 04/28/2018 FLUOROSCOPY TIME: 1 minutes 49 seconds 1 ultrasound image, 2 digital fluoroscopic imagessaved to PACS. TECHNIQUE: Fluoroscopic and ultrasound guided PICC placement. LIMITATIONS: None. PROCEDURE: After written consent and assessment were obtained, the patient was brought into the fluo roscopy room and placed supine on the table. Ultrasound evaluation of potential access sites were per formed. After successfully identifying a patent right basilic vein, the right arm was prepped and collins ped in a sterile fashion along with the ultrasound probe. The entry site was anesthetized with 1% lid ocaine. A 21 gauge 7 cm needle was advanced through the skin and into the basilic vein under live ult rasound guidance. An ultrasound image was saved to PACS confirming access site. A .018 guide wire w as then inserted through the needle and into the venous system. The needle was then removed and an 11 blade scalpel was used to make a 1cm skin incision. A 5 fr peel-away sheath was advanced over the w galileo and into the venous system. A measurement was then made using the existing wire and live fluorosc opic guidance. The wire was then removed and trimmed. The PICC was advanced through the peel-away she ath and into the venous system. The peel-away sheath was removed and the catheter was adhered to the patients arm with a stat lock. The catheter was then aspirated and flushed and a sterile bandage was placed over the access site. A fluoroscopic spot image was saved to PACS confirming the catheter tip within the superior vena cava. IMPRESSION: SUCCESSFUL PLACEMENT OF A 5 FR DUAL LUMEN 40 CM PICC IN THE RIGHT BASILIC VEIN. COMMENT: Patient medication list reviewed: Yes- Quality ID# [id number]:Eligible professional attests to doc umenting in the medical record they obtained, updated, or reviewed the patient's current medications. . Quality ID 145: Final reports for procedures using fluoroscopy that document radiation exposure rand jen, or exposure time and number of fluorographic images (if radiation exposure indices are not avail able) Quality ID #76: The patient was prepped and draped using maximum sterile barrier technique including cap, mask, sterile gown, sterile gloves, a large sterile sheet, hand hygiene, and 2% Chlorhexidine fo r cutaneous antisepsis. When ultrasound is used, sterile ultrasound techniques are followed requiring sterile gel and sterile probes. TECHNICAL DOCUMENTATION: JOB ID: [id number] [employer]- All Rights Reserved rev-06/24 Reading location - IP/workstation name: [email or web address]
--- NOTE | 2018-05-08 13:24 | PDOC PROGRESS REPORT ---
Subjective Progress Note for:: 05/08/18 Subjective:: This is 77 years old black female patient with past medical history of alcohol induced chronic pancreatitis, hyperlipidemia, hypertension, type 2 diabetes mellitus presents with chief complaint of abdominal pain, nausea and vomiting. Patient claims that she is from her for the last 6 years. She smokes marijuana and urine toxicology also positive for marijuana. Her CT scan of the abdomen reported as redemonstration of stigmata of chronic pancreatitis. At admission her lipase was 9500 now it is trending down to 1100. Patient transitioned from clear liquid to full liquid diet. If patient further tolerates solid diet and lipase normalized she is potential discharge the next 24-48 hours. Reason For Visit: ABDOMINAL PAIN Physical Exam Vital Signs: Temp Pulse Resp BP Pulse Ox 98.7 F 90 16 184/99 H 99 05/08/18 12:31 05/08/18 12:31 05/08/18 12:31 05/08/18 12:31 05/08/18 12:31 Intake & Output 05/07/18 05/08/18 05/09/18 06:59 06:59 06:59 Intake Total 2866 1393 Output Total 600 Balance 2866 793 Weight 58.9 kg 57.6 kg General appearance: PRESENT: no acute distress, well-developed, well-nourished Head exam: PRESENT: atraumatic, normocephalic Eye exam: PRESENT: conjunctiva pink, EOMI, PERRLA. ABSENT: scleral icterus Ear exam: PRESENT: normal external ear exam Mouth exam: PRESENT: moist, tongue midline Neck exam: ABSENT: carotid bruit, JVD, lymphadenopathy, thyromegaly Respiratory exam: PRESENT: clear to auscultation tedyd. ABSENT: rales, rhonchi, wheezes Cardiovascular exam: PRESENT: RRR. ABSENT: diastolic murmur, rubs, systolic murmur Pulses: PRESENT: normal dorsalis pedis pul Vascular exam: PRESENT: normal capillary refill GI/Abdominal exam: PRESENT: tenderness Rectal exam: PRESENT: deferred Extremities exam: PRESENT: full ROM. ABSENT: calf tenderness, clubbing, pedal edema Neurological exam: PRESENT: alert, awake, oriented to person, oriented to place, oriented to time, oriented to situation, CN II-XII grossly intact. ABSENT: motor sensory deficit Psychiatric exam: PRESENT: appropriate affect, normal mood. ABSENT: homicidal ideation, suicidal ideation Skin exam: PRESENT: dry, intact, warm. ABSENT: cyanosis, rash Results Laboratory Results: 05/06/18 04:52 05/06/18 04:52 Impressions: Abdomen Ultrasound 05/05/18 12:18 IMPRESSION: There is evidence of chronic pancreatitis. The common bile duct is borderline. Is there clinical evidence of biliary obstruction? Guidance Fluoroscopy 05/08/18 00:00 IMPRESSION: SUCCESSFUL PLACEMENT OF A 5 FR DUAL LUMEN 40 CM PICC IN THE RIGHT BASILIC VEIN. Interventional Vascular Procedure 05/08/18 00:00 IMPRESSION: SUCCESSFUL PLACEMENT OF A 5 FR DUAL LUMEN 40 CM PICC IN THE RIGHT BASILIC VEIN. PICC Line Insertion 05/08/18 00:00 IMPRESSION: SUCCESSFUL PLACEMENT OF A 5 FR DUAL LUMEN 40 CM PICC IN THE RIGHT BASILIC VEIN. Assessment and Plan - Diagnosis (1) Acute on chronic pancreatitis Is this a current diagnosis for this admission?: Yes Plan: Patient is not able to tolerate full liquid diet. She is on clear liquid diet. (2) Intractable nausea and vomiting Is this a current diagnosis for this admission?: Yes Plan: Improving (3) Type 2 diabetes mellitus Is this a current diagnosis for this admission?: Yes Plan: Continue current regimen (4) Hyperlipidemia Qualifiers: Hyperlipidemia type: unspecified Qualified Code(s): E78.5 - Hyperlipidemia, unspecified Is this a current diagnosis for this admission?: Yes Plan: Continue home medication (5) Hypertension Qualifiers: Hypertension type: essential hypertension Qualified Code(s): I10 - Esse ntial (primary) hypertension Is this a current diagnosis for this admission?: Yes Plan: Not well controlled. I will adjust her medications.
[2018-05-08] MEDS: PHENYTOIN 50 MG TAB.CHEW PO SCH (23:02)
[2018-05-08] MEDS: INSULIN GLARGINE,HUM.REC.ANLOG 1,000 UNIT/10 ML VIAL SUBCUT SCH (23:04)
[2018-05-09] MEDS: INSULIN LISPRO 100 UNIT/ML 3 ML VIAL SUBCUT SCH ×5 (00:56→22:30)
[2018-05-09] MEDS: HYDROMORPHONE HCL INJ/PF 2 MG/ML AMPULE SUBCUT PRN ×3 (00:57→13:12)
[2018-05-09] MEDS: PHENYTOIN 50 MG TAB.CHEW PO SCH ×3 (06:04→21:16)
[2018-05-09] MEDS: HEPARIN SOD (PORCINE) 5,000 UNIT/ML 1 ML SYRINGE SUBCUT SCH ×3 (06:05→21:10)
[2018-05-09] MEDS: METOPROLOL SUCCINATE 50 MG TAB.SR.24H PO SCH ×2 (10:00→21:10)
[2018-05-09] MEDS: AMLODIPINE BESYLATE 5 MG TABLET PO SCH ×2 (10:00→21:10)
[2018-05-09] MEDS: FAMOTIDINE INJ/PF 20 MG/2 ML SDV IV SCH (10:00)
--- NOTE | 2018-05-09 13:49 | PDOC PROGRESS REPORT ---
Subjective Progress Note for:: 05/09/18 Subjective:: 37 years old black female patient with past medical history of alcohol induced chronic pancreatitis, hyperlipidemia, hypertension, type 2 diabetes mellitus presents with chief complaint of abdominal pain, nausea and vomiting. Patient claims that she is from her for the last 6 years. She smokes marijuana and urine toxicology also positive for marijuana. Her CT scan of the abdomen reported as redemonstration of stigmata of chronic pancreatitis. At admission her lipase was 9500 now it is trending down to 1100. Patient transitioned from clear liquid to full liquid diet. If patient further tolerates solid diet and lipase normalized she is potential discharge the next 24-48 hours. 05/09/2018-37 years old female with history of alcoholic induced chronic pancr eatitis, hypertension, type 2 diabetes mellitus admitted for abdominal pain nausea and vomitings she able to tolerate the soft diet. She agreed to go on a diabetic diet from today. Denies any nausea vomiting diarrhea abdominal pain today. Initially lipase levels are 9500 came down to sound 14 today. To check the labs again tomorrow. No acute events in the last 24 hours. Reason For Visit: ABDOMINAL PAIN Physical Exam Vital Signs: Temp Pulse Resp BP Pulse Ox 97.9 F 76 16 149/93 H 96 05/09/18 11:40 05/09/18 11:40 05/09/18 11:40 05/09/18 11:40 05/09/18 11:40 Intake & Output 05/08/18 05/09/18 05/10/18 06:59 06:59 06:59 Intake Total 1393 1681 240 Output Total 600 Balance 793 1681 240 Weight 57.6 kg 62.4 kg General appearance: PRESENT: no acute distress Head exam: PRESENT: atraumatic Eye exam: PRESENT: PERRLA Neck exam: ABSENT: carotid bruit, JVD, lymphadenopathy, thyromegaly Respiratory exam: PRESENT: clear to auscultation teddy. ABSENT: rales, rhonchi, wheezes Cardiovascular exam: PRESENT: RRR. ABSENT: diastolic murmur, rubs, systolic murmur Pulses: PRESENT: normal dorsalis pedis pul GI/Abdominal exam: PRESENT: normal bowel sounds, soft. ABSENT: distended, guarding, mass, organolmegaly, rebound, tenderness Extremities exam: PRESENT: full ROM. ABSENT: calf tenderness, clubbing, pedal edema Neurological exam: PRESENT: alert, awake, oriented to person, oriented to place, oriented to time, oriented to situation, CN II-XII grossly intact. ABSENT: motor sensory deficit Psychiatric exam: PRESENT: appropriate affect, normal mood. ABSENT: homicidal ideation, suicidal ideation Results Laboratory Results: 05/06/18 04:52 05/06/18 04:52 05/08/18 23:10 Lipase 714.1 H Impressions: Abdomen Ultrasound 05/05/18 12:18 IMPRESSION: There is evidence of chronic pancreatitis. The common bile duct is borderline. Is there clinical evidence of biliary obstruction? Guidance Fluoroscopy 05/08/18 00:00 IMPRESSION: SUCCESSFUL PLACEMENT OF A 5 FR DUAL LUMEN 40 CM PICC IN THE RIGHT BASILIC VEIN. Interventional Vascular Procedure 05/08/18 00:00 IMPRESSION: SUCCESSFUL PLACEMENT OF A 5 FR DUAL LUMEN 40 CM PICC IN THE RIGHT BASILIC VEIN. PICC Line Insertion 05/08/18 00:00 IMPRESSION: SUCCESSFUL PLACEMENT OF A 5 FR DUAL LUMEN 40 CM PICC IN THE RIGHT BASILIC VEIN. Assessment and Plan - Diagnosis (1) Acute on chronic pancreatitis Is this a current diagnosis for this admission?: Yes Plan: Patient is not able to tolerate full liquid diet. She is on clear liquid diet. 05/09/2018-patient is admitted with acute on chronic pancreatitis secondary to alcohol use. Initially lipase level is more than 9500 came down to 700+ today. To start her on a diabetic diet from today. She denies any nausea vomiting's diarrhea. Denies any abdominal pains. (2) Intractable nausea and vomiting Is this a current diagnosis for this admission?: Yes Plan: Improving 05/09/2018-patient admitted with intractable nausea and vomitings secondary to chronic pancreatitis which was resolved. (3) Type 2 diabetes mellitus Is this a current diagnosis for this admission?: Yes Plan: Continue current regimen 05/09/2018-patient has history of type 2 diabetes mellitus. Patient blood sugar is 173 presently on insulin sliding scale. Plan to check her hemoglobin A1c. Presently on insulin sliding scale and Lantus 30 units at bedtime. Dietary consult was requested today. (4) Hypertension Qualifiers: Hypertension type: essential hypertension Qualified Code(s): I10 - Essential (primary) hypertension Is this a current diagnosis for this admission?: Yes Plan: Not well controlled. I will adjust her medications. 05/09/2018-patient blood pressure today is 149/93. Presently on amlodipine 5 mg p.o. twice daily and metoprolol 50 mg p.o. every 12 hours to start on lisinopril 5 mg p.o. daily from today. (6) Seizure disorder Is this a current diagnosis for this admission?: No Plan: 05/09/2018-patient has history of seizures disorder, currently under Dilantin. To check the Dilantin levels tomorrow. No seizure activity during the hospital stay. - Time Time Spent with patient: 15-24 minutes Medications reviewed and adjusted accordingly: Yes Anticipated discharge: Home
[2018-05-09] MEDS ORDERED: KETOROLAC TROMETHAMINE INJ/PF 30 MG/1 ML SDV IV PRN (14:23)
[2018-05-09] MEDS: FAMOTIDINE 20 MG TABLET PO SCH ×2 (14:47→21:10)
[2018-05-09] MEDS: LISINOPRIL 5 MG TABLET PO SCH (14:48)
[2018-05-09] MEDS: LORAZEPAM 0.5 MG TABLET PO PRN (16:16)
[2018-05-09] MEDS: HYDROMORPHONE HCL INJ/PF 2 MG/ML AMPULE IV PRN (18:50)
[2018-05-09] MEDS: PROMETHAZINE HCL INJ 25 MG/1 ML VIAL IV PRN (18:51)
[2018-05-09] MEDS ORDERED: INSULIN LISPRO 100 UNIT/ML 3 ML VIAL IV ONE (22:15)
[2018-05-09] MEDS: INSULIN GLARGINE,HUM.REC.ANLOG 1,000 UNIT/10 ML VIAL SUBCUT SCH (22:26)
[2018-05-09] MEDS ORDERED: INSULIN LISPRO 100 UNIT/ML 3 ML VIAL SUBCUT ONE (22:45)
[2018-05-10] MEDS: HEPARIN SOD (PORCINE) 5,000 UNIT/ML 1 ML SYRINGE SUBCUT SCH ×3 (05:55→21:38)
[2018-05-10] MEDS: PHENYTOIN 50 MG TAB.CHEW PO SCH ×3 (05:56→21:38)
[2018-05-10] MEDS: INSULIN LISPRO 100 UNIT/ML 3 ML VIAL SUBCUT SCH ×3 (06:10→17:20)
[2018-05-10 06:48] LABS: ABSOLUTE EOSINOPHILS # (AUTO) 0.1 10^3/uL (0.0-0.6); ABSOLUTE LYMPHOCYTES (AUTO) 1.7 10^3/uL (0.5-4.7); ABSOLUTE MONOCYTES (AUTO) 0.7 10^3/uL (0.1-1.4); ABSOLUTE NEUT (AUTO) 2.5 10^3/uL (1.7-8.2); BASOPHILS % (AUTO) 0.7 % (0-2); EOSINOPHILS % (AUTO) 2.8 % (0-6); HEMATOCRIT 25.8 % (36.0-47.0); HEMOGLOBIN 8.7 g/dL (12.0-15.5); MEAN CORPUSCULAR HEMOGLOBIN 28.8 pg (27.0-33.4); MEAN CORPUSCULAR HGB CONC 33.8 g/dL (32.0-36.0); MEAN CORPUSCULAR VOLUME 85 fl (80-97); MONOCYTES % (AUTO) 14.1 % (3-13); PLATELET COUNT 208 10^3/uL (150-450); RED BLOOD COUNT 3.03 10^6/uL (3.72-5.28); RED CELL DISTRIBUTION WIDTH 15.1 % (11.5-14.0); SEGMENTED NEUTROPHILS % (AUTO) 48.4 % (42-78); TOTAL CELLS COUNTED % (AUTO) 100 %; WHITE BLOOD COUNT 5.1 10^3/uL (4.0-10.5)
[2018-05-10 07:02] LABS: ALANINE AMINOTRANSFERASE 59 U/L (9-52); ALBUMIN 2.8 g/dL (3.5-5.0); ALKALINE PHOSPHATASE 94 U/L (38-126); ASPARTATE AMINO TRANSFERASE 24 U/L (14-36); BILIRUBIN,DIRECT 0.2 mg/dL (0.0-0.4); BILIRUBIN,TOTAL 0.2 mg/dL (0.2-1.3); BLOOD UREA NITROGEN 21 mg/dL (7-20); CALCIUM 9.2 mg/dL (8.4-10.2); TOTAL PROTEIN 5.4 g/dL (6.3-8.2)
[2018-05-10 07:08] LABS: CARBON DIOXIDE 32 mmol/L (22-30); CHLORIDE 103 mmol/L (98-107); SODIUM 139.1 mmol/L (137-145)
[2018-05-10 07:20] LABS: ANION GAP 4 (5-19); GLUCOSE 36 mg/dL (75-110)
[2018-05-10] MEDS: HYDROMORPHONE HCL INJ/PF 2 MG/ML AMPULE IV PRN ×3 (08:03→18:50)
[2018-05-10] MEDS: LISINOPRIL 5 MG TABLET PO SCH (09:16)
[2018-05-10] MEDS: METOPROLOL SUCCINATE 50 MG TAB.SR.24H PO SCH ×2 (09:16→21:38)
[2018-05-10] MEDS: FAMOTIDINE 20 MG TABLET PO SCH ×2 (09:16→21:37)
[2018-05-10] MEDS: AMLODIPINE BESYLATE 5 MG TABLET PO SCH ×2 (09:16→21:37)
[2018-05-10] MEDS: LORAZEPAM 0.5 MG TABLET PO PRN (09:16)
--- NOTE | 2018-05-10 12:04 | PDOC PROGRESS REPORT ---
Subjective Progress Note for:: 05/10/18 Subjective:: 37 years old black female patient with past medical history of alcohol induced chronic pancreatitis, hyperlipidemia, hypertension, type 2 diabetes mellitus presents with chief complaint of abdominal pain, nausea and vomiting. Patient claims that she is from her for the last 6 years. She smokes marijuana and urine toxicology also positive for marijuana. Her CT scan of the abdomen reported as redemonstration of stigmata of chronic pancreatitis. At admission her lipase was 9500 now it is trending down to 1100. Patient transitioned from clear liquid to full liquid diet. If patient further tolerates solid diet and lipase normalized she is potential discharge the next 24-48 hours. 05/09/2018-37 years old female with history of alcoholic induced chronic pancr eatitis, hypertension, type 2 diabetes mellitus admitted for abdominal pain nausea and vomitings she able to tolerate the soft diet. She agreed to go on a diabetic diet from today. Denies any nausea vomiting diarrhea abdominal pain today. Initially lipase levels are 9500 came down to sound 14 today. To check the labs again tomorrow. No acute events in the last 24 hours. 05/10/2018-no acute events in the last 24 hours. Patient is afebrile. Patient is still complaining of pains and nausea she is receiving Dilaudid on scheduled basis. Patient states she is afraid to go home with his pains and concern about coming back again to the hospital in a day or 2. Able to tolerate the 50% of the breakfast this morning. Reason For Visit: ABDOMINAL PAIN Physical Exam Vital Signs: Temp Pulse Resp BP Pulse Ox 97.6 F 81 16 151/97 H 98 05/10/18 08:43 05/10/18 08:43 05/10/18 08:43 05/10/18 08:43 05/10/18 08:43 Intake & Output 05/09/18 05/10/18 05/11/18 06:59 06:59 06:59 Intake Total 1681 1823 Balance 1681 1823 Weight 62.4 kg 64.1 kg General appearance: PRESENT: no acute distress, morbidly obese Head exam: PRESENT: atraumatic Eye exam: PRESENT: PERRLA Ear exam: PRESENT: normal external ear exam Mouth exam: PRESENT: moist, tongue midline Neck exam: ABSENT: carotid bruit, JVD, lymphadenopathy, thyromegaly Respiratory exam: PRESENT: decreased breath sounds Cardiovascular exam: PRESENT: RRR. ABSENT: diastolic murmur, rubs, systolic murmur GI/Abdominal exam: PRESENT: normal bowel sounds, soft. ABSENT: distended, guarding, mass, organolmegaly, rebound, tenderness Extremities exam: PRESENT: full ROM. ABSENT: calf tenderness, clubbing, pedal edema Neurological exam: PRESENT: alert, awake, oriented to person, oriented to place, oriented to time, oriented to situation, CN II-XII grossly intact. ABSENT: motor sensory deficit Results Laboratory Results: 05/10/18 06:03 05/10/18 06:03 05/09/18 05/10/18 05/10/18 15:15 06:03 06:03 WBC 5.1 RBC 3.03 L Hgb 8.7 L Hct 25.8 L MCV 85 MCH 28.8 MCHC 33.8 RDW 15.1 H Plt Count 208 Seg Neutrophils % 48.4 Lymphocytes % 34.0 Monocytes % 14.1 H Eosinophils % 2.8 Basophils % 0.7 Absolute Neutrophils 2.5 Absolute Lymphocytes 1.7 Absolute Monocytes 0.7 Absolute Eosinophils 0.1 Absolute Basophils 0.0 Sodium 139.1 Potassium 4.0 Chloride 103 Carbon Dioxide 32 H Anion Gap 4 L BUN 21 H Creatinine 1.27 H Est GFR ( Amer) 57 L Est GFR (Non-Af Amer) 47 L Glucose 36 L* Calcium 9.2 Magnesium 1.8 Total Bilirubin 0.2 AST 24 ALT 59 H Alkaline Phosphatase 94 Total Protein 5.4 L Albumin 2.8 L Lipase 812.8 H Impressions: Abdomen Ultrasound 05/05/18 12:18 IMPRESSION: There is evidence of chronic pancreatitis. The common bile duct is borderline. Is there clinical evidence of biliary obstruction? Guidance Fluoroscopy 05/08/18 00:00 IMPRESSION: SUCCESSFUL PLACEMENT OF A 5 FR DUAL LUMEN 40 CM PICC IN THE RIGHT BASILIC VEIN. Interventional Vascular Procedure 05/08/18 00:00 IMPRESSION: SUCCESSFUL PLACEMENT OF A 5 FR DUAL LUMEN 40 CM PICC IN THE RIGHT BASILIC VEIN. PICC Line Insertion 05/08/18 00:00 IMPRESSION: SUCCESSFUL PLACEMENT OF A 5 FR DUAL LUMEN 40 CM PICC IN THE RIGHT BASILIC VEIN. Assessment and Plan - Diagnosis (1) Acute on chronic pancreatitis Is this a current diagnosis for this admission?: Yes Plan: Patient is not able to tolerate full liquid diet. She is on clear liquid diet. 05/09/2018-patient is admitted with acute on chronic pancreatitis secondary to alcohol use. Initially lipase level is more than 9500 came down to 700+ today. To start her on a diabetic diet from today. She denies any nausea vomiting's diarrhea. Denies any abdominal pains. 05/10/2018-patient has history of for chronic pancreatitis admitted for acute on chronic pancreatitis still complaining of nausea and complaint of abdominal pains decreased appetite and we placed her on diabetic diet yesterday able to tolerate the small amounts. Patient receiving Dilaudid on a regular basis. Plan is to continue the present management recheck the lipase levels tomorrow lipase level this morning is 812. (2) Intractable nausea and vomiting Is this a current diagnosis for this admission?: Yes Plan: Improving 05/09/2018-patient admitted with intractable nausea and vomitings secondary to chronic pancreatitis which was resolved. 05/10/2018-patient is admitted with intractable nausea and vomiting secondary to chronic pancreatitis this morning patient is complaining of nausea associated with abdominal pains. Patient is receiving antiemetics and pain medications on regular basis. (3) Type 2 diabetes mellitus Is this a current diagnosis for this admission?: Yes Plan: Continue current regimen 05/09/2018-patient has history of type 2 diabetes mellitus. Patient blood sugar is 173 presently on insulin sliding scale. Plan to check her hemoglobin A1c. Presently on insulin sliding scale and Lantus 30 units at bedtime. Dietary consult was requested today. 05/10/2018-patient has a type 2 diabetes mellitus history latest blood sugar is 75 this morning. Patient is on insulin sliding scale. Lantus 30 units at bedtime plan to decrease the Lantus to 20 units at bedtime because of the hypoglycemia last night. Check hemoglobin A1c tomorrow. (4) Hypertension Qualifiers: Hypertension type: essential hypertension Qualified Code(s): I10 - E ssential (primary) hypertension Is this a current diagnosis for this admission?: Yes Plan: Not well controlled. I will adjust her medications. 05/09/2018-patient blood pressure today is 149/93. Presently on amlodipine 5 mg p.o. twice daily and metoprolol 50 mg p.o. every 12 hours to start on lisinopril 5 mg p.o. daily from today. 05/10/2018-patient blood pressure today is 151/97. Presently on milligrams p.o. daily, metoprolol 50 mg p.o. every 12 hours, lisinopril 5 mg p.o. daily plan is to continue the present management. (5) Seizure disorder Is this a current diagnosis for this admission?: No Plan: 05/09/2018-patient has history of seizures disorder, currently under Dilantin. To check the Dilantin levels tomorrow. No seizure activity during the hospital stay. 05/10/2018-patient has history of seizure disorder. She is on Dilantin 100 mg p.o. twice daily Dilantin level is 6.2 today plan to recheck the Dilantin level tomorrow and no seizure activity was noted during the hospital stay. - Time Time Spent with patient: 15-24 minutes Anticipated discharge: Home
[2018-05-10] MEDS: PROMETHAZINE HCL INJ 25 MG/1 ML VIAL IV PRN (13:05)
[2018-05-10] MEDS: ONDANSETRON HCL INJ/PF 4 MG/2 ML SDV IV PRN (20:31)
[2018-05-10] MEDS: INSULIN GLARGINE,HUM.REC.ANLOG 1,000 UNIT/10 ML VIAL SUBCUT SCH (22:00)
[2018-05-11] MEDS: INSULIN LISPRO 100 UNIT/ML 3 ML VIAL SUBCUT SCH ×4 (00:01→17:26)
[2018-05-11] MEDS: HYDROMORPHONE HCL INJ/PF 2 MG/ML AMPULE IV PRN ×5 (06:15→22:13)
[2018-05-11] MEDS: PHENYTOIN 50 MG TAB.CHEW PO SCH ×3 (06:15→22:03)
[2018-05-11] MEDS: HEPARIN SOD (PORCINE) 5,000 UNIT/ML 1 ML SYRINGE SUBCUT SCH ×3 (06:16→22:04)
[2018-05-11 06:53] LABS: ABSOLUTE EOSINOPHILS # (AUTO) 0.2 10^3/uL (0.0-0.6); ABSOLUTE LYMPHOCYTES (AUTO) 2.4 10^3/uL (0.5-4.7); ABSOLUTE MONOCYTES (AUTO) 0.7 10^3/uL (0.1-1.4); ABSOLUTE NEUT (AUTO) 3.9 10^3/uL (1.7-8.2); BASOPHILS % (AUTO) 0.4 % (0-2); EOSINOPHILS % (AUTO) 2.6 % (0-6); HEMATOCRIT 27.8 % (36.0-47.0); HEMOGLOBIN 9.3 g/dL (12.0-15.5); LYMPHOCYTES % (AUTO) 32.7 % (13-45); MEAN CORPUSCULAR HEMOGLOBIN 28.8 pg (27.0-33.4); MEAN CORPUSCULAR HGB CONC 33.4 g/dL (32.0-36.0); MEAN CORPUSCULAR VOLUME 86 fl (80-97); MONOCYTES % (AUTO) 10.1 % (3-13); PLATELET COUNT 268 10^3/uL (150-450); RED BLOOD COUNT 3.22 10^6/uL (3.72-5.28); RED CELL DISTRIBUTION WIDTH 15.1 % (11.5-14.0); SEGMENTED NEUTROPHILS % (AUTO) 54.2 % (42-78); TOTAL CELLS COUNTED % (AUTO) 100 %; WHITE BLOOD COUNT 7.2 10^3/uL (4.0-10.5)
[2018-05-11 07:06] LABS: ALANINE AMINOTRANSFERASE 50 U/L (9-52); ALBUMIN 3.1 g/dL (3.5-5.0); ALKALINE PHOSPHATASE 130 U/L (38-126); ANION GAP 5 (5-19); ASPARTATE AMINO TRANSFERASE 25 U/L (14-36); BILIRUBIN,DIRECT 0.1 mg/dL (0.0-0.4); BILIRUBIN,TOTAL 0.1 mg/dL (0.2-1.3); BLOOD UREA NITROGEN 24 mg/dL (7-20); CALCIUM 9.1 mg/dL (8.4-10.2); CARBON DIOXIDE 31 mmol/L (22-30); CHLORIDE 100 mmol/L (98-107); POTASSIUM 5.1 mmol/L (3.6-5.0); SODIUM 136.3 mmol/L (137-145); TOTAL PROTEIN 5.8 g/dL (6.3-8.2)
[2018-05-11 07:20] LABS: GLUCOSE 425 mg/dL (75-110)
[2018-05-11] MEDS: FAMOTIDINE 20 MG TABLET PO SCH ×2 (09:32→22:03)
[2018-05-11] MEDS: METOPROLOL SUCCINATE 50 MG TAB.SR.24H PO SCH ×2 (09:32→22:03)
[2018-05-11] MEDS: AMLODIPINE BESYLATE 5 MG TABLET PO SCH ×2 (09:32→22:03)
[2018-05-11] MEDS: LISINOPRIL 5 MG TABLET PO SCH (09:32)
[2018-05-11] MEDS: DEXTROSE 50%-WATER 25 GM/50 ML DISP.SYRIN IV PRN (10:30)
[2018-05-11] MEDS ORDERED: NORMAL SALINE 10 ML SDV (AFTER EACH USE) IV PRN (11:00)
--- NOTE | 2018-05-11 15:11 | PDOC PROGRESS REPORT ---
Subjective Progress Note for:: 05/11/18 Subjective:: 37 years old black female patient with past medical history of alcohol induced chronic pancreatitis, hyperlipidemia, hypertension, type 2 diabetes mellitus presents with chief complaint of abdominal pain, nausea and vomiting. Patient claims that she is from her for the last 6 years. She smokes marijuana and urine toxicology also positive for marijuana. Her CT scan of the abdomen reported as redemonstration of stigmata of chronic pancreatitis. At admission her lipase was 9500 now it is trending down to 1100. Patient transitioned from clear liquid to full liquid diet. If patient further tolerates solid diet and lipase normalized she is potential discharge the next 24-48 hours. 05/09/2018-37 years old female with history of alcoholic induced chronic pancr eatitis, hypertension, type 2 diabetes mellitus admitted for abdominal pain nausea and vomitings she able to tolerate the soft diet. She agreed to go on a diabetic diet from today. Denies any nausea vomiting diarrhea abdominal pain today. Initially lipase levels are 9500 came down to sound 14 today. To check the labs again tomorrow. No acute events in the last 24 hours. 05/10/2018-no acute events in the last 24 hours. Patient is afebrile. Patient is still complaining of pains and nausea she is receiving Dilaudid on scheduled basis. Patient states she is afraid to go home with his pains and concern about coming back again to the hospital in a day or 2. Able to tolerate the 50% of the breakfast this morning. 05/11/2018-patient is afebrile. No acute events in the last 24 hours. Blood sugars are fluctuating. Earlier this morning blood sugar dropped to 41. Latest blood sugar is 49 after giving D50. Patient is still complaining of abdominal pain. She is receiving Dilaudid IV. Reason For Visit: ABDOMINAL PAIN Physical Exam Vital Signs: Temp Pulse Resp BP Pulse Ox 98.5 F 86 18 164/97 H 100 05/11/18 12:00 05/11/18 12:00 05/11/18 12:00 05/11/18 12:00 05/11/18 12:00 Intake & Output 05/10/18 05/11/18 05/12/18 06:59 06:59 06:59 Intake Total 1823 1667 591 Balance 1823 1667 591 Weight 64.1 kg 60.9 kg General appearance: PRESENT: no acute distress Head exam: PRESENT: atraumatic Eye exam: PRESENT: PERRLA Mouth exam: PRESENT: moist, tongue midline Neck exam: ABSENT: carotid bruit, JVD, lymphadenopathy, thyromegaly Respiratory exam: PRESENT: clear to auscultation teddy. ABSENT: rales, rhonchi, wheezes Cardiovascular exam: PRESENT: RRR. ABSENT: diastolic murmur, rubs, systolic murmur GI/Abdominal exam: PRESENT: normal bowel sounds, soft. ABSENT: distended, guarding, mass, organolmegaly, rebound, tenderness Extremities exam: PRESENT: full ROM. ABSENT: calf tenderness, clubbing, pedal edema Neurological exam: PRESENT: alert, awake, oriented to person, oriented to place, oriented to time, oriented to situation, CN II-XII grossly intact. ABSENT: motor sensory deficit Psychiatric exam: PRESENT: appropriate affect, normal mood. ABSENT: homicidal ideation, suicidal ideation Results Laboratory Results: 05/11/18 06:25 05/11/18 06:25 05/11/18 05/11/18 06:25 06:25 WBC 7.2 RBC 3.22 L Hgb 9.3 L Hct 27.8 L MCV 86 MCH 28.8 MCHC 33.4 RDW 15.1 H Plt Count 268 Seg Neutrophils % 54.2 Lymphocytes % 32.7 Monocytes % 10.1 Eosinophils % 2.6 Basophils % 0.4 Absolute Neutrophils 3.9 Absolute Lymphocytes 2.4 Absolute Monocytes 0.7 Absolute Eosinophils 0.2 Absolute Basophils 0.0 Sodium 136.3 L Potassium 5.1 H Chloride 100 Carbon Dioxide 31 H Anion Gap 5 BUN 24 H Creatinine 1.63 H Est GFR ( Amer) 43 L Est GFR (Non-Af Amer) 36 L Glucose 425 H* Calcium 9.1 Magnesium 1.9 Total Bilirubin 0.1 L AST 25 ALT 50 Alkaline Phosphatase 130 H Total Protein 5.8 L Albumin 3.1 L Impressions: Abdomen Ultrasound 05/05/18 12:18 IMPRESSION: There is evidence of chronic pancreatitis. The common bile duct is borderline. Is there clinical evidence of biliary obstruction? Guidance Fluoroscopy 05/08/18 00:00 IMPRESSION: SUCCESSFUL PLACEMENT OF A 5 FR DUAL LUMEN 40 CM PICC IN THE RIGHT BASILIC VEIN. Interventional Vascular Procedure 05/08/18 00:00 IMPRESSION: SUCCESSFUL PLACEMENT OF A 5 FR DUAL LUMEN 40 CM PICC IN THE RIGHT BASILIC VEIN. PICC Line Insertion 05/08/18 00:00 IMPRESSION: SUCCESSFUL PLACEMENT OF A 5 FR DUAL LUMEN 40 CM PICC IN THE RIGHT BASILIC VEIN. Assessment and Plan - Diagnosis (1) Acute on chronic pancreatitis Is this a current diagnosis for this admission?: Yes Plan: Patient is not able to tolerate full liquid diet. She is on clear liquid diet. 05/09/2018-patient is admitted with acute on chronic pancreatitis secondary to alcohol use. Initially lipase level is more than 9500 came down to 700+ today. To start her on a diabetic diet from today. She denies any nausea vomiting's diarrhea. Denies any abdominal pains. 05/10/2018-patient has history of for chronic pancreatitis admitted for acute on chronic pancreatitis still complaining of nausea and complaint of abdominal pains decreased appetite and we placed her on diabetic diet yesterday able to tolerate the small amounts. Patient receiving Dilaudid on a regular basis. Plan is to continue the present management recheck the lipase levels tomorrow lipase level this morning is 812. 05/2018-patient has history of chronic pancreatitis admitted for acute on chronic pancreatitis. Still complains of nausea vomiting's are improving. We are going to check her lipase level tomorrow. She is receiving Dilaudid for pain management on regular basis. (2) Intractable nausea and vomiting Is this a current diagnosis for this admission?: Yes Plan: Improving 05/09/2018-patient admitted with intractable nausea and vomitings secondary to chronic pancreatitis which was resolved. 05/10/2018-patient is admitted with intractable nausea and vomiting secondary to chronic pancreatitis this morning patient is complaining of nausea associated with abdominal pains. Patient is receiving antiemetics and pain medications on regular basis. 05/11/2018-patient admitted with intractable nausea and vomiting secondary to acute on chronic pancreatitis. Symptoms are resolving. (3) Type 2 diabetes mellitus Is this a current diagnosis for this admission?: Yes Plan: Continue current regimen 05/09/2018-patient has history of type 2 diabetes mellitus. Patient blood sugar is 173 presently on insulin sliding scale. Plan to check her hemoglobin A1c. Presently on insulin sliding scale and Lantus 30 units at bedtime. Dietary consult was requested today. 05/10/2018-patient has a type 2 diabetes mellitus history latest blood sugar is 75 this morning. Patient is on insulin sliding scale. Lantus 30 units at bedtime plan to decrease the Lantus to 20 units at bedtime because of the hypoglycemia last night. Check hemoglobin A1c tomorrow. 05/2018-patient's blood sugar dropped to 41 this morning after giving D50 blood sugar improved to 149. Patient is on insulin sliding scale and Lantus 20 units at bedtime. Hemoglobin A1c is 10.1. Diet exercise lifestyle modifications discussed with the patient and dietary consult was requested. (4) Hypertension Qualifiers: Hypertension type: essential hypertension Qualified Code(s): I10 - Alysa ia (primary) hypertension Is this a current diagnosis for this admission?: Yes Plan: Not well controlled. I will adjust her medications. 05/09/2018-patient blood pressure today is 149/93. Presently on amlodipine 5 mg p.o. twice daily and metoprolol 50 mg p.o. every 12 hours to start on lisinopril 5 mg p.o. daily from today. 05/10/2018-patient blood pressure today is 151/97. Presently on amlodepine 5 mg p.o. twice daily, metoprolol 50 mg p.o. every 12 hours, lisinopril 5 mg p.o. daily plan is to continue the present management. 05/11/2018-patient blood pressure today is 164/97. Presently on amlodipine 5 mg p.o. twice daily, metoprolol 50 mg p.o. twice daily lisinopril 5 mg p.o. daily plan is to increase the lisinopril to 10 mg p.o. daily. (5) Seizure disorder Is this a current diagnosis for this admission?: No Plan: 05/09/2018-patient has history of seizures disorder, currently under Dilantin. To check the Dilantin levels tomorrow. No seizure activity during the hospital stay. 05/10/2018-patient has history of seizure disorder. She is on Dilantin 100 mg p .o. twice daily Dilantin level is 6.2 today plan to recheck the Dilantin level tomorrow and no seizure activity was noted during the hospital stay. 05/11/2018-patient has history of seizure disorder presently on Dilantin 100 mg p.o. daily. Latest Dilantin level is 8.1 Still subtherapeutic but improving. - Time Time Spent with patient: 15-24 minutes Smoking Cessation Education: over 10 minutes Medications reviewed and adjusted accordingly: Yes Anticipated discharge: Home
[2018-05-11] MEDS: PROMETHAZINE HCL INJ 25 MG/1 ML VIAL IV PRN (19:26)
[2018-05-11] MEDS: NORMAL SALINE 10 ML SDV (SCHEDULED) IV SCH (22:04)
[2018-05-11] MEDS: INSULIN GLARGINE,HUM.REC.ANLOG 1,000 UNIT/10 ML VIAL SUBCUT SCH (22:05)
[2018-05-12] MEDS: INSULIN LISPRO 100 UNIT/ML 3 ML VIAL SUBCUT SCH ×3 (01:29→12:06)
[2018-05-12] MEDS: HEPARIN SOD (PORCINE) 5,000 UNIT/ML 1 ML SYRINGE SUBCUT SCH (05:25)
[2018-05-12] MEDS: PHENYTOIN 50 MG TAB.CHEW PO SCH (05:26)
[2018-05-12 06:09] LABS: ABSOLUTE BASOPHILS # (AUTO) 0.1 10^3/uL (0.0-0.2); ABSOLUTE EOSINOPHILS # (AUTO) 0.2 10^3/uL (0.0-0.6); ABSOLUTE LYMPHOCYTES (AUTO) 3.1 10^3/uL (0.5-4.7); ABSOLUTE MONOCYTES (AUTO) 0.6 10^3/uL (0.1-1.4); ABSOLUTE NEUT (AUTO) 2.6 10^3/uL (1.7-8.2); BASOPHILS % (AUTO) 0.9 % (0-2); EOSINOPHILS % (AUTO) 3.3 % (0-6); HEMATOCRIT 29.3 % (36.0-47.0); HEMOGLOBIN 9.9 g/dL (12.0-15.5); LYMPHOCYTES % (AUTO) 46.9 % (13-45); MEAN CORPUSCULAR HEMOGLOBIN 28.9 pg (27.0-33.4); MEAN CORPUSCULAR HGB CONC 33.9 g/dL (32.0-36.0); MEAN CORPUSCULAR VOLUME 85 fl (80-97); MONOCYTES % (AUTO) 8.5 % (3-13); PLATELET COUNT 297 10^3/uL (150-450); RED BLOOD COUNT 3.44 10^6/uL (3.72-5.28); SEGMENTED NEUTROPHILS % (AUTO) 40.4 % (42-78); TOTAL CELLS COUNTED % (AUTO) 100 %; WHITE BLOOD COUNT 6.5 10^3/uL (4.0-10.5)
[2018-05-12 06:20] LABS: ALANINE AMINOTRANSFERASE 46 U/L (9-52); ALBUMIN 3.2 g/dL (3.5-5.0); ALKALINE PHOSPHATASE 129 U/L (38-126); ANION GAP 7 (5-19); ASPARTATE AMINO TRANSFERASE 21 U/L (14-36); BILIRUBIN,DIRECT 0.1 mg/dL (0.0-0.4); BILIRUBIN,TOTAL 0.1 mg/dL (0.2-1.3); BLOOD UREA NITROGEN 26 mg/dL (7-20); CALCIUM 9.5 mg/dL (8.4-10.2); CARBON DIOXIDE 28 mmol/L (22-30); CHLORIDE 105 mmol/L (98-107); GLUCOSE 108 mg/dL (75-110); POTASSIUM 4.4 mmol/L (3.6-5.0); SODIUM 140.3 mmol/L (137-145); TOTAL PROTEIN 6.1 g/dL (6.3-8.2)
[2018-05-12] MEDS: AMLODIPINE BESYLATE 5 MG TABLET PO SCH (10:02)
[2018-05-12] MEDS: METOPROLOL SUCCINATE 50 MG TAB.SR.24H PO SCH (10:02)
[2018-05-12] MEDS: LISINOPRIL 5 MG TABLET PO SCH (10:02)
[2018-05-12] MEDS: FAMOTIDINE 20 MG TABLET PO SCH (10:02)
[2018-05-12] MEDS: NORMAL SALINE 10 ML SDV (SCHEDULED) IV SCH (10:03)
[2018-05-12] MEDS: HYDROMORPHONE HCL INJ/PF 2 MG/ML AMPULE IV PRN (10:23)
[2018-05-12 12:47] VITALS: BP 150/93
--- NOTE | 2018-05-12 12:49 | PDOC DISCHARGE SUMMARY ---
General - Admit/Disc Date/PCP Admission Date/Primary Care Provider: 05/05/18 17:17 RONALD BARKERROSIO-Claudine Discharge Date: 05/12/18 - Discharge Diagnosis (1) Acute on chronic pancreatitis Is this a current diagnosis for this admission?: Yes Summary: Patient is not able to tolerate full liquid diet. She is on clear liquid diet. 05/09/2018-patient is admitted with acute on chronic pancreatitis secondary to alcohol use. Initially lipase level is more than 9500 came down to 700+ today. To start her on a diabetic diet from today. She denies any nausea vomiting's diarrhea. Denies any abdominal pains. 05/10/2018-patient has history of for chronic pancreatitis admitted for acute on chronic pancreatitis still complaining of nausea and complaint of abdominal pains decreased appetite and we placed her on diabetic diet yesterday able to tolerate the small amounts. Patient receiving Dilaudid on a regular basis. Plan is to continue the present management recheck the lipase levels tomorrow lipase level this morning is 812. 05/11/2018-patient has history of chronic pancreatitis admitted for acute on chronic pancreatitis. Still complains of nausea vomiting's are improving. We are going to check her lipase level tomorrow. She is receiving Dilaudid for pain management on regular basis. 05/12/2018-patient has history of chronic pancreatitis admitted for acute on chronic pancreatitis with elevated lipase enzymes lipase level came down to 401 today. Nausea vomiting's are resolved. Patient is going home on Percocets and Phenergan. Strongly advised to follow-up with primary care physician in 1 week time. (2) Intractable nausea and vomiting Is this a current diagnosis for this admission?: Yes Summary: Improving 05/09/2018-patient admitted with intractable nausea and vomitings secondary to chronic pancreatitis which was resolved. 05/10/2018-patient is admitted with intractable nausea and vomiting secondary to chronic pancreatitis this morning patient is complaining of nausea associated with abdominal pains. Patient is receiving antiemetics and pain medications on regular basis. 05/12/2018-patient was admitted with intractable nausea and vomitings resolved going home on Phenergan. (3) Type 2 diabetes mellitus Is this a current diagnosis for this admission?: Yes Summary: Continue current regimen 05/09/2018-patient has history of type 2 diabetes mellitus. Patient blood sugar is 173 presently on insulin sliding scale. Plan to check her hemoglobin A1c. Presently on insulin sliding scale and Lantus 30 units at bedtime. Dietary consult was requested today. 05/10/2018-patient has a type 2 diabetes mellitus history latest blood sugar is 75 this morning. Patient is on insulin sliding scale. Lantus 30 units at bedtime plan to decrease the Lantus to 20 units at bedtime because of the hypoglycemia last night. Check hemoglobin A1c tomorrow. 05/11/2018-patient's blood sugar dropped to 41 this morning after giving D50 blood sugar improved to 149. Patient is on insulin sliding scale and Lantus 20 units at bedtime. Hemoglobin A1c is 10.1. Diet exercise lifestyle modifications discussed with the patient and dietary consult was requested. 05/12/2018-patient's latest blood sugar is 101 this morning. No complaints. Comfortably in the bed alert and awake communicating well. Started on glipizide 2.5 mg p.o. daily and give a prescription today advised the pt to use insulin sliding scale at home. (4) Hypertension Is this a current diagnosis for this admission?: Yes Summary: Not well controlled. I will adjust her medications. 05/09/2018-patient blood pressure today is 149/93. Presently on amlodipine 5 mg p.o. twice daily and metoprolol 50 mg p.o. every 12 hours to start on lisinopril 5 mg p.o. daily from today. 05/10/2018-patient blood pressure today is 151/97. Presently on amlodepine 5 mg p.o. twice daily, metoprolol 50 mg p.o. every 12 hours, lisinopril 5 mg p.o. daily plan is to continue the present management. 05/11/2018-patient blood pressure today is 164/97. Presently on amlodipine 5 mg p.o. twice daily, metoprolol 50 mg p.o. twice daily lisinopril 5 mg p.o. daily plan is to increase the lisinopril to 10 mg p.o. daily. 05/12/2018-patient's blood pressure today is 150/90 on amlodipine 5 mg daily, metoprolol 50 mg twice a day lisinopril 10 mg daily plan is to continue the present management. (5) Seizure disorder Is this a current diagnosis for this admission?: No Summary: 05/12/2018-patient has history of seizure disorder no seizure activity was noted in the hospital stay. She is on Dilantin 100 mg p.o. every 8 hours prescription were given to the patient today. - Additional Information Resuscitation Status: Full Code Discharge Diet: Cardiac, Diabetic Discharge Activity: Activity As Tolerated Prescriptions: Glipizide [Glucotrol Xl 2.5 mg Tab.er] 2.5 mg PO BIDACBS #60 tab.er.24 Oxycodone HCl/Acetaminophen [Percocet 5-325 mg Tablet] 1 tab PO BID #15 tab Phenytoin [Dilantin 50 mg Chewable Infatab] 100 mg PO Q8 #90 tab.chew Promethazine HCl [Phenergan 25 mg Tablet] 25 mg PO BID #30 tablet Home Medications: Insulin Aspart [Novolog Insulin (Aspart) 100 unit/mL] 10 units SUBCUT AC 05/05/18 Insulin Glargine,Hum.rec.anlog [Lantus Insulin 100 Unit/1 ml 10 ml] 30 units SUBCUT QHS 05/05/18 Amlodipine Besylate [Norvasc 5 mg Tablet] 5 mg PO Q12 tablet 05/12/18 Glipizide [Glucotrol Xl 2.5 mg Tab.er] 2.5 mg PO BIDACBS #60 tab.er.24 05/12/18 Lisinopril [Prinivil 5 mg Tablet] 5 mg PO DAILY tablet 05/12/18 Oxycodone HCl/Acetaminophen [Percocet 5-325 mg Tablet] 1 tab PO BID #15 tab 05/12/18 Phenytoin [Dilantin 50 mg Chewable Infatab] 100 mg PO Q8 #90 tab.chew 05/12/18 Promethazine HCl [Phenergan 25 mg Tablet] 25 mg PO BID #30 tablet 05/12/18 History of Present Illness History of Present Illness: JJ HOFFMAN is a 37 year old female 37 year old -[place] female with past medical history of diabetes mellitus, essential hypertension, dyslipidemia and chronic pancreatitis; who presents to [facility]'s emergency room with complaints of 2-day history of vomiting and severe epigastric pain. She was recently admitted to our facility on 04/20/2018, with same complaints. She states she never completely felt back to normal since that admission. She has been seen in the ER 3 times since then because of nausea and abdominal pain. Today her lipase was up to 1100 and she had a slight bump in her creatinine up to 1.33. She was therefore referred to the hospitalist service for admission. Physical Exam Vital Signs: Temp Pulse Resp BP Pulse Ox 98.5 F 86 17 175/94 H 97 05/12/18 11:16 05/12/18 11:16 05/12/18 11:16 05/12/18 11:16 05/12/18 11:16 Intake & Output 05/11/18 05/12/18 05/13/18 06:59 06:59 06:59 Intake Total 1667 1035 236 Balance 1667 1035 236 Weight 60.9 kg 60.5 kg General appearance: PRESENT: no acute distress Head exam: PRESENT: atraumatic Eye exam: PRESENT: PERRLA Mouth exam: PRESENT: moist, tongue midline Neck exam: ABSENT: carotid bruit, JVD, lymphadenopathy, thyromegaly Respiratory exam: PRESENT: clear to auscultation teddy. ABSENT: rales, rhonchi, wheezes Cardiovascular exam: PRESENT: RRR. ABSENT: diastolic murmur, rubs, systolic murmur Pulses: PRESENT: normal dorsalis pedis pul Vascular exam: PRESENT: normal capillary refill Extremities exam: PRESENT: full ROM. ABSENT: calf tenderness, clubbing, pedal edema Neurological exam: PRESENT: alert, awake, oriented to person, oriented to place, oriented to time, oriented to situation, CN II-XII grossly intact. ABSENT: motor sensory deficit Psychiatric exam: PRESENT: appropriate affect, normal mood. ABSENT: homicidal ideation, suicidal ideation Results Laboratory Results: 05/12/18 05:42 05/12/18 05:42 05/12/18 05/12/18 05:42 05:42 WBC 6.5 RBC 3.44 L Hgb 9.9 L Hct 29.3 L MCV 85 MCH 28.9 MCHC 33.9 RDW 15.0 H Plt Count 297 Seg Neutrophils % 40.4 L Lymphocytes % 46.9 H Monocytes % 8.5 Eosinophils % 3.3 Basophils % 0.9 Absolute Neutrophils 2.6 Absolute Lymphocytes 3.1 Absolute Monocytes 0.6 Absolute Eosinophils 0.2 Absolute Basophils 0.1 Sodium 140.3 Potassium 4.4 Chloride 105 Carbon Dioxide 28 Anion Gap 7 BUN 26 H Creatinine 1.48 H Est GFR ( Amer) 48 L Est GFR (Non-Af Amer) 40 L Glucose 108 Calcium 9.5 Magnesium 2.1 Total Bilirubin 0.1 L AST 21 ALT 46 Alkaline Phosphatase 129 H Total Protein 6.1 L Albumin 3.2 L Lipase 401.0 H Impressions: Abdomen Ultrasound 05/05/18 12:18 IMPRESSION: There is evidence of chronic pancreatitis. The common bile duct is borderline. Is there clinical evidence of biliary obstruction? Guidance Fluoroscopy 05/08/18 00:00 IMPRESSION: SUCCESSFUL PLACEMENT OF A 5 FR DUAL LUMEN 40 CM PICC IN THE RIGHT BASILIC VEIN. Interventional Vascular Procedure 05/08/18 00:00 IMPRESSION: SUCCESSFUL PLACEMENT OF A 5 FR DUAL LUMEN 40 CM PICC IN THE RIGHT BASILIC VEIN. PICC Line Insertion 05/08/18 00:00 IMPRESSION: SUCCESSFUL PLACEMENT OF A 5 FR DUAL LUMEN 40 CM PICC IN THE RIGHT BASILIC VEIN. Qualifiers - * PATIENT BEING DISCHARGED WITH ANY OF THE FOLLOWING DIAGNOSIS: No VTE patient discharged on overlapping Therapy?: No Plan Discharge Plan: Discharge home and advised the patient follow-up with primary care physician in 3-5 days. Time Spent: Less than 30 Minutes
== END 2018-05-12 13:11 | disposition home or self-care (01) | DRG 440 ==
LOC: ER 09:46 → EH 17:17 → 5 20:12
PROVIDERS: ADMIT Internal Medicine; ATTEND Internal Medicine
PROC: 02HV33Z Insertion of Infusion Device into Superior Vena Cava, Percutaneous Approach (ICD-10-PCS; principal; 2018-05-08)
PROC: B548ZZA Ultrasonography of Superior Vena Cava, Guidance (ICD-10-PCS; 2018-05-08)
PROC: B518ZZA Fluoroscopy of Superior Vena Cava, Guidance (ICD-10-PCS; 2018-05-08)
DX: K85.20 Alcohol induced acute pancreatitis without necrosis or infection (principal); K86.0 Alcohol-induced chronic pancreatitis; Z79.4 Long term (current) use of insulin; I10 Essential (primary) hypertension; G40.909 Epilepsy, unspecified, not intractable, without status epilepticus; E78.5 Hyperlipidemia, unspecified; K74.60 Unspecified cirrhosis of liver; F17.200 Nicotine dependence, unspecified, uncomplicated; E11.649 Type 2 diabetes mellitus with hypoglycemia without coma; F12.90 Cannabis use, unspecified, uncomplicated; Z79.899 Other long term (current) drug therapy; Z83.3 Family history of diabetes mellitus; Z82.49 Family history of ischemic heart disease and other diseases of the circulatory system
CPT/HCPCS: 36415; 36569; 76705; 76937; 77001; 80048; 80053; 80185; 80307; 81001; 81025; 82803; 82962; 83036; 83690; 83735; 85025; 99285; C1769; J0360; J1170; J1642; J1644; J1815; J1885; J2405; J2550; J3490; J7030; J7120; S0028

== ENCOUNTER 2018-06-13 12:57 | Emergency (ER) | payer MEDICAID ==
--- NOTE | 2018-06-13 14:08 | ER Document Report ---
Addendum entered and electronically signed by DILLON FRY NP 06/13/18 15:22: Course - Re-evaluation Re-evalutation: 06/13/18 15:22 Unable to obtain IV access. Toradol changed to IM Zofran changed to ODT. - Vital Signs Vital signs: Temp Pulse Resp BP Pulse Ox 98.5 F 110 H 16 157/105 H 100 06/13/18 13:28 06/13/18 13:28 06/13/18 13:28 06/13/18 13:28 06/13/18 13:28 Original Note: ED Medical Screen (RME) - General Chief Complaint: Abdominal Pain Stated Complaint: STOMACH PAIN Time Seen by Provider: 06/13/18 14:05 Primary Care Provider: RONALD BARKER FNP-C [Primary Care Provider] - Follow up as needed Mode of Arrival: Ambulatory Information source: Patient Notes: Patient presents emergency department with severe left-sided flank pain epigastric pain. Patient reports she started vomiting yesterday. History of pancreatitis. Denies fever and diarrhea. Patient is very tearful. Epigastric area and left flank pain very tender to palpation I have greeted and performed a rapid initial assessment of this patient. A comprehensive ED assessment and evaluation of the patient, analysis of test results and completion of the medical decision making process will be conducted by additional ED providers. Dictation of this chart was performed using voice recognition software; therefore, there may be some unintended grammatical errors. TRAVEL OUTSIDE OF THE [place] IN LAST 30 DAYS: No - Related Data Allergies/Adverse Reactions: hydrocodone [From [place]] Allergy (Verified 06/13/18 13:25) morphine Allergy (Verified 06/13/18 13:25) Past Medical History - Past Medical History Cardiac Medical History: Reports: Hx Hypercholesterolemia, Hx Hypertension Pulmonary Medical History: Denies: Hx COPD Neurological Medical History: Reports: Hx Seizures Endocrine Medical History: Reports: Hx Diabetes Mellitus Type 1, Hx Diabetes Mellitus Type 2 Renal/ Medical History: Denies: Hx End Stage Renal Disease, Hx Peritoneal Dialysis GI Medical History: Reports: Hx Cirrhosis, Hx Pancreatitis Musculoskeltal Medical History: Denies Hx Arthritis Skin Medical History: Denies Hx Eczema, Denies Hx Psoriasis Psychiatric Medical History: Denies: Hx Dementia, Hx Depression Past Surgical History: Reports: Hx Section - x3, Hx Hysterectomy - Immunizations History of Influenza Vaccine for 11/2016 - 04/2017 Season: No Physical Exam - Vital signs Vitals: Temp Pulse Resp BP Pulse Ox 98.5 F 110 H 16 157/105 H 100 06/13/18 13:28 06/13/18 13:28 06/13/18 13:28 06/13/18 13:28 06/13/18 13:28 Course - Vital Signs Vital signs: Temp Pulse Resp BP Pulse Ox 98.5 F 110 H 16 157/105 H 100 06/13/18 13:28 06/13/18 13:28 06/13/18 13:28 06/13/18 13:28 06/13/18 13:28 Doctor's Discharge - Discharge Referrals: RONALD BARKER FNP-C [Primary Care Provider] - Follow up as needed
[2018-06-13] MEDS ORDERED: ONDANSETRON HCL INJ/PF 4 MG/2 ML SDV IV ONE (14:10)
[2018-06-13] MEDS ORDERED: KETOROLAC TROMETHAMINE INJ/PF 30 MG/1 ML SDV IV ONE (14:10)
[2018-06-13] MEDS ORDERED: ONDANSETRON 4 MG TAB.RAPDIS PO ONE (15:22)
[2018-06-13] MEDS ORDERED: KETOROLAC TROMETHAMINE 60 MG/2 ML SDV IM ONE (15:22)
[2018-06-13] MEDS ORDERED: ONDANSETRON 4 MG TAB.RAPDIS ONE (15:23)
--- NOTE | 2018-06-13 15:51 | RADIOLOGY REPORT (SQ) ---
EXAM DESCRIPTION: CT ABD/PELVIS NO ORAL OR IV COMPLETED DATE/TIME: 06/13/2018 3:39 pm REASON FOR STUDY: flank and abd pain COMPARISON: Multiple, most recent 04/28/2018 TECHNIQUE: CT scan of the abdomen and pelvis performed without intravenous or oral contrast. Images reviewed with lung, soft tissue, and bone windows. Reconstructed coronal and sagittal MPR images revi ewed. All images stored on PACS. All CT scanners at this facility use dose modulation, iterative reconstruction, and/or weight based d osing when appropriate to reduce radiation dose to as low as reasonably achievable (ALARA). [facility]: Dose Right [facility]: CareDose [facility]: Dose Right [facility]: Teradose 4D [facility]: Smart [employer] RADIATION DOSE: CT Rad equipment meets quality standard of care and radiation dose reduction techniq ues were employed. CTDIvol: 5.0 mGy. DLP: 250 mGy-cm.mGy. LIMITATIONS: None. FINDINGS: LOWER CHEST: No significant findings. No nodules or infiltrates. NON-CONTRASTED LIVER, SPLEEN, ADRENALS: Evaluation limited by lack of IV contrast. No identified sign ificant masses. PANCREAS: Calcifications consistent chronic pancreatitis. GALLBLADDER: No identified stones by CT criteria. No inflammatory changes to suggest cholecystitis. RIGHT KIDNEY AND URETER: No suspicious masses. Assessment limited by lack of IV contrast. No signif icant calcifications. No hydronephrosis or hydroureter. LEFT KIDNEY AND URETER: No suspicious masses. Assessment limited by lack of IV contrast. No signifi cant calcifications. No hydronephrosis or hydroureter. AORTA AND RETROPERITONEUM: No aneurysm. No retroperitoneal masses or adenopathy. BOWEL AND PERITONEAL CAVITY: No obvious masses or inflammatory changes. No free fluid. APPENDIX: Not visualized. PELVIS, BLADDER, AND ABDOMINAL WALL:No abnormal masses. No free fluid. Bladder normal. BONES: No significant findings. OTHER: No other significant finding. IMPRESSION: Chronic pancreatitis. No acute findings. COMMENT: Quality ID # [id number]: Final reports with documentation of one or more dose reduction techniques (e.g., Automated exposure control, adjustment of the mA and/or kV according to patient size, use of iterative reconstruction technique) TECHNICAL DOCUMENTATION: JOB ID: [id number] [employer]- All Rights Reserved Reading location - IP/workstation name: [facility]
[2018-06-13 16:26] LABS: APPEARANCE,URINE TURBID; BILIRUBIN,URINE NEGATIVE (NEGATIVE); COLOR,URINE YELLOW; GLUCOSE, URINE NEGATIVE (NEGATIVE); KETONES,URINE NEGATIVE (NEGATIVE); LEUKOCYTE ESTERASE,URINE LARGE (NEGATIVE); NITRITE,URINE POSITIVE (NEGATIVE); PROTEIN,URINE >=500 mg/dL (NEGATIVE); URINE SPECIFIC GRAVITY 1.013; UROBILINOGEN,URINE NEGATIVE mg/dL (<2.0)
[2018-06-13 17:09] LABS: ABSOLUTE LYMPHOCYTES (AUTO) 1.1 10^3/uL (0.5-4.7); ABSOLUTE MONOCYTES (AUTO) 0.7 10^3/uL (0.1-1.4); ABSOLUTE NEUT (AUTO) 11.2 10^3/uL (1.7-8.2); BASOPHILS % (AUTO) 0.3 % (0-2); EOSINOPHILS % (AUTO) 0.4 % (0-6); HEMATOCRIT 33.6 % (36.0-47.0); HEMOGLOBIN 10.9 g/dL (12.0-15.5); LYMPHOCYTES % (AUTO) 8.1 % (13-45); MEAN CORPUSCULAR HGB CONC 32.4 g/dL (32.0-36.0); MEAN CORPUSCULAR VOLUME 86 fl (80-97); MONOCYTES % (AUTO) 5.4 % (3-13); PLATELET COUNT 274 10^3/uL (150-450); RED CELL DISTRIBUTION WIDTH 15.3 % (11.5-14.0); SEGMENTED NEUTROPHILS % (AUTO) 85.8 % (42-78); TOTAL CELLS COUNTED % (AUTO) 100 %
[2018-06-13 17:27] LABS: ALANINE AMINOTRANSFERASE 26 U/L (9-52); ALBUMIN 3.9 g/dL (3.5-5.0); ALKALINE PHOSPHATASE 163 U/L (38-126); ANION GAP 9 (5-19); ASPARTATE AMINO TRANSFERASE 21 U/L (14-36); BILIRUBIN,DIRECT 0.3 mg/dL (0.0-0.4); BILIRUBIN,TOTAL 0.4 mg/dL (0.2-1.3); BLOOD UREA NITROGEN 26 mg/dL (7-20); CALCIUM 9.7 mg/dL (8.4-10.2); CARBON DIOXIDE 25 mmol/L (22-30); CHLORIDE 105 mmol/L (98-107); GLUCOSE 167 mg/dL (75-110); LIPASE 477.4 U/L (23-300); POTASSIUM 4.5 mmol/L (3.6-5.0); SODIUM 139.3 mmol/L (137-145); TOTAL PROTEIN 7.3 g/dL (6.3-8.2)
--- NOTE | 2018-06-13 18:31 | ER Document Report ---
ED GI/ - General Chief Complaint: Abdominal Pain Stated Complaint: STOMACH PAIN Time Seen by Provider: 06/13/18 14:05 Primary Care Provider: RONALD BARKER FNP-C [Primary Care Provider] - Follow up tomorrow Mode of Arrival: Ambulatory Information source: Patient Notes: 37-year-old female presented to ED for complaint of abdominal pain with a history of pancreatitis. He states the pain is severe in the epigastric area and has been having nausea and vomiting. She states that she has not had any nausea or vomiting since she was seen in the pit area and given Zofran IM. She denies any fevers or diarrhea. Patient is tearful due to the pain. She has had her labs and CAT scan completed. The CAT scan shows chronic pancreatitis but no new abnormalities in the abdomen. She is dehydrated we will be sure to get 2 L of fluids. IV will be started by the nurse at this time. Patient is alert oriented respirations regular and unlabored pain is all in the epigastric area where her pancreatitis is usually bothers her. TRAVEL OUTSIDE OF THE [place] IN LAST 30 DAYS: No - HPI Patient complains to provider of: Abdominal pain, Vomiting Onset: Yesterday Timing/Duration: Persistent Quality of pain: Burning, Sharp Severity at maximum: Severe Severity in ED: Severe Pain Level: 5 Location: Epigastric Vaginal bleeding (Compared to normal period): None LMP: Hysterectomy Associated symptoms: Nausea, Vomiting Exacerbated by: Walking, Food Relieved by: Denies Similar symptoms previously: Yes Recently seen / treated by doctor: Yes - Related Data Allergies/Adverse Reactions: hydrocodone [From [place]] Allergy (Verified 06/13/18 13:25) morphine Allergy (Verified 06/13/18 13:25) Past Medical History - General Information source: Patient - Social History Smoking Status: Current Every Day Smoker Cigarette use (# per day): Yes Chew tobacco use (# tins/day): No Smoking Education Provided: Yes - 4 minutes Frequency of alcohol use: None Drug Abuse: Marijuana Lives with: Family Family History: DM, Hypertension Patient has suicidal ideation: No Patient has homicidal ideation: No - Past Medical History Cardiac Medical History: Reports: Hx Hypercholesterolemia, Hx Hypertension Pulmonary Medical History: Reports: None EENT Medical History: Reports: None Neurological Medical History: Reports: Hx Seizures Endocrine Medical History: Reports: Hx Diabetes Mellitus Type 1 - Patient states she has been told she had diabetes type 1 and type II, Hx Diabetes Mellitus Type 2 Renal/ Medical History: Reports: None Malignancy Medical History: Reports: None GI Medical History: Reports: Hx Cirrhosis, Hx Pancreatitis Musculoskeletal Medical History: Reports None Skin Medical History: Reports None Psychiatric Medical History: Reports: None Traumatic Medical History: Reports: None Infectious Medical History: Reports: None Past Surgical History: Reports: Hx Section - x3, Hx Hysterectomy Review of Systems - Review of Systems Constitutional: No symptoms reported EENT: No symptoms reported Cardiovascular: No symptoms reported Respiratory: No symptoms reported Gastrointestinal: Abdominal pain, Nausea, Vomiting, Poor appetite, Poor fluid intake Genitourinary: No symptoms reported Female Genitourinary: No symptoms reported Musculoskeletal: No symptoms reported Skin: No symptoms reported Hematologic/Lymphatic: No symptoms reported Neurological/Psychological: No symptoms reported -: Yes All other systems reviewed and negative Physical Exam - Vital signs Vitals: Temp Pulse Resp BP Pulse Ox 98.5 F 110 H 16 157/105 H 100 06/13/18 13:28 06/13/18 13:28 06/13/18 13:28 06/13/18 13:28 06/13/18 13:28 Interpretation: Normal - General General appearance: Appears well, Alert - HEENT Head: Normocephalic, Atraumatic Eyes: Normal Pupils: PERRL - Respiratory Respiratory status: No respiratory distress Chest status: Nontender Breath sounds: Normal Chest palpation: Normal - Cardiovascular Rhythm: Regular Heart sounds: Normal auscultation Murmur: No - Abdominal Inspection: Normal Distension: Distended Bowel sounds: Normal Tenderness: Tender Organomegaly: No organomegaly - Back Back: Normal, Nontender - Extremities General upper extremity: Normal inspection, Nontender, Normal color, Normal ROM, Normal temperature General lower extremity: Normal inspection, Nontender, Normal color, Normal ROM, Normal temperature, Normal weight bearing. No: Raheem's sign - Neurological Neuro grossly intact: Yes Cognition: Normal Orientation: AAOx4 [place] Com[place] Scale Eye Opening: Spontaneous [place] Coma Scale Verbal: Oriented [place] Coma Scale Motor: Obeys Commands [place] Coma Scale Total: 15 Speech: Normal Motor strength normal: LUE, RUE, LLE, RLE Sensory: Normal - Psychological Associated symptoms: Normal affect, Normal mood - Skin Skin Temperature: Warm Skin Moisture: Dry Skin Color: Normal Course - Re-evaluation Re-evalutation: 06/13/18 23:15 Patient has been treated with IV fluids Dilaudid and nausea medicine as well as Toradol IV while in the emergency room for this chronic pancreatitis. I have discussed this several times with Dr. patton he stated as long as I got her pain under control she could be discharged home with oral pain medications and follow-up with her primary doctor tomorrow. Patient has verbalized understanding and agreement with treatment plan and I have discharged her home. She states she is not in any pain at this time. She will be given a Percocet before she is discharged as she cannot fill her prescription tonight. - Vital Signs Vital signs: Temp Pulse Resp BP Pulse Ox 98.1 F 94 16 161/89 H 99 06/13/18 23:19 06/13/18 23:19 06/13/18 23:19 06/13/18 23:19 06/13/18 23:19 - Laboratory Result Diagrams: 06/13/18 17:00 06/13/18 17:00 Laboratory results interpreted by me: 06/13/18 06/13/18 06/13/18 14:15 17:00 17:00 WBC 13.0 H Hgb 10.9 L Hct 33.6 L RDW 15.3 H Seg Neutrophils % 85.8 H Lymphocytes % 8.1 L Absolute Neutrophils 11.2 H BUN 26 H Creatinine 1.30 H Est GFR ( Amer) 56 L Est GFR (Non-Af Amer) 46 L Glucose 167 H Alkaline Phosphatase 163 H Lipase 477.4 H Urine Protein >=500 H Urine Blood MODERATE H Urine Nitrite POSITIVE H Ur Leukocyte Esterase LARGE H - Diagnostic Test Radiology reviewed: Image reviewed, Reports reviewed Discharge - Discharge Clinical Impression: Chronic pancreatitis Qualifiers: Pancreatitis type: alcohol induced Qualified Code(s): K86.0 - Alcohol-induced chronic pancreatitis Condition: Stable Disposition: HOME, SELF-CARE Additional Instructions: Pancreatitis Pancreatitis is an inflammation of the pancreas, an organ at the back of your abdomen. The pancreas produces insulin and enzymes that digest your food. Pancreatitis can be caused by gallstones in the bile duct, by alcohol or viruses, or by excess fat or calcium in the blood stream. Occasionally, pancr eatitis occurs when a stomach ulcer augustine through into the pancreas. We try to find the cause of pancreatitis, but some tests can't be done until the pancreas heals. The usual symptoms of pancreatitis are pain in the pit of the stomach that goes straight through to the back, vomiting, and low-grade fever. Severe cases require hospital admission, but many patients with mild pancreatitis do well at home. You will probably need medicine for pain and for vomiting. Sometimes we prescribe medicine to decrease stomach acid secretion and to decrease flow of pancreatic juices. Start with a diet of clear liquids (soda pop, juices). When the pain is decreasing, you can add some simple starches (potato, toast, applesauce). Avoid proteins and fats until you are completely painfree. When you're better, your doctor may suggest treatment to prevent future pancreatitis (such as gallbladder removal). Avoid alcohol forever. Get immediate treatment for any future episodes. Contact your doctor at once or return here if you have increasing pain, shortness of breath, general swelling, increasing size of the abdomen, continued vomiting, muscle spasms, or other new symptoms. TORADOL INJECTION: You have been given an injection of ketorolac tromethamine (Toradol). This is an excellent, safe drug for pain control. It also has potent antiinflammatory action. You should have significant pain relief within about one hour. Toradol is not addicting and is non-sedating. It does not interfere with driving or work. Call or return if you develop itching, hives, shortness of breath, or rash. PAIN MEDICATION INJECTION: You have received an injection of a pain medication. You should experience significant pain relief within 45 minutes. This drug is a narcotic -- it will impair your judgement, slow your reaction time and make you sleepy (as well as relieve your pain). Narcotics also can cause nausea. You should not drive, work with machinery, or perform any task requiring mental alertness until all effects of the medication are gone -- six to eight hours. Do not take any alcohol, or sedatives, and do not take any other medication without checking with your physician. [place] MEDICATION: You have been given a medication to suppress nausea and vomiting. This type of medication can be given as a shot, pill, or suppository. It will usually last for many hours. Pills and shots usually last six to eight hours, suppositories last about 12 hours. For the typical illness, only one or two doses of the medication may be necessary. Mild lightheadedness may occur. This type of medicine can cause drowsiness. Do not drive or operate dangerous machinery while under its influence. Do not mix with alcohol. See your doctor at once if you have muscle spasms or tightness, or uncontrollable motions (particularly of the neck, mouth, or jaw). Persistent vomiting or severe lightheadedness should also be evaluated by the physician. ORAL NARCOTIC MEDICATION: You have been given a prescription for pain control. This medication is a narcotic. It's best taken with food, as nausea can result if taken on an empty stomach. Don't operate machinery or drive within six hours of taking this medication. Do not combine this medicine with alcohol, or with any medication which can cause sedation (such as cold tablets or sleeping pills) unless you get permission from the physician. Narcotics tend to cause constipation. If possible, drink plenty of fluids and eat a diet high in fiber and fruits. Please be aware that prescription narcotics also have the potential for abuse. People become addicted to these medications because of the general sense of wellbeing that they induce. This feeling along with a significant reduction in tension, anxiety, and aggression provides a stimulating seductive quality to these drugs. Once your pain is under control, we encourage you to discard your unused narcotics. FOLLOW-UP CARE: If you have been referred to a physician for follow-up care, call the physicians office for an appointment as you were instructed or within the next two days. If you experience worsening or a significant change in your symptoms, notify the physician immediately or return to the Emergency Department at any time for re-evaluation. Prescriptions: Oxycodone HCl/Acetaminophen [Percocet 5-325 mg Tablet] 1 tab PO Q6HP PRN #7 tablet PRN Reason: Forms: Elevated Blood Pressure, Smoking Cessation Education Referrals: RONALD BARKER FNP-C [Primary Care Provider] - Follow up tomorrow
[2018-06-13] MEDS: NORMAL SALINE 1000 ML 1,000 ML IV PRN ×2 (18:36→20:23)
[2018-06-13] MEDS ORDERED: CEFTRIAXONE 1 GM/D5W RTU 1 GM/50 ML RTUPB IV ONE (19:15)
[2018-06-13] MEDS ORDERED: OXYCODONE-ACETAMINOPHEN 5-325 MG TABLET PO ONE ×2 (21:16→23:04)
[2018-06-13] MEDS ORDERED: HYDROMORPHONE HCL INJ/PF 2 MG/ML AMPULE IV ONE (21:32)
[2018-06-13 23:32] VITALS: BP 161/89
== END 2018-06-13 23:32 | disposition home or self-care (01) ==
LOC: ER 12:57
DX: K86.0 Alcohol-induced chronic pancreatitis (principal); R10.13 Epigastric pain; R11.2 Nausea with vomiting, unspecified; F17.210 Nicotine dependence, cigarettes, uncomplicated; E78.00 Pure hypercholesterolemia, unspecified; I10 Essential (primary) hypertension; E11.9 Type 2 diabetes mellitus without complications; Z88.6 Allergy status to analgesic agent; Z90.710 Acquired absence of both cervix and uterus
CPT/HCPCS: 99406; 99284; 96361; 96375; 96365; 36415; 87086; 83690; 85025; 87088; 80053; 81001; 87186; 74176; J1885; S0119; J1170; J7030; J0696

== ENCOUNTER 2018-06-14 13:16 | Emergency (ER) | payer MEDICAID ==
[2018-06-14] MEDS ORDERED: ONDANSETRON HCL INJ/PF 4 MG/2 ML SDV IV ONE (14:31)
[2018-06-14] MEDS ORDERED: HYDROMORPHONE HCL INJ/PF 2 MG/ML AMPULE IV ONE (14:31)
[2018-06-14] MEDS ORDERED: NORMAL SALINE 1000 ML 1,000 ML IV PRN (14:32)
--- NOTE | 2018-06-14 14:38 | ER Document Report ---
ED Medical Screen (RME) - General Chief Complaint: Abdominal Pain Stated Complaint: ABDOMINAL PAIN,VOMITING Time Seen by Provider: 06/14/18 14:31 Primary Care Provider: RONALD BARKER FNP-C [Primary Care Provider] - Follow up as needed Mode of Arrival: Ambulatory Information source: Patient Notes: 37-year-old female presents to ED for complaint of abdominal pain nausea and vomiting she does have a long history of pancreatitis. She was seen last night she was pain-free and able to drink fluids when she was discharged. She states that after she got home a couple hours later she threw up all the fluid she drank. She is moving around in her chair crying in pain at this time. I have ordered her some Dilaudid Zofran and IV fluids. Patient is alert oriented r espirations regular and unlabored she is tearful at this time. An IV has been started and medications ordered. She is also been ordered a repeat of the CBC chemistry and lipase and urine. I have greeted and performed a rapid initial assessment of this patient. A comprehensive ED assessment and evaluation of the patient, analysis of test results and completion of medical decision making process will be conducted by an additional ED providers. TRAVEL OUTSIDE OF THE [place] IN LAST 30 DAYS: No - Related Data Allergies/Adverse Reactions: hydrocodone [From [place]] Allergy (Verified 06/14/18 13:17) morphine Allergy (Verified 06/14/18 13:17) Past Medical History - Social History Chew tobacco use (# tins/day): No Drug Abuse: Marijuana - Past Medical History Cardiac Medical History: Reports: Hx Hypercholesterolemia, Hx Hypertension Pulmonary Medical History: Reports: Hx COPD Neurological Medical History: Reports: Hx Seizures Endocrine Medical History: Reports: Hx Diabetes Mellitus Type 1 - Patient states she has been told she had diabetes type 1 and type II, Hx Diabetes Mellitus Type 2 Renal/ Medical History: Denies: Hx End Stage Renal Disease, Hx Peritoneal Dialysis GI Medical History: Reports: Hx Cirrhosis, Hx Pancreatitis Musculoskeltal Medical History: Denies Hx Arthritis Skin Medical History: Denies Hx Eczema, Denies Hx Psoriasis Psychiatric Medical History: Denies: Hx Dementia, Hx Depression Past Surgical History: Reports: Hx Section - x3, Hx Hysterectomy - Immunizations History of Influenza Vaccine for 11/2016 - 04/2017 Season: No Physical Exam - Vital signs Vitals: Temp Pulse Resp BP Pulse Ox 99.4 F 118 H 20 160/114 H 100 06/14/18 13:27 06/14/18 13:27 06/14/18 13:27 06/14/18 13:27 06/14/18 13:27 Course - Vital Signs Vital signs: Temp Pulse Resp BP Pulse Ox 99.4 F 118 H 20 178/98 H 100 06/14/18 13:27 06/14/18 13:27 06/14/18 13:27 06/14/18 14:24 06/14/18 13:27 Doctor's Discharge - Discharge Referrals: RONALD BARKER, REHAB NURSING TECH-C [Primary Care Provider] - Follow up as needed
[2018-06-14 15:33] LABS: APPEARANCE,URINE SLIGHTLY-CLOUDY; BILIRUBIN,URINE NEGATIVE (NEGATIVE); COLOR,URINE YELLOW; GLUCOSE, URINE 150 mg/dL (NEGATIVE); KETONES,URINE TRACE mg/dL (NEGATIVE); LEUKOCYTE ESTERASE,URINE NEGATIVE (NEGATIVE); NITRITE,URINE NEGATIVE (NEGATIVE); PROTEIN,URINE >=500 mg/dL (NEGATIVE); URINE SPECIFIC GRAVITY 1.012; UROBILINOGEN,URINE NEGATIVE mg/dL (<2.0)
[2018-06-14 15:37] LABS: ABSOLUTE LYMPHOCYTES (AUTO) 1.1 10^3/uL (0.5-4.7); ABSOLUTE MONOCYTES (AUTO) 0.5 10^3/uL (0.1-1.4); ABSOLUTE NEUT (AUTO) 7.9 10^3/uL (1.7-8.2); BASOPHILS % (AUTO) 0.5 % (0-2); EOSINOPHILS % (AUTO) 0.2 % (0-6); HEMATOCRIT 34.3 % (36.0-47.0); HEMOGLOBIN 11.2 g/dL (12.0-15.5); LYMPHOCYTES % (AUTO) 11.4 % (13-45); MEAN CORPUSCULAR HEMOGLOBIN 28.6 pg (27.0-33.4); MEAN CORPUSCULAR HGB CONC 32.6 g/dL (32.0-36.0); MEAN CORPUSCULAR VOLUME 88 fl (80-97); MONOCYTES % (AUTO) 5.6 % (3-13); PLATELET COUNT 301 10^3/uL (150-450); RED BLOOD COUNT 3.92 10^6/uL (3.72-5.28); RED CELL DISTRIBUTION WIDTH 15.3 % (11.5-14.0); SEGMENTED NEUTROPHILS % (AUTO) 82.3 % (42-78); TOTAL CELLS COUNTED % (AUTO) 100 %; WHITE BLOOD COUNT 9.6 10^3/uL (4.0-10.5)
[2018-06-14 16:00] LABS: ALANINE AMINOTRANSFERASE 26 U/L (9-52); ALBUMIN 4.3 g/dL (3.5-5.0); ALKALINE PHOSPHATASE 187 U/L (38-126); ANION GAP 13 (5-19); ASPARTATE AMINO TRANSFERASE 25 U/L (14-36); BILIRUBIN,DIRECT 0.3 mg/dL (0.0-0.4); BILIRUBIN,TOTAL 0.5 mg/dL (0.2-1.3); BLOOD UREA NITROGEN 23 mg/dL (7-20); CALCIUM 10.1 mg/dL (8.4-10.2); CARBON DIOXIDE 21 mmol/L (22-30); CHLORIDE 105 mmol/L (98-107); GLUCOSE 154 mg/dL (75-110); POTASSIUM 4.7 mmol/L (3.6-5.0); TOTAL PROTEIN 7.9 g/dL (6.3-8.2)
--- NOTE | 2018-06-14 18:01 | ER Document Report ---
ED GI/ - General Chief Complaint: Abdominal Pain Stated Complaint: ABDOMINAL PAIN,VOMITING Time Seen by Provider: 06/14/18 14:31 Primary Care Provider: RONALD BARKER FNP-C [Primary Care Provider] - Follow up tomorrow Mode of Arrival: Ambulatory Information source: Patient Notes: 37-year-old female presented to ED for complaint of abdominal pain nausea and vomiting. She has a long history of pancreatitis and was seen yesterday. She states she went home but she did not get her antibiotics or her pain medications. She states she drank a little bit of fluids and then she was not able to keep fluids down. She states she threw up all the fluids that she drank last night and has not been drinking any. She is moving around in the chair crying when I examined her the first time. When I saw her the second time she was lying in the bed crying that she was still in pain. I did give her Dilaudid Zofran and IV fluids. When I reexamined her she continued to states she had the same pain as she did earlier. IV fluids were running. Labs were much improved from yesterday. Her lipase was under 150 today where yesterday was 400. I did give patient a copy of the labs from yesterday and today to follow-up with her primary doctor tomorrow. TRAVEL OUTSIDE OF THE [place] IN LAST 30 DAYS: No - HPI Patient complains to provider of: Abdominal pain, Vomiting Onset: Other Timing/Duration: Intermittent, Persistent - Chronic Quality of pain: Sharp Severity at maximum: Severe Severity in ED: Severe Pain Level: 5 Location: Epigastric Associated symptoms: Nausea, Vomiting Exacerbated by: Movement, Walking, Food Relieved by: Denies Similar symptoms previously: Yes Recently seen / treated by doctor: Yes - Related Data Allergies/Adverse Reactions: hydrocodone [From [place]] Allergy (Verified 06/14/18 13:17) morphine Allergy (Verified 06/14/18 13:17) Past Medical History - General Information source: Patient - Social History Smoking Status: Never Smoker Chew tobacco use (# tins/day): No Frequency of alcohol use: None Drug Abuse: Marijuana Lives with: Family Family History: DM, Hypertension Patient has suicidal ideation: No Patient has homicidal ideation: No - Past Medical History Cardiac Medical History: Reports: Hx Hypercholesterolemia, Hx Hypertension Pulmonary Medical History: Reports: Hx COPD EENT Medical History: Reports: None Neurological Medical History: Reports: Hx Seizures Endocrine Medical History: Reports: Hx Diabetes Mellitus Type 1 - Patient states she has been told she had diabetes type 1 and type II, Hx Diabetes Mellitus Type 2 Renal/ Medical History: Reports: None Malignancy Medical History: Reports: None GI Medical History: Reports: Hx Cirrhosis, Hx Pancreatitis Musculoskeletal Medical History: Reports None Skin Medical History: Reports None Psychiatric Medical History: Reports: None Traumatic Medical History: Reports: None Infectious Medical History: Reports: None Past Surgical History: Reports: Hx Section - x3, Hx Hysterectomy Review of Systems - Review of Systems Constitutional: Recent illness EENT: No symptoms reported Cardiovascular: No symptoms reported Respiratory: No symptoms reported Gastrointestinal: Abdominal pain, Nausea, Vomiting Genitourinary: No symptoms reported Female Genitourinary: No symptoms reported Musculoskeletal: No symptoms reported Skin: No symptoms reported Hematologic/Lymphatic: No symptoms reported Neurological/Psychological: No symptoms reported -: Yes All other systems reviewed and negative Physical Exam - Vital signs Vitals: Temp Pulse Resp BP Pulse Ox 99.4 F 118 H 20 160/114 H 100 06/14/18 13:27 06/14/18 13:27 06/14/18 13:27 06/14/18 13:27 06/14/18 13:27 Interpretation: Normal - General General appearance: Appears well, Alert - HEENT Head: Normocephalic, Atraumatic Eyes: Normal Pupils: PERRL - Respiratory Respiratory status: No respiratory distress Chest status: Nontender Breath sounds: Normal Chest palpation: Normal - Cardiovascular Rhythm: Regular Heart sounds: Normal auscultation Murmur: No - Abdominal Inspection: Normal Distension: No distension Bowel sounds: Normal Tenderness: Tender - Epigastric Organomegaly: No organomegaly - Back Back: Normal, Nontender - Extremities General upper extremity: Normal inspection, Nontender, Normal color, Normal ROM, Normal temperature General lower extremity: Normal inspection, Nontender, Normal color, Normal ROM, Normal temperature, Normal weight bearing. No: Raheem's sign - Neurological Neuro grossly intact: Yes Cognition: Normal Orientation: AAOx4 [place] Scale Eye Opening: Spontaneous [place] Coma Scale Verbal: Oriented [place] Scale Motor: Obeys Commands [place] Scale Total: 15 Speech: Normal Motor strength normal: LUE, RUE, LLE, RLE Sensory: Normal - Psychological Associated symptoms: Normal affect, Normal mood - Skin Skin Temperature: Warm Skin Moisture: Dry Skin Color: Normal Course - Re-evaluation Re-evalutation: 06/15/18 02:39 Discussed labs with patient and written report of labs from yesterday and today given to patient. Patient was informed that her lipase was no longer elevated. She was given a prescription for the Keflex for her hematuria. Patient received a shot of Rocephin yesterday and was supposed to go follow-up with her primary care doctor today. She states she did not follow-up with her primary care and did not fill her prescription for her Percocet. I did give her the prescription for the Keflex told her to please follow-up with her primary doctor tomorrow. Patient verbalized understanding and agreement to follow-up with her primary care doctor tomorrow. Patient was discharged home after she verbalized understanding and agreement with treatment plan. - Vital Signs Vital signs: Temp Pulse Resp BP Pulse Ox 98.3 F 113 H 20 196/121 H 97 06/14/18 20:02 06/14/18 20:02 06/14/18 13:27 06/14/18 20:02 06/14/18 20:02 - Laboratory Result Diagrams: 06/14/18 15:18 06/14/18 15:18 Laboratory results interpreted by me: 06/14/18 06/14/18 06/14/18 15:05 15:18 15:18 Hgb 11.2 L Hct 34.3 L RDW 15.3 H Seg Neutrophils % 82.3 H Lymphocytes % 11.4 L Carbon Dioxide 21 L BUN 23 H Creatinine 1.28 H Est GFR ( Amer) 57 L Est GFR (Non-Af Amer) 47 L Glucose 154 H Alkaline Phosphatase 187 H Urine Protein >=500 H Urine Glucose (UA) 150 H Urine Ketones TRACE H Urine Blood MODERATE H Discharge - Discharge Clinical Impression: Abdominal pain Qualifiers: Abdominal location: upper abdomen, unspecified Qualified Code(s): R10.10 - Upper abdominal pain, unspecified Chronic pancreatitis Qualifiers: Pancreatitis type: alcohol induced Qualified Code(s): K86.0 - Alcohol-induced chronic pancreatitis UTI (urinary tract infection) Qualifiers: Urinary tract infection type: site unspecified Hematuria presence: with hematuria Qualified Code(s): N39.0 - Urinary tract infection, site not specified Condition: Stable Disposition: HOME, SELF-CARE Additional Instructions: ABDOMINAL PAIN: There are many causes of abdominal pain. Pain can mean a serious problem requiring surgery (such as appendicitis). It can also be an innocent problem that goes away on its own (such as a viral infection). Often, time must pass to determine the cause of pain. The physician does not feel that hospitalization is necessary, at present. Things may change within the next 24 hours. Call the doctor or come back for re- examination if any problems occur, such as: (1) Pain that becomes more severe, steady, or becomes concentrated in one specific area. Also, pain that is more severe with movement or coughing. (2) Vomiting that persists or becomes more frequent. (3) Blood in the vomitus, urine, or bowel movements. Blood in the stool may have a tarry or black appearance. (4) Shaking chills or fever greater than 100 degrees F. (5) The abdomen becomes more distended or swollen. (6) Bowel movements cease. PAIN MEDICATION INJECTION: You have received an injection of a pain medication. You should experience significant pain relief within 45 minutes. This drug is a narcotic -- it will impair your judgement, slow your reaction time and make you sleepy (as well as relieve your pain). Narcotics also can cause nausea. You should not drive, work with machinery, or perform any task requiring mental alertness until all effects of the medication are gone -- six to eight hours. Do not take any alcohol, or sedatives, and do not take any other medication without checking with your physician. Intravenous (IV) Fluids As part of your care today, you received intravenous (IV) fluids. IV fluids are administered to patients who are dehydrated or to those who have certain chemical (electrolyte) abnormalities that need correcting. ANTINAUSEA MEDICATION: You have been given a medication to suppress nausea and vomiting. This type of medication can be given as a shot, pill, or suppository. It will usually last for many hours. Pills and shots usually last six to eight hours, suppositories last about 12 hours. For the typical illness, only one or two doses of the medication may be necessary. Mild lightheadedness may occur. This type of medicine can cause drowsiness. Do not drive or operate dangerous machinery while under its infl uence. Do not mix with alcohol. See your doctor at once if you have muscle spasms or tightness, or uncontrollable motions (particularly of the neck, mouth, or jaw). Persistent vomiting or severe lightheadedness should also be evaluated by the physician. Hematuria Hematuria, or blood in your urine, can be caused by minor medical problems, such as a bladder infection, or by more serious medical conditions, such as kidney stones or even tumors of the bladder or kidney. If the cause of the hematuria is known (such as a bladder infection) and can be treated, it may not need further evaluation. If the cause is not known, it will usually require further evaluation by a specialist, such as a urologist. In particular, unexplained hematuria in the older patient must be evaluated to rule out a serious condition, such as a bladder or kidney tumor. If the hematuria worsens or you are passing clots and then are unable to urinate, you should be re-evaluated. A catheter may need to be placed in the bladder to permit passage of urine. If you develop high fever, severe pain, or other new or worsening symptoms, return to the Emergency Department for re-evaluation. Cephalexin The antibiotic you've been prescribed is a member of the cephalosporin class. This type of antibiotic covers a wide variety of infections, including those of the skin, lungs, and urinary tract. It's useful for staph infections. This antibiotic is slightly similar to the penicillin family. In rare cases, a person who is allergic to penicillin will also be allergic to this medication. If you have had a severe allergic reaction to penicillin, and have not taken this antibiotic since that time, notify your doctor. Antibiotics which cover many germs ("broad spectrum" antibiotics) are more likely to cause diarrhea or "yeast" infections. Women prone to vaginal yeast problems may suffer an attack after taking this antibiotic. In infants, oral thrush (white spots "stuck" on the cheek) or yeast diaper rash may result. See your doctor if these problems occur. Call at once if you develop itching, hives, shortness of breath, or lightheadedness. FOLLOW-UP CARE: If you have been referred to a physician for follow-up care, call the physici ans office for an appointment as you were instructed or within the next two days. If you experience worsening or a significant change in your symptoms, notify the physician immediately or return to the Emergency Department at any time for re-evaluation. Prescriptions: Cephalexin Monohydrate [Keflex 500 mg Capsule] 500 mg PO Q6H 5 Days capsule Referrals: RONALD BARKER FNP-C [Primary Care Provider] - Follow up tomorrow
[2018-06-14 20:42] VITALS: BP 196/121
== END 2018-06-14 20:42 | disposition home or self-care (01) ==
LOC: ER 13:16
DX: K86.0 Alcohol-induced chronic pancreatitis (principal); N39.0 Urinary tract infection, site not specified; R31.9 Hematuria, unspecified; R10.13 Epigastric pain; R11.2 Nausea with vomiting, unspecified; I10 Essential (primary) hypertension; J44.9 Chronic obstructive pulmonary disease, unspecified; E11.9 Type 2 diabetes mellitus without complications; Z88.5 Allergy status to narcotic agent
CPT/HCPCS: 99283; 36415; 83690; 85025; 80053; 81001; J1170; J2405; J7030

== ENCOUNTER 2018-06-15 04:23 | Inpatient (IN) | payer MEDICAID ==
[2018-06-15] MEDS ORDERED: NORMAL SALINE 1000 ML 1,000 ML IV ONE ×2 (05:20→06:47)
[2018-06-15] MEDS ORDERED: PROMETHAZINE HCL INJ 25 MG/1 ML VIAL IM ONE (05:21)
--- NOTE | 2018-06-15 05:23 | ER Document Report ---
ED Medical Screen (RME) - General Chief Complaint: Abdominal Pain Stated Complaint: ABDOMINAL PAIN Time Seen by Provider: 06/15/18 05:10 Primary Care Provider: RONALD BARKER FNP-C [Primary Care Provider] - Follow up as needed Notes: 37-year-old female, chief complaint of upper abdominal pain, vomiting, inability to eat. She states she has been vomiting for 3 days. Reports a history of chronic pancreatitis, reports former alcoholism, denies current alcohol. Denies recreational drugs except for marijuana, denies smoking every day. Denies fever. Also has a history of diabetes. TRAVEL OUTSIDE OF THE [place] IN LAST 30 DAYS: No - Related Data Allergies/Adverse Reactions: hydrocodone [From [place]] Allergy (Verified 06/14/18 13:17) morphine Allergy (Verified 06/14/18 13:17) Past Medical History - Social History Chew tobacco use (# tins/day): No Frequency of alcohol use: None Drug Abuse: None - Past Medical History Cardiac Medical History: Reports: Hx Hypercholesterolemia, Hx Hypertension Pulmonary Medical History: Reports: Hx COPD Neurological Medical History: Reports: Hx Seizures Endocrine Medical History: Reports: Hx Diabetes Mellitus Type 1 - Patient states she has been told she had diabetes type 1 and type II, Hx Diabetes Mellitus Type 2 Renal/ Medical History: Denies: Hx End Stage Renal Disease, Hx Peritoneal Dialysis GI Medical History: Reports: Hx Cirrhosis, Hx Pancreatitis Musculoskeltal Medical History: Denies Hx Arthritis Skin Medical History: Denies Hx Eczema, Denies Hx Psoriasis Psychiatric Medical History: Denies: Hx Dementia, Hx Depression Past Surgical History: Reports: Hx Section - x3, Hx Hysterectomy - Immunizations History of Influenza Vaccine for 11/2016 - 04/2017 Season: No Physical Exam - Vital signs Vitals: Temp Pulse Resp BP Pulse Ox 98.3 F 118 H 24 H 192/111 H 99 06/15/18 04:45 06/15/18 04:45 06/15/18 04:45 06/15/18 04:45 06/15/18 04:45 - General General appearance: Other - Patient restless but awake and cooperative - Cardiovascular Rhythm: Regular, Tachycardia Heart sounds: Normal auscultation, S1 appreciated, S2 appreciated - Abdominal Tenderness: Tender - Tender in the generalized upper abdomen, lower abdomen is benign Course - Re-evaluation Re-evalutation: I have greeted and performed a rapid initial assessment of this patient. A comprehensive ED assessment and evaluation of the patient, analysis of test results and completion of the medical decision making process will be conducted by additional ED providers. - Vital Signs Vital signs: Temp Pulse Resp BP Pulse Ox 98.3 F 118 H 24 H 192/111 H 99 06/15/18 04:45 06/15/18 04:45 06/15/18 04:45 06/15/18 04:45 06/15/18 04:45 Doctor's Discharge - Discharge Referrals: RONALD BARKER, [facility]-C [Primary Care Provider] - Follow up as needed
[2018-06-15] MEDS ORDERED: HYDROMORPHONE HCL INJ/PF 2 MG/ML AMPULE IV ONE (05:56)
[2018-06-15 06:00] LABS: ABSOLUTE LYMPHOCYTES (AUTO) 0.9 10^3/uL (0.5-4.7); ABSOLUTE MONOCYTES (AUTO) 0.5 10^3/uL (0.1-1.4); ABSOLUTE NEUT (AUTO) 10.4 10^3/uL (1.7-8.2); BASOPHILS % (AUTO) 0.4 % (0-2); HEMATOCRIT 32.4 % (36.0-47.0); HEMOGLOBIN 10.5 g/dL (12.0-15.5); LYMPHOCYTES % (AUTO) 7.3 % (13-45); MEAN CORPUSCULAR HEMOGLOBIN 28.1 pg (27.0-33.4); MEAN CORPUSCULAR HGB CONC 32.3 g/dL (32.0-36.0); MEAN CORPUSCULAR VOLUME 87 fl (80-97); MONOCYTES % (AUTO) 4.3 % (3-13); PLATELET COUNT 295 10^3/uL (150-450); RED BLOOD COUNT 3.73 10^6/uL (3.72-5.28); TOTAL CELLS COUNTED % (AUTO) 100 %; WHITE BLOOD COUNT 11.9 10^3/uL (4.0-10.5)
[2018-06-15] MEDS ORDERED: DIPHENHYDRAMINE HCL 50 MG/ML VIAL IV ONE (06:10)
[2018-06-15 06:12] LABS: ALANINE AMINOTRANSFERASE 37 U/L (9-52); ALKALINE PHOSPHATASE 182 U/L (38-126); ASPARTATE AMINO TRANSFERASE 27 U/L (14-36); BILIRUBIN,DIRECT 0.5 mg/dL (0.0-0.4); BILIRUBIN,TOTAL 0.6 mg/dL (0.2-1.3); BLOOD UREA NITROGEN 31 mg/dL (7-20); CALCIUM 10.3 mg/dL (8.4-10.2); CARBON DIOXIDE 15 mmol/L (22-30); CHLORIDE 101 mmol/L (98-107); GLUCOSE 363 mg/dL (75-110); POTASSIUM 4.8 mmol/L (3.6-5.0); SODIUM 137.4 mmol/L (137-145); TOTAL PROTEIN 7.1 g/dL (6.3-8.2)
--- NOTE | 2018-06-15 06:31 | ER Document Report ---
ED General - General TRAVEL OUTSIDE OF THE [place] IN LAST 30 DAYS: No <DANIEL HORTON - Last Filed: 06/15/18 07:31> <KATHERINCHERELLE - Last Filed: 06/15/18 07:43> - General Chief Complaint: Abdominal Pain Stated Complaint: ABDOMINAL PAIN Time Seen by Provider: 06/15/18 05:10 Primary Care Provider: RONALD BARKER FNP-C [Primary Care Provider] - Follow up as needed Notes: 37-year-old female with diabetes and chronic pancreatitis presents with 3 days of abdominal pain epigastric severe with decreased oral intake and vomiting. Has been seen in the ER twice, his CT showing chronic pancreatitis in the last 2 days. Sugars been low not high. Denies fever. No diarrhea. (DANIEL HORTON) - Related Data Allergies/Adverse Reactions: hydrocodone [From [place]] Allergy (Verified 06/15/18 07:15) morphine Allergy (Verified 06/15/18 07:15) Past Medical History - Social History Smoking Status: Never Smoker Chew tobacco use (# tins/day): No Frequency of alcohol use: None Drug Abuse: None Family History: DM, Hypertension Patient has suicidal ideation: No Patient has homicidal ideation: No - Past Medical History Cardiac Medical History: Reports: Hx Hypercholesterolemia, Hx Hypertension Pulmonary Medical History: Reports: Hx COPD Neurological Medical History: Reports: Hx Seizures Endocrine Medical History: Reports: Hx Diabetes Mellitus Type 1 - Patient states she has been told she had diabetes type 1 and type II, Hx Diabetes Mellitus Type 2 Renal/ Medical History: Denies: Hx End Stage Renal Disease, Hx Peritoneal Dialysis GI Medical History: Reports: Hx Cirrhosis, Hx Pancreatitis Musculoskeletal Medical History: Denies Hx Arthritis Skin Medical History: Denies Hx Eczema, Denies Hx Psoriasis Psychiatric Medical History: Denies: Hx Dementia, Hx Depression Past Surgical History: Reports: Hx Section - x3, Hx Hysterectomy <DANIEL HORTON - Last Filed: 06/15/18 07:31> Review of Systems <DANIEL HORTON - Last Filed: 06/15/18 07:31> - Review of Systems Notes: REVIEW OF SYSTEMS GEN: Denies fever, chills, weight loss ENT: Denies sore throat, nasal discharge, ear pain EYES: Denies blurry vision, eye pain, discharge CV: Denies chest pain, palpitations, edema RESP: Denies cough, shortness of breath, wheezing GI: abdominal pain, nausea, vomiting, diarrhea MSK: Denies joint pain/swelling, edema, SKIN: Denies rash, skin lesions LYMPH: Denies swollen glands/lymph nodes NEURO: Denies headache, focal weakness or numbness, dizziness PSYCH: Denies depression, suicidal or homicidal ideation PHYSICAL EXAMINATION General: No acute distress, well-nourished Head: Atraumatic, normocephalic ENT: Mouth normal, oropharynx dry no exudates or tonsillar enlargement Eyes: Conjunctiva normal, pupils equal, lids normal Neck: No JVD, supple, no guarding CVS: Normal rate, regular rhythm, no murmurs Resp: No resp distress, equal and normal breath sounds bilaterally GI: She is tenderness Ext: No deformities, no edema, normal range of motion in upper and lower ext Back: No CVA or midline TTP Skin: No rash, warm Lymphatic: No lymphadeopathy noted Neuro: Awake, alert. Face symmetric. GCS 15. (DANIEL HORTON) - Vital signs Vitals: Temp Pulse Resp BP Pulse Ox 98.3 F 118 H 24 H 192/111 H 99 06/15/18 04:45 06/15/18 04:45 06/15/18 04:45 06/15/18 04:45 06/15/18 04:45 Course - Laboratory Result Diagrams: 06/15/18 05:35 06/15/18 05:35 <DANIEL HORTON - Last Filed: 06/15/18 07:31> - Laboratory Result Diagrams: 06/15/18 05:35 06/15/18 05:35 <CHERELLE PANDEY - Last Filed: 06/15/18 07:43> - Re-evaluation Re-evalutation: 06/15/18 06:31 Abdominal pain: Acute versus chronic pancreatitis versus DKA, no vaginal discharge, no urinary symptoms. Will treat with Dilaudid in addition to the meds Erasto ordered by triage. (DANIEL HORTON) - Vital Signs Vital signs: Temp Pulse Resp BP Pulse Ox 98.3 F 118 H 22 H 171/92 H 97 06/15/18 04:45 06/15/18 04:45 06/15/18 07:01 06/15/18 07:01 06/15/18 07:01 - Laboratory Laboratory results interpreted by me: 06/15/18 06/15/18 06/15/18 05:35 05:35 05:35 WBC 11.9 H Hgb 10.5 L Hct 32.4 L RDW 15.0 H Seg Neutrophils % 88.0 H Lymphocytes % 7.3 L Absolute Neutrophils 10.4 H VBG pH VBG HCO3 Carbon Dioxide 15 L Anion Gap 21 H BUN 31 H Creatinine 1.58 H Est GFR ( Amer) 45 L Est GFR (Non-Af Amer) 37 L Glucose 363 H Calcium 10.3 H Phosphorus 6.6 H Direct Bilirubin 0.5 H Alkaline Phosphatase 182 H 06/15/18 05:35 WBC Hgb Hct RDW Seg Neutrophils % Lymphocytes % Absolute Neutrophils VBG pH 7.24 L VBG HCO3 15.4 L Carbon Dioxide Anion Gap BUN Creatinine Est GFR ( Amer) Est GFR (Non-Af Amer) Glucose Calcium Phosphorus Direct Bilirubin Alkaline Phosphatase Procedures - Central Line right IJ Consent obtained: Yes - verbal Central line pre-insertion: Sterile PPE donned, Chloraprep applied, Sterile drapes applied Central line lumen type: Triple Anesthetic type: 1% Lidocaine mL's of anesthesia: 4 Ultrasound guided: Yes Line secured with sutures: Yes Central line post-insertion: Blood return from lumens, Biopatch applied, Sutured, Sterile dressing applied, Position confirmed w/ CXR Number of attempts: 1 Complications: No <CHERELLE PANDEY - Last Filed: 06/15/18 07:43> Critical Care Note - Critical Care Note Total time excluding time spent on procedures (mins): 35 <DANIEL HORTON - Last Filed: 06/15/18 07:31> - Critical Care Note Comments: The above patient is critically ill. Not including procedures, but including direct re-evaluations, speaking with patient and/or consultants, interpreting results, and documenting, I spent the total amount of minute listed listed above on critical care time (DANIEL HORTON) Discharge - Discharge Admitting Provider: Cheo (Hospitalist) Unit Admitted: Telemetry <DANIEL HORTON - Last Filed: 06/15/18 07:31> <CHERELLE PANDEY - Last Filed: 06/15/18 07:43> - Discharge Clinical Impression: Diabetic ketoacidosis Qualifiers: Diabetes mellitus type: due to underlying condition Diabetes mellitus complication detail: without coma Qualified Code(s): E08.10 - Diabetes mellitus due to underlying condition with ketoacidosis without coma Condition: Critical Disposition: ADMITTED INPATIENT Referrals: RONALD BARKER FNP-C [Primary Care Provider] - Follow up as needed
[2018-06-15 06:33] LABS: ANION GAP 21 (5-19)
[2018-06-15] MEDS ORDERED: NORMAL SALINE 100 ML with INSULIN REGULAR, HUMAN 100 UNIT IV PRN ×2 (06:47)
[2018-06-15] MEDS ORDERED: INSULIN REG, HUMAN 100 UNIT/ML 3 ML VIAL (PYX) IV ONE ×2 (06:48→10:00)
[2018-06-15 07:06] LABS: VENOUS BLOOD BASE EXCESS -11.2 mmol/L; VENOUS BLOOD HCO3 15.4 mmol/L (20-32); VENOUS BLOOD PCO2 37.2 mmHg (35-63); VENOUS BLOOD PH 7.24 (7.30-7.42)
[2018-06-15 07:14] LABS: PHOSPHORUS 6.6 mg/dL (2.5-4.5)
[2018-06-15 08:07] LABS: APPEARANCE,URINE SLIGHTLY-CLOUDY; BILIRUBIN,URINE NEGATIVE (NEGATIVE); COLOR,URINE YELLOW; GLUCOSE, URINE >=500 mg/dL (NEGATIVE); KETONES,URINE 80 mg/dL (NEGATIVE); LEUKOCYTE ESTERASE,URINE NEGATIVE (NEGATIVE); NITRITE,URINE NEGATIVE (NEGATIVE); PROTEIN,URINE 100 mg/dL (NEGATIVE); URINE SPECIFIC GRAVITY 1.011; UROBILINOGEN,URINE NEGATIVE mg/dL (<2.0)
--- NOTE | 2018-06-15 08:15 | RADIOLOGY REPORT (SQ) ---
EXAM DESCRIPTION: CHEST SINGLE VIEW COMPLETED DATE/TIME: 06/15/2018 7:57 am REASON FOR STUDY: confirm central line placement COMPARISON: 11/09/2017 EXAM PARAMETERS: NUMBER OF VIEWS: One view. TECHNIQUE: Single frontal radiographic view of the chest acquired. RADIATION DOSE: NA LIMITATIONS: None. FINDINGS: LUNGS AND PLEURA: No opacities, masses or pneumothorax. No pleural effusion. MEDIASTINUM AND HILAR STRUCTURES: No masses. Contour normal. HEART AND VASCULAR STRUCTURES: Heart normal in size. Normal vasculature. BONES: No acute findings. HARDWARE: Interval placement of a right jugular central line with the tip in the right atrium. No pn eumothorax. OTHER: No other significant finding. IMPRESSION: No acute infiltrates Right jugular central line tip in the right atrium. No pneumothorax TECHNICAL DOCUMENTATION: JOB ID: [id number] [employer]- All Rights Reserved Reading location - IP/workstation name: [email or web address]
[2018-06-15] MEDS ORDERED: MAG HYDROX/AL HYDROX/SIMETH SUSP 30 ML UDCUP PO PRN (08:20)
[2018-06-15] MEDS ORDERED: ALBUTEROL SULFATE 0.083% NEB 2.5 MG/3 ML AMPUL NEB PRN (08:20)
[2018-06-15] MEDS ORDERED: OXYCODONE-ACETAMINOPHEN 5-325 MG TABLET PO PRN (08:20)
[2018-06-15] MEDS ORDERED: DEXTROSE 40% GEL 15 GM TUBE PO PRN ×2 (08:20)
[2018-06-15] MEDS ORDERED: ACETAMINOPHEN 325 MG TABLET PO PRN (08:20)
[2018-06-15] MEDS ORDERED: GLUCAGON,HUMAN RECOMB 1 MG INJ SUBCUT PRN (08:20)
[2018-06-15] MEDS ORDERED: DEXTROSE 50%-WATER 25 GM/50 ML DISP.SYRIN IV PRN ×2 (08:20)
[2018-06-15] MEDS ORDERED: ONDANSETRON HCL INJ/PF 4 MG/2 ML SDV IV PRN (08:20)
[2018-06-15] MEDS: NORMAL SALINE 1000 ML 1,000 ML IV PRN ×2 (10:00→16:01)
[2018-06-15] MEDS: PANTOPRAZOLE SODIUM 40 MG VIAL IV SCH ×2 (10:22→22:46)
[2018-06-15] MEDS: NICOTINE 7 MG/24 HR PATCH.TD24 TD SCH (10:23)
[2018-06-15] MEDS: NORMAL SALINE 100 ML with INSULIN REGULAR, HUMAN 100 UNIT IV PRN ×2 (12:44)
[2018-06-15 13:37] LABS: ANION GAP 15 (5-19); BLOOD UREA NITROGEN 36 mg/dL (7-20); CALCIUM 8.7 mg/dL (8.4-10.2); CARBON DIOXIDE 16 mmol/L (22-30); CHLORIDE 107 mmol/L (98-107); GLUCOSE 331 mg/dL (75-110); POTASSIUM 4.6 mmol/L (3.6-5.0); SODIUM 137.8 mmol/L (137-145)
[2018-06-15] MEDS: HEPARIN SOD (PORCINE) 5,000 UNIT/ML 1 ML SYRINGE SUBCUT SCH ×2 (14:44→22:46)
--- NOTE | 2018-06-15 16:23 | PDOC H&P ---
History of Present Illness Admission Date/PCP: 06/15/18 07:56 LYNNE OLMEDO Patient complains of: nausea and vomiting History of Present Illness: JJ HOFFMAN is a 37 year old female with a past medical history of diabetes mellitus with recurrent DKA, essential hypertension, dyslipidemia, and chronic pancreatitis who presented to the emergency department today with a complaint of 3 days of nausea and vomiting without fever, chills, diarrhea, constipation. She reports generalized/diffuse abdominal discomfort that is worse immediately preceding an episode of emesis. She denies sick contacts at home, no suspicious meals. She reports that she has been taking her insulin as prescribed. She denies recent EtOH use. Evaluation in the emergency department revealed tachycardia (HR 110), tachypnea (RR 26), hypertension (186/108), leukocytosis (WBCs 11.9), Baseline anemia (hemoglobin 10.5), and DKA with anion gap 21, bicarb 15, glucose 364. Creati nine is elevated to 1.58 (Baseline 1.3), and lipase is normal at 102. Chest x- ray is benign and EKG demonstrates sinus tachycardia. She is referred to the hospitalist service for admission and management of the above-stated complaints. Past Medical History Cardiac Medical History: Reports: Hyperlipidema, Hypertension Denies: Congestive Heart Failure, Coronary Artery Disease, DVT, Myocardial Infarction Pulmonary Medical History: Reports: Chronic Obstructive Pulmonary Disease (COPD) EENT Medical History: Reports: None Neurological Medical History: Reports: Seizures Denies: Ischemic CVA, Migraine Endocrine Medical History: Reports: Diabetes Mellitus Type 1 Renal/ Medical History: Reports: Chronic Kidney Disease GI Medical History: Reports: Cirrhosis Musculoskeltal Medical History: Denies: Arthritis Skin Medical History: Denies: Eczema, Psoriasis Psychiatric Medical History: Reports: Alcohol Dependency Denies: Depression Hematology: Reports: Anemia Infectious Medical History: Reports: None Past Surgical History Past Surgical History: Reports: Section - x3, Hysterectomy Social History Information Source: Patient Lives with: Family Smoking Status: Never Smoker Frequency of Alcohol Use: None Hx Recreational Drug Use: No Drugs: Marijuana Hx Prescription Drug Abuse: No - Advance Directive Resuscitation Status: Full Code Surrogate healthcare decision maker:: The patient's mother. Family History Family History: DM, Hypertension Parental Family History Reviewed: No Children Family History Reviewed: No Sibling(s) Family History Reviewed.: No Medication/Allergy Home Medications: Insulin Aspart [Novolog Insulin (Aspart) 100 unit/mL] 5 unit SQ AC 06/15/18 Insulin Glargine,Hum.rec.anlog [Lantus Insulin 100 Unit/1 ml 10 ml] 30 units SQ QAM 06/15/18 Allergies/Adverse Reactions: hydrocodone [From [place]] Allergy (Verified 06/15/18 07:15) morphine Allergy (Verified 06/15/18 07:15) Review of Systems Constitutional: ABSENT: chills, fever(s), headache(s), weight gain, weight loss Eyes: ABSENT: visual disturbances Ears: ABSENT: hearing changes Cardiovascular: ABSENT: chest pain, dyspnea on exertion, edema, orthropnea, palpitations Respiratory: ABSENT: cough, hemoptysis Gastrointestinal: PRESENT: abdominal pain, nausea, vomiting. ABSENT: constipation, diarrhea, hematemesis, hematochezia Genitourinary: ABSENT: dysuria, hematuria Musculoskeletal: ABSENT: joint swelling Integumentary: ABSENT: rash, wounds Neurological: ABSENT: abnormal gait, abnormal speech, confusion, dizziness, focal weakness, syncope Psychiatric: ABSENT: anxiety, depression, homidical ideation, suicidal ideation Endocrine: PRESENT: polydipsia, polyuria. ABSENT: cold intolerance, heat intolerance Hematologic/Lymphatic: ABSENT: easy bleeding, easy bruising Physical Exam Vital Signs: Temp Pulse Resp BP Pulse Ox 97.5 F 93 22 H 151/83 H 100 06/15/18 14:49 06/15/18 16:09 06/15/18 16:09 06/15/18 14:00 06/15/18 16:09 Intake & Output 06/14/18 06/15/18 06/16/18 06:59 06:59 06:59 Intake Total 5022 Balance 5022 Weight 54 kg General appearance: PRESENT: no acute distress, disheveled, thin, well- developed, well-nourished Head exam: PRESENT: atraumatic, normocephalic Eye exam: PRESENT: conjunctiva pink, EOMI, PERRLA. ABSENT: scleral icterus Mouth exam: PRESENT: moist, tongue midline Neck exam: ABSENT: carotid bruit, JVD, lymphadenopathy, thyromegaly Respiratory exam: PRESENT: clear to auscultation teddy, symmetrical, unlabored. ABSENT: rales, rhonchi, wheezes Cardiovascular exam: PRESENT: RRR, +S1, +S2, tachycardia. ABSENT: diastolic murmur, rubs, systolic murmur Pulses: PRESENT: normal dorsalis pedis pul Vascular exam: PRESENT: normal capillary refill GI/Abdominal exam: PRESENT: hyperactive bowel sounds, soft, tenderness - Epigastric. ABSENT: distended, guarding, mass, organolmegaly, rebound Rectal exam: PRESENT: deferred Extremities exam: PRESENT: full ROM. ABSENT: calf tenderness, clubbing, pedal edema Neurological exam: PRESENT: alert, awake, oriented to person, oriented to place, oriented to time, oriented to situation, CN II-XII grossly intact. ABSENT: motor sensory deficit Psychiatric exam: PRESENT: appropriate affect, normal mood. ABSENT: homicidal ideation, suicidal ideation Skin exam: PRESENT: dry, intact, warm. ABSENT: cyanosis, rash Results Laboratory Results: 06/15/18 05:35 06/15/18 12:41 06/15/18 06/15/18 06/15/18 05:35 05:35 05:35 WBC 11.9 H RBC 3.73 Hgb 10.5 L Hct 32.4 L MCV 87 MCH 28.1 MCHC 32.3 RDW 15.0 H Plt Count 295 Seg Neutrophils % 88.0 H Lymphocytes % 7.3 L Monocytes % 4.3 Eosinophils % 0.0 Basophils % 0.4 Absolute Neutrophils 10.4 H Absolute Lymphocytes 0.9 Absolute Monocytes 0.5 Absolute Eosinophils 0.0 Absolute Basophils 0.0 VBG pH VBG pCO2 VBG HCO3 VBG Base Excess Sodium 137.4 Potassium 4.8 Chloride 101 Carbon Dioxide 15 L Anion Gap 21 H BUN 31 H Creatinine 1.58 H Est GFR ( Amer) 45 L Est GFR (Non-Af Amer) 37 L Glucose 363 H Calcium 10.3 H Phosphorus Magnesium Total Bilirubin 0.6 AST 27 ALT 37 Alkaline Phosphatase 182 H Total Protein 7.1 Albumin 4.0 Lipase 102.0 Serum HCG, Qual NEGATIVE Urine Color Urine Appearance Urine pH Ur Specific [place] Urine Protein Urine Glucose (UA) Urine Ketones Urine Blood Urine Nitrite Ur Leukocyte Esterase Urine WBC (Auto) Urine RBC (Auto) 06/15/18 06/15/18 06/15/18 05:35 05:35 07:15 WBC RBC Hgb Hct MCV MCH MCHC RDW Plt Count Seg Neutrophils % Lymphocytes % Monocytes % Eosinophils % Basophils % Absolute Neutrophils Absolute Lymphocytes Absolute Monocytes Absolute Eosinophils Absolute Basophils VBG pH 7.24 L VBG pCO2 37.2 VBG HCO3 15.4 L VBG Base Excess -11.2 Sodium Potassium Chloride Carbon Dioxide Anion Gap BUN Creatinine Est GFR ( Amer) Est GFR (Non-Af Amer) Glucose Calcium Phosphorus 6.6 H Magnesium 2.0 Total Bilirubin AST ALT Alkaline Phosphatase Total Protein Albumin Lipase Serum HCG, Qual Urine Color YELLOW Urine Appearance SLIGHTLY-CLOUDY Urine pH 5.0 Ur Specific [place] 1.011 Urine Protein 100 H Urine Glucose (UA) >=500 H Urine Ketones 80 H Urine Blood LARGE H Urine Nitrite NEGATIVE Ur Leukocyte Esterase NEGATIVE Urine WBC (Auto) 9 Urine RBC (Auto) 29 06/15/18 12:41 WBC RBC Hgb Hct MCV MCH MCHC RDW Plt Count Seg Neutrophils % Lymphocytes % Monocytes % Eosinophils % Basophils % Absolute Neutrophils Absolute Lymphocytes Absolute Monocytes Absolute Eosinophils Absolute Basophils VBG pH VBG pCO2 VBG HCO3 VBG Base Excess Sodium 137.8 Potassium 4.6 Chloride 107 Carbon Dioxide 16 L Anion Gap 15 BUN 36 H Creatinine 1.58 H Est GFR ( Amer) 45 L Est GFR (Non-Af Amer) 37 L Glucose 331 H Calcium 8.7 Phosphorus Magnesium Total Bilirubin AST ALT Alkaline Phosphatase Total Protein Albumin Lipase Serum HCG, Qual Urine Color Urine Appearance Urine pH Ur Specific [place] Urine Protein Urine Glucose (UA) Urine Ketones Urine Blood Urine Nitrite Ur Leukocyte Esterase Urine WBC (Auto) Urine RBC (Auto) Impressions: Chest X-Ray 06/15/18 07:52 IMPRESSION: No acute infiltrates Right jugular central line tip in the right atrium. No pneumothorax Assessment and Plan - Diagnosis (1) DKA (diabetic ketoacidoses) Qualifiers: Diabetes mellitus type: due to underlying condition Diabetes mellitus complication detail: without coma Qualified Code(s): E08.10 - Diabetes mellitus due to underlying condition with ketoacidosis without coma Is this a current diagnosis for this admission?: Yes Plan: The patient is admitted to the medical floor on continuous cardiac telemetry. She is provided aggressive IV fluids. She is placed on an insulin drip; titrate per protocol. N.p.o. with the exception of ice chips. Serial chemistries. Registered dietitian and certified diabetes educator consulted. Discharge planning is consulted. (2) Chronic kidney disease Qualifiers: Chronic kidney disease stage: stage 3 (moderate) Qualified Code(s): N18.3 - Chronic kidney disease, stage 3 (moderate) Is this a current diagnosis for this admission?: Yes Plan: Patient with a creatinine baseline of 1.3; admitted with 1.58. Secondary to dehydration in setting of DKA. Continue aggressive IV fluid resuscitation. Avoid nephrotoxic medications as able. Daily chemistries. (3) Chronic pancreatitis Qualifiers: Pancreatitis type: alcohol induced Qualified Code(s): K86.0 - Alcohol- induced chronic pancreatitis Is this a current diagnosis for this admission?: Yes Plan: Patient is afebrile. WBCs are elevated to 11.9. Lipase is 102. LFTs are benign. Patient was seen in the emergency department 2 days ago; CT of the abdomen pelvis done at that time confirms chronic pancreatitis but is negative for acute findings. Currently in n.p.o. status secondary to DKA. Analgesics and antiemetics as needed. (4) Hypertension Qualifiers: Hypertension type: essential hypertension Qualified Code(s): I10 - Essential (primary) hypertension Is this a current diagnosis for this admission?: Yes Plan: Patient endorses a history of hypertension; she does not take home antihypertensives. She was found to have blood pressure was 186/108 on admission; these have trended down to 151/83 with supportive care. IV hydralazine is available as needed for blood pressure control. Monitor closely for need to initiate chronic antihypertensive therapy. - Time Time Spent with patient: 35 or more minutes Medications reviewed and adjusted accordingly: Yes Anticipated discharge: Home Within: within 24 hours
[2018-06-15] MEDS ORDERED: DEXTROSE 5%-NORMAL SALINE 1,000 ML IV PRN (16:24)
[2018-06-15] MEDS: HYDRALAZINE HCL INJ/PF 20 MG/1 ML SDV IV PRN (17:17)
--- NOTE | 2018-06-15 19:45 | EKG REPORT ---
SEVERITY:- ABNORMAL ECG - SINUS TACHYCARDIA BIATRIAL ABNORMALITIES PROBABLE LEFT VENTRICULAR HYPERTROPHY BORDERLINE PROLONGED QT INTERVAL : Confirmed by: Ana Borja MD 15-Jun-2018 19:44:37
[2018-06-15] MEDS: POTASSI CL 20 MEQ/D5-1/2NS 1L 1000 ML IV PRN (20:56)
[2018-06-15 22:40] LABS: ANION GAP 8 (5-19); BLOOD UREA NITROGEN 38 mg/dL (7-20); CALCIUM 9.2 mg/dL (8.4-10.2); CARBON DIOXIDE 18 mmol/L (22-30); CHLORIDE 111 mmol/L (98-107); GLUCOSE 177 mg/dL (75-110); POTASSIUM 4.5 mmol/L (3.6-5.0); SODIUM 137.2 mmol/L (137-145)
[2018-06-15] MEDS: OXYCODONE-ACETAMINOPHEN 5-325 MG TABLET PO PRN (22:47)
[2018-06-16] MEDS ORDERED: KETOROLAC TROMETHAMINE INJ/PF 30 MG/1 ML SDV IV ONE (00:30)
[2018-06-16] MEDS: POTASSI CL 20 MEQ/D5-1/2NS 1L 1000 ML IV PRN ×2 (02:41→08:10)
[2018-06-16] MEDS: OXYCODONE-ACETAMINOPHEN 5-325 MG TABLET PO PRN ×3 (06:13→20:47)
[2018-06-16] MEDS: HEPARIN SOD (PORCINE) 5,000 UNIT/ML 1 ML SYRINGE SUBCUT SCH ×3 (06:14→22:55)
[2018-06-16 07:31] LABS: HEMOGLOBIN 9.5 g/dL (12.0-15.5); MEAN CORPUSCULAR HGB CONC 32.7 g/dL (32.0-36.0); MEAN CORPUSCULAR VOLUME 86 fl (80-97); PLATELET COUNT 256 10^3/uL (150-450); RED BLOOD COUNT 3.38 10^6/uL (3.72-5.28); RED CELL DISTRIBUTION WIDTH 15.3 % (11.5-14.0); WHITE BLOOD COUNT 13.1 10^3/uL (4.0-10.5)
[2018-06-16 07:48] LABS: ANION GAP 8 (5-19); BLOOD UREA NITROGEN 33 mg/dL (7-20); CALCIUM 9.3 mg/dL (8.4-10.2); CARBON DIOXIDE 19 mmol/L (22-30); CHLORIDE 112 mmol/L (98-107); GLUCOSE 101 mg/dL (75-110); POTASSIUM 4.5 mmol/L (3.6-5.0); SODIUM 138.5 mmol/L (137-145)
[2018-06-16] MEDS: NORMAL SALINE 100 ML with INSULIN REGULAR, HUMAN 100 UNIT IV PRN ×2 (08:10)
[2018-06-16] MEDS: PANTOPRAZOLE SODIUM 40 MG VIAL IV SCH ×2 (10:22→22:56)
[2018-06-16] MEDS: INSULIN GLARGINE,HUM.REC.ANLOG 1,000 UNIT/10 ML VIAL SUBCUT SCH (10:22)
[2018-06-16] MEDS: NICOTINE 7 MG/24 HR PATCH.TD24 TD SCH (10:22)
[2018-06-16] MEDS: INSULIN LISPRO 100 UNIT/ML 3 ML VIAL SUBCUT SCH ×3 (11:25→22:55)
--- NOTE | 2018-06-16 12:52 | RADIOLOGY REPORT (SQ) ---
EXAM DESCRIPTION: U/S ABDOMEN LTD W/DOPPLER COMPLETED DATE/TIME: 06/16/2018 11:57 am REASON FOR STUDY: Epigastric/RUQ pain COMPARISON: CT abdomen pelvis 06/13/2018 Abdominal ultrasound 05/05/2018 TECHNIQUE: Dynamic and static grayscale images acquired of the abdomen and recorded on PACS. Isamaro stephy selected color Doppler and spectral images recorded. LIMITATIONS: None. FINDINGS: PANCREAS: Calcifications at the pancreatic head similar prior CT exams. No gross peripanc reatic fluid around the pancreatic head LIVER: No masses. Echotexture normal. LIVER VASCULATURE: Normal directional flow of the main portal vein and hepatic veins. GALLBLADDER: No stones. Normal wall thickness. No pericholecystic fluid. ULTRASOUND-DETECTED VARGAS'S SIGN: Negative. INTRAHEPATIC DUCTS AND COMMON DUCT: CBD and intrahepatic ducts normal caliber. No filling defects. INFERIOR VENA CAVA: Normal flow. AORTA: No aneurysm. RIGHT KIDNEY: Normal size. Normal echogenicity. No solid or suspicious masses. No hydronephrosis. No calcifications. PERITONEAL AND RIGHT PLEURAL SPACE: No ascites or effusions. OTHER: No other significant findings. IMPRESSION: Calcifications at the pancreatic head from calcific pancreatitis. No gross peripancreat ic fluid by ultrasound. No gallstones TECHNICAL DOCUMENTATION: JOB ID: [id number] [employer]- All Rights Reserved Reading location - IP/workstation name: [email or web address]
[2018-06-16] MEDS: NITROFURANTOIN MONOHYD/M-CRYST 100 MG CAPSULE PO SCH (17:27)
--- NOTE | 2018-06-16 17:43 | PDOC PROGRESS REPORT ---
Subjective Progress Note for:: 06/16/18 Subjective:: MARQUEZ HOFFMAN is a 37 year old female with a past medical history of diabetes mellitus with recurrent DKA, essential hypertension, dyslipidemia, and chronic pancreatitis who was admitted 06/15/2018 with DKA. Patient was seen on afternoon rounds. She was found resting in bed on room air. She reports that she tolerated her clear liquid diet well and is asking to adva nce her diet to a consistent carb diet. She asked to advance her diet despite continued reports of epigastric pain radiating to her mid back. She reports that she thinks that eating will help her feel better. She also asks to have her pain medication increased. She denies fever, chills, chest pain, palpitations, dyspnea, orthopnea, cough, nausea, vomiting, diarrhea and constipation. She has no other questions or concerns. No concerns per nursing. Reason For Visit: DKA, RONIT Physical Exam Vital Signs: Temp Pulse Resp BP Pulse Ox 98.4 F 95 16 159/88 H 99 06/16/18 07:29 06/16/18 16:00 06/16/18 16:00 06/16/18 07:29 06/16/18 16:00 Intake & Output 06/15/18 06/16/18 06/17/18 06:59 06:59 06:59 Intake Total 6448 2530 Balance 6448 2530 Weight 54 kg 60.2 kg General appearance: PRESENT: no acute distress, thin, well-developed, well-n ourished Head exam: PRESENT: atraumatic, normocephalic Eye exam: PRESENT: conjunctiva pink, EOMI, PERRLA. ABSENT: scleral icterus Ear exam: PRESENT: normal external ear exam Mouth exam: PRESENT: moist, tongue midline Neck exam: ABSENT: carotid bruit, JVD, lymphadenopathy, thyromegaly Respiratory exam: PRESENT: clear to auscultation teddy, symmetrical, unlabored. ABSENT: rales, rhonchi, wheezes Cardiovascular exam: PRESENT: RRR, +S1, +S2. ABSENT: diastolic murmur, rubs, systolic murmur Pulses: PRESENT: normal dorsalis pedis pul Vascular exam: PRESENT: normal capillary refill GI/Abdominal exam: PRESENT: normal bowel sounds, soft, tenderness. ABSENT: distended, guarding, mass, organolmegaly, rebound Rectal exam: PRESENT: deferred Extremities exam: PRESENT: full ROM. ABSENT: calf tenderness, clubbing, pedal edema Neurological exam: PRESENT: alert, awake, oriented to person, oriented to place, oriented to time, oriented to situation, CN II-XII grossly intact. ABSENT: motor sensory deficit Psychiatric exam: PRESENT: appropriate affect, normal mood. ABSENT: homicidal ideation, suicidal ideation Skin exam: PRESENT: dry, intact, warm. ABSENT: cyanosis, rash Results Laboratory Results: 06/16/18 06:56 06/16/18 06:56 06/15/18 06/16/18 06/16/18 21:58 06:56 06:56 WBC 13.1 H RBC 3.38 L Hgb 9.5 L Hct 29.0 L MCV 86 MCH 28.0 MCHC 32.7 RDW 15.3 H Plt Count 256 Sodium 137.2 138.5 Potassium 4.5 4.5 Chloride 111 H 112 H Carbon Dioxide 18 L 19 L Anion Gap 8 8 BUN 38 H 33 H Creatinine 1.43 H 1.59 H Est GFR ( Amer) 50 L 44 L Est GFR (Non-Af Amer) 41 L 37 L Glucose 177 H 101 Calcium 9.2 9.3 Lipase 06/16/18 06:56 WBC RBC Hgb Hct MCV MCH MCHC RDW Plt Count Sodium Potassium Chloride Carbon Dioxide Anion Gap BUN Creatinine Est GFR ( Amer) Est GFR (Non-Af Amer) Glucose Calcium Lipase 53.8 Impressions: Chest X-Ray 06/15/18 07:52 IMPRESSION: No acute infiltrates Right jugular central line tip in the right atrium. No pneumothorax Abdomen Ultrasound 06/16/18 00:00 IMPRESSION: Calcifications at the pancreatic head from calcific pancreatitis. No gross peripancreatic fluid by ultrasound. No gallstones Assessment and Plan - Diagnosis (1) DKA (diabetic ketoacidoses) Qualifiers: Diabetes mellitus type: due to underlying condition Diabetes mellitus complication detail: without coma Qualified Code(s): E08.10 - Diabetes mellitus due to underlying condition with ketoacidosis without coma Is this a current diagnosis for this admission?: Yes Plan: Resolved; patient's anion gap is closed and bicarb has trended up to 19. Unfortunately, the patient did have an episode of hypoglycemia this morning; 34, which was corrected with dextrose. The patient is admitted to the medical floor on continuous cardiac telemetry. We will continue IV fluids. She is provided Lantus 20 units daily (reportedly takes 30 units daily at home.) She is placed on a clear liquid diet which was tolerated well; advance to consistent carb. Accu-Cheks before meals and at bedtime with Humalog for sliding scale coverage. Hypoglycemia protocol. Daily chemistry Registered dietitian and extension educator consulted. Discharge planning is consulted. (2) Chronic kidney disease Qualifiers: Chronic kidney disease stage: stage 3 (moderate) Qualified Code(s): N18.3 - Chronic kidney disease, stage 3 (moderate) Is this a current diagnosis for this admission?: Yes Plan: Patient with a creatinine baseline of 1.3; admitted with 1.58. Remained stable at 1.59; possibly new baseline. Secondary to dehydration in setting of DKA. Avoid nephrotoxic medications as able. Daily chemistries. (3) Chronic pancreatitis Qualifiers: Pancreatitis type: alcohol induced Qualified Code(s): K86.0 - Alcohol- induced chronic pancreatitis Is this a current diagnosis for this admission?: Yes Plan: Patient is afebrile. WBCs are elevated to 11.9. Lipase is 102->53.8. LFTs are benign. Patient was seen in the emergency department 2 days ago; CT of the abdomen pelvis done at that time confirms chronic pancreatitis but is negative for acute findings. Right upper quadrant ultrasound was negative for acute pancreatitis, cholelithiasis/cholecystitis, or acute findings. Analgesics and antiemetics as needed. (4) Hypertension Qualifiers: Hypertension type: essential hypertension Qualified Code(s): I10 - Essential (primary) hypertension Is this a current diagnosis for this admission?: Yes Plan: Patient endorses a history of hypertension; she does not take home antihypertensives. She was found to have blood pressure was 186/108 on admission; these have trende d down to 151/83 with supportive care. IV hydralazine is available as needed for blood pressure control. Monitor closely for need to initiate chronic antihypertensive therapy. - Time Time Spent with patient: 15-24 minutes Medications reviewed and adjusted accordingly: Yes Anticipated discharge: Home Within: within 24 hours
[2018-06-16] MEDS: NORMAL SALINE 1000 ML 1,000 ML IV PRN (20:49)
[2018-06-16] MEDS: DICYCLOMINE HCL 20 MG TABLET PO PRN (22:56)
[2018-06-17] MEDS: HYDRALAZINE HCL INJ/PF 20 MG/1 ML SDV IV PRN ×4 (00:10→18:19)
[2018-06-17] MEDS: KETOROLAC TROMETHAMINE INJ/PF 30 MG/1 ML SDV IV PRN ×3 (00:10→12:39)
[2018-06-17] MEDS: PROMETHAZINE HCL INJ 25 MG/1 ML VIAL IV PRN ×5 (00:20→21:12)
[2018-06-17] MEDS: OXYCODONE-ACETAMINOPHEN 5-325 MG TABLET PO PRN (04:39)
[2018-06-17] MEDS: HEPARIN SOD (PORCINE) 5,000 UNIT/ML 1 ML SYRINGE SUBCUT SCH ×3 (05:12→21:06)
[2018-06-17 06:28] LABS: HEMATOCRIT 28.7 % (36.0-47.0); HEMOGLOBIN 9.5 g/dL (12.0-15.5); MEAN CORPUSCULAR HEMOGLOBIN 28.1 pg (27.0-33.4); MEAN CORPUSCULAR HGB CONC 33.1 g/dL (32.0-36.0); MEAN CORPUSCULAR VOLUME 85 fl (80-97); PLATELET COUNT 247 10^3/uL (150-450); RED BLOOD COUNT 3.38 10^6/uL (3.72-5.28); RED CELL DISTRIBUTION WIDTH 15.3 % (11.5-14.0); WHITE BLOOD COUNT 8.8 10^3/uL (4.0-10.5)
[2018-06-17 06:46] LABS: ANION GAP 7 (5-19); BLOOD UREA NITROGEN 22 mg/dL (7-20); CALCIUM 9.3 mg/dL (8.4-10.2); CARBON DIOXIDE 24 mmol/L (22-30); CHLORIDE 108 mmol/L (98-107); GLUCOSE 149 mg/dL (75-110); POTASSIUM 4.4 mmol/L (3.6-5.0); SODIUM 139.3 mmol/L (137-145)
[2018-06-17] MEDS: NITROFURANTOIN MONOHYD/M-CRYST 100 MG CAPSULE PO SCH ×3 (08:00→18:06)
[2018-06-17] MEDS: INSULIN LISPRO 100 UNIT/ML 3 ML VIAL SUBCUT SCH ×4 (08:00→21:13)
[2018-06-17] MEDS: INSULIN GLARGINE,HUM.REC.ANLOG 1,000 UNIT/10 ML VIAL SUBCUT SCH (08:00)
[2018-06-17] MEDS: PANTOPRAZOLE SODIUM 40 MG VIAL IV SCH ×2 (10:00→21:06)
[2018-06-17] MEDS: NICOTINE 7 MG/24 HR PATCH.TD24 TD SCH (10:00)
[2018-06-17] MEDS ORDERED: MORPHINE SULFATE 10 MG/ML INJ IV PRN (10:07)
[2018-06-17] MEDS: HYDROMORPHONE HCL INJ/PF 2 MG/ML AMPULE IV PRN ×3 (11:30→21:06)
[2018-06-17] MEDS: NORMAL SALINE 1000 ML 1,000 ML IV PRN (12:35)
--- NOTE | 2018-06-17 15:37 | RADIOLOGY REPORT (SQ) ---
EXAM DESCRIPTION: CT ABD/PELVIS ORAL ONLY COMPLETED DATE/TIME: 06/17/2018 3:22 pm REASON FOR STUDY: abdominal pain COMPARISON: Prior CT abdomen and pelvis exams 06/13/2018, 04/28/2018, 01/03/2018, 12/09/2017, 10/30/2017, 08/22/2017, 08/17/2017, 07/11/2017 TECHNIQUE: CT scan of the abdomen and pelvis performed without intravenous contrast. Patient drank oral contrast. Images reviewed with lung, soft tissue, and bone windows. Reconstructed coronal and sagittal MPR imag es reviewed. All images stored on PACS. All CT scanners at this facility use dose modulation, iterative reconstruction, and/or weight based d osing when appropriate to reduce radiation dose to as low as reasonably achievable (ALARA). [facility]: Dose Right [facility]: CareDose [facility]: Dose Right [facility]: Teradose 4D [facility]: [employer] RADIATION DOSE: CT Rad equipment meets quality standard of care and radiation dose reduction techniq ues were employed. CTDIvol: 4.8 mGy. DLP: 262 mGy-cm.mGy. LIMITATIONS: No IV contrast. 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 No nodules or infiltrates. NON-CONTRASTED LIVER, SPLEEN, ADRENALS: Evaluation limited by lack of IV contrast. No identified sign ificant masses. PANCREAS: Calcifications at the pancreatic head from chronic pancreatitis. No retroperitoneal inflam matory change or pancreatic pseudocyst GALLBLADDER: No identified stones by CT criteria. No inflammatory changes to suggest cholecystitis. RIGHT KIDNEY AND URETER: No suspicious masses. Assessment limited by lack of IV contrast. No signif icant calcifications. No hydronephrosis or hydroureter. LEFT KIDNEY AND URETER: No suspicious masses. Assessment limited by lack of IV contrast. No signifi cant calcifications. No hydronephrosis or hydroureter. AORTA AND RETROPERITONEUM: No aneurysm. No retroperitoneal masses or adenopathy. BOWEL AND PERITONEAL CAVITY: No obvious masses or inflammatory changes. No free fluid. Patient drank oral contrast. No bowel obstruction. APPENDIX: Normal. PELVIS, BLADDER, AND ABDOMINAL WALL:No abnormal masses. No free fluid. Bladder normal. Normal size f emale pelvic organs. BONES: No significant findings. OTHER: Findings discussed with Sarahi Moulton, 1525 hours 06/17/2018 IMPRESSION: No CT evidence of bowel obstruction. Chronic calcific pancreatitis with calcifications at the pancreatic head. No peripancreatic fluid or inflammation on today's CT COMMENT: Quality ID # [id number]: Final reports with documentation of one or more dose reduction techniques (e.g., Automated exposure control, adjustment of the mA and/or kV according to patient size, use of iterative reconstruction technique) TECHNICAL DOCUMENTATION: JOB ID: [id number] [employer]- All Rights Reserved Reading location - IP/workstation name: [email or web address]
--- NOTE | 2018-06-17 17:42 | PDOC PROGRESS REPORT ---
Subjective Progress Note for:: 06/17/18 Subjective:: MARQUEZ HOFFMAN is a 37 year old female with a past medical history of diabetes mellitus with recurrent DKA, essential hypertension, dyslipidemia, and chronic pancreatitis who was admitted 06/15/2018 with DKA. DKA has resolved. Patient seen this morning on rounds, she is noted to be crying in pain, rocking back and forth in her bed. The patient states she is "sick of being in pain." Endorses worsening of her abdominal pain over the last 12 hours. Complains of left flank pain and periumbilical pain. Bowel sounds are normal. No abdominal distention or rigidity. Patient states she is tender to palpation in all quadrants. Laboratory studies today are relatively WNL. Mildly elevated creatinine (1.52), but this is within patient's normal range. No other significant electrolyte abnormalities. Abdominal pain is severely out of proportion to physical exam findings, recent radiological imaging and laboratory studies. Plan to scale back diet from p.o. to clear liquids. Plan to obtain CT abdomen pelvis to evaluate for pseudocyst or other abdominal pathology to explain her severe pain. Reason For Visit: DKA, RONIT Physical Exam Vital Signs: Temp Pulse Resp BP Pulse Ox 97.2 F 102 H 16 189/107 H 99 06/17/18 11:57 06/17/18 14:10 06/17/18 14:10 06/17/18 11:57 06/17/18 14:10 Intake & Output 06/16/18 06/17/18 06/18/18 06:59 06:59 06:59 Intake Total 6448 3527 1000 Output Total 1300 Balance 6448 2227 1000 Weight 60.2 kg 60.2 kg General appearance: PRESENT: well-developed, well-nourished Eye exam: PRESENT: conjunctiva pink, PERRLA Mouth exam: PRESENT: moist, tongue midline Teeth exam: PRESENT: poor dentation Neck exam: PRESENT: full ROM Respiratory exam: PRESENT: clear to auscultation teddy, symmetrical, unlabored Pulses: PRESENT: normal radial pulses, normal dorsalis pedis pul Vascular exam: PRESENT: normal capillary refill GI/Abdominal exam: PRESENT: normal bowel sounds, soft, tenderness. ABSENT: distended, firm Rectal exam: PRESENT: deferred Extremities exam: PRESENT: full ROM Musculoskeletal exam: PRESENT: ambulatory, full ROM Neurological exam: PRESENT: alert, awake, oriented to person, oriented to place, oriented to time, oriented to situation Psychiatric exam: PRESENT: agitated Skin exam: PRESENT: dry, intact Results Laboratory Results: 06/17/18 05:15 06/17/18 05:15 06/17/18 06/17/18 05:15 05:15 WBC 8.8 RBC 3.38 L Hgb 9.5 L Hct 28.7 L MCV 85 MCH 28.1 MCHC 33.1 RDW 15.3 H Plt Count 247 Sodium 139.3 Potassium 4.4 Chloride 108 H Carbon Dioxide 24 Anion Gap 7 BUN 22 H Creatinine 1.42 H Est GFR ( Amer) 50 L Est GFR (Non-Af Amer) 42 L Glucose 149 H Calcium 9.3 Impressions: Chest X-Ray 06/15/18 07:52 IMPRESSION: No acute infiltrates Right jugular central line tip in the right atrium. No pneumothorax Abdomen Ultrasound 06/16/18 00:00 IMPRESSION: Calcifications at the pancreatic head from calcific pancreatitis. No gross peripancreatic fluid by ultrasound. No gallstones Abdomen/Pelvis CT 06/17/18 10:55 IMPRESSION: No CT evidence of bowel obstruction. Chronic calcific pancreatitis with calcifications at the pancreatic head. No peripancreatic fluid or inflammation on today's CT Status: Imported from PACS Assessment and Plan - Diagnosis (1) DKA (diabetic ketoacidoses) Qualifiers: Diabetes mellitus type: due to underlying condition Diabetes mellitus complication detail: without coma Qualified Code(s): E08.10 - Diabetes mellitus due to underlying condition with ketoacidosis without coma Is this a current diagnosis for this admission?: Yes Plan: Resolved The patient is admitted to the medical floor on continuous cardiac telemetry. We will continue IV fluids. She is provided Lantus 20 units daily (reportedly takes 30 units daily at home.) She is placed on a clear liquid diet which was tolerated well; advance to consistent carb. Accu-Cheks before meals and at bedtime with Humalog for sliding scale coverage. Hypoglycemia protocol. Daily chemistry Registered dietitian and division order technician consulted. Discharge planning is consulted. (2) Chronic kidney disease Qualifiers: Chronic kidney disease stage: stage 3 (moderate) Qualified Code(s): N18.3 - Chronic kidney disease, stage 3 (moderate) Is this a current diagnosis for this admission?: Yes Plan: Patient with a creatinine baseline of 1.3; admitted with 1.58. Remained stable at 1.59; possibly new baseline. Secondary to dehydration in setting of DKA. Avoid nephrotoxic medications as able. Daily chemistries. (3) Chronic pancreatitis Qualifiers: Pancreatitis type: alcohol induced Qualified Code(s): K86.0 - Alcohol- induced chronic pancreatitis Is this a current diagnosis for this admission?: Yes Plan: Patient is afebrile. WBCs normal (8.8) Lipase is 102->53.8. LFTs are benign. Patient was seen in the emergency department 2 days ago; CT of the abdomen pelvis done at that time confirms chronic pancreatitis but is negative for acute findings. Right upper quadrant ultrasound was negative for acute pancreatitis, c holelithiasis/cholecystitis, or acute findings. Repeat CT today is normal Analgesics and antiemetics as needed. (4) Hypertension Qualifiers: Hypertension type: essential hypertension Qualified Code(s): I10 - Essential (primary) hypertension Is this a current diagnosis for this admission?: Yes Plan: Patient endorses a history of hypertension; she does not take home antih ypertensives. She was found to have blood pressure was 186/108 on admission; these have trended down to 151/83 with supportive care. IV hydralazine is available as needed for blood pressure control. Monitor closely for need to initiate chronic antihypertensive therapy. - Time Time Spent with patient: 15-24 minutes Medications reviewed and adjusted accordingly: Yes Anticipated discharge: Home Within: within 24 hours - Inpatient Certification Based on my medical assessment, after consideration of the patient's comorbidities, presenting symptoms, or acuity I expect that the services needed warrant INPATIENT care.: Yes I certify that my determination is in accordance with my understanding of Medicare's requirements for reasonable and necessary INPATIENT services [42 CFR 412.3e].: Yes Medical Necessity: Need For Continuous Telemetry Monitoring, Risk of Complication if Not Cared For in Hospital
[2018-06-18] MEDS: NORMAL SALINE 1000 ML 1,000 ML IV PRN ×2 (04:15→15:16)
[2018-06-18] MEDS: OXYCODONE-ACETAMINOPHEN 5-325 MG TABLET PO PRN ×2 (04:37→11:27)
[2018-06-18] MEDS: DICYCLOMINE HCL 20 MG TABLET PO PRN ×2 (04:41→11:27)
[2018-06-18] MEDS ORDERED: HYDROMORPHONE HCL INJ/PF 2 MG/ML AMPULE IV PRN (04:53)
[2018-06-18] MEDS: HEPARIN SOD (PORCINE) 5,000 UNIT/ML 1 ML SYRINGE SUBCUT SCH ×3 (05:02→21:09)
[2018-06-18] MEDS: INSULIN LISPRO 100 UNIT/ML 3 ML VIAL SUBCUT SCH ×4 (08:49→21:09)
[2018-06-18] MEDS: NITROFURANTOIN MONOHYD/M-CRYST 100 MG CAPSULE PO SCH ×2 (08:59→17:32)
[2018-06-18] MEDS: NICOTINE 7 MG/24 HR PATCH.TD24 TD SCH (08:59)
[2018-06-18] MEDS: INSULIN GLARGINE,HUM.REC.ANLOG 1,000 UNIT/10 ML VIAL SUBCUT SCH (08:59)
[2018-06-18] MEDS: HYDRALAZINE HCL INJ/PF 20 MG/1 ML SDV IV PRN (09:41)
[2018-06-18 12:17] LABS: HEMATOCRIT 27.2 % (36.0-47.0); HEMOGLOBIN 9.1 g/dL (12.0-15.5); MEAN CORPUSCULAR HEMOGLOBIN 28.4 pg (27.0-33.4); MEAN CORPUSCULAR HGB CONC 33.3 g/dL (32.0-36.0); MEAN CORPUSCULAR VOLUME 85 fl (80-97); PLATELET COUNT 209 10^3/uL (150-450); RED BLOOD COUNT 3.19 10^6/uL (3.72-5.28); RED CELL DISTRIBUTION WIDTH 15.2 % (11.5-14.0); WHITE BLOOD COUNT 8.4 10^3/uL (4.0-10.5)
[2018-06-18 12:35] LABS: ALANINE AMINOTRANSFERASE 28 U/L (9-52); ALBUMIN 3.2 g/dL (3.5-5.0); ALKALINE PHOSPHATASE 140 U/L (38-126); ANION GAP 8 (5-19); ASPARTATE AMINO TRANSFERASE 33 U/L (14-36); BILIRUBIN,DIRECT 0.3 mg/dL (0.0-0.4); BILIRUBIN,TOTAL 0.3 mg/dL (0.2-1.3); BLOOD UREA NITROGEN 23 mg/dL (7-20); CALCIUM 8.9 mg/dL (8.4-10.2); CARBON DIOXIDE 25 mmol/L (22-30); CHLORIDE 104 mmol/L (98-107); GLUCOSE 185 mg/dL (75-110); LIPASE 100.3 U/L (23-300); PHOSPHORUS 4.4 mg/dL (2.5-4.5); POTASSIUM 4.1 mmol/L (3.6-5.0); SODIUM 137.3 mmol/L (137-145); TOTAL PROTEIN 6.2 g/dL (6.3-8.2)
[2018-06-18] MEDS: GABAPENTIN 100 MG CAPSULE PO SCH ×2 (13:07→21:08)
[2018-06-18] MEDS: HYDROMORPHONE HCL INJ/PF 2 MG/ML AMPULE IV PRN (17:32)
--- NOTE | 2018-06-18 20:57 | PDOC PROGRESS REPORT ---
Subjective Progress Note for:: 06/18/18 Subjective:: MARQUEZ HOFFMAN is a 37 year old female with a past medical history of diabetes mellitus with recurrent DKA, essential hypertension, dyslipidemia, and chronic pancreatitis who was admitted 06/15/2018 with DKA. Patient seen this morning on rounds, she is resting in bed. The patient appears very calm compared to yesterday. She still complains of left flank pain and per iumbilical pain. CT Abdomen done yesterday shows chronic calcific pancreas, specifically calcification of the head. Will attempt to advance diet today from clear liquids to soft foods. Additionally, will start neurontin in an attempt to control abdominal pain. Reason For Visit: DKA, RONIT,PANCREATITIS Physical Exam Vital Signs: Temp Pulse Resp BP Pulse Ox 99.0 F 97 15 143/88 H 100 06/18/18 14:58 06/18/18 19:00 06/18/18 14:58 06/18/18 14:58 06/18/18 14:58 Intake & Output 06/17/18 06/18/18 06/19/18 06:59 06:59 06:59 Intake Total 3527 2660 1181 Output Total 1300 400 Balance 2227 2260 1181 Weight 60.2 kg 61.2 kg General appearance: PRESENT: no acute distress, well-developed, well-nourished Head exam: PRESENT: atraumatic, normocephalic Eye exam: PRESENT: conjunctiva pink, EOMI, PERRLA. ABSENT: scleral icterus Ear exam: PRESENT: normal external ear exam Mouth exam: PRESENT: moist, tongue midline Neck exam: ABSENT: carotid bruit, JVD, lymphadenopathy, thyromegaly Respiratory exam: PRESENT: clear to auscultation teddy. ABSENT: rales, rhonchi, wheezes Cardiovascular exam: PRESENT: RRR. ABSENT: diastolic murmur, rubs, systolic murmur Pulses: PRESENT: normal radial pulses, normal dorsalis pedis pul Vascular exam: PRESENT: normal capillary refill GI/Abdominal exam: PRESENT: normal bowel sounds, soft, tenderness - periumbilical. ABSENT: distended, guarding, mass, organolmegaly, rebound Rectal exam: PRESENT: deferred Extremities exam: PRESENT: full ROM. ABSENT: calf tenderness, clubbing, pedal edema Neurological exam: PRESENT: alert, awake, oriented to person, oriented to place, oriented to time, oriented to situation Psychiatric exam: PRESENT: appropriate affect, normal mood Skin exam: PRESENT: dry, intact, warm. ABSENT: cyanosis, rash Results Laboratory Results: 06/18/18 12:00 06/18/18 12:00 06/18/18 06/18/18 12:00 12:00 WBC 8.4 RBC 3.19 L Hgb 9.1 L Hct 27.2 L MCV 85 MCH 28.4 MCHC 33.3 RDW 15.2 H Plt Count 209 Sodium 137.3 Potassium 4.1 Chloride 104 Carbon Dioxide 25 Anion Gap 8 BUN 23 H Creatinine 1.77 H Est GFR ( Amer) 39 L Est GFR (Non-Af Amer) 32 L Glucose 185 H Calcium 8.9 Phosphorus 4.4 Magnesium 1.7 Total Bilirubin 0.3 AST 33 ALT 28 Alkaline Phosphatase 140 H Total Protein 6.2 L Albumin 3.2 L Lipase 100.3 Impressions: Chest X-Ray 06/15/18 07:52 IMPRESSION: No acute infiltrates Right jugular central line tip in the right atrium. No pneumothorax Abdomen Ultrasound 06/16/18 00:00 IMPRESSION: Calcifications at the pancreatic head from calcific pancreatitis. No gross peripancreatic fluid by ultrasound. No gallstones Abdomen/Pelvis CT 06/17/18 10:55 IMPRESSION: No CT evidence of bowel obstruction. Chronic calcific pancreatitis with calcifications at the pancreatic head. No peripancreatic fluid or inflammation on today's CT Status: Imported from PACS Assessment and Plan - Diagnosis (1) DKA (diabetic ketoacidoses) Qualifiers: Diabetes mellitus type: due to underlying condition Diabetes mellitus comp lication detail: without coma Qualified Code(s): E08.10 - Diabetes mellitus due to underlying condition with ketoacidosis without coma Is this a current diagnosis for this admission?: Yes Plan: Resolved The patient is admitted to the medical floor on continuous cardiac telemetry. We will continue IV fluids. She is provided Lantus 20 units daily (reportedly takes 30 units daily at home.) She is placed on a clear liquid diet which was tolerated well; advance to consistent carb. Accu-Cheks before meals and at bedtime with Humalog for sliding scale coverage. Hypoglycemia protocol. Daily chemistry Registered dietitian and clinical educator consulted. Discharge planning is consulted. (2) Chronic kidney disease Qualifiers: Chronic kidney disease stage: stage 3 (moderate) Qualified Code(s): N18.3 - Chronic kidney disease, stage 3 (moderate) Is this a current diagnosis for this admission?: Yes Plan: Patient with a creatinine baseline of 1.3; admitted with 1.58. Remained stable at 1.59; possibly new baseline. Secondary to dehydration in setting of DKA. Avoid nephrotoxic medications as able. Daily chemistries. (3) Chronic pancreatitis Qualifiers: Pancreatitis type: alcohol induced Qualified Code(s): K86.0 - Alcohol- induced chronic pancreatitis Is this a current diagnosis for this admission?: Yes Plan: Patient is afebrile. WBCs normal (8.8) Lipase is 102->53.8. LFTs are benign. Patient was seen in the emergency department 2 days ago; CT of the abdomen pelvis done at that time confirms chronic pancreatitis but is negative for acute findings. Right upper quadrant ultrasound was negative for acute pancreatitis, cholelithiasis/cholecystitis, or acute findings. Repeat CT is normal, shows chronic calcific pancreas Analgesics and antiemetics as needed. (4) Hypertension Qualifiers: Hypertension type: essential hypertension Qualified Code(s): I10 - Essential (primary) hypertension Is this a current diagnosis for this admission?: Yes Plan: Patient endorses a history of hypertension; she does not take home antihypertensives. She was found to have blood pressure was 186/108 on admission; these have joss nded down to 151/83 with supportive care. IV hydralazine is available as needed for blood pressure control. Monitor closely for need to initiate chronic antihypertensive therapy. - Time Time Spent with patient: 15-24 minutes Medications reviewed and adjusted accordingly: Yes Anticipated discharge: Home Within: within 24 hours - Inpatient Certification Based on my medical assessment, after consideration of the patient's comorbidities, presenting symptoms, or acuity I expect that the services needed warrant INPATIENT care.: Yes I certify that my determination is in accordance with my understanding of Medicare's requirements for reasonable and necessary INPATIENT services [42 CFR 412.3e].: Yes Medical Necessity: Risk of Complication if Not Cared For in Hospital - Plan Summary Plan Summary: LIKELY DISCHARGE 24-48 HOURS
[2018-06-19] MEDS: OXYCODONE-ACETAMINOPHEN 5-325 MG TABLET PO PRN ×2 (02:26→12:02)
[2018-06-19] MEDS: NORMAL SALINE 1000 ML 1,000 ML IV PRN (04:24)
[2018-06-19] MEDS: HYDRALAZINE HCL INJ/PF 20 MG/1 ML SDV IV PRN (04:24)
[2018-06-19] MEDS: KETOROLAC TROMETHAMINE INJ/PF 30 MG/1 ML SDV IV PRN (04:29)
[2018-06-19] MEDS: HYDROMORPHONE HCL INJ/PF 2 MG/ML AMPULE IV PRN (05:47)
[2018-06-19] MEDS: HEPARIN SOD (PORCINE) 5,000 UNIT/ML 1 ML SYRINGE SUBCUT SCH ×2 (05:47→14:58)
[2018-06-19] MEDS: GABAPENTIN 100 MG CAPSULE PO SCH ×2 (05:49→14:55)
[2018-06-19 06:14] LABS: HEMATOCRIT 28.1 % (36.0-47.0); HEMOGLOBIN 9.4 g/dL (12.0-15.5); MEAN CORPUSCULAR HEMOGLOBIN 28.6 pg (27.0-33.4); MEAN CORPUSCULAR HGB CONC 33.6 g/dL (32.0-36.0); MEAN CORPUSCULAR VOLUME 85 fl (80-97); PLATELET COUNT 236 10^3/uL (150-450); RED CELL DISTRIBUTION WIDTH 15.1 % (11.5-14.0); WHITE BLOOD COUNT 9.9 10^3/uL (4.0-10.5)
[2018-06-19 06:34] LABS: ALANINE AMINOTRANSFERASE 25 U/L (9-52); ALBUMIN 3.3 g/dL (3.5-5.0); ALKALINE PHOSPHATASE 143 U/L (38-126); ANION GAP 8 (5-19); ASPARTATE AMINO TRANSFERASE 30 U/L (14-36); BILIRUBIN,DIRECT 0.3 mg/dL (0.0-0.4); BILIRUBIN,TOTAL 0.3 mg/dL (0.2-1.3); BLOOD UREA NITROGEN 21 mg/dL (7-20); CALCIUM 9.1 mg/dL (8.4-10.2); CARBON DIOXIDE 26 mmol/L (22-30); CHLORIDE 106 mmol/L (98-107); GLUCOSE 199 mg/dL (75-110); LIPASE 138.6 U/L (23-300); PHOSPHORUS 3.9 mg/dL (2.5-4.5); POTASSIUM 4.5 mmol/L (3.6-5.0); SODIUM 139.8 mmol/L (137-145); TOTAL PROTEIN 6.3 g/dL (6.3-8.2)
[2018-06-19] MEDS: INSULIN LISPRO 100 UNIT/ML 3 ML VIAL SUBCUT SCH ×2 (08:28→12:02)
[2018-06-19] MEDS: INSULIN GLARGINE,HUM.REC.ANLOG 1,000 UNIT/10 ML VIAL SUBCUT SCH (08:29)
[2018-06-19] MEDS: NITROFURANTOIN MONOHYD/M-CRYST 100 MG CAPSULE PO SCH (09:58)
[2018-06-19] MEDS: NICOTINE 7 MG/24 HR PATCH.TD24 TD SCH (09:58)
[2018-06-19] MEDS ORDERED: PROMETHAZINE HCL INJ 25 MG/1 ML VIAL IV PRN (13:30)
[2018-06-19] MEDS ORDERED: ONDANSETRON HCL INJ/PF 4 MG/2 ML SDV IV PRN (13:30)
[2018-06-19 15:54] VITALS: BP 140/86
== END 2018-06-19 16:56 | disposition home or self-care (01) | DRG 638 ==
LOC: ER 04:23 → INTOOBSV 07:56 → EH 07:56 → 4S 16:34 → OBSVTOIN 06-17 08:00
PROVIDERS: ADMIT Internal Medicine; ATTEND Internal Medicine
PROC: 02H633Z Insertion of Infusion Device into Right Atrium, Percutaneous Approach (ICD-10-PCS; principal; 2018-06-15)
PROC: 3E0F73Z Introduction of Anti-inflammatory into Respiratory Tract, Via Natural or Artificial Opening (ICD-10-PCS; 2018-06-16)
DX: E10.10 Type 1 diabetes mellitus with ketoacidosis without coma (principal); N17.9 Acute kidney failure, unspecified; K86.0 Alcohol-induced chronic pancreatitis; E78.5 Hyperlipidemia, unspecified; J44.9 Chronic obstructive pulmonary disease, unspecified; D63.1 Anemia in chronic kidney disease; N18.3 Chronic kidney disease, stage 3 (moderate); E86.0 Dehydration; E10.22 Type 1 diabetes mellitus with diabetic chronic kidney disease; I12.9 Hypertensive chronic kidney disease with stage 1 through stage 4 chronic kidney disease, or unspecified chronic kidney disease; Z90.710 Acquired absence of both cervix and uterus; Z83.3 Family history of diabetes mellitus; Z82.49 Family history of ischemic heart disease and other diseases of the circulatory system; Z79.4 Long term (current) use of insulin; Z88.6 Allergy status to analgesic agent
CPT/HCPCS: 36415; 71045; 74176; 76705; 80048; 80053; 81001; 82803; 82962; 83690; 83735; 84100; 84703; 85025; 85027; 93005; 93010; 93976; 96361; 96372; 96374; 96375; 99291; C1751; G0378; J0360; J1170; J1200; J1644; J1815; J1885; J2405; J2550; J3480; J3490; J7030; J7042; J7050; J8499; S0164

== ENCOUNTER 2018-07-04 00:48 | Inpatient (IN) | payer MEDICAID ==
[2018-07-04] MEDS ORDERED: NORMAL SALINE 1000 ML 1,000 ML IV ONE ×2 (02:20→07:37)
[2018-07-04] MEDS ORDERED: FENTANYL CITRATE INJ/PF 100 MCG/2 ML AMPUL IV ONE ×2 (02:38→07:40)
--- NOTE | 2018-07-04 02:39 | ER Document Report ---
ED GI/ - General Mode of Arrival: Ambulatory Information source: Patient TRAVEL OUTSIDE OF THE [place] IN LAST 30 DAYS: No <ALBERTO BROOKS - Last Filed: 07/04/18 07:39> <CAROLA ALEX - Last Filed: 07/04/18 09:38> - General Chief Complaint: Abdominal Pain Stated Complaint: ABDOMINAL PAIN Time Seen by Provider: 07/04/18 02:18 Primary Care Provider: RONALD BARKER FNP-C [Primary Care Provider] - Follow up as needed Notes: Patient is a 37-year-old female presented to the emergency department chief complaint of upper abdominal pain that began Tuesday night. Patient reports recent admission for DKA and pancreatitis. Patient reports she has had vomiting over the last 2 days which has now resolved. She is also had increased urination and increased thirst. She reports low-grade fever at home of 99.9. Denies any diarrhea. States she has been taking all of her medications as per her usual. Patient reports yesterday she had a glucose of 25 at home, states that EMS came to her home gave her oral glucose and her glucose levels elevated enough to the point where she was able to refuse transport. Patient states prior to arrival tonight her glucose read high on her meter at home. (ALBERTO BROOKS) - Related Data Allergies/Adverse Reactions: hydrocodone [From [place]] Allergy (Verified 06/15/18 07:15) morphine Allergy (Verified 06/15/18 07:15) Past Medical History - General Information source: Patient - Social History Smoking Status: Never Smoker Frequency of alcohol use: None Drug Abuse: None Family History: DM, Hypertension - Past Medical History Cardiac Medical History: Reports: Hx Hypercholesterolemia, Hx Hypertension Denies: Hx Congestive Heart Failure, Hx Coronary Artery Disease, Hx DVT, Hx Heart Attack Pulmonary Medical History: Reports: Hx COPD Neurological Medical History: Reports: Hx Seizures. Denies: Hx Migraine Endocrine Medical History: Reports: Hx Diabetes Mellitus Type 1, Hx Diabetes Mellitus Type 2 Renal/ Medical History: Denies: Hx End Stage Renal Disease, Hx Peritoneal Dialysis GI Medical History: Reports: Hx Pancreatitis. Denies: Hx Cirrhosis Musculoskeletal Medical History: Denies Hx Arthritis Skin Medical History: Denies Hx Eczema, Denies Hx Psoriasis Psychiatric Medical History: Denies: Hx Dementia, Hx Depression Past Surgical History: Reports: Hx Section - x3, Hx Hysterectomy <ALBERTO BROOKS - Last Filed: 07/04/18 07:39> Physical Exam <TODDALBERTO Claudine - Last Filed: 07/04/18 07:39> - Vital signs Vitals: Temp Pulse Resp BP Pulse Ox 99.3 F 108 H 17 170/106 H 100 07/04/18 00:51 07/04/18 00:51 07/04/18 00:51 07/04/18 00:51 07/04/18 00:51 - Notes Notes: PHYSICAL EXAMINATION: GENERAL: Well-appearing, well-nourished and in no acute distress. HEAD: Atraumatic, normocephalic. EYES: Pupils equal round and reactive to light, extraocular movements intact, conjunctiva are normal. ENT: Nares patent, oropharynx clear without exudates. Moist mucous membranes. NECK: Normal range of motion, supple without lymphadenopathy LUNGS: Breath sounds clear to auscultation bilaterally and equal. No wheezes rales or rhonchi. HEART: Regular rate and rhythm without murmurs. ABDOMEN: Soft, nondistended abdomen. Mid abdominal tenderness to palpation. No guarding, no rebound. No masses appreciated. Female : No CVAT. Musculoskeletal: Normal range of motion, no pitting or edema. No cyanosis. NEUROLOGICAL: Cranial nerves grossly intact. Normal speech, normal gait. Normal sensory, motor exams PSYCH: Normal mood, normal affect. SKIN: Warm, Dry, normal turgor, no rashes or lesions noted. (ALBERTO BROOKS) Course - Laboratory Result Diagrams: 07/04/18 03:55 07/04/18 06:05 <ALBERTO BROOKS - Last Filed: 07/04/18 07:39> - Laboratory Result Diagrams: 07/04/18 03:55 07/04/18 06:05 <CAROLA ALEX - Last Filed: 07/04/18 09:38> - Re-evaluation Re-evalutation: 07/04/18 07:34 This patient had a significant delay in her labs as she is a hard stick in required multiple venipunctures. Nursing staff just obtained IV access. IV fluids ordered as well as Reglan and pain medication. Lipase is elevated at 4,600. VBG was normal. Anion gap normal. Patient did have an elevated blood glucose in the 500s. She was treated with IV insulin. Accu-Chek pending. I did consult the hospitalist for admission of this patient. I have not performed a CT of the abdomen and pelvis as patient has already had 2 of these performed this month alone at this facility and she has chronic pancreatitis. Hospitalist is requesting CT of the abdomen pelvis, orders were placed. (ALBERTO BROOKS) 07/04/18 09:34 I discussed this case with hospitalist Dr. Burns who will accept the pat ient for acute on chronic pancreatitis, hyperglycemia for pain management and fluid resuscitation. Patient is currently hemodynamically stable. (CAROLA ALEX) - Vital Signs Vital signs: Temp Pulse Resp BP Pulse Ox 99.3 F 108 H 18 194/113 H 100 07/04/18 00:51 07/04/18 00:51 07/04/18 04:00 07/04/18 03:01 07/04/18 04:00 - Laboratory Laboratory results interpreted by me: 07/04/18 07/04/18 07/04/18 03:46 03:55 06:05 Hgb 11.3 L Hct 34.8 L RDW 15.9 H Carbon Dioxide 20 L BUN 26 H Est GFR ( Amer) 58 L Est GFR (Non-Af Amer) 48 L Glucose 493 H* AST 38 H Alkaline Phosphatase 127 H Total Protein 6.0 L Albumin 3.4 L Lipase 4608.3 H Urine Protein 100 H Urine Glucose (UA) >=500 H Urine Ketones TRACE H Urine Blood SMALL H Discharge <ALBERTO BROOKS - Last Filed: 07/04/18 07:39> - Discharge Admitting Provider: Neri (Hospitalist) Unit Admitted: Medical Floor <CAROLA ALEX - Last Filed: 07/04/18 09:38> - Discharge Clinical Impression: Acute on chronic pancreatitis, Hyperglycemia Condition: Stable Disposition: ADMITTED INPATIENT Referrals: RONALD BARKER FNP-C [Primary Care Provider] - Follow up as needed
[2018-07-04] MEDS ORDERED: METOCLOPRAMIDE HCL INJ/PF 10 MG/2 ML SDV IV ONE ×2 (02:40→07:38)
[2018-07-04 04:03] LABS: APPEARANCE,URINE CLEAR; BILIRUBIN,URINE NEGATIVE (NEGATIVE); COLOR,URINE STRAW; GLUCOSE, URINE >=500 mg/dL (NEGATIVE); KETONES,URINE TRACE mg/dL (NEGATIVE); LEUKOCYTE ESTERASE,URINE NEGATIVE (NEGATIVE); NITRITE,URINE NEGATIVE (NEGATIVE); PROTEIN,URINE 100 mg/dL (NEGATIVE); URINE SPECIFIC GRAVITY 1.018; UROBILINOGEN,URINE NEGATIVE mg/dL (<2.0)
[2018-07-04 04:04] LABS: VENOUS BLOOD BASE EXCESS -3.9 mmol/L; VENOUS BLOOD HCO3 22.3 mmol/L (20-32); VENOUS BLOOD PCO2 44.9 mmHg (35-63); VENOUS BLOOD PH 7.31 (7.30-7.42)
[2018-07-04 04:09] LABS: ABSOLUTE BASOPHILS # (AUTO) 0.1 10^3/uL (0.0-0.2); ABSOLUTE LYMPHOCYTES (AUTO) 1.4 10^3/uL (0.5-4.7); ABSOLUTE MONOCYTES (AUTO) 0.3 10^3/uL (0.1-1.4); ABSOLUTE NEUT (AUTO) 5.6 10^3/uL (1.7-8.2); EOSINOPHILS % (AUTO) 0.6 % (0-6); HEMATOCRIT 34.8 % (36.0-47.0); HEMOGLOBIN 11.3 g/dL (12.0-15.5); MEAN CORPUSCULAR HEMOGLOBIN 28.5 pg (27.0-33.4); MEAN CORPUSCULAR HGB CONC 32.6 g/dL (32.0-36.0); MEAN CORPUSCULAR VOLUME 88 fl (80-97); MONOCYTES % (AUTO) 3.7 % (3-13); PLATELET COUNT 319 10^3/uL (150-450); RED BLOOD COUNT 3.97 10^6/uL (3.72-5.28); RED CELL DISTRIBUTION WIDTH 15.9 % (11.5-14.0); SEGMENTED NEUTROPHILS % (AUTO) 75.7 % (42-78); TOTAL CELLS COUNTED % (AUTO) 100 %; WHITE BLOOD COUNT 7.4 10^3/uL (4.0-10.5)
[2018-07-04] MEDS ORDERED: FENTANYL CITRATE INJ/PF 100 MCG/2 ML AMPUL IM ONE (04:17)
[2018-07-04] MEDS ORDERED: PROMETHAZINE HCL INJ 25 MG/1 ML VIAL IM ONE (04:31)
[2018-07-04] MEDS ORDERED: INSULIN REG, HUMAN 100 UNIT/ML 3 ML VIAL (PYX) SUBCUT ONE (05:42)
[2018-07-04 06:41] LABS: ALANINE AMINOTRANSFERASE 33 U/L (9-52); ALBUMIN 3.4 g/dL (3.5-5.0); ALKALINE PHOSPHATASE 127 U/L (38-126); ANION GAP 13 (5-19); ASPARTATE AMINO TRANSFERASE 38 U/L (14-36); BILIRUBIN,DIRECT 0.3 mg/dL (0.0-0.4); BILIRUBIN,TOTAL 0.4 mg/dL (0.2-1.3); BLOOD UREA NITROGEN 26 mg/dL (7-20); CALCIUM 8.8 mg/dL (8.4-10.2); CARBON DIOXIDE 20 mmol/L (22-30); CHLORIDE 105 mmol/L (98-107); POTASSIUM 4.4 mmol/L (3.6-5.0); SODIUM 137.8 mmol/L (137-145)
[2018-07-04 07:05] LABS: GLUCOSE 493 mg/dL (75-110); LIPASE 4608.3 U/L (23-300)
--- NOTE | 2018-07-04 09:19 | RADIOLOGY REPORT (SQ) ---
EXAM DESCRIPTION: CT ABD/PELVIS WITH IV ONLY COMPLETED DATE/TIME: 07/04/2018 9:00 am REASON FOR STUDY: eval for pancreatitis Abdominal pain COMPARISON: CT abdomen pelvis 01/03/2018, 06/17/2018, 06/13/2018, 04/28/2018 Right upper quadrant ultrasound 06/16/2018 TECHNIQUE: CT scan of the abdomen and pelvis performed using helical scanning technique with dynamic intravenous contrast injection. No oral contrast. Images reviewed with lung, soft tissue, and bone windows. Reconstructed coronal and sagittal MPR images reviewed. Delayed images for evaluation of the urinary system also acquired. All images stored on PACS. All CT scanners at this facility use dose modulation, iterative reconstruction, and/or weight based d osing when appropriate to reduce radiation dose to as low as reasonably achievable (ALARA). [facility]: Dose Right [facility]: CareDose [facility]: Dose Right [facility]: Teradose 4D [facility]: [employer] CONTRAST TYPE AND DOSE: 67 mL IV Omnipaque 350- low osmolar. RENAL FUNCTION: Creatinine 1.3 RADIATION DOSE: CT Rad equipment meets quality standard of care and radiation dose reduction techniq ues were employed. CTDIvol: 5.0 - 6.0 mGy. DLP: 581 mGy-cm.. LIMITATIONS: None. FINDINGS: LOWER CHEST: No significant findings. No nodules or infiltrates. LIVER: Normal size. No masses. No dilated ducts. SPLEEN: Normal size. No focal lesions. PANCREAS: Again, the pancreatic duct is dilated with multiple coarse dense calcifications at the panc reatic head from chronic pancreatitis. No retroperitoneal fluid. No peripancreatic cyst formation o r pseudocyst formation. Findings discussed with Dr. Hilliard in the emergency room GALLBLADDER: No identified stones by CT criteria. No inflammatory changes to suggest cholecystitis. ADRENAL GLANDS: No significant masses or asymmetry. RIGHT KIDNEY AND URETER: No solid masses. No significant calcifications. No hydronephrosis or hyd roureter. LEFT KIDNEY AND URETER: No solid masses. No significant calcifications. No hydronephrosis or hydr oureter. AORTA AND VESSELS: No aneurysm. No dissection. Renal arteries, SMA, celiac without stenosis. RETROPERITONEUM: No retroperitoneal adenopathy, hemorrhage or masses. BOWEL AND PERITONEAL CAVITY: No masses or inflammatory changes. No free fluid or peritoneal masses. APPENDIX: Normal. PELVIS: No mass. No free fluid. Normal bladder. Post hysterectomy ABDOMINAL WALL: No masses. No hernias. BONES: No significant or acute findings. OTHER: No other significant finding. IMPRESSION: Calcifications at the pancreatic head, prominent pancreatic duct from chronic pancreatit is. No retroperitoneal fluid or ascites. No peripancreatic cysts. TECHNICAL DOCUMENTATION: JOB ID: [id number] Quality ID # [id number]: Final reports with documentation of one or more dose reduction techniques (e.g., Au tomated exposure control, adjustment of the mA and/or kV according to patient size, use of iterative reconstruction technique) 2010 [employer]- All Rights Reserved Reading location - IP/workstation name: [facility]
[2018-07-04] MEDS ORDERED: IPRATROPIUM/ALBUTEROL 0.5-2.5 MG/3 ML AMPUL NEB PRN (09:51)
[2018-07-04] MEDS ORDERED: ONDANSETRON 4 MG TAB.RAPDIS PO PRN (09:51)
--- NOTE | 2018-07-04 09:51 | PDOC H&P ---
History of Present Illness Admission Date/PCP: LYNNE OLMEDO History of Present Illness: JJ HOFFMAN is a 37 year old black female patient with past medical history of recurrent pancreatitis, type 1 diabetes mellitus, tobacco dependence, COPD, hypertension, hyperlipidemia, abdominal pain, nausea and vomiting. She reports that she has been in her usual baseline state of health up until 2 days when she started to have right upper quadrant pain radiating to her back and about 4 out of 5 on pain scale. She reports this vomiting has subsided but she continues to have worsening abdominal pain. Patient claims that she has been sober for the last 6 years. She did not have any fever chills, chest pain, cough, palpitation, diaphoresis, diarrhea or urinary complaints. No headache dizziness or blurry vision. Her blood work shows hyperglycemia with blood glucose level of 493 and elevated pancreatic lipase of 4600. Her CT scan reported as calcification at the pancreatic head, prominent pancreatic duct from chronic pancreatitis. Past Medical History Cardiac Medical History: Reports: Hyperlipidema, Hypertension Denies: Congestive Heart Failure, Coronary Artery Disease, DVT, Myocardial Infarction Pulmonary Medical History: Reports: Chronic Obstructive Pulmonary Disease (COPD) Neurological Medical History: Reports: Seizures Denies: Migraine Endocrine Medical History: Reports: Diabetes Mellitus Type 1, Diabetes Mellitus Type 2 Renal/ Medical History: Denies: End Stage Renal Disease GI Medical History: Denies: Cirrhosis Musculoskeltal Medical History: Denies: Arthritis Skin Medical History: Denies: Eczema, Psoriasis Psychiatric Medical History: Denies: Dementia, Depression Hematology: Reports: Anemia Past Surgical History Past Surgical History: Reports: Section - x3, Hysterectomy Social History Smoking Status: Current Some Day Smoker Frequency of Alcohol Use: None Hx Recreational Drug Use: No Drugs: Marijuana Hx Prescription Drug Abuse: No - Advance Directive Resuscitation Status: Full Code Family History Family History: DM, Hypertension Parental Family History Reviewed: Yes Children Family History Reviewed: Yes Sibling(s) Family History Reviewed.: Yes Medication/Allergy Allergies/Adverse Reactions: hydrocodone [From [place]] Allergy (Verified 06/15/18 07:15) morphine Allergy (Verified 06/15/18 07:15) Review of Systems Constitutional: ABSENT: chills, fever(s), headache(s), weight gain, weight loss Eyes: ABSENT: visual disturbances Ears: ABSENT: hearing changes Cardiovascular: ABSENT: chest pain, dyspnea on exertion, edema, orthropnea, palpitations Respiratory: ABSENT: cough, hemoptysis Gastrointestinal: PRESENT: abdominal pain, nausea, vomiting Genitourinary: ABSENT: dysuria, hematuria Musculoskeletal: ABSENT: joint swelling Integumentary: ABSENT: rash, wounds Neurological: ABSENT: abnormal gait, abnormal speech, confusion, dizziness, focal weakness, syncope Psychiatric: ABSENT: anxiety, depression, homidical ideation, suicidal ideation Endocrine: ABSENT: cold intolerance, heat intolerance, polydipsia, polyuria Hematologic/Lymphatic: ABSENT: easy bleeding, easy bruising Physical Exam Vital Signs: Temp Pulse Resp BP Pulse Ox 99.3 F 108 H 18 194/113 H 100 07/04/18 00:51 07/04/18 00:51 07/04/18 04:00 07/04/18 03:01 07/04/18 04:00 Intake & Output 07/03/18 07/04/18 07/05/18 06:59 06:59 06:59 Weight 58.967 kg General appearance: PRESENT: no acute distress, well-developed, well-nourished Head exam: PRESENT: atraumatic, normocephalic Eye exam: PRESENT: conjunctiva pink, EOMI, PERRLA. ABSENT: scleral icterus Ear exam: PRESENT: normal external ear exam Mouth exam: PRESENT: moist, tongue midline Neck exam: ABSENT: carotid bruit, JVD, lymphadenopathy, thyromegaly Respiratory exam: PRESENT: clear to auscultation teddy. ABSENT: rales, rhonchi, wheezes Cardiovascular exam: PRESENT: RRR. ABSENT: diastolic murmur, rubs, systolic murmur Pulses: PRESENT: normal dorsalis pedis pul Vascular exam: PRESENT: normal capillary refill GI/Abdominal exam: PRESENT: tenderness Rectal exam: PRESENT: deferred Extremities exam: PRESENT: full ROM. ABSENT: calf tenderness, clubbing, pedal edema Neurological exam: PRESENT: alert, awake, oriented to person, oriented to place, oriented to time, oriented to situation, CN II-XII grossly intact. ABSENT: motor sensory deficit Psychiatric exam: PRESENT: appropriate affect, normal mood. ABSENT: homicidal ideation, suicidal ideation Skin exam: PRESENT: dry, intact, warm. ABSENT: cyanosis, rash Results Laboratory Results: 07/04/18 03:55 07/04/18 06:05 07/04/18 07/04/18 07/04/18 03:46 03:55 03:55 WBC 7.4 RBC 3.97 Hgb 11.3 L Hct 34.8 L MCV 88 MCH 28.5 MCHC 32.6 RDW 15.9 H Plt Count 319 Seg Neutrophils % 75.7 Lymphocytes % 19.0 Monocytes % 3.7 Eosinophils % 0.6 Basophils % 1.0 Absolute Neutrophils 5.6 Absolute Lymphocytes 1.4 Absolute Monocytes 0.3 Absolute Eosinophils 0.0 Absolute Basophils 0.1 VBG pH VBG pCO2 VBG HCO3 VBG Base Excess Sodium Potassium Chloride Carbon Dioxide Anion Gap BUN Creatinine Est GFR ( Amer) Est GFR (Non-Af Amer) Glucose Calcium Magnesium Total Bilirubin AST ALT Alkaline Phosphatase Total Protein Albumin Lipase Not Reportable Urine Color STRAW Urine Appearance CLEAR Urine pH 5.0 Ur Specific Babcock 1.018 Urine Protein 100 H Urine Glucose (UA) >=500 H Urine Ketones TRACE H Urine Blood SMALL H Urine Nitrite NEGATIVE Ur Leukocyte Esterase NEGATIVE Urine WBC (Auto) 2 Urine RBC (Auto) 2 07/04/18 07/04/18 03:55 06:05 WBC RBC Hgb Hct MCV MCH MCHC RDW Plt Count Seg Neutrophils % Lymphocytes % Monocytes % Eosinophils % Basophils % Absolute Neutrophils Absolute Lymphocytes Absolute Monocytes Absolute Eosinophils Absolute Basophils VBG pH 7.31 VBG pCO2 44.9 VBG HCO3 22.3 VBG Base Excess -3.9 Sodium 137.8 Potassium 4.4 Chloride 105 Carbon Dioxide 20 L Anion Gap 13 BUN 26 H Creatinine 1.25 Est GFR ( Amer) 58 L Est GFR (Non-Af Amer) 48 L Glucose 493 H* Calcium 8.8 Magnesium 1.9 Total Bilirubin 0.4 AST 38 H ALT 33 Alkaline Phosphatase 127 H Total Protein 6.0 L Albumin 3.4 L Lipase 4608.3 H Urine Color Urine Appearance Urine pH Ur Specific Babcock Urine Protein Urine Glucose (UA) Urine Ketones Urine Blood Urine Nitrite Ur Leukocyte Esterase Urine WBC (Auto) Urine RBC (Auto) Impressions: Abdomen/Pelvis CT 07/04/18 07:34 IMPRESSION: Calcifications at the pancreatic head, prominent pancreatic duct from chronic pancreatitis. No retroperitoneal fluid or ascites. No peripancreatic cysts. Assessment and Plan - Diagnosis (1) Acute on chronic pancreatitis Is this a current diagnosis for this admission?: Yes Plan: Her lipase markedly elevated. Her CT scan shows stigmata of chronic pancreatitis. We will hydrate the patient aggressively. N.p.o. to rest her bowel. And pain control. (2) Type 1 diabetes mellitus with hyperglycemia Is this a current diagnosis for this admission?: Yes Plan: I will adjust her her home medication. And keep her on sliding scale. (3) COPD (chronic obstructive pulmonary disease) Qualifiers: Emphysema type: unspecified Is this a current diagnosis for this admission?: Yes Plan: No shortness of breath. Output and PRN bronchodilator. (4) Pretension and hyperlipidemia. Is this a current diagnosis for this admission?: Yes Plan: Continue her home medication. (5) Tobacco dependence Is this a current diagnosis for this admission?: Yes Plan: She is counseled and encouraged to quit smoking.
[2018-07-04] MEDS: ENOXAPARIN SODIUM INJ 40 MG/0.4 ML DISP.SYRIN SUBCUT SCH (12:23)
[2018-07-04] MEDS: DOCUSATE SODIUM 100 MG CAPSULE PO SCH ×2 (12:23→17:36)
[2018-07-04] MEDS: HYDROMORPHONE HCL INJ/PF 2 MG/ML AMPULE IV PRN ×2 (12:23→22:11)
[2018-07-04] MEDS: FAMOTIDINE 20 MG TABLET PO SCH ×2 (12:23→22:10)
[2018-07-04] MEDS: NORMAL SALINE 1000 ML 1,000 ML IV PRN (15:35)
[2018-07-05] MEDS: HYDROMORPHONE HCL INJ/PF 2 MG/ML AMPULE IV PRN ×4 (00:34→19:00)
[2018-07-05] MEDS ORDERED: ONDANSETRON HCL INJ/PF 4 MG/2 ML SDV IV PRN (01:55)
[2018-07-05] MEDS: HYDRALAZINE HCL INJ/PF 20 MG/1 ML SDV IV PRN (04:23)
[2018-07-05] MEDS ORDERED: METOCLOPRAMIDE HCL INJ/PF 10 MG/2 ML SDV IV PRN (05:45)
[2018-07-05] MEDS ORDERED: GLUCAGON,HUMAN RECOMB 1 MG INJ IM PRN ×2 (06:30→13:50)
[2018-07-05] MEDS ORDERED: DEXTROSE 40% GEL 15 GM TUBE X 2 PO PRN (06:30)
[2018-07-05] MEDS ORDERED: DEXTROSE 50%-WATER SYRINGE 12.5 GM/25 ML DOSE IV PRN (06:30)
[2018-07-05] MEDS ORDERED: DEXTROSE 50%-WATER SYRINGE 25 GM/50 ML DOSE IV PRN (06:30)
[2018-07-05] MEDS ORDERED: DEXTROSE 40% GEL 15 GM TUBE PO PRN ×3 (06:30→13:50)
[2018-07-05] MEDS ORDERED: INSULIN GLARGINE,HUM.REC.ANLOG 1,000 UNIT/10 ML VIAL (PYX) SUBCUT ONE (06:30)
[2018-07-05 07:48] LABS: ANION GAP 18 (5-19); BLOOD UREA NITROGEN 23 mg/dL (7-20); CARBON DIOXIDE 15 mmol/L (22-30); CHLORIDE 104 mmol/L (98-107); POTASSIUM 5.1 mmol/L (3.6-5.0)
[2018-07-05 07:58] LABS: GLUCOSE 413 mg/dL (75-110)
[2018-07-05] MEDS: FAMOTIDINE 20 MG TABLET PO SCH ×2 (09:29→22:05)
[2018-07-05] MEDS: DOCUSATE SODIUM 100 MG CAPSULE PO SCH ×2 (09:29→18:06)
[2018-07-05] MEDS: ENOXAPARIN SODIUM INJ 40 MG/0.4 ML DISP.SYRIN SUBCUT SCH (09:29)
[2018-07-05] MEDS: INSULIN REG, HUMAN 100 UNIT/ML 3 ML VIAL (PYX) SUBCUT SCH ×2 (09:29→13:49)
[2018-07-05] MEDS ORDERED: DEXTROSE 50%-WATER 25 GM/50 ML DISP.SYRIN IV PRN ×2 (13:50)
[2018-07-05] MEDS: METOCLOPRAMIDE HCL INJ/PF 10 MG/2 ML SDV IV SCH ×2 (15:00→22:06)
[2018-07-05] MEDS: INSULIN LISPRO 100 UNIT/ML 3 ML VIAL SUBCUT SCH ×2 (16:42→22:07)
[2018-07-06] MEDS: HYDROMORPHONE HCL INJ/PF 2 MG/ML AMPULE IV PRN ×6 (00:14→20:36)
[2018-07-06] MEDS: NORMAL SALINE 1000 ML 1,000 ML IV PRN ×3 (00:17→17:04)
[2018-07-06] MEDS: INSULIN GLARGINE,HUM.REC.ANLOG 1,000 UNIT/10 ML VIAL SUBCUT SCH ×2 (03:00→23:33)
[2018-07-06] MEDS: METOCLOPRAMIDE HCL INJ/PF 10 MG/2 ML SDV IV SCH ×4 (03:02→20:37)
[2018-07-06 07:02] LABS: ALANINE AMINOTRANSFERASE 31 U/L (9-52); ALBUMIN 3.4 g/dL (3.5-5.0); ALKALINE PHOSPHATASE 112 U/L (38-126); ANION GAP 9 (5-19); ASPARTATE AMINO TRANSFERASE 30 U/L (14-36); BILIRUBIN,DIRECT 0.2 mg/dL (0.0-0.4); BILIRUBIN,TOTAL 0.4 mg/dL (0.2-1.3); BLOOD UREA NITROGEN 18 mg/dL (7-20); CALCIUM 9.3 mg/dL (8.4-10.2); CARBON DIOXIDE 21 mmol/L (22-30); CHLORIDE 110 mmol/L (98-107); GLUCOSE 94 mg/dL (75-110); PHOSPHORUS 4.8 mg/dL (2.5-4.5); SODIUM 139.5 mmol/L (137-145); TOTAL PROTEIN 6.2 g/dL (6.3-8.2)
[2018-07-06 07:11] LABS: POTASSIUM 4.1 mmol/L (3.6-5.0)
[2018-07-06] MEDS: INSULIN LISPRO 100 UNIT/ML 3 ML VIAL SUBCUT SCH ×4 (07:41→22:01)
[2018-07-06] MEDS: FAMOTIDINE 20 MG TABLET PO SCH ×2 (09:44→22:11)
[2018-07-06] MEDS: DOCUSATE SODIUM 100 MG CAPSULE PO SCH ×2 (09:44→17:03)
[2018-07-06] MEDS: ENOXAPARIN SODIUM INJ 40 MG/0.4 ML DISP.SYRIN SUBCUT SCH (09:44)
[2018-07-06 11:04] LABS: HEMATOCRIT 30.2 % (36.0-47.0); HEMOGLOBIN 9.8 g/dL (12.0-15.5); MEAN CORPUSCULAR HEMOGLOBIN 28.3 pg (27.0-33.4); MEAN CORPUSCULAR HGB CONC 32.5 g/dL (32.0-36.0); MEAN CORPUSCULAR VOLUME 87 fl (80-97); PLATELET COUNT 297 10^3/uL (150-450); RED BLOOD COUNT 3.47 10^6/uL (3.72-5.28); RED CELL DISTRIBUTION WIDTH 15.3 % (11.5-14.0); WHITE BLOOD COUNT 5.3 10^3/uL (4.0-10.5)
[2018-07-06] MEDS: HYDRALAZINE HCL INJ/PF 20 MG/1 ML SDV IV PRN (13:49)
[2018-07-06] MEDS: LISINOPRIL 10 MG TABLET PO SCH (15:02)
[2018-07-06] MEDS: FENTANYL 25 MCG/HR PATCH.TD72 TD SCH (15:02)
[2018-07-06 15:18] LABS: CREATINE KINASE MB 3.14 ng/mL (<4.55)
[2018-07-06 15:25] LABS: TROPONIN I < 0.012 ng/mL
--- NOTE | 2018-07-06 16:18 | EKG REPORT ---
SEVERITY:- ABNORMAL ECG - SINUS TACHYCARDIA LEFT VENTRICULAR HYPERTROPHY : Confirmed by: Ana Borja MD 06-Jul-2018 16:17:13
[2018-07-06] MEDS ORDERED: DIPHENHYDRAMINE HCL 50 MG/ML VIAL IV ONE (17:00)
--- NOTE | 2018-07-06 17:40 | PDOC PROGRESS REPORT ---
Subjective Progress Note for:: 07/06/18 Subjective:: 37 y.o. F with a PMH of DM and chronic pancreatitis. She is well known to the [facility] medical staff. She presented to [facility] with acute abdominal pain. Of note, the patient was discharged home approximately 2 weeks ago for DKA and acute abdominal pain stemming from acute on chronic pancreatitis. The patient was seen this morning on rounds, she is resting on room air. She is very tearful upon interview. She states that she is experiencing abdominal pain, nausea and mild chest pain. She states she is unable to tolerate her clear liquid diet because she experiences postprandial abdominal pain. Her SBP is noted to be > 200. The patient's states she is " tired of feeling sick." Patient states that Reglan is no longer working for her nausea. She has not been observed to be vomiting, although she gripping a emesis bag. Plan to initiate fentanyl patch for continuous analgesia. Patient will maintain on PRN IV Dilaudid for breakthrough pain. Will initiate Phenergan for nausea. Patient will remain at [facility] for intractable pain. Reason For Visit: ACUTE ON CHRONIC PANCREATITIS,DM,COPD Physical Exam Vital Signs: Temp Pulse Resp BP Pulse Ox 98.8 F 112 H 20 222/123 H 100 07/06/18 13:45 07/06/18 13:45 07/06/18 13:45 07/06/18 13:45 07/06/18 13:45 Intake & Output 07/05/18 07/06/18 07/07/18 06:59 06:59 06:59 Intake Total 2360 2660 1420 Output Total 1275 Balance 1085 2660 1420 Weight 59.9 kg 59.9 kg General appearance: PRESENT: no acute distress, well-developed, well-nourished Head exam: PRESENT: atraumatic, normocephalic Eye exam: PRESENT: conjunctiva pink, EOMI, PERRLA. ABSENT: scleral icterus Ear exam: PRESENT: normal external ear exam Mouth exam: PRESENT: moist, tongue midline Neck exam: ABSENT: carotid bruit, JVD, lymphadenopathy, thyromegaly Respiratory exam: PRESENT: clear to auscultation teddy, symmetrical, unlabored. ABSENT: rales, rhonchi, wheezes Cardiovascular exam: PRESENT: RRR. ABSENT: diastolic murmur, rubs, systolic murmur Pulses: PRESENT: normal radial pulses, normal dorsalis pedis pul Vascular exam: PRESENT: normal capillary refill GI/Abdominal exam: PRESENT: normal bowel sounds, soft, tenderness - Diffusely tender. Soft nondistended. ABSENT: distended, guarding, mass, organolmegaly, rebound Rectal exam: PRESENT: deferred Extremities exam: PRESENT: full ROM. ABSENT: calf tenderness, clubbing, pedal edema Neurological exam: PRESENT: alert, awake, oriented to person, oriented to place, oriented to time, oriented to situation Psychiatric exam: PRESENT: appropriate affect, normal mood. ABSENT: homicidal ideation, suicidal ideation Skin exam: PRESENT: dry, intact, warm. ABSENT: cyanosis, rash Results Laboratory Results: 07/06/18 10:50 07/06/18 06:17 07/06/18 07/06/18 07/06/18 06:17 06:17 06:17 WBC Cancelled RBC Cancelled Hgb Cancelled Hct Cancelled MCV Cancelled MCH Cancelled MCHC Cancelled RDW Cancelled Plt Count Cancelled Sodium 139.5 Potassium 4.1 D Chloride 110 H Carbon Dioxide 21 L Anion Gap 9 BUN 18 Creatinine 1.42 H Est GFR ( Amer) 50 L Est GFR (Non-Af Amer) 42 L Glucose 94 Calcium 9.3 Phosphorus 4.8 H Magnesium 1.9 Total Bilirubin 0.4 AST 30 ALT 31 Alkaline Phosphatase 112 Total Protein 6.2 L Albumin 3.4 L Lipase 248.4 07/06/18 10:50 WBC 5.3 RBC 3.47 L Hgb 9.8 L Hct 30.2 L MCV 87 MCH 28.3 MCHC 32.5 RDW 15.3 H Plt Count 297 Sodium Potassium Chloride Carbon Dioxide Anion Gap BUN Creatinine Est GFR ( Amer) Est GFR (Non-Af Amer) Glucose Calcium Phosphorus Magnesium Total Bilirubin AST ALT Alkaline Phosphatase Total Protein Albumin Lipase 07/06/18 07/06/18 14:37 14:37 Creatine Kinase 478 H CK-MB (CK-2) 3.14 Troponin I < 0.012 Impressions: Abdomen/Pelvis CT 07/04/18 07:34 IMPRESSION: Calcifications at the pancreatic head, prominent pancreatic duct from chronic pancreatitis. No retroperitoneal fluid or ascites. No peripancreatic cysts. Status: Imported from PACS Assessment and Plan - Diagnosis (1) Acute on chronic pancreatitis Is this a current diagnosis for this admission?: Yes Plan: Acute on chronic pancreatitis Initial lipase>4000 CT scan abdomen/pelvis reveals calcification of the pancreatic head, prominent pancreatic duct from chronic pancreatitis (unchanged from previous hospitalization) Clear liquid diet Maintenance IVF Initiate fentanyl patch for continued analgesia IV Dilaudid as needed abdominal pain Scheduled Reglan PRN Phenergan and Zofran (2) Type 2 diabetes mellitus Qualifiers: Diabetes mellitus long term care pharmacist insulin use: with retirement use Diabetes calixto gilman complication status: with hypoglycemia Diabetes mellitus complication detail: without coma Qualified Code(s): E11.649 - Type 2 diabetes mellitus with hypoglycemia without coma; Z79.4 - long term care pharmacist (current) use of insulin; Z79.4 - long-term (current) use of insulin; Z79.4 - long term care pharmacist (current) use of insulin; Z79.4 - long term care pharmacist (current) use of insulin Is this a current diagnosis for this admission?: Yes Plan: PMH type 2 diabetes Hemoglobin A1c with a.m. labs Continue home dose Lantus 30 units sc daily Accu-Cheks AC at bedtime Humalog sliding scale insulin - Time Time Spent with patient: 15-24 minutes Medications reviewed and adjusted accordingly: Yes Anticipated discharge: Home Within: within 36 hours - Inpatient Certification Based on my medical assessment, after consideration of the patient's comorbidities, presenting symptoms, or acuity I expect that the services needed warrant INPATIENT care.: Yes I certify that my determination is in accordance with my understanding of Medicare's requirements for reasonable and necessary INPATIENT services [42 CFR 412.3e].: Yes Medical Necessity: Need For Continuous Telemetry Monitoring
[2018-07-07] MEDS: HYDROMORPHONE HCL INJ/PF 2 MG/ML AMPULE IV PRN ×2 (01:01→05:44)
[2018-07-07] MEDS ORDERED: TOBRAMYCIN SULFATE/DEXAMETH OPH OINTMENT 3.5 GM ONE (01:59)
[2018-07-07] MEDS: METOCLOPRAMIDE HCL INJ/PF 10 MG/2 ML SDV IV SCH ×3 (03:35→21:15)
[2018-07-07] MEDS: TOBRAMYCIN SULFATE/DEXAMETH OPH OINTMENT 3.5 GM OD SCH ×4 (03:36→21:16)
[2018-07-07] MEDS ORDERED: DEXTROSE 5%-1/2 NORMAL SALINE 1,000 ML IV PRN (07:49)
[2018-07-07] MEDS ORDERED: PROMETHAZINE HCL 6.25 MG/5 ML SYRUP 60 ML PO PRN (08:50)
--- NOTE | 2018-07-07 09:20 | PDOC PROGRESS REPORT ---
Subjective Progress Note for:: 07/07/18 Subjective:: 37 y.o. F with a PMH of DM and chronic pancreatitis. She is well known to the [facility] medical staff. She presented to [facility] with acute abdominal pain. Of note, the patient was discharged home approximately 2 weeks ago for DKA and acute abdominal pain stemming from acute on chronic pancreatitis. Yesterday afternoon, the patient was noted to be very hypertensive, SBP>200. At that time, the patient was complaining of mild chest pain. She was administered 20 mg IV hydralazine. EKG showed NSR, no evidence of infarction or ischemia. Cardiac enzymes were WNL. Looking at her blood pressure trends, the patient appears to be mildly hypertensive throughout her hospitalization. Started on low-dose p.o. lisinopril. The patient was seen this morning on rounds, she is up washing her face this morning. The patient is stating that she does not have much abdominal pain this morning but states she feels nauseated...however, she also states she is very hungry. The patient is noted to be hypoglycemic today, her BG is between 45-65. The patient was not given her insulin overnight and she is tolerating her clear liquid diet very well. Unclear why the patient's blood sugars so low this morning. Patient was started on oral Phenergan today. Additionally, her diet was advanced from clear liquids to carb4 solid food. Reason For Visit: ACUTE ON CHRONIC PANCREATITIS,DM,COPD Physical Exam Vital Signs: Temp Pulse Resp BP Pulse Ox 98.9 F 100 18 149/84 H 96 07/07/18 00:00 07/07/18 00:00 07/07/18 00:00 07/07/18 00:00 07/07/18 00:00 Intake & Output 07/06/18 07/07/18 07/08/18 06:59 06:59 06:59 Intake Total 2660 1912 Balance 2660 1912 Weight 59.9 kg 56.2 kg General appearance: PRESENT: no acute distress, well-developed, well-nourished Head exam: PRESENT: atraumatic, normocephalic Eye exam: PRESENT: conjunctiva pink, EOMI, PERRLA. ABSENT: scleral icterus Ear exam: PRESENT: normal external ear exam Mouth exam: PRESENT: moist, tongue midline Neck exam: ABSENT: carotid bruit, JVD, lymphadenopathy, thyromegaly Respiratory exam: PRESENT: clear to auscultation teddy. ABSENT: rales, rhonchi, wheezes Cardiovascular exam: PRESENT: RRR. ABSENT: diastolic murmur, rubs, systolic murmur Pulses: PRESENT: normal dorsalis pedis pul Vascular exam: PRESENT: normal capillary refill GI/Abdominal exam: PRESENT: normal bowel sounds, soft, tenderness. ABSENT: distended, guarding, mass, organolmegaly, rebound Rectal exam: PRESENT: deferred Extremities exam: PRESENT: full ROM. ABSENT: calf tenderness, clubbing, pedal edema Neurological exam: PRESENT: alert, awake, oriented to person, oriented to place, oriented to time, oriented to situation Psychiatric exam: PRESENT: appropriate affect, normal mood Skin exam: PRESENT: dry, intact, warm. ABSENT: cyanosis, rash Results Laboratory Results: 07/06/18 10:50 07/06/18 06:17 07/06/18 07/06/18 06:17 10:50 WBC 5.3 RBC 3.47 L Hgb 9.8 L Hct 30.2 L MCV 87 MCH 28.3 MCHC 32.5 RDW 15.3 H Plt Count 297 Lipase 248.4 07/06/18 07/06/18 14:37 14:37 Creatine Kinase 478 H CK-MB (CK-2) 3.14 Troponin I < 0.012 Impressions: Abdomen/Pelvis CT 07/04/18 07:34 IMPRESSION: Calcifications at the pancreatic head, prominent pancreatic duct from chronic pancreatitis. No retroperitoneal fluid or ascites. No peripancreatic cysts. Status: Imported from PACS Assessment and Plan - Diagnosis (1) Acute on chronic pancreatitis Is this a current diagnosis for this admission?: Yes Plan: Acute on chronic pancreatitis Initial lipase>4000 now < 200 CT scan abdomen/pelvis reveals calcification of the pancreatic head, prominent pancreatic duct from chronic pancreatitis (unchanged from previous hospitalization) Advance diet to carb4 Maintenance IVF Fentanyl patch for continued analgesia IV Dilaudid as needed abdominal pain Scheduled Reglan PRN Phenergan and Zofran (2) Type 2 diabetes mellitus Qualifiers: Diabetes mellitus manager long term care insulin use: with fdc use Diabetes mellitus complication status: with hypoglycemia Diabetes mellitus complication detail: without coma Qualified Code(s): E11.649 - Type 2 diabetes mellitus with hypoglycemia without coma; Z79.4 - terminal clerk (current) use of insulin; Z79.4 - terminal clerk (current) use of insulin; Z79.4 - long-term (current) use of insulin; Z79.4 - terminal clerk (current) use of insulin Is this a current diagnosis for this admission?: Yes Plan: H type 2 diabetes Hemoglobin A1c with a.m. labs Continue home dose Lantus 30 units sc daily Accu-Cheks AC at bedtime Humalog sliding scale insulin - Time Time Spent with patient: 15-24 minutes Medications reviewed and adjusted accordingly: Yes Anticipated discharge: Home - Inpatient Certification Based on my medical assessment, after consideration of the patient's comorbidities, presenting symptoms, or acuity I expect that the services needed warrant INPATIENT care.: Yes I certify that my determination is in accordance with my understanding of Medicare's requirements for reasonable and necessary INPATIENT services [42 CFR 412.3e].: Yes Medical Necessity: Need for Pain Control, Risk of Complication if Not Cared For in Hospital
[2018-07-07] MEDS: INSULIN LISPRO 100 UNIT/ML 3 ML VIAL SUBCUT SCH ×3 (09:32→21:17)
[2018-07-07] MEDS: DOCUSATE SODIUM 100 MG CAPSULE PO SCH ×2 (09:57→18:39)
[2018-07-07] MEDS: FAMOTIDINE 20 MG TABLET PO SCH ×2 (09:59→21:16)
[2018-07-07] MEDS: ENOXAPARIN SODIUM INJ 40 MG/0.4 ML DISP.SYRIN SUBCUT SCH (09:59)
[2018-07-07] MEDS: LISINOPRIL 10 MG TABLET PO SCH (09:59)
[2018-07-07] MEDS: HYDROMORPHONE HCL 2 MG TABLET PO PRN ×3 (11:10→21:27)
[2018-07-07] MEDS: GABAPENTIN 100 MG CAPSULE PO SCH ×2 (11:12→21:16)
[2018-07-07] MEDS: METOCLOPRAMIDE HCL 10 MG TABLET PO SCH ×2 (11:40→16:15)
[2018-07-07] MEDS ORDERED: INSULIN LISPRO 100 UNIT/ML 3 ML VIAL SUBCUT ONE (12:00)
[2018-07-07] MEDS ORDERED: LISINOPRIL 10 MG TABLET PO ONE (12:00)
[2018-07-07] MEDS ORDERED: NITROGLYCERIN 2% OINTMENT 1 GM PACKET TP ONE (13:30)
--- NOTE | 2018-07-07 15:17 | RADIOLOGY REPORT (SQ) ---
EXAM DESCRIPTION: CHEST SINGLE VIEW COMPLETED DATE/TIME: 07/07/2018 3:02 pm REASON FOR STUDY: LINE PLACEMENT COMPARISON: 06/15/2018 EXAM PARAMETERS: NUMBER OF VIEWS: One view. TECHNIQUE: Single frontal radiographic view of the chest acquired. RADIATION DOSE: NA LIMITATIONS: None. FINDINGS: LUNGS AND PLEURA: No opacities, masses or pneumothorax. No pleural effusion. MEDIASTINUM AND HILAR STRUCTURES: No masses. Contour normal. HEART AND VASCULAR STRUCTURES: Heart normal in size. Normal vasculature. BONES: No acute findings. HARDWARE: None in the chest. OTHER: Unchanged position of right-sided central line. IMPRESSION: NO ACUTE RADIOGRAPHIC FINDING IN THE CHEST. TECHNICAL DOCUMENTATION: JOB ID: [id number] [employer]- All Rights Reserved Reading location - IP/workstation name: [email or web address]
--- NOTE | 2018-07-07 15:20 | OPERATIVE REPORT E ---
Operative Report NAME: JJ HOFFMAN : 1980 AGE: 37Y DATE OF SURGERY: 07/07/2018 ROOM: 436 PREOPERATIVE DIAGNOSES: 1. POOR VEINS FOR INTRAVENOUS ACCESS. 2. SEVERE HYPERTENSION. POSTOPERATIVE DIAGNOSES: 1. POOR VEINS FOR INTRAVENOUS ACCESS. 2. SEVERE HYPERTENSION. OPERATION: PLACEMENT OF RIGHT INTERNAL JUGULAR VEIN TRIPLE LUMEN CATHETER UNDER ULTRASOUND GUIDANCE. SURGEON: RADHIKA HAYES M.D. ANESTHESIA: Local. INDICATION: This is a 37-year-old female with severe hypertension and needed intravenous access for medications. She has poor peripheral veins for intravenous access. PROCEDURE: The patient was placed in slight Trendelenburg position and the right neck prepped and draped in the usual sterile fashion. With the use of the ultrasound, the right internal jugular vein was identified and local anesthesia infiltrated and needle passed through the skin toward the area of the internal jugular vein. Blood aspirated, was dark blood and nonpulsatile. Next, a guidewire passed through the needle toward the area of the superior vena cava, and the needle removed. The puncture site was then enlarged and dilated. Next, a triple lumen catheter was inserted through the guidewire and threaded up to a distance of about 17 cm. The triple lumen catheter aspirated blood easily and instilled saline easily. The catheter was then anchored to the skin with 3-0 Nylon. A Biopatch was placed at the insertion site and a transparent sterile dressing placed over the Biopatch and catheter. The patient tolerated the procedure well. Chest x-ray will be obtained for placement. DICTATING PHYSICIAN: RADHIKA HAYES M.D. [id number] PHY#: [id number] ID: [id number] JOB#: [id number] ACCT: [id number] cc:RADHIKA HAYES M.D. >
[2018-07-07] MEDS: INSULIN GLARGINE,HUM.REC.ANLOG 1,000 UNIT/10 ML VIAL SUBCUT SCH (21:15)
[2018-07-08] MEDS: METOCLOPRAMIDE HCL INJ/PF 10 MG/2 ML SDV IV SCH ×4 (02:19→21:21)
[2018-07-08] MEDS: TOBRAMYCIN SULFATE/DEXAMETH OPH OINTMENT 3.5 GM OD SCH ×4 (02:19→21:23)
[2018-07-08 05:27] LABS: HEMATOCRIT 24.1 % (36.0-47.0); HEMOGLOBIN 8.1 g/dL (12.0-15.5); MEAN CORPUSCULAR HGB CONC 33.5 g/dL (32.0-36.0); MEAN CORPUSCULAR VOLUME 87 fl (80-97); PLATELET COUNT 271 10^3/uL (150-450); RED BLOOD COUNT 2.78 10^6/uL (3.72-5.28); RED CELL DISTRIBUTION WIDTH 15.2 % (11.5-14.0); WHITE BLOOD COUNT 7.3 10^3/uL (4.0-10.5)
[2018-07-08] MEDS: HYDROMORPHONE HCL INJ/PF 2 MG/ML AMPULE IV PRN ×2 (05:31→20:08)
[2018-07-08 05:49] LABS: ALANINE AMINOTRANSFERASE 26 U/L (9-52); ALBUMIN 2.7 g/dL (3.5-5.0); ALKALINE PHOSPHATASE 95 U/L (38-126); ANION GAP 5 (5-19); ASPARTATE AMINO TRANSFERASE 21 U/L (14-36); BILIRUBIN,DIRECT 0.2 mg/dL (0.0-0.4); BILIRUBIN,TOTAL 0.2 mg/dL (0.2-1.3); BLOOD UREA NITROGEN 14 mg/dL (7-20); CALCIUM 8.9 mg/dL (8.4-10.2); CARBON DIOXIDE 27 mmol/L (22-30); CHLORIDE 109 mmol/L (98-107); GLUCOSE 97 mg/dL (75-110); PHOSPHORUS 4.1 mg/dL (2.5-4.5); SODIUM 141.2 mmol/L (137-145); TOTAL PROTEIN 5.3 g/dL (6.3-8.2)
[2018-07-08] MEDS: INSULIN LISPRO 100 UNIT/ML 3 ML VIAL SUBCUT SCH ×4 (07:34→21:22)
[2018-07-08] MEDS: HYDRALAZINE HCL INJ/PF 20 MG/1 ML SDV IV PRN ×2 (08:30→20:23)
[2018-07-08] MEDS: DOCUSATE SODIUM 100 MG CAPSULE PO SCH ×2 (09:24→17:49)
[2018-07-08] MEDS: GABAPENTIN 100 MG CAPSULE PO SCH ×2 (09:24→21:21)
[2018-07-08] MEDS: LISINOPRIL 10 MG TABLET PO SCH (09:24)
[2018-07-08] MEDS: ENOXAPARIN SODIUM INJ 40 MG/0.4 ML DISP.SYRIN SUBCUT SCH (09:24)
[2018-07-08] MEDS: FAMOTIDINE 20 MG TABLET PO SCH ×2 (09:24→21:21)
[2018-07-08] MEDS: CHLORTHALIDONE 25 MG TABLET PO SCH (09:56)
[2018-07-08] MEDS: NORMAL SALINE 1000 ML 1,000 ML IV PRN ×2 (09:57→09:59)
[2018-07-08] MEDS: HYDROMORPHONE HCL 2 MG TABLET PO PRN (11:47)
--- NOTE | 2018-07-08 16:12 | PDOC PROGRESS REPORT ---
Subjective Progress Note for:: 07/08/18 Subjective:: 37 y.o. F with a PMH of DM and chronic pancreatitis. She is well known to the [facility] medical staff. She presented to [facility] with acute abdominal pain. Of note, the patient was discharged home approximately 2 weeks ago for DKA and acute abdominal pain stemming from acute on chronic pancreatitis. The patient's lipase increased from 248-->400 today. She is able to tolerate her p.o. diet. Additionally, the patient no longer complains of epigastric/periumbilical pain. Today, the patient was noted to be very hypertensive, SBP>180. The patient was started on low-dose p.o. lisinopril yesterday, her BP remains uncontrolled. Started p.o. amlodipine today. Additionally, the patient is complaining of R flank pain and dysuria, "it augustine when I pee." Will obtain UA to evaluate for UTI. The patient has been hospitalized multiple times at [facility], oftentimes I am the provider caring for her. Historically, the patient does not have issues with her blood pressure. This is a new presentation. Will obtain renal US to evaluate for renal artery stenosis. Reason For Visit: ACUTE ON CHRONIC PANCREATITIS,DM,COPD Physical Exam Vital Signs: Temp Pulse Resp BP Pulse Ox 98.7 F 99 16 164/92 H 96 07/08/18 00:00 07/08/18 00:00 07/08/18 00:00 07/08/18 12:05 07/08/18 00:00 Intake & Output 07/07/18 07/08/18 07/09/18 06:59 06:59 06:59 Intake Total 1911 1871 368 Balance 1911 1871 368 Weight 56.2 kg 53.9 kg General appearance: PRESENT: no acute distress, well-developed, well-nourished Head exam: PRESENT: atraumatic, normocephalic Eye exam: PRESENT: conjunctiva pink, EOMI, PERRLA. ABSENT: scleral icterus Ear exam: PRESENT: normal external ear exam Mouth exam: PRESENT: moist, tongue midline Neck exam: ABSENT: carotid bruit, JVD, lymphadenopathy, thyromegaly Respiratory exam: PRESENT: clear to auscultation teddy, symmetrical, unlabored. ABSENT: rales, rhonchi, wheezes Cardiovascular exam: PRESENT: RRR. ABSENT: diastolic murmur, rubs, systolic murmur Pulses: PRESENT: normal radial pulses, normal dorsalis pedis pul Vascular exam: PRESENT: normal capillary refill GI/Abdominal exam: PRESENT: normal bowel sounds, soft. ABSENT: distended, guarding, mass, organolmegaly, rebound, tenderness Rectal exam: PRESENT: deferred Gentrourinary exam: PRESENT: other - +CVA TENDERNESS Extremities exam: PRESENT: full ROM. ABSENT: calf tenderness, clubbing, pedal edema Musculoskeletal exam: PRESENT: ambulatory, full ROM. ABSENT: deformity Neurological exam: PRESENT: alert, awake, oriented to person, oriented to place, oriented to time, oriented to situation Psychiatric exam: PRESENT: appropriate affect, normal mood Skin exam: PRESENT: dry, intact, warm. ABSENT: cyanosis, rash Results Laboratory Results: 07/08/18 04:50 07/08/18 04:50 07/08/18 07/08/18 04:50 04:50 WBC 7.3 RBC 2.78 L Hgb 8.1 L Hct 24.1 L MCV 87 MCH 29.0 MCHC 33.5 RDW 15.2 H Plt Count 271 Sodium 141.2 Potassium 4.0 Chloride 109 H Carbon Dioxide 27 Anion Gap 5 BUN 14 Creatinine 1.26 H Est GFR ( Amer) 58 L Est GFR (Non-Af Amer) 48 L Glucose 97 Calcium 8.9 Phosphorus 4.1 Magnesium 1.9 Total Bilirubin 0.2 AST 21 ALT 26 Alkaline Phosphatase 95 Total Protein 5.3 L Albumin 2.7 L Lipase 400.0 H 07/06/18 07/06/18 14:37 14:37 Creatine Kinase 478 H CK-MB (CK-2) 3.14 Troponin I < 0.012 Impressions: Abdomen/Pelvis CT 07/04/18 07:34 IMPRESSION: Calcifications at the pancreatic head, prominent pancreatic duct from chronic pancreatitis. No retroperitoneal fluid or ascites. No peripancreatic cysts. Chest X-Ray 07/07/18 14:25 IMPRESSION: NO ACUTE RADIOGRAPHIC FINDING IN THE CHEST. Status: Imported from PACS Assessment and Plan - Diagnosis (1) Acute on chronic pancreatitis Is this a current diagnosis for this admission?: Yes Plan: Acute on chronic pancreatitis Initial lipase>[address] scan abdomen/pelvis reveals calcification of the pancreatic head, prominent pancreatic duct from chronic pancreatitis (unchanged from previous hospitalization) Advance diet to carb4/cardiac Maintenance IVF Fentanyl patch for continued analgesia IV Dilaudid as needed abdominal pain Scheduled Reglan PRN Phenergan and Zofran (2) Type 2 diabetes mellitus Qualifiers: Diabetes mellitus emt intermediate insulin use: with emt intermediate use Diabetes mellitus complication status: with hypoglycemia Diabetes mellitus complication detail: without coma Qualified Code(s): E11.649 - Type 2 diabetes mellitus w ith hypoglycemia without coma; Z79.4 - correction (current) use of insulin; Z79.4 - termite technician (current) use of insulin; Z79.4 - correction (current) use of insulin; Z79.4 - termite technician (current) use of insulin Is this a current diagnosis for this admission?: Yes Plan: PMH type 2 diabetes Hemoglobin A1c with a.m. labs Continue home dose Lantus 30 units sc daily Accu-Cheks AC at bedtime Humalog sliding scale insulin (3) Hypertension Qualifiers: Hypertension type: essential hypertension Qualified Code(s): I10 - Essential (primary) hypertension Is this a current diagnosis for this admission?: Yes Plan: Patient is very hypertensive, SBP oftentimes > 200 IV hydralazine 20mg PRN Initiated lisinopril yesterday Will start amlodipine today Patient does not take anti-HTN at home Plan for renal US for renal artery stenosis - Time Time Spent with patient: 15-24 minutes Medications reviewed and adjusted accordingly: Yes Anticipated discharge: Home Within: Other - when medicall stable - Inpatient Certification Based on my medical assessment, after consideration of the patient's comorbidities, presenting symptoms, or acuity I expect that the services needed warrant INPATIENT care.: Yes I certify that my determination is in accordance with my understanding of Medicare's requirements for reasonable and necessary INPATIENT services [42 CFR 412.3e].: Yes Medical Necessity: Need For Continuous Telemetry Monitoring, Risk of Complication if Not Cared For in Hospital
[2018-07-08] MEDS: AMLODIPINE BESYLATE 10 MG TABLET PO SCH (16:39)
[2018-07-08 17:09] LABS: APPEARANCE,URINE CLEAR; BILIRUBIN,URINE NEGATIVE (NEGATIVE); COLOR,URINE STRAW; GLUCOSE, URINE 50 mg/dL (NEGATIVE); KETONES,URINE NEGATIVE (NEGATIVE); LEUKOCYTE ESTERASE,URINE NEGATIVE (NEGATIVE); NITRITE,URINE NEGATIVE (NEGATIVE); PROTEIN,URINE 100 mg/dL (NEGATIVE); URINE SPECIFIC GRAVITY 1.008; UROBILINOGEN,URINE NEGATIVE mg/dL (<2.0)
[2018-07-08] MEDS: INSULIN GLARGINE,HUM.REC.ANLOG 1,000 UNIT/10 ML VIAL SUBCUT SCH (21:29)
[2018-07-09] MEDS: HYDROMORPHONE HCL INJ/PF 2 MG/ML AMPULE IV PRN ×5 (00:12→21:01)
[2018-07-09] MEDS: NORMAL SALINE 1000 ML 1,000 ML IV PRN (00:13)
[2018-07-09] MEDS: METOCLOPRAMIDE HCL INJ/PF 10 MG/2 ML SDV IV SCH ×4 (02:29→21:01)
[2018-07-09] MEDS: TOBRAMYCIN SULFATE/DEXAMETH OPH OINTMENT 3.5 GM OD SCH ×2 (02:29→08:14)
[2018-07-09] MEDS: HYDRALAZINE HCL INJ/PF 20 MG/1 ML SDV IV PRN (05:53)
[2018-07-09] MEDS: INSULIN LISPRO 100 UNIT/ML 3 ML VIAL SUBCUT SCH ×4 (07:40→22:22)
--- NOTE | 2018-07-09 08:11 | RADIOLOGY REPORT (SQ) ---
EXAM DESCRIPTION: U/S LTD DUPLEX ART/RAYMOND FLOW COMPLETED DATE/TIME: 07/09/2018 5:16 am REASON FOR STUDY: eval renal for renal artery stenosis COMPARISON: None. TECHNIQUE: Realtime and static grayscale images acquired. Selected color Doppler, velocities and spe ctral images recorded. LIMITATIONS: None. FINDINGS: RIGHT KIDNEY: RENAL ARTERY VELOCITIES: 78- 134 cm/sec. Segmental artery velocity 32 cm/sec. RENAL VEIN: Color doppler flow present, patent. VELOCITY RATIO: 1.0. Normal waveforms. KIDNEY: Normal size. No significant pathology. LEFT KIDNEY: RENAL ARTERY VELOCITIES: 64- 87 cm/sec. Segmental artery velocity 40 cm/sec. RENAL VEIN: Color doppler flow present, patent. VELOCITY RATIO: 0.58. Normal waveforms. KIDNEY: Normal size. No significant pathology. BLADDER: Not imaged. OTHER: No other significant finding. IMPRESSION: NO DOPPLER EVIDENCE OF HEMODYNAMICALLY SIGNIFICANT RENAL ARTERY STENOSIS. COMMENT: NORMAL RENAL ARTERY/AORTA VELOCITY RATIO IS LESS THAN OR EQUAL TO 3.5. TECHNICAL DOCUMENTATION: JOB ID: [id number] [employer]- All Rights Reserved Reading location - IP/workstation name: [email or web address]
[2018-07-09] MEDS: FENTANYL 25 MCG/HR PATCH.TD72 TD SCH (09:10)
[2018-07-09] MEDS: ENOXAPARIN SODIUM INJ 40 MG/0.4 ML DISP.SYRIN SUBCUT SCH (09:10)
[2018-07-09] MEDS: FAMOTIDINE 20 MG TABLET PO SCH ×2 (09:11→21:02)
[2018-07-09] MEDS: CHLORTHALIDONE 25 MG TABLET PO SCH (09:11)
[2018-07-09] MEDS: METOPROLOL SUCCINATE 25 MG TAB.SR.24H PO SCH ×2 (09:11→21:02)
[2018-07-09] MEDS: DOCUSATE SODIUM 100 MG CAPSULE PO SCH ×2 (09:11→17:18)
[2018-07-09] MEDS: GABAPENTIN 100 MG CAPSULE PO SCH ×2 (09:11→21:02)
[2018-07-09] MEDS: AMLODIPINE BESYLATE 10 MG TABLET PO SCH (09:11)
[2018-07-09] MEDS: LISINOPRIL 10 MG TABLET PO SCH (09:11)
[2018-07-09] MEDS: INSULIN GLARGINE,HUM.REC.ANLOG 1,000 UNIT/10 ML VIAL SUBCUT SCH (13:58)
--- NOTE | 2018-07-09 16:36 | PDOC PROGRESS REPORT ---
Subjective Progress Note for:: 07/09/18 Subjective:: 37 y.o. F with a PMH of DM and chronic pancreatitis. She is well known to the [facility] medical staff. She presented to [facility] with acute abdominal pain. Of note, the patient was discharged home approximately 2 weeks ago for DKA and acute abdominal pain stemming from acute on chronic pancreatitis. The patient is still noted to be very hypertensive, SBP>180. The patient is already on lisinopril, amlodipine and chlorthalidone. Plan to initiate p.o. Toprol-XL. Renal artery ultrasound done yesterday, negative for renal artery stenosis. The nurse reported that the Fentanyl patch was 'missing' yesterday evening. Patient stated she didn't know where it was. Due to patient's long history of narcotic dependency and risky behavior, discontinued fentanyl patch order today. Reason For Visit: ACUTE ON CHRONIC PANCREATITIS,DM,COPD Physical Exam Vital Signs: Temp Pulse Resp BP Pulse Ox 97.5 F 92 14 155/92 H 98 07/09/18 13:00 07/09/18 13:00 07/09/18 13:00 07/09/18 13:00 07/09/18 13:00 Intake & Output 07/08/18 07/09/18 07/10/18 06:59 06:59 06:59 Intake Total 1871 1987 Balance 1871 1987 Weight 53.9 kg 55.3 kg General appearance: PRESENT: no acute distress, well-developed, well-nourished Head exam: PRESENT: atraumatic Eye exam: PRESENT: conjunctiva pink, PERRLA Mouth exam: PRESENT: moist, tongue midline Teeth exam: PRESENT: poor dentation Neck exam: PRESENT: full ROM Respiratory exam: PRESENT: clear to auscultation teddy, symmetrical, unlabored Cardiovascular exam: PRESENT: RRR Pulses: PRESENT: normal radial pulses, normal dorsalis pedis pul GI/Abdominal exam: PRESENT: soft. ABSENT: distended, tenderness Rectal exam: PRESENT: deferred Extremities exam: PRESENT: full ROM. ABSENT: pedal edema Musculoskeletal exam: PRESENT: ambulatory, full ROM Neurological exam: PRESENT: alert, awake, oriented to person, oriented to place, oriented to time, oriented to situation Psychiatric exam: PRESENT: appropriate affect Skin exam: PRESENT: dry, intact, normal color Results Laboratory Results: 07/08/18 04:50 07/08/18 04:50 07/08/18 15:15 Urine Color STRAW Urine Appearance CLEAR Urine pH 6.0 Ur Specific Sarver 1.008 Urine Protein 100 H Urine Glucose (UA) 50 H Urine Ketones NEGATIVE Urine Blood NEGATIVE Urine Nitrite NEGATIVE Ur Leukocyte Esterase NEGATIVE Urine WBC (Auto) 0 Urine RBC (Auto) 0 07/06/18 07/06/18 14:37 14:37 Creatine Kinase 478 H CK-MB (CK-2) 3.14 Troponin I < 0.012 Impressions: Abdomen/Pelvis CT 07/04/18 07:34 IMPRESSION: Calcifications at the pancreatic head, prominent pancreatic duct from chronic pancreatitis. No retroperitoneal fluid or ascites. No peripancreatic cysts. Chest X-Ray 07/07/18 14:25 IMPRESSION: NO ACUTE RADIOGRAPHIC FINDING IN THE CHEST. Vascular Ultrasound 07/09/18 16:13 IMPRESSION: NO DOPPLER EVIDENCE OF HEMODYNAMICALLY SIGNIFICANT RENAL ARTERY STENOSIS. Status: Imported from PACS Assessment and Plan - Diagnosis (1) Acute on chronic pancreatitis Is this a current diagnosis for this admission?: Yes Plan: Acute on chronic pancreatitis Initial lipase>[address] scan abdomen/pelvis reveals calcification of the pancreatic head, prominent pancreatic duct from chronic pancreatitis (unchanged from previous hospita lization) Able to tolerate carb4/cardiac diet Maintenance IVF IV Dilaudid as needed abdominal pain Scheduled Reglan PRN Phenergan and Zofran (2) Type 2 diabetes mellitus Qualifiers: Diabetes mellitus intermediate insulin use: with intermediate use Diabetes mellitus complication status: with hypoglycemia Diabetes mellitus complication detail: without coma Qualified Code(s): E11.649 - Type 2 diabetes mellitus with hypoglycemia without coma; Z79.4 - detention (current) use of insulin; Z79.4 - detention (current) use of insulin; Z79.4 - detention (current) use of insulin; Z79.4 - terminal carman (current) use of insulin Is this a current diagnosis for this admission?: Yes Plan: PMH type 2 diabetes Continue home dose Lantus 30 units sc daily Accu-Cheks AC at bedtime Humalog sliding scale insulin (3) Hypertension Qualifiers: Hypertension type: essential hypertension Qualified Code(s): I10 - Essential (primary) hypertension Is this a current diagnosis for this admission?: Yes Plan: Patient is very hypertensive, SBP oftentimes > 200 IV hydralazine 20mg PRN Continue lisinopril, amlodipine and chlorthalidone Initiate Toprol-XL today Patient does not take anti-HTN at home Renal US negative for renal artery stenosis Patient is now on a BB, ACEI, thiazide, and CCB. If the patient remains hype rtensive, will consult cardiology. - Time Medications reviewed and adjusted accordingly: Yes Anticipated discharge: Home Within: Other - when medically stable - Inpatient Certification Based on my medical assessment, after consideration of the patient's comorbidities, presenting symptoms, or acuity I expect that the services needed warrant INPATIENT care.: Yes I certify that my determination is in accordance with my understanding of Medicare's requirements for reasonable and necessary INPATIENT services [42 CFR 412.3e].: Yes Medical Necessity: Need Close Monitoring Due to Risk of Patient Decompensation, Need For Continuous Telemetry Monitoring, Need for Pain Control, Risk of Complication if Not Cared For in Hospital
[2018-07-10] MEDS: HYDROMORPHONE HCL INJ/PF 2 MG/ML AMPULE IV PRN ×4 (03:15→17:41)
[2018-07-10] MEDS: METOCLOPRAMIDE HCL INJ/PF 10 MG/2 ML SDV IV SCH ×4 (03:15→21:10)
[2018-07-10] MEDS: NORMAL SALINE 1000 ML 1,000 ML IV PRN (06:00)
[2018-07-10] MEDS: INSULIN LISPRO 100 UNIT/ML 3 ML VIAL SUBCUT SCH ×4 (07:21→22:35)
[2018-07-10] MEDS: INSULIN GLARGINE,HUM.REC.ANLOG 1,000 UNIT/10 ML VIAL SUBCUT SCH (09:06)
[2018-07-10] MEDS: ENOXAPARIN SODIUM INJ 40 MG/0.4 ML DISP.SYRIN SUBCUT SCH (09:06)
[2018-07-10] MEDS: FAMOTIDINE 20 MG TABLET PO SCH ×2 (09:07→21:10)
[2018-07-10] MEDS: LISINOPRIL 10 MG TABLET PO SCH (09:07)
[2018-07-10] MEDS: DOCUSATE SODIUM 100 MG CAPSULE PO SCH ×2 (09:07→17:41)
[2018-07-10] MEDS: METOPROLOL SUCCINATE 25 MG TAB.SR.24H PO SCH (09:07)
[2018-07-10] MEDS: GABAPENTIN 100 MG CAPSULE PO SCH ×2 (09:07→21:10)
[2018-07-10] MEDS: AMLODIPINE BESYLATE 10 MG TABLET PO SCH (09:08)
[2018-07-10] MEDS: CHLORTHALIDONE 25 MG TABLET PO SCH (09:15)
[2018-07-10] MEDS: HYDRALAZINE HCL INJ/PF 20 MG/1 ML SDV IV PRN (16:00)
--- NOTE | 2018-07-10 16:11 | PDOC PROGRESS REPORT ---
Subjective Progress Note for:: 07/10/18 Subjective:: 37 y.o. F with a PMH of DM and chronic pancreatitis. She is well known to the [facility] medical staff. She presented to [facility] with acute abdominal pain. Of note, the patient was discharged home approximately 2 weeks ago for DKA and acute abdominal pain stemming from acute on chronic pancreatitis. The patient is still noted to be very hypertensive, SBP>180. The patient is already on lisinopril, amlodipine and chlorthalidone. Toprol-XL added yesterday, will increase dose today. Renal artery ultrasound done yesterday, negative for renal artery stenosis. Reason For Visit: ACUTE ON CHRONIC PANCREATITIS,DM,COPD Physical Exam Vital Signs: Temp Pulse Resp BP Pulse Ox 98.0 F 83 19 150/83 H 98 07/10/18 01:00 07/10/18 01:00 07/10/18 01:00 07/10/18 01:00 07/10/18 01:00 Intake & Output 07/09/18 07/10/18 07/11/18 06:59 06:59 06:59 Intake Total 1987 3090 680 Balance 1987 3090 680 Weight 55.3 kg 52.8 kg General appearance: PRESENT: no acute distress, well-developed, well-nourished Head exam: PRESENT: atraumatic, normocephalic Eye exam: PRESENT: conjunctiva pink, EOMI, PERRLA. ABSENT: scleral icterus Ear exam: PRESENT: normal external ear exam Mouth exam: PRESENT: moist, tongue midline Neck exam: ABSENT: carotid bruit, JVD, lymphadenopathy, thyromegaly Respiratory exam: PRESENT: clear to auscultation teddy, symmetrical, unlabored. ABSENT: rales, rhonchi, wheezes Cardiovascular exam: PRESENT: RRR. ABSENT: diastolic murmur, rubs, systolic murmur Pulses: PRESENT: normal radial pulses, normal dorsalis pedis pul Vascular exam: PRESENT: normal capillary refill GI/Abdominal exam: PRESENT: normal bowel sounds, soft. ABSENT: distended, guarding, mass, organolmegaly, rebound, tenderness Rectal exam: PRESENT: deferred Extremities exam: PRESENT: full ROM, pedal edema - TRACE. ABSENT: calf tenderness, clubbing Musculoskeletal exam: PRESENT: ambulatory, full ROM Neurological exam: PRESENT: alert, awake, oriented to person, oriented to place, oriented to time, oriented to situation Psychiatric exam: PRESENT: appropriate affect, normal mood. ABSENT: homicidal ideation, suicidal ideation Skin exam: PRESENT: dry, intact, warm. ABSENT: cyanosis, rash Results Laboratory Results: 07/08/18 04:50 07/08/18 04:50 07/06/18 07/06/18 14:37 14:37 Creatine Kinase 478 H CK-MB (CK-2) 3.14 Troponin I < 0.012 Impressions: Abdomen/Pelvis CT 07/04/18 07:34 IMPRESSION: Calcifications at the pancreatic head, prominent pancreatic duct from chronic pancreatitis. No retroperitoneal fluid or ascites. No peripancreatic cysts. Chest X-Ray 07/07/18 14:25 IMPRESSION: NO ACUTE RADIOGRAPHIC FINDING IN THE CHEST. Vascular Ultrasound 07/09/18 16:13 IMPRESSION: NO DOPPLER EVIDENCE OF HEMODYNAMICALLY SIGNIFICANT RENAL ARTERY STENOSIS. Status: Imported from PACS Assessment and Plan - Diagnosis (1) Acute on chronic pancreatitis Is this a current diagnosis for this admission?: Yes Plan: Acute on chronic pancreatitis Initial lipase>[address] scan abdomen/pelvis reveals calcification of the pancreatic head, prominent pancreatic duct from chronic pancreatitis (unchanged from previous hospitalization) Able to tolerate carb4/cardiac diet Maintenance IVF IV Dilaudid as needed abdominal pain Scheduled Reglan PRN Phenergan and Zofran Patient was receiving Fentanyl patch (trialed 1 day for pain relief), the nurse reported that the Fentanyl patch was 'missing' the other evening. Patient stated she didn't know where it was. Due to patient's long history of narcotic dependency and risky behavior, discontinued fentanyl patch order. (2) Type 2 diabetes mellitus Qualifiers: Diabetes mellitus care home insulin use: with oil heaterman use Diabetes mellitus complication status: with hypoglycemia Diabetes mellitus complication detail: without coma Qualified Code(s): E11.649 - Type 2 diabetes mellitus w ith hypoglycemia without coma; Z79.4 - shelter (current) use of insulin; Z79.4 - remote computer terminal operator (current) use of insulin; Z79.4 - remote computer terminal operator (current) use of insulin; Z79.4 - remote computer terminal operator (current) use of insulin Is this a current diagnosis for this admission?: Yes Plan: PMH type 2 diabetes Continue home dose Lantus 30 units sc daily Accu-Cheks AC at bedtime Humalog sliding scale insulin (3) Hypertension Qualifiers: Hypertension type: essential hypertension Qualified Code(s): I10 - Essential (primary) hypertension Is this a current diagnosis for this admission?: Yes Plan: Patient is very hypertensive, SBP oftentimes > 200 IV hydralazine 20mg PRN Continue lisinopril, amlodipine and chlorthalidone InitiateD Toprol-XL yesterday, will increase dose from 25-->50 mg BID Patient does not take anti-HTN at home Renal US negative for renal artery stenosis Patient is now on a BB, ACEI, thiazide, and CCB. If the patient remains hypertensive, will consult cardiology. - Time Time Spent with patient: 15-24 minutes Medications reviewed and adjusted accordingly: Yes Anticipated discharge: Home Within: within 72 hours - Inpatient Certification Based on my medical assessment, after consideration of the patient's comorbidities, presenting symptoms, or acuity I expect that the services needed warrant INPATIENT care.: Yes I certify that my determination is in accordance with my understanding of Medicare's requirements for reasonable and necessary INPATIENT services [42 CFR 412.3e].: Yes Medical Necessity: Need For Continuous Telemetry Monitoring, Risk of Complication if Not Cared For in Hospital, Other - BLOOD PRESSURE CONTROL
[2018-07-10] MEDS: METOPROLOL TARTRATE 50 MG TABLET PO SCH (21:10)
[2018-07-11] MEDS: METOCLOPRAMIDE HCL INJ/PF 10 MG/2 ML SDV IV SCH ×2 (02:29→09:20)
[2018-07-11 05:30] LABS: HEMATOCRIT 24.4 % (36.0-47.0); MEAN CORPUSCULAR HEMOGLOBIN 28.6 pg (27.0-33.4); MEAN CORPUSCULAR HGB CONC 32.9 g/dL (32.0-36.0); MEAN CORPUSCULAR VOLUME 87 fl (80-97); PLATELET COUNT 201 10^3/uL (150-450); RED BLOOD COUNT 2.81 10^6/uL (3.72-5.28); RED CELL DISTRIBUTION WIDTH 15.4 % (11.5-14.0); WHITE BLOOD COUNT 6.1 10^3/uL (4.0-10.5)
[2018-07-11 05:49] LABS: ALANINE AMINOTRANSFERASE 17 U/L (9-52); ALBUMIN 2.9 g/dL (3.5-5.0); ALKALINE PHOSPHATASE 87 U/L (38-126); ANION GAP 5 (5-19); ASPARTATE AMINO TRANSFERASE 14 U/L (14-36); BILIRUBIN,DIRECT 0.1 mg/dL (0.0-0.4); BILIRUBIN,TOTAL 0.1 mg/dL (0.2-1.3); BLOOD UREA NITROGEN 20 mg/dL (7-20); CALCIUM 9.1 mg/dL (8.4-10.2); CARBON DIOXIDE 29 mmol/L (22-30); CHLORIDE 107 mmol/L (98-107); GLUCOSE 105 mg/dL (75-110); LIPASE 399.1 U/L (23-300); SODIUM 141.1 mmol/L (137-145); TOTAL PROTEIN 5.5 g/dL (6.3-8.2)
[2018-07-11] MEDS: HYDROMORPHONE HCL INJ/PF 2 MG/ML AMPULE IV PRN (05:49)
[2018-07-11 06:40] VITALS: BP 125/75
[2018-07-11] MEDS: INSULIN LISPRO 100 UNIT/ML 3 ML VIAL SUBCUT SCH ×2 (07:30→10:53)
[2018-07-11] MEDS ORDERED: HYDROMORPHONE HCL 2 MG TABLET PO PRN (08:49)
[2018-07-11] MEDS: LISINOPRIL 10 MG TABLET PO SCH (09:19)
[2018-07-11] MEDS: AMLODIPINE BESYLATE 10 MG TABLET PO SCH (09:19)
[2018-07-11] MEDS: FAMOTIDINE 20 MG TABLET PO SCH (09:19)
[2018-07-11] MEDS: DOCUSATE SODIUM 100 MG CAPSULE PO SCH (09:19)
[2018-07-11] MEDS: METOPROLOL TARTRATE 50 MG TABLET PO SCH (09:19)
[2018-07-11] MEDS: GABAPENTIN 100 MG CAPSULE PO SCH (09:19)
[2018-07-11] MEDS: CHLORTHALIDONE 25 MG TABLET PO SCH (09:20)
[2018-07-11] MEDS: ENOXAPARIN SODIUM INJ 40 MG/0.4 ML DISP.SYRIN SUBCUT SCH (09:20)
[2018-07-11] MEDS: INSULIN GLARGINE,HUM.REC.ANLOG 1,000 UNIT/10 ML VIAL SUBCUT SCH (10:50)
== END 2018-07-11 15:02 | disposition home or self-care (01) | DRG 440 ==
LOC: ER 00:48 → INTOOBSV 09:43 → EH 09:43 → OBSVTOIN 09:51 → 4S 11:03 → OBSVTOIN 14:13 → INTOOBSV 14:13 → 4S 07-05 22:43
PROVIDERS: ADMIT Internal Medicine; ATTEND Internal Medicine
PROC: 02HV33Z Insertion of Infusion Device into Superior Vena Cava, Percutaneous Approach (ICD-10-PCS; principal; 2018-07-07)
PROC: B548ZZA Ultrasonography of Superior Vena Cava, Guidance (ICD-10-PCS; 2018-07-07)
DX: K85.90 Acute pancreatitis without necrosis or infection, unspecified (principal); K86.1 Other chronic pancreatitis; J44.9 Chronic obstructive pulmonary disease, unspecified; I10 Essential (primary) hypertension; E78.5 Hyperlipidemia, unspecified; D64.9 Anemia, unspecified; E10.65 Type 1 diabetes mellitus with hyperglycemia; I87.2 Venous insufficiency (chronic) (peripheral); F17.210 Nicotine dependence, cigarettes, uncomplicated; Z88.6 Allergy status to analgesic agent; Z79.4 Long term (current) use of insulin; Z90.710 Acquired absence of both cervix and uterus; Z83.3 Family history of diabetes mellitus; Z82.49 Family history of ischemic heart disease and other diseases of the circulatory system
CPT/HCPCS: 36415; 71045; 74177; 80048; 80053; 81001; 82550; 82553; 82803; 82962; 83036; 83690; 83735; 84100; 84484; 85025; 85027; 93005; 93010; 93976; 96361; 96372; 96374; 96375; 96376; 99285; C1751; J0360; J1170; J1200; J1642; J1650; J1815; J2405; J2550; J2765; J3010; J3490; J7030; S0119

== ENCOUNTER 2018-07-15 15:20 | Inpatient (IN) | payer MEDICAID ==
[2018-07-15] MEDS ORDERED: HYDROMORPHONE HCL INJ/PF 2 MG/ML AMPULE IV ONE (15:58)
[2018-07-15] MEDS ORDERED: ONDANSETRON HCL INJ/PF 4 MG/2 ML SDV IV ONE (15:58)
--- NOTE | 2018-07-15 16:05 | ER Document Report ---
ED GI/ - General Chief Complaint: Abdominal Pain Stated Complaint: ABDOMINAL PAIN Time Seen by Provider: 07/15/18 15:58 Primary Care Provider: RONALD BARKER FNP-C [Primary Care Provider] - Follow up as needed Notes: Patient is complaining of stomach pain since last evening and then this morning started vomiting, coffee-ground, not gross blood.. Says she is vomited at least 20 times. Points to the epigastric region of the abdomen is where her pain is located. This is a chronic, recurrent pain. Patient says she has had previous episodes of pancreatitis and this feels the same. No trouble with bowel movem ents. Denies any fever. Patient has not had alcohol to drink for 7 years. EMS note patient had multiple seizures before arrival here in the emergency department. They were described as being pseudoseizures. Patient says that she is supposed to be taking Dilantin for seizures, but has not been able to afford them.. PMH: Partial hysterectomy and . History of kidney disease. History of COPD. Smoker. TRAVEL OUTSIDE OF THE [place] IN LAST 30 DAYS: No - Related Data Allergies/Adverse Reactions: hydrocodone [From [facility]] Allergy (Verified 06/15/18 07:15) morphine Allergy (Verified 06/15/18 07:15) Past Medical History - Social History Smoking Status: Unknown if Ever Smoked Frequency of alcohol use: None - No alcohol for 7 years. Family History: Reviewed & Not Pertinent, DM, Hypertension - Past Medical History Cardiac Medical History: Reports: Hx Hypercholesterolemia, Hx Hypertension Pulmonary Medical History: Reports: Hx COPD Neurological Medical History: Reports: Hx Seizures Endocrine Medical History: Reports: Hx Diabetes Mellitus Type 1, Hx Diabetes Mellitus Type 2 GI Medical History: Reports: Hx Pancreatitis Past Surgical History: Reports: Hx Section - x3, Hx Hysterectomy Review of Systems - Review of Systems Notes: REVIEW OF SYSTEMS: CONSTITUTIONAL : Denies fever. EENT: Denies eye, ear, nose or mouth or throat pain or other symptoms. CARDIOVASCULAR: Denies chest pain. RESPIRATORY: Denies cough, chest congestion, or shortness of breath. GASTROINTESTINAL: See HPI. GENITOURINARY: Denies difficulty or painful urinating, urinary frequency, blood in urine. MUSCULOSKELETAL: Denies back or neck pain. Denies joint pain or swelling. SKIN: Denies rash or skin lesions. NEUROLOGICAL: Denies LOC or altered mental status. Denies headache. Denies sensory loss or motor deficits. ALL OTHER SYSTEMS REVIEWED AND NEGATIVE. Physical Exam - Vital signs Vitals: Resp BP Pulse Ox 16 221/128 H 100 07/15/18 15:26 07/15/18 15:26 07/15/18 15:26 Interpretation: Hypertensive Notes: PHYSICAL EXAMINATION: GENERAL: Patient is tearful, in pain and anxious. Blood pressure 221/128 initially HEAD: Atraumatic, normocephalic. EYES: Pupils equal round and reactive to light, extraocular movements intact. ENT: oropharynx clear without exudates. Moist mucous membranes. NECK: Normal range of motion, supple. LUNGS: Breath sounds clear and equal bilaterally. HEART: Regular rate and rhythm without murmurs. ABDOMEN: Tender in the epigastric region. Also tender in the lower suprapubic midline region. Moderate guarding to palpation in the epigastrium. No masses felt. No bruits heard. BACK: No tenderness throughout entire back. EXTREMITIES: Normal range of motion without pain. NEUROLOGICAL: Normal speech, normal gait. Normal sensory, motor, and reflex exams. Awake, alert, and oriented x3. Cranial nerves normal. PSYCH: Normal mood, normal affect. SKIN: Warm, dry, no rashes. Course - Re-evaluation Re-evalutation: 07/15/18 17:41 Pain is better after Dilaudid IV. No longer vomiting after Zofran by EMS and also here. lead oxide mill tender in the epigastric abdomen. Lipase only 419, probably chronic, "burned-out" pancreas. Blood pressure declined significantly after receiving pain medication. 07/15/18 18:05 Blood pressure continues to creep upward with latest blood pressure 189/115. Going to give her 10 mg of hydralazine IV. Patient will be admitted to telemetry under the hospitalist service. - Vital Signs Vital signs: Temp Pulse Resp BP Pulse Ox 98.2 F 110 H 17 189/115 H 100 07/15/18 15:34 07/15/18 15:34 07/15/18 17:01 07/15/18 17:00 07/15/18 17:01 - Laboratory Result Diagrams: 07/15/18 15:40 07/15/18 15:40 Laboratory results interpreted by me: 07/15/18 07/15/18 07/15/18 15:40 15:40 16:50 WBC 15.6 H Hgb 11.5 L Hct 35.2 L RDW 14.9 H Seg Neutrophils % 88.4 H Lymphocytes % 9.7 L Monocytes % 1.6 L Absolute Neutrophils 13.8 H Chloride 96 L BUN 28 H Creatinine 1.42 H Est GFR ( Amer) 50 L Est GFR (Non-Af Amer) 42 L Glucose 215 H Calcium 10.9 H Direct Bilirubin 0.6 H AST 38 H Alkaline Phosphatase 166 H Total Protein 9.4 H Lipase 419.5 H Urine Protein >=500 H Urine Glucose (UA) >=500 H Urine Ketones 20 H Urine Blood SMALL H Discharge - Discharge Clinical Impression: Pancreatitis, Vomiting, Seizures, Hypertension Condition: Stable Disposition: ADMITTED OBSERVATION Admitting Provider: Cheo (Hospitalist) Unit Admitted: Telemetry Referrals: RONALD BARKER FNP-C [Primary Care Provider] - Follow up as needed
[2018-07-15 16:38] LABS: ABSOLUTE LYMPHOCYTES (AUTO) 1.5 10^3/uL (0.5-4.7); ABSOLUTE MONOCYTES (AUTO) 0.2 10^3/uL (0.1-1.4); ABSOLUTE NEUT (AUTO) 13.8 10^3/uL (1.7-8.2); BASOPHILS % (AUTO) 0.2 % (0-2); EOSINOPHILS % (AUTO) 0.1 % (0-6); HEMATOCRIT 35.2 % (36.0-47.0); HEMOGLOBIN 11.5 g/dL (12.0-15.5); LYMPHOCYTES % (AUTO) 9.7 % (13-45); MEAN CORPUSCULAR HGB CONC 32.7 g/dL (32.0-36.0); MEAN CORPUSCULAR VOLUME 86 fl (80-97); MONOCYTES % (AUTO) 1.6 % (3-13); RED BLOOD COUNT 4.11 10^6/uL (3.72-5.28); RED CELL DISTRIBUTION WIDTH 14.9 % (11.5-14.0); SEGMENTED NEUTROPHILS % (AUTO) 88.4 % (42-78); TOTAL CELLS COUNTED % (AUTO) 100 %; WHITE BLOOD COUNT 15.6 10^3/uL (4.0-10.5)
[2018-07-15 16:40] LABS: ALANINE AMINOTRANSFERASE 25 U/L (9-52); ALKALINE PHOSPHATASE 166 U/L (38-126); ANION GAP 14 (5-19); ASPARTATE AMINO TRANSFERASE 38 U/L (14-36); BILIRUBIN,DIRECT 0.6 mg/dL (0.0-0.4); BILIRUBIN,TOTAL 0.8 mg/dL (0.2-1.3); BLOOD UREA NITROGEN 28 mg/dL (7-20); CALCIUM 10.9 mg/dL (8.4-10.2); CARBON DIOXIDE 29 mmol/L (22-30); CHLORIDE 96 mmol/L (98-107); GLUCOSE 215 mg/dL (75-110); LIPASE 419.5 U/L (23-300); POTASSIUM 4.6 mmol/L (3.6-5.0); SODIUM 139.3 mmol/L (137-145); TOTAL PROTEIN 9.4 g/dL (6.3-8.2)
[2018-07-15 16:41] LABS: ALCOHOL < 10 mg/dL (NONE DETECTED)
[2018-07-15 17:03] LABS: PLATELET COUNT 333 10^3/uL (150-450)
[2018-07-15 17:07] LABS: APPEARANCE,URINE SLIGHTLY-CLOUDY; BILIRUBIN,URINE NEGATIVE (NEGATIVE); COLOR,URINE YELLOW; GLUCOSE, URINE >=500 mg/dL (NEGATIVE); KETONES,URINE 20 mg/dL (NEGATIVE); LEUKOCYTE ESTERASE,URINE NEGATIVE (NEGATIVE); NITRITE,URINE NEGATIVE (NEGATIVE); PROTEIN,URINE >=500 mg/dL (NEGATIVE); URINE SPECIFIC GRAVITY 1.013; UROBILINOGEN,URINE NEGATIVE mg/dL (<2.0)
[2018-07-15 17:20] LABS: URINE AMPHETAMINES SCREEN NEGATIVE; URINE BARBITURATES SCREEN NEGATIVE; URINE BENZODIAZEPINES SCREEN NEGATIVE; URINE COCAINE SCREEN NEGATIVE; URINE MARIJUANA (THC) SCREEN UNCONFIRMED POSITIVE; URINE METHADONE SCREEN NEGATIVE; URINE PHENCYCLIDINE SCREEN NEGATIVE
[2018-07-15] MEDS ORDERED: HYDRALAZINE HCL INJ/PF 20 MG/1 ML SDV IV ONE (18:05)
[2018-07-15] MEDS ORDERED: ACETAMINOPHEN 325 MG TABLET PO PRN (18:14)
[2018-07-15] MEDS ORDERED: IPRATROPIUM/ALBUTEROL 0.5-2.5 MG/3 ML AMPUL NEB PRN (18:14)
[2018-07-15] MEDS ORDERED: NORMAL SALINE 1000 ML 1,000 ML IV PRN (18:14)
[2018-07-15] MEDS ORDERED: MAG HYDROX/AL HYDROX/SIMETH SUSP 30 ML UDCUP PO PRN (18:14)
[2018-07-15] MEDS ORDERED: GLUCAGON,HUMAN RECOMB 1 MG INJ IM PRN (18:24)
[2018-07-15] MEDS ORDERED: DEXTROSE 50%-WATER 25 GM/50 ML DISP.SYRIN IV PRN ×2 (18:24)
[2018-07-15] MEDS ORDERED: DEXTROSE 40% GEL 15 GM TUBE PO PRN ×2 (18:24)
--- NOTE | 2018-07-15 18:27 | PDOC PROGRESS REPORT ---
Subjective Progress Note for:: 07/15/18 Subjective:: 37-year-old female past medical history of recurrent alcoholic pancreatitis, recently discharged from [facility] for similar episode, today she presented to ED complaining of nausea vomiting and abdominal pain. Started last night at 4 AM, epigastric, 9/10, radiating, cramping, initiated with nausea and vomiting of 20 times coffee-ground. Denies any fever, chills, chest pain, diarrhea, constipation or any urinary symptoms. Endorses one abuse, states that helps her with her pain. 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 Endorses history of seizure and being on Dilantin in the past but noncompliant due to financial reasons. Reason For Visit: ABDOMINAL PAIN Physical Exam Vital Signs: Temp Pulse Resp BP Pulse Ox 98.2 F 110 H 17 189/115 H 100 07/15/18 15:34 07/15/18 15:34 07/15/18 17:01 07/15/18 17:00 07/15/18 17:01 Intake & Output 07/14/18 07/15/18 07/16/18 06:59 06:59 06:59 Weight 58.5 kg General appearance: PRESENT: no acute distress, well-developed, well-nourished Head exam: PRESENT: atraumatic, normocephalic Respiratory exam: PRESENT: clear to auscultation teddy. ABSENT: rales, rhonchi, wheezes Cardiovascular exam: PRESENT: RRR. ABSENT: diastolic murmur, rubs, systolic murmur GI/Abdominal exam: PRESENT: firm, guarding, tenderness Neurological exam: PRESENT: alert, awake, oriented to person, oriented to place, oriented to time, oriented to situation, CN II-XII grossly intact. ABSENT: motor sensory deficit Results Laboratory Results: 07/15/18 15:40 07/15/18 15:40 07/15/18 07/15/18 07/15/18 15:40 15:40 16:50 WBC 15.6 H RBC 4.11 Hgb 11.5 L Hct 35.2 L MCV 86 MCH 28.0 MCHC 32.7 RDW 14.9 H Plt Count 333 Seg Neutrophils % 88.4 H Lymphocytes % 9.7 L Monocytes % 1.6 L Eosinophils % 0.1 Basophils % 0.2 Absolute Neutrophils 13.8 H Absolute Lymphocytes 1.5 Absolute Monocytes 0.2 Absolute Eosinophils 0.0 Absolute Basophils 0.0 Sodium 139.3 Potassium 4.6 Chloride 96 L Carbon Dioxide 29 Anion Gap 14 BUN 28 H Creatinine 1.42 H Est GFR ( Amer) 50 L Est GFR (Non-Af Amer) 42 L Glucose 215 H Calcium 10.9 H Total Bilirubin 0.8 AST 38 H ALT 25 Alkaline Phosphatase 166 H Total Protein 9.4 H Albumin 5.0 Lipase 419.5 H Urine Color YELLOW Urine Appearance SLIGHTLY-CLOUDY Urine pH 6.0 Ur Specific [place] 1.013 Urine Protein >=500 H Urine Glucose (UA) >=500 H Urine Ketones 20 H Urine Blood SMALL H Urine Nitrite NEGATIVE Ur Leukocyte Esterase NEGATIVE Urine WBC (Auto) 1 Assessment and Plan - Diagnosis (1) Acute on chronic pancreatitis Is this a current diagnosis for this admission?: Yes Plan: Recurrent alcoholic pancreatitis. Denies EtOH abuse. Endorses marijuana abuse. Continue IV fluids guided by volume status, monitor electrolytes, opiate analgesics. (2) Acute kidney injury superimposed on CKD Is this a current diagnosis for this admission?: Yes Plan: Prerenal, most likely due to volume depletion caused by p.o. tolerance. IV fluids guided by volume status, monitor electrolytes. CMP tomorrow. (3) Hypertension Is this a current diagnosis for this admission?: No Plan: Start home meds. Adjust meds as needed. (4) Leukocytosis Qualifiers: Leukocytosis type: unspecified Qualified Code(s): D72.829 - Elevated white blood cell count, unspecified Is this a current diagnosis for this admission?: Yes Plan: Afebrile. Likely due to pancreatitis. Blood culture empiric IV antibiotics. (5) Seizure disorder Is this a current diagnosis for this admission?: No Plan: Endorses of seizure, used to take Dilantin, noncompliant due to financial reason. Will restart on Dilantin. Continue seizure precautions. (6) Uncontrolled type 2 diabetes mellitus Qualifiers: Glycemic state: with hyperglycemia Qualified Code(s): E11.65 - Type 2 diabetes mellitus with hyperglycemia Is this a current diagnosis for this admission?: No Plan: Diabetic diet, sliding scale insulin, long-acting insulin, pre-meal insulin, adjust dosage as needed.
[2018-07-15] MEDS ORDERED: CEFTRIAXONE 1 GM/D5W RTU 1 GM/50 ML RTUPB IV SCH (18:30)
[2018-07-15] MEDS ORDERED: HYDROMORPHONE HCL INJ/PF 2 MG/ML AMPULE IV PRN ×2 (18:39)
[2018-07-15] MEDS: HYDROMORPHONE HCL INJ/PF 2 MG/ML AMPULE IV PRN ×2 (20:05→23:47)
[2018-07-15] MEDS: PROMETHAZINE HCL 25 MG TABLET PO PRN (20:09)
[2018-07-15] MEDS ORDERED: INSULIN REG, HUMAN 100 UNIT/ML 3 ML VIAL (PYX) IV ONE (21:45)
[2018-07-15] MEDS ORDERED: NORMAL SALINE 1000 ML 1,000 ML IV SCH (22:00)
[2018-07-15] MEDS ORDERED: INSULIN GLARGINE,HUM.REC.ANLOG 1,000 UNIT/10 ML VIAL (PYX) SUBCUT ONE (22:06)
[2018-07-15] MEDS: INSULIN GLARGINE,HUM.REC.ANLOG 1,000 UNIT/10 ML VIAL SUBCUT SCH (22:08)
[2018-07-15] MEDS: INSULIN LISPRO 100 UNIT/ML 3 ML VIAL SUBCUT SCH (22:08)
--- NOTE | 2018-07-15 22:37 | Operative Report ---
Nonrecallable Operative Report DATE OF SURGERY: 07/15/18 PREOPERATIVE DIAGNOSIS: acute pancreatitis POSTOPERATIVE DIAGNOSIS: acute pancreatitis OPERATION: right internal jugular central line placement SURGEON: ROB FOWLER ANESTHESIA: Local TISSUE REMOVED OR ALTERED: none COMPLICATIONS: none ESTIMATED BLOOD LOSS: 0 INTRAOPERATIVE FINDINGS: see dictation PROCEDURE: see dictation
--- NOTE | 2018-07-15 23:29 | RADIOLOGY REPORT (SQ) ---
EXAM DESCRIPTION: XR CHEST 1 VIEW COMPLETED DATE/TME: 07/15/2018 00:00 CLINICAL HISTORY: 37 years, Female, central line COMPARISON: None. NUMBER OF VIEWS: TECHNIQUE: LIMITATIONS: None. FINDINGS: The tip of the central venous line is in the superior vena cava. No evidence of pulmonary infiltrate or pleural effusion. No evidence of pneumothorax. The heart and mediastinum are unremarkable. Pulmonary vascularity appears normal. IMPRESSION: The tip of the central venous line is in the superior vena cava. copyright 2010 [employer]- All Rights Reserved
[2018-07-15] MEDS: PANTOPRAZOLE SODIUM 40 MG VIAL IV SCH (23:46)
[2018-07-15] MEDS: METOPROLOL TARTRATE 50 MG TABLET PO SCH (23:46)
[2018-07-15] MEDS: GABAPENTIN 100 MG CAPSULE PO SCH (23:47)
[2018-07-16] MEDS ORDERED: NORMAL SALINE 1000 ML 1,000 ML IV SCH (00:15)
[2018-07-16] MEDS: NORMAL SALINE 1000 ML 1,000 ML IV PRN ×5 (00:20→20:01)
[2018-07-16] MEDS: HYDROMORPHONE HCL INJ/PF 2 MG/ML AMPULE IV PRN ×4 (05:16→19:57)
[2018-07-16 05:59] LABS: ABSOLUTE EOSINOPHILS # (AUTO) 0.1 10^3/uL (0.0-0.6); ABSOLUTE LYMPHOCYTES (AUTO) 3.3 10^3/uL (0.5-4.7); ABSOLUTE MONOCYTES (AUTO) 1.3 10^3/uL (0.1-1.4); BASOPHILS % (AUTO) 0.3 % (0-2); EOSINOPHILS % (AUTO) 0.4 % (0-6); HEMATOCRIT 26.9 % (36.0-47.0); LYMPHOCYTES % (AUTO) 26.1 % (13-45); MEAN CORPUSCULAR HEMOGLOBIN 28.5 pg (27.0-33.4); MEAN CORPUSCULAR HGB CONC 32.8 g/dL (32.0-36.0); MEAN CORPUSCULAR VOLUME 87 fl (80-97); MONOCYTES % (AUTO) 10.5 % (3-13); PLATELET COUNT 297 10^3/uL (150-450); RED CELL DISTRIBUTION WIDTH 14.8 % (11.5-14.0); SEGMENTED NEUTROPHILS % (AUTO) 62.7 % (42-78); TOTAL CELLS COUNTED % (AUTO) 100 %; WHITE BLOOD COUNT 12.7 10^3/uL (4.0-10.5)
[2018-07-16 06:01] LABS: HEMOGLOBIN 8.8 g/dL (12.0-15.5)
[2018-07-16 06:15] LABS: ANION GAP 11 (5-19); BLOOD UREA NITROGEN 38 mg/dL (7-20); CALCIUM 8.4 mg/dL (8.4-10.2); CARBON DIOXIDE 27 mmol/L (22-30); CHLORIDE 101 mmol/L (98-107); GLUCOSE 119 mg/dL (75-110); POTASSIUM 3.9 mmol/L (3.6-5.0)
[2018-07-16] MEDS: INSULIN LISPRO 100 UNIT/ML 3 ML VIAL SUBCUT SCH ×4 (07:40→21:41)
[2018-07-16] MEDS: PROMETHAZINE HCL 25 MG TABLET PO PRN ×2 (08:54→21:53)
[2018-07-16] MEDS: PANTOPRAZOLE SODIUM 40 MG VIAL IV SCH ×2 (09:10→21:45)
[2018-07-16] MEDS: METOPROLOL TARTRATE 50 MG TABLET PO SCH ×2 (09:10→21:44)
[2018-07-16] MEDS: LISINOPRIL 10 MG TABLET PO SCH (09:10)
[2018-07-16] MEDS: DOCUSATE SODIUM 100 MG CAPSULE PO SCH (09:10)
[2018-07-16] MEDS: ENOXAPARIN SODIUM INJ 40 MG/0.4 ML DISP.SYRIN SUBCUT SCH (09:11)
[2018-07-16] MEDS: AMLODIPINE BESYLATE 10 MG TABLET PO SCH (09:11)
[2018-07-16] MEDS: GABAPENTIN 100 MG CAPSULE PO SCH ×2 (09:11→21:44)
--- NOTE | 2018-07-16 09:35 | OPERATIVE REPORT E ---
Operative Report NAME: JJ HOFFMAN : 1980 AGE: 37Y DATE OF SURGERY:07/15/2018 ROOM: 426 PREOPERATIVE DIAGNOSIS: ACUTE PANCREATITIS. POSTOPERATIVE DIAGNOSIS: ACUTE PANCREATITIS. OPERATION: Right internal jugular central line placement. SURGEON: ROB FOWLER M.D. INDICATIONS FOR PROCEDURE: This is a 37-year-old female admitted with DKA and acute pancreatitis, unable to get venous access. PROCEDURE: Patient was placed in Trendelenburg position. The right neck was prepped and draped in usual sterile fashion for the procedure. After appropriate timeout and side verification, the area over the right internal jugular vein was anesthetized with 1% lidocaine plain. Using a finder needle, the right internal jugular vein was identified, and then using a 16-gauge needle, the right internal jugular vein was cannulated. A wire was placed into the superior vena cava through the needle and needle removed. A dilator was then placed over the wire to dilate the tract and a triple-lumen 16-Kyrgy[place] central venous catheter was placed over the wire into the superior vena cava. The wire was removed. The catheter was flushed appropriately with normal saline, fixed to the skin with 2-0 silk, which completed the procedure. Estimated blood loss was less than 2 mL. A sterile dressing was applied. A chest x-ray is pending. DICTATING PHYSICIAN: ROB FOWLER M.D. [id number] PHY#: [id number] ID: [id number] JOB#: [id number] ACCT: [id number] cc:ROB FOWLER M.D. >
[2018-07-16] MEDS: PHENYTOIN SODIUM EXTENDED 100 MG CAPSULE PO SCH ×2 (10:01→17:12)
--- NOTE | 2018-07-16 12:44 | PDOC PROGRESS REPORT ---
Subjective Progress Note for:: 07/16/18 Subjective:: 37-year-old female past medical history of recurrent alcoholic pancreatitis, recently discharged from [facility] for similar episode, today she presented to ED complaining of nausea vomiting and abdominal pain. Started last night at 4 AM, epigastric, 9/10, radiating, cramping, initiated with nausea and vomiting of 20 times coffee-ground. Denies any fever, chills, chest pain, diarrhea, constipation or any urinary symptoms. Endorses one abuse, states that helps her with her pain. 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 Endorses history of seizure and being on Dilantin in the past but noncompliant due to financial reasons. 07/16/2017. Persistent abdominal pain and p.o. intolerance, vomiting has improv ed. Denies fever, chills, chest pain, shortness of breath. Reason For Visit: ACUTE PANCREATITIS Physical Exam Vital Signs: Temp Pulse Resp BP Pulse Ox 98.1 F 67 16 147/96 H 100 07/16/18 11:11 07/16/18 11:11 07/16/18 11:11 07/16/18 11:11 07/16/18 11:11 Intake & Output 07/15/18 07/16/18 07/17/18 06:59 06:59 06:59 Intake Total 1218 1360 Output Total 400 Balance 1218 960 Weight 56 kg Results Laboratory Results: 07/16/18 05:20 07/16/18 05:20 07/15/18 07/15/18 07/15/18 15:40 15:40 16:50 WBC 15.6 H RBC 4.11 Hgb 11.5 L Hct 35.2 L MCV 86 MCH 28.0 MCHC 32.7 RDW 14.9 H Plt Count 333 Seg Neutrophils % 88.4 H Lymphocytes % 9.7 L Monocytes % 1.6 L Eosinophils % 0.1 Basophils % 0.2 Absolute Neutrophils 13.8 H Absolute Lymphocytes 1.5 Absolute Monocytes 0.2 Absolute Eosinophils 0.0 Absolute Basophils 0.0 Sodium 139.3 Potassium 4.6 Chloride 96 L Carbon Dioxide 29 Anion Gap 14 BUN 28 H Creatinine 1.42 H Est GFR ( Amer) 50 L Est GFR (Non-Af Amer) 42 L Glucose 215 H Calcium 10.9 H Magnesium Total Bilirubin 0.8 AST 38 H ALT 25 Alkaline Phosphatase 166 H Total Protein 9.4 H Albumin 5.0 Lipase 419.5 H Urine Color YELLOW Urine Appearance SLIGHTLY-CLOUDY Urine pH 6.0 Ur Specific [place] 1.013 Urine Protein >=500 H Urine Glucose (UA) >=500 H Urine Ketones 20 H Urine Blood SMALL H Urine Nitrite NEGATIVE Ur Leukocyte Esterase NEGATIVE Urine WBC (Auto) 1 07/16/18 07/16/18 05:20 05:20 WBC 12.7 H RBC 3.10 L Hgb 8.8 L D Hct 26.9 L MCV 87 MCH 28.5 MCHC 32.8 RDW 14.8 H Plt Count 297 Seg Neutrophils % 62.7 Lymphocytes % 26.1 Monocytes % 10.5 Eosinophils % 0.4 Basophils % 0.3 Absolute Neutrophils 8.0 Absolute Lymphocytes 3.3 Absolute Monocytes 1.3 Absolute Eosinophils 0.1 Absolute Basophils 0.0 Sodium 139.0 Potassium 3.9 Chloride 101 Carbon Dioxide 27 Anion Gap 11 BUN 38 H Creatinine 2.14 H Est GFR ( Amer) 31 L Est GFR (Non-Af Amer) 26 L Glucose 119 H Calcium 8.4 Magnesium 1.7 Total Bilirubin AST ALT Alkaline Phosphatase Total Protein Albumin Lipase Urine Color Urine Appearance Urine pH Ur Specific [place] Urine Protein Urine Glucose (UA) Urine Ketones Urine Blood Urine Nitrite Ur Leukocyte Esterase Urine WBC (Auto) Impressions: Chest X-Ray 07/15/18 00:00 IMPRESSION: The tip of the central venous line is in the superior vena cava. copyright 2010 [employer]- All Rights Reserved Assessment and Plan - Diagnosis (1) Acute on chronic pancreatitis Is this a current diagnosis for this admission?: Yes Plan: Recurrent alcoholic pancreatitis. Denies EtOH abuse. Endorses marijuana abuse. Continue IV fluids guided by volume status, monitor electrolytes, opiate analgesics. (2) Urinary retention Is this a current diagnosis for this admission?: Yes Plan: Likely medication induced. Bladder scan showed residual volume of more than 300, Rivero cath placed, removed 400 cc. UA on admission negative. Repeat UA. She is already on ceftriaxone for leukocytosis on admission. Cultures negative. (3) Acute kidney injury superimposed on CKD Is this a current diagnosis for this admission?: Yes Plan: Worsening. Possible correlation of urine retention and prerenal, most likely due to volume depletion caused by p.o. tolerance. Fluids, Rivero cath, monitor volume status, monitor electrolytes. CMP tomorrow. (4) Hypertension Is this a current diagnosis for this admission?: No Plan: Start home meds. Adjust meds as needed. (5) Leukocytosis Qualifiers: Leukocytosis type: unspecified Qualified Code(s): D72.829 - Elevated white blood cell count, unspecified Is this a current diagnosis for this admission?: Yes Plan: Afebrile. Improving. Likely due to pancreatitis. Day 2 of IV ceftriaxone. Urine and blood cultures no growth so far. (6) Seizure disorder Is this a current diagnosis for this admission?: No Plan: Endorses of seizure, used to take Dilantin, noncompliant due to financial reason. Will restart on Dilantin. Continue seizure precautions. (7) Uncontrolled type 2 diabetes mellitus Qualifiers: Glycemic state: with hyperglycemia Qualified Code(s): E11.65 - Type 2 diabetes mellitus with hyperglycemia Is this a current diagnosis for this admission?: No Plan: Uncontrolled. A1c 10%. Diabetic diet, sliding scale insulin, long-acting insulin, pre-meal insulin, adjust dosage as needed.
[2018-07-16] MEDS: CEFTRIAXONE SODIUM 1,000 MG in DEXTROSE 5%-WATER 50 ML IV SCH (17:12)
[2018-07-16] MEDS: INSULIN GLARGINE,HUM.REC.ANLOG 1,000 UNIT/10 ML VIAL SUBCUT SCH (21:44)
[2018-07-17] MEDS: HYDROMORPHONE HCL INJ/PF 2 MG/ML AMPULE IV PRN ×5 (01:21→21:47)
[2018-07-17] MEDS: ONDANSETRON HCL INJ/PF 4 MG/2 ML SDV IV PRN (01:35)
[2018-07-17] MEDS: PROMETHAZINE HCL 25 MG TABLET PO PRN (05:24)
[2018-07-17] MEDS: NORMAL SALINE 1000 ML 1,000 ML IV PRN ×3 (05:24→17:38)
[2018-07-17] MEDS: INSULIN LISPRO 100 UNIT/ML 3 ML VIAL SUBCUT SCH ×4 (08:06→21:33)
[2018-07-17 08:59] LABS: ABSOLUTE EOSINOPHILS # (AUTO) 0.1 10^3/uL (0.0-0.6); ABSOLUTE MONOCYTES (AUTO) 0.9 10^3/uL (0.1-1.4); BASOPHILS % (AUTO) 0.5 % (0-2); EOSINOPHILS % (AUTO) 1.2 % (0-6); HEMATOCRIT 26.5 % (36.0-47.0); HEMOGLOBIN 8.6 g/dL (12.0-15.5); LYMPHOCYTES % (AUTO) 21.9 % (13-45); MEAN CORPUSCULAR HEMOGLOBIN 28.4 pg (27.0-33.4); MEAN CORPUSCULAR HGB CONC 32.5 g/dL (32.0-36.0); MEAN CORPUSCULAR VOLUME 88 fl (80-97); PLATELET COUNT 278 10^3/uL (150-450); RED BLOOD COUNT 3.03 10^6/uL (3.72-5.28); RED CELL DISTRIBUTION WIDTH 14.8 % (11.5-14.0); SEGMENTED NEUTROPHILS % (AUTO) 66.4 % (42-78); TOTAL CELLS COUNTED % (AUTO) 100 %
[2018-07-17 09:18] LABS: ANION GAP 8 (5-19); BLOOD UREA NITROGEN 25 mg/dL (7-20); CALCIUM 8.9 mg/dL (8.4-10.2); CARBON DIOXIDE 24 mmol/L (22-30); CHLORIDE 106 mmol/L (98-107); GLUCOSE 170 mg/dL (75-110); POTASSIUM 4.3 mmol/L (3.6-5.0); SODIUM 138.2 mmol/L (137-145)
[2018-07-17] MEDS: LISINOPRIL 10 MG TABLET PO SCH (10:00)
[2018-07-17] MEDS: GABAPENTIN 100 MG CAPSULE PO SCH ×2 (10:00→21:49)
[2018-07-17] MEDS: METOPROLOL TARTRATE 50 MG TABLET PO SCH ×2 (10:00→21:49)
[2018-07-17] MEDS: DOCUSATE SODIUM 100 MG CAPSULE PO SCH (10:01)
[2018-07-17] MEDS: PANTOPRAZOLE SODIUM 40 MG VIAL IV SCH ×2 (10:01→21:49)
[2018-07-17] MEDS: ENOXAPARIN SODIUM INJ 40 MG/0.4 ML DISP.SYRIN SUBCUT SCH (10:01)
[2018-07-17] MEDS: AMLODIPINE BESYLATE 10 MG TABLET PO SCH (10:01)
[2018-07-17] MEDS: PHENYTOIN SODIUM EXTENDED 100 MG CAPSULE PO SCH ×2 (10:01→17:37)
--- NOTE | 2018-07-17 11:18 | PDOC PROGRESS REPORT ---
Subjective Progress Note for:: 07/17/18 Subjective:: 37-year-old female past medical history of recurrent alcoholic pancreatitis, recently discharged from [facility] for similar episode, today she presented to ED complaining of nausea vomiting and abdominal pain. Started last night at 4 AM, epigastric, /10, radiating, cramping, initiated with nausea and vomiting of 20 times coffee-ground. Denies any fever, chills, chest pain, diarrhea, constipation or any urinary symptoms. Endorses one abuse, states that helps her with her pain. 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 Endorses history of seizure and being on Dilantin in the past but noncompliant due to financial reasons. 07/16/2017. Persistent abdominal pain and p.o. intolerance, vomiting has impro radha. Denies fever, chills, chest pain, shortness of breath. 07/17/2018-patient is washing her teeth denies any problems except for occasional nausea tolerated the clear liquid diet going to advance the diet to full liquid diet for lunch then she may go on [facility] No acute events in the last 24 hours. Patient is afebrile. Reason For Visit: ACUTE PANCREATITIS Physical Exam Vital Signs: Temp Pulse Resp BP Pulse Ox 98.3 F 79 14 121/70 97 07/17/18 07:54 07/17/18 07:54 07/17/18 07:54 07/17/18 07:54 07/17/18 07:54 Intake & Output 07/16/18 07/17/18 07/18/18 06:59 06:59 06:59 Intake Total 1218 4710 Output Total 650 Balance 1218 4060 Weight 56 kg 56 kg General appearance: PRESENT: no acute distress Head exam: PRESENT: atraumatic Eye exam: PRESENT: PERRLA Mouth exam: PRESENT: moist, tongue midline Neck exam: ABSENT: carotid bruit, JVD, lymphadenopathy, thyromegaly Respiratory exam: PRESENT: clear to auscultation teddy. ABSENT: rales, rhonchi, wheezes Cardiovascular exam: PRESENT: RRR. ABSENT: diastolic murmur, rubs, systolic murmur GI/Abdominal exam: PRESENT: normal bowel sounds, soft. ABSENT: distended, guarding, mass, organolmegaly, rebound, tenderness Rectal exam: PRESENT: deferred Extremities exam: PRESENT: full ROM. ABSENT: calf tenderness, clubbing, pedal edema Neurological exam: PRESENT: alert, awake, oriented to person, oriented to place, oriented to time, oriented to situation, CN II-XII grossly intact. ABSENT: motor sensory deficit Psychiatric exam: PRESENT: appropriate affect, normal mood. ABSENT: homicidal ideation, suicidal ideation Results Laboratory Results: 07/17/18 08:35 07/17/18 08:35 07/17/18 07/17/18 08:35 08:35 WBC 9.0 RBC 3.03 L Hgb 8.6 L Hct 26.5 L MCV 88 MCH 28.4 MCHC 32.5 RDW 14.8 H Plt Count 278 Seg Neutrophils % 66.4 Lymphocytes % 21.9 Monocytes % 10.0 Eosinophils % 1.2 Basophils % 0.5 Absolute Neutrophils 6.0 Absolute Lymphocytes 2.0 Absolute Monocytes 0.9 Absolute Eosinophils 0.1 Absolute Basophils 0.0 Sodium 138.2 Potassium 4.3 Chloride 106 Carbon Dioxide 24 Anion Gap 8 BUN 25 H Creatinine 1.59 H Est GFR ( Amer) 44 L Est GFR (Non-Af Amer) 37 L Glucose 170 H Calcium 8.9 Magnesium 1.7 07/15/18 16:50 Clean Catch Midstream Urine Culture - Final Mixed Urogenital [place] Impressions: Chest X-Ray 07/15/18 00:00 IMPRESSION: The tip of the central venous line is in the superior vena cava. copyright 2010 [employer]- All Rights Reserved Assessment and Plan - Diagnosis (1) Acute kidney injury superimposed on CKD Is this a current diagnosis for this admission?: Yes Plan: Worsening. Possible correlation of urine retention and prerenal, most likely due to volume depletion caused by p.o. tolerance. Fluids, Rivero cath, monitor volume status, monitor electrolytes. CMP tomorrow. 07/17/2018-admitted with RONIT superimposed on CKD. Latest creatinine is 1.59. And is able to tolerate the liquid diet plan to advance the diet to soft diet. Yesterday's creatinine is 2.14. Patient's baseline creatinine is between 1.4- 1.5. (2) Hypertension Qualifiers: Is this a current diagnosis for this admission?: Yes Plan: 07/17/2018-patient blood pressure today is 114/70 stable. Plan is to continue to monitor the blood pressures every shift. (3) Urinary retention Is this a current diagnosis for this admission?: Yes Plan: Likely medication induced. Bladder scan showed residual volume of more than 300, Rivero cath placed, removed 400 cc. UA on admission negative. Repeat UA. She is already on ceftriaxone for leukocytosis on admission. Cultures negative. 07/17/2018-patient complained of urinary retention most likely secondary to medication repeat EEG was negative urine cultures are negative presently not on Rivero's catheter. No complaints of problems with urination today. (4) Leukocytosis Qualifiers: Leukocytosis type: unspecified Qualified Code(s): D72.829 - Elevated white blood cell count, unspecified Is this a current diagnosis for this admission?: Yes Plan: Afebrile. Improving. Likely due to pancreatitis. Day 2 of IV ceftriaxone. Urine and blood cultures no growth so far. 07/17/2018-patient's WBC count is 9000 today leukocytosis is resolved. Urine and blood cultures are negative. On IV ceftriaxone. (5) Seizure Is this a current diagnosis for this admission?: No Plan: 07/17/2018-patient has history of chronic seizure disorder on Dilantin at home presently receiving Dilantin during the hospital stay. (6) Type 2 diabetes mellitus Qualifiers: Diabetes mellitus material manager insulin use: with material manager use Diabetes mellitus complication status: with hypoglycemia Diabetes mellitus complication detail: without coma Qualified Code(s): E11.649 - Type 2 diabetes mellitus with hypoglycemia without coma; Z79.4 - buckle wire inserter (current) use of insulin; Z79.4 - FPC (current) use of insulin; Z79.4 - FPC (current) use of insulin; Z79.4 - FPC (current) use of insulin Is this a current diagnosis for this admission?: Yes Plan: 07/17/2018-patient has history of type 2 diabetes mellitus latest blood sugar is 177 presently on insulin sliding scale, pre-meal insulin and long-acting insulin. Hemoglobin A1c is 10. Compliant with medication was advised. Dietitian consult will be requested. - Time Time Spent with patient: 15-24 minutes Medications reviewed and adjusted accordingly: Yes Anticipated discharge: Home
[2018-07-17 11:38] LABS: ALANINE AMINOTRANSFERASE 22 U/L (9-52); ALBUMIN 3.1 g/dL (3.5-5.0); ALKALINE PHOSPHATASE 98 U/L (38-126); ASPARTATE AMINO TRANSFERASE 16 U/L (14-36); BILIRUBIN,DIRECT 0.1 mg/dL (0.0-0.4); BILIRUBIN,TOTAL 0.2 mg/dL (0.2-1.3); TOTAL PROTEIN 5.6 g/dL (6.3-8.2)
[2018-07-17] MEDS: CEFTRIAXONE SODIUM 1,000 MG in DEXTROSE 5%-WATER 50 ML IV SCH (17:34)
[2018-07-17] MEDS: INSULIN GLARGINE,HUM.REC.ANLOG 1,000 UNIT/10 ML VIAL SUBCUT SCH (21:48)
[2018-07-18] MEDS: HYDROMORPHONE HCL INJ/PF 2 MG/ML AMPULE IV PRN ×6 (02:10→22:42)
[2018-07-18 05:56] LABS: ABSOLUTE EOSINOPHILS # (AUTO) 0.1 10^3/uL (0.0-0.6); ABSOLUTE MONOCYTES (AUTO) 0.6 10^3/uL (0.1-1.4); ABSOLUTE NEUT (AUTO) 2.4 10^3/uL (1.7-8.2); BASOPHILS % (AUTO) 0.2 % (0-2); EOSINOPHILS % (AUTO) 1.5 % (0-6); HEMATOCRIT 23.2 % (36.0-47.0); LYMPHOCYTES % (AUTO) 49.3 % (13-45); MEAN CORPUSCULAR HEMOGLOBIN 28.7 pg (27.0-33.4); MEAN CORPUSCULAR VOLUME 87 fl (80-97); MONOCYTES % (AUTO) 9.9 % (3-13); PLATELET COUNT 231 10^3/uL (150-450); RED BLOOD COUNT 2.67 10^6/uL (3.72-5.28); RED CELL DISTRIBUTION WIDTH 14.9 % (11.5-14.0); SEGMENTED NEUTROPHILS % (AUTO) 39.1 % (42-78); TOTAL CELLS COUNTED % (AUTO) 100 %
[2018-07-18 06:12] LABS: HEMOGLOBIN 7.7 g/dL (12.0-15.5)
[2018-07-18 07:08] LABS: ALANINE AMINOTRANSFERASE 91 U/L (9-52); ALBUMIN 2.7 g/dL (3.5-5.0); ALKALINE PHOSPHATASE 98 U/L (38-126); ANION GAP 8 (5-19); ASPARTATE AMINO TRANSFERASE 154 U/L (14-36); BILIRUBIN,DIRECT 0.1 mg/dL (0.0-0.4); BILIRUBIN,TOTAL 0.1 mg/dL (0.2-1.3); BLOOD UREA NITROGEN 16 mg/dL (7-20); CALCIUM 8.2 mg/dL (8.4-10.2); CARBON DIOXIDE 23 mmol/L (22-30); CHLORIDE 111 mmol/L (98-107); GLUCOSE 74 mg/dL (75-110); POTASSIUM 4.3 mmol/L (3.6-5.0); TOTAL PROTEIN 5.4 g/dL (6.3-8.2)
[2018-07-18] MEDS: INSULIN LISPRO 100 UNIT/ML 3 ML VIAL SUBCUT SCH ×4 (07:47→21:32)
[2018-07-18] MEDS: ONDANSETRON HCL INJ/PF 4 MG/2 ML SDV IV PRN (09:44)
[2018-07-18] MEDS: PANTOPRAZOLE SODIUM 40 MG VIAL IV SCH (09:44)
[2018-07-18] MEDS: GABAPENTIN 100 MG CAPSULE PO SCH ×2 (09:45→21:45)
[2018-07-18] MEDS: DOCUSATE SODIUM 100 MG CAPSULE PO SCH (09:45)
[2018-07-18] MEDS: AMLODIPINE BESYLATE 10 MG TABLET PO SCH (09:45)
[2018-07-18] MEDS: METOPROLOL TARTRATE 50 MG TABLET PO SCH ×2 (09:45→21:45)
[2018-07-18] MEDS: LISINOPRIL 10 MG TABLET PO SCH (09:45)
[2018-07-18] MEDS: PHENYTOIN SODIUM EXTENDED 100 MG CAPSULE PO SCH ×2 (09:45→17:13)
[2018-07-18] MEDS: ENOXAPARIN SODIUM INJ 40 MG/0.4 ML DISP.SYRIN SUBCUT SCH (09:46)
--- NOTE | 2018-07-18 13:38 | PDOC PROGRESS REPORT ---
Subjective Progress Note for:: 07/18/18 Subjective:: 37-year-old female past medical history of recurrent alcoholic pancreatitis, recently discharged from [facility] for similar episode, today she presented to ED complaining of nausea vomiting and abdominal pain. Started last night at 4 AM, epigastric, 9/10, radiating, cramping, initiated with nausea and vomiting of 20 times coffee-ground. Denies any fever, chills, chest pain, diarrhea, constipation or any urinary symptoms. Endorses marijuana druge abuse, states that helps her with her pain. 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 Endorses history of seizure and being on Dilantin in the past but noncompliant due to financial reasons. 07/18/2018. No acute events overnight, patient is still complaining of being p.o. intolerant, has not had a bowel movement, urinary retention has resolved, persistent abdominal pain, 9/10, denies any chest pain, shortness of breath, diarrhea, constipation. Reason For Visit: ACUTE PANCREATITIS Physical Exam Vital Signs: Temp Pulse Resp BP Pulse Ox 99.0 F 83 14 150/90 H 97 07/18/18 11:13 07/18/18 11:13 07/18/18 11:13 07/18/18 11:13 07/18/18 11:13 Intake & Output 07/17/18 07/18/18 07/19/18 06:59 06:59 06:59 Intake Total 4710 3345 Output Total 650 500 Balance 4060 2845 Weight 56 kg 57 kg General appearance: PRESENT: no acute distress, mild distress, well-developed, well-nourished Head exam: PRESENT: atraumatic, normocephalic Neck exam: ABSENT: carotid bruit, JVD, lymphadenopathy, thyromegaly Respiratory exam: PRESENT: clear to auscultation teddy. ABSENT: rales, rhonchi, wheezes Cardiovascular exam: PRESENT: RRR. ABSENT: diastolic murmur, rubs, systolic murmur GI/Abdominal exam: PRESENT: tenderness Extremities exam: PRESENT: full ROM. ABSENT: calf tenderness, clubbing, pedal edema Neurological exam: PRESENT: alert, awake, oriented to person, oriented to place, oriented to time, oriented to situation, CN II-XII grossly intact. ABSENT: motor sensory deficit Results Laboratory Results: 07/18/18 05:30 07/18/18 05:30 07/18/18 07/18/18 05:30 05:30 WBC 6.0 RBC 2.67 L Hgb 7.7 L Hct 23.2 L MCV 87 MCH 28.7 MCHC 33.0 RDW 14.9 H Plt Count 231 Seg Neutrophils % 39.1 L Lymphocytes % 49.3 H Monocytes % 9.9 Eosinophils % 1.5 Basophils % 0.2 Absolute Neutrophils 2.4 Absolute Lymphocytes 3.0 Absolute Monocytes 0.6 Absolute Eosinophils 0.1 Absolute Basophils 0.0 Sodium 142.0 Potassium 4.3 Chloride 111 H Carbon Dioxide 23 Anion Gap 8 BUN 16 Creatinine 1.33 H Est GFR ( Amer) 54 L Est GFR (Non-Af Amer) 45 L Glucose 74 L Calcium 8.2 L Magnesium 1.6 Total Bilirubin 0.1 L AST 154 H ALT 91 H Alkaline Phosphatase 98 Total Protein 5.4 L Albumin 2.7 L Impressions: Chest X-Ray 07/15/18 00:00 IMPRESSION: The tip of the central venous line is in the superior vena cava. copyright 2010 [employer]- All Rights Reserved Assessment and Plan - Diagnosis (1) Hypoglycemia Is this a current diagnosis for this admission?: Yes Plan: Likely due to p.o. intolerance caused by underlying pancreatitis. Hypoglycemic protocol. (2) Acute on chronic pancreatitis Is this a current diagnosis for this admission?: Yes Plan: Recurrent alcoholic pancreatitis. Denies EtOH abuse. Endorses marijuana abuse. Continue IV fluids guided by volume status, monitor electrolytes, opiate analgesics. (3) Urinary retention Is this a current diagnosis for this admission?: Yes Plan: Resolved. Likely medication induced. 07/16/2018 bladder scan showed residual volume of more than 300, Rivero cath placed, removed 400 cc. UA on admission negative. Culture is negative so far. Remove Rivero. Monitor in and out, monitor volume status. (4) Acute kidney injury superimposed on CKD Is this a current diagnosis for this admission?: Yes Plan: Improved. Back to baseline. Possible due to retention and prerenal, most likely due to volume depletion caused by p.o. tolerance. Continue IV fluids, monitor volume status, monitor electrolytes. CMP tomorrow. (5) Hypertension Is this a current diagnosis for this admission?: No Plan: Not controlled. Increase lisinopril to 40 mg p.o. daily. Monitor vitals, adjust meds as needed. (6) Leukocytosis Qualifiers: Leukocytosis type: unspecified Qualified Code(s): D72.829 - Elevated white blood cell count, unspecified Is this a current diagnosis for this admission?: Yes Plan: Solved. WBC WNL. Afebrile. Improving. Likely due to pancreatitis. Day 4 of IV ceftriaxone. Urine and blood cultures no growth so far. (7) Seizure disorder Is this a current diagnosis for this admission?: No Plan: Not had any seizure during hospitalization. Endorses of seizure, used to take Dilantin, noncompliant due to financial reason. Will restart on Dilantin. Continue seizure precautions. (8) Uncontrolled type 2 diabetes mellitus Qualifiers: Glycemic state: with hyperglycemia Qualified Code(s): E11.65 - Type 2 diabetes mellitus with hyperglycemia Is this a current diagnosis for this admission?: No Plan: Uncontrolled. A1c 10%. Diabetic diet, sliding scale insulin, long-acting insulin, pre-meal insulin, adjust dosage as needed.
[2018-07-18] MEDS ORDERED: HYDRALAZINE HCL 10 MG TABLET PO PRN (15:43)
[2018-07-18] MEDS: HYDRALAZINE HCL INJ/PF 20 MG/1 ML SDV IV PRN (16:13)
[2018-07-18] MEDS: CEFTRIAXONE SODIUM 1,000 MG in DEXTROSE 5%-WATER 50 ML IV SCH (17:12)
[2018-07-18] MEDS: PROMETHAZINE HCL 25 MG TABLET PO PRN (18:23)
--- NOTE | 2018-07-18 18:40 | PDOC H&P ---
History of Present Illness Admission Date/PCP: 07/15/18 18:28 RONALD BARKER, ROSIO-Claudine History of Present Illness: JJ HOFFMAN is a 37 year old female past medical history of recurrent alco holic pancreatitis, recently discharged from [facility] for similar episode, today she presented to ED complaining of nausea vomiting and abdominal pain. Started last night at 4 AM, epigastric, 9/10, radiating, cramping, initiated with nausea and vomiting of 20 times coffee-ground. Denies any fever, chills, chest pain, diarrhea, constipation or any urinary symptoms. Endorses one abuse, states that helps her with her pain. 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 Endorses history of seizure and being on Dilantin in the past but noncompliant due to financial reasons. Past Medical History Cardiac Medical History: Reports: Hyperlipidema, Hypertension Denies: Congestive Heart Failure, Coronary Artery Disease, DVT, Myocardial Infarction Pulmonary Medical History: Reports: Chronic Obstructive Pulmonary Disease (COPD) Neurological Medical History: Reports: Seizures Denies: Migraine Endocrine Medical History: Reports: Diabetes Mellitus Type 1, Diabetes Mellitus Type 2 Renal/ Medical History: Denies: End Stage Renal Disease GI Medical History: Denies: Cirrhosis Musculoskeltal Medical History: Denies: Arthritis Skin Medical History: Denies: Eczema, Psoriasis Psychiatric Medical History: Denies: Dementia, Depression Hematology: Reports: Anemia Past Surgical History Past Surgical History: Reports: Section - x3, Hysterectomy Social History Smoking Status: Unknown if Ever Smoked Frequency of Alcohol Use: None Hx Recreational Drug Use: No Drugs: Marijuana Hx Prescription Drug Abuse: No Family History Family History: Reviewed & Not Pertinent, DM, Hypertension Parental Family History Reviewed: Yes Children Family History Reviewed: Yes Sibling(s) Family History Reviewed.: Yes Medication/Allergy Home Medications: Amlodipine Besylate [Norvasc 10 mg Tablet] 10 mg PO DAILY 07/16/18 Chlorthalidone [Hygroton 25 mg Tablet] 25 mg PO DAILY 07/16/18 Docusate Sodium [Colace 100 mg Capsule] 100 mg PO BID 07/16/18 Famotidine [Pepcid 20 mg Tablet] 20 mg PO BID 07/16/18 Gabapentin [Neurontin 100 mg Capsule] 100 mg PO Q12 07/16/18 Insulin Aspart [Novolog Insulin 100 Unit/1 ml 10 ml] 5 unit SUBCUT AC 07/16/18 Insulin Glargine,Hum.rec.anlog [Lantus Insulin 100 Unit/1 ml 10 ml] 30 unit SUBCUT QAM 07/16/18 Lisinopril [Prinivil 40 mg Tablet] 40 mg PO DAILY 07/16/18 Metoprolol Tartrate [Lopressor 50 mg Tablet] 50 mg PO Q12 07/16/18 Allergies/Adverse Reactions: hydrocodone [From [place]] Allergy (Verified 06/15/18 07:15) morphine Allergy (Verified 06/15/18 07:15) Review of Systems Review of Systems: as per hpi Physical Exam Vital Signs: Temp Pulse Resp BP Pulse Ox 98.6 F 85 14 186/96 H 100 07/18/18 15:16 07/18/18 15:16 07/18/18 11:13 07/18/18 15:16 07/18/18 15:16 Intake & Output 07/17/18 07/18/18 07/19/18 06:59 06:59 06:59 Intake Total 4710 3345 989 Output Total 650 500 Balance 4060 2845 989 Weight 56 kg 57 kg General appearance: PRESENT: no acute distress, mild distress, well-developed, well-nourished Head exam: PRESENT: atraumatic, normocephalic Neck exam: ABSENT: carotid bruit, JVD, lymphadenopathy, thyromegaly Respiratory exam: PRESENT: clear to auscultation teddy. ABSENT: rales, rhonchi, wheezes Cardiovascular exam: PRESENT: RRR. ABSENT: diastolic murmur, rubs, systolic m urmur GI/Abdominal exam: PRESENT: guarding, normal bowel sounds, soft, tenderness. ABSENT: distended, mass, organolmegaly, rebound Neurological exam: PRESENT: alert, awake, oriented to person, oriented to place, oriented to time, oriented to situation, CN II-XII grossly intact. ABSENT: motor sensory deficit Results Laboratory Results: 07/18/18 05:30 07/18/18 05:30 07/18/18 07/18/18 05:30 05:30 WBC 6.0 RBC 2.67 L Hgb 7.7 L Hct 23.2 L MCV 87 MCH 28.7 MCHC 33.0 RDW 14.9 H Plt Count 231 Seg Neutrophils % 39.1 L Lymphocytes % 49.3 H Monocytes % 9.9 Eosinophils % 1.5 Basophils % 0.2 Absolute Neutrophils 2.4 Absolute Lymphocytes 3.0 Absolute Monocytes 0.6 Absolute Eosinophils 0.1 Absolute Basophils 0.0 Sodium 142.0 Potassium 4.3 Chloride 111 H Carbon Dioxide 23 Anion Gap 8 BUN 16 Creatinine 1.33 H Est GFR ( Amer) 54 L Est GFR (Non-Af Amer) 45 L Glucose 74 L Calcium 8.2 L Magnesium 1.6 Total Bilirubin 0.1 L AST 154 H ALT 91 H Alkaline Phosphatase 98 Total Protein 5.4 L Albumin 2.7 L Impressions: Chest X-Ray 07/15/18 00:00 IMPRESSION: The tip of the central venous line is in the superior vena cava. copyright 2010 [employer]- All Rights Reserved Assessment and Plan - Diagnosis (1) Acute on chronic pancreatitis Is this a current diagnosis for this admission?: Yes Plan: Recurrent alcoholic pancreatitis. Denies EtOH abuse. Endorses marijuana abuse. Continue IV fluids guided by volume status, monitor electrolytes, opiate analgesics. (2) Acute kidney injury superimposed on CKD Is this a current diagnosis for this admission?: Yes Plan: Prerenal, most likely due to volume depletion caused by p.o. tolerance. IV fluids guided by volume status, monitor electrolytes. CMP tomorrow. (3) Hypertension Is this a current diagnosis for this admission?: No Plan: Start home meds. Adjust meds as needed. (4) Leukocytosis Qualifiers: Leukocytosis type: unspecified Qualified Code(s): D72.829 - Elevated white blood cell count, unspecified Is this a current diagnosis for this admission?: Yes Plan: Afebrile. Likely due to pancreatitis. Blood culture empiric IV antibiotics. (5) Seizure disorder Is this a current diagnosis for this admission?: No Plan: Endorses of seizure, used to take Dilantin, noncompliant due to financial reason. Will restart on Dilantin. Continue seizure precautions. (6) Uncontrolled type 2 diabetes mellitus Qualifiers: Glycemic state: with hyperglycemia Qualified Code(s): E11.65 - Type 2 diabetes mellitus with hyperglycemia Is this a current diagnosis for this admission?: No Plan: Uncontrolled. A1c 10%. Diabetic diet, sliding scale insulin, long-acting insulin, pre-meal insulin, adjust dosage as needed.
[2018-07-18] MEDS: INSULIN GLARGINE,HUM.REC.ANLOG 1,000 UNIT/10 ML VIAL SUBCUT SCH (21:46)
[2018-07-19 06:34] LABS: ALANINE AMINOTRANSFERASE 57 U/L (9-52); ALBUMIN 2.6 g/dL (3.5-5.0); ALKALINE PHOSPHATASE 111 U/L (38-126); ASPARTATE AMINO TRANSFERASE 47 U/L (14-36); BLOOD UREA NITROGEN 14 mg/dL (7-20); CALCIUM 8.7 mg/dL (8.4-10.2); GLUCOSE 170 mg/dL (75-110); POTASSIUM 4.2 mmol/L (3.6-5.0)
[2018-07-19 06:35] LABS: ABSOLUTE EOSINOPHILS # (AUTO) 0.1 10^3/uL (0.0-0.6); ABSOLUTE LYMPHOCYTES (AUTO) 2.3 10^3/uL (0.5-4.7); ABSOLUTE MONOCYTES (AUTO) 0.6 10^3/uL (0.1-1.4); ABSOLUTE NEUT (AUTO) 3.6 10^3/uL (1.7-8.2); BASOPHILS % (AUTO) 0.3 % (0-2); EOSINOPHILS % (AUTO) 1.4 % (0-6); HEMATOCRIT 23.1 % (36.0-47.0); LYMPHOCYTES % (AUTO) 35.3 % (13-45); MEAN CORPUSCULAR HEMOGLOBIN 28.5 pg (27.0-33.4); MEAN CORPUSCULAR VOLUME 87 fl (80-97); MONOCYTES % (AUTO) 8.5 % (3-13); PLATELET COUNT 259 10^3/uL (150-450); RED BLOOD COUNT 2.67 10^6/uL (3.72-5.28); SEGMENTED NEUTROPHILS % (AUTO) 54.5 % (42-78); TOTAL CELLS COUNTED % (AUTO) 100 %; WHITE BLOOD COUNT 6.6 10^3/uL (4.0-10.5)
[2018-07-19] MEDS: HYDROMORPHONE HCL INJ/PF 2 MG/ML AMPULE IV PRN ×5 (06:36→22:28)
[2018-07-19 06:40] LABS: CARBON DIOXIDE 28 mmol/L (22-30); CHLORIDE 109 mmol/L (98-107); HEMOGLOBIN 7.6 g/dL (12.0-15.5); SODIUM 141.3 mmol/L (137-145)
[2018-07-19 06:41] LABS: BILIRUBIN,TOTAL < 0.1 mg/dL (0.2-1.3)
[2018-07-19 06:43] LABS: ANION GAP 4 (5-19)
[2018-07-19] MEDS: HYDRALAZINE HCL INJ/PF 20 MG/1 ML SDV IV PRN (07:35)
[2018-07-19] MEDS: INSULIN LISPRO 100 UNIT/ML 3 ML VIAL SUBCUT SCH ×4 (07:35→21:44)
[2018-07-19] MEDS ORDERED: MAGNESIUM SULFATE/D5W 1 GM/100 ML RTUPB IV ONE (08:52)
[2018-07-19] MEDS: AMLODIPINE BESYLATE 10 MG TABLET PO SCH (09:55)
[2018-07-19] MEDS: GABAPENTIN 100 MG CAPSULE PO SCH ×2 (09:55→21:45)
[2018-07-19] MEDS: PHENYTOIN SODIUM EXTENDED 100 MG CAPSULE PO SCH ×2 (09:56→18:04)
[2018-07-19] MEDS: METOPROLOL TARTRATE 50 MG TABLET PO SCH ×2 (09:56→21:45)
[2018-07-19] MEDS: LISINOPRIL 10 MG TABLET PO SCH (09:56)
[2018-07-19] MEDS: ENOXAPARIN SODIUM INJ 40 MG/0.4 ML DISP.SYRIN SUBCUT SCH (09:56)
[2018-07-19] MEDS: DOCUSATE SODIUM 100 MG CAPSULE PO SCH (09:56)
--- NOTE | 2018-07-19 11:25 | PDOC PROGRESS REPORT ---
Subjective Progress Note for:: 07/19/18 Subjective:: 37-year-old female past medical history of recurrent alcoholic pancreatitis, recently discharged from [facility] for similar episode, today she presented to ED complaining of nausea vomiting and abdominal pain. Started last night at 4 AM, epigastric, 9/10, radiating, cramping, initiated with nausea and vomiting of 20 times coffee-ground. Denies any fever, chills, chest pain, diarrhea, constipation or any urinary symptoms. Endorses marijuana druge abuse, states that helps her with her pain. 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 Endorses history of seizure and being on Dilantin in the past but noncompliant due to financial reasons. 07/18/2018. No acute events overnight, patient is still complaining of being p.o. intolerant, has not had a bowel movement, urinary retention has resolved, persistent abdominal pain, 9/10, denies any chest pain, shortness of breath, diarrhea, constipation. 07/19/2018. Patient still complaining of persistent abdominal pain, being p.o. tolerant, intolerant, have not been able to pass any flatus or have a bowel movement, however as per primary nurse patient has been on regular diet tolerating her meals and has been having bowel movements. Reason For Visit: ACUTE PANCREATITIS Physical Exam Vital Signs: Temp Pulse Resp BP Pulse Ox 98.5 F 97 14 158/78 H 98 07/19/18 00:20 07/19/18 00:20 07/18/18 11:13 07/19/18 00:20 07/19/18 00:20 Intake & Output 07/18/18 07/19/18 07/20/18 06:59 06:59 06:59 Intake Total 3345 1225 100 Output Total 500 Balance 2845 1225 100 Weight 57 kg 62.1 kg General appearance: PRESENT: mild distress Head exam: PRESENT: atraumatic, normocephalic Respiratory exam: PRESENT: clear to auscultation teddy. ABSENT: rales, rhonchi, wheezes Cardiovascular exam: PRESENT: RRR. ABSENT: diastolic murmur, rubs, systolic murmur Pulses: PRESENT: normal dorsalis pedis pul GI/Abdominal exam: PRESENT: tenderness Extremities exam: PRESENT: full ROM. ABSENT: calf tenderness, clubbing, pedal edema Neurological exam: PRESENT: alert, awake, oriented to person, oriented to place, oriented to time, oriented to situation, CN II-XII grossly intact. ABSENT: motor sensory deficit Results Laboratory Results: 07/19/18 05:45 07/19/18 05:45 07/19/18 07/19/18 05:45 05:45 WBC 6.6 RBC 2.67 L Hgb 7.6 L Hct 23.1 L MCV 87 MCH 28.5 MCHC 33.0 RDW 15.0 H Plt Count 259 Seg Neutrophils % 54.5 Lymphocytes % 35.3 Monocytes % 8.5 Eosinophils % 1.4 Basophils % 0.3 Absolute Neutrophils 3.6 Absolute Lymphocytes 2.3 Absolute Monocytes 0.6 Absolute Eosinophils 0.1 Absolute Basophils 0.0 Sodium 141.3 Potassium 4.2 Chloride 109 H Carbon Dioxide 28 Anion Gap 4 L BUN 14 Creatinine 1.28 H Est GFR ( Amer) 57 L Est GFR (Non-Af Amer) 47 L Glucose 170 H Calcium 8.7 Magnesium 1.5 L Total Bilirubin < 0.1 L AST 47 H ALT 57 H Alkaline Phosphatase 111 Total Protein 5.0 L Albumin 2.6 L Impressions: Chest X-Ray 07/15/18 00:00 IMPRESSION: The tip of the central venous line is in the superior vena cava. copyright 2011 [employer]- All Rights Reserved Assessment and Plan - Diagnosis (1) Acute on chronic pancreatitis Is this a current diagnosis for this admission?: Yes Plan: Recurrent alcoholic pancreatitis. Denies EtOH abuse. Endorses marijuana abuse. Continue IV fluids guided by volume status, monitor electrolytes, opiate analgesics. (2) Anemia Qualifiers: Anemia type: iron deficiency Is this a current diagnosis for this admission?: No Plan: Likely a combination of iron deficiency anemia/CKD. History of partial hysterectomy. Guaiac positive. Hemoglobin 7.6 today. [place] any melena, hematemesis, hematochezia, hemoptysis, vaginal bleed or any bruising. (3) Acute kidney injury superimposed on CKD Is this a current diagnosis for this admission?: Yes Plan: Improving. Creatinine back to baseline. Today creatinine 1.28. Prerenal, most likely due to volume depletion caused by p.o. tolerance. IV fluids guided by volume status, monitor electrolytes. CMP tomorrow. (4) Hypertension Is this a current diagnosis for this admission?: No Plan: Start home meds. Adjust meds as needed. (5) Leukocytosis Qualifiers: Leukocytosis type: unspecified Qualified Code(s): D72.829 - Elevated white blood cell count, unspecified Is this a current diagnosis for this admission?: Yes Plan: Afebrile. WBC within normal limits. Likely due to pancreatitis. Cultures negative. DC IV antibiotics. Received 4 days of empiric IV antibiotics. (6) Seizure disorder Is this a current diagnosis for this admission?: No Plan: Has not had any seizures on this admission. Endorses of seizure, used to take Dilantin, noncompliant due to financial reason. Continue Dilantin. Continue seizure precautions. (7) Uncontrolled type 2 diabetes mellitus Qualifiers: Glycemic state: with hyperglycemia Qualified Code(s): E11.65 - Type 2 diabetes mellitus with hyperglycemia Is this a current diagnosis for this admission?: No Plan: Uncontrolled. A1c 10%. Diabetic diet, sliding scale insulin, long-acting insulin, pre-meal insulin, adjust dosage as needed.
[2018-07-19 13:28] LABS: ABSOLUTE RETICS # 0.045 10^6/uL (0.028-0.122); RETICULOCYTE COUNT (AUTO) 1.69 % (0.66-2.85)
[2018-07-19 14:50] LABS: IRON(TIBC) < 10.1 ug/dL (37-170)
[2018-07-19] MEDS: CEFTRIAXONE SODIUM 1,000 MG in DEXTROSE 5%-WATER 50 ML IV SCH (18:04)
--- NOTE | 2018-07-19 21:12 | PDOC CONSULTATION ---
Consultation Consult Date: 07/19/18 Provider Consulted: SURGICAL SURGICALIST MD Consult reason:: Anemia, rule out upper GI source. History of Present Illness Admission Date/PCP: 07/15/18 18:28 LYNNE OLMEDO Patient complains of: Abdominal pain, fatigue, malaise History of Present Illness: JJ HOFFMAN is a 37 year old female with chronic pancreatitis. She complains of chronic abdominal pain. She used to be an alcoholic, however she stopped drinking alcohol 7 years ago. Since that time, she has had recurrent episodes of pancreatitis. The patient was found to have anemia on this hospital admission. She has a history of peptic ulcer disease. Her last EGD was 1 year ago, and showed gastritis and duodenitis. The patient reports that she does not now take, and has never taken a PPI, Zantac, or Carafate. Her abdominal pain is crampy and constant. It is located in the epigastrium. It radiates to the back. At its worst, it is 10 out of 10. Nothing makes it better, nothing makes it worse. The patient denies chest pain, shortness of breath, fevers, chills, melena, dizziness, orthostasis. She does report fatigue, malaise, and severe abdominal pain. The patient uses occasional NSAIDs. She denies use of steroids, soda pop, caffeine, or alcohol. Past Medical History Cardiac Medical History: Reports: Hyperlipidema, Hypertension Denies: Congestive Heart Failure, Coronary Artery Disease, DVT, Myocardial Infarction Pulmonary Medical History: Reports: Chronic Obstructive Pulmonary Disease (COPD) Neurological Medical History: Reports: Seizures Denies: Migraine Endocrine Medical History: Reports: Diabetes Mellitus Type 1, Diabetes Mellitus Type 2 Renal/ Medical History: Denies: End Stage Renal Disease GI Medical History: Reports: Peptic Ulcer Disease Denies: Cirrhosis Musculoskeltal Medical History: Denies: Arthritis Skin Medical History: Denies: Eczema, Psoriasis Psychiatric Medical History: Denies: Dementia, Depression Hematology: Reports: Anemia Past Surgical History Past Surgical History: Reports: Section - x3, Hysterectomy Social History Smoking Status: Unknown if Ever Smoked Frequency of Alcohol Use: None Hx Recreational Drug Use: No Drugs: Marijuana Hx Prescription Drug Abuse: No Family History Family History: Reviewed & Not Pertinent, DM, Hypertension Parental Family History Reviewed: Yes Children Family History Reviewed: Yes Sibling(s) Family History Reviewed.: Yes Medication/Allergy Home Medications: Amlodipine Besylate [Norvasc 10 mg Tablet] 10 mg PO DAILY 07/16/18 Chlorthalidone [Hygroton 25 mg Tablet] 25 mg PO DAILY 07/16/18 Docusate Sodium [Colace 100 mg Capsule] 100 mg PO BID 07/16/18 Famotidine [Pepcid 20 mg Tablet] 20 mg PO BID 07/16/18 Gabapentin [Neurontin 100 mg Capsule] 100 mg PO Q12 07/16/18 Insulin Aspart [Novolog Insulin 100 Unit/1 ml 10 ml] 5 unit SUBCUT AC 07/16/18 Insulin Glargine,Hum.rec.anlog [Lantus Insulin 100 Unit/1 ml 10 ml] 30 unit SUBCUT QAM 07/16/18 Lisinopril [Prinivil 40 mg Tablet] 40 mg PO DAILY 07/16/18 Metoprolol Tartrate [Lopressor 50 mg Tablet] 50 mg PO Q12 07/16/18 Allergies/Adverse Reactions: hydrocodone [From [place]] Allergy (Verified 06/15/18 07:15) morphine Allergy (Verified 06/15/18 07:15) Review of Systems Constitutional: PRESENT: fatigue. ABSENT: chills, fever(s), headache(s) Eyes: ABSENT: visual disturbances Ears: ABSENT: hearing changes Nose, Mouth, and Throat: ABSENT: sore throat Cardiovascular: ABSENT: chest pain Respiratory: ABSENT: cough Gastrointestinal: PRESENT: abdominal pain, bloating Genitourinary: ABSENT: dysuria Musculoskeletal: PRESENT: back pain Integumentary: ABSENT: pruritus, rash Neurological: PRESENT: weakness. ABSENT: confusion, convulsions, dizziness Psychiatric: ABSENT: anxiety, depression Hematologic/Lymphatic: ABSENT: easy bleeding, easy bruising Physical Exam Vital Signs: Temp Pulse Resp BP Pulse Ox 98.8 F 96 21 H 162/95 H 97 07/19/18 19:45 07/19/18 19:45 07/19/18 16:00 07/19/18 19:45 07/19/18 19:45 Intake & Output 07/18/18 07/19/18 07/20/18 06:59 06:59 06:59 Intake Total 3345 1225 1257 Output Total 500 Balance 2845 1225 1257 Weight 57 kg 62.1 kg General appearance: PRESENT: no acute distress Head exam: PRESENT: atraumatic, normocephalic Eye exam: PRESENT: EOMI, PERRLA. ABSENT: scleral icterus Mouth exam: PRESENT: neck supple Teeth exam: ABSENT: poor dentation Neck exam: ABSENT: meningismus, tenderness, thyromegaly, tracheal deviation Respiratory exam: PRESENT: clear to auscultation teddy, unlabored. ABSENT: chest wall tenderness, tachypnea, wheezes Cardiovascular exam: PRESENT: RRR Pulses: PRESENT: normal radial pulses Vascular exam: PRESENT: normal capillary refill. ABSENT: pallor GI/Abdominal exam: PRESENT: soft. ABSENT: distended, firm, rebound, rigid Rectal exam: PRESENT: deferred Extremities exam: ABSENT: clubbing Musculoskeletal exam: ABSENT: deformity Neurological exam: PRESENT: alert, awake, oriented to person, oriented to place, oriented to time, oriented to situation, CN II-XII grossly intact Psychiatric exam: ABSENT: agitated, anxious, depressed Focused psych exam: ABSENT: delusional Skin exam: ABSENT: cyanosis, erythema, jaundice Results Laboratory Results: 07/19/18 05:45 07/19/18 05:45 07/19/18 07/19/18 07/19/18 05:45 05:45 05:45 WBC 6.6 RBC 2.67 L Hgb 7.6 L Hct 23.1 L MCV 87 MCH 28.5 MCHC 33.0 RDW 15.0 H Plt Count 259 Seg Neutrophils % 54.5 Lymphocytes % 35.3 Monocytes % 8.5 Eosinophils % 1.4 Basophils % 0.3 Absolute Neutrophils 3.6 Absolute Lymphocytes 2.3 Absolute Monocytes 0.6 Absolute Eosinophils 0.1 Absolute Basophils 0.0 Retic Count (auto) 1.69 Absolute Retic 0.045 Sodium 141.3 Potassium 4.2 Chloride 109 H Carbon Dioxide 28 Anion Gap 4 L BUN 14 Creatinine 1.28 H Est GFR ( Amer) 57 L Est GFR (Non-Af Amer) 47 L Glucose 170 H Calcium 8.7 Magnesium 1.5 L Iron TIBC % Saturation Ferritin Total Bilirubin < 0.1 L AST 47 H ALT 57 H Alkaline Phosphatase 111 Total Protein 5.0 L Albumin 2.6 L Vitamin B12 Folate 07/19/18 05:45 WBC RBC Hgb Hct MCV MCH MCHC RDW Plt Count Seg Neutrophils % Lymphocytes % Monocytes % Eosinophils % Basophils % Absolute Neutrophils Absolute Lymphocytes Absolute Monocytes Absolute Eosinophils Absolute Basophils Retic Count (auto) Absolute Retic Sodium Potassium Chloride Carbon Dioxide Anion Gap BUN Creatinine Est GFR ( Amer) Est GFR (Non-Af Amer) Glucose Calcium Magnesium Iron < 10.1 L TIBC 241 L % Saturation UNABLE TO CALCULATE Ferritin 28.50 Total Bilirubin AST ALT Alkaline Phosphatase Total Protein Albumin Vitamin B12 762.0 Folate 7.10 Impressions: Chest X-Ray 07/15/18 00:00 IMPRESSION: The tip of the central venous line is in the superior vena cava. copyright 2010 [employer]- All Rights Reserved Assessment & Plan - Diagnosis (1) History of peptic ulcer disease Is this a current diagnosis for this admission?: Yes (2) Anemia Qualifiers: Anemia type: iron deficiency Is this a current diagnosis for this admission?: No (3) Epigastric abdominal pain Is this a current diagnosis for this admission?: Yes - Plan Summary Plan Summary: This is a 37-year-old female with epigastric abdominal pain, anemia, and a his tory of peptic ulcer disease. The patient is currently not taking any antiacid medications. I have recommended that the patient undergo EGD to assess for ulcerations and H. pylori infection. I have reviewed her previous EGD reports and pathology. She has a history of severe gastritis and duodenitis found 1 year ago. She has no previous evidence of H. pylori disease. I have discussed the procedure in detail. The patient has agreed to the treatment plan. Risks/benefits discussed, informed consent obtained, and all questions answered.
[2018-07-19] MEDS ORDERED: DEXTROSE 40% GEL 15 GM TUBE PO PRN ×2 (21:26)
[2018-07-19] MEDS ORDERED: GLUCAGON,HUMAN RECOMB 1 MG INJ SUBCUT PRN (21:26)
[2018-07-19] MEDS ORDERED: DEXTROSE 50%-WATER 25 GM/50 ML DISP.SYRIN IV PRN ×2 (21:26)
[2018-07-19] MEDS: INSULIN GLARGINE,HUM.REC.ANLOG 1,000 UNIT/10 ML VIAL SUBCUT SCH (21:44)
[2018-07-19 22:55] LABS: IRON(TIBC) 21.5 ug/dL (37-170)
[2018-07-19 23:54] LABS: ABSOLUTE RETICS # 0.048 10^6/uL (0.028-0.122); RETICULOCYTE COUNT (AUTO) 1.81 % (0.66-2.85)
[2018-07-20] MEDS: INSULIN LISPRO 100 UNIT/ML 3 ML VIAL SUBCUT SCH ×3 (07:19→16:38)
[2018-07-20] MEDS: HYDRALAZINE HCL INJ/PF 20 MG/1 ML SDV IV PRN ×2 (07:25→17:17)
[2018-07-20] MEDS: HYDROMORPHONE HCL INJ/PF 2 MG/ML AMPULE IV PRN ×3 (07:26→14:15)
[2018-07-20] MEDS: ONDANSETRON HCL INJ/PF 4 MG/2 ML SDV IV PRN (08:41)
[2018-07-20] MEDS ORDERED: DIPHENHYDRAMINE HCL 50 MG/ML VIAL ONE (10:09)
[2018-07-20] MEDS ORDERED: ONDANSETRON HCL INJ/PF 4 MG/2 ML SDV ONE (10:09)
[2018-07-20] MEDS ORDERED: FENTANYL CITRATE INJ/PF 100 MCG/2 ML AMPUL ONE (10:09)
[2018-07-20] MEDS ORDERED: NALOXONE HCL INJ/PF 0.4 MG/1 ML SDV ONE (10:10)
[2018-07-20] MEDS ORDERED: GLUCAGON,HUMAN RECOMB 1 MG INJ ONE (10:10)
[2018-07-20] MEDS ORDERED: EPINEPHRINE INJ 1 MG/10 ML DISP.SYRIN ONE (10:10)
[2018-07-20] MEDS ORDERED: FLUMAZENIL INJ 0.5 MG/5 ML VIAL ONE (10:10)
[2018-07-20] MEDS: ENOXAPARIN SODIUM INJ 40 MG/0.4 ML DISP.SYRIN SUBCUT SCH (10:22)
[2018-07-20] MEDS: MIDAZOLAM 2 MG/2 ML INJ ONE ×2 (14:37→14:43)
--- NOTE | 2018-07-20 15:04 | Operative Report ---
Nonrecallable Operative Report DATE OF SURGERY: 07/20/18 PREOPERATIVE DIAGNOSIS: Abdominal pain epigastric area POSTOPERATIVE DIAGNOSIS: Same; no evidence of upper gastrointestinal pathology OPERATION: EGD with photodocumention SURGEON: GONZALO DUPONT ANESTHESIA: Moderate Sedation TISSUE REMOVED OR ALTERED: None COMPLICATIONS: None ESTIMATED BLOOD LOSS: None INTRAOPERATIVE FINDINGS: See below PROCEDURE: The patient was taken from the nursing floor to the endoscopy suite where she was placed in a semirecumbent position left lateral tilt, support lines attached, and appropriate level of conscious sedation initiated timeout were conducted. The flexible upper endoscope was advanced to the oropharynx, down the esophagus through the stomach into the first and second portions of this procedure was well-tolerated by the patient. The entire endoscopic examination was normal. The first and second portions of the duodenum were unremarkable. The pylorus was unremarkable. The scope was retroflexed in the stomach and there was no significant hiatal hernia. There is no evidence of tumor stricture bleeding or ulcer or retained gastric contents. Photos were taken. No biopsies were performed. The GE junction was at approximately 40 cm in the incisor. There was no evidence of esophagitis. The scope was withdrawn through the length of the esophagus check in the mucosa carefully. There is no evidence of varix or stricture. The scope was withdrawn for the patient oropharynx. She tolerated procedure well. This was essentially a normal esophagogastro duodenoscopy. The impression was shared with the primary care team. Surgery will sign off. Reconsult if necessary.
[2018-07-20] MEDS: PHENYTOIN SODIUM EXTENDED 100 MG CAPSULE PO SCH (15:31)
[2018-07-20] MEDS: METOPROLOL TARTRATE 50 MG TABLET PO SCH (15:31)
[2018-07-20] MEDS: DOCUSATE SODIUM 100 MG CAPSULE PO SCH (15:31)
[2018-07-20] MEDS: AMLODIPINE BESYLATE 10 MG TABLET PO SCH (15:31)
[2018-07-20] MEDS: GABAPENTIN 100 MG CAPSULE PO SCH (15:32)
[2018-07-20] MEDS: LISINOPRIL 10 MG TABLET PO SCH (15:32)
[2018-07-20 16:00] LABS: HEMATOCRIT 26.8 % (36.0-47.0); HEMOGLOBIN 8.8 g/dL (12.0-15.5); MEAN CORPUSCULAR HEMOGLOBIN 28.7 pg (27.0-33.4); MEAN CORPUSCULAR VOLUME 87 fl (80-97); PLATELET COUNT 303 10^3/uL (150-450); RED BLOOD COUNT 3.08 10^6/uL (3.72-5.28); RED CELL DISTRIBUTION WIDTH 15.2 % (11.5-14.0); WHITE BLOOD COUNT 7.3 10^3/uL (4.0-10.5)
[2018-07-20 17:58] VITALS: BP 136/81
--- NOTE | 2018-07-24 16:20 | PDOC DISCHARGE SUMMARY ---
General - Admit/Disc Date/PCP Admission Date/Primary Care Provider: 07/15/18 18:28 LYNNE OLMEDO Discharge Date: 07/20/18 - Discharge Diagnosis (1) Acute on chronic pancreatitis Is this a current diagnosis for this admission?: Yes (2) Anemia Is this a current diagnosis for this admission?: No (3) Acute kidney injury superimposed on CKD Is this a current diagnosis for this admission?: Yes (4) Hypertension Is this a current diagnosis for this admission?: No (5) Leukocytosis Is this a current diagnosis for this admission?: Yes (6) Seizure disorder Is this a current diagnosis for this admission?: No (7) Uncontrolled type 2 diabetes mellitus Is this a current diagnosis for this admission?: No - Additional Information Resuscitation Status: Full Code Discharge Diet: As Tolerated Discharge Activity: Activity As Tolerated Prescriptions: Ferrous Sulfate [Albafort] 325 mg PO DAILY 30 Days #30 tablet Pantoprazole Sodium [Protonix] 40 mg PO DAILY 30 Days #42 tbs NS Home Medications: Amlodipine Besylate [Norvasc 10 mg Tablet] 10 mg PO DAILY 07/16/18 Chlorthalidone [Hygroton 25 mg Tablet] 25 mg PO DAILY 07/16/18 Docusate Sodium [Colace 100 mg Capsule] 100 mg PO BID 07/16/18 Gabapentin [Neurontin 100 mg Capsule] 100 mg PO Q12 07/16/18 Insulin Aspart [Novolog Insulin (Aspart) 100 unit/mL] 5 unit SUBCUT AC 07/16/18 Insulin Glargine,Hum.rec.anlog [Lantus Insulin 100 Unit/1 ml 10 ml] 30 unit SUBCUT QAM 07/16/18 Lisinopril [Prinivil 40 mg Tablet] 40 mg PO DAILY 07/16/18 Metoprolol Tartrate [Lopressor 50 mg Tablet] 50 mg PO Q12 07/16/18 Ferrous Sulfate [Albafort] 325 mg PO DAILY 30 Days #30 tablet 07/20/18 Pantoprazole Sodium [Protonix] 40 mg PO DAILY 30 Days #42 tbs NS 07/20/18 History of Present Illness History of Present Illness: JJ HOFFMAN is a 37 year old female past medical history of recurrent alcoholic pancreatitis, recently discharged from [facility] for similar episode, today she presented to ED complaining of nausea vomiting and abdominal pain. Started last night at 4 AM, epigastric, 9/10, radiating, cramping, initiated with nausea and vomiting of 20 times coffee-ground. Denies any fever, chills, chest pain, diarrhea, constipation or any urinary symptoms. Endorses one abuse, states that helps her with her pain. 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 Endorses history of seizure and being on Dilantin in the past but noncompliant due to financial reasons. Hospital Course Hospital Course: (1) Acute on chronic pancreatitis Recurrent alcoholic pancreatitis. Denies EtOH abuse. Endorses marijuana abuse. Continued on IV fluids guided by volume status, monitor electrolytes, opiate analgesics. Patient denies any abdominal pain nausea vomiting at the time of discharge. P.o. tolerant and passing flatus and having normal bowel movements. (2) Anemia Likely a combination of iron deficiency anemia/CKD. History of partial hysterectomy. Guaiac positive. Hemoglobin 7.6 today. Received 1 PRBC. Denies any melena, hematemesis, hematochezia, hemoptysis, vaginal bleed or any bruising. Surgery was consulted and patient underwent upper GI endoscopy which was negative for any acute bleeding. Patient was discharged home on pantoprazole 40 twice daily 6 weeks and ferrous sulfate daily. Follow-up with PCP as soon as possible. Her mother who was present at the [facility] at the time of discharge she will make sure to to PCP tomorrow. (3) Acute kidney injury superimposed on CKD Improved. Creatinine back to baseline. Today creatinine 1.28. Prerenal, most likely due to volume depletion caused by p.o. tolerance. IV fluids guided by volume status, monitor electrolytes. Daily CMP was ordered. (4) Hypertension Euvolemic, normotensive. Start on home meds of amlodipine, beta-blockers, CR. Was asked follow-up with PCP as soon as possible. (5) Leukocytosis Afebrile. WBC within normal limits. Likely due to pancreatitis. Cultures negative. DC IV antibiotics. Received 4 days of empiric IV antibiotics. (6) Seizure disorder Has not had any seizures on this admission. Endorses of seizure, used to take Dilantin, noncompliant due to financial reas on. Continue Dilantin. Continue seizure precautions. Asked to continue Dilantin. Follow-up with PCP as soon as possible. (7) Uncontrolled type 2 diabetes mellitus Uncontrolled. A1c 10%. Diabetic diet, sliding scale insulin, long-acting insulin, pre-meal insulin, adjust dosage as needed. Was asked to continue her insulin regimen and follow-up with PCP. Physical Exam Vital Signs: Temp Pulse Resp BP Pulse Ox 98.7 F 88 14 136/81 H 98 07/20/18 16:09 07/20/18 17:50 07/20/18 16:09 07/20/18 17:50 07/20/18 17:50 General appearance: PRESENT: no acute distress, well-developed, well-nourished Head exam: PRESENT: atraumatic, normocephalic Respiratory exam: PRESENT: clear to auscultation teddy. ABSENT: rales, rhonchi, wheezes Cardiovascular exam: PRESENT: RRR. ABSENT: diastolic murmur, rubs, systolic mur mur GI/Abdominal exam: PRESENT: normal bowel sounds, soft. ABSENT: distended, guarding, mass, organolmegaly, rebound, tenderness Extremities exam: PRESENT: full ROM. ABSENT: calf tenderness, clubbing, pedal edema Neurological exam: PRESENT: alert, awake, oriented to person, oriented to place, oriented to time, oriented to situation, CN II-XII grossly intact. ABSENT: motor sensory deficit Results Laboratory Results: 07/20/18 15:40 07/19/18 05:45 Impressions: Chest X-Ray 07/15/18 00:00 IMPRESSION: The tip of the central venous line is in the superior vena cava. copyright 2010 [employer]- All Rights Reserved Qualifiers - * PATIENT BEING DISCHARGED WITH ANY OF THE FOLLOWING DIAGNOSIS: No Acute Heart Failure - Is this a Heart Failure Patient?: No LVEF < 40%?: No- if no continue to question #3 3. Anticoagulant therapy for permanect/persistent/paraoxysmal Afib or Aflutter: N/A
== END 2018-07-20 18:04 | disposition home or self-care (01) | DRG 439 ==
LOC: ER 15:20 → EH 18:28 → 4S 19:15
PROVIDERS: ADMIT Internal Medicine; ATTEND Internal Medicine
PROC: 02HV33Z Insertion of Infusion Device into Superior Vena Cava, Percutaneous Approach (ICD-10-PCS; principal; 2018-07-15)
PROC: 0DJ08ZZ Inspection of Upper Intestinal Tract, Via Natural or Artificial Opening Endoscopic (ICD-10-PCS; 2018-07-20)
DX: K85.20 Alcohol induced acute pancreatitis without necrosis or infection (principal); N17.9 Acute kidney failure, unspecified; E78.5 Hyperlipidemia, unspecified; K86.0 Alcohol-induced chronic pancreatitis; J44.9 Chronic obstructive pulmonary disease, unspecified; F12.10 Cannabis abuse, uncomplicated; D72.829 Elevated white blood cell count, unspecified; G40.909 Epilepsy, unspecified, not intractable, without status epilepticus; D63.1 Anemia in chronic kidney disease; E11.65 Type 2 diabetes mellitus with hyperglycemia; E11.22 Type 2 diabetes mellitus with diabetic chronic kidney disease; I12.9 Hypertensive chronic kidney disease with stage 1 through stage 4 chronic kidney disease, or unspecified chronic kidney disease; N18.9 Chronic kidney disease, unspecified; R33.0 Drug induced retention of urine; D50.9 Iron deficiency anemia, unspecified; Z59.7 Insufficient social insurance and welfare support; Z88.6 Allergy status to analgesic agent; Z79.4 Long term (current) use of insulin; T42.0X6A Underdosing of hydantoin derivatives, initial encounter; Z91.120 Patient's intentional underdosing of medication regimen due to financial hardship
CPT/HCPCS: 36415; 43235; 71045; 80048; 80053; 80076; 80185; 80307; 81001; 82607; 82728; 82746; 82962; 83036; 83540; 83550; 83690; 83735; 85025; 85027; 85045; 87040; 87086; 96374; 96375; 99285; J0171; J0360; J0696; J1170; J1200; J1610; J1650; J1815; J2250; J2310; J2405; J3010; J3475; J3490; J7030; J7060; S0164

== ENCOUNTER 2018-08-04 11:28 | Inpatient (IN) | payer MEDICAID ==
[2018-08-04] MEDS ORDERED: ACETAMINOPHEN 325 MG TABLET PO ONE (13:53)
--- NOTE | 2018-08-04 14:07 | ER Document Report ---
ED General - General Chief Complaint: Low Blood Sugar Stated Complaint: BLOOD SUGAR ISSUES Time Seen by Provider: 08/04/18 14:06 Primary Care Provider: RONALD BARKER FNP-C [Primary Care Provider] - Follow up as needed TRAVEL OUTSIDE OF THE [place] 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 Patient states that her blood sugar was 53 this morning and her rod and tube straightener office. States that her upper abdominal pain feels similar to her prior pancreatitis episodes and she was last admitted for pancreatitis and discharged on July 24. She denies any fevers, chills, chest pain, shortness of breath, headache, bloody stool. Upon arrival here in the emergency department because her sugar was measured as low, she was given a meal. Repeat initial sugar was in the 300s. She also states that her pain got worse after she ate and has been crying on the stretcher due to the pain. She has not seen a GI specialist for this and she is unsure if she is on any pancreatic enzymes. She does have a history of alcohol abuse but states she has not had a drink in 6 years. - Related Data Allergies/Adverse Reactions: hydrocodone [From [place]] Allergy (Verified 06/15/18 07:15) morphine Allergy (Verified 06/15/18 07:15) Past Medical History - General Information source: Patient - Social History Smoking Status: Current Every Day Smoker Chew tobacco use (# tins/day): No Frequency of alcohol use: hx of ETOH abuse Drug Abuse: Marijuana Family History: Reviewed & Not Pertinent, DM, Hypertension Patient has suicidal ideation: No Patient has homicidal ideation: No - Past Medical History Cardiac Medical History: Reports: Hx Hypercholesterolemia, Hx Hypertension Denies: Hx Congestive Heart Failure, Hx Coronary Artery Disease, Hx DVT, Hx Heart Attack Pulmonary Medical History: Reports: Hx COPD Neurological Medical History: Reports: Hx Seizures. Denies: Hx Migraine Endocrine Medical History: Reports: Hx Diabetes Mellitus Type 1, Hx Diabetes Mellitus Type 2 Renal/ Medical History: Denies: Hx End Stage Renal Disease, Hx Peritoneal Dialysis GI Medical History: Reports: Hx Pancreatitis. Denies: Hx Cirrhosis Musculoskeletal Medical History: Denies Hx Arthritis Skin Medical History: Denies Hx Eczema, Denies Hx Psoriasis Psychiatric Medical History: Denies: Hx Dementia, Hx Depression Past Surgical History: Reports: Hx Section - x3, Hx Hysterectomy Review of Systems - Review of Systems Constitutional: Malaise. denies: Chills, Fever EENT: No symptoms reported Cardiovascular: denies: Chest pain, Palpitations, Heart racing, Syncope, Dizziness, Lightheaded Respiratory: denies: Cough, Short of breath Gastrointestinal: Abdominal pain, Diarrhea, Nausea, Vomiting. denies: Blood streaked bowels, Black stools, Rectal bleeding Skin: denies: No symptoms reported Hematologic/Lymphatic: denies: No symptoms reported Neurological/Psychological: denies: No symptoms reported -: Yes All other systems reviewed and negative Physical Exam - Vital signs Vitals: Resp Pulse Ox 15 99 08/04/18 11:51 08/04/18 11:51 Selected Entries 08/04/18 14:01 Heart Rate ( 106 Monitors) Respiratory 21 H Rate Blood Pressure 181/111 H Blood Pressure 134 Mean O2 Sat by Pulse 97 Oximetry - General General appearance: Other In distress: Moderate - moderate Pain distress, and is crying - HEENT Head: Normocephalic, Atraumatic Eyes: Normal Pupils: PERRL - Respiratory Respiratory status: No respiratory distress Chest status: Nontender Breath sounds: Normal Chest palpation: Normal - Cardiovascular Rhythm: Regular Heart sounds: Normal auscultation Murmur: No - Abdominal Inspection: Normal Distension: No distension Bowel sounds: Normal Tenderness: Tender - Tenderness to palpation over the epigastrium. No: McBurney's point, Burr's sign, Guarding, Rebound, Other Organomegaly: No: No organomegaly - Back Back: Normal, Nontender - Extremities General upper extremity: Normal inspection, Nontender, Normal color, Normal ROM, Normal temperature General lower extremity: Normal inspection, Nontender, Normal color, Normal ROM, Normal temperature, Normal weight bearing. No: Raheem's sign - Neurological Neuro grossly intact: Yes Cognition: Normal Orientation: AAOx4 [place] Scale Eye Opening: Spontaneous [place] Com[place] Scale Verbal: Oriented [place] Coma Scale Motor: Obeys Commands [place] Com[place] Scale Total: 15 Speech: Normal Motor strength normal: LUE, RUE, LLE, RLE Sensory: Normal - Psychological Associated symptoms: Normal affect, Normal mood - Skin Skin Temperature: Warm Skin Moisture: Dry Skin Color: Normal Course - Re-evaluation Re-evalutation: 08/04/18 17:53 patient is feeling better after pain control, however, her lipase is 5000. Discussed patient with Dr. Christopher, we agree she will get a CT and then will plan on Admission. Will make patient NPO, give fluids. Her glucose increased to 500 and I gave her 8 units of insulin. Her insulin has decreased to 251. She does not appear to be in DKA. Will monitor closely. - Vital Signs Vital signs: Temp Pulse Resp BP Pulse Ox 21 H 181/111 H 97 08/04/18 14:01 08/04/18 14:01 08/04/18 14:01 - Laboratory Result Diagrams: 08/04/18 15:45 08/04/18 15:45 Laboratory results interpreted by me: 08/04/18 08/04/18 08/04/18 12:55 15:45 15:45 RBC 3.64 L Hgb 10.2 L Hct 32.0 L MCHC 31.9 L RDW 15.1 H Sodium 135.9 L BUN 30 H Creatinine 1.28 H Est GFR ( Amer) 57 L Est GFR (Non-Af Amer) 47 L Glucose 511 H* POC Glucose 340 H Alkaline Phosphatase 131 H Lipase 5516.6 H 08/04/18 17:54 RBC Hgb Hct MCHC RDW Sodium BUN Creatinine Est GFR ( Amer) Est GFR (Non-Af Amer) Glucose POC Glucose 251 H Alkaline Phosphatase Lipase - Transfer of Care Notes: 08/04/[address] Christopher. She agrees patient will require a CT of the abdomen and likely admission since her lipase is 5000. Will obtain CT and if it looks okay will admit to the hospitalist service. Noted CT reading. Spoke with Dr. Anguiano, hospitalist. He agrees that patient will need admission and he will advise his restaurant shift supervisor colleague of the admission. Dr. Christopher spoke with Dr. Colmenares, nighttime hospitalist. He agrees with the plan for admission. Discharge - Discharge Clinical Impression: Pancreatitis, Hyperglycemia Condition: Stable Disposition: ADMITTED INPATIENT Admitting Provider: Darrian (Hospitalist) Unit Admitted: Medical Floor Referrals: RONALD BARKER, ROSIO-C [Primary Care Provider] - Follow up as needed
[2018-08-04] MEDS ORDERED: HYDROMORPHONE HCL INJ/PF 2 MG/ML AMPULE IV ONE ×2 (15:12→17:23)
[2018-08-04] MEDS ORDERED: PROMETHAZINE HCL INJ 25 MG/1 ML VIAL IV ONE (15:12)
[2018-08-04] MEDS ORDERED: PANTOPRAZOLE SODIUM 40 MG VIAL IV ONE (15:13)
[2018-08-04 15:56] LABS: ABSOLUTE LYMPHOCYTES (AUTO) 1.8 10^3/uL (0.5-4.7); ABSOLUTE MONOCYTES (AUTO) 0.4 10^3/uL (0.1-1.4); ABSOLUTE NEUT (AUTO) 5.1 10^3/uL (1.7-8.2); BASOPHILS % (AUTO) 0.7 % (0-2); EOSINOPHILS % (AUTO) 0.5 % (0-6); HEMOGLOBIN 10.2 g/dL (12.0-15.5); LYMPHOCYTES % (AUTO) 24.1 % (13-45); MEAN CORPUSCULAR HEMOGLOBIN 28.1 pg (27.0-33.4); MEAN CORPUSCULAR HGB CONC 31.9 g/dL (32.0-36.0); MEAN CORPUSCULAR VOLUME 88 fl (80-97); PLATELET COUNT 373 10^3/uL (150-450); RED BLOOD COUNT 3.64 10^6/uL (3.72-5.28); RED CELL DISTRIBUTION WIDTH 15.1 % (11.5-14.0); SEGMENTED NEUTROPHILS % (AUTO) 69.7 % (42-78); TOTAL CELLS COUNTED % (AUTO) 100 %; WHITE BLOOD COUNT 7.3 10^3/uL (4.0-10.5)
[2018-08-04 16:08] LABS: INTERNATIONAL RATION (INR) 1.04; PARTIAL THROMBOPLASTIN TIME 29.1 SEC (23.5-35.8); PROTHROMBIN TIME 13.6 SEC (11.4-15.4)
[2018-08-04 16:14] LABS: ALANINE AMINOTRANSFERASE 44 U/L (9-52); ALBUMIN 3.8 g/dL (3.5-5.0); ALKALINE PHOSPHATASE 131 U/L (38-126); ANION GAP 11 (5-19); ASPARTATE AMINO TRANSFERASE 30 U/L (14-36); BILIRUBIN,DIRECT 0.2 mg/dL (0.0-0.4); BILIRUBIN,TOTAL 0.3 mg/dL (0.2-1.3); BLOOD UREA NITROGEN 30 mg/dL (7-20); CALCIUM 9.4 mg/dL (8.4-10.2); CARBON DIOXIDE 25 mmol/L (22-30); CHLORIDE 100 mmol/L (98-107); SODIUM 135.9 mmol/L (137-145); TOTAL PROTEIN 6.8 g/dL (6.3-8.2)
[2018-08-04] MEDS ORDERED: INSULIN REG, HUMAN 100 UNIT/ML 3 ML VIAL (PYX) IV ONE (16:15)
[2018-08-04] MEDS ORDERED: NORMAL SALINE 1000 ML 1,000 ML IV ONE (16:15)
[2018-08-04 16:30] LABS: LIPASE 5516.6 U/L (23-300)
[2018-08-04 16:32] LABS: GLUCOSE 511 mg/dL (75-110)
--- NOTE | 2018-08-04 17:41 | RADIOLOGY REPORT (SQ) ---
EXAM DESCRIPTION: CT ABD/PELVIS WITH IV ONLY COMPLETED DATE/TIME: 08/04/2018 5:16 pm REASON FOR STUDY: epigastric pain, lipase 5000 COMPARISON: 07/04/2018 TECHNIQUE: CT scan of the abdomen and pelvis performed using helical scanning technique with dynamic intravenous contrast injection. No oral contrast. Images reviewed with lung, soft tissue, and bone windows. Reconstructed coronal and sagittal MPR images reviewed. Delayed images for evaluation of the urinary system also acquired. All images stored on PACS. All CT scanners at this facility use dose modulation, iterative reconstruction, and/or weight based d osing when appropriate to reduce radiation dose to as low as reasonably achievable (ALARA). [facility]: Dose Right [facility]: CareDose [facility]: Dose Right [facility]: Teradose 4D [facility]: [employer] CONTRAST TYPE AND DOSE: contrast/concentration: Isovue 350.00 mg/ml; Total Contrast Delivered: 66.0 ml; Total Saline Delivered: 62.0 ml RENAL FUNCTION: BUN 30 creatinine 1.28 RADIATION DOSE: CT Rad equipment meets quality standard of care and radiation dose reduction techniq ues were employed. CTDIvol: 5.1 - 6.1 mGy. DLP: 592 mGy-cm.. LIMITATIONS: None. FINDINGS: LOWER CHEST: No significant findings. No nodules or infiltrates. LIVER: Normal size. No masses. No dilated ducts. SPLEEN: Normal size. No focal lesions. PANCREAS: Calcifications. Persistent dilatation of the pancreatic duct. No acute pancreatic or stephanie pancreatic inflammatory changes. GALLBLADDER: No identified stones by CT criteria. No inflammatory changes to suggest cholecystitis. ADRENAL GLANDS: No significant masses or asymmetry. RIGHT KIDNEY AND URETER: No solid masses. No significant calcifications. No hydronephrosis or hyd roureter. LEFT KIDNEY AND URETER: No solid masses. No significant calcifications. No hydronephrosis or hydr oureter. AORTA AND VESSELS: No aneurysm. No dissection. Renal arteries, SMA, celiac without stenosis. RETROPERITONEUM: No retroperitoneal adenopathy, hemorrhage or masses. BOWEL AND PERITONEAL CAVITY: Considerable retained stool. No obvious bowel mass. No inflammation. APPENDIX: Not identified. PELVIS: No mass. No free fluid. Normal bladder. ABDOMINAL WALL: No masses. No hernias. BONES: No significant or acute findings. OTHER: No other significant finding. IMPRESSION: Chronic pancreatitis with no evidence of acute pancreatitis. Constipation. TECHNICAL DOCUMENTATION: JOB ID: [id number] Quality ID # [id number]: Final reports with documentation of one or more dose reduction techniques (e.g., Au tomated exposure control, adjustment of the mA and/or kV according to patient size, use of iterative reconstruction technique) 2010 [employer]- All Rights Reserved Reading location - IP/workstation name: [email or web address]
[2018-08-04] MEDS ORDERED: MAG HYDROX/AL HYDROX/SIMETH SUSP 30 ML UDCUP PO PRN (19:46)
[2018-08-04] MEDS ORDERED: RINGERS SOLUTION,LACTATED 1,000 ML IV PRN (19:46)
[2018-08-04] MEDS ORDERED: MAGNESIUM HYDROXIDE SUSP 30 ML UDCUP PO PRN (19:46)
[2018-08-04] MEDS ORDERED: ZOLPIDEM TARTRATE 5 MG TABLET PO PRN (19:46)
[2018-08-04] MEDS ORDERED: GLUCAGON,HUMAN RECOMB 1 MG INJ IM PRN (19:51)
[2018-08-04] MEDS ORDERED: DEXTROSE 40% GEL 15 GM TUBE PO PRN ×2 (19:51)
[2018-08-04] MEDS ORDERED: DEXTROSE 50%-WATER 25 GM/50 ML DISP.SYRIN IV PRN (19:51)
[2018-08-04] MEDS ORDERED: ACETAMINOPHEN 325 MG TABLET PO PRN (19:53)
[2018-08-04] MEDS ORDERED: NICOTINE 21 MG/24 HR PATCH.TD24 TD PRN (19:53)
[2018-08-04] MEDS ORDERED: LEVALBUTEROL HCL NEB 0.63 MG/3 ML AMPUL NEB PRN (19:53)
[2018-08-04] MEDS ORDERED: HYDROMORPHONE HCL INJ/PF 2 MG/ML AMPULE IV PRN (19:54)
[2018-08-04 20:28] LABS: VENOUS BLOOD BASE EXCESS -2.1 mmol/L; VENOUS BLOOD HCO3 24.6 mmol/L (20-32); VENOUS BLOOD PCO2 50.5 mmHg (35-63); VENOUS BLOOD PH 7.31 (7.30-7.42)
[2018-08-04] MEDS: HYDROMORPHONE HCL INJ/PF 2 MG/ML AMPULE IV PRN (20:39)
[2018-08-04] MEDS: METOCLOPRAMIDE HCL 10 MG TABLET PO SCH (23:32)
[2018-08-04] MEDS: HEPARIN SOD (PORCINE) 5,000 UNIT/ML 1 ML SYRINGE SUBCUT SCH (23:34)
[2018-08-05] MEDS: HYDRALAZINE HCL INJ/PF 20 MG/1 ML SDV IV PRN ×2 (00:45→11:36)
[2018-08-05] MEDS: HYDROMORPHONE HCL INJ/PF 2 MG/ML AMPULE IV PRN ×5 (00:53→21:34)
--- NOTE | 2018-08-05 00:53 | ADVANCED CARE ---
- Diagnosis (1) Epigastric abdominal pain Diagnosis Current: Yes (2) Acute on chronic pancreatitis Diagnosis Current: Yes (3) Uncontrolled type 2 diabetes mellitus Diagnosis Current: Yes (4) Chronic kidney disease Diagnosis Current: Yes (5) Hypertension Diagnosis Current: Yes (6) Tobacco dependence Diagnosis Current: Yes Attendance: Patient and myself Resuscitation Status: Full Code Discussion: After discussion patient has decided that she wishes to remain as a full code resuscitation status for her CODE STATUS throughout the remainder of her hospital course. Additionally she has named Felicita Simpson as her designated surrogate medical decision-maker. She is not interested in discussing a living will at this time. Care Planning Goals: 1. Patient will be full CODE STATUS for cardiac or respiratory arrest occurring during this hospitalization. 2. Felicita Simpson will be the patient's designated surrogate medical decision maker. Document(s) Completed: The following entries will be made to the patient's permanent medical record and current medical orders per EMR entry: 1. Patient will be full CODE STATUS for cardiac or respiratory arrest occurring during this hospitalization. 2. Felicita Simpson will be the patient's designated surrogate medical decision maker. Time Spent: 8 minutes
--- NOTE | 2018-08-05 00:58 | PDOC H&P ---
History of Present Illness Admission Date/PCP: 08/04/2018 18:29 LYNNE OLMEDO Patient complains of: Abdominal pain History of Present Illness: JJ HOFFMAN is a 37 year old female who presented to the emergency room with acute abdominal pain. She admits the gradual but rapidly progressing onset of acute pain in her upper abdomen beginning on the morning of admission. She describes her pain as a constant, severe, sharp gripping deep pain in her upper abdomen radiating through to her back. Her pain was accompanied by hypoglycemia and was worsened after eating. She denies other associated or accompanying symptoms. She admits prior similar episodes associated with acute exacerbations of chronic recurrent alcoholic pancreatitis. She has not identified any other aggravating or ameliorating factors for her abdominal pain. In the emergency room she was found to have a low blood sugar and a lipase of 5000 with an abdominal and pelvic CT scan confirmatory for evidence of acute pancreatitis. She was subsequently admitted to the hospital for further evaluation and treatm ent. Past Medical History Cardiac Medical History: Reports: Hyperlipidema, Hypertension Denies: Congestive Heart Failure, Coronary Artery Disease, DVT, Myocardial Infarction Pulmonary Medical History: Reports: Chronic Obstructive Pulmonary Disease (COPD) Denies: Asthma, Respiratory Failure EENT Medical History: Denies: Cataracts, Ears - Hearing aids Neurological Medical History: Reports: Seizures Denies: Hemorrhagic CVA, Ischemic CVA, Migraine, Multiple Sclerosis Endocrine Medical History: Reports: Diabetes Mellitus Type 2 Denies: Hyperthyroidism, Hypothyroidism, Obesity Renal/ Medical History: Reports: Chronic Kidney Disease Denies: Nephrolithiasis Malignancy Medical History: Reports: None GI Medical History: Reports: Peptic Ulcer Disease, Other - Chronic recurrent alcoholic pancreatitis Denies: Cirrhosis, Crohn's Disease, Diverticulitis, Gastroesophageal Reflux Disease, Hepatitis, Hiatal Hernia, Ulcerative Colitis Musculoskeltal Medical History: Denies: Arthritis, Fibromyalgia, Gout Skin Medical History: Denies: Eczema, Psoriasis Psychiatric Medical History: Reports: Alcohol Dependency, Substance Abuse, Tobacco Dependency Traumatic Medical History: Reports: None Hematology: Reports: Anemia Denies: Bleeding Tendencies Infectious Medical History: Reports: None Past Surgical History Past Surgical History: Reports: Section - x3, Hysterectomy Social History Information Source: Patient Lives with: Family Smoking Status: Current Every Day Smoker Frequency of Alcohol Use: None Hx Recreational Drug Use: Yes Drugs: Marijuana Hx Prescription Drug Abuse: No - Advance Directive Resuscitation Status: Full Code Surrogate healthcare decision maker:: Felicita Simpson her mother Family History Family History: DM, Hypertension Parental Family History Reviewed: Yes Children Family History Reviewed: No Sibling(s) Family History Reviewed.: Yes Medication/Allergy Home Medications: Amlodipine Besylate [Norvasc 10 mg Tablet] 10 mg PO DAILY 08/04/18 Chlorthalidone [Hygroton 25 mg Tablet] 25 mg PO DAILY 08/04/18 Docusate Sodium [Colace 100 mg Capsule] 100 mg PO BID 08/04/18 Famotidine [Pepcid 20 mg Tablet] 20 mg PO Q12 08/04/18 Ferrous Sulfate [Feosol 325 mg Tablet] 325 mg PO DAILY 08/04/18 Gabapentin [Neurontin 100 mg Capsule] 100 mg PO Q12 08/04/18 Insulin Aspart [Novolog Insulin 100 Unit/1 ml 10 ml] 10 unit SQ AC 08/04/18 Insulin Glargine,Hum.rec.anlog [Lantus Insulin 100 Unit/1 ml 10 ml] 30 unit SUBCUT QHS 08/04/18 Lisinopril [Prinivil 40 mg Tablet] 40 mg PO DAILY 08/04/18 Metoprolol Tartrate [Lopressor 50 mg Tablet] 50 mg PO Q12 08/04/18 Pantoprazole Sodium [Protonix [address] Tablet] 40 mg PO DAILY 08/04/18 Allergies/Adverse Reactions: hydrocodone [From [place]] Allergy (Verified 06/15/18 07:15) morphine Allergy (Verified 06/15/18 07:15) Review of Systems Constitutional: ABSENT: chills, fever(s) Eyes: ABSENT: visual disturbances, other - Eye pain Ears: PRESENT: other - Ear pain. ABSENT: hearing changes Nose, Mouth, and Throat: ABSENT: mouth pain, sore throat Cardiovascular: ABSENT: chest pain, palpitations Respiratory: ABSENT: cough, dyspnea Gastrointestinal: PRESENT: as per HPI, abdominal pain. ABSENT: constipation, diarrhea, dysphagia, nausea, vomiting Genitourinary: ABSENT: dysuria, hematuria Musculoskeletal: PRESENT: other - Pain in bilateral posterior calves with possible swelling. ABSENT: back pain, joint swelling, muscle weakness Integumentary: ABSENT: pruritus, rash Neurological: ABSENT: confusion, convulsions, focal weakness, memory loss, syncope Psychiatric: ABSENT: anxiety, depression Endocrine: ABSENT: cold intolerance, heat intolerance Hematologic/Lymphatic: ABSENT: easy bleeding, easy bruising Physical Exam Vital Signs: Temp Pulse Resp BP Pulse Ox 21 H 181/111 H 97 08/04/18 14:01 08/04/18 14:01 08/04/18 14:01 Intake & Output 08/02/18 08/03/18 08/04/18 23:59 23:59 23:59 Weight 58.967 kg General appearance: PRESENT: cooperative, mild distress - Secondary to abdominal pain Head exam: PRESENT: atraumatic, normocephalic Eye exam: ABSENT: conjunctival injection, scleral icterus Ear exam: PRESENT: normal external ear exam. ABSENT: bleeding, drainage Mouth exam: PRESENT: dry mucosa, neck supple Neck exam: ABSENT: JVD, thyromegaly, tracheal deviation Respiratory exam: PRESENT: clear to auscultation teddy, symmetrical, tachypnea, unlabored Cardiovascular exam: PRESENT: RRR, tachycardia. ABSENT: clicks, gallop, rubs Pulses: PRESENT: normal radial pulses, normal dorsalis pedis pul Vascular exam: PRESENT: normal capillary refill. ABSENT: pallor GI/Abdominal exam: PRESENT: hypoactive bowel sounds, soft, tenderness - Moderate to severe epigastric tenderness on palpation Rectal exam: PRESENT: deferred Extremities exam: PRESENT: tenderness - Bilateral posterior calf tenderness without erythema or edema, no palpable venous cords. ABSENT: joint swelling, pedal edema Musculoskeletal exam: PRESENT: full ROM. ABSENT: deformity, dislocation Neurological exam: PRESENT: alert, oriented to person, oriented to place, oriented to time, oriented to situation, CN II-XII grossly intact. ABSENT: maryanne r sensory deficit Psychiatric exam: PRESENT: appropriate affect, normal mood Skin exam: PRESENT: dry, intact, warm. ABSENT: jaundice, rash, urticaria Results Laboratory Results: 08/04/18 15:45 08/04/18 15:45 08/04/18 08/04/18 15:45 15:45 WBC 7.3 RBC 3.64 L Hgb 10.2 L Hct 32.0 L MCV 88 MCH 28.1 MCHC 31.9 L RDW 15.1 H Plt Count 373 Seg Neutrophils % 69.7 Lymphocytes % 24.1 Monocytes % 5.0 Eosinophils % 0.5 Basophils % 0.7 Absolute Neutrophils 5.1 Absolute Lymphocytes 1.8 Absolute Monocytes 0.4 Absolute Eosinophils 0.0 Absolute Basophils 0.0 Sodium 135.9 L Potassium 5.0 Chloride 100 Carbon Dioxide 25 Anion Gap 11 BUN 30 H Creatinine 1.28 H Est GFR ( Amer) 57 L Est GFR (Non-Af Amer) 47 L Glucose 511 H* Calcium 9.4 Total Bilirubin 0.3 AST 30 ALT 44 Alkaline Phosphatase 131 H Total Protein 6.8 Albumin 3.8 Lipase 5516.6 H 08/04/18 15:45 Troponin I < 0.012 Impressions: Abdomen/Pelvis CT 08/04/18 16:45 IMPRESSION: Chronic pancreatitis with no evidence of acute pancreatitis. Constipation. Assessment and Plan - Diagnosis (1) Epigastric abdominal pain Is this a current diagnosis for this admission?: Yes Plan: Patient will be treated with supportive and symptomatic cares. She will receive IV fluids and her pain will be treated with Dilaudid 1 mg IV every 2 hours on a as needed basis. (2) Acute on chronic pancreatitis Is this a current diagnosis for this admission?: Yes Plan: Patient will receive supportive and symptomatic cares as well as IV fluids. A diet will be started as soon as patient is able to tolerate oral intake. In addition to the diet the patient will receive Reglan to control nausea and promote GI motility, Protonix for gastric acid suppression and oral pancreatic enzymes for digestion support. A daily CBC, metabolic profile, magnesium level, lipase and amylase will be obtained to follow the patient's progress. (3) Uncontrolled type 2 diabetes mellitus Qualifiers: Glycemic state: with hyperglycemia Qualified Code(s): E11.65 - Type 2 diabetes mellitus with hyperglycemia Is this a current diagnosis for this admission?: Yes Plan: The patient's usual diabetic diet and diabetic control regiment will be continued during her hospitalization. She will have before meals and at bedtime Accu-Cheks with sliding scale insulin for control of hyperglycemia and will also have a hypoglycemia protocol in place. Daily metabolic profiles will also be obtained to follow the patient's progress. (4) Bilateral calf pain Is this a current diagnosis for this admission?: Yes Plan: Patient will have a bilateral venous Doppler study performed on her lower extremities as soon as possible. Additionally she will use her pain control noted above to help with the pain associated with her legs. (5) Chronic kidney disease Qualifiers: Chronic kidney disease stage: stage 3 (moderate) Qualified Code(s): N18.3 - Chronic kidney disease, stage 3 (moderate) Is this a current diagnosis for this admission?: Yes Plan: Patient will receive IV fluids and her renal functions will be monitored on a daily basis with a metabolic profile. (6) Hypertension Qualifiers: Hypertension type: essential hypertension Qualified Code(s): I10 - Essential (primary) hypertension Is this a current diagnosis for this admission?: Yes Plan: The patient's current antihypertensive regiment will be continued throughout her hospital course. Her blood pressure be monitored closely and changes will be made to her regimen as required. Hydralazine 20 mg IV every 4 hours will be administered on a as needed basis to maintain a blood pressure less than 160 systolic and less than 100 diastolic. (7) Tobacco dependence Is this a current diagnosis for this admission?: Yes Plan: Smoking cessation is advised and counseled briefly. A nicotine replacement patch is available for the patient's use. - Time Time Spent with patient: 25-34 minutes Smoking Cessation Education: 3 to 10 minutes Medications reviewed and adjusted accordingly: Yes Anticipated discharge: Home - Inpatient Certification Based on my medical assessment, after consideration of the patient's comorbidities, presenting symptoms, or acuity I expect that the services needed warrant INPATIENT care.: Yes I certify that my determination is in accordance with my understanding of Medicare's requirements for reasonable and necessary INPATIENT services [42 CFR 412.3e].: Yes Medical Necessity: Significant Comorbidiites Make Outpatient Treatment Too Risky, Need For IV Fluids, Need for Pain Control, Risk of Complication if Not Cared For in Hospital, Risk of Diagnosis Which Will Require Inpatient Eval/Care/Monitoring
[2018-08-05] MEDS: INSULIN REG, HUMAN 100 UNIT/ML 3 ML VIAL (PYX) SUBCUT PRN ×2 (03:43→17:29)
[2018-08-05] MEDS ORDERED: ONDANSETRON HCL INJ/PF 4 MG/2 ML SDV IV PRN (03:50)
[2018-08-05] MEDS ORDERED: INSULIN REG, HUMAN 100 UNIT/ML 3 ML VIAL IV ONE (04:15)
[2018-08-05] MEDS: ONDANSETRON HCL INJ/PF 4 MG/2 ML SDV IV PRN (04:59)
[2018-08-05] MEDS: HEPARIN SOD (PORCINE) 5,000 UNIT/ML 1 ML SYRINGE SUBCUT SCH ×3 (06:34→21:35)
[2018-08-05] MEDS: DEXTROSE 50%-WATER 25 GM/50 ML DISP.SYRIN IV PRN (08:19)
[2018-08-05] MEDS: PANTOPRAZOLE SODIUM 40 MG TABLET.DR PO SCH ×3 (08:27→17:28)
[2018-08-05] MEDS: SUCRALFATE 1 GM TABLET PO SCH ×5 (08:27→21:32)
[2018-08-05] MEDS: METOCLOPRAMIDE HCL 10 MG TABLET PO SCH ×5 (08:27→21:32)
[2018-08-05] MEDS: LIPASE/PROTEASE/AMYLASE 1 CAP CAPSULE.DR PO SCH ×4 (09:58→17:28)
[2018-08-05] MEDS ORDERED: DOCUSATE SODIUM 100 MG CAPSULE PO SCH (10:00)
[2018-08-05] MEDS ORDERED: PANTOPRAZOLE SODIUM 40 MG TABLET.DR PO SCH (10:00)
[2018-08-05] MEDS: CHLORTHALIDONE 25 MG TABLET PO SCH (10:11)
[2018-08-05] MEDS: DOCUSATE SODIUM 100 MG CAPSULE PO SCH ×2 (10:11→17:28)
[2018-08-05] MEDS: FERROUS SULFATE 325 MG TABLET PO SCH (10:11)
[2018-08-05] MEDS: METOPROLOL TARTRATE 50 MG TABLET PO SCH ×2 (10:11→21:32)
[2018-08-05] MEDS: GABAPENTIN 100 MG CAPSULE PO SCH ×2 (10:11→21:34)
[2018-08-05] MEDS: AMLODIPINE BESYLATE 10 MG TABLET PO SCH (10:11)
[2018-08-05] MEDS: LISINOPRIL 10 MG TABLET PO SCH (10:12)
[2018-08-05 11:29] LABS: HEMATOCRIT 30.9 % (36.0-47.0); MEAN CORPUSCULAR HEMOGLOBIN 27.8 pg (27.0-33.4); MEAN CORPUSCULAR HGB CONC 32.2 g/dL (32.0-36.0); MEAN CORPUSCULAR VOLUME 86 fl (80-97); RED BLOOD COUNT 3.58 10^6/uL (3.72-5.28); WHITE BLOOD COUNT 6.7 10^3/uL (4.0-10.5)
[2018-08-05] MEDS: PROMETHAZINE HCL INJ 25 MG/1 ML VIAL IV PRN ×3 (11:36→21:34)
[2018-08-05] MEDS: NORMAL SALINE 1000 ML 1,000 ML IV PRN (11:38)
[2018-08-05 11:39] LABS: AMYLASE 261 U/L (30-110); ANION GAP 7 (5-19); BLOOD UREA NITROGEN 23 mg/dL (7-20); CALCIUM 9.8 mg/dL (8.4-10.2); CARBON DIOXIDE 26 mmol/L (22-30); CHLORIDE 106 mmol/L (98-107); CHOLESTEROL 252.09 mg/dL (0-200); LIPASE 1075.9 U/L (23-300); POTASSIUM 4.4 mmol/L (3.6-5.0); SODIUM 139.2 mmol/L (137-145); TRIGLYCERIDES 67 mg/dL (<150)
[2018-08-05 11:53] LABS: DIRECT LDL 105 mg/dL (<100)
--- NOTE | 2018-08-05 11:55 | PDOC PROGRESS REPORT ---
Subjective Progress Note for:: 08/05/18 Subjective:: Eating breakfast. She is feeling poorly. She just had a fingerstick of 25 and received dextrose. Reason For Visit: ACUTE ON CHRONIC PANCREATITIS Physical Exam Vital Signs: Temp Pulse Resp BP Pulse Ox 97.7 F 98 16 151/79 H 100 08/05/18 07:00 08/05/18 07:00 08/05/18 07:00 08/05/18 07:00 08/05/18 07:00 Intake & Output 08/04/18 08/05/18 08/06/18 06:59 06:59 06:59 Weight 58.967 kg General appearance: PRESENT: cooperative, mild distress, thin Head exam: PRESENT: atraumatic, normocephalic Ear exam: PRESENT: normal external ear exam Mouth exam: PRESENT: dry mucosa, tongue midline Respiratory exam: PRESENT: clear to auscultation teddy, symmetrical, unlabored. ABSENT: rales, rhonchi, tachypnea, wheezes Cardiovascular exam: PRESENT: +S1, +S2, tachycardia GI/Abdominal exam: PRESENT: normal bowel sounds, soft, tenderness - Especially epigastric area. ABSENT: distended Rectal exam: PRESENT: deferred Extremities exam: ABSENT: joint swelling, pedal edema Musculoskeletal exam: PRESENT: ambulatory, normal inspection Neurological exam: PRESENT: alert, awake, oriented to person, oriented to place, oriented to time, oriented to situation, CN II-XII grossly intact Psychiatric exam: PRESENT: flat affect. ABSENT: agitated, anxious Focused psych exam: ABSENT: delusional, restlessness Results Laboratory Results: 08/04/18 15:45 08/04/18 15:45 08/04/18 08/04/18 08/04/18 15:45 15:45 20:20 WBC 7.3 RBC 3.64 L Hgb 10.2 L Hct 32.0 L MCV 88 MCH 28.1 MCHC 31.9 L RDW 15.1 H Plt Count 373 Seg Neutrophils % 69.7 Lymphocytes % 24.1 Monocytes % 5.0 Eosinophils % 0.5 Basophils % 0.7 Absolute Neutrophils 5.1 Absolute Lymphocytes 1.8 Absolute Monocytes 0.4 Absolute Eosinophils 0.0 Absolute Basophils 0.0 VBG pH 7.31 VBG pCO2 50.5 VBG HCO3 24.6 VBG Base Excess -2.1 Sodium 135.9 L Potassium 5.0 Chloride 100 Carbon Dioxide 25 Anion Gap 11 BUN 30 H Creatinine 1.28 H Est GFR ( Amer) 57 L Est GFR (Non-Af Amer) 47 L Glucose 511 H* Calcium 9.4 Total Bilirubin 0.3 AST 30 ALT 44 Alkaline Phosphatase 131 H Total Protein 6.8 Albumin 3.8 Lipase 5516.6 H 08/04/18 15:45 Troponin I < 0.012 Impressions: Abdomen/Pelvis CT 08/04/18 16:45 IMPRESSION: Chronic pancreatitis with no evidence of acute pancreatitis. Constipation. Assessment and Plan - Diagnosis (1) Epigastric abdominal pain Is this a current diagnosis for this admission?: Yes Plan: Patient will be treated with supportive and symptomatic cares. She will receive IV fluids and her pain will be treated with Dilaudid 1 mg IV every 2 hours on a as needed basis. 08/05/2018-abdominal pain is a result of the acute on chronic pancreatitis. There is likely a lot of scarring. She also has been having nausea and vomiting. As the pancreatitis resolves the pain should decrease. (2) Acute on chronic pancreatitis Is this a current diagnosis for this admission?: Yes Plan: Patient will receive supportive and symptomatic cares as well as IV fluids. A diet will be started as soon as patient is able to tolerate oral intake. In addition to the diet the patient will receive Reglan to control nausea and promote GI motility, Protonix for gastric acid suppression and oral pancreatic enzymes for digestion support. A daily CBC, metabolic profile, magnesium level, lipase and amylase will be obtained to follow the patient's progress. 08/05/2017-the patient still on IV fluids. She is in fact eating breakfast this morning. Awaiting repeat lipase. I will continue IV fluids. (3) Uncontrolled type 2 diabetes mellitus Qualifiers: Glycemic state: with hyperglycemia Qualified Code(s): E11.65 - Type 2 diabetes mellitus with hyperglycemia Is this a current diagnosis for this admission?: Yes Plan: The patient's usual diabetic diet and diabetic control regiment will be continued during her hospitalization. She will have before meals and at bedtime Accu-Cheks with sliding scale insulin for control of hyperglycemia and will also have a hypoglycemia protocol in place. Daily metabolic profiles will also be obtained to follow the patient's progress. 08/05/2018-on admission the patient's glucose was over 500. She has exhibited wide fluctuations in her Accu-Cheks. In fact this morning she was less than 30. See below. The patient is on Lantus and sliding scale. Will need to monitor her Accu-Cheks. If there is still wide variation we will adjust her regimen. Now that she is taking oral diet this may give some stability to her numbers. (4) Bilateral calf pain Is this a current diagnosis for this admission?: Yes Plan: Patient will have a bilateral venous Doppler study performed on her lower extremities as soon as possible. Additionally she will use her pain control noted above to help with the pain associated with her legs. 08/05/2018-bilateral venous Dopplers have been ordered on her legs. Electrolytes are not markedly abnormal. We will continue to monitor. Pain is better today. (5) Hypoglycemia Is this a current diagnosis for this admission?: Yes Plan: 08/05/2018-the patient had a marked good drop in her glucose this morning. Her Accu-Chek was 2125 and the other. She received an entire amp of D50. She is feeling better. We will monitor the Accu-Cheks and as noted above we may need to adjust her regimen. I will wait till she has had several meals before editing her insulin regimen. (6) Nausea & vomiting Qualifiers: Vomiting type: unspecified Vomiting Intractability: non-intractable Qualified Code(s): R11.2 - Nausea with vomiting, unspecified Is this a current diagnosis for this admission?: Yes Plan: 08/05/2018-the patient has Reglan and Zofran. The Zofran is not effective. We will try Phenergan. Hopefully the nausea subsides that she can be consistent with her diet. (7) Chronic kidney disease Qualifiers: Chronic kidney disease stage: stage 3 (moderate) Qualified Code(s): N18.3 - Chronic kidney disease, stage 3 (moderate) Is this a current diagnosis for this admission?: Yes Plan: Patient will receive IV fluids and her renal functions will be monitored on a daily basis with a metabolic profile. 08/05/2018-her serum creatinine at 1.28 is in fact lower than most of her serum creatinine tests over the last 3 to 4 months. With aggressive IV fluid this will even improve. We will continue to monitor renal function as well as her electrolytes and watch for fluid overload. (8) Hypertension Qualifiers: Hypertension type: essential hypertension Qualified Code(s): I10 - Essential (primary) hypertension Is this a current diagnosis for this admission?: Yes Plan: 08/05/2018-she is on chlorthalidone, amlodipine, metoprolol and lisinopril. We will continue to monitor her pressures and adjust her medications accordingly. (9) Tobacco abuse Is this a current diagnosis for this admission?: Yes Plan: 08/05/2018-encourage tobacco cessation. - Time Time Spent with patient: 15-24 minutes Medications reviewed and adjusted accordingly: Yes Anticipated discharge: Home
[2018-08-05 11:56] LABS: FREE T3 5.82 pg/mL (2.77-5.27); FREE T4 (FREE THYROXINE) 1.6 ng/dL (0.78-2.19)
[2018-08-05 11:57] LABS: GLUCOSE 47 mg/dL (75-110)
[2018-08-05 12:00] LABS: PLATELET COUNT 269 10^3/uL (150-450)
[2018-08-05 12:28] LABS: THYROID STIMULATING HORMONE 5.74 uIU/mL (0.47-4.68)
[2018-08-05] MEDS ORDERED: INSULIN GLARGINE,HUM.REC.ANLOG 1,000 UNIT/10 ML VIAL SUBCUT SCH (22:00)
[2018-08-06] MEDS: HYDROMORPHONE HCL INJ/PF 2 MG/ML AMPULE IV PRN ×5 (04:26→22:15)
[2018-08-06] MEDS: PROMETHAZINE HCL INJ 25 MG/1 ML VIAL IV PRN (04:27)
[2018-08-06] MEDS: HEPARIN SOD (PORCINE) 5,000 UNIT/ML 1 ML SYRINGE SUBCUT SCH ×3 (06:19→21:14)
[2018-08-06] MEDS: PANTOPRAZOLE SODIUM 40 MG TABLET.DR PO SCH ×2 (06:19→17:15)
[2018-08-06] MEDS: SUCRALFATE 1 GM TABLET PO SCH ×4 (07:49→21:14)
[2018-08-06] MEDS: LIPASE/PROTEASE/AMYLASE 1 CAP CAPSULE.DR PO SCH ×3 (07:49→17:17)
[2018-08-06] MEDS: METOCLOPRAMIDE HCL 10 MG TABLET PO SCH ×4 (07:49→21:15)
[2018-08-06 08:05] LABS: HEMATOCRIT 26.9 % (36.0-47.0); HEMOGLOBIN 8.9 g/dL (12.0-15.5); MEAN CORPUSCULAR HEMOGLOBIN 28.9 pg (27.0-33.4); MEAN CORPUSCULAR HGB CONC 33.2 g/dL (32.0-36.0); MEAN CORPUSCULAR VOLUME 87 fl (80-97); PLATELET COUNT 281 10^3/uL (150-450); RED BLOOD COUNT 3.09 10^6/uL (3.72-5.28); WHITE BLOOD COUNT 6.1 10^3/uL (4.0-10.5)
[2018-08-06 08:09] LABS: AMYLASE 184 U/L (30-110); ANION GAP 8 (5-19); BLOOD UREA NITROGEN 24 mg/dL (7-20); CALCIUM 9.2 mg/dL (8.4-10.2); CARBON DIOXIDE 21 mmol/L (22-30); CHLORIDE 110 mmol/L (98-107); LIPASE 778.3 U/L (23-300); POTASSIUM 4.5 mmol/L (3.6-5.0); SODIUM 138.5 mmol/L (137-145)
[2018-08-06 08:24] LABS: GLUCOSE 39 mg/dL (75-110)
[2018-08-06] MEDS: NORMAL SALINE 1000 ML 1,000 ML IV PRN ×2 (10:00→17:17)
[2018-08-06] MEDS: LISINOPRIL 10 MG TABLET PO SCH (10:26)
[2018-08-06] MEDS: AMLODIPINE BESYLATE 10 MG TABLET PO SCH (10:26)
[2018-08-06] MEDS: GABAPENTIN 100 MG CAPSULE PO SCH ×2 (10:26→21:14)
[2018-08-06] MEDS: FERROUS SULFATE 325 MG TABLET PO SCH (10:26)
[2018-08-06] MEDS: CHLORTHALIDONE 25 MG TABLET PO SCH (10:27)
[2018-08-06] MEDS: METOPROLOL TARTRATE 50 MG TABLET PO SCH ×2 (10:27→21:14)
[2018-08-06] MEDS: DOCUSATE SODIUM 100 MG CAPSULE PO SCH ×2 (10:27→17:14)
[2018-08-06] MEDS: INSULIN REG, HUMAN 100 UNIT/ML 3 ML VIAL (PYX) SUBCUT PRN ×3 (11:35→22:16)
[2018-08-06 17:41] LABS: APPEARANCE,URINE SLIGHTLY-CLOUDY; BILIRUBIN,URINE NEGATIVE (NEGATIVE); COLOR,URINE YELLOW; GLUCOSE, URINE 50 mg/dL (NEGATIVE); KETONES,URINE NEGATIVE (NEGATIVE); LEUKOCYTE ESTERASE,URINE NEGATIVE (NEGATIVE); NITRITE,URINE NEGATIVE (NEGATIVE); PROTEIN,URINE 100 mg/dL (NEGATIVE); URINE SPECIFIC GRAVITY 1.013; UROBILINOGEN,URINE NEGATIVE mg/dL (<2.0)
--- NOTE | 2018-08-06 20:34 | PDOC PROGRESS REPORT ---
Subjective Progress Note for:: 08/06/18 Subjective:: Patient complains of bilateral flank pain. She also feels cold. Reason For Visit: ACUTE ON CHRONIC PANCREATITIS Physical Exam Vital Signs: Temp Pulse Resp BP Pulse Ox 97.6 F 86 18 130/82 H 97 08/06/18 10:57 08/06/18 10:57 08/06/18 10:57 08/06/18 12:47 08/06/18 10:57 Intake & Output 08/05/18 08/06/18 08/07/18 06:59 06:59 06:59 Intake Total 1712 377 Balance 1712 377 Weight 58.967 kg 65.6 kg General appearance: PRESENT: cooperative, mild distress, well-developed Head exam: PRESENT: atraumatic, normocephalic Eye exam: PRESENT: conjunctiva pink. ABSENT: scleral icterus Ear exam: PRESENT: normal external ear exam Mouth exam: PRESENT: moist, tongue midline Respiratory exam: PRESENT: clear to auscultation teddy, symmetrical, unlabored. ABSENT: accessory muscle use, rales, rhonchi, tachypnea, wheezes Cardiovascular exam: PRESENT: RRR, +S1, +S2, systolic murmur - 2/6 GI/Abdominal exam: PRESENT: normal bowel sounds, soft, other - Patient has bilateral flank pain just above the costal margin. Tender to palpation and percussion.. ABSENT: distended, tenderness Rectal exam: PRESENT: deferred Gentrourinary exam: ABSENT: indwelling catheter Extremities exam: ABSENT: pedal edema Musculoskeletal exam: PRESENT: ambulatory, normal inspection Neurological exam: PRESENT: alert, awake, oriented to person, oriented to place, oriented to time, oriented to situation, CN II-XII grossly intact Psychiatric exam: PRESENT: flat affect. ABSENT: agitated, anxious Focused psych exam: ABSENT: delusional, restlessness Results Laboratory Results: 08/06/18 07:37 08/06/18 07:37 08/06/18 08/06/18 07:37 07:37 WBC 6.1 RBC 3.09 L Hgb 8.9 L Hct 26.9 L MCV 87 MCH 28.9 MCHC 33.2 RDW 15.0 H Plt Count 281 Sodium 138.5 Potassium 4.5 Chloride 110 H Carbon Dioxide 21 L Anion Gap 8 BUN 24 H Creatinine 1.35 H Est GFR ( Amer) 53 L Est GFR (Non-Af Amer) 44 L Glucose 39 L* Calcium 9.2 Magnesium 2.0 Amylase 184 H Lipase 778.3 H 08/04/18 15:45 Troponin I < 0.012 Impressions: Abdomen/Pelvis CT 08/04/18 16:45 IMPRESSION: Chronic pancreatitis with no evidence of acute pancreatitis. Constipation. Assessment and Plan - Diagnosis (1) Epigastric abdominal pain Is this a current diagnosis for this admission?: Yes Plan: Patient will be treated with supportive and symptomatic cares. She will receive IV fluids and her pain will be treated with Dilaudid 1 mg IV every 2 hours on a as needed basis. 08/05/2018-abdominal pain is a result of the acute on chronic pancreatitis. There is likely a lot of scarring. She also has been having nausea and vomi ting. As the pancreatitis resolves the pain should decrease. 08/06/2018-pain is improving as the pancreatitis resolves. (2) Acute on chronic pancreatitis Is this a current diagnosis for this admission?: Yes Plan: Patient will receive supportive and symptomatic cares as well as IV fluids. A diet will be started as soon as patient is able to tolerate oral intake. In addition to the diet the patient will receive Reglan to control nausea and promote GI motility, Protonix for gastric acid suppression and oral pancreatic enzymes for digestion support. A daily CBC, metabolic profile, magnesium level, lipase and amylase will be obtained to follow the patient's progress. 08/05/2017-the patient still on IV fluids. She is in fact eating breakfast this morning. Awaiting repeat lipase. I will continue IV fluids. 08/06/2018-I will decrease the IV fluids. The lipase is down to 700 from 5000. Continue to monitor but not daily. (3) Uncontrolled type 2 diabetes mellitus Qualifiers: Glycemic state: with hyperglycemia Qualified Code(s): E11.65 - Type 2 keon betes mellitus with hyperglycemia Is this a current diagnosis for this admission?: Yes Plan: The patient's usual diabetic diet and diabetic control regiment will be continued during her hospitalization. She will have before meals and at bedtime Accu-Cheks with sliding scale insulin for control of hyperglycemia and will also have a hypoglycemia protocol in place. Daily metabolic profiles will also be obtained to follow the patient's progress. 08/05/2018-on admission the patient's glucose was over 500. She has exhibited wide fluctuations in her Accu-Cheks. In fact this morning she was less than 30. See below. The patient is on Lantus and sliding scale. Will need to monitor her Accu-Cheks. If there is still wide variation we will adjust her regimen. Now that she is taking oral diet this may give some stability to her numbers. 08/06/2018-based on the Accu-Cheks it seems that her biggest problem is morning. I explained to her that we can split the Lantus. Typically patient gets more in the morning and less at night. We will initiate this change and monitor her progress. I think she will do much better with this regimen. (4) Bilateral calf pain Is this a current diagnosis for this admission?: Yes Plan: Patient will have a bilateral venous Doppler study performed on her lower extremities as soon as possible. Additionally she will use her pain control noted above to help with the pain associated with her legs. 08/05/2018-bilateral venous Dopplers have been ordered on her legs. Electrolytes are not markedly abnormal. We will continue to monitor. Pain is better today. 08/06/2018-Doppler studies have not been done. Because her pain is resolving there is no need. (5) Hypoglycemia Is this a current diagnosis for this admission?: Yes Plan: 08/05/2018-the patient had a marked good drop in her glucose this morning. Her Accu-Chek was 2125 and the other. She received an entire amp of D50. She is feeling better. We will monitor the Accu-Cheks and as noted above we may need to adjust her regimen. I will wait till she has had several meals before editing her insulin regimen. 08/06/2018-as noted above we will try split Lantus dosing. This should resolve the hypoglycemia. (6) Nausea & vomiting Qualifiers: Vomiting type: unspecified Vomiting Intractability: non-intractable Qualified Code(s): R11.2 - Nausea with vomiting, unspecified Is this a current diagnosis for this admission?: Yes Plan: 08/05/2018-the patient has Reglan and Zofran. The Zofran is not effective. We will try Phenergan. Hopefully the nausea subsides that she can be consistent with her diet. 08/06/2018-much improved with resolving pancreatitis (7) Chronic kidney disease Qualifiers: Chronic kidney disease stage: stage 3 (moderate) Qualified Code(s): N18.3 - Chronic kidney disease, stage 3 (moderate) Is this a current diagnosis for this admission?: Yes Plan: Patient will receive IV fluids and her renal functions will be monitored on a daily basis with a metabolic profile. 08/05/2018-her serum creatinine at 1.28 is in fact lower than most of her serum creatinine tests over the last 3 to 4 months. With aggressive IV fluid this will even improve. We will continue to monitor renal function as well as her electrolytes and watch for fluid overload. 08/06/2018-the serum creatinine is up slightly from yesterday but still well within her baseline. I have discontinued the IV fluids. I have encouraged oral fluids. Her serum creatinine may likely bump a small amount again. We will continue to monitor. (8) Hypertension Qualifiers: Hypertension type: essential hypertension Qualified Code(s): I10 - Essential (primary) hypertension Is this a current diagnosis for this admission?: Yes Plan: 08/05/2018-she is on chlorthalidone, amlodipine, metoprolol and lisinopril. We will continue to monitor her pressures and adjust her medications accordingly. 08/06/2018-current regimen appears appropriate. Good blood pressure control. No changes. (9) Tobacco abuse Is this a current diagnosis for this admission?: Yes Plan: 08/05/2018-encourage tobacco cessation. 08/06/2018-nicotine patch available as needed (10) Flank pain Is this a current diagnosis for this admission?: Yes Plan: 08/06/2018-I have ordered a urinalysis. It is unlikely to have bilateral flank pain with a cystitis and pyelonephritis is usually not bilateral. Some of this discomfort could be from nausea and vomiting that she experienced early in her hospitalization. We will review the urinalysis. Analgesia is available. - Time Time Spent with patient: 25-34 minutes Medications reviewed and adjusted accordingly: Yes Anticipated discharge: Home
[2018-08-06] MEDS: INSULIN GLARGINE,HUM.REC.ANLOG 1,000 UNIT/10 ML VIAL SUBCUT SCH (22:17)
[2018-08-07] MEDS: ONDANSETRON HCL INJ/PF 4 MG/2 ML SDV IV PRN (03:53)
[2018-08-07] MEDS: HYDROMORPHONE HCL INJ/PF 2 MG/ML AMPULE IV PRN ×4 (03:54→19:47)
[2018-08-07] MEDS: PANTOPRAZOLE SODIUM 40 MG TABLET.DR PO SCH ×2 (05:52→17:05)
[2018-08-07] MEDS: HEPARIN SOD (PORCINE) 5,000 UNIT/ML 1 ML SYRINGE SUBCUT SCH ×3 (05:53→21:55)
[2018-08-07] MEDS: LIPASE/PROTEASE/AMYLASE 1 CAP CAPSULE.DR PO SCH ×3 (07:53→17:05)
[2018-08-07] MEDS: METOCLOPRAMIDE HCL 10 MG TABLET PO SCH ×4 (07:53→21:56)
[2018-08-07] MEDS: SUCRALFATE 1 GM TABLET PO SCH ×4 (07:53→21:58)
[2018-08-07] MEDS: AMLODIPINE BESYLATE 10 MG TABLET PO SCH (09:07)
[2018-08-07] MEDS: DOCUSATE SODIUM 100 MG CAPSULE PO SCH ×2 (09:07→17:08)
[2018-08-07] MEDS: GABAPENTIN 100 MG CAPSULE PO SCH ×2 (09:07→21:56)
[2018-08-07] MEDS: LISINOPRIL 10 MG TABLET PO SCH (09:07)
[2018-08-07] MEDS: METOPROLOL TARTRATE 50 MG TABLET PO SCH ×2 (09:07→21:56)
[2018-08-07] MEDS: FERROUS SULFATE 325 MG TABLET PO SCH (09:07)
[2018-08-07] MEDS: CHLORTHALIDONE 25 MG TABLET PO SCH (09:07)
[2018-08-07] MEDS: NORMAL SALINE 1000 ML 1,000 ML IV PRN ×2 (09:11→23:16)
[2018-08-07] MEDS: INSULIN GLARGINE,HUM.REC.ANLOG 1,000 UNIT/10 ML VIAL SUBCUT SCH ×2 (10:59→21:57)
[2018-08-07] MEDS: PROMETHAZINE HCL INJ 25 MG/1 ML VIAL IV PRN (14:40)
[2018-08-07] MEDS: INSULIN LISPRO 100 UNIT/ML 3 ML VIAL SUBCUT SCH ×2 (17:05→21:49)
--- NOTE | 2018-08-07 20:38 | PDOC PROGRESS REPORT ---
Subjective Progress Note for:: 08/07/18 Subjective:: The patient is actually sitting up in bed. She appears more comfortable today than on any of the previous days. She still complains of some flank discomfort. Reason For Visit: ACUTE ON CHRONIC PANCREATITIS Physical Exam Vital Signs: Temp Pulse Resp BP Pulse Ox 98.8 F 83 16 162/96 H 99 08/07/18 11:25 08/07/18 11:28 08/07/18 11:28 08/07/18 11:25 08/07/18 11:28 Intake & Output 08/06/18 08/07/18 08/08/18 06:59 06:59 06:59 Intake Total 1712 989 795 Output Total 300 Balance 1712 689 795 Weight 65.6 kg 69.8 kg General appearance: PRESENT: no acute distress, cooperative, well-developed Head exam: PRESENT: atraumatic, normocephalic Ear exam: PRESENT: normal external ear exam Mouth exam: PRESENT: moist, tongue midline Neck exam: ABSENT: carotid bruit, JVD, lymphadenopathy Respiratory exam: PRESENT: clear to auscultation teddy, symmetrical, unlabored. ABSENT: accessory muscle use, rales, rhonchi, tachypnea, wheezes Cardiovascular exam: PRESENT: RRR, +S1, +S2, systolic murmur - 3/6 GI/Abdominal exam: PRESENT: normal bowel sounds, soft, tenderness - Still slight tenderness towards the flanks.. ABSENT: distended Rectal exam: PRESENT: deferred Gentrourinary exam: ABSENT: indwelling catheter Extremities exam: ABSENT: calf tenderness, clubbing, pedal edema Musculoskeletal exam: PRESENT: ambulatory, normal inspection Neurological exam: PRESENT: alert, awake, oriented to person, oriented to place, oriented to time, oriented to situation, CN II-XII grossly intact Psychiatric exam: PRESENT: appropriate affect, normal mood. ABSENT: agitated, anxious Focused psych exam: ABSENT: delusional, restlessness Skin exam: PRESENT: dry, warm. ABSENT: rash Results Laboratory Results: 08/06/18 07:37 08/06/18 07:37 08/06/18 17:20 Urine Color YELLOW Urine Appearance SLIGHTLY-CLOUDY Urine pH 5.0 Ur Specific [place] 1.013 Urine Protein 100 H Urine Glucose (UA) 50 H Urine Ketones NEGATIVE Urine Blood NEGATIVE Urine Nitrite NEGATIVE Ur Leukocyte Esterase NEGATIVE Urine WBC (Auto) 1 Urine RBC (Auto) 0 08/04/18 15:45 Troponin I < 0.012 Impressions: Abdomen/Pelvis CT 08/04/18 16:45 IMPRESSION: Chronic pancreatitis with no evidence of acute pancreatitis. Constipation. Assessment and Plan - Diagnosis (1) Epigastric abdominal pain Is this a current diagnosis for this admission?: Yes Plan: Patient will be treated with supportive and symptomatic cares. She will receive IV fluids and her pain will be treated with Dilaudid 1 mg IV every 2 hours on a as needed basis. 08/05/2018-abdominal pain is a result of the acute on chronic pancreatitis. There is likely a lot of scarring. She also has been having nausea and vomiting. As the pancreatitis resolves the pain should decrease. 08/06/2018-pain is improving as the pancreatitis resolves. 08/07/2018-the patient is in fact on Protonix and Carafate. Epigastric pain secondary to pancreatitis. Pancreatitis is resolving. (2) Acute on chronic pancreatitis Is this a current diagnosis for this admission?: Yes Plan: Patient will receive supportive and symptomatic cares as well as IV fluids. A diet will be started as soon as patient is able to tolerate oral intake. In addition to the diet the patient will receive Reglan to control nausea and p romote GI motility, Protonix for gastric acid suppression and oral pancreatic enzymes for digestion support. A daily CBC, metabolic profile, magnesium level, lipase and amylase will be obtained to follow the patient's progress. 08/05/2017-the patient still on IV fluids. She is in fact eating breakfast this morning. Awaiting repeat lipase. I will continue IV fluids. 08/06/2018-I will decrease the IV fluids. The lipase is down to 700 from 5000. Continue to monitor but not daily. 08/07/2018-the patient did not have blood work today since she is a very difficult blood draw. She is also on pancreatic enzyme replacement. This will likely need to be adjusted if required. We may order stool for fecal fat. She should follow-up with gastroenterology as an outpatient. (3) Uncontrolled type 2 diabetes mellitus Qualifiers: Glycemic state: with hyperglycemia Qualified Code(s): E11.65 - Type 2 diabetes mellitus with hyperglycemia Is this a current diagnosis for this admission?: Yes Plan: The patient's usual diabetic diet and diabetic control regiment will be kandy nued during her hospitalization. She will have before meals and at bedtime Accu-Cheks with sliding scale insulin for control of hyperglycemia and will also have a hypoglycemia protocol in place. Daily metabolic profiles will also be obtained to follow the patient's progress. 08/05/2018-on admission the patient's glucose was over 500. She has exhibited wide fluctuations in her Accu-Cheks. In fact this morning she was less than 30. See below. The patient is on Lantus and sliding scale. Will need to monitor her Accu-Cheks. If there is still wide variation we will adjust her regimen. Now that she is taking oral diet this may give some stability to her numbers. 08/06/2018-based on the Accu-Cheks it seems that her biggest problem is morning. I explained to her that we can split the Lantus. Typically patient gets more in the morning and less at night. We will initiate this change and monitor her progress. I think she will do much better with this regimen. August 07, 2018-the patient is still having hypoglycemic episodes. She was not as low today she was yesterday. I have introduced split dose Lantus. I will change her sliding scale from regular insulin to Humalog as she may be having overlap. It would be best to provide a sliding scale for her to follow on discharge. (4) Bilateral calf pain Is this a current diagnosis for this admission?: Yes Plan: Patient will have a bilateral venous Doppler study performed on her lower extremities as soon as possible. Additionally she will use her pain control no shirin above to help with the pain associated with her legs. 08/05/2018-bilateral venous Dopplers have been ordered on her legs. Electrolytes are not markedly abnormal. We will continue to monitor. Pain is better today. 08/06/2018-Doppler studies have not been done. Because her pain is resolving th ere is no need. 08/07/2018-no further discomfort. (5) Hypoglycemia Is this a current diagnosis for this admission?: Yes Plan: 08/05/2018-the patient had a marked good drop in her glucose this morning. Her Accu-Chek was 2125 and the other. She received an entire amp of D50. She is feeling better. We will monitor the Accu-Cheks and as noted above we may need to adjust her regimen. I will wait till she has had several meals before editing her insulin regimen. 08/06/2018-as noted above we will try split Lantus dosing. This should resolve the hypoglycemia. 08/07/2018-as noted above in addition to the split Lantus dosing I am going to change her sliding scale to Humalog. If she does well today then consider discharge tomorrow. (6) Nausea & vomiting Qualifiers: Vomiting type: unspecified Vomiting Intractability: non-intractable Qualified Code(s): R11.2 - Nausea with vomiting, unspecified Is this a current diagnosis for this admission?: Yes Plan: 08/05/2018-the patient has Reglan and Zofran. The Zofran is not effective. We will try Phenergan. Hopefully the nausea subsides that she can be consistent with her diet. 08/06/2018-much improved with resolving pancreatitis 08/07/2018-resolved. It could also be related to pancreatic insufficiency. (7) Chronic kidney disease Qualifiers: Chronic kidney disease stage: stage 3 (moderate) Qualified Code(s): N18.3 - Chronic kidney disease, stage 3 (moderate) Is this a current diagnosis for this admission?: Yes Plan: Patient will receive IV fluids and her renal functions will be monitored on a d aily basis with a metabolic profile. 08/05/2018-her serum creatinine at 1.28 is in fact lower than most of her serum creatinine tests over the last 3 to 4 months. With aggressive IV fluid this will even improve. We will continue to monitor renal function as well as her electrolytes and watch for fluid overload. 08/06/2018-the serum creatinine is up slightly from yesterday but still well within her baseline. I have discontinued the IV fluids. I have encouraged oral fluids. Her serum creatinine may likely bump a small amount again. We will continue to monitor. 08/07/2018-restarted some IV fluids. Her serum creatinine is near her baseline. We will continue to monitor intake and output as well as blood pressure. (8) Hypertension Qualifiers: Hypertension type: essential hypertension Qualified Code(s): I10 - Essential (primary) hypertension Is this a current diagnosis for this admission?: Yes Plan: 08/05/2018-she is on chlorthalidone, amlodipine, metoprolol and lisinopril. We will continue to monitor her pressures and adjust her medications accordingly. 08/06/2018-current regimen appears appropriate. Good blood pressure control. No changes. 08/07/2018-reasonable blood pressure control. Continue current regimen. (9) Tobacco abuse Is this a current diagnosis for this admission?: Yes Plan: 08/05/2018-encourage tobacco cessation. 08/06/2018-nicotine patch available as needed (10) Flank pain Is this a current diagnosis for this admission?: Yes Plan: 08/06/2018-I have ordered a urinalysis. It is unlikely to have bilateral flank pain with a cystitis and pyelonephritis is usually not bilateral. Some of this discomfort could be from nausea and vomiting that she experienced early in her hospitalization. We will review the urinalysis. Analgesia is available. 08/07/2018-patient reports the pain is better. Urinalysis was negative for infection. - Time Time Spent with patient: 15-24 minutes Medications reviewed and adjusted accordingly: Yes Anticipated discharge: Home Within: within 48 hours - Plan Summary Plan Summary: If the split dose Lantus and change to Humalog sliding scale is effective. The patient should be able to discharge tomorrow. She would need a sliding scale to go by when she is home.
[2018-08-08] MEDS: HYDROMORPHONE HCL INJ/PF 2 MG/ML AMPULE IV PRN ×8 (00:47→21:25)
[2018-08-08] MEDS: ONDANSETRON HCL INJ/PF 4 MG/2 ML SDV IV PRN ×2 (00:57→21:36)
[2018-08-08] MEDS: HEPARIN SOD (PORCINE) 5,000 UNIT/ML 1 ML SYRINGE SUBCUT SCH ×3 (06:31→21:25)
[2018-08-08] MEDS: PANTOPRAZOLE SODIUM 40 MG TABLET.DR PO SCH ×2 (06:31→17:20)
[2018-08-08 07:03] LABS: HEMOGLOBIN 8.2 g/dL (12.0-15.5); MEAN CORPUSCULAR HEMOGLOBIN 28.7 pg (27.0-33.4); MEAN CORPUSCULAR VOLUME 87 fl (80-97); PLATELET COUNT 234 10^3/uL (150-450); RED BLOOD COUNT 2.88 10^6/uL (3.72-5.28); RED CELL DISTRIBUTION WIDTH 14.9 % (11.5-14.0); WHITE BLOOD COUNT 6.5 10^3/uL (4.0-10.5)
[2018-08-08 07:29] LABS: ANION GAP 5 (5-19); BLOOD UREA NITROGEN 22 mg/dL (7-20); CALCIUM 9.1 mg/dL (8.4-10.2); CARBON DIOXIDE 23 mmol/L (22-30); CHLORIDE 110 mmol/L (98-107); GLUCOSE 259 mg/dL (75-110); POTASSIUM 4.9 mmol/L (3.6-5.0); SODIUM 138.1 mmol/L (137-145)
[2018-08-08 07:46] LABS: LIPASE 2227.7 U/L (23-300)
[2018-08-08] MEDS: INSULIN LISPRO 100 UNIT/ML 3 ML VIAL SUBCUT SCH ×4 (07:59→21:38)
[2018-08-08] MEDS: SUCRALFATE 1 GM TABLET PO SCH ×4 (07:59→21:25)
[2018-08-08] MEDS: METOCLOPRAMIDE HCL 10 MG TABLET PO SCH ×4 (07:59→21:26)
[2018-08-08] MEDS: LIPASE/PROTEASE/AMYLASE 1 CAP CAPSULE.DR PO SCH ×3 (08:00→17:25)
[2018-08-08] MEDS: NORMAL SALINE 1000 ML 1,000 ML IV PRN ×3 (08:18→19:49)
--- NOTE | 2018-08-08 09:31 | XCELERA REPORT ---
[address] [facility] [address] Lower Extremity Venous Evaluation Procedure: Color flow and duplex imaging bilaterally of the veins of the lower extremities as well as the Common Femoral veins. Right Sided Venous Evaluation Normal vessel filling wall to wall, compression and augmentation as well as Colour flow down to the infrageniculate veins. Left Sided Venous Evaluation Normal vessel filling wall to wall, compression and augmentation as well as Colour flow down to the infrageniculate veins. Interpretation Summary No duplex evidence of DVT or obstruction in the bilateral lower extremities. Name: JJ HOFFMAN Age: 37 yrs Gender: Female : 1980 Patient Status: Inpatient Patient Location: [address] [place] [address] Study Date: 08/07/2018 02:03 PM Reason For Study: Bilateral Calf pain Ordering Physician: ALEXEY AVILES Performed By: Kassidy Ellis : ALEXEY AVILES > Alen Nava
[2018-08-08] MEDS: LISINOPRIL 10 MG TABLET PO SCH (11:14)
[2018-08-08] MEDS: GABAPENTIN 100 MG CAPSULE PO SCH ×2 (11:14→21:26)
[2018-08-08] MEDS: AMLODIPINE BESYLATE 10 MG TABLET PO SCH (11:14)
[2018-08-08] MEDS: DOCUSATE SODIUM 100 MG CAPSULE PO SCH ×2 (11:15→17:20)
[2018-08-08] MEDS: METOPROLOL TARTRATE 50 MG TABLET PO SCH ×2 (11:15→21:25)
[2018-08-08] MEDS: FERROUS SULFATE 325 MG TABLET PO SCH (11:15)
[2018-08-08] MEDS: CHLORTHALIDONE 25 MG TABLET PO SCH (11:19)
[2018-08-08] MEDS: INSULIN GLARGINE,HUM.REC.ANLOG 1,000 UNIT/10 ML VIAL SUBCUT SCH ×2 (11:21→21:38)
[2018-08-08] MEDS: DEXTROSE 50%-WATER 25 GM/50 ML DISP.SYRIN IV PRN (13:03)
--- NOTE | 2018-08-08 17:36 | PDOC PROGRESS REPORT ---
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 Patient has underlying chronic pancreatitis. Her initial blood work shows markedly elevated lipase level of 5516.6. With impression of acute on chronic pancreatitis patient admitted to the hospital and she has been managed with bowel rest hydration and pain control. Her latest lipase level is 2227.7. Patient still complains of abdominal pain. This morning also patient has an episode of hypoglycemia. Her Lantus dose has been adjusted. Reason For Visit: ACUTE ON CHRONIC PANCREATITIS Physical Exam Vital Signs: Temp Pulse Resp BP Pulse Ox 98.7 F 84 16 153/83 H 97 08/08/18 15:28 08/08/18 15:28 08/08/18 15:28 08/08/18 15:28 08/08/18 15:28 Intake & Output 08/07/18 08/08/18 08/09/18 06:59 06:59 06:59 Intake Total 989 1690 1263 Output Total 300 Balance 689 1690 1263 Weight 69.8 kg 70.4 kg General appearance: PRESENT: no acute distress Head exam: PRESENT: atraumatic Mouth exam: PRESENT: dry mucosa Respiratory exam: PRESENT: clear to auscultation teddy. ABSENT: rales, rhonchi, wheezes Cardiovascular exam: PRESENT: RRR. ABSENT: diastolic murmur, rubs, systolic murmur GI/Abdominal exam: PRESENT: tenderness Neurological exam: PRESENT: alert, awake, oriented to person, oriented to place, oriented to time, oriented to situation Results Laboratory Results: 08/08/18 06:50 08/08/18 06:50 08/08/18 08/08/18 06:50 06:50 WBC 6.5 RBC 2.88 L Hgb 8.2 L Hct 25.0 L MCV 87 MCH 28.7 MCHC 33.0 RDW 14.9 H Plt Count 234 Sodium 138.1 Potassium 4.9 Chloride 110 H Carbon Dioxide 23 Anion Gap 5 BUN 22 H Creatinine 1.35 H Est GFR ( Amer) 53 L Est GFR (Non-Af Amer) 44 L Glucose 259 H Calcium 9.1 Lipase 2227.7 H 08/06/18 17:20 Clean Catch Midstream Urine Culture - Final Mixed Urogenital [place] 08/04/18 15:45 Troponin I < 0.012 Impressions: Abdomen/Pelvis CT 08/04/18 16:45 IMPRESSION: Chronic pancreatitis with no evidence of acute pancreatitis. Constipation. Assessment and Plan - Diagnosis (1) Acute on chronic pancreatitis Is this a current diagnosis for this admission?: Yes Plan: Based on markedly elevated lipase level. Her lipase is trending down. 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 She is everyday smoker and the smoking might trigger her pancreatitis (2) Uncontrolled diabetes mellitus Qualifiers: Diabetes mellitus type: type 1 Is this a current diagnosis for this admission?: Yes Plan: Patient is not compliant with her medication and diet. I will reinforce diabetic education. (3) Hypertension Qualifiers: Hypertension type: essential hypertension Qualified Code(s): I10 - Essential (primary) hypertension Is this a current diagnosis for this admission?: Yes Plan: Revise in the chest or medications. (4) CKD (chronic kidney disease) Qualifiers: Chronic kidney disease stage: stage 3 (moderate) Qualified Code(s): N18.3 - Chronic kidney disease, stage 3 (moderate) Is this a current diagnosis for this admission?: Yes Plan: I will avoid nephrotoxic agents. (5) Tobacco dependence Is this a current diagnosis for this admission?: Yes Plan: Counseled and encouraged to quit smoking.
[2018-08-08] MEDS: HYDRALAZINE HCL INJ/PF 20 MG/1 ML SDV IV PRN (19:45)
[2018-08-09] MEDS: NORMAL SALINE 1000 ML 1,000 ML IV PRN ×2 (00:42→07:41)
[2018-08-09] MEDS: HYDROMORPHONE HCL INJ/PF 2 MG/ML AMPULE IV PRN ×4 (00:42→11:31)
[2018-08-09] MEDS: PROMETHAZINE HCL INJ 25 MG/1 ML VIAL IV PRN ×2 (03:12→07:42)
[2018-08-09] MEDS: HEPARIN SOD (PORCINE) 5,000 UNIT/ML 1 ML SYRINGE SUBCUT SCH (05:31)
[2018-08-09] MEDS: PANTOPRAZOLE SODIUM 40 MG TABLET.DR PO SCH (05:31)
[2018-08-09] MEDS: METOCLOPRAMIDE HCL 10 MG TABLET PO SCH ×2 (08:22→11:02)
[2018-08-09] MEDS: SUCRALFATE 1 GM TABLET PO SCH ×2 (08:22→11:01)
[2018-08-09] MEDS: LIPASE/PROTEASE/AMYLASE 1 CAP CAPSULE.DR PO SCH ×2 (08:22→12:11)
[2018-08-09] MEDS: INSULIN LISPRO 100 UNIT/ML 3 ML VIAL SUBCUT SCH ×2 (08:23→11:25)
[2018-08-09] MEDS: AMLODIPINE BESYLATE 10 MG TABLET PO SCH (11:01)
[2018-08-09] MEDS: METOPROLOL TARTRATE 50 MG TABLET PO SCH (11:01)
[2018-08-09] MEDS: DOCUSATE SODIUM 100 MG CAPSULE PO SCH (11:01)
[2018-08-09] MEDS: GABAPENTIN 100 MG CAPSULE PO SCH (11:02)
[2018-08-09] MEDS: LISINOPRIL 10 MG TABLET PO SCH (11:02)
[2018-08-09] MEDS: CHLORTHALIDONE 25 MG TABLET PO SCH (11:03)
[2018-08-09] MEDS: FERROUS SULFATE 325 MG TABLET PO SCH (11:04)
--- NOTE | 2018-08-09 11:15 | PDOC DISCHARGE SUMMARY ---
General - Admit/Disc Date/PCP Admission Date/Primary Care Provider: 08/04/18 20:34 CYNTHIAWendy ZACARIASROSIO BLANCO-Claudine Discharge Date: 08/09/18 - Discharge Diagnosis (1) Acute on chronic pancreatitis Is this a current diagnosis for this admission?: Yes (2) Uncontrolled diabetes mellitus Is this a current diagnosis for this admission?: Yes (3) Hypertension Is this a current diagnosis for this admission?: Yes (4) CKD (chronic kidney disease) Is this a current diagnosis for this admission?: Yes (5) Tobacco dependence Is this a current diagnosis for this admission?: Yes - Additional Information Resuscitation Status: Full Code Home Medications: Amlodipine Besylate [Norvasc 10 mg Tablet] 10 mg PO DAILY 08/04/18 Chlorthalidone [Hygroton 25 mg Tablet] 25 mg PO DAILY 08/04/18 Docusate Sodium [Colace 100 mg Capsule] 100 mg PO BID 08/04/18 Famotidine [Pepcid 20 mg Tablet] 20 mg PO Q12 08/04/18 Ferrous Sulfate [Feosol 325 mg Tablet] 325 mg PO DAILY 08/04/18 Gabapentin [Neurontin 100 mg Capsule] 100 mg PO Q12 08/04/18 Insulin Aspart [Novolog Insulin 100 Unit/1 ml 10 ml] 10 unit SQ AC 08/04/18 Insulin Glargine,Hum.rec.anlog [Lantus Insulin 100 Unit/1 ml 10 ml] 30 unit SUBCUT QHS 08/04/18 Lisinopril [Prinivil 40 mg Tablet] 40 mg PO DAILY 08/04/18 Metoprolol Tartrate [Lopressor 50 mg Tablet] 50 mg PO Q12 08/04/18 Pantoprazole Sodium [Protonix [address] Tablet] 40 mg PO DAILY 08/04/18 History of Present Illness History of Present Illness: JJ HOFFMAN is a 37 year old female who presented to the emergency room with acute abdominal pain. She admits the gradual but rapidly progressing onset of acute pain in her upper abdomen beginning on the morning of admission. She describes her pain as a constant, severe, sharp gripping deep pain in her upper abdomen radiating through to her back. Her pain was accompanied by hypoglycemia and was worsened after eating. She denies other associated or accompanying symptoms. She admits prior similar episodes associated with acute exacerbations of chronic recurrent alcoholic pancreatitis. She has not identified any other aggravating or ameliorating factors for her abdominal pain. In the emergency room she was found to have a low blood sugar and a lipase of 5000 with an abdom inal and pelvic CT scan confirmatory for evidence of acute pancreatitis. She was subsequently admitted to the hospital for further evaluation and treatment. 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 Patient has underlying chronic pancreatitis. Her initial blood work shows markedly elevated lipase level of 5516.6. With impression of acute on chronic pancreatitis patient admitted to the hospital and she has been managed with bowel rest hydration and pain control. Her latest lipase level is 2227.7. Patient still complains of abdominal pain. This morning also patient has an episode of hypoglycemia. Her Lantus dose has been adjusted. 08/09/2018: This morning patient seen resting in bed comfortably. She is not in pain or distress her lipase markedly reduced from 5000 at admission now 406. Patient encouraged and counseled to quit smoking which also trigger her epigastric pain. I will continue all her home medication and I will adjust the dose of her Lantus. Patient advised to have a follow-up with her primary care physician in 1 week. Physical Exam Vital Signs: Temp Pulse Resp BP Pulse Ox 99.2 F 92 17 148/84 H 99 08/09/18 07:16 08/09/18 07:16 08/09/18 07:16 08/09/18 07:16 08/09/18 07:16 Intake & Output 08/08/18 08/09/18 08/10/18 06:59 06:59 06:59 Intake Total 1690 5041 Balance 1690 5041 Weight 70.4 kg 71.3 kg General appearance: PRESENT: no acute distress Head exam: PRESENT: atraumatic Eye exam: PRESENT: conjunctiva pink Mouth exam: PRESENT: moist Neck exam: ABSENT: carotid bruit, JVD, lymphadenopathy, thyromegaly Respiratory exam: PRESENT: clear to auscultation teddy. ABSENT: rales, rhonchi, wheezes Cardiovascular exam: PRESENT: RRR. ABSENT: diastolic murmur, rubs, systolic murmur GI/Abdominal exam: PRESENT: normal bowel sounds, soft. ABSENT: distended, guarding, mass, organolmegaly, rebound, tenderness Neurological exam: PRESENT: alert, awake, oriented to person, oriented to place, oriented to time, oriented to situation Results Laboratory Results: 08/08/18 06:50 08/08/18 06:50 08/09/18 06:54 Lipase 406.5 H 08/06/18 17:20 Clean Catch Midstream Urine Culture - Final Mixed Urogenital [place] 08/04/18 15:45 Troponin I < 0.012 Impressions: Abdomen/Pelvis CT 08/04/18 16:45 IMPRESSION: Chronic pancreatitis with no evidence of acute pancreatitis. Constipation. Qualifiers - * PATIENT BEING DISCHARGED WITH ANY OF THE FOLLOWING DIAGNOSIS: No Acute Heart Failure - Is this a Heart Failure Patient?: No
[2018-08-09] MEDS: INSULIN GLARGINE,HUM.REC.ANLOG 1,000 UNIT/10 ML VIAL SUBCUT SCH (11:29)
[2018-08-09 13:14] VITALS: BP 154/85
== END 2018-08-09 13:35 | disposition home or self-care (01) | DRG 440 ==
LOC: ER 11:28 → EH 20:34 → 5 21:40
PROVIDERS: ADMIT Emergency Medicine; ATTEND Emergency Medicine
DX: K85.20 Alcohol induced acute pancreatitis without necrosis or infection (principal); K86.0 Alcohol-induced chronic pancreatitis; E78.5 Hyperlipidemia, unspecified; I12.9 Hypertensive chronic kidney disease with stage 1 through stage 4 chronic kidney disease, or unspecified chronic kidney disease; E11.22 Type 2 diabetes mellitus with diabetic chronic kidney disease; N18.3 Chronic kidney disease, stage 3 (moderate); E11.65 Type 2 diabetes mellitus with hyperglycemia; F10.20 Alcohol dependence, uncomplicated; F17.200 Nicotine dependence, unspecified, uncomplicated; M79.662 Pain in left lower leg; M79.661 Pain in right lower leg; E11.649 Type 2 diabetes mellitus with hypoglycemia without coma; Z79.84 Long term (current) use of oral hypoglycemic drugs; Z88.6 Allergy status to analgesic agent; Z87.11 Personal history of peptic ulcer disease; Z79.899 Other long term (current) drug therapy
CPT/HCPCS: 36415; 74177; 80048; 80053; 80061; 81001; 82150; 82803; 82962; 83036; 83690; 83735; 84439; 84443; 84481; 84484; 85025; 85027; 85610; 85730; 87040; 87086; 93970; 96374; 96375; 96376; 99285; J0360; J1170; J1644; J1815; J2405; J2550; J3490; J7030; S0164

== ENCOUNTER 2018-08-16 09:43 | Inpatient (IN) | payer MEDICAID ==
[2018-08-16] MEDS ORDERED: ONDANSETRON HCL INJ/PF 4 MG/2 ML SDV IV ONE (10:48)
[2018-08-16] MEDS ORDERED: HYDROMORPHONE HCL INJ/PF 2 MG/ML AMPULE IV ONE (10:48)
--- NOTE | 2018-08-16 10:58 | ER Document Report ---
ED GI/ - General Chief Complaint: Abdominal Pain Stated Complaint: ABDOMINAL PAIN Time Seen by Provider: 08/16/18 10:46 Primary Care Provider: RONALD BARKER FNP-C [Primary Care Provider] - Follow up as needed Notes: Patient is complaining of severe pain in the upper, epigastric region of her abdomen which started about 7 PM last night. She has a history of chronic recurrent pancreatitis, initially due to alcohol, but the patient says she is has not had any alcohol in about 7 years. She says that she is just subject to these episodes occurring for no reason. She said that she is vomited 4 or 5 times since the onset of the pain. No change in bowels. Has been unable to take her medications. She is an insulin-dependent diabetic and a hypertensive on medications. Patient has a history of COPD. Is a cigarette smoker. History of partial hysterectomy and x3. History of kidney disease. TRAVEL OUTSIDE OF THE [place] IN LAST 30 DAYS: No - Related Data Allergies/Adverse Reactions: hydrocodone [From [place]] Allergy (Verified 08/16/18 13:58) morphine Allergy (Verified 08/16/18 13:58) Past Medical History - Social History Smoking Status: Current Every Day Smoker Frequency of alcohol use: None Drug Abuse: Marijuana Family History: Reviewed & Not Pertinent, DM, Hypertension Patient has suicidal ideation: No Patient has homicidal ideation: No - Past Medical History Cardiac Medical History: Reports: Hx Hypercholesterolemia, Hx Hypertension Pulmonary Medical History: Reports: Hx COPD Neurological Medical History: Reports: Hx Seizures Endocrine Medical History: Reports: Hx Diabetes Mellitus Type 1, Hx Diabetes Yasmine litus Type 2. Denies: Hx Hyperthyroidism, Hx Hypothyroidism Renal/ Medical History: Reports: Hx Renal Insufficiency. Denies: Hx End Stage Renal Disease, Hx Peritoneal Dialysis GI Medical History: Reports: Hx Pancreatitis Infectious Medical History: Denies: Hx Hepatitis Past Surgical History: Reports: Hx Section - x3, Hx Hysterectomy Review of Systems - Review of Systems Notes: REVIEW OF SYSTEMS: CONSTITUTIONAL : Denies fever. EENT: Denies eye, ear, nose or mouth or throat pain or other symptoms. CARDIOVASCULAR: Denies chest pain. RESPIRATORY: Denies cough, chest congestion, or shortness of breath. GASTROINTESTINAL: See HPI. GENITOURINARY: Denies difficulty or painful urinating, urinary frequency, blood in urine. MUSCULOSKELETAL: Denies back or neck pain. Denies joint pain or swelling. SKIN: Denies rash or skin lesions. NEUROLOGICAL: Denies LOC or altered mental status. Denies headache. Denies sensory loss or motor deficits. ALL OTHER SYSTEMS REVIEWED AND NEGATIVE. Physical Exam - Vital signs Vitals: Temp Pulse Resp BP Pulse Ox 97.9 F 101 H 20 179/121 H 99 08/16/18 09:46 08/16/18 09:46 08/16/18 09:46 08/16/18 09:46 08/16/18 09:46 Interpretation: Normal, Hypertensive - Moderate - Notes Notes: PHYSICAL EXAMINATION: GENERAL: Tearful and rolling about in the stretcher from pain. HEAD: Atraumatic, normocephalic. EYES: Pupils equal round and reactive to light, extraocular movements intact. ENT: oropharynx clear without exudates. Moist mucous membranes. NECK: Normal range of motion, supple. LUNGS: Breath sounds clear and equal bilaterally. HEART: Regular rate and rhythm without murmurs. ABDOMEN: Soft, very tender in the epigastrium with some guarding. No other localized guarding and no rebound present. Bowel sounds are present. No masses felt. BACK: No tenderness throughout entire back. EXTREMITIES: Normal range of motion without pain. NEUROLOGICAL: Normal speech, normal gait. Normal sensory, motor, and reflex exams. Awake, alert, and oriented x3. Cranial nerves normal. PSYCH: Normal mood, normal affect. SKIN: Warm, dry, no rashes. Course - Re-evaluation Re-evalutation: 08/16/18 11:01 Appropriate labs ordered. IV fluids ordered. Pain medications ordered. Once I have patient's studies back, will contact hospitalist for likely admission. - Vital Signs Vital signs: Temp Pulse Resp BP Pulse Ox 98.6 F 88 16 176/102 H 100 08/16/18 12:51 08/16/18 12:51 08/16/18 12:51 08/16/18 12:51 08/16/18 12:51 - Laboratory Result Diagrams: 08/16/18 12:00 08/16/18 12:00 Laboratory results interpreted by me: 08/16/18 08/16/18 12:00 12:00 Hgb 11.5 L Hct 34.5 L RDW 14.7 H BUN 21 H Est GFR (Non-Af Amer) 50 L Glucose 179 H Alkaline Phosphatase 163 H Lipase 1546.6 H Discharge - Discharge Clinical Impression: Pancreatitis, IDDM (insulin dependent diabetes mellitus), Abdominal pain, Vomiting Condition: Stable Disposition: ADMITTED OBSERVATION Admitting Provider: Neri (Hospitalist) Unit Admitted: Medical Floor Referrals: RONALD BARKER FNP-C [Primary Care Provider] - Follow up as needed
[2018-08-16 12:15] LABS: ABSOLUTE BASOPHILS # (AUTO) 0.1 10^3/uL (0.0-0.2); ABSOLUTE EOSINOPHILS # (AUTO) 0.1 10^3/uL (0.0-0.6); ABSOLUTE LYMPHOCYTES (AUTO) 2.4 10^3/uL (0.5-4.7); ABSOLUTE MONOCYTES (AUTO) 0.4 10^3/uL (0.1-1.4); ABSOLUTE NEUT (AUTO) 5.3 10^3/uL (1.7-8.2); EOSINOPHILS % (AUTO) 1.1 % (0-6); HEMATOCRIT 34.5 % (36.0-47.0); HEMOGLOBIN 11.5 g/dL (12.0-15.5); LYMPHOCYTES % (AUTO) 29.1 % (13-45); MEAN CORPUSCULAR HEMOGLOBIN 28.8 pg (27.0-33.4); MEAN CORPUSCULAR HGB CONC 33.4 g/dL (32.0-36.0); MEAN CORPUSCULAR VOLUME 86 fl (80-97); MONOCYTES % (AUTO) 5.2 % (3-13); PLATELET COUNT 379 10^3/uL (150-450); RED BLOOD COUNT 3.99 10^6/uL (3.72-5.28); RED CELL DISTRIBUTION WIDTH 14.7 % (11.5-14.0); SEGMENTED NEUTROPHILS % (AUTO) 63.6 % (42-78); TOTAL CELLS COUNTED % (AUTO) 100 %; WHITE BLOOD COUNT 8.4 10^3/uL (4.0-10.5)
[2018-08-16] MEDS: NORMAL SALINE 1000 ML 1,000 ML IV PRN ×4 (12:27→22:07)
[2018-08-16 12:41] LABS: ALANINE AMINOTRANSFERASE 35 U/L (9-52); ALBUMIN 4.6 g/dL (3.5-5.0); ALKALINE PHOSPHATASE 163 U/L (38-126); ANION GAP 9 (5-19); ASPARTATE AMINO TRANSFERASE 32 U/L (14-36); BILIRUBIN,DIRECT 0.4 mg/dL (0.0-0.4); BILIRUBIN,TOTAL 0.5 mg/dL (0.2-1.3); BLOOD UREA NITROGEN 21 mg/dL (7-20); CALCIUM 9.9 mg/dL (8.4-10.2); CARBON DIOXIDE 27 mmol/L (22-30); CHLORIDE 102 mmol/L (98-107); GLUCOSE 179 mg/dL (75-110); LIPASE 1546.6 U/L (23-300); POTASSIUM 4.6 mmol/L (3.6-5.0); SODIUM 137.8 mmol/L (137-145); TOTAL PROTEIN 8.1 g/dL (6.3-8.2)
[2018-08-16 12:42] LABS: ALCOHOL < 10 mg/dL (NONE DETECTED)
[2018-08-16] MEDS ORDERED: TEMAZEPAM 15 MG CAPSULE PO PRN (13:28)
[2018-08-16] MEDS ORDERED: PROMETHAZINE HCL INJ 25 MG/1 ML VIAL IV PRN (13:28)
[2018-08-16] MEDS ORDERED: IPRATROPIUM/ALBUTEROL 0.5-2.5 MG/3 ML AMPUL NEB PRN (13:47)
[2018-08-16] MEDS ORDERED: DEXTROSE 40% GEL 15 GM TUBE PO PRN ×2 (13:47)
[2018-08-16] MEDS ORDERED: GLUCAGON,HUMAN RECOMB 1 MG INJ IM PRN (13:47)
[2018-08-16] MEDS ORDERED: DEXTROSE 50%-WATER 25 GM/50 ML DISP.SYRIN IV PRN (13:47)
--- NOTE | 2018-08-16 13:47 | PDOC H&P ---
History of Present Illness Admission Date/PCP: LYNNE OLMEDO History of Present Illness: JJ HOFFMAN is a 37 year old black female patient with past medical history of alcohol induced chronic pancreatitis, hyperlipidemia, hypertension, COPD, diabetes mellitus, tobacco dependence and chronic renal failure presented with chief complaint of nausea, vomiting, abdominal pain. Patient reports that she was in her usual baseline state of health up until 7 PM yesterday night when she started to have the above-mentioned complaints. 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 Patient denies any chills, fever, palpitation, cough, chest pain and urinary complaints. Her blood work is unremarkable except for elevated lipase level of 1500. Past Medical History Cardiac Medical History: Reports: Hyperlipidema, Hypertension Denies: Congestive Heart Failure, Myocardial Infarction Pulmonary Medical History: Reports: Chronic Obstructive Pulmonary Disease (COPD) Denies: Asthma Neurological Medical History: Reports: Seizures Denies: Migraine Endocrine Medical History: Reports: Diabetes Mellitus Type 1, Diabetes Mellitus Type 2 Denies: Hyperthyroidism, Hypothyroidism Renal/ Medical History: Denies: End Stage Renal Disease GI Medical History: Denies: Gastroesophageal Reflux Disease, Hepatitis, Hiatal Hernia Musculoskeltal Medical History: Denies: Arthritis Psychiatric Medical History: Denies: Dementia, Depression Hematology: Reports: Anemia Denies: Bleeding Tendencies Past Surgical History Past Surgical History: Reports: Section - x3, Hysterectomy Social History Smoking Status: Current Every Day Smoker Frequency of Alcohol Use: None Hx Recreational Drug Use: Yes Drugs: Marijuana Hx Prescription Drug Abuse: No - Advance Directive Resuscitation Status: Full Code Family History Family History: Reviewed & Not Pertinent, DM, Hypertension Parental Family History Reviewed: Yes Children Family History Reviewed: Yes Sibling(s) Family History Reviewed.: Yes Medication/Allergy Home Medications: Amlodipine Besylate [Norvasc 10 mg Tablet] 10 mg PO DAILY 08/04/18 Chlorthalidone [Hygroton 25 mg Tablet] 25 mg PO DAILY 08/04/18 Docusate Sodium [Colace 100 mg Capsule] 100 mg PO BID 08/04/18 Famotidine [Pepcid 20 mg Tablet] 20 mg PO Q12 08/04/18 Ferrous Sulfate [Feosol 325 mg Tablet] 325 mg PO DAILY 08/04/18 Gabapentin [Neurontin 100 mg Capsule] 100 mg PO Q12 08/04/18 Insulin Aspart [Novolog Insulin (Aspart) 100 unit/mL] 10 unit SQ AC 08/04/18 Lisinopril [Prinivil 40 mg Tablet] 40 mg PO DAILY 08/04/18 Metoprolol Tartrate [Lopressor 50 mg Tablet] 50 mg PO Q12 08/04/18 Pantoprazole Sodium [Protonix [address] Tablet] 40 mg PO DAILY 08/04/18 Insulin Glargine,Hum.rec.anlog [Lantus Insulin 100 Unit/1 ml 10 ml] 10 unit SUBCUT Q12 #10 ml 08/09/18 Allergies/Adverse Reactions: hydrocodone [From [place]] Allergy (Verified 08/16/18 09:44) morphine Allergy (Verified 08/16/18 09:44) Review of Systems Constitutional: ABSENT: chills, fever(s), headache(s), weight gain, weight loss Eyes: ABSENT: visual disturbances Ears: ABSENT: hearing changes Cardiovascular: ABSENT: chest pain, dyspnea on exertion, edema, orthropnea, palpitations Respiratory: ABSENT: cough, hemoptysis Gastrointestinal: PRESENT: abdominal pain, nausea, vomiting Genitourinary: ABSENT: dysuria, hematuria Musculoskeletal: ABSENT: joint swelling Integumentary: ABSENT: rash, wounds Neurological: ABSENT: abnormal gait, abnormal speech, confusion, dizziness, foc al weakness, syncope Psychiatric: ABSENT: anxiety, depression, homidical ideation, suicidal ideation Endocrine: ABSENT: cold intolerance, heat intolerance, polydipsia, polyuria Hematologic/Lymphatic: ABSENT: easy bleeding, easy bruising Physical Exam Vital Signs: Temp Pulse Resp BP Pulse Ox 98.6 F 88 16 176/102 H 100 08/16/18 12:51 08/16/18 12:51 08/16/18 12:51 08/16/18 12:51 08/16/18 12:51 Intake & Output 08/15/18 08/16/18 08/17/18 06:59 06:59 06:59 Intake Total 1000 Balance 1000 Weight 58.9 kg GI/Abdominal exam: PRESENT: tenderness - Patient has epigastric tenderness on deep palpation. Results Laboratory Results: 08/16/18 12:00 08/16/18 12:00 08/16/18 08/16/18 12:00 12:00 WBC 8.4 RBC 3.99 Hgb 11.5 L Hct 34.5 L MCV 86 MCH 28.8 MCHC 33.4 RDW 14.7 H Plt Count 379 Seg Neutrophils % 63.6 Lymphocytes % 29.1 Monocytes % 5.2 Eosinophils % 1.1 Basophils % 1.0 Absolute Neutrophils 5.3 Absolute Lymphocytes 2.4 Absolute Monocytes 0.4 Absolute Eosinophils 0.1 Absolute Basophils 0.1 Sodium 137.8 Potassium 4.6 Chloride 102 Carbon Dioxide 27 Anion Gap 9 BUN 21 H Creatinine 1.22 Est GFR ( Amer) > 60 Est GFR (Non-Af Amer) 50 L Glucose 179 H Calcium 9.9 Total Bilirubin 0.5 AST 32 ALT 35 Alkaline Phosphatase 163 H Total Protein 8.1 Albumin 4.6 Lipase 1546.6 H Assessment and Plan - Diagnosis (1) Acute on chronic pancreatitis Is this a current diagnosis for this admission?: Yes Plan: Patient has been started on normal saline at rate of 200 mm/h. She is on Percocet for breakthrough pain. We will keep her bowel rest. (2) CKD (chronic kidney disease) stage 3, GFR 30-59 ml/min Is this a current diagnosis for this admission?: Yes Plan: We will avoid nephrotoxic agents. (3) Type 2 diabetes mellitus Is this a current diagnosis for this admission?: Yes Plan: I will hold her oral hypoglycemic agent and keep her on sliding scale since patient is n.p.o. (4) COPD (chronic obstructive pulmonary disease) Qualifiers: Emphysema type: unspecified Is this a current diagnosis for this admission?: Yes Plan: We will put her on PRN bronchodilators. (5) Hypertension Qualifiers: Hypertension type: essential hypertension Qualified Code(s): I10 - Essential (primary) hypertension Is this a current diagnosis for this admission?: Yes Plan: Continue her home medication (6) Hyperlipidemia Qualifiers: Hyperlipidemia type: unspecified Qualified Code(s): E78.5 - Hyperlipidemia, unspecified Is this a current diagnosis for this admission?: Yes Plan: Continue home medication - Inpatient Certification Medical Necessity: Need For IV Fluids
[2018-08-16] MEDS: HEPARIN SOD (PORCINE) 5,000 UNIT/ML 1 ML SYRINGE SUBCUT SCH ×2 (14:15→22:09)
[2018-08-16] MEDS: INSULIN LISPRO 100 UNIT/ML 3 ML VIAL SUBCUT SCH ×2 (16:16→22:09)
[2018-08-16] MEDS: HYDROMORPHONE HCL INJ/PF 2 MG/ML AMPULE IV PRN ×2 (16:38→22:05)
[2018-08-16] MEDS ORDERED: METOPROLOL TARTRATE 100 MG TABLET PO ONE (16:54)
[2018-08-16] MEDS ORDERED: HYDRALAZINE HCL 50 MG TABLET PO ONE (16:56)
[2018-08-16 17:31] LABS: APPEARANCE,URINE SLIGHTLY-CLOUDY; BILIRUBIN,URINE NEGATIVE (NEGATIVE); COLOR,URINE YELLOW; GLUCOSE, URINE 150 mg/dL (NEGATIVE); KETONES,URINE NEGATIVE (NEGATIVE); LEUKOCYTE ESTERASE,URINE NEGATIVE (NEGATIVE); NITRITE,URINE NEGATIVE (NEGATIVE); PROTEIN,URINE >=500 mg/dL (NEGATIVE); URINE SPECIFIC GRAVITY 1.013; UROBILINOGEN,URINE NEGATIVE mg/dL (<2.0)
[2018-08-16] MEDS: DOCUSATE SODIUM 100 MG/10 ML UDC PO SCH (17:45)
[2018-08-16] MEDS: OXYCODONE-ACETAMINOPHEN 5-325 MG TABLET PO PRN (19:59)
[2018-08-16] MEDS: DEXTROSE 50%-WATER 25 GM/50 ML DISP.SYRIN IV PRN (21:52)
[2018-08-16] MEDS: FAMOTIDINE 20 MG TABLET PO SCH (22:09)
[2018-08-17] MEDS ORDERED: METOPROLOL TARTRATE 100 MG TABLET PO SCH (05:00)
[2018-08-17] MEDS ORDERED: HYDRALAZINE HCL 50 MG TABLET PO SCH (05:00)
[2018-08-17] MEDS ORDERED: FLUCONAZOLE 100 MG TABLET PO ONE (05:00)
[2018-08-17] MEDS: METOPROLOL TARTRATE 100 MG TABLET PO SCH ×2 (05:31→17:02)
[2018-08-17] MEDS: HYDRALAZINE HCL 50 MG TABLET PO SCH ×2 (05:32→17:01)
[2018-08-17] MEDS: DEXTROSE 50%-WATER 25 GM/50 ML DISP.SYRIN IV PRN (05:37)
[2018-08-17] MEDS: NORMAL SALINE 1000 ML 1,000 ML IV PRN ×3 (05:40→14:52)
[2018-08-17] MEDS: HYDROMORPHONE HCL INJ/PF 2 MG/ML AMPULE IV PRN ×3 (05:41→18:11)
[2018-08-17] MEDS: HEPARIN SOD (PORCINE) 5,000 UNIT/ML 1 ML SYRINGE SUBCUT SCH ×3 (06:24→21:38)
[2018-08-17 06:57] LABS: ANION GAP 5 (5-19); BLOOD UREA NITROGEN 15 mg/dL (7-20); CALCIUM 8.7 mg/dL (8.4-10.2); CARBON DIOXIDE 24 mmol/L (22-30); CHLORIDE 110 mmol/L (98-107); CHOLESTEROL 211.21 mg/dL (0-200); GLUCOSE 116 mg/dL (75-110); POTASSIUM 3.7 mmol/L (3.6-5.0); SODIUM 139.1 mmol/L (137-145); TRIGLYCERIDES 98 mg/dL (<150)
[2018-08-17 07:08] LABS: DIRECT LDL 93 mg/dL (<100)
[2018-08-17] MEDS: INSULIN LISPRO 100 UNIT/ML 3 ML VIAL SUBCUT SCH ×4 (07:34→22:27)
[2018-08-17] MEDS ORDERED: DEXTROSE 10%-WATER 1,000 ML IV PRN (08:16)
[2018-08-17] MEDS: DOCUSATE SODIUM 100 MG/10 ML UDC PO SCH (09:46)
[2018-08-17] MEDS: OXYCODONE-ACETAMINOPHEN 5-325 MG TABLET PO PRN ×2 (09:46→21:42)
[2018-08-17] MEDS: FAMOTIDINE 20 MG TABLET PO SCH ×2 (09:46→21:39)
[2018-08-17] MEDS ORDERED: NICOTINE 14 MG/24 HR PATCH.TD24 TD ONE (11:14)
--- NOTE | 2018-08-17 11:14 | PDOC PROGRESS REPORT ---
Subjective Progress Note for:: 08/17/18 Subjective:: JJ HOFFMAN is a 37 year old black female patient with past medical history of alcohol induced chronic pancreatitis, hyperlipidemia, hypertension, COPD, diabetes mellitus, tobacco dependence and chronic renal failure presented with chief complaint of nausea, vomiting, abdominal pain. Patient reports that she was in her usual baseline state of health up until 7 PM yesterday night when she started to have the above-mentioned complaints. 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 Patient denies any chills, fever, palpitation, cough, chest pain and urinary complaints. Her blood work is unremarkable except for elevated lipase level of 1500. 08/17/2018: Patient seen and examined at bedside. She is awake alert oriented. She complains she is hungry and asks for food. This morning patient has an episode of hypoglycemia which is corrected with dextrose. Her diet advanced to solid. Reason For Visit: ACUTE ON CHRONIC PANCREATITIS Physical Exam Vital Signs: Temp Pulse Resp BP Pulse Ox 98.2 F 73 16 162/98 H 100 08/17/18 08:00 08/17/18 08:00 08/17/18 08:00 08/17/18 08:00 08/17/18 08:00 Intake & Output 08/16/18 08/17/18 08/18/18 06:59 06:59 06:59 Intake Total 4000 Balance 4000 Weight 60.9 kg General appearance: PRESENT: no acute distress Head exam: PRESENT: atraumatic Eye exam: PRESENT: conjunctiva pink Mouth exam: PRESENT: dry mucosa Neck exam: ABSENT: carotid bruit, JVD, lymphadenopathy, thyromegaly Respiratory exam: PRESENT: clear to auscultation teddy. ABSENT: rales, rhonchi, wheezes Cardiovascular exam: PRESENT: RRR. ABSENT: diastolic murmur, rubs, systolic murmur GI/Abdominal exam: PRESENT: normal bowel sounds, soft. ABSENT: distended, guarding, mass, organolmegaly, rebound, tenderness Neurological exam: PRESENT: alert, awake, oriented to person, oriented to place, oriented to time, oriented to situation Results Laboratory Results: 08/16/18 12:00 08/17/18 06:33 08/16/18 08/16/18 08/16/18 12:00 12:00 17:05 WBC 8.4 RBC 3.99 Hgb 11.5 L Hct 34.5 L MCV 86 MCH 28.8 MCHC 33.4 RDW 14.7 H Plt Count 379 Seg Neutrophils % 63.6 Lymphocytes % 29.1 Monocytes % 5.2 Eosinophils % 1.1 Basophils % 1.0 Absolute Neutrophils 5.3 Absolute Lymphocytes 2.4 Absolute Monocytes 0.4 Absolute Eosinophils 0.1 Absolute Basophils 0.1 Sodium 137.8 Potassium 4.6 Chloride 102 Carbon Dioxide 27 Anion Gap 9 BUN 21 H Creatinine 1.22 Est GFR ( Amer) > 60 Est GFR (Non-Af Amer) 50 L Glucose 179 H Calcium 9.9 Total Bilirubin 0.5 AST 32 ALT 35 Alkaline Phosphatase 163 H Total Protein 8.1 Albumin 4.6 Triglycerides Cholesterol LDL Cholesterol Direct VLDL Cholesterol HDL Cholesterol Lipase 1546.6 H Urine Color YELLOW Urine Appearance SLIGHTLY-CLOUDY Urine pH 6.0 Ur Specific [place] 1.013 Urine Protein >=500 H Urine Glucose (UA) 150 H Urine Ketones NEGATIVE Urine Blood NEGATIVE Urine Nitrite NEGATIVE Ur Leukocyte Esterase NEGATIVE Urine WBC (Auto) 1 Urine RBC (Auto) 2 08/17/18 08/17/18 06:33 06:33 WBC RBC Hgb Hct MCV MCH MCHC RDW Plt Count Seg Neutrophils % Lymphocytes % Monocytes % Eosinophils % Basophils % Absolute Neutrophils Absolute Lymphocytes Absolute Monocytes Absolute Eosinophils Absolute Basophils Sodium 139.1 Potassium 3.7 Chloride 110 H Carbon Dioxide 24 Anion Gap 5 BUN 15 Creatinine 1.09 Est GFR ( Amer) > 60 Est GFR (Non-Af Amer) 56 L Glucose 116 H Calcium 8.7 Total Bilirubin AST ALT Alkaline Phosphatase Total Protein Albumin Triglycerides 98 Cholesterol 211.21 H LDL Cholesterol Direct 93 VLDL Cholesterol 20.0 HDL Cholesterol 76 Lipase 647.6 H Urine Color Urine Appearance Urine pH Ur Specific [place] Urine Protein Urine Glucose (UA) Urine Ketones Urine Blood Urine Nitrite Ur Leukocyte Esterase Urine WBC (Auto) Urine RBC (Auto) Assessment and Plan - Diagnosis (1) Hypoglycemia Is this a current diagnosis for this admission?: Yes Plan: Resolved (2) Acute on chronic pancreatitis Is this a current diagnosis for this admission?: Yes Plan: Her diet advanced. Check her lipase level. (3) CKD (chronic kidney disease) stage 3, GFR 30-59 ml/min Is this a current diagnosis for this admission?: Yes Plan: Her creatinine is today within normal limits. (4) Type 2 diabetes mellitus Is this a current diagnosis for this admission?: Yes Plan: I will hold her oral hypoglycemic agent and keep her on sliding scale since patient is n.p.o. (5) COPD (chronic obstructive pulmonary disease) Qualifiers: Emphysema type: unspecified Is this a current diagnosis for this admission?: Yes Plan: We will put her on PRN bronchodilators. (6) Hypertension Qualifiers: Hypertension type: essential hypertension Qualified Code(s): I10 - Essential (primary) hypertension Is this a current diagnosis for this admission?: Yes Plan: Continue her home medication (7) Hyperlipidemia Qualifiers: Hyperlipidemia type: unspecified Qualified Code(s): E78.5 - Hyperlipidemia, unspecified Is this a current diagnosis for this admission?: Yes Plan: Continue home medication (8) Tobacco dependence Is this a current diagnosis for this admission?: Yes Plan: Patient counseled and encouraged to quit smoking and she is put on nicotine patch
[2018-08-17] MEDS ORDERED: AMLODIPINE BESYLATE 10 MG TABLET PO ONE (13:15)
[2018-08-17] MEDS ORDERED: LISINOPRIL 10 MG TABLET PO ONE (13:15)
[2018-08-17] MEDS: PROMETHAZINE HCL INJ 25 MG/1 ML VIAL IV PRN (14:51)
[2018-08-17] MEDS: DOCUSATE SODIUM 100 MG CAPSULE PO SCH (17:01)
[2018-08-17] MEDS: GABAPENTIN 100 MG CAPSULE PO SCH (21:39)
[2018-08-17] MEDS: TEMAZEPAM 15 MG CAPSULE PO PRN (21:42)
[2018-08-18] MEDS: PROMETHAZINE HCL INJ 25 MG/1 ML VIAL IV PRN (00:05)
[2018-08-18] MEDS: HYDROMORPHONE HCL INJ/PF 2 MG/ML AMPULE IV PRN ×4 (00:06→19:45)
[2018-08-18] MEDS: HEPARIN SOD (PORCINE) 5,000 UNIT/ML 1 ML SYRINGE SUBCUT SCH ×3 (05:42→21:16)
[2018-08-18] MEDS: HYDRALAZINE HCL 50 MG TABLET PO SCH ×2 (05:45→17:15)
[2018-08-18] MEDS: METOPROLOL TARTRATE 100 MG TABLET PO SCH ×2 (05:48→17:16)
[2018-08-18] MEDS: OXYCODONE-ACETAMINOPHEN 5-325 MG TABLET PO PRN ×3 (06:30→23:17)
[2018-08-18] MEDS: INSULIN LISPRO 100 UNIT/ML 3 ML VIAL SUBCUT SCH ×4 (07:51→21:17)
[2018-08-18] MEDS ORDERED: FLUCONAZOLE 100 MG TABLET PO SCH (10:00)
[2018-08-18] MEDS: LISINOPRIL 10 MG TABLET PO SCH (10:02)
[2018-08-18] MEDS: FERROUS SULFATE 325 MG TABLET PO SCH (10:03)
[2018-08-18] MEDS: DOCUSATE SODIUM 100 MG CAPSULE PO SCH ×2 (10:03→17:15)
[2018-08-18] MEDS: AMLODIPINE BESYLATE 10 MG TABLET PO SCH (10:03)
[2018-08-18] MEDS: CHLORTHALIDONE 25 MG TABLET PO SCH (10:03)
[2018-08-18] MEDS: FAMOTIDINE 20 MG TABLET PO SCH ×2 (10:03→21:16)
[2018-08-18] MEDS: GABAPENTIN 100 MG CAPSULE PO SCH ×2 (10:03→21:16)
[2018-08-18] MEDS: NORMAL SALINE 1000 ML 1,000 ML IV PRN ×2 (10:54→19:40)
--- NOTE | 2018-08-18 14:09 | PDOC PROGRESS REPORT ---
Subjective Progress Note for:: 08/18/18 Subjective:: JJ HOFFMAN is a 37 year old black female patient with past medical history of alcohol induced chronic pancreatitis, hyperlipidemia, hypertension, COPD, diabetes mellitus, tobacco dependence and chronic renal failure presented with chief complaint of nausea, vomiting, abdominal pain. Patient reports that she was in her usual baseline state of health up until 7 PM yesterday night when she started to have the above-mentioned complaints. 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 Patient denies any chills, fever, palpitation, cough, chest pain and urinary complaints. Her blood work is unremarkable except for elevated lipase level of 1500. 08/17/2018: Patient seen and examined at bedside. She is awake alert oriented. She complains she is hungry and asks for food. This morning patient has an episode of hypoglycemia which is corrected with dextrose. Her diet advanced to solid. 08/18/2018: Patient seen and examined while she is resting in bed. Patient reports that she has restful night. She finished her breakfast 100%. Yesterday her lipase was 647 today it is 2210. I will continue the hydration and pain control. And check her lipase in a.m. Reason For Visit: ACUTE ON CHRONIC PANCREATITIS Physical Exam Vital Signs: Temp Pulse Resp BP Pulse Ox 98.2 F 81 16 149/98 H 100 08/18/18 11:36 08/18/18 11:36 08/18/18 11:36 08/18/18 11:36 08/18/18 11:36 Intake & Output 08/17/18 08/18/18 08/19/18 06:59 06:59 06:59 Intake Total 4000 3833 480 Balance 4000 3833 480 Weight 60.9 kg 60.9 kg General appearance: PRESENT: no acute distress Eye exam: PRESENT: conjunctiva pink Mouth exam: PRESENT: dry mucosa Cardiovascular exam: PRESENT: RRR. ABSENT: diastolic murmur, rubs, systolic murmur Pulses: PRESENT: normal dorsalis pedis pul GI/Abdominal exam: PRESENT: tenderness Neurological exam: PRESENT: alert, awake, oriented to person, oriented to place, oriented to time, oriented to situation Results Laboratory Results: 08/16/18 12:00 08/17/18 06:33 08/18/18 06:37 Lipase 2210.4 H Assessment and Plan - Diagnosis (1) Hypoglycemia Is this a current diagnosis for this admission?: Yes Plan: Resolved (2) Acute on chronic pancreatitis Is this a current diagnosis for this admission?: Yes Plan: Clinically patient is improving. But her lipase has increased. (3) CKD (chronic kidney disease) stage 3, GFR 30-59 ml/min Is this a current diagnosis for this admission?: Yes Plan: Her creatinine is today within normal limits. (4) Type 2 diabetes mellitus Is this a current diagnosis for this admission?: Yes Plan: I will hold her oral hypoglycemic agent and keep her on sliding scale since patient is n.p.o. (5) COPD (chronic obstructive pulmonary disease) Qualifiers: Emphysema type: unspecified Is this a current diagnosis for this admission?: Yes Plan: We will put her on PRN bronchodilators. (6) Hypertension Qualifiers: Hypertension type: essential hypertension Qualified Code(s): I10 - Essential (primary) hypertension Is this a current diagnosis for this admission?: Yes Plan: Continue her home medication (7) Hyperlipidemia Qualifiers: Hyperlipidemia type: unspecified Qualified Code(s): E78.5 - Hyperlipidemia, unspecified Is this a current diagnosis for this admission?: Yes Plan: Continue home medication (8) Tobacco dependence Is this a current diagnosis for this admission?: Yes Plan: Patient counseled and encouraged to quit smoking and she is put on nicotine patch
[2018-08-18] MEDS ORDERED: INSULIN GLARGINE,HUM.REC.ANLOG 1,000 UNIT/10 ML VIAL SUBCUT SCH (22:00)
[2018-08-18] MEDS: TEMAZEPAM 15 MG CAPSULE PO PRN (22:29)
[2018-08-19] MEDS: NORMAL SALINE 1000 ML 1,000 ML IV PRN ×3 (01:22→19:54)
[2018-08-19] MEDS: HYDROMORPHONE HCL INJ/PF 2 MG/ML AMPULE IV PRN ×5 (01:26→21:09)
[2018-08-19] MEDS: METOPROLOL TARTRATE 100 MG TABLET PO SCH ×2 (05:44→17:07)
[2018-08-19] MEDS: OXYCODONE-ACETAMINOPHEN 5-325 MG TABLET PO PRN ×3 (05:45→15:02)
[2018-08-19] MEDS: HYDRALAZINE HCL 50 MG TABLET PO SCH ×2 (05:45→17:07)
[2018-08-19] MEDS: HEPARIN SOD (PORCINE) 5,000 UNIT/ML 1 ML SYRINGE SUBCUT SCH ×3 (05:45→21:25)
[2018-08-19] MEDS: INSULIN LISPRO 100 UNIT/ML 3 ML VIAL SUBCUT SCH ×4 (08:02→21:25)
[2018-08-19] MEDS: CHLORTHALIDONE 25 MG TABLET PO SCH (10:19)
[2018-08-19] MEDS: INSULIN GLARGINE,HUM.REC.ANLOG 1,000 UNIT/10 ML VIAL SUBCUT SCH ×2 (10:19→21:24)
[2018-08-19] MEDS: FERROUS SULFATE 325 MG TABLET PO SCH (10:19)
[2018-08-19] MEDS: DOCUSATE SODIUM 100 MG CAPSULE PO SCH ×2 (10:19→17:07)
[2018-08-19] MEDS: FAMOTIDINE 20 MG TABLET PO SCH ×2 (10:20→21:24)
[2018-08-19] MEDS: GABAPENTIN 100 MG CAPSULE PO SCH ×2 (10:20→21:24)
[2018-08-19] MEDS: NICOTINE 14 MG/24 HR PATCH.TD24 TD PRN (10:20)
[2018-08-19] MEDS: AMLODIPINE BESYLATE 10 MG TABLET PO SCH (10:20)
[2018-08-19] MEDS: LISINOPRIL 10 MG TABLET PO SCH (10:20)
[2018-08-19] MEDS: PROMETHAZINE HCL INJ 25 MG/1 ML VIAL IV PRN (12:14)
--- NOTE | 2018-08-19 14:38 | PDOC PROGRESS REPORT ---
Subjective Progress Note for:: 08/19/18 Subjective:: JJ HOFFMAN is a 37 year old black female patient with past medical history of alcohol induced chronic pancreatitis, hyperlipidemia, hypertension, COPD, diabetes mellitus, tobacco dependence and chronic renal failure presented with chief complaint of nausea, vomiting, abdominal pain. Patient reports that she was in her usual baseline state of health up until 7 PM yesterday night when she started to have the above-mentioned complaints. 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 Patient denies any chills, fever, palpitation, cough, chest pain and urinary complaints. Her blood work is unremarkable except for elevated lipase level of 1500. 08/17/2018: Patient seen and examined at bedside. She is awake alert oriented. She complains she is hungry and asks for food. This morning patient has an episode of hypoglycemia which is corrected with dextrose. Her diet advanced to solid. 08/18/2018: Patient seen and examined while she is resting in bed. Patient reports that she has restful night. She finished her breakfast 100%. Yesterday her lipase was 647 today it is 2210. I will continue the hydration and pain control. And check her lipase in a.m. 08/19/2018: Patient's abdominal pain is improving but her lipase is creeping up yesterday it was 2210 today it is 2296.4. I switched her diet from solid to clear liquid. And will check her lipase tomorrow. Reason For Visit: ACUTE ON CHRONIC PANCREATITIS Physical Exam Vital Signs: Temp Pulse Resp BP Pulse Ox 98.7 F 84 15 166/98 H 100 08/19/18 11:45 08/19/18 11:45 08/19/18 11:45 08/19/18 11:45 08/19/18 11:45 Intake & Output 08/18/18 08/19/18 08/20/18 06:59 06:59 06:59 Intake Total 3833 4653 610 Balance 3833 4653 610 Weight 60.9 kg 60.1 kg General appearance: PRESENT: no acute distress Respiratory exam: PRESENT: clear to auscultation teddy. ABSENT: rales, rhonchi, wheezes Cardiovascular exam: PRESENT: RRR. ABSENT: diastolic murmur, rubs, systolic murmur GI/Abdominal exam: PRESENT: tenderness Neurological exam: PRESENT: alert, awake, oriented to person, oriented to place, oriented to time, oriented to situation Results Laboratory Results: 08/16/18 12:00 08/17/18 06:33 08/19/18 08:54 Lipase 2296.4 H Assessment and Plan - Diagnosis (1) Hypoglycemia Is this a current diagnosis for this admission?: Yes Plan: Resolved (2) Acute on chronic pancreatitis Is this a current diagnosis for this admission?: Yes Plan: Clinically patient is improving. But her lipase has increased. (3) CKD (chronic kidney disease) stage 3, GFR 30-59 ml/min Is this a current diagnosis for this admission?: Yes Plan: Her creatinine is today within normal limits. (4) Type 2 diabetes mellitus Is this a current diagnosis for this admission?: Yes Plan: I will hold her oral hypoglycemic agent and keep her on sliding scale since patient is n.p.o. (5) COPD (chronic obstructive pulmonary disease) Qualifiers: Emphysema type: unspecified Is this a current diagnosis for this admission?: Yes Plan: We will put her on PRN bronchodilators. (6) Hypertension Qualifiers: Hypertension type: essential hypertension Qualified Code(s): I10 - Essential (primary) hypertension Is this a current diagnosis for this admission?: Yes Plan: Continue her home medication (7) Hyperlipidemia Qualifiers: Hyperlipidemia type: unspecified Qualified Code(s): E78.5 - Hyperlipidemia, unspecified Is this a current diagnosis for this admission?: Yes Plan: Continue home medication (8) Tobacco dependence Is this a current diagnosis for this admission?: Yes Plan: Patient counseled and encouraged to quit smoking and she is put on nicotine patch
[2018-08-20] MEDS: HYDROMORPHONE HCL INJ/PF 2 MG/ML AMPULE IV PRN ×5 (00:37→20:16)
[2018-08-20] MEDS: NORMAL SALINE 1000 ML 1,000 ML IV PRN ×4 (00:38→20:20)
[2018-08-20] MEDS: OXYCODONE-ACETAMINOPHEN 5-325 MG TABLET PO PRN ×2 (03:57→12:12)
[2018-08-20] MEDS: HEPARIN SOD (PORCINE) 5,000 UNIT/ML 1 ML SYRINGE SUBCUT SCH ×3 (05:03→21:25)
[2018-08-20] MEDS: HYDRALAZINE HCL 50 MG TABLET PO SCH ×2 (05:03→17:16)
[2018-08-20] MEDS: METOPROLOL TARTRATE 100 MG TABLET PO SCH ×2 (05:03→17:16)
[2018-08-20] MEDS: PROMETHAZINE HCL INJ 25 MG/1 ML VIAL IV PRN ×2 (05:03→20:23)
[2018-08-20] MEDS: INSULIN LISPRO 100 UNIT/ML 3 ML VIAL SUBCUT SCH ×4 (08:18→21:24)
[2018-08-20] MEDS: AMLODIPINE BESYLATE 10 MG TABLET PO SCH (10:27)
[2018-08-20] MEDS: FERROUS SULFATE 325 MG TABLET PO SCH (10:27)
[2018-08-20] MEDS: DOCUSATE SODIUM 100 MG CAPSULE PO SCH ×2 (10:27→17:16)
[2018-08-20] MEDS: FAMOTIDINE 20 MG TABLET PO SCH ×2 (10:27→21:25)
[2018-08-20] MEDS: CHLORTHALIDONE 25 MG TABLET PO SCH (10:27)
[2018-08-20] MEDS: GABAPENTIN 100 MG CAPSULE PO SCH ×2 (10:27→21:25)
[2018-08-20] MEDS: LISINOPRIL 10 MG TABLET PO SCH (10:27)
[2018-08-20] MEDS: INSULIN GLARGINE,HUM.REC.ANLOG 1,000 UNIT/10 ML VIAL SUBCUT SCH (10:32)
--- NOTE | 2018-08-20 15:13 | PDOC PROGRESS REPORT ---
Subjective Progress Note for:: 08/20/18 Subjective:: JJ HOFFMAN is a 37 year old black female patient with past medical history of alcohol induced chronic pancreatitis, hyperlipidemia, hypertension, COPD, diabetes mellitus, tobacco dependence and chronic renal failure presented with chief complaint of nausea, vomiting, abdominal pain. Patient reports that she was in her usual baseline state of health up until 7 PM yesterday night when she started to have the above-mentioned complaints. 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 Patient denies any chills, fever, palpitation, cough, chest pain and urinary complaints. Her blood work is unremarkable except for elevated lipase level of 1500. 08/17/2018: Patient seen and examined at bedside. She is awake alert oriented. She complains she is hungry and asks for food. This morning patient has an episode of hypoglycemia which is corrected with dextrose. Her diet advanced to solid. 08/18/2018: Patient seen and examined while she is resting in bed. Patient reports that she has restful night. She finished her breakfast 100%. Yesterday her lipase was 647 today it is 2210. I will continue the hydration and pain control. And check her lipase in a.m. 08/19/2018: Patient's abdominal pain is improving but her lipase is creeping up yesterday it was 2210 today it is 2296.4. I switched her diet from solid to clear liquid. And will check her lipase tomorrow. : Patient seen resting in bed comfortably. I reviewed her lab and it shows that her lipase dropped to 609. Patient is still on clear liquid diet. Reason For Visit: ACUTE ON CHRONIC PANCREATITIS Physical Exam Vital Signs: Temp Pulse Resp BP Pulse Ox 99.0 F 84 20 160/92 H 99 08/20/18 12:00 08/20/18 12:00 08/20/18 12:00 08/20/18 12:00 08/20/18 12:00 Intake & Output 08/19/18 08/20/18 08/21/18 06:59 06:59 06:59 Intake Total 4653 4607 680 Balance 4653 4607 680 Weight 60.1 kg 65.4 kg General appearance: PRESENT: no acute distress Respiratory exam: PRESENT: clear to auscultation teddy. ABSENT: rales, rhonchi, wheezes Cardiovascular exam: PRESENT: RRR. ABSENT: diastolic murmur, rubs, systolic murmur GI/Abdominal exam: PRESENT: tenderness Neurological exam: PRESENT: alert, awake, oriented to person, oriented to place, oriented to time, oriented to situation Results Laboratory Results: 08/16/18 12:00 08/17/18 06:33 08/20/18 04:45 Lipase 609.5 H Assessment and Plan - Diagnosis (1) Hypoglycemia Is this a current diagnosis for this admission?: Yes Plan: Resolved (2) Acute on chronic pancreatitis Is this a current diagnosis for this admission?: Yes Plan: Clinically patient is improving. But her lipase has increased. (3) CKD (chronic kidney disease) stage 3, GFR 30-59 ml/min Is this a current diagnosis for this admission?: Yes Plan: Her creatinine is today within normal limits. (4) Type 2 diabetes mellitus Is this a current diagnosis for this admission?: Yes Plan: I will hold her oral hypoglycemic agent and keep her on sliding scale since patient is n.p.o. (5) COPD (chronic obstructive pulmonary disease) Qualifiers: Emphysema type: unspecified Is this a current diagnosis for this admission?: Yes Plan: We will put her on PRN bronchodilators. (6) Hypertension Qualifiers: Hypertension type: essential hypertension Qualified Code(s): I10 - Essential (primary) hypertension Is this a current diagnosis for this admission?: Yes Plan: Continue her home medication (7) Hyperlipidemia Qualifiers: Hyperlipidemia type: unspecified Qualified Code(s): E78.5 - Hyperlipidemia, unspecified Is this a current diagnosis for this admission?: Yes Plan: Continue home medication (8) Tobacco dependence Is this a current diagnosis for this admission?: Yes Plan: Patient counseled and encouraged to quit smoking and she is put on nicotine patch
[2018-08-20] MEDS: TEMAZEPAM 15 MG CAPSULE PO PRN (21:25)
[2018-08-21] MEDS: HYDROMORPHONE HCL INJ/PF 2 MG/ML AMPULE IV PRN ×5 (00:36→22:05)
[2018-08-21] MEDS: NORMAL SALINE 1000 ML 1,000 ML IV PRN ×3 (00:36→20:20)
[2018-08-21] MEDS: HYDRALAZINE HCL 50 MG TABLET PO SCH ×2 (05:36→19:01)
[2018-08-21] MEDS: HEPARIN SOD (PORCINE) 5,000 UNIT/ML 1 ML SYRINGE SUBCUT SCH ×3 (05:36→22:05)
[2018-08-21] MEDS: METOPROLOL TARTRATE 100 MG TABLET PO SCH ×2 (05:36→19:02)
[2018-08-21] MEDS: PROMETHAZINE HCL INJ 25 MG/1 ML VIAL IV PRN ×3 (05:36→22:05)
[2018-08-21] MEDS: AMLODIPINE BESYLATE 10 MG TABLET PO SCH (09:36)
[2018-08-21] MEDS: GABAPENTIN 100 MG CAPSULE PO SCH ×2 (09:36→22:05)
[2018-08-21] MEDS: INSULIN LISPRO 100 UNIT/ML 3 ML VIAL SUBCUT SCH ×4 (09:36→21:48)
[2018-08-21] MEDS: LISINOPRIL 10 MG TABLET PO SCH (09:37)
[2018-08-21] MEDS: DOCUSATE SODIUM 100 MG CAPSULE PO SCH ×2 (09:37→19:02)
[2018-08-21] MEDS: FERROUS SULFATE 325 MG TABLET PO SCH (09:37)
[2018-08-21] MEDS: FAMOTIDINE 20 MG TABLET PO SCH ×2 (09:37→22:05)
[2018-08-21] MEDS: CHLORTHALIDONE 25 MG TABLET PO SCH (09:44)
--- NOTE | 2018-08-21 14:34 | PDOC PROGRESS REPORT ---
Subjective Progress Note for:: 08/21/18 Subjective:: JJ HOFFMAN is a 37 year old black female patient with past medical history of alcohol induced chronic pancreatitis, hyperlipidemia, hypertension, COPD, diabetes mellitus, tobacco dependence and chronic renal failure presented with chief complaint of nausea, vomiting, abdominal pain. Patient reports that she was in her usual baseline state of health up until 7 PM yesterday night when she started to have the above-mentioned complaints. 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 Patient denies any chills, fever, palpitation, cough, chest pain and urinary complaints. Her blood work is unremarkable except for elevated lipase level of 1500. 08/17/2018: Patient seen and examined at bedside. She is awake alert oriented. She complains she is hungry and asks for food. This morning patient has an episode of hypoglycemia which is corrected with dextrose. Her diet advanced to solid. 08/18/2018: Patient seen and examined while she is resting in bed. Patient reports that she has restful night. She finished her breakfast 100%. Yesterday her lipase was 647 today it is 2210. I will continue the hydration and pain control. And check her lipase in a.m. 08/19/2018: Patient's abdominal pain is improving but her lipase is creeping up yesterday it was 2210 today it is 2296.4. I switched her diet from solid to clear liquid. And will check her lipase tomorrow. 08/20/18: Patient seen resting in bed comfortably. I reviewed her lab and it shows that her lipase dropped to 609. Patient is still on clear liquid diet. 08/21/2018: No adverse event overnight. Her lipase is trending down her latest lipase 550. Her diet advanced to full liquid. I will check her lipase and if it further drops down we will advance it to regular diet. Reason For Visit: ACUTE ON CHRONIC PANCREATITIS Physical Exam Vital Signs: Temp Pulse Resp BP Pulse Ox 98.9 F 85 15 152/85 H 99 08/21/18 11:18 08/21/18 11:18 08/21/18 11:18 08/21/18 11:18 08/21/18 11:18 Intake & Output 08/20/18 08/21/18 08/22/18 06:59 06:59 06:59 Intake Total 4607 6483 Balance 4607 6483 Weight 65.4 kg 67.5 kg General appearance: PRESENT: no acute distress GI/Abdominal exam: PRESENT: tenderness Neurological exam: PRESENT: alert, awake, oriented to person, oriented to place, oriented to time, oriented to situation Results Laboratory Results: 08/16/18 12:00 08/17/18 06:33 08/21/18 05:57 Lipase 550.5 H Assessment and Plan - Diagnosis (1) Hypoglycemia Is this a current diagnosis for this admission?: Yes Plan: Resolved (2) Acute on chronic pancreatitis Is this a current diagnosis for this admission?: Yes Plan: Her lipase is trending down further. (3) CKD (chronic kidney disease) stage 3, GFR 30-59 ml/min Is this a current diagnosis for this admission?: Yes Plan: Her creatinine is today within normal limits. (4) Type 2 diabetes mellitus Is this a current diagnosis for this admission?: Yes Plan: I will hold her oral hypoglycemic agent and keep her on sliding scale since patient is n.p.o. (5) COPD (chronic obstructive pulmonary disease) Qualifiers: Emphysema type: unspecified Is this a current diagnosis for this admission?: Yes Plan: We will put her on PRN bronchodilators. (6) Hypertension Qualifiers: Hypertension type: essential hypertension Qualified Code(s): I10 - Essential (primary) hypertension Is this a current diagnosis for this admission?: Yes Plan: Continue her home medication (7) Hyperlipidemia Qualifiers: Hyperlipidemia type: unspecified Qualified Code(s): E78.5 - Hyperlipidemia, unspecified Is this a current diagnosis for this admission?: Yes Plan: Continue home medication (8) Tobacco dependence Is this a current diagnosis for this admission?: Yes Plan: Patient counseled and encouraged to quit smoking and she is put on nicotine patch
[2018-08-21] MEDS ORDERED: INSULIN LISPRO 100 UNIT/ML 3 ML VIAL ONE (16:52)
[2018-08-21] MEDS ORDERED: INSULIN LISPRO 100 UNIT/ML 3 ML VIAL SUBCUT ONE (17:30)
[2018-08-21] MEDS: TEMAZEPAM 15 MG CAPSULE PO PRN (22:04)
[2018-08-22] MEDS: NORMAL SALINE 1000 ML 1,000 ML IV PRN ×3 (04:19→09:43)
[2018-08-22] MEDS: HEPARIN SOD (PORCINE) 5,000 UNIT/ML 1 ML SYRINGE SUBCUT SCH ×3 (05:08→21:46)
[2018-08-22] MEDS: PROMETHAZINE HCL INJ 25 MG/1 ML VIAL IV PRN ×3 (05:08→21:47)
[2018-08-22] MEDS: HYDROMORPHONE HCL INJ/PF 2 MG/ML AMPULE IV PRN ×4 (05:08→21:47)
[2018-08-22] MEDS: HYDRALAZINE HCL 50 MG TABLET PO SCH ×2 (05:09→17:16)
[2018-08-22] MEDS: METOPROLOL TARTRATE 100 MG TABLET PO SCH ×2 (05:10→17:17)
[2018-08-22] MEDS: INSULIN LISPRO 100 UNIT/ML 3 ML VIAL SUBCUT SCH ×4 (07:53→21:46)
[2018-08-22] MEDS: DOCUSATE SODIUM 100 MG CAPSULE PO SCH ×2 (09:33→17:17)
[2018-08-22] MEDS: LISINOPRIL 10 MG TABLET PO SCH (09:33)
[2018-08-22] MEDS: FERROUS SULFATE 325 MG TABLET PO SCH (09:33)
[2018-08-22] MEDS: GABAPENTIN 100 MG CAPSULE PO SCH ×2 (09:34→21:47)
[2018-08-22] MEDS: AMLODIPINE BESYLATE 10 MG TABLET PO SCH (09:34)
[2018-08-22] MEDS: FAMOTIDINE 20 MG TABLET PO SCH ×2 (09:34→21:47)
[2018-08-22] MEDS: CHLORTHALIDONE 25 MG TABLET PO SCH (09:57)
--- NOTE | 2018-08-22 14:22 | PDOC PROGRESS REPORT ---
Subjective Progress Note for:: 08/22/18 Subjective:: This is a 37 yr old female with a PMH of chronic pancreatitis, hyperlipidemia, hypertension, COPD, diabetes mellitus, tobacco dependence and chronic renal failure presented with chief complaint of nausea, vomiting, abdominal pain. She was admitted for acute on chronic pancreatitis. Patient has had slow but gradual improvement. She is currently on a full liquid diet. She has been complaining that she is having abdominal pain but says that this is more because she is hungry not because her diet is being advanced. She has been getting IV Dilaudid overnight. Discussed in length about how pancreatitis is managed and that the goal is for her to require less IV medications if she will be continued to be advanced on her diet. She does say she has chronic abdominal pain at her baseline. Will advance to a soft diet today if she continues to tolerate a full liquid diet this morning. Increase dose of Neurontin and will decrease IV Dilaudid. Hold chlorthalidone. Reason For Visit: ACUTE ON CHRONIC PANCREATITIS Physical Exam Vital Signs: Temp Pulse Resp BP Pulse Ox 99.2 F 87 16 145/89 H 100 08/22/18 10:16 08/22/18 10:16 08/22/18 10:16 08/22/18 10:16 08/22/18 10:16 Intake & Output 08/21/18 08/22/18 08/23/18 06:59 06:59 06:59 Intake Total 6483 3693 1000 Balance 6483 3693 1000 Weight 148 lb 12.992 oz 148 lb 2.41 oz General appearance: PRESENT: no acute distress, well-developed, well-nourished Head exam: PRESENT: atraumatic, normocephalic Eye exam: PRESENT: conjunctiva pink, EOMI, PERRLA. ABSENT: scleral icterus Ear exam: PRESENT: normal external ear exam Mouth exam: PRESENT: moist, tongue midline Neck exam: ABSENT: carotid bruit, JVD, lymphadenopathy, thyromegaly Respiratory exam: PRESENT: clear to auscultation teddy. ABSENT: rales, rhonchi, wheezes Cardiovascular exam: PRESENT: RRR. ABSENT: diastolic murmur, rubs, systolic murmur Pulses: PRESENT: normal dorsalis pedis pul GI/Abdominal exam: PRESENT: normal bowel sounds, soft, tenderness - Mild direct epigastric tenderness, negative rebound. ABSENT: distended, guarding, mass, organolmegaly, rebound Rectal exam: PRESENT: deferred Extremities exam: PRESENT: full ROM. ABSENT: calf tenderness, clubbing, pedal edema Neurological exam: PRESENT: alert, awake, oriented to person, oriented to place, oriented to time, oriented to situation, CN II-XII grossly intact. ABSENT: motor sensory deficit Results Laboratory Results: 08/16/18 12:00 08/17/18 06:33 08/22/18 06:00 Lipase 509.6 H Assessment and Plan - Diagnosis (1) Acute on chronic pancreatitis Is this a current diagnosis for this admission?: Yes Plan: Will advance to a soft diet today if she continues to tolerate a full liquid diet this morning. Increase dose of Neurontin and will decrease IV Dilaudid. Continue oxycodone. Hold chlorthalidone. Patient does admit to a history of heavy alcohol drinking in the past. (2) CKD (chronic kidney disease) Is this a current diagnosis for this admission?: Yes Plan: Last creatinine at baseline. Repeat BMP. (3) COPD (chronic obstructive pulmonary disease) Qualifiers: Emphysema type: unspecified Is this a current diagnosis for this admission?: Yes Plan: Not in exacerbation. Breathing treatments as needed. (4) Hypertension Qualifiers: Hypertension type: essential hypertension Qualified Code(s): I10 - Essential (primary) hypertension Is this a current diagnosis for this admission?: Yes Plan: Continue metoprolol and lisinopril. Hold chlorthalidone in the setting of recurrent pancreatitis. (5) IDDM (insulin dependent diabetes mellitus) Is this a current diagnosis for this admission?: Yes Plan: Resume Lantus at lower dose of 10 units at bedtime. - Time Time Spent with patient: 25-34 minutes
[2018-08-22] MEDS: NICOTINE 14 MG/24 HR PATCH.TD24 TD PRN (14:35)
[2018-08-22 15:15] LABS: ABSOLUTE BASOPHILS # (AUTO) 0.1 10^3/uL (0.0-0.2); ABSOLUTE EOSINOPHILS # (AUTO) 0.1 10^3/uL (0.0-0.6); ABSOLUTE MONOCYTES (AUTO) 0.6 10^3/uL (0.1-1.4); ABSOLUTE NEUT (AUTO) 5.4 10^3/uL (1.7-8.2); BASOPHILS % (AUTO) 0.6 % (0-2); EOSINOPHILS % (AUTO) 1.7 % (0-6); HEMOGLOBIN 8.7 g/dL (12.0-15.5); LYMPHOCYTES % (AUTO) 24.7 % (13-45); MEAN CORPUSCULAR HGB CONC 33.4 g/dL (32.0-36.0); MEAN CORPUSCULAR VOLUME 87 fl (80-97); MONOCYTES % (AUTO) 7.4 % (3-13); PLATELET COUNT 292 10^3/uL (150-450); RED CELL DISTRIBUTION WIDTH 14.6 % (11.5-14.0); SEGMENTED NEUTROPHILS % (AUTO) 65.6 % (42-78); TOTAL CELLS COUNTED % (AUTO) 100 %; WHITE BLOOD COUNT 8.2 10^3/uL (4.0-10.5)
[2018-08-22 15:32] LABS: ANION GAP 6 (5-19); BLOOD UREA NITROGEN 11 mg/dL (7-20); CALCIUM 8.9 mg/dL (8.4-10.2); CARBON DIOXIDE 22 mmol/L (22-30); CHLORIDE 108 mmol/L (98-107); GLUCOSE 330 mg/dL (75-110); POTASSIUM 4.4 mmol/L (3.6-5.0); SODIUM 136.1 mmol/L (137-145)
[2018-08-22] MEDS: TEMAZEPAM 15 MG CAPSULE PO PRN (21:47)
[2018-08-22] MEDS ORDERED: INSULIN GLARGINE,HUM.REC.ANLOG 1,000 UNIT/10 ML VIAL SUBCUT SCH (22:00)
[2018-08-23] MEDS: HYDRALAZINE HCL 50 MG TABLET PO SCH ×2 (05:56→17:27)
[2018-08-23] MEDS: HEPARIN SOD (PORCINE) 5,000 UNIT/ML 1 ML SYRINGE SUBCUT SCH ×3 (05:56→22:50)
[2018-08-23] MEDS: NORMAL SALINE 1000 ML 1,000 ML IV PRN (05:57)
[2018-08-23] MEDS: PROMETHAZINE HCL INJ 25 MG/1 ML VIAL IV PRN ×2 (05:57→22:57)
[2018-08-23] MEDS: METOPROLOL TARTRATE 100 MG TABLET PO SCH ×2 (05:57→17:27)
[2018-08-23] MEDS: HYDROMORPHONE HCL INJ/PF 2 MG/ML AMPULE IV PRN ×3 (06:38→22:57)
[2018-08-23] MEDS: INSULIN LISPRO 100 UNIT/ML 3 ML VIAL SUBCUT SCH ×4 (07:23→22:55)
[2018-08-23] MEDS: FAMOTIDINE 20 MG TABLET PO SCH ×2 (09:36→22:56)
[2018-08-23] MEDS: DOCUSATE SODIUM 100 MG CAPSULE PO SCH ×2 (09:36→17:27)
[2018-08-23] MEDS: CHLORTHALIDONE 25 MG TABLET PO SCH (09:36)
[2018-08-23] MEDS: GABAPENTIN 100 MG CAPSULE PO SCH ×2 (09:36→22:56)
[2018-08-23] MEDS: LISINOPRIL 10 MG TABLET PO SCH (09:36)
[2018-08-23] MEDS: AMLODIPINE BESYLATE 10 MG TABLET PO SCH (09:36)
[2018-08-23] MEDS: FERROUS SULFATE 325 MG TABLET PO SCH (09:36)
--- NOTE | 2018-08-23 16:08 | PDOC PROGRESS REPORT ---
Subjective Progress Note for:: 08/23/18 Subjective:: This is a 37 yr old female with a PMH of chronic pancreatitis, hyperlipidemia, hypertension, COPD, diabetes mellitus, tobacco dependence and chronic renal failure presented with chief complaint of nausea, vomiting, abdominal pain. She was admitted for acute on chronic pancreatitis. 08/22: Patient has had slow but gradual improvement. She is currently on a full liquid diet. She has been complaining that she is having abdominal pain but says that this is more because she is hungry not because her diet is being advanced. She has been getting IV Dilaudid overnight. Discussed in length about how pancreatitis is managed and that the goal is for her to require less IV medications if she will be continued to be advanced on her diet. She does say she has chronic abdominal pain at her baseline. Will advance to a soft diet today if she continues to tolerate a full liquid diet this morning. Increase dose of Neurontin and will decrease IV Dilaudid. Hold chlorthalidone. 08/23: No acute event overnight. She appears more comfortable today. She says her abdominal pain continued to improve towards baseline. Will advance to a full regular diet today. Reason For Visit: ACUTE ON CHRONIC PANCREATITIS Physical Exam Vital Signs: Temp Pulse Resp BP Pulse Ox 98.2 F 83 15 109/63 99 08/23/18 11:14 08/23/18 11:14 08/23/18 11:14 08/23/18 11:14 08/23/18 11:14 Intake & Output 08/22/18 08/23/18 08/24/18 06:59 06:59 06:59 Intake Total 3693 6182 Balance 3693 6182 Weight 148 lb 2.41 oz 145 lb 4.554 oz General appearance: PRESENT: no acute distress, well-developed, well-nourished Head exam: PRESENT: atraumatic, normocephalic Eye exam: PRESENT: conjunctiva pink, EOMI, PERRLA. ABSENT: scleral icterus Ear exam: PRESENT: normal external ear exam Mouth exam: PRESENT: moist, tongue midline Neck exam: ABSENT: carotid bruit, JVD, lymphadenopathy, thyromegaly Respiratory exam: PRESENT: clear to auscultation teddy. ABSENT: rales, rhonchi, wheezes Cardiovascular exam: PRESENT: RRR. ABSENT: diastolic murmur, rubs, systolic murmur Pulses: PRESENT: normal dorsalis pedis pul GI/Abdominal exam: PRESENT: normal bowel sounds, soft, tenderness - mild direct epigastric tenderness. ABSENT: distended, guarding, mass, organolmegaly, rebound Rectal exam: PRESENT: deferred Extremities exam: PRESENT: full ROM. ABSENT: calf tenderness, clubbing, pedal edema Neurological exam: PRESENT: alert, awake, oriented to person, oriented to place, oriented to time, oriented to situation, CN II-XII grossly intact. ABSENT: motor sensory deficit Results Laboratory Results: 08/22/18 14:40 08/22/18 14:40 Assessment and Plan - Diagnosis (1) Acute on chronic pancreatitis Is this a current diagnosis for this admission?: Yes Plan: Patient does admit to a history of heavy alcohol drinking in the past. 08/22: Will advance to a soft diet today if she continues to tolerate a full liquid diet this morning. Increase dose of Neurontin and will decrease IV Dilaudid. Continue oxycodone. Hold chlorthalidone. 08/23: Proving. Advised to full regular diet today. (2) CKD (chronic kidney disease) Is this a current diagnosis for this admission?: Yes Plan: Creatinine at baseline. (3) COPD (chronic obstructive pulmonary disease) Qualifiers: Emphysema type: unspecified Is this a current diagnosis for this admission?: Yes Plan: Not in exacerbation. Breathing treatments as needed. (4) Hypertension Qualifiers: Hypertension type: essential hypertension Qualified Code(s): I10 - Essential (primary) hypertension Is this a current diagnosis for this admission?: Yes Plan: Continue metoprolol and lisinopril. Chlorthalidone held in the setting of recurrent pancreatitis. (5) IDDM (insulin dependent diabetes mellitus) Is this a current diagnosis for this admission?: Yes Plan: 08/22: Resume Lantus at lower dose of 10 units at bedtime. 08/23: Increase Lantus to 15 u HS.
[2018-08-23] MEDS ORDERED: INSULIN REG, HUMAN 100 UNIT/ML 3 ML VIAL (PYX) ONE (22:44)
[2018-08-23] MEDS: INSULIN GLARGINE,HUM.REC.ANLOG 1,000 UNIT/10 ML VIAL SUBCUT SCH (22:55)
[2018-08-23] MEDS ORDERED: INSULIN REG, HUMAN 100 UNIT/ML 3 ML VIAL IV ONE (23:00)
[2018-08-24] MEDS: NORMAL SALINE 1000 ML 1,000 ML IV PRN ×2 (05:50→09:53)
[2018-08-24] MEDS: METOPROLOL TARTRATE 100 MG TABLET PO SCH ×2 (05:51→18:32)
[2018-08-24] MEDS: HYDRALAZINE HCL 50 MG TABLET PO SCH ×2 (05:51→18:32)
[2018-08-24] MEDS: HYDROMORPHONE HCL INJ/PF 2 MG/ML AMPULE IV PRN ×2 (05:52→12:37)
[2018-08-24 06:59] LABS: ABSOLUTE BASOPHILS # (AUTO) 0.1 10^3/uL (0.0-0.2); ABSOLUTE EOSINOPHILS # (AUTO) 0.2 10^3/uL (0.0-0.6); ABSOLUTE LYMPHOCYTES (AUTO) 2.3 10^3/uL (0.5-4.7); ABSOLUTE MONOCYTES (AUTO) 0.7 10^3/uL (0.1-1.4); ABSOLUTE NEUT (AUTO) 4.8 10^3/uL (1.7-8.2); BASOPHILS % (AUTO) 0.8 % (0-2); EOSINOPHILS % (AUTO) 2.2 % (0-6); HEMATOCRIT 26.2 % (36.0-47.0); HEMOGLOBIN 8.7 g/dL (12.0-15.5); LYMPHOCYTES % (AUTO) 28.3 % (13-45); MEAN CORPUSCULAR HEMOGLOBIN 28.8 pg (27.0-33.4); MEAN CORPUSCULAR HGB CONC 33.1 g/dL (32.0-36.0); MEAN CORPUSCULAR VOLUME 87 fl (80-97); MONOCYTES % (AUTO) 8.6 % (3-13); PLATELET COUNT 291 10^3/uL (150-450); RED BLOOD COUNT 3.01 10^6/uL (3.72-5.28); RED CELL DISTRIBUTION WIDTH 14.5 % (11.5-14.0); SEGMENTED NEUTROPHILS % (AUTO) 60.1 % (42-78); TOTAL CELLS COUNTED % (AUTO) 100 %; WHITE BLOOD COUNT 8.1 10^3/uL (4.0-10.5)
[2018-08-24] MEDS: HEPARIN SOD (PORCINE) 5,000 UNIT/ML 1 ML SYRINGE SUBCUT SCH ×3 (06:59→21:33)
[2018-08-24] MEDS: INSULIN LISPRO 100 UNIT/ML 3 ML VIAL SUBCUT SCH ×4 (07:01→21:33)
[2018-08-24 07:29] LABS: ANION GAP 6 (5-19); BLOOD UREA NITROGEN 19 mg/dL (7-20); CARBON DIOXIDE 26 mmol/L (22-30); CHLORIDE 107 mmol/L (98-107); GLUCOSE 227 mg/dL (75-110); POTASSIUM 4.2 mmol/L (3.6-5.0); SODIUM 138.7 mmol/L (137-145)
[2018-08-24] MEDS: FERROUS SULFATE 325 MG TABLET PO SCH (09:54)
[2018-08-24] MEDS: FAMOTIDINE 20 MG TABLET PO SCH ×2 (09:54→21:34)
[2018-08-24] MEDS: GABAPENTIN 100 MG CAPSULE PO SCH ×2 (09:54→21:34)
[2018-08-24] MEDS: DOCUSATE SODIUM 100 MG CAPSULE PO SCH ×2 (09:54→18:32)
[2018-08-24] MEDS: CHLORTHALIDONE 25 MG TABLET PO SCH (09:54)
[2018-08-24] MEDS: AMLODIPINE BESYLATE 10 MG TABLET PO SCH (09:54)
[2018-08-24] MEDS: LISINOPRIL 10 MG TABLET PO SCH (09:55)
[2018-08-24] MEDS: PROMETHAZINE HCL INJ 25 MG/1 ML VIAL IV PRN (18:47)
[2018-08-24] MEDS: OXYCODONE-ACETAMINOPHEN 5-325 MG TABLET PO PRN (18:47)
[2018-08-24] MEDS: INSULIN GLARGINE,HUM.REC.ANLOG 1,000 UNIT/10 ML VIAL SUBCUT SCH (21:34)
[2018-08-25] MEDS: NORMAL SALINE 1000 ML 1,000 ML IV PRN (01:18)
[2018-08-25] MEDS: OXYCODONE-ACETAMINOPHEN 5-325 MG TABLET PO PRN ×2 (01:18→06:11)
[2018-08-25] MEDS: PROMETHAZINE HCL INJ 25 MG/1 ML VIAL IV PRN ×2 (01:18→06:08)
[2018-08-25] MEDS: HYDRALAZINE HCL 50 MG TABLET PO SCH (06:06)
[2018-08-25] MEDS: METOPROLOL TARTRATE 100 MG TABLET PO SCH (06:07)
[2018-08-25] MEDS: HEPARIN SOD (PORCINE) 5,000 UNIT/ML 1 ML SYRINGE SUBCUT SCH (06:07)
[2018-08-25] MEDS: INSULIN LISPRO 100 UNIT/ML 3 ML VIAL SUBCUT SCH (07:37)
[2018-08-25 09:05] VITALS: BP 196/97
[2018-08-25] MEDS: AMLODIPINE BESYLATE 10 MG TABLET PO SCH (09:31)
[2018-08-25] MEDS: FERROUS SULFATE 325 MG TABLET PO SCH (09:31)
[2018-08-25] MEDS: LISINOPRIL 10 MG TABLET PO SCH (09:31)
[2018-08-25] MEDS: GABAPENTIN 100 MG CAPSULE PO SCH (09:31)
[2018-08-25] MEDS: DOCUSATE SODIUM 100 MG CAPSULE PO SCH (09:31)
[2018-08-25] MEDS: FAMOTIDINE 20 MG TABLET PO SCH (09:31)
[2018-08-25] MEDS: CHLORTHALIDONE 25 MG TABLET PO SCH (09:31)
--- NOTE | 2018-08-25 17:07 | PDOC DISCHARGE SUMMARY ---
General - Admit/Disc Date/PCP Admission Date/Primary Care Provider: 08/16/18 15:19 LYNNE OLMEDO Discharge Date: 08/24/18 - Discharge Diagnosis (1) Acute on chronic pancreatitis Is this a current diagnosis for this admission?: Yes (2) CKD (chronic kidney disease) Is this a current diagnosis for this admission?: Yes (3) COPD (chronic obstructive pulmonary disease) Is this a current diagnosis for this admission?: Yes (4) Hypertension Is this a current diagnosis for this admission?: Yes (5) IDDM (insulin dependent diabetes mellitus) Is this a current diagnosis for this admission?: Yes - Additional Information Resuscitation Status: Full Code Prescriptions: Gabapentin [Neurontin 100 mg Capsule] 200 mg PO Q8HP PRN #30 capsule PRN Reason: Hydralazine HCl [Apresoline 50 mg Tablet] 50 mg PO Q12 #60 tablet Insulin Glargine,Hum.rec.anlog [Lantus Insulin 100 Unit/1 ml 10 ml] 17 unit SUBCUT Q12 #1 unit Insulin Aspart [Novolog Insulin (Aspart) 100 unit/mL] 10 unit SQ AC #1 unit Nicotine [Nicoderm 14 mg/24 Hr Transdermal Patch] 1 patch TD DAILY #30 patch.td24 Home Medications: Amlodipine Besylate [Norvasc 10 mg Tablet] 10 mg PO DAILY 08/04/18 Docusate Sodium [Colace 100 mg Capsule] 100 mg PO BID 08/04/18 Famotidine [Pepcid 20 mg Tablet] 20 mg PO Q12 08/04/18 Ferrous Sulfate [Feosol 325 mg Tablet] 325 mg PO DAILY 08/04/18 Lisinopril [Prinivil 40 mg Tablet] 40 mg PO DAILY 08/04/18 Metoprolol Tartrate [Lopressor 50 mg Tablet] 50 mg PO Q12 08/04/18 Pantoprazole Sodium [Protonix [address] Tablet] 40 mg PO DAILY 08/04/18 Gabapentin [Neurontin 100 mg Capsule] 200 mg PO Q8HP PRN #30 capsule 08/24/18 Nicotine [Nicoderm 14 mg/24 Hr Transdermal Patch] 1 patch TD DAILY #30 patch.td24 08/24/18 Hydralazine HCl [Apresoline 50 mg Tablet] 50 mg PO Q12 #60 tablet 08/25/18 Insulin Aspart [Novolog Insulin (Aspart) 100 unit/mL] 10 unit SQ AC #1 unit 08/25/18 Insulin Glargine,Hum.rec.anlog [Lantus Insulin 100 Unit/1 ml 10 ml] 17 unit SUBCUT Q12 #1 unit 08/25/18 History of Present Illness History of Present Illness: Admitting hospitalist;s H&P: JJ HOFFMAN is a 37 year old black female patient with past medical history of alcohol induced chronic pancreatitis, hyperlipidemia, hypertension, COPD, diabetes mellitus, tobacco dependence and chronic renal failure presented with chief complaint of nausea, vomiting, abdominal pain. Patient reports that she was in her usual baseline state of health up until 7 PM yesterday night when she started to have the above-mentioned complaints. 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 Patient denies any chills, fever, palpitation, cough, chest pain and urinary complaints. Her blood work is unremarkable except for elevated lipase level of 1500. Hospital Course Hospital Course: This is a 37 yr old female with a PMH of chronic pancreatitis, hyperlipidemia, hypertension, COPD, diabetes mellitus, tobacco dependence and chronic renal failure presented with chief complaint of nausea, vomiting, abdominal pain. She was admitted for acute on chronic pancreatitis. She was initially made n.p.o. patient started on IV fluids and IV pain medications. Patient has had slow but gradual improvement. She has been complaining that she is having abdominal pain but says that this is more because she is hungry not because her diet is being advanced. Her diet was gradually advanced and she continued to show signs of improvement. She was able to tolerate to a full regular diet. She does have some chronic abdominal pain from her chronic pancreatitis. She returned to her baseline and was comfortable and said that she was at her baseline. She was counseled in length about smoking cessation as this is an independent trigger for acute pancreatitis as well. Her chlorthalidone was also switched to hydralazine to reduce risk of drug-induced pancreatitis. She was given a confirmed appointment with GI for her recurrent pancreaittis. Physical Exam Vital Signs: Temp Pulse Resp BP Pulse Ox 98.2 F 90 14 135/79 H 98 08/24/18 15:56 08/24/18 15:56 08/24/18 15:56 08/24/18 15:56 08/24/18 15:56 Intake & Output 08/23/18 08/24/18 08/25/18 06:59 06:59 06:59 Intake Total 6182 2437 593 Balance 6182 2437 593 Weight 145 lb 4.554 oz 148 lb 2.41 oz General appearance: PRESENT: no acute distress, well-developed, well-nourished Head exam: PRESENT: atraumatic, normocephalic Eye exam: PRESENT: conjunctiva pink, EOMI, PERRLA. ABSENT: scleral icterus Ear exam: PRESENT: normal external ear exam Mouth exam: PRESENT: moist, tongue midline Neck exam: ABSENT: carotid bruit, JVD, lymphadenopathy, thyromegaly Respiratory exam: PRESENT: clear to auscultation teddy. ABSENT: rales, rhonchi, wheezes Cardiovascular exam: PRESENT: RRR. ABSENT: diastolic murmur, rubs, systolic murmur Pulses: PRESENT: normal dorsalis pedis pul GI/Abdominal exam: PRESENT: normal bowel sounds, soft. ABSENT: distended, guarding, mass, organolmegaly, rebound, tenderness Rectal exam: PRESENT: deferred Neurological exam: PRESENT: alert, awake, oriented to person, oriented to place, oriented to time, oriented to situation, CN II-XII grossly intact. ABSENT: motor sensory deficit Results Laboratory Results: 08/24/18 06:37 08/24/18 06:37 08/24/18 08/24/18 06:37 06:37 WBC 8.1 RBC 3.01 L Hgb 8.7 L Hct 26.2 L MCV 87 MCH 28.8 MCHC 33.1 RDW 14.5 H Plt Count 291 Seg Neutrophils % 60.1 Lymphocytes % 28.3 Monocytes % 8.6 Eosinophils % 2.2 Basophils % 0.8 Absolute Neutrophils 4.8 Absolute Lymphocytes 2.3 Absolute Monocytes 0.7 Absolute Eosinophils 0.2 Absolute Basophils 0.1 Sodium 138.7 Potassium 4.2 Chloride 107 Carbon Dioxide 26 Anion Gap 6 BUN 19 Creatinine 1.15 Est GFR ( Amer) > 60 Est GFR (Non-Af Amer) 53 L Glucose 227 H Calcium 9.0 Qualifiers - * PATIENT BEING DISCHARGED WITH ANY OF THE FOLLOWING DIAGNOSIS: No Acute Heart Failure - Is this a Heart Failure Patient?: No LVEF < 40%?: No- if no continue to question #3 3. Anticoagulant therapy for permanect/persistent/paraoxysmal Afib or Aflutter: N/A
--- NOTE | 2018-08-25 17:08 | Progress Note ---
Provider Note Provider Note: No acute event overnight. She denies acute complaints. She continue to tolerate regular diet well. She was not able to go home last night as her mother is coming back this morning and she does not have the keys to their house. Assessment and plan unchanged. Proceed with discharge today.
== END 2018-08-25 10:03 | disposition home or self-care (01) | DRG 440 ==
LOC: ER 09:43 → OBSVTOIN 15:19 → EH 15:19 → 4N 20:40
PROVIDERS: ADMIT Internal Medicine; ATTEND Internal Medicine
DX: K85.20 Alcohol induced acute pancreatitis without necrosis or infection (principal); K86.0 Alcohol-induced chronic pancreatitis; F10.21 Alcohol dependence, in remission; J44.9 Chronic obstructive pulmonary disease, unspecified; F17.210 Nicotine dependence, cigarettes, uncomplicated; F12.90 Cannabis use, unspecified, uncomplicated; E78.5 Hyperlipidemia, unspecified; G40.909 Epilepsy, unspecified, not intractable, without status epilepticus; Z79.4 Long term (current) use of insulin; E11.22 Type 2 diabetes mellitus with diabetic chronic kidney disease; I12.9 Hypertensive chronic kidney disease with stage 1 through stage 4 chronic kidney disease, or unspecified chronic kidney disease; Z88.5 Allergy status to narcotic agent; N18.3 Chronic kidney disease, stage 3 (moderate); E11.649 Type 2 diabetes mellitus with hypoglycemia without coma
CPT/HCPCS: 36415; 80048; 80053; 80061; 80307; 81001; 82962; 83036; 83690; 85025; 96361; 96372; 96374; 96375; 99285; J1170; J1644; J1815; J2405; J2550; J3490; J7030

== ENCOUNTER 2018-10-09 10:10 | Inpatient (IN) | payer MEDICAID ==
--- NOTE | 2018-10-09 10:24 | ER Document Report ---
ED General - General Chief Complaint: Unresponsive Stated Complaint: UNRESPONSIVE Time Seen by Provider: 10/09/18 10:21 Notes: patient presents from waiting room unresponsive. The nursing staff appeared to recognize her and states that she usually has diabetic ketoacidosis. Unknown if she overdosed. She is brought to the trauma room essentially unresponsive. TRAVEL OUTSIDE OF THE [place] IN LAST 30 DAYS: No - Related Data Allergies/Adverse Reactions: hydrocodone [From [place]] Allergy (Verified 09/20/18 15:39) morphine Allergy (Verified 09/20/18 15:39) Past Medical History - General Cannot obtain history due to: Altered mental status - Social History Smoking Status: Current Every Day Smoker Family History: Reviewed & Not Pertinent, DM, Hypertension - Past Medical History Cardiac Medical History: Reports: Hx Hypercholesterolemia, Hx Hypertension Denies: Hx Congestive Heart Failure, Hx Heart Attack Pulmonary Medical History: Reports: Hx COPD Denies: Hx Asthma Neurological Medical History: Reports: Hx Seizures. Denies: Hx Migraine Endocrine Medical History: Reports: Hx Diabetes Mellitus Type 1, Hx Diabetes Mellitus Type 2. Denies: Hx Hyperthyroidism, Hx Hypothyroidism Renal/ Medical History: Reports: Hx Renal Insufficiency. Denies: Hx End Stage Renal Disease, Hx Peritoneal Dialysis GI Medical History: Reports: Hx Pancreatitis. Denies: Hx Gastroesophageal Reflux Disease, Hx Hepatitis, Hx Hiatal Hernia Musculoskeletal Medical History: Denies Hx Arthritis Skin Medical History: Psychiatric Medical History: Denies: Hx Dementia, Hx Depression Infectious Medical History: Denies: Hx Hepatitis Past Surgical History: Reports: Hx Section - x3, Hx Hysterectomy Review of Systems - Review of Systems Notes: REVIEW OF SYSTEMS G unresponsive PHYSICAL EXAMINATION General: Rebound Head: Atraumatic, normocephalic suture laceration right face. ENT: Mouth normal, oropharynx by no exudates or tonsillar enlargement Eyes: Conjunctiva normal, pupils equal, lids normal Neck: No JVD, supple, no guarding CVS: Normal rate, regular rhythm, no murmurs Resp: Effort GI: Nondistended, soft, no tenderness to palpation, no rebound or guarding Ext: No deformities, no edema, normal range of motion in upper and lower ext Back: No CVA or midline TTP Skin: No rash, warm Lymphatic: No lymphadeopathy noted Neuro: Onset a sternal rub Physical Exam - Vital signs Vitals: Resp BP Pulse Ox 13 126/77 H 100 10/09/18 10:20 10/09/18 10:20 10/09/18 10:20 Course - Re-evaluation Re-evalutation: 10/09/18 10:23 Diabetic patient with poor control history of DKA presents with unresponsiveness. Initially I suspected a nearrespiratory arrest that she was not breathing well. In the course of evaluating her we did a blood sugar, and because she had difficult IV access I placed an intraosseous in her right humerus. This resulted in near immediate screaming and responsiveness. The patient is now arousable. Her vital signs are actually quite normal. She will be getting lidocaine her I/O for the pain, followed by 1 L bolus. We will check her for DKA and other intoxications. 10/09/18 13:31 Patient labs showed hyperglycemia with an anion gap consistent with diabetic ketoacidosis. She also probably has some acute on chronic pink otitis going on because at which she usually has. She was given further IV fluids and fentanyl. I placed a central line and removed her intraosseous line. I started her on insulin bolus and drip, and discussed her case with Dr. Aldo Ramirez for admission to the [facility]. - Vital Signs Vital signs: Temp Pulse Resp BP Pulse Ox 98.1 F 15 134/62 H 100 10/09/18 13:05 10/09/18 13:05 10/09/18 13:05 10/09/18 13:05 - Laboratory Result Diagrams: 10/09/18 10:45 10/09/18 10:45 Laboratory results interpreted by me: 10/09/18 10/09/18 10/09/18 10:45 10:45 10:45 WBC 14.2 H RBC 3.11 L Hgb 8.8 L Hct 29.6 L MCHC 29.7 L RDW 16.0 H Lymph % (Auto) 8.0 L [place] % (Auto) 2.4 L Absolute Neuts (auto) 12.6 H Seg Neutrophils % 88.6 H Sodium 126.8 L Potassium 6.1 H* Chloride 93 L Carbon Dioxide 7 L* Anion Gap 27 H BUN 50 H Creatinine 2.55 H Est GFR ( Amer) 25 L Est GFR (MDRD) Non-Af 21 L Glucose 894 H* Lipase 582.0 H Urine Protein Urine Glucose (UA) Urine Ketones 10/09/18 11:10 WBC RBC Hgb Hct MCHC RDW Lymph % (Auto) [place] % (Auto) Absolute Neuts (auto) Seg Neutrophils % Sodium Potassium Chloride Carbon Dioxide Anion Gap BUN Creatinine Est GFR ( Amer) Est GFR (MDRD) Non-Af Glucose Lipase Urine Protein 30 H Urine Glucose (UA) >=500 H Urine Ketones 80 H - EKG Interpretation by Nd EKG shows normal: Sinus rhythm Rate: Normal, Tachycardia Rhythm: NSR Procedures - Central Line Left Internal jugular Consent obtained: Yes Central line pre-insertion: Sterile PPE donned, Betadine prep applied Central line lumen type: Triple Anesthetic type: 1% Lidocaine mL's of anesthesia: 5 Ultrasound guided: Yes Line secured with sutures: Yes Central line post-insertion: Blood return from lumens, Biopatch applied, Sutured, Sterile dressing applied, Position confirmed w/ CXR Number of attempts: 1 Complications: No - Additional Procedures IO insertion Time performed: 10:22 - Right humeral IO ChloraPrep, flushed, secured in usual fashion Additional Procedures: IO insertion IV insertion Time performed: 10:45 Additional Procedures: IV insertion - IV access attempted on the right deep brachial vein under ultrasound guidance. Unsuccessful. Left femoral vein puncture was successful with an 18-gauge needle to recover blood. Pressure was held. Critical Care Note - Critical Care Note Total time excluding time spent on procedures (mins): 71 Comments: The above patient is critically ill. Not including procedures, but including direct re-evaluations, speaking with patient and/or consultants, interpreting results, and documenting, I spent the total amount of minute listed listed above on critical care time Discharge - Discharge Clinical Impression: Diabetic ketoacidosis Qualifiers: Diabetes mellitus type: type 1 Diabetes mellitus complication detail: with coma Qualified Code(s): E10.11 - Type 1 diabetes mellitus with ketoacidosis with coma Condition: Critical Disposition: ADMITTED INPATIENT Admitting Provider: Cristiane (Hospitalist) Unit Admitted: [facility]
[2018-10-09 10:58] LABS: ABSOLUTE BASOPHILS # (AUTO) 0.1 10^3/uL (0.0-0.2); ABSOLUTE LYMPHOCYTES (AUTO) 1.1 10^3/uL (0.5-4.7); ABSOLUTE MONOCYTES (AUTO) 0.3 10^3/uL (0.1-1.4); ABSOLUTE NEUT (AUTO) 12.6 10^3/uL (1.7-8.2); HEMATOCRIT 29.6 % (36.0-47.0); HEMOGLOBIN 8.8 g/dL (12.0-15.5); MEAN CORPUSCULAR HEMOGLOBIN 28.3 pg (27.0-33.4); MEAN CORPUSCULAR HGB CONC 29.7 g/dL (32.0-36.0); MONOCYTES % (AUTO) 2.4 % (3-13); PLATELET COUNT 390 10^3/uL (150-450); RED BLOOD COUNT 3.11 10^6/uL (3.72-5.28); SEGMENTED NEUTROPHILS % (AUTO) 88.6 % (42-78); TOTAL CELLS COUNTED % (AUTO) 100 %; WHITE BLOOD COUNT 14.2 10^3/uL (4.0-10.5)
[2018-10-09] MEDS ORDERED: ONDANSETRON HCL INJ/PF 4 MG/2 ML SDV ONE (11:16)
[2018-10-09 11:18] LABS: BLOOD UREA NITROGEN 50 mg/dL (7-20); CALCIUM 8.7 mg/dL (8.4-10.2)
[2018-10-09] MEDS: NORMAL SALINE 1000 ML 1,000 ML IV PRN ×6 (11:20→22:27)
[2018-10-09 11:23] LABS: CHLORIDE 93 mmol/L (98-107)
[2018-10-09 11:32] LABS: ANION GAP 27 (5-19)
[2018-10-09 11:35] LABS: AMORPHOUS SEDIMENT,URINE TRACE /HPF; APPEARANCE,URINE CLEAR; BILIRUBIN,URINE NEGATIVE (NEGATIVE); COLOR,URINE STRAW; GLUCOSE, URINE >=500 mg/dL (NEGATIVE); KETONES,URINE 80 mg/dL (NEGATIVE); LEUKOCYTE ESTERASE,URINE NEGATIVE (NEGATIVE); NITRITE,URINE NEGATIVE (NEGATIVE); PROTEIN,URINE 30 mg/dL (NEGATIVE); URINE SPECIFIC GRAVITY 1.017; UROBILINOGEN,URINE NEGATIVE mg/dL (<2.0)
[2018-10-09 11:35] LABS: MEAN CORPUSCULAR VOLUME 95 fl (80-97)
[2018-10-09 11:37] LABS: CARBON DIOXIDE 7 mmol/L (22-30); GLUCOSE 894 mg/dL (75-110); POTASSIUM 6.1 mmol/L (3.6-5.0)
[2018-10-09] MEDS ORDERED: INSULIN REG, HUMAN 100 UNIT/ML 3 ML VIAL (PYX) IV ONE ×2 (11:44)
[2018-10-09 11:48] LABS: URINE AMPHETAMINES SCREEN NEGATIVE; URINE BARBITURATES SCREEN NEGATIVE; URINE BENZODIAZEPINES SCREEN NEGATIVE; URINE COCAINE SCREEN NEGATIVE; URINE MARIJUANA (THC) SCREEN NEGATIVE; URINE METHADONE SCREEN NEGATIVE; URINE PHENCYCLIDINE SCREEN NEGATIVE
[2018-10-09] MEDS ORDERED: FENTANYL CITRATE INJ/PF 100 MCG/2 ML AMPUL IV ONE (11:57)
--- NOTE | 2018-10-09 13:07 | RADIOLOGY REPORT (SQ) ---
EXAM DESCRIPTION: CHEST SINGLE VIEW COMPLETED DATE/TIME: 10/09/2018 12:59 pm REASON FOR STUDY: CL COMPARISON: 09/23/2018. EXAM PARAMETERS: NUMBER OF VIEWS: One view. TECHNIQUE: Single frontal radiographic view of the chest acquired. RADIATION DOSE: NA LIMITATIONS: None. FINDINGS: LUNGS AND PLEURA: No opacities, masses or pneumothorax. No pleural effusion. MEDIASTINUM AND HILAR STRUCTURES: No masses. Contour normal. HEART AND VASCULAR STRUCTURES: Heart normal in size. Normal vasculature. BONES: No acute findings. HARDWARE: Central line on the left side. Tip in the region of the brachiocephalic vein. OTHER: No other significant finding. IMPRESSION: CENTRAL LINE DESCRIBED. NO PNEUMOTHORAX. NO ACUTE RADIOGRAPHIC FINDING IN THE CHEST . TECHNICAL DOCUMENTATION: JOB ID: [id number] [email or web address]- All Rights Reserved Reading location - IP/workstation name: [email or web address]
[2018-10-09] MEDS ORDERED: GLUCAGON,HUMAN RECOMB 1 MG INJ IM PRN (13:23)
[2018-10-09] MEDS ORDERED: DEXTROSE 40% GEL 15 GM TUBE PO PRN ×4 (13:23→13:24)
[2018-10-09] MEDS ORDERED: DEXTROSE 50%-WATER 25 GM/50 ML DISP.SYRIN IV PRN ×4 (13:23→13:24)
[2018-10-09] MEDS ORDERED: GLUCAGON,HUMAN RECOMB 1 MG INJ SUBCUT PRN (13:24)
--- NOTE | 2018-10-09 13:47 | PDOC H&P ---
History of Present Illness Patient complains of: abdominal pain History of Present Illness: JJ HOFFMAN is a 38 year old female history of uncontrolled diabetes, chronic pancreatitis and frequent hospitalizations for DKA and acute and chronic pancreatitis who presented with abdominal pain. Patient was just recently discharged and was treated here for DKA. During this recent course she also had an I&D of a right facial abscess. She says she was fine on discharge until yesterday when she had recurrence of her epigastric pain and was very nauseated. She says she has not been able to eat or drink anything at home. She denies actual vomiting. Denies fever or chills. She denies shortness of breath or chest pain. In the ER, she was noted to be in severe DKA. She was reportedly initially very lethargic but on encounter she appears very awake and coherent. Past Medical History Cardiac Medical History: Reports: Hyperlipidema, Hypertension Denies: Congestive Heart Failure, Myocardial Infarction Pulmonary Medical History: Reports: Chronic Obstructive Pulmonary Disease (COPD) Denies: Asthma Neurological Medical History: Reports: Seizures Denies: Migraine Endocrine Medical History: Reports: Diabetes Mellitus Type 1, Diabetes Mellitus Type 2 Denies: Hyperthyroidism, Hypothyroidism Renal/ Medical History: Denies: End Stage Renal Disease GI Medical History: Denies: Gastroesophageal Reflux Disease, Hepatitis, Hiatal Hernia Musculoskeltal Medical History: Denies: Arthritis Skin Medical History: Psychiatric Medical History: Denies: Dementia, Depression Hematology: Reports: Anemia Denies: Bleeding Tendencies Past Surgical History Past Surgical History: Reports: Section - x3, Hysterectomy Social History Smoking Status: Unknown if Ever Smoked Frequency of Alcohol Use: Occasional Hx Recreational Drug Use: Yes Drugs: Marijuana Hx Prescription Drug Abuse: No Family History Family History: Reviewed & Not Pertinent, DM, Hypertension Parental Family History Reviewed: Yes - No premature CAD Children Family History Reviewed: No Sibling(s) Family History Reviewed.: No Medication/Allergy Home Medications: Amlodipine Besylate [Norvasc 10 mg Tablet] 10 mg PO DAILY 10/09/18 Clindamycin HCl [Cleocin 300 mg Capsule] 300 mg PO Q6 10/09/18 Insulin Aspart [Novolog Insulin (Aspart) 100 unit/mL] 10 units SQ MEALS 10/09/18 Insulin Glargine,Hum.rec.anlog [Lantus Insulin 100 Unit/1 ml 10 ml] 30 unit SQ QHS 10/09/18 Lisinopril [Prinivil 10 mg Tablet] 10 mg PO DAILY 10/09/18 Metoprolol Tartrate [Lopressor 50 mg Tablet] 50 mg PO Q12 10/09/18 Allergies/Adverse Reactions: hydrocodone [From [place]] Allergy (Verified 09/20/18 15:39) morphine Allergy (Verified 09/20/18 15:39) Review of Systems All systems: reviewed and no additional remarkable complaints except as stated - As mentioned in HPI Physical Exam Vital Signs: Temp Pulse Resp BP Pulse Ox 98.4 F 17 107/65 100 10/09/18 11:01 10/09/18 10:49 10/09/18 11:19 10/09/18 11:19 Intake & Output 10/08/18 10/09/18 10/10/18 06:59 06:59 06:59 Intake Total 1000 Balance 1000 Weight 135 lb 9.349 oz General appearance: PRESENT: no acute distress, well-developed, well-nourished Head exam: PRESENT: atraumatic, normocephalic Eye exam: PRESENT: conjunctiva pink, EOMI, PERRLA. ABSENT: scleral icterus Ear exam: PRESENT: normal external ear exam Mouth exam: PRESENT: moist, tongue midline Neck exam: ABSENT: carotid bruit, JVD, lymphadenopathy, thyromegaly Respiratory exam: PRESENT: clear to auscultation teddy. ABSENT: rales, rhonchi, wheezes Cardiovascular exam: PRESENT: RRR. ABSENT: diastolic murmur, rubs, systolic murmur Pulses: PRESENT: normal dorsalis pedis pul GI/Abdominal exam: PRESENT: normal bowel sounds, soft, tenderness - Direct epigastric tenderness, negative rebound. ABSENT: distended, guarding, mass, organolmegaly, rebound Rectal exam: PRESENT: deferred Neurological exam: PRESENT: alert, awake, oriented to person, oriented to place, oriented to time, oriented to situation, CN II-XII grossly intact. ABSENT: motor sensory deficit Results Laboratory Results: 10/09/18 10:45 10/09/18 10:45 10/09/18 10/09/18 10/09/18 10:45 10:45 10:45 WBC 14.2 H RBC 3.11 L Hgb 8.8 L Hct 29.6 L MCV 95 D MCH 28.3 MCHC 29.7 L RDW 16.0 H Plt Count 390 Seg Neutrophils % 88.6 H Sodium 126.8 L Potassium 6.1 H* Chloride 93 L Carbon Dioxide 7 L* Anion Gap 27 H BUN 50 H Creatinine 2.55 H Est GFR ( Amer) 25 L Glucose 894 H* Calcium 8.7 Lipase 582.0 H Urine Color Urine Appearance Urine pH Ur Specific [place] Urine Protein Urine Glucose (UA) Urine Ketones Urine Blood Urine Nitrite Ur Leukocyte Esterase Urine WBC (Auto) Urine RBC (Auto) 10/09/18 11:10 WBC RBC Hgb Hct MCV MCH MCHC RDW Plt Count Seg Neutrophils % Sodium Potassium Chloride Carbon Dioxide Anion Gap BUN Creatinine Est GFR ( Amer) Glucose Calcium Lipase Urine Color STRAW Urine Appearance CLEAR Urine pH 5.0 Ur Specific [place] 1.017 Urine Protein 30 H Urine Glucose (UA) >=500 H Urine Ketones 80 H Urine Blood NEGATIVE Urine Nitrite NEGATIVE Ur Leukocyte Esterase NEGATIVE Urine WBC (Auto) 0 Urine RBC (Auto) 0 Assessment and Plan - Diagnosis (1) DKA (diabetic ketoacidoses) Qualifiers: Diabetes mellitus type: type 1 Diabetes mellitus complication detail: with coma Qualified Code(s): E10.11 - Type 1 diabetes mellitus with ketoacidosis with coma Is this a current diagnosis for this admission?: Yes Plan: She is received 2 L of fluid bolus in the ER. We will give her 1/3 L bolus and will switch to normal saline at 150 cc/h. She has also been initiated on insulin drip. Accu-Cheks q. hourly and BMP every 4. (2) RONIT (acute kidney injury) Is this a current diagnosis for this admission?: Yes Plan: Her baseline creatinine is around 1-1.1. Likely prerenal in nature. IV fluid resuscitation. Repeat BMP. (3) Hypertension Qualifiers: Hypertension type: essential hypertension Qualified Code(s): I10 - Essential (primary) hypertension Is this a current diagnosis for this admission?: Yes Plan: IV hydralazine PRN for now. Resume home meds once diet is advanced. (4) Abdominal pain Qualifiers: Is this a current diagnosis for this admission?: Yes Plan: Lipase is slightly elevated. Questionable if the abdominal pain is from her DKA or a flareup of her chronic pancreatitis. Will pursue a CT of the abdomen and pelvis. - Time Time Spent with patient: 25-34 minutes
[2018-10-09] MEDS ORDERED: HYDRALAZINE HCL INJ/PF 20 MG/1 ML SDV IV PRN (13:48)
[2018-10-09] MEDS ORDERED: ONDANSETRON HCL INJ/PF 4 MG/2 ML SDV IV PRN (13:48)
[2018-10-09] MEDS: NORMAL SALINE 100 ML with INSULIN REGULAR, HUMAN 100 UNIT IV PRN ×2 (14:00)
--- NOTE | 2018-10-09 14:04 | RADIOLOGY REPORT (SQ) ---
EXAM DESCRIPTION: CT ABD/PELVIS NO ORAL OR IV COMPLETED DATE/TIME: 10/09/2018 1:53 pm REASON FOR STUDY: abdominal pain COMPARISON: 09/21/2018 TECHNIQUE: CT scan of the abdomen and pelvis performed without intravenous or oral contrast. Images reviewed with lung, soft tissue, and bone windows. Reconstructed coronal and sagittal MPR images revi ewed. All images stored on PACS. All CT scanners at this facility use dose modulation, iterative reconstruction, and/or weight based d osing when appropriate to reduce radiation dose to as low as reasonably achievable (ALARA). [facility]: Dose Right [facility]: CareDose [facility]: Dose Right [facility]: Teradose 4D [facility]: Surveying And Mapping (SAM) RADIATION DOSE: CT Rad equipment meets quality standard of care and radiation dose reduction techniq ues were employed. CTDIvol: 5.0 mGy. DLP: 256 mGy-cm.mGy. LIMITATIONS: Motion artifact mildly limits some of the images. FINDINGS: Compared to study from last month: - stable appearance without acute abnormality. - chronic pancreatitis, calcifications in the pancreatic head. No developing fluid collections. - no developing urinary or bowel obstruction or ascites or abnormal gas. -no appendicitis suggested. - clear lung bases. - [place] catheter in the bladder. IMPRESSION: Stable exam. Chronic pancreatitis. TECHNICAL DOCUMENTATION: JOB ID: [id number] Quality ID # [id number]: Final reports with documentation of one or more dose reduction techniques (e.g., Au tomated exposure control, adjustment of the mA and/or kV according to patient size, use of iterative reconstruction technique) 2010 [employer]- All Rights Reserved Reading location - IP/workstation name: [email or web address]
[2018-10-09] MEDS: HYDROMORPHONE HCL INJ/PF 2 MG/ML AMPULE IV PRN ×2 (15:07→21:44)
[2018-10-09 16:04] LABS: BLOOD UREA NITROGEN 50 mg/dL (7-20); CALCIUM 8.4 mg/dL (8.4-10.2); POTASSIUM 5.3 mmol/L (3.6-5.0)
[2018-10-09 16:33] LABS: CHLORIDE 102 mmol/L (98-107)
[2018-10-09 16:34] LABS: ANION GAP 21 (5-19)
[2018-10-09 16:35] LABS: CARBON DIOXIDE 10 mmol/L (22-30); GLUCOSE 647 mg/dL (75-110)
[2018-10-09] MEDS ORDERED: INSULIN REG, HUMAN 100 UNIT/ML 3 ML VIAL (PYX) ONE (17:27)
[2018-10-09] MEDS ORDERED: NORMAL SALINE 1000 ML 1,000 ML IV ONE (18:30)
[2018-10-09 18:32] LABS: ANION GAP 16 (5-19); BLOOD UREA NITROGEN 49 mg/dL (7-20); CALCIUM 8.2 mg/dL (8.4-10.2); CARBON DIOXIDE 13 mmol/L (22-30); CHLORIDE 107 mmol/L (98-107); GLUCOSE 361 mg/dL (75-110); POTASSIUM 4.9 mmol/L (3.6-5.0)
[2018-10-09] MEDS: POTASSI CL 20 MEQ/D5-1/2NS 1L 1000 ML IV PRN (21:04)
[2018-10-09] MEDS: HEPARIN SOD (PORCINE) 5,000 UNIT/ML 1 ML VIAL SUBCUT SCH (21:07)
[2018-10-09 23:02] LABS: ANION GAP 6 (5-19); BLOOD UREA NITROGEN 45 mg/dL (7-20); CALCIUM 7.8 mg/dL (8.4-10.2); CARBON DIOXIDE 20 mmol/L (22-30); CHLORIDE 112 mmol/L (98-107); GLUCOSE 106 mg/dL (75-110); POTASSIUM 4.3 mmol/L (3.6-5.0)
[2018-10-10] MEDS: POTASSI CL 20 MEQ/D5-1/2NS 1L 1000 ML IV PRN (01:20)
[2018-10-10] MEDS ORDERED: POTASSI CL 20 MEQ/D5-1/2NS 1L 1000 ML IV PRN (01:39)
[2018-10-10] MEDS ORDERED: POTASSI CL 20 MEQ/D5-1/2NS 1L 1000 ML IV ONE (02:45)
[2018-10-10 02:56] LABS: ANION GAP 6 (5-19); BLOOD UREA NITROGEN 41 mg/dL (7-20); CALCIUM 7.8 mg/dL (8.4-10.2); CARBON DIOXIDE 19 mmol/L (22-30); CHLORIDE 115 mmol/L (98-107); GLUCOSE 78 mg/dL (75-110); POTASSIUM 4.1 mmol/L (3.6-5.0)
[2018-10-10] MEDS: HYDROMORPHONE HCL INJ/PF 2 MG/ML AMPULE IV PRN (04:14)
[2018-10-10] MEDS: NORMAL SALINE 1000 ML 1,000 ML IV PRN (04:34)
[2018-10-10] MEDS ORDERED: INSULIN REG, HUMAN 100 UNIT/ML 3 ML VIAL (PYX) ONE ×2 (05:26→12:17)
[2018-10-10] MEDS: NORMAL SALINE 100 ML with INSULIN REGULAR, HUMAN 100 UNIT IV PRN ×2 (05:28)
[2018-10-10] MEDS ORDERED: DEXTROSE 40% GEL 15 GM TUBE PO PRN ×5 (06:24→12:30)
[2018-10-10] MEDS ORDERED: GLUCAGON,HUMAN RECOMB 1 MG INJ IM PRN ×3 (06:24→12:30)
[2018-10-10] MEDS ORDERED: DEXTROSE 50%-WATER 25 GM/50 ML DISP.SYRIN IV PRN ×4 (06:24→11:14)
[2018-10-10 06:30] LABS: ANION GAP 8 (5-19); BLOOD UREA NITROGEN 38 mg/dL (7-20); CALCIUM 7.5 mg/dL (8.4-10.2); CARBON DIOXIDE 17 mmol/L (22-30); CHLORIDE 114 mmol/L (98-107); GLUCOSE 96 mg/dL (75-110); POTASSIUM 4.2 mmol/L (3.6-5.0)
[2018-10-10] MEDS ORDERED: INSULIN LISPRO 100 UNIT/ML 3 ML VIAL SUBCUT SCH (08:00)
[2018-10-10 09:03] LABS: ABSOLUTE EOSINOPHILS # (AUTO) 0.1 10^3/uL (0.0-0.6); ABSOLUTE LYMPHOCYTES (AUTO) 1.9 10^3/uL (0.5-4.7); ABSOLUTE MONOCYTES (AUTO) 1.1 10^3/uL (0.1-1.4); ABSOLUTE NEUT (AUTO) 9.6 10^3/uL (1.7-8.2); BASOPHILS % (AUTO) 0.4 % (0-2); EOSINOPHILS % (AUTO) 0.4 % (0-6); HEMATOCRIT 26.7 % (36.0-47.0); HEMOGLOBIN 8.8 g/dL (12.0-15.5); MEAN CORPUSCULAR HEMOGLOBIN 28.5 pg (27.0-33.4); MEAN CORPUSCULAR HGB CONC 32.9 g/dL (32.0-36.0); MONOCYTES % (AUTO) 8.5 % (3-13); PLATELET COUNT 379 10^3/uL (150-450); RED BLOOD COUNT 3.08 10^6/uL (3.72-5.28); RED CELL DISTRIBUTION WIDTH 15.2 % (11.5-14.0); SEGMENTED NEUTROPHILS % (AUTO) 75.7 % (42-78); TOTAL CELLS COUNTED % (AUTO) 100 %; WHITE BLOOD COUNT 12.6 10^3/uL (4.0-10.5)
[2018-10-10 09:06] LABS: MEAN CORPUSCULAR VOLUME 87 fl (80-97)
[2018-10-10 09:20] LABS: ALBUMIN 3.2 g/dL (3.5-5.0); ALKALINE PHOSPHATASE 147 U/L (38-126); ANION GAP 10 (5-19); ASPARTATE AMINO TRANSFERASE 19 U/L (14-36); BILIRUBIN,DIRECT 0.2 mg/dL (0.0-0.4); BILIRUBIN,TOTAL 0.2 mg/dL (0.2-1.3); BLOOD UREA NITROGEN 35 mg/dL (7-20); CALCIUM 8.6 mg/dL (8.4-10.2); CARBON DIOXIDE 15 mmol/L (22-30); CHLORIDE 113 mmol/L (98-107); GLUCOSE 164 mg/dL (75-110); POTASSIUM 5.1 mmol/L (3.6-5.0)
[2018-10-10] MEDS: AMLODIPINE BESYLATE 10 MG TABLET PO SCH (09:32)
[2018-10-10] MEDS: METOPROLOL TARTRATE 50 MG TABLET PO SCH ×2 (09:33→22:11)
[2018-10-10] MEDS: OXYCODONE-ACETAMINOPHEN 5-325 MG TABLET PO PRN ×3 (09:33→23:27)
[2018-10-10] MEDS: HEPARIN SOD (PORCINE) 5,000 UNIT/ML 1 ML VIAL SUBCUT SCH ×2 (09:35→22:09)
[2018-10-10] MEDS ORDERED: LISINOPRIL 10 MG TABLET PO SCH (10:00)
--- NOTE | 2018-10-10 10:13 | PDOC PROGRESS REPORT ---
Subjective Progress Note for:: 10/10/18 Subjective:: 38 year old female history of uncontrolled diabetes, chronic pancreatitis and frequent hospitalizations for DKA and acute and chronic pancreatitis who presented with abdominal pain. Patient was just recently discharged and was treated here for DKA. During this recent course she also had an I&D of a right facial abscess. She says she was fine on discharge until yesterday when she had recurrence of her epigastric pain and was very nauseated. She says she has not been able to eat or drink anything at home. She denies actual vomiting. Denies fever or chills. She denies shortness of breath or chest pain. In the ER, she was noted to be in severe DKA. She was reportedly initially very lethargic but on encounter she appears very awake and coherent. 10/10/2018- blood sugars are much improved.. off iv fluids and iv insulin .. No acute events in the last 24 hours. Still complaining of abdominal pain. Reason For Visit: DIABETIC KETOACIDOSIS Physical Exam Vital Signs: Temp Pulse Resp BP Pulse Ox 97.4 F 88 16 122/69 93 10/10/18 07:34 10/10/18 07:34 10/10/18 07:34 10/10/18 07:34 10/10/18 07:34 Intake & Output 10/09/18 10/10/18 10/11/18 06:59 06:59 06:59 Intake Total 7901 Output Total 1050 Balance 6851 Weight 63.9 kg General appearance: PRESENT: no acute distress Head exam: PRESENT: atraumatic Eye exam: PRESENT: PERRLA Mouth exam: PRESENT: moist, tongue midline Teeth exam: PRESENT: poor dentation Neck exam: ABSENT: carotid bruit, JVD, lymphadenopathy, thyromegaly Respiratory exam: PRESENT: clear to auscultation teddy. ABSENT: rales, rhonchi, wheezes GI/Abdominal exam: PRESENT: normal bowel sounds, soft. ABSENT: distended, guarding, mass, organolmegaly, rebound, tenderness Rectal exam: PRESENT: deferred Extremities exam: PRESENT: full ROM. ABSENT: calf tenderness, clubbing, pedal edema Neurological exam: PRESENT: alert, awake, oriented to person, oriented to place, oriented to time, oriented to situation, CN II-XII grossly intact. ABSENT: motor sensory deficit Psychiatric exam: PRESENT: appropriate affect, normal mood. ABSENT: homicidal ideation, suicidal ideation Results Laboratory Results: 10/10/18 08:45 10/10/18 08:45 10/09/18 10/09/18 10/09/18 10:45 10:45 10:45 WBC 14.2 H RBC 3.11 L Hgb 8.8 L Hct 29.6 L MCV 95 D MCH 28.3 MCHC 29.7 L RDW 16.0 H Plt Count 390 Seg Neutrophils % 88.6 H Sodium 126.8 L Potassium 6.1 H* Chloride 93 L Carbon Dioxide 7 L* Anion Gap 27 H BUN 50 H Creatinine 2.55 H Est GFR ( Amer) 25 L Glucose 894 H* Calcium 8.7 Total Bilirubin AST Alkaline Phosphatase Total Protein Albumin Lipase 582.0 H Urine Color Urine Appearance Urine pH Ur Specific [place] Urine Protein Urine Glucose (UA) Urine Ketones Urine Blood Urine Nitrite Ur Leukocyte Esterase Urine WBC (Auto) Urine RBC (Auto) 10/09/18 10/09/18 10/09/18 11:10 15:35 18:05 WBC RBC Hgb Hct MCV MCH MCHC RDW Plt Count Seg Neutrophils % Sodium 132.6 L 135.5 L Potassium 5.3 H 4.9 Chloride 102 107 Carbon Dioxide 10 L* 13 L Anion Gap 21 H 16 BUN 50 H 49 H Creatinine 2.39 H 2.41 H Est GFR ( Amer) 27 L 27 L Glucose 647 H* 361 H Calcium 8.4 8.2 L Total Bilirubin AST Alkaline Phosphatase Total Protein Albumin Lipase Urine Color STRAW Urine Appearance CLEAR Urine pH 5.0 Ur Specific [place] 1.017 Urine Protein 30 H Urine Glucose (UA) >=500 H Urine Ketones 80 H Urine Blood NEGATIVE Urine Nitrite NEGATIVE Ur Leukocyte Esterase NEGATIVE Urine WBC (Auto) 0 Urine RBC (Auto) 0 10/09/18 10/10/18 10/10/18 22:20 02:26 06:00 WBC RBC Hgb Hct MCV MCH MCHC RDW Plt Count Seg Neutrophils % Sodium 137.5 139.6 138.8 Potassium 4.3 4.1 4.2 Chloride 112 H 115 H 114 H Carbon Dioxide 20 L 19 L 17 L Anion Gap 6 6 8 BUN 45 H 41 H 38 H Creatinine 2.08 H 1.79 H 1.61 H Est GFR ( Amer) 32 L 38 L 43 L Glucose 106 78 96 Calcium 7.8 L 7.8 L 7.5 L Total Bilirubin AST Alkaline Phosphatase Total Protein Albumin Lipase Urine Color Urine Appearance Urine pH Ur Specific [place] Urine Protein Urine Glucose (UA) Urine Ketones Urine Blood Urine Nitrite Ur Leukocyte Esterase Urine WBC (Auto) Urine RBC (Auto) 10/10/18 10/10/18 08:45 08:45 WBC 12.6 H RBC 3.08 L Hgb 8.8 L Hct 26.7 L MCV 87 D MCH 28.5 MCHC 32.9 RDW 15.2 H Plt Count 379 Seg Neutrophils % 75.7 Sodium 138.1 Potassium 5.1 H Chloride 113 H Carbon Dioxide 15 L Anion Gap 10 BUN 35 H Creatinine 1.73 H Est GFR ( Amer) 40 L Glucose 164 H Calcium 8.6 Total Bilirubin 0.2 AST 19 Alkaline Phosphatase 147 H Total Protein 6.0 L Albumin 3.2 L Lipase Urine Color Urine Appearance Urine pH Ur Specific [place] Urine Protein Urine Glucose (UA) Urine Ketones Urine Blood Urine Nitrite Ur Leukocyte Esterase Urine WBC (Auto) Urine RBC (Auto) Impressions: Abdomen/Pelvis CT 10/09/18 12:32 IMPRESSION: Stable exam. Chronic pancreatitis. Chest X-Ray 10/09/18 12:40 IMPRESSION: CENTRAL LINE DESCRIBED. NO PNEUMOTHORAX. NO ACUTE RADIOGRAPHIC FINDING IN THE CHEST. Assessment and Plan - Diagnosis (1) DKA (diabetic ketoacidoses) Qualifiers: Diabetes mellitus type: type 1 Diabetes mellitus complication detail: with coma Qualified Code(s): E10.11 - Type 1 diabetes mellitus with ketoacidosis with coma Is this a current diagnosis for this admission?: Yes Plan: She is received 2 L of fluid bolus in the ER. We will give her 1/3 L bolus and will switch to normal saline at 150 cc/h. She has also been initiated on insulin drip. Accu-Cheks q. hourly and BMP every 4. 10/10/2018-pt blood sugar is 224.. plan is to continue present rx. (2) RONIT (acute kidney injury) Is this a current diagnosis for this admission?: Yes Plan: Her baseline creatinine is around 1-1.1. Likely prerenal in nature. IV fluid resuscitation. Repeat BMP. 10/10/2018-creatinine is 1.72.. on iv fluids .. to watch creatinine.. (3) Hypertension Qualifiers: Hypertension type: essential hypertension Qualified Code(s): I10 - Essential (primary) hypertension Is this a current diagnosis for this admission?: No Plan: 10/10/2018- bp is 118/72 to continue present management. (4) Abdominal pain Qualifiers: Is this a current diagnosis for this admission?: Yes Plan: Lipase is slightly elevated. Questionable if the abdominal pain is from her DKA or a flareup of her chronic pancreatitis. Will pursue a CT of the abdomen and pelvis. 10/10/2018-patient is complaining of chronic abdominal pain most likely secondary to chronic pancreatitis presentation Percocet 1 tablet every 6 as needed. - Time Time Spent with patient: 15-24 minutes Smoking Cessation Education: over 10 minutes Medications reviewed and adjusted accordingly: Yes Anticipated discharge: Home
[2018-10-10] MEDS ORDERED: INSULIN GLARGINE,HUM.REC.ANLOG 1,000 UNIT/10 ML VIAL SUBCUT SCH ×2 (12:00→22:00)
[2018-10-10] MEDS: INSULIN REG, HUMAN 100 UNIT/ML 3 ML VIAL (PYX) SUBCUT SCH ×3 (12:19→22:10)
[2018-10-10] MEDS: PROMETHAZINE HCL INJ 25 MG/1 ML VIAL IV PRN (12:21)
[2018-10-10] MEDS ORDERED: DEXTROSE 40% GEL 15 GM TUBE X 2 PO PRN (12:30)
[2018-10-10] MEDS ORDERED: DEXTROSE 50%-WATER SYRINGE 25 GM/50 ML DOSE IV PRN (12:30)
[2018-10-10] MEDS ORDERED: DEXTROSE 50%-WATER SYRINGE 12.5 GM/25 ML DOSE IV PRN (12:30)
[2018-10-10] MEDS ORDERED: INSULIN REG, HUMAN 100 UNIT/ML 3 ML VIAL (PYX) SUBCUT ONE (14:00)
[2018-10-10] MEDS ORDERED: INSULIN REG, HUMAN 100 UNIT/ML 3 ML VIAL (PYX) SUBCUT SCH (16:00)
[2018-10-10] MEDS: INSULIN GLARGINE,HUM.REC.ANLOG 1,000 UNIT/10 ML VIAL SUBCUT SCH (22:10)
--- NOTE | 2018-10-10 23:30 | EKG REPORT ---
SEVERITY:- ABNORMAL ECG - SINUS RHYTHM ABNORMAL Q SUGGESTS ANTERIOR INFARCT : Confirmed by: Valentina Fierro 10-Oct-2018 23:30:02
[2018-10-11] MEDS: INSULIN REG, HUMAN 100 UNIT/ML 3 ML VIAL (PYX) SUBCUT SCH ×4 (07:52→21:46)
--- NOTE | 2018-10-11 09:25 | PDOC PROGRESS REPORT ---
Subjective Progress Note for:: 10/11/18 Subjective:: 38 year old female history of uncontrolled diabetes, chronic pancreatitis and frequent hospitalizations for DKA and acute and chronic pancreatitis who presented with abdominal pain. Patient was just recently discharged and was treated here for DKA. During this recent course she also had an I&D of a right facial abscess. She says she was fine on discharge until yesterday when she had recurrence of her epigastric pain and was very nauseated. She says she has not been able to eat or drink anything at home. She denies actual vomiting. Denies fever or chills. She denies shortness of breath or chest pain. In the ER, she was noted to be in severe DKA. She was reportedly initially very lethargic but on encounter she appears very awake and coherent. 10/10/2018- blood sugars are much improved.. off iv fluids and iv insulin .. No acute events in the last 24 hours. Still complaining of abdominal pain. 10/11/2018-no acute events in the last 24 hours. Afebrile. Blood sugar is around 80s today. Denies any abdominal pain this morning. But the patient's he says she is not feeling well too tored to go home today. Reason For Visit: DIABETIC KETOACIDOSIS Physical Exam Vital Signs: Temp Pulse Resp BP Pulse Ox 97.2 F 82 16 158/86 H 97 10/11/18 08:21 10/11/18 07:00 10/11/18 08:21 10/11/18 08:21 10/11/18 03:38 Intake & Output 10/10/18 10/11/18 10/12/18 06:59 06:59 06:59 Intake Total 7901 4278 Output Total 1050 9375 Balance 6851 1453 Weight 63.9 kg 32.8 kg General appearance: PRESENT: no acute distress, cooperative Head exam: PRESENT: atraumatic Eye exam: PRESENT: PERRLA Mouth exam: PRESENT: moist, tongue midline Teeth exam: PRESENT: poor dentation Neck exam: ABSENT: carotid bruit, JVD, lymphadenopathy, thyromegaly Respiratory exam: PRESENT: decreased breath sounds GI/Abdominal exam: PRESENT: normal bowel sounds, soft. ABSENT: distended, guarding, mass, organolmegaly, rebound, tenderness Rectal exam: PRESENT: deferred Extremities exam: PRESENT: full ROM. ABSENT: calf tenderness, clubbing, pedal edema Neurological exam: PRESENT: alert, awake, oriented to person, oriented to place, oriented to time, oriented to situation, CN II-XII grossly intact. ABSENT: motor sensory deficit Psychiatric exam: PRESENT: appropriate affect, normal mood. ABSENT: homicidal ideation, suicidal ideation Results Laboratory Results: 10/10/18 08:45 10/10/18 08:45 10/10/18 08:45 Sodium 138.1 Potassium 5.1 H Chloride 113 H Carbon Dioxide 15 L Anion Gap 10 BUN 35 H Creatinine 1.73 H Est GFR ( Amer) 40 L Glucose 164 H Calcium 8.6 Total Bilirubin 0.2 AST 19 Alkaline Phosphatase 147 H Total Protein 6.0 L Albumin 3.2 L Impressions: Abdomen/Pelvis CT 10/09/18 12:32 IMPRESSION: Stable exam. Chronic pancreatitis. Chest X-Ray 10/09/18 12:40 IMPRESSION: CENTRAL LINE DESCRIBED. NO PNEUMOTHORAX. NO ACUTE RADIOGRAPHIC FINDING IN THE CHEST. Assessment and Plan - Diagnosis (1) DKA (diabetic ketoacidoses) Qualifiers: Diabetes mellitus type: type 1 Diabetes mellitus complication detail: with coma Qualified Code(s): E10.11 - Type 1 diabetes mellitus with ketoacidosis with coma Is this a current diagnosis for this admission?: Yes Plan: She is received 2 L of fluid bolus in the ER. We will give her 1/3 L bolus and will switch to normal saline at 150 cc/h. She has also been initiated on insulin drip. Accu-Cheks q. hourly and BMP every 4. 10/10/2018-pt blood sugar is 224.. plan is to continue present rx. 10/11/2018-patient has history of type 2 diabetes mellitus noncompliant with her medications. Latest blood sugar is 81. Presently on insulin sliding scale and Lantus 30 units twice a day. Plan is to continue the present management. (2) RONIT (acute kidney injury) Is this a current diagnosis for this admission?: Yes Plan: Her baseline creatinine is around 1-1.1. Likely prerenal in nature. IV fluid resuscitation. Repeat BMP. 10/10/2018-creatinine is 1.72.. on iv fluids .. to watch creatinine.. 10/11/2018-latest serum creatinine is 1.7 to 2 days labs are pending. Patient has history of chronic kidney disease. Baseline creatinine is around 1.1. Nonol iguric. (3) Hypertension Qualifiers: Hypertension type: essential hypertension Qualified Code(s): I10 - Essential (primary) hypertension Is this a current diagnosis for this admission?: No Plan: 10/10/2018- bp is 118/72 to continue present management. 10/11/2018-patient's blood pressure today is 147/82 off the IV fluids. Amlodipine 10 mg p.o. daily and metoprolol 50 mg p.o. twice a day. Plan is to continue the present management. (4) Abdominal pain Qualifiers: Is this a current diagnosis for this admission?: Yes Plan: Lipase is slightly elevated. Questionable if the abdominal pain is from her DKA or a flareup of her chronic pancreatitis. Will pursue a CT of the abdomen and pelvis. 10/10/2018-patient is complaining of chronic abdominal pain most likely secondary to chronic pancreatitis presentation Percocet 1 tablet every 6 as needed. 10/11/2018-patient has history of chronic abdominal pain secondary to chronic pancreatitis. CT abdomen and pelvis done at the time of admission suggestive of chronic pancreatitis. - Time Time Spent with patient: 15-24 minutes Medications reviewed and adjusted accordingly: Yes Anticipated discharge: Home
[2018-10-11] MEDS: OXYCODONE-ACETAMINOPHEN 5-325 MG TABLET PO PRN ×3 (09:38→21:48)
[2018-10-11] MEDS: AMLODIPINE BESYLATE 10 MG TABLET PO SCH (09:38)
[2018-10-11] MEDS: INSULIN GLARGINE,HUM.REC.ANLOG 1,000 UNIT/10 ML VIAL SUBCUT SCH ×2 (09:38→21:45)
[2018-10-11] MEDS: METOPROLOL TARTRATE 50 MG TABLET PO SCH ×2 (09:38→21:44)
[2018-10-11] MEDS: HEPARIN SOD (PORCINE) 5,000 UNIT/ML 1 ML VIAL SUBCUT SCH ×2 (09:38→21:44)
[2018-10-11] MEDS: PROMETHAZINE HCL INJ 25 MG/1 ML VIAL IV PRN (10:15)
[2018-10-11 10:36] LABS: ABSOLUTE BASOPHILS # (AUTO) 0.1 10^3/uL (0.0-0.2); ABSOLUTE EOSINOPHILS # (AUTO) 0.1 10^3/uL (0.0-0.6); ABSOLUTE MONOCYTES (AUTO) 0.5 10^3/uL (0.1-1.4); ABSOLUTE NEUT (AUTO) 6.5 10^3/uL (1.7-8.2); EOSINOPHILS % (AUTO) 0.6 % (0-6); HEMATOCRIT 28.8 % (36.0-47.0); HEMOGLOBIN 9.5 g/dL (12.0-15.5); LYMPHOCYTES % (AUTO) 22.5 % (13-45); MEAN CORPUSCULAR HEMOGLOBIN 28.3 pg (27.0-33.4); MEAN CORPUSCULAR HGB CONC 32.9 g/dL (32.0-36.0); MEAN CORPUSCULAR VOLUME 86 fl (80-97); MONOCYTES % (AUTO) 5.2 % (3-13); PLATELET COUNT 369 10^3/uL (150-450); RED BLOOD COUNT 3.35 10^6/uL (3.72-5.28); RED CELL DISTRIBUTION WIDTH 15.4 % (11.5-14.0); SEGMENTED NEUTROPHILS % (AUTO) 70.7 % (42-78); TOTAL CELLS COUNTED % (AUTO) 100 %; WHITE BLOOD COUNT 9.1 10^3/uL (4.0-10.5)
[2018-10-11 10:54] LABS: ALBUMIN 3.3 g/dL (3.5-5.0); ALKALINE PHOSPHATASE 135 U/L (38-126); ANION GAP 7 (5-19); ASPARTATE AMINO TRANSFERASE 51 U/L (14-36); BILIRUBIN,DIRECT 0.3 mg/dL (0.0-0.4); BILIRUBIN,TOTAL 0.4 mg/dL (0.2-1.3); BLOOD UREA NITROGEN 23 mg/dL (7-20); CALCIUM 9.1 mg/dL (8.4-10.2); CARBON DIOXIDE 21 mmol/L (22-30); CHLORIDE 107 mmol/L (98-107); GLUCOSE 152 mg/dL (75-110); POTASSIUM 5.1 mmol/L (3.6-5.0); TOTAL PROTEIN 6.3 g/dL (6.3-8.2)
[2018-10-11] MEDS ORDERED: MAGNESIUM CITRATE 296 ML BOTTLE PO PRN (17:48)
[2018-10-12 05:50] LABS: ABSOLUTE BASOPHILS # (AUTO) 0.1 10^3/uL (0.0-0.2); ABSOLUTE EOSINOPHILS # (AUTO) 0.1 10^3/uL (0.0-0.6); ABSOLUTE LYMPHOCYTES (AUTO) 2.8 10^3/uL (0.5-4.7); ABSOLUTE MONOCYTES (AUTO) 0.6 10^3/uL (0.1-1.4); ABSOLUTE NEUT (AUTO) 4.2 10^3/uL (1.7-8.2); BASOPHILS % (AUTO) 0.9 % (0-2); EOSINOPHILS % (AUTO) 1.2 % (0-6); HEMATOCRIT 24.6 % (36.0-47.0); HEMOGLOBIN 8.2 g/dL (12.0-15.5); LYMPHOCYTES % (AUTO) 36.6 % (13-45); MEAN CORPUSCULAR HEMOGLOBIN 28.6 pg (27.0-33.4); MEAN CORPUSCULAR HGB CONC 33.5 g/dL (32.0-36.0); MEAN CORPUSCULAR VOLUME 85 fl (80-97); MONOCYTES % (AUTO) 7.3 % (3-13); PLATELET COUNT 280 10^3/uL (150-450); RED BLOOD COUNT 2.88 10^6/uL (3.72-5.28); RED CELL DISTRIBUTION WIDTH 15.1 % (11.5-14.0); TOTAL CELLS COUNTED % (AUTO) 100 %; WHITE BLOOD COUNT 7.7 10^3/uL (4.0-10.5)
[2018-10-12 06:04] LABS: ALKALINE PHOSPHATASE 121 U/L (38-126); ANION GAP 7 (5-19); ASPARTATE AMINO TRANSFERASE 76 U/L (14-36); BILIRUBIN,DIRECT 0.1 mg/dL (0.0-0.4); BILIRUBIN,TOTAL 0.2 mg/dL (0.2-1.3); BLOOD UREA NITROGEN 23 mg/dL (7-20); CALCIUM 8.7 mg/dL (8.4-10.2); CARBON DIOXIDE 25 mmol/L (22-30); CHLORIDE 106 mmol/L (98-107); POTASSIUM 4.5 mmol/L (3.6-5.0); TOTAL PROTEIN 5.8 g/dL (6.3-8.2)
[2018-10-12 06:06] LABS: GLUCOSE 61 mg/dL (75-110)
[2018-10-12] MEDS ORDERED: MAGNESIUM OXIDE 400 MG TABLET PO ONE (08:00)
[2018-10-12] MEDS: INSULIN REG, HUMAN 100 UNIT/ML 3 ML VIAL (PYX) SUBCUT SCH ×3 (08:37→17:13)
[2018-10-12] MEDS: OXYCODONE-ACETAMINOPHEN 5-325 MG TABLET PO PRN ×3 (08:40→22:05)
[2018-10-12] MEDS ORDERED: HYDROMORPHONE HCL INJ/PF 2 MG/ML AMPULE IV PRN (09:51)
--- NOTE | 2018-10-12 09:57 | PDOC PROGRESS REPORT ---
Subjective Progress Note for:: 10/12/18 Subjective:: 38 year old female history of uncontrolled diabetes, chronic pancreatitis and frequent hospitalizations for DKA and acute and chronic pancreatitis who presented with abdominal pain. Patient was just recently discharged and was treated here for DKA. During this recent course she also had an I&D of a right facial abscess. She says she was fine on discharge until yesterday when she had recurrence of her epigastric pain and was very nauseated. She says she has not been able to eat or drink anything at home. She denies actual vomiting. Denies fever or chills. She denies shortness of breath or chest pain. In the ER, she was noted to be in severe DKA. She was reportedly initially very lethargic but on encounter she appears very awake and coherent. 10/10/2018- blood sugars are much improved.. off iv fluids and iv insulin .. No acute events in the last 24 hours. Still complaining of abdominal pain. 10/11/2018-no acute events in the last 24 hours. Afebrile. Blood sugar is around 80s today. Denies any abdominal pain this morning. But the patient's he says she is not feeling well too tored to go home today. 10/12/2018-no acute events in the last 24 hours. Afebrile. Blood sugars are running low. Presently on insulin sliding scale plan is to decrease the Lantus to 25 units twice a day. Patient is still complaining of abdominal pain receiving Percocet every 4 hours as needed. To start her on Dilaudid 1 mg IV every 6 PRN for pains. Abdominal pain most likely secondary to chronic pancreatitis. Reason For Visit: DIABETIC KETOACIDOSIS Physical Exam Vital Signs: Temp Pulse Resp BP Pulse Ox 98.3 F 86 15 151/88 H 99 10/12/18 03:36 10/12/18 07:00 10/12/18 03:36 10/12/18 03:36 10/12/18 03:36 Intake & Output 10/11/18 10/12/18 10/13/18 06:59 06:59 06:59 Intake Total 1837 5231 Output Total 2077 3380 Balance 1453 -7169 Weight 32.8 kg General appearance: PRESENT: cooperative, mild distress Head exam: PRESENT: atraumatic Eye exam: PRESENT: PERRLA Mouth exam: PRESENT: moist, tongue midline Teeth exam: PRESENT: poor dentation Neck exam: ABSENT: carotid bruit, JVD, lymphadenopathy, thyromegaly Respiratory exam: PRESENT: decreased breath sounds Cardiovascular exam: PRESENT: RRR. ABSENT: diastolic murmur, rubs, systolic murmur GI/Abdominal exam: PRESENT: normal bowel sounds, soft. ABSENT: distended, guarding, mass, organolmegaly, rebound, tenderness Rectal exam: PRESENT: deferred Extremities exam: PRESENT: full ROM. ABSENT: calf tenderness, clubbing, pedal edema Neurological exam: PRESENT: alert, awake, oriented to person, oriented to place, oriented to time, oriented to situation, CN II-XII grossly intact. ABSENT: motor sensory deficit Psychiatric exam: PRESENT: appropriate affect, normal mood. ABSENT: homicidal ideation, suicidal ideation Results Laboratory Results: 10/12/18 05:34 10/12/18 05:34 10/11/18 10/11/18 10/12/18 10:20 10:20 05:34 WBC 9.1 7.7 RBC 3.35 L 2.88 L Hgb 9.5 L 8.2 L Hct 28.8 L 24.6 L MCV 86 85 MCH 28.3 28.6 MCHC 32.9 33.5 RDW 15.4 H 15.1 H Plt Count 369 280 Seg Neutrophils % 70.7 54.0 Sodium 135.1 L Potassium 5.1 H Chloride 107 Carbon Dioxide 21 L Anion Gap 7 BUN 23 H Creatinine 1.45 H Est GFR ( Amer) 49 L Glucose 152 H Calcium 9.1 Magnesium 1.6 Total Bilirubin 0.4 AST 51 H Alkaline Phosphatase 135 H Total Protein 6.3 Albumin 3.3 L 10/12/18 05:34 WBC RBC Hgb Hct MCV MCH MCHC RDW Plt Count Seg Neutrophils % Sodium 137.9 Potassium 4.5 Chloride 106 Carbon Dioxide 25 Anion Gap 7 BUN 23 H Creatinine 1.40 H Est GFR ( Amer) 51 L Glucose 61 L Calcium 8.7 Magnesium 1.6 Total Bilirubin 0.2 AST 76 H Alkaline Phosphatase 121 Total Protein 5.8 L Albumin 3.0 L Impressions: Abdomen/Pelvis CT 10/09/18 12:32 IMPRESSION: Stable exam. Chronic pancreatitis. Chest X-Ray 10/09/18 12:40 IMPRESSION: CENTRAL LINE DESCRIBED. NO PNEUMOTHORAX. NO ACUTE RADIOGRAPHIC FINDING IN THE CHEST. Assessment and Plan - Diagnosis (1) DKA (diabetic ketoacidoses) Qualifiers: Diabetes mellitus type: type 1 Diabetes mellitus complication detail: with coma Qualified Code(s): E10.11 - Type 1 diabetes mellitus with ketoacidosis with coma Is this a current diagnosis for this admission?: Yes Plan: She is received 2 L of fluid bolus in the ER. We will give her 1/3 L bolus and will switch to normal saline at 150 cc/h. She has also been initiated on insulin drip. Accu-Cheks q. hourly and BMP every 4. 10/10/2018-pt blood sugar is 224.. plan is to continue present rx. 10/11/2018-patient has history of type 2 diabetes mellitus noncompliant with her medications. Latest blood sugar is 81. Presently on insulin sliding scale and Lantus 30 units twice a day. Plan is to continue the present management. 10/12/2018-patient blood sugars are in the 80s... Plan is to decrease the Lantus to 25 units twice a day. Patient is noncompliant complex with medications discussed with the patient. (2) RONIT (acute kidney injury) Is this a current diagnosis for this admission?: Yes Plan: Her baseline creatinine is around 1-1.1. Likely prerenal in nature. IV fluid resuscitation. Repeat BMP. 10/10/2018-creatinine is 1.72.. on iv fluids .. to watch creatinine.. 10/11/2018-latest serum creatinine is 1.7 to 2 days labs are pending. Patient has history of chronic kidney disease. Baseline creatinine is around 1.1. Nonoliguric. 10/12/2018-patient serum creatinine is 1.4 improving. Baseline creatinine is around 1.1. RONIT most likely secondary to prerenal causes. (3) Hypertension Qualifiers: Hypertension type: essential hypertension Qualified Code(s): I10 - Ess ential (primary) hypertension Is this a current diagnosis for this admission?: No Plan: 10/10/2018- bp is 118/72 to continue present management. 10/11/2018-patient's blood pressure today is 147/82 off the IV fluids. Amlodipine 10 mg p.o. daily and metoprolol 50 mg p.o. twice a day. Plan is to continue the present management. patient blood pressure today is 151/88. Stable. Plan is to continue the present management. Presently on amlodipine 10 mg p.o. daily and metoprolol 50 mg p.o. twice a day. (4) Abdominal pain Qualifiers: Is this a current diagnosis for this admission?: Yes Plan: Lipase is slightly elevated. Questionable if the abdominal pain is from her DKA or a flareup of her chronic pancreatitis. Will pursue a CT of the abdomen and pelvis. 10/10/2018-patient is complaining of chronic abdominal pain most likely secondary to chronic pancreatitis presentation Percocet 1 tablet every 6 as needed. 10/11/2018-patient has history of chronic abdominal pain secondary to chronic pancreatitis. CT abdomen and pelvis done at the time of admission suggestive of chronic pancreatitis. 10/12/2018-patient is still complaining of abdominal pain pain scale is 10/10.. patient states Percocet is not helping to start her on IV Dilaudid 1 mg every 6 as needed for pain. - Time Time Spent with patient: 25-34 minutes Medications reviewed and adjusted accordingly: Yes Anticipated discharge: Home
[2018-10-12] MEDS: AMLODIPINE BESYLATE 10 MG TABLET PO SCH (11:02)
[2018-10-12] MEDS: HEPARIN SOD (PORCINE) 5,000 UNIT/ML 1 ML VIAL SUBCUT SCH ×2 (11:02→21:45)
[2018-10-12] MEDS: INSULIN GLARGINE,HUM.REC.ANLOG 1,000 UNIT/10 ML VIAL SUBCUT SCH ×2 (11:02→21:46)
[2018-10-12] MEDS: METOPROLOL TARTRATE 50 MG TABLET PO SCH ×2 (11:02→21:46)
[2018-10-13 05:43] LABS: HEMATOCRIT 28.4 % (36.0-47.0); HEMOGLOBIN 9.5 g/dL (12.0-15.5); MEAN CORPUSCULAR HEMOGLOBIN 28.7 pg (27.0-33.4); MEAN CORPUSCULAR HGB CONC 33.5 g/dL (32.0-36.0); MEAN CORPUSCULAR VOLUME 86 fl (80-97); PLATELET COUNT 323 10^3/uL (150-450); RED BLOOD COUNT 3.31 10^6/uL (3.72-5.28); WHITE BLOOD COUNT 7.1 10^3/uL (4.0-10.5)
[2018-10-13 05:57] LABS: ALBUMIN 3.4 g/dL (3.5-5.0); ALKALINE PHOSPHATASE 160 U/L (38-126); ANION GAP 8 (5-19); ASPARTATE AMINO TRANSFERASE 54 U/L (14-36); BILIRUBIN,DIRECT 0.1 mg/dL (0.0-0.4); BILIRUBIN,TOTAL 0.1 mg/dL (0.2-1.3); BLOOD UREA NITROGEN 25 mg/dL (7-20); CALCIUM 9.3 mg/dL (8.4-10.2); CARBON DIOXIDE 26 mmol/L (22-30); CHLORIDE 104 mmol/L (98-107); GLUCOSE 161 mg/dL (75-110); POTASSIUM 4.9 mmol/L (3.6-5.0); TOTAL PROTEIN 6.5 g/dL (6.3-8.2)
[2018-10-13 06:03] LABS: ABSOLUTE LYMPHOCYTES# (MANUAL) 3.3 10^3/uL (0.5-4.7); ABSOLUTE MONOCYTES # (MANUAL) 0.6 10^3/uL (0.1-1.4); BAND NEUTROPHILS % (MANUAL) 1 % (3-5); BASOPHILS % (MANUAL) 0 % (0-2); EOSINOPHILS % (MANUAL) 3 % (0-6); LYMPHOCYTES % (MANUAL) 47 % (13-45); MONOCYTES % (MANUAL) 8 % (3-13); SEGMENTED NEUTROPHILS % (MAN) 41 % (42-78); TOTAL CELLS COUNTED 100
[2018-10-13 06:04] LABS: ANISOCYTOSIS SLIGHT; PLATELET COMMENT ADEQUATE
--- NOTE | 2018-10-13 09:03 | PDOC DISCHARGE SUMMARY ---
General - Admit/Disc Date/PCP Admission Date/Primary Care Provider: 10/09/18 12:22 NO LOCALVA Discharge Date: 10/13/18 - Discharge Diagnosis (1) DKA (diabetic ketoacidoses) Is this a current diagnosis for this admission?: Yes Summary: She is received 2 L of fluid bolus in the ER. We will give her 1/3 L bolus and will switch to normal saline at 150 cc/h. She has also been initiated on insulin drip. Accu-Cheks q. hourly and BMP every 4. 10/10/2018-pt blood sugar is 224.. plan is to continue present rx. 10/11/2018-patient has history of type 2 diabetes mellitus noncompliant with her medications. Latest blood sugar is 81. Presently on insulin sliding scale and Lantus 30 units twice a day. Plan is to continue the present management. 10/12/2018-patient blood sugars are in the 80s... Plan is to decrease the Lantus to 25 units twice a day. Patient is noncompliant complex with medications discussed with the patient. 10/13/2018-latest blood sugar today is 161. Well-controlled. Presently on Lantus 25 units twice a day and insulin sliding scale. Patient is strongly advised to continue her home medications and follow-up with primary care physician in 3 to 5 days. Patient agreed with the discharge plan. (2) RONIT (acute kidney injury) Is this a current diagnosis for this admission?: Yes Summary: Her baseline creatinine is around 1-1.1. Likely prerenal in nature. IV fluid resuscitation. Repeat BMP. 10/10/2018-creatinine is 1.72.. on iv fluids .. to watch creatinine.. 10/11/2018-latest serum creatinine is 1.7 to 2 days labs are pending. Patient has history of chronic kidney disease. Baseline creatinine is around 1.1. Nonoliguric. 10/12/2018-patient serum creatinine is 1.4 improving. Baseline creatinine is around 1.1. RONIT most likely secondary to prerenal causes. 10/13/2018-serum creatinine today is 1.26 came in with a serum creatinine of 1.7, baseline creatinine is around 1.1 RONIT due to prerenal causes resolved. (3) Hypertension Is this a current diagnosis for this admission?: No Summary: 10/10/2018- bp is 118/72 to continue present management. 10/11/2018-patient's blood pressure today is 147/82 off the IV fluids. Amlodipine 10 mg p.o. daily and metoprolol 50 mg p.o. twice a day. Plan is to continue the present management. patient blood pressure today is 151/88. Stable. Plan is to continue the present management. Presently on amlodipine 10 mg p.o. daily and metoprolol 50 mg p.o. twice a day. 10/13/2018-latest blood pressure today is 139/83 stable. No change in home medications. Patient is advised to continue her home medications amlodipine 10 mg daily, metoprolol 50 mg twice a day. (4) Abdominal pain Is this a current diagnosis for this admission?: Yes Summary: Lipase is slightly elevated. Questionable if the abdominal pain is from her DKA or a flareup of her chronic pancreatitis. Will pursue a CT of the abdomen and pelvis. 10/10/2018-patient is complaining of chronic abdominal pain most likely secondary to chronic pancreatitis presentation Percocet 1 tablet every 6 as needed. 10/11/2018-patient has history of chronic abdominal pain secondary to chronic pancreatitis. CT abdomen and pelvis done at the time of admission suggestive of chronic pancreatitis. 10/12/2018-patient is still complaining of abdominal pain pain scale is 10/10.. patient states Percocet is not helping to start her on IV Dilaudid 1 mg every 6 as needed for pain. 10/13/2018-patient has a chronic abdominal pain most likely secondary to chronic pancreatitis. Patient is advised to continue her home medications. - Additional Information Discharge Diet: Diabetic Discharge Activity: Activity As Tolerated Home Medications: Amlodipine Besylate [Norvasc 10 mg Tablet] 10 mg PO DAILY 10/09/18 Insulin Aspart [Novolog Insulin (Aspart) 100 unit/mL] 10 units SQ MEALS 10/09/18 Insulin Glargine,Hum.rec.anlog [Lantus Insulin 100 Unit/1 ml 10 ml] 30 unit SQ QHS 10/09/18 Lisinopril [Prinivil 10 mg Tablet] 10 mg PO DAILY 10/09/18 Metoprolol Tartrate [Lopressor 50 mg Tablet] 50 mg PO Q12 10/09/18 History of Present Illness History of Present Illness: JJ HOFFMAN is a 38 year old female 8 year old female history of uncontrolled diabetes, chronic pancreatitis and frequent hospitalizations for DKA and acute and chronic pancreatitis who presented with abdominal pain. Patient was just recently discharged and was treated here for DKA. During this recent course she also had an I&D of a right facial abscess. She says she was fine on discharge until yesterday when she had recurrence of her epigastric pain and was very nauseated. She says she has not been able to eat or drink anything at home. She denies actual vomiting. Denies fever or chills. She denies shortness of breath or chest pain. In the ER, she was noted to be in severe DKA. She was reportedly initially very lethargic but on encounter she appears very awake and coherent. Hospital Course Hospital Course: 38 year old female history of uncontrolled diabetes, chronic pancreatitis and frequent hospitalizations for DKA and acute and chronic pancreatitis who presented with abdominal pain. Patient was just recently discharged and was treated here for DKA. During this recent course she also had an I&D of a right facial abscess. She says she was fine on discharge until yesterday when she had recurrence of her epigastric pain and was very nauseated. She says she has not been able to eat or drink anything at home. She denies actual vomiting. Denies fever or chills. She denies short ness of breath or chest pain. In the ER, she was noted to be in severe DKA. She was reportedly initially very lethargic but on encounter she appears very awake and coherent. 10/10/2018- blood sugars are much improved.. off iv fluids and iv insulin .. No acute events in the last 24 hours. Still complaining of abdominal pain. 10/11/2018-no acute events in the last 24 hours. Afebrile. Blood sugar is around 80s today. Denies any abdominal pain this morning. But the patient's he says she is not feeling well too tored to go home today. 10/12/2018-no acute events in the last 24 hours. Afebrile. Blood sugars are running low. Presently on insulin sliding scale plan is to decrease the Lantus to 25 units twice a day. Patient is still complaining of abdominal pain receiving Percocet every 4 hours as needed. To start her on Dilaudid 1 mg IV every 6 PRN for pains. Abdominal pain most likely secondary to chronic pancreatitis. Physical Exam Vital Signs: Temp Pulse Resp BP Pulse Ox 98.0 F 87 16 157/97 H 100 10/13/18 08:28 10/13/18 08:28 10/13/18 08:28 10/13/18 08:28 10/13/18 08:28 Intake & Output 10/12/18 10/13/18 10/14/18 06:59 06:59 06:59 Intake Total 1871 284 Output Total 4750 Balance -2879 284 Weight 59.2 kg General appearance: PRESENT: no acute distress, cooperative Head exam: PRESENT: atraumatic Eye exam: PRESENT: PERRLA Mouth exam: PRESENT: moist, tongue midline Teeth exam: PRESENT: poor dentation Neck exam: ABSENT: carotid bruit, JVD, lymphadenopathy, thyromegaly Respiratory exam: PRESENT: decreased breath sounds Cardiovascular exam: PRESENT: RRR. ABSENT: diastolic murmur, rubs, systolic murmur GI/Abdominal exam: PRESENT: normal bowel sounds, soft. ABSENT: distended, guarding, mass, organolmegaly, rebound, tenderness Rectal exam: PRESENT: deferred Extremities exam: PRESENT: full ROM. ABSENT: calf tenderness, clubbing, pedal edema Neurological exam: PRESENT: alert, awake, oriented to person, oriented to place, oriented to time, oriented to situation, CN II-XII grossly intact. ABSENT: motor sensory deficit Psychiatric exam: PRESENT: appropriate affect, normal mood. ABSENT: homicidal ideation, suicidal ideation Results Laboratory Results: 10/13/18 05:03 10/13/18 05:03 10/13/18 10/13/18 05:03 05:03 WBC 7.1 RBC 3.31 L Hgb 9.5 L Hct 28.4 L MCV 86 MCH 28.7 MCHC 33.5 RDW 15.0 H Plt Count 323 Seg Neutrophils % Not Reportable Sodium 138.0 Potassium 4.9 Chloride 104 Carbon Dioxide 26 Anion Gap 8 BUN 25 H Creatinine 1.26 H Est GFR ( Amer) 58 L Glucose 161 H Calcium 9.3 Magnesium 1.8 Total Bilirubin 0.1 L AST 54 H Alkaline Phosphatase 160 H Total Protein 6.5 Albumin 3.4 L Impressions: Abdomen/Pelvis CT 10/09/18 12:32 IMPRESSION: Stable exam. Chronic pancreatitis. Chest X-Ray 10/09/18 12:40 IMPRESSION: CENTRAL LINE DESCRIBED. NO PNEUMOTHORAX. NO ACUTE RADIOGRAPHIC FINDING IN THE CHEST. Qualifiers - * PATIENT BEING DISCHARGED WITH ANY OF THE FOLLOWING DIAGNOSIS: No VTE patient discharged on overlapping Therapy?: No Acute Heart Failure - Is this a Heart Failure Patient?: No
[2018-10-13] MEDS: HEPARIN SOD (PORCINE) 5,000 UNIT/ML 1 ML VIAL SUBCUT SCH ×2 (09:48→09:53)
[2018-10-13] MEDS: INSULIN GLARGINE,HUM.REC.ANLOG 1,000 UNIT/10 ML VIAL SUBCUT SCH (09:48)
[2018-10-13] MEDS: INSULIN REG, HUMAN 100 UNIT/ML 3 ML VIAL (PYX) SUBCUT SCH ×3 (09:48→12:33)
[2018-10-13] MEDS: AMLODIPINE BESYLATE 10 MG TABLET PO SCH (09:49)
[2018-10-13] MEDS: METOPROLOL TARTRATE 50 MG TABLET PO SCH (09:49)
[2018-10-13 12:42] VITALS: BP 149/89
== END 2018-10-13 13:21 | disposition home or self-care (01) | DRG 638 ==
LOC: ER 10:10 → EH 12:22 → 3S 13:57
PROVIDERS: ADMIT Internal Medicine; ATTEND Internal Medicine
PROC: 05HY33Z Insertion of Infusion Device into Upper Vein, Percutaneous Approach (ICD-10-PCS; principal; 2018-10-09)
DX: E11.10 Type 2 diabetes mellitus with ketoacidosis without coma (principal); N17.9 Acute kidney failure, unspecified; K86.1 Other chronic pancreatitis; I10 Essential (primary) hypertension; E78.5 Hyperlipidemia, unspecified; J44.9 Chronic obstructive pulmonary disease, unspecified; D64.9 Anemia, unspecified; Z91.14 Patient's other noncompliance with medication regimen; Z79.4 Long term (current) use of insulin; Z88.6 Allergy status to analgesic agent; Z83.3 Family history of diabetes mellitus; Z82.49 Family history of ischemic heart disease and other diseases of the circulatory system
CPT/HCPCS: 36415; 51702; 71045; 74176; 80048; 80053; 80307; 81001; 82962; 83690; 83735; 85025; 87040; 87070; 93005; 93010; 96374; 99291; C1751; J1170; J1644; J1815; J2405; J2550; J3010; J3480; J3490; J7030; J7050

== ENCOUNTER 2018-10-29 13:11 | Inpatient (IN) | payer MEDICAID ==
[2018-10-29] MEDS: NORMAL SALINE 1000 ML 1,000 ML IV PRN ×2 (13:24→13:25)
[2018-10-29] MEDS ORDERED: ONDANSETRON HCL INJ/PF 4 MG/2 ML SDV IV ONE (13:25)
--- NOTE | 2018-10-29 13:32 | ER Document Report ---
Entered by SARAH KELLY SCRIBE 10/29/18 1835 Acting as scribe for:JASPER BARAJAS MD ED General - General Stated Complaint: SEIZURE Primary Care Provider: CHANTEL JONES [NO LOCAL MD] - Follow up as needed Mode of Arrival: Wheelchair Information source: Patient, [facility] Records Notes: Patient is a 38-year-old female with uncontrolled diabetes who has multiple admissions for DKA and pancreatitis that presents today unresponsive. Patient only withdraws from painful stimuli. There is a strong ketone odor on the patient's breath. History is extremely secondary to the patient's medical condition. Patient now more arousable. States she felt fine when she went to bed last night. States she has not missed any insulin. States she took her blood pressure medicine this morning but thinks she might have thrown it up. Shortly after the patient arrived and had received some IV fluids, she is alert moaning groaning and states that her abdomen is hurting badly. TRAVEL OUTSIDE OF THE [place] IN LAST 30 DAYS: No - Related Data Allergies/Adverse Reactions: hydrocodone [From [place]] Allergy (Verified 10/29/18 13:23) morphine Allergy (Verified 10/29/18 13:23) Past Medical History - General Information source: [facility] Records Cannot obtain history due to: Altered mental status - Social History Smoking Status: Unknown if Ever Smoked Family History: Reviewed & Not Pertinent, DM, Hypertension - Past Medical History Cardiac Medical History: Reports: Hx Hypercholesterolemia, Hx Hypertension Pulmonary Medical History: Reports: Hx COPD Neurological Medical History: Reports: Hx Seizures Endocrine Medical History: Reports: Hx Diabetes Mellitus Type 1 Renal/ Medical History: Reports: Hx Renal Insufficiency GI Medical History: Reports: Hx Pancreatitis Musculoskeletal Medical History: Skin Medical History: Past Surgical History: Reports: Hx Section - x3, Hx Hysterectomy Review of Systems - Review of Systems -: Yes ROS unobtainable due to patient's medical condition Physical Exam - Vital signs Vitals: Temp Resp Pulse Ox 98.1 F 18 100 10/29/18 13:19 10/29/18 13:19 10/29/18 13:19 - Notes Notes: Physical Exam: General: Unresponsive, strong ketone odor on breath. HEENT: Normocephalic. Atraumatic. PERRL. Extraocular movements intact. Oropharynx clear. Neck: Supple. Non-tender. Respiratory: Kussmaul breathing Cardiovascular: Tachycardic, regular rhythm. Abdominal: Normal Inspection. Non-tender. No distension. Normal Bowel Sounds. Neurological: Unresponsive Skin: Warm. Diaphoretic. Normal color. Course - Vital Signs Vital signs: Temp Pulse Resp BP Pulse Ox 98.1 F 14 123/77 100 10/29/18 13:19 10/29/18 15:21 10/29/18 15:21 10/29/18 15:21 - Laboratory Result Diagrams: 10/29/18 13:28 10/29/18 13:28 Laboratory results interpreted by me: 10/29/18 10/29/18 10/29/18 13:28 13:28 15:23 WBC 12.7 H RBC 3.61 L Hgb 10.3 L Hct 31.2 L RDW 15.9 H Lymph % (Auto) 10.1 L Absolute Neuts (auto) 10.7 H Seg Neutrophils % 84.5 H Carbon Dioxide 14 L BUN 36 H Creatinine 1.77 H Est GFR ( Amer) 39 L Est GFR (MDRD) Non-Af 32 L Glucose 372 H POC Glucose 504 H* Phosphorus 4.7 H Alkaline Phosphatase 178 H Creatine Kinase 144 H Lipase 958.5 H 10/29/18 15:29 WBC RBC Hgb Hct RDW Lymph % (Auto) Absolute Neuts (auto) Seg Neutrophils % Carbon Dioxide BUN Creatinine Est GFR ( Amer) Est GFR (MDRD) Non-Af Glucose POC Glucose 493 H* Phosphorus Alkaline Phosphatase Creatine Kinase Lipase - EKG Interpretation by Dc EKG shows normal: Sinus rhythm, [place], Intervals, QRS Complexes, ST-T Waves Rate: Tachycardia - 106 Rhythm: PVC's Voltage: Consistant with LVH - Consults Dr. Rondon Time consulted: 15:10 Consulted provider: will see as inpatient Critical Care Note - Critical Care Note Total time excluding time spent on procedures (mins): 35 Discharge - Discharge Clinical Impression: IDDM (insulin dependent diabetes mellitus), Acute on chronic pancreatitis Pancreatitis Qualifiers: Chronicity: acute Pancreatitis type: unspecified pancreatitis type Acute pancreatitis complication: unspecified Qualified Code(s): K85.90 - Acute pancreatitis without necrosis or infection, unspecified Type 2 diabetes mellitus Qualifiers: Diabetes mellitus half-way insulin use: with terminal clerk use Diabetes mellitus complication status: without complication Qualified Code(s): E11.9 - Type 2 diabetes mellitus without complications Hypertension Qualifiers: Hypertension type: essential hypertension Qualified Code(s): I10 - Essential (primary) hypertension Vomiting Qualifiers: Vomiting type: unspecified Vomiting Intractability: non-intractable Nausea presence: with nausea Qualified Code(s): R11.2 - Nausea with vomiting, unspecified CKD (chronic kidney disease) Qualifiers: Chronic kidney disease stage: unspecified stage Qualified Code(s): N18.9 - Chronic kidney disease, unspecified Condition: Good Disposition: ADMITTED INPATIENT Admitting Provider: Dr. Rondon Unit Admitted: ICU Referrals: ROBERT,NO [NO LOCAL MD] - Follow up as needed Scribe Attestation: 10/29/18 15:40 I personally performed the services described in the documentation, reviewed and edited the documentation which was dictated to the scribe in my presence, and it accurately records my words and actions. I personally performed the services described in the documentation, reviewed and edited the documentation which was dictated to the scribe in my presence, and it accurately records my words and actions.
[2018-10-29 13:59] LABS: ABSOLUTE BASOPHILS # (AUTO) 0.2 10^3/uL (0.0-0.2); ABSOLUTE LYMPHOCYTES (AUTO) 1.3 10^3/uL (0.5-4.7); ABSOLUTE MONOCYTES (AUTO) 0.5 10^3/uL (0.1-1.4); ABSOLUTE NEUT (AUTO) 10.7 10^3/uL (1.7-8.2); BASOPHILS % (AUTO) 1.2 % (0-2); EOSINOPHILS % (AUTO) 0.1 % (0-6); HEMATOCRIT 31.2 % (36.0-47.0); HEMOGLOBIN 10.3 g/dL (12.0-15.5); LYMPHOCYTES % (AUTO) 10.1 % (13-45); MEAN CORPUSCULAR HEMOGLOBIN 28.4 pg (27.0-33.4); MEAN CORPUSCULAR HGB CONC 32.8 g/dL (32.0-36.0); MEAN CORPUSCULAR VOLUME 87 fl (80-97); MONOCYTES % (AUTO) 4.1 % (3-13); PLATELET COUNT 353 10^3/uL (150-450); RED BLOOD COUNT 3.61 10^6/uL (3.72-5.28); RED CELL DISTRIBUTION WIDTH 15.9 % (11.5-14.0); SEGMENTED NEUTROPHILS % (AUTO) 84.5 % (42-78); TOTAL CELLS COUNTED % (AUTO) 100 %; WHITE BLOOD COUNT 12.7 10^3/uL (4.0-10.5)
[2018-10-29] MEDS ORDERED: METOPROLOL TARTRATE PF/INJ 5 MG/5 ML SDV IV ONE (14:01)
[2018-10-29 14:12] LABS: ALBUMIN 4.2 g/dL (3.5-5.0); ALKALINE PHOSPHATASE 178 U/L (38-126); ASPARTATE AMINO TRANSFERASE 32 U/L (14-36); BILIRUBIN,DIRECT 0.3 mg/dL (0.0-0.4); BILIRUBIN,TOTAL 0.6 mg/dL (0.2-1.3); BLOOD UREA NITROGEN 36 mg/dL (7-20); CALCIUM 10.1 mg/dL (8.4-10.2); CARBON DIOXIDE 14 mmol/L (22-30); CHLORIDE 106 mmol/L (98-107); CREATINE KINASE 144 U/L (30-135); GLUCOSE 372 mg/dL (75-110); PHOSPHORUS 4.7 mg/dL (2.5-4.5); TOTAL PROTEIN 7.2 g/dL (6.3-8.2)
[2018-10-29 14:13] LABS: ANION GAP 19 (5-19)
[2018-10-29] MEDS ORDERED: HYDROMORPHONE HCL INJ/PF 2 MG/ML AMPULE IV ONE (14:23)
[2018-10-29] MEDS ORDERED: METOCLOPRAMIDE HCL INJ/PF 10 MG/2 ML SDV IV ONE (14:44)
[2018-10-29] MEDS ORDERED: INSULIN REG, HUMAN 100 UNIT/ML 3 ML VIAL (PYX) IV ONE (15:27)
[2018-10-29 15:49] LABS: VENOUS BLOOD BASE EXCESS -16.8 mmol/L; VENOUS BLOOD HCO3 11.9 mmol/L (20-32); VENOUS BLOOD PCO2 39.1 mmHg (35-63)
[2018-10-29 15:56] LABS: VENOUS BLOOD PH 7.1 (7.30-7.42)
[2018-10-29] MEDS ORDERED: ACETAMINOPHEN 325 MG TABLET PO PRN (15:57)
[2018-10-29] MEDS ORDERED: DEXTROSE 40% GEL 15 GM TUBE PO PRN ×2 (16:03)
[2018-10-29] MEDS ORDERED: GLUCAGON,HUMAN RECOMB 1 MG INJ IM PRN (16:03)
[2018-10-29] MEDS ORDERED: NORMAL SALINE 100 ML with INSULIN REGULAR, HUMAN 100 UNIT IV PRN ×2 (16:03)
[2018-10-29] MEDS ORDERED: DEXTROSE 50%-WATER 25 GM/50 ML DISP.SYRIN IV PRN ×2 (16:03)
[2018-10-29 16:05] LABS: AMORPHOUS SEDIMENT,URINE TRACE /HPF; APPEARANCE,URINE CLEAR; BILIRUBIN,URINE NEGATIVE (NEGATIVE); COLOR,URINE STRAW; GLUCOSE, URINE >=500 mg/dL (NEGATIVE); KETONES,URINE 80 mg/dL (NEGATIVE); LEUKOCYTE ESTERASE,URINE NEGATIVE (NEGATIVE); NITRITE,URINE NEGATIVE (NEGATIVE); PROTEIN,URINE 100 mg/dL (NEGATIVE); URINE SPECIFIC GRAVITY 1.014; UROBILINOGEN,URINE NEGATIVE mg/dL (<2.0)
[2018-10-29] MEDS ORDERED: HYDRALAZINE HCL INJ/PF 20 MG/1 ML SDV IV PRN (16:13)
[2018-10-29 16:15] LABS: URINE AMPHETAMINES SCREEN NEGATIVE; URINE BARBITURATES SCREEN NEGATIVE; URINE BENZODIAZEPINES SCREEN NEGATIVE; URINE COCAINE SCREEN NEGATIVE; URINE MARIJUANA (THC) SCREEN UNCONFIRMED POSITIVE; URINE METHADONE SCREEN NEGATIVE; URINE PHENCYCLIDINE SCREEN NEGATIVE
[2018-10-29] MEDS ORDERED: ENOXAPARIN SODIUM INJ 40 MG/0.4 ML DISP.SYRIN SUBCUT SCH (17:00)
[2018-10-29] MEDS: METOPROLOL TARTRATE 50 MG TABLET PO SCH ×2 (17:43→21:50)
[2018-10-29] MEDS: AMLODIPINE BESYLATE 10 MG TABLET PO SCH (17:44)
[2018-10-29] MEDS: LISINOPRIL 10 MG TABLET PO SCH (17:44)
--- NOTE | 2018-10-29 17:47 | EKG REPORT ---
SEVERITY:- ABNORMAL ECG - SINUS TACHYCARDIA VENTRICULAR PREMATURE COMPLEX CONSIDER LEFT VENTRICULAR HYPERTROPHY : Confirmed by: Alvaro Lema MD 29-Oct-2018 17:46:00
[2018-10-29] MEDS: HYDROMORPHONE HCL INJ/PF 2 MG/ML AMPULE IV PRN ×2 (17:57→21:50)
[2018-10-29] MEDS: ONDANSETRON HCL INJ/PF 4 MG/2 ML SDV IV PRN (17:58)
--- NOTE | 2018-10-29 17:59 | CRITICAL CARE ADMISSION REPORT ---
HPI Date:: 10/29/18 Reason for ICU Reason:: acute on chronic pancreatitis, DKA, HPI: Pt is a 38yo woman with chronic pancreatitis, Type I/II DM, HTN, who presented to the ED c/o a several day history of worsening abdominal. Today she developed nausea and vomiting. When she presented to the ED, she was found to be in DKA with a blood sugar of374 and a serum bicarbonate level of 14. She also was found to have acute pancreatitis. Mrs. Lr states that she has recurrent bout of pancreatitis and was told it was due to prior alcohol abuse. SHe has been unable to tolerate oral foods and has been unable to see a GI physician on an outpt basis. In the ED she was given IVF and started on an insulin drip. She continue to c/o severe abdominal pain. - Diagnosis/Plan (1) Acute on chronic pancreatitis Is this a current diagnosis for this admission?: Yes (2) CKD (chronic kidney disease) Qualifiers: Chronic kidney disease stage: unspecified stage Qualified Code(s): N18.9 - Chronic kidney disease, unspecified Is this a current diagnosis for this admission?: Yes (3) DKA, type 2 Is this a current diagnosis for this admission?: Yes (4) Hypertension Qualifiers: Hypertension type: essential hypertension Qualified Code(s): I10 - E ssential (primary) hypertension Is this a current diagnosis for this admission?: Yes (5) IDDM (insulin dependent diabetes mellitus) Is this a current diagnosis for this admission?: Yes Past Medical History Cardiac Medical History: Reports: Hyperlipidema, Hypertension Denies: Congestive Heart Failure, Myocardial Infarction Pulmonary Medical History: Reports: Chronic Obstructive Pulmonary Disease (COPD) Denies: Asthma Neurological Medical History: Reports: Seizures Denies: Migraine Endocrine Medical History: Reports: Diabetes Mellitus Type 1, Diabetes Mellitus Type 2 Denies: Hyperthyroidism, Hypothyroidism Renal/ Medical History: Denies: End Stage Renal Disease GI Medical History: Denies: Gastroesophageal Reflux Disease, Hepatitis, Hiatal Hernia Musculoskeltal Medical History: Denies: Arthritis Skin Medical History: Psychiatric Medical History: Denies: Dementia, Depression Hematology: Reports: Anemia Denies: Bleeding Tendencies Past Surgical History Past Surgical History: Reports: Section - x3, Hysterectomy Social/Family History - Social History Smoking Status: Unknown if Ever Smoked Frequency of Alcohol Use: Occasional Hx Recreational Drug Use: Yes Drugs: Marijuana Hx Prescription Drug Abuse: No - Medication/Allergies Home Medications: Amlodipine Besylate [Norvasc 10 mg Tablet] 10 mg PO DAILY 10/09/18 Insulin Aspart [Novolog Insulin (Aspart) 100 unit/mL] 10 units SQ MEALS 10/09/18 Insulin Glargine,Hum.rec.anlog [Lantus Insulin 100 Unit/1 ml 10 ml] 30 unit SQ QHS 10/09/18 Lisinopril [Prinivil 10 mg Tablet] 10 mg PO DAILY 10/09/18 Metoprolol Tartrate [Lopressor 50 mg Tablet] 50 mg PO Q12 10/09/18 Allergies/Adverse Reactions: hydrocodone [From [place]] Allergy (Verified 10/29/18 13:23) morphine Allergy (Verified 10/29/18 13:23) Physical Exam Vital Signs: Temp Pulse Resp BP Pulse Ox 98.9 F 14 125/74 100 10/29/18 16:43 10/29/18 16:31 10/29/18 16:31 10/29/18 16:31 Intake & Output 10/28/18 10/29/18 10/30/18 06:59 06:59 06:59 Intake Total 1017 Balance 1017 Weight 56.3 kg Weight/Height Weight 56.3 kg Height 5 ft 5 in General appearance: PRESENT: no acute distress, thin, well-developed Head exam: PRESENT: atraumatic, normocephalic Respiratory exam: PRESENT: clear to auscultation teddy, unlabored Cardiovascular exam: PRESENT: tachycardia GI/Abdominal exam: PRESENT: soft, other - non-tender, non-distended. No rebound, no guarding Extremities exam: PRESENT: other - no edema Neurological exam: PRESENT: alert, awake Psychiatric exam: PRESENT: other - tearful Laboratory/Radiographs Laboratory Results: 10/29/18 13:28 10/29/18 13:28 10/29/18 10/29/18 10/29/18 13:28 13:28 13:28 WBC 12.7 H RBC 3.61 L Hgb 10.3 L Hct 31.2 L MCV 87 MCH 28.4 MCHC 32.8 RDW 15.9 H Plt Count 353 Seg Neutrophils % 84.5 H VBG pH VBG pCO2 VBG HCO3 VBG Base Excess Sodium 139.8 Potassium 5.0 Chloride 106 Carbon Dioxide 14 L Anion Gap 19 BUN 36 H Creatinine 1.77 H Est GFR ( Amer) 39 L Glucose 372 H Calcium 10.1 Phosphorus 4.7 H Magnesium 2.1 Total Bilirubin 0.6 AST 32 Alkaline Phosphatase 178 H Total Protein 7.2 Albumin 4.2 Lipase 958.5 H Serum HCG, Qual NEGATIVE Urine Color Urine Appearance Urine pH Ur Specific [place] Urine Protein Urine Glucose (UA) Urine Ketones Urine Blood Urine Nitrite Ur Leukocyte Esterase Urine WBC (Auto) Urine RBC (Auto) 10/29/18 10/29/18 10/29/18 13:28 15:30 15:45 WBC RBC Hgb Hct MCV MCH MCHC RDW Plt Count Seg Neutrophils % VBG pH Cancelled 7.10 L* VBG pCO2 Cancelled 39.1 VBG HCO3 Cancelled 11.9 L VBG Base Excess Cancelled -16.8 Sodium Potassium Chloride Carbon Dioxide Anion Gap BUN Creatinine Est GFR ( Amer) Glucose Calcium Phosphorus Magnesium Total Bilirubin AST Alkaline Phosphatase Total Protein Albumin Lipase Serum HCG, Qual Urine Color STRAW Urine Appearance CLEAR Urine pH 5.0 Ur Specific [place] 1.014 Urine Protein 100 H Urine Glucose (UA) >=500 H Urine Ketones 80 H Urine Blood SMALL H Urine Nitrite NEGATIVE Ur Leukocyte Esterase NEGATIVE Urine WBC (Auto) 2 Urine RBC (Auto) 1 10/29/18 10/29/18 13:28 13:28 Creatine Kinase 144 H Troponin I < 0.012 EKG: EKG: sinus tachycardia, no ST changes Critical Time -: The care of a critically ill patient is dynamic. This note represents a static moment in the admission process. orders and treatments may be given simulataneously and urgentl, and time is not agency sales representative of the treatment process. This patient requires Critical Care secondary to life threating organ or limb dysfunction. Without the need for Critical Care services, the patient is at risk for increasid mortality and morbidity. Provider Note Provider Note: Assessment: 38 yo woman with acute on chronic pancreatitis, alcoholic pancreatitis, DKA, TypeI/II DM, HTN Plan: 1. Respiratory: stable on nasal cannula 2. Pulmonary: h/o COPD. Stable 3. CV: HTN. Resume home BP meds. Prn labetalol 4. Endocrine: TypeI/II DM. DKA. Insulin drip per protocol, IVF, BMP every 6 hours. 5. GI: recurrent acute on chronic pancreatitis, alcoholic pancreatitis. Recent CT scan of abdomen and pelvis showed chronic pancreatitis. WIll order RUQ US to eval for gallstones. Will check TG level.Pt will need GI follow-up as an outp 6. Nutrition: NPO 7. Renal: CKD. Continue IVF. Monitor UOP 8. Prophylaxis: lovenox
[2018-10-29 18:54] LABS: BLOOD UREA NITROGEN 33 mg/dL (7-20); CALCIUM 9.4 mg/dL (8.4-10.2); GLUCOSE 379 mg/dL (75-110); POTASSIUM 4.5 mmol/L (3.6-5.0)
[2018-10-29 18:59] LABS: CHLORIDE 111 mmol/L (98-107)
[2018-10-29 19:04] LABS: ANION GAP 24 (5-19)
[2018-10-29 19:05] LABS: CARBON DIOXIDE 6 mmol/L (22-30)
[2018-10-29] MEDS ORDERED: NORMAL SALINE 1000 ML 1,000 ML IV PRN (19:23)
[2018-10-29] MEDS: DEXTROSE 5%-NORMAL SALINE 1,000 ML IV PRN (20:01)
[2018-10-29 23:06] LABS: BLOOD UREA NITROGEN 33 mg/dL (7-20); CALCIUM 9.4 mg/dL (8.4-10.2); CHLORIDE 117 mmol/L (98-107); GLUCOSE 76 mg/dL (75-110); POTASSIUM 4.3 mmol/L (3.6-5.0)
[2018-10-29 23:16] LABS: ANION GAP 10 (5-19)
[2018-10-29 23:22] LABS: CARBON DIOXIDE 18 mmol/L (22-30)
[2018-10-29] MEDS ORDERED: INSULIN GLARGINE,HUM.REC.ANLOG 1,000 UNIT/10 ML VIAL (PYX) SUBCUT PRN (23:54)
[2018-10-29] MEDS ORDERED: INSULIN GLARGINE,HUM.REC.ANLOG 1,000 UNIT/10 ML VIAL SUBCUT ONE (23:59)
[2018-10-30] MEDS: RINGERS SOLUTION,LACTATED 1,000 ML IV PRN ×3 (01:00→08:17)
[2018-10-30] MEDS ORDERED: INSULIN REG, HUMAN 100 UNIT/ML 3 ML VIAL (PYX) ONE (02:57)
[2018-10-30] MEDS ORDERED: INSULIN REG, HUMAN 100 UNIT/ML 3 ML VIAL (PYX) SUBCUT ONE (03:15)
[2018-10-30 03:22] LABS: ANION GAP 12 (5-19); BLOOD UREA NITROGEN 32 mg/dL (7-20); CALCIUM 9.4 mg/dL (8.4-10.2); CARBON DIOXIDE 16 mmol/L (22-30); CHLORIDE 114 mmol/L (98-107); GLUCOSE 252 mg/dL (75-110); POTASSIUM 4.8 mmol/L (3.6-5.0)
[2018-10-30] MEDS: DEXTROSE 5%-NORMAL SALINE 1,000 ML IV PRN (04:14)
[2018-10-30] MEDS: HYDROMORPHONE HCL INJ/PF 2 MG/ML AMPULE IV PRN ×3 (05:21→21:11)
--- NOTE | 2018-10-30 05:34 | Progress Note ---
Provider Note Provider Note: Critical Care: 10/30/2018 Start time: 00:36 Critical care problem: Low urinary output I was asked to evaluate the patient by nursing staff due minimal/substandard urinary output. Patient was noted to have marked pain in her epigastric region radiating through to her back at the time of my evaluation. Bowel sounds are present but hypoactive. Abdomen is tender in the upper abdomen to light and deep palpation. Chest is clear to auscultation and percussion throughout all decker. Heart shows regular rate and rhythm without murmurs clicks gallops or rubs. Vital signs are stable. The patient's bladder scan revealed essentially no urine present and she had not voided recently. The patient was initially tr eated with IV fluids lactated Ringer's at 500 mL/h x 2 L. Her response to her fluid bolus was no out of the desired level of urine output. Attempts of trying to bolus patient with a more rapidly infused bolus were limited due to her poor IV access. A surgical consultation will be obtained for central line placement and patient will be bolused with rapidly infused IV fluids x1 to 2 L to evaluate her ability to maintain intravascular volume long enough to create adequate urine output. Patient may well be third spacing fluids and may require additional interventions. I have discussed this plan with patient and she is in agreement with an acceptance of the plan. She said "they always start a central line on me when I come in". End time: 05:33 Total face to patient critical care time: 26 minutes
--- NOTE | 2018-10-30 06:20 | Operative Report ---
Operative Report DATE OF SURGERY: 10/30/18 PREOPERATIVE DIAGNOSIS: poor veins for iv and needed central line for meds and fluids POSTOPERATIVE DIAGNOSIS: same OPERATION: Placement of central line SURGEON: RADHIKA HAYES ANESTHESIA: Local TISSUE REMOVED OR ALTERED: none COMPLICATIONS: none ESTIMATED BLOOD LOSS: 3ccs QUANTITATIVE BLOOD LOSS: 3 INTRAOPERATIVE FINDINGS: good size IJV PROCEDURE: Patient was placed in Trendelenburg position in the right neck prepped and draped in the usual sterile fashion. With the use of the ultrasound the internal jugular vein was then identified and local anesthesia infiltrated on the skin. The internal jugular vein was then punctured and guidewire passed through the needle and the needle removed and the insertion site dilated. A triple-lumen catheter was then inserted through the guidewire up to a distance of about 16 cm. All the 3 ports of the catheter aspirated blood easily and instilled saline easily. Catheter was then anchored to the skin with 3-0 silk. Biopatch placed at the insertion site and a sterile transparent dressing placed over the Biopatch and catheter. A chest x-ray was immediately obtained which showed the catheter in good position and closed in the atrium with no evidence of pneumothorax. Patient tolerated procedure well.
[2018-10-30] MEDS: INSULIN REG, HUMAN 100 UNIT/ML 3 ML VIAL (PYX) SUBCUT SCH ×5 (06:24→21:24)
[2018-10-30] MEDS ORDERED: RINGERS SOLUTION,LACTATED 1,000 ML IV ONE (06:45)
[2018-10-30 06:59] LABS: HEMOGLOBIN 8.5 g/dL (12.0-15.5); MEAN CORPUSCULAR HEMOGLOBIN 28.6 pg (27.0-33.4); MEAN CORPUSCULAR HGB CONC 32.6 g/dL (32.0-36.0); MEAN CORPUSCULAR VOLUME 88 fl (80-97); PLATELET COUNT 291 10^3/uL (150-450); RED BLOOD COUNT 2.96 10^6/uL (3.72-5.28); RED CELL DISTRIBUTION WIDTH 16.2 % (11.5-14.0); WHITE BLOOD COUNT 13.3 10^3/uL (4.0-10.5)
[2018-10-30 07:11] LABS: AMYLASE 179 U/L (30-110); ANION GAP 10 (5-19); BLOOD UREA NITROGEN 27 mg/dL (7-20); CALCIUM 9.2 mg/dL (8.4-10.2); CARBON DIOXIDE 19 mmol/L (22-30); CHLORIDE 115 mmol/L (98-107); CHOLESTEROL 206.88 mg/dL (0-200); GLUCOSE 138 mg/dL (75-110); POTASSIUM 4.3 mmol/L (3.6-5.0); TRIGLYCERIDES 118 mg/dL (<150)
[2018-10-30 07:22] LABS: DIRECT LDL 99 mg/dL (<100)
--- NOTE | 2018-10-30 07:30 | RADIOLOGY REPORT (SQ) ---
EXAM DESCRIPTION: X-ray single view chest. CLINICAL HISTORY: 38 years Female, central line placement COMPARISON: 10/09/2018 TECHNIQUE: Single portable x-ray view of the chest performed on 10/30/2018 at 6:08 AM FINDINGS: The lungs are well expanded and are clear. There is no evidence of a pneumothorax. The cardiac silhouette is normal in size and configuration. The mediastinal contours are normal. No acute osseous abnormality is identified. No focal soft tissue abnormalities are seen. Lines and tubes: There has been interval insertion of a right IJ central venous catheter. The tip projects over the region of the cavoatrial junction. The left IJ central venous catheter has been removed. IMPRESSION: No evidence of acute intrathoracic disease. The tip of the right IJ central venous catheter projects over the region of the cavoatrial junction.
[2018-10-30] MEDS ORDERED: VANCOMYCIN HCL 0 MG in DEXTROSE 5%-WATER 250 ML IV NR (08:15)
--- NOTE | 2018-10-30 09:25 | RADIOLOGY REPORT (SQ) ---
EXAM DESCRIPTION: U/S ABDOMEN LIMITED W/O DOP COMPLETED DATE/TIME: 10/29/2018 6:23 pm REASON FOR STUDY: pancreatitis, eval for gallstones COMPARISON: 06/16/2018 TECHNIQUE: Dynamic and static grayscale images acquired of the abdomen and recorded on PACS. Isamaro stephy selected color Doppler and spectral images recorded. LIMITATIONS: None. FINDINGS: PANCREAS: No masses. Visualized pancreatic duct normal caliber. LIVER: No masses. Echotexture normal. LIVER VASCULATURE: Normal directional flow of the main portal vein and hepatic veins. GALLBLADDER: Sludge in the gallbladder without discrete calculi. Normal wall thickness. No perichole cystic fluid. ULTRASOUND-DETECTED BURR'S SIGN: Negative. INTRAHEPATIC DUCTS AND COMMON DUCT: CBD and intrahepatic ducts normal caliber. No filling defects. INFERIOR VENA CAVA: Normal flow. AORTA: No aneurysm. RIGHT KIDNEY: Normal size. Normal echogenicity. No solid or suspicious masses. No hydronephrosis. No calcifications. PERITONEAL AND RIGHT PLEURAL SPACE: No ascites or effusions. OTHER: No other significant findings. IMPRESSION: Sludge in the gallbladder without discrete calculi. No gallbladder wall thickening. No pericholecystic fluid. No biliary ductal dilation. Negative sonographic Burr's sign TECHNICAL DOCUMENTATION: JOB ID: [id number] [employer]- All Rights Reserved Reading location - IP/workstation name: [email or web address]
--- NOTE | 2018-10-30 11:01 | PDOC PROGRESS REPORT ---
Subjective Progress Note for:: 10/30/18 Subjective:: ICU Progress Note: Pt is off her insulin drip. Had decreased UOP overnight. States her abdominal pain has improved. Reason For Visit: DKA, ACUTE ON CHRONIC PANCREATITIS Physical Exam Vital Signs: Temp Pulse Resp BP Pulse Ox 97.7 F 77 7 L 118/69 98 10/30/18 10:01 10/30/18 08:00 10/30/18 10:01 10/30/18 10:00 10/30/18 10:01 Intake & Output 10/29/18 10/30/18 10/31/18 06:59 06:59 06:59 Intake Total 4390 506 Output Total 305 1050 Balance 4085 -544 Weight 57.9 kg General appearance: PRESENT: no acute distress, thin, well-developed, well- nourished Head exam: PRESENT: atraumatic, normocephalic Respiratory exam: PRESENT: clear to auscultation teddy, unlabored Cardiovascular exam: PRESENT: RRR, other - no mrg GI/Abdominal exam: PRESENT: soft, other - non-tender, non-distended. no rebound, no gaurding Gentrourinary exam: PRESENT: indwelling catheter Extremities exam: PRESENT: other - no edema Results Laboratory Results: 10/30/18 06:40 10/30/18 06:35 10/29/18 10/29/18 10/29/18 13:28 13:28 13:28 WBC 12.7 H RBC 3.61 L Hgb 10.3 L Hct 31.2 L MCV 87 MCH 28.4 MCHC 32.8 RDW 15.9 H Plt Count 353 Seg Neutrophils % 84.5 H VBG pH VBG pCO2 VBG HCO3 VBG Base Excess Sodium 139.8 Potassium 5.0 Chloride 106 Carbon Dioxide 14 L Anion Gap 19 BUN 36 H Creatinine 1.77 H Est GFR ( Amer) 39 L Glucose 372 H Calcium 10.1 Phosphorus 4.7 H Magnesium 2.1 Total Bilirubin 0.6 AST 32 Alkaline Phosphatase 178 H Total Protein 7.2 Albumin 4.2 Triglycerides Cholesterol LDL Cholesterol Direct VLDL Cholesterol HDL Cholesterol Amylase Lipase 958.5 H Serum HCG, Qual NEGATIVE Urine Color Urine Appearance Urine pH Ur Specific Rogers Urine Protein Urine Glucose (UA) Urine Ketones Urine Blood Urine Nitrite Ur Leukocyte Esterase Urine WBC (Auto) Urine RBC (Auto) 10/29/18 10/29/18 10/29/18 13:28 15:30 15:45 WBC RBC Hgb Hct MCV MCH MCHC RDW Plt Count Seg Neutrophils % VBG pH Cancelled 7.10 L* VBG pCO2 Cancelled 39.1 VBG HCO3 Cancelled 11.9 L VBG Base Excess Cancelled -16.8 Sodium Potassium Chloride Carbon Dioxide Anion Gap BUN Creatinine Est GFR ( Amer) Glucose Calcium Phosphorus Magnesium Total Bilirubin AST Alkaline Phosphatase Total Protein Albumin Triglycerides Cholesterol LDL Cholesterol Direct VLDL Cholesterol HDL Cholesterol Amylase Lipase Serum HCG, Qual Urine Color STRAW Urine Appearance CLEAR Urine pH 5.0 Ur Specific Rogers 1.014 Urine Protein 100 H Urine Glucose (UA) >=500 H Urine Ketones 80 H Urine Blood SMALL H Urine Nitrite NEGATIVE Ur Leukocyte Esterase NEGATIVE Urine WBC (Auto) 2 Urine RBC (Auto) 1 10/29/18 10/29/18 10/30/18 18:20 22:26 02:35 WBC RBC Hgb Hct MCV MCH MCHC RDW Plt Count Seg Neutrophils % VBG pH VBG pCO2 VBG HCO3 VBG Base Excess Sodium 141.4 145.1 H 142.1 Potassium 4.5 4.3 4.8 Chloride 111 H 117 H 114 H Carbon Dioxide 6 L* 18 L D 16 L Anion Gap 24 H 10 12 BUN 33 H 33 H 32 H Creatinine 1.80 H 1.77 H 2.02 H Est GFR ( Amer) 38 L 39 L 33 L Glucose 379 H 76 252 H Calcium 9.4 9.4 9.4 Phosphorus Magnesium Total Bilirubin AST Alkaline Phosphatase Total Protein Albumin Triglycerides Cholesterol LDL Cholesterol Direct VLDL Cholesterol HDL Cholesterol Amylase Lipase Serum HCG, Qual Urine Color Urine Appearance Urine pH Ur Specific Rogers Urine Protein Urine Glucose (UA) Urine Ketones Urine Blood Urine Nitrite Ur Leukocyte Esterase Urine WBC (Auto) Urine RBC (Auto) 10/30/18 10/30/18 06:35 06:40 WBC 13.3 H RBC 2.96 L Hgb 8.5 L Hct 26.0 L MCV 88 MCH 28.6 MCHC 32.6 RDW 16.2 H Plt Count 291 Seg Neutrophils % VBG pH VBG pCO2 VBG HCO3 VBG Base Excess Sodium 143.5 Potassium 4.3 Chloride 115 H Carbon Dioxide 19 L Anion Gap 10 BUN 27 H Creatinine 1.74 H Est GFR ( Amer) 40 L Glucose 138 H Calcium 9.2 Phosphorus 4.0 Magnesium 1.7 Total Bilirubin AST Alkaline Phosphatase Total Protein Albumin Triglycerides 118 Cholesterol 206.88 H LDL Cholesterol Direct 99 VLDL Cholesterol 24.0 HDL Cholesterol 101 Amylase 179 H Lipase 727.5 H Serum HCG, Qual Urine Color Urine Appearance Urine pH Ur Specific Rogers Urine Protein Urine Glucose (UA) Urine Ketones Urine Blood Urine Nitrite Ur Leukocyte Esterase Urine WBC (Auto) Urine RBC (Auto) 10/29/18 10/29/18 10/29/18 13:28 13:28 18:20 Creatine Kinase 144 H Troponin I < 0.012 < 0.012 10/29/18 10/30/18 22:20 04:03 Creatine Kinase Troponin I < 0.012 < 0.012 Impressions: Abdomen Ultrasound 10/29/18 00:00 IMPRESSION: Sludge in the gallbladder without discrete calculi. No gallbladder wall thickening. No pericholecystic fluid. No biliary ductal dilation. Negative sonographic Burr's sign Chest X-Ray 10/30/18 00:00 IMPRESSION: No evidence of acute intrathoracic disease. The tip of the right IJ central venous catheter projects over the region of the cavoatrial junction. Assessment & Plan - Diagnosis (1) Acute on chronic pancreatitis Is this a current diagnosis for this admission?: Yes (2) CKD (chronic kidney disease) Qualifiers: Chronic kidney disease stage: unspecified stage Qualified Code(s): N18.9 - Chronic kidney disease, unspecified Is this a current diagnosis for this admission?: Yes (3) DKA, type 2 Is this a current diagnosis for this admission?: Yes (4) Hypertension Qualifiers: Hypertension type: essential hypertension Qualified Code(s): I10 - Essential (primary) hypertension Is this a current diagnosis for this admission?: Yes (5) IDDM (insulin dependent diabetes mellitus) Is this a current diagnosis for this admission?: Yes (6) Sepsis Qualifiers: Sepsis type: sepsis due to unspecified organism Sepsis acute organ dysfunction status: with acute organ dysfunction Severe sepsis acute organ dysfunction type: acute renal failure Acute renal failure type: unspecified Severe sepsis shock status: without septic shock Qualified Code(s): A41.9 - Sepsis, unspecified organism; R65.20 - Severe sepsis without septic shock; N17.9 - Acute kidney failure, unspecified Is this a current diagnosis for this admission?: Yes (7) Acute kidney injury Is this a current diagnosis for this admission?: Yes - Plan Summary Plan Summary: Assessment: 38 yo woman with acute on chronic pancreatitis, alcoholic pancreatitis, DKA, TypeI/II DM, HTN Plan: 1. Respiratory: stable on nasal cannula 2. Pulmonary: h/o COPD. Stable 3. CV: HTN. Resume home BP meds. Continue IVF 4. Endocrine: TypeI/II DM. DKA, resolved. Start lantus 20 units daily, SSI 5. GI: recurrent acute on chronic pancreatitis, alcoholic pancreatitis. Ab US negative for gallstones. Pt now with RONIT, decreasing UOP and worsening leukocytosis. Worrisome for pancreatic necrosis. Will obtain CT of abdomen and pelvis. WIll start cefepime and flagyl. 6. ID: sepsis, acute pancreatitis. Will check CT of abdomen and pelvis. Will start cefepime and flagyl 7. Renal: CKD,RONIT. Continue IVF. Rivero inserted. Renally dose meds. 8. Nutrition: clear liquid diet 9. Prophylaxis: lovenox 10. Disposition: stable for transfer out of the ICU.
[2018-10-30] MEDS: METOPROLOL TARTRATE 50 MG TABLET PO SCH ×2 (11:11→21:04)
[2018-10-30] MEDS: ENOXAPARIN SODIUM INJ 30 MG/0.3 ML DISP.SYRIN SUBCUT SCH (11:12)
[2018-10-30] MEDS: AMLODIPINE BESYLATE 10 MG TABLET PO SCH (11:12)
[2018-10-30] MEDS: LISINOPRIL 10 MG TABLET PO SCH (11:12)
[2018-10-30] MEDS: CEFEPIME 2 GM/D5W RTU 2 GM/50 ML RTUPB IV SCH ×2 (11:13→22:09)
[2018-10-30] MEDS: METRONIDAZOLE 500 MG/NS RTU 500 MG/100 ML RTUPB IV SCH ×3 (11:14→21:04)
--- NOTE | 2018-10-30 11:32 | RADIOLOGY REPORT (SQ) ---
EXAM DESCRIPTION: CT ABD/PELVIS NO ORAL OR IV COMPLETED DATE/TIME: 10/30/2018 11:02 am REASON FOR STUDY: acute on chronic pancreatitis, severe sepsis, RONIT COMPARISON: 10/09/2018. TECHNIQUE: CT scan of the abdomen and pelvis performed without intravenous or oral contrast. Images reviewed with lung, soft tissue, and bone windows. Reconstructed coronal and sagittal MPR images revi ewed. All images stored on PACS. All CT scanners at this facility use dose modulation, iterative reconstruction, and/or weight based d osing when appropriate to reduce radiation dose to as low as reasonably achievable (ALARA). [facility]: Dose Right [facility]: CareDose [facility]: Dose Right [facility]: Teradose 4D [facility]: [employer] RADIATION DOSE: CT Rad equipment meets quality standard of care and radiation dose reduction techniq ues were employed. CTDIvol: 4.0 mGy. DLP: 222 mGy-cm.mGy. LIMITATIONS: None. FINDINGS: LOWER CHEST: No significant findings. No nodules or infiltrates. NON-CONTRASTED LIVER, SPLEEN, ADRENALS: Evaluation limited by lack of IV contrast. No identified sign ificant masses. PANCREAS: Coarse calcifications. Mild dilation of the pancreatic duct. No masses. No peripancreatic inflammatory changes. GALLBLADDER: No identified stones by CT criteria. No inflammatory changes to suggest cholecystitis. RIGHT KIDNEY AND URETER: No suspicious masses. Assessment limited by lack of IV contrast. No signif icant calcifications. No hydronephrosis or hydroureter. LEFT KIDNEY AND URETER: No suspicious masses. Assessment limited by lack of IV contrast. No signifi cant calcifications. No hydronephrosis or hydroureter. AORTA AND RETROPERITONEUM: No aneurysm. No retroperitoneal masses or adenopathy. BOWEL AND PERITONEAL CAVITY: No obvious masses or inflammatory changes. No free fluid. APPENDIX: Normal. PELVIS, BLADDER, AND ABDOMINAL WALL:No abnormal masses. No free fluid. Bladder normal. BONES: No significant findings. OTHER: No other significant finding. IMPRESSION: 1. STABLE COARSE PANCREATIC CALCIFICATIONS SECONDARY TO CHRONIC PANCREATITIS. NO MASS OR ABNORMAL FL UID COLLECTION. 2. NO OTHER SIGNIFICANT OR ACUTE PROCESS IN THE ABDOMEN OR PELVIS. COMMENT: Quality ID # [id number]: Final reports with documentation of one or more dose reduction techniques (e.g., Automated exposure control, adjustment of the mA and/or kV according to patient size, use of iterative reconstruction technique) TECHNICAL DOCUMENTATION: JOB ID: [id number] [employer]- All Rights Reserved Reading location - IP/workstation name: [email or web address]
[2018-10-30] MEDS: OXYCODONE-ACETAMINOPHEN 5-325 MG TABLET PO PRN ×2 (11:39→15:44)
[2018-10-30] MEDS ORDERED: VANCOMYCIN HCL 1,000 MG in DEXTROSE 5%-WATER 250 ML IV SCH (12:00)
[2018-10-30] MEDS ORDERED: INSULIN GLARGINE,HUM.REC.ANLOG 1,000 UNIT/10 ML VIAL SUBCUT SCH (22:00)
[2018-10-31] MEDS: RINGERS SOLUTION,LACTATED 1,000 ML IV PRN ×3 (00:35→20:10)
[2018-10-31] MEDS: METRONIDAZOLE 500 MG/NS RTU 500 MG/100 ML RTUPB IV SCH ×2 (02:18→09:58)
[2018-10-31] MEDS: OXYCODONE-ACETAMINOPHEN 5-325 MG TABLET PO PRN ×2 (03:03→08:17)
[2018-10-31 03:38] LABS: ABSOLUTE BASOPHILS # (AUTO) 0.1 10^3/uL (0.0-0.2); ABSOLUTE EOSINOPHILS # (AUTO) 0.2 10^3/uL (0.0-0.6); ABSOLUTE LYMPHOCYTES (AUTO) 3.5 10^3/uL (0.5-4.7); ABSOLUTE MONOCYTES (AUTO) 0.8 10^3/uL (0.1-1.4); ABSOLUTE NEUT (AUTO) 5.8 10^3/uL (1.7-8.2); BASOPHILS % (AUTO) 0.6 % (0-2); EOSINOPHILS % (AUTO) 1.7 % (0-6); HEMATOCRIT 25.5 % (36.0-47.0); HEMOGLOBIN 8.6 g/dL (12.0-15.5); MEAN CORPUSCULAR HEMOGLOBIN 29.2 pg (27.0-33.4); MEAN CORPUSCULAR HGB CONC 33.7 g/dL (32.0-36.0); MEAN CORPUSCULAR VOLUME 87 fl (80-97); MONOCYTES % (AUTO) 7.7 % (3-13); PLATELET COUNT 242 10^3/uL (150-450); RED BLOOD COUNT 2.94 10^6/uL (3.72-5.28); RED CELL DISTRIBUTION WIDTH 15.8 % (11.5-14.0); TOTAL CELLS COUNTED % (AUTO) 100 %; WHITE BLOOD COUNT 10.3 10^3/uL (4.0-10.5)
[2018-10-31 03:55] LABS: AMYLASE 170 U/L (30-110); ANION GAP 8 (5-19); BLOOD UREA NITROGEN 14 mg/dL (7-20); CALCIUM 8.9 mg/dL (8.4-10.2); CARBON DIOXIDE 22 mmol/L (22-30); CHLORIDE 109 mmol/L (98-107); GLUCOSE 126 mg/dL (75-110); PHOSPHORUS 3.5 mg/dL (2.5-4.5); POTASSIUM 3.7 mmol/L (3.6-5.0)
[2018-10-31] MEDS: HYDROMORPHONE HCL INJ/PF 2 MG/ML AMPULE IV PRN ×5 (05:47→23:22)
[2018-10-31] MEDS: ONDANSETRON HCL INJ/PF 4 MG/2 ML SDV IV PRN ×2 (05:47→14:07)
[2018-10-31] MEDS: INSULIN REG, HUMAN 100 UNIT/ML 3 ML VIAL (PYX) SUBCUT SCH ×4 (07:55→23:24)
[2018-10-31] MEDS: OXYCODONE HCL IR 5 MG TABLET PO PRN ×3 (09:53→18:42)
[2018-10-31] MEDS: METOPROLOL TARTRATE 50 MG TABLET PO SCH ×2 (09:54→23:22)
[2018-10-31] MEDS: AMLODIPINE BESYLATE 10 MG TABLET PO SCH (09:54)
[2018-10-31] MEDS: LISINOPRIL 10 MG TABLET PO SCH (09:54)
[2018-10-31] MEDS: CEFEPIME 2 GM/D5W RTU 2 GM/50 ML RTUPB IV SCH (09:57)
[2018-10-31] MEDS: ENOXAPARIN SODIUM INJ 30 MG/0.3 ML DISP.SYRIN SUBCUT SCH (09:59)
--- NOTE | 2018-10-31 11:59 | PDOC PROGRESS REPORT ---
Subjective Progress Note for:: 10/31/18 Subjective:: Still having abdominal pain but less with food. Reason For Visit: DKA, ACUTE ON CHRONIC PANCREATITIS Physical Exam Vital Signs: Temp Pulse Resp BP Pulse Ox 98.6 F 79 8 L 192/118 H 100 10/31/18 10:00 10/31/18 08:00 10/31/18 10:00 10/31/18 09:58 10/31/18 10:00 Intake & Output 10/30/18 10/31/18 11/01/18 06:59 06:59 06:59 Intake Total 4390 6056 Output Total 305 3475 1000 Balance 4085 2581 -1000 Weight 57.9 kg 61.3 kg General appearance: PRESENT: no acute distress, thin Head exam: PRESENT: atraumatic Eye exam: PRESENT: EOMI Ear exam: PRESENT: normal external ear exam Mouth exam: PRESENT: dry mucosa Neck exam: PRESENT: full ROM Respiratory exam: PRESENT: clear to auscultation teddy, unlabored Cardiovascular exam: PRESENT: RRR Pulses: PRESENT: normal radial pulses GI/Abdominal exam: PRESENT: tenderness - Pain in midepigatrium Rectal exam: PRESENT: deferred Extremities exam: PRESENT: full ROM Musculoskeletal exam: PRESENT: ambulatory, full ROM Neurological exam: PRESENT: alert, oriented to person, oriented to place, oriented to time, oriented to situation Psychiatric exam: PRESENT: appropriate affect Skin exam: PRESENT: normal color Results Laboratory Results: 10/31/18 03:00 10/31/18 03:00 10/31/18 10/31/18 03:00 03:00 WBC 10.3 RBC 2.94 L Hgb 8.6 L Hct 25.5 L MCV 87 MCH 29.2 MCHC 33.7 RDW 15.8 H Plt Count 242 Seg Neutrophils % 56.0 Sodium 138.6 Potassium 3.7 Chloride 109 H Carbon Dioxide 22 Anion Gap 8 BUN 14 Creatinine 1.31 H Est GFR ( Amer) 55 L Glucose 126 H Calcium 8.9 Phosphorus 3.5 Amylase 170 H Lipase 770.8 H 10/29/18 10/29/18 10/29/18 13:28 13:28 18:20 Creatine Kinase 144 H Troponin I < 0.012 < 0.012 10/29/18 10/30/18 22:20 04:03 Creatine Kinase Troponin I < 0.012 < 0.012 Impressions: Abdomen Ultrasound 10/29/18 00:00 IMPRESSION: Sludge in the gallbladder without discrete calculi. No gallbladder wall thickening. No pericholecystic fluid. No biliary ductal dilation. Negative sonographic Burr's sign Abdomen/Pelvis CT 10/30/18 00:00 IMPRESSION: 1. STABLE COARSE PANCREATIC CALCIFICATIONS SECONDARY TO CHRONIC PANCREATITIS. NO MASS OR ABNORMAL FLUID COLLECTION. 2. NO OTHER SIGNIFICANT OR ACUTE PROCESS IN THE ABDOMEN OR PELVIS. Chest X-Ray 10/30/18 00:00 IMPRESSION: No evidence of acute intrathoracic disease. The tip of the right IJ central venous catheter projects over the region of the cavoatrial junction. Assessment & Plan - Diagnosis (1) Acute kidney injury Is this a current diagnosis for this admission?: Yes (2) Vomiting Qualifiers: Vomiting type: unspecified Vomiting Intractability: non-intractable Nausea presence: with nausea Qualified Code(s): R11.2 - Nausea with vomiting, unspecified Is this a current diagnosis for this admission?: No (3) Abdominal pain Qualifiers: Is this a current diagnosis for this admission?: Yes (4) Acute on chronic pancreatitis Is this a current diagnosis for this admission?: Yes (6) DKA (diabetic ketoacidoses) Qualifiers: Diabetes mellitus type: due to underlying condition Diabetes mellitus complication detail: without coma Qualified Code(s): E08.10 - Diabetes mellitus due to underlying condition with ketoacidosis without coma Is this a current diagnosis for this admission?: Yes Plan: Continue sub-Q insulin. (8) Acute on chronic pancreatitis Is this a current diagnosis for this admission?: Yes (9) CKD (chronic kidney disease) Qualifiers: Chronic kidney disease stage: stage 2 (mild) Qualified Code(s): N18.2 - Chronic kidney disease, stage 2 (mild) Is this a current diagnosis for this admission?: Yes Plan: At baseline (10) Hypertension Qualifiers: Hypertension type: essential hypertension Qualified Code(s): I10 - Essential (primary) hypertension Is this a current diagnosis for this admission?: Yes Plan: If BP still high with pain control there is room to increase either metoprolol or lisinipril (11) IDDM (insulin dependent diabetes mellitus) Is this a current diagnosis for this admission?: Yes Plan: Back on sub-Q insulin (12) DKA (diabetic ketoacidoses) Qualifiers: Diabetes mellitus type: type 1 Diabetes mellitus complication detail: with coma Qualified Code(s): E10.11 - Type 1 diabetes mellitus with ketoacidosis with coma Is this a current diagnosis for this admission?: No Plan: Resolved - Time Time Spent with patient: 35 or more minutes Total Critical Time (Minutes): 40 - 3 Visits Anticipated discharge: Home Within: within 24 hours - Inpatient Certification Medical Necessity: Significant Comorbidiites Make Outpatient Treatment Too Risky, Need Close Monitoring Due to Risk of Patient Decompensation, Need For IV Fluids, Need for Pain Control, Risk of Complication if Not Cared For in Hospital
[2018-10-31] MEDS ORDERED: (PENDING PHARMACY ID) (Insulin Aspart [Novolog Insulin (Aspart) 100 Unit/Ml] 10 UNITS) SQ SCH (12:00)
--- NOTE | 2018-10-31 12:08 | PDOC CONSULTATION ---
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 will benefit from pancreatic enzyme supplementation will need 2-3 pills prior to each meal or snack Past Medical History Cardiac Medical History: Reports: Hyperlipidema, Hypertension Denies: Congestive Heart Failure, Myocardial Infarction Pulmonary Medical History: Reports: Chronic Obstructive Pulmonary Disease (COPD) Denies: Asthma Neurological Medical History: Reports: Seizures Denies: Migraine Endocrine Medical History: Reports: Diabetes Mellitus Type 1, Diabetes Mellitus Type 2 Denies: Hyperthyroidism, Hypothyroidism Renal/ Medical History: Denies: End Stage Renal Disease GI Medical History: Denies: Gastroesophageal Reflux Disease, Hepatitis, Hiatal Hernia Musculoskeltal Medical History: Denies: Arthritis Skin Medical History: Psychiatric Medical History: Denies: Dementia, Depression Hematology: Reports: Anemia Denies: Bleeding Tendencies Past Surgical History Past Surgical History: Reports: Section - x3, Hysterectomy Social History Smoking Status: Unknown if Ever Smoked Frequency of Alcohol Use: Occasional Hx Recreational Drug Use: Yes Drugs: Marijuana Hx Prescription Drug Abuse: No Family History Family History: Reviewed & Not Pertinent, DM, Hypertension Parental Family History Reviewed: Yes Children Family History Reviewed: Unknown Sibling(s) Family History Reviewed.: Unknown Medication/Allergy Home Medications: Amlodipine Besylate [Norvasc 10 mg Tablet] 10 mg PO DAILY 10/09/18 Insulin Aspart [Novolog Insulin (Aspart) 100 unit/mL] 10 units SQ MEALS 10/09/18 Insulin Glargine,Hum.rec.anlog [Lantus Insulin 100 Unit/1 ml 10 ml] 30 unit SQ QHS 10/09/18 Lisinopril [Prinivil 10 mg Tablet] 10 mg PO DAILY 10/09/18 Metoprolol Tartrate [Lopressor 50 mg Tablet] 50 mg PO Q12 10/09/18 Allergies/Adverse Reactions: hydrocodone [From [facility]] Allergy (Verified 10/29/18 13:23) morphine Allergy (Verified 10/29/18 13:23) Review of Systems Constitutional: ABSENT: fever(s), headache(s), night sweats Eyes: ABSENT: visual disturbances Ears: ABSENT: hearing changes Nose, Mouth, and Throat: ABSENT: sore throat Cardiovascular: ABSENT: orthropnea, palpitations Gastrointestinal: ABSENT: dysphagia, hematochezia, melena Genitourinary: ABSENT: dysuria, hematuria Integumentary: ABSENT: lesions, pruritus Neurological: ABSENT: syncope, tremor(s), weakness Endocrine: ABSENT: polydipsia, polyphagia, polyuria Hematologic/Lymphatic: ABSENT: easy bruising Physical Exam Vital Signs: Temp Pulse Resp BP Pulse Ox 98.6 F 79 8 L 192/118 H 100 10/31/18 10:00 10/31/18 08:00 10/31/18 10:00 10/31/18 09:58 10/31/18 10:00 Intake & Output 10/30/18 10/31/18 11/01/18 06:59 06:59 06:59 Intake Total 4390 6056 Output Total 305 3475 1000 Balance 4085 2581 -1000 Weight 57.9 kg 61.3 kg General appearance: PRESENT: no acute distress Head exam: PRESENT: atraumatic, normocephalic Eye exam: PRESENT: EOMI, PERRLA. ABSENT: scleral icterus Mouth exam: PRESENT: moist, neck supple Neck exam: ABSENT: meningismus, thyromegaly Respiratory exam: PRESENT: symmetrical. ABSENT: tachypnea, unlabored, wheezes Cardiovascular exam: PRESENT: RRR, +S1 GI/Abdominal exam: ABSENT: distended, rebound, tenderness Extremities exam: ABSENT: joint swelling Musculoskeletal exam: ABSENT: full ROM Neurological exam: PRESENT: oriented to time, oriented to situation, CN II-XII grossly intact Focused psych exam: ABSENT: restlessness Skin exam: PRESENT: vesicles. ABSENT: mottled, petechiae Results Laboratory Results: 10/31/18 03:00 10/31/18 03:00 10/31/18 10/31/18 03:00 03:00 WBC 10.3 RBC 2.94 L Hgb 8.6 L Hct 25.5 L MCV 87 MCH 29.2 MCHC 33.7 RDW 15.8 H Plt Count 242 Seg Neutrophils % 56.0 Sodium 138.6 Potassium 3.7 Chloride 109 H Carbon Dioxide 22 Anion Gap 8 BUN 14 Creatinine 1.31 H Est GFR ( Amer) 55 L Glucose 126 H Calcium 8.9 Phosphorus 3.5 Amylase 170 H Lipase 770.8 H 10/29/18 10/29/18 10/29/18 13:28 13:28 18:20 Creatine Kinase 144 H Troponin I < 0.012 < 0.012 10/29/18 10/30/18 22:20 04:03 Creatine Kinase Troponin I < 0.012 < 0.012 Impressions: Abdomen Ultrasound 10/29/18 00:00 IMPRESSION: Sludge in the gallbladder without discrete calculi. No gallbladder wall thickening. No pericholecystic fluid. No biliary ductal dilation. Negative sonographic Burr's sign Abdomen/Pelvis CT 10/30/18 00:00 IMPRESSION: 1. STABLE COARSE PANCREATIC CALCIFICATIONS SECONDARY TO CHRONIC PANCREATITIS. NO MASS OR ABNORMAL FLUID COLLECTION. 2. NO OTHER SIGNIFICANT OR ACUTE PROCESS IN THE ABDOMEN OR PELVIS. Chest X-Ray 10/30/18 00:00 IMPRESSION: No evidence of acute intrathoracic disease. The tip of the right IJ central venous catheter projects over the region of the cavoatrial junction. Assessment & Plan - Diagnosis (1) Acute on chronic pancreatitis Is this a current diagnosis for this admission?: Yes Plan: she will need to have pancreatic enzyme supplementation on discharge 2-3 pills of Zenpep of other alternative as carried by [facility] pharmacy patient likely has both beta and alpha cell damage due to on going pancreatic damage will follow along - Time Time Spent: 50 to 70 Minutes
[2018-10-31] MEDS: INSULIN LISPRO 100 UNIT/ML 3 ML VIAL SUBCUT SCH ×2 (12:30→16:51)
[2018-10-31] MEDS: LIPASE/PROTEASE/AMYLASE 1 CAP CAPSULE.DR PO SCH (16:16)
[2018-10-31] MEDS ORDERED: ONDANSETRON HCL INJ/PF 4 MG/2 ML SDV IV ONE (16:45)
[2018-10-31] MEDS ORDERED: PROMETHAZINE HCL INJ 25 MG/1 ML VIAL IV ONE (18:45)
[2018-10-31] MEDS ORDERED: INSULIN GLARGINE,HUM.REC.ANLOG 1,000 UNIT/10 ML VIAL (PYX) SUBCUT ONE (23:12)
[2018-10-31] MEDS: INSULIN GLARGINE,HUM.REC.ANLOG 1,000 UNIT/10 ML VIAL SUBCUT SCH (23:25)
[2018-11-01 05:36] LABS: ANION GAP 5 (5-19); BLOOD UREA NITROGEN 13 mg/dL (7-20); CALCIUM 8.6 mg/dL (8.4-10.2); GLUCOSE 94 mg/dL (75-110); PHOSPHORUS 3.9 mg/dL (2.5-4.5); POTASSIUM 3.8 mmol/L (3.6-5.0)
[2018-11-01 05:41] LABS: CARBON DIOXIDE 26 mmol/L (22-30); CHLORIDE 108 mmol/L (98-107)
[2018-11-01] MEDS: INSULIN LISPRO 100 UNIT/ML 3 ML VIAL SUBCUT SCH ×3 (07:53→16:47)
[2018-11-01] MEDS: INSULIN REG, HUMAN 100 UNIT/ML 3 ML VIAL (PYX) SUBCUT SCH ×4 (07:54→23:21)
[2018-11-01] MEDS: OXYCODONE HCL IR 5 MG TABLET PO PRN (07:59)
[2018-11-01] MEDS: RINGERS SOLUTION,LACTATED 1,000 ML IV PRN ×2 (07:59→17:06)
[2018-11-01] MEDS: LIPASE/PROTEASE/AMYLASE 1 CAP CAPSULE.DR PO SCH ×2 (07:59→17:06)
[2018-11-01] MEDS: ONDANSETRON HCL INJ/PF 4 MG/2 ML SDV IV PRN ×2 (08:02→23:23)
[2018-11-01] MEDS: HYDROMORPHONE HCL INJ/PF 2 MG/ML AMPULE IV PRN ×2 (08:36→13:01)
[2018-11-01] MEDS ORDERED: DEXTROSE 50%-WATER SYRINGE 12.5 GM/25 ML DOSE IV PRN (09:30)
[2018-11-01] MEDS ORDERED: DEXTROSE 50%-WATER SYRINGE 25 GM/50 ML DOSE IV PRN (09:30)
[2018-11-01] MEDS ORDERED: GLUCAGON,HUMAN RECOMB 1 MG INJ IM PRN (09:30)
[2018-11-01] MEDS ORDERED: DEXTROSE 40% GEL 15 GM TUBE PO PRN (09:30)
[2018-11-01] MEDS ORDERED: DEXTROSE 40% GEL 15 GM TUBE X 2 PO PRN (09:30)
[2018-11-01] MEDS: METOPROLOL TARTRATE 50 MG TABLET PO SCH ×2 (09:50→23:20)
[2018-11-01] MEDS: ENOXAPARIN SODIUM INJ 30 MG/0.3 ML DISP.SYRIN SUBCUT SCH (09:50)
[2018-11-01] MEDS: AMLODIPINE BESYLATE 10 MG TABLET PO SCH (09:50)
[2018-11-01] MEDS: LISINOPRIL 10 MG TABLET PO SCH (09:50)
--- NOTE | 2018-11-01 16:12 | PDOC PROGRESS REPORT ---
Subjective Progress Note for:: 11/01/18 Subjective:: This is a 38-year-old female with past medical history of insulin-dependent diabetes mellitus, recurrent DKA's and chronic pancreatitis who was admitted to the ICU for severe DKA. She was initially started on IV fluids and insulin drip. Her DKA did resolve. 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 No acute event overnight. Upon encounter, she reports mild abdominal pain which appears to have been improving in the past few days. Denies chest pain or shor tness of breath. Reason For Visit: DKA, ACUTE ON CHRONIC PANCREATITIS Physical Exam Vital Signs: Temp Pulse Resp BP Pulse Ox 98.3 F 92 16 151/91 H 95 11/01/18 07:44 11/01/18 07:44 11/01/18 07:44 11/01/18 07:44 11/01/18 07:44 Intake & Output 10/31/18 11/01/18 11/02/18 06:59 06:59 06:59 Intake Total 6056 2622 Output Total 3475 1400 Balance 2581 1222 Weight 135 lb 2.294 oz 138 lb 14.259 oz General appearance: PRESENT: no acute distress, well-developed, well-nourished Head exam: PRESENT: atraumatic, normocephalic Eye exam: PRESENT: conjunctiva pink, EOMI, PERRLA. ABSENT: scleral icterus Ear exam: PRESENT: normal external ear exam Mouth exam: PRESENT: moist, tongue midline Neck exam: ABSENT: carotid bruit, JVD, lymphadenopathy, thyromegaly Respiratory exam: PRESENT: clear to auscultation teddy. ABSENT: rales, rhonchi, wheezes Cardiovascular exam: PRESENT: RRR. ABSENT: diastolic murmur, rubs, systolic murmur Pulses: PRESENT: normal dorsalis pedis pul GI/Abdominal exam: PRESENT: normal bowel sounds, soft, tenderness - Mild direct epigastric tenderness, negative rebound. ABSENT: distended, guarding, mass, organolmegaly, rebound Rectal exam: PRESENT: deferred Extremities exam: PRESENT: full ROM. ABSENT: calf tenderness, clubbing, pedal edema Neurological exam: PRESENT: alert, awake, oriented to person, oriented to place, oriented to time, oriented to situation, CN II-XII grossly intact. ABSENT: motor sensory deficit Results Laboratory Results: 10/31/18 03:00 11/01/18 03:42 11/01/18 03:42 Sodium 138.6 Potassium 3.8 Chloride 108 H Carbon Dioxide 26 Anion Gap 5 BUN 13 Creatinine 1.32 H Est GFR ( Amer) 54 L Glucose 94 Calcium 8.6 Phosphorus 3.9 Lipase 961.3 H 10/29/18 10/29/18 10/29/18 13:28 13:28 18:20 Creatine Kinase 144 H Troponin I < 0.012 < 0.012 10/29/18 10/30/18 22:20 04:03 Creatine Kinase Troponin I < 0.012 < 0.012 Impressions: Abdomen Ultrasound 10/29/18 00:00 IMPRESSION: Sludge in the gallbladder without discrete calculi. No gallbladder wall thickening. No pericholecystic fluid. No biliary ductal dilation. Negati ve sonographic Burr's sign Abdomen/Pelvis CT 10/30/18 00:00 IMPRESSION: 1. STABLE COARSE PANCREATIC CALCIFICATIONS SECONDARY TO CHRONIC PANCREATITIS. NO MASS OR ABNORMAL FLUID COLLECTION. 2. NO OTHER SIGNIFICANT OR ACUTE PROCESS IN THE ABDOMEN OR PELVIS. Chest X-Ray 10/30/18 00:00 IMPRESSION: No evidence of acute intrathoracic disease. The tip of the right IJ central venous catheter projects over the region of the cavoatrial junction. Assessment and Plan - Diagnosis (1) DKA, type 2 Is this a current diagnosis for this admission?: Yes Plan: Resolved. Continue Lantus and sliding scale. (2) Acute on chronic pancreatitis Is this a current diagnosis for this admission?: Yes Plan: Improving. Continue Pancrease. She was placed on IV Dilaudid at oxycodone. Decrease Dilaudid to every 6. We will add Neurontin p.o. (3) Acute kidney injury Is this a current diagnosis for this admission?: Yes Plan: Resolved with IV fluids. - Time Time Spent with patient: 25-34 minutes
[2018-11-01] MEDS: GABAPENTIN 300 MG CAPSULE PO SCH (17:06)
[2018-11-01] MEDS: HYDROMORPHONE HCL INJ/PF 2 MG/ML AMPULE IV SCH ×2 (17:06→23:14)
[2018-11-01] MEDS: INSULIN GLARGINE,HUM.REC.ANLOG 1,000 UNIT/10 ML VIAL SUBCUT SCH (23:19)
[2018-11-02] MEDS: HYDROMORPHONE HCL INJ/PF 2 MG/ML AMPULE IV SCH (05:45)
[2018-11-02] MEDS: GABAPENTIN 300 MG CAPSULE PO SCH (05:45)
[2018-11-02] MEDS: RINGERS SOLUTION,LACTATED 1,000 ML IV PRN (05:48)
[2018-11-02] MEDS: INSULIN LISPRO 100 UNIT/ML 3 ML VIAL SUBCUT SCH (08:56)
[2018-11-02] MEDS: INSULIN REG, HUMAN 100 UNIT/ML 3 ML VIAL (PYX) SUBCUT SCH (08:56)
[2018-11-02] MEDS: AMLODIPINE BESYLATE 10 MG TABLET PO SCH (09:22)
[2018-11-02] MEDS: METOPROLOL TARTRATE 50 MG TABLET PO SCH (09:22)
[2018-11-02] MEDS: LISINOPRIL 10 MG TABLET PO SCH (09:22)
[2018-11-02] MEDS: LIPASE/PROTEASE/AMYLASE 1 CAP CAPSULE.DR PO SCH (09:23)
[2018-11-02] MEDS: ENOXAPARIN SODIUM INJ 30 MG/0.3 ML DISP.SYRIN SUBCUT SCH (09:23)
[2018-11-02 13:06] VITALS: BP 148/84
--- NOTE | 2018-11-04 16:02 | PDOC DISCHARGE SUMMARY ---
Impression - Admit/DC Date/PCP Admission Date/Primary Care Provider: 10/29/18 16:07 Discharge Date: 11/02/18 - Discharge Diagnosis (1) DKA, type 2 Is this a current diagnosis for this admission?: Yes (2) Acute on chronic pancreatitis Is this a current diagnosis for this admission?: Yes (3) Acute kidney injury Is this a current diagnosis for this admission?: Yes - Additional Information Resuscitation Status: Full Code Discharge Diet: As Tolerated Referrals: RONALD BARKER FNP-C [NO LOCAL MD] - 11/13/18 10:15 am Prescriptions: Gabapentin [Neurontin 300 mg Capsule] 300 mg PO Q12HP PRN #30 capsule PRN Reason: Lipase/Protease/Amylase [Pancreaze-10 Capsule.] 1 cap PO BIDACBS #60 capsule. Home Medications: Amlodipine Besylate [Norvasc 10 mg Tablet] 10 mg PO DAILY 10/09/18 Insulin Aspart [Novolog Insulin (Aspart) 100 unit/mL] 10 units SQ MEALS 10/09/18 Insulin Glargine,Hum.rec.anlog [Lantus Insulin 100 Unit/1 ml 10 ml] 30 unit SQ QHS 10/09/18 Lisinopril [Prinivil 10 mg Tablet] 10 mg PO DAILY 10/09/18 Metoprolol Tartrate [Lopressor 50 mg Tablet] 50 mg PO Q12 10/09/18 Gabapentin [Neurontin 300 mg Capsule] 300 mg PO Q12HP PRN #30 capsule 11/02/18 Lipase/Protease/Amylase [Pancreaze-10 Mary.] 1 cap PO BIDACBS #60 capsule. 11/02/18 History of Present Illiness History of Present Illness: Admitting hospitalist's H&P: Pt is a 38yo woman with chronic pancreatitis, Type I/II DM, HTN, who presented to the ED c/o a several day history of worsening abdominal. Today she developed nausea and vomiting. When she presented to the ED, she was found to be in DKA with a blood sugar of374 and a serum bicarbonate level of 14. She also was found to have acute pancreatitis. Mrs. Lr states that she has recurrent bout of pancreatitis and was told it was due to prior alcohol abuse. SHe has been unable to tolerate oral foods and has been unable to see a GI physician on an outpt basis. In the ED she was given IVF and started on an insulin drip. She continue to c/o severe abdominal pain. Hospital Course Hospital Course: This is a 38-year-old female with past medical history of insulin-dependent diabetes mellitus, recurrent DKA's and chronic pancreatitis who was admitted to the ICU for severe DKA. She was initially started on IV fluids and insulin drip. She was initially kept n.p.o. Her DKA did resolve. She was also treated for acute on chronic pancreatitis. She was subsequently transitioned to long-acting insulin and her diet was gradually advanced. Her abdominal pain did improve down to her baseline. Her RONIT also resolved with IV fluids. She was also evaluated by GI and was seen by Dr. Lehman. Pancreaze was added to her home regimen. She reports she has been compliant with her insulin but that her sugars at home has been fluctuating. She was previously strongly recommended to see an track manager to consider possible initiation of an insulin pump for better control of her diabetes. She says she has requested this from her PCP but has not been referred yet to her track manager. Physical Exam Vital Signs: Temp Pulse Resp BP Pulse Ox 98.0 F 89 16 148/84 H 97 11/02/18 13:03 11/02/18 13:03 11/02/18 13:03 11/02/18 13:03 11/02/18 13:03 General appearance: PRESENT: no acute distress, well-developed, well-nourished Head exam: PRESENT: atraumatic, normocephalic Eye exam: PRESENT: conjunctiva pink, EOMI, PERRLA. ABSENT: scleral icterus Ear exam: PRESENT: normal external ear exam Mouth exam: PRESENT: moist, tongue midline Neck exam: ABSENT: carotid bruit, JVD, lymphadenopathy, thyromegaly Respiratory exam: PRESENT: clear to auscultation teddy. ABSENT: rales, rhonchi, wheezes Cardiovascular exam: PRESENT: RRR. ABSENT: diastolic murmur, rubs, systolic murmur Pulses: PRESENT: normal dorsalis pedis pul GI/Abdominal exam: PRESENT: normal bowel sounds, soft. ABSENT: distended, guarding, mass, organolmegaly, rebound, tenderness Rectal exam: PRESENT: deferred Extremities exam: PRESENT: full ROM. ABSENT: calf tenderness, clubbing, pedal edema Neurological exam: PRESENT: alert, awake, oriented to person, oriented to place, oriented to time, oriented to situation, CN II-XII grossly intact. ABSENT: motor sensory deficit Results Laboratory Results: WBC 10.3 10^3/uL (4.0-10.5) 10/31/18 03:00 RBC 2.94 10^6/uL (3.72-5.28) L 10/31/18 03:00 Hgb 8.6 g/dL (12.0-15.5) L 10/31/18 03:00 Hct 25.5 % (36.0-47.0) L 10/31/18 03:00 MCV 87 fl (80-97) 10/31/18 03:00 MCH 29.2 pg (27.0-33.4) 10/31/18 03:00 MCHC 33.7 g/dL (32.0-36.0) 10/31/18 03:00 RDW 15.8 % (11.5-14.0) H 10/31/18 03:00 Plt Count 242 10^3/uL (150-450) 10/31/18 03:00 Lymph % (Auto) 34.0 % (13-45) 10/31/18 03:00 Foster % (Auto) 7.7 % (3-13) 10/31/18 03:00 Eos % (Auto) 1.7 % (0-6) 10/31/18 03:00 Baso % (Auto) 0.6 % (0-2) 10/31/18 03:00 Absolute Neuts (auto) 5.8 10^3/uL (1.7-8.2) 10/31/18 03:00 Absolute Lymphs (auto) 3.5 10^3/uL (0.5-4.7) 10/31/18 03:00 Absolute Monos (auto) 0.8 10^3/uL (0.1-1.4) 10/31/18 03:00 Absolute Eos (auto) 0.2 10^3/uL (0.0-0.6) 10/31/18 03:00 Absolute Basos (auto) 0.1 10^3/uL (0.0-0.2) 10/31/18 03:00 Seg Neutrophils % 56.0 % (42-78) 10/31/18 03:00 VBG pH 7.10 (7.30-7.42) L* 10/29/18 15:30 VBG pCO2 39.1 mmHg (35-63) 10/29/18 15:30 VBG HCO3 11.9 mmol/L (20-32) L 10/29/18 15:30 VBG Base Excess -16.8 mmol/L 10/29/18 15:30 Sodium 138.6 mmol/L (137-145) 11/01/18 03:42 Potassium 3.8 mmol/L (3.6-5.0) 11/01/18 03:42 Chloride 108 mmol/L (98-107) H 11/01/18 03:42 Carbon Dioxide 26 mmol/L (22-30) 11/01/18 03:42 Anion Gap 5 (5-19) 11/01/18 03:42 BUN 13 mg/dL (7-20) 11/01/18 03:42 Creatinine 1.32 mg/dL (0.52-1.25) H 11/01/18 03:42 Est GFR ( Amer) 54 (>60) L 11/01/18 03:42 Est GFR (MDRD) Non-Af 45 (>60) L 11/01/18 03:42 Glucose 94 mg/dL (75-110) 11/01/18 03:42 POC Glucose 113 mg/dL (70-110) H 11/02/18 12:13 Calcium 8.6 mg/dL (8.4-10.2) 11/01/18 03:42 Phosphorus 3.9 mg/dL (2.5-4.5) 11/01/18 03:42 Magnesium 1.7 mg/dL (1.6-2.3) 10/30/18 06:35 Total Bilirubin 0.6 mg/dL (0.2-1.3) 10/29/18 13:28 Direct Bilirubin 0.3 mg/dL (0.0-0.4) 10/29/18 13:28 Neonat Total Bilirubin Not Reportable 10/29/18 13:28 Neonat Direct Bilirubin Not Reportable 10/29/18 13:28 Neonat Indirect Bili Not Reportable 10/29/18 13:28 AST 32 U/L (14-36) 10/29/18 13:28 ALT 21 U/L (<35) 10/29/18 13:28 Alkaline Phosphatase 178 U/L (38-126) H 10/29/18 13:28 Creatine Kinase 144 U/L (30-135) H 10/29/18 13:28 Troponin I < 0.012 ng/mL 10/30/18 04:03 Total Protein 7.2 g/dL (6.3-8.2) 10/29/18 13:28 Albumin 4.2 g/dL (3.5-5.0) 10/29/18 13:28 Triglycerides 118 mg/dL (<150) 10/30/18 06:35 Cholesterol 206.88 mg/dL (0-200) H 10/30/18 06:35 LDL Cholesterol Direct 99 mg/dL (<100) 10/30/18 06:35 VLDL Cholesterol 24.0 mg/dL (10-31) 10/30/18 06:35 HDL Cholesterol 101 mg/dL (>40) 10/30/18 06:35 Amylase 170 U/L (30-110) H 10/31/18 03:00 Lipase 727.5 U/L (23-300) H 11/02/18 05:55 Serum HCG, Qual NEGATIVE (NEGATIVE) 10/29/18 13:28 Urine Color STRAW 10/29/18 15:45 Urine Appearance CLEAR 10/29/18 15:45 Urine pH 5.0 (5.0-9.0) 10/29/18 15:45 Ur Specific [place] 1.014 10/29/18 15:45 Urine Protein 100 mg/dL (NEGATIVE) H 10/29/18 15:45 Urine Glucose (UA) >=500 mg/dL (NEGATIVE) H 10/29/18 15:45 Urine Ketones 80 mg/dL (NEGATIVE) H 10/29/18 15:45 Urine Blood SMALL (NEGATIVE) H 10/29/18 15:45 Urine Nitrite NEGATIVE (NEGATIVE) 10/29/18 15:45 Urine Bilirubin NEGATIVE (NEGATIVE) 10/29/18 15:45 Urine Urobilinogen NEGATIVE mg/dL (<2.0) 10/29/18 15:45 Ur Leukocyte Esterase NEGATIVE (NEGATIVE) 10/29/18 15:45 Urine WBC (Auto) 2 /HPF 10/29/18 15:45 Urine RBC (Auto) 1 /HPF 10/29/18 15:45 Urine Bacteria (Auto) TRACE /HPF 10/29/18 15:45 Squamous Epi Cells Auto <1 /HPF 10/29/18 15:45 Amorphous Sediment Auto TRACE /HPF 10/29/18 15:45 Urine Mucus (Auto) RARE /LPF 10/29/18 15:45 Urine Ascorbic Acid NEGATIVE (NEGATIVE) 10/29/18 15:45 Urine Opiates Screen NEGATIVE 10/29/18 15:45 Urine Methadone Screen NEGATIVE 10/29/18 15:45 Ur Barbiturates Screen NEGATIVE 10/29/18 15:45 Ur Phencyclidine Scrn NEGATIVE 10/29/18 15:45 Ur Amphetamines Screen NEGATIVE 10/29/18 15:45 U Benzodiazepines Scrn NEGATIVE 10/29/18 15:45 Urine Cocaine Screen NEGATIVE 10/29/18 15:45 U Marijuana (THC) Screen UNCONFIRMED POSITIVE 10/29/18 15:45 Serum Alcohol < 10 mg/dL (NONE DETECTED) 10/29/18 15:35 10/29/18 10/29/18 10/29/18 13:28 18:20 22:20 Troponin I < 0.012 < 0.012 < 0.012 10/30/18 04:03 Troponin I < 0.012 Impressions: Abdomen Ultrasound 10/29/18 00:00 IMPRESSION: Sludge in the gallbladder without discrete calculi. No gallbladder wall thickening. No pericholecystic fluid. No biliary ductal dilation. Negative sonographic Burr's sign Abdomen/Pelvis CT 10/30/18 00:00 IMPRESSION: 1. STABLE COARSE PANCREATIC CALCIFICATIONS SECONDARY TO CHRONIC PANCREATITIS. NO MASS OR ABNORMAL FLUID COLLECTION. 2. NO OTHER SIGNIFICANT OR ACUTE PROCESS IN THE ABDOMEN OR PELVIS. Chest X-Ray 10/30/18 00:00 IMPRESSION: No evidence of acute intrathoracic disease. The tip of the right IJ central venous catheter projects over the region of the cavoatrial junction. Stroke Is this a Stroke Patient?: No Acute Heart Failure - Is this a Heart Failure Patient?: No LVEF < 40%?: No- if no continue to question #3
== END 2018-11-02 13:55 | disposition home or self-care (01) | DRG 438 ==
LOC: ER 13:11 → EH 16:07 → ICU 17:29 → 3N 10-31 20:27
PROVIDERS: ADMIT Internal Medicine; ATTEND Internal Medicine
PROC: 02H633Z Insertion of Infusion Device into Right Atrium, Percutaneous Approach (ICD-10-PCS; principal; 2018-10-30)
DX: K85.90 Acute pancreatitis without necrosis or infection, unspecified (principal); E11.10 Type 2 diabetes mellitus with ketoacidosis without coma; K86.1 Other chronic pancreatitis; R41.82 Altered mental status, unspecified; E11.22 Type 2 diabetes mellitus with diabetic chronic kidney disease; E78.00 Pure hypercholesterolemia, unspecified; J44.9 Chronic obstructive pulmonary disease, unspecified; N18.9 Chronic kidney disease, unspecified; I12.9 Hypertensive chronic kidney disease with stage 1 through stage 4 chronic kidney disease, or unspecified chronic kidney disease; Z79.4 Long term (current) use of insulin; Z79.899 Other long term (current) drug therapy
CPT/HCPCS: 36415; 51701; 71045; 74176; 76705; 80048; 80053; 80061; 80307; 81001; 82150; 82550; 82803; 82962; 83690; 83735; 84100; 84484; 84703; 85025; 85027; 87040; 93005; 93010; 96361; 96374; 96375; 99291; C1751; J0360; J0692; J1170; J1610; J1650; J1815; J2405; J2550; J2765; J3370; J3490; J7030; J7042; J7050; J7060; J7120

== ENCOUNTER 2018-11-16 21:55 | Inpatient (IN) | payer MEDICAID ==
[2018-11-16] MEDS ORDERED: ONDANSETRON HCL INJ/PF 4 MG/2 ML SDV IV ONE (22:29)
[2018-11-16] MEDS ORDERED: KETOROLAC TROMETHAMINE INJ/PF 30 MG/1 ML SDV IV ONE (22:29)
--- NOTE | 2018-11-16 22:29 | ER Document Report ---
ED Medical Screen (RME) - General Stated Complaint: ABDOMINAL PAIN Time Seen by Provider: 11/16/18 22:21 Mode of Arrival: Wheelchair Information source: Patient Notes: 38-year-old female with history of diabetes and pancreatitis presents emergency department with complaints of severe abdominal pain that just started earlier today. Reports nausea no fever diarrhea. Patient is very tearful. She reports she took Motrin without relief of symptoms. I have greeted and performed a rapid initial assessment of this patient. A comprehensive ED assessment and evaluation of the patient, analysis of test results and completion of the medical decision making process will be conducted by additional ED providers. Dictation of this chart was performed using voice recognition software; therefore, there may be some unintended grammatical errors. TRAVEL OUTSIDE OF THE [place] IN LAST 30 DAYS: No - Related Data Allergies/Adverse Reactions: hydrocodone [From [facility]] Allergy (Verified 10/29/18 13:23) morphine Allergy (Verified 10/29/18 13:23) Past Medical History - Past Medical History Cardiac Medical History: Reports: Hx Hypercholesterolemia, Hx Hypertension Denies: Hx Congestive Heart Failure, Hx Heart Attack Pulmonary Medical History: Reports: Hx COPD Denies: Hx Asthma Neurological Medical History: Reports: Hx Seizures. Denies: Hx Migraine Endocrine Medical History: Reports: Hx Diabetes Mellitus Type 1, Hx Diabetes Mellitus Type 2. Denies: Hx Hyperthyroidism, Hx Hypothyroidism Renal/ Medical History: Reports: Hx Renal Insufficiency. Denies: Hx End Stage Renal Disease, Hx Peritoneal Dialysis GI Medical History: Reports: Hx Pancreatitis. Denies: Hx Gastroesophageal Reflux Disease, Hx Hepatitis, Hx Hiatal Hernia Musculoskeltal Medical History: Denies Hx Arthritis Skin Medical History: Psychiatric Medical History: Denies: Hx Dementia, Hx Depression Infectious Medical History: Denies: Hx Hepatitis Past Surgical History: Reports: Hx Section - x3, Hx Hysterectomy Physical Exam - Vital signs Vitals: Temp Pulse Resp BP Pulse Ox 98.6 F 104 H 20 158/107 H 97 11/16/18 22:19 11/16/18 22:19 11/16/18 22:19 11/16/18 22:19 11/16/18 22:19 Course - Vital Signs Vital signs: Temp Pulse Resp BP Pulse Ox 98.6 F 104 H 20 158/107 H 97 11/16/18 22:19 11/16/18 22:19 11/16/18 22:19 11/16/18 22:19 11/16/18 22:19
[2018-11-16] MEDS ORDERED: KETOROLAC TROMETHAMINE 60 MG/2 ML SDV IM ONE (22:58)
[2018-11-16] MEDS ORDERED: ONDANSETRON 4 MG TAB.RAPDIS PO ONE (22:58)
[2018-11-17 00:21] LABS: ABSOLUTE EOSINOPHILS # (AUTO) 0.1 10^3/uL (0.0-0.6); ABSOLUTE LYMPHOCYTES (AUTO) 1.4 10^3/uL (0.5-4.7); ABSOLUTE MONOCYTES (AUTO) 0.4 10^3/uL (0.1-1.4); ABSOLUTE NEUT (AUTO) 8.9 10^3/uL (1.7-8.2); BASOPHILS % (AUTO) 0.3 % (0-2); EOSINOPHILS % (AUTO) 0.7 % (0-6); HEMATOCRIT 36.4 % (36.0-47.0); HEMOGLOBIN 11.8 g/dL (12.0-15.5); MEAN CORPUSCULAR HEMOGLOBIN 28.5 pg (27.0-33.4); MEAN CORPUSCULAR HGB CONC 32.4 g/dL (32.0-36.0); MEAN CORPUSCULAR VOLUME 88 fl (80-97); MONOCYTES % (AUTO) 3.8 % (3-13); PLATELET COUNT 484 10^3/uL (150-450); RED BLOOD COUNT 4.14 10^6/uL (3.72-5.28); RED CELL DISTRIBUTION WIDTH 16.9 % (11.5-14.0); SEGMENTED NEUTROPHILS % (AUTO) 82.2 % (42-78); TOTAL CELLS COUNTED % (AUTO) 100 %; WHITE BLOOD COUNT 10.8 10^3/uL (4.0-10.5)
[2018-11-17] MEDS ORDERED: PROMETHAZINE HCL INJ 25 MG/1 ML VIAL IM ONE (00:46)
--- NOTE | 2018-11-17 00:49 | ER Document Report ---
ED GI/ - General Chief Complaint: Abdominal Pain Stated Complaint: ABDOMINAL PAIN Time Seen by Provider: 11/16/18 22:21 Mode of Arrival: Wheelchair Notes: Patient is a 38-year-old female with a history of poorly controlled diabetes, chronic pancreatitis, hypertension, that comes emergency department for chief complaint of sharp upper abdominal pain and 2 episodes of vomiting that started tonight. She comes by EMS, she appeared to become lethargic so she was given oral glucose by EMS. Her Accu-Chek was 67 at that time. She denies abnormal bowel movements, fever. Patient states she has had a partial hysterectomy and C-sections, denies abdominal surgeries otherwise, states she used to abuse alcohol but states she has not had a drink of alcohol in 8 years. She denies lower abdominal pain, vaginal bleeding or discharge, dysuria. TRAVEL OUTSIDE OF THE [place] IN LAST 30 DAYS: No - Related Data Allergies/Adverse Reactions: hydrocodone [From [facility]] Allergy (Verified 10/29/18 13:23) morphine Allergy (Verified 10/29/18 13:23) Past Medical History - General Information source: Patient - Social History Smoking Status: Current Every Day Smoker Chew tobacco use (# tins/day): No Frequency of alcohol use: None Drug Abuse: Marijuana Lives with: Alone Family History: Reviewed & Not Pertinent, DM, Hypertension Patient has suicidal ideation: No Patient has homicidal ideation: No - Past Medical History Cardiac Medical History: Reports: Hx Hypercholesterolemia, Hx Hypertension Denies: Hx Congestive Heart Failure, Hx Heart Attack Pulmonary Medical History: Reports: Hx COPD Denies: Hx Asthma Neurological Medical History: Reports: Hx Seizures. Denies: Hx Migraine Endocrine Medical History: Reports: Hx Diabetes Mellitus Type 1, Hx Diabetes Mellitus Type 2. Denies: Hx Hyperthyroidism, Hx Hypothyroidism Renal/ Medical History: Reports: Hx Renal Insufficiency. Denies: Hx End Stage Renal Disease, Hx Peritoneal Dialysis GI Medical History: Reports: Hx Pancreatitis. Denies: Hx Gastroesophageal Reflux Disease, Hx Hepatitis, Hx Hiatal Hernia Musculoskeletal Medical History: Denies Hx Arthritis Skin Medical History: Psychiatric Medical History: Denies: Hx Dementia, Hx Depression Infectious Medical History: Denies: Hx Hepatitis Past Surgical History: Reports: Hx Section - x3, Hx Hysterectomy Review of Systems - Review of Systems Constitutional: No symptoms reported EENT: No symptoms reported Cardiovascular: No symptoms reported Respiratory: No symptoms reported Gastrointestinal: See HPI Genitourinary: No symptoms reported Female Genitourinary: No symptoms reported Musculoskeletal: No symptoms reported Skin: No symptoms reported Hematologic/Lymphatic: No symptoms reported Neurological/Psychological: No symptoms reported Physical Exam - Vital signs Vitals: Temp Pulse Resp BP Pulse Ox 98.6 F 104 H 20 158/107 H 97 11/16/18 22:19 11/16/18 22:19 11/16/18 22:19 11/16/18 22:19 11/16/18 22:19 - Notes Notes: GENERAL: Alert, restless, appears uncomfortable HEAD: Normocephalic, atraumatic. EYES: Pupils equal, round, and reactive to light. Extraocular movements intact. ENT: Oral mucosa moist, tongue midline. Oropharynx unremarkable. Airway patent. NECK: Full range of motion. Supple. Trachea midline. LUNGS: Clear to auscultation bilaterally, no wheezes, rales, or rhonchi. No respiratory distress. HEART: Tachycardia, normal rhythm, no murmur ABDOMEN: Very tender in the epigastric area, remaining abdomen is only diffusely mildly tender. Bowel sounds present. GENITOURINARY: Deferred EXTREMITIES: Moves all 4 extremities spontaneously. No edema, normal radial and dorsalis pedis pulses bilaterally. No cyanosis. BACK: no cervical, thoracic, lumbar midline tenderness. No saddle anesthesia, normal distal neurovascular exam. Moves all extremities in full range of motion. NEUROLOGICAL: Alert and oriented x3. Normal speech. Cranial nerves II through XII grossly intact. PSYCH: Irritable and anxious SKIN: Slightly pale, many healing areas over the arms and neck with scabs. Course - Re-evaluation Re-evalutation: Patient has a lot of epigastric tenderness, lower abdomen seems benign. She is agitated. Given IM Phenergan pending IV fluids and pain medication. CBC shows leukocytosis at 10.8 with elevation of neutrophils. Venous blood gas was obtained and unremarkable. Chemistry nonspecific without DKA. Mild renal insufficiency present. Lipase shows acute on chronic pancreatitis at greater than 14,000 which is much greater than patient's norm. Patient is extremely difficult to get IV access on or even blood. Part of this is because of dehydration I suspect, I do not even see EJ's present. Nursing was able to get a right wrist IV but this was lost when CAT scan was performed. I was finally able to place a left arm 20-gauge using the ultrasound. CAT scan negative for acute findings, shows probable acute on chronic pancreatitis. Discussed with Dr. Frankel, hospitalist, patient admitted to telemetry full admission. Patient states agreement and appreciation. - Vital Signs Vital signs: Temp Pulse Resp BP Pulse Ox 97.9 F 92 16 185/105 H 100 11/17/18 06:26 11/17/18 06:26 11/17/18 06:26 11/17/18 06:26 11/17/18 06:26 - Laboratory Result Diagrams: 11/17/18 00:08 11/17/18 00:54 Laboratory results interpreted by me: 11/17/18 11/17/18 11/17/18 00:08 00:54 00:54 WBC 10.8 H Hgb 11.8 L RDW 16.9 H Plt Count 484 H Absolute Neuts (auto) 8.9 H Seg Neutrophils % 82.2 H Chloride 110 H BUN 27 H Creatinine 1.32 H Est GFR ( Amer) 54 L Est GFR (MDRD) Non-Af 45 L Glucose 182 H POC Glucose Iron 27.7 L AST 54 H Alkaline Phosphatase 175 H Lipase 15434.5 H Urine Protein Urine Glucose (UA) Urine Blood 11/17/18 11/17/18 01:20 02:20 WBC Hgb RDW Plt Count Absolute Neuts (auto) Seg Neutrophils % Chloride BUN Creatinine Est GFR ( Amer) Est GFR (MDRD) Non-Af Glucose POC Glucose 192 H Iron AST Alkaline Phosphatase Lipase Urine Protein 100 H Urine Glucose (UA) >=500 H Urine Blood SMALL H Discharge - Discharge Clinical Impression: Vomiting Qualifiers: Vomiting type: unspecified Vomiting Intractability: non-intractable Nausea presence: with nausea Qualified Code(s): R11.2 - Nausea with vomiting, unspecified Acute pancreatitis Qualifiers: Pancreatitis type: unspecified pancreatitis type Acute pancreatitis complication: unspecified Qualified Code(s): K85.90 - Acute pancreatitis without necrosis or infection, unspecified Abdominal pain Qualifiers: Abdominal location: generalized Qualified Code(s): R10.84 - Generalized abdominal pain Condition: Stable Disposition: ADMITTED INPATIENT Admitting Provider: Jostin (Hospitalist) Unit Admitted: Telemetry
[2018-11-17 01:07] LABS: VENOUS BLOOD HCO3 23.8 mmol/L (20-32); VENOUS BLOOD PCO2 45.1 mmHg (35-63); VENOUS BLOOD PH 7.34 (7.30-7.42)
[2018-11-17 01:25] LABS: ALBUMIN 4.2 g/dL (3.5-5.0); ALKALINE PHOSPHATASE 175 U/L (38-126); ANION GAP 9 (5-19); ASPARTATE AMINO TRANSFERASE 54 U/L (14-36); BILIRUBIN,DIRECT 0.1 mg/dL (0.0-0.4); BILIRUBIN,TOTAL 0.3 mg/dL (0.2-1.3); BLOOD UREA NITROGEN 27 mg/dL (7-20); CALCIUM 9.8 mg/dL (8.4-10.2); CARBON DIOXIDE 24 mmol/L (22-30); CHLORIDE 110 mmol/L (98-107); GLUCOSE 182 mg/dL (75-110); POTASSIUM 3.9 mmol/L (3.6-5.0); TOTAL PROTEIN 7.7 g/dL (6.3-8.2)
[2018-11-17 01:26] LABS: ALCOHOL < 10 mg/dL (NONE DETECTED)
[2018-11-17] MEDS ORDERED: HYDROMORPHONE HCL INJ/PF 2 MG/ML AMPULE IV ONE (02:22)
[2018-11-17] MEDS ORDERED: HYDROMORPHONE HCL INJ/PF 2 MG/ML AMPULE IM ONE (02:23)
[2018-11-17] MEDS ORDERED: NORMAL SALINE 1000 ML 1,000 ML IV ONE ×2 (02:23→12:52)
[2018-11-17 02:33] LABS: APPEARANCE,URINE SLIGHTLY-CLOUDY; BILIRUBIN,URINE NEGATIVE (NEGATIVE); COLOR,URINE STRAW; GLUCOSE, URINE >=500 mg/dL (NEGATIVE); KETONES,URINE NEGATIVE (NEGATIVE); LEUKOCYTE ESTERASE,URINE NEGATIVE (NEGATIVE); NITRITE,URINE NEGATIVE (NEGATIVE); PROTEIN,URINE 100 mg/dL (NEGATIVE); UROBILINOGEN,URINE NEGATIVE mg/dL (<2.0)
--- NOTE | 2018-11-17 04:26 | RADIOLOGY REPORT (SQ) ---
CLINICAL HISTORY: vomiting, elevating lipase, abd pain. CREAT 1.32 COMPARISON: None. TECHNIQUE: CT ABDOMEN PELVIS WITH IV CONTRAST on 11/17/2018 2:26 AM CDT This exam was performed according to our departmental dose-optimization program, which includes automated exposure control, adjustment of the mA and/or kV according to patient size and/or use of iterative reconstruction technique. FINDINGS: Lower lungs are clear. Abdomen: The liver is normal in appearance. There is no biliary dilatation. Gallbladder is normal in appearance. Spleen is normal in size. Pancreas is diffusely calcified and atrophic with ductal dilatation measuring up to 7 mm. The adrenal glands and kidneys are unremarkable. Abdominal aorta is normal in course and caliber without aneurysm. There is no free air. There is no retroperitoneal adenopathy. Pelvis: There is no bowel obstruction. Urinary bladder is unremarkable. There is no free fluid. Hysterectomy was performed. Appendix is not well seen. Skeleton: There are no acute osseous findings. No suspicious bony lesions. IMPRESSION: Chronic calcific pancreatitis. Difficult to exclude acute component.
[2018-11-17] MEDS ORDERED: PROMETHAZINE HCL 25 MG SUPP.RECT PR PRN (04:43)
[2018-11-17] MEDS ORDERED: DEXTROSE 50%-WATER 25 GM/50 ML DISP.SYRIN IV PRN ×2 (04:43)
[2018-11-17] MEDS ORDERED: PROMETHAZINE HCL 25 MG TABLET PO PRN (04:43)
[2018-11-17] MEDS ORDERED: GLUCAGON,HUMAN RECOMB 1 MG INJ IM PRN (04:43)
[2018-11-17] MEDS ORDERED: ONDANSETRON 4 MG TAB.RAPDIS PO PRN (04:43)
[2018-11-17] MEDS ORDERED: DEXTROSE 40% GEL 15 GM TUBE PO PRN ×2 (04:43)
[2018-11-17] MEDS ORDERED: IPRATROPIUM/ALBUTEROL 0.5-2.5 MG/3 ML AMPUL NEB PRN (04:43)
[2018-11-17] MEDS ORDERED: MAG HYDROX/AL HYDROX/SIMETH SUSP 30 ML UDCUP PO PRN (04:43)
[2018-11-17] MEDS ORDERED: ACETAMINOPHEN 650 MG SUPP.RECT PR PRN (04:43)
[2018-11-17] MEDS ORDERED: NORMAL SALINE 1000 ML 1,000 ML IV PRN ×2 (04:45→12:52)
[2018-11-17] MEDS ORDERED: HYDROMORPHONE HCL INJ/PF 2 MG/ML AMPULE SUBCUT PRN (04:47)
[2018-11-17 05:32] LABS: URINE AMPHETAMINES SCREEN NEGATIVE; URINE BARBITURATES SCREEN NEGATIVE; URINE BENZODIAZEPINES SCREEN NEGATIVE; URINE COCAINE SCREEN NEGATIVE; URINE MARIJUANA (THC) SCREEN UNCONFIRMED POSITIVE; URINE METHADONE SCREEN NEGATIVE; URINE PHENCYCLIDINE SCREEN NEGATIVE
--- NOTE | 2018-11-17 06:04 | PDOC H&P ---
History of Present Illness Admission Date/PCP: 11/17/18 04:59 LYNNE OLMEDO Patient complains of: Epigastric pain, nausea and vomiting History of Present Illness: JJ HOFFMAN is a 38 year old female with a past medical history of insulin- dependent diabetes and recurrent DKA, recurrent acute and chronic pancreatitis on pancreatic enzyme replacement and remote alcohol dependence. She presents with 6 hours of sharp epigastric pain associated with nausea and vomiting of gastric content. Recognizing the symptoms from previous events. She is prompted to seek evaluation in the emergency room where she is found to have a CT notable for acute and chronic pancreatitis without necrosis and a lipase of 14,000. She receives an IV fluid challenge and symptomatic management then referred to the hospitalist for admission. She denies recent illness, alcohol or new medications. Past Medical History Cardiac Medical History: Reports: Hyperlipidema, Hypertension Denies: Congestive Heart Failure, Myocardial Infarction Pulmonary Medical History: Reports: Chronic Obstructive Pulmonary Disease (COPD) Denies: Asthma Neurological Medical History: Reports: Seizures Denies: Migraine Endocrine Medical History: Reports: Diabetes Mellitus Type 1, Diabetes Mellitus Type 2 Denies: Hyperthyroidism, Hypothyroidism Renal/ Medical History: Denies: End Stage Renal Disease GI Medical History: Denies: Gastroesophageal Reflux Disease, Hepatitis, Hiatal Hernia Musculoskeltal Medical History: Denies: Arthritis Skin Medical History: Psychiatric Medical History: Denies: Dementia, Depression Hematology: Reports: Anemia Denies: Bleeding Tendencies Past Surgical History Past Surgical History: Reports: Section - x3, Hysterectomy Social History Information Source: Patient Smoking Status: Current Every Day Smoker Electronic Cigarette use?: No Frequency of Alcohol Use: Occasional Hx Recreational Drug Use: Yes Drugs: Marijuana Hx Prescription Drug Abuse: No - Advance Directive Resuscitation Status: Full Code Family History Family History: DM, Hypertension Parental Family History Reviewed: Yes Children Family History Reviewed: Yes Sibling(s) Family History Reviewed.: Yes Medication/Allergy Home Medications: Amlodipine Besylate [Norvasc 10 mg Tablet] 10 mg PO DAILY 10/09/18 Insulin Aspart [Novolog Insulin (Aspart) 100 unit/mL] 10 units SQ MEALS 10/09/18 Insulin Glargine,Hum.rec.anlog [Lantus Insulin 100 Unit/1 ml 10 ml] 30 unit SQ QHS 10/09/18 Lisinopril [Prinivil 10 mg Tablet] 10 mg PO DAILY 10/09/18 Metoprolol Tartrate [Lopressor 50 mg Tablet] 50 mg PO Q12 10/09/18 Gabapentin [Neurontin 300 mg Capsule] 300 mg PO Q12HP PRN #30 capsule 11/02/18 Lipase/Protease/Amylase [Pancreaze-10 Capsule.] 1 cap PO BIDACBS #60 capsule. 11/02/18 Allergies/Adverse Reactions: hydrocodone [From [place]] Allergy (Verified 10/29/18 13:23) morphine Allergy (Verified 10/29/18 13:23) Review of Systems Constitutional: ABSENT: chills, fever(s), headache(s), weight gain, weight loss Eyes: ABSENT: visual disturbances Ears: ABSENT: hearing changes Cardiovascular: ABSENT: chest pain, dyspnea on exertion, edema, orthropnea, palpitations Respiratory: ABSENT: cough, hemoptysis Gastrointestinal: ABSENT: abdominal pain, constipation, diarrhea, hematemesis, hematochezia, nausea, vomiting Genitourinary: ABSENT: dysuria, hematuria Musculoskeletal: ABSENT: joint swelling Integumentary: ABSENT: rash, wounds Neurological: ABSENT: abnormal gait, abnormal speech, confusion, dizziness, focal weakness, syncope Psychiatric: ABSENT: anxiety, depression, homidical ideation, suicidal ideation Endocrine: ABSENT: cold intolerance, heat intolerance, polydipsia, polyuria Hematologic/Lymphatic: ABSENT: easy bleeding, easy bruising Physical Exam Vital Signs: Temp Pulse Resp BP Pulse Ox 98.6 F 104 H 11 L 151/90 H 100 11/16/18 22:19 11/16/18 22:19 11/17/18 05:01 11/17/18 05:01 11/17/18 05:01 Intake & Output 11/15/18 11/16/18 11/17/18 11:59 11:59 11:59 Weight 59.1 kg General appearance: PRESENT: cooperative, mild distress, well-developed, well- nourished Head exam: PRESENT: atraumatic, normocephalic Eye exam: PRESENT: conjunctiva pink, EOMI, PERRLA. ABSENT: scleral icterus Ear exam: PRESENT: normal external ear exam Mouth exam: PRESENT: moist, tongue midline Neck exam: ABSENT: carotid bruit, JVD, lymphadenopathy, thyromegaly Respiratory exam: PRESENT: clear to auscultation teddy. ABSENT: rales, rhonchi, wheezes Cardiovascular exam: PRESENT: RRR. ABSENT: diastolic murmur, rubs, systolic murmur Pulses: PRESENT: normal dorsalis pedis pul Vascular exam: PRESENT: normal capillary refill GI/Abdominal exam: PRESENT: distended, hyperactive bowel sounds, soft, tenderness. ABSENT: ascites, firm, guarding, hernia Rectal exam: PRESENT: deferred Extremities exam: PRESENT: full ROM. ABSENT: calf tenderness, clubbing, pedal edema Neurological exam: PRESENT: alert, awake, oriented to person, oriented to place, oriented to time, oriented to situation, CN II-XII grossly intact. ABSENT: motor sensory deficit Psychiatric exam: PRESENT: appropriate affect, normal mood. ABSENT: homicidal ideation, suicidal ideation Skin exam: PRESENT: dry, intact, warm. ABSENT: cyanosis, rash Results Laboratory Results: 11/17/18 00:08 11/17/18 00:54 11/17/18 11/17/18 11/17/18 00:08 00:08 00:54 WBC 10.8 H RBC 4.14 Hgb 11.8 L Hct 36.4 MCV 88 MCH 28.5 MCHC 32.4 RDW 16.9 H Plt Count 484 H Seg Neutrophils % 82.2 H VBG pH VBG pCO2 VBG HCO3 VBG Base Excess Sodium Cancelled 142.9 Potassium Cancelled 3.9 Chloride Cancelled 110 H Carbon Dioxide Cancelled 24 Anion Gap Cancelled 9 BUN Cancelled 27 H Creatinine Cancelled 1.32 H Est GFR ( Amer) Cancelled 54 L Est GFR (Non-Af Amer) Cancelled Glucose Cancelled 182 H Calcium Cancelled 9.8 Total Bilirubin Cancelled 0.3 AST Cancelled 54 H Alkaline Phosphatase Cancelled 175 H Total Protein Cancelled 7.7 Albumin Cancelled 4.2 Amylase Cancelled Lipase Cancelled 53089.5 H Urine Color Urine Appearance Urine pH Ur Specific [place] Urine Protein Urine Glucose (UA) Urine Ketones Urine Blood Urine Nitrite Ur Leukocyte Esterase Urine WBC (Auto) Urine RBC (Auto) 11/17/18 11/17/18 00:54 02:20 WBC RBC Hgb Hct MCV MCH MCHC RDW Plt Count Seg Neutrophils % VBG pH 7.34 VBG pCO2 45.1 VBG HCO3 23.8 VBG Base Excess -2.0 Sodium Potassium Chloride Carbon Dioxide Anion Gap BUN Creatinine Est GFR ( Amer) Est GFR (Non-Af Amer) Glucose Calcium Total Bilirubin AST Alkaline Phosphatase Total Protein Albumin Amylase Lipase Urine Color STRAW Urine Appearance SLIGHTLY-CLOUDY Urine pH 5.0 Ur Specific [place] 1.010 Urine Protein 100 H Urine Glucose (UA) >=500 H Urine Ketones NEGATIVE Urine Blood SMALL H Urine Nitrite NEGATIVE Ur Leukocyte Esterase NEGATIVE Urine WBC (Auto) 1 Urine RBC (Auto) 4 Impressions: Abdomen/Pelvis CT 11/17/18 02:26 IMPRESSION: Chronic calcific pancreatitis. Difficult to exclude acute component. Assessment and Plan - Diagnosis (1) Acute pancreatitis Qualifiers: Pancreatitis type: unspecified pancreatitis type Acute pancreatitis compli cation: unspecified Qualified Code(s): K85.90 - Acute pancreatitis without necrosis or infection, unspecified Is this a current diagnosis for this admission?: Yes Plan: Without elevated bilirubin, bowel rest, hydration, symptomatic management, follow-up chemistry. Trial p.o. clear liquid diet with no longer requesting narcotic analgesia. Advance diet as tolerated. (2) Abdominal pain Qualifiers: Abdominal location: generalized Qualified Code(s): R10.84 - Generalized abdominal pain Is this a current diagnosis for this admission?: Yes Plan: Secondary to #1, bowel rest and symptomatic management (3) RONIT (acute kidney injury) Is this a current diagnosis for this admission?: Yes Plan: Secondary to #1, IV fluid challenge, follow-up chemistry (4) Anemia Qualifiers: Anemia type: iron deficiency Is this a current diagnosis for this admission?: Yes Plan: Follow-up anemia labs - Time Time Spent with patient: 35 or more minutes - Inpatient Certification Medical Necessity: Need Close Monitoring Due to Risk of Patient Decompensation
[2018-11-17 06:30] LABS: IRON(TIBC) 27.7 ug/dL (37-170)
--- NOTE | 2018-11-17 06:45 | EKG REPORT ---
SEVERITY:- ABNORMAL ECG - SINUS RHYTHM LEFT ATRIAL ABNORMALITY PROBABLE LEFT VENTRICULAR HYPERTROPHY DIFFUSE NONSPECIFIC ST-T CHANGES : Confirmed by: Alvaro Lema MD 17-Nov-2018 06:44:01
[2018-11-17 06:57] LABS: ABSOLUTE RETICS # 0.059 10^6/uL (0.028-0.122); RETICULOCYTE COUNT (AUTO) 1.47 % (0.66-2.85)
[2018-11-17] MEDS: HEPARIN SOD (PORCINE) 5,000 UNIT/ML 1 ML VIAL SUBCUT SCH ×3 (07:15→21:19)
[2018-11-17 07:37] LABS: FOLATE 7.01 ng/mL (>2.76)
[2018-11-17] MEDS: HYDRALAZINE HCL INJ/PF 20 MG/1 ML SDV IV PRN (08:45)
[2018-11-17] MEDS ORDERED: LIDOCAINE 1% INJ-PF (10 MG/ML) 30 ML SDV ONE (10:26)
[2018-11-17] MEDS ORDERED: BACITRACIN INJ 50,000 UNIT VIAL ONE (10:27)
[2018-11-17] MEDS ORDERED: FENTANYL CITRATE INJ/PF 100 MCG/2 ML AMPUL ONE (10:27)
[2018-11-17] MEDS ORDERED: MIDAZOLAM 2 MG/2 ML INJ ONE (10:28)
[2018-11-17] MEDS: INSULIN LISPRO 100 UNIT/ML 3 ML VIAL SUBCUT SCH ×3 (11:19→17:30)
[2018-11-17] MEDS: INSULIN GLARGINE,HUM.REC.ANLOG 1,000 UNIT/10 ML VIAL SUBCUT SCH (11:19)
[2018-11-17] MEDS: AMLODIPINE BESYLATE 10 MG TABLET PO SCH (12:21)
[2018-11-17] MEDS: METOPROLOL TARTRATE 50 MG TABLET PO SCH ×2 (12:21→21:19)
[2018-11-17] MEDS: LISINOPRIL 10 MG TABLET PO SCH (12:21)
--- NOTE | 2018-11-17 12:27 | RADIOLOGY REPORT (SQ) ---
EXAM DESCRIPTION: TUNNELED CENTRAL LINE; GUIDANCE ULTRASOUND; GUIDANCE FLUOROSCOPIC COMPLETED DATE/TIME: 11/17/2018 11:40 am REASON FOR STUDY: NEED FOR VASCULAR ACCESS COMPARISON: 10/30/2018 FLUOROSCOPY TIME: 0.2 minutes 4 images saved to PACS. TECHNIQUE: Fluoroscopic and ultrasound guided PICC placement. LIMITATIONS: None. PROCEDURE: After written consent and assessment were obtained, the patient was brought into the fluo roscopy room and placed supine on the table. Ultrasound evaluation of potential access sites were per formed. Sedation was provided and physiologic monitoring was performed throughout the procedure. A total of 1 mg of Versed at and 50 mcg of fentanyl was utilized for sedation. Physiologic monitoring was provi ded for 45 minutes. Total procedure time 45 minutes. After successfully identifying a patent right internal jugular vein the right neck was prepped and dr azizaed in a sterile fashion along with the ultrasound probe. The entry site was anesthetized with 1% li docaine. A 21 gauge 7 cm needle was advanced through the skin and into the right IJ vein under live u ltrasound guidance. A .018 guide wire was then inserted through the needle and into the venous syste m. The needle was then removed and an 11 blade scalpel was used to make a 1cm skin incision. A 5 fr peel-away sheath was advanced over the wire and into the venous system. At this time sedation was ad ministered secondary to lack of peripheral IV access. A measurement was then made using the existing wire and live fluoroscopic guidance. Attention was focused on the subcutaneous tunnel. Additional local anesthesia was achieved with 1% lidocaine. The catheter was tunneled from the skin incision to mae the venotomy site. The wire was used to cut the catheter to the appropriate length. The inner dilator was removed in the catheter placed within the peel-away sheath. The catheter tip terminating at the cavoatrial junction. The peel-away sheath was removed. The catheter was secured to the skin with a StatLock device. Sterile dressing was applied at the venotomy site and catheter exit site al nimo the anterior right chest wall. A fluoroscopic spot image was saved to PACS confirming the petey ter tip within the cavoatrial junction. IMPRESSION: Successful placement of a single lumen tunneled/cuffed small bore right internal jugular central venous catheter as detailed above. COMMENT: Patient medication list reviewed: Yes- Quality ID# [id number]:Eligible professional attests to doc umenting in the medical record they obtained, updated, or reviewed the patient's current medications. . Quality ID 145: Final reports for procedures using fluoroscopy that document radiation exposure rand jen, or exposure time and number of fluorographic images (if radiation exposure indices are not avail able) Quality ID #76: The patient was prepped and draped using maximum sterile barrier technique including cap, mask, sterile gown, sterile gloves, a large sterile sheet, hand hygiene, and 2% Chlorhexidine fo r cutaneous antisepsis. When ultrasound is used, sterile ultrasound techniques are followed requiring sterile gel and sterile probes. TECHNICAL DOCUMENTATION: JOB ID: [id number] [employer] All Rights Reserved rev Reading location - IP/workstation name: [email or web address]
[2018-11-17] MEDS: HYDROMORPHONE HCL INJ/PF 2 MG/ML AMPULE IV PRN ×3 (13:20→21:18)
[2018-11-17] MEDS: POTASSI CL 20 MEQ/D5-1/2NS 1L 1000 ML IV PRN (21:19)
[2018-11-18] MEDS: HYDROMORPHONE HCL INJ/PF 2 MG/ML AMPULE IV PRN ×5 (01:13→21:16)
[2018-11-18] MEDS: INSULIN LISPRO 100 UNIT/ML 3 ML VIAL SUBCUT SCH ×5 (01:44→21:03)
[2018-11-18] MEDS: HEPARIN SOD (PORCINE) 5,000 UNIT/ML 1 ML VIAL SUBCUT SCH ×3 (05:13→21:16)
[2018-11-18 05:47] LABS: ALBUMIN 3.4 g/dL (3.5-5.0); ALKALINE PHOSPHATASE 138 U/L (38-126); ANION GAP 7 (5-19); ASPARTATE AMINO TRANSFERASE 34 U/L (14-36); BILIRUBIN,DIRECT 0.1 mg/dL (0.0-0.4); BILIRUBIN,TOTAL 0.3 mg/dL (0.2-1.3); BLOOD UREA NITROGEN 21 mg/dL (7-20); CARBON DIOXIDE 22 mmol/L (22-30); CHLORIDE 106 mmol/L (98-107); GLUCOSE 221 mg/dL (75-110); POTASSIUM 4.5 mmol/L (3.6-5.0); TOTAL PROTEIN 6.4 g/dL (6.3-8.2)
[2018-11-18] MEDS: POTASSI CL 20 MEQ/D5-1/2NS 1L 1000 ML IV PRN ×2 (05:52→11:48)
[2018-11-18 06:28] LABS: ABSOLUTE EOSINOPHILS # (AUTO) 0.1 10^3/uL (0.0-0.6); ABSOLUTE LYMPHOCYTES (AUTO) 3.2 10^3/uL (0.5-4.7); ABSOLUTE MONOCYTES (AUTO) 0.4 10^3/uL (0.1-1.4); ABSOLUTE NEUT (AUTO) 3.1 10^3/uL (1.7-8.2); BASOPHILS % (AUTO) 0.5 % (0-2); EOSINOPHILS % (AUTO) 1.7 % (0-6); HEMATOCRIT 24.3 % (36.0-47.0); MEAN CORPUSCULAR HEMOGLOBIN 29.2 pg (27.0-33.4); MEAN CORPUSCULAR HGB CONC 33.2 g/dL (32.0-36.0); MEAN CORPUSCULAR VOLUME 88 fl (80-97); MONOCYTES % (AUTO) 6.4 % (3-13); PLATELET COUNT 371 10^3/uL (150-450); RED BLOOD COUNT 2.76 10^6/uL (3.72-5.28); RED CELL DISTRIBUTION WIDTH 16.5 % (11.5-14.0); SEGMENTED NEUTROPHILS % (AUTO) 45.4 % (42-78); TOTAL CELLS COUNTED % (AUTO) 100 %; WHITE BLOOD COUNT 6.9 10^3/uL (4.0-10.5)
[2018-11-18] MEDS ORDERED: INFLUENZA QUAD (6MOS+) 2019-20 VAC 0.5 ML SYR IM ONE (08:00)
[2018-11-18] MEDS: INSULIN GLARGINE,HUM.REC.ANLOG 1,000 UNIT/10 ML VIAL SUBCUT SCH (09:30)
[2018-11-18] MEDS: AMLODIPINE BESYLATE 10 MG TABLET PO SCH (09:40)
[2018-11-18] MEDS: LISINOPRIL 10 MG TABLET PO SCH (09:40)
[2018-11-18] MEDS: METOPROLOL TARTRATE 50 MG TABLET PO SCH ×2 (09:40→21:17)
[2018-11-18] MEDS: OXYCODONE-ACETAMINOPHEN 5-325 MG TABLET PO PRN ×2 (15:07→20:33)
[2018-11-18] MEDS: LIPASE/PROTEASE/AMYLASE 1 CAP CAPSULE.DR PO SCH (15:23)
--- NOTE | 2018-11-18 15:34 | PDOC PROGRESS REPORT ---
Subjective Progress Note for:: 11/18/18 Subjective:: No acute event overnight. She has had worsening abdominal pain yesterday afternoon. This morning, she appears more comfortable and says she feels much better. She says that her abdominal pain this morning is close to her baseline and she wants to eat. She is currently n.p.o. Will advance to clear liquids today. Reason For Visit: ACUTE PANCREATITIS Physical Exam Vital Signs: Temp Pulse Resp BP Pulse Ox 98.0 F 80 15 151/86 H 99 11/18/18 11:49 11/18/18 14:00 11/18/18 11:49 11/18/18 11:49 11/18/18 11:49 Intake & Output 11/17/18 11/18/18 11/19/18 06:59 06:59 06:59 Intake Total 1000 1890 Balance 1000 1890 Weight 126 lb 1.671 oz 128 lb 15.527 oz 128 lb 15.527 oz Results Laboratory Results: 11/18/18 06:00 11/18/18 05:15 11/18/18 11/18/18 11/18/18 05:15 05:15 06:00 WBC Cancelled 6.9 RBC Cancelled 2.76 L Hgb Cancelled 8.0 L D Hct Cancelled 24.3 L MCV Cancelled 88 MCH Cancelled 29.2 MCHC Cancelled 33.2 RDW Cancelled 16.5 H Plt Count Cancelled 371 Seg Neutrophils % Cancelled 45.4 Sodium 135.1 L Potassium 4.5 Chloride 106 Carbon Dioxide 22 Anion Gap 7 BUN 21 H Creatinine 1.39 H Est GFR ( Amer) 51 L Glucose 221 H Calcium 9.0 Total Bilirubin 0.3 AST 34 Alkaline Phosphatase 138 H Total Protein 6.4 Albumin 3.4 L Impressions: Central Venous Line 11/17/18 00:00 IMPRESSION: Successful placement of a single lumen tunneled/cuffed small bore right internal jugular central venous catheter as detailed above. Guidance Fluoroscopy 11/17/18 00:00 IMPRESSION: Successful placement of a single lumen tunneled/cuffed small bore right internal jugular central venous catheter as detailed above. Guidance Ultrasound 11/17/18 00:00 IMPRESSION: Successful placement of a single lumen tunneled/cuffed small bore right internal jugular central venous catheter as detailed above. Abdomen/Pelvis CT 11/17/18 02:26 IMPRESSION: Chronic calcific pancreatitis. Difficult to exclude acute component. Assessment and Plan - Diagnosis (1) Acute on chronic pancreatitis Is this a current diagnosis for this admission?: Yes Plan: Currently NPO. Will advance to clear liquids today. Decrease IV Dilaudid and will try to keep her on oral pain meds. (2) Insulin dependent diabetes mellitus Is this a current diagnosis for this admission?: Yes Plan: Sliding scale for now. Will resume home Lantus when she is able to tolerate oral intake. - Time Time Spent with patient: 25-34 minutes
[2018-11-18] MEDS: HYDRALAZINE HCL INJ/PF 20 MG/1 ML SDV IV PRN (16:26)
[2018-11-18] MEDS: NORMAL SALINE 1000 ML 1,000 ML IV PRN (20:36)
[2018-11-18] MEDS: GABAPENTIN 300 MG CAPSULE PO SCH (21:17)
[2018-11-18] MEDS: DIPHENHYDRAMINE HCL 25 MG CAPSULE PO PRN (22:52)
[2018-11-19] MEDS: OXYCODONE-ACETAMINOPHEN 5-325 MG TABLET PO PRN ×4 (05:39→21:27)
[2018-11-19] MEDS: HEPARIN SOD (PORCINE) 5,000 UNIT/ML 1 ML VIAL SUBCUT SCH ×3 (05:39→21:28)
[2018-11-19] MEDS: NORMAL SALINE 1000 ML 1,000 ML IV PRN ×3 (05:40→21:33)
[2018-11-19 06:32] LABS: HEMATOCRIT 24.7 % (36.0-47.0); HEMOGLOBIN 8.1 g/dL (12.0-15.5); MEAN CORPUSCULAR HEMOGLOBIN 28.8 pg (27.0-33.4); MEAN CORPUSCULAR HGB CONC 32.8 g/dL (32.0-36.0); MEAN CORPUSCULAR VOLUME 88 fl (80-97); PLATELET COUNT 378 10^3/uL (150-450); RED BLOOD COUNT 2.81 10^6/uL (3.72-5.28); RED CELL DISTRIBUTION WIDTH 16.2 % (11.5-14.0); WHITE BLOOD COUNT 6.6 10^3/uL (4.0-10.5)
[2018-11-19 06:45] LABS: ALBUMIN 2.8 g/dL (3.5-5.0); ALKALINE PHOSPHATASE 118 U/L (38-126); ASPARTATE AMINO TRANSFERASE 30 U/L (14-36); BILIRUBIN,DIRECT 0.1 mg/dL (0.0-0.4); BILIRUBIN,TOTAL 0.3 mg/dL (0.2-1.3); BLOOD UREA NITROGEN 11 mg/dL (7-20); CALCIUM 8.9 mg/dL (8.4-10.2); CARBON DIOXIDE 22 mmol/L (22-30); CHLORIDE 110 mmol/L (98-107); GLUCOSE 81 mg/dL (75-110); POTASSIUM 4.3 mmol/L (3.6-5.0); TOTAL PROTEIN 5.5 g/dL (6.3-8.2)
[2018-11-19 06:47] LABS: ANION GAP 4 (5-19)
[2018-11-19 07:37] LABS: ABSOLUTE LYMPHOCYTES# (MANUAL) 3.9 10^3/uL (0.5-4.7); ABSOLUTE MONOCYTES # (MANUAL) 0.1 10^3/uL (0.1-1.4); BASOPHILS % (MANUAL) 1 % (0-2); EOSINOPHILS % (MANUAL) 1 % (0-6); LYMPHOCYTES % (MANUAL) 57 % (13-45); MONOCYTES % (MANUAL) 1 % (3-13); SEGMENTED NEUTROPHILS % (MAN) 38 % (42-78); TOTAL CELLS COUNTED 100
[2018-11-19 07:38] LABS: ANISOCYTOSIS 1+; PLATELET COMMENT ADEQUATE
[2018-11-19] MEDS: INSULIN LISPRO 100 UNIT/ML 3 ML VIAL SUBCUT SCH ×4 (08:01→21:27)
[2018-11-19] MEDS: LIPASE/PROTEASE/AMYLASE 1 CAP CAPSULE.DR PO SCH ×2 (08:07→17:26)
[2018-11-19] MEDS: HYDRALAZINE HCL INJ/PF 20 MG/1 ML SDV IV PRN (08:07)
[2018-11-19] MEDS: HYDROMORPHONE HCL INJ/PF 2 MG/ML AMPULE IV PRN ×2 (08:07→18:24)
[2018-11-19] MEDS: LISINOPRIL 10 MG TABLET PO SCH (09:31)
[2018-11-19] MEDS: METOPROLOL TARTRATE 50 MG TABLET PO SCH ×2 (09:31→21:27)
[2018-11-19] MEDS: AMLODIPINE BESYLATE 10 MG TABLET PO SCH (09:32)
[2018-11-19] MEDS: GABAPENTIN 300 MG CAPSULE PO SCH ×2 (09:32→21:27)
[2018-11-19 10:48] LABS: ALBUMIN 3.2 g/dL (3.5-5.0); ALKALINE PHOSPHATASE 146 U/L (38-126); ANION GAP 7 (5-19); ASPARTATE AMINO TRANSFERASE 40 U/L (14-36); BILIRUBIN,DIRECT 0.2 mg/dL (0.0-0.4); BILIRUBIN,TOTAL 0.4 mg/dL (0.2-1.3); BLOOD UREA NITROGEN 10 mg/dL (7-20); CARBON DIOXIDE 21 mmol/L (22-30); CHLORIDE 108 mmol/L (98-107); GLUCOSE 245 mg/dL (75-110); POTASSIUM 4.6 mmol/L (3.6-5.0); TOTAL PROTEIN 6.1 g/dL (6.3-8.2)
[2018-11-19] MEDS: INSULIN GLARGINE,HUM.REC.ANLOG 1,000 UNIT/10 ML VIAL SUBCUT SCH (13:27)
--- NOTE | 2018-11-19 15:28 | PDOC PROGRESS REPORT ---
Subjective Progress Note for:: 11/19/18 Subjective:: 11/18: She has had worsening abdominal pain yesterday afternoon. This morning, she appears more comfortable and says she feels much better. She says that her abdominal pain this morning is close to her baseline and she wants to eat. She is currently n.p.o. Will advance to clear liquids today. 11/19: No acute event overnight. Patient is currently on full liquid diet. She says her abdominal pain is improving. Will advance to soft diet today. Reason For Visit: ACUTE PANCREATITIS Physical Exam Vital Signs: Temp Pulse Resp BP Pulse Ox 98.0 F 86 19 197/105 H 99 11/19/18 07:52 11/19/18 07:52 11/19/18 07:52 11/19/18 07:52 11/19/18 07:52 Intake & Output 11/18/18 11/19/18 11/20/18 06:59 06:59 06:59 Intake Total 1000 4970 360 Balance 1000 4970 360 Weight 128 lb 15.527 oz 133 lb 6.075 oz General appearance: PRESENT: no acute distress, well-developed, well-nourished Head exam: PRESENT: atraumatic, normocephalic Eye exam: PRESENT: conjunctiva pink, EOMI, PERRLA. ABSENT: scleral icterus Ear exam: PRESENT: normal external ear exam Mouth exam: PRESENT: moist, tongue midline Neck exam: ABSENT: carotid bruit, JVD, lymphadenopathy, thyromegaly Respiratory exam: PRESENT: clear to auscultation teddy. ABSENT: rales, rhonchi, wheezes Cardiovascular exam: PRESENT: RRR. ABSENT: diastolic murmur, rubs, systolic murmur Pulses: PRESENT: normal dorsalis pedis pul GI/Abdominal exam: PRESENT: normal bowel sounds, soft, tenderness - minimal direct epigastric tenderness. ABSENT: distended, guarding, mass, organolmegaly, rebound Rectal exam: PRESENT: deferred Extremities exam: PRESENT: full ROM. ABSENT: calf tenderness, clubbing, pedal edema Neurological exam: PRESENT: alert, awake, oriented to person, oriented to place, oriented to time, oriented to situation, CN II-XII grossly intact. ABSENT: motor sensory deficit Results Laboratory Results: 11/19/18 05:45 11/19/18 10:20 11/19/18 11/19/18 11/19/18 05:45 05:45 10:20 WBC 6.6 RBC 2.81 L Hgb 8.1 L Hct 24.7 L MCV 88 MCH 28.8 MCHC 32.8 RDW 16.2 H Plt Count 378 Seg Neutrophils % Not Reportable Sodium 136.3 L 135.7 L Potassium 4.3 4.6 Chloride 110 H 108 H Carbon Dioxide 22 21 L Anion Gap 4 L 7 BUN 11 10 Creatinine 1.17 1.21 Est GFR ( Amer) > 60 > 60 Glucose 81 245 H Calcium 8.9 9.0 Magnesium 1.8 Total Bilirubin 0.3 0.4 AST 30 40 H Alkaline Phosphatase 118 146 H Total Protein 5.5 L 6.1 L Albumin 2.8 L 3.2 L Lipase 347.0 H TSH 11/19/18 10:20 WBC RBC Hgb Hct MCV MCH MCHC RDW Plt Count Seg Neutrophils % Sodium Potassium Chloride Carbon Dioxide Anion Gap BUN Creatinine Est GFR ( Amer) Glucose Calcium Magnesium Total Bilirubin AST Alkaline Phosphatase Total Protein Albumin Lipase TSH 1.46 Impressions: Central Venous Line 11/17/18 00:00 IMPRESSION: Successful placement of a single lumen tunneled/cuffed small bore right internal jugular central venous catheter as detailed above. Guidance Fluoroscopy 11/17/18 00:00 IMPRESSION: Successful placement of a single lumen tunneled/cuffed small bore right internal jugular central venous catheter as detailed above. Guidance Ultrasound 11/17/18 00:00 IMPRESSION: Successful placement of a single lumen tunneled/cuffed small bore right internal jugular central venous catheter as detailed above. Abdomen/Pelvis CT 11/17/18 02:26 IMPRESSION: Chronic calcific pancreatitis. Difficult to exclude acute component. Assessment and Plan - Diagnosis (1) Acute on chronic pancreatitis Is this a current diagnosis for this admission?: Yes Plan: 11/18: Currently NPO. Will advance to clear liquids today. Decrease IV Dilaudid and will try to keep her on oral pain meds. 11/19: Advance to soft diet today. (2) Insulin dependent diabetes mellitus Is this a current diagnosis for this admission?: Yes Plan: 11/18: Sliding scale for now. Will resume home Lantus when she is able to tolerate oral intake. 11/19: Resume Lantus. - Time Time Spent with patient: 15-24 minutes
[2018-11-19] MEDS: DIPHENHYDRAMINE HCL 25 MG CAPSULE PO PRN (21:27)
[2018-11-19] MEDS ORDERED: INSULIN GLARGINE,HUM.REC.ANLOG 1,000 UNIT/10 ML VIAL SUBCUT SCH (22:00)
[2018-11-20] MEDS: HYDROMORPHONE HCL INJ/PF 2 MG/ML AMPULE IV PRN ×2 (00:12→06:05)
[2018-11-20] MEDS: HEPARIN SOD (PORCINE) 5,000 UNIT/ML 1 ML VIAL SUBCUT SCH (05:08)
[2018-11-20] MEDS: NORMAL SALINE 1000 ML 1,000 ML IV PRN (05:08)
[2018-11-20 05:09] LABS: HEMATOCRIT 24.1 % (36.0-47.0); HEMOGLOBIN 8.1 g/dL (12.0-15.5); MEAN CORPUSCULAR HEMOGLOBIN 29.4 pg (27.0-33.4); MEAN CORPUSCULAR HGB CONC 33.5 g/dL (32.0-36.0); MEAN CORPUSCULAR VOLUME 88 fl (80-97); PLATELET COUNT 366 10^3/uL (150-450); RED BLOOD COUNT 2.74 10^6/uL (3.72-5.28); RED CELL DISTRIBUTION WIDTH 16.5 % (11.5-14.0); WHITE BLOOD COUNT 7.1 10^3/uL (4.0-10.5)
[2018-11-20] MEDS: OXYCODONE-ACETAMINOPHEN 5-325 MG TABLET PO PRN (05:21)
[2018-11-20 06:04] LABS: ABSOLUTE LYMPHOCYTES# (MANUAL) 3.3 10^3/uL (0.5-4.7); ABSOLUTE MONOCYTES # (MANUAL) 0.7 10^3/uL (0.1-1.4); BAND NEUTROPHILS % (MANUAL) 2 % (3-5); BASOPHILS % (MANUAL) 0 % (0-2); EOSINOPHILS % (MANUAL) 0 % (0-6); LYMPHOCYTES % (MANUAL) 41 % (13-45); MONOCYTES % (MANUAL) 10 % (3-13); SEGMENTED NEUTROPHILS % (MAN) 42 % (42-78); TOTAL CELLS COUNTED 100
[2018-11-20 06:05] LABS: ANISOCYTOSIS 1+; HYPOCHROMASIA 1+
[2018-11-20 06:06] LABS: PLATELET COMMENT ADEQUATE
[2018-11-20] MEDS: GABAPENTIN 300 MG CAPSULE PO SCH (09:21)
[2018-11-20] MEDS: AMLODIPINE BESYLATE 10 MG TABLET PO SCH (09:21)
[2018-11-20] MEDS: LISINOPRIL 10 MG TABLET PO SCH (09:22)
[2018-11-20] MEDS: METOPROLOL TARTRATE 50 MG TABLET PO SCH (09:22)
[2018-11-20] MEDS: INSULIN LISPRO 100 UNIT/ML 3 ML VIAL SUBCUT SCH ×2 (09:22→13:26)
[2018-11-20] MEDS: LIPASE/PROTEASE/AMYLASE 1 CAP CAPSULE.DR PO SCH (09:51)
--- NOTE | 2018-11-20 11:21 | RADIOLOGY REPORT (SQ) ---
EXAM DESCRIPTION: U/S EXTREMITY NONVASCULAR LTD COMPLETED DATE/TIME: 11/20/2018 11:10 am REASON FOR STUDY: RIGHT LUMP UPPER ARM COMPARISON: None. TECHNIQUE: Dynamic and static grayscale images acquired of the localized site of clinical concern an d recorded on PACS. Additional selected color Doppler and spectral images recorded. SITE OF CONCERN: Lump right upper extremity. LIMITATIONS: None. FINDINGS: SKIN AND SUBCUTANEOUS TISSUES: No masses. No fluid collections. No edema. No foreign deejay s. DEEP SOFT TISSUES/MUSCLES: No masses. No fluid collections. No edema. VASCULAR: No increased or decreased vascularity. No occlusions. OTHER: No other significant finding. IMPRESSION: NO SOFT TISSUE MASS, FLUID COLLECTION, OR FOREIGN BODY. TECHNICAL DOCUMENTATION: JOB ID: [id number] [employer]- All Rights Reserved Reading location - IP/workstation name: [email or web address]
[2018-11-20 12:18] VITALS: BP 175/99
--- NOTE | 2018-11-20 16:40 | PDOC DISCHARGE SUMMARY ---
Impression - Admit/DC Date/PCP Admission Date/Primary Care Provider: 11/17/18 04:59 LYNNE OLMEDO Discharge Date: 11/20/18 - Discharge Diagnosis (1) Acute on chronic pancreatitis Is this a current diagnosis for this admission?: Yes (2) Insulin dependent diabetes mellitus Is this a current diagnosis for this admission?: Yes - Additional Information Resuscitation Status: Full Code Discharge Diet: As Tolerated, Diabetic Discharge Activity: Activity As Tolerated, Balance Activity w/Rest Referrals: RONALD BARKER FNP-C [Primary Care Provider] - 11/22/18 10:45 am Home Medications: Amlodipine Besylate [Norvasc 10 mg Tablet] 10 mg PO DAILY 10/09/18 Insulin Aspart [Novolog Insulin (Aspart) 100 unit/mL] 10 units SQ MEALS 10/09/18 Insulin Glargine,Hum.rec.anlog [Lantus Insulin 100 Unit/1 ml 10 ml] 30 unit SQ QHS 10/09/18 Lisinopril [Prinivil 10 mg Tablet] 10 mg PO DAILY 10/09/18 Metoprolol Tartrate [Lopressor 50 mg Tablet] 50 mg PO Q12 10/09/18 Lipase/Protease/Amylase [Pancreaze-10 Capsule.] 1 cap PO BIDACBS #60 capsule.dr 11/02/18 Gabapentin [Neurontin 300 mg Capsule] 300 mg PO Q12 11/17/18 History of Present Illiness History of Present Illness: Admitting hospitalist's H&P: JJ LR is a 38 year old female with a past medical history of insulin- dependent diabetes and recurrent DKA, recurrent acute and chronic pancreatitis on pancreatic enzyme replacement and remote alcohol dependence. She presents with 6 hours of sharp epigastric pain associated with nausea and vomiting of gastric content. Recognizing the symptoms from previous events. She is prompted to seek evaluation in the emergency room where she is found to have a CT notable for acute and chronic pancreatitis without necrosis and a lipase of 14,000. She receives an IV fluid challenge and symptomatic management then referred to the hospitalist for admission. She denies recent illness, alcohol or new medications. Hospital Course Hospital Course: Ms. Lr was admitted for acute on chronic pancreatitis. She reports she just filled her Pancrease a day or so prior to having this recurrence. She was initially made n.p.o. and was started on IV fluids. She was also started on IV pain meds. Her diet was gradually advanced and she returned to her baseline. She was able to tolerate a regular diet eventually without any recurrence of abdominal pain. She will be discharged on her home regimen and was advised to start taking Pancreaze at home. Physical Exam Vital Signs: Temp Pulse Resp BP Pulse Ox 97.5 F 85 16 175/99 H 99 11/20/18 13:34 11/20/18 13:34 11/20/18 13:34 11/20/18 13:34 11/20/18 13:34 Intake & Output 11/19/18 11/20/18 11/21/18 06:59 06:59 06:59 Intake Total 4970 4291 600 Balance 4970 4291 600 Weight 133 lb 6.075 oz 131 lb 13.383 oz General appearance: PRESENT: no acute distress, well-developed, well-nourished Head exam: PRESENT: atraumatic, normocephalic Eye exam: PRESENT: conjunctiva pink, EOMI, PERRLA. ABSENT: scleral icterus Ear exam: PRESENT: normal external ear exam Mouth exam: PRESENT: moist, tongue midline Neck exam: ABSENT: carotid bruit, JVD, lymphadenopathy, thyromegaly Respiratory exam: PRESENT: clear to auscultation teddy. ABSENT: rales, rhonchi, wheezes Cardiovascular exam: PRESENT: RRR. ABSENT: diastolic murmur, rubs, systolic murmur Pulses: PRESENT: normal dorsalis pedis pul GI/Abdominal exam: PRESENT: normal bowel sounds, soft. ABSENT: distended, guarding, mass, organolmegaly, rebound, tenderness Rectal exam: PRESENT: deferred Neurological exam: PRESENT: alert, awake, oriented to person, oriented to place, oriented to time, oriented to situation, CN II-XII grossly intact. ABSENT: motor sensory deficit Results Laboratory Results: WBC 7.1 10^3/uL (4.0-10.5) 11/20/18 04:32 RBC 2.74 10^6/uL (3.72-5.28) L 11/20/18 04:32 Hgb 8.1 g/dL (12.0-15.5) L 11/20/18 04:32 Hct 24.1 % (36.0-47.0) L 11/20/18 04:32 MCV 88 fl (80-97) 11/20/18 04:32 MCH 29.4 pg (27.0-33.4) 11/20/18 04:32 MCHC 33.5 g/dL (32.0-36.0) 11/20/18 04:32 RDW 16.5 % (11.5-14.0) H 11/20/18 04:32 Plt Count 366 10^3/uL (150-450) 11/20/18 04:32 Lymph % (Auto) Not Reportable 11/20/18 04:32 Sharp % (Auto) Not Reportable 11/20/18 04:32 Eos % (Auto) Not Reportable 11/20/18 04:32 Baso % (Auto) Not Reportable 11/20/18 04:32 Reticulocyte # 0.059 10^6/uL (0.028-0.122) 11/17/18 00:08 Absolute Neuts (auto) Not Reportable 11/20/18 04:32 Absolute Lymphs (auto) Not Reportable 11/20/18 04:32 Absolute Monos (auto) Not Reportable 11/20/18 04:32 Absolute Eos (auto) Not Reportable 11/20/18 04:32 Absolute Basos (auto) Not Reportable 11/20/18 04:32 Total Counted 100 11/20/18 04:32 Seg Neutrophils % Not Reportable 11/20/18 04:32 Seg Neuts % (Manual) 42 % (42-78) 11/20/18 04:32 Band Neutrophils % 2 % (3-5) L 11/20/18 04:32 Lymphocytes % (Manual) 41 % (13-45) 11/20/18 04:32 Atypical Lymphs % 5 % (0) 11/20/18 04:32 Monocytes % (Manual) 10 % (3-13) 11/20/18 04:32 Eosinophils % (Manual) 0 % (0-6) 11/20/18 04:32 Basophils % (Manual) 0 % (0-2) 11/20/18 04:32 Abs Neuts (Manual) 3.1 10^3/uL (1.7-8.2) 11/20/18 04:32 Abs Lymphs (Manual) 3.3 10^3/uL (0.5-4.7) 11/20/18 04:32 Abs Monocytes (Manual) 0.7 10^3/uL (0.1-1.4) 11/20/18 04:32 Absolute Eos (Manual) 0.0 10^3/uL (0.0-0.6) 11/20/18 04:32 Abs Basophils (Manual) 0.0 10^3/uL (0.0-0.2) 11/20/18 04:32 Platelet Estimate Cancelled 11/18/18 05:15 Platelet Comment ADEQUATE 11/20/18 04:32 Hypochromasia 1+ 11/20/18 04:32 Anisocytosis 1+ 11/20/18 04:32 Retic Count (auto) 1.47 % (0.66-2.85) 11/17/18 00:08 VBG pH 7.34 (7.30-7.42) 11/17/18 00:54 VBG pCO2 45.1 mmHg (35-63) 11/17/18 00:54 VBG HCO3 23.8 mmol/L (20-32) 11/17/18 00:54 VBG Base Excess -2.0 mmol/L 11/17/18 00:54 Sodium 135.7 mmol/L (137-145) L 11/19/18 10:20 Potassium 4.6 mmol/L (3.6-5.0) 11/19/18 10:20 Chloride 108 mmol/L (98-107) H 11/19/18 10:20 Carbon Dioxide 21 mmol/L (22-30) L 11/19/18 10:20 Anion Gap 7 (5-19) 11/19/18 10:20 BUN 10 mg/dL (7-20) 11/19/18 10:20 Creatinine 1.21 mg/dL (0.52-1.25) 11/19/18 10:20 Est GFR ( Amer) > 60 (>60) 11/19/18 10:20 Est GFR (Non-Af Amer) Cancelled 11/17/18 00:08 Est GFR (MDRD) Non-Af 50 (>60) L 11/19/18 10:20 Glucose 245 mg/dL (75-110) H 11/19/18 10:20 POC Glucose 126 mg/dL (70-110) H 11/20/18 11:17 Calcium 9.0 mg/dL (8.4-10.2) 11/19/18 10:20 Magnesium 1.8 mg/dL (1.6-2.3) 11/19/18 05:45 Iron 27.7 ug/dL (37-170) L 11/17/18 00:54 TIBC 376 ug/dL (250-450) 11/17/18 00:54 % Saturation 7 % 11/17/18 00:54 Ferritin 23.60 ng/mL (6.2-137.0) 11/17/18 00:54 Total Bilirubin 0.4 mg/dL (0.2-1.3) 11/19/18 10:20 Direct Bilirubin 0.2 mg/dL (0.0-0.4) 11/19/18 10:20 Neonat Total Bilirubin Not Reportable 11/19/18 10:20 Neonat Direct Bilirubin Not Reportable 11/19/18 10:20 Neonat Indirect Bili Not Reportable 11/19/18 10:20 AST 40 U/L (14-36) H 11/19/18 10:20 ALT 26 U/L (<35) 11/19/18 10:20 Alkaline Phosphatase 146 U/L (38-126) H 11/19/18 10:20 Total Protein 6.1 g/dL (6.3-8.2) L 11/19/18 10:20 Albumin 3.2 g/dL (3.5-5.0) L 11/19/18 10:20 Amylase Cancelled 11/17/18 00:08 Lipase 347.0 U/L (23-300) H 11/19/18 10:20 EGFR Cancelled 11/17/18 00:08 Vitamin B12 724.0 pg/mL (239-931) 11/17/18 00:54 Folate 7.01 ng/mL (>2.76) 11/17/18 00:54 TSH 1.46 uIU/mL (0.47-4.68) 11/19/18 10:20 Urine Color STRAW 11/17/18 02:20 Urine Appearance SLIGHTLY-CLOUDY 11/17/18 02:20 Urine pH 5.0 (5.0-9.0) 11/17/18 02:20 Ur Specific [place] 1.010 10/11/19 02:20 Urine Protein 100 mg/dL (NEGATIVE) H 11/17/18 02:20 Urine Glucose (UA) >=500 mg/dL (NEGATIVE) H 11/17/18 02:20 Urine Ketones NEGATIVE mg/dL (NEGATIVE) 11/17/18 02:20 Urine Blood SMALL (NEGATIVE) H 11/17/18 02:20 Urine Nitrite NEGATIVE (NEGATIVE) 11/17/18 02:20 Urine Bilirubin NEGATIVE (NEGATIVE) 11/17/18 02:20 Urine Urobilinogen NEGATIVE mg/dL (<2.0) 11/17/18 02:20 Ur Leukocyte Esterase NEGATIVE (NEGATIVE) 11/17/18 02:20 Urine WBC (Auto) 1 /HPF 11/17/18 02:20 Urine RBC (Auto) 4 /HPF 11/17/18 02:20 Squamous Epi Cells Auto 3 /HPF 11/17/18 02:20 Urine Ascorbic Acid NEGATIVE (NEGATIVE) 11/17/18 02:20 Urine HCG, Qual NEGATIVE (NEGATIVE) 11/17/18 02:20 Urine Opiates Screen NEGATIVE 11/17/18 02:20 Urine Methadone Screen NEGATIVE 11/17/18 02:20 Ur Barbiturates Screen NEGATIVE 11/17/18 02:20 Ur Phencyclidine Scrn NEGATIVE 11/17/18 02:20 Ur Amphetamines Screen NEGATIVE 11/17/18 02:20 U Benzodiazepines Scrn NEGATIVE 11/17/18 02:20 Urine Cocaine Screen NEGATIVE 11/17/18 02:20 U Marijuana (THC) Screen UNCONFIRMED POSITIVE 11/17/18 02:20 Serum Alcohol < 10 mg/dL (NONE DETECTED) 11/17/18 00:54 Slides for Path Review Cancelled 11/18/18 05:15 Impressions: Central Venous Line 11/17/18 00:00 IMPRESSION: Successful placement of a single lumen tunneled/cuffed small bore right internal jugular central venous catheter as detailed above. Guidance Fluoroscopy 11/17/18 00:00 IMPRESSION: Successful placement of a single lumen tunneled/cuffed small bore right internal jugular central venous catheter as detailed above. Guidance Ultrasound 11/17/18 00:00 IMPRESSION: Successful placement of a single lumen tunneled/cuffed small bore right internal jugular central venous catheter as detailed above. Abdomen/Pelvis CT 11/17/18 02:26 IMPRESSION: Chronic calcific pancreatitis. Difficult to exclude acute component. Extremity Ultrasound 11/20/18 00:00 IMPRESSION: NO SOFT TISSUE MASS, FLUID COLLECTION, OR FOREIGN BODY. Stroke Is this a Stroke Patient?: No Acute Heart Failure - Is this a Heart Failure Patient?: No
== END 2018-11-20 14:45 | disposition home or self-care (01) | DRG 439 ==
LOC: ER 21:55 → EH 11-17 04:59 → 5 11-17 06:23
PROVIDERS: ADMIT Internal Medicine; ATTEND Internal Medicine
PROC: 02HV33Z Insertion of Infusion Device into Superior Vena Cava, Percutaneous Approach (ICD-10-PCS; principal; 2018-11-17)
PROC: B518ZZA Fluoroscopy of Superior Vena Cava, Guidance (ICD-10-PCS; 2018-11-17)
PROC: B548ZZA Ultrasonography of Superior Vena Cava, Guidance (ICD-10-PCS; 2018-11-17)
DX: K85.90 Acute pancreatitis without necrosis or infection, unspecified (principal); N17.9 Acute kidney failure, unspecified; I10 Essential (primary) hypertension; F17.200 Nicotine dependence, unspecified, uncomplicated; K86.1 Other chronic pancreatitis; J44.9 Chronic obstructive pulmonary disease, unspecified; E78.5 Hyperlipidemia, unspecified; D50.9 Iron deficiency anemia, unspecified; Z83.3 Family history of diabetes mellitus; Z90.710 Acquired absence of both cervix and uterus; Z79.4 Long term (current) use of insulin; Z79.899 Other long term (current) drug therapy; Z88.6 Allergy status to analgesic agent; F10.20 Alcohol dependence, uncomplicated
CPT/HCPCS: 36415; 36558; 74177; 76882; 76937; 77001; 80053; 80307; 81001; 81025; 82607; 82728; 82746; 82803; 82962; 83540; 83550; 83690; 83735; 84443; 85025; 85045; 87070; 93005; 93010; 96372; 96374; 99285; C1752; J0360; J1170; J1644; J1815; J1885; J2250; J2550; J3010; J3480; J3490; J7030; S0119

== ENCOUNTER 2018-12-01 10:34 | Inpatient (IN) | payer MEDICAID ==
[2018-12-01] MEDS ORDERED: NORMAL SALINE 1000 ML 1,000 ML IV ONE (10:55)
--- NOTE | 2018-12-01 11:03 | ER Document Report ---
ED General - General Chief Complaint: Unresponsive Stated Complaint: UNRESPONSIVE Time Seen by Provider: 12/01/18 10:52 Primary Care Provider: RONALD BARKER FNP-C [Primary Care Provider] - Follow up as needed Mode of Arrival: Wheelchair Information source: Relative TRAVEL OUTSIDE OF THE [place] IN LAST 30 DAYS: No - HPI Patient complains to provider of: unresponsive Onset: Just prior to arrival - Pt.'s sister found her unresponsive at home and dropped her off in the lobby of the ED and then left. There is no other hx available as I have tried to reach her sister without success. Staff says pt. usually here for DKA - Related Data Allergies/Adverse Reactions: hydrocodone [From [facility]] Allergy (Verified 10/29/18 13:23) morphine Allergy (Verified 10/29/18 13:23) Past Medical History - General Cannot obtain history due to: Altered mental status - Social History Smoking Status: Unknown if Ever Smoked Family History: Reviewed & Not Pertinent, DM, Hypertension - Past Medical History Cardiac Medical History: Reports: Hx Hypercholesterolemia, Hx Hypertension Denies: Hx Congestive Heart Failure, Hx Heart Attack Pulmonary Medical History: Reports: Hx COPD Denies: Hx Asthma Neurological Medical History: Reports: Hx Seizures. Denies: Hx Migraine Endocrine Medical History: Reports: Hx Diabetes Mellitus Type 1, Hx Diabetes Mellitus Type 2. Denies: Hx Hyperthyroidism, Hx Hypothyroidism Renal/ Medical History: Reports: Hx Renal Insufficiency. Denies: Hx End Stage Renal Disease, Hx Peritoneal Dialysis GI Medical History: Reports: Hx Pancreatitis. Denies: Hx Gastroesophageal Reflux Disease, Hx Hepatitis, Hx Hiatal Hernia Musculoskeletal Medical History: Denies Hx Arthritis Skin Medical History: Psychiatric Medical History: Denies: Hx Dementia, Hx Depression Infectious Medical History: Denies: Hx Hepatitis Past Surgical History: Reports: Hx Section - x3, Hx Hysterectomy Review of Systems - Review of Systems Constitutional: No symptoms reported EENT: No symptoms reported Cardiovascular: No symptoms reported Respiratory: No symptoms reported Gastrointestinal: No symptoms reported Musculoskeletal: No symptoms reported Neurological/Psychological: See HPI - MS change Physical Exam - Vital signs Vitals: Resp 18 12/01/18 10:57 - General General appearance: Lethargic In distress: None - HEENT Pupils: PERRL Pharynx: Normal Neck: Normal - Respiratory Respiratory status: No respiratory distress Breath sounds: Normal - Cardiovascular Rhythm: Regular Heart sounds: Normal auscultation Murmur: No - Abdominal Inspection: Normal Bowel sounds: Normal Tenderness: Tender - there is min TTP of her abdomen diffusely without peritoneal signs - Extremities General upper extremity: Normal inspection General lower extremity: Normal inspection - Neurological Neuro grossly intact: Yes El Coma Scale Eye Opening: To Pain - pt. became more alert during exam and IV insertion. States she is having abdominal pain and feels her "pancreas" may be acting up again Course - Re-evaluation Re-evalutation: 12/01/18 13:53 Pt feeling better after pain meds -- will call hospitalist for consult - Vital Signs Vital signs: Temp Pulse Resp BP Pulse Ox 98.5 F 12 190/118 H 100 12/01/18 11:42 12/01/18 13:46 12/01/18 13:46 12/01/18 13:46 - Laboratory Result Diagrams: 12/01/18 10:44 12/01/18 10:44 Laboratory results interpreted by me: 12/01/18 12/01/18 12/01/18 10:44 10:44 11:36 Hgb 11.3 L Hct 34.6 L RDW 15.8 H Carbon Dioxide 31 H BUN 25 H Creatinine 1.46 H Est GFR ( Amer) 49 L Est GFR (MDRD) Non-Af 40 L Direct Bilirubin 0.6 H AST 2755 H Alkaline Phosphatase 239 H Total Protein 8.5 H Amylase 337 H Lipase 4498.4 H Urine Protein >=500 H Urine Blood SMALL H - Diagnostic Test Radiology reviewed: Reports reviewed - ct head-neg. CT abd/pelvis - some biliary ductal dilatation - Consults zachery mata Time consulted: 14:11 Consulted provider: will come to ER Critical Care Note - Critical Care Note Total time excluding time spent on procedures (mins): 30 Discharge - Discharge Clinical Impression: Acute pancreatitis Qualifiers: Pancreatitis type: unspecified pancreatitis type Acute pancreatitis complication: unspecified Qualified Code(s): K85.90 - Acute pancreatitis without necrosis or infection, unspecified Condition: Fair Disposition: ADMITTED OBSERVATION Admitting Provider: adolfo Unit Admitted: Medical Floor Referrals: RONALD BARKER FNP-C [Primary Care Provider] - Follow up as needed
[2018-12-01] MEDS ORDERED: KETOROLAC TROMETHAMINE INJ/PF 30 MG/1 ML SDV IV ONE (11:07)
[2018-12-01 11:18] LABS: ABSOLUTE BASOPHILS # (AUTO) 0.1 10^3/uL (0.0-0.2); ABSOLUTE EOSINOPHILS # (AUTO) 0.1 10^3/uL (0.0-0.6); ABSOLUTE LYMPHOCYTES (AUTO) 2.5 10^3/uL (0.5-4.7); ABSOLUTE MONOCYTES (AUTO) 0.6 10^3/uL (0.1-1.4); ABSOLUTE NEUT (AUTO) 5.4 10^3/uL (1.7-8.2); BASOPHILS % (AUTO) 0.7 % (0-2); EOSINOPHILS % (AUTO) 0.8 % (0-6); HEMATOCRIT 34.6 % (36.0-47.0); HEMOGLOBIN 11.3 g/dL (12.0-15.5); LYMPHOCYTES % (AUTO) 28.5 % (13-45); MEAN CORPUSCULAR HEMOGLOBIN 28.4 pg (27.0-33.4); MEAN CORPUSCULAR HGB CONC 32.6 g/dL (32.0-36.0); MEAN CORPUSCULAR VOLUME 87 fl (80-97); MONOCYTES % (AUTO) 7.2 % (3-13); PLATELET COUNT 358 10^3/uL (150-450); RED BLOOD COUNT 3.97 10^6/uL (3.72-5.28); RED CELL DISTRIBUTION WIDTH 15.8 % (11.5-14.0); SEGMENTED NEUTROPHILS % (AUTO) 62.8 % (42-78); TOTAL CELLS COUNTED % (AUTO) 100 %; WHITE BLOOD COUNT 8.6 10^3/uL (4.0-10.5)
[2018-12-01 11:32] LABS: ALBUMIN 4.5 g/dL (3.5-5.0); ALKALINE PHOSPHATASE 239 U/L (38-126); AMYLASE 337 U/L (30-110); ANION GAP 7 (5-19); BILIRUBIN,DIRECT 0.6 mg/dL (0.0-0.4); BILIRUBIN,TOTAL 1.1 mg/dL (0.2-1.3); BLOOD UREA NITROGEN 25 mg/dL (7-20); CALCIUM 9.8 mg/dL (8.4-10.2); CARBON DIOXIDE 31 mmol/L (22-30); CHLORIDE 102 mmol/L (98-107); CREATINE KINASE 106 U/L (30-135); GLUCOSE 77 mg/dL (75-110); POTASSIUM 4.3 mmol/L (3.6-5.0); TOTAL PROTEIN 8.5 g/dL (6.3-8.2)
[2018-12-01 11:43] LABS: CREATINE KINASE MB 1.04 ng/mL (<4.55); TROPONIN I < 0.012 ng/mL
--- NOTE | 2018-12-01 11:56 | RADIOLOGY REPORT (SQ) ---
EXAM DESCRIPTION: CHEST SINGLE VIEW COMPLETED DATE/TIME: 12/01/2018 11:46 am REASON FOR STUDY: unresponsive COMPARISON: AP view of the chest from 10/30/2018. EXAM PARAMETERS: NUMBER OF VIEWS: One view. TECHNIQUE: Single frontal radiographic view of the chest acquired. RADIATION DOSE: NA LIMITATIONS: None. FINDINGS: LUNGS AND PLEURA: No consolidation, pleural effusion or pneumothorax. MEDIASTINUM AND HILAR STRUCTURES: No mediastinal or hilar contour abnormalities. HEART AND VASCULAR STRUCTURES: The cardiac silhouette and pulmonary vasculature are within normal hare its. BONES: No acute findings. HARDWARE: None in the chest. OTHER: No other finding. IMPRESSION: No acute cardiopulmonary process. TECHNICAL DOCUMENTATION: JOB ID: [id number] [employer]- All Rights Reserved Reading location - IP/workstation name: [email or web address]
[2018-12-01 11:58] LABS: APPEARANCE,URINE SLIGHTLY-CLOUDY; BILIRUBIN,URINE NEGATIVE (NEGATIVE); COLOR,URINE YELLOW; GLUCOSE, URINE NEGATIVE (NEGATIVE); KETONES,URINE NEGATIVE (NEGATIVE); LEUKOCYTE ESTERASE,URINE NEGATIVE (NEGATIVE); NITRITE,URINE NEGATIVE (NEGATIVE); PROTEIN,URINE >=500 mg/dL (NEGATIVE); URINE SPECIFIC GRAVITY 1.012; UROBILINOGEN,URINE NEGATIVE mg/dL (<2.0)
[2018-12-01] MEDS ORDERED: HYDROMORPHONE HCL INJ/PF 2 MG/ML AMPULE IV ONE (12:12)
[2018-12-01 12:16] LABS: URINE AMPHETAMINES SCREEN NEGATIVE; URINE BARBITURATES SCREEN NEGATIVE; URINE BENZODIAZEPINES SCREEN NEGATIVE; URINE COCAINE SCREEN NEGATIVE; URINE MARIJUANA (THC) SCREEN UNCONFIRMED POSITIVE; URINE METHADONE SCREEN NEGATIVE; URINE PHENCYCLIDINE SCREEN NEGATIVE
[2018-12-01 12:29] LABS: ASPARTATE AMINO TRANSFERASE 2755 U/L (14-36)
[2018-12-01 12:30] LABS: ALCOHOL < 10 mg/dL (NONE DETECTED)
--- NOTE | 2018-12-01 13:35 | RADIOLOGY REPORT (SQ) ---
EXAM DESCRIPTION: CT HEAD WITHOUT COMPLETED DATE/TIME: 12/01/2018 1:18 pm REASON FOR STUDY: unresponsive COMPARISON: CT of the head without contrast from 01/03/2018. TECHNIQUE: Axial images acquired through the brain without intravenous contrast. Images reviewed wi th bone, brain and subdural windows. Additional sagittal and coronal reconstructions were generated. Images stored on PACS. All CT scanners at this facility use dose modulation, iterative reconstruction, and/or weight based d osing when appropriate to reduce radiation dose to as low as reasonably achievable (ALARA). [facility]: Dose Right [facility]: CareDose [facility]: Dose Right [facility]: Teradose 4D [facility]: [employer] LIMITATIONS: None. FINDINGS: There is no acute intracranial hemorrhage, vascular territorial infarct, extra-axial fluid collection, mass effect, or midline shift. There is no effacement of cerebral sulci or basal subara chnoid cisterns. The estrada-white matter differentiation is preserved. The caliber the ventricles is concordant with the degree of sulcation. The paranasal sinuses are clear. The orbits and globes are normal in appearance. There is no fractu re of the calvarium. IMPRESSION: No acute intracranial abnormality. EVIDENCE OF ACUTE STROKE: NO. COMMENT: Quality ID # [id number]: Final reports with documentation of one or more dose reduction techniques (e.g., Automated exposure control, adjustment of the mA and/or kV according to patient size, use of iterative reconstruction technique) TECHNICAL DOCUMENTATION: JOB ID: [id number] [employer]- All Rights Reserved Reading location - IP/workstation name: [email or web address]
[2018-12-01] MEDS ORDERED: LABETALOL HCL INJ 20 MG/4 ML DISP.SYRIN IV ONE (13:47)
--- NOTE | 2018-12-01 13:48 | RADIOLOGY REPORT (SQ) ---
EXAM DESCRIPTION: CT ABD/PELVIS WITH IV ONLY COMPLETED DATE/TIME: 12/01/2018 1:18 pm REASON FOR STUDY: unresponsive COMPARISON: None. TECHNIQUE: CT scan of the abdomen and pelvis performed using helical scanning technique with dynamic intravenous contrast injection. No oral contrast. Images reviewed with lung, soft tissue, and bone windows. Reconstructed coronal and sagittal MPR images reviewed. Delayed images for evaluation of the urinary system also acquired. All images stored on PACS. All CT scanners at this facility use dose modulation, iterative reconstruction, and/or weight based d osing when appropriate to reduce radiation dose to as low as reasonably achievable (ALARA). [facility]: Dose Right [facility]: CareDose [facility]: Dose Right [facility]: Teradose 4D [facility]: [email or web address] CONTRAST TYPE AND DOSE: 65 mL Omnipaque 350- low osmolar. RENAL FUNCTION: Creatinine 1.46 mg per dL. LIMITATIONS: None. FINDINGS: LOWER CHEST: No basilar consolidation, pleural effusion or nodule. Borderline cardiomegal y. No pericardial effusion LIVER: The liver morphology is non cirrhotic. There is no hepatic mass. The portal and hepatic vein s are patent. SPLEEN: No splenomegaly. PANCREAS: Findings of chronic pancreatitis with parenchymal calcifications and dilation of the pancre atic duct ; there is no peripancreatic fluid or other findings to indicate an acute on chronic pancre atitis. GALLBLADDER: No abnormality that is apparent on CT. The common bile duct is dilated and measures up to 8 mm in diameter, unchanged from 08/04/2018. The intrahepatic bile ducts are at the rachel hepatis are distended, also unchanged from the CT. ADRENAL GLANDS: No abnormality. RIGHT KIDNEY AND URETER: No solid masses, hydronephrosis, nephrolithiasis, hydroureter or ureterolith iasis. LEFT KIDNEY AND URETER: No solid masses, hydronephrosis, nephrolithiasis, hydroureter or ureterolithi asis. AORTA AND VESSELS: No aneurysmal dilate station or dissection of the abdominal aorta. RETROPERITONEUM: No retroperitoneal adenopathy, hemorrhage or mass. BOWEL AND PERITONEAL CAVITY: No acute findings. APPENDIX: Unable to identify the appendix but there is no pericecal inflammation to suggest an acute appendicitis. PELVIS: The urinary bladder is partially distended. The prostate gland is normal in size. There is no pelvic adenopathy, free fluid or mass. ABDOMINAL WALL: No sizable hernias. BONES: No acute findings. OTHER: No other finding. IMPRESSION: 1. No evidence of an acute on chronic pancreatitis. 2. Unchanged biliary ductal dilatation as detailed above. If there is concern for biliary pathology based on elevation of the serum alkaline phosphatase or bilirubin correlation with ultrasound is rec ommended. TECHNICAL DOCUMENTATION: JOB ID: [id number] Quality ID # [id number]: Final reports with documentation of one or more dose reduction techniques (e.g., Au tomated exposure control, adjustment of the mA and/or kV according to patient size, use of iterative reconstruction technique) 2010 [employer]- All Rights Reserved Reading location - IP/workstation name: [email or web address]-
[2018-12-01] MEDS ORDERED: CLONIDINE HCL 0.2 MG TABLET PO ONE (14:13)
[2018-12-01] MEDS ORDERED: MAG HYDROX/AL HYDROX/SIMETH SUSP 30 ML UDCUP PO PRN (15:57)
[2018-12-01] MEDS ORDERED: KETOROLAC TROMETHAMINE INJ/PF 30 MG/1 ML SDV IV PRN (16:10)
[2018-12-01] MEDS ORDERED: HYDRALAZINE HCL INJ/PF 20 MG/1 ML SDV IV ONE ×2 (16:16→18:01)
[2018-12-01] MEDS: METOPROLOL TARTRATE 50 MG TABLET PO SCH ×2 (16:22→21:08)
--- NOTE | 2018-12-01 16:27 | PDOC H&P ---
History of Present Illness Admission Date/PCP: 12/01/18 15:07 LYNNE OLMEDO Patient complains of: Abdominal pain History of Present Illness: JJ HOFFMAN is a 38 year old female with a history of type 1 diabetes mellitus, kidney disease, COPD, hypertension, and chronic alcoholic pancreatitis, was brought in by patient sister to the emergency department with complaints of abdominal pain. Of note, patient ER DrDaisy, patient was initially altered and very drowsy and hard to arouse. However this resolved when we attempted to get IV line in. Patient currently fully awake and alert. Patient states that she really developed epigastric pain this morning. At that time she checked her blood sugar and it was 70. Given escalation of the pain to a scale of 9 out of 10 and associated nausea without vomiting patient decided come to the emergency room for help. Patient states that is similar to her prior episodes of pancreatitis. Patient states that she has had pancreatitis for several years initially diagnosed to be due to alcoholism but has not drank alcohol in several years. She does endorse history of prior alcohol abuse drinking several pints of vodka a day but not in several years. Patient denies any fever, chills, chest pain shortness of breath, headaches, lightheadedness, dizziness. Patient denies any drug use besides using marijuana to try to soothe her pain. Patient states that she has an appointment with an outpatient GI doctor but has been able to make it. Patient states that she took her blood pressure medications today. Past Medical History Cardiac Medical History: Reports: Hyperlipidema, Hypertension Denies: Congestive Heart Failure, Myocardial Infarction Pulmonary Medical History: Reports: Chronic Obstructive Pulmonary Disease (COPD) Denies: Asthma Neurological Medical History: Reports: Seizures Denies: Migraine Endocrine Medical History: Reports: Diabetes Mellitus Type 1 Denies: Hyperthyroidism, Hypothyroidism Renal/ Medical History: Denies: End Stage Renal Disease GI Medical History: Denies: Gastroesophageal Reflux Disease, Hepatitis, Hiatal Hernia Musculoskeltal Medical History: Denies: Arthritis Skin Medical History: Psychiatric Medical History: Denies: Dementia, Depression Hematology: Reports: Anemia Denies: Bleeding Tendencies Past Surgical History Past Surgical History: Reports: Section - x3, Hysterectomy Social History Smoking Status: Unknown if Ever Smoked Frequency of Alcohol Use: Occasional Hx Recreational Drug Use: Yes Drugs: Marijuana Hx Prescription Drug Abuse: No - Advance Directive Resuscitation Status: Full Code Family History Family History: Reviewed & Not Pertinent, DM, Hypertension Parental Family History Reviewed: Yes Children Family History Reviewed: NA Sibling(s) Family History Reviewed.: NA Medication/Allergy Home Medications: Amlodipine Besylate [Norvasc 10 mg Tablet] 10 mg PO DAILY 12/01/18 Gabapentin [Neurontin 300 mg Capsule] 300 mg PO Q12 12/01/18 Insulin Aspart [Novolog Flexpen] 0 unit SUBCUT .SLD SCALE 12/01/18 Insulin Glargine,Hum.rec.anlog [Lantus Insulin 100 Unit/1 ml 10 ml] 40 unit SUBCUT DAILY 12/01/18 Lisinopril [Prinivil 10 mg Tablet] 10 mg PO DAILY 12/01/18 Metoprolol Tartrate [Lopressor 50 mg Tablet] 50 mg PO Q12 12/01/18 Allergies/Adverse Reactions: hydrocodone [From [place]] Allergy (Verified 10/29/18 13:23) morphine Allergy (Verified 10/29/18 13:23) Review of Systems Constitutional: ABSENT: anorexia, fever(s) Eyes: ABSENT: visual disturbances Ears: ABSENT: hearing changes Nose, Mouth, and Throat: ABSENT: headache(s), mouth pain Cardiovascular: ABSENT: chest pain, dyspnea on exertion, palpitations Respiratory: ABSENT: dyspnea Gastrointestinal: PRESENT: abdominal pain, nausea. ABSENT: coffee ground emesis, diarrhea, vomiting Genitourinary: ABSENT: difficulty urinating, dysuria Neurological: ABSENT: confusion Psychiatric: ABSENT: hallucinations Endocrine: ABSENT: polyuria Physical Exam Vital Signs: Temp Pulse Resp BP Pulse Ox 98.5 F 21 H 167/113 H 100 12/01/18 11:42 12/01/18 16:01 12/01/18 16:00 12/01/18 16:01 Intake & Output 11/30/18 12/01/18 12/02/18 06:59 06:59 06:59 Intake Total 1000 Balance 1000 Weight 50.9 kg General appearance: PRESENT: cooperative, mild distress - from Pain Eye exam: PRESENT: EOMI Mouth exam: PRESENT: moist Neck exam: ABSENT: JVD, tracheal deviation Respiratory exam: PRESENT: clear to auscultation teddy Cardiovascular exam: PRESENT: RRR, +S1 Vascular exam: PRESENT: normal capillary refill GI/Abdominal exam: PRESENT: normal bowel sounds, rebound, soft, tenderness - Epigastric. ABSENT: distended, firm, guarding, hernia, rigid Rectal exam: PRESENT: deferred Extremities exam: ABSENT: calf tenderness Musculoskeletal exam: PRESENT: ambulatory Neurological exam: PRESENT: alert, awake, oriented to person, oriented to place, oriented to time, oriented to situation Psychiatric exam: PRESENT: normal mood Focused psych exam: ABSENT: internal stimuli Results Laboratory Results: 12/01/18 10:44 12/01/18 10:44 12/01/18 12/01/18 12/01/18 10:44 10:44 10:44 WBC 8.6 RBC 3.97 Hgb 11.3 L Hct 34.6 L MCV 87 MCH 28.4 MCHC 32.6 RDW 15.8 H Plt Count 358 Seg Neutrophils % 62.8 Sodium 139.9 Potassium 4.3 Chloride 102 Carbon Dioxide 31 H Anion Gap 7 BUN 25 H Creatinine 1.46 H Est GFR ( Amer) 49 L Glucose 77 Calcium 9.8 Total Bilirubin 1.1 AST 2755 H Alkaline Phosphatase 239 H Total Protein 8.5 H Albumin 4.5 Amylase 337 H Lipase 4498.4 H TSH 0.69 Urine Color Urine Appearance Urine pH Ur Specific [place] Urine Protein Urine Glucose (UA) Urine Ketones Urine Blood Urine Nitrite Ur Leukocyte Esterase Urine WBC (Auto) Urine RBC (Auto) 12/01/18 11:36 WBC RBC Hgb Hct MCV MCH MCHC RDW Plt Count Seg Neutrophils % Sodium Potassium Chloride Carbon Dioxide Anion Gap BUN Creatinine Est GFR ( Amer) Glucose Calcium Total Bilirubin AST Alkaline Phosphatase Total Protein Albumin Amylase Lipase TSH Urine Color YELLOW Urine Appearance SLIGHTLY-CLOUDY Urine pH 6.0 Ur Specific [place] 1.012 Urine Protein >=500 H Urine Glucose (UA) NEGATIVE Urine Ketones NEGATIVE Urine Blood SMALL H Urine Nitrite NEGATIVE Ur Leukocyte Esterase NEGATIVE Urine WBC (Auto) 1 Urine RBC (Auto) 2 12/01/18 12/01/18 10:44 10:44 Creatine Kinase 106 CK-MB (CK-2) 1.04 Troponin I < 0.012 Impressions: Abdomen/Pelvis CT 12/01/18 10:52 IMPRESSION: 1. No evidence of an acute on chronic pancreatitis. 2. Unchanged biliary ductal dilatation as detailed above. If there is concern for biliary pathology based on elevation of the serum alkaline phosphatase or bilirubin correlation with ultrasound is recommended. Chest X-Ray 12/01/18 10:52 IMPRESSION: No acute cardiopulmonary process. Head CT 12/01/18 10:52 IMPRESSION: No acute intracranial abnormality. EVIDENCE OF ACUTE STROKE: NO. Assessment and Plan - Diagnosis (1) Acute on chronic pancreatitis Is this a current diagnosis for this admission?: Yes Plan: No clear source of aggravating factor Started on aggressive IV fluid hydration and IV pain medication And claims allergy to hydrocodone and morphine Will allow for diet as tolerated Zofran as needed nausea (2) Hypertensive urgency Is this a current diagnosis for this admission?: Yes Plan: May be secondary to uncontrolled hypertension versus pain We will resume blood pressure medications Control pain (3) IDDM (insulin dependent diabetes mellitus) Is this a current diagnosis for this admission?: Yes Plan: Resume patient's home dose of Lantus 30 units daily Sliding scale insulin - Time Time Spent with patient: 35 or more minutes
--- NOTE | 2018-12-01 18:20 | RADIOLOGY REPORT (SQ) ---
EXAM DESCRIPTION: U/S ABDOMEN LTD W/DOPPLER COMPLETED DATE/TIME: 12/01/2018 5:06 pm REASON FOR STUDY: Transaminases, pancreatitis, evaluate biliary tract COMPARISON: None. TECHNIQUE: Dynamic and static grayscale images acquired of the abdomen and recorded on PACS. Additio stephy selected color Doppler and spectral images recorded. LIMITATIONS: None. FINDINGS: PANCREAS: Not seen. LIVER: No masses. Echotexture normal. LIVER VASCULATURE: Normal directional flow of the main portal vein and hepatic veins. GALLBLADDER: No stones. Normal wall thickness. No pericholecystic fluid. ULTRASOUND-DETECTED VARGAS'S SIGN: Negative. INTRAHEPATIC DUCTS AND COMMON DUCT: Common bile duct dilated at 9.5 mm. INFERIOR VENA CAVA: Normal flow. AORTA: No aneurysm proximally. The mid and distal aorta were not seen. RIGHT KIDNEY: Normal size, 9.7 cm. Normal echogenicity. No solid or suspicious masses. No hydronephr osis. No calcifications. PERITONEAL AND RIGHT PLEURAL SPACE: No ascites or effusions. OTHER: No other significant findings. IMPRESSION: Dilated common bile duct at 9.5 mm. Normal gallbladder. Liver is unremarkable. Pancre as is not seen. TECHNICAL DOCUMENTATION: JOB ID: [id number] [employer]- All Rights Reserved Reading location - IP/workstation name: [email or web address]
[2018-12-01] MEDS: HYDROMORPHONE HCL INJ/PF 2 MG/ML AMPULE IV PRN (19:43)
[2018-12-01] MEDS: GABAPENTIN 300 MG CAPSULE PO SCH (21:08)
[2018-12-02] MEDS: HYDROMORPHONE HCL INJ/PF 2 MG/ML AMPULE IV PRN ×5 (02:26→22:51)
[2018-12-02 05:22] LABS: ABSOLUTE EOSINOPHILS # (AUTO) 0.1 10^3/uL (0.0-0.6); ABSOLUTE LYMPHOCYTES (AUTO) 1.4 10^3/uL (0.5-4.7); ABSOLUTE MONOCYTES (AUTO) 0.4 10^3/uL (0.1-1.4); BASOPHILS % (AUTO) 0.5 % (0-2); EOSINOPHILS % (AUTO) 2.5 % (0-6); HEMATOCRIT 28.5 % (36.0-47.0); HEMOGLOBIN 9.3 g/dL (12.0-15.5); MEAN CORPUSCULAR HEMOGLOBIN 28.6 pg (27.0-33.4); MEAN CORPUSCULAR HGB CONC 32.6 g/dL (32.0-36.0); MEAN CORPUSCULAR VOLUME 88 fl (80-97); MONOCYTES % (AUTO) 7.8 % (3-13); PLATELET COUNT 265 10^3/uL (150-450); RED BLOOD COUNT 3.25 10^6/uL (3.72-5.28); RED CELL DISTRIBUTION WIDTH 15.7 % (11.5-14.0); SEGMENTED NEUTROPHILS % (AUTO) 61.2 % (42-78); TOTAL CELLS COUNTED % (AUTO) 100 %; WHITE BLOOD COUNT 4.9 10^3/uL (4.0-10.5)
[2018-12-02 05:52] LABS: ALBUMIN 3.5 g/dL (3.5-5.0); ALKALINE PHOSPHATASE 249 U/L (38-126); ANION GAP 7 (5-19); BILIRUBIN,DIRECT 0.2 mg/dL (0.0-0.4); BILIRUBIN,TOTAL 0.7 mg/dL (0.2-1.3); BLOOD UREA NITROGEN 18 mg/dL (7-20); CALCIUM 9.2 mg/dL (8.4-10.2); CARBON DIOXIDE 24 mmol/L (22-30); CHLORIDE 107 mmol/L (98-107); GLUCOSE 100 mg/dL (75-110); POTASSIUM 4.4 mmol/L (3.6-5.0); TOTAL PROTEIN 6.4 g/dL (6.3-8.2)
[2018-12-02 06:09] LABS: ASPARTATE AMINO TRANSFERASE 1605 U/L (14-36)
[2018-12-02] MEDS: ENOXAPARIN SODIUM INJ 40 MG/0.4 ML DISP.SYRIN SUBCUT SCH (09:37)
[2018-12-02] MEDS: METOPROLOL TARTRATE 50 MG TABLET PO SCH ×2 (09:38→22:53)
[2018-12-02] MEDS: AMLODIPINE BESYLATE 10 MG TABLET PO SCH (09:38)
[2018-12-02] MEDS: INSULIN GLARGINE,HUM.REC.ANLOG 1,000 UNIT/10 ML VIAL SUBCUT SCH (09:39)
[2018-12-02] MEDS: GABAPENTIN 300 MG CAPSULE PO SCH ×2 (09:39→22:53)
[2018-12-02] MEDS ORDERED: DEXTROSE 50%-WATER 25 GM/50 ML DISP.SYRIN IV PRN ×2 (10:24)
[2018-12-02] MEDS ORDERED: GLUCAGON,HUMAN RECOMB 1 MG INJ IM PRN (10:24)
[2018-12-02] MEDS ORDERED: DEXTROSE 40% GEL 15 GM TUBE PO PRN ×2 (10:24)
[2018-12-02] MEDS: NORMAL SALINE 1000 ML 1,000 ML IV PRN ×3 (10:28→22:51)
--- NOTE | 2018-12-02 10:32 | PDOC PROGRESS REPORT ---
Subjective Progress Note for:: 12/02/18 Subjective:: Patient still has abdominal pain but states that it is improved from yesterday. Patient states that her nausea has resolved and was able to tolerate food. Patient will like her diet to be advanced to regular. Denies any fever chills or trouble breathing. Reason For Visit: ACUTE ON CHRONIC PANCREATITIS, ABDOMINAL PAIN Physical Exam Vital Signs: Temp Pulse Resp BP Pulse Ox 97.9 F 78 17 184/103 H 94 12/02/18 07:51 12/02/18 07:51 12/02/18 07:51 12/02/18 07:51 12/02/18 07:51 Intake & Output 12/01/18 12/02/18 12/03/18 06:59 06:59 06:59 Intake Total 2355 Balance 2355 Weight 58.5 kg General appearance: PRESENT: no acute distress, cooperative Eye exam: PRESENT: EOMI Mouth exam: PRESENT: moist Throat exam: ABSENT: tonsillar exudate Neck exam: ABSENT: JVD, tracheal deviation Respiratory exam: PRESENT: clear to auscultation teddy. ABSENT: crackles, rhonchi, wheezes Cardiovascular exam: PRESENT: RRR, +S1 Vascular exam: ABSENT: pallor GI/Abdominal exam: PRESENT: normal bowel sounds, soft, tenderness. ABSENT: guarding, Burr's sign, rebound, rigid Rectal exam: PRESENT: deferred Gentrourinary exam: ABSENT: ecchymosis Extremities exam: ABSENT: calf tenderness Musculoskeletal exam: PRESENT: ambulatory Neurological exam: PRESENT: alert, awake, oriented to person, oriented to place, oriented to time, oriented to situation Results Laboratory Results: 12/02/18 04:53 12/02/18 04:53 12/01/18 12/01/18 12/01/18 10:44 10:44 10:44 WBC 8.6 RBC 3.97 Hgb 11.3 L Hct 34.6 L MCV 87 MCH 28.4 MCHC 32.6 RDW 15.8 H Plt Count 358 Seg Neutrophils % 62.8 Sodium 139.9 Potassium 4.3 Chloride 102 Carbon Dioxide 31 H Anion Gap 7 BUN 25 H Creatinine 1.46 H Est GFR ( Amer) 49 L Glucose 77 Calcium 9.8 Magnesium Total Bilirubin 1.1 AST 2755 H Alkaline Phosphatase 239 H Total Protein 8.5 H Albumin 4.5 Amylase 337 H Lipase 4498.4 H TSH 0.69 Urine Color Urine Appearance Urine pH Ur Specific [place] Urine Protein Urine Glucose (UA) Urine Ketones Urine Blood Urine Nitrite Ur Leukocyte Esterase Urine WBC (Auto) Urine RBC (Auto) 12/01/18 12/02/18 12/02/18 11:36 04:53 04:53 WBC 4.9 RBC 3.25 L Hgb 9.3 L Hct 28.5 L MCV 88 MCH 28.6 MCHC 32.6 RDW 15.7 H Plt Count 265 Seg Neutrophils % 61.2 Sodium 138.4 Potassium 4.4 Chloride 107 Carbon Dioxide 24 Anion Gap 7 BUN 18 Creatinine 1.24 Est GFR ( Amer) 59 L Glucose 100 Calcium 9.2 Magnesium 2.1 Total Bilirubin 0.7 AST 1605 H Alkaline Phosphatase 249 H Total Protein 6.4 Albumin 3.5 Amylase Lipase TSH Urine Color YELLOW Urine Appearance SLIGHTLY-CLOUDY Urine pH 6.0 Ur Specific [place] 1.012 Urine Protein >=500 H Urine Glucose (UA) NEGATIVE Urine Ketones NEGATIVE Urine Blood SMALL H Urine Nitrite NEGATIVE Ur Leukocyte Esterase NEGATIVE Urine WBC (Auto) 1 Urine RBC (Auto) 2 12/01/18 12/01/18 10:44 10:44 Creatine Kinase 106 CK-MB (CK-2) 1.04 Troponin I < 0.012 Impressions: Abdomen Ultrasound 12/01/18 00:00 IMPRESSION: Dilated common bile duct at 9.5 mm. Normal gallbladder. Liver is unremarkable. Pancreas is not seen. Abdomen/Pelvis CT 12/01/18 10:52 IMPRESSION: 1. No evidence of an acute on chronic pancreatitis. 2. Unchanged biliary ductal dilatation as detailed above. If there is concern for biliary pathology based on elevation of the serum alkaline phosphatase or bilirubin correlation with ultrasound is recommended. Chest X-Ray 12/01/18 10:52 IMPRESSION: No acute cardiopulmonary process. Head CT 12/01/18 10:52 IMPRESSION: No acute intracranial abnormality. EVIDENCE OF ACUTE STROKE: NO. Assessment and Plan - Diagnosis (1) Acute on chronic pancreatitis Is this a current diagnosis for this admission?: Yes Plan: No clear source of aggravating factor Continue aggressive IV fluid hydration and IV pain medication And claims allergy to hydrocodone and morphine Will advance diet Zofran as needed for nausea (2) Common bile duct dilatation Is this a current diagnosis for this admission?: Yes Plan: Abdominal ultrasound revealing dilated common bile duct of 9.4mm. This finding is new as compared to ultrasound last month. I do not believe that her common bile duct is still obstructed at this time giving normal of her bilirubin levels and improvement of her transaminases. However it is possible that this could have been secondary to choledocholithiasis that has now passed. No gallstones visualized in the gallbladder. (3) Hypertensive urgency Is this a current diagnosis for this admission?: Yes Plan: Resolved. Continue blood pressure medications and pain control. (4) IDDM (insulin dependent diabetes mellitus) Is this a current diagnosis for this admission?: Yes Plan: Continue patient's stated home dose of Lantus 30 units daily Sliding scale insulin and Accu-Cheks before meals & at bedtime (5) Transaminitis Is this a current diagnosis for this admission?: Yes Plan: Plan as above - Time Time Spent with patient: 15-24 minutes
[2018-12-02] MEDS: INSULIN LISPRO 100 UNIT/ML 3 ML VIAL SUBCUT SCH ×3 (12:13→22:51)
[2018-12-02] MEDS: ONDANSETRON HCL INJ/PF 4 MG/2 ML SDV IV PRN ×2 (14:45→22:52)
[2018-12-02] MEDS: LISINOPRIL 10 MG TABLET PO SCH (16:06)
[2018-12-02] MEDS: METOCLOPRAMIDE HCL INJ/PF 10 MG/2 ML SDV IV PRN (20:09)
[2018-12-03] MEDS: HYDROMORPHONE HCL INJ/PF 2 MG/ML AMPULE IV PRN ×3 (02:34→11:30)
[2018-12-03 05:34] LABS: HEMATOCRIT 26.4 % (36.0-47.0); HEMOGLOBIN 8.7 g/dL (12.0-15.5); MEAN CORPUSCULAR HEMOGLOBIN 29.1 pg (27.0-33.4); MEAN CORPUSCULAR HGB CONC 32.9 g/dL (32.0-36.0); MEAN CORPUSCULAR VOLUME 88 fl (80-97); PLATELET COUNT 249 10^3/uL (150-450); RED BLOOD COUNT 2.99 10^6/uL (3.72-5.28); RED CELL DISTRIBUTION WIDTH 15.7 % (11.5-14.0); RETICULOCYTE COUNT (AUTO) 1.35 % (0.66-2.85); WHITE BLOOD COUNT 5.7 10^3/uL (4.0-10.5)
[2018-12-03 05:51] LABS: ALBUMIN 3.2 g/dL (3.5-5.0); ALKALINE PHOSPHATASE 238 U/L (38-126); ANION GAP 6 (5-19); ASPARTATE AMINO TRANSFERASE 395 U/L (14-36); BILIRUBIN,DIRECT 0.2 mg/dL (0.0-0.4); BILIRUBIN,TOTAL 0.2 mg/dL (0.2-1.3); BLOOD UREA NITROGEN 22 mg/dL (7-20); CALCIUM 8.8 mg/dL (8.4-10.2); CARBON DIOXIDE 24 mmol/L (22-30); CHLORIDE 107 mmol/L (98-107); GLUCOSE 246 mg/dL (75-110); IRON(TIBC) 32.4 ug/dL (37-170); POTASSIUM 4.9 mmol/L (3.6-5.0)
[2018-12-03] MEDS: METOCLOPRAMIDE HCL INJ/PF 10 MG/2 ML SDV IV PRN (06:35)
[2018-12-03 07:05] LABS: ABSOLUTE LYMPHOCYTES# (MANUAL) 2.3 10^3/uL (0.5-4.7); ABSOLUTE MONOCYTES # (MANUAL) 0.5 10^3/uL (0.1-1.4); BAND NEUTROPHILS % (MANUAL) 2 % (3-5); BASOPHILS % (MANUAL) 0 % (0-2); EOSINOPHILS % (MANUAL) 1 % (0-6); LYMPHOCYTES % (MANUAL) 38 % (13-45); MONOCYTES % (MANUAL) 8 % (3-13); SEGMENTED NEUTROPHILS % (MAN) 48 % (42-78); TOTAL CELLS COUNTED 100
[2018-12-03 07:06] LABS: ANISOCYTOSIS SLIGHT; HYPOCHROMASIA 1+; PLATELET COMMENT ADEQUATE
[2018-12-03] MEDS ORDERED: NORMAL SALINE 1000 ML 1,000 ML IV ONE (07:34)
[2018-12-03] MEDS ORDERED: NORMAL SALINE 1000 ML 500 ML IV ONE (07:35)
[2018-12-03] MEDS ORDERED: LISINOPRIL 10 MG TABLET PO ONE (08:30)
[2018-12-03] MEDS ORDERED: METOPROLOL TARTRATE 50 MG TABLET PO ONE (08:30)
[2018-12-03] MEDS: INSULIN LISPRO 100 UNIT/ML 3 ML VIAL SUBCUT SCH ×2 (08:42→12:41)
[2018-12-03] MEDS ORDERED: AMLODIPINE BESYLATE 10 MG TABLET PO ONE (09:00)
[2018-12-03] MEDS: METOPROLOL TARTRATE 50 MG TABLET PO SCH (09:23)
[2018-12-03] MEDS: AMLODIPINE BESYLATE 10 MG TABLET PO SCH (09:23)
[2018-12-03] MEDS: LISINOPRIL 10 MG TABLET PO SCH (09:24)
[2018-12-03] MEDS: INSULIN GLARGINE,HUM.REC.ANLOG 1,000 UNIT/10 ML VIAL SUBCUT SCH (09:24)
[2018-12-03] MEDS: ENOXAPARIN SODIUM INJ 40 MG/0.4 ML DISP.SYRIN SUBCUT SCH (09:25)
[2018-12-03] MEDS: GABAPENTIN 300 MG CAPSULE PO SCH (09:25)
[2018-12-03] MEDS: ONDANSETRON HCL INJ/PF 4 MG/2 ML SDV IV PRN (11:30)
[2018-12-03 12:27] LABS: ANION GAP 7 (5-19); BLOOD UREA NITROGEN 20 mg/dL (7-20); CALCIUM 8.7 mg/dL (8.4-10.2); CARBON DIOXIDE 23 mmol/L (22-30); CHLORIDE 110 mmol/L (98-107); GLUCOSE 186 mg/dL (75-110); POTASSIUM 4.8 mmol/L (3.6-5.0)
[2018-12-03 12:32] VITALS: BP 157/98
--- NOTE | 2018-12-03 13:23 | PDOC DISCHARGE SUMMARY ---
Impression - Admit/DC Date/PCP Admission Date/Primary Care Provider: 12/01/18 15:07 LYNNE OLMEDO Discharge Date: 12/03/18 - Discharge Diagnosis (1) Acute on chronic pancreatitis Is this a current diagnosis for this admission?: Yes (2) Common bile duct dilatation Is this a current diagnosis for this admission?: Yes (3) Hypertensive urgency Is this a current diagnosis for this admission?: Yes (4) IDDM (insulin dependent diabetes mellitus) Is this a current diagnosis for this admission?: Yes (5) Transaminitis Is this a current diagnosis for this admission?: Yes - Assessment Summary: 30-year-old female with a history of insulin-dependent diabetes mellitus, chronic pancreatitis secondary to alcohol abuse, presented with complaints of nausea and severe abdominal pain. Upon admission, patient's lipase level was significantly elevated more than usual. CT scan showed evidence of chronic pancreatitis. AST was elevated in the 1999s which is new from before. Direct bilirubin was minimally elevated at 0.6. Abdominal ultrasound was obtained for evaluation of transaminitis and suspected pancreatitis. The abdominal ultrasound showed new finding of common bile duct dilation of 9 mm however no gallstones were visualized in the bile ducts nor in the gallbladder. Patient was given aggressive IV fluid hydration and placed on IV pain medication for acute on chronic pancreatitis. Patient symptoms significantly improved and abdominal pain improved significantly. Her AST levels reduced to the 300s. Bilirubin normalized. Given the uncertainty of true gallstone pancreatitis in the absence of visualized gallstones and resolution of symptoms and transaminitis, despite the presence of common bile duct dilation patient was planned for discharge without any need for surgical consultation. Patient was asked to follow-up with her GI doctor for potential ERCP for further evaluation of the common bile duct dilation to look for periampullary obstruction. In this admission patient was also diagnosed with iron deficiency anemia and placed on iron supplements. She had an RONIT which responded to IV fluids. - Additional Information Resuscitation Status: Full Code Discharge Diet: Diabetic, Other (Comments) Discharge Activity: Activity As Tolerated Referrals: RONALD BARKER FNP-C [Primary Care Provider] - (Please make an appointment with your primary care provider within 7 days for referral to your assistant health educator ) Prescriptions: Ferrous Sulfate 325 mg PO Q2DAYS #30 tablet. Metoclopramide HCl [Metoclopramide HCl Odt] 10 mg PO Q8HP PRN #14 tab.rapdis PRN Reason: Ketorolac Tromethamine [Toradol 10 mg Tablet] 10 mg PO BID PRN #10 tablet PRN Reason: For Pain Home Medications: Amlodipine Besylate [Norvasc 10 mg Tablet] 10 mg PO DAILY 12/01/18 Gabapentin [Neurontin 300 mg Capsule] 300 mg PO Q12 12/01/18 Insulin Aspart [Novolog Flexpen] 0 unit SUBCUT .SLD SCALE 12/01/18 Insulin Glargine,Hum.rec.anlog [Lantus Insulin 100 Unit/1 ml 10 ml] 40 unit SUBCUT DAILY 12/01/18 Lisinopril [Prinivil 10 mg Tablet] 10 mg PO DAILY 12/01/18 Metoprolol Tartrate [Lopressor 50 mg Tablet] 50 mg PO Q12 12/01/18 Ferrous Sulfate 325 mg PO Q2DAYS #30 tablet. 12/03/18 Ketorolac Tromethamine [Toradol 10 mg Tablet] 10 mg PO BID PRN #10 tablet 12/03/18 Metoclopramide HCl [Metoclopramide HCl Odt] 10 mg PO Q8HP PRN #14 tab.rapdis 12/03/18 History of Present Illiness History of Present Illness: JJ HOFFMAN is a 38 year old female with a history of type 1 diabetes mellitus, kidney disease, COPD, hypertension, and chronic alcoholic pancreatitis, was brought in by patient sister to the emergency department with complaints of abdominal pain. Of note, patient ER DrDaisy, patient was initially altered and very drowsy and hard to arouse. However this resolved when we attempted to get IV line in. Patient currently fully awake and alert. Patient states that she really developed epigastric pain this morning. At that time she checked her blood sugar and it was 70. Given escalation of the pain to a scale of 9 out of 10 and associated nausea without vomiting patient decided come to the emergency room for help. Patient states that is similar to her prior e pisodes of pancreatitis. Patient states that she has had pancreatitis for several years initially diagnosed to be due to alcoholism but has not drank alcohol in several years. She does endorse history of prior alcohol abuse drinking several pints of vodka a day but not in several years. Patient denies any fever, chills, chest pain shortness of breath, headaches, lightheadedness, dizziness. Patient denies any drug use besides using marijuana to try to soothe her pain. Patient states that she has an appointment with an outpatient GI doctor but has been able to make it. Patient states that she took her blood pressure medications today. Physical Exam Vital Signs: Temp Pulse Resp BP Pulse Ox 98.2 F 81 17 157/98 H 99 12/03/18 12:56 12/03/18 12:56 12/03/18 12:56 12/03/18 12:56 12/03/18 12:56 Intake & Output 12/02/18 12/03/18 12/04/18 06:59 06:59 06:59 Intake Total 2355 2439 1999 Balance 2355 2439 1999 Weight 58.5 kg 58.4 kg General appearance: PRESENT: no acute distress, cooperative Eye exam: PRESENT: EOMI Mouth exam: PRESENT: moist Neck exam: ABSENT: JVD Respiratory exam: PRESENT: clear to auscultation teddy Cardiovascular exam: PRESENT: RRR, +S1, +S2 GI/Abdominal exam: PRESENT: normal bowel sounds, soft, tenderness. ABSENT: distended, firm, rebound, rigid Rectal exam: PRESENT: deferred Gentrourinary exam: ABSENT: ecchymosis Musculoskeletal exam: PRESENT: ambulatory Neurological exam: PRESENT: alert, awake, oriented to person, oriented to place, oriented to time, oriented to situation Psychiatric exam: PRESENT: normal mood Results Laboratory Results: WBC 5.7 10^3/uL (4.0-10.5) 12/03/18 04:32 RBC 2.99 10^6/uL (3.72-5.28) L 12/03/18 04:32 Hgb 8.7 g/dL (12.0-15.5) L 12/03/18 04:32 Hct 26.4 % (36.0-47.0) L 12/03/18 04:32 MCV 88 fl (80-97) 12/03/18 04:32 MCH 29.1 pg (27.0-33.4) 12/03/18 04:32 MCHC 32.9 g/dL (32.0-36.0) 12/03/18 04:32 RDW 15.7 % (11.5-14.0) H 12/03/18 04:32 Plt Count 249 10^3/uL (150-450) 12/03/18 04:32 Lymph % (Auto) Not Reportable 12/03/18 04:32 [place] % (Auto) Not Reportable 12/03/18 04:32 Eos % (Auto) Not Reportable 12/03/18 04:32 Baso % (Auto) Not Reportable 12/03/18 04:32 Reticulocyte # 0.040 10^6/uL (0.028-0.122) 12/03/18 04:32 Absolute Neuts (auto) Not Reportable 12/03/18 04:32 Absolute Lymphs (auto) Not Reportable 12/03/18 04:32 Absolute Monos (auto) Not Reportable 12/03/18 04:32 Absolute Eos (auto) Not Reportable 12/03/18 04:32 Absolute Basos (auto) Not Reportable 12/03/18 04:32 Total Counted 100 12/03/18 04:32 Seg Neutrophils % Not Reportable 12/03/18 04:32 Seg Neuts % (Manual) 48 % (42-78) 12/03/18 04:32 Band Neutrophils % 2 % (3-5) L 12/03/18 04:32 Lymphocytes % (Manual) 38 % (13-45) 12/03/18 04:32 Atypical Lymphs % 3 % (0) 12/03/18 04:32 Monocytes % (Manual) 8 % (3-13) 12/03/18 04:32 Eosinophils % (Manual) 1 % (0-6) 12/03/18 04:32 Basophils % (Manual) 0 % (0-2) 12/03/18 04:32 Abs Neuts (Manual) 2.9 10^3/uL (1.7-8.2) 12/03/18 04:32 Abs Lymphs (Manual) 2.3 10^3/uL (0.5-4.7) 12/03/18 04:32 Abs Monocytes (Manual) 0.5 10^3/uL (0.1-1.4) 12/03/18 04:32 Absolute Eos (Manual) 0.1 10^3/uL (0.0-0.6) 12/03/18 04:32 Abs Basophils (Manual) 0.0 10^3/uL (0.0-0.2) 12/03/18 04:32 Platelet Comment ADEQUATE 12/03/18 04:32 Hypochromasia 1+ 12/03/18 04:32 Anisocytosis SLIGHT 12/03/18 04:32 Retic Count (auto) 1.35 % (0.66-2.85) 12/03/18 04:32 Sodium 140.4 mmol/L (137-145) 12/03/18 11:58 Potassium 4.8 mmol/L (3.6-5.0) 12/03/18 11:58 Chloride 110 mmol/L (98-107) H 12/03/18 11:58 Carbon Dioxide 23 mmol/L (22-30) 12/03/18 11:58 Anion Gap 7 (5-19) 12/03/18 11:58 BUN 20 mg/dL (7-20) 12/03/18 11:58 Creatinine 1.34 mg/dL (0.52-1.25) H 12/03/18 11:58 Est GFR ( Amer) 54 (>60) L 12/03/18 11:58 Est GFR (MDRD) Non-Af 44 (>60) L 12/03/18 11:58 Glucose 186 mg/dL (75-110) H 12/03/18 11:58 POC Glucose 223 mg/dL (70-110) H 12/03/18 11:15 Calcium 8.7 mg/dL (8.4-10.2) 12/03/18 11:58 Magnesium 2.1 mg/dL (1.6-2.3) 12/02/18 04:53 Iron 32.4 ug/dL (37-170) L 12/03/18 04:32 TIBC 336 ug/dL (250-450) 12/03/18 04:32 % Saturation 10 % 12/03/18 04:32 Ferritin 26.40 ng/mL (6.2-137.0) 12/03/18 04:32 Total Bilirubin 0.2 mg/dL (0.2-1.3) 12/03/18 04:32 Direct Bilirubin 0.2 mg/dL (0.0-0.4) 12/03/18 04:32 Neonat Total Bilirubin Not Reportable 12/03/18 04:32 Neonat Direct Bilirubin Not Reportable 12/03/18 04:32 Neonat Indirect Bili Not Reportable 12/03/18 04:32 AST 395 U/L (14-36) H 12/03/18 04:32 ALT 504 U/L (<35) 12/03/18 04:32 Alkaline Phosphatase 238 U/L (38-126) H 12/03/18 04:32 Creatine Kinase 106 U/L (30-135) 12/01/18 10:44 CK-MB (CK-2) 1.04 ng/mL (<4.55) 12/01/18 10:44 Troponin I < 0.012 ng/mL 12/01/18 10:44 Total Protein 6.0 g/dL (6.3-8.2) L 12/03/18 04:32 Albumin 3.2 g/dL (3.5-5.0) L 12/03/18 04:32 Amylase 337 U/L (30-110) H 12/01/18 10:44 Lipase 4498.4 U/L (23-300) H 12/01/18 10:44 Vitamin B12 802.0 pg/mL (239-931) 12/03/18 04:32 Folate 15.00 ng/mL (>2.76) 12/03/18 04:32 TSH 0.69 uIU/mL (0.47-4.68) 12/01/18 10:44 Urine Color YELLOW 12/01/18 11:36 Urine Appearance SLIGHTLY-CLOUDY 12/01/18 11:36 Urine pH 6.0 (5.0-9.0) 12/01/18 11:36 Ur Specific [place] 1.012 12/01/18 11:36 Urine Protein >=500 mg/dL (NEGATIVE) H 12/01/18 11:36 Urine Glucose (UA) NEGATIVE mg/dL (NEGATIVE) 12/01/18 11:36 Urine Ketones NEGATIVE mg/dL (NEGATIVE) 12/01/18 11:36 Urine Blood SMALL (NEGATIVE) H 12/01/18 11:36 Urine Nitrite NEGATIVE (NEGATIVE) 12/01/18 11:36 Urine Bilirubin NEGATIVE (NEGATIVE) 12/01/18 11:36 Urine Urobilinogen NEGATIVE mg/dL (<2.0) 12/01/18 11:36 Ur Leukocyte Esterase NEGATIVE (NEGATIVE) 12/01/18 11:36 Urine WBC (Auto) 1 /HPF 12/01/18 11:36 Urine RBC (Auto) 2 /HPF 12/01/18 11:36 U Hyaline Cast (Auto) 1 /LPF 12/01/18 11:36 Urine Bacteria (Auto) 1+ /HPF 12/01/18 11:36 Squamous Epi Cells Auto 3 /HPF 12/01/18 11:36 Urine Mucus (Auto) RARE /LPF 12/01/18 11:36 Urine Ascorbic Acid NEGATIVE (NEGATIVE) 12/01/18 11:36 Urine HCG, Qual NEGATIVE (NEGATIVE) 12/01/18 11:36 Urine Opiates Screen NEGATIVE 12/01/18 11:36 Urine Methadone Screen NEGATIVE 12/01/18 11:36 Ur Barbiturates Screen NEGATIVE 12/01/18 11:36 Ur Phencyclidine Scrn NEGATIVE 12/01/18 11:36 Ur Amphetamines Screen NEGATIVE 12/01/18 11:36 U Benzodiazepines Scrn NEGATIVE 12/01/18 11:36 Urine Cocaine Screen NEGATIVE 12/01/18 11:36 U Marijuana (THC) Screen UNCONFIRMED POSITIVE 12/01/18 11:36 Serum Alcohol < 10 mg/dL (NONE DETECTED) 12/01/18 10:44 12/01/18 10:44 CK-MB (CK-2) 1.04 Troponin I < 0.012 Impressions: Abdomen Ultrasound 12/01/18 00:00 IMPRESSION: Dilated common bile duct at 9.5 mm. Normal gallbladder. Liver is unremarkable. Pancreas is not seen. Abdomen/Pelvis CT 12/01/18 10:52 IMPRESSION: 1. No evidence of an acute on chronic pancreatitis. 2. Unchanged biliary ductal dilatation as detailed above. If there is concern for biliary pathology based on elevation of the serum alkaline phosphatase or bilirubin correlation with ultrasound is recommended. Chest X-Ray 12/01/18 10:52 IMPRESSION: No acute cardiopulmonary process. Head CT 12/01/18 10:52 IMPRESSION: No acute intracranial abnormality. EVIDENCE OF ACUTE STROKE: NO. Stroke Is this a Stroke Patient?: No Acute Heart Failure - Is this a Heart Failure Patient?: No
== END 2018-12-03 14:10 | disposition home or self-care (01) | DRG 439 ==
LOC: ER 10:34 → EH 15:07 → OBSVTOIN 15:07 → 5 16:57
PROVIDERS: ADMIT Internal Medicine; ATTEND Internal Medicine
DX: K85.20 Alcohol induced acute pancreatitis without necrosis or infection (principal); N17.9 Acute kidney failure, unspecified; K86.0 Alcohol-induced chronic pancreatitis; I16.0 Hypertensive urgency; E78.00 Pure hypercholesterolemia, unspecified; J44.9 Chronic obstructive pulmonary disease, unspecified; I12.9 Hypertensive chronic kidney disease with stage 1 through stage 4 chronic kidney disease, or unspecified chronic kidney disease; N18.9 Chronic kidney disease, unspecified; D50.9 Iron deficiency anemia, unspecified; E10.22 Type 1 diabetes mellitus with diabetic chronic kidney disease; K83.8 Other specified diseases of biliary tract; R74.0 Nonspecific elevation of levels of transaminase and lactic acid dehydrogenase [LDH]; R41.82 Altered mental status, unspecified; Z79.4 Long term (current) use of insulin; Z79.899 Other long term (current) drug therapy
CPT/HCPCS: 36415; 70450; 71045; 74177; 76705; 80053; 80307; 81001; 81025; 82150; 82550; 82553; 82607; 82728; 82746; 82962; 83540; 83550; 83690; 83735; 84443; 84484; 85025; 85045; 93976; 96361; 96374; 96375; 99291; J0360; J1170; J1650; J1815; J1885; J2405; J2765; J3490; J7030

== ENCOUNTER 2018-12-08 10:02 | Inpatient (IN) | payer MEDICAID ==
[2018-12-08] MEDS ORDERED: ONDANSETRON 4 MG TAB.RAPDIS PO ONE (10:28)
--- NOTE | 2018-12-08 10:28 | ER Document Report ---
ED Medical Screen (RME) - General Mode of Arrival: Ambulatory Information source: Patient TRAVEL OUTSIDE OF THE [place] IN LAST 30 DAYS: No <MANUELITO WELLS - Last Filed: 12/08/18 10:24> - General Mode of Arrival: Ambulatory Information source: Patient - HPI Patient complains to provider of: abd pain Onset: This morning - Pt. has h/o pancreatitis and states she started with mid abdominal pain earlier this am. She has had some nausea with vomiting times 1 but no diarrhea. States she "used to be an alcoholic" but no longer drinks ETOH. <FARIDA DUNAWAY - Last Filed: 12/08/18 12:21> - General Chief Complaint: Abdominal Pain Stated Complaint: ABDOMINAL PAIN, NAUSEA Time Seen by Provider: 12/08/18 10:24 Primary Care Provider: RONALD BARKER FNP-C [Primary Care Provider] - Follow up as needed Notes: 38-year-old female presents to ED for complaint of upper abdominal pain times about an hour or so. She states she has some nausea but no vomiting she denies any diarrhea. She states her pain is aching and throbbing. States the pain is a 5/5. Patient states she has chronic pancreatitis diabetes COPD and kidney disease. She smokes marijuana occasionally she states she smokes 3 cigarettes a day and does not drink. She states she was a drinker but quit about 8 years ago. She states she just started having the pancreatitis about a year ago but they told her it was from the previous drinking. I have greeted and performed a rapid initial assessment of this patient. A comprehensive ED assessment and evaluation of the patient, analysis of test results and completion of medical decision making process will be conducted by an additional ED providers. (MANUELITO WELLS) - Related Data Allergies/Adverse Reactions: hydrocodone [From [place]] Allergy (Verified 10/29/18 13:23) morphine Allergy (Verified 10/29/18 13:23) Past Medical History - Past Medical History Cardiac Medical History: Reports: Hx Hypercholesterolemia, Hx Hypertension Denies: Hx Congestive Heart Failure, Hx Heart Attack Pulmonary Medical History: Reports: Hx COPD Denies: Hx Asthma Neurological Medical History: Reports: Hx Seizures. Denies: Hx Migraine Endocrine Medical History: Reports: Hx Diabetes Mellitus Type 1, Hx Diabetes Mellitus Type 2. Denies: Hx Hyperthyroidism, Hx Hypothyroidism Renal/ Medical History: Reports: Hx Renal Insufficiency. Denies: Hx End Stage Renal Disease, Hx Peritoneal Dialysis GI Medical History: Reports: Hx Pancreatitis. Denies: Hx Gastroesophageal Reflux Disease, Hx Hepatitis, Hx Hiatal Hernia Musculoskeltal Medical History: Denies Hx Arthritis Skin Medical History: Psychiatric Medical History: Denies: Hx Dementia, Hx Depression Infectious Medical History: Denies: Hx Hepatitis Past Surgical History: Reports: Hx Section - x3, Hx Hysterectomy <MANUELITO WELLS - Last Filed: 12/08/18 10:24> - General Information source: Patient - Social History Cigarette use (# per day): Yes Chew tobacco use (# tins/day): No Frequency of alcohol use: None Family history: None <FARIDA DUNAWAY - Last Filed: 12/08/18 12:21> Review of Systems - Review of Systems Constitutional: No symptoms reported EENT: No symptoms reported Cardiovascular: No symptoms reported Respiratory: No symptoms reported Gastrointestinal: See HPI, Abdominal pain, Nausea, Vomiting. denies: Diarrhea Musculoskeletal: No symptoms reported Neurological/Psychological: No symptoms reported -: Yes All other systems reviewed and negative <FARIDA DUNAWAY - Last Filed: 12/08/18 12:21> Physical Exam - General General appearance: Appears well, Alert In distress: Moderate - HEENT Pupils: PERRL Mouth/Lips: Normal Mucous membranes: Normal Pharynx: Normal Neck: Normal - Respiratory Respiratory status: No respiratory distress Breath sounds: Normal - Cardiovascular Rhythm: Regular Heart sounds: Normal auscultation - Abdominal Inspection: Normal Distension: No distension Bowel sounds: Normal Tenderness: Tender - there is min TTP diffusely without peritoneal signs; BS+ Organomegaly: No organomegaly <FARIDA DUNAWAY - Last Filed: 12/08/18 12:21> - Vital signs Vitals: Temp Pulse Resp BP Pulse Ox 98.2 F 98 20 142/99 H 100 12/08/18 10:21 12/08/18 10:21 12/08/18 10:21 12/08/18 10:21 12/08/18 10:21 Course - Vital Signs Vital signs: Temp Pulse Resp BP Pulse Ox 98.2 F 98 20 142/99 H 100 12/08/18 10:21 12/08/18 10:21 12/08/18 10:21 12/08/18 10:21 12/08/18 10:21 - Laboratory Laboratory results interpreted by me: 12/08/18 10:32 Urine Protein >=500 H Urine Glucose (UA) >=500 H Urine Blood SMALL H Doctor's Discharge <MANUELITO WELLS - Last Filed: 12/08/18 10:24> <FARIDA DUNAWAY - Last Filed: 12/08/18 12:21> - Discharge Referrals: RONALD BRAKER FNP-C [Primary Care Provider] - Follow up as needed
[2018-12-08 11:04] LABS: APPEARANCE,URINE CLEAR; BILIRUBIN,URINE NEGATIVE (NEGATIVE); COLOR,URINE STRAW; GLUCOSE, URINE >=500 mg/dL (NEGATIVE); KETONES,URINE NEGATIVE (NEGATIVE); PROTEIN,URINE >=500 mg/dL (NEGATIVE); URINE SPECIFIC GRAVITY 1.013; UROBILINOGEN,URINE NEGATIVE mg/dL (<2.0)
[2018-12-08] MEDS ORDERED: HYDROMORPHONE HCL INJ/PF 2 MG/ML AMPULE IM ONE (12:13)
[2018-12-08] MEDS ORDERED: HYDROMORPHONE HCL INJ/PF 2 MG/ML AMPULE IV ONE ×3 (13:56→18:30)
[2018-12-08 14:14] LABS: ABSOLUTE BASOPHILS # (AUTO) 0.1 10^3/uL (0.0-0.2); ABSOLUTE EOSINOPHILS # (AUTO) 0.2 10^3/uL (0.0-0.6); ABSOLUTE LYMPHOCYTES (AUTO) 3.4 10^3/uL (0.5-4.7); ABSOLUTE MONOCYTES (AUTO) 0.7 10^3/uL (0.1-1.4); BASOPHILS % (AUTO) 0.7 % (0-2); EOSINOPHILS % (AUTO) 1.9 % (0-6); HEMATOCRIT 34.3 % (36.0-47.0); HEMOGLOBIN 11.5 g/dL (12.0-15.5); LYMPHOCYTES % (AUTO) 33.3 % (13-45); MEAN CORPUSCULAR HEMOGLOBIN 29.4 pg (27.0-33.4); MEAN CORPUSCULAR HGB CONC 33.5 g/dL (32.0-36.0); MEAN CORPUSCULAR VOLUME 88 fl (80-97); MONOCYTES % (AUTO) 6.3 % (3-13); PLATELET COUNT 381 10^3/uL (150-450); RED BLOOD COUNT 3.91 10^6/uL (3.72-5.28); RED CELL DISTRIBUTION WIDTH 15.7 % (11.5-14.0); SEGMENTED NEUTROPHILS % (AUTO) 57.8 % (42-78); TOTAL CELLS COUNTED % (AUTO) 100 %; WHITE BLOOD COUNT 10.3 10^3/uL (4.0-10.5)
[2018-12-08 14:36] LABS: ALBUMIN 4.7 g/dL (3.5-5.0); ALKALINE PHOSPHATASE 278 U/L (38-126); ANION GAP 13 (5-19); ASPARTATE AMINO TRANSFERASE 37 U/L (14-36); BILIRUBIN,DIRECT 0.2 mg/dL (0.0-0.4); BILIRUBIN,TOTAL 0.5 mg/dL (0.2-1.3); BLOOD UREA NITROGEN 24 mg/dL (7-20); CARBON DIOXIDE 24 mmol/L (22-30); CHLORIDE 100 mmol/L (98-107); GLUCOSE 245 mg/dL (75-110); POTASSIUM 3.7 mmol/L (3.6-5.0); TOTAL PROTEIN 8.2 g/dL (6.3-8.2)
[2018-12-08] MEDS ORDERED: ONDANSETRON HCL INJ/PF 4 MG/2 ML SDV IV ONE (15:17)
[2018-12-08] MEDS ORDERED: LABETALOL HCL INJ 20 MG/4 ML DISP.SYRIN IV ONE (15:17)
[2018-12-08] MEDS ORDERED: CLONIDINE HCL 0.2 MG TABLET PO ONE (15:36)
--- NOTE | 2018-12-08 15:40 | ER Document Report ---
ED GI/ - General Chief Complaint: Abdominal Pain Stated Complaint: ABDOMINAL PAIN, NAUSEA Time Seen by Provider: 12/08/18 10:24 Primary Care Provider: RONALD BARKER FNP-C [Primary Care Provider] - Follow up as needed Mode of Arrival: Ambulatory Information source: Patient TRAVEL OUTSIDE OF THE [place] IN LAST 30 DAYS: No - HPI Patient complains to provider of: Abdominal pain - pt with h/o pancreatitis with c/o abdominal pain starting earlier today. Plus N/ vomiting times 1 - Related Data Allergies/Adverse Reactions: hydrocodone [From [place]] Allergy (Verified 10/29/18 13:23) morphine Allergy (Verified 10/29/18 13:23) Past Medical History - General Information source: Patient - Social History Smoking Status: Current Every Day Smoker Cigarette use (# per day): Yes Chew tobacco use (# tins/day): No Frequency of alcohol use: None Drug Abuse: Marijuana Family History: Reviewed & Not Pertinent, DM, Hypertension Patient has suicidal ideation: No Patient has homicidal ideation: No - Past Medical History Cardiac Medical History: Reports: Hx Hypercholesterolemia, Hx Hypertension Denies: Hx Congestive Heart Failure, Hx Heart Attack Pulmonary Medical History: Reports: Hx COPD Denies: Hx Asthma Neurological Medical History: Reports: Hx Seizures. Denies: Hx Migraine Endocrine Medical History: Reports: Hx Diabetes Mellitus Type 1, Hx Diabetes Mellitus Type 2. Denies: Hx Hyperthyroidism, Hx Hypothyroidism Renal/ Medical History: Reports: Hx Renal Insufficiency. Denies: Hx End Stage Renal Disease, Hx Peritoneal Dialysis GI Medical History: Reports: Hx Pancreatitis. Denies: Hx Gastroesophageal Reflux Disease, Hx Hepatitis, Hx Hiatal Hernia Musculoskeletal Medical History: Denies Hx Arthritis Skin Medical History: Psychiatric Medical History: Denies: Hx Dementia, Hx Depression Infectious Medical History: Denies: Hx Hepatitis Past Surgical History: Reports: Hx Section - x3, Hx Hysterectomy Review of Systems - Review of Systems Constitutional: No symptoms reported EENT: No symptoms reported Cardiovascular: No symptoms reported Respiratory: No symptoms reported Gastrointestinal: See HPI, Abdominal pain, Nausea, Vomiting Musculoskeletal: No symptoms reported Neurological/Psychological: No symptoms reported -: Yes All other systems reviewed and negative Physical Exam - Vital signs Vitals: Temp Pulse Resp BP Pulse Ox 98.2 F 98 20 142/99 H 100 12/08/18 10:21 12/08/18 10:21 12/08/18 10:21 12/08/18 10:21 12/08/18 10:21 - General General appearance: Appears well, Alert In distress: Moderate - HEENT Pharynx: Normal Neck: Normal - Respiratory Respiratory status: No respiratory distress Breath sounds: Normal - Cardiovascular Rhythm: Regular Heart sounds: Normal auscultation Murmur: No - Abdominal Inspection: Normal Distension: No distension Bowel sounds: Normal Tenderness: Tender - min-mod TTP diffusely without peritoneal signs - Extremities General upper extremity: Normal inspection General lower extremity: Normal inspection - Neurological Neuro grossly intact: Yes Cognition: Normal Orientation: AAOx4 Course - Re-evaluation Re-evalutation: 12/08/18 17:27 pt. still writhing in agony after multiple rounds of dilaudid. Her blood pressure has improved after multiple meds to 162/99 but she has just had an episode of hematemesis. I cannot let her go home and will call hospitalist for admission. - Vital Signs Vital signs: Temp Pulse Resp BP Pulse Ox 98.6 F 107 H 20 160/99 H 100 12/08/18 16:47 12/08/18 16:47 12/08/18 16:47 12/08/18 17:12 12/08/18 16:47 - Laboratory Result Diagrams: 12/08/18 13:56 12/08/18 13:56 Laboratory results interpreted by me: 12/08/18 12/08/18 12/08/18 10:32 13:56 13:56 Hgb 11.5 L Hct 34.3 L RDW 15.7 H BUN 24 H Creatinine 1.59 H Est GFR ( Amer) 44 L Est GFR (MDRD) Non-Af 36 L Glucose 245 H AST 37 H Alkaline Phosphatase 278 H Lipase 369.9 H Urine Protein >=500 H Urine Glucose (UA) >=500 H Urine Blood SMALL H Critical Care Note - Critical Care Note Total time excluding time spent on procedures (mins): 30 Discharge - Discharge Clinical Impression: Acute on chronic pancreatitis, Accelerated hypertension Condition: Fair Disposition: ADMITTED OBSERVATION Admitting Provider: Mayur (Hospitalist) Unit Admitted: Medical Floor Referrals: RONALD BARKER FNP-C [Primary Care Provider] - Follow up as needed
[2018-12-08] MEDS ORDERED: KETOROLAC TROMETHAMINE INJ/PF 30 MG/1 ML SDV IV ONE (15:43)
[2018-12-08] MEDS ORDERED: HYDRALAZINE HCL INJ/PF 20 MG/1 ML SDV IV ONE (16:51)
[2018-12-08] MEDS ORDERED: HYDROMORPHONE HCL INJ/PF 2 MG/ML AMPULE ONE ×2 (17:24→17:37)
[2018-12-08] MEDS ORDERED: NORMAL SALINE 1000 ML 1,000 ML IV ONE (17:30)
[2018-12-08] MEDS ORDERED: ONDANSETRON HCL INJ/PF 4 MG/2 ML SDV IV PRN (17:48)
[2018-12-08] MEDS ORDERED: DEXTROSE 50%-WATER 25 GM/50 ML DISP.SYRIN IV PRN ×3 (17:48→17:52)
[2018-12-08] MEDS ORDERED: PROMETHAZINE HCL INJ 25 MG/1 ML VIAL IV PRN (17:48)
[2018-12-08] MEDS ORDERED: GLUCAGON,HUMAN RECOMB 1 MG INJ SUBCUT PRN (17:48)
[2018-12-08] MEDS ORDERED: DEXTROSE 40% GEL 15 GM TUBE PO PRN ×4 (17:48→17:52)
[2018-12-08] MEDS ORDERED: GLUCAGON,HUMAN RECOMB 1 MG INJ IM PRN (17:52)
--- NOTE | 2018-12-08 18:02 | PDOC H&P ---
History of Present Illness Admission Date/PCP: 12/08/18 17:36 LYNNE OLMEDO Patient complains of: Abdominal pain nausea vomiting History of Present Illness: JJ HOFFMAN is a 38 year old female who has a history of chronic pancreatitis presents with an acute exacerbation of pancreatitis. Patient does have a slight hematemesis secondary to multiple vomiting episodes. Patient states this is not new and she has done this in the past. She had no treatment to arrival all in the exact aggravating factor. Past Medical History Cardiac Medical History: Reports: Hyperlipidema, Hypertension Denies: Congestive Heart Failure, Myocardial Infarction Pulmonary Medical History: Reports: Chronic Obstructive Pulmonary Disease (COPD) Denies: Asthma Neurological Medical History: Reports: Seizures Denies: Migraine Endocrine Medical History: Reports: Diabetes Mellitus Type 1, Diabetes Mellitus Type 2 Denies: Hyperthyroidism, Hypothyroidism Renal/ Medical History: Denies: End Stage Renal Disease GI Medical History: Denies: Gastroesophageal Reflux Disease, Hepatitis, Hiatal Hernia Musculoskeltal Medical History: Denies: Arthritis Skin Medical History: Psychiatric Medical History: Denies: Dementia, Depression Hematology: Reports: Anemia Denies: Bleeding Tendencies Past Surgical History Past Surgical History: Reports: Section - x3, Hysterectomy Social History Information Source: Patient Lives with: Family Smoking Status: Current Every Day Smoker Electronic Cigarette use?: No Frequency of Alcohol Use: Occasional Hx Recreational Drug Use: Yes Drugs: Marijuana Hx Prescription Drug Abuse: No - Advance Directive Resuscitation Status: Full Code Family History Family History: DM, Hypertension Parental Family History Reviewed: Yes Children Family History Reviewed: Yes Sibling(s) Family History Reviewed.: Yes Medication/Allergy Home Medications: Amlodipine Besylate [Norvasc 10 mg Tablet] 10 mg PO DAILY 12/01/18 Gabapentin [Neurontin 300 mg Capsule] 300 mg PO Q12 12/01/18 Insulin Aspart [Novolog Flexpen] 0 unit SUBCUT .SLD SCALE 12/01/18 Insulin Glargine,Hum.rec.anlog [Lantus Insulin 100 Unit/1 ml 10 ml] 40 unit SUBCUT DAILY 12/01/18 Lisinopril [Prinivil 10 mg Tablet] 10 mg PO DAILY 12/01/18 Metoprolol Tartrate [Lopressor 50 mg Tablet] 50 mg PO Q12 12/01/18 Ferrous Sulfate 325 mg PO Q2DAYS #30 tablet.dr 12/03/18 Ketorolac Tromethamine [Toradol 10 mg Tablet] 10 mg PO BID PRN #10 tablet 12/03/18 Metoclopramide HCl [Metoclopramide HCl Odt] 10 mg PO Q8HP PRN #14 tab.rapdis 12/03/18 Allergies/Adverse Reactions: hydrocodone [From Eleva] Allergy (Verified 10/29/18 13:23) morphine Allergy (Verified 10/29/18 13:23) Review of Systems Constitutional: ABSENT: chills, fever(s), headache(s), weight gain, weight loss Eyes: ABSENT: visual disturbances Ears: ABSENT: hearing changes Cardiovascular: ABSENT: chest pain, dyspnea on exertion, edema, orthropnea, palpitations Respiratory: ABSENT: cough, hemoptysis Gastrointestinal: PRESENT: abdominal pain, hematemesis, nausea, vomiting. ABSENT: constipation, diarrhea, hematochezia Genitourinary: ABSENT: dysuria, hematuria Musculoskeletal: ABSENT: joint swelling Integumentary: ABSENT: rash, wounds Neurological: ABSENT: abnormal gait, abnormal speech, confusion, dizziness, f ocal weakness, syncope Psychiatric: ABSENT: anxiety, depression, homidical ideation, suicidal ideation Endocrine: ABSENT: cold intolerance, heat intolerance, polydipsia, polyuria Hematologic/Lymphatic: ABSENT: easy bleeding, easy bruising Physical Exam Vital Signs: Temp Pulse Resp BP Pulse Ox 98.6 F 107 H 20 160/99 H 100 12/08/18 16:47 12/08/18 16:47 12/08/18 16:47 12/08/18 17:12 12/08/18 16:47 Intake & Output 12/07/18 12/08/18 12/09/18 06:59 06:59 06:59 Weight 56.2 kg General appearance: PRESENT: no acute distress, well-developed, well-nourished Head exam: PRESENT: atraumatic, normocephalic Eye exam: PRESENT: conjunctiva pink, EOMI, PERRLA. ABSENT: scleral icterus Ear exam: PRESENT: normal external ear exam Mouth exam: PRESENT: moist, tongue midline Neck exam: ABSENT: carotid bruit, JVD, lymphadenopathy, thyromegaly Respiratory exam: PRESENT: clear to auscultation teddy. ABSENT: rales, rhonchi, wheezes Cardiovascular exam: PRESENT: RRR. ABSENT: diastolic murmur, rubs, systolic murmur Pulses: PRESENT: normal dorsalis pedis pul Vascular exam: PRESENT: normal capillary refill GI/Abdominal exam: PRESENT: normal bowel sounds, soft. ABSENT: distended, guarding, mass, organolmegaly, rebound, tenderness Rectal exam: PRESENT: deferred Extremities exam: PRESENT: full ROM. ABSENT: calf tenderness, clubbing, pedal edema Neurological exam: PRESENT: alert, awake, oriented to person, oriented to place, oriented to time, oriented to situation, CN II-XII grossly intact. ABSENT: motor sensory deficit Psychiatric exam: PRESENT: appropriate affect, normal mood. ABSENT: homicidal ideation, suicidal ideation Skin exam: PRESENT: dry, intact, warm. ABSENT: cyanosis, rash Results Laboratory Results: 12/08/18 13:56 12/08/18 13:56 12/08/18 12/08/18 12/08/18 10:32 13:56 13:56 WBC 10.3 RBC 3.91 Hgb 11.5 L Hct 34.3 L MCV 88 MCH 29.4 MCHC 33.5 RDW 15.7 H Plt Count 381 Seg Neutrophils % 57.8 Sodium 137.1 Potassium 3.7 Chloride 100 Carbon Dioxide 24 Anion Gap 13 BUN 24 H Creatinine 1.59 H Est GFR ( Amer) 44 L Glucose 245 H Calcium 10.0 Total Bilirubin 0.5 AST 37 H Alkaline Phosphatase 278 H Total Protein 8.2 Albumin 4.7 Lipase 369.9 H Urine Color STRAW Urine Appearance CLEAR Urine pH 7.0 Ur Specific [place] 1.013 Urine Protein >=500 H Urine Glucose (UA) >=500 H Urine Ketones NEGATIVE Urine Blood SMALL H Urine RBC (Auto) 1 Assessment and Plan - Diagnosis (1) Acute on chronic pancreatitis Is this a current diagnosis for this admission?: Yes Plan: 12/08/2018-admit to IMCU. N.p.o. Normal saline 175 mL an hour. Dilaudid 1 mg IV every 2 hours as needed. Reassess lipase in the a.m. (2) Hypertension Qualifiers: Hypertension type: essential hypertension Qualified Code(s): I10 - Essential (primary) hypertension Is this a current diagnosis for this admission?: Yes Plan: 12/08/2018-this patient is n.p.o. at this time will give hydralazine 10 mg IV every 4 hours as needed systolic blood pressure above 160. (3) DKA, type 2 Is this a current diagnosis for this admission?: Yes Plan: 12/08/2018-patient blood sugar in 300s at this time. Will place patient on sliding scale insulin every 6 hours as patient n.p.o. Will monitor and add D5 to IV fluids as needed. (4) CKD (chronic kidney disease) stage 3, GFR 30-59 ml/min Is this a current diagnosis for this admission?: Yes Plan: 12/08/2018-stable chronic. Will hydrate overnight repeat BMP in a.m. - Time Time Spent with patient: 35 or more minutes - Inpatient Certification Based on my medical assessment, after consideration of the patient's comorbidities, presenting symptoms, or acuity I expect that the services needed warrant INPATIENT care.: Yes I certify that my determination is in accordance with my understanding of Medicare's requirements for reasonable and necessary INPATIENT services [42 CFR 412.3e].: Yes Medical Necessity: Need Close Monitoring Due to Risk of Patient Decompensation, Need for Pain Control, Need for IV Antibiotics
[2018-12-08] MEDS: INSULIN REG, HUMAN 100 UNIT/ML 3 ML VIAL (PYX) SUBCUT SCH (18:36)
[2018-12-08] MEDS: PANTOPRAZOLE SODIUM 40 MG VIAL IV SCH (18:48)
[2018-12-08] MEDS: NORMAL SALINE 1000 ML 1,000 ML IV PRN (18:49)
[2018-12-08] MEDS: HYDROMORPHONE HCL INJ/PF 2 MG/ML AMPULE IV PRN ×2 (20:15→22:29)
[2018-12-08] MEDS ORDERED: PANTOPRAZOLE SODIUM 40 MG VIAL IV SCH (22:00)
[2018-12-09] MEDS: HYDROMORPHONE HCL INJ/PF 2 MG/ML AMPULE IV PRN ×6 (01:01→19:24)
[2018-12-09] MEDS: INSULIN REG, HUMAN 100 UNIT/ML 3 ML VIAL (PYX) SUBCUT SCH ×4 (01:13→17:14)
[2018-12-09] MEDS: NORMAL SALINE 1000 ML 1,000 ML IV PRN ×4 (04:28→19:28)
[2018-12-09] MEDS: PANTOPRAZOLE SODIUM 40 MG VIAL IV SCH ×2 (06:45→17:15)
[2018-12-09] MEDS: DEXTROSE 50%-WATER 25 GM/50 ML DISP.SYRIN IV PRN ×2 (06:55→21:31)
[2018-12-09 06:56] LABS: HEMATOCRIT 31.6 % (36.0-47.0); HEMOGLOBIN 10.4 g/dL (12.0-15.5)
[2018-12-09 06:57] LABS: CHOLESTEROL 252.91 mg/dL (0-200); PHOSPHORUS 4.9 mg/dL (2.5-4.5); TRIGLYCERIDES 95 mg/dL (<150)
[2018-12-09 06:58] LABS: WHITE BLOOD COUNT 13.2 10^3/uL (4.0-10.5)
[2018-12-09 06:59] LABS: MEAN CORPUSCULAR HEMOGLOBIN 28.7 pg (27.0-33.4); MEAN CORPUSCULAR HGB CONC 33.1 g/dL (32.0-36.0); MEAN CORPUSCULAR VOLUME 87 fl (80-97); PLATELET COUNT 334 10^3/uL (150-450); RED BLOOD COUNT 3.64 10^6/uL (3.72-5.28); RED CELL DISTRIBUTION WIDTH 15.8 % (11.5-14.0)
[2018-12-09 07:07] LABS: DIRECT LDL 135 mg/dL (<100)
--- NOTE | 2018-12-09 09:20 | PDOC PROGRESS REPORT ---
Subjective Progress Note for:: 12/09/18 Subjective:: 12/09/2018-improved pain this a.m. Reason For Visit: ACUTE ON CHRONIC PANCREATITIS,HYPERTENSION Physical Exam Vital Signs: Temp Pulse Resp BP Pulse Ox 98.0 F 76 18 135/85 H 100 12/09/18 07:41 12/09/18 07:41 12/09/18 07:41 12/09/18 07:41 12/09/18 07:41 Intake & Output 12/08/18 12/09/18 12/10/18 06:59 06:59 05:59 Intake Total 1999 799 Output Total 0 Balance 1999 Weight 56.9 kg General appearance: PRESENT: no acute distress, well-developed, well-nourished Head exam: PRESENT: atraumatic, normocephalic Eye exam: PRESENT: conjunctiva pink, EOMI, PERRLA. ABSENT: scleral icterus Ear exam: PRESENT: normal external ear exam Mouth exam: PRESENT: moist, tongue midline Neck exam: ABSENT: carotid bruit, JVD, lymphadenopathy, thyromegaly Respiratory exam: PRESENT: clear to auscultation teddy. ABSENT: rales, rhonchi, wheezes Cardiovascular exam: PRESENT: RRR. ABSENT: diastolic murmur, rubs, systolic murmur Pulses: PRESENT: normal dorsalis pedis pul Vascular exam: PRESENT: normal capillary refill GI/Abdominal exam: PRESENT: normal bowel sounds, soft. ABSENT: distended, guarding, mass, organolmegaly, rebound, tenderness Rectal exam: PRESENT: deferred Extremities exam: PRESENT: full ROM. ABSENT: calf tenderness, clubbing, pedal edema Neurological exam: PRESENT: alert, awake, oriented to person, oriented to place, oriented to time, oriented to situation, CN II-XII grossly intact. ABSENT: motor sensory deficit Psychiatric exam: PRESENT: appropriate affect, normal mood. ABSENT: homicidal ideation, suicidal ideation Skin exam: PRESENT: dry, intact, warm. ABSENT: cyanosis, rash Results Laboratory Results: 12/09/18 06:32 12/08/18 13:56 12/08/18 12/08/18 12/08/18 10:32 13:56 13:56 WBC 10.3 RBC 3.91 Hgb 11.5 L Hct 34.3 L MCV 88 MCH 29.4 MCHC 33.5 RDW 15.7 H Plt Count 381 Seg Neutrophils % 57.8 Sodium 137.1 Potassium 3.7 Chloride 100 Carbon Dioxide 24 Anion Gap 13 BUN 24 H Creatinine 1.59 H Est GFR ( Amer) 44 L Glucose 245 H Calcium 10.0 Phosphorus Magnesium Total Bilirubin 0.5 AST 37 H Alkaline Phosphatase 278 H Total Protein 8.2 Albumin 4.7 Triglycerides Cholesterol LDL Cholesterol Direct VLDL Cholesterol HDL Cholesterol Lipase 369.9 H Urine Color STRAW Urine Appearance CLEAR Urine pH 7.0 Ur Specific [place] 1.013 Urine Protein >=500 H Urine Glucose (UA) >=500 H Urine Ketones NEGATIVE Urine Blood SMALL H Urine RBC (Auto) 1 12/09/18 12/09/18 06:32 06:32 WBC 13.2 H RBC 3.64 L Hgb 10.4 L Hct 31.6 L MCV 87 MCH 28.7 MCHC 33.1 RDW 15.8 H Plt Count 334 Seg Neutrophils % Sodium Potassium Chloride Carbon Dioxide Anion Gap BUN Creatinine Est GFR ( Amer) Glucose Calcium Phosphorus 4.9 H Magnesium 1.9 Total Bilirubin AST Alkaline Phosphatase Total Protein Albumin Triglycerides 95 Cholesterol 252.91 H LDL Cholesterol Direct 135 H VLDL Cholesterol 19.0 HDL Cholesterol 72 Lipase 141.2 Urine Color Urine Appearance Urine pH Ur Specific [place] Urine Protein Urine Glucose (UA) Urine Ketones Urine Blood Urine RBC (Auto) Assessment and Plan - Diagnosis (1) Acute on chronic pancreatitis Is this a current diagnosis for this admission?: Yes Plan: 12/08/2018-admit to IMCU. N.p.o. Normal saline 175 mL an hour. Dilaudid 1 mg IV every 2 hours as needed. Reassess lipase in the a.m. 12/09/2018-clear liquid diet. Decrease normal saline to 75 mL an hour. Continue Dilaudid will stretch out from 1 mg every 2 hours to 1 mg every 4 hours. (2) Hypertension Qualifiers: Hypertension type: essential hypertension Qualified Code(s): I10 - Essential (primary) hypertension Is this a current diagnosis for this admission?: Yes Plan: 12/08/2018-this patient is n.p.o. at this time will give hydralazine 10 mg IV every 4 hours as needed systolic blood pressure above 160. 12/09/2018-stable this time continue home medications (3) DKA, type 2 Is this a current diagnosis for this admission?: Yes Plan: 12/08/2018-patient blood sugar in 300s at this time. Will place patient on sliding scale insulin every 6 hours as patient n.p.o. Will monitor and add D5 to IV fluids as needed. 12/09/2018-improved at this time continue sliding scale insulin continue home medications (4) CKD (chronic kidney disease) stage 3, GFR 30-59 ml/min Is this a current diagnosis for this admission?: Yes Plan: 12/08/2018-stable chronic. Will hydrate overnight repeat BMP in a.m. 12/09/2018-chronic stable. - Time Time Spent with patient: 15-24 minutes - Inpatient Certification Based on my medical assessment, after consideration of the patient's comorbidi ties, presenting symptoms, or acuity I expect that the services needed warrant INPATIENT care.: Yes I certify that my determination is in accordance with my understanding of [employer]'s requirements for reasonable and necessary INPATIENT services [42 CFR 412.3e].: Yes Medical Necessity: Need for Pain Control, Need for IV Antibiotics
[2018-12-09] MEDS ORDERED: ENOXAPARIN SODIUM INJ 40 MG/0.4 ML DISP.SYRIN SUBCUT SCH (10:00)
[2018-12-09] MEDS: HYDRALAZINE HCL INJ/PF 20 MG/1 ML SDV IV PRN (12:24)
[2018-12-09] MEDS: METOPROLOL TARTRATE 50 MG TABLET PO SCH (21:49)
[2018-12-09] MEDS ORDERED: HYDROMORPHONE HCL INJ/PF 2 MG/ML AMPULE IV ONE (23:00)
[2018-12-10] MEDS: HYDROMORPHONE HCL INJ/PF 2 MG/ML AMPULE IV PRN ×2 (01:07→05:37)
[2018-12-10] MEDS: INSULIN REG, HUMAN 100 UNIT/ML 3 ML VIAL (PYX) SUBCUT SCH (01:24)
[2018-12-10] MEDS: PANTOPRAZOLE SODIUM 40 MG VIAL IV SCH (05:38)
[2018-12-10] MEDS ORDERED: INSULIN REG, HUMAN 100 UNIT/ML 3 ML VIAL (PYX) SUBCUT SCH (08:00)
[2018-12-10] MEDS: HYDRALAZINE HCL INJ/PF 20 MG/1 ML SDV IV PRN (08:06)
--- NOTE | 2018-12-10 08:28 | PDOC DISCHARGE SUMMARY ---
Impression - Admit/DC Date/PCP Admission Date/Primary Care Provider: 12/08/18 17:48 LYNNE OLMEDO Discharge Date: 12/10/18 - Discharge Diagnosis (1) Acute on chronic pancreatitis Is this a current diagnosis for this admission?: Yes (2) Hypertension Is this a current diagnosis for this admission?: Yes (3) CKD (chronic kidney disease) stage 3, GFR 30-59 ml/min Is this a current diagnosis for this admission?: Yes (4) Type 2 diabetes mellitus Is this a current diagnosis for this admission?: Yes - Additional Information Resuscitation Status: Full Code Discharge Diet: As Tolerated Discharge Activity: Activity As Tolerated Referrals: RONALD BARKER FNP-C [Primary Care Provider] - Follow up as needed Home Medications: Amlodipine Besylate [Norvasc 10 mg Tablet] 10 mg PO DAILY 12/01/18 Gabapentin [Neurontin 300 mg Capsule] 300 mg PO Q12 12/01/18 Insulin Aspart [Novolog Flexpen] 0 unit SUBCUT .SLD SCALE 12/01/18 Insulin Glargine,Hum.rec.anlog [Lantus Insulin 100 Unit/1 ml 10 ml] 40 unit SUBCUT DAILY 12/01/18 Lisinopril [Prinivil 10 mg Tablet] 10 mg PO DAILY 12/01/18 Metoprolol Tartrate [Lopressor 50 mg Tablet] 50 mg PO Q12 12/01/18 Ferrous Sulfate 325 mg PO Q2DAYS #30 tablet. 12/03/18 Metoclopramide HCl [Metoclopramide HCl Odt] 10 mg PO Q8HP PRN 12/08/18 History of Present Illiness History of Present Illness: JJ HOFFMAN is a 38 year old female who has a history of chronic pancreatitis presents with an acute exacerbation of pancreatitis. Patient does have a slight hematemesis secondary to multiple vomiting episodes. Patient states this is not new and she has done this in the past. She had no treatment to arrival all in the exact aggravating factor. Hospital Course Hospital Course: Patient presented to ER with acute on chronic pancreatitis. Patient was placed on IMCU hydrated with normal saline and given IV pain control and Zofran for nausea and vomiting. Over the course of patient's stay patient has prescription return home today. Patient will follow with primary care practitioner within 1 week. Patient's been educated to slowly advance her diet as tolerated. Patient also needs to see her primary care practitioner and get a greater control on her blood sugar readings. Patient is understanding of plan of care. Physical Exam Vital Signs: Temp Pulse Resp BP Pulse Ox 98.1 F 87 17 162/92 H 98 12/10/18 03:33 12/10/18 07:00 12/10/18 03:33 12/10/18 03:33 12/10/18 03:33 Intake & Output 12/09/18 12/10/18 12/11/18 07:59 06:59 06:59 Intake Total Output Total Balance Weight General appearance: PRESENT: no acute distress, well-developed, well-nourished Head exam: PRESENT: atraumatic, normocephalic Eye exam: PRESENT: conjunctiva pink, EOMI, PERRLA. ABSENT: scleral icterus Ear exam: PRESENT: normal external ear exam Mouth exam: PRESENT: moist, tongue midline Neck exam: ABSENT: carotid bruit, JVD, lymphadenopathy, thyromegaly Respiratory exam: PRESENT: clear to auscultation teddy. ABSENT: rales, rhonchi, wheezes Cardiovascular exam: PRESENT: RRR. ABSENT: diastolic murmur, rubs, systolic murmur Pulses: PRESENT: normal dorsalis pedis pul Vascular exam: PRESENT: normal capillary refill GI/Abdominal exam: PRESENT: normal bowel sounds, soft. ABSENT: distended, guarding, mass, organolmegaly, rebound, tenderness Rectal exam: PRESENT: deferred Extremities exam: PRESENT: full ROM. ABSENT: calf tenderness, clubbing, pedal edema Neurological exam: PRESENT: alert, awake, oriented to person, oriented to place, oriented to time, oriented to situation, CN II-XII grossly intact. ABSENT: motor sensory deficit Psychiatric exam: PRESENT: appropriate affect, normal mood. ABSENT: homicidal ideation, suicidal ideation Skin exam: PRESENT: dry, intact, warm. ABSENT: cyanosis, rash Results Laboratory Results: WBC 13.2 10^3/uL (4.0-10.5) H 12/09/18 06:32 RBC 3.64 10^6/uL (3.72-5.28) L 12/09/18 06:32 Hgb 10.4 g/dL (12.0-15.5) L 12/09/18 06:32 Hct 31.6 % (36.0-47.0) L 12/09/18 06:32 MCV 87 fl (80-97) 12/09/18 06:32 MCH 28.7 pg (27.0-33.4) 12/09/18 06:32 MCHC 33.1 g/dL (32.0-36.0) 12/09/18 06:32 RDW 15.8 % (11.5-14.0) H 12/09/18 06:32 Plt Count 334 10^3/uL (150-450) 12/09/18 06:32 Lymph % (Auto) 33.3 % (13-45) 12/08/18 13:56 [place] % (Auto) 6.3 % (3-13) 12/08/18 13:56 Eos % (Auto) 1.9 % (0-6) 12/08/18 13:56 Baso % (Auto) 0.7 % (0-2) 12/08/18 13:56 Absolute Neuts (auto) 6.0 10^3/uL (1.7-8.2) 12/08/18 13:56 Absolute Lymphs (auto) 3.4 10^3/uL (0.5-4.7) 12/08/18 13:56 Absolute Monos (auto) 0.7 10^3/uL (0.1-1.4) 12/08/18 13:56 Absolute Eos (auto) 0.2 10^3/uL (0.0-0.6) 12/08/18 13:56 Absolute Basos (auto) 0.1 10^3/uL (0.0-0.2) 12/08/18 13:56 Seg Neutrophils % 57.8 % (42-78) 12/08/18 13:56 Sodium 137.1 mmol/L (137-145) 12/08/18 13:56 Potassium 3.7 mmol/L (3.6-5.0) 12/08/18 13:56 Chloride 100 mmol/L (98-107) 12/08/18 13:56 Carbon Dioxide 24 mmol/L (22-30) 12/08/18 13:56 Anion Gap 13 (5-19) 12/08/18 13:56 BUN 24 mg/dL (7-20) H 12/08/18 13:56 Creatinine 1.59 mg/dL (0.52-1.25) H 12/08/18 13:56 Est GFR ( Amer) 44 (>60) L 12/08/18 13:56 Est GFR (MDRD) Non-Af 36 (>60) L 12/08/18 13:56 Glucose 245 mg/dL (75-110) H 12/08/18 13:56 POC Glucose 393 mg/dL (70-110) H 12/10/18 07:57 Calcium 10.0 mg/dL (8.4-10.2) 12/08/18 13:56 Phosphorus 4.9 mg/dL (2.5-4.5) H 12/09/18 06:32 Magnesium 1.9 mg/dL (1.6-2.3) 12/09/18 06:32 Total Bilirubin 0.5 mg/dL (0.2-1.3) 12/08/18 13:56 Direct Bilirubin 0.2 mg/dL (0.0-0.4) 12/08/18 13:56 Neonat Total Bilirubin Not Reportable 12/08/18 13:56 Neonat Direct Bilirubin Not Reportable 12/08/18 13:56 Neonat Indirect Bili Not Reportable 12/08/18 13:56 AST 37 U/L (14-36) H 12/08/18 13:56 ALT 130 U/L (<35) 12/08/18 13:56 Alkaline Phosphatase 278 U/L (38-126) H 12/08/18 13:56 Total Protein 8.2 g/dL (6.3-8.2) 12/08/18 13:56 Albumin 4.7 g/dL (3.5-5.0) 12/08/18 13:56 Triglycerides 95 mg/dL (<150) 12/09/18 06:32 Cholesterol 252.91 mg/dL (0-200) H 12/09/18 06:32 LDL Cholesterol Direct 135 mg/dL (<100) H 12/09/18 06:32 VLDL Cholesterol 19.0 mg/dL (10-31) 12/09/18 06:32 HDL Cholesterol 72 mg/dL (>40) 12/09/18 06:32 Lipase 141.2 U/L (23-300) 12/09/18 06:32 Urine Color STRAW 12/08/18 10:32 Urine Appearance CLEAR 12/08/18 10:32 Urine pH 7.0 (5.0-9.0) 12/08/18 10:32 Ur Specific [place] 1.013 12/08/18 10:32 Urine Protein >=500 mg/dL (NEGATIVE) H 12/08/18 10:32 Urine Glucose (UA) >=500 mg/dL (NEGATIVE) H 12/08/18 10:32 Urine Ketones NEGATIVE mg/dL (NEGATIVE) 12/08/18 10:32 Urine Blood SMALL (NEGATIVE) H 12/08/18 10:32 Urine Nitrite (Reflex) NEGATIVE (NEGATIVE) 12/08/18 10:32 Urine Bilirubin NEGATIVE (NEGATIVE) 12/08/18 10:32 Urine Urobilinogen NEGATIVE mg/dL (<2.0) 12/08/18 10:32 Leukocyte Esterase Rfl NEGATIVE (NEGATIVE) 12/08/18 10:32 Urine RBC (Auto) 1 /HPF 12/08/18 10:32 U Hyaline Cast (Auto) 1 /LPF 12/08/18 10:32 Urine Bacteria (Auto) TRACE /HPF 12/08/18 10:32 Urine WBC (Reflex) 1 /HPF 12/08/18 10:32 Squamous Epi Cells Auto 2 /HPF 12/08/18 10:32 Urine Mucus (Auto) RARE /LPF 12/08/18 10:32 Urine Ascorbic Acid NEGATIVE (NEGATIVE) 12/08/18 10:32 POC Gastric Occult Bld POSITIVE (NEGATIVE) 12/08/18 17:17 Plan Time Spent: Greater than 30 Minutes Stroke Is this a Stroke Patient?: No Acute Heart Failure - Is this a Heart Failure Patient?: No
[2018-12-10] MEDS: METOPROLOL TARTRATE 50 MG TABLET PO SCH (09:30)
[2018-12-10] MEDS ORDERED: LISINOPRIL 10 MG TABLET PO SCH (10:00)
[2018-12-10] MEDS ORDERED: AMLODIPINE BESYLATE 10 MG TABLET PO SCH (10:00)
[2018-12-10 10:20] VITALS: BP 165/83
== END 2018-12-10 11:42 | disposition home or self-care (01) | DRG 439 ==
LOC: ER 10:02 → EH 17:36 → OBSVTOIN 17:48 → 3W 22:06
PROVIDERS: ADMIT Hospitalist; ATTEND Hospitalist
DX: K85.80 Other acute pancreatitis without necrosis or infection (principal); K92.0 Hematemesis; E78.5 Hyperlipidemia, unspecified; J44.9 Chronic obstructive pulmonary disease, unspecified; E11.9 Type 2 diabetes mellitus without complications; F17.200 Nicotine dependence, unspecified, uncomplicated; I12.9 Hypertensive chronic kidney disease with stage 1 through stage 4 chronic kidney disease, or unspecified chronic kidney disease; E11.22 Type 2 diabetes mellitus with diabetic chronic kidney disease; N18.3 Chronic kidney disease, stage 3 (moderate); Z83.3 Family history of diabetes mellitus; Z82.49 Family history of ischemic heart disease and other diseases of the circulatory system; Z88.6 Allergy status to analgesic agent; Z79.4 Long term (current) use of insulin
CPT/HCPCS: 36415; 80053; 80061; 81001; 82962; 83690; 83735; 84100; 85025; 85027; 96361; 96372; 96374; 96375; 96376; 99291; C9113; J0360; J1170; J1815; J1885; J2405; J3490; J7030; S0119

== ENCOUNTER 2019-01-09 02:46 | Emergency (ER) | payer MEDICAID ==
[2019-01-09 03:33] LABS: ABSOLUTE BASOPHILS # (AUTO) 0.1 10^3/uL (0.0-0.2); ABSOLUTE EOSINOPHILS # (AUTO) 0.2 10^3/uL (0.0-0.6); ABSOLUTE LYMPHOCYTES (AUTO) 2.3 10^3/uL (0.5-4.7); ABSOLUTE MONOCYTES (AUTO) 0.5 10^3/uL (0.1-1.4); ABSOLUTE NEUT (AUTO) 3.8 10^3/uL (1.7-8.2); BASOPHILS % (AUTO) 1.6 % (0-2); EOSINOPHILS % (AUTO) 2.5 % (0-6); HEMATOCRIT 33.3 % (36.0-47.0); HEMOGLOBIN 10.9 g/dL (12.0-15.5); MEAN CORPUSCULAR HEMOGLOBIN 28.6 pg (27.0-33.4); MEAN CORPUSCULAR HGB CONC 32.7 g/dL (32.0-36.0); MEAN CORPUSCULAR VOLUME 88 fl (80-97); MONOCYTES % (AUTO) 7.4 % (3-13); PLATELET COUNT 323 10^3/uL (150-450); RED CELL DISTRIBUTION WIDTH 15.2 % (11.5-14.0); SEGMENTED NEUTROPHILS % (AUTO) 54.5 % (42-78); TOTAL CELLS COUNTED % (AUTO) 100 %; WHITE BLOOD COUNT 6.9 10^3/uL (4.0-10.5)
[2019-01-09 03:51] LABS: ALBUMIN 3.6 g/dL (3.5-5.0); ALKALINE PHOSPHATASE 143 U/L (38-126); ANION GAP 5 (5-19); ASPARTATE AMINO TRANSFERASE 30 U/L (14-36); BILIRUBIN,DIRECT 0.2 mg/dL (0.0-0.4); BILIRUBIN,TOTAL 0.4 mg/dL (0.2-1.3); BLOOD UREA NITROGEN 18 mg/dL (7-20); CARBON DIOXIDE 25 mmol/L (22-30); CHLORIDE 112 mmol/L (98-107); GLUCOSE 178 mg/dL (75-110); POTASSIUM 4.2 mmol/L (3.6-5.0); TOTAL PROTEIN 6.7 g/dL (6.3-8.2)
[2019-01-09 04:27] LABS: APPEARANCE,URINE SLIGHTLY-CLOUDY; BILIRUBIN,URINE NEGATIVE (NEGATIVE); COLOR,URINE YELLOW; GLUCOSE, URINE >=500 mg/dL (NEGATIVE); KETONES,URINE NEGATIVE (NEGATIVE); LEUKOCYTE ESTERASE,URINE NEGATIVE (NEGATIVE); NITRITE,URINE NEGATIVE (NEGATIVE); PROTEIN,URINE 100 mg/dL (NEGATIVE); URINE SPECIFIC GRAVITY 1.011; UROBILINOGEN,URINE NEGATIVE mg/dL (<2.0)
[2019-01-09] MEDS ORDERED: ONDANSETRON HCL INJ/PF 4 MG/2 ML SDV IV ONE ×2 (04:29→04:30)
[2019-01-09] MEDS ORDERED: NORMAL SALINE 1000 ML 1,000 ML IV ONE ×2 (04:30→04:31)
--- NOTE | 2019-01-09 04:34 | ER Document Report ---
ED General - General Chief Complaint: Abdominal Pain Stated Complaint: ABDOMINAL PAIN Time Seen by Provider: 01/09/19 04:19 Primary Care Provider: RONALD BARKER FNP-C [Primary Care Provider] - Follow up as needed TRAVEL OUTSIDE OF THE [place]S. IN LAST 30 DAYS: No - Related Data Allergies/Adverse Reactions: hydrocodone [From [place]] Allergy (Verified 10/29/18 13:23) morphine Allergy (Verified 10/29/18 13:23) Home Medications: novolog. lantis. metoprolol. lisinopril. amlodipine Past Medical History - Social History Smoking Status: Current Every Day Smoker Chew tobacco use (# tins/day): No Frequency of alcohol use: None Drug Abuse: Marijuana Family History: DM, Hypertension Patient has suicidal ideation: No Patient has homicidal ideation: No - Past Medical History Cardiac Medical History: Reports: Hx Hypercholesterolemia, Hx Hypertension Denies: Hx Congestive Heart Failure, Hx Heart Attack Pulmonary Medical History: Reports: Hx COPD Denies: Hx Asthma Neurological Medical History: Reports: Hx Seizures. Denies: Hx Migraine Endocrine Medical History: Reports: Hx Diabetes Mellitus Type 1, Hx Diabetes M ellitus Type 2. Denies: Hx Hyperthyroidism, Hx Hypothyroidism Renal/ Medical History: Reports: Hx Renal Insufficiency. Denies: Hx End Stage Renal Disease, Hx Peritoneal Dialysis GI Medical History: Reports: Hx Pancreatitis. Denies: Hx Gastroesophageal Reflux Disease, Hx Hepatitis, Hx Hiatal Hernia Musculoskeletal Medical History: Denies Hx Arthritis Skin Medical History: Psychiatric Medical History: Denies: Hx Dementia, Hx Depression Infectious Medical History: Denies: Hx Hepatitis Past Surgical History: Reports: Hx Section - x3, Hx Hysterectomy Physical Exam - Vital signs Vitals: Temp Pulse Resp BP Pulse Ox 98.9 F 81 19 168/92 H 97 01/09/19 02:54 01/09/19 02:54 01/09/19 02:54 01/09/19 02:54 01/09/19 02:54 - Notes Notes: Patient presents emergency department with epigastric abdominal pain going on for the past day and a half. Similar to previous episode of pancreatitis she says some nausea but no vomiting no fever chest pain shortness of breath or diarrhea. That has been decreased. Reports that the pancreatitis in the past was related to alcohol but has not had anything to drink in several years. When well Medical history sniffing for hypertension diabetes and chronic pancreatitis. Social history she smokes no alcohol in years. Has post hysterectomy Medications she says is not in any pancreatic enzymes or pain medicines for chronic pain Review of systems pertinent positives and negatives in HPI otherwise all the systems were reviewed and acutely negative PHYSICIAN EXAM -vital signs are noted triage note and note from triage reviewed GENERAL: Well-appearing, well-nourished and in _no acute distress HEAD: Atraumatic, normocephalic. EYES: Pupils equal round and reactive to light, extraocular movements intact, sclera anicteric, conjunctiva are normal. ENT: nares patent, oropharynx clear without exudates. Moist mucous membranes. NECK: supple without lymphadenopathy LUNGS: Breath sounds clear to auscultation bilaterally and equal. No wheezes rales or rhonchi. HEART: Regular rate and rhythm without murmurs ABDOMEN: Soft, nontender, normoactive bowel sounds. Epigastric tenderness is minimal EXTREMITIES: No deformity, no edema. NEUROLOGICAL: No focal neurological deficits. Moves all extremities spontaneously and on command. PSYCH: Normal mood, normal affect. SKIN: Warm, Dry, normal turgor, no rashes or lesions noted. BACK-nontender in the midline Differential diagnosis includes pancreatitis peptic ulcer gastritis dehydration DKA I reviewed her old chart she was admitted December 08 November 17 and December 01 at was minimally elevated the other 2 times it was markedly elevated Course - Re-evaluation Re-evalutation: 01/09/19 06:35 ED patient started complaining of more pain appears to have more tenderness on exam. Her labs are fairly unremarkable other than her slightly elevated lipase should be given additional dose of narcotics we are waiting for the CT report. We will have Dr. Garcia follow-up on patient - Vital Signs Vital signs: Temp Pulse Resp BP Pulse Ox 98.9 F 81 8 L 183/111 H 97 01/09/19 02:54 01/09/19 02:54 01/09/19 06:10 01/09/19 05:04 01/09/19 04:33 - Laboratory Result Diagrams: 01/09/19 03:16 01/09/19 03:16 Laboratory results interpreted by me: 01/09/19 01/09/19 01/09/19 03:16 03:16 03:55 Hgb 10.9 L Hct 33.3 L RDW 15.2 H Chloride 112 H Creatinine 1.37 H Est GFR ( Amer) 52 L Est GFR (MDRD) Non-Af 43 L Glucose 178 H Alkaline Phosphatase 143 H Lipase 368.5 H Urine Protein 100 H Urine Glucose (UA) >=500 H Urine Blood SMALL H Discharge - Discharge Clinical Impression: Abdominal pain Pancreatitis Qualifiers: Pancreatitis type: other Disposition: OTHER Referrals: RONALD BARKER FNP-C [Primary Care Provider] - Follow up as needed
[2019-01-09] MEDS ORDERED: HYDROMORPHONE HCL INJ/PF 2 MG/ML AMPULE IV ONE (06:36)
--- NOTE | 2019-01-09 06:57 | RADIOLOGY REPORT (SQ) ---
EXAM DESCRIPTION: CT ABDOMEN PELVIS WITH IV CONTRAST COMPLETED DATE/TME: 01/09/2019 04:32 CLINICAL HISTORY: 38 years, Female, Abdominal pain, hx of pancreatitis. creat 1.37 COMPARISON: 12/01/2018 TECHNIQUE: Axial CT images of the abdomen and pelvis were obtained after the administration of IV contrast. Sagittal and coronal reformats were performed. DLP 511 Images stored on PACS. All CT scanners at this facility use dose modulation, iterative reconstruction, and/or weight based dosing when appropriate to reduce radiation dose to as low as reasonably achievable (ALARA). [facility]: Dose Right [facility]: CareDose [facility]: Dose Right [facility]: Teradose 4D [facility]: [employer] LIMITATIONS: None. FINDINGS: The lung bases are clear. The liver, gallbladder, spleen, and adrenal glands appear unremarkable. Again noted are numerous coarse calcifications within the pancreas. The main pancreatic duct remains mildly dilated measuring up to 4 mm in diameter. No definite peripancreatic inflammatory changes. Both kidneys enhance normally. There is no evidence of hydronephrosis. There is no intraperitoneal free air or fluid. There is no lymphadenopathy. The abdominal aorta is normal in caliber. The stomach and small bowel and appendix appear unremarkable. There is a moderate amount of stool within the colon. Hysterectomy. The urinary bladder is unremarkable. There are are no lytic or blastic bone lesions. IMPRESSION: No significant change compared to the prior exam. Findings of chronic pancreatitis with stable mild dilatation of the main pancreatic duct. No definite peripancreatic inflammatory changes. TECHNICAL DOCUMENTATION: Quality ID # [id number]: Final reports with documentation of one or more dose reduction techniques (e.g., Automated exposure control, adjustment of the mA and/or kV according to patient size, use of iterative reconstruction technique) copyright 2010 [place]- All Rights Reserved
[2019-01-09] MEDS ORDERED: DIPHENHYDRAMINE HCL 50 MG/ML VIAL IV ONE (08:42)
[2019-01-09] MEDS ORDERED: METOCLOPRAMIDE HCL INJ/PF 10 MG/2 ML SDV IV ONE (08:42)
[2019-01-09] MEDS ORDERED: HYDRALAZINE HCL INJ/PF 20 MG/1 ML SDV IV ONE (09:29)
[2019-01-09] MEDS ORDERED: ENALAPRILAT DIHYDRATE INJ/PF 1.25 MG/1 ML SDV IV ONE (09:30)
[2019-01-09 11:14] VITALS: BP 182/104
== END 2019-01-09 11:16 | disposition home or self-care (01) ==
LOC: ER 02:46
DX: K85.90 Acute pancreatitis without necrosis or infection, unspecified (principal); R10.9 Unspecified abdominal pain; R11.0 Nausea; F17.200 Nicotine dependence, unspecified, uncomplicated; E78.00 Pure hypercholesterolemia, unspecified; E11.9 Type 2 diabetes mellitus without complications; Z90.710 Acquired absence of both cervix and uterus; Z88.6 Allergy status to analgesic agent
CPT/HCPCS: 99284; 96361; 96374; 96375; 36415; 80307; 83690; 85025; 80053; 81001; 74177; J1200; J0360; J2765; J1170; J2405; J7030; J3490

== ENCOUNTER 2019-01-09 16:32 | Emergency (ER) | payer MEDICAID ==
[2019-01-09] MEDS ORDERED: NORMAL SALINE 1000 ML 1,000 ML IV ONE ×2 (17:34→22:14)
[2019-01-09] MEDS ORDERED: HYDROMORPHONE HCL INJ/PF 2 MG/ML AMPULE IV ONE ×2 (17:34→22:12)
[2019-01-09] MEDS ORDERED: ONDANSETRON HCL INJ/PF 4 MG/2 ML SDV IV ONE (17:35)
--- NOTE | 2019-01-09 18:14 | ER Document Report ---
ED General - General Chief Complaint: Abdominal Pain Stated Complaint: VOMITING Time Seen by Provider: 01/09/19 17:23 Primary Care Provider: RONALD BARKER FNP-C [Primary Care Provider] - Follow up as needed TRAVEL OUTSIDE OF THE [place] IN LAST 30 DAYS: No - HPI Notes: Patient is a 38-year-old female with a known history of chronic pancreatitis and diabetes who presents emergency department for evaluation of abdominal pain. She states that it started in the middle the night. She was seen here earlier and discharged home. She states since then she is been vomiting. She is still urinating. No fevers to her knowledge. Her pain is a 10 out of 10, sharp and stabbing, in the epigastric region with radiation to the back. She states this all feels similar to her pancreatitis pain in the past. - Related Data Allergies/Adverse Reactions: hydrocodone [From [place]] Allergy (Verified 10/29/18 13:23) morphine Allergy (Verified 10/29/18 13:23) Past Medical History - General Information source: Patient - Social History Smoking Status: Current Every Day Smoker Frequency of alcohol use: Occasional Family History: Reviewed & Not Pertinent, DM, Hypertension Patient has suicidal ideation: No Patient has homicidal ideation: No - Past Medical History Cardiac Medical History: Reports: Hx Hypercholesterolemia, Hx Hypertension Denies: Hx Congestive Heart Failure, Hx Heart Attack Pulmonary Medical History: Reports: Hx COPD Denies: Hx Asthma Neurological Medical History: Reports: Hx Seizures. Denies: Hx Migraine Endocrine Medical History: Reports: Hx Diabetes Mellitus Type 1, Hx Diabetes Mellitus Type 2. Denies: Hx Hyperthyroidism, Hx Hypothyroidism Renal/ Medical History: Reports: Hx Renal Insufficiency. Denies: Hx End Stage Renal Disease, Hx Peritoneal Dialysis GI Medical History: Reports: Hx Pancreatitis. Denies: Hx Gastroesophageal Reflux Disease, Hx Hepatitis, Hx Hiatal Hernia Musculoskeletal Medical History: Denies Hx Arthritis Skin Medical History: Psychiatric Medical History: Denies: Hx Dementia, Hx Depression Infectious Medical History: Denies: Hx Hepatitis Past Surgical History: Reports: Hx Section - x3, Hx Hysterectomy Review of Systems - Review of Systems Constitutional: No symptoms reported EENT: No symptoms reported Cardiovascular: No symptoms reported Respiratory: No symptoms reported Gastrointestinal: See HPI Genitourinary: No symptoms reported Female Genitourinary: No symptoms reported Musculoskeletal: No symptoms reported Skin: No symptoms reported Neurological/Psychological: No symptoms reported Physical Exam - Vital signs Vitals: Resp Pulse Ox 23 H 100 01/09/19 16:50 01/09/19 16:50 - Notes Notes: This is a 38-year-old female who appears her stated age. She is a moderate amount of distress, tearful, actively vomiting. Vital signs reviewed, please refer to chart. Head is normocephalic, atraumatic. Pupils equal round, reactive to light. Neck is supple without meningismus. Heart is regular rate and rhythm. Lungs are clear to auscultation bilaterally. Abdomen is soft, non tender, normoactive bowel sounds throughout. Extremities without cyanosis, clubbing. Posterior calves are nontender. Peripheral pulses are equal. Skin is warm and dry. Patient is awake, alert, neurological exam is nonfocal. Course - Re-evaluation Re-evalutation: 01/09/19 18:13 Patient presents emergency department for evaluation of epigastric abdominal pain. Laboratory investigations, fluids, pain medication, antiemetics ordered. She is to stay n.p.o. Will monitor for response. 01/09/19 22:40 Patient still is having pain but she is feeling moderately improved. She is concerned that she is going to vomit enough to go back into DKA. I expand her that I will send her home with Phenergan suppositories. She was given IV fluids, IV Phenergan, Dilaudid here in the emergency department. Her lipase is normal. She does not have a significant leukocytosis. We will send the patient home. She is to return to the ED with worsening. - Vital Signs Vital signs: Temp Pulse Resp BP Pulse Ox 98.0 F 116 H 16 206/128 H 100 01/09/19 17:20 01/09/19 17:20 01/09/19 20:24 01/09/19 20:24 01/09/19 20:24 - Laboratory Result Diagrams: 01/09/19 18:10 01/09/19 18:10 Laboratory results interpreted by me: 01/09/19 01/09/19 01/09/19 18:10 18:10 18:46 Hgb 11.5 L Hct 34.5 L RDW 14.7 H Lymph % (Auto) 10.3 L [place] % (Auto) 2.8 L Seg Neutrophils % 86.3 H Creatinine 1.37 H Est GFR ( Amer) 52 L Est GFR (MDRD) Non-Af 43 L Glucose 301 H Calcium 10.5 H Alkaline Phosphatase 186 H Total Protein 8.5 H Urine Protein 100 H Urine Glucose (UA) >=500 H Urine Ketones 20 H Urine Blood SMALL H Discharge - Discharge Clinical Impression: Hx of pancreatitis, Epigastric abdominal pain Nausea & vomiting Qualifiers: Vomiting type: unspecified Vomiting Intractability: unspecified Qualified Code(s): R11.2 - Nausea with vomiting, unspecified Condition: Stable Disposition: HOME, SELF-CARE Instructions: Abdominal Pain ([facility]), Vomiting ([facility]) Additional Instructions: Clear liquids only. Use Phenergan suppositories for nausea. Follow-up with Dr. Dunham and your primary care provider in 1 to 2 days. Return to the ED with worsening or new concerning symptoms of any sort. Referrals: RONALD BARKER FNP-C [Primary Care Provider] - Follow up as needed
[2019-01-09 18:37] LABS: ABSOLUTE LYMPHOCYTES (AUTO) 0.9 10^3/uL (0.5-4.7); ABSOLUTE MONOCYTES (AUTO) 0.2 10^3/uL (0.1-1.4); ABSOLUTE NEUT (AUTO) 7.4 10^3/uL (1.7-8.2); BASOPHILS % (AUTO) 0.5 % (0-2); EOSINOPHILS % (AUTO) 0.1 % (0-6); HEMATOCRIT 34.5 % (36.0-47.0); HEMOGLOBIN 11.5 g/dL (12.0-15.5); LYMPHOCYTES % (AUTO) 10.3 % (13-45); MEAN CORPUSCULAR HEMOGLOBIN 28.9 pg (27.0-33.4); MEAN CORPUSCULAR HGB CONC 33.2 g/dL (32.0-36.0); MEAN CORPUSCULAR VOLUME 87 fl (80-97); MONOCYTES % (AUTO) 2.8 % (3-13); PLATELET COUNT 349 10^3/uL (150-450); RED BLOOD COUNT 3.97 10^6/uL (3.72-5.28); RED CELL DISTRIBUTION WIDTH 14.7 % (11.5-14.0); SEGMENTED NEUTROPHILS % (AUTO) 86.3 % (42-78); TOTAL CELLS COUNTED % (AUTO) 100 %; WHITE BLOOD COUNT 8.5 10^3/uL (4.0-10.5)
[2019-01-09 18:57] LABS: ALBUMIN 4.8 g/dL (3.5-5.0); ALKALINE PHOSPHATASE 186 U/L (38-126); ANION GAP 14 (5-19); ASPARTATE AMINO TRANSFERASE 29 U/L (14-36); BILIRUBIN,DIRECT 0.3 mg/dL (0.0-0.4); BILIRUBIN,TOTAL 0.6 mg/dL (0.2-1.3); BLOOD UREA NITROGEN 17 mg/dL (7-20); CALCIUM 10.5 mg/dL (8.4-10.2); CARBON DIOXIDE 24 mmol/L (22-30); CHLORIDE 103 mmol/L (98-107); GLUCOSE 301 mg/dL (75-110); POTASSIUM 4.5 mmol/L (3.6-5.0); TOTAL PROTEIN 8.5 g/dL (6.3-8.2)
[2019-01-09 19:11] LABS: APPEARANCE,URINE SLIGHTLY-CLOUDY; BILIRUBIN,URINE NEGATIVE (NEGATIVE); COLOR,URINE STRAW; GLUCOSE, URINE >=500 mg/dL (NEGATIVE); KETONES,URINE 20 mg/dL (NEGATIVE); LEUKOCYTE ESTERASE,URINE NEGATIVE (NEGATIVE); NITRITE,URINE NEGATIVE (NEGATIVE); PROTEIN,URINE 100 mg/dL (NEGATIVE); URINE SPECIFIC GRAVITY 1.013; UROBILINOGEN,URINE NEGATIVE mg/dL (<2.0)
[2019-01-09] MEDS ORDERED: PROMETHAZINE HCL 25 MG SUPP (4 SUPP/ER DISP) PR ONE (22:14)
[2019-01-09] MEDS ORDERED: PROMETHAZINE HCL INJ 25 MG/1 ML VIAL IV ONE (22:14)
[2019-01-09 23:36] VITALS: BP 157/89
== END 2019-01-09 23:37 | disposition home or self-care (01) ==
LOC: ER 16:32
DX: R10.13 Epigastric pain (principal); R11.2 Nausea with vomiting, unspecified; R10.9 Unspecified abdominal pain
CPT/HCPCS: 96376; 99284; 96361; 96374; 96375; 36415; 80307; 83690; 84703; 87070; 81001; J3490; J1170; J2550; J2405; J7030

== ENCOUNTER 2019-01-10 09:13 | Emergency (ER) | payer MEDICAID ==
[2019-01-10 10:33] LABS: ABSOLUTE BASOPHILS # (AUTO) 0.1 10^3/uL (0.0-0.2); ABSOLUTE LYMPHOCYTES (AUTO) 0.9 10^3/uL (0.5-4.7); ABSOLUTE MONOCYTES (AUTO) 0.4 10^3/uL (0.1-1.4); BASOPHILS % (AUTO) 1.4 % (0-2); EOSINOPHILS % (AUTO) 0.1 % (0-6); HEMATOCRIT 32.1 % (36.0-47.0); HEMOGLOBIN 10.6 g/dL (12.0-15.5); LYMPHOCYTES % (AUTO) 9.8 % (13-45); MEAN CORPUSCULAR HGB CONC 33.1 g/dL (32.0-36.0); MEAN CORPUSCULAR VOLUME 88 fl (80-97); MONOCYTES % (AUTO) 4.1 % (3-13); PLATELET COUNT 320 10^3/uL (150-450); RED BLOOD COUNT 3.66 10^6/uL (3.72-5.28); RED CELL DISTRIBUTION WIDTH 14.9 % (11.5-14.0); SEGMENTED NEUTROPHILS % (AUTO) 84.6 % (42-78); TOTAL CELLS COUNTED % (AUTO) 100 %; WHITE BLOOD COUNT 9.4 10^3/uL (4.0-10.5)
[2019-01-10 10:56] LABS: ALBUMIN 4.2 g/dL (3.5-5.0); ALKALINE PHOSPHATASE 154 U/L (38-126); ANION GAP 14 (5-19); ASPARTATE AMINO TRANSFERASE 23 U/L (14-36); BILIRUBIN,DIRECT 0.2 mg/dL (0.0-0.4); BILIRUBIN,TOTAL 0.6 mg/dL (0.2-1.3); BLOOD UREA NITROGEN 18 mg/dL (7-20); CALCIUM 10.1 mg/dL (8.4-10.2); CARBON DIOXIDE 21 mmol/L (22-30); CHLORIDE 105 mmol/L (98-107); GLUCOSE 290 mg/dL (75-110); POTASSIUM 4.6 mmol/L (3.6-5.0); TOTAL PROTEIN 7.3 g/dL (6.3-8.2)
[2019-01-10 12:24] LABS: APPEARANCE,URINE CLEAR; BILIRUBIN,URINE NEGATIVE (NEGATIVE); COLOR,URINE STRAW; GLUCOSE, URINE >=500 mg/dL (NEGATIVE); KETONES,URINE 20 mg/dL (NEGATIVE); LEUKOCYTE ESTERASE,URINE NEGATIVE (NEGATIVE); NITRITE,URINE NEGATIVE (NEGATIVE); PROTEIN,URINE 100 mg/dL (NEGATIVE); URINE SPECIFIC GRAVITY 1.015; UROBILINOGEN,URINE NEGATIVE mg/dL (<2.0)
[2019-01-10] MEDS ORDERED: AMMONIA INHALANTS 10 AMPUL/BOX IH ONE (13:29)
[2019-01-10] MEDS ORDERED: NORMAL SALINE 1000 ML 1,000 ML IV ONE (13:35)
[2019-01-10] MEDS ORDERED: FENTANYL CITRATE INJ/PF 100 MCG/2 ML AMPUL IV ONE (13:52)
--- NOTE | 2019-01-10 14:32 | ER Document Report ---
ED General - General Chief Complaint: Abdominal Pain Stated Complaint: ABDOMINAL PAIN Time Seen by Provider: 01/10/19 13:28 Primary Care Provider: RONALD BARKER FNP-C [Primary Care Provider] - Follow up as needed Notes: 38-year-old female with chronic pancreatitis seen here yesterday for abdominal pain presents to the emergency department with persistent abdominal pain. Patient states that she has had significant pain for the last 3 days and has had 3 visits here in the last 3 days. Patient denies nausea or vomiting this visit but just complains of epigastric grinding pain. Denies fevers or chills, denies shortness of breath or chest pain, denies diarrhea, last bowel movement yesterday. Denies urinary symptoms, denies abnormal vaginal discharge. TRAVEL OUTSIDE OF THE [place] IN LAST 30 DAYS: No - Related Data Allergies/Adverse Reactions: hydrocodone [From [place]] Allergy (Verified 01/10/19 09:33) morphine Allergy (Verified 01/10/19 09:33) Past Medical History - Social History Smoking Status: Never Smoker Chew tobacco use (# tins/day): No Frequency of alcohol use: None Drug Abuse: None Family History: Reviewed & Not Pertinent, DM, Hypertension Patient has suicidal ideation: No Patient has homicidal ideation: No - Past Medical History Cardiac Medical History: Reports: Hx Hypercholesterolemia, Hx Hypertension Denies: Hx Congestive Heart Failure, Hx Heart Attack Pulmonary Medical History: Reports: Hx COPD Denies: Hx Asthma Neurological Medical History: Reports: Hx Seizures. Denies: Hx Migraine Endocrine Medical History: Reports: Hx Diabetes Mellitus Type 1, Hx Diabetes Mellitus Type 2. Denies: Hx Hyperthyroidism, Hx Hypothyroidism Renal/ Medical History: Reports: Hx Renal Insufficiency. Denies: Hx End Stage Renal Disease, Hx Peritoneal Dialysis GI Medical History: Reports: Hx Pancreatitis. Denies: Hx Gastroesophageal Reflux Disease, Hx Hepatitis, Hx Hiatal Hernia Musculoskeletal Medical History: Denies Hx Arthritis Skin Medical History: Psychiatric Medical History: Denies: Hx Dementia, Hx Depression Infectious Medical History: Denies: Hx Hepatitis Past Surgical History: Reports: Hx Section - x3, Hx Hysterectomy Review of Systems - Review of Systems Constitutional: See HPI EENT: No symptoms reported Cardiovascular: See HPI Respiratory: See HPI Gastrointestinal: See HPI Genitourinary: See HPI Female Genitourinary: See HPI Musculoskeletal: No symptoms reported Skin: No symptoms reported Hematologic/Lymphatic: No symptoms reported Neurological/Psychological: No symptoms reported Physical Exam - Vital signs Vitals: Temp Pulse Resp BP Pulse Ox 98.9 F 110 H 22 H 200/99 H 98 01/10/19 09:15 01/10/19 09:15 01/10/19 09:15 01/10/19 09:15 01/10/19 09:15 - Notes Notes: PHYSICAL EXAMINATION: Reviewed vital signs and charting by RN GENERAL: Alert, interacts well. Appears in moderate distress HEAD: Normocephalic, atraumatic. EYES: Pupils equal and round. Extraocular movements intact. ENT: Oral mucosa moist, tongue midline. NECK: Full range of motion. Trachea midline. LUNGS: Clear to auscultation bilaterally, no wheezes, rales, or rhonchi. No respiratory distress. HEART: Regular rate and rhythm. No murmur ABDOMEN: soft, epigastric tenderness to palpation, voluntary guarding. No distention. Bowel sounds present EXTREMITIES: Moves all 4 extremities spontaneously. No edema, No cyanosis. PSYCH: Normal affect, normal mood. SKIN: Warm, dry, normal turgor. No rashes or lesions noted. Course - Re-evaluation Re-evalutation: 01/10/19 14:31 Patient is crying in moderate distress. Serum glucose 290 with persistent abdominal pain. She did get a CT abdomen pelvis yesterday which was unr emarkable other than chronic dilatation of the pancreatic duct. No other pathology noted. All lab work with a stable trend from the last 2-3 visits. Lipase improved from yesterday. I am going to give her fentanyl 50 mcg once and some IV fluids and will reassess. 01/10/19 23:40 Patient states fentanyl did not work. I did give her Dilaudid 0.5 mg IM once and the patient then fell asleep. Resolution of patient's symptoms achieved and she is stable for discharge with strict return precautions. - Vital Signs Vital signs: Temp Pulse Resp BP Pulse Ox 98.4 F 108 H 16 218/124 H 98 01/10/19 18:02 01/10/19 18:02 01/10/19 18:02 01/10/19 18:02 01/10/19 18:02 - Laboratory Result Diagrams: 01/10/19 10:15 12/04/19 10:15 Laboratory results interpreted by me: 01/10/19 01/10/19 01/10/19 10:15 10:15 11:15 RBC 3.66 L Hgb 10.6 L Hct 32.1 L RDW 14.9 H Lymph % (Auto) 9.8 L Seg Neutrophils % 84.6 H Carbon Dioxide 21 L Creatinine 1.53 H Est GFR ( Amer) 46 L Est GFR (MDRD) Non-Af 38 L Glucose 290 H Alkaline Phosphatase 154 H Urine Protein 100 H Urine Glucose (UA) >=500 H Urine Ketones 20 H Urine Blood MODERATE H Discharge - Discharge Clinical Impression: Hyperglycemia Abdominal pain Qualifiers: Abdominal location: epigastric Qualified Code(s): R10.13 - Epigastric pain Condition: Good Disposition: HOME, SELF-CARE Instructions: Abdominal Pain ([facility]) Additional Instructions: You have been seen in the Emergency Department (ED) for abdominal pain. Your evaluation did not identify a clear cause of your symptoms but was generally reassuring. Please follow up with your doctor as soon as possible regarding today's emergent visit and the symptoms that are bothering you. Return to the ED if your abdominal pain worsens or fails to improve, you develop bloody vomiting, bloody diarrhea, you are unable to tolerate fluids due to vomiting, fever greater than 101, or other symptoms that concern you. Referrals: RONALD BARKER FNP-C [Primary Care Provider] - Follow up as needed
[2019-01-10] MEDS ORDERED: HYDROMORPHONE HCL INJ/PF 2 MG/ML AMPULE IV ONE (15:21)
[2019-01-10 18:06] VITALS: BP 218/124
== END 2019-01-10 18:02 | disposition home or self-care (01) ==
LOC: ER 09:13
DX: R10.13 Epigastric pain (principal); R10.816 Epigastric abdominal tenderness; E11.65 Type 2 diabetes mellitus with hyperglycemia; I10 Essential (primary) hypertension; Z87.19 Personal history of other diseases of the digestive system; Z88.6 Allergy status to analgesic agent; Z88.5 Allergy status to narcotic agent
CPT/HCPCS: 99284; 96361; 96374; 96375; 36415; 83690; 85025; 80053; 81001; J3010; J1170; J7030; J3490

== ENCOUNTER 2019-01-14 07:57 | Emergency (ER) | payer MEDICAID ==
[2019-01-14 08:37] LABS: APPEARANCE,URINE CLEAR; BILIRUBIN,URINE NEGATIVE (NEGATIVE); COLOR,URINE STRAW; GLUCOSE, URINE >=500 mg/dL (NEGATIVE); KETONES,URINE NEGATIVE (NEGATIVE); LEUKOCYTE ESTERASE,URINE NEGATIVE (NEGATIVE); NITRITE,URINE NEGATIVE (NEGATIVE); PROTEIN,URINE 100 mg/dL (NEGATIVE); UROBILINOGEN,URINE NEGATIVE mg/dL (<2.0)
[2019-01-14 09:22] LABS: ABSOLUTE LYMPHOCYTES (AUTO) 1.3 10^3/uL (0.5-4.7); ABSOLUTE MONOCYTES (AUTO) 0.4 10^3/uL (0.1-1.4); ABSOLUTE NEUT (AUTO) 5.9 10^3/uL (1.7-8.2); BASOPHILS % (AUTO) 0.6 % (0-2); EOSINOPHILS % (AUTO) 0.3 % (0-6); HEMATOCRIT 33.6 % (36.0-47.0); HEMOGLOBIN 11.2 g/dL (12.0-15.5); LYMPHOCYTES % (AUTO) 16.4 % (13-45); MEAN CORPUSCULAR HGB CONC 33.4 g/dL (32.0-36.0); MEAN CORPUSCULAR VOLUME 87 fl (80-97); MONOCYTES % (AUTO) 5.8 % (3-13); PLATELET COUNT 311 10^3/uL (150-450); RED BLOOD COUNT 3.87 10^6/uL (3.72-5.28); RED CELL DISTRIBUTION WIDTH 14.7 % (11.5-14.0); SEGMENTED NEUTROPHILS % (AUTO) 76.9 % (42-78); TOTAL CELLS COUNTED % (AUTO) 100 %; WHITE BLOOD COUNT 7.7 10^3/uL (4.0-10.5)
[2019-01-14] MEDS ORDERED: ONDANSETRON HCL INJ/PF 4 MG/2 ML SDV IV ONE (09:36)
[2019-01-14] MEDS ORDERED: NORMAL SALINE 1000 ML 1,000 ML IV ONE (09:36)
[2019-01-14] MEDS ORDERED: HYDROMORPHONE HCL INJ/PF 2 MG/ML AMPULE IV ONE (09:37)
[2019-01-14 09:38] LABS: ALBUMIN 4.2 g/dL (3.5-5.0); ALKALINE PHOSPHATASE 145 U/L (38-126); ANION GAP 7 (5-19); ASPARTATE AMINO TRANSFERASE 45 U/L (14-36); BILIRUBIN,DIRECT 0.1 mg/dL (0.0-0.4); BILIRUBIN,TOTAL 0.4 mg/dL (0.2-1.3); BLOOD UREA NITROGEN 20 mg/dL (7-20); CALCIUM 9.7 mg/dL (8.4-10.2); CARBON DIOXIDE 31 mmol/L (22-30); CHLORIDE 103 mmol/L (98-107); GLUCOSE 139 mg/dL (75-110); POTASSIUM 3.4 mmol/L (3.6-5.0); TOTAL PROTEIN 7.5 g/dL (6.3-8.2)
--- NOTE | 2019-01-14 09:40 | ER Document Report ---
ED Medical Screen (RME) - General Chief Complaint: Abdominal Pain Stated Complaint: ABDOMINAL PAIN Time Seen by Provider: 01/14/19 09:21 Primary Care Provider: RONALD BARKER FNP-C [Primary Care Provider] - Follow up as needed Notes: Patient is a 38-year-old female with a history of chronic pancreatitis, hypertension, diabetes who presents the emergency department with a chief complaint of abdominal pain. Patient reports around 2 AM she developed acute abdominal pain to the upper abdomen. Patient reports she has had nausea with 6 episodes of vomiting. Patient denies blood in her vomitus. Patient reports she does have a history of pancreatitis and that this feels the same. Patient denies fever. TRAVEL OUTSIDE OF THE [place] IN LAST 30 DAYS: No - Related Data Allergies/Adverse Reactions: hydrocodone [From [place]] Allergy (Verified 01/14/19 08:06) morphine Allergy (Verified 01/14/19 08:06) Home Medications: lisinopril. metoprolol. amlodipine. lantus. novolog. hydralazine Past Medical History - Social History Chew tobacco use (# tins/day): No Frequency of alcohol use: None Drug Abuse: Marijuana Family history: None - Past Medical History Cardiac Medical History: Reports: Hx Hypercholesterolemia, Hx Hypertension Denies: Hx Congestive Heart Failure, Hx Heart Attack Pulmonary Medical History: Reports: Hx COPD Denies: Hx Asthma Neurological Medical History: Reports: Hx Seizures. Denies: Hx Migraine Endocrine Medical History: Reports: Hx Diabetes Mellitus Type 1, Hx Diabetes Mellitus Type 2. Denies: Hx Hyperthyroidism, Hx Hypothyroidism Renal/ Medical History: Reports: Hx Renal Insufficiency. Denies: Hx End Stage Renal Disease, Hx Peritoneal Dialysis GI Medical History: Reports: Hx Pancreatitis. Denies: Hx Gastroesophageal Reflux Disease, Hx Hepatitis, Hx Hiatal Hernia Musculoskeltal Medical History: Denies Hx Arthritis Skin Medical History: Psychiatric Medical History: Denies: Hx Dementia, Hx Depression Infectious Medical History: Denies: Hx Hepatitis Past Surgical History: Reports: Hx Section - x3, Hx Hysterectomy Physical Exam - Vital signs Vitals: Temp Pulse Resp BP Pulse Ox 97.9 F 94 16 150/96 H 100 01/14/19 08:00 01/14/19 08:00 01/14/19 08:00 01/14/19 08:00 01/14/19 08:00 - Abdominal Inspection: Normal Distension: No distension Bowel sounds: Hyperactive Tenderness: Tender - Patient does have generalized abdominal tenderness with palpation worse in the epigastric region of the abdomen. Organomegaly: No organomegaly Course - Re-evaluation Re-evalutation: 01/14/19 09:39 Patient tearful, appears uncomfortable. I did review the patient's previous charts that she has been here multiple times within the past week for abdominal pain. We will give a small dose of pain medication, Zofran for nausea and initiate IV fluids. Lab work is pending. I have greeted and performed a rapid initial assessment of this patient. A comprehensive ED assessment and evaluation of the patient, analysis of test results and completion of the medical decision making process will be conducted by additional ED providers. - Vital Signs Vital signs: Temp Pulse Resp BP Pulse Ox 97.9 F 94 16 150/96 H 100 01/14/19 08:00 01/14/19 08:00 01/14/19 08:00 01/14/19 08:00 01/14/19 08:00 - Laboratory Result Diagrams: 01/14/19 08:50 01/14/19 08:50 Laboratory results interpreted by me: 01/14/19 01/14/19 08:14 08:50 Hgb 11.2 L Hct 33.6 L RDW 14.7 H Urine Protein 100 H Urine Glucose (UA) >=500 H Urine Blood SMALL H Doctor's Discharge - Discharge Referrals: RONALD BARKER FNP-C [Primary Care Provider] - Follow up as needed
[2019-01-14] MEDS ORDERED: DIPHENHYDRAMINE HCL 50 MG/ML VIAL IV ONE (11:10)
[2019-01-14] MEDS ORDERED: HALOPERIDOL LACTATE INJ 5 MG/1 ML VIAL IV ONE (11:10)
--- NOTE | 2019-01-14 11:16 | ER Document Report ---
ED General - General Chief Complaint: Abdominal Pain Stated Complaint: ABDOMINAL PAIN Time Seen by Provider: 01/14/19 09:21 Primary Care Provider: RONALD BARKER FNP-C [Primary Care Provider] - Follow up as needed Notes: 38-year-old female presents emergency department complaining of epigastric abdominal pain since 2 AM. States it is associated with nonbloody nonbilious emesis. States that she has had similar pain in the past and it is located in her epigastrium, states it feels similar to pain she has been having for the past several days, states that it feels like her prior pancreatitis. Does not have any medications at home, has tried smoking pot at home and it has not helped. Denies any fevers. Denies any diarrhea. States her pancreatitis comes from prior history of alcoholism, has not had anything alcoholic to drink in 8 years. TRAVEL OUTSIDE OF THE [place] IN LAST 30 DAYS: No - Related Data Allergies/Adverse Reactions: hydrocodone [From [place]] Allergy (Verified 01/14/19 08:06) morphine Allergy (Verified 01/14/19 08:06) Home Medications: lisinopril. metoprolol. amlodipine. lantus. novolog. hydralazine Past Medical History - General Information source: Patient - Social History Smoking Status: Current Every Day Smoker Chew tobacco use (# tins/day): No Frequency of alcohol use: None - Quit drinking 8 years ago. Drug Abuse: Marijuana Family History: Reviewed & Not Pertinent, DM, Hypertension Patient has suicidal ideation: No Patient has homicidal ideation: No - Past Medical History Cardiac Medical History: Reports: Hx Hypercholesterolemia, Hx Hypertension Denies: Hx Congestive Heart Failure, Hx Heart Attack Pulmonary Medical History: Reports: Hx COPD Denies: Hx Asthma Neurological Medical History: Reports: Hx Seizures. Denies: Hx Migraine Endocrine Medical History: Reports: Hx Diabetes Mellitus Type 1, Hx Diabetes Mellitus Type 2. Denies: Hx Hyperthyroidism, Hx Hypothyroidism Renal/ Medical History: Reports: Hx Renal Insufficiency. Denies: Hx End Stage Renal Disease, Hx Peritoneal Dialysis GI Medical History: Reports: Hx Pancreatitis. Denies: Hx Gastroesophageal Reflux Disease, Hx Hepatitis, Hx Hiatal Hernia Musculoskeletal Medical History: Denies Hx Arthritis Skin Medical History: Psychiatric Medical History: Denies: Hx Dementia, Hx Depression Infectious Medical History: Denies: Hx Hepatitis Past Surgical History: Reports: Hx Section - x3, Hx Hysterectomy Review of Systems - Review of Systems Constitutional: No symptoms reported Gastrointestinal: See HPI -: Yes All other systems reviewed and negative Physical Exam - Vital signs Vitals: Temp Pulse Resp BP Pulse Ox 97.9 F 94 16 150/96 H 100 01/14/19 08:00 01/14/19 08:00 01/14/19 08:00 01/14/19 08:00 01/14/19 08:00 Interpretation: Hypertensive - Notes Notes: GENERAL: Alert, interacts well. Appears somewhat uncomfortable. HEAD: Normocephalic, atraumatic EYES: Pupils equal, round and reactive to light, extraocular movements intact. ENT: Oral mucosa moist, tongue midline. NECK: Full range of motion, supple, trachea midline. LUNGS: Clear to auscultation bilaterally, no wheezes, rales or rhonchi, no respiratory distress. HEART: Regular rate and rhythm, no murmurs, gallops, rubs. ABDOMEN: Soft, epigastric tenderness to palpation, nondistended, bowel sounds present in all 4 quadrants. EXTREMITIES: Moves all 4 extremities spontaneously, no edema, radial and dorsalis pedis pulses 2/4 bilaterally. No cyanosis. NEUROLOGICAL: Alert and oriented x3, normal speech. PSYCH: Somewhat anxious. SKIN: Warm, Dry, normal turgor, no rashes or lesions noted. Course - Re-evaluation Re-evalutation: 01/14/19 12:04 CBC shows stable anemia at 11.2, still no leukocytosis, CMP shows a creatinine that slightly elevated at 1.43, again this is within her baseline, potassium slightly low at 3.4, there is no gap, no evidence of DKA, urinalysis shows glucose but no ketones, test is negative, flu swabs are negative. Discussed with patient that there was no evidence that this was a flare of her chronic pancreatitis and with the fact that she sometimes smokes marijuana to help with her pain and her nausea I was concerned that this may actually be cyclic vomiting syndrome, we did try low-dose Haldol with Benadryl and patient's pain has now completely resolved, responded better to this than it did to half a milligram of Dilaudid. Her nausea is also resolved. She is drinking ice and fluids without difficulty. Patient will be discharged home with Zofran and Phenergan. Recommend that she stop smoking marijuana. - Vital Signs Vital signs: Temp Pulse Resp BP Pulse Ox 97.9 F 94 16 150/96 H 100 01/14/19 08:00 01/14/19 08:00 01/14/19 08:00 01/14/19 08:00 01/14/19 08:00 - Laboratory Result Diagrams: 01/14/19 08:50 01/14/19 08:50 Laboratory results interpreted by me: 01/14/19 01/14/19 01/14/19 08:14 08:50 08:50 Hgb 11.2 L Hct 33.6 L RDW 14.7 H Potassium 3.4 L Carbon Dioxide 31 H Creatinine 1.43 H Est GFR ( Amer) 50 L Est GFR (MDRD) Non-Af 41 L Glucose 139 H AST 45 H Alkaline Phosphatase 145 H Urine Protein 100 H Urine Glucose (UA) >=500 H Urine Blood SMALL H Discharge - Discharge Clinical Impression: Epigastric abdominal pain, IDDM (insulin dependent diabetes mellitus), Elevated serum creatinine, Cyclic vomiting syndrome, Marijuana smoker Nausea and vomiting Qualifiers: Vomiting type: unspecified Vomiting Intractability: intractable Qualified Code(s): R11.2 - Nausea with vomiting, unspecified Pancreatitis, chronic Qualifiers: Pancreatitis type: unspecified pancreatitis type Qualified Code(s): K86.1 - Other chronic pancreatitis Condition: Stable Disposition: HOME, SELF-CARE Additional Instructions: Some of your pain is coming from your chronic pancreatitis however there is no evidence of acute pancreatitis. Some of your pain and vomiting is coming from cyclic vomiting syndrome. Cyclic vomiting syndrome is caused by smoking marijuana. Please consider stopping marijuana. The next time you come to the emergency department have pain like this you may wish to request Haldol and Benadryl as this is what helps with your pain today. I have prescribed Phenergan and Zofran to help with your vomiting at home. Please return for fevers, blood in your vomit or any new or concerning symptoms. Prescriptions: Promethazine HCl [Phenergan 25 mg Tablet] 1 - 2 tab PO Q6H PRN #15 tablet PRN Reason: Ondansetron [Zofran Odt 4 mg Tablet] 1 - 2 tab PO Q4H PRN #15 tab.rapdis PRN Reason: For Nausea/Vomiting Referrals: RONALD BARKER, [facility]-C [Primary Care Provider] - Follow up as needed
[2019-01-14 11:51] LABS: A TYPE INFLUENZA AG NEGATIVE (NEGATIVE)
[2019-01-14 11:52] LABS: B INFLUENZA AG NEGATIVE (NEGATIVE)
[2019-01-14 12:18] VITALS: BP 134/94
== END 2019-01-14 12:32 | disposition home or self-care (01) ==
LOC: ER 07:57
DX: K86.1 Other chronic pancreatitis (principal); R10.13 Epigastric pain; R11.15 Cyclical vomiting syndrome unrelated to migraine; F12.90 Cannabis use, unspecified, uncomplicated; R79.89 Other specified abnormal findings of blood chemistry; F17.200 Nicotine dependence, unspecified, uncomplicated; E78.00 Pure hypercholesterolemia, unspecified; I10 Essential (primary) hypertension; E11.9 Type 2 diabetes mellitus without complications; Z90.710 Acquired absence of both cervix and uterus; Z88.6 Allergy status to analgesic agent; Z79.84 Long term (current) use of oral hypoglycemic drugs
CPT/HCPCS: 99284; 96361; 96374; 96375; 36415; 83690; 85025; 81025; 80053; 81001; 87804; J1200; J1630; J1170; J2405; J7030

== ENCOUNTER 2019-02-05 10:22 | Inpatient (IN) | payer MEDICAID ==
[2019-02-05 11:18] LABS: ALBUMIN 4.1 g/dL (3.5-5.0); ALKALINE PHOSPHATASE 184 U/L (38-126); ANION GAP 16 (5-19); ASPARTATE AMINO TRANSFERASE 26 U/L (14-36); BILIRUBIN,DIRECT 0.4 mg/dL (0.0-0.4); BILIRUBIN,TOTAL 0.6 mg/dL (0.2-1.3); BLOOD UREA NITROGEN 20 mg/dL (7-20); CALCIUM 9.9 mg/dL (8.4-10.2); CARBON DIOXIDE 22 mmol/L (22-30); CHLORIDE 97 mmol/L (98-107); TOTAL PROTEIN 7.3 g/dL (6.3-8.2)
[2019-02-05 11:25] LABS: ABSOLUTE BASOPHILS # (AUTO) 0.1 10^3/uL (0.0-0.2); ABSOLUTE EOSINOPHILS # (AUTO) 0.1 10^3/uL (0.0-0.6); ABSOLUTE LYMPHOCYTES (AUTO) 2.1 10^3/uL (0.5-4.7); ABSOLUTE MONOCYTES (AUTO) 0.4 10^3/uL (0.1-1.4); ABSOLUTE NEUT (AUTO) 7.2 10^3/uL (1.7-8.2); BASOPHILS % (AUTO) 0.7 % (0-2); HEMATOCRIT 35.4 % (36.0-47.0); HEMOGLOBIN 11.6 g/dL (12.0-15.5); LYMPHOCYTES % (AUTO) 21.2 % (13-45); MEAN CORPUSCULAR HEMOGLOBIN 28.5 pg (27.0-33.4); MEAN CORPUSCULAR HGB CONC 32.7 g/dL (32.0-36.0); MEAN CORPUSCULAR VOLUME 87 fl (80-97); MONOCYTES % (AUTO) 4.5 % (3-13); PLATELET COUNT 406 10^3/uL (150-450); RED BLOOD COUNT 4.07 10^6/uL (3.72-5.28); RED CELL DISTRIBUTION WIDTH 14.7 % (11.5-14.0); SEGMENTED NEUTROPHILS % (AUTO) 72.6 % (42-78); TOTAL CELLS COUNTED % (AUTO) 100 %; WHITE BLOOD COUNT 9.9 10^3/uL (4.0-10.5)
[2019-02-05 11:36] LABS: GLUCOSE 520 mg/dL (75-110)
[2019-02-05] MEDS ORDERED: NORMAL SALINE 1000 ML 1,000 ML IV PRN ×2 (12:48→18:17)
[2019-02-05] MEDS ORDERED: NORMAL SALINE 1000 ML 1,000 ML IV ONE ×2 (13:18→14:00)
[2019-02-05] MEDS ORDERED: INSULIN GLARGINE,HUM.REC.ANLOG 1,000 UNIT/10 ML VIAL SUBCUT ONE (13:18)
[2019-02-05] MEDS ORDERED: HYDROMORPHONE HCL INJ/PF 2 MG/ML AMPULE IV ONE (13:18)
[2019-02-05] MEDS ORDERED: ONDANSETRON HCL INJ/PF 4 MG/2 ML SDV IV ONE (13:35)
--- NOTE | 2019-02-05 13:38 | ER Document Report ---
ED GI/ - General Chief Complaint: Abdominal Pain Stated Complaint: ABDOMINAL PAIN Time Seen by Provider: 02/05/19 13:03 Notes: Patient presents complaining of abdominal pain that started around 4 this morning. Patient states she has had nausea. Patient denies any vomiting diarrhea or fever. Patient states she has a history of pancreatitis and is concerned about this today. Patient states that she is diabetic and typically takes Lantus 30 units in the morning and because of her pain symptoms she did not feel like getting up and getting the medication out of her refrigerator. TRAVEL OUTSIDE OF THE [place] IN LAST 30 DAYS: No - HPI Patient complains to provider of: Abdominal pain. No: Diarrhea, Vomiting Onset: This morning Timing/Duration: Persistent Quality of pain: Sharp Pain Level: 5 Location: Epigastric Associated symptoms: Nausea. denies: Dysuria, Fever, Urinary hesitancy, Urinary frequency, Urinary retention, Urinary urgency, Vomiting Exacerbated by: Denies Relieved by: Denies Similar symptoms previously: Yes Recently seen / treated by doctor: Yes - Related Data Allergies/Adverse Reactions: hydrocodone [From [place]] Allergy (Verified 01/14/19 08:06) morphine Allergy (Verified 01/14/19 08:06) prednisone Allergy (Verified 02/05/19 15:08) Edema Home Medications: metoprolol, lisinopril, lantus, novalog Past Medical History - General Information source: Patient - Social History Smoking Status: Current Every Day Smoker Chew tobacco use (# tins/day): No Frequency of alcohol use: None Drug Abuse: Marijuana Occupation: None Family History: Reviewed & Not Pertinent, DM, Hypertension Patient has suicidal ideation: No Patient has homicidal ideation: No - Past Medical History Cardiac Medical History: Reports: Hx Hypercholesterolemia, Hx Hypertension Pulmonary Medical History: Reports: Hx COPD Neurological Medical History: Reports: Hx Seizures Endocrine Medical History: Reports: Hx Diabetes Mellitus Type 1. Denies: Hx Hyperthyroidism, Hx Hypothyroidism Renal/ Medical History: Reports: Hx Renal Insufficiency GI Medical History: Reports: Hx Pancreatitis Musculoskeletal Medical History: Skin Medical History: Infectious Medical History: Denies: Hx Hepatitis Past Surgical History: Reports: Hx Section - x3, Hx Hysterectomy Review of Systems - Review of Systems Constitutional: No symptoms reported. denies: Fever, Recent illness EENT: No symptoms reported Cardiovascular: No symptoms reported. denies: Chest pain Respiratory: No symptoms reported. denies: Cough, Short of breath Gastrointestinal: Abdominal pain, Nausea. denies: Vomiting Genitourinary: No symptoms reported. denies: Dysuria Female Genitourinary: No symptoms reported Musculoskeletal: No symptoms reported Skin: No symptoms reported Hematologic/Lymphatic: No symptoms reported Neurological/Psychological: No symptoms reported. denies: Headaches Physical Exam - Vital signs Vitals: Resp Pulse Ox 11 L 97 02/05/19 10:43 02/05/19 10:43 - General General appearance: Alert In distress: None - HEENT Head: Normocephalic, Atraumatic Eyes: Normal Conjunctiva: Normal Nasal: Normal Mouth/Lips: Normal Mucous membranes: Dry Pharynx: Normal Neck: Normal, Supple. No: Lymphadenopathy - Respiratory Respiratory status: No respiratory distress Chest status: Nontender Breath sounds: Normal. No: Rales, Rhonchi, Stridor, Wheezing Chest palpation: Normal - Cardiovascular Rhythm: Tachycardia Heart sounds: S1 appreciated, S2 appreciated Murmur: No - Abdominal Inspection: Normal Distension: No distension Bowel sounds: Normal Tenderness: Tender - epigastric Organomegaly: No organomegaly - Back Back: Normal, Nontender - Extremities General upper extremity: Normal inspection, Normal strength General lower extremity: Normal inspection, Normal strength - Neurological Neuro grossly intact: Yes Cognition: Normal [place] Coma Scale Eye Opening: Spontaneous [place] Coma Scale Verbal: Oriented [place] Com[place] Scale Motor: Obeys Commands [place] Coma Scale Total: 15 - Psychological Associated symptoms: Normal affect, Normal mood - Skin Skin Temperature: Warm Skin Moisture: Dry Skin Color: Normal Course - Re-evaluation Re-evalutation: 02/05/19 13:15 Patient states that due to her abdominal pain she did not take her normal dose of Lantus that she takes every morning. Patient states that her medicine was and she just did not feel like retrieving her medicine so that she can take her normal dose. Patient states that she did take her blood pressure pills. Patient complains of epigastric pain in which she states this feels as though she is having pancreatitis that she has had this in the past. Patient does report nausea no vomiting. Consulted with Dr. Eng regarding patient presentation and the fact that patient has not had her usual dose of insulin. Patient does typically take her Lantus in the morning versus in the evening. Dr. Eng reviewed patient's labs agrees with plan to give her her dose of Lantus 30 units subcu at this time. 02/05/19 13:38 Patient complains of nausea requesting antiemetic at this time. 02/05/19 15:16 Patient sitting up states that abdominal pain is improved at this time after pain medication. Patient also reports nausea is improved. Patient states that she took her blood pressure medication earlier today although she feels that she likely vomited it up. RN encouraged to repeat Accu-Chek at this time. 02/05/19 15:27 Repeat Accu-Chek over 500. Received about 800 mL's of her IV fluids at this time. Patient encouraged to keep her arm straight and so that the fluids can infuse. Consulted with Dr. Eng regarding patient's VBG, agrees with plan that patient should be admitted at this time. Consulted with YOUSIF zeng who agrees to accept patient for admission under Dr. Briggs's services. - Vital Signs Vital signs: Temp Pulse Resp BP Pulse Ox 99.1 F 123 H 13 173/99 H 99 02/05/19 10:45 02/05/19 17:49 02/05/19 16:01 02/05/19 17:01 02/05/19 17:01 - Laboratory Result Diagrams: 02/05/19 10:49 02/05/19 10:49 Laboratory results interpreted by me: 02/05/19 02/05/19 02/05/19 10:49 10:49 14:20 Hgb 11.6 L Hct 35.4 L RDW 14.7 H VBG pH 7.25 L VBG HCO3 17.0 L Sodium 135.4 L Chloride 97 L Creatinine 1.52 H Est GFR ( Amer) 46 L Est GFR (MDRD) Non-Af 38 L Glucose 520 H* POC Glucose Alkaline Phosphatase 184 H Lipase 434.2 H Urine Protein Urine Glucose (UA) Urine Ketones Urine Blood 02/05/19 02/05/19 14:34 15:19 Hgb Hct RDW VBG pH VBG HCO3 Sodium Chloride Creatinine Est GFR ( Amer) Est GFR (MDRD) Non-Af Glucose POC Glucose > 550 H* Alkaline Phosphatase Lipase Urine Protein >=500 H Urine Glucose (UA) >=500 H Urine Ketones 20 H Urine Blood SMALL H 02/05/19 20:26 Labs- Entire Visit 02/05/19 02/05/19 02/05/19 10:49 10:49 14:20 WBC 9.9 RBC 4.07 Hgb 11.6 L Hct 35.4 L MCV 87 MCH 28.5 MCHC 32.7 RDW 14.7 H Plt Count 406 Lymph % (Auto) 21.2 Crisp % (Auto) 4.5 Eos % (Auto) 1.0 Baso % (Auto) 0.7 Absolute Neuts (auto) 7.2 Absolute Lymphs (auto) 2.1 Absolute Monos (auto) 0.4 Absolute Eos (auto) 0.1 Absolute Basos (auto) 0.1 Seg Neutrophils % 72.6 VBG pH 7.25 L VBG pCO2 39.5 VBG HCO3 17.0 L VBG Base Excess -9.6 Sodium 135.4 L Potassium 4.0 Chloride 97 L Carbon Dioxide 22 Anion Gap 16 BUN 20 Creatinine 1.52 H Est GFR ( Amer) 46 L Est GFR (MDRD) Non-Af 38 L Glucose 520 H* POC Glucose Calcium 9.9 Total Bilirubin 0.6 Direct Bilirubin 0.4 Neonat Total Bilirubin Not Reportable Neonat Direct Bilirubin Not Reportable Neonat Indirect Bili Not Reportable AST 26 ALT 24 Alkaline Phosphatase 184 H Total Protein 7.3 Albumin 4.1 Lipase 434.2 H Urine Color Urine Appearance Urine pH Ur Specific [place] Urine Protein Urine Glucose (UA) Urine Ketones Urine Blood Urine Nitrite Urine Bilirubin Urine Urobilinogen Ur Leukocyte Esterase Urine WBC (Auto) Urine RBC (Auto) U Hyaline Cast (Auto) Urine Bacteria (Auto) Squamous Epi Cells Auto Urine Mucus (Auto) Urine Ascorbic Acid 02/05/19 02/05/19 14:34 15:19 WBC RBC Hgb Hct MCV MCH MCHC RDW Plt Count Lymph % (Auto) Crisp % (Auto) Eos % (Auto) Baso % (Auto) Absolute Neuts (auto) Absolute Lymphs (auto) Absolute Monos (auto) Absolute Eos (auto) Absolute Basos (auto) Seg Neutrophils % VBG pH VBG pCO2 VBG HCO3 VBG Base Excess Sodium Potassium Chloride Carbon Dioxide Anion Gap BUN Creatinine Est GFR ( Amer) Est GFR (MDRD) Non-Af Glucose POC Glucose > 550 H* Calcium Total Bilirubin Direct Bilirubin Neonat Total Bilirubin Neonat Direct Bilirubin Neonat Indirect Bili AST ALT Alkaline Phosphatase Total Protein Albumin Lipase Urine Color STRAW Urine Appearance SLIGHTLY-CLOUDY Urine pH 5.0 Ur Specific [place] 1.023 Urine Protein >=500 H Urine Glucose (UA) >=500 H Urine Ketones 20 H Urine Blood SMALL H Urine Nitrite NEGATIVE Urine Bilirubin NEGATIVE Urine Urobilinogen NEGATIVE Ur Leukocyte Esterase NEGATIVE Urine WBC (Auto) 1 Urine RBC (Auto) 1 U Hyaline Cast (Auto) 1 Urine Bacteria (Auto) TRACE Squamous Epi Cells Auto 5 Urine Mucus (Auto) RARE Urine Ascorbic Acid NEGATIVE Discharge - Discharge Clinical Impression: IDDM (insulin dependent diabetes mellitus), Noncompliance, Abdominal pain CKD (chronic kidney disease) Qualifiers: Chronic kidney disease stage: unspecified stage Qualified Code(s): N18.9 - Chronic kidney disease, unspecified DKA (diabetic ketoacidoses) Qualifiers: Diabetes mellitus type: other specified (including JERRELL) Diabetes mellitus complication detail: without coma Qualified Code(s): E13.10 - Other specified diabetes mellitus with ketoacidosis without coma Nausea & vomiting Qualifiers: Vomiting type: unspecified Vomiting Intractability: non-intractable Qualified Code(s): R11.2 - Nausea with vomiting, unspecified Condition: Fair Disposition: ADMITTED INPATIENT Admitting Provider: Cheo (Hospitalist) Unit Admitted: [facility]
[2019-02-05 14:35] LABS: VENOUS BLOOD BASE EXCESS -9.6 mmol/L; VENOUS BLOOD PCO2 39.5 mmHg (35-63); VENOUS BLOOD PH 7.25 (7.30-7.42)
[2019-02-05 15:04] LABS: APPEARANCE,URINE SLIGHTLY-CLOUDY; BILIRUBIN,URINE NEGATIVE (NEGATIVE); COLOR,URINE STRAW; GLUCOSE, URINE >=500 mg/dL (NEGATIVE); KETONES,URINE 20 mg/dL (NEGATIVE); LEUKOCYTE ESTERASE,URINE NEGATIVE (NEGATIVE); NITRITE,URINE NEGATIVE (NEGATIVE); PROTEIN,URINE >=500 mg/dL (NEGATIVE); URINE SPECIFIC GRAVITY 1.023; UROBILINOGEN,URINE NEGATIVE mg/dL (<2.0)
[2019-02-05] MEDS ORDERED: DEXTROSE 40% GEL 15 GM TUBE PO PRN ×4 (16:28→16:46)
[2019-02-05] MEDS ORDERED: GLUCAGON,HUMAN RECOMB 1 MG INJ SUBCUT PRN (16:28)
[2019-02-05] MEDS ORDERED: DEXTROSE 50%-WATER 25 GM/50 ML DISP.SYRIN IV PRN ×4 (16:28→16:46)
[2019-02-05] MEDS ORDERED: ACETAMINOPHEN 325 MG TABLET PO PRN (16:28)
[2019-02-05] MEDS ORDERED: NORMAL SALINE 100 ML with INSULIN REGULAR, HUMAN 100 UNIT IV PRN ×2 (16:46)
[2019-02-05] MEDS ORDERED: DEXTROSE 5%-NORMAL SALINE 1,000 ML IV PRN (16:46)
[2019-02-05] MEDS ORDERED: GLUCAGON,HUMAN RECOMB 1 MG INJ IM PRN (16:46)
--- NOTE | 2019-02-05 16:58 | PDOC H&P ---
History of Present Illness Admission Date/PCP: 02/05/19 15:52 RONALD BARKER, LYNNE History of Present Illness: JJ HOFFMAN is a 38 year old female who has a long history of multiple adm issions for both pancreatitis and DKA. States that this morning she woke up around 0400 with abdominal pain. Patient states she took her blood pressure medicines but vomited them up, she states she did not take her insulin this morning.. States she has vomited 4 times today. Patient comes in now for blood sugars greater than 500. Anion gap of 16, lipase 434, calcium 4, bicarb 17, pH7.25 In the emergency room patient is up and ambulatory about the room complaint of abdominal pain. States when she is here in the hospital she usually gets Dilaudid. Says she is allergic to morphine and hydrocodone. Patient does not physically or clinically look to be in extremis. Patient will be admitted for IV fluids, started on an insulin drip, treated with IV pain medication. Past Medical History Cardiac Medical History: Reports: Hyperlipidema, Hypertension Denies: Congestive Heart Failure, Myocardial Infarction Pulmonary Medical History: Reports: Chronic Obstructive Pulmonary Disease (COPD) Denies: Asthma Neurological Medical History: Reports: Seizures Denies: Migraine Endocrine Medical History: Reports: Diabetes Mellitus Type 1, Diabetes Mellitus Type 2 Denies: Hyperthyroidism, Hypothyroidism Renal/ Medical History: Denies: End Stage Renal Disease GI Medical History: Denies: Gastroesophageal Reflux Disease, Hepatitis, Hiatal Hernia Musculoskeltal Medical History: Denies: Arthritis Skin Medical History: Psychiatric Medical History: Denies: Dementia, Depression Hematology: Reports: Anemia Denies: Bleeding Tendencies Past Surgical History Past Surgical History: Reports: Section - x3, Hysterectomy Social History Smoking Status: Current Every Day Smoker Electronic Cigarette use?: No Frequency of Alcohol Use: None Hx Recreational Drug Use: No Drugs: None Hx Prescription Drug Abuse: No - Advance Directive Resuscitation Status: Full Code Family History Family History: Reviewed & Not Pertinent, DM, Hypertension Parental Family History Reviewed: No Children Family History Reviewed: No Sibling(s) Family History Reviewed.: No Medication/Allergy Home Medications: Amlodipine Besylate [Norvasc 10 mg Tablet] 10 mg PO DAILY 12/01/18 Gabapentin [Neurontin 300 mg Capsule] 300 mg PO Q12 12/01/18 Insulin Aspart [Novolog Flexpen] 0 unit SUBCUT .SLD SCALE 10/25/19 Insulin Glargine,Hum.rec.anlog [Lantus Insulin 100 Unit/1 ml 10 ml] 40 unit SUBCUT DAILY 12/01/18 Metoprolol Tartrate [Lopressor 50 mg Tablet] 50 mg PO Q12 12/01/18 Ferrous Sulfate 325 mg PO Q2DAYS #30 tablet.dr 12/03/18 Metoclopramide HCl [Metoclopramide HCl Odt] 10 mg PO Q8HP PRN 12/08/18 Lisinopril 20 mg PO DAILY #30 tablet 12/10/18 Oxycodone HCl/Acetaminophen [Percocet 5-325 mg Tablet] 1 tab PO ASDIR PRN #10 tab 12/10/18 Promethazine HCl [Phenergan 25 mg Tablet] 25 - 50 mg PO ASDIR PRN #12 tablet 12/10/18 Promethazine HCl 12.5 mg PO TID #9 tablet 01/09/19 Promethazine HCl [Phenergan] 12.5 mg RC TID #8 supp.rect 01/09/19 Ondansetron [Zofran Odt 4 mg Tablet] 1 - 2 tab PO Q4H PRN #15 tab.rapdis 01/14/19 Promethazine HCl [Phenergan 25 mg Tablet] 1 - 2 tab PO Q6H PRN #15 tablet 01/14/19 Allergies/Adverse Reactions: hydrocodone [From [place]] Allergy (Verified 01/14/19 08:06) morphine Allergy (Verified 01/14/19 08:06) prednisone Allergy (Verified 02/05/19 15:08) Edema Review of Systems Constitutional: PRESENT: weakness Cardiovascular: ABSENT: chest pain, dyspnea on exertion, edema, orthropnea, palpitations Respiratory: ABSENT: cough, hemoptysis Gastrointestinal: PRESENT: vomiting Neurological: ABSENT: abnormal gait, abnormal speech, confusion, dizziness, focal weakness, syncope Psychiatric: ABSENT: anxiety, depression, homidical ideation, suicidal ideation Physical Exam Vital Signs: Temp Pulse Resp BP Pulse Ox 99.1 F 12 132/94 H 99 02/05/19 10:45 02/05/19 10:45 02/05/19 10:45 02/05/19 10:45 Intake & Output 02/04/19 02/05/19 02/06/19 06:59 06:59 06:59 Intake Total 1999 Balance 2000 Weight 50.8 kg General appearance: PRESENT: mild distress, other - Patient is up and ambulating around the room Respiratory exam: PRESENT: clear to auscultation teddy. ABSENT: rales, rhonchi, wheezes Cardiovascular exam: PRESENT: RRR. ABSENT: diastolic murmur, rubs, systolic murmur Neurological exam: PRESENT: alert, awake, oriented to person, oriented to place, oriented to time, oriented to situation, CN II-XII grossly intact. ABSENT: motor sensory deficit Psychiatric exam: PRESENT: anxious Results Laboratory Results: 02/05/19 10:49 02/05/19 10:49 02/05/19 02/05/19 02/05/19 10:49 10:49 14:20 WBC 9.9 RBC 4.07 Hgb 11.6 L Hct 35.4 L MCV 87 MCH 28.5 MCHC 32.7 RDW 14.7 H Plt Count 406 Seg Neutrophils % 72.6 VBG pH 7.25 L VBG pCO2 39.5 VBG HCO3 17.0 L VBG Base Excess -9.6 Sodium 135.4 L Potassium 4.0 Chloride 97 L Carbon Dioxide 22 Anion Gap 16 BUN 20 Creatinine 1.52 H Est GFR ( Amer) 46 L Glucose 520 H* Calcium 9.9 Total Bilirubin 0.6 AST 26 Alkaline Phosphatase 184 H Total Protein 7.3 Albumin 4.1 Lipase 434.2 H Urine Color Urine Appearance Urine pH Ur Specific [place] Urine Protein Urine Glucose (UA) Urine Ketones Urine Blood Urine Nitrite Ur Leukocyte Esterase Urine WBC (Auto) Urine RBC (Auto) 02/05/19 14:34 WBC RBC Hgb Hct MCV MCH MCHC RDW Plt Count Seg Neutrophils % VBG pH VBG pCO2 VBG HCO3 VBG Base Excess Sodium Potassium Chloride Carbon Dioxide Anion Gap BUN Creatinine Est GFR ( Amer) Glucose Calcium Total Bilirubin AST Alkaline Phosphatase Total Protein Albumin Lipase Urine Color STRAW Urine Appearance SLIGHTLY-CLOUDY Urine pH 5.0 Ur Specific [place] 1.023 Urine Protein >=500 H Urine Glucose (UA) >=500 H Urine Ketones 20 H Urine Blood SMALL H Urine Nitrite NEGATIVE Ur Leukocyte Esterase NEGATIVE Urine WBC (Auto) 1 Urine RBC (Auto) 1 Assessment and Plan - Diagnosis (1) Abdominal pain Is this a current diagnosis for this admission?: Yes (2) Abdominal pain Qualifiers: Abdominal location: epigastric Qualified Code(s): R10.13 - Epigastric pain Is this a current diagnosis for this admission?: Yes (3) CKD (chronic kidney disease) Qualifiers: Chronic kidney disease stage: unspecified stage Qualified Code(s): N18.9 - Chronic kidney disease, unspecified Is this a current diagnosis for this admission?: Yes (4) DKA (diabetic ketoacidoses) Qualifiers: Diabetes mellitus type: other specified (including JERRELL) Diabetes mellitus complication detail: without coma Qualified Code(s): E13.10 - Other specified diabetes mellitus with ketoacidosis without coma Is this a current diagnosis for this admission?: Yes (5) Nausea & vomiting Qualifiers: Vomiting type: unspecified Vomiting Intractability: non-intractable Qualified Code(s): R11.2 - Nausea with vomiting, unspecified Is this a current diagnosis for this admission?: Yes (6) Noncompliance Is this a current diagnosis for this admission?: Yes (7) Pancreatitis Is this a current diagnosis for this admission?: Yes - Plan Summary Summary: Patient will be treated with IV fluids, IV pain medication, started on an insulin drip.. His labs will be checked every 6 hours Patient will be given Dilaudid 1 mg every 4 hours as needed pain. Patient states that usually takes about 5 days of hospitalization, before she is able to be discharged home. - Time Time Spent with patient: 35 or more minutes
[2019-02-05] MEDS: HYDROMORPHONE HCL INJ/PF 2 MG/ML AMPULE IV PRN (18:22)
[2019-02-05] MEDS: HEPARIN SOD (PORCINE) 5,000 UNIT/ML 1 ML VIAL SUBCUT SCH (21:21)
[2019-02-05] MEDS: FAMOTIDINE INJ/PF 20 MG/2 ML SDV IV SCH (21:22)
[2019-02-05] MEDS: DIPHENHYDRAMINE HCL 25 MG CAPSULE PO PRN (22:16)
[2019-02-05 23:25] LABS: ANION GAP 16 (5-19); BLOOD UREA NITROGEN 24 mg/dL (7-20); CARBON DIOXIDE 18 mmol/L (22-30); CHLORIDE 101 mmol/L (98-107); GLUCOSE 380 mg/dL (75-110); POTASSIUM 4.1 mmol/L (3.6-5.0)
[2019-02-06] MEDS: HYDROMORPHONE HCL INJ/PF 2 MG/ML AMPULE IV PRN ×5 (01:33→21:04)
[2019-02-06] MEDS: ONDANSETRON HCL INJ/PF 4 MG/2 ML SDV IV PRN ×4 (01:35→22:47)
[2019-02-06] MEDS: HEPARIN SOD (PORCINE) 5,000 UNIT/ML 1 ML VIAL SUBCUT SCH ×3 (05:21→21:06)
[2019-02-06] MEDS: RINGERS SOLUTION,LACTATED 1,000 ML IV PRN ×3 (05:50→19:47)
[2019-02-06 07:22] LABS: AMYLASE 112 U/L (30-110); ANION GAP 13 (5-19); BLOOD UREA NITROGEN 20 mg/dL (7-20); CARBON DIOXIDE 23 mmol/L (22-30); CHLORIDE 106 mmol/L (98-107); GLUCOSE 79 mg/dL (75-110); POTASSIUM 3.9 mmol/L (3.6-5.0)
[2019-02-06 07:35] LABS: ABSOLUTE BASOPHILS # (AUTO) 0.1 10^3/uL (0.0-0.2); ABSOLUTE EOSINOPHILS # (AUTO) 0.1 10^3/uL (0.0-0.6); ABSOLUTE LYMPHOCYTES (AUTO) 3.5 10^3/uL (0.5-4.7); ABSOLUTE MONOCYTES (AUTO) 0.7 10^3/uL (0.1-1.4); ABSOLUTE NEUT (AUTO) 8.1 10^3/uL (1.7-8.2); BASOPHILS % (AUTO) 1.1 % (0-2); EOSINOPHILS % (AUTO) 0.8 % (0-6); HEMATOCRIT 35.2 % (36.0-47.0); HEMOGLOBIN 11.3 g/dL (12.0-15.5); LYMPHOCYTES % (AUTO) 28.1 % (13-45); MEAN CORPUSCULAR HEMOGLOBIN 27.5 pg (27.0-33.4); MEAN CORPUSCULAR VOLUME 86 fl (80-97); MONOCYTES % (AUTO) 5.6 % (3-13); PLATELET COUNT 388 10^3/uL (150-450); RED CELL DISTRIBUTION WIDTH 14.4 % (11.5-14.0); SEGMENTED NEUTROPHILS % (AUTO) 64.4 % (42-78); TOTAL CELLS COUNTED % (AUTO) 100 %; WHITE BLOOD COUNT 12.5 10^3/uL (4.0-10.5)
[2019-02-06] MEDS: INSULIN GLARGINE,HUM.REC.ANLOG 1,000 UNIT/10 ML VIAL SUBCUT SCH (09:54)
[2019-02-06] MEDS: FAMOTIDINE INJ/PF 20 MG/2 ML SDV IV SCH ×2 (10:01→21:06)
[2019-02-06] MEDS: OXYCODONE-ACETAMINOPHEN 5-325 MG TABLET PO PRN ×2 (11:20→19:46)
--- NOTE | 2019-02-06 16:49 | PDOC PROGRESS REPORT ---
Subjective Progress Note for:: 02/06/19 Subjective:: This is a 38-year-old female with a past medical history of IDDM and recurrent chronic pancreatitis who presented with worsening abdominal pain. She was noted to be hyperglycemic on presentation and was started on insulin drip. Patient has been off insulin drip upon encounter this morning. Upon encounter, she reports that her abdominal pain is slightly better. She is currently n.p.o. Attempted to give her some ice chips this morning. However after she had some ice chips, she complained of recurrence of abdominal pain and was switched back to n.p.o. status again. Reason For Visit: 1PANCREATITIS,#2DIABETES,#3 CHRONIC KIDNEY DISEASE Physical Exam Vital Signs: Temp Pulse Resp BP Pulse Ox 99.1 F 93 17 175/108 H 100 02/06/19 11:13 02/06/19 14:00 02/06/19 11:13 02/06/19 11:13 02/06/19 11:13 Intake & Output 02/05/19 02/06/19 02/07/19 06:59 06:59 06:59 Intake Total 2638 1000 Output Total 0 Balance 2638 1000 Weight 127 lb 3.307 oz General appearance: PRESENT: no acute distress, well-developed, well-nourished Head exam: PRESENT: atraumatic, normocephalic Eye exam: PRESENT: conjunctiva pink, EOMI, PERRLA. ABSENT: scleral icterus Ear exam: PRESENT: normal external ear exam Mouth exam: PRESENT: moist, tongue midline Neck exam: ABSENT: carotid bruit, JVD, lymphadenopathy, thyromegaly Respiratory exam: PRESENT: clear to auscultation teddy. ABSENT: rales, rhonchi, wheezes Cardiovascular exam: PRESENT: RRR. ABSENT: diastolic murmur, rubs, systolic murmur Pulses: PRESENT: normal dorsalis pedis pul GI/Abdominal exam: PRESENT: normal bowel sounds, soft, tenderness - mild direct epigastric tenderness. ABSENT: distended, guarding, mass, organolmegaly, rebound Rectal exam: PRESENT: deferred Extremities exam: PRESENT: full ROM. ABSENT: calf tenderness, clubbing, pedal edema Neurological exam: PRESENT: alert, awake, oriented to person, oriented to place, oriented to time, oriented to situation, CN II-XII grossly intact. ABSENT: motor sensory deficit Results Laboratory Results: 02/06/19 06:48 02/06/19 06:48 02/05/19 02/06/19 02/06/19 22:51 06:48 06:48 WBC 12.5 H RBC 4.10 Hgb 11.3 L Hct 35.2 L MCV 86 MCH 27.5 MCHC 32.0 RDW 14.4 H Plt Count 388 Seg Neutrophils % 64.4 Sodium 135.0 L 141.8 Potassium 4.1 3.9 Chloride 101 106 Carbon Dioxide 18 L 23 Anion Gap 16 13 BUN 24 H 20 Creatinine 1.58 H 1.53 H Est GFR ( Amer) 44 L 46 L Glucose 380 H 79 Calcium 9.0 10.0 Magnesium 2.1 Amylase 112 H Lipase 169.4 Assessment and Plan - Diagnosis (1) Abdominal pain Is this a current diagnosis for this admission?: Yes Plan: Patient has recurrent acute on chronic pancreatitis. Will pursue a CT of the abdomen and pelvis to her he says this. She does appear to be in mild/early DKA (now resolved) upon presentation. We will switch her back to n.p.o. as she complained of recurrence of abdominal pain after she got some ice chips. (2) CKD (chronic kidney disease) Qualifiers: Chronic kidney disease stage: unspecified stage Qualified Code(s): N18.9 - Chronic kidney disease, unspecified Is this a current diagnosis for this admission?: Yes Plan: Creatinine is close to baseline. (3) DKA (diabetic ketoacidoses) Qualifiers: Diabetes mellitus type: other specified (including JERRELL) Diabetes mellitus complication detail: without coma Qualified Code(s): E13.10 - Other specified diabetes mellitus with ketoacidosis without coma Is this a current diagnosis for this admission?: Yes Plan: Hold off on Lantus for now as she is n.p.o. She does have history of hypoglycemic episodes on her previous admissions from acute on chronic pancreatitis when she was in n.p.o. status. (4) Insulin dependent diabetes mellitus Is this a current diagnosis for this admission?: Yes Plan: We will keep her on sliding scale for now. - Plan Summary Summary: Patient will be treated with IV fluids, IV pain medication, started on an insulin drip.. His labs will be checked every 6 hours Patient will be given Dilaudid 1 mg every 4 hours as needed pain. Patient states that usually takes about 5 days of hospitalization, before she is able to be discharged home. - Time Time Spent with patient: 25-34 minutes
[2019-02-06] MEDS: INSULIN LISPRO 100 UNIT/ML 3 ML VIAL SUBCUT SCH (17:09)
--- NOTE | 2019-02-06 17:56 | RADIOLOGY REPORT (SQ) ---
EXAM DESCRIPTION: CT ABD/PELVIS NO ORAL OR IV COMPLETED DATE/TIME: 02/06/2019 5:30 pm REASON FOR STUDY: persistent abdominal pain COMPARISON: 10/30/2018 TECHNIQUE: CT scan of the abdomen and pelvis performed without intravenous or oral contrast. Images reviewed with lung, soft tissue, and bone windows. Reconstructed coronal and sagittal MPR images revi ewed. All images stored on PACS. All CT scanners at this facility use dose modulation, iterative reconstruction, and/or weight based d osing when appropriate to reduce radiation dose to as low as reasonably achievable (ALARA). [facility]: Dose Right [facility]: CareDose [facility]: Dose Right [facility]: Teradose 4D [facility]: Smart [facility] RADIATION DOSE: CT Rad equipment meets quality standard of care and radiation dose reduction techniq ues were employed. CTDIvol: 4.9 mGy. DLP: 270 mGy-cm.mGy. LIMITATIONS: None. FINDINGS: LOWER CHEST: No significant findings. No nodules or infiltrates. NON-CONTRASTED LIVER, SPLEEN, ADRENALS: Evaluation limited by lack of IV contrast. No identified sign ificant masses. PANCREAS: Numerous calcifications consistent with chronic pancreatitis. No pancreatic mass. GALLBLADDER: No identified stones by CT criteria. No inflammatory changes to suggest cholecystitis. RIGHT KIDNEY AND URETER: No suspicious masses. Assessment limited by lack of IV contrast. No signif icant calcifications. No hydronephrosis or hydroureter. LEFT KIDNEY AND URETER: No suspicious masses. Assessment limited by lack of IV contrast. No signifi cant calcifications. No hydronephrosis or hydroureter. AORTA AND RETROPERITONEUM: No aneurysm. No retroperitoneal masses or adenopathy. BOWEL AND PERITONEAL CAVITY: No obvious masses or inflammatory changes. No free fluid. APPENDIX: Not identified. PELVIS, BLADDER, AND ABDOMINAL WALL:No abnormal masses. No free fluid. Bladder normal. BONES: No significant findings. OTHER: No other significant finding. IMPRESSION: Chronic pancreatitis. No no evidence of acute pancreatitis or other acute abdominal or pelvic findings. COMMENT: Quality ID # [id number]: Final reports with documentation of one or more dose reduction techniques (e.g., Automated exposure control, adjustment of the mA and/or kV according to patient size, use of iterative reconstruction technique) TECHNICAL DOCUMENTATION: JOB ID: [id number] [employer]- All Rights Reserved Reading location - IP/workstation name: [email or web address]
[2019-02-06] MEDS: DIPHENHYDRAMINE HCL 25 MG CAPSULE PO PRN (21:05)
[2019-02-07] MEDS: INSULIN LISPRO 100 UNIT/ML 3 ML VIAL SUBCUT SCH ×3 (00:14→17:56)
[2019-02-07] MEDS: HYDROMORPHONE HCL INJ/PF 2 MG/ML AMPULE IV PRN ×4 (02:19→21:03)
[2019-02-07] MEDS: RINGERS SOLUTION,LACTATED 1,000 ML IV PRN ×3 (02:20→21:08)
[2019-02-07] MEDS ORDERED: HYDRALAZINE HCL INJ/PF 20 MG/1 ML SDV IV PRN (04:27)
[2019-02-07] MEDS: HEPARIN SOD (PORCINE) 5,000 UNIT/ML 1 ML VIAL SUBCUT SCH ×3 (06:41→21:11)
[2019-02-07] MEDS: FAMOTIDINE INJ/PF 20 MG/2 ML SDV IV SCH ×2 (10:31→21:12)
[2019-02-07] MEDS ORDERED: METOCLOPRAMIDE HCL 10 MG TABLET PO PRN (13:23)
[2019-02-07] MEDS: GABAPENTIN 300 MG CAPSULE PO SCH ×2 (14:06→21:11)
[2019-02-07] MEDS: LISINOPRIL 10 MG TABLET PO SCH (14:06)
[2019-02-07] MEDS: AMLODIPINE BESYLATE 10 MG TABLET PO SCH (14:07)
[2019-02-07] MEDS: METOPROLOL TARTRATE 50 MG TABLET PO SCH ×2 (14:07→21:12)
[2019-02-07] MEDS: OXYCODONE-ACETAMINOPHEN 5-325 MG TABLET PO PRN (14:11)
--- NOTE | 2019-02-07 15:52 | PDOC PROGRESS REPORT ---
Subjective Progress Note for:: 02/07/19 Subjective:: This is a 38-year-old female with a past medical history of IDDM and recurrent chronic pancreatitis who presented with worsening abdominal pain. She was noted to be hyperglycemic on presentation and was started on insulin drip. 02/06: Patient has been off insulin drip upon encounter this morning. Upon encounter, she reports that her abdominal pain is slightly better. She is currently n.p.o. Attempted to give her some ice chips this morning. However after she had some ice chips, she complained of recurrence of abdominal pain and was switched back to n.p.o. status again. 02/07: No acute event overnight. She says that her abdominal pain has slightly improved this morning and that she wants to eat. Will switch IV Dilaudid to p.o. Percocet and will gradually advance her diet today. Reason For Visit: 1PANCREATITIS,#2DIABETES,#3 CHRONIC KIDNEY DISEASE Physical Exam Vital Signs: Temp Pulse Resp BP Pulse Ox 99.0 F 103 H 18 186/105 H 100 02/07/19 12:59 02/07/19 14:00 02/07/19 12:59 02/07/19 12:59 02/07/19 12:59 Intake & Output 02/06/19 02/07/19 02/08/19 06:59 06:59 06:59 Intake Total 2638 2876 1570 Output Total 0 Balance 2638 2876 1570 Weight 127 lb 3.307 oz 126 lb 5.198 oz General appearance: PRESENT: no acute distress, well-developed, well-nourished Head exam: PRESENT: atraumatic, normocephalic Eye exam: PRESENT: conjunctiva pink, EOMI, PERRLA. ABSENT: scleral icterus Ear exam: PRESENT: normal external ear exam Mouth exam: PRESENT: moist, tongue midline Neck exam: ABSENT: carotid bruit, JVD, lymphadenopathy, thyromegaly Respiratory exam: PRESENT: clear to auscultation teddy. ABSENT: rales, rhonchi, wheezes Cardiovascular exam: PRESENT: RRR. ABSENT: diastolic murmur, rubs, systolic murmur Pulses: PRESENT: normal dorsalis pedis pul GI/Abdominal exam: PRESENT: normal bowel sounds, soft, tenderness - minimal direct epig tenderness. ABSENT: distended, guarding, mass, organolmegaly, rebound Rectal exam: PRESENT: deferred Extremities exam: PRESENT: full ROM. ABSENT: calf tenderness, clubbing, pedal e viktoriya Neurological exam: PRESENT: alert, awake, oriented to person, oriented to place, oriented to time, oriented to situation, CN II-XII grossly intact. ABSENT: motor sensory deficit Results Laboratory Results: 02/06/19 06:48 02/06/19 06:48 02/07/19 06:51 Amylase 95 Lipase 91.0 Impressions: Abdomen/Pelvis CT 02/06/19 16:43 IMPRESSION: Chronic pancreatitis. No no evidence of acute pancreatitis or other acute abdominal or pelvic findings. Assessment and Plan - Diagnosis (1) Abdominal pain Is this a current diagnosis for this admission?: Yes Plan: 02/06: Patient has recurrent acute on chronic pancreatitis. Will pursue a CT of the abdomen and pelvis to her he says this. She does appear to be in mild/early DKA (now resolved) upon presentation. We will switch her back to n.p.o. as she complained of recurrence of abdominal pain after she got some ice chips. 02/07: Likely from a combination of mild DKA and acute and chronic pancreatitis. Lipase is normalized. Abdominal pain is improving. Will switch IV Dilaudid to p.o. Percocet and will gradually advance her diet today. (2) CKD (chronic kidney disease) Qualifiers: Chronic kidney disease stage: unspecified stage Qualified Code(s): N18.9 - Chronic kidney disease, unspecified Is this a current diagnosis for this admission?: Yes Plan: Creatinine is close to baseline. (3) DKA (diabetic ketoacidoses) Qualifiers: Diabetes mellitus type: other specified (including JERRELL) Diabetes mellitus complication detail: without coma Qualified Code(s): E13.10 - Other specified diabetes mellitus with ketoacidosis without coma Is this a current diagnosis for this admission?: Yes Plan: 02/06: Hold off on Lantus for now as she is n.p.o. She does have history of hypoglycemic episodes on her previous admissions from acute on chronic pancreatitis when she was in n.p.o. status. 02/07: Resume Lantus. (4) Insulin dependent diabetes mellitus Is this a current diagnosis for this admission?: Yes Plan: Continue sliding scale. Resume Lantus. - Plan Summary Summary: Patient will be treated with IV fluids, IV pain medication, started on an insulin drip.. His labs will be checked every 6 hours Patient will be given Dilaudid 1 mg every 4 hours as needed pain. Patient states that usually takes about 5 days of hospitalization, before she is able to be discharged home. - Time Time Spent with patient: 25-34 minutes
[2019-02-07] MEDS ORDERED: INSULIN LISPRO 100 UNIT/ML 3 ML VIAL SUBCUT SCH (16:00)
[2019-02-07] MEDS: INSULIN GLARGINE,HUM.REC.ANLOG 1,000 UNIT/10 ML VIAL SUBCUT SCH (17:20)
[2019-02-07] MEDS: ONDANSETRON HCL INJ/PF 4 MG/2 ML SDV IV PRN (19:45)
[2019-02-08] MEDS: INSULIN LISPRO 100 UNIT/ML 3 ML VIAL SUBCUT SCH ×2 (00:34→06:49)
[2019-02-08] MEDS: HYDROMORPHONE HCL INJ/PF 2 MG/ML AMPULE IV PRN ×2 (00:58→05:34)
[2019-02-08] MEDS: RINGERS SOLUTION,LACTATED 1,000 ML IV PRN (05:34)
[2019-02-08] MEDS: HEPARIN SOD (PORCINE) 5,000 UNIT/ML 1 ML VIAL SUBCUT SCH ×2 (05:35→15:37)
[2019-02-08 08:48] LABS: ABSOLUTE EOSINOPHILS # (AUTO) 0.1 10^3/uL (0.0-0.6); ABSOLUTE LYMPHOCYTES (AUTO) 2.7 10^3/uL (0.5-4.7); ABSOLUTE MONOCYTES (AUTO) 0.5 10^3/uL (0.1-1.4); BASOPHILS % (AUTO) 0.7 % (0-2); EOSINOPHILS % (AUTO) 1.9 % (0-6); HEMATOCRIT 33.5 % (36.0-47.0); HEMOGLOBIN 11.1 g/dL (12.0-15.5); LYMPHOCYTES % (AUTO) 50.5 % (13-45); MEAN CORPUSCULAR HEMOGLOBIN 28.3 pg (27.0-33.4); MEAN CORPUSCULAR HGB CONC 33.1 g/dL (32.0-36.0); MEAN CORPUSCULAR VOLUME 85 fl (80-97); MONOCYTES % (AUTO) 8.6 % (3-13); PLATELET COUNT 341 10^3/uL (150-450); RED BLOOD COUNT 3.92 10^6/uL (3.72-5.28); RED CELL DISTRIBUTION WIDTH 14.4 % (11.5-14.0); SEGMENTED NEUTROPHILS % (AUTO) 38.3 % (42-78); TOTAL CELLS COUNTED % (AUTO) 100 %; WHITE BLOOD COUNT 5.3 10^3/uL (4.0-10.5)
[2019-02-08 09:01] LABS: ANION GAP 8 (5-19); BLOOD UREA NITROGEN 8 mg/dL (7-20); CALCIUM 9.8 mg/dL (8.4-10.2); CARBON DIOXIDE 29 mmol/L (22-30); CHLORIDE 101 mmol/L (98-107); GLUCOSE 99 mg/dL (75-110); POTASSIUM 3.6 mmol/L (3.6-5.0)
[2019-02-08] MEDS: INSULIN GLARGINE,HUM.REC.ANLOG 1,000 UNIT/10 ML VIAL SUBCUT SCH ×2 (09:50→13:28)
[2019-02-08] MEDS: FAMOTIDINE INJ/PF 20 MG/2 ML SDV IV SCH (09:52)
[2019-02-08] MEDS: LISINOPRIL 10 MG TABLET PO SCH (09:57)
[2019-02-08] MEDS: GABAPENTIN 300 MG CAPSULE PO SCH (09:58)
[2019-02-08] MEDS: AMLODIPINE BESYLATE 10 MG TABLET PO SCH (09:58)
[2019-02-08] MEDS: METOPROLOL TARTRATE 50 MG TABLET PO SCH (09:58)
[2019-02-08] MEDS ORDERED: FAMOTIDINE 20 MG TABLET PO SCH (10:30)
[2019-02-08] MEDS ORDERED: INSULIN LISPRO 100 UNIT/ML 3 ML VIAL SUBCUT SCH (11:00)
[2019-02-08 15:44] VITALS: BP 188/100
--- NOTE | 2019-02-08 18:36 | PDOC DISCHARGE SUMMARY ---
Impression - Admit/DC Date/PCP Admission Date/Primary Care Provider: 02/05/19 15:52 LYNNE OLMEDO Discharge Date: 02/08/19 - Discharge Diagnosis (1) Abdominal pain Is this a current diagnosis for this admission?: Yes (2) CKD (chronic kidney disease) Is this a current diagnosis for this admission?: Yes (3) DKA (diabetic ketoacidoses) Is this a current diagnosis for this admission?: Yes (4) Insulin dependent diabetes mellitus Is this a current diagnosis for this admission?: Yes - Assessment Summary: Patient will be treated with IV fluids, IV pain medication, started on an insulin drip.. His labs will be checked every 6 hours Patient will be given Dilaudid 1 mg every 4 hours as needed pain. Patient states that usually takes about 5 days of hospitalization, before she is able to be discharged home. - Additional Information Resuscitation Status: Full Code Discharge Diet: Cardiac, Diabetic Discharge Activity: Activity As Tolerated Referrals: RONALD BARKER FNP-C [Primary Care Provider] - 02/14/19 2:30 pm Home Medications: Amlodipine Besylate [Norvasc 10 mg Tablet] 10 mg PO DAILY 12/01/18 Gabapentin [Neurontin 300 mg Capsule] 300 mg PO Q12 12/01/18 Insulin Aspart [Novolog Flexpen] 0 unit SUBCUT .SLD SCALE 12/01/18 Insulin Glargine,Hum.rec.anlog [Lantus Insulin 100 Unit/1 ml 10 ml] 40 unit SUBCUT DAILY 12/01/18 Metoprolol Tartrate [Lopressor 50 mg Tablet] 50 mg PO Q12 12/01/18 Ferrous Sulfate 325 mg PO Q2DAYS #30 tablet.dr 12/03/18 Metoclopramide HCl [Metoclopramide HCl Odt] 10 mg PO Q8HP PRN 12/08/18 Lisinopril 20 mg PO DAILY #30 tablet 12/10/18 History of Present Illiness History of Present Illness: Admitting hospitalist's H&P: JJ HOFFMAN is a 38 year old female who has a long history of multiple admissions for both pancreatitis and DKA. States that this morning she woke up around 0400 with abdominal pain. Patient states she took her blood pressure medicines but vomited them up, she states she did not take her insulin this morning. States she has vomited 4 times today. Patient comes in now for blood sugars greater than 500. Anion gap of 16, lipase 434, calcium 4, bicarb 17, pH7.25 In the emergency room patient is up and ambulatory about the room complaint of abdominal pain. States when she is here in the hospital she usually gets Dilaudid. Says she is allergic to morphine and hydrocodone. Patient does not physically or clinically look to be in extremis. Patient will be admitted for IV fluids, started on an insulin drip, treated with IV pain medication. Hospital Course Hospital Course: This is a 38-year-old female with a past medical history of IDDM and recurrent chronic pancreatitis who presented with worsening abdominal pain. She was noted to be hyperglycemic on presentation and was started on insulin drip. She did appear to be in mild/early DKA on presentation. She was also given IV fluids. DKA resolved. She was initially made n.p.o. She was initially on IV Dilaudid. Diet was gradually advanced and she was switched to PO Percocet which was adequate to control her abdominal pain. She eventually tolerated regular diet well. Her blood pressures also were controlled. She will follow-up with her PCP in a week. Physical Exam Vital Signs: Temp Pulse Resp BP Pulse Ox 97.5 F 92 17 188/100 H 99 02/08/19 17:08 02/08/19 17:08 02/08/19 17:08 02/08/19 17:08 02/08/19 17:08 Intake & Output 02/07/19 02/08/19 02/09/19 06:59 06:59 06:59 Intake Total 2876 2887 360 Output Total 0 0 Balance 2876 2887 360 Weight 126 lb 5.198 oz 126 lb 1.671 oz General appearance: PRESENT: no acute distress, well-developed, well-nourished Head exam: PRESENT: atraumatic, normocephalic Eye exam: PRESENT: conjunctiva pink, EOMI, PERRLA. ABSENT: scleral icterus Ear exam: PRESENT: normal external ear exam Mouth exam: PRESENT: moist, tongue midline Neck exam: ABSENT: carotid bruit, JVD, lymphadenopathy, thyromegaly Respiratory exam: PRESENT: clear to auscultation teddy. ABSENT: rales, rhonchi, wheezes Cardiovascular exam: PRESENT: RRR. ABSENT: diastolic murmur, rubs, systolic murmur Pulses: PRESENT: normal dorsalis pedis pul GI/Abdominal exam: PRESENT: normal bowel sounds, soft. ABSENT: distended, guarding, mass, organolmegaly, rebound, tenderness Rectal exam: PRESENT: deferred Extremities exam: PRESENT: full ROM. ABSENT: calf tenderness, clubbing, pedal edema Neurological exam: PRESENT: alert, awake, oriented to person, oriented to place, oriented to time, oriented to situation, CN II-XII grossly intact. ABSENT: motor sensory deficit Results Laboratory Results: WBC 5.3 10^3/uL (4.0-10.5) 02/08/19 05:29 RBC 3.92 10^6/uL (3.72-5.28) 02/08/19 05:29 Hgb 11.1 g/dL (12.0-15.5) L 02/08/19 05:29 Hct 33.5 % (36.0-47.0) L 02/08/19 05:29 MCV 85 fl (80-97) 02/08/19 05:29 MCH 28.3 pg (27.0-33.4) 02/08/19 05:29 MCHC 33.1 g/dL (32.0-36.0) 02/08/19 05:29 RDW 14.4 % (11.5-14.0) H 02/08/19 05:29 Plt Count 341 10^3/uL (150-450) 02/08/19 05:29 Lymph % (Auto) 50.5 % (13-45) H 02/08/19 05:29 [place] % (Auto) 8.6 % (3-13) 02/08/19 05:29 Eos % (Auto) 1.9 % (0-6) 02/08/19 05:29 Baso % (Auto) 0.7 % (0-2) 02/08/19 05:29 Absolute Neuts (auto) 2.0 10^3/uL (1.7-8.2) 02/08/19 05:29 Absolute Lymphs (auto) 2.7 10^3/uL (0.5-4.7) 02/08/19 05:29 Absolute Monos (auto) 0.5 10^3/uL (0.1-1.4) 02/08/19 05:29 Absolute Eos (auto) 0.1 10^3/uL (0.0-0.6) 02/08/19 05:29 Absolute Basos (auto) 0.0 10^3/uL (0.0-0.2) 02/08/19 05:29 Seg Neutrophils % 38.3 % (42-78) L 02/08/19 05:29 VBG pH 7.25 (7.30-7.42) L 02/05/19 14:20 VBG pCO2 39.5 mmHg (35-63) 02/05/19 14:20 VBG HCO3 17.0 mmol/L (20-32) L 02/05/19 14:20 VBG Base Excess -9.6 mmol/L 02/05/19 14:20 Sodium 138.2 mmol/L (137-145) 02/08/19 05:29 Potassium 3.6 mmol/L (3.6-5.0) 02/08/19 05:29 Chloride 101 mmol/L (98-107) 02/08/19 05:29 Carbon Dioxide 29 mmol/L (22-30) 02/08/19 05:29 Anion Gap 8 (5-19) 02/08/19 05:29 BUN 8 mg/dL (7-20) 02/08/19 05:29 Creatinine 1.32 mg/dL (0.52-1.25) H 02/08/19 05:29 Est GFR ( Amer) 54 (>60) L 02/08/19 05:29 Est GFR (MDRD) Non-Af 45 (>60) L 02/08/19 05:29 Glucose 99 mg/dL (75-110) 02/08/19 05:29 POC Glucose 158 mg/dL (70-110) H 02/08/19 16:58 Calcium 9.8 mg/dL (8.4-10.2) 02/08/19 05:29 Magnesium 2.1 mg/dL (1.6-2.3) 02/06/19 06:48 Total Bilirubin 0.6 mg/dL (0.2-1.3) 02/05/19 10:49 Direct Bilirubin 0.4 mg/dL (0.0-0.4) 02/05/19 10:49 Neonat Total Bilirubin Not Reportable 02/05/19 10:49 Neonat Direct Bilirubin Not Reportable 02/05/19 10:49 Neonat Indirect Bili Not Reportable 02/05/19 10:49 AST 26 U/L (14-36) 02/05/19 10:49 ALT 24 U/L (<35) 02/05/19 10:49 Alkaline Phosphatase 184 U/L (38-126) H 02/05/19 10:49 Total Protein 7.3 g/dL (6.3-8.2) 02/05/19 10:49 Albumin 4.1 g/dL (3.5-5.0) 02/05/19 10:49 Amylase 66 U/L (30-110) 02/08/19 05:29 Lipase 78.2 U/L (23-300) 02/08/19 05:29 Urine Color STRAW 02/05/19 14:34 Urine Appearance SLIGHTLY-CLOUDY 02/05/19 14:34 Urine pH 5.0 (5.0-9.0) 02/05/19 14:34 Ur Specific [place] 1.023 02/05/19 14:34 Urine Protein >=500 mg/dL (NEGATIVE) H 02/05/19 14:34 Urine Glucose (UA) >=500 mg/dL (NEGATIVE) H 02/05/19 14:34 Urine Ketones 20 mg/dL (NEGATIVE) H 02/05/19 14:34 Urine Blood SMALL (NEGATIVE) H 02/05/19 14:34 Urine Nitrite NEGATIVE (NEGATIVE) 02/05/19 14:34 Urine Bilirubin NEGATIVE (NEGATIVE) 02/05/19 14:34 Urine Urobilinogen NEGATIVE mg/dL (<2.0) 02/05/19 14:34 Ur Leukocyte Esterase NEGATIVE (NEGATIVE) 02/05/19 14:34 Urine WBC (Auto) 1 /HPF 02/05/19 14:34 Urine RBC (Auto) 1 /HPF 02/05/19 14:34 U Hyaline Cast (Auto) 1 /LPF 02/05/19 14:34 Urine Bacteria (Auto) TRACE /HPF 02/05/19 14:34 Squamous Epi Cells Auto 5 /HPF 02/05/19 14:34 Urine Mucus (Auto) RARE /LPF 02/05/19 14:34 Urine Ascorbic Acid NEGATIVE (NEGATIVE) 02/05/19 14:34 Impressions: Abdomen/Pelvis CT 02/06/19 16:43 IMPRESSION: Chronic pancreatitis. No no evidence of acute pancreatitis or other acute abdominal or pelvic findings. Stroke Is this a Stroke Patient?: No Acute Heart Failure - Is this a Heart Failure Patient?: No
== END 2019-02-08 17:31 | disposition home or self-care (01) | DRG 638 ==
LOC: ER 10:22 → EH 15:52 → 3S 17:25
PROVIDERS: ADMIT Internal Medicine; ATTEND Internal Medicine
DX: E10.10 Type 1 diabetes mellitus with ketoacidosis without coma (principal); K86.1 Other chronic pancreatitis; J44.9 Chronic obstructive pulmonary disease, unspecified; E10.22 Type 1 diabetes mellitus with diabetic chronic kidney disease; I12.9 Hypertensive chronic kidney disease with stage 1 through stage 4 chronic kidney disease, or unspecified chronic kidney disease; N18.9 Chronic kidney disease, unspecified; E78.00 Pure hypercholesterolemia, unspecified; G40.909 Epilepsy, unspecified, not intractable, without status epilepticus; F17.210 Nicotine dependence, cigarettes, uncomplicated; Z91.19 Patient's noncompliance with other medical treatment and regimen; Z79.4 Long term (current) use of insulin; Z79.899 Other long term (current) drug therapy
CPT/HCPCS: 36415; 74176; 80048; 80053; 81001; 82150; 82803; 82962; 83690; 83735; 85025; 96361; 96374; 96375; 99285; J0360; J1170; J1644; J1815; J2405; J7030; J7050; J7120; S0028

== ENCOUNTER 2019-02-16 16:42 | Emergency (ER) | payer MEDICAID ==
[2019-02-16] MEDS ORDERED: METOCLOPRAMIDE HCL INJ/PF 10 MG/2 ML SDV IV ONE (17:30)
[2019-02-16] MEDS ORDERED: NORMAL SALINE 1000 ML 1,000 ML IV ONE (17:30)
--- NOTE | 2019-02-16 17:30 | ER Document Report ---
ED Medical Screen (RME) - General Chief Complaint: Upper Abdominal Pain Stated Complaint: ABDOMINAL PAIN Time Seen by Provider: 02/16/19 17:24 Primary Care Provider: RONALD BARKER FNP-C [Primary Care Provider] - Follow up as needed TRAVEL OUTSIDE OF THE [place] IN LAST 30 DAYS: No - HPI Notes: 02/16/19 17:29 Patient is a 38-year-old female with a history of CKD, DM 1, hypertension, COPD, pancreatitis who presents complaining of epigastric abdominal pain over the past day or so with nausea and vomiting. Patient states that her sugar has been around 130 today. No fever. I have treated and performed a rapid initial assessment of this patient. A comprehensive ED assessment and evaluation of the patient, analysis of test results and completion of medical decision making process will be conducted by additional ED providers. PHYSICAL EXAMINATION: GENERAL: Well-appearing, well-nourished and in no acute distress. A&Ox4. Answers questions appropriately. - Related Data Allergies/Adverse Reactions: hydrocodone [From [place]] Allergy (Verified 02/16/19 17:21) morphine Allergy (Verified 02/16/19 17:21) prednisone Allergy (Verified 02/16/19 17:21) Edema Past Medical History - Social History Frequency of alcohol use: None Drug Abuse: Marijuana Family history: None - Past Medical History Cardiac Medical History: Reports: Hx Hypercholesterolemia, Hx Hypertension Denies: Hx Congestive Heart Failure, Hx Heart Attack Pulmonary Medical History: Reports: Hx COPD Denies: Hx Asthma Neurological Medical History: Reports: Hx Seizures. Denies: Hx Migraine Endocrine Medical History: Reports: Hx Diabetes Mellitus Type 1, Hx Diabetes Mellitus Type 2. Denies: Hx Hyperthyroidism, Hx Hypothyroidism Renal/ Medical History: Reports: Hx Renal Insufficiency. Denies: Hx End Stage Renal Disease, Hx Peritoneal Dialysis GI Medical History: Reports: Hx Pancreatitis. Denies: Hx Gastroesophageal Reflux Disease, Hx Hepatitis, Hx Hiatal Hernia Musculoskeltal Medical History: Denies Hx Arthritis Skin Medical History: Psychiatric Medical History: Reports: Hx Depression Denies: Hx Dementia Infectious Medical History: Denies: Hx Hepatitis Past Surgical History: Reports: Hx Section - x3, Hx Hysterectomy Physical Exam - Vital signs Vitals: Temp Pulse Resp BP Pulse Ox 99.0 F 95 18 130/89 H 100 02/16/19 17:00 02/16/19 17:00 02/16/19 17:00 02/16/19 17:00 02/16/19 17:00 Course - Vital Signs Vital signs: Temp Pulse Resp BP Pulse Ox 99.0 F 95 18 130/89 H 100 02/16/19 17:00 02/16/19 17:00 02/16/19 17:00 02/16/19 17:00 02/16/19 17:00 Doctor's Discharge - Discharge Referrals: RONALD BARKER FNP-C [Primary Care Provider] - Follow up as needed
[2019-02-16 18:10] LABS: ABSOLUTE EOSINOPHILS # (AUTO) 0.1 10^3/uL (0.0-0.6); ABSOLUTE LYMPHOCYTES (AUTO) 2.1 10^3/uL (0.5-4.7); ABSOLUTE MONOCYTES (AUTO) 0.5 10^3/uL (0.1-1.4); ABSOLUTE NEUT (AUTO) 3.7 10^3/uL (1.7-8.2); BASOPHILS % (AUTO) 0.4 % (0-2); EOSINOPHILS % (AUTO) 1.3 % (0-6); HEMATOCRIT 34.9 % (36.0-47.0); HEMOGLOBIN 11.6 g/dL (12.0-15.5); LYMPHOCYTES % (AUTO) 33.3 % (13-45); MEAN CORPUSCULAR HEMOGLOBIN 28.5 pg (27.0-33.4); MEAN CORPUSCULAR HGB CONC 33.2 g/dL (32.0-36.0); MEAN CORPUSCULAR VOLUME 86 fl (80-97); MONOCYTES % (AUTO) 7.5 % (3-13); PLATELET COUNT 328 10^3/uL (150-450); RED BLOOD COUNT 4.06 10^6/uL (3.72-5.28); RED CELL DISTRIBUTION WIDTH 14.3 % (11.5-14.0); SEGMENTED NEUTROPHILS % (AUTO) 57.5 % (42-78); TOTAL CELLS COUNTED % (AUTO) 100 %; WHITE BLOOD COUNT 6.4 10^3/uL (4.0-10.5)
[2019-02-16 18:15] LABS: APPEARANCE,URINE CLEAR; BILIRUBIN,URINE NEGATIVE (NEGATIVE); COLOR,URINE STRAW; GLUCOSE, URINE >=500 mg/dL (NEGATIVE); KETONES,URINE NEGATIVE (NEGATIVE); PROTEIN,URINE 100 mg/dL (NEGATIVE); URINE SPECIFIC GRAVITY 1.009; UROBILINOGEN,URINE NEGATIVE mg/dL (<2.0)
[2019-02-16 18:27] LABS: ALBUMIN 4.3 g/dL (3.5-5.0); ALKALINE PHOSPHATASE 118 U/L (38-126); ASPARTATE AMINO TRANSFERASE 25 U/L (14-36); BILIRUBIN,DIRECT 0.2 mg/dL (0.0-0.4); BILIRUBIN,TOTAL 0.3 mg/dL (0.2-1.3); BLOOD UREA NITROGEN 22 mg/dL (7-20); CALCIUM 9.7 mg/dL (8.4-10.2); CARBON DIOXIDE 27 mmol/L (22-30); CHLORIDE 106 mmol/L (98-107); GLUCOSE 89 mg/dL (75-110); POTASSIUM 3.8 mmol/L (3.6-5.0); TOTAL PROTEIN 7.7 g/dL (6.3-8.2)
[2019-02-16 18:28] LABS: ANION GAP 7 (5-19)
[2019-02-16] MEDS ORDERED: HALOPERIDOL LACTATE INJ 5 MG/1 ML VIAL IM ONE (19:54)
[2019-02-16] MEDS ORDERED: DIPHENHYDRAMINE HCL 50 MG/ML VIAL IM ONE (19:54)
[2019-02-16 23:11] VITALS: BP 164/89
--- NOTE | 2019-02-26 11:23 | ER Document Report ---
Entered by SARAH KELLY SCRIBE 02/16/191915 Acting as scribe for:EDGAR ELIZONDO IV, MD ED GI/ - General Chief Complaint: Abdominal Pain Stated Complaint: ABDOMINAL PAIN Time Seen by Provider: 02/16/19 17:24 Primary Care Provider: RONALD BARKER FNP-C [Primary Care Provider] - Follow up as needed Mode of Arrival: Ambulatory Information source: Patient Notes: This 38 year old female patient with chronic abdominal pain and frequent pancreatitis that presents to the emergency department today with complaints of upper abdominal pain with associated nausea and vomiting since yesterday. Patient denies EtOH usage. Patient does admit to marijuana usage. TRAVEL OUTSIDE OF THE [place] IN LAST 30 DAYS: No - Related Data Allergies/Adverse Reactions: hydrocodone [From [place]] Allergy (Verified 02/16/19 17:21) morphine Allergy (Verified 02/16/19 17:21) prednisone Allergy (Verified 02/16/19 17:21) Edema Past Medical History - General Information source: Patient - Social History Smoking Status: Current Every Day Smoker Cigarette use (# per day): Yes Frequency of alcohol use: None Drug Abuse: Marijuana Lives with: Family Family History: Reviewed & Not Pertinent, DM, Hypertension Patient has suicidal ideation: No Patient has homicidal ideation: No - Past Medical History Cardiac Medical History: Reports: Hx Hypercholesterolemia, Hx Hypertension Pulmonary Medical History: Reports: Hx COPD Neurological Medical History: Reports: Hx Seizures Endocrine Medical History: Reports: Hx Diabetes Mellitus Type 1, Hx Diabetes Mellitus Type 2 Renal/ Medical History: Reports: Hx Renal Insufficiency GI Medical History: Reports: Hx Pancreatitis Musculoskeletal Medical History: Skin Medical History: Psychiatric Medical History: Reports: Hx Depression Denies: Hx Dementia Infectious Medical History: Denies: Hx Hepatitis Past Surgical History: Reports: Hx Section - x3, Hx Hysterectomy Review of Systems - Review of Systems Constitutional: No symptoms reported EENT: No symptoms reported Cardiovascular: No symptoms reported Respiratory: No symptoms reported Gastrointestinal: See HPI, Abdominal pain, Nausea, Vomiting Genitourinary: No symptoms reported Female Genitourinary: No symptoms reported Musculoskeletal: No symptoms reported Skin: No symptoms reported Hematologic/Lymphatic: No symptoms reported Neurological/Psychological: No symptoms reported -: Yes All other systems reviewed and negative Physical Exam - Vital signs Vitals: Temp Pulse Resp BP Pulse Ox 99.0 F 95 18 130/89 H 100 02/16/19 17:00 02/16/19 17:00 02/16/19 17:00 02/16/19 17:00 02/16/19 17:00 Interpretation: Normal - General General appearance: Appears well, Alert - HEENT Head: Normocephalic, Atraumatic Eyes: Normal Pupils: PERRL - Respiratory Respiratory status: No respiratory distress Chest status: Nontender Breath sounds: Normal Chest palpation: Normal - Cardiovascular Rhythm: Regular Heart sounds: Normal auscultation Murmur: No - Abdominal Distension: No distension Bowel sounds: Normal Tenderness: Tender - ttp with palpation over the epigastrium, Guarding - minimal involuntary guarding of the upper abdomen Organomegaly: No organomegaly - Back Back: Normal, Nontender - Extremities General upper extremity: Normal inspection, Nontender, Normal color, Normal ROM, Normal temperature General lower extremity: Normal inspection, Nontender, Normal color, Normal ROM, Normal temperature, Normal weight bearing. No: Raheem's sign - Neurological Neuro grossly intact: Yes Cognition: Normal Orientation: AAOx4 El Coma Scale Eye Opening: Spontaneous Palmer Coma Scale Verbal: Oriented Palmer Coma Scale Motor: Obeys Commands Palmer Coma Scale Total: 15 Speech: Normal Motor strength normal: LUE, RUE, LLE, RLE Sensory: Normal - Psychological Associated symptoms: Normal affect, Normal mood - Skin Skin Temperature: Warm Skin Moisture: Dry Skin Color: Normal Course - Re-evaluation Re-evalutation: 02/16/19 22:35 PT IS TOLERATING PO ICE CHIPS AND IS IN NAD AT THIS TIME - Vital Signs Vital signs: Temp Pulse Resp BP Pulse Ox 97.7 F 86 18 164/89 H 100 02/16/19 23:09 02/16/19 23:09 02/16/19 23:09 02/16/19 23:09 02/16/19 23:09 - Laboratory Result Diagrams: 02/16/19 17:45 02/16/19 17:45 Laboratory results interpreted by me: 02/16/19 02/16/19 02/16/19 17:45 17:45 17:45 Hgb 11.6 L Hct 34.9 L RDW 14.3 H BUN 22 H Creatinine 1.48 H Est GFR ( Amer) 48 L Est GFR (MDRD) Non-Af 39 L Lipase 580.2 H Urine Protein 100 H Urine Glucose (UA) >=500 H Urine Blood SMALL H Discharge - Discharge Clinical Impression: Pancreatitis Qualifiers: Chronicity: chronic Pancreatitis type: other Qualified Code(s): K86.1 - Other chronic pancreatitis Condition: Good Disposition: HOME, SELF-CARE Additional Instructions: Return to the Emergency Department without delay if any worse. Pancreatitis Pancreatitis is an inflammation of the pancreas, an organ at the back of y our abdomen. The pancreas produces insulin and enzymes that digest your food. Pancreatitis can be caused by gallstones in the bile duct, by alcohol or viruses, or by excess fat or calcium in the blood stream. Occasionally, pancreatitis occurs when a stomach ulcer augustine through into the pancreas. We try to find the cause of pancreatitis, but some tests can't be done until the pancreas heals. The usual symptoms of pancreatitis are pain in the pit of the stomach that goes straight through to the back, vomiting, and low-grade fever. Severe cases require hospital admission, but many patients with mild pancreatitis do well at home. You will probably need medicine for pain and for vomiting. Sometimes we prescribe medicine to decrease stomach acid secretion and to decrease flow of p ancreatic juices. Start with a diet of clear liquids (soda pop, juices). When the pain is decreasing, you can add some simple starches (potato, toast, applesauce). Avoid proteins and fats until you are completely painfree. When you're better, your doctor may suggest treatment to prevent future pancreatitis (such as gallbladder removal). Avoid alcohol forever. Get immediate treatment for any future episodes. Contact your doctor at once or return here if you have increasing pain, sh ortness of breath, general swelling, increasing size of the abdomen, continued vomiting, muscle spasms, or other new symptoms. HOME CARE INSTRUCTIONS & INFORMATION: Thank you for choosing us for your medical needs. We hope you're satisfied with the care you received. After you leave, you must properly care for your problem and, at the same time, observe its progress. Any condition can change. Some illnesses can change rapidly over hours or days. If your condition worsens, return to the Emergency Department or see your physician promptly. ABOUT YOUR X-RAYS AND EKG'S: If you had an EKG or X-rays taken, they have been read by the Emergency Physician. The X-rays and EKG's will also be read by a Radiologist or Emissions Engineer within 24 hours. If discrepancies are noted, you will be notified by telephone. Please be certain the ED has a correct telephone number & address where you can be reached. Also, realize that some fractures or abnormalities do not show up on initial X-rays. If your symptoms continue, see your physician. ABOUT YOUR LABORATORY TEST: If you had laboratory tests, the results have been reviewed by the Emergency Physician. Some test results (for example cultures) may not be available for several days. You will be contacted if any test result shows you need additional treatment. Please be certain the ED has a correct telephone number and address where you can be reached. ABOUT YOUR MEDICATIONS: You will receive instructions on how to take your medic ine on the prescription label you receive. Additional information may be provided by the Pharmacy. If you have questions afterwards, call the ED for clarification or further instructions. Some prescribed medications may cause drowsiness. Do not perform tasks such as driving a car or operating machinery without consulting your Pharmacist. If you feel you need a refill of pain medication, your condition will need re-evaluation. Please do not call for a refill of any medication. ABOUT YOUR SIGNATURE: Signature of this document acknowledges to followin. Understanding that you received emergency treatment and that you may be released before al medical problems are known or treated. Please be certain the ED has a correct phone number & address where you can be reached. 2. Acknowledgement that you will arrange for follow-up care as recommended. 3. Authorization for the Emergency Physician to provide information to your follow-up Physician in order to maximize your care. AT ANY TIME, IF YOUR SYMPTOMS CHANGE SIGNIFICANTLY OR WORSEN OR YOU DEVELOP NEW SYMPTOMS, RETURN TO THE EMERGENCY DEPARTMENT IMMEDIATELY FOR RE-EVALUATION. OUR GOAL IS TO PROVIDE EXCELLENT MEDICAL CARE! WE HOPE THAT WE HAVE MET YOUR EXPECTATIONS DURING YOUR EMERGENCY DEPARTMENT VISIT AND THAT YOU FEEL YOU HAVE RECEIVED EXCELLENT CARE! Referrals: RONALD BARKER, STOCK WORKER-C [Primary Care Provider] - Follow up as needed I personally performed the services described in the documentation, reviewed and edited the documentation which was dictated to the scribe in my presence, and it accurately records my words and actions.
== END 2019-02-16 22:59 | disposition home or self-care (01) ==
LOC: ER 16:42
DX: K86.1 Other chronic pancreatitis (principal); R10.816 Epigastric abdominal tenderness; R10.13 Epigastric pain; R11.2 Nausea with vomiting, unspecified; F17.210 Nicotine dependence, cigarettes, uncomplicated; I10 Essential (primary) hypertension; J44.9 Chronic obstructive pulmonary disease, unspecified; E11.9 Type 2 diabetes mellitus without complications; F12.10 Cannabis abuse, uncomplicated; Z88.6 Allergy status to analgesic agent; Z88.5 Allergy status to narcotic agent; Z88.8 Allergy status to other drugs, medicaments and biological substances
CPT/HCPCS: 99284; 96372; 36415; 83690; 85025; 81025; 80053; 81001; J1200; J1630

== ENCOUNTER 2019-03-08 04:40 | Emergency (ER) | payer MEDICAID ==
[2019-03-08] MEDS ORDERED: ONDANSETRON HCL INJ/PF 4 MG/2 ML SDV IV ONE (04:58)
[2019-03-08] MEDS ORDERED: RINGERS SOLUTION,LACTATED 1,000 ML IV PRN (05:01)
[2019-03-08] MEDS ORDERED: FENTANYL CITRATE INJ/PF 100 MCG/2 ML AMPUL IV ONE (05:02)
[2019-03-08] MEDS ORDERED: HALOPERIDOL LACTATE INJ 5 MG/1 ML VIAL IV ONE (05:04)
[2019-03-08 05:08] LABS: ABSOLUTE BASOPHILS # (AUTO) 0.1 10^3/uL (0.0-0.2); ABSOLUTE EOSINOPHILS # (AUTO) 0.1 10^3/uL (0.0-0.6); ABSOLUTE LYMPHOCYTES (AUTO) 3.2 10^3/uL (0.5-4.7); ABSOLUTE MONOCYTES (AUTO) 0.6 10^3/uL (0.1-1.4); ABSOLUTE NEUT (AUTO) 5.5 10^3/uL (1.7-8.2); BASOPHILS % (AUTO) 0.8 % (0-2); EOSINOPHILS % (AUTO) 0.6 % (0-6); HEMATOCRIT 36.4 % (36.0-47.0); LYMPHOCYTES % (AUTO) 33.8 % (13-45); MEAN CORPUSCULAR HEMOGLOBIN 28.2 pg (27.0-33.4); MEAN CORPUSCULAR VOLUME 86 fl (80-97); MONOCYTES % (AUTO) 5.9 % (3-13); PLATELET COUNT 352 10^3/uL (150-450); RED BLOOD COUNT 4.25 10^6/uL (3.72-5.28); RED CELL DISTRIBUTION WIDTH 14.9 % (11.5-14.0); SEGMENTED NEUTROPHILS % (AUTO) 58.9 % (42-78); TOTAL CELLS COUNTED % (AUTO) 100 %; WHITE BLOOD COUNT 9.4 10^3/uL (4.0-10.5)
[2019-03-08 05:28] LABS: ALBUMIN 4.2 g/dL (3.5-5.0); ALKALINE PHOSPHATASE 155 U/L (38-126); ANION GAP 9 (5-19); ASPARTATE AMINO TRANSFERASE 36 U/L (14-36); BILIRUBIN,TOTAL 0.5 mg/dL (0.2-1.3); BLOOD UREA NITROGEN 24 mg/dL (7-20); CALCIUM 9.7 mg/dL (8.4-10.2); CARBON DIOXIDE 27 mmol/L (22-30); CHLORIDE 103 mmol/L (98-107); GLUCOSE 326 mg/dL (75-110); POTASSIUM 4.7 mmol/L (3.6-5.0); TOTAL PROTEIN 7.2 g/dL (6.3-8.2)
[2019-03-08 05:30] LABS: ALCOHOL < 10 mg/dL (NONE DETECTED)
[2019-03-08] MEDS ORDERED: HYDROMORPHONE HCL INJ/PF 2 MG/ML AMPULE IV ONE (06:52)
[2019-03-08] MEDS ORDERED: PROCHLORPERAZINE EDISYLATE INJ 10 MG/2 ML VIAL IV ONE (06:53)
[2019-03-08 07:04] LABS: APPEARANCE,URINE CLOUDY; BILIRUBIN,URINE NEGATIVE (NEGATIVE); COLOR,URINE YELLOW; GLUCOSE, URINE >=500 mg/dL (NEGATIVE); KETONES,URINE TRACE mg/dL (NEGATIVE); LEUKOCYTE ESTERASE,URINE NEGATIVE (NEGATIVE); NITRITE,URINE POSITIVE (NEGATIVE); PROTEIN,URINE >=500 mg/dL (NEGATIVE); URINE SPECIFIC GRAVITY 1.014; UROBILINOGEN,URINE NEGATIVE mg/dL (<2.0)
[2019-03-08 07:20] LABS: URINE AMPHETAMINES SCREEN NEGATIVE; URINE BARBITURATES SCREEN NEGATIVE; URINE BENZODIAZEPINES SCREEN NEGATIVE; URINE COCAINE SCREEN NEGATIVE; URINE METHADONE SCREEN NEGATIVE; URINE PHENCYCLIDINE SCREEN NEGATIVE
[2019-03-08 07:22] LABS: URINE MARIJUANA (THC) SCREEN UNCONFIRMED POSITIVE
--- NOTE | 2019-03-08 07:27 | ER Document Report ---
ED General - General Chief Complaint: Abdominal Pain Stated Complaint: ABDOMINAL PAIN Time Seen by Provider: 03/08/19 06:33 Primary Care Provider: RONALD BARKER FNP-C [Primary Care Provider] - Follow up as needed Mode of Arrival: Stretcher Notes: 38-year-old black female arrives with chief complaint of acute epigastric pain periumbilical pain after having a pancreas attack and began vomiting paroxysmal A. She tried smoking marijuana but this did not help her abdominal pain which it usually helps. Patient denies any diarrhea or constipation or trauma fever chills cough cold and is intolerant of foods. She has held some liquids down. Her tongue is moist lips are dry. See nurses note for pain scale. TRAVEL OUTSIDE OF THE [place] IN LAST 30 DAYS: No - HPI Onset: Yesterday Onset/Duration: Sudden Quality of pain: Sharp Severity: Severe Pain Level: 5 Associated symptoms: None Exacerbated by: Movement, Food Relieved by: Other - Marijuana improves her pain - Related Data Allergies/Adverse Reactions: hydrocodone [From [place]] Allergy (Verified 02/16/19 17:21) morphine Allergy (Verified 02/16/19 17:21) prednisone Allergy (Verified 02/16/19 17:21) Edema Home Medications: lantus. novolog. lisinopril. metoprolol Past Medical History - Social History Smoking Status: Current Every Day Smoker Cigarette use (# per day): Yes Chew tobacco use (# tins/day): No Smoking Education Provided: Yes Frequency of alcohol use: Rare Drug Abuse: Marijuana Lives with: Family Family History: Reviewed & Not Pertinent, DM, Hypertension Patient has suicidal ideation: No Patient has homicidal ideation: No - Past Medical History Cardiac Medical History: Reports: Hx Hypercholesterolemia, Hx Hypertension Denies: Hx Congestive Heart Failure, Hx Heart Attack Pulmonary Medical History: Reports: Hx COPD Denies: Hx Asthma Neurological Medical History: Reports: Hx Seizures. Denies: Hx Migraine Endocrine Medical History: Reports: Hx Diabetes Mellitus Type 1, Hx Diabetes Mellitus Type 2. Denies: Hx Hyperthyroidism, Hx Hypothyroidism Renal/ Medical History: Reports: Hx Renal Insufficiency. Denies: Hx End Stage Renal Disease, Hx Peritoneal Dialysis GI Medical History: Reports: Hx Pancreatitis. Denies: Hx Gastroesophageal R eflux Disease, Hx Hepatitis, Hx Hiatal Hernia Musculoskeletal Medical History: Denies Hx Arthritis Skin Medical History: Psychiatric Medical History: Reports: Hx Depression Denies: Hx Dementia Infectious Medical History: Denies: Hx Hepatitis Past Surgical History: Reports: Hx Section - x3, Hx Hysterectomy Review of Systems - Review of Systems Constitutional: Malaise EENT: No symptoms reported Cardiovascular: No symptoms reported Respiratory: No symptoms reported Gastrointestinal: Abdominal pain, Vomiting Genitourinary: No symptoms reported Female Genitourinary: No symptoms reported Musculoskeletal: No symptoms reported Skin: No symptoms reported Hematologic/Lymphatic: No symptoms reported Neurological/Psychological: No symptoms reported Physical Exam - Vital signs Vitals: Temp Resp BP Pulse Ox 98.2 F 23 H 192/121 H 100 03/08/19 04:41 03/08/19 04:41 03/08/19 04:41 03/08/19 04:41 Interpretation: Hypertensive - General General appearance: Appears well In distress: Moderate - HEENT Head: Normocephalic Eyes: Normal Conjunctiva: Normal Cornea: Normal Extraocular movements intact: Yes Eyelashes: Normal Pupils: PERRL Sinus: Normal Nasal: Normal Mouth/Lips: Normal Mucous membranes: Normal Pharynx: Normal Neck: Normal - Respiratory Respiratory status: No respiratory distress Chest status: Nontender Breath sounds: Normal Chest palpation: Normal - Cardiovascular Rhythm: Regular Heart sounds: Normal auscultation Murmur: No Friction rub: No Justin's crunch: No - Abdominal Inspection: Normal Distension: No distension Bowel sounds: Hyperactive Tenderness: Tender, Other - Epigastric and stephanie-umbilical - Back Back: Normal - Extremities General upper extremity: Normal inspection General lower extremity: Normal inspection - Neurological Neuro grossly intact: Yes Cognition: Normal Orientation: AAOx4 Quentin Coma Scale Eye Opening: Spontaneous Quentin Coma Scale Verbal: Oriented El Coma Scale Motor: Obeys Commands Quentin Coma Scale Total: 15 Speech: Normal Cranial nerves: Normal Cerebellar coordination: Normal - Psychological Associated symptoms: Normal affect - Skin Skin Temperature: Warm Skin Moisture: Dry Course - Vital Signs Vital signs: Temp Pulse Resp BP Pulse Ox 98.2 F 9 L 152/101 H 100 03/08/19 04:41 03/08/19 08:30 03/08/19 08:30 03/08/19 08:30 - Laboratory Result Diagrams: 03/08/19 04:45 03/08/19 04:45 Laboratory results interpreted by me: 03/08/19 03/08/19 03/08/19 04:45 04:45 06:00 RDW 14.9 H BUN 24 H Creatinine 1.76 H Est GFR ( Amer) 39 L Est GFR (MDRD) Non-Af 32 L Glucose 326 H Lactic Acid 2.3 H Alkaline Phosphatase 155 H Lipase 391.8 H Urine Protein Urine Glucose (UA) Urine Ketones Urine Blood Urine Nitrite 03/08/19 06:48 RDW BUN Creatinine Est GFR ( Amer) Est GFR (MDRD) Non-Af Glucose Lactic Acid Alkaline Phosphatase Lipase Urine Protein >=500 H Urine Glucose (UA) >=500 H Urine Ketones TRACE H Urine Blood SMALL H Urine Nitrite POSITIVE H - Diagnostic Test Radiology reviewed: Reports reviewed Critical Care Note - Critical Care Note Total time excluding time spent on procedures (mins): 90 Comments: Patient much improved after medications and CT revealed chronic problem nothing acute at this time. Discharge - Discharge Clinical Impression: Intractable nausea and vomiting Pancreatitis Qualifiers: Chronicity: chronic Pancreatitis type: unspecified pancreatitis type Qualified Code(s): K86.1 - Other chronic pancreatitis Abdominal pain Qualifiers: Abdominal location: unspecified location Qualified Code(s): R10.9 - Unspecified abdominal pain Hypertension Qualifiers: Hypertension type: unspecified Qualified Code(s): I10 - Essential (primary) hypertension Condition: Good Disposition: HOME, SELF-CARE Instructions: Abdominal Pain ([facility]) Additional Instructions: Follow-up with personal doctor return to ER as needed take medicines as directed encourage fluids Prescriptions: Prochlorperazine Maleate [Compazine 25 Mg Supp.Rect] 25 mg TN TID 5 Days #5 supp.rect Referrals: RONALD BARKER FNP-C [Primary Care Provider] - Follow up as needed
[2019-03-08] MEDS ORDERED: CLONIDINE HCL 0.2 MG TABLET PO ONE (07:28)
--- NOTE | 2019-03-08 08:52 | RADIOLOGY REPORT (SQ) ---
EXAM DESCRIPTION: CT ABD/PELVIS WITH IV ONLY COMPLETED DATE/TIME: 03/08/2019 7:30 am REASON FOR STUDY: pain COMPARISON: 7 [address] CT abdomen and pelvis exams since 12/09/2017, most recently 01/09/2019. TECHNIQUE: CT scan of the abdomen and pelvis performed using helical scanning technique with dynamic intravenous contrast injection. No oral contrast. Images reviewed with lung, soft tissue, and bone windows. Reconstructed coronal and sagittal MPR images reviewed. Delayed images for evaluation of the urinary system also acquired. All images stored on PACS. All CT scanners at this facility use dose modulation, iterative reconstruction, and/or weight based d osing when appropriate to reduce radiation dose to as low as reasonably achievable (ALARA). [facility]: Dose Right [facility]: CareDose [facility]: Dose Right [facility]: Teradose 4D [facility]: [employer] CONTRAST TYPE AND DOSE: contrast/concentration: Isovue 300.00 mg/ml; Total Contrast Delivered: 73.0 ml; Total Saline Delivered: 58.0 ml RENAL FUNCTION: GFR 39, creatinine 1.8 RADIATION DOSE: CT Rad equipment meets quality standard of care and radiation dose reduction techniq ues were employed. CTDIvol: 4.9 - 5.4 mGy. DLP: 545 mGy-cm.. LIMITATIONS: No oral contrast FINDINGS: LOWER CHEST: No significant findings. No nodules or infiltrates. LIVER: Normal size. No masses. No dilated ducts. SPLEEN: Normal size. No focal lesions. PANCREAS: There is diffuse calcifications throughout the pancreatic parenchyma, unchanged from prior studies. Persistent dilatation of pancreatic duct. No peripancreatic fluid or retroperitoneal infla mmation on today's study. GALLBLADDER: No identified stones by CT criteria. No inflammatory changes to suggest cholecystitis. ADRENAL GLANDS: No significant masses or asymmetry. RIGHT KIDNEY AND URETER: No solid masses. No significant calcifications. No hydronephrosis or hyd roureter. LEFT KIDNEY AND URETER: No solid masses. No significant calcifications. No hydronephrosis or hydr oureter. AORTA AND VESSELS: No aneurysm. No dissection. Renal arteries, SMA, celiac without stenosis. RETROPERITONEUM: No retroperitoneal adenopathy, hemorrhage or masses. BOWEL AND PERITONEAL CAVITY: No masses or inflammatory changes. No free fluid or peritoneal masses. APPENDIX: Normal. PELVIS: No mass. No free fluid. Normal bladder. Normal size female pelvic organs. ABDOMINAL WALL: No masses. No hernias. BONES: No significant or acute findings. OTHER: No other significant finding. IMPRESSION: Stable pancreatic calcifications. No acute findings TECHNICAL DOCUMENTATION: JOB ID: [id number] Quality ID # [id number]: Final reports with documentation of one or more dose reduction techniques (e.g., Au tomated exposure control, adjustment of the mA and/or kV according to patient size, use of iterative reconstruction technique) 2010 [employer]- All Rights Reserved Reading location - [facility]workstation [facility]: [email or web address]
[2019-03-08 10:10] VITALS: BP 141/97
== END 2019-03-08 10:29 | disposition home or self-care (01) ==
LOC: ER 04:40
DX: K86.1 Other chronic pancreatitis (principal); R11.2 Nausea with vomiting, unspecified; R10.13 Epigastric pain; R10.33 Periumbilical pain; R53.81 Other malaise; I10 Essential (primary) hypertension; F17.210 Nicotine dependence, cigarettes, uncomplicated; E78.00 Pure hypercholesterolemia, unspecified; J44.9 Chronic obstructive pulmonary disease, unspecified; E11.9 Type 2 diabetes mellitus without complications; Z88.6 Allergy status to analgesic agent; Z90.710 Acquired absence of both cervix and uterus
CPT/HCPCS: 36415; 80307 ×2; 83605; 83690; 85025; 80053; 81001; 74177; J3490; J3010; J1630; J1170; J0780; J2405; J7120; 96361; 96374; 96375; 99291; 99292

== ENCOUNTER 2019-03-18 12:31 | Emergency (ER) | payer MEDICAID ==
[2019-03-18] MEDS ORDERED: HYDROMORPHONE HCL INJ/PF 2 MG/ML AMPULE IV ONE (12:42)
[2019-03-18] MEDS ORDERED: ONDANSETRON HCL INJ/PF 4 MG/2 ML SDV IV ONE (12:42)
[2019-03-18] MEDS: NORMAL SALINE 1000 ML 1,000 ML IV PRN ×2 (12:51→14:00)
[2019-03-18 12:53] LABS: ABSOLUTE BASOPHILS # (AUTO) 0.1 10^3/uL (0.0-0.2); ABSOLUTE EOSINOPHILS # (AUTO) 0.1 10^3/uL (0.0-0.6); ABSOLUTE LYMPHOCYTES (AUTO) 2.1 10^3/uL (0.5-4.7); ABSOLUTE MONOCYTES (AUTO) 0.6 10^3/uL (0.1-1.4); BASOPHILS % (AUTO) 0.6 % (0-2); EOSINOPHILS % (AUTO) 0.9 % (0-6); HEMATOCRIT 34.2 % (36.0-47.0); HEMOGLOBIN 11.6 g/dL (12.0-15.5); LYMPHOCYTES % (AUTO) 23.5 % (13-45); MEAN CORPUSCULAR HEMOGLOBIN 28.9 pg (27.0-33.4); MEAN CORPUSCULAR HGB CONC 33.9 g/dL (32.0-36.0); MEAN CORPUSCULAR VOLUME 85 fl (80-97); MONOCYTES % (AUTO) 6.7 % (3-13); PLATELET COUNT 308 10^3/uL (150-450); RED CELL DISTRIBUTION WIDTH 14.7 % (11.5-14.0); SEGMENTED NEUTROPHILS % (AUTO) 68.3 % (42-78); TOTAL CELLS COUNTED % (AUTO) 100 %; WHITE BLOOD COUNT 8.8 10^3/uL (4.0-10.5)
[2019-03-18 12:54] LABS: VENOUS BLOOD BASE EXCESS -1.7 mmol/L; VENOUS BLOOD HCO3 24.7 mmol/L (20-32); VENOUS BLOOD PCO2 48.6 mmHg (35-63); VENOUS BLOOD PH 7.32 (7.30-7.42)
[2019-03-18 13:11] LABS: ALBUMIN 3.8 g/dL (3.5-5.0); ALKALINE PHOSPHATASE 141 U/L (38-126); ANION GAP 9 (5-19); ASPARTATE AMINO TRANSFERASE 21 U/L (14-36); BILIRUBIN,DIRECT 0.1 mg/dL (0.0-0.4); BILIRUBIN,TOTAL 0.5 mg/dL (0.2-1.3); BLOOD UREA NITROGEN 25 mg/dL (7-20); CALCIUM 9.3 mg/dL (8.4-10.2); CARBON DIOXIDE 25 mmol/L (22-30); CHLORIDE 101 mmol/L (98-107); POTASSIUM 4.4 mmol/L (3.6-5.0); TOTAL PROTEIN 6.5 g/dL (6.3-8.2)
[2019-03-18 13:27] LABS: GLUCOSE 418 mg/dL (75-110)
[2019-03-18 13:47] LABS: APPEARANCE,URINE SLIGHTLY-CLOUDY; BILIRUBIN,URINE NEGATIVE (NEGATIVE); COLOR,URINE YELLOW; GLUCOSE, URINE >=500 mg/dL (NEGATIVE); KETONES,URINE 20 mg/dL (NEGATIVE); LEUKOCYTE ESTERASE,URINE NEGATIVE (NEGATIVE); NITRITE,URINE POSITIVE (NEGATIVE); PROTEIN,URINE 100 mg/dL (NEGATIVE); URINE SPECIFIC GRAVITY 1.017; UROBILINOGEN,URINE NEGATIVE mg/dL (<2.0)
[2019-03-18] MEDS ORDERED: INSULIN REG, HUMAN 100 UNIT/ML 3 ML VIAL (PYX) IV ONE (14:49)
[2019-03-18] MEDS ORDERED: SULFAMETHOXAZOLE/TRIMETHOPRIM 800-160 MG TABLET PO ONE (14:50)
--- NOTE | 2019-03-18 14:59 | ER Document Report ---
ED General - General Chief Complaint: High Blood Sugar Stated Complaint: BLOOD SUGAR PROBLEM Time Seen by Provider: 03/18/19 12:39 Primary Care Provider: RONALD BARKER FNP-C [Primary Care Provider] - Follow up as needed TRAVEL OUTSIDE OF THE [place] IN LAST 30 DAYS: No - HPI Notes: Patient is a 38-year-old female who presents emergency department for evaluation. Initially she was brought and is unresponsive. She was pulled from the car. Upon arrival in the room, she woke to sternal rub. She states she is been having abdominal pain with associated nausea starting yesterday. No emesis. She states she took her Lantus this morning but denies taking any of her other medications. Currently she has a cramping abdominal pain that is global in nature. Nothing seems to make it better or worse. She has had nausea but no emesis. She does complain of urinary frequency. Normal bowel movements. - Related Data Allergies/Adverse Reactions: hydrocodone [From [place]] Allergy (Verified 03/18/19 12:42) morphine Allergy (Verified 03/18/19 12:42) Penicillins Allergy (Verified 03/18/19 12:42) prednisone Allergy (Verified 03/18/19 12:42) Edema Home Medications: List reviewed, please see notes Past Medical History - General Information source: Patient - Social History Smoking Status: Current Every Day Smoker Chew tobacco use (# tins/day): No Frequency of alcohol use: None Drug Abuse: Marijuana Family History: Reviewed & Not Pertinent, DM, Hypertension Patient has suicidal ideation: No Patient has homicidal ideation: No - Past Medical History Cardiac Medical History: Reports: Hx Hypercholesterolemia, Hx Hypertension Denies: Hx Congestive Heart Failure, Hx Heart Attack Pulmonary Medical History: Reports: Hx COPD Denies: Hx Asthma Neurological Medical History: Reports: Hx Seizures. Denies: Hx Migraine Endocrine Medical History: Reports: Hx Diabetes Mellitus Type 1, Hx Diabetes Mellitus Type 2. Denies: Hx Hyperthyroidism, Hx Hypothyroidism Renal/ Medical History: Reports: Hx Renal Insufficiency. Denies: Hx End Stage Renal Disease, Hx Peritoneal Dialysis GI Medical History: Reports: Hx Pancreatitis. Denies: Hx Gastroesophageal Reflux Disease, Hx Hepatitis, Hx Hiatal Hernia Musculoskeletal Medical History: Denies Hx Arthritis Skin Medical History: Psychiatric Medical History: Reports: Hx Depression Denies: Hx Dementia Infectious Medical History: Denies: Hx Hepatitis Past Surgical History: Reports: Hx Section - x3, Hx Hysterectomy Review of Systems - Review of Systems Constitutional: See HPI EENT: No symptoms reported Cardiovascular: No symptoms reported Respiratory: No symptoms reported Gastrointestinal: See HPI Genitourinary: No symptoms reported Musculoskeletal: No symptoms reported Skin: No symptoms reported Neurological/Psychological: No symptoms reported - Is Physical Exam - Vital signs Vitals: Resp BP Pulse Ox 11 L 195/112 H 97 03/18/19 12:37 03/18/19 12:37 03/18/19 12:37 - Notes Notes: Is a 38-year-old female who appears her stated age. Initially she was unresponsive, became awake and alert, nondrowsy to sternal rub. She became tearful, complaining of abdominal pain initially. Vital signs reviewed, please refer to chart. Head is normocephalic, atraumatic. Pupils equal round, reactive to light. Neck is supple without meningismus. Heart is regular rate and rhythm. Lungs are clear to auscultation bilaterally. Abdomen is soft, globally tender without rebound or guarding, normoactive bowel sounds throughout. Extremities without cyanosis, clubbing. Posterior calves are nontender. Peripheral pulses are equal. Skin is warm and dry. Patient is awake, alert, neurological exam is nonfocal. Course - Re-evaluation Re-evalutation: 03/18/19 14:58 Patient presents to the emergency department for evaluation. Initially she was unresponsive, but awake and alert after sternal rub and never had any issues with level of consciousness. She is markedly hypertensive but she did not take her antihypertension medications this morning. Laboratory investigations revealed marked hyperglycemia as well as acute on chronic renal issues, but she is not acidotic. She has no anion gap. She remained awake and alert. Her urinalysis did reveal a nitrate positive urinary tract infection. She is given a dose of Bactrim here. I will send her home with a prescription for the same. The importance of taking her antihypertensive medications upon arriving home was stressed to the patient, she voiced understanding. She is to follow-up closely with primary care this week, return to the emergency department with worsening or new concerning symptoms of any sort. - Vital Signs Vital signs: Temp Pulse Resp BP Pulse Ox 98.8 F 16 213/126 H 98 03/18/19 13:07 03/18/19 14:30 03/18/19 14:30 03/18/19 14:30 - Laboratory Result Diagrams: 03/18/19 12:37 03/18/19 12:37 Laboratory results interpreted by me: 03/18/19 03/18/19 03/18/19 12:37 12:37 13:23 Hgb 11.6 L Hct 34.2 L RDW 14.7 H Sodium 135.4 L BUN 25 H Creatinine 2.19 H Est GFR ( Amer) 30 L Est GFR (MDRD) Non-Af 25 L Glucose 418 H* Alkaline Phosphatase 141 H Lipase 488.9 H Urine Protein 100 H Urine Glucose (UA) >=500 H Urine Ketones 20 H Urine Blood SMALL H Urine Nitrite POSITIVE H - EKG Interpretation by Me Additional EKG results interpreted by me: 03/18/19 14:59 Sinus mechanism with rate 97 bpm. Normal axis and intervals. No acute ST changes concerning for ischemia or infarction. Discharge - Discharge Clinical Impression: IDDM (insulin dependent diabetes mellitus), Hyperglycemia, Abnormal renal function UTI (urinary tract infection) Qualifiers: Encounter type: initial encounter Condition: Stable Disposition: HOME, SELF-CARE Instructions: Urinary Tract Infection ([facility]), Trimethoprim-Sulfa ([facility]) Additional Instructions: Take all of the antibiotic as prescribed until gone, starting this evening. Rest, stay well-hydrated. Please take your blood pressure medications as prescribed when you return home. Please follow-up with your primary care provider. Your renal function has worsened slightly. This is likely reversible, but it is advisable for you to follow-up with nephrology as well. Return to the emergency department with worsening or new concerning symptoms of any sort. Referrals: RONALD BARKER FNP-C [Primary Care Provider] - Follow up as needed
[2019-03-18 15:25] VITALS: BP 179/118
--- NOTE | 2019-03-18 20:37 | EKG REPORT ---
SEVERITY:- ABNORMAL ECG - SINUS RHYTHM PROBABLE LVH : Confirmed by: Ana Borja MD 18-Mar-2019 20:36:02
== END 2019-03-18 15:25 | disposition home or self-care (01) ==
LOC: ER 12:31
DX: E11.65 Type 2 diabetes mellitus with hyperglycemia (principal); Z79.4 Long term (current) use of insulin; N39.0 Urinary tract infection, site not specified; N25.9 Disorder resulting from impaired renal tubular function, unspecified; R10.84 Generalized abdominal pain; R10.817 Generalized abdominal tenderness; R11.0 Nausea; R41.82 Altered mental status, unspecified; F12.10 Cannabis abuse, uncomplicated; I10 Essential (primary) hypertension; F17.200 Nicotine dependence, unspecified, uncomplicated; J44.9 Chronic obstructive pulmonary disease, unspecified; Z88.6 Allergy status to analgesic agent; Z88.5 Allergy status to narcotic agent; Z88.0 Allergy status to penicillin; Z88.8 Allergy status to other drugs, medicaments and biological substances
CPT/HCPCS: 93005; 36415; 82962; 83690; 84703; 85025; 80053; 81001; 82803; 93010; J1170; J1815; J2405; J3490; J7030; 96361; 96374; 96375; 99285

== ENCOUNTER 2019-03-20 15:36 | Emergency (ER) | payer MEDICAID ==
--- NOTE | 2019-03-20 15:46 | ER Document Report ---
ED Medical Screen (RME) - General Chief Complaint: Unresponsive Stated Complaint: STOMACH PAIN Time Seen by Provider: 03/20/19 15:43 Primary Care Provider: RONALD BARKER FNP-C [Primary Care Provider] - Follow up as needed Mode of Arrival: Wheelchair Information source: Friend Notes: 38-year-old female with history of diabetes and pancreatitis presents unresponsive to the emergency department. Patient was placed in a wheelchair out of the car and brought back to a room immediately. Patient is now starting to respond, tearful. Complains of abdominal pain. Accu-Chek completed 187. I have greeted and performed a rapid initial assessment of this patient. A comprehensive ED assessment and evaluation of the patient, analysis of test results and completion of the medical decision making process will be conducted by additional ED providers. TRAVEL OUTSIDE OF THE [place] IN LAST 30 DAYS: No - Related Data Allergies/Adverse Reactions: hydrocodone [From [place]] Allergy (Verified 03/18/19 12:42) morphine Allergy (Verified 03/18/19 12:42) Penicillins Allergy (Verified 03/18/19 12:42) prednisone Allergy (Verified 03/18/19 12:42) Edema Past Medical History - Social History Family history: None - Past Medical History Cardiac Medical History: Reports: Hx Hypercholesterolemia, Hx Hypertension Denies: Hx Congestive Heart Failure, Hx Heart Attack Pulmonary Medical History: Reports: Hx COPD Denies: Hx Asthma Neurological Medical History: Reports: Hx Seizures. Denies: Hx Migraine Endocrine Medical History: Reports: Hx Diabetes Mellitus Type 1, Hx Diabetes Mellitus Type 2. Denies: Hx Hyperthyroidism, Hx Hypothyroidism Renal/ Medical History: Reports: Hx Renal Insufficiency. Denies: Hx End Stage Renal Disease, Hx Peritoneal Dialysis GI Medical History: Reports: Hx Pancreatitis. Denies: Hx Gastroesophageal Reflux Disease, Hx Hepatitis, Hx Hiatal Hernia Musculoskeltal Medical History: Denies Hx Arthritis Skin Medical History: Psychiatric Medical History: Reports: Hx Depression Denies: Hx Dementia Infectious Medical History: Denies: Hx Hepatitis Past Surgical History: Reports: Hx Section - x3, Hx Hysterectomy Course - Laboratory Result Diagrams: 03/20/19 15:46 03/20/19 15:46 Doctor's Discharge - Discharge Referrals: RONALD BARKER FNP-C [Primary Care Provider] - Follow up as needed
--- NOTE | 2019-03-20 16:23 | ER Document Report ---
ED General - General Chief Complaint: Abdominal Pain Stated Complaint: STOMACH PAIN Time Seen by Provider: 03/20/19 15:43 Primary Care Provider: RONALD BARKER FNP-C [Primary Care Provider] - Follow up as needed Mode of Arrival: Wheelchair TRAVEL OUTSIDE OF THE [place] IN LAST 30 DAYS: No - HPI Patient complains to provider of: adominal pain/ passing out Onset: Just prior to arrival Onset/Duration: Gradual Severity: Severe Pain Level: 5 Context: 38 year old female arrives with several passing out spells due to abdominal pain. She has a h/o DM, chronic pancreatits, and htn with chronic kidney disease. She tells me she has passed out several times today due to the pain. No fever or chills. Surgical menopause distantly. - Related Data Allergies/Adverse Reactions: hydrocodone [From [place]] Allergy (Verified 03/18/19 12:42) morphine Allergy (Verified 03/18/19 12:42) Penicillins Allergy (Verified 03/18/19 12:42) prednisone Allergy (Verified 03/18/19 12:42) Edema Past Medical History - General Information source: Friend - Social History Smoking Status: Unknown if Ever Smoked Family History: Reviewed & Not Pertinent, DM, Hypertension Patient has suicidal ideation: No Patient has homicidal ideation: No - Past Medical History Cardiac Medical History: Reports: Hx Hypercholesterolemia, Hx Hypertension Denies: Hx Congestive Heart Failure, Hx Heart Attack Pulmonary Medical History: Reports: Hx COPD Denies: Hx Asthma Neurological Medical History: Reports: Hx Seizures. Denies: Hx Migraine Endocrine Medical History: Reports: Hx Diabetes Mellitus Type 1, Hx Diabetes Yasmine litus Type 2. Denies: Hx Hyperthyroidism, Hx Hypothyroidism Renal/ Medical History: Reports: Hx Renal Insufficiency. Denies: Hx End Stage Renal Disease, Hx Peritoneal Dialysis GI Medical History: Reports: Hx Pancreatitis. Denies: Hx Gastroesophageal Reflux Disease, Hx Hepatitis, Hx Hiatal Hernia Musculoskeletal Medical History: Denies Hx Arthritis Skin Medical History: Psychiatric Medical History: Reports: Hx Depression Denies: Hx Dementia Infectious Medical History: Denies: Hx Hepatitis Past Surgical History: Reports: Hx Section - x3, Hx Hysterectomy Review of Systems - Review of Systems Constitutional: Weakness EENT: No symptoms reported Cardiovascular: No symptoms reported Respiratory: No symptoms reported Gastrointestinal: See HPI, Nausea, Vomiting Genitourinary: No symptoms reported Female Genitourinary: No symptoms reported Musculoskeletal: No symptoms reported Skin: No symptoms reported Hematologic/Lymphatic: No symptoms reported Neurological/Psychological: No symptoms reported Physical Exam - Vital signs Interpretation: Normal - General General appearance: Appears well, Alert - HEENT Head: Normocephalic, Atraumatic Eyes: Normal Pupils: PERRL - Respiratory Respiratory status: No respiratory distress Chest status: Nontender Breath sounds: Normal Chest palpation: Normal - Cardiovascular Rhythm: Regular Heart sounds: Normal auscultation Murmur: No - Abdominal Inspection: Normal Distension: No distension Bowel sounds: Normal Tenderness: Tender - ttp luq and epigastric region Organomegaly: No organomegaly - Back Back: Normal, Nontender - Extremities General upper extremity: Normal inspection, Nontender, Normal color, Normal ROM, Normal temperature General lower extremity: Normal inspection, Nontender, Normal color, Normal ROM, Normal temperature, Normal weight bearing. No: Raheem's sign - Neurological Neuro grossly intact: Yes Cognition: Normal Orientation: AAOx4 [place] Scale Eye Opening: Spontaneous [place] Scale Verbal: Oriented [place] Scale Motor: Obeys Commands [place] Coma Scale Total: 15 Speech: Normal Motor strength normal: LUE, RUE, LLE, RLE Sensory: Normal - Psychological Associated symptoms: Normal affect, Normal mood - Skin Skin Temperature: Warm Skin Moisture: Dry Skin Color: Normal Course - Re-evaluation Re-evalutation: 03/20/19 17:19 MDM Upset 38 year old with chronic pancreatitis, dm and cri. Here with pain and nausea and vomiting. She is over to Dr. Yates at 1715. - Laboratory Result Diagrams: 03/20/19 15:46 03/20/19 15:46 Laboratory results interpreted by me: 03/20/19 03/20/19 03/20/19 15:46 15:46 15:56 RDW 14.7 H Lymphocytes % (Manual) 49 H Creatinine 1.80 H Est GFR ( Amer) 38 L Est GFR (MDRD) Non-Af 31 L Glucose 180 H Alkaline Phosphatase 148 H Amylase 130 H Lipase 373.7 H Urine Protein >=500 H Urine Glucose (UA) 150 H Urine Ketones TRACE H Urine Blood SMALL H - EKG Interpretation by Me EKG shows normal: Sinus rhythm Rate: Normal Rhythm: NSR Voltage: Consistant with LVH When compared to previous EKG there are: No significant change - NSR NL axis LVH no st elevation or depression my interpretation. Discharge - Discharge Clinical Impression: Abdominal pain Qualifiers: Abdominal location: periumbilical Qualified Code(s): R10.33 - Periumbilical pain Pancreatitis Qualifiers: Chronicity: chronic Pancreatitis type: unspecified pancreatitis type Qualified Code(s): K86.1 - Other chronic pancreatitis Condition: Fair Disposition: OTHER Instructions: Abdominal Pain ([facility]), Antispasmodics ([facility]), Pain Medication Injection ([facility]) Referrals: RONALD BARKER FNP-C [Primary Care Provider] - Follow up as needed
[2019-03-20 16:31] LABS: HEMATOCRIT 38.2 % (36.0-47.0); MEAN CORPUSCULAR HEMOGLOBIN 28.8 pg (27.0-33.4); MEAN CORPUSCULAR VOLUME 85 fl (80-97); PLATELET COUNT 370 10^3/uL (150-450); RED CELL DISTRIBUTION WIDTH 14.7 % (11.5-14.0); WHITE BLOOD COUNT 8.3 10^3/uL (4.0-10.5)
[2019-03-20 16:44] LABS: APPEARANCE,URINE CLEAR; BILIRUBIN,URINE NEGATIVE (NEGATIVE); COLOR,URINE YELLOW; GLUCOSE, URINE 150 mg/dL (NEGATIVE); KETONES,URINE TRACE mg/dL (NEGATIVE); LEUKOCYTE ESTERASE,URINE NEGATIVE (NEGATIVE); NITRITE,URINE NEGATIVE (NEGATIVE); PROTEIN,URINE >=500 mg/dL (NEGATIVE); URINE SPECIFIC GRAVITY 1.011; UROBILINOGEN,URINE NEGATIVE mg/dL (<2.0)
[2019-03-20 16:49] LABS: ALBUMIN 4.2 g/dL (3.5-5.0); ALKALINE PHOSPHATASE 148 U/L (38-126); AMYLASE 130 U/L (30-110); ANION GAP 9 (5-19); ASPARTATE AMINO TRANSFERASE 29 U/L (14-36); BILIRUBIN,DIRECT 0.4 mg/dL (0.0-0.4); BILIRUBIN,TOTAL 0.4 mg/dL (0.2-1.3); BLOOD UREA NITROGEN 17 mg/dL (7-20); CALCIUM 9.5 mg/dL (8.4-10.2); CARBON DIOXIDE 27 mmol/L (22-30); CHLORIDE 103 mmol/L (98-107); GLUCOSE 180 mg/dL (75-110); POTASSIUM 4.2 mmol/L (3.6-5.0); TOTAL PROTEIN 7.6 g/dL (6.3-8.2)
[2019-03-20 17:12] LABS: ABSOLUTE LYMPHOCYTES# (MANUAL) 4.1 10^3/uL (0.5-4.7); ABSOLUTE MONOCYTES # (MANUAL) 0.5 10^3/uL (0.1-1.4); BASOPHILS % (MANUAL) 0 % (0-2); EOSINOPHILS % (MANUAL) 2 % (0-6); LYMPHOCYTES % (MANUAL) 49 % (13-45); MONOCYTES % (MANUAL) 6 % (3-13); SEGMENTED NEUTROPHILS % (MAN) 43 % (42-78); TOTAL CELLS COUNTED 100
[2019-03-20] MEDS ORDERED: HYDROMORPHONE HCL INJ/PF 2 MG/ML AMPULE IV ONE (17:13)
[2019-03-20] MEDS ORDERED: METOCLOPRAMIDE HCL INJ/PF 10 MG/2 ML SDV IV ONE (17:13)
[2019-03-20] MEDS ORDERED: PANTOPRAZOLE SODIUM 40 MG VIAL IV ONE (17:14)
[2019-03-20] MEDS ORDERED: DIPHENHYDRAMINE HCL 50 MG/ML VIAL IV ONE (17:14)
[2019-03-20 17:17] LABS: ANISOCYTOSIS SLIGHT; OVALOCYTES SLIGHT; PLATELET COMMENT ADEQUATE; SCHISTOCYTES SLIGHT; TEAR DROP CELLS SLIGHT; TOXIC GRANULATION SLIGHT
--- NOTE | 2019-03-20 17:28 | EKG REPORT ---
SEVERITY:- ABNORMAL ECG - SINUS TACHYCARDIA LEFT VENTRICULAR HYPERTROPHY BORDERLINE PROLONGED QT INTERVAL : Confirmed by: Alvaro Lema MD 20-Mar-2019 17:27:55
[2019-03-20 19:18] VITALS: BP 187/121
== END 2019-03-20 20:16 | disposition home or self-care (01) ==
LOC: ER 15:36
DX: K86.1 Other chronic pancreatitis (principal); R10.33 Periumbilical pain; R10.811 Right upper quadrant abdominal tenderness; R10.816 Epigastric abdominal tenderness; R53.1 Weakness; R11.2 Nausea with vomiting, unspecified; I10 Essential (primary) hypertension; J44.9 Chronic obstructive pulmonary disease, unspecified; E11.9 Type 2 diabetes mellitus without complications; Z88.6 Allergy status to analgesic agent; Z88.5 Allergy status to narcotic agent; Z88.0 Allergy status to penicillin; Z88.8 Allergy status to other drugs, medicaments and biological substances
CPT/HCPCS: 36415; 51701; 80053; 81001; 82150; 83605; 83690; 84484; 84703; 85025; 93005; 93010; 96374; 96375; 99284; C9113; J1170; J1200; J2765

== ENCOUNTER 2019-03-23 14:33 | Observation (INO) | payer MEDICAID ==
--- NOTE | 2019-03-23 14:54 | ER Document Report ---
ED Medical Screen (RME) - General Chief Complaint: Abdominal Pain Stated Complaint: FLANK PAIN Time Seen by Provider: 03/23/19 14:48 Primary Care Provider: RONALD BARKER FNP-C [Primary Care Provider] - Follow up as needed Mode of Arrival: Wheelchair Information source: Patient Notes: 38-year-old female presents to ED for complaint of severe upper middle abdominal pain. She states she does have a bad history of pancreatitis. She states she has not had an alcoholic drink in 10 years. She states she cannot keep coming here with this pain she needs some relief from this pain. Patient is alert oriented tearful. Patient has tenderness to the entire belly. Bowel sounds are active. I have greeted and performed a rapid initial assessment of this patient. A comprehensive ED assessment and evaluation of the patient, analysis of test results and completion of medical decision making process will be conducted by an additional ED providers. TRAVEL OUTSIDE OF THE [place] IN LAST 30 DAYS: No - Related Data Allergies/Adverse Reactions: hydrocodone [From [place]] Allergy (Verified 03/18/19 12:42) morphine Allergy (Verified 03/18/19 12:42) Penicillins Allergy (Verified 03/18/19 12:42) prednisone Allergy (Verified 03/18/19 12:42) Edema Past Medical History - General Information source: Patient - Social History Cigarette use (# per day): Yes - 3 cigarettes a day Chew tobacco use (# tins/day): No Frequency of alcohol use: None Drug Abuse: Marijuana Lives with: Family Family history: None - Past Medical History Cardiac Medical History: Reports: Hx Hypercholesterolemia, Hx Hypertension Pulmonary Medical History: Reports: Hx COPD EENT Medical History: Reports: None Neurological Medical History: Reports: Hx Seizures Endocrine Medical History: Reports: Hx Diabetes Mellitus Type 2 Renal/ Medical History: Reports: Hx Renal Insufficiency Malignancy Medical History: Reports: None GI Medical History: Reports: Hx Gastroesophageal Reflux Disease, Hx Pancreatitis Musculoskeltal Medical History: Reports Hx Musculoskeletal Trauma Skin Medical History: Psychiatric Medical History: Reports: Hx Anxiety, Hx Depression Traumatic Medical History: Reports: None Infectious Medical History: Reports: None Past Surgical History: Reports: Hx Section - x3, Hx Hysterectomy - Immunizations Immunizations up to date: Yes Hx Diphtheria, Pertussis, Tetanus Vaccination: No History of Pneumococcal Vaccine: Yes - 2019 History of Influenza Vaccine for 11/2018 - 04/2019 Season: Yes - November 2018 Physical Exam - Vital signs Vitals: Temp Pulse Resp BP Pulse Ox 98.5 F 106 H 26 H 161/133 H 100 03/23/19 14:43 03/23/19 14:43 03/23/19 14:43 03/23/19 14:43 03/23/19 14:43 Course - Vital Signs Vital signs: Temp Pulse Resp BP Pulse Ox 98.5 F 106 H 26 H 161/133 H 100 03/23/19 14:43 03/23/19 14:43 03/23/19 14:43 03/23/19 14:43 03/23/19 14:43 Doctor's Discharge - Discharge Referrals: RONLAD BARKER, ROSIO-C [Primary Care Provider] - Follow up as needed
[2019-03-23] MEDS ORDERED: NORMAL SALINE 1000 ML 1,000 ML IV ONE (14:58)
[2019-03-23] MEDS ORDERED: ONDANSETRON 4 MG TAB.RAPDIS PO ONE (14:58)
[2019-03-23] MEDS ORDERED: KETOROLAC TROMETHAMINE INJ/PF 30 MG/1 ML SDV IV ONE (16:27)
[2019-03-23] MEDS ORDERED: KETAMINE HCL INJ 500 MG/10 ML VIAL IV ONE ×2 (16:29→17:53)
--- NOTE | 2019-03-23 16:36 | ER Document Report ---
ED General - General Chief Complaint: Abdominal Pain Stated Complaint: FLANK PAIN Time Seen by Provider: 03/23/19 14:48 Primary Care Provider: RONALD BARKER FNP-C [Primary Care Provider] - Follow up as needed Mode of Arrival: Wheelchair Notes: Patient is a 38-year-old -Thai female with a past medical history of COPD, diabetes, chronic kidney disease and chronic pancreatitis with a past medical history of alcoholism who presents to the emergency department with a chief complaint of epigastric abdominal pain. She states this is a chronic ongoing pain. Reports that her primary doctor does not have her on any medications for chronic pancreatitis. She states that she is awaiting referral to both the specialist and pain management. She states she has been seen here multiple times for this and wishes for us to just "fix it". She takes occasional marijuana for pain. She admits to associated nausea and vomiting. She denies any fever or diarrheas. Denies any chest pain or shortness of breath. TRAVEL OUTSIDE OF THE [place] IN LAST 30 DAYS: No - Related Data Allergies/Adverse Reactions: hydrocodone [From [place]] Allergy (Verified 03/18/19 12:42) morphine Allergy (Verified 03/18/19 12:42) Penicillins Allergy (Verified 03/18/19 12:42) prednisone Allergy (Verified 03/18/19 12:42) Edema Past Medical History - General Information source: Patient - Social History Smoking Status: Current Every Day Smoker Cigarette use (# per day): Yes - 3 cigarettes a day Chew tobacco use (# tins/day): No Frequency of alcohol use: None Drug Abuse: Marijuana Lives with: Family Family History: Reviewed & Not Pertinent, DM, Hypertension Patient has suicidal ideation: No Patient has homicidal ideation: No - Past Medical History Cardiac Medical History: Reports: Hx Hypercholesterolemia, Hx Hypertension Pulmonary Medical History: Reports: Hx COPD EENT Medical History: Reports: None Neurological Medical History: Reports: Hx Seizures Endocrine Medical History: Reports: Hx Diabetes Mellitus Type 2 Renal/ Medical History: Reports: Hx Renal Insufficiency Malignancy Medical History: Reports: None GI Medical History: Reports: Hx Gastroesophageal Reflux Disease, Hx Pancreatitis Musculoskeletal Medical History: Reports Hx Musculoskeletal Trauma Skin Medical History: Psychiatric Medical History: Reports: Hx Anxiety, Hx Depression Traumatic Medical History: Reports: None Infectious Medical History: Reports: None Past Surgical History: Reports: Hx Section - x3, Hx Hysterectomy - Immunizations Immunizations up to date: Yes Hx Diphtheria, Pertussis, Tetanus Vaccination: No History of Pneumococcal Vaccine: Yes - 2019 Review of Systems - Review of Systems Gastrointestinal: Abdominal pain, Nausea, Vomiting -: Yes All other systems reviewed and negative Physical Exam - Vital signs Vitals: Temp Pulse Resp BP Pulse Ox 98.5 F 106 H 26 H 161/133 H 100 03/23/19 14:43 03/23/19 14:43 03/23/19 14:43 03/23/19 14:43 03/23/19 14:43 - General General appearance: Alert In distress: Moderate - HEENT Head: Normocephalic, Atraumatic Eyes: Normal Conjunctiva: Normal. No: Icteric Extraocular movements intact: Yes Pupils: PERRL - Respiratory Respiratory status: No respiratory distress Chest status: Nontender Breath sounds: Normal Chest palpation: Normal - Cardiovascular Rhythm: Regular Heart sounds: Normal auscultation - Abdominal Inspection: Normal Distension: No distension Bowel sounds: Normal Tenderness: Tender - Diffusely in the epigastric region - Neurological Neuro grossly intact: Yes Cognition: Normal Orientation: AAOx4 [place] Scale Eye Opening: Spontaneous [place] Scale Verbal: Oriented [place] Coma Scale Motor: Obeys Commands [place] Scale Total: 15 Speech: Normal - Psychological Associated symptoms: Agitated, Anxious, Tearful - Skin Skin Temperature: Warm Skin Moisture: Dry Skin Color: Normal Course - Re-evaluation Re-evalutation: 03/23/19 17:54 Patient was writhing in pain, vomiting excessively. She was given ketamine 0.1 mg/kg IV x1. This did improve her pain briefly but worsened her vomiting. She was given a dose of IV Zofran which did not help. She reports due to the ongoing vomiting her pain has returned. She will be given IV Reglan and another dose of low-dose ketamine for pain. She is placed on the monitor. We will continue to monitor. Despite multiple doses of ketamine, 8 of Zofran and 10 of Reglan the patient continues to complain of severe pain and vomiting. She asks why she cannot receive Dilaudid. She was unable to lie still for ultrasound evaluation of the abdomen, therefore CAT scan of the abdomen was deferred due to movement. She was given 20 of Geodon IM and is still uncomfortable and vomiting. I spoke with the hospitalist on-call who advised an antipsychotic like Geodon to assist. The patient continues to vomit and is vomiting up what appears to be bloody material. I called and spoke with the surgeon counter professional Dr. Chance, he advised to place an NG tube, irrigate and then monitor the via suction for any bright red blood. He advised if bright red blood he would bring the patient for an immediate endoscopy, if not he advised admission to the hospitalist service, and that he would consult for endoscopy suspecting Sri-King tear. I spoke with my attending, Dr. Hobbs who also evaluated the patient at bedside and agrees with plan for admission for possible Sri-King tear and intractable nausea and vomiting. 03/23/19 22:08 03/23/19 22:53 The nurse alerted me that they successfully placed the NG tube and the patient very aggressively ripped the tube out. She refuses to have the NG tube. I called and I spoke with Dr. Frankel at this time, hospitalist. We discussed the patient again at length. He recommended 1 mg IV Ativan to help stop the vomiting. He will admit the patient for further care and management. He is aware that Dr. Chance will consult on the patient for endoscopy. - Vital Signs Vital signs: Temp Pulse Resp BP Pulse Ox 98.3 F 117 H 24 H 188/125 H 99 03/23/19 19:42 03/23/19 20:33 03/23/19 19:42 03/23/19 20:33 03/23/19 20:33 - Laboratory Result Diagrams: 03/23/19 16:43 03/23/19 16:43 Laboratory results interpreted by me: 03/23/19 03/23/19 03/23/19 16:43 16:43 18:19 Hgb 11.9 L Hct 35.7 L RDW 15.2 H Creatinine 1.64 H Est GFR ( Amer) 42 L Est GFR (MDRD) Non-Af 35 L Glucose 218 H POC Glucose Alkaline Phosphatase 154 H Urine Protein 100 H Urine Glucose (UA) >=500 H Urine Ketones TRACE H Urine Blood SMALL H 03/23/19 18:34 Hgb Hct RDW Creatinine Est GFR ( Amer) Est GFR (MDRD) Non-Af Glucose POC Glucose 220 H Alkaline Phosphatase Urine Protein Urine Glucose (UA) Urine Ketones Urine Blood Discharge - Discharge Clinical Impression: Intractable nausea and vomiting Abdominal pain Qualifiers: Abdominal location: unspecified location Qualified Code(s): R10.9 - Unspecified abdominal pain Hematemesis Qualifiers: Nausea presence: unspecified Qualified Code(s): K92.0 - Hematemesis Condition: Serious Disposition: ADMITTED INPATIENT Admitting Provider: Jostin (Hospitalist) Unit Admitted: Telemetry Referrals: RONALD BARKER FNP-C [Primary Care Provider] - Follow up as needed
[2019-03-23 17:05] LABS: ABSOLUTE EOSINOPHILS # (AUTO) 0.1 10^3/uL (0.0-0.6); ABSOLUTE LYMPHOCYTES (AUTO) 1.7 10^3/uL (0.5-4.7); ABSOLUTE MONOCYTES (AUTO) 0.4 10^3/uL (0.1-1.4); ABSOLUTE NEUT (AUTO) 5.1 10^3/uL (1.7-8.2); BASOPHILS % (AUTO) 0.3 % (0-2); HEMATOCRIT 35.7 % (36.0-47.0); HEMOGLOBIN 11.9 g/dL (12.0-15.5); LYMPHOCYTES % (AUTO) 23.4 % (13-45); MEAN CORPUSCULAR HEMOGLOBIN 28.2 pg (27.0-33.4); MEAN CORPUSCULAR HGB CONC 33.3 g/dL (32.0-36.0); MEAN CORPUSCULAR VOLUME 85 fl (80-97); MONOCYTES % (AUTO) 5.7 % (3-13); PLATELET COUNT 323 10^3/uL (150-450); RED BLOOD COUNT 4.21 10^6/uL (3.72-5.28); RED CELL DISTRIBUTION WIDTH 15.2 % (11.5-14.0); SEGMENTED NEUTROPHILS % (AUTO) 69.6 % (42-78); TOTAL CELLS COUNTED % (AUTO) 100 %; WHITE BLOOD COUNT 7.3 10^3/uL (4.0-10.5)
[2019-03-23] MEDS ORDERED: ONDANSETRON HCL INJ/PF 4 MG/2 ML SDV IV ONE (17:26)
[2019-03-23 17:31] LABS: ALBUMIN 4.3 g/dL (3.5-5.0); ALKALINE PHOSPHATASE 154 U/L (38-126); ANION GAP 11 (5-19); ASPARTATE AMINO TRANSFERASE 28 U/L (14-36); BILIRUBIN,DIRECT 0.4 mg/dL (0.0-0.4); BILIRUBIN,TOTAL 0.6 mg/dL (0.2-1.3); BLOOD UREA NITROGEN 12 mg/dL (7-20); CALCIUM 9.9 mg/dL (8.4-10.2); CARBON DIOXIDE 27 mmol/L (22-30); CHLORIDE 101 mmol/L (98-107); GLUCOSE 218 mg/dL (75-110); POTASSIUM 3.9 mmol/L (3.6-5.0); TOTAL PROTEIN 7.8 g/dL (6.3-8.2)
[2019-03-23] MEDS ORDERED: METOCLOPRAMIDE HCL INJ/PF 10 MG/2 ML SDV IV ONE (17:53)
[2019-03-23 18:49] LABS: APPEARANCE,URINE CLEAR; BILIRUBIN,URINE NEGATIVE (NEGATIVE); COLOR,URINE STRAW; GLUCOSE, URINE >=500 mg/dL (NEGATIVE); KETONES,URINE TRACE mg/dL (NEGATIVE); PROTEIN,URINE 100 mg/dL (NEGATIVE); URINE SPECIFIC GRAVITY 1.008; UROBILINOGEN,URINE NEGATIVE mg/dL (<2.0)
[2019-03-23 19:09] LABS: URINE AMPHETAMINES SCREEN NEGATIVE; URINE BENZODIAZEPINES SCREEN NEGATIVE; URINE COCAINE SCREEN NEGATIVE; URINE METHADONE SCREEN NEGATIVE; URINE PHENCYCLIDINE SCREEN NEGATIVE
[2019-03-23 19:14] LABS: URINE BARBITURATES SCREEN UNCONFIRMED POSITIVE; URINE MARIJUANA (THC) SCREEN UNCONFIRMED POSITIVE
[2019-03-23] MEDS ORDERED: ZIPRASIDONE MESYLATE INJ/PF 20 MG SDV IM ONE (19:28)
--- NOTE | 2019-03-23 20:17 | RADIOLOGY REPORT (SQ) ---
EXAM DESCRIPTION: US ABDOMEN COMPLETED DATE/TME: 03/23/2019 16:26 CLINICAL HISTORY: 38 years, Female, upper abd pain COMPARISON: None available TECHNIQUE: 22 static images LIMITATIONS: Technically difficult due to patient's inability to cooperate. Best possible images were obtained FINDINGS: Liver is homogeneous the visualized portion. It is of normal size. No intrahepatic ductal dilatation. Common bile duct is not imaged due to patient's inability to cooperate. Midline structures are also poorly seen due to patient inability. Gallbladder is not imaged. Right kidney is identified and appears grossly normal although not digitally measured. IMPRESSION: Examination limited due to patient's inability to cooperate with exam. Best possible images were obtained. The liver appears unremarkable in the visualized portion. No intrahepatic ductal dilatation. copyright 2010 [employer]- All Rights Reserved
--- NOTE | 2019-03-23 20:25 | EKG REPORT ---
SEVERITY:- ABNORMAL ECG - SINUS TACHYCARDIA BIATRIAL ABNORMALITIES PROBABLE LEFT VENTRICULAR HYPERTROPHY BORDERLINE PROLONGED QT INTERVAL : Confirmed by: Alvaro Lema MD 23-Mar-2019 20:25:27
[2019-03-23] MEDS ORDERED: LIDOCAINE 2% JELLY 5 ML TUBE TOP ONE (20:59)
[2019-03-23] MEDS ORDERED: CLONIDINE 0.2 MG/24 HR PATCH.TDWK TD ONE (22:43)
[2019-03-23] MEDS ORDERED: LORAZEPAM INJ 2 MG/1 ML VIAL IV ONE (22:53)
[2019-03-23] MEDS ORDERED: CLONIDINE 0.2 MG/24 HR PATCH.TDWK ONE (23:59)
[2019-03-24] MEDS ORDERED: DEXTROSE 40% GEL 15 GM TUBE PO PRN (00:26)
[2019-03-24] MEDS ORDERED: IPRATROPIUM/ALBUTEROL 0.5-2.5 MG/3 ML AMPUL NEB PRN (00:26)
[2019-03-24] MEDS ORDERED: GLUCAGON,HUMAN RECOMB 1 MG INJ IM PRN (00:26)
[2019-03-24] MEDS ORDERED: DEXTROSE 50%-WATER 25 GM/50 ML DISP.SYRIN IV PRN ×2 (00:26)
[2019-03-24] MEDS ORDERED: HYDROMORPHONE HCL INJ/PF 2 MG/ML AMPULE SUBCUT ONE (03:15)
[2019-03-24] MEDS ORDERED: LORAZEPAM INJ 2 MG/1 ML VIAL IV ONE (03:15)
[2019-03-24] MEDS: NORMAL SALINE 1000 ML 1,000 ML IV PRN ×3 (03:30→23:03)
[2019-03-24] MEDS ORDERED: LORAZEPAM INJ 2 MG/1 ML VIAL IV PRN (04:16)
--- NOTE | 2019-03-24 04:33 | PDOC H&P ---
History of Present Illness Admission Date/PCP: 03/23/19 23:04 LYNNE OLMEDO Patient complains of: Intractable nausea vomiting History of Present Illness: JJ HOFFMAN is a 38 year old female with a past medical history of poorly controlled insulin-dependent diabetes, CKD 3, recurrent DKA, chronic pancreatitis, remote alcohol dependence, daily cannabis from the age of 15. She presents with intractable nausea vomiting over the last 48 hours. In the e mergency department she has persistent symptoms without significant acidosis, metabolic derangement, LFT abnormality, elevated lipase or hyperglycemia. Symptoms persist despite repeated Reglan, Zofran, and Geodon. She is referred to the hospitalist for admission. She admits to daily marijuana use from the age of 15 and recurrent episodes of nausea relieved by hot showers. She admits to Percocet use on occasion she denies daily use or opiate withdrawal, suspect diet or constipation. Past Medical History Cardiac Medical History: Reports: Hyperlipidema, Hypertension Pulmonary Medical History: Reports: Chronic Obstructive Pulmonary Disease (COPD) EENT Medical History: Reports: None Neurological Medical History: Reports: Seizures Endocrine Medical History: Reports: Diabetes Mellitus Type 2 Malignancy Medical History: Reports: None GI Medical History: Reports: Gastroesophageal Reflux Disease Musculoskeltal Medical History: Skin Medical History: Psychiatric Medical History: Reports: Depression, Substance Abuse, Tobacco Dependency Denies: Alcohol Dependency Traumatic Medical History: Reports: None Hematology: Reports: Anemia Denies: Bleeding Tendencies Infectious Medical History: Reports: None Past Surgical History Past Surgical History: Reports: Section - x3, Hysterectomy Social History Information Source: Patient Lives with: Family Smoking Status: Current Every Day Smoker Frequency of Alcohol Use: Social Hx Recreational Drug Use: Yes Drugs: Marijuana Hx Prescription Drug Abuse: No - Advance Directive Resuscitation Status: Full Code Family History Family History: DM, Hypertension Parental Family History Reviewed: Yes Children Family History Reviewed: Yes Sibling(s) Family History Reviewed.: Yes Medication/Allergy Home Medications: Amlodipine Besylate [Norvasc 10 mg Tablet] 10 mg PO DAILY 12/01/18 Gabapentin [Neurontin 300 mg Capsule] 300 mg PO Q12 12/01/18 Insulin Aspart [Novolog Flexpen] 0 unit SUBCUT .SLD SCALE 12/01/18 Insulin Glargine,Hum.rec.anlog [Lantus Insulin 100 Unit/1 ml 10 ml] 40 unit SUBCUT DAILY 12/01/18 Metoprolol Tartrate [Lopressor 50 mg Tablet] 50 mg PO Q12 12/01/18 Ferrous Sulfate 325 mg PO Q2DAYS #30 tablet.dr 12/03/18 Metoclopramide HCl [Metoclopramide HCl Odt] 10 mg PO Q8HP PRN 12/08/18 Lisinopril 20 mg PO DAILY #30 tablet 12/10/18 Prochlorperazine Maleate [Compazine 25 Mg Supp.Rect] 25 mg NC TID 5 Days #5 supp.rect 03/08/19 Sulfamethoxazole/Trimethoprim [Bactrim Ds Tablet] 1 each PO BID #9 tablet 0 03/18/19 Allergies/Adverse Reactions: hydrocodone [From [place]] Allergy (Verified 03/18/19 12:42) morphine Allergy (Verified 03/18/19 12:42) Penicillins Allergy (Verified 03/18/19 12:42) prednisone Allergy (Verified 03/18/19 12:42) Edema Review of Systems Constitutional: ABSENT: chills, fever(s), headache(s), weight gain, weight loss Eyes: ABSENT: visual disturbances Ears: ABSENT: hearing changes Cardiovascular: ABSENT: chest pain, dyspnea on exertion, edema, orthropnea, palpitations Respiratory: ABSENT: cough, hemoptysis Gastrointestinal: PRESENT: as per HPI, abdominal pain, nausea, vomiting. ABSENT: constipation, diarrhea, hematemesis, hematochezia Genitourinary: ABSENT: dysuria, hematuria Musculoskeletal: ABSENT: joint swelling Integumentary: ABSENT: rash, wounds Neurological: ABSENT: abnormal gait, abnormal speech, confusion, dizziness, focal weakness, syncope Psychiatric: ABSENT: anxiety, depression, homidical ideation, suicidal ideation Endocrine: PRESENT: as per HPI, polydipsia, polyuria. ABSENT: cold intolerance, heat intolerance Hematologic/Lymphatic: ABSENT: easy bleeding, easy bruising Physical Exam Vital Signs: Temp Pulse Resp BP Pulse Ox 99.6 F 114 H 18 232/127 H 100 03/24/19 03:08 03/24/19 03:08 03/24/19 03:08 03/24/19 03:08 03/24/19 03:08 Intake & Output 03/22/19 03/23/19 03/24/19 11:59 11:59 11:59 Intake Total 1000 Balance 1000 Weight 54.1 kg General appearance: PRESENT: cooperative, disheveled, severe distress, thin, well-developed, well-nourished Head exam: PRESENT: atraumatic, normocephalic Eye exam: PRESENT: conjunctiva pink, EOMI, PERRLA. ABSENT: scleral icterus Ear exam: PRESENT: normal external ear exam Mouth exam: PRESENT: moist, tongue midline Neck exam: ABSENT: carotid bruit, JVD, lymphadenopathy, thyromegaly Respiratory exam: PRESENT: clear to auscultation teddy. ABSENT: rales, rhonchi, wheezes Cardiovascular exam: PRESENT: RRR. ABSENT: diastolic murmur, rubs, systolic murmur Pulses: PRESENT: normal dorsalis pedis pul Vascular exam: PRESENT: normal capillary refill GI/Abdominal exam: PRESENT: normal bowel sounds, soft, tenderness - Diffuse abdominal tenderness to light touch. ABSENT: distended, guarding, mass, organolmegaly, rebound Rectal exam: PRESENT: deferred Extremities exam: PRESENT: full ROM. ABSENT: calf tenderness, clubbing, pedal edema Neurological exam: PRESENT: alert, awake, oriented to person, oriented to place, oriented to time, oriented to situation, CN II-XII grossly intact. ABSENT: motor sensory deficit Psychiatric exam: PRESENT: agitated, anxious, normal mood. ABSENT: homicidal ideation, suicidal ideation Skin exam: PRESENT: dry, intact, warm. ABSENT: cyanosis, rash Results Laboratory Results: 03/23/19 16:43 03/23/19 16:43 03/23/19 03/23/19 03/23/19 16:43 16:43 18:19 WBC 7.3 RBC 4.21 Hgb 11.9 L Hct 35.7 L MCV 85 MCH 28.2 MCHC 33.3 RDW 15.2 H Plt Count 323 Seg Neutrophils % 69.6 Sodium 138.8 Potassium 3.9 Chloride 101 Carbon Dioxide 27 Anion Gap 11 BUN 12 Creatinine 1.64 H Est GFR ( Amer) 42 L Glucose 218 H Calcium 9.9 Total Bilirubin 0.6 AST 28 Alkaline Phosphatase 154 H Total Protein 7.8 Albumin 4.3 Lipase 186.1 Urine Color STRAW Urine Appearance CLEAR Urine pH 7.0 Ur Specific [place] 1.008 Urine Protein 100 H Urine Glucose (UA) >=500 H Urine Ketones TRACE H Urine Blood SMALL H Urine RBC (Auto) 5 02/14/20 16:43 Troponin I 0.014 Impressions: Abdomen Ultrasound 03/23/19 16:26 IMPRESSION: Examination limited due to patient's inability to cooperate with exam. Best possible images were obtained. The liver appears unremarkable in the visualized portion. No intrahepatic ductal dilatation. copyright 2010 [employer]- All Rights Reserved Assessment and Plan - Diagnosis (1) Intractable nausea and vomiting Is this a current diagnosis for this admission?: Yes Plan: Most likely cannabis hyperemesis syndrome, differential includes gastritis, gastroparesis or opiate withdrawal. Given history of hot showers providing significant relief is diagnostic for cannabis hyperemesis and supported by resolution with Ativan. Gastroparesis less likely as unimproved following Reglan and Zofran, opiate withdrawal less likely as nausea and vomiting resolved prior to trial Dilaudid 0.5 subct. Trial IV Protonix (2) Abdominal pain Qualifiers: Abdominal location: unspecified location Qualified Code(s): R10.9 - Unspecified abdominal pain Is this a current diagnosis for this admission?: Yes Plan: Likely secondary to recurrent retching. Dilaudid 0.5 subcut trial (3) Hematemesis Qualifiers: Nausea presence: unspecified Qualified Code(s): K92.0 - Hematemesis Is this a current diagnosis for this admission?: Yes Plan: Possible Sri-King given recurrent retching, Ativan for symptom control, IV Protonix, follow-up chest x-ray and surgical consult PRN (4) Uncontrolled diabetes mellitus Qualifiers: Diabetes mellitus type: type 1 Is this a current diagnosis for this admission?: Yes Plan: Clear liquid cardiac diabetic diet as tolerated with Humalog sliding scale coverage, follow-up A1c (5) Chronic kidney disease Is this a current diagnosis for this admission?: Yes Plan: Stage III chronic kidney disease, avoid nephrotoxic meds and doses, IV fluid challenge - Time Time Spent with patient: 25-34 minutes - Inpatient Certification Medical Necessity: Need Close Monitoring Due to Risk of Patient Decompensation
[2019-03-24] MEDS ORDERED: PANTOPRAZOLE SODIUM 40 MG VIAL IV ONE (04:45)
[2019-03-24 05:52] LABS: ABSOLUTE LYMPHOCYTES (AUTO) 0.8 10^3/uL (0.5-4.7); ABSOLUTE MONOCYTES (AUTO) 0.1 10^3/uL (0.1-1.4); ABSOLUTE NEUT (AUTO) 9.7 10^3/uL (1.7-8.2); BASOPHILS % (AUTO) 0.3 % (0-2); HEMOGLOBIN 12.8 g/dL (12.0-15.5); LYMPHOCYTES % (AUTO) 7.7 % (13-45); MEAN CORPUSCULAR HEMOGLOBIN 27.9 pg (27.0-33.4); MEAN CORPUSCULAR HGB CONC 32.9 g/dL (32.0-36.0); MEAN CORPUSCULAR VOLUME 85 fl (80-97); PLATELET COUNT 281 10^3/uL (150-450); RED BLOOD COUNT 4.59 10^6/uL (3.72-5.28); RED CELL DISTRIBUTION WIDTH 15.3 % (11.5-14.0); TOTAL CELLS COUNTED % (AUTO) 100 %; WHITE BLOOD COUNT 10.7 10^3/uL (4.0-10.5)
[2019-03-24 06:02] LABS: ALBUMIN 4.7 g/dL (3.5-5.0); ALKALINE PHOSPHATASE 164 U/L (38-126); ANION GAP 18 (5-19); ASPARTATE AMINO TRANSFERASE 24 U/L (14-36); BILIRUBIN,DIRECT 0.2 mg/dL (0.0-0.4); BILIRUBIN,TOTAL 0.6 mg/dL (0.2-1.3); BLOOD UREA NITROGEN 16 mg/dL (7-20); CALCIUM 9.7 mg/dL (8.4-10.2); CARBON DIOXIDE 24 mmol/L (22-30); CHLORIDE 99 mmol/L (98-107); CHOLESTEROL 262.49 mg/dL (0-200); GLUCOSE 397 mg/dL (75-110); POTASSIUM 4.1 mmol/L (3.6-5.0); TOTAL PROTEIN 7.8 g/dL (6.3-8.2); TRIGLYCERIDES 70 mg/dL (<150)
[2019-03-24 06:12] LABS: DIRECT LDL 158 mg/dL (<100)
[2019-03-24] MEDS ORDERED: INSULIN GLARGINE,HUM.REC.ANLOG 1,000 UNIT/10 ML VIAL SUBCUT ONE (07:54)
[2019-03-24] MEDS: INSULIN LISPRO 100 UNIT/ML 3 ML VIAL SUBCUT SCH ×3 (08:08→16:39)
[2019-03-24] MEDS ORDERED: INSULIN GLARGINE,HUM.REC.ANLOG 1,000 UNIT/10 ML VIAL (PYX) SUBCUT ONE ×2 (08:17→09:00)
[2019-03-24] MEDS: METOCLOPRAMIDE HCL INJ/PF 10 MG/2 ML SDV IV SCH ×3 (08:23→16:49)
[2019-03-24] MEDS ORDERED: LISINOPRIL 10 MG TABLET PO ONE (08:30)
[2019-03-24] MEDS ORDERED: METOPROLOL TARTRATE 50 MG TABLET PO ONE (09:00)
[2019-03-24] MEDS ORDERED: AMLODIPINE BESYLATE 10 MG TABLET PO ONE (09:00)
[2019-03-24] MEDS ORDERED: INSULIN LISPRO 100 UNIT/ML 3 ML VIAL SUBCUT ONE (10:30)
[2019-03-24] MEDS: GABAPENTIN 300 MG CAPSULE PO SCH ×2 (10:40→23:06)
[2019-03-24] MEDS: HEPARIN SOD (PORCINE) 5,000 UNIT/ML 1 ML VIAL SUBCUT SCH ×3 (14:26→23:05)
[2019-03-24] MEDS: DEXTROSE 40% GEL 15 GM TUBE PO PRN ×3 (16:38→16:53)
--- NOTE | 2019-03-24 17:41 | PDOC PROGRESS REPORT ---
Subjective Progress Note for:: 03/24/19 Subjective:: Patient complaining of significant pain in her abdomen. States that she has been having nausea vomiting. Otherwise denies any other symptoms. Reason For Visit: INTRACTABLE NAUSEA AND VOMITING Physical Exam Vital Signs: Temp Pulse Resp BP Pulse Ox 98.0 F 114 H 15 177/96 H 100 03/24/19 10:00 03/24/19 10:00 03/24/19 10:00 03/24/19 10:00 03/24/19 10:00 Intake & Output 03/23/19 03/24/19 03/25/19 06:59 06:59 06:59 Intake Total 1444 1520 Balance 1444 1520 Weight 54.1 kg General appearance: PRESENT: cooperative, mild distress, thin Neck exam: ABSENT: JVD Respiratory exam: PRESENT: clear to auscultation teddy, unlabored. ABSENT: tachypnea, wheezes Cardiovascular exam: PRESENT: +S1, +S2, tachycardia. ABSENT: irregular rhythm GI/Abdominal exam: PRESENT: guarding - Voluntary, soft, tenderness. ABSENT: f irm, rebound, rigid Neurological exam: PRESENT: alert, awake, oriented to person, oriented to place, oriented to time Results Laboratory Results: 03/24/19 05:01 03/24/19 05:01 03/23/19 03/23/19 03/24/19 16:43 18:19 05:01 WBC 10.7 H RBC 4.59 Hgb 12.8 Hct 39.0 MCV 85 MCH 27.9 MCHC 32.9 RDW 15.3 H Plt Count 281 Seg Neutrophils % 91.0 H Sodium 138.8 Potassium 3.9 Chloride 101 Carbon Dioxide 27 Anion Gap 11 BUN 12 Creatinine 1.64 H Est GFR ( Amer) 42 L Glucose 218 H Calcium 9.9 Total Bilirubin 0.6 AST 28 Alkaline Phosphatase 154 H Total Protein 7.8 Albumin 4.3 Triglycerides Cholesterol LDL Cholesterol Direct VLDL Cholesterol HDL Cholesterol Lipase 186.1 Urine Color STRAW Urine Appearance CLEAR Urine pH 7.0 Ur Specific [place] 1.008 Urine Protein 100 H Urine Glucose (UA) >=500 H Urine Ketones TRACE H Urine Blood SMALL H Urine RBC (Auto) 5 03/24/19 05:01 WBC RBC Hgb Hct MCV MCH MCHC RDW Plt Count Seg Neutrophils % Sodium 140.8 Potassium 4.1 Chloride 99 Carbon Dioxide 24 Anion Gap 18 BUN 16 Creatinine 1.85 H Est GFR ( Amer) 37 L Glucose 397 H Calcium 9.7 Total Bilirubin 0.6 AST 24 Alkaline Phosphatase 164 H Total Protein 7.8 Albumin 4.7 Triglycerides 70 Cholesterol 262.49 H LDL Cholesterol Direct 158 H VLDL Cholesterol 14.0 HDL Cholesterol 109 Lipase Urine Color Urine Appearance Urine pH Ur Specific [place] Urine Protein Urine Glucose (UA) Urine Ketones Urine Blood Urine RBC (Auto) 03/23/19 16:43 Troponin I 0.014 Impressions: Abdomen Ultrasound 03/23/19 16:26 IMPRESSION: Examination limited due to patient's inability to cooperate with exam. Best possible images were obtained. The liver appears unremarkable in the visualized portion. No intrahepatic ductal dilatation. copyright 2011 [employer]- All Rights Reserved Assessment and Plan - Diagnosis (1) Intractable nausea and vomiting Is this a current diagnosis for this admission?: Yes Plan: Suspected secondary to cannabis hyperemesis syndrome, differential includes gastritis, gastroparesis or opiate withdrawal. Ativan as needed Reglan and Zofran IV Protonix (2) Abdominal pain Qualifiers: Abdominal location: unspecified location Qualified Code(s): R10.9 - Unspecified abdominal pain Is this a current diagnosis for this admission?: Yes Plan: Likely secondary to recurrent retching. Lipase within normal limits at this time. PRN Dilaudid. (3) Chronic pancreatitis Qualifiers: Pancreatitis type: alcohol induced Qualified Code(s): K86.0 - Alcohol- induced chronic pancreatitis Is this a current diagnosis for this admission?: Yes Plan: Lipase within normal limits on this occasion. Supportive care. Encouraged on abstinence from alcohol. (4) Chronic kidney disease Qualifiers: Chronic kidney disease stage: stage 3 (moderate) Qualified Code(s): N18.3 - Chronic kidney disease, stage 3 (moderate) Is this a current diagnosis for this admission?: Yes Plan: Likely at baseline given the response to IV fluids. Avoid NSAIDs and nephrotoxic meds. Continue lisinopril given proteinuria from diabetes. Monitor BMP (5) Uncontrolled diabetes mellitus Qualifiers: Diabetes mellitus type: type 1 Is this a current diagnosis for this admission?: Yes Plan: A1c of 12. Patient has very labile blood sugars and got hypoglycemic this afternoon after being very hyperglycemic in the morning. She did receive her scheduled 40 units of daily Lantus and some sliding scale coverage. We will have to be cautious with patient blood sugars. (6) Hematemesis Qualifiers: Nausea presence: unspecified Qualified Code(s): K92.0 - Hematemesis Is this a current diagnosis for this admission?: Yes Plan: Possible Sri-King given recurrent retching. At this time patient has had no recurrent hematemesis and we will monitor closely. - Time Time Spent with patient: 15-24 minutes
[2019-03-24] MEDS: HYDROMORPHONE HCL INJ/PF 2 MG/ML AMPULE SUBCUT PRN (18:43)
[2019-03-24] MEDS: PANTOPRAZOLE SODIUM 40 MG VIAL IV SCH (18:44)
[2019-03-24] MEDS: METOPROLOL TARTRATE 50 MG TABLET PO SCH (23:06)
[2019-03-24] MEDS: ATORVASTATIN CALCIUM 40 MG TABLET PO SCH (23:23)
[2019-03-25] MEDS: HYDROMORPHONE HCL INJ/PF 2 MG/ML AMPULE SUBCUT PRN ×4 (01:36→23:22)
[2019-03-25 05:22] LABS: ABSOLUTE BASOPHILS # (AUTO) 0.2 10^3/uL (0.0-0.2); ABSOLUTE EOSINOPHILS # (AUTO) 0.1 10^3/uL (0.0-0.6); ABSOLUTE LYMPHOCYTES (AUTO) 4.2 10^3/uL (0.5-4.7); ABSOLUTE NEUT (AUTO) 5.9 10^3/uL (1.7-8.2); BASOPHILS % (AUTO) 1.4 % (0-2); EOSINOPHILS % (AUTO) 0.9 % (0-6); HEMATOCRIT 31.9 % (36.0-47.0); MEAN CORPUSCULAR HEMOGLOBIN 27.7 pg (27.0-33.4); MEAN CORPUSCULAR HGB CONC 32.8 g/dL (32.0-36.0); MEAN CORPUSCULAR VOLUME 84 fl (80-97); MONOCYTES % (AUTO) 8.5 % (3-13); RED BLOOD COUNT 3.78 10^6/uL (3.72-5.28); RED CELL DISTRIBUTION WIDTH 14.7 % (11.5-14.0); SEGMENTED NEUTROPHILS % (AUTO) 52.2 % (42-78); TOTAL CELLS COUNTED % (AUTO) 100 %; WHITE BLOOD COUNT 11.3 10^3/uL (4.0-10.5)
[2019-03-25] MEDS: HEPARIN SOD (PORCINE) 5,000 UNIT/ML 1 ML VIAL SUBCUT SCH (05:32)
[2019-03-25] MEDS: PANTOPRAZOLE SODIUM 40 MG VIAL IV SCH ×2 (05:37→06:09)
[2019-03-25 05:39] LABS: ALBUMIN 3.3 g/dL (3.5-5.0); ALKALINE PHOSPHATASE 114 U/L (38-126); ANION GAP 8 (5-19); ASPARTATE AMINO TRANSFERASE 23 U/L (14-36); BILIRUBIN,TOTAL 0.4 mg/dL (0.2-1.3); BLOOD UREA NITROGEN 21 mg/dL (7-20); CALCIUM 8.5 mg/dL (8.4-10.2); CARBON DIOXIDE 27 mmol/L (22-30); CHLORIDE 97 mmol/L (98-107); GLUCOSE 356 mg/dL (75-110); POTASSIUM 3.6 mmol/L (3.6-5.0)
[2019-03-25] MEDS ORDERED: RINGERS SOLUTION,LACTATED 1,000 ML IV PRN ×2 (08:13→08:14)
[2019-03-25] MEDS: INSULIN LISPRO 100 UNIT/ML 3 ML VIAL SUBCUT SCH ×3 (08:27→17:02)
[2019-03-25] MEDS ORDERED: RINGERS SOLUTION,LACTATED 500 ML IV ONE (09:00)
[2019-03-25] MEDS: METOCLOPRAMIDE HCL INJ/PF 10 MG/2 ML SDV IV SCH (09:38)
[2019-03-25] MEDS ORDERED: INSULIN GLARGINE,HUM.REC.ANLOG 1,000 UNIT/10 ML VIAL (PYX) SUBCUT ONE (09:41)
[2019-03-25] MEDS: METOPROLOL TARTRATE 50 MG TABLET PO SCH ×2 (09:52→21:23)
[2019-03-25] MEDS: LISINOPRIL 10 MG TABLET PO SCH (09:52)
[2019-03-25] MEDS: AMLODIPINE BESYLATE 10 MG TABLET PO SCH (09:53)
[2019-03-25] MEDS: GABAPENTIN 300 MG CAPSULE PO SCH ×2 (09:53→21:23)
[2019-03-25] MEDS ORDERED: INSULIN GLARGINE,HUM.REC.ANLOG 1,000 UNIT/10 ML VIAL SUBCUT SCH ×2 (10:00)
--- NOTE | 2019-03-25 11:36 | PDOC PROGRESS REPORT ---
Subjective Progress Note for:: 03/25/19 Subjective:: Patient did become hypoglycemic yesterday. Today, patient still having abdominal pain. However patient's nausea vomiting has resolved. Patient would like to eat a proper meal. Reason For Visit: INTRACTABLE NAUSEA AND VOMITING Physical Exam Vital Signs: Temp Pulse Resp BP Pulse Ox 98.5 F 78 17 139/80 H 100 03/25/19 08:00 03/25/19 08:00 03/25/19 08:00 03/25/19 08:00 03/25/19 08:00 Intake & Output 03/24/19 03/25/19 03/26/19 06:59 06:59 06:59 Intake Total 1444 4606 Balance 1444 4606 Weight 54.1 kg 56.5 kg General appearance: PRESENT: no acute distress, cooperative Neck exam: ABSENT: JVD Respiratory exam: PRESENT: clear to auscultation teddy, unlabored. ABSENT: tachypnea, wheezes Cardiovascular exam: PRESENT: RRR, +S1, +S2. ABSENT: tachycardia GI/Abdominal exam: PRESENT: normal bowel sounds, soft, tenderness. ABSENT: distended, firm, guarding, rebound, rigid Neurological exam: PRESENT: alert, awake, oriented to person, oriented to place, oriented to time Results Laboratory Results: 03/25/19 05:00 03/25/19 05:00 03/25/19 03/25/19 05:00 05:00 WBC 11.3 H RBC 3.78 Hgb 10.4 L D Hct 31.9 L MCV 84 MCH 27.7 MCHC 32.8 RDW 14.7 H Plt Count 147 L Seg Neutrophils % 52.2 Sodium 132.0 L Potassium 3.6 Chloride 97 L Carbon Dioxide 27 Anion Gap 8 BUN 21 H Creatinine 1.99 H Est GFR ( Amer) 34 L Glucose 356 H Calcium 8.5 Total Bilirubin 0.4 AST 23 Alkaline Phosphatase 114 Total Protein 6.0 L Albumin 3.3 L 03/23/19 16:43 Troponin I 0.014 Impressions: Abdomen Ultrasound 03/23/19 16:26 IMPRESSION: Examination limited due to patient's inability to cooperate with exam. Best possible images were obtained. The liver appears unremarkable in the visualized portion. No intrahepatic ductal dilatation. copyright 2010 [employer]- All Rights Reserved Assessment and Plan - Diagnosis (1) Intractable nausea and vomiting Is this a current diagnosis for this admission?: Yes Plan: Suspected secondary to cannabis hyperemesis syndrome, differential includes gastritis, gastroparesis or opiate withdrawal. Currently resolved Ativan as needed Reglan changed to p.o. with meals. Zofran as needed. Protonix discontinued. (2) Abdominal pain Qualifiers: Abdominal location: unspecified location Qualified Code(s): R10.9 - Unspecified abdominal pain Is this a current diagnosis for this admission?: Yes Plan: Likely secondary to recurrent retching and/or chronic pancreatitis. Lipase within normal limits at this time. PRN Dilaudid. (3) Chronic pancreatitis Qualifiers: Pancreatitis type: alcohol induced Qualified Code(s): K86.0 - Alcohol- induced chronic pancreatitis Is this a current diagnosis for this admission?: Yes Plan: Lipase within normal limits on this occasion. Supportive care. Encouraged on abstinence from alcohol. Patient will need outpatient follow-up with a communication clerk for further care and advanced options for pain management. (4) Chronic kidney disease Qualifiers: Chronic kidney disease stage: stage 3 (moderate) Qualified Code(s): N18.3 - Chronic kidney disease, stage 3 (moderate) Is this a current diagnosis for this admission?: Yes Plan: At baseline. Avoid NSAIDs and nephrotoxic meds. Continue lisinopril given proteinuria from diabetes. Monitor BMP (5) Uncontrolled diabetes mellitus Qualifiers: Diabetes mellitus type: type 1 Is this a current diagnosis for this admission?: Yes Plan: A1c of 12. Patient has very labile blood sugars and sometimes has precipitous drops in blood glucose level. I reduced her Lantus to 30 units daily today but patient only agreed to take 15 units of her Lantus this morning. Continue Accu-Cheks and insulin sliding scale coverage. (6) Hematemesis Qualifiers: Nausea presence: unspecified Qualified Code(s): K92.0 - Hematemesis Is this a current diagnosis for this admission?: Yes Plan: Currently resolved and has not recurred during hospitalization. - Time Time Spent with patient: 15-24 minutes
[2019-03-25] MEDS: METOCLOPRAMIDE HCL 10 MG TABLET PO SCH (17:14)
[2019-03-25] MEDS: ATORVASTATIN CALCIUM 40 MG TABLET PO SCH (21:23)
[2019-03-26] MEDS: HYDROMORPHONE HCL INJ/PF 2 MG/ML AMPULE SUBCUT PRN (07:39)
[2019-03-26] MEDS: INSULIN LISPRO 100 UNIT/ML 3 ML VIAL SUBCUT SCH (09:14)
[2019-03-26] MEDS: METOCLOPRAMIDE HCL 10 MG TABLET PO SCH ×2 (09:14→13:05)
[2019-03-26] MEDS: AMLODIPINE BESYLATE 10 MG TABLET PO SCH (09:14)
[2019-03-26] MEDS: LISINOPRIL 10 MG TABLET PO SCH (09:15)
[2019-03-26] MEDS: METOPROLOL TARTRATE 50 MG TABLET PO SCH (09:15)
[2019-03-26] MEDS: GABAPENTIN 300 MG CAPSULE PO SCH (09:15)
[2019-03-26] MEDS ORDERED: INSULIN GLARGINE,HUM.REC.ANLOG 1,000 UNIT/10 ML VIAL SUBCUT SCH (10:00)
--- NOTE | 2019-03-26 11:15 | PDOC DISCHARGE SUMMARY ---
Impression - Admit/DC Date/PCP Admission Date/Primary Care Provider: 03/23/19 23:04 LYNNE OLMEDO Discharge Date: 03/26/19 - Discharge Diagnosis (1) Intractable nausea and vomiting Is this a current diagnosis for this admission?: Yes (2) Abdominal pain Is this a current diagnosis for this admission?: Yes (3) Chronic pancreatitis Is this a current diagnosis for this admission?: Yes (4) Chronic kidney disease Is this a current diagnosis for this admission?: Yes (5) Uncontrolled diabetes mellitus Is this a current diagnosis for this admission?: Yes - Assessment Summary: Patient was admitted to the hospital for evaluation of intractable nausea and vomiting as well as abdominal pain. On presentation, patient was hypertensive. Patient was also noted to have significant hyperglycemia from her uncontrolled diabetes mellitus. Patient'S nausea vomiting was thought to be secondary to cannabinoid hyperemesis syndrome or diabetic gastroparesis. She was given some Ativan as well as Reglan. Patient symptoms resolved. Patient was counseled against marijuana use. Regarding patient's hyperglycemia, patient did have some labile blood sugars during her stay in the hospital. As a result I have advised patient that instead of missing her Lantus 30 units daily doses she can be taking 20 units in the morning and 10 units before dinner. I have advised patient to check her blood sugar readings at fasting and before dinner and make a log of her readings. Patient will be following up with her primary care provider in 2 days. I have also advised patient follow-up with her gastroentero logist regarding treatment of her chronic pancreatitis and consideration for advanced options of pain management. Have also started patient on lisinopril which she was meant to be taking after last optimization but has not been taking. Notably there was documented complaint of hematemesis on admission but patient has had no recurrence of hematemesis and her blood counts have remained stable throughout her stay in the hospital. It is safe and stable ready for discharge at this time. - Additional Information Resuscitation Status: Full Code Referrals: AJIT PALOMINO MD [ACTIVE STAFF] - (OFFICE REQUEST PATIENT TO CALL ) ASHLEIGH ERVIN FNP [NO LOCAL MD] - 03/28/19 10:30 am (IF UNABLE TO ATTENT APPT. PLEASE NOTIFY OFFICE PRIOR TO APPT. DATE. BE AWARE YOU HAVE 2 NO SHOWS FOR SCHEDULED APPT.) Prescriptions: Insulin Glargine,Hum.rec.anlog [Lantus Insulin 100 Unit/1 ml 10 ml] 20 unit SUBCUT DAILY #1000 unit Metoprolol Tartrate [Lopressor 50 mg Tablet] 100 mg PO Q12 #60 Amlodipine Besylate [Norvasc 10 mg Tablet] 10 mg PO DAILY #30 Lisinopril [Prinivil] 20 mg PO DAILY #30 tablet Metoclopramide HCl [Reglan] 5 mg PO TIDP PRN #15 tablet PRN Reason: Home Medications: Insulin Aspart [Novolog Flexpen] 0 unit SUBCUT .SLD SCALE 12/01/18 Amlodipine Besylate [Norvasc 10 mg Tablet] 10 mg PO DAILY #30 03/26/19 Insulin Glargine,Hum.rec.anlog [Lantus Insulin 100 Unit/1 ml 10 ml] 20 unit SUBCUT DAILY #1000 unit 03/26/19 Lisinopril [Prinivil] 20 mg PO DAILY #30 tablet 03/26/19 Metoclopramide HCl [Reglan] 5 mg PO TIDP PRN #15 tablet 03/26/19 Metoprolol Tartrate [Lopressor 50 mg Tablet] 100 mg PO Q12 #60 03/26/19 History of Present Illiness History of Present Illness: JJ HOFFMAN is a 38 year old female with a past medical history of poorly controlled insulin-dependent diabetes, CKD 3, recurrent DKA, chronic pancreatit is, remote alcohol dependence, daily cannabis from the age of 15. She presents with intractable nausea vomiting over the last 48 hours. In the emergency department she has persistent symptoms without significant acidosis, metabolic derangement, LFT abnormality, elevated lipase or hyperglycemia. Symptoms persist despite repeated Reglan, Zofran, and Geodon. She is referred to the hospitalist for admission. She admits to daily marijuana use from the age of 15 and recurrent episodes of nausea relieved by hot showers. She admits to Percocet use on occasion she denies daily use or opiate withdrawal, suspect diet or constipation. Physical Exam Vital Signs: Temp Pulse Resp BP Pulse Ox 98.2 F 83 22 H 168/95 H 98 03/26/19 07:35 03/26/19 07:35 03/26/19 07:35 03/26/19 07:35 03/26/19 07:35 Intake & Output 03/25/19 03/26/1920 06:59 06:59 06:59 Intake Total 4603 4550 Balance 4606 4550 Weight 56.5 kg 57.2 kg General appearance: PRESENT: no acute distress, cooperative Neck exam: ABSENT: JVD Cardiovascular exam: PRESENT: +S1, +S2 GI/Abdominal exam: PRESENT: normal bowel sounds, soft, tenderness. ABSENT: distended, firm, guarding, rebound, rigid Neurological exam: PRESENT: alert, awake, oriented to person Results Laboratory Results: WBC 11.3 10^3/uL (4.0-10.5) H 03/25/19 05:00 RBC 3.78 10^6/uL (3.72-5.28) 03/25/19 05:00 Hgb 10.4 g/dL (12.0-15.5) L D 03/25/19 05:00 Hct 31.9 % (36.0-47.0) L 03/25/19 05:00 MCV 84 fl (80-97) 03/25/19 05:00 MCH 27.7 pg (27.0-33.4) 03/25/19 05:00 MCHC 32.8 g/dL (32.0-36.0) 03/25/19 05:00 RDW 14.7 % (11.5-14.0) H 03/25/19 05:00 Plt Count 147 10^3/uL (150-450) L 03/25/19 05:00 Lymph % (Auto) 37.0 % (13-45) 03/25/19 05:00 Will % (Auto) 8.5 % (3-13) 03/25/19 05:00 Eos % (Auto) 0.9 % (0-6) 03/25/19 05:00 Baso % (Auto) 1.4 % (0-2) 03/25/19 05:00 Absolute Neuts (auto) 5.9 10^3/uL (1.7-8.2) 03/25/19 05:00 Absolute Lymphs (auto) 4.2 10^3/uL (0.5-4.7) 03/25/19 05:00 Absolute Monos (auto) 1.0 10^3/uL (0.1-1.4) 03/25/19 05:00 Absolute Eos (auto) 0.1 10^3/uL (0.0-0.6) 03/25/19 05:00 Absolute Basos (auto) 0.2 10^3/uL (0.0-0.2) 03/25/19 05:00 Seg Neutrophils % 52.2 % (42-78) 03/25/19 05:00 Sodium 132.0 mmol/L (137-145) L 03/25/19 05:00 Potassium 3.6 mmol/L (3.6-5.0) 03/25/19 05:00 Chloride 97 mmol/L (98-107) L 03/25/19 05:00 Carbon Dioxide 27 mmol/L (22-30) 03/25/19 05:00 Anion Gap 8 (5-19) 03/25/19 05:00 BUN 21 mg/dL (7-20) H 03/25/19 05:00 Creatinine 1.99 mg/dL (0.52-1.25) H 03/25/19 05:00 Est GFR ( Amer) 34 (>60) L 03/25/19 05:00 Est GFR (MDRD) Non-Af 28 (>60) L 03/25/19 05:00 Glucose 356 mg/dL (75-110) H 03/25/19 05:00 POC Glucose 292 mg/dL (70-110) H 03/26/19 07:36 Hemoglobin A1c % 12.1 % (4.7-6.0) H 03/23/19 16:43 Calcium 8.5 mg/dL (8.4-10.2) 03/25/19 05:00 Total Bilirubin 0.4 mg/dL (0.2-1.3) 03/25/19 05:00 Direct Bilirubin 0.0 mg/dL (0.0-0.4) 03/25/19 05:00 Neonat Total Bilirubin Not Reportable 03/25/19 05:00 Neonat Direct Bilirubin Not Reportable 03/25/19 05:00 Neonat Indirect Bili Not Reportable 03/25/19 05:00 AST 23 U/L (14-36) 03/25/19 05:00 ALT 13 U/L (<35) 03/25/19 05:00 Alkaline Phosphatase 114 U/L (38-126) 03/25/19 05:00 Troponin I 0.014 ng/mL 03/23/19 16:43 Total Protein 6.0 g/dL (6.3-8.2) L 03/25/19 05:00 Albumin 3.3 g/dL (3.5-5.0) L 03/25/19 05:00 Triglycerides 70 mg/dL (<150) 03/24/19 05:01 Cholesterol 262.49 mg/dL (0-200) H 03/24/19 05:01 LDL Cholesterol Direct 158 mg/dL (<100) H 03/24/19 05:01 VLDL Cholesterol 14.0 mg/dL (10-31) 03/24/19 05:01 HDL Cholesterol 109 mg/dL (>40) 03/24/19 05:01 Lipase 186.1 U/L (23-300) 03/23/19 16:43 Urine Color STRAW 03/23/19 18:19 Urine Appearance CLEAR 03/23/19 18:19 Urine pH 7.0 (5.0-9.0) 03/23/19 18:19 Ur Specific [place] 1.008 03/23/19 18:19 Urine Protein 100 mg/dL (NEGATIVE) H 03/23/19 18:19 Urine Glucose (UA) >=500 mg/dL (NEGATIVE) H 03/23/19 18:19 Urine Ketones TRACE mg/dL (NEGATIVE) H 03/23/19 18:19 Urine Blood SMALL (NEGATIVE) H 03/23/19 18:19 Urine Nitrite (Reflex) NEGATIVE (NEGATIVE) 03/23/19 18:19 Urine Bilirubin NEGATIVE (NEGATIVE) 03/23/19 18:19 Urine Urobilinogen NEGATIVE mg/dL (<2.0) 03/23/19 18:19 Leukocyte Esterase Rfl NEGATIVE (NEGATIVE) 03/23/19 18:19 Urine RBC (Auto) 5 /HPF 03/23/19 18:19 U Hyaline Cast (Auto) 1 /LPF 03/23/19 18:19 Urine WBC (Reflex) 1 /HPF 03/23/19 18:19 Squamous Epi Cells Auto 1 /HPF 03/23/19 18:19 Urine Ascorbic Acid NEGATIVE (NEGATIVE) 03/23/19 18:19 POC Gastric Occult Bld POSITIVE (NEGATIVE) 03/23/19 20:31 Urine Opiates Screen NEGATIVE 03/23/19 18:19 Urine Methadone Screen NEGATIVE 03/23/19 18:19 Ur Barbiturates Screen UNCONFIRMED POSITIVE 03/23/19 18:19 Ur Phencyclidine Scrn NEGATIVE 03/23/19 18:19 Ur Amphetamines Screen NEGATIVE 03/23/19 18:19 U Benzodiazepines Scrn NEGATIVE 03/23/19 18:19 Urine Cocaine Screen NEGATIVE 03/23/19 18:19 U Marijuana (THC) Screen UNCONFIRMED POSITIVE 03/23/19 18:19 03/23/19 16:43 Troponin I 0.014 Impressions: Abdomen Ultrasound 03/23/19 16:26 IMPRESSION: Examination limited due to patient's inability to cooperate with exam. Best possible images were obtained. The liver appears unremarkable in the visualized portion. No intrahepatic ductal dilatation. copyright 2010 [employer]- All Rights Reserved Plan Time Spent: Less than 30 Minutes Stroke Is this a Stroke Patient?: No Acute Heart Failure - Is this a Heart Failure Patient?: No
[2019-03-26 11:49] VITALS: BP 232/127
[2019-03-26 14:55] LABS: HEMOGLOBIN 10.4 g/dL (12.0-15.5)
[2019-03-26 14:56] LABS: PLATELET COUNT 147 10^3/uL (150-450)
== END 2019-03-26 13:06 | disposition home or self-care (01) ==
LOC: ER 14:33 → EH 23:04 → INTOOBSV 23:04 → 5 03-24 02:55
PROVIDERS: ADMIT Internal Medicine; ATTEND Internal Medicine
DX: R11.2 Nausea with vomiting, unspecified (principal); K86.0 Alcohol-induced chronic pancreatitis; I12.9 Hypertensive chronic kidney disease with stage 1 through stage 4 chronic kidney disease, or unspecified chronic kidney disease; E10.22 Type 1 diabetes mellitus with diabetic chronic kidney disease; E10.65 Type 1 diabetes mellitus with hyperglycemia; N18.3 Chronic kidney disease, stage 3 (moderate); E10.649 Type 1 diabetes mellitus with hypoglycemia without coma; F12.10 Cannabis abuse, uncomplicated; F10.21 Alcohol dependence, in remission; K21.9 Gastro-esophageal reflux disease without esophagitis; Z91.14 Patient's other noncompliance with medication regimen; Z82.49 Family history of ischemic heart disease and other diseases of the circulatory system; Z83.3 Family history of diabetes mellitus; R45.1 Restlessness and agitation; F17.210 Nicotine dependence, cigarettes, uncomplicated; Z90.710 Acquired absence of both cervix and uterus
CPT/HCPCS: 93005; 96376; 99285; 96372; 96361; 96374; 96375; 36415 ×2; 82962 ×4; 83690; 85025 ×3; 80053 ×3; 81001; 84484; 80307; 83036; 80061; 76700; 93010; G0378 ×4; J1815 ×6; J1644; S0119; J3490 ×16; J1885; J2765 ×2; J1170 ×3; J2060 ×2; C9113; J3486; J2405; J7030 ×2

== ENCOUNTER 2019-04-16 08:03 | Emergency (ER) | payer MEDICAID ==
--- NOTE | 2019-04-16 09:13 | ER Document Report ---
ED General - General Chief Complaint: Flank Pain Stated Complaint: ABDOMINAL PAIN Time Seen by Provider: 04/16/19 09:13 Primary Care Provider: ROANLD BARKER FNP-C [Primary Care Provider] - Follow up as needed TRAVEL OUTSIDE OF THE [place] IN LAST 30 DAYS: No - HPI Patient complains to provider of: Right flank pain Notes: Well-appearing female no acute distress presents with 10/10 throbbing right flank pain sharp in nature without radiation nothing makes it better or worse. Patient suffers from chronic pancreatitis and chronic abdominal pain. Seen at the emergency department approximately 3-4 times per month. Denies any difference in her symptoms denies fever. Patient endorsing profound nausea no vomiting. Denies any trauma to her back. - Related Data Allergies/Adverse Reactions: hydrocodone [From [place]] Allergy (Verified 03/18/19 12:42) morphine Allergy (Verified 03/18/19 12:42) Penicillins Allergy (Verified 03/18/19 12:42) prednisone Allergy (Verified 03/18/19 12:42) Edema Home Medications: "I take meds for my high blood pressure and diabetes" pt is rolling in pain at this time and is unable to focus on what medications specifically. Past Medical History - Social History Smoking Status: Current Every Day Smoker Frequency of alcohol use: None Drug Abuse: Marijuana Family History: DM, Hypertension Patient has suicidal ideation: No Patient has homicidal ideation: No - Past Medical History Cardiac Medical History: Reports: Hx Hypercholesterolemia, Hx Hypertension Pulmonary Medical History: Reports: Hx COPD Neurological Medical History: Reports: Hx Seizures Endocrine Medical History: Reports: Hx Diabetes Mellitus Type 2 Renal/ Medical History: Reports: Hx Renal Insufficiency GI Medical History: Reports: Hx Gastroesophageal Reflux Disease, Hx Pancreatitis Musculoskeletal Medical History: Reports Hx Musculoskeletal Trauma Skin Medical History: Psychiatric Medical History: Reports: Hx Anxiety, Hx Depression Past Surgical History: Reports: Hx Section - x3, Hx Hysterectomy - Immunizations Immunizations up to date: Yes Hx Diphtheria, Pertussis, Tetanus Vaccination: No Review of Systems - Review of Systems Notes: REVIEW OF SYSTEMS: CONSTITUTIONAL: -fevers, -chills EENT: -eye pain, -difficulty swallowing, -nasal congestion CARDIOVASCULAR: -chest pain, -syncope. RESPIRATORY: -cough, -SOB GASTROINTESTINAL: -abdominal pain, positive nausea, -vomiting, -diarrhea GENITOURINARY: -dysuria, -hematuria MUSCULOSKELETAL: back paain SKIN: -rash or skin lesions. HEMATOLOGIC: -easy bruising or bleeding. LYMPHATIC: -swollen, enlarged glands. NEUROLOGICAL: -altered mental status or loss of consciousness, -headache, - neurologic symptoms PSYCHIATRIC: -anxiety, -depression. ALL OTHER SYSTEMS REVIEWED AND NEGATIVE. Physical Exam - Vital signs Vitals: Temp Pulse Resp BP Pulse Ox 98.4 F 108 H 18 178/119 H 100 04/16/19 08:16 04/16/19 08:16 04/16/19 08:16 04/16/19 08:16 04/16/19 08:16 Course - Re-evaluation Re-evalutation: 04/16/19 09:19 Well-appearing female no acute distress presents with right-sided flank pain. She states that similar to her chronic pain. Denies fever. Will obtain labs give antiemetics and analgesia. 04/16/19 10:28 Patient given intramuscular antiemetics and analgesia. Patient feeling markedly improved. At this time patient declines additional blood work. Glucose near normal for this patient at 218. Will be discharged home improved implore her additional blood work will be required to rule out emergent process. She will follow-up with family doctor return if any changes. - Vital Signs Vital signs: Temp Pulse Resp BP Pulse Ox 98.4 F 108 H 14 184/111 H 100 04/16/19 08:16 04/16/19 08:16 04/16/19 10:00 04/16/19 10:00 04/16/19 10:00 - Laboratory Laboratory results interpreted by me: 04/16/19 09:58 POC Glucose 218 H Discharge - Discharge Clinical Impression: Flank pain Condition: Stable Disposition: HOME, SELF-CARE Additional Instructions: Follow-up PCP return if anything changes Referrals: RONALD BARKER FNP-C [Primary Care Provider] - Follow up as needed
[2019-04-16] MEDS ORDERED: HALOPERIDOL LACTATE INJ 5 MG/1 ML VIAL IM ONE (09:15)
[2019-04-16] MEDS ORDERED: DIPHENHYDRAMINE HCL 50 MG/ML VIAL IM ONE (09:16)
[2019-04-16] MEDS ORDERED: HYDROMORPHONE HCL INJ/PF 2 MG/ML AMPULE IM ONE (09:17)
[2019-04-16 10:03] VITALS: BP 184/111
[2019-04-16 10:59] LABS: APPEARANCE,URINE CLEAR; BILIRUBIN,URINE NEGATIVE (NEGATIVE); COLOR,URINE STRAW; GLUCOSE, URINE >=500 mg/dL (NEGATIVE); KETONES,URINE 20 mg/dL (NEGATIVE); LEUKOCYTE ESTERASE,URINE NEGATIVE (NEGATIVE); NITRITE,URINE NEGATIVE (NEGATIVE); PROTEIN,URINE >=500 mg/dL (NEGATIVE); URINE SPECIFIC GRAVITY 1.014; UROBILINOGEN,URINE NEGATIVE mg/dL (<2.0)
== END 2019-04-16 10:47 | disposition home or self-care (01) ==
LOC: ER 08:03
DX: G89.29 Other chronic pain (principal); R10.9 Unspecified abdominal pain; R11.0 Nausea; K86.1 Other chronic pancreatitis; F17.200 Nicotine dependence, unspecified, uncomplicated; E11.9 Type 2 diabetes mellitus without complications; J44.9 Chronic obstructive pulmonary disease, unspecified; E78.00 Pure hypercholesterolemia, unspecified; Z88.6 Allergy status to analgesic agent; Z88.0 Allergy status to penicillin; Z90.710 Acquired absence of both cervix and uterus
CPT/HCPCS: 99284; 96372; 82962; 81025; 81001; J1200; J1630; J1170

== ENCOUNTER 2019-05-06 16:27 | Emergency (ER) | payer MEDICAID ==
[2019-05-06] MEDS ORDERED: ONDANSETRON HCL INJ/PF 4 MG/2 ML SDV IV ONE (16:49)
[2019-05-06] MEDS ORDERED: NORMAL SALINE 1000 ML 1,000 ML IV ONE ×2 (16:49→18:57)
[2019-05-06] MEDS ORDERED: HYDROMORPHONE HCL INJ/PF 2 MG/ML AMPULE IV ONE ×2 (16:49→20:11)
--- NOTE | 2019-05-06 17:39 | ER Document Report ---
Entered by SARAH KELLY SCRIBE 05/06/19 1728 Acting as scribe for:JASPER BARAJAS MD ED GI/ - General Chief Complaint: Abdominal Pain Stated Complaint: POSSIBLE SEIZURE Time Seen by Provider: 05/06/19 16:31 Primary Care Provider: RONALD BARKER FNP-C [Primary Care Provider] - Follow up as needed Information source: Patient, [facility] Records Notes: This 38-year-old female patient with recurrent pancreatitis presents to the emergency department today with complaints of upper abdominal pain. Patient states her pain today feels identical to her previous pancreatitis flares. Patient mentions that she is a former alcoholic but has not had any EtOH in quite some time. She states she first noticed this upper abdominal pain today around noon after eating [employer]. Patient denies nausea, vomiting, or fevers. TRAVEL OUTSIDE OF THE [place] IN LAST 30 DAYS: No - Related Data Allergies/Adverse Reactions: hydrocodone [From [place]] Allergy (Verified 03/18/19 12:42) morphine Allergy (Verified 03/18/19 12:42) Penicillins Allergy (Verified 03/18/19 12:42) prednisone Allergy (Verified 03/18/19 12:42) Edema Home Medications: Lisinopril, Metoprolol, novolog, lantus, amlodipine Past Medical History - General Information source: Patient - Social History Smoking Status: Current Every Day Smoker Cigarette use (# per day): Yes - 1/2 ppd Chew tobacco use (# tins/day): No Smoking Education Provided: No Frequency of alcohol use: None Drug Abuse: Marijuana Lives with: Family Family History: Reviewed & Not Pertinent, DM, Hypertension Patient has suicidal ideation: No Patient has homicidal ideation: No - Past Medical History Cardiac Medical History: Reports: Hx Hypercholesterolemia, Hx Hypertension Pulmonary Medical History: Reports: Hx COPD Neurological Medical History: Reports: Hx Seizures Endocrine Medical History: Reports: Hx Diabetes Mellitus Type 2 Renal/ Medical History: Reports: Hx Renal Insufficiency GI Medical History: Reports: Hx Gastroesophageal Reflux Disease, Hx Pancreatitis Musculoskeletal Medical History: Reports Hx Musculoskeletal Trauma Skin Medical History: Psychiatric Medical History: Reports: Hx Anxiety, Hx Depression Past Surgical History: Reports: Hx Section - x3, Hx Hysterectomy - Immunizations Immunizations up to date: Yes Hx Diphtheria, Pertussis, Tetanus Vaccination: No Review of Systems - Review of Systems Constitutional: denies: Fever EENT: No symptoms reported Cardiovascular: No symptoms reported Respiratory: No symptoms reported Gastrointestinal: See HPI, Abdominal pain Genitourinary: No symptoms reported Female Genitourinary: No symptoms reported Musculoskeletal: No symptoms reported Skin: No symptoms reported Hematologic/Lymphatic: No symptoms reported Neurological/Psychological: No symptoms reported Physical Exam - Vital signs Vitals: Resp Pulse Ox 12 100 05/06/19 16:39 05/06/19 16:39 - Notes Notes: Physical Exam: General: Alert, appears quite uncomfortable. HEENT: Normocephalic. Atraumatic. PERRL. Extraocular movements intact. Oropharynx clear. Neck: Supple. Non-tender. Respiratory: No respiratory distress. Clear and equal breath sounds bilaterally. Cardiovascular: Regular rate and rhythm. Abdominal: Exquisite epigastric and mid-abdominal tenderness with palpation. Positive guarding. Hypoactive bowel sounds. Back: No gross abnormalities. Extremities: Moves all four extremities. Upper extremities: Normal inspection. Normal ROM. Lower extremities: Normal inspection. No edema. Normal ROM. Neurological: Normal cognition. AAOx4. Normal speech. Psychological: Normal affect. Normal Mood. Skin: Warm. Dry. Normal color. Course - Vital Signs Vital signs: Temp Pulse Resp BP Pulse Ox 98.3 F 94 15 194/124 H 99 05/07/19 01:50 05/07/19 01:50 05/07/19 01:50 05/07/19 01:50 05/07/19 01:50 - Laboratory Result Diagrams: 05/06/19 17:13 05/06/19 17:13 Laboratory results interpreted by me: 05/06/19 05/06/19 05/06/19 16:33 17:13 17:13 Hct 35.0 L RDW 15.7 H Creatinine 1.49 H Est GFR ( Amer) 47 L Est GFR (MDRD) Non-Af 39 L Glucose 320 H POC Glucose 344 H Hemoglobin A1c % Alkaline Phosphatase 135 H Creatine Kinase 239 H Lipase 536.3 H Urine Protein Urine Glucose (UA) Urine Ketones Urine Blood Ur Leukocyte Esterase 05/06/19 05/06/19 17:13 18:06 Hct RDW Creatinine Est GFR ( Amer) Est GFR (MDRD) Non-Af Glucose POC Glucose Hemoglobin A1c % 10.0 H Alkaline Phosphatase Creatine Kinase Lipase Urine Protein >=500 H Urine Glucose (UA) >=500 H Urine Ketones TRACE H Urine Blood SMALL H Ur Leukocyte Esterase TRACE H - Consults Dr. Frankel Time consulted: 19:28 Consulted provider: will come to ER - Transfer of Care Care transferred to following provider: Dr. Ho Notes: 05/06/19 20:31 Patient is currently pending evaluation by the hospitalist who states that he would like to come see the patient before deciding on admission. Discharge - Discharge Clinical Impression: Acute on chronic pancreatitis, IDDM (insulin dependent diabetes mellitus), Poorly controlled diabetes mellitus, Tobacco dependence Condition: Stable Disposition: HOME, SELF-CARE Referrals: RONALD BARKER FNP-C [Primary Care Provider] - Follow up as needed I personally performed the services described in the documentation, reviewed and edited the documentation which was dictated to the scribe in my presence, and it accurately records my words and actions.
[2019-05-06 17:48] LABS: ABSOLUTE BASOPHILS # (AUTO) 0.1 10^3/uL (0.0-0.2); ABSOLUTE EOSINOPHILS # (AUTO) 0.1 10^3/uL (0.0-0.6); ABSOLUTE LYMPHOCYTES (AUTO) 1.5 10^3/uL (0.5-4.7); ABSOLUTE MONOCYTES (AUTO) 0.3 10^3/uL (0.1-1.4); ABSOLUTE NEUT (AUTO) 5.2 10^3/uL (1.7-8.2); BASOPHILS % (AUTO) 0.8 % (0-2); EOSINOPHILS % (AUTO) 1.1 % (0-6); LYMPHOCYTES % (AUTO) 21.2 % (13-45); MEAN CORPUSCULAR HGB CONC 34.1 g/dL (32.0-36.0); MEAN CORPUSCULAR VOLUME 85 fl (80-97); MONOCYTES % (AUTO) 4.8 % (3-13); PLATELET COUNT 301 10^3/uL (150-450); RED BLOOD COUNT 4.13 10^6/uL (3.72-5.28); RED CELL DISTRIBUTION WIDTH 15.7 % (11.5-14.0); SEGMENTED NEUTROPHILS % (AUTO) 72.1 % (42-78); TOTAL CELLS COUNTED % (AUTO) 100 %; WHITE BLOOD COUNT 7.2 10^3/uL (4.0-10.5)
[2019-05-06 18:08] LABS: ALBUMIN 4.4 g/dL (3.5-5.0); ALKALINE PHOSPHATASE 135 U/L (38-126); ANION GAP 9 (5-19); ASPARTATE AMINO TRANSFERASE 30 U/L (14-36); BILIRUBIN,TOTAL 0.4 mg/dL (0.2-1.3); BLOOD UREA NITROGEN 18 mg/dL (7-20); CALCIUM 9.8 mg/dL (8.4-10.2); CARBON DIOXIDE 28 mmol/L (22-30); CHLORIDE 101 mmol/L (98-107); CREATINE KINASE 239 U/L (30-135); GLUCOSE 320 mg/dL (75-110); POTASSIUM 4.3 mmol/L (3.6-5.0); TOTAL PROTEIN 7.5 g/dL (6.3-8.2)
[2019-05-06 18:18] LABS: APPEARANCE,URINE SLIGHTLY-CLOUDY; BILIRUBIN,URINE NEGATIVE (NEGATIVE); COLOR,URINE YELLOW; GLUCOSE, URINE >=500 mg/dL (NEGATIVE); KETONES,URINE TRACE mg/dL (NEGATIVE); LEUKOCYTE ESTERASE,URINE TRACE (NEGATIVE); NITRITE,URINE NEGATIVE (NEGATIVE); PROTEIN,URINE >=500 mg/dL (NEGATIVE); URINE SPECIFIC GRAVITY 1.016; UROBILINOGEN,URINE NEGATIVE mg/dL (<2.0)
[2019-05-06 20:24] LABS: URINE AMPHETAMINES SCREEN NEGATIVE; URINE BARBITURATES SCREEN NEGATIVE; URINE BENZODIAZEPINES SCREEN NEGATIVE; URINE COCAINE SCREEN NEGATIVE; URINE MARIJUANA (THC) SCREEN UNCONFIRMED POSITIVE; URINE METHADONE SCREEN NEGATIVE; URINE PHENCYCLIDINE SCREEN NEGATIVE
[2019-05-06] MEDS ORDERED: CLONIDINE HCL 0.2 MG TABLET PO ONE (23:39)
[2019-05-06] MEDS ORDERED: CLONIDINE HCL 0.2 MG TABLET ONE (23:46)
[2019-05-07 01:54] VITALS: BP 194/124
== END 2019-05-07 01:50 | disposition home or self-care (01) ==
LOC: ER 16:27
DX: K85.90 Acute pancreatitis without necrosis or infection, unspecified (principal); K86.1 Other chronic pancreatitis; K86.81 Exocrine pancreatic insufficiency; E11.65 Type 2 diabetes mellitus with hyperglycemia; I10 Essential (primary) hypertension; J44.9 Chronic obstructive pulmonary disease, unspecified; Z79.4 Long term (current) use of insulin; Z79.899 Other long term (current) drug therapy
CPT/HCPCS: 96376; 99284; 96361; 96374; 96375; 36415; 87040; 82962; 82550; 83690; 83735; 85025; 80053; 81001; 80307; 83036; J3490; J1170; J2405; J7030

== ENCOUNTER 2019-06-06 10:48 | Inpatient (IN) | payer MEDICAID ==
[2019-06-06] MEDS ORDERED: IPRATROPIUM/ALBUTEROL 0.5-2.5 MG/3 ML AMPUL NEB ONE (10:55)
--- NOTE | 2019-06-06 11:22 | ER Document Report ---
ED General - General Chief Complaint: Unresponsive Stated Complaint: UNRESPONSIVE Time Seen by Provider: 06/06/19 10:53 Primary Care Provider: RONALD BARKER FNP-C [Primary Care Provider] - Follow up as needed Mode of Arrival: Medic Information source: Patient, Emergency Med Personnel Cannot obtain history due to: Altered mental status Notes: Patient is a 38-year-old female presenting to the emergency department by EMS chief complaint of altered mental status/unresponsiveness. Family states that when they went to wake the patient up this morning she was unresponsive and they called 911. When EMS presented they stated that the patient was minimally alert to noxious stimuli. Patient is a diabetic. EMS state that the patient has what appears to be track johnson to upper extremities. At time of presentation to the emergency department the patient is somnolent but does arouse to noxious stimuli. 1128 On reevaluation at this time nursing staff is having difficulty obtaining IV access labs in the room obtaining blood work the patient is now much more awake and states that she has stomach pain and this started yesterday. She has had decreased oral intake because of the pain. Patient denies travel history trauma history bad food exposure. TRAVEL OUTSIDE OF THE [place] IN LAST 30 DAYS: No - HPI Onset: Other - unknown Onset/Duration: Gradual, Persistent Quality of pain: Throbbing Severity: Moderate Pain Level: 3 Associated symptoms: None, Nausea, Vomiting Exacerbated by: Denies Relieved by: Denies Similar symptoms previously: Yes Recently seen / treated by doctor: No - Related Data Allergies/Adverse Reactions: hydrocodone [From [place]] Allergy (Verified 03/18/19 12:42) morphine Allergy (Verified 03/18/19 12:42) Penicillins Allergy (Verified 03/18/19 12:42) prednisone Allergy (Verified 03/18/19 12:42) Edema Past Medical History - General Information source: Patient, Emergency Med Personnel, [facility] Records - Social History Smoking Status: Current Every Day Smoker Cigarette use (# per day): Yes Chew tobacco use (# tins/day): No Smoking Education Provided: Yes Frequency of alcohol use: None Drug Abuse: Marijuana Lives with: Family Family History: Reviewed & Not Pertinent, DM, Hypertension Patient has suicidal ideation: No Patient has homicidal ideation: No - Past Medical History Cardiac Medical History: Reports: Hx Hypercholesterolemia, Hx Hypertension Pulmonary Medical History: Reports: Hx COPD Neurological Medical History: Reports: Hx Seizures Endocrine Medical History: Reports: Hx Diabetes Mellitus Type 2 Renal/ Medical History: Reports: Hx Renal Insufficiency GI Medical History: Reports: Hx Gastroesophageal Reflux Disease, Hx Pancreatitis Musculoskeletal Medical History: Reports Hx Musculoskeletal Trauma Skin Medical History: Psychiatric Medical History: Reports: Hx Anxiety, Hx Depression Past Surgical History: Reports: Hx Section - x3, Hx Hysterectomy - Immunizations Immunizations up to date: Yes Hx Diphtheria, Pertussis, Tetanus Vaccination: No Review of Systems - Review of Systems Constitutional: No symptoms reported EENT: No symptoms reported Cardiovascular: No symptoms reported Respiratory: No symptoms reported Gastrointestinal: See HPI Genitourinary: No symptoms reported Female Genitourinary: No symptoms reported Musculoskeletal: No symptoms reported Skin: No symptoms reported Hematologic/Lymphatic: No symptoms reported Neurological/Psychological: See HPI Physical Exam - Vital signs Vitals: Resp Pulse Ox 14 95 06/06/19 10:49 06/06/19 10:49 - Notes Notes: PHYSICAL EXAMINATION: GENERAL: Patient is a 38-year-old female with a prior history of diabetes hype rtension and pancreatitis presenting to the emergency department for altered mental status and subsequently for abdominal pain. Patient denies travel history trauma history sick contacts patient denies any recent change in medications. No one else at home is ill. HEAD: Atraumatic, normocephalic. EYES: Pupils equal round and reactive to light, extraocular movements intact, sclera anicteric, conjunctiva are injected however patient is currently crying. ENT: nares patent, oropharynx clear without exudates. Moist mucous membranes. NECK: Normal range of motion, supple without lymphadenopathy, no appreciable JVD LUNGS: Lungs clear to auscultation bilaterally and equal. No wheezes rales or rhonchi. HEART: Regular rhythm without murmurs, tachycardic rate ABDOMEN: Soft, diffusely tender, normal bowel sounds. Positive guarding, no rebound. No masses appreciated. EXTREMITIES: Active full range of motion, no pitting or edema. No cyanosis. 2+ pulses x4 NEUROLOGICAL: Initially patient was minimally responsive however now patient answers questions appropriately follows commands appropriately is alert and oriented x3 [place] Scale of 15. No focal neurologic deficits. SKIN: Warm, Dry, and intact. Normal turgor, no rashes or lesions noted. Course - Re-evaluation Re-evalutation: 06/06/19 13:43 Patient had improved while in the emergency department had been sitting up watching television however at this time I was contacted by nursing staff due to patient currently having a seizure. At time of presentation to the room I observed the patient having sonorous respirations she did have a left-sided tongue injury and was not immediately responsive. 2 mg IV Ativan was ordered and given. EKG and CT of brain will be obtained. Accu-Chek at this time was obtained patient's blood glucose level in the 200s. 06/06/19 16:17 Patient responded to the Ativan. CT was obtained demonstrating no acute i ntracranial pathology. Patient subsequently received 1 g of Keppra IV. Repeat Accu-Chek has been ordered. I have reevaluated the patient multiple times while in the emergency department. Patient's labs have been reviewed by me. I have consulted with the hospitalist for admission secondary to altered mental status abdominal pain elevated liver enzymes and the seizure. Hospitalist states that the patient has been seen multiple times in this emergency department and has been worked up for diabetes and abdominal pain they also state that they believe the patient has had a prior history of pseudoseizures however I do believe that the patient had a real seizure today that is what I observed. Patient will be admitted in stable condition. - Vital Signs Vital signs: Temp Pulse Resp BP Pulse Ox 98.7 F 104 H 14 176/151 H 99 06/06/19 11:15 06/06/19 11:15 06/06/19 14:01 06/06/19 15:00 06/06/19 15:16 - Laboratory Result Diagrams: 06/06/19 11:29 06/06/19 11:29 Laboratory results interpreted by me: 06/06/19 06/06/19 06/06/19 11:06 11:29 11:29 WBC 10.8 H RDW 15.7 H Lymph % (Auto) 10.4 L Absolute Neuts (auto) 9.2 H Seg Neutrophils % 85.4 H BUN 27 H Creatinine 1.67 H Est GFR ( Amer) 42 L Est GFR (MDRD) Non-Af 34 L Glucose 253 H POC Glucose Hemoglobin A1c % Alkaline Phosphatase 162 H Lipase 443.8 H Urine Protein >=500 H Urine Glucose (UA) >=500 H Urine Ketones TRACE H Urine Blood MODERATE H Salicylates < 1.0 L Acetaminophen < 10 L 06/06/19 06/06/19 11:29 13:41 WBC RDW Lymph % (Auto) Absolute Neuts (auto) Seg Neutrophils % BUN Creatinine Est GFR ( Amer) Est GFR (MDRD) Non-Af Glucose POC Glucose 273 H Hemoglobin A1c % 9.3 H Alkaline Phosphatase Lipase Urine Protein Urine Glucose (UA) Urine Ketones Urine Blood Salicylates Acetaminophen - Diagnostic Test Radiology reviewed: Reports reviewed Critical Care Note - Critical Care Note Total time excluding time spent on procedures (mins): 40 Comments: Please allow 40 minutes of critical care time spent obtaining history from patient or surrogate, discussions with consultants, development of treatment plan with patient or surrogate, evaluation of patient's response to treatment, examination of patient. This also includes ordering and reviewing laboratory, EKG and / or radiologic studies, performing and reassessing treatments and interventions as well as reviewing previous visits and old charts. This is exclusive of separately billable procedures. Discharge - Discharge Clinical Impression: IDDM (insulin dependent diabetes mellitus), Seizure Pancreatitis Qualifiers: Chronicity: chronic Pancreatitis type: other Qualified Code(s): K86.1 - Other chronic pancreatitis Abdominal pain Qualifiers: Abdominal location: epigastric Qualified Code(s): R10.13 - Epigastric pain Uncontrolled diabetes mellitus Qualifiers: Diabetes mellitus type: other specified (including JERRELL) Glycemic state: with hyperglycemia Qualified Code(s): E13.65 - Other specified diabetes mellitus with hyperglycemia Condition: Fair Disposition: ADMITTED INPATIENT Admitting Provider: Flash (Hospitalist) Unit Admitted: Telemetry Referrals: RONALD BARKER FNP-C [Primary Care Provider] - Follow up as needed
[2019-06-06] MEDS ORDERED: PROMETHAZINE HCL INJ 25 MG/1 ML VIAL IV ONE (11:32)
[2019-06-06] MEDS ORDERED: NORMAL SALINE 1000 ML 1,000 ML IV ONE (11:32)
[2019-06-06 11:35] LABS: APPEARANCE,URINE CLOUDY; BILIRUBIN,URINE NEGATIVE (NEGATIVE); COLOR,URINE YELLOW; GLUCOSE, URINE >=500 mg/dL (NEGATIVE); KETONES,URINE TRACE mg/dL (NEGATIVE); LEUKOCYTE ESTERASE,URINE NEGATIVE (NEGATIVE); NITRITE,URINE NEGATIVE (NEGATIVE); PROTEIN,URINE >=500 mg/dL (NEGATIVE); URINE SPECIFIC GRAVITY 1.012; UROBILINOGEN,URINE NEGATIVE mg/dL (<2.0)
[2019-06-06 11:48] LABS: URINE AMPHETAMINES SCREEN NEGATIVE; URINE BARBITURATES SCREEN NEGATIVE; URINE BENZODIAZEPINES SCREEN NEGATIVE; URINE COCAINE SCREEN NEGATIVE; URINE METHADONE SCREEN NEGATIVE; URINE PHENCYCLIDINE SCREEN NEGATIVE
[2019-06-06 11:49] LABS: URINE MARIJUANA (THC) SCREEN UNCONFIRMED POSITIVE
[2019-06-06 11:51] LABS: ABSOLUTE BASOPHILS # (AUTO) 0.1 10^3/uL (0.0-0.2); ABSOLUTE LYMPHOCYTES (AUTO) 1.1 10^3/uL (0.5-4.7); ABSOLUTE MONOCYTES (AUTO) 0.3 10^3/uL (0.1-1.4); ABSOLUTE NEUT (AUTO) 9.2 10^3/uL (1.7-8.2); BASOPHILS % (AUTO) 0.7 % (0-2); EOSINOPHILS % (AUTO) 0.3 % (0-6); HEMOGLOBIN 12.5 g/dL (12.0-15.5); LYMPHOCYTES % (AUTO) 10.4 % (13-45); MEAN CORPUSCULAR HEMOGLOBIN 29.2 pg (27.0-33.4); MEAN CORPUSCULAR HGB CONC 34.6 g/dL (32.0-36.0); MEAN CORPUSCULAR VOLUME 84 fl (80-97); MONOCYTES % (AUTO) 3.2 % (3-13); PLATELET COUNT 313 10^3/uL (150-450); RED BLOOD COUNT 4.27 10^6/uL (3.72-5.28); RED CELL DISTRIBUTION WIDTH 15.7 % (11.5-14.0); SEGMENTED NEUTROPHILS % (AUTO) 85.4 % (42-78); TOTAL CELLS COUNTED % (AUTO) 100 %; WHITE BLOOD COUNT 10.8 10^3/uL (4.0-10.5)
[2019-06-06 12:12] LABS: ACETAMINOPHEN < 10 ug/mL (10-30); ALBUMIN 4.6 g/dL (3.5-5.0); ALCOHOL < 10 mg/dL (NONE DETECTED); ALKALINE PHOSPHATASE 162 U/L (38-126); ANION GAP 12 (5-19); ASPARTATE AMINO TRANSFERASE 24 U/L (14-36); BILIRUBIN,DIRECT 0.1 mg/dL (0.0-0.4); BILIRUBIN,TOTAL 0.5 mg/dL (0.2-1.3); BLOOD UREA NITROGEN 27 mg/dL (7-20); CALCIUM 9.9 mg/dL (8.4-10.2); CARBON DIOXIDE 24 mmol/L (22-30); CHLORIDE 102 mmol/L (98-107); GLUCOSE 253 mg/dL (75-110); POTASSIUM 4.6 mmol/L (3.6-5.0); SALICYLATE < 1.0 mg/dL (2.0-20.0); TOTAL PROTEIN 7.9 g/dL (6.3-8.2)
[2019-06-06] MEDS ORDERED: LORAZEPAM INJ 2 MG/1 ML VIAL IV ONE ×2 (13:37→13:46)
--- NOTE | 2019-06-06 15:39 | RADIOLOGY REPORT (SQ) ---
EXAM DESCRIPTION: CT HEAD WITHOUT IMAGES COMPLETED DATE/TIME: 06/06/2019 3:19 pm REASON FOR STUDY: AMS COMPARISON: None. TECHNIQUE: Axial images acquired through the brain without intravenous contrast. Images reviewed wi th bone, brain and subdural windows. Additional sagittal and coronal reconstructions were generated. Images stored on PACS. All CT scanners at this facility use dose modulation, iterative reconstruction, and/or weight based d osing when appropriate to reduce radiation dose to as low as reasonably achievable (ALARA). [facility]: Dose Right [facility]: CareDose [facility]: Dose Right [facility]: Teradose 4D [facility]: ROKT RADIATION DOSE: CT Rad equipment meets quality standard of care and radiation dose reduction techniq ues were employed. CTDIvol: 48.6 mGy. DLP: 978 mGy-cm. mGy. LIMITATIONS: None. FINDINGS: VENTRICLES: Normal size and contour. CEREBRUM: No masses. No hemorrhage. No midline shift. No evidence for acute infarction. Normal gra y/white matter differentiation. No areas of low density in the white matter. CEREBELLUM: No masses. No hemorrhage. No alteration of density. No evidence for acute infarction. EXTRAAXIAL SPACES: No fluid collections. No masses. ORBITS AND GLOBE: No intra- or extraconal masses. Normal contour of globe without masses. CALVARIUM: No fracture. PARANASAL SINUSES: No fluid or mucosal thickening. SOFT TISSUES: No mass or hematoma. OTHER: No other significant finding. IMPRESSION: NORMAL BRAIN CT WITHOUT CONTRAST. EVIDENCE OF ACUTE STROKE: NO. COMMENT: Quality ID # [id number]: Final reports with documentation of one or more dose reduction techniques (e.g., Automated exposure control, adjustment of the mA and/or kV according to patient size, use of iterative reconstruction technique) TECHNICAL DOCUMENTATION: JOB ID: [id number] 2010 [employer]- All Rights Reserved Reading location - IP/workstation name: [email or web address]
[2019-06-06] MEDS ORDERED: LEVETIRACETAM 1000 MG/NACL-ISO 1,000 MG/100 ML RTUPB IV ONE (15:58)
[2019-06-06] MEDS ORDERED: ACETAMINOPHEN 325 MG TABLET PO PRN (17:24)
[2019-06-06] MEDS ORDERED: ONDANSETRON 4 MG TAB.RAPDIS PO PRN (17:24)
[2019-06-06] MEDS ORDERED: IPRATROPIUM/ALBUTEROL 0.5-2.5 MG/3 ML AMPUL NEB PRN (17:24)
[2019-06-06] MEDS ORDERED: HYDRALAZINE HCL INJ/PF 20 MG/1 ML SDV IV PRN (17:32)
[2019-06-06] MEDS ORDERED: LORAZEPAM INJ 2 MG/1 ML VIAL IV PRN (17:34)
[2019-06-06] MEDS ORDERED: DEXTROSE 40% GEL 15 GM TUBE PO PRN ×2 (17:35)
[2019-06-06] MEDS ORDERED: GLUCAGON,HUMAN RECOMB 1 MG INJ IM PRN (17:35)
[2019-06-06] MEDS ORDERED: DEXTROSE 50%-WATER 25 GM/50 ML DISP.SYRIN IV PRN ×2 (17:35)
--- NOTE | 2019-06-06 17:54 | PDOC H&P ---
History of Present Illness Admission Date/PCP: 06/06/19 16:47 RONALD BARKER, LYNNE Patient complains of: atient presents to the emergency room with complaints of being unresponsive. She apparently was found by her family members to be unresponsive and they called 911 this morning. In the emergency room patient was apparently minimally alert and unresponsive. History of Present Illness: JJ HOFFMAN is a 38 year old female Patient presents to the emergency room with complaints of being unresponsive. She apparently was found by her family members to be unresponsive and they called 911 this morning. In the emergency room patient was apparently minimally alert and unresponsive. She was complaining of abdominal pain and apparently stated she had decreased intake because of the pain. While she was being monitored in the emergency room patient apparently was noted to have a seizure. The precise manifestation is unclear. The emergency room physician said he did observe the seizure and a believe to to be genuine seizure. Patient apparently had labored breathing at the time and she also had a left-sided tongue injury with incontinence according to reports. She was given 2 mg of IV Ativan. Blood sugar was found to be 200 however patient's her blood pressure was pretty high with systolic more than 200. She has not had any further seizure. Discussion of the brain that was done was negative Patient was still somewhat lethargic and I was unable to obtain much information from her. I did know if this is post ictal or secondary to the Ativan or combination of both Past Medical History Cardiac Medical History: Reports: Hyperlipidema, Hypertension Pulmonary Medical History: Reports: Chronic Obstructive Pulmonary Disease (COPD) Neurological Medical History: Reports: Seizures Endocrine Medical History: Reports: Diabetes Mellitus Type 2 GI Medical History: Reports: Gastroesophageal Reflux Disease Musculoskeltal Medical History: Skin Medical History: Psychiatric Medical History: Reports: Depression Hematology: Reports: Anemia Denies: Bleeding Tendencies Past Surgical History Past Surgical History: Reports: Section - x3, Hysterectomy Social History Information Source: [facility] Records Lives with: Family Smoking Status: Current Every Day Smoker Frequency of Alcohol Use: Social Hx Recreational Drug Use: Yes Drugs: Marijuana Hx Prescription Drug Abuse: No - Advance Directive Resuscitation Status: Full Code Family History Family History: Reviewed & Not Pertinent, DM, Hypertension Parental Family History Reviewed: Yes Children Family History Reviewed: Yes Sibling(s) Family History Reviewed.: Yes Medication/Allergy Home Medications: Insulin Aspart [Novolog Flexpen] 10 unit SUBCUT ACHS 10/25/19 Amlodipine Besylate [Norvasc 10 mg Tablet] 10 mg PO DAILY #30 03/26/19 Lisinopril [Prinivil] 20 mg PO DAILY #30 tablet 03/26/19 Insulin Glargine,Hum.rec.anlog [Lantus Insulin 100 Unit/1 ml 10 ml] 40 unit CALVERT BCUT DAILY 06/06/19 Metoprolol Tartrate [Lopressor 50 mg Tablet] 50 mg PO DAILY 06/06/19 Allergies/Adverse Reactions: hydrocodone [From [place]] Allergy (Verified 03/18/19 12:42) morphine Allergy (Verified 03/18/19 12:42) Penicillins Allergy (Verified 03/18/19 12:42) prednisone Allergy (Verified 03/18/19 12:42) Edema Review of Systems ROS unobtainable: Due to mental status Physical Exam Vital Signs: Temp Pulse Resp BP Pulse Ox 98.7 F 104 H 15 193/173 H 100 06/06/19 11:15 06/06/19 11:15 06/06/19 17:02 06/06/19 17:02 06/06/19 17:02 Intake & Output 06/05/19 06/06/19 06/07/19 06:59 06:59 06:59 Intake Total 1100 Balance 1100 Weight 55.4 kg General appearance: PRESENT: other - Chronically ill looking older looking than stated age Head exam: PRESENT: normocephalic Mouth exam: PRESENT: dry mucosa Neck exam: ABSENT: JVD, tenderness Respiratory exam: PRESENT: clear to auscultation teddy, unlabored. ABSENT: rhonchi Cardiovascular exam: PRESENT: RRR, +S1, +S2 GI/Abdominal exam: PRESENT: normal bowel sounds, soft Rectal exam: PRESENT: deferred Extremities exam: ABSENT: calf tenderness Musculoskeletal exam: PRESENT: normal inspection Neurological exam: PRESENT: altered, other - unable to fully assess Results Laboratory Results: 06/06/19 11:29 06/06/19 11:29 06/06/19 06/06/19 06/06/19 11:06 11:29 11:29 WBC 10.8 H RBC 4.27 Hgb 12.5 Hct 36.0 MCV 84 MCH 29.2 MCHC 34.6 RDW 15.7 H Plt Count 313 Seg Neutrophils % 85.4 H Sodium 137.6 Potassium 4.6 Chloride 102 Carbon Dioxide 24 Anion Gap 12 BUN 27 H Creatinine 1.67 H Est GFR ( Amer) 42 L Glucose 253 H Lactic Acid Calcium 9.9 Total Bilirubin 0.5 AST 24 Alkaline Phosphatase 162 H Total Protein 7.9 Albumin 4.6 Lipase 443.8 H Urine Color YELLOW Urine Appearance CLOUDY Urine pH 5.0 Ur Specific [place] 1.012 Urine Protein >=500 H Urine Glucose (UA) >=500 H Urine Ketones TRACE H Urine Blood MODERATE H Urine Nitrite NEGATIVE Ur Leukocyte Esterase NEGATIVE Urine WBC (Auto) 4 Urine RBC (Auto) 4 06/06/19 11:29 WBC RBC Hgb Hct MCV MCH MCHC RDW Plt Count Seg Neutrophils % Sodium Potassium Chloride Carbon Dioxide Anion Gap BUN Creatinine Est GFR ( Amer) Glucose Lactic Acid 2.1 Calcium Total Bilirubin AST Alkaline Phosphatase Total Protein Albumin Lipase Urine Color Urine Appearance Urine pH Ur Specific [place] Urine Protein Urine Glucose (UA) Urine Ketones Urine Blood Urine Nitrite Ur Leukocyte Esterase Urine WBC (Auto) Urine RBC (Auto) Impressions: Head CT 06/06/19 13:43 IMPRESSION: NORMAL BRAIN CT WITHOUT CONTRAST. EVIDENCE OF ACUTE STROKE: NO. Assessment and Plan - Diagnosis (1) Hypertensive emergency Is this a current diagnosis for this admission?: Yes Plan: Patient will be placed on parenteral antihypertensive as well as trans-abdominal Nitropaste. Since she is currently n.p.o. we will continue with her oral medications judiciously. (2) Seizure Is this a current diagnosis for this admission?: Yes Plan: Patient was found to have a seizure activity in the ER. It is unclear to me if this is a true seizure although the ED ER physician was convinced this was degeneration. Looking at patient's record it looks like she has had episodes of pseudoseizures. Patient will be monitored on IMCU. EEG will be obtained if available. She will be placed on Keppra. CT scan has been done which is negative. Drug screen is negative. The only possible correlation I see here is that patient's blood pressure was pretty elevated with a systolic of more than 200 (3) Type 1 diabetes mellitus with hyperglycemia Is this a current diagnosis for this admission?: Yes Plan: Blood Glucose is actually not [id number] like usual. Will place her on sliding scale insulin (4) CKD (chronic kidney disease) stage 3, GFR 30-59 ml/min Is this a current diagnosis for this admission?: Yes Plan: Kidney function appears to be pretty close to baseline. This is likely secondary to underlying diabetic disease - Time Time Spent with patient: 35 or more minutes Anticipated discharge: Home Within: within 48 hours - Inpatient Certification Based on my medical assessment, after consideration of the patient's com orbidities, presenting symptoms, or acuity I expect that the services needed warrant INPATIENT care.: Yes Medical Necessity: Risk of Complication if Not Cared For in Hospital, Risk of Diagnosis Which Will Require Inpatient Eval/Care/Monitoring
[2019-06-06] MEDS: NORMAL SALINE 1000 ML 1,000 ML IV PRN (18:15)
[2019-06-06] MEDS: NITROGLYCERIN 2% OINTMENT 1 GM PACKET TP SCH (19:22)
[2019-06-06] MEDS ORDERED: HYDROMORPHONE HCL INJ/PF 2 MG/ML AMPULE IV PRN ×4 (19:45→19:50)
[2019-06-06] MEDS: FAMOTIDINE INJ/PF 20 MG/2 ML SDV IV SCH (21:59)
[2019-06-06] MEDS: INSULIN REG, HUMAN 100 UNIT/ML 3 ML VIAL (PYX) SUBCUT SCH (21:59)
[2019-06-06] MEDS ORDERED: FAMOTIDINE INJ/PF 20 MG/2 ML SDV IV SCH (22:00)
[2019-06-07] MEDS: NITROGLYCERIN 2% OINTMENT 1 GM PACKET TP SCH ×4 (00:46→17:07)
[2019-06-07] MEDS ORDERED: LEVETIRACETAM 1000 MG/NACL-ISO 1,000 MG/100 ML RTUPB IV SCH (06:00)
[2019-06-07 06:33] LABS: HEMATOCRIT 28.6 % (36.0-47.0); MEAN CORPUSCULAR HEMOGLOBIN 28.9 pg (27.0-33.4); MEAN CORPUSCULAR HGB CONC 34.3 g/dL (32.0-36.0); MEAN CORPUSCULAR VOLUME 84 fl (80-97); PLATELET COUNT 299 10^3/uL (150-450); RED BLOOD COUNT 3.39 10^6/uL (3.72-5.28); RED CELL DISTRIBUTION WIDTH 15.3 % (11.5-14.0); WHITE BLOOD COUNT 9.2 10^3/uL (4.0-10.5)
[2019-06-07 06:36] LABS: HEMOGLOBIN 9.8 g/dL (12.0-15.5)
[2019-06-07 06:51] LABS: ANION GAP 5 (5-19); BLOOD UREA NITROGEN 22 mg/dL (7-20); CARBON DIOXIDE 22 mmol/L (22-30); CHLORIDE 110 mmol/L (98-107)
[2019-06-07 07:10] LABS: GLUCOSE 33 mg/dL (75-110)
[2019-06-07 07:11] LABS: POTASSIUM 3.7 mmol/L (3.6-5.0)
[2019-06-07] MEDS: NORMAL SALINE 1000 ML 1,000 ML IV PRN ×2 (07:27→17:08)
[2019-06-07] MEDS: INSULIN REG, HUMAN 100 UNIT/ML 3 ML VIAL (PYX) SUBCUT SCH ×4 (08:25→21:39)
[2019-06-07] MEDS: METOPROLOL TARTRATE 50 MG TABLET PO SCH (09:36)
[2019-06-07] MEDS: LISINOPRIL 10 MG TABLET PO SCH (09:36)
[2019-06-07] MEDS: AMLODIPINE BESYLATE 10 MG TABLET PO SCH (09:36)
[2019-06-07] MEDS: ENOXAPARIN SODIUM INJ 40 MG/0.4 ML DISP.SYRIN SUBCUT SCH (09:36)
[2019-06-07] MEDS ORDERED: INSULIN GLARGINE,HUM.REC.ANLOG 1,000 UNIT/10 ML VIAL SUBCUT SCH ×3 (10:00→18:00)
[2019-06-07] MEDS ORDERED: (PENDING PHARMACY ID) (Lisinopril [Prinivil] 20 MG) PO SCH (10:00)
--- NOTE | 2019-06-07 11:51 | PDOC PROGRESS REPORT ---
Subjective Progress Note for:: 06/07/19 Subjective:: Patient is still complaining of abdominal pain. It is mostly in the epigastric area. She did have a hypoglycemic episode this morning and reported to the nurse that she adjusts her Lantus at home. She is somewhat sleepy this morning. Reason For Visit: NEW ONSET SEIZURE,HYPERTENSIVE EMERGENCY,TYPE 2 Physical Exam Vital Signs: Temp Pulse Resp BP Pulse Ox 98.5 F 92 14 145/91 H 99 06/07/19 11:45 06/07/19 11:45 06/07/19 11:45 06/07/19 11:45 06/07/19 11:45 Intake & Output 06/06/19 06/07/19 06/08/19 06:59 06:59 06:59 Intake Total 1200 1000 Balance 1200 1000 Weight 52.4 kg General appearance: PRESENT: cooperative, thin - Thin 38-year-old female in moderate distress resting in bed., well-developed Head exam: PRESENT: atraumatic, normocephalic Ear exam: PRESENT: normal external ear exam. ABSENT: bleeding, drainage Mouth exam: PRESENT: moist, tongue midline Respiratory exam: PRESENT: clear to auscultation teddy, symmetrical, unlabored. ABSENT: rales, rhonchi, tachypnea, wheezes Cardiovascular exam: PRESENT: RRR, +S1, +S2. ABSENT: diastolic murmur, systolic murmur GI/Abdominal exam: PRESENT: diminished bowel sounds, soft, tenderness - Epigastric area. ABSENT: distended, guarding Rectal exam: PRESENT: deferred Gentrourinary exam: ABSENT: indwelling catheter Extremities exam: ABSENT: pedal edema Musculoskeletal exam: PRESENT: ambulatory, normal inspection. ABSENT: deformity Neurological exam: PRESENT: awake, oriented to person, oriented to place, oriented to situation, CN II-XII grossly intact. ABSENT: alert - Somewhat sleepy this morning, altered Psychiatric exam: PRESENT: flat affect. ABSENT: agitated, anxious Focused psych exam: ABSENT: delusional, paranoid, restlessness Skin exam: PRESENT: dry, normal color, warm. ABSENT: rash Results Laboratory Results: 06/07/19 06:21 06/07/19 06:21 06/06/19 06/06/19 06/06/19 11:29 11:29 11:29 WBC 10.8 H RBC 4.27 Hgb 12.5 Hct 36.0 MCV 84 MCH 29.2 MCHC 34.6 RDW 15.7 H Plt Count 313 Seg Neutrophils % 85.4 H Sodium 137.6 Potassium 4.6 Chloride 102 Carbon Dioxide 24 Anion Gap 12 BUN 27 H Creatinine 1.67 H Est GFR ( Amer) 42 L Glucose 253 H Lactic Acid 2.1 Calcium 9.9 Magnesium Total Bilirubin 0.5 AST 24 Alkaline Phosphatase 162 H Total Protein 7.9 Albumin 4.6 Lipase 443.8 H 06/07/19 06/07/19 06:21 06:21 WBC 9.2 RBC 3.39 L Hgb 9.8 L D Hct 28.6 L MCV 84 MCH 28.9 MCHC 34.3 RDW 15.3 H Plt Count 299 Seg Neutrophils % Sodium 137.3 Potassium 3.7 Chloride 110 H Carbon Dioxide 22 Anion Gap 5 BUN 22 H Creatinine 1.61 H Est GFR ( Amer) 43 L Glucose 33 L* Lactic Acid Calcium 9.0 Magnesium 1.9 Total Bilirubin AST Alkaline Phosphatase Total Protein Albumin Lipase Impressions: Head CT 06/06/19 13:43 IMPRESSION: NORMAL BRAIN CT WITHOUT CONTRAST. EVIDENCE OF ACUTE STROKE: NO. Assessment and Plan - Diagnosis (1) Hypertensive emergency Is this a current diagnosis for this admission?: Yes Plan: Patient will be placed on parenteral antihypertensive as well as trans-abdominal Nitropaste. Since she is currently n.p.o. we will continue with her oral medications judiciously. 06/07/2019 With the above-noted regimen the patient's blood pressure is slowly improving. I do not want to correct it too quickly. A goal would be systolic blood pressure ranging 130 and 145 tomorrow. We will also monitor her pulse rate. I will work the nitroglycerin dose to off and likely need to compensate somewhat with her oral medications. (2) Seizure Is this a current diagnosis for this admission?: Yes Plan: Patient was found to have a seizure activity in the ER. It is unclear to me if this is a true seizure although the ED ER physician was convinced this was degeneration. Looking at patient's record it looks like she has had episodes of pseudoseizures. Patient will be monitored on IMCU. EEG will be obtained if available. She will be placed on Keppra. CT scan has been done which is negative. Drug screen is negative. The only possible correlation I see here is that patient's blood pressure was pretty elevated with a systolic of more than 200 06/07/2019 She does have a history of pseudoseizures. The patient did have an EEG and this was interpreted as normal. It is possible that the hypertensive emergency could have triggered seizure activity. I will continue the Keppra but decrease the dose after 1 to 2 days and likely discharge the patient on Keppra, rerefer her back to her primary care provider and then they can decide about weaning the Keppra to off. (3) Type 1 diabetes mellitus with hyperglycemia Is this a current diagnosis for this admission?: Yes Plan: Blood Glucose is actually not [id number] like usual. Will place her on sliding scale insulin 06/07/2019 The patient was started back on her Lantus with sliding scale. Unfortunately she had a hypoglycemic event this morning. She will continue on sliding scale but I will decrease her Lantus. She states that she sometimes adjusts her Lantus at home based on her Accu-Cheks. We will continue the sliding scale. I will gradually tighten control during this hospitalization by adjusting her medications. Her appetite was fair this morning and she was asking for lunch and so hopefully her oral intake will be consistent. (4) CKD (chronic kidney disease) stage 3, GFR 30-59 ml/min Is this a current diagnosis for this admission?: Yes Plan: Kidney function appears to be pretty close to baseline. This is likely seconda ry to underlying diabetic disease 06/07/2019 We will continue to monitor with serial laboratory studies. We will also monitor for changes as blood pressure improves. (5) Hypoglycemia Is this a current diagnosis for this admission?: Yes Plan: 06/07/2019 Patient had an acute hypoglycemic events this morning. Her Lantus was held. S he usually takes her Lantus in the evening anyway. I will change her Lantus to the evening and decrease the dose as outlined above. (6) Abdominal pain Qualifiers: Abdominal location: epigastric Qualified Code(s): R10.13 - Epigastric pain Is this a current diagnosis for this admission?: Yes Plan: 06/07/2019 The patient does have chronic abdominal pain. We will try and limit narcotic use. We will continue to monitor her level of discomfort. - Time Time Spent with patient: 15-24 minutes Medications reviewed and adjusted accordingly: Yes Anticipated discharge: Home Within: within 48 hours
--- NOTE | 2019-06-07 13:20 | NEURO WORKBENCH EEG REPORT ---
EEG Report Patient: Brandi Lr ID: [id number] Referring Doctor: Dariana Vdiales DOS: 06/07/2019 Medications: Norvasc, lovenox, famotidine, insulin, pyxis, Keppra, lisinopril, Lopressor, nitroglycerin, Tylenol, Ativan, Zofran History This is a 38 year old right handed woman with a history of hypercholesterolemia, hypertension, COPD, pancreatitits, GERD, renal disease, type 2 diabetes, MSK trauma, depression, anxiety, substance abuse, admitted with hypertensive emergency and seizure. This EEG was requested for seizures. EEG Interpretation This EEG was recorded in the drowsy and state with the patient noted to be snoring during the study by the ct technologist. There was no awake EEG recorded to assess background. The EEG consisted of mainly alpha in the 8Hz range with some theta and low amplitude beta activity. There were slow rolling eye movements noted throughout the study. There was reactivity to passive eye opening and closing. Vertex waves were minimally seen in the midline head regions. There was one sharply contoured waveform in the left frontal-central region that could be consistent with a vertex wave. There were no definitive epileptiform abnormalities. Photic stimulation resulted in no significant changes. The EKG showed a regular rhythm. EEG Classification Normal EEG Impression This EEG is within normal limits for age in the drowsy state only. Compared to the prior EEG dated 10/07/2017 which showed generalized background slowing it has improved and compared to the prior EEG dated 11/11/2017 which was normal in the awake and drowsy states it remains within normal limits. INTERPRETING NEUROLOGIST: Sheirce Griffin MD, FRCPC Board Certified in Neurology, with special qualification in Child Neurology, and in Clinical Neurophysiology [facility]
[2019-06-07] MEDS: HYDROMORPHONE HCL INJ/PF 2 MG/ML AMPULE IV PRN (18:36)
[2019-06-07] MEDS: INSULIN GLARGINE,HUM.REC.ANLOG 1,000 UNIT/10 ML VIAL SUBCUT SCH ×2 (21:38→21:39)
[2019-06-07] MEDS: LEVETIRACETAM 500 MG TABLET PO SCH (21:38)
[2019-06-07] MEDS: FAMOTIDINE INJ/PF 20 MG/2 ML SDV IV SCH (21:38)
[2019-06-08] MEDS: NITROGLYCERIN 2% OINTMENT 1 GM PACKET TP SCH ×2 (00:02→05:19)
[2019-06-08] MEDS: HYDROMORPHONE HCL INJ/PF 2 MG/ML AMPULE IV PRN ×2 (00:03→08:29)
[2019-06-08] MEDS: NORMAL SALINE 1000 ML 1,000 ML IV PRN ×2 (00:10→08:29)
[2019-06-08 06:13] LABS: ABSOLUTE BASOPHILS # (AUTO) 0.1 10^3/uL (0.0-0.2); ABSOLUTE EOSINOPHILS # (AUTO) 0.2 10^3/uL (0.0-0.6); ABSOLUTE LYMPHOCYTES (AUTO) 2.7 10^3/uL (0.5-4.7); ABSOLUTE MONOCYTES (AUTO) 0.8 10^3/uL (0.1-1.4); ABSOLUTE NEUT (AUTO) 5.4 10^3/uL (1.7-8.2); BASOPHILS % (AUTO) 0.6 % (0-2); EOSINOPHILS % (AUTO) 2.2 % (0-6); HEMATOCRIT 26.9 % (36.0-47.0); HEMOGLOBIN 9.2 g/dL (12.0-15.5); LYMPHOCYTES % (AUTO) 29.5 % (13-45); MEAN CORPUSCULAR HEMOGLOBIN 29.1 pg (27.0-33.4); MEAN CORPUSCULAR HGB CONC 34.3 g/dL (32.0-36.0); MEAN CORPUSCULAR VOLUME 85 fl (80-97); MONOCYTES % (AUTO) 8.3 % (3-13); PLATELET COUNT 264 10^3/uL (150-450); RED BLOOD COUNT 3.16 10^6/uL (3.72-5.28); RED CELL DISTRIBUTION WIDTH 15.4 % (11.5-14.0); SEGMENTED NEUTROPHILS % (AUTO) 59.4 % (42-78); TOTAL CELLS COUNTED % (AUTO) 100 %; WHITE BLOOD COUNT 9.2 10^3/uL (4.0-10.5)
[2019-06-08 06:38] LABS: ANION GAP 7 (5-19); BLOOD UREA NITROGEN 20 mg/dL (7-20); CALCIUM 8.6 mg/dL (8.4-10.2); CARBON DIOXIDE 22 mmol/L (22-30); CHLORIDE 110 mmol/L (98-107); GLUCOSE 191 mg/dL (75-110); POTASSIUM 4.1 mmol/L (3.6-5.0)
[2019-06-08 08:10] VITALS: BP 152/99
[2019-06-08] MEDS: INSULIN REG, HUMAN 100 UNIT/ML 3 ML VIAL (PYX) SUBCUT SCH (08:31)
[2019-06-08] MEDS: ENOXAPARIN SODIUM INJ 40 MG/0.4 ML DISP.SYRIN SUBCUT SCH (09:02)
[2019-06-08] MEDS: METOPROLOL TARTRATE 50 MG TABLET PO SCH (09:02)
[2019-06-08] MEDS: AMLODIPINE BESYLATE 10 MG TABLET PO SCH (09:02)
[2019-06-08] MEDS: LISINOPRIL 10 MG TABLET PO SCH (09:02)
[2019-06-08] MEDS: LEVETIRACETAM 500 MG TABLET PO SCH (09:02)
[2019-06-08 09:21] LABS: AMITRIPTYLINE <20 ng/mL (Not Estab.); DOXEPIN <20 ng/mL (Not Estab.); IMIPRAMINE <20 ng/mL (Not Estab.); NORDOXEPIN <20 ng/mL (Not Estab.); NORTRIPTYLINE <20 ng/mL (50-150)
--- NOTE | 2019-06-08 09:47 | PDOC DISCHARGE SUMMARY ---
Impression - Admit/DC Date/PCP Admission Date/Primary Care Provider: 06/06/19 16:47 LYNNE OLMEDO Discharge Date: 06/08/19 - Discharge Diagnosis (1) Hypertensive emergency Is this a current diagnosis for this admission?: Yes (2) Seizure Is this a current diagnosis for this admission?: Yes (3) Type 1 diabetes mellitus with hyperglycemia Is this a current diagnosis for this admission?: Yes (4) CKD (chronic kidney disease) stage 3, GFR 30-59 ml/min Is this a current diagnosis for this admission?: Yes (5) Hypoglycemia Is this a current diagnosis for this admission?: Yes (6) Abdominal pain Is this a current diagnosis for this admission?: Yes - Additional Information Resuscitation Status: Full Code Discharge Diet: Diabetic Discharge Activity: Activity As Tolerated, Balance Activity w/Rest Referrals: RONALD BARKER FNP-C [Primary Care Provider] - 06/12/19 1:15 pm Prescriptions: Levetiracetam [Keppra 500 mg Tablet] 500 mg PO Q12 15 Days #30 tablet Home Medications: Insulin Aspart [Novolog Flexpen] 10 unit SUBCUT ACHS 12/01/18 Amlodipine Besylate [Norvasc 10 mg Tablet] 10 mg PO DAILY #30 03/26/19 Lisinopril [Prinivil] 20 mg PO DAILY #30 tablet 03/26/19 Metoprolol Tartrate [Lopressor 50 mg Tablet] 50 mg PO DAILY 06/06/19 Insulin Glargine,Hum.rec.anlog [Lantus Insulin 100 Unit/1 ml 10 ml] 25 unit SUBCUT QHS unit 06/08/19 Levetiracetam [Keppra 500 mg Tablet] 500 mg PO Q12 15 Days #30 tablet 06/08/19 History of Present Illiness History of Present Illness: JJ HOFFMAN is a 38 year old female Patient presents to the emergency room with complaints of being unresponsive. She apparently was found by her family members to be unresponsive and they called 911 this morning. In the emergency room patient was apparently minimally alert and unresponsive. She was complaining of abdominal pain and apparently stated she had decreased intake because of the pain. While she was being monitored in the emergency room patient apparently was noted to have a seizure. The precise manifestation is unclear. The emergency room physician said he did observe the seizure and a believe to to be genuine seizure. Patient apparently had labored breathing at the time and she also had a left-sided tongue injury with incontinence according to reports. She was given 2 mg of IV Ativan. Blood sugar was found to be 200 however patient's her blood pressure was pretty high with systolic more than 200. She has not had any further seizure. Discussion of the brain that was done was negative Physical Exam Vital Signs: Temp Pulse Resp BP Pulse Ox 98.6 F 93 18 152/99 H 100 06/08/19 07:49 06/08/19 07:49 06/08/19 07:49 06/08/19 07:49 06/08/19 07:49 Intake & Output 06/07/19 06/08/19 06/09/19 06:59 06:59 06:59 Intake Total 1200 3919 1000 Balance 1200 3919 1000 Weight 52.4 kg 52.4 kg General appearance: PRESENT: cooperative, mild distress, well-developed Head exam: PRESENT: atraumatic, normocephalic Eye exam: PRESENT: conjunctiva pale. ABSENT: scleral icterus Mouth exam: PRESENT: moist, tongue midline Respiratory exam: PRESENT: clear to auscultation teddy, symmetrical, unlabored. ABSENT: rales, rhonchi, tachypnea, wheezes Cardiovascular exam: PRESENT: RRR, +S1, +S2. ABSENT: irregular rhythm, tachycardia GI/Abdominal exam: PRESENT: diminished bowel sounds, soft, tenderness - Epig astric area (). ABSENT: distended, guarding Rectal exam: PRESENT: deferred Gentrourinary exam: ABSENT: indwelling catheter Extremities exam: ABSENT: pedal edema Musculoskeletal exam: PRESENT: ambulatory, normal inspection Neurological exam: PRESENT: alert, awake, oriented to person, oriented to place, oriented to situation, CN II-XII grossly intact. ABSENT: altered Psychiatric exam: PRESENT: flat affect. ABSENT: agitated, anxious Focused psych exam: ABSENT: delusional, paranoid, restlessness Skin exam: PRESENT: dry, normal color, warm. ABSENT: rash Results Laboratory Results: WBC 9.2 10^3/uL (4.0-10.5) 06/08/19 05:17 RBC 3.16 10^6/uL (3.72-5.28) L 06/08/19 05:17 Hgb 9.2 g/dL (12.0-15.5) L 06/08/19 05:17 Hct 26.9 % (36.0-47.0) L 06/08/19 05:17 MCV 85 fl (80-97) 06/08/19 05:17 MCH 29.1 pg (27.0-33.4) 06/08/19 05:17 MCHC 34.3 g/dL (32.0-36.0) 06/08/19 05:17 RDW 15.4 % (11.5-14.0) H 06/08/19 05:17 Plt Count 264 10^3/uL (150-450) 06/08/19 05:17 Lymph % (Auto) 29.5 % (13-45) 06/08/19 05:17 [place] % (Auto) 8.3 % (3-13) 06/08/19 05:17 Eos % (Auto) 2.2 % (0-6) 06/08/19 05:17 Baso % (Auto) 0.6 % (0-2) 06/08/19 05:17 Absolute Neuts (auto) 5.4 10^3/uL (1.7-8.2) 06/08/19 05:17 Absolute Lymphs (auto) 2.7 10^3/uL (0.5-4.7) 06/08/19 05:17 Absolute Monos (auto) 0.8 10^3/uL (0.1-1.4) 06/08/19 05:17 Absolute Eos (auto) 0.2 10^3/uL (0.0-0.6) 06/08/19 05:17 Absolute Basos (auto) 0.1 10^3/uL (0.0-0.2) 06/08/19 05:17 Seg Neutrophils % 59.4 % (42-78) 06/08/19 05:17 Sodium 138.5 mmol/L (137-145) 06/08/19 05:17 Potassium 4.1 mmol/L (3.6-5.0) 06/08/19 05:17 Chloride 110 mmol/L (98-107) H 06/08/19 05:17 Carbon Dioxide 22 mmol/L (22-30) 06/08/19 05:17 Anion Gap 7 (5-19) 06/08/19 05:17 BUN 20 mg/dL (7-20) 06/08/19 05:17 Creatinine 1.58 mg/dL (0.52-1.25) H 06/08/19 05:17 Est GFR ( Amer) 44 (>60) L 06/08/19 05:17 Est GFR (MDRD) Non-Af 37 (>60) L 06/08/19 05:17 Glucose 191 mg/dL (75-110) H 06/08/19 05:17 POC Glucose 220 mg/dL (70-110) H 06/08/19 07:50 Hemoglobin A1c % 9.3 % (4.7-6.0) H 06/06/19 11:29 Lactic Acid 2.1 mmol/L (0.7-2.1) 06/06/19 11:29 Calcium 8.6 mg/dL (8.4-10.2) 06/08/19 05:17 Magnesium 2.0 mg/dL (1.6-2.3) 06/08/19 05:17 Total Bilirubin 0.5 mg/dL (0.2-1.3) 06/06/19 11:29 Direct Bilirubin 0.1 mg/dL (0.0-0.4) 06/06/19 11:29 Neonat Total Bilirubin Not Reportable 06/06/19 11:29 Neonat Direct Bilirubin Not Reportable 06/06/19 11:29 Neonat Indirect Bili Not Reportable 06/06/19 11:29 AST 24 U/L (14-36) 06/06/19 11:29 ALT 15 U/L (<35) 06/06/19 11:29 Alkaline Phosphatase 162 U/L (38-126) H 06/06/19 11:29 Total Protein 7.9 g/dL (6.3-8.2) 06/06/19 11:29 Albumin 4.6 g/dL (3.5-5.0) 06/06/19 11:29 Lipase 443.8 U/L (23-300) H 06/06/19 11:29 Urine Color YELLOW 06/06/19 11:06 Urine Appearance CLOUDY 06/06/19 11:06 Urine pH 5.0 (5.0-9.0) 06/06/19 11:06 Ur Specific [place] 1.012 06/06/19 11:06 Urine Protein >=500 mg/dL (NEGATIVE) H 06/06/19 11:06 Urine Glucose (UA) >=500 mg/dL (NEGATIVE) H 06/06/19 11:06 Urine Ketones TRACE mg/dL (NEGATIVE) H 06/06/19 11:06 Urine Blood MODERATE (NEGATIVE) H 06/06/19 11:06 Urine Nitrite NEGATIVE (NEGATIVE) 06/06/19 11:06 Urine Bilirubin NEGATIVE (NEGATIVE) 06/06/19 11:06 Urine Urobilinogen NEGATIVE mg/dL (<2.0) 06/06/19 11:06 Ur Leukocyte Esterase NEGATIVE (NEGATIVE) 06/06/19 11:06 Urine WBC (Auto) 4 /HPF 06/06/19 11:06 Urine RBC (Auto) 4 /HPF 06/06/19 11:06 Urine Bacteria (Auto) TRACE /HPF 06/06/19 11:06 Squamous Epi Cells Auto 1 /HPF 06/06/19 11:06 Urine Mucus (Auto) RARE /LPF 06/06/19 11:06 Urine Yeast (Budding) PRESENT /HPF 06/06/19 11:06 Urine Ascorbic Acid NEGATIVE (NEGATIVE) 06/06/19 11:06 Urine HCG, Qual NEGATIVE (NEGATIVE) 06/06/19 11:06 Salicylates < 1.0 mg/dL (2.0-20.0) L 06/06/19 11:29 Urine Opiates Screen NEGATIVE 06/06/19 11:06 Urine Methadone Screen NEGATIVE 06/06/19 11:06 Acetaminophen < 10 ug/mL (10-30) L 06/06/19 11:29 Ur Barbiturates Screen NEGATIVE 06/06/19 11:06 Ur Phencyclidine Scrn NEGATIVE 06/06/19 11:06 Ur Amphetamines Screen NEGATIVE 06/06/19 11:06 U Benzodiazepines Scrn NEGATIVE 06/06/19 11:06 Urine Cocaine Screen NEGATIVE 06/06/19 11:06 U Marijuana (THC) Screen UNCONFIRMED POSITIVE 06/06/19 11:06 Serum Alcohol < 10 mg/dL (NONE DETECTED) 06/06/19 11:29 Impressions: Head CT 06/06/19 13:43 IMPRESSION: NORMAL BRAIN CT WITHOUT CONTRAST. EVIDENCE OF ACUTE STROKE: NO. Plan Health Concerns: Recurrent admissions with chronic pancreatitis and diabetes. Normal EEG possible pseudoseizures. Plan of Treatment: The patient will be discharged on 500 mg of Keppra twice a day and likely be able to taper off at the discretion of her primary care provider. Her blood pressure needs to be under better control as well. Goals: Good blood pressure control. Taper off of Keppra. Time Spent: Greater than 30 Minutes Stroke Is this a Stroke Patient?: No Acute Heart Failure - Is this a Heart Failure Patient?: No
== END 2019-06-08 11:19 | disposition home or self-care (01) | DRG 638 ==
LOC: ER 10:48 → EH 16:47 → 3W 19:07
PROVIDERS: ADMIT Internal Medicine; ATTEND Hospitalist
DX: E10.65 Type 1 diabetes mellitus with hyperglycemia (principal); K86.1 Other chronic pancreatitis; I16.0 Hypertensive urgency; E78.00 Pure hypercholesterolemia, unspecified; E10.22 Type 1 diabetes mellitus with diabetic chronic kidney disease; N18.3 Chronic kidney disease, stage 3 (moderate); J44.9 Chronic obstructive pulmonary disease, unspecified; R56.9 Unspecified convulsions; K21.9 Gastro-esophageal reflux disease without esophagitis; F41.8 Other specified anxiety disorders; F17.210 Nicotine dependence, cigarettes, uncomplicated; Z79.4 Long term (current) use of insulin
CPT/HCPCS: 36415; 70450; 80048; 80053; 80307; 81001; 81025; 82010; 82542; 82962; 83036; 83605; 83690; 83735; 85025; 85027; 95819; 96361; 96365; 96375; 99291; J0360; J1170; J1650; J1815; J1953; J2060; J2550; J3490; J7030; S0028

== ENCOUNTER 2019-06-12 18:50 | Emergency (ER) | payer MEDICAID ==
[2019-06-12] MEDS ORDERED: HYDROMORPHONE HCL INJ/PF 2 MG/ML AMPULE IV ONE ×2 (20:36→23:39)
--- NOTE | 2019-06-12 20:36 | ER Document Report ---
ED General - General Chief Complaint: Abdominal Pain Stated Complaint: ABDOMINAL PAIN Time Seen by Provider: 06/12/19 20:24 Primary Care Provider: RONALD BARKER FNP-C [Primary Care Provider] - Follow up as needed Information source: Patient Notes: ava tavarez Pt presents to the ED via EMS for CC of abdominal pain. EMS reports that pt has chronic pancreatitis and has her normal abdominal pain. EMS reports that pt has a BGL of 500. EMS reports that pt states her BGL was 270 and gave herself insulin. Pt denies any other symptoms or pain. Pt breathing e/u. NAD noted. my note; 38-year-old black female arrives with chief complaint of pancreatitis pain pointing to her epigastric area. She reports she has a history of this and her symptoms began early this morning. She reports she was just here a few days ago with similar symptoms. She reports at least several times a month she has a pancreatitis attack.. She denies any vomiting but does admit to nausea. She denies any dysuria hematuria hematemesis cough or cold symptoms fever chills or trauma or abuse. She denies any recent alcohol or high lipids in her bloodstream TRAVEL OUTSIDE OF THE [place] IN LAST 30 DAYS: No - HPI Onset: This morning Severity: Severe Pain Level: 5 Associated symptoms: Nausea Exacerbated by: Movement, Food Relieved by: Denies Similar symptoms previously: Yes Recently seen / treated by doctor: Yes - Related Data Allergies/Adverse Reactions: hydrocodone [From Ralph] Allergy (Verified 03/18/19 12:42) morphine Allergy (Verified 03/18/19 12:42) Penicillins Allergy (Verified 03/18/19 12:42) prednisone Allergy (Verified 03/18/19 12:42) Edema Past Medical History - General Information source: Patient - Social History Smoking Status: Unknown if Ever Smoked Cigarette use (# per day): No Chew tobacco use (# tins/day): No Smoking Education Provided: No Lives with: Family Family History: Reviewed & Not Pertinent, DM, Hypertension Patient has homicidal ideation: No - Past Medical History Cardiac Medical History: Reports: Hx Hypercholesterolemia, Hx Hypertension Pulmonary Medical History: Reports: Hx COPD Neurological Medical History: Reports: Hx Seizures Endocrine Medical History: Reports: Hx Diabetes Mellitus Type 2 Renal/ Medical History: Reports: Hx Renal Insufficiency GI Medical History: Reports: Hx Gastroesophageal Reflux Disease, Hx Pancreatitis Musculoskeletal Medical History: Reports Hx Musculoskeletal Trauma Skin Medical History: Psychiatric Medical History: Reports: Hx Anxiety, Hx Depression Past Surgical History: Reports: Hx Section - x3, Hx Hysterectomy - Immunizations Immunizations up to date: Yes Hx Diphtheria, Pertussis, Tetanus Vaccination: No Review of Systems - Review of Systems Constitutional: See HPI, Malaise, Weakness, Recent illness EENT: No symptoms reported Cardiovascular: No symptoms reported Respiratory: No symptoms reported Gastrointestinal: See HPI, Abdominal pain, Nausea, Poor appetite, Poor fluid intake. denies: Abdomen distended, Vomiting, Constipation, Blood streaked bowels, Blood in vomit, Black stools, Rectal bleeding, Fecal incontinence Genitourinary: No symptoms reported Female Genitourinary: No symptoms reported Musculoskeletal: No symptoms reported Skin: No symptoms reported Hematologic/Lymphatic: No symptoms reported Neurological/Psychological: No symptoms reported Physical Exam - Vital signs Vitals: Resp 28 H 06/12/19 18:56 Interpretation: Normal, Tachycardic, Tachypneic - General General appearance: Appears well, Alert - HEENT Head: Normocephalic, Atraumatic Eyes: Normal Pupils: PERRL - Respiratory Respiratory status: No respiratory distress Chest status: Nontender Breath sounds: Normal Chest palpation: Normal - Cardiovascular Rhythm: Regular Heart sounds: Normal auscultation Murmur: No - Abdominal Inspection: Normal Distension: No distension Bowel sounds: Hyperactive Tenderness: Tender Organomegaly: No organomegaly - Back Back: Normal, Nontender - Extremities General upper extremity: Normal inspection, Nontender, Normal color, Normal ROM, Normal temperature General lower extremity: Normal inspection, Nontender, Normal color, Normal ROM, Normal temperature, Normal weight bearing. No: Raheem's sign - Neurological Neuro grossly intact: Yes Cognition: Normal Orientation: AAOx4 [place] Coma Scale Eye Opening: Spontaneous [place] Coma Scale Verbal: Oriented [place] Coma Scale Motor: Obeys Commands [place] Coma Scale Total: 15 Speech: Normal Motor strength normal: LUE, RUE, LLE, RLE Sensory: Normal - Psychological Associated symptoms: Normal affect, Normal mood - Skin Skin Temperature: Warm Skin Moisture: Dry Skin Color: Normal Course - Vital Signs Vital signs: Temp Pulse Resp BP Pulse Ox 98.2 F 38 H 201/96 H 99 06/12/19 19:31 06/12/19 23:01 06/12/19 23:01 06/12/19 22:00 - Laboratory Result Diagrams: 06/12/19 19:07 06/12/19 19:07 Laboratory results interpreted by me: 06/12/19 06/12/19 06/12/19 19:07 19:07 20:35 Hgb 11.0 L Hct 32.3 L RDW 15.4 H Seg Neutrophils % 80.0 H Sodium 134.7 L BUN 29 H Creatinine 1.62 H Est GFR ( Amer) 43 L Est GFR (MDRD) Non-Af 36 L Glucose 428 H* POC Glucose Alkaline Phosphatase 131 H Lipase 652.5 H Urine Protein 100 H Urine Glucose (UA) >=500 H Urine Ketones TRACE H Urine Blood SMALL H 06/12/19 23:33 Hgb Hct RDW Seg Neutrophils % Sodium BUN Creatinine Est GFR ( Amer) Est GFR (MDRD) Non-Af Glucose POC Glucose 360 H Alkaline Phosphatase Lipase Urine Protein Urine Glucose (UA) Urine Ketones Urine Blood Critical Care Note - Critical Care Note Total time excluding time spent on procedures (mins): 90 Comments: Both myself and nursing staff examined patient after second dose of 2 mg Dilaudid IV and patient continued to have abdominal pain and advised her that she can no longer receive any more narcotics to keep her breathing. I will write for Haldol 5 mg IV and will try labetalol if her blood pressure continues to be elevated. Discharge - Discharge Clinical Impression: Pancreatitis Qualifiers: Chronicity: acute Pancreatitis type: unspecified pancreatitis type Acute pancreatitis complication: unspecified Qualified Code(s): K85.90 - Acute pancreatitis without necrosis or infection, unspecified Hypertension Qualifiers: Hypertension type: unspecified Qualified Code(s): I10 - Essential (primary) hypertension Abdominal pain Qualifiers: Abdominal location: unspecified location Qualified Code(s): R10.9 - Unspecified abdominal pain Chronic pancreatitis Qualifiers: Pancreatitis type: unspecified pancreatitis type Qualified Code(s): K86.1 - Other chronic pancreatitis Condition: Fair Disposition: HOME, SELF-CARE Additional Instructions: Consume liquids until tolerating brat diet that is bananas rice applesauce toast caitlyn paco; return to ER as needed take medicines as directed encourage fluids Prescriptions: Chlorzoxazone [Parafon Forte Dsc 500 Mg Tablet] 500 mg PO BID PRN #20 tablet PRN Reason: Referrals: RONALD BARKER, DIETARY DIRECTOR-C [Primary Care Provider] - Follow up as needed
[2019-06-12] MEDS ORDERED: PROMETHAZINE HCL INJ 25 MG/1 ML VIAL IV ONE (20:37)
[2019-06-12] MEDS ORDERED: NORMAL SALINE 1000 ML 1,000 ML IV ONE (20:38)
[2019-06-12 20:58] LABS: ABSOLUTE EOSINOPHILS # (AUTO) 0.1 10^3/uL (0.0-0.6); ABSOLUTE LYMPHOCYTES (AUTO) 1.1 10^3/uL (0.5-4.7); ABSOLUTE MONOCYTES (AUTO) 0.2 10^3/uL (0.1-1.4); ABSOLUTE NEUT (AUTO) 5.7 10^3/uL (1.7-8.2); BASOPHILS % (AUTO) 0.5 % (0-2); EOSINOPHILS % (AUTO) 0.9 % (0-6); HEMATOCRIT 32.3 % (36.0-47.0); LYMPHOCYTES % (AUTO) 15.2 % (13-45); MEAN CORPUSCULAR HEMOGLOBIN 29.1 pg (27.0-33.4); MEAN CORPUSCULAR HGB CONC 34.1 g/dL (32.0-36.0); MEAN CORPUSCULAR VOLUME 85 fl (80-97); MONOCYTES % (AUTO) 3.4 % (3-13); PLATELET COUNT 347 10^3/uL (150-450); RED BLOOD COUNT 3.78 10^6/uL (3.72-5.28); RED CELL DISTRIBUTION WIDTH 15.4 % (11.5-14.0); TOTAL CELLS COUNTED % (AUTO) 100 %; WHITE BLOOD COUNT 7.1 10^3/uL (4.0-10.5)
[2019-06-12 21:01] LABS: ALBUMIN 3.9 g/dL (3.5-5.0); ALKALINE PHOSPHATASE 131 U/L (38-126); ANION GAP 9 (5-19); ASPARTATE AMINO TRANSFERASE 21 U/L (14-36); BILIRUBIN,DIRECT 0.1 mg/dL (0.0-0.4); BILIRUBIN,TOTAL 0.3 mg/dL (0.2-1.3); BLOOD UREA NITROGEN 29 mg/dL (7-20); CALCIUM 9.5 mg/dL (8.4-10.2); CARBON DIOXIDE 27 mmol/L (22-30); CHLORIDE 99 mmol/L (98-107); POTASSIUM 4.3 mmol/L (3.6-5.0); TOTAL PROTEIN 6.8 g/dL (6.3-8.2)
[2019-06-12 21:07] LABS: APPEARANCE,URINE CLEAR; BILIRUBIN,URINE NEGATIVE (NEGATIVE); COLOR,URINE STRAW; GLUCOSE, URINE >=500 mg/dL (NEGATIVE); KETONES,URINE TRACE mg/dL (NEGATIVE); LEUKOCYTE ESTERASE,URINE NEGATIVE (NEGATIVE); NITRITE,URINE NEGATIVE (NEGATIVE); PROTEIN,URINE 100 mg/dL (NEGATIVE); URINE SPECIFIC GRAVITY 1.017; UROBILINOGEN,URINE NEGATIVE mg/dL (<2.0)
[2019-06-12 21:09] LABS: GLUCOSE 428 mg/dL (75-110)
[2019-06-12] MEDS ORDERED: INSULIN REG, HUMAN 100 UNIT/ML 3 ML VIAL (PYX) IV ONE (21:59)
[2019-06-12] MEDS ORDERED: CLONIDINE HCL 0.1 MG TABLET PO ONE (23:39)
[2019-06-13] MEDS ORDERED: LABETALOL HCL INJ 20 MG/4 ML DISP.SYRIN IV ONE (01:02)
[2019-06-13] MEDS ORDERED: HALOPERIDOL LACTATE INJ 5 MG/1 ML VIAL IV ONE (01:15)
[2019-06-13 02:29] VITALS: BP 162/91
== END 2019-06-13 02:38 | disposition home or self-care (01) ==
LOC: ER 18:50
DX: K85.90 Acute pancreatitis without necrosis or infection, unspecified (principal); R10.13 Epigastric pain; K86.1 Other chronic pancreatitis; R11.0 Nausea; R53.1 Weakness; I10 Essential (primary) hypertension; E78.00 Pure hypercholesterolemia, unspecified; J44.9 Chronic obstructive pulmonary disease, unspecified; E11.9 Type 2 diabetes mellitus without complications; Z88.6 Allergy status to analgesic agent; Z88.0 Allergy status to penicillin; Z90.710 Acquired absence of both cervix and uterus; Z79.4 Long term (current) use of insulin
CPT/HCPCS: 96376; 99285; 96374; 96375; 36415; 82962; 83690; 85025; 80053; 81001; J3490; J1630; J1170; J1815; J2550; J7030; 96361

== ENCOUNTER 2019-06-16 12:15 | Emergency (ER) | payer MEDICAID ==
[2019-06-16 13:29] LABS: ABSOLUTE BASOPHILS # (AUTO) 0.1 10^3/uL (0.0-0.2); ABSOLUTE EOSINOPHILS # (AUTO) 0.1 10^3/uL (0.0-0.6); ABSOLUTE LYMPHOCYTES (AUTO) 2.1 10^3/uL (0.5-4.7); ABSOLUTE MONOCYTES (AUTO) 0.5 10^3/uL (0.1-1.4); ABSOLUTE NEUT (AUTO) 6.6 10^3/uL (1.7-8.2); BASOPHILS % (AUTO) 1.1 % (0-2); HEMATOCRIT 33.3 % (36.0-47.0); HEMOGLOBIN 11.6 g/dL (12.0-15.5); LYMPHOCYTES % (AUTO) 22.7 % (13-45); MEAN CORPUSCULAR HEMOGLOBIN 29.4 pg (27.0-33.4); MEAN CORPUSCULAR HGB CONC 34.7 g/dL (32.0-36.0); MEAN CORPUSCULAR VOLUME 85 fl (80-97); MONOCYTES % (AUTO) 4.9 % (3-13); PLATELET COUNT 401 10^3/uL (150-450); RED BLOOD COUNT 3.94 10^6/uL (3.72-5.28); RED CELL DISTRIBUTION WIDTH 15.3 % (11.5-14.0); SEGMENTED NEUTROPHILS % (AUTO) 70.3 % (42-78); TOTAL CELLS COUNTED % (AUTO) 100 %; WHITE BLOOD COUNT 9.3 10^3/uL (4.0-10.5)
[2019-06-16 13:47] LABS: ALBUMIN 4.3 g/dL (3.5-5.0); ALKALINE PHOSPHATASE 144 U/L (38-126); ANION GAP 8 (5-19); ASPARTATE AMINO TRANSFERASE 30 U/L (14-36); BILIRUBIN,TOTAL 0.4 mg/dL (0.2-1.3); BLOOD UREA NITROGEN 25 mg/dL (7-20); CALCIUM 9.8 mg/dL (8.4-10.2); CARBON DIOXIDE 26 mmol/L (22-30); CHLORIDE 100 mmol/L (98-107); GLUCOSE 250 mg/dL (75-110); POTASSIUM 4.4 mmol/L (3.6-5.0); TOTAL PROTEIN 7.8 g/dL (6.3-8.2)
[2019-06-16 14:13] LABS: APPEARANCE,URINE SLIGHTLY-CLOUDY; BILIRUBIN,URINE NEGATIVE (NEGATIVE); COLOR,URINE YELLOW; GLUCOSE, URINE >=500 mg/dL (NEGATIVE); KETONES,URINE NEGATIVE (NEGATIVE); LEUKOCYTE ESTERASE,URINE NEGATIVE (NEGATIVE); NITRITE,URINE NEGATIVE (NEGATIVE); PROTEIN,URINE 100 mg/dL (NEGATIVE); URINE SPECIFIC GRAVITY 1.012; UROBILINOGEN,URINE NEGATIVE mg/dL (<2.0)
--- NOTE | 2019-06-16 14:20 | ER Document Report ---
ED GI/ - General Chief Complaint: Abdominal Pain Stated Complaint: ABDOMINAL PAIN Time Seen by Provider: 06/16/19 14:07 Primary Care Provider: RONALD BARKER FNP-C [Primary Care Provider] - Follow up in 3-5 days Notes: She is a 38-year-old female presents emergency department with a chief complaint of abdominal pain. States her pain started at 5:00 this morning. States it feels like her pancreatitis that she has had before. States it is in her mid upper abdomen. Patient does admit to smoking marijuana. TRAVEL OUTSIDE OF THE [place] IN LAST 30 DAYS: No - Related Data Allergies/Adverse Reactions: hydrocodone [From [place]] Allergy (Verified 03/18/19 12:42) morphine Allergy (Verified 03/18/19 12:42) Penicillins Allergy (Verified 03/18/19 12:42) prednisone Allergy (Verified 03/18/19 12:42) Edema Past Medical History - Social History Smoking Status: Never Smoker Chew tobacco use (# tins/day): No Frequency of alcohol use: None Drug Abuse: None Family History: Reviewed & Not Pertinent, DM, Hypertension Patient has homicidal ideation: No - Past Medical History Cardiac Medical History: Reports: Hx Hypercholesterolemia, Hx Hypertension Pulmonary Medical History: Reports: Hx COPD Neurological Medical History: Reports: Hx Seizures Endocrine Medical History: Reports: Hx Diabetes Mellitus Type 2 Renal/ Medical History: Reports: Hx Renal Insufficiency GI Medical History: Reports: Hx Gastroesophageal Reflux Disease, Hx Pancreatitis Musculoskeletal Medical History: Reports Hx Musculoskeletal Trauma Skin Medical History: Psychiatric Medical History: Reports: Hx Anxiety, Hx Depression Past Surgical History: Reports: Hx Section - x3, Hx Hysterectomy - Immunizations Immunizations up to date: Yes Hx Diphtheria, Pertussis, Tetanus Vaccination: No Review of Systems - Review of Systems Notes: REVIEW OF SYSTEMS: CONSTITUTIONAL : Denies recent illness. Denies recent unintentional weight loss. Denies fever, chills, or sweats. EENT: Denies eye, ear, throat, or mouth pain, discharge, or symptoms. Denies nasal or sinus congestion. CARDIOVASCULAR: Denies chest pain. RESPIRATORY: Denies shortness of breath, cough, congestion, difficulty breathing, or wheezing. GASTROINTESTINAL: See HPI. GENITOURINARY: Denies difficulty urinating, burning, blood in urine, urgency or frequency. MUSCULOSKELETAL: Denies neck and back pain. Denies joint pain or swelling. SKIN: Denies rash, itchiness, or lesions HEMATOLOGIC : Denies easy bruising or bleeding. LYMPHATIC: Denies swollen, painful, enlarged glands. NEUROLOGICAL: Denies no numbness or tingling denies weakness. Denies headache. Denies altered mental status. Denies alteration in speech. PSYCHIATRIC: Denies stress, anxiety, alteration in sleep patterns, or depression. All other systems reviewed and negative. Physical Exam - Vital signs Vitals: BP 221/140 H 06/16/19 12:29 - Notes Notes: PHYSICAL EXAMINATION: GENERAL: Appears well, healthy, well-nourished, no acute distress. HEAD: Normocephalic, atraumatic. EYES: PERRL, conjunctiva normal, all extraocular movements intact, sclera nonicteric ENT: Moist mucous membranes. NECK: Supple, no noticeable swelling, redness, rash. Normal range of motion. LUNGS: Equal breath sounds bilaterally and clear to auscultation. No wheezes rales or rhonchi. CARDIOVASCULAR: S1-S2, regular rate, regular rhythm. Radial pulses 2+, normal. ABDOMEN: Normoactive bowel sounds. Soft, tender mid upper abdomen, no gua rding, no rebound tenderness, and no masses palpated. EXTREMITIES: Normal strength and range of motion, no pitting or edema. No cyanosis. NEUROLOGICAL: Moves all extremities upon command. Strength 5/5 in all extremities. PSYCH: Normal mood, normal affect. SKIN: Warm, dry. No rash, lesions, ulcerations noted. Normal skin turgor. Course - Re-evaluation Re-evalutation: 06/16/19 16:48 Hematology is unremarkable. Chemistries are actually improved from when she was here 4 days ago. Lipase has improved also. 06/16/19 17:22 Patient is remarkably better after receiving Haldol, Dilaudid, and clonidine. At this time, patient's blood pressure has remarkably improved to 178/112. Patient will follow-up with her primary care provider in regards to this visit. I spoke to the patient about held off working for her, and I suspect that maybe she has a mental health component of her symptoms. I asked I spoke to her in regards to marijuana use and it affecting her gastrointestinal system. She states that she will stop using marijuana. Follow-up precautions were given. Verbal discharge instructions were given to the patient. They verbalized understanding. They are stable for discharge. - Vital Signs Vital signs: Temp Pulse Resp BP Pulse Ox 98.4 F 20 251/150 H 100 06/16/19 13:42 06/16/19 15:01 06/16/19 16:02 06/16/19 16:02 - Laboratory Result Diagrams: 06/16/19 13:16 06/16/19 13:16 Laboratory results interpreted by me: 06/16/19 06/16/19 06/16/19 13:16 13:16 13:52 Hgb 11.6 L Hct 33.3 L RDW 15.3 H Sodium 134.0 L BUN 25 H Creatinine 1.52 H Est GFR ( Amer) 46 L Est GFR (MDRD) Non-Af 38 L Glucose 250 H Alkaline Phosphatase 144 H Lipase 427.3 H Urine Protein 100 H Urine Glucose (UA) >=500 H Urine Blood SMALL H - EKG Interpretation by Me Additional EKG results interpreted by me: 06/16/19 12:27 Sinus tachycardia. Rate 114. NJ 136; QRS 72; QT 352; QTc 45. No ST elevations or depressions noted. Significant artifact, due to the patient moving around and crying in bed. Discharge - Discharge Clinical Impression: Abdominal pain Qualifiers: Abdominal location: epigastric Qualified Code(s): R10.13 - Epigastric pain Condition: Stable Disposition: HOME, SELF-CARE Additional Instructions: You were seen today in the emergency department for abdominal pain. Your ultrasound is normal and your labs are actually improved from 4 days ago. Please continue to take your blood pressure medication. Please follow-up with your primary care provider. Please stop smoking marijuana. See if you are able to get a referral to mental health to help manage your symptoms. Referrals: RONALD BARKER, DONALDC [Primary Care Provider] - Follow up in 3-5 days
[2019-06-16] MEDS ORDERED: METOPROLOL TARTRATE PF/INJ 5 MG/5 ML SDV IV ONE ×2 (14:24→14:27)
[2019-06-16] MEDS ORDERED: NORMAL SALINE 1000 ML 1,000 ML IV ONE (14:24)
[2019-06-16] MEDS ORDERED: ONDANSETRON HCL INJ/PF 4 MG/2 ML SDV IV ONE (14:25)
[2019-06-16] MEDS ORDERED: KETOROLAC TROMETHAMINE INJ/PF 30 MG/1 ML SDV IV ONE (14:26)
[2019-06-16 15:06] LABS: URINE AMPHETAMINES SCREEN NEGATIVE; URINE BENZODIAZEPINES SCREEN NEGATIVE; URINE COCAINE SCREEN NEGATIVE; URINE METHADONE SCREEN NEGATIVE; URINE PHENCYCLIDINE SCREEN NEGATIVE
[2019-06-16 15:10] LABS: URINE BARBITURATES SCREEN UNCONFIRMED POSITIVE; URINE MARIJUANA (THC) SCREEN UNCONFIRMED POSITIVE
[2019-06-16] MEDS ORDERED: CLONIDINE HCL 0.1 MG TABLET PO ONE (16:09)
[2019-06-16] MEDS ORDERED: HALOPERIDOL LACTATE INJ 5 MG/1 ML VIAL IV ONE (16:09)
[2019-06-16] MEDS ORDERED: HYDROMORPHONE HCL INJ/PF 2 MG/ML AMPULE IV ONE (16:09)
--- NOTE | 2019-06-16 17:15 | RADIOLOGY REPORT (SQ) ---
EXAM DESCRIPTION: U/S ABDOMEN LIMITED W/O DOP IMAGES COMPLETED DATE/TIME: 06/16/2019 5:01 pm REASON FOR STUDY: upper abdominal pain COMPARISON: None. TECHNIQUE: Dynamic and static grayscale images acquired of the abdomen and recorded on PACS. Additio nal selected color Doppler and spectral images recorded. LIMITATIONS: None. FINDINGS: PANCREAS: No masses. Visualized pancreatic duct normal caliber. LIVER: No masses. Echotexture normal. LIVER VASCULATURE: Normal directional flow of the main portal vein and hepatic veins. GALLBLADDER: No stones. Normal wall thickness. No pericholecystic fluid. ULTRASOUND-DETECTED VARGAS'S SIGN: Negative. INTRAHEPATIC DUCTS AND COMMON DUCT: CBD and intrahepatic ducts normal caliber. No filling defects. INFERIOR VENA CAVA: Normal flow. AORTA: No aneurysm. RIGHT KIDNEY: Normal size. Normal echogenicity. No solid or suspicious masses. No hydronephrosis. No calcifications. PERITONEAL AND RIGHT PLEURAL SPACE: No ascites or effusions. OTHER: No other significant findings. IMPRESSION: NORMAL RIGHT UPPER QUADRANT ULTRASOUND. TECHNICAL DOCUMENTATION: JOB ID: [id number] [employer]- All Rights Reserved Reading location - IP/workstation name: [email or web address]
[2019-06-16 17:40] VITALS: BP 178/112
== END 2019-06-16 17:48 | disposition home or self-care (01) ==
LOC: ER 12:15
DX: R10.13 Epigastric pain (principal); R10.816 Epigastric abdominal tenderness; R00.0 Tachycardia, unspecified; I10 Essential (primary) hypertension; J44.9 Chronic obstructive pulmonary disease, unspecified; E11.9 Type 2 diabetes mellitus without complications; Z87.19 Personal history of other diseases of the digestive system; Z88.6 Allergy status to analgesic agent; Z88.5 Allergy status to narcotic agent; Z88.0 Allergy status to penicillin; Z88.8 Allergy status to other drugs, medicaments and biological substances
CPT/HCPCS: 99284; 96361; 96374; 96375; 36415; 82962; 83690; 85025; 80053; 81001; 80307; 76705; J3490 ×2; J1630; J1885; J1170; J2405; J7030

== ENCOUNTER 2019-06-21 08:36 | Emergency (ER) | payer MEDICAID ==
--- NOTE | 2019-06-21 09:16 | ER Document Report ---
ED General - General Chief Complaint: Abdominal Pain Stated Complaint: ABDOMINAL PAIN Time Seen by Provider: 06/21/19 08:57 Primary Care Provider: RONALD BARKER FNP-C [Primary Care Provider] - Follow up as needed Mode of Arrival: Medic Information source: Patient TRAVEL OUTSIDE OF THE [place] IN LAST 30 DAYS: No - HPI Notes: 38-year-old female with a history of chronic pancreatitis, hypertension, COPD, history, type 2 diabetes, RONIT, GERD presents emergency room via EMS with abdominal pain. Patient states that she woke up with abdominal pain. Patient states her symptoms became early this morning. Patient has been seen multiple times in this emergency room for abdominal pain related to her chronic pancreatitis. Denies any vomiting but does state that she has intermittent nausea and. Patient states she has not had any alcohol in the last 10 years. She states that she was seen by her yarn conditioner a few weeks ago but when she got to the office her blood sugar was so low they sent her to the emergency room. Patient reports this morning she did take her lisinopril, amlodipine and metoprolol, however her blood pressure is elevated 200s/110s. It appears that her blood pressure medication has not been filled since March. she states she has not had a chance to follow-up with them since that time. Denies fevers, chills, chest pain,palpitations, shortness of breath, dyspnea, vomiting, diarrhea, hematuria,blurred vision, double vision, loss of vision, speech changes, LH, dizziness, syncope, headaches, wheezing, neck pain, weakness, bowel or bladder dysfunction, saddle anesthesia, numbness or tingling in bilateral upper or lower extremities equally, muscle paralysis, weakness in bilateral upper or lower extremities equally or rash. - Related Data Allergies/Adverse Reactions: hydrocodone [From [place]] Allergy (Verified 06/21/19 09:10) morphine Allergy (Verified 06/21/19 09:10) Penicillins Allergy (Verified 06/21/19 09:10) prednisone Allergy (Verified 06/21/19 09:10) Edema Past Medical History - General Information source: Patient - Social History Smoking Status: Unknown if Ever Smoked Family History: Reviewed & Not Pertinent, DM, Hypertension - Past Medical History Cardiac Medical History: Reports: Hx Hypercholesterolemia, Hx Hypertension Pulmonary Medical History: Reports: Hx COPD Neurological Medical History: Reports: Hx Seizures Endocrine Medical History: Reports: Hx Diabetes Mellitus Type 2 Renal/ Medical History: Reports: Hx Renal Insufficiency GI Medical History: Reports: Hx Gastroesophageal Reflux Disease, Hx Pancreatitis Musculoskeletal Medical History: Reports Hx Musculoskeletal Trauma Skin Medical History: Psychiatric Medical History: Reports: Hx Anxiety, Hx Depression Past Surgical History: Reports: Hx Section - x3, Hx Hysterectomy - Immunizations Immunizations up to date: Yes Hx Diphtheria, Pertussis, Tetanus Vaccination: No Review of Systems - Review of Systems Constitutional: No symptoms reported EENT: No symptoms reported Cardiovascular: No symptoms reported Respiratory: No symptoms reported Gastrointestinal: See HPI Genitourinary: No symptoms reported Female Genitourinary: No symptoms reported Musculoskeletal: No symptoms reported Skin: No symptoms reported Hematologic/Lymphatic: No symptoms reported Neurological/Psychological: No symptoms reported Physical Exam - Vital signs Vitals: Temp Pulse Resp BP Pulse Ox 98.8 F 99 20 184/118 H 99 06/21/19 09:11 06/21/19 09:11 06/21/19 09:11 06/21/19 09:11 06/21/19 09:11 - Notes Notes: PHYSICAL EXAMINATION: reviewed vital signs by RN GENERAL: Chronically ill, malnourished and in mild distress. HEAD: Atraumatic, normocephalic. EYES: Pupils equal round and reactive to light, extraocular movements intact, conjunctiva are normal. ENT: Nares patent, oropharynx clear without exudates. Moist mucous membranes. NECK: Normal range of motion, supple without lymphadenopathy LUNGS: Breath sounds clear to auscultation bilaterally and equal. No wheezes rales or rhonchi. HEART: Regular rate and rhythm without murmurs ABDOMEN: Hyperactive bowel sounds, generalized tenderness in all quadrants soft, nondistended abdomen. No guarding, no rebound. No masses appreciated. No CVA tenderness appreciated bilaterally Female : deferred Musculoskeletal: Normal range of motion, no pitting or edema. No cyanosis. NEUROLOGICAL: Cranial nerves grossly intact. Normal speech, normal gait. Normal sensory, motor exams PSYCH: Normal mood, normal affect. SKIN: Warm, Dry, normal turgor, no rashes or lesions noted. Course - Re-evaluation Re-evalutation: 06/21/19 11:26 Afebrile hypertensive with a blood pressure of 210/110 systolically, pulse ox at 100% with a heart rate of 103. Respiratory rate 13. Patient is unable to obtain IV access after multiple attempts. Lab called to get a straight stick for basic labs. CBC with leukocytosis of 12.4 without a shift. CMP negative for hepatic dysfunction, creatinine is 1.49, she is down from 1.52 from a few days prior. Urinalysis does show glucose greater than 500 however patient's serum glucose is 249. At least 6 attempts to IV access all failed. Dr. Chance, surgeon television technician, at bedside to place EJ acess, constant was obtained. After EJ was shown to be in place after checks x-ray,1130- patient given 50mcg of fentanyl given IVP, 10 mg hydralazine IVP given to bring blood pressure down which was 225/120, patient writhing in pain. 1330Able to obtain CT abdomen pelvis with IV contrast. Results show chronic pancreatitis. EKG negative for ST segment elevation, no STEMI. Patient still writhing in pain, hydromorphone 1 mg given IVP due to patient writhing in pain. 1533-Blood pressure still slightly elevated, 10mg of hydralazine given IVP. when reviewing labs, 2 troponins negative. Patient's blood pressure did reduce down to 175/89. Patient states her pain is somewhat better. Discussed with patient that she does need to follow-up with gastroenterology as well as her primary care provider due to uncontrolled hypertension as well as her chronic pancreatitis and abdominal pain. Patient needs to make an appointment and show up for the appointment in order to have appropriate follow-up for her chronic pancreatitis. Patient is tearful. 1620-dicussed pertinent clinical, laboratory and diagnostic findings with Dr. Ken Quesada, ER supervising physician due to patient's elevated blood pressure, abdominal pain, chronic pancreatitis. He advised that patient having chronically elevated blood pressure and tachycardia as well as chronic pancreatitis is unlikely that this will be completely resolved as she is trended throughout several stays throughout several months with same elevated blood pressure, abdominal pain, laboratory findings. Discussed with patient at length the importance of following up outpatient with yarn conditioner and primary care provider, taking her medications as prescribed, avoiding any illicit drugs or alcohol as this is causing her to be in such pain. Patient did verbalize an understanding of this plan of care. After performing a Medical Screening Examination, I estimate there is LOW risk for ACUTE APPENDICITIS, BOWEL OBSTRUCTION, ACUTE CHOLECYSTITIS, PERFORATED DIVERTICULITIS, INCARCERATED HERNIA, PANCREATITIS, PELVIC INFLAMMATORY DISEASE, PERFORATED ULCER, ECTOPIC RI EGNANCY, or TUBO-OVARIAN ABSCESS, thus I consider the discharge disposition reasonable. Also, there is no evidence or peritonitis, sepsis, or toxicity. I have reevaluated this patient multiple times and no significant life threatening changes are noted. The patient and I have discussed the diagnosis and risks, and we agree with discharging home with close follow-up with the understanding that symptoms and presentations can change. We also discussed returning to the Emergency Department immediately if new or worsening symptoms occur. We have discussed the symptoms which are most concerning (e.g., bloody stool, fever, changing or worsening pain, vomiting) that necessitate immediate return. - Vital Signs Vital signs: Temp Pulse Resp BP Pulse Ox 98.8 F 99 27 H 193/114 H 100 06/21/19 09:11 06/21/19 09:11 06/21/19 15:01 06/21/19 15:01 06/21/19 14:01 - Laboratory Result Diagrams: 06/21/19 09:56 06/21/19 09:56 Laboratory results interpreted by me: 06/21/19 06/21/19 06/21/19 09:56 09:56 11:15 WBC 12.4 H Hgb 11.8 L Hct 34.7 L RDW 16.1 H Absolute Neuts (auto) 9.2 H BUN 22 H Creatinine 1.49 H Est GFR ( Amer) 47 L Est GFR (MDRD) Non-Af 39 L Glucose 241 H AST 43 H Alkaline Phosphatase 141 H Lipase 559.1 H Urine Protein 100 H Urine Glucose (UA) >=500 H Urine Blood SMALL H Discharge - Discharge Clinical Impression: Hypertension, RONIT (acute kidney injury), Chronic pancreatitis, History of alc oholism, CKD (chronic kidney disease), Type 2 diabetes mellitus Condition: Stable Disposition: HOME, SELF-CARE Instructions: Abdominal Pain ([facility]), Nausea or Vomiting, Nonspecific ([facility]), High Blood Pressure ([facility]), Hyperglycemia ([facility]) Additional Instructions: Your labs today show that you chronic pancreatitis. Your CT of your abdomen did show chronic pancreatitis however otherwise was normal. Your CBC was essentially normal as well as your CMP. Your blood pressure today was very high, you did receive IV antihypertensive medications which brought her blood pressure down. Please continue to take your oral blood pressure medications at home, check your blood pressures at home. Please follow-up with yarn conditioner as well as your primary care provider within the next 24 to 48 hours. Please avoid any fatty foods. Pancreatitis Pancreatitis is an inflammation of the pancreas, an organ at the back of your abdomen. The pancreas produces insulin and enzymes that digest your food. Pancreatitis can be caused by gallstones in the bile duct, by alcohol or viruses, or by excess fat or calcium in the blood stream. Occasionally, pancreatitis occurs when a stomach ulcer augustine through into the pancreas. We try to find the cause of pancreatitis, but some tests can't be done until the pancreas heals. The usual symptoms of pancreatitis are pain in the pit of the stomach that goes straight through to the back, vomiting, and low-grade fever. Severe cases require hospital admission, but many patients with mild pancreatitis do well at home. You will probably need medicine for pain and for vomiting. Sometimes we prescribe medicine to decrease stomach acid secretion and to decrease flow of pancreatic juices. Start with a diet of clear liquids (soda pop, juices). When the pain is decreasing, you can add some simple starches (potato, toast, applesauce). Avoid proteins and fats until you are completely painfree. When you're better, your doctor may suggest treatment to prevent future pancreatitis (such as gallbladder removal). Avoid alcohol forever. Get immediate treatment for any future episodes. Contact your doctor at once or return here if you have increasing pain, shortness of breath, general swelling, increasing size of the abdomen, continued vomiting, muscle spasms, or other new symptoms. Referrals: RONALD BARKER, ROSIO-C [Primary Care Provider] - Follow up tomorrow AJIT PALOMINO MD [ACTIVE STAFF] - Follow up in 3-5 days TRI LANDIS MD [ACTIVE PROVISIONAL STAFF] - Follow up as needed
--- NOTE | 2019-06-21 09:48 | RADIOLOGY REPORT (SQ) ---
EXAM DESCRIPTION: CHEST SINGLE VIEW IMAGES COMPLETED DATE/TIME: 06/21/2019 9:33 am REASON FOR STUDY: epigastric pain COMPARISON: None. NUMBER OF VIEWS: One view. TECHNIQUE: Single frontal radiographic view of the chest acquired. LIMITATIONS: None. FINDINGS: LUNGS AND PLEURA: No opacities, masses or pneumothorax. No pleural effusion. MEDIASTINUM AND HILAR STRUCTURES: No masses. Contour normal. HEART AND VASCULAR STRUCTURES: Heart normal in size. Normal vasculature. BONES: No acute findings. HARDWARE: None in the chest. OTHER: No other significant finding. IMPRESSION: NO SIGNIFICANT RADIOGRAPHIC FINDING IN THE CHEST. TECHNICAL DOCUMENTATION: JOB ID: [id number] 2010 [employer]- All Rights Reserved Reading location - IP/workstation name: [email or web address]
[2019-06-21 10:13] LABS: ABSOLUTE BASOPHILS # (AUTO) 0.1 10^3/uL (0.0-0.2); ABSOLUTE EOSINOPHILS # (AUTO) 0.2 10^3/uL (0.0-0.6); ABSOLUTE LYMPHOCYTES (AUTO) 2.4 10^3/uL (0.5-4.7); ABSOLUTE MONOCYTES (AUTO) 0.5 10^3/uL (0.1-1.4); ABSOLUTE NEUT (AUTO) 9.2 10^3/uL (1.7-8.2); BASOPHILS % (AUTO) 0.7 % (0-2); EOSINOPHILS % (AUTO) 1.6 % (0-6); HEMATOCRIT 34.7 % (36.0-47.0); HEMOGLOBIN 11.8 g/dL (12.0-15.5); LYMPHOCYTES % (AUTO) 19.6 % (13-45); MEAN CORPUSCULAR HEMOGLOBIN 29.3 pg (27.0-33.4); MEAN CORPUSCULAR HGB CONC 34.1 g/dL (32.0-36.0); MEAN CORPUSCULAR VOLUME 86 fl (80-97); MONOCYTES % (AUTO) 3.9 % (3-13); RED BLOOD COUNT 4.03 10^6/uL (3.72-5.28); RED CELL DISTRIBUTION WIDTH 16.1 % (11.5-14.0); SEGMENTED NEUTROPHILS % (AUTO) 74.2 % (42-78); TOTAL CELLS COUNTED % (AUTO) 100 %; WHITE BLOOD COUNT 12.4 10^3/uL (4.0-10.5)
[2019-06-21 10:31] LABS: ALBUMIN 4.2 g/dL (3.5-5.0); ALKALINE PHOSPHATASE 141 U/L (38-126); ANION GAP 7 (5-19); ASPARTATE AMINO TRANSFERASE 43 U/L (14-36); BILIRUBIN,DIRECT 0.1 mg/dL (0.0-0.4); BILIRUBIN,TOTAL 0.5 mg/dL (0.2-1.3); BLOOD UREA NITROGEN 22 mg/dL (7-20); CALCIUM 9.4 mg/dL (8.4-10.2); CARBON DIOXIDE 25 mmol/L (22-30); CHLORIDE 105 mmol/L (98-107); GLUCOSE 241 mg/dL (75-110); POTASSIUM 4.7 mmol/L (3.6-5.0); TOTAL PROTEIN 7.7 g/dL (6.3-8.2)
[2019-06-21 10:39] LABS: PLATELET COUNT 190 10^3/uL (150-450)
[2019-06-21] MEDS ORDERED: CLONIDINE HCL 0.1 MG TABLET PO ONE (11:09)
[2019-06-21] MEDS ORDERED: HYDRALAZINE HCL INJ/PF 20 MG/1 ML SDV IV ONE ×2 (11:23→15:33)
[2019-06-21] MEDS ORDERED: FENTANYL CITRATE INJ/PF 100 MCG/2 ML AMPUL IV ONE (11:25)
[2019-06-21 11:52] LABS: INTERNATIONAL RATION (INR) 1.01; PARTIAL THROMBOPLASTIN TIME 24.4 SEC (23.5-35.8); PROTHROMBIN TIME 13.3 SEC (11.4-15.4)
[2019-06-21 12:08] LABS: APPEARANCE,URINE SLIGHTLY-CLOUDY; BILIRUBIN,URINE NEGATIVE (NEGATIVE); COLOR,URINE YELLOW; GLUCOSE, URINE >=500 mg/dL (NEGATIVE); KETONES,URINE NEGATIVE (NEGATIVE); LEUKOCYTE ESTERASE,URINE NEGATIVE (NEGATIVE); NITRITE,URINE NEGATIVE (NEGATIVE); PROTEIN,URINE 100 mg/dL (NEGATIVE); URINE SPECIFIC GRAVITY 1.007; UROBILINOGEN,URINE NEGATIVE mg/dL (<2.0)
--- NOTE | 2019-06-21 12:11 | Operative Report ---
Nonrecallable Operative Report DATE OF SURGERY: 06/21/19 PREOPERATIVE DIAGNOSIS: Acute pancreatitis POSTOPERATIVE DIAGNOSIS: Acute pancreatitis OPERATION: Central line placement right external jugular SURGEON: ROB FOWLER ANESTHESIA: Local TISSUE REMOVED OR ALTERED: None COMPLICATIONS: None ESTIMATED BLOOD LOSS: 10 cc INTRAOPERATIVE FINDINGS: See note PROCEDURE: Appropriate timeout site verification was done. The patient was placed in a Trendelenburg position the right neck was prepped and draped in usual sterile fashion. Using a 16-gauge needle catheter we placed it into the external jugular vein after anesthetizing the skin with 1% lidocaine plain. The needle was removed and through the catheter a J-wire was placed it was manipulated to the superior vena cava. The catheter was then removed the skin incision enlarged with qa 11 blade the dilator was used then the triple lumen catheter was advanced over the guide wire good flow resulted from all three lulmens pt javi well cxr panding.
[2019-06-21 12:18] LABS: URINE AMPHETAMINES SCREEN NEGATIVE; URINE BENZODIAZEPINES SCREEN NEGATIVE; URINE COCAINE SCREEN NEGATIVE; URINE METHADONE SCREEN NEGATIVE; URINE PHENCYCLIDINE SCREEN NEGATIVE
[2019-06-21 12:21] LABS: URINE BARBITURATES SCREEN UNCONFIRMED POSITIVE; URINE MARIJUANA (THC) SCREEN UNCONFIRMED POSITIVE
--- NOTE | 2019-06-21 12:29 | RADIOLOGY REPORT (SQ) ---
EXAM DESCRIPTION: CHEST SINGLE VIEW IMAGES COMPLETED DATE/TIME: 06/21/2019 11:58 am REASON FOR STUDY: central line placement COMPARISON: None. EXAM PARAMETERS: NUMBER OF VIEWS: One view. TECHNIQUE: Single frontal radiographic view of the chest acquired. RADIATION DOSE: NA LIMITATIONS: None. FINDINGS: LUNGS AND PLEURA: No opacities, masses or pneumothorax. No pleural effusion. MEDIASTINUM AND HILAR STRUCTURES: No masses. Contour normal. HEART AND VASCULAR STRUCTURES: Heart normal in size. Normal vasculature. BONES: No acute findings. HARDWARE: None in the chest. OTHER: Right central line tip overlying SVC. IMPRESSION: Satisfactory position of central line. No pneumothorax. TECHNICAL DOCUMENTATION: JOB ID: [id number] 2010 [employer]- All Rights Reserved Reading location - IP/workstation name: [email or web address]
[2019-06-21] MEDS ORDERED: HYDROMORPHONE HCL INJ/PF 2 MG/ML AMPULE IV ONE (13:43)
--- NOTE | 2019-06-21 13:55 | RADIOLOGY REPORT (SQ) ---
EXAM DESCRIPTION: CT ABD/PELVIS WITH IV ONLY IMAGES COMPLETED DATE/TIME: 06/21/2019 1:35 pm REASON FOR STUDY: abd pain, hx of pancreatitis COMPARISON: 03/08/2019 TECHNIQUE: CT scan of the abdomen and pelvis performed using helical scanning technique with dynamic intravenous contrast injection. No oral contrast. Images reviewed with lung, soft tissue, and bone windows. Reconstructed coronal and sagittal MPR images reviewed. Delayed images for evaluation of the urinary system also acquired. All images stored on PACS. All CT scanners at this facility use dose modulation, iterative reconstruction, and/or weight based d osing when appropriate to reduce radiation dose to as low as reasonably achievable (ALARA). [facility]: Dose Right [facility]: CareDose [facility]: Dose Right [facility]: Teradose 4D [facility]: Zula CONTRAST TYPE AND DOSE: contrast/concentration: Isovue 350.00 mg/ml; Total Contrast Delivered: 65.0 ml; Total Saline Delivered: 65.0 ml RENAL FUNCTION: GFR > 60. RADIATION DOSE: CT Rad equipment meets quality standard of care and radiation dose reduction techniq ues were employed. CTDIvol: 4.8 - 5.3 mGy. DLP: 513 mGy-cm.. LIMITATIONS: None. FINDINGS: LOWER CHEST: No significant findings. No nodules or infiltrates. LIVER: Normal size. No masses. No dilated ducts. SPLEEN: Normal size. No focal lesions. PANCREAS: Calcifications consistent with chronic pancreatitis. Chronic dilatation of the pancreatic duct. No acute inflammatory change. GALLBLADDER: No identified stones by CT criteria. No inflammatory changes to suggest cholecystitis. ADRENAL GLANDS: No significant masses or asymmetry. RIGHT KIDNEY AND URETER: No solid masses. No significant calcifications. No hydronephrosis or hyd roureter. LEFT KIDNEY AND URETER: No solid masses. No significant calcifications. No hydronephrosis or hydr oureter. AORTA AND VESSELS: No aneurysm. No dissection. Renal arteries, SMA, celiac without stenosis. RETROPERITONEUM: No retroperitoneal adenopathy, hemorrhage or masses. BOWEL AND PERITONEAL CAVITY: No masses or inflammatory changes. No free fluid or peritoneal masses. APPENDIX: Not visualized. PELVIS: No mass. No free fluid. Normal bladder. ABDOMINAL WALL: No masses. No hernias. BONES: No significant or acute findings. OTHER: No other significant finding. IMPRESSION: Chronic changes in the pancreas. No acute findings. TECHNICAL DOCUMENTATION: JOB ID: [id number] Quality ID # [id number]: Final reports with documentation of one or more dose reduction techniques (e.g., Au tomated exposure control, adjustment of the mA and/or kV according to patient size, use of iterative reconstruction technique) 2010 [employer]- All Rights Reserved Reading location - IP/workstation name: [email or web address]-
[2019-06-21 14:27] LABS: VENOUS BLOOD HCO3 23.9 mmol/L (20-32); VENOUS BLOOD PCO2 45.5 mmHg (35-63); VENOUS BLOOD PH 7.34 (7.30-7.42)
[2019-06-21 17:17] VITALS: BP 161/103
--- NOTE | 2019-06-21 23:03 | EKG REPORT ---
SEVERITY:- ABNORMAL ECG - SINUS TACHYCARDIA ABBIE, CONSIDER BIATRIAL ABNORMALITIES PROBABLE LEFT VENTRICULAR HYPERTROPHY : Confirmed by: Valentina Fierro 21-Jun-2019 23:02:25
== END 2019-06-21 17:18 | disposition home or self-care (01) ==
LOC: ER 08:36
DX: K86.1 Other chronic pancreatitis (principal); I12.9 Hypertensive chronic kidney disease with stage 1 through stage 4 chronic kidney disease, or unspecified chronic kidney disease; E11.22 Type 2 diabetes mellitus with diabetic chronic kidney disease; N18.9 Chronic kidney disease, unspecified; N17.9 Acute kidney failure, unspecified; F10.21 Alcohol dependence, in remission; R11.0 Nausea; R10.817 Generalized abdominal tenderness; D72.829 Elevated white blood cell count, unspecified; J44.9 Chronic obstructive pulmonary disease, unspecified; Z88.6 Allergy status to analgesic agent; Z88.5 Allergy status to narcotic agent; Z88.8 Allergy status to other drugs, medicaments and biological substances; Z79.899 Other long term (current) drug therapy
CPT/HCPCS: 93005; 99285; 36415; 83690; 85025; 85610; 85730; 80053; 81001; 84484; 80307; 82803; 71045; 74177; 93010; 36556; J3010; J0360; J1170

== ENCOUNTER 2019-06-21 18:37 | Emergency (ER) | payer MEDICAID ==
[2019-06-21 18:50] VITALS: BP 169/93
== END 2019-06-21 19:56 | disposition left against medical advice (07) ==
LOC: ER 18:37
DX: Z53.21 Procedure and treatment not carried out due to patient leaving prior to being seen by health care provider (principal)

== ENCOUNTER 2019-06-22 03:18 | Emergency (ER) | payer MEDICAID ==
[2019-06-22 04:07] LABS: ABSOLUTE EOSINOPHILS # (AUTO) 0.1 10^3/uL (0.0-0.6); ABSOLUTE LYMPHOCYTES (AUTO) 1.3 10^3/uL (0.5-4.7); ABSOLUTE MONOCYTES (AUTO) 0.4 10^3/uL (0.1-1.4); ABSOLUTE NEUT (AUTO) 7.1 10^3/uL (1.7-8.2); BASOPHILS % (AUTO) 0.5 % (0-2); EOSINOPHILS % (AUTO) 0.7 % (0-6); HEMATOCRIT 30.8 % (36.0-47.0); HEMOGLOBIN 10.6 g/dL (12.0-15.5); MEAN CORPUSCULAR HEMOGLOBIN 29.2 pg (27.0-33.4); MEAN CORPUSCULAR HGB CONC 34.3 g/dL (32.0-36.0); MEAN CORPUSCULAR VOLUME 85 fl (80-97); MONOCYTES % (AUTO) 4.1 % (3-13); RED BLOOD COUNT 3.62 10^6/uL (3.72-5.28); RED CELL DISTRIBUTION WIDTH 15.9 % (11.5-14.0); SEGMENTED NEUTROPHILS % (AUTO) 79.7 % (42-78); TOTAL CELLS COUNTED % (AUTO) 100 %; WHITE BLOOD COUNT 8.9 10^3/uL (4.0-10.5)
[2019-06-22 04:13] LABS: PLATELET COUNT 405 10^3/uL (150-450)
[2019-06-22 04:16] LABS: ALBUMIN 3.9 g/dL (3.5-5.0); ALKALINE PHOSPHATASE 134 U/L (38-126); ANION GAP 7 (5-19); ASPARTATE AMINO TRANSFERASE 24 U/L (14-36); BILIRUBIN,DIRECT 0.1 mg/dL (0.0-0.4); BILIRUBIN,TOTAL 0.6 mg/dL (0.2-1.3); BLOOD UREA NITROGEN 22 mg/dL (7-20); CALCIUM 9.8 mg/dL (8.4-10.2); CARBON DIOXIDE 26 mmol/L (22-30); CHLORIDE 104 mmol/L (98-107); GLUCOSE 263 mg/dL (75-110); POTASSIUM 4.4 mmol/L (3.6-5.0); TOTAL PROTEIN 7.1 g/dL (6.3-8.2)
--- NOTE | 2019-06-22 04:38 | ER Document Report ---
ED GI/ - General Chief Complaint: Abdominal Pain Stated Complaint: ABDOMINAL PAIN Time Seen by Provider: 06/22/19 04:30 Primary Care Provider: RONALD BARKER FNP-C [Primary Care Provider] - Follow up as needed Notes: 38-year-old woman presents to the emergency department with a history of chronic pancreatitis. She has been seen in the emergency department on 3 separate occasions this month with abdominal pain. Lipases have ranged in the 200s [address] scan revealing chronic changes in the pancreas. The patient complains of pain in her pancreatic area as well as some nausea and vomiting she is requesting medications at this time. She says she has a allergy to hydrocodone and morphine. TRAVEL OUTSIDE OF THE [place] IN LAST 30 DAYS: No - Related Data Allergies/Adverse Reactions: hydrocodone [From [place]] Allergy (Verified 06/22/19 03:24) morphine Allergy (Verified 06/22/19 03:24) Penicillins Allergy (Verified 06/22/19 03:24) prednisone Allergy (Verified 06/22/19 03:24) Edema Past Medical History - Social History Smoking Status: Current Every Day Smoker Frequency of alcohol use: None Drug Abuse: Marijuana Family History: Reviewed & Not Pertinent, DM, Hypertension Patient has homicidal ideation: No - Past Medical History Cardiac Medical History: Reports: Hx Hypercholesterolemia, Hx Hypertension Pulmonary Medical History: Reports: Hx COPD Neurological Medical History: Reports: Hx Seizures Endocrine Medical History: Reports: Hx Diabetes Mellitus Type 2 Renal/ Medical History: Reports: Hx Renal Insufficiency GI Medical History: Reports: Hx Gastroesophageal Reflux Disease, Hx Pancreatitis Musculoskeletal Medical History: Reports Hx Musculoskeletal Trauma Skin Medical History: Psychiatric Medical History: Reports: Hx Anxiety, Hx Depression Past Surgical History: Reports: Hx Section - x3, Hx Hysterectomy - Immunizations Immunizations up to date: Yes Hx Diphtheria, Pertussis, Tetanus Vaccination: No Review of Systems - Review of Systems Notes: Constitutional: Negative for fever. HENT: Negative for sore throat. Eyes: Negative for visual changes. Cardiovascular: Negative for chest pain. Respiratory: Negative for shortness of breath. Gastrointestinal: + Abdominal pain, + nausea Musculoskeletal: Negative for back pain. Skin: Negative for rash. Neurological: Negative for headaches, weakness or numbness. 10 point ROS negative except as marked above and in HPI. Physical Exam - Vital signs Vitals: Temp Pulse Resp BP Pulse Ox 99.0 F 110 H 18 183/122 H 98 06/22/19 03:22 06/22/19 03:22 06/22/19 03:22 06/22/19 03:22 06/22/19 03:22 - Notes Notes: PHYSICAL EXAMINATION: Physical Exam: General: Well-nourished well-developed in no acute distress HEENT: NC/AT, pupils equal round and reactive to light, MM moist,nares clear, or opharynx clear, airway patent Neck: supple, no adenopathy, no masses. Good range of motion Lungs: clear, no wheezing, no rales no rhonchi CVS: Regular rate and rhythm no murmur gallop or rub Abdomen: Soft, active, tenderness across the epigastrium, no guarding, no rebound, good bowel sounds, no masses Ext: No edema, clubbing or cyanosis. Neuro: Alert and responsive, moving all 4 extremities on command, cranial nerves intact, no focal findings Skin: Intact no open lesions, no rash PSYCH: Normal mood, normal affect. Course - Re-evaluation Re-evalutation: 06/22/19 05:08 Patient with chronic pancreatitis, with treated with analgesic and medicines with nausea along with an acid rei. She has been sent home with Phenergan and omeprazole recommendation to follow-up with gastroenterology. Information regarding pancreatitis chronic status diet is given. 06/22/19 05:10 Imaging studies which were done on 06/21/2019 revealed positive calcification in the stephanie-increased which are pathognomonic for chronic pancreatitis along with a chronic dilatation of the pancreatic duct. - Vital Signs Vital signs: Temp Pulse Resp BP Pulse Ox 99.0 F 110 H 18 183/122 H 98 06/22/19 03:25 06/22/19 03:22 06/22/19 03:22 06/22/19 03:22 06/22/19 03:22 - Laboratory Result Diagrams: 06/22/19 03:50 06/22/19 03:50 Laboratory results interpreted by me: 06/22/19 06/22/19 03:50 03:50 RBC 3.62 L Hgb 10.6 L Hct 30.8 L RDW 15.9 H Seg Neutrophils % 79.7 H BUN 22 H Creatinine 1.53 H Est GFR ( Amer) 46 L Est GFR (MDRD) Non-Af 38 L Glucose 263 H Alkaline Phosphatase 134 H Discharge - Discharge Clinical Impression: Chronic pancreatitis Qualifiers: Pancreatitis type: other Qualified Code(s): K86.1 - Other chronic pancreatitis Condition: Good Disposition: HOME, SELF-CARE Instructions: Abdominal Pain ([facility]) Additional Instructions: You have chronic pancreatitis and triggers for it may include dietary items as well as cigarette smoking. You are encouraged to decrease your cigarette smoking, follow-up with a service representative and to take the medications as prescribed. You given a prescription today for Phenergan, omeprazole, Bentyl. Please drink plenty of fluids while using these medications and decrease your fried and greasy foods. HOME CARE INSTRUCTIONS & INFORMATION: Thank you for choosing us for your medical needs. We hope you're satisfied with the care you received. After you leave, you must properly care for your problem and, at the same time, observe its progress. Any condition can change. Some illnesses can change rapidly over hours or days. If your condition worsens, return to the Emergency Department or see your physician promptly. ABOUT YOUR X-RAYS AND EKG'S: If you had an EKG or X-rays taken, they have been read by the Emergency Physician. The X-rays and EKG's will also be read by a R adiologist or [facility] Manager within 24 hours. If discrepancies are noted, you will be notified by telephone. Please be certain the ED has a correct telephone number & address where you can be reached. Also, realize that some fractures or abnormalities do not show up on initial X-rays. If your symptoms continue, see your physician. ABOUT YOUR LABORATORY TEST: If you had laboratory tests, the results have been reviewed by the Emergency Physician. Some test results (for example cultures) may not be available for several days. You will be contacted if any test result shows you need additional treatment. Please be certain the ED has a correct telephone number and address where you can be reached. ABOUT YOUR MEDICATIONS: You will receive instructions on how to take your medicine on the prescription label you receive. Additional information may be provided by the Pharmacy. If you have questions afterwards, call the ED for clarification or further instructions. Some prescribed medications may cause drowsiness. Do not perform tasks such as driving a car or operating machinery without consulting your Pharmacist. If you feel you need a refill of pain medication, your condition will need re-evaluation. Please do not call for a refill of any medication. ABOUT YOUR SIGNATURE: Signature of this document acknowledges to followin. Understanding that you received emergency treatment and that you may be released before al medical problems are known or treated. Please be certain the ED has a correct phone number & address where you can be reached. 2. Acknowledgement that you will arrange for follow-up care as recommended. 3. Authorization for the Emergency Physician to provide information to your follow-up Physician in order to maximize your care. AT ANY TIME, IF YOUR SYMPTOMS CHANGE SIGNIFICANTLY OR WORSEN OR YOU DEVELOP NEW SYMPTOMS, RETURN TO THE EMERGENCY DEPARTMENT IMMEDIATELY FOR RE-EVALUATION. OUR GOAL IS TO PROVIDE EXCELLENT MEDICAL CARE! WE HOPE THAT WE HAVE MET YOUR EXPECTATIONS DURING YOUR EMERGENCY DEPARTMENT VISIT AND THAT YOU FEEL YOU HAVE RECEIVED EXCELLENT CARE! Prescriptions: Dicyclomine HCl [Bentyl 10 mg Capsule] 1 cap PO TID #30 cap Omeprazole 40 mg PO DAILY #20 capsule. Promethazine HCl [Phenergan 25 mg Tablet] 1 - 2 tab PO Q6H PRN #15 tablet PRN Reason: Referrals: RONALD BARKER FNP-C [Primary Care Provider] - Follow up as needed
[2019-06-22 04:42] LABS: APPEARANCE,URINE SLIGHTLY-CLOUDY; BILIRUBIN,URINE NEGATIVE (NEGATIVE); COLOR,URINE YELLOW; GLUCOSE, URINE >=500 mg/dL (NEGATIVE); KETONES,URINE TRACE mg/dL (NEGATIVE); LEUKOCYTE ESTERASE,URINE NEGATIVE (NEGATIVE); NITRITE,URINE POSITIVE (NEGATIVE); PROTEIN,URINE 100 mg/dL (NEGATIVE); URINE SPECIFIC GRAVITY 1.021; UROBILINOGEN,URINE NEGATIVE mg/dL (<2.0)
[2019-06-22] MEDS ORDERED: PROCHLORPERAZINE EDISYLATE INJ 10 MG/2 ML VIAL IV ONE (04:42)
[2019-06-22] MEDS ORDERED: FENTANYL CITRATE INJ/PF 100 MCG/2 ML AMPUL IV ONE (04:43)
[2019-06-22] MEDS ORDERED: PANTOPRAZOLE SODIUM 40 MG VIAL IV ONE (04:44)
[2019-06-22 06:55] VITALS: BP 189/98
== END 2019-06-22 06:54 | disposition home or self-care (01) ==
LOC: ER 03:18
DX: K86.1 Other chronic pancreatitis (principal); R10.9 Unspecified abdominal pain; F17.200 Nicotine dependence, unspecified, uncomplicated; E78.00 Pure hypercholesterolemia, unspecified; I10 Essential (primary) hypertension; E11.9 Type 2 diabetes mellitus without complications; Z88.6 Allergy status to analgesic agent; Z88.0 Allergy status to penicillin; Z90.710 Acquired absence of both cervix and uterus
CPT/HCPCS: 99284; 96374; 96375; 36415; 83690; 85025; 80053; 81001; J3010; C9113; J0780

== ENCOUNTER 2019-06-24 06:21 | Emergency (ER) | payer MEDICAID ==
[2019-06-24 08:02] LABS: ABSOLUTE BASOPHILS # (AUTO) 0.1 10^3/uL (0.0-0.2); ABSOLUTE EOSINOPHILS # (AUTO) 0.1 10^3/uL (0.0-0.6); ABSOLUTE LYMPHOCYTES (AUTO) 1.6 10^3/uL (0.5-4.7); ABSOLUTE MONOCYTES (AUTO) 0.5 10^3/uL (0.1-1.4); ABSOLUTE NEUT (AUTO) 5.4 10^3/uL (1.7-8.2); BASOPHILS % (AUTO) 1.4 % (0-2); EOSINOPHILS % (AUTO) 1.9 % (0-6); HEMATOCRIT 35.7 % (36.0-47.0); LYMPHOCYTES % (AUTO) 20.2 % (13-45); MEAN CORPUSCULAR HEMOGLOBIN 28.5 pg (27.0-33.4); MEAN CORPUSCULAR HGB CONC 33.7 g/dL (32.0-36.0); MEAN CORPUSCULAR VOLUME 85 fl (80-97); MONOCYTES % (AUTO) 6.7 % (3-13); PLATELET COUNT 355 10^3/uL (150-450); RED BLOOD COUNT 4.23 10^6/uL (3.72-5.28); RED CELL DISTRIBUTION WIDTH 15.5 % (11.5-14.0); SEGMENTED NEUTROPHILS % (AUTO) 69.8 % (42-78); TOTAL CELLS COUNTED % (AUTO) 100 %; WHITE BLOOD COUNT 7.7 10^3/uL (4.0-10.5)
[2019-06-24] MEDS ORDERED: METOCLOPRAMIDE HCL INJ/PF 10 MG/2 ML SDV IV ONE (08:03)
[2019-06-24] MEDS ORDERED: NORMAL SALINE 1000 ML 1,000 ML IV ONE (08:03)
[2019-06-24] MEDS ORDERED: FENTANYL CITRATE INJ/PF 100 MCG/2 ML AMPUL IV ONE (08:03)
[2019-06-24 08:16] LABS: APPEARANCE,URINE SLIGHTLY-CLOUDY; BILIRUBIN,URINE NEGATIVE (NEGATIVE); COLOR,URINE STRAW; GLUCOSE, URINE 50 mg/dL (NEGATIVE); KETONES,URINE NEGATIVE (NEGATIVE); LEUKOCYTE ESTERASE,URINE NEGATIVE (NEGATIVE); NITRITE,URINE NEGATIVE (NEGATIVE); PROTEIN,URINE 100 mg/dL (NEGATIVE); URINE SPECIFIC GRAVITY 1.009; UROBILINOGEN,URINE NEGATIVE mg/dL (<2.0)
[2019-06-24 08:17] LABS: ALBUMIN 4.5 g/dL (3.5-5.0); ALKALINE PHOSPHATASE 132 U/L (38-126); ANION GAP 6 (5-19); ASPARTATE AMINO TRANSFERASE 30 U/L (14-36); BILIRUBIN,DIRECT 0.1 mg/dL (0.0-0.4); BILIRUBIN,TOTAL 0.4 mg/dL (0.2-1.3); BLOOD UREA NITROGEN 22 mg/dL (7-20); CALCIUM 9.9 mg/dL (8.4-10.2); CARBON DIOXIDE 29 mmol/L (22-30); CHLORIDE 107 mmol/L (98-107); CREATINE KINASE 250 U/L (30-135); POTASSIUM 4.5 mmol/L (3.6-5.0); TOTAL PROTEIN 7.8 g/dL (6.3-8.2)
[2019-06-24 08:19] LABS: GLUCOSE 50 mg/dL (75-110)
[2019-06-24] MEDS ORDERED: DEXTROSE 50%-WATER 25 GM/50 ML DISP.SYRIN IV ONE (08:27)
--- NOTE | 2019-06-24 08:27 | ER Document Report ---
Entered by SARAH KELLY SCRIBE 06/24/19 0743 Acting as scribe for:JASPER BARAJAS MD ED GI/ - General Chief Complaint: Abdominal Pain Stated Complaint: ABDOMINAL PAIN Time Seen by Provider: 06/24/19 07:36 Primary Care Provider: RONALD BARKER FNP-C [Primary Care Provider] - Follow up as needed Information source: Patient Notes: This 38 year old female patient with chronic pancreatitis presents to the emergency department today with complaints of upper abdominal pain which began again today at 4:00 AM per history. Patient states that she could not fill the prescriptions that she was given from this emergency department x2 days ago (Bentyl, omeprazole, and promethazine HCl) because she does not have the money until next week. Patient reports that she has an appointment with her PCP in 2 days and they are going to be setting her up with a GI doctor here in town. Patient states she missed her first appointment with GI because she was admitted to this hospital. TRAVEL OUTSIDE OF THE [place] IN LAST 30 DAYS: No - Related Data Allergies/Adverse Reactions: hydrocodone [From [place]] Allergy (Verified 06/22/19 03:24) morphine Allergy (Verified 06/22/19 03:24) Penicillins Allergy (Verified 06/22/19 03:24) prednisone Allergy (Verified 06/22/19 03:24) Edema Home Medications: metoprol. lisinopril. amlodipine. lantus. novolog Past Medical History - General Information source: Patient - Social History Smoking Status: Current Every Day Smoker Cigarette use (# per day): Yes Chew tobacco use (# tins/day): No Frequency of alcohol use: None Drug Abuse: Marijuana Lives with: Family Family History: Reviewed & Not Pertinent, DM, Hypertension Patient has homicidal ideation: No - Past Medical History Cardiac Medical History: Reports: Hx Hypercholesterolemia, Hx Hypertension Pulmonary Medical History: Reports: Hx COPD Neurological Medical History: Reports: Hx Seizures Endocrine Medical History: Reports: Hx Diabetes Mellitus Type 2 Renal/ Medical History: Reports: Hx Renal Insufficiency GI Medical History: Reports: Hx Gastroesophageal Reflux Disease, Hx Pancreatitis Musculoskeletal Medical History: Reports Hx Musculoskeletal Trauma Skin Medical History: Psychiatric Medical History: Reports: Hx Anxiety, Hx Depression Past Surgical History: Reports: Hx Section - x3, Hx Hysterectomy - Immunizations Immunizations up to date: Yes Hx Diphtheria, Pertussis, Tetanus Vaccination: No Review of Systems - Review of Systems Constitutional: No symptoms reported EENT: No symptoms reported Cardiovascular: No symptoms reported Respiratory: No symptoms reported Gastrointestinal: See HPI, Abdominal pain Genitourinary: No symptoms reported Female Genitourinary: No symptoms reported Musculoskeletal: No symptoms reported Skin: No symptoms reported Hematologic/Lymphatic: No symptoms reported Neurological/Psychological: No symptoms reported -: Yes All other systems reviewed and negative Physical Exam - Vital signs Vitals: Temp 97.5 F 06/24/19 06:24 - Notes Notes: Physical Exam: General: Alert, appears uncomfortable. HEENT: Normocephalic. Atraumatic. PERRL. Extraocular movements intact. Oropharynx clear. Dry mucous membranes. Neck: Supple. Non-tender. Respiratory: No respiratory distress. Clear and equal breath sounds bilaterally. Cardiovascular: Regular rate and rhythm. Abdominal: Diffuse abdominal tenderness to palpation with increasing tenderness in the epigastrium. Positive guarding. No distension. Normal Bowel Sounds. Back: No gross abnormalities. Extremities: Moves all four extremities. Upper extremities: Normal inspection. Normal ROM. Lower extremities: Normal inspection. No edema. Normal ROM. Neurological: Normal cognition. AAOx4. Normal speech. Psychological: Normal affect. Normal Mood. Skin: Warm. Dry. Normal color. Course - Re-evaluation Re-evalutation: 06/24/19 12:26 Patient's blood pressure is quite high. She was given Lopressor 5 mg IV, just over an hour ago and it does not seem to have affected her blood pressure or her heart rate. She will be given additional dose of Lopressor 5 mg IV along with hydralazine 20 mg IV. This time she is requesting something to eat. 06/24/19 12:28 The lipase today is elevated slightly, it is a little higher than it was 2 days ago, and a little lower than it was 3 days ago. 06/24/19 13:44 Patient was given additional medicine for blood pressure and it has now come down to 156/97. She is eating peanut butter and crackers right now. She reports that she does have an appointment with her primary care provider on Tuesday and she is supposed to be set up with an appointment to see Dr. Dunham for gastroenterology. She does have prescriptions from a few days ago she has not filled including one for Phenergan. She states Phenergan seems to work better than Reglan or Zofran for her vomiting when she has her pancreatitis exacerbations. She will be discharged with a Phenergan suppository dispense back. She is going to take her blood pressure medications when she gets home. - Vital Signs Vital signs: Temp Pulse Resp BP Pulse Ox 97.5 F 13 174/112 H 98 06/24/19 06:42 06/24/19 13:00 06/24/19 13:00 06/24/19 13:00 - Laboratory Result Diagrams: 06/24/19 07:34 06/24/19 07:34 Laboratory results interpreted by me: 06/24/19 06/24/19 06/24/19 07:34 07:34 07:34 Hct 35.7 L RDW 15.5 H BUN 22 H Creatinine 1.73 H Est GFR ( Amer) 40 L Est GFR (MDRD) Non-Af 33 L Glucose 50 L Alkaline Phosphatase 132 H Creatine Kinase 250 H Lipase 452.8 H Urine Protein 100 H Urine Glucose (UA) 50 H Urine Blood SMALL H Discharge - Discharge Clinical Impression: Acute on chronic pancreatitis High blood pressure Qualifiers: Hypertension type: essential hypertension Qualified Code(s): I10 - Essential (primary) hypertension Condition: Stable Disposition: HOME, SELF-CARE Additional Instructions: Pancreatitis: Pancreatitis is an inflammation of the pancreas, an organ at the back of your abdomen. The pancreas produces insulin and enzymes that digest your food. Pancreatitis can be caused by gallstones in the bile duct, by alcohol or viruses, or by excess fat or calcium in the blood stream. Occasionally, pancre atitis occurs when a stomach ulcer augustine through into the pancreas. We try to find the cause of pancreatitis, but some tests can't be done until the pancreas heals. The usual symptoms of pancreatitis are pain in the pit of the stomach that goes straight through to the back, vomiting, and low-grade fever. Severe cases require hospital admission, but many patients with mild pancreatitis do well at home. You will probably need medicine for pain and for vomiting. Sometimes we prescribe medicine to decrease stomach acid secretion and to decrease flow of pancreatic juices. Start with a diet of clear liquids (soda pop, juices). When the pain is decreasing, you can add some simple starches (potato, toast, applesauce). Avoid proteins and fats until you are completely painfree. When you're better, your doctor may suggest treatment to prevent future pancreatitis (such as gallbladder removal). Avoid alcohol forever. Get immediate treatment for any future episodes. Contact your doctor at once or return here if you have increasing pain, shortness of breath, general swelling, increasing size of the abdomen, continued vomiting, muscle spasms, or other new symptoms. Use the Phenergan suppositories for nauseousness if needed. Take your blood pressure medications when you get home. Follow-up with your doctor Tuesday as scheduled. RETURN TO THE EMERGENCY ROOM IF ANY NEW OR WORSENING SYMPTOMS. Referrals: RONALD BARKER, LYNNE [Primary Care Provider] - 06/26/19 I personally performed the services described in the documentation, reviewed and edited the documentation which was dictated to the scribe in my presence, and it accurately records my words and actions.
[2019-06-24] MEDS ORDERED: HYDROMORPHONE HCL INJ/PF 2 MG/ML AMPULE IV ONE (09:16)
[2019-06-24] MEDS ORDERED: METOPROLOL TARTRATE PF/INJ 5 MG/5 ML SDV IV ONE ×2 (11:05→12:26)
[2019-06-24] MEDS ORDERED: MAG HYDROX/AL HYDROX/SIMETH SUSP 30 ML UDCUP PO ONE (11:06)
[2019-06-24] MEDS ORDERED: PANTOPRAZOLE SODIUM 40 MG VIAL IV ONE (11:06)
[2019-06-24] MEDS ORDERED: LIDOCAINE 2% VISCOUS SOLN 15 ML UDCUP PO ONE (11:06)
[2019-06-24] MEDS ORDERED: HYDRALAZINE HCL INJ/PF 20 MG/1 ML SDV IV ONE (12:26)
[2019-06-24] MEDS ORDERED: PROMETHAZINE HCL 25 MG SUPP (4 SUPP/ER DISP) PR ONE (13:44)
[2019-06-24 13:55] VITALS: BP 156/97
== END 2019-06-24 14:08 | disposition home or self-care (01) ==
LOC: ER 06:21
DX: K85.90 Acute pancreatitis without necrosis or infection, unspecified (principal); K86.1 Other chronic pancreatitis; R10.10 Upper abdominal pain, unspecified; R10.817 Generalized abdominal tenderness; I10 Essential (primary) hypertension; J44.9 Chronic obstructive pulmonary disease, unspecified; E11.9 Type 2 diabetes mellitus without complications; F12.10 Cannabis abuse, uncomplicated; F17.210 Nicotine dependence, cigarettes, uncomplicated; Z79.899 Other long term (current) drug therapy; Z79.4 Long term (current) use of insulin; Z88.6 Allergy status to analgesic agent; Z88.5 Allergy status to narcotic agent; Z88.0 Allergy status to penicillin; Z88.8 Allergy status to other drugs, medicaments and biological substances
CPT/HCPCS: 96376; 99284; 96361; 96374; 96375; 36415; 82550; 83690; 85025; 80053; 81001; J3490 ×5; J3010; J0360; J2765; J1170; C9113; J7030

== ENCOUNTER 2019-06-26 02:15 | Emergency (ER) | payer MEDICAID ==
[2019-06-26] MEDS ORDERED: HALOPERIDOL LACTATE INJ 5 MG/1 ML VIAL IM ONE (03:15)
[2019-06-26] MEDS ORDERED: DIPHENHYDRAMINE HCL 50 MG/ML VIAL IM ONE (03:15)
[2019-06-26 03:32] LABS: ABSOLUTE LYMPHOCYTES (AUTO) 1.4 10^3/uL (0.5-4.7); ABSOLUTE MONOCYTES (AUTO) 0.6 10^3/uL (0.1-1.4); ABSOLUTE NEUT (AUTO) 9.3 10^3/uL (1.7-8.2); BASOPHILS % (AUTO) 0.4 % (0-2); EOSINOPHILS % (AUTO) 0.3 % (0-6); HEMATOCRIT 35.2 % (36.0-47.0); HEMOGLOBIN 11.7 g/dL (12.0-15.5); LYMPHOCYTES % (AUTO) 12.3 % (13-45); MEAN CORPUSCULAR HEMOGLOBIN 28.4 pg (27.0-33.4); MEAN CORPUSCULAR HGB CONC 33.3 g/dL (32.0-36.0); MEAN CORPUSCULAR VOLUME 85 fl (80-97); MONOCYTES % (AUTO) 5.4 % (3-13); PLATELET COUNT 390 10^3/uL (150-450); RED BLOOD COUNT 4.12 10^6/uL (3.72-5.28); RED CELL DISTRIBUTION WIDTH 15.4 % (11.5-14.0); SEGMENTED NEUTROPHILS % (AUTO) 81.6 % (42-78); TOTAL CELLS COUNTED % (AUTO) 100 %; WHITE BLOOD COUNT 11.4 10^3/uL (4.0-10.5)
[2019-06-26 03:34] LABS: VENOUS BLOOD BASE EXCESS 0.5 mmol/L; VENOUS BLOOD HCO3 27.2 mmol/L (20-32); VENOUS BLOOD PCO2 52.2 mmHg (35-63); VENOUS BLOOD PH 7.33 (7.30-7.42)
[2019-06-26 03:49] LABS: ALBUMIN 4.7 g/dL (3.5-5.0); ALKALINE PHOSPHATASE 163 U/L (38-126); ANION GAP 11 (5-19); ASPARTATE AMINO TRANSFERASE 27 U/L (14-36); BILIRUBIN,TOTAL 0.6 mg/dL (0.2-1.3); BLOOD UREA NITROGEN 28 mg/dL (7-20); CALCIUM 10.3 mg/dL (8.4-10.2); CARBON DIOXIDE 24 mmol/L (22-30); CHLORIDE 103 mmol/L (98-107); GLUCOSE 198 mg/dL (75-110); POTASSIUM 4.4 mmol/L (3.6-5.0); TOTAL PROTEIN 8.1 g/dL (6.3-8.2)
--- NOTE | 2019-06-26 04:14 | ER Document Report ---
ED General - General Chief Complaint: Abdominal Pain Stated Complaint: ABDOMINAL PAIN Time Seen by Provider: 06/26/19 02:47 Primary Care Provider: RONALD RIVERA FNP-C [Primary Care Provider] - Follow up as needed Notes: 38-year-old female presents emergency department complaining of epigastric abdominal pain similar to her prior chronic pancreatitis. Patient states that this episode is been going on for approximately the past 4 days, states she has been seen in the emergency department for this several times. Patient was prescribed several antinausea medications and pain medications including Bentyl and Reglan, states that she has not been able to get them filled as she does not get paid until tomorrow. Patient also notes that she is seeing her primary care provider Ronald Rivera, who is an APC, tomorrow. Patient was most recently discharged with Phenergan suppositories dispense pack and she states that using 3 of them did not help. Patient denies diarrhea, denies fevers. States that the only thing she can tolerate is water and ice chips everything else gives her pain and vomiting. States she feels like she is urinating more frequently, but denies dysuria. Blood sugar has been running between 50 and 200. TRAVEL OUTSIDE OF THE [place] IN LAST 30 DAYS: No - Related Data Allergies/Adverse Reactions: hydrocodone [From [place]] Allergy (Verified 06/22/19 03:24) morphine Allergy (Verified 06/22/19 03:24) Penicillins Allergy (Verified 06/22/19 03:24) prednisone Allergy (Verified 06/22/19 03:24) Edema Past Medical History - General Information source: Patient - Social History Smoking Status: Current Every Day Smoker Frequency of alcohol use: None - previously a heavy drinker, this is what is thought to hvae caused her pancreatitis. No longer drinks. Drug Abuse: Marijuana Family History: Reviewed & Not Pertinent, DM, Hypertension Patient has homicidal ideation: No - Past Medical History Cardiac Medical History: Reports: Hx Hypercholesterolemia, Hx Hypertension Pulmonary Medical History: Reports: Hx COPD Neurological Medical History: Reports: Hx Seizures Endocrine Medical History: Reports: Hx Diabetes Mellitus Type 2 Renal/ Medical History: Reports: Hx Renal Insufficiency GI Medical History: Reports: Hx Gastroesophageal Reflux Disease, Hx Pancreatitis Musculoskeletal Medical History: Reports Hx Musculoskeletal Trauma Skin Medical History: Psychiatric Medical History: Reports: Hx Anxiety, Hx Depression Past Surgical History: Reports: Hx Section - x3, Hx Hysterectomy - Immunizations Immunizations up to date: Yes Hx Diphtheria, Pertussis, Tetanus Vaccination: No Review of Systems - Review of Systems Constitutional: No symptoms reported. denies: Fever EENT: No symptoms reported Gastrointestinal: See HPI, Abdominal pain, Nausea, Vomiting. denies: Diarrhea -: Yes All other systems reviewed and negative Physical Exam - Vital signs Vitals: Temp 98.3 F 06/26/19 02:22 Interpretation: Hypertensive - Notes Notes: GENERAL: Alert, interacts well. Appears mildly uncomfortable. HEAD: Normocephalic, atraumatic EYES: Pupils equal, round and reactive to light, extraocular movements intact. ENT: Oral mucosa moist, tongue midline. NECK: Full range of motion, supple, trachea midline. LUNGS: Clear to auscultation bilaterally, no wheezes, rales or rhonchi, no respiratory distress. HEART: Regular rate and rhythm, no murmurs, gallops, rubs. ABDOMEN: Soft, mild epigastric tenderness to palpation with a small amount of guarding, no rigidity, no rebounding, nondistended, bowel sounds present in all 4 quadrants. EXTREMITIES: Moves all 4 extremities spontaneously, no edema, radial and dors anson pedis pulses 2/4 bilaterally. No cyanosis. NEUROLOGICAL: Alert and oriented x3, normal speech. PSYCH: Normal mood, normal affect. SKIN: Warm, Dry, normal turgor, scarring noted across multiple blood vessels consistent with multiple prior venous punctures and IVs. Course - Re-evaluation Re-evalutation: 06/26/19 04:26 Straight stick reveals CBC with leukocytosis of 11.4, anemia with a hemoglobin 11.7, over the past month she has ranged from a low of 9.2 to a high of 12 two days ago, CBC shows elevated BUN at 28, over the past month this is ranged from a high of 29 on the fifth to a low of 20 on the first, 2 days ago it was 22. Creatinine today is 1.92, over the past month that is ranged from a low of 1.49 to today's high of 1.92, it was higher than this on March 18 when it was 2.91. Today her lipase is 170.6, 2 days ago was 452.8. Patient has not been seen to vomit while in the emergency department. I did review old records on this patient, when I saw her within the past year I treated her initially with Dilaudid which did not help her pain or her vomiting and then I treated her with low-dose Haldol as well as Benadryl which resolved her symptoms completely. I am going to attempt this treatment again today. 06/26/19 04:54 Patient's nausea is resolved, drinking water with ice chips without difficulty. Patient still complains of epigastric abdominal pain. Discussed with patient that given the improvement in the lipase that her pancreatitis has likely resolved and now her residual pain is coming from the after effects of vomiting causing domingo-hernández tears and gastritis. Patient will be treated with Bentyl and GI cocktail. 06/26/19 05:09 UA with only trace ketones, specific gravity of 1.016 also supports that the patient does not need IV rehydration at this time, is tolerating oral fluids well. - Vital Signs Vital signs: Temp Pulse Resp BP Pulse Ox 98.3 F 88 16 169/98 H 100 06/26/19 02:27 06/26/19 02:27 06/26/19 02:27 06/26/19 02:27 06/26/19 02:27 - Laboratory Result Diagrams: 06/26/19 03:20 06/26/19 03:20 Laboratory results interpreted by me: 06/26/19 06/26/19 06/26/19 03:20 03:20 04:32 WBC 11.4 H Hgb 11.7 L Hct 35.2 L RDW 15.4 H Lymph % (Auto) 12.3 L Absolute Neuts (auto) 9.3 H Seg Neutrophils % 81.6 H BUN 28 H Creatinine 1.92 H Est GFR ( Amer) 35 L Est GFR (MDRD) Non-Af 29 L Glucose 198 H Calcium 10.3 H Alkaline Phosphatase 163 H Urine Protein >=500 H Urine Glucose (UA) >=500 H Urine Ketones TRACE H Urine Blood SMALL H Discharge - Discharge Clinical Impression: Epigastric abdominal pain Nausea and vomiting Qualifiers: Vomiting type: unspecified Vomiting Intractability: intractable Qualified Code(s): R11.2 - Nausea with vomiting, unspecified Type 2 diabetes mellitus, with long-term current use of insulin Qualifiers: Diabetes mellitus complication status: with hyperglycemia Qualified Code(s): E11.65 - Type 2 diabetes mellitus with hyperglycemia; Z79.4 - prison (curren t) use of insulin Chronic pancreatitis Qualifiers: Pancreatitis type: alcohol induced Qualified Code(s): K86.0 - Alcohol-induced chronic pancreatitis Gastritis Qualifiers: Gastritis type: unspecified gastritis Chronicity: acute Gastritis bleeding: without bleeding Qualified Code(s): K29.00 - Acute gastritis without bleeding Condition: Stable Disposition: HOME, SELF-CARE Additional Instructions: Today your lipase is normal. There is no remaining evidence of an acute flare of chronic pancreatitis. I suspect that the remaining pain that you are having comes from the fact that you have been vomiting nonstop for several days. This type of vomiting can cause irritation of the stomach and the esophagus. This irritation of the stomach is called gastritis. It is very important that you drink plenty of water, you eat gentle foods, do not eat anything spicy or greasy. Please follow a clear liquid diet for the next 2 days and then you may advance your diet gently as tolerated, please still avoid anything very greasy and do not drink any alcohol as this will trigger your pancreatitis again. You have been prescribed Bentyl to help with cramping pains in your stomach and Phenergan to help with your vomiting. These were prescribed by Dr. Mcclain 2 visits ago. You were not given any new prescriptions today. Please keep your follow-up appointment with Ms. Rivera as an outpatient. Please return to the emergency department for fevers or uncontrolled vomiting or any new or concerning symptoms. Referrals: RONALD RIVERA FNP-C [Primary Care Provider] - Follow up as needed
[2019-06-26] MEDS ORDERED: METOCLOPRAMIDE HCL ORAL SOLN 10 MG/10 ML UDCUP PO ONE (04:59)
[2019-06-26] MEDS ORDERED: LIDOCAINE 2% VISCOUS SOLN 15 ML UDCUP PO ONE (04:59)
[2019-06-26] MEDS ORDERED: MAG HYDROX/AL HYDROX/SIMETH SUSP 30 ML UDCUP PO ONE (04:59)
[2019-06-26] MEDS ORDERED: DICYCLOMINE HCL INJ 20 MG/2 ML AMPULE IM ONE (04:59)
[2019-06-26 05:04] LABS: APPEARANCE,URINE SLIGHTLY-CLOUDY; BILIRUBIN,URINE NEGATIVE (NEGATIVE); COLOR,URINE YELLOW; GLUCOSE, URINE >=500 mg/dL (NEGATIVE); KETONES,URINE TRACE mg/dL (NEGATIVE); LEUKOCYTE ESTERASE,URINE NEGATIVE (NEGATIVE); NITRITE,URINE NEGATIVE (NEGATIVE); PROTEIN,URINE >=500 mg/dL (NEGATIVE); URINE SPECIFIC GRAVITY 1.016; UROBILINOGEN,URINE NEGATIVE mg/dL (<2.0)
[2019-06-26 06:25] VITALS: BP 143/86
== END 2019-06-26 06:25 | disposition home or self-care (01) ==
LOC: ER 02:15
DX: K86.0 Alcohol-induced chronic pancreatitis (principal); K29.00 Acute gastritis without bleeding; R10.13 Epigastric pain; E11.65 Type 2 diabetes mellitus with hyperglycemia; Z79.4 Long term (current) use of insulin; Z79.899 Other long term (current) drug therapy; Z88.8 Allergy status to other drugs, medicaments and biological substances; Z88.0 Allergy status to penicillin; F17.200 Nicotine dependence, unspecified, uncomplicated; I10 Essential (primary) hypertension; J44.9 Chronic obstructive pulmonary disease, unspecified
CPT/HCPCS: 99284; 96372; 96374; 36415; 83690; 85025; 80053; 81001; 82803; J0500; J1200; J1630; J3490 ×3

== ENCOUNTER 2019-06-27 16:11 | Inpatient (IN) | payer MEDICAID ==
[2019-06-27] MEDS ORDERED: NORMAL SALINE 1000 ML 1,000 ML IV ONE ×2 (16:42→17:37)
[2019-06-27] MEDS ORDERED: HYDROMORPHONE HCL INJ/PF 2 MG/ML AMPULE IV ONE (16:50)
[2019-06-27] MEDS ORDERED: ONDANSETRON HCL INJ/PF 4 MG/2 ML SDV IV ONE (16:50)
--- NOTE | 2019-06-27 17:02 | ER Document Report ---
ED GI/ - General Chief Complaint: Abdominal Pain Stated Complaint: ABDOMINAL PAIN Time Seen by Provider: 06/27/19 16:34 Mode of Arrival: Medic Information source: Patient Notes: 38-year-old female presented to ED for complaint of epigastric abdominal pain. This is the same pain she has each day that she comes in. She states that she is taking all her medications that she supposed to take her mother to make sure she took all of her antibiotics all of her pain medicine all of her insulin and everything that she was prescribed and the pain is not getting any better. Patient denies any diarrhea but states she does have intermittent nausea and vomiting. She denies any fevers. She states she is doing everything everybody tells her but she is not getting any relief from her pain. Patient has been to the emergency room 8 times this month for abdominal pain. TRAVEL OUTSIDE OF THE [place] IN LAST 30 DAYS: No - HPI Patient complains to provider of: Abdominal pain, Other - Chronic pancreatitis Onset: Other - Chronic Timing/Duration: Persistent Quality of pain: Sharp, Stabbing Severity at maximum: Severe Severity in ED: Severe Pain Level: 5 Vaginal bleeding (Compared to normal period): None Associated symptoms: Nausea, Vomiting Exacerbated by: Other - Everything Relieved by: Denies Similar symptoms previously: Yes Recently seen / treated by doctor: Yes - Related Data Allergies/Adverse Reactions: hydrocodone [From [place]] Allergy (Verified 06/22/19 03:24) morphine Allergy (Verified 06/22/19 03:24) Penicillins Allergy (Verified 06/22/19 03:24) prednisone Allergy (Verified 06/22/19 03:24) Edema Past Medical History - General Information source: Patient - Social History Smoking Status: Current Every Day Smoker Cigarette use (# per day): Yes - Cigarettes a day Chew tobacco use (# tins/day): No Smoking Education Provided: Yes - 4 minutes Frequency of alcohol use: None - Previous heavy alcoholic has not drank in 10 years Drug Abuse: Marijuana Lives with: Family Family History: Reviewed & Not Pertinent, DM, Hypertension Patient has suicidal ideation: No Patient has homicidal ideation: No - Past Medical History Cardiac Medical History: Reports: Hx Hypercholesterolemia, Hx Hypertension Pulmonary Medical History: Reports: Hx COPD EENT Medical History: Reports: None Neurological Medical History: Reports: Hx Seizures Endocrine Medical History: Reports: Hx Diabetes Mellitus Type 2 Renal/ Medical History: Reports: Hx Renal Insufficiency Malignancy Medical History: Reports: None GI Medical History: Reports: Hx Gastroesophageal Reflux Disease, Hx Pancreatitis - Chronic Musculoskeletal Medical History: Reports Hx Musculoskeletal Trauma Skin Medical History: Reports None Psychiatric Medical History: Reports: Hx Anxiety, Hx Depression Traumatic Medical History: Reports: None Infectious Medical History: Reports: None Past Surgical History: Reports: Hx Section - x3, Hx Hysterectomy - Immunizations Immunizations up to date: Yes Hx Diphtheria, Pertussis, Tetanus Vaccination: No Review of Systems - Review of Systems Constitutional: No symptoms reported EENT: No symptoms reported Cardiovascular: No symptoms reported Respiratory: No symptoms reported Gastrointestinal: Abdominal pain, Nausea, Vomiting Genitourinary: No symptoms reported Female Genitourinary: No symptoms reported Musculoskeletal: No symptoms reported Skin: No symptoms reported Hematologic/Lymphatic: No symptoms reported Neurological/Psychological: No symptoms reported -: Yes All other systems reviewed and negative Physical Exam - Vital signs Vitals: Resp Pulse Ox 13 98 06/27/19 16:34 06/27/19 16:34 Interpretation: Normal - General General appearance: Appears well, Alert - HEENT Head: Normocephalic, Atraumatic Eyes: Normal Pupils: PERRL - Respiratory Respiratory status: No respiratory distress Chest status: Nontender Breath sounds: Normal Chest palpation: Normal - Cardiovascular Rhythm: Regular Heart sounds: Normal auscultation Murmur: No - Abdominal Inspection: Normal Distension: No distension. No: Distended Bowel sounds: Hyperactive Tenderness: Nontender, Tender - Epigastric Organomegaly: No organomegaly - Back Back: Normal, Nontender - Extremities General upper extremity: Normal inspection, Nontender, Normal color, Normal ROM, Normal temperature General lower extremity: Normal inspection, Nontender, Normal color, Normal ROM, Normal temperature, Normal weight bearing. No: Raheem's sign - Neurological Neuro grossly intact: Yes Cognition: Normal Orientation: AAOx4 [place] Scale Eye Opening: Spontaneous [place] Scale Verbal: Oriented [place] Scale Motor: Obeys Commands [place] Scale Total: 15 Speech: Normal Motor strength normal: LUE, RUE, LLE, RLE Sensory: Normal - Psychological Associated symptoms: Normal affect, Normal mood - Skin Skin Temperature: Warm Skin Moisture: Dry Skin Color: Normal Course - Re-evaluation Re-evalutation: 06/27/19 18:12 Discussed labs condition with [place] [facility] [employer] hospitalist. She has accepted the patient to admission. Patient will be admitted to telemetry floor. Patient has acute renal insufficiency, hypoglycemia and diabetes, pancreatitis, and unc ontrollable pain. Patient has been treated with apple juice for the low sugar, and 2 L of fluids. She was also received 1 mg of Dilaudid while in the emergency room as well as Zofran 4 mg IV. - Vital Signs Vital signs: Temp Pulse Resp BP Pulse Ox 98.5 F 15 113/81 100 06/27/19 16:39 06/27/19 19:01 06/27/19 19:00 06/27/19 19:01 - Laboratory Result Diagrams: 06/27/19 14:40 06/27/19 14:40 Laboratory results interpreted by me: 06/27/19 06/27/19 06/27/19 14:40 14:40 18:00 RBC 3.68 L Hgb 10.6 L Hct 31.5 L RDW 15.4 H BUN 41 H Creatinine 3.08 H Est GFR ( Amer) 20 L Est GFR (MDRD) Non-Af 17 L Glucose 48 L POC Glucose AST 41 H Alkaline Phosphatase 127 H Lipase 622.4 H Urine Protein 100 H Urine Glucose (UA) >=500 H Urine Nitrite POSITIVE H 06/27/19 18:16 RBC Hgb Hct RDW BUN Creatinine Est GFR ( Amer) Est GFR (MDRD) Non-Af Glucose POC Glucose 67 L AST Alkaline Phosphatase Lipase Urine Protein Urine Glucose (UA) Urine Nitrite Discharge - Discharge Clinical Impression: Renal insufficiency, Uncontrolled pain Pancreatitis Qualifiers: Chronicity: chronic Pancreatitis type: alcohol induced Qualified Code(s): K86.0 - Alcohol-induced chronic pancreatitis Disposition: ADMITTED INPATIENT Admitting Provider: Mayur (Hospitalist) Unit Admitted: Telemetry
[2019-06-27 17:03] LABS: ABSOLUTE EOSINOPHILS # (AUTO) 0.1 10^3/uL (0.0-0.6); ABSOLUTE LYMPHOCYTES (AUTO) 3.4 10^3/uL (0.5-4.7); ABSOLUTE MONOCYTES (AUTO) 0.6 10^3/uL (0.1-1.4); ABSOLUTE NEUT (AUTO) 4.7 10^3/uL (1.7-8.2); BASOPHILS % (AUTO) 0.5 % (0-2); EOSINOPHILS % (AUTO) 1.1 % (0-6); HEMATOCRIT 31.5 % (36.0-47.0); HEMOGLOBIN 10.6 g/dL (12.0-15.5); LYMPHOCYTES % (AUTO) 38.5 % (13-45); MEAN CORPUSCULAR HEMOGLOBIN 28.8 pg (27.0-33.4); MEAN CORPUSCULAR HGB CONC 33.7 g/dL (32.0-36.0); MEAN CORPUSCULAR VOLUME 86 fl (80-97); MONOCYTES % (AUTO) 7.1 % (3-13); PLATELET COUNT 395 10^3/uL (150-450); RED BLOOD COUNT 3.68 10^6/uL (3.72-5.28); RED CELL DISTRIBUTION WIDTH 15.4 % (11.5-14.0); SEGMENTED NEUTROPHILS % (AUTO) 52.8 % (42-78); TOTAL CELLS COUNTED % (AUTO) 100 %; WHITE BLOOD COUNT 8.9 10^3/uL (4.0-10.5)
[2019-06-27 17:38] LABS: ALBUMIN 4.5 g/dL (3.5-5.0); ALKALINE PHOSPHATASE 127 U/L (38-126); ANION GAP 9 (5-19); ASPARTATE AMINO TRANSFERASE 41 U/L (14-36); BILIRUBIN,DIRECT 0.1 mg/dL (0.0-0.4); BILIRUBIN,TOTAL 0.3 mg/dL (0.2-1.3); BLOOD UREA NITROGEN 41 mg/dL (7-20); CALCIUM 9.5 mg/dL (8.4-10.2); CARBON DIOXIDE 28 mmol/L (22-30); CHLORIDE 104 mmol/L (98-107); POTASSIUM 4.2 mmol/L (3.6-5.0); TOTAL PROTEIN 7.7 g/dL (6.3-8.2)
[2019-06-27 17:46] LABS: GLUCOSE 48 mg/dL (75-110)
[2019-06-27 18:26] LABS: APPEARANCE,URINE CLOUDY; BILIRUBIN,URINE NEGATIVE (NEGATIVE); COLOR,URINE YELLOW; GLUCOSE, URINE >=500 mg/dL (NEGATIVE); KETONES,URINE NEGATIVE (NEGATIVE); LEUKOCYTE ESTERASE,URINE NEGATIVE (NEGATIVE); NITRITE,URINE POSITIVE (NEGATIVE); PROTEIN,URINE 100 mg/dL (NEGATIVE); URINE SPECIFIC GRAVITY 1.012; UROBILINOGEN,URINE NEGATIVE mg/dL (<2.0)
[2019-06-27] MEDS ORDERED: ALBUTEROL SULFATE 0.083% NEB 2.5 MG/3 ML AMPUL NEB PRN (18:47)
[2019-06-27] MEDS ORDERED: ACETAMINOPHEN 325 MG TABLET PO PRN ×2 (18:47→19:07)
[2019-06-27] MEDS ORDERED: ONDANSETRON HCL INJ/PF 4 MG/2 ML SDV IV PRN (18:52)
[2019-06-27] MEDS ORDERED: GLUCAGON,HUMAN RECOMB 1 MG INJ SUBCUT PRN (18:52)
[2019-06-27] MEDS ORDERED: DEXTROSE 50%-WATER 25 GM/50 ML DISP.SYRIN IV PRN ×2 (18:52)
[2019-06-27] MEDS ORDERED: DEXTROSE 40% GEL 15 GM TUBE PO PRN ×2 (18:52)
[2019-06-27] MEDS ORDERED: PROMETHAZINE HCL INJ 25 MG/1 ML VIAL IV PRN (18:52)
--- NOTE | 2019-06-27 19:19 | PDOC H&P ---
History of Present Illness Admission Date/PCP: 06/27/19 18:29 LYNNE OLMEDO Patient complains of: abdominal pain History of Present Illness: JJ HOFFMAN is a 38 year old female, well-known to the hospitalist service, with a past medical history of hypertension, hyperlipidemia, COPD, seizure, uncontrolled diabetes mellitus, chronic pancreatitis GERD, depression, substance abuse, tobacco dependency, and alcohol abuse who presents to the emergency depa rtment today with a complaint of epigastric abdominal pain; she has been seen in the emergency department 8 times this month. Evaluation in the emergency department revealed stable vital signs, unremarkable CBC other than her baseline anemia, and chemistry notable for an RONIT (creatinine 3.08/BUN 41; baseline 1.9/22), hypoglycemia, mildly elevated AST, alk phos, and lipase of 622. Urinalysis notable for high protein, glucose, and nitrites. CT ABD/Pelvis on 06/21/19 remarkable only for chronic pancreatitis. She is provided IV fluids, IV Dilaudid, apple juice, and referred to the hospitalist service for admission and management of the above stated complaints and findings. Past Medical History Cardiac Medical History: Reports: Hyperlipidema, Hypertension Denies: Congestive Heart Failure, Myocardial Infarction Pulmonary Medical History: Reports: Chronic Obstructive Pulmonary Disease (COPD) EENT Medical History: Reports: None Neurological Medical History: Reports: Seizures Endocrine Medical History: Reports: Diabetes Mellitus Type 2 Renal/ Medical History: Reports: Chronic Kidney Disease Malignancy Medical History: Reports: None GI Medical History: Reports: Gastroesophageal Reflux Disease Musculoskeltal Medical History: Reports: None Skin Medical History: Reports: None Psychiatric Medical History: Reports: Depression, Substance Abuse, Tobacco Dependency Traumatic Medical History: Reports: None Hematology: Reports: Anemia Denies: Bleeding Tendencies Infectious Medical History: Reports: None Past Surgical History Past Surgical History: Reports: Section - x3, Hysterectomy Social History Information Source: Patient Lives with: Family Smoking Status: Current Every Day Smoker Electronic Cigarette use?: No Frequency of Alcohol Use: Heavy Hx Recreational Drug Use: Yes Drugs: Marijuana Hx Prescription Drug Abuse: No - Advance Directive Resuscitation Status: Full Code Family History Family History: Reviewed & Not Pertinent, DM, Hypertension Parental Family History Reviewed: Yes Children Family History Reviewed: Yes Sibling(s) Family History Reviewed.: Yes Medication/Allergy Home Medications: Chlorzoxazone [Parafon Forte Dsc 500 Mg Tablet] 500 mg PO BID PRN #20 tablet 06/13/19 Insulin Aspart [Novolog Flexpen] 1 unit SQ ASDIR PRN 06/21/19 Insulin Glargine,Hum.rec.anlog [Lantus (Pyxis) Insulin 100 Unit/1 ml 10 ml] 40 units SQ QAM 06/21/19 Dicyclomine HCl [Bentyl 10 mg Capsule] 10 mg PO TID 06/27/19 Allergies/Adverse Reactions: hydrocodone [From [place]] Allergy (Verified 06/22/19 03:24) morphine Allergy (Verified 06/22/19 03:24) Penicillins Allergy (Verified 06/22/19 03:24) prednisone Allergy (Verified 06/22/19 03:24) Edema Review of Systems Constitutional: PRESENT: anorexia. ABSENT: chills, fever(s), headache(s), weight gain, weight loss Eyes: ABSENT: visual disturbances Ears: ABSENT: hearing changes Cardiovascular: ABSENT: chest pain, dyspnea on exertion, edema, orthropnea, p alpitations Respiratory: ABSENT: cough, hemoptysis Gastrointestinal: PRESENT: abdominal pain, constipation. ABSENT: diarrhea, hematemesis, hematochezia, nausea, vomiting Genitourinary: ABSENT: difficulty urinating, dysuria, hematuria Musculoskeletal: ABSENT: joint swelling Integumentary: ABSENT: rash, wounds Neurological: ABSENT: abnormal gait, abnormal speech, confusion, dizziness, focal weakness, syncope Psychiatric: ABSENT: anxiety, depression, homidical ideation, suicidal ideation Endocrine: ABSENT: cold intolerance, heat intolerance, polydipsia, polyuria Hematologic/Lymphatic: ABSENT: easy bleeding, easy bruising Physical Exam Vital Signs: Temp Pulse Resp BP Pulse Ox 98.5 F 128/80 H 06/27/19 16:39 06/27/19 17:11 Intake & Output 06/26/19 06/27/19 06/28/19 06:59 06:59 06:59 Intake Total 1000 Balance 1000 General appearance: PRESENT: no acute distress, well-developed, well-nourished Head exam: PRESENT: atraumatic, normocephalic Eye exam: PRESENT: conjunctiva pink, EOMI, PERRLA. ABSENT: scleral icterus Mouth exam: PRESENT: dry mucosa, tongue midline Neck exam: ABSENT: carotid bruit, JVD, lymphadenopathy, thyromegaly Respiratory exam: PRESENT: clear to auscultation teddy, symmetrical, unlabored. ABSENT: rales, rhonchi, wheezes Cardiovascular exam: PRESENT: RRR. ABSENT: diastolic murmur, rubs, systolic murmur Pulses: PRESENT: normal dorsalis pedis pul Vascular exam: PRESENT: normal capillary refill GI/Abdominal exam: PRESENT: normal bowel sounds, soft, tenderness. ABSENT: distended, guarding, mass, organolmegaly, rebound Rectal exam: PRESENT: deferred Extremities exam: PRESENT: full ROM. ABSENT: calf tenderness, clubbing, pedal edema Musculoskeletal exam: PRESENT: ambulatory Neurological exam: PRESENT: alert, awake, oriented to person, oriented to place, oriented to time, oriented to situation, CN II-XII grossly intact. ABSENT: motor sensory deficit Psychiatric exam: PRESENT: appropriate affect, normal mood. ABSENT: homicidal ideation, suicidal ideation Skin exam: PRESENT: dry, intact, warm. ABSENT: cyanosis, rash Results Laboratory Results: 06/27/19 14:40 06/27/19 14:40 06/27/19 06/27/19 06/27/19 14:40 14:40 18:00 WBC 8.9 RBC 3.68 L Hgb 10.6 L Hct 31.5 L MCV 86 MCH 28.8 MCHC 33.7 RDW 15.4 H Plt Count 395 Seg Neutrophils % 52.8 Sodium 141.3 Potassium 4.2 Chloride 104 Carbon Dioxide 28 Anion Gap 9 BUN 41 H Creatinine 3.08 H Est GFR ( Amer) 20 L Glucose 48 L Calcium 9.5 Total Bilirubin 0.3 AST 41 H Alkaline Phosphatase 127 H Total Protein 7.7 Albumin 4.5 Lipase 622.4 H Urine Color YELLOW Urine Appearance CLOUDY Urine pH 5.0 Ur Specific [place] 1.012 Urine Protein 100 H Urine Glucose (UA) >=500 H Urine Ketones NEGATIVE Urine Blood NEGATIVE Urine Nitrite POSITIVE H Ur Leukocyte Esterase NEGATIVE Urine WBC (Auto) 6 Urine RBC (Auto) 3 Assessment and Plan - Diagnosis (1) Acute kidney injury superimposed on CKD Is this a current diagnosis for this admission?: Yes Plan: Likely prerenal as the patient admits to anorexia with decreased p.o. intake related to epigastric pain. Urine sodium and creatinine pending. Low suspicion for postobstructive cause as the patient had CT ABD/Pelvis (06/21/2019) that was negative for renal calculi or hydronephrosis. Patient is admitted to medical floor on continuous cardiac telemetry. Avoid nephrotoxic medications as able; renally dosed where necessary. Generous IV fluids. Follow-up chemistry. Consider nephrology consultation if not improved in the morning. (2) Chronic pancreatitis Qualifiers: Pancreatitis type: alcohol induced Qualified Code(s): K86.0 - Alcohol- induced chronic pancreatitis Is this a current diagnosis for this admission?: Yes Plan: Patient has presented to the emergency department 8 times since June 07; 5 times following this week. CT ABD/Pelvis (06/21/19) notable only for chronic pancreatitis. Lipase 622; significantly lower than her average during acute exacerbations. She denies active vomiting; complains of epigastric discomfort anorexia only. We will place in n.p.o. status. Continue generous IV fluids. Antiemetics and analgesics as needed. (3) COPD (chronic obstructive pulmonary disease) Qualifiers: Emphysema type: unspecified Is this a current diagnosis for this admission?: Yes Plan: Stable and without exacerbation at this time. Supplemental oxygen as needed maintain saturations greater than 89%. As needed nebulizer treatments. No indications for steroid or antibiotic therapy at this time. (4) Hyperlipidemia Qualifiers: Hyperlipidemia type: unspecified Qualified Code(s): E78.5 - Hyperlipidemia, unspecified Is this a current diagnosis for this admission?: Yes Plan: Daily statin therapy. (5) Hypertension Qualifiers: Hypertension type: essential hypertension Qualified Code(s): I10 - Essential (primary) hypertension Is this a current diagnosis for this admission?: Yes Plan: Acceptable blood pressures at present. We will resume home medication regiment once tolerating p.o. IV hydralazine as needed for blood pressure control. (6) Hypoglycemia Is this a current diagnosis for this admission?: Yes Plan: Likely secondary to poor p.o. intake with continued insulin use. Accu-Cheks every 6 hours. Hypoglycemia protocol. (7) Seizure disorder Is this a current diagnosis for this admission?: Yes Plan: Continue Keppra twice daily. (8) Uncontrolled diabetes mellitus Qualifiers: Diabetes mellitus type: other specified (including JERRELL) Glycemic state: with hyperglycemia Qualified Code(s): E13.65 - Other specified diabetes mellitus with hyperglycemia Is this a current diagnosis for this admission?: Yes Plan: A1C 9.3% (06/06/19) Currently in n.p.o. status. Accu-Cheks q6h with Humalog for sliding scale coverage. Hypoglycemia protocol in place. (9) Tobacco dependence Is this a current diagnosis for this admission?: Yes Plan: Smoking cessation encouraged. Nicotine replacement therapies provided (10) Substance abuse Is this a current diagnosis for this admission?: Yes Plan: Patient admits to daily marijuana use. Cessation encouraged. UDS pending. (11) Epigastric abdominal pain Is this a current diagnosis for this admission?: Yes Plan: CT ABD/Pelvis (06/21/19) notable only for chronic pancreatitis. Lipase 622; significantly lower than her average during acute exacerbations. She denies active vomiting; complains of epigastric discomfort anorexia only. I do wonder if the patient is actually experiencing gastritis/PUD Will place on Protonix 40 mg IV every 12 hours. Start Carafate every 6 while n.p.o. We will send for H pylori IgG/IgM. Unfortunately, gastroenterology not available; will discuss with surgery tomorrow potential for EGD. - Time Time Spent with patient: 35 or more minutes Medications reviewed and adjusted accordingly: Yes Anticipated discharge: Home Within: within 48 hours
[2019-06-27 20:22] LABS: URINE CREATININE 110.8 mg/dL (16-327)
[2019-06-27] MEDS: PANTOPRAZOLE SODIUM 40 MG VIAL IV SCH (21:17)
[2019-06-27] MEDS: HEPARIN SOD (PORCINE) 5,000 UNIT/ML 1 ML VIAL SUBCUT SCH (21:17)
[2019-06-27] MEDS: HYDROMORPHONE HCL INJ/PF 2 MG/ML AMPULE IV PRN (21:17)
[2019-06-27] MEDS: LEVETIRACETAM 500 MG TABLET PO SCH (21:18)
[2019-06-27] MEDS: ATORVASTATIN CALCIUM 20 MG TABLET PO SCH (21:18)
[2019-06-27] MEDS: NORMAL SALINE 1000 ML 1,000 ML IV PRN (21:21)
[2019-06-27] MEDS: INSULIN LISPRO 100 UNIT/ML 3 ML VIAL SUBCUT SCH (22:25)
[2019-06-28] MEDS: SUCRALFATE 1 GM TABLET PO SCH ×5 (00:45→23:20)
[2019-06-28] MEDS: HYDROMORPHONE HCL INJ/PF 2 MG/ML AMPULE IV PRN (01:44)
[2019-06-28] MEDS: NORMAL SALINE 1000 ML 1,000 ML IV PRN ×2 (05:35→20:02)
[2019-06-28] MEDS: HEPARIN SOD (PORCINE) 5,000 UNIT/ML 1 ML VIAL SUBCUT SCH ×3 (05:52→21:28)
[2019-06-28] MEDS ORDERED: PANTOPRAZOLE SODIUM 40 MG TABLET.DR PO SCH (06:00)
[2019-06-28 06:52] LABS: ABSOLUTE BASOPHILS # (AUTO) 0.1 10^3/uL (0.0-0.2); ABSOLUTE EOSINOPHILS # (AUTO) 0.1 10^3/uL (0.0-0.6); ABSOLUTE LYMPHOCYTES (AUTO) 2.9 10^3/uL (0.5-4.7); ABSOLUTE MONOCYTES (AUTO) 0.6 10^3/uL (0.1-1.4); ABSOLUTE NEUT (AUTO) 4.2 10^3/uL (1.7-8.2); BASOPHILS % (AUTO) 0.8 % (0-2); EOSINOPHILS % (AUTO) 1.2 % (0-6); HEMATOCRIT 34.4 % (36.0-47.0); HEMOGLOBIN 11.2 g/dL (12.0-15.5); MEAN CORPUSCULAR HGB CONC 32.4 g/dL (32.0-36.0); MEAN CORPUSCULAR VOLUME 86 fl (80-97); MONOCYTES % (AUTO) 8.1 % (3-13); PLATELET COUNT 373 10^3/uL (150-450); RED BLOOD COUNT 3.98 10^6/uL (3.72-5.28); RED CELL DISTRIBUTION WIDTH 15.7 % (11.5-14.0); SEGMENTED NEUTROPHILS % (AUTO) 52.9 % (42-78); TOTAL CELLS COUNTED % (AUTO) 100 %
[2019-06-28 07:07] LABS: ALKALINE PHOSPHATASE 123 U/L (38-126); ANION GAP 6 (5-19); ASPARTATE AMINO TRANSFERASE 45 U/L (14-36); BILIRUBIN,DIRECT 0.3 mg/dL (0.0-0.4); BILIRUBIN,TOTAL 0.5 mg/dL (0.2-1.3); BLOOD UREA NITROGEN 29 mg/dL (7-20); CALCIUM 9.3 mg/dL (8.4-10.2); CARBON DIOXIDE 24 mmol/L (22-30); CHLORIDE 111 mmol/L (98-107); GLUCOSE 184 mg/dL (75-110); POTASSIUM 4.4 mmol/L (3.6-5.0); TOTAL PROTEIN 7.2 g/dL (6.3-8.2)
[2019-06-28] MEDS ORDERED: LIPASE/PROTEASE/AMYLASE 1 CAP CAPSULE.DR PO SCH (08:00)
[2019-06-28] MEDS ORDERED: OXYCODONE-ACETAMINOPHEN 5-325 MG TABLET PO PRN (08:32)
[2019-06-28] MEDS ORDERED: CHLORZOXAZONE 500 MG TABLET PO PRN (08:33)
[2019-06-28] MEDS ORDERED: ONDANSETRON HCL INJ/PF 4 MG/2 ML SDV IV PRN (09:00)
[2019-06-28] MEDS: INSULIN LISPRO 100 UNIT/ML 3 ML VIAL SUBCUT SCH ×4 (09:05→21:27)
[2019-06-28] MEDS: OXYCODONE-ACETAMINOPHEN 5-325 MG TABLET PO PRN ×3 (09:06→23:20)
[2019-06-28] MEDS: HYDRALAZINE HCL INJ/PF 20 MG/1 ML SDV IV PRN (09:10)
[2019-06-28] MEDS: NICOTINE 14 MG/24 HR PATCH.TD24 TD SCH (10:11)
[2019-06-28] MEDS: LEVETIRACETAM 500 MG TABLET PO SCH ×2 (10:11→21:27)
[2019-06-28] MEDS: AMLODIPINE BESYLATE 10 MG TABLET PO SCH (10:11)
[2019-06-28] MEDS: METOPROLOL TARTRATE 50 MG TABLET PO SCH ×2 (10:11→21:27)
[2019-06-28] MEDS: DICYCLOMINE HCL 10 MG CAPSULE PO SCH ×2 (10:11→16:27)
[2019-06-28] MEDS: PANTOPRAZOLE SODIUM 40 MG VIAL IV SCH ×2 (10:12→21:27)
[2019-06-28] MEDS ORDERED: LIDOCAINE 2% VISCOUS SOLN 15 ML UDCUP PO ONE (12:30)
[2019-06-28] MEDS ORDERED: MAG HYDROX/AL HYDROX/SIMETH SUSP 30 ML UDCUP PO ONE (12:30)
[2019-06-28] MEDS ORDERED: METOCLOPRAMIDE HCL ORAL SOLN 10 MG/10 ML UDCUP PO ONE (12:30)
[2019-06-28] MEDS: LIPASE/PROTEASE/AMYLASE 1 CAP CAPSULE.DR PO SCH (16:26)
[2019-06-28] MEDS ORDERED: MAG HYDROX/AL HYDROX/SIMETH SUSP 30 ML UDCUP PO PRN (16:52)
--- NOTE | 2019-06-28 16:54 | PDOC PROGRESS REPORT ---
Subjective Progress Note for:: 06/28/19 Subjective:: JJ HOFFMAN is a 38 year old female, well-known to the hospitalist service, with a past medical history of hypertension, hyperlipidemia, COPD, seizure, uncontrolled diabetes mellitus, chronic pancreatitis GERD, depression, substance abuse, tobacco dependency, and alcohol abuse who was admitted 06/27/2019 with acute kidney injury. Patient was seen on morning rounds. She is found resting in bed, comfortably, on room air. She reports that her pain is significantly improved following GI cocktail and request to advance her diet today. Otherwise, she denies fever, chills, chest pain, palpitations, nausea and vomiting. She hasn o other questions or concerns. Nursing reports multiple episodes of hypoglycemia requiring correction overnight. Reason For Visit: RONIT Physical Exam Vital Signs: Temp Pulse Resp BP Pulse Ox 98.0 F 88 17 135/82 H 100 06/28/19 14:43 06/28/19 14:43 06/28/19 14:43 06/28/19 14:43 06/28/19 14:43 Intake & Output 06/27/19 06/28/19 06/29/19 06:59 06:59 06:59 Intake Total 3000 0 Output Total 600 Balance 2400 0 Weight 58.2 kg General appearance: PRESENT: no acute distress, well-developed, well-nourished Head exam: PRESENT: atraumatic, normocephalic Eye exam: PRESENT: conjunctiva pink, EOMI, PERRLA. ABSENT: scleral icterus Ear exam: PRESENT: normal external ear exam Mouth exam: PRESENT: moist, tongue midline Respiratory exam: PRESENT: clear to auscultation teddy, symmetrical, unlabored. ABSENT: rales, rhonchi, wheezes Cardiovascular exam: PRESENT: RRR, +S1, +S2. ABSENT: diastolic murmur, rubs, systolic murmur Vascular exam: PRESENT: normal capillary refill GI/Abdominal exam: PRESENT: normal bowel sounds, soft. ABSENT: distended, guarding, mass, organolmegaly, rebound, tenderness Rectal exam: PRESENT: deferred Extremities exam: PRESENT: full ROM. ABSENT: calf tenderness, clubbing, pedal edema Musculoskeletal exam: PRESENT: ambulatory Neurological exam: PRESENT: alert, awake, oriented to person, oriented to place, oriented to time, oriented to situation, CN II-XII grossly intact. ABSENT: motor sensory deficit Psychiatric exam: PRESENT: appropriate affect, normal mood. ABSENT: homicidal ideation, suicidal ideation Skin exam: PRESENT: dry, intact, warm. ABSENT: cyanosis, rash Results Laboratory Results: 06/28/19 06:37 06/28/19 06:33 06/27/19 06/27/19 06/27/19 14:40 14:40 18:00 WBC 8.9 RBC 3.68 L Hgb 10.6 L Hct 31.5 L MCV 86 MCH 28.8 MCHC 33.7 RDW 15.4 H Plt Count 395 Seg Neutrophils % 52.8 Sodium 141.3 Potassium 4.2 Chloride 104 Carbon Dioxide 28 Anion Gap 9 BUN 41 H Creatinine 3.08 H Est GFR ( Amer) 20 L Glucose 48 L Calcium 9.5 Total Bilirubin 0.3 AST 41 H Alkaline Phosphatase 127 H Total Protein 7.7 Albumin 4.5 Lipase 622.4 H Urine Color YELLOW Urine Appearance CLOUDY Urine pH 5.0 Ur Specific [place] 1.012 Urine Protein 100 H Urine Glucose (UA) >=500 H Urine Ketones NEGATIVE Urine Blood NEGATIVE Urine Nitrite POSITIVE H Ur Leukocyte Esterase NEGATIVE Urine WBC (Auto) 6 Urine RBC (Auto) 3 06/28/19 06/28/19 06:33 06:37 WBC 8.0 RBC 3.98 Hgb 11.2 L Hct 34.4 L MCV 86 MCH 28.0 MCHC 32.4 RDW 15.7 H Plt Count 373 Seg Neutrophils % 52.9 Sodium 141.0 Potassium 4.4 Chloride 111 H Carbon Dioxide 24 Anion Gap 6 BUN 29 H Creatinine 1.95 H Est GFR ( Amer) 35 L Glucose 184 H Calcium 9.3 Total Bilirubin 0.5 AST 45 H Alkaline Phosphatase 123 Total Protein 7.2 Albumin 4.0 Lipase 333.5 H Urine Color Urine Appearance Urine pH Ur Specific [place] Urine Protein Urine Glucose (UA) Urine Ketones Urine Blood Urine Nitrite Ur Leukocyte Esterase Urine WBC (Auto) Urine RBC (Auto) Assessment and Plan - Diagnosis (1) Acute kidney injury superimposed on CKD Is this a current diagnosis for this admission?: Yes Plan: Resolved; has returned to her baseline creatinine/BUN. Urine sodium 57, Creatinine 110. FeNA suggests Intrinsic; possibly related to multiple nephrotoxic medications in patient w/ mild dehydration and uncontrolled DM. Low suspicion for postobstructive cause as the patient had CT ABD/Pelvis (06/21/2019) that was negative for renal calculi or hydronephrosis. Patient is admitted to medical floor on continuous cardiac telemetry. Avoid nephrotoxic medications as able; renally dosed where necessary. Generous IV fluids. Follow-up chemistry. 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 ABD/Pelvis (06/21/19) notable only for chronic pancreatitis. Lipase 622-> 333; significantly lower than her average during acute exacerbations. She denies active vomiting; complains of epigastric discomfort anorexia only. Have advanced diet gradually; tolerating well. Will trial a soft, low residue. Continue IV fluids. Start Pancreaze capsules with meals. Antiemetics and analgesics as needed. (3) COPD (chronic obstructive pulmonary disease) Qualifiers: Emphysema type: unspecified Is this a current diagnosis for this admission?: Yes Plan: Stable and without exacerbation at this time. Supplemental oxygen as needed maintain saturations greater than 89%. As needed nebulizer treatments. No indications for steroid or antibiotic therapy at this time. (4) Hyperlipidemia Qualifiers: Hyperlipidemia type: unspecified Qualified Code(s): E78.5 - Hyperlipidemia, unspecified Is this a current diagnosis for this admission?: Yes Plan: Daily statin therapy. (5) Hypertension Qualifiers: Hypertension type: essential hypertension Qualified Code(s): I10 - Essential (primary) hypertension Is this a current diagnosis for this admission?: Yes Plan: Acceptable blood pressures at present. Continue home dose amlodipine and metoprolol. We will resume home dose lisinopril. IV hydralazine as needed for blood pressure control. (6) Hypoglycemia Is this a current diagnosis for this admission?: Yes Plan: Likely secondary to poor p.o. intake with continued insulin use. Accu-Cheks every 6 hours. Hypoglycemia protocol. Have advance diet today; hopefully her hypoglycemic events will resolve and she can be safely discharged home early tomorrow morning. (7) Seizure disorder Is this a current diagnosis for this admission?: Yes Plan: Continue Keppra twice daily. (8) Uncontrolled diabetes mellitus Qualifiers: Diabetes mellitus type: other specified (including JERRELL) Glycemic state: with hyperglycemia Qualified Code(s): E13.65 - Other specified diabetes mellitus with hyperglycemia Is this a current diagnosis for this admission?: Yes Plan: A1C 9.3% (06/06/19) Advance to a consistent carb, soft, low residue diet. Accu-Cheks q6h with Humalog for sliding scale coverage. Hypoglycemia protocol in place. (9) Tobacco dependence Is this a current diagnosis for this admission?: Yes Plan: Smoking cessation encouraged. Nicotine replacement therapies provided (10) Substance abuse Is this a current diagnosis for this admission?: Yes Plan: Patient admits to daily marijuana use. Cessation encouraged. UDS pending. (11) Epigastric abdominal pain Is this a current diagnosis for this admission?: Yes Plan: CT ABD/Pelvis (06/21/19) notable only for chronic pancreatitis. Lipase 622; significantly lower than her average during acute exacerbations. She denies active vomiting; complains of epigastric discomfort anorexia only. Patient reports that her symptoms were significantly improved today following GI cocktail. Will place on Protonix 40 mg IV every 12 hours. Continue Carafate every 6 hrs Maalox as needed. We will send for H pylori IgG/IgM. - Time Time Spent with patient: 25-34 minutes Medications reviewed and adjusted accordingly: Yes Anticipated discharge: Home Within: within 24 hours
[2019-06-28] MEDS: LISINOPRIL 10 MG TABLET PO SCH (18:44)
[2019-06-28] MEDS: ATORVASTATIN CALCIUM 20 MG TABLET PO SCH (21:27)
[2019-06-29] MEDS: SUCRALFATE 1 GM TABLET PO SCH ×4 (05:57→23:04)
[2019-06-29] MEDS: HEPARIN SOD (PORCINE) 5,000 UNIT/ML 1 ML VIAL SUBCUT SCH ×3 (05:57→21:48)
[2019-06-29] MEDS: NORMAL SALINE 1000 ML 1,000 ML IV PRN (05:58)
[2019-06-29] MEDS: INSULIN LISPRO 100 UNIT/ML 3 ML VIAL SUBCUT SCH ×4 (08:00→21:48)
[2019-06-29] MEDS: NICOTINE 14 MG/24 HR PATCH.TD24 TD SCH (09:51)
[2019-06-29] MEDS: AMLODIPINE BESYLATE 10 MG TABLET PO SCH (09:51)
[2019-06-29] MEDS: METOPROLOL TARTRATE 50 MG TABLET PO SCH (09:51)
[2019-06-29] MEDS: LIPASE/PROTEASE/AMYLASE 1 CAP CAPSULE.DR PO SCH ×2 (09:51→16:50)
[2019-06-29] MEDS: PANTOPRAZOLE SODIUM 40 MG VIAL IV SCH ×2 (09:51→21:48)
[2019-06-29] MEDS: LEVETIRACETAM 500 MG TABLET PO SCH ×2 (09:51→21:48)
[2019-06-29] MEDS: LISINOPRIL 10 MG TABLET PO SCH (09:51)
[2019-06-29] MEDS: OXYCODONE-ACETAMINOPHEN 5-325 MG TABLET PO PRN ×3 (09:51→23:04)
[2019-06-29] MEDS: DICYCLOMINE HCL 10 MG CAPSULE PO SCH ×3 (09:51→16:50)
[2019-06-29] MEDS ORDERED: (PENDING PHARMACY ID) (Lisinopril [Lisinopril] 20 MG) PO SCH (10:00)
[2019-06-29] MEDS: HYDRALAZINE HCL INJ/PF 20 MG/1 ML SDV IV PRN (11:24)
[2019-06-29] MEDS ORDERED: CARVEDILOL 12.5 MG TABLET PO ONE (12:30)
[2019-06-29] MEDS: CARVEDILOL 12.5 MG TABLET PO SCH (21:47)
[2019-06-29] MEDS: ATORVASTATIN CALCIUM 20 MG TABLET PO SCH (21:48)
[2019-06-30] MEDS: SUCRALFATE 1 GM TABLET PO SCH ×2 (05:44→11:51)
[2019-06-30] MEDS: HEPARIN SOD (PORCINE) 5,000 UNIT/ML 1 ML VIAL SUBCUT SCH ×2 (05:45→13:31)
[2019-06-30] MEDS: INSULIN LISPRO 100 UNIT/ML 3 ML VIAL SUBCUT SCH ×2 (07:21→11:47)
[2019-06-30] MEDS: LIPASE/PROTEASE/AMYLASE 1 CAP CAPSULE.DR PO SCH (07:54)
[2019-06-30] MEDS: DICYCLOMINE HCL 10 MG CAPSULE PO SCH ×2 (07:54→11:51)
[2019-06-30] MEDS: OXYCODONE-ACETAMINOPHEN 5-325 MG TABLET PO PRN (08:53)
--- NOTE | 2019-06-30 08:53 | PDOC PROGRESS REPORT ---
Subjective Progress Note for:: 06/29/19 Subjective:: JJ HOFFMAN is a 38 year old female, well-known to the hospitalist service, with a past medical history of hypertension, hyperlipidemia, COPD, seizure, uncontrolled diabetes mellitus, chronic pancreatitis GERD, depression, substance abuse, tobacco dependency, and alcohol abuse who was admitted 06/27/2019 with acute kidney injury. Patient was seen on morning rounds. She is found resting in bed, comfortably, on room air. She reports that her pain is significantly improved; tolerating a regular diet well. Looking forward to discharge home. Otherwise, she denies fever, chills, chest pain, palpitations, nausea and vomiting. She has no other questions or concerns. No further episodes of hypoglycemia; however, now with uncontrolled HTN Reason For Visit: RONIT Physical Exam Vital Signs: Temp Pulse Resp BP Pulse Ox 98.6 F 86 18 133/77 H 94 06/30/19 00:10 06/30/19 02:00 06/30/19 00:10 06/30/19 00:10 06/30/19 00:10 Intake & Output 06/29/19 06/30/19 07/01/19 06:59 06:59 06:59 Intake Total 1767 2610 Output Total 660 3050 Balance 1107 -440 Weight 58.2 kg 62.1 kg General appearance: PRESENT: no acute distress, well-developed, well-nourished Head exam: PRESENT: atraumatic, normocephalic Eye exam: PRESENT: conjunctiva pink, EOMI, PERRLA. ABSENT: scleral icterus Ear exam: PRESENT: normal external ear exam Mouth exam: PRESENT: moist, tongue midline Neck exam: ABSENT: carotid bruit, JVD, lymphadenopathy, thyromegaly Respiratory exam: PRESENT: clear to auscultation teddy. ABSENT: rales, rhonchi, wheezes Cardiovascular exam: PRESENT: RRR. ABSENT: diastolic murmur, rubs, systolic murmur Pulses: PRESENT: normal dorsalis pedis pul Vascular exam: PRESENT: normal capillary refill GI/Abdominal exam: PRESENT: normal bowel sounds, soft. ABSENT: distended, guarding, mass, organolmegaly, rebound, tenderness Rectal exam: PRESENT: deferred Gentrourinary exam: PRESENT: indwelling catheter Extremities exam: PRESENT: full ROM. ABSENT: calf tenderness, clubbing, pedal edema Musculoskeletal exam: PRESENT: ambulatory Neurological exam: PRESENT: alert, awake, oriented to person, oriented to place, oriented to time, oriented to situation, CN II-XII grossly intact. ABSENT: motor sensory deficit Psychiatric exam: PRESENT: appropriate affect, normal mood. ABSENT: homicidal ideation, suicidal ideation Skin exam: PRESENT: dry, intact, warm. ABSENT: cyanosis, rash Results Laboratory Results: 06/28/19 06:37 06/28/19 06:33 06/27/19 19:13 Clean Catch Midstream Urine Culture - Final Klebsiella Pneumoniae Assessment and Plan - Diagnosis (1) Acute kidney injury superimposed on CKD Is this a current diagnosis for this admission?: Yes Plan: Resolved; has returned to her baseline creatinine/BUN. Urine sodium 57, Creatinine 110. FeNA suggests Intrinsic; possibly related to multiple nephrotoxic medications in patient w/ mild dehydration and uncontrolled DM. Low suspicion for postobstructive cause as the patient had CT ABD/Pelvis (06/21/2019) that was negative for renal calculi or hydronephrosis. Patient is admitted to medical floor on continuous cardiac telemetry. Avoid nephrotoxic medications as able; renally dosed where necessary. Generous IV fluids. Follow-up chemistry. 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 ABD/Pelvis (06/21/19) notable only for chronic pancreatitis. Lipase 622-> 333; significantly lower than her average during acute exacerbations. She denies active vomiting; complains of epigastric discomfort anorexia only. Have advanced diet gradually; tolerating well. Start Pancreaze capsules with meals. Antiemetics and analgesics as needed. (3) COPD (chronic obstructive pulmonary disease) Qualifiers: Emphysema type: unspecified Is this a current diagnosis for this admission?: Yes Plan: Stable and without exacerbation at this time. Supplemental oxygen as needed maintain saturations greater than 89%. As needed nebulizer treatments. No indications for steroid or antibiotic therapy at this time. (4) Hyperlipidemia Qualifiers: Hyperlipidemia type: unspecified Qualified Code(s): E78.5 - Hyperlipidemia, unspecified Is this a current diagnosis for this admission?: Yes Plan: Daily statin therapy. (5) Hypertension Qualifiers: Hypertension type: essential hypertension Qualified Code(s): I10 - Essential (primary) hypertension Is this a current diagnosis for this admission?: Yes Plan: Continue home dose amlodipine Change po Metoprolol to Carvedilol for increased BP effect Continue home dose lisinopril. IV hydralazine as needed for blood pressure control. (6) Hypoglycemia Is this a current diagnosis for this admission?: Yes Plan: No further episodes. Likely secondary to poor p.o. intake with continued insulin use. Accu-Cheks every 6 hours. Hypoglycemia protocol. (7) Seizure disorder Is this a current diagnosis for this admission?: Yes Plan: Continue Keppra twice daily. (8) Uncontrolled diabetes mellitus Qualifiers: Diabetes mellitus type: other specified (including JERRELL) Glycemic state: with hyperglycemia Qualified Code(s): E13.65 - Other specified diabetes mellitus with hyperglycemia Is this a current diagnosis for this admission?: Yes Plan: A1C 9.3% (06/06/19) Advance to a consistent carb, soft, low residue diet. Accu-Cheks q6h with Humalog for sliding scale coverage. Hypoglycemia protocol in place. (9) Tobacco dependence Is this a current diagnosis for this admission?: Yes Plan: Smoking cessation encouraged. Nicotine replacement therapies provided (10) Substance abuse Is this a current diagnosis for this admission?: Yes Plan: Patient admits to daily marijuana use. Cessation encouraged. UDS pending. (11) Epigastric abdominal pain Is this a current diagnosis for this admission?: Yes Plan: Resolved; likely related to gastritis. T ABD/Pelvis (06/21/19) notable only for chronic pancreatitis. Lipase 622; significantly lower than her average during acute exacerbations. She denies active vomiting; complains of epigastric discomfort anorexia only. Patient reports that her symptoms were significantly improved today following GI cocktail. Will place on Protonix 40 mg IV every 12 hours. Continue Carafate every 6 hrs Maalox as needed. We will send for H pylori IgG/IgM. - Time Time Spent with patient: 25-34 minutes Medications reviewed and adjusted accordingly: Yes Anticipated discharge: Home Within: within 24 hours
[2019-06-30 09:02] VITALS: BP 171/87
[2019-06-30] MEDS: LEVETIRACETAM 500 MG TABLET PO SCH (09:45)
[2019-06-30] MEDS: AMLODIPINE BESYLATE 10 MG TABLET PO SCH (09:45)
[2019-06-30] MEDS: LISINOPRIL 10 MG TABLET PO SCH (09:45)
[2019-06-30] MEDS: CARVEDILOL 12.5 MG TABLET PO SCH (09:45)
[2019-06-30] MEDS: PANTOPRAZOLE SODIUM 40 MG VIAL IV SCH (09:46)
[2019-06-30] MEDS: NICOTINE 14 MG/24 HR PATCH.TD24 TD SCH (09:46)
--- NOTE | 2019-07-01 17:03 | PDOC DISCHARGE SUMMARY ---
Impression - Admit/DC Date/PCP Admission Date/Primary Care Provider: 06/27/19 18:29 LYNNE OLMEDO Discharge Date: 06/30/19 - Discharge Diagnosis (1) Acute kidney injury superimposed on CKD Is this a current diagnosis for this admission?: Yes (2) Chronic pancreatitis Is this a current diagnosis for this admission?: Yes (3) COPD (chronic obstructive pulmonary disease) Is this a current diagnosis for this admission?: Yes (4) Hyperlipidemia Is this a current diagnosis for this admission?: Yes (5) Hypertension Is this a current diagnosis for this admission?: Yes (6) Hypoglycemia Is this a current diagnosis for this admission?: Yes (7) Seizure disorder Is this a current diagnosis for this admission?: Yes (8) Uncontrolled diabetes mellitus Is this a current diagnosis for this admission?: Yes (9) Tobacco dependence Is this a current diagnosis for this admission?: Yes (10) Substance abuse Is this a current diagnosis for this admission?: Yes (11) Epigastric abdominal pain Is this a current diagnosis for this admission?: Yes - Additional Information Resuscitation Status: Full Code Discharge Diet: Diabetic, Other (Comments) - Low fat, low acidity. NO alcohol Discharge Activity: Activity As Tolerated, Balance Activity w/Rest Referrals: AJIT PALOMINO MD [ACTIVE STAFF] - (PATIENT WILL NEED TO CALL OFFICE AND SCHEDULE AN APPT.) RONALD BARKER FNP-C [Primary Care Provider] - 07/06/19 10:30 am (Follow up within 1 week. PATIENT WILL NEED TO CHECK IN FROM VEHICLE.) Prescriptions: Sucralfate [Carafate 1 gm Tablet] 1 gm PO Q6 #120 tablet Carvedilol [Coreg 12.5 mg Tablet] 12.5 mg PO Q12 #60 tablet Atorvastatin Calcium [Lipitor 20 mg Tablet] 20 mg PO QHS #30 tablet Nicotine [Nicoderm 14 mg/24 Hr Transdermal Patch] 1 each TD DAILY #30 patch.td24 Omeprazole 20 mg PO BID #60 capsule. Lipase/Protease/Amylase [Pancreaze-10 Capsule.dr] 2 cap PO BIDACBS #180 capsule. Oxycodone HCl/Acetaminophen [Percocet 5-325 mg Tablet] 1 tab PO Q4HP PRN #12 tab PRN Reason: For Pain Ondansetron [Zofran Odt 4 mg Tablet] 1 - 2 tab PO Q4HP PRN #20 tab.rapdis PRN Reason: Home Medications: Chlorzoxazone [Parafon Forte Dsc 500 mg Tablet] 500 mg PO BID PRN #20 tablet 06/13/19 Insulin Aspart [Novolog Flexpen] 0 unit SQ .SLIDING SCALE PRN 06/21/19 Insulin Glargine,Hum.rec.anlog [Lantus (Pyxis) Insulin 100 Unit/1 ml 10 ml] 40 units SQ QAM 06/21/19 Amlodipine Besylate [Norvasc 10 mg Tablet] 10 mg PO DAILY 06/27/19 Dicyclomine HCl [Bentyl 10 mg Capsule] 10 mg PO TID 06/27/19 Levetiracetam [Keppra 500 mg Tablet] 500 mg PO Q12 06/27/19 Lisinopril 20 mg PO DAILY 06/27/19 Promethazine HCl [Phenergan 25 mg Tablet] 25 mg PO Q6HP PRN MDD 6 TABS 06/27/19 Acetaminophen [Tylenol 325 mg Tablet] 650 mg PO Q4HP PRN tablet 06/29/19 Atorvastatin Calcium [Lipitor 20 mg Tablet] 20 mg PO QHS #30 tablet 06/29/19 Carvedilol [Coreg 12.5 mg Tablet] 12.5 mg PO Q12 #60 tablet 06/29/19 Lipase/Protease/Amylase [Pancreaze-10 Capsule.] 2 cap PO BIDACBS #180 capsule. 06/29/19 Mag Hydrox/Al Hydrox/Simeth [Maalox Plus Susp 30 Udcup] 30 ml PO Q6HP PRN udc 06/29/19 Nicotine [Nicoderm 14 mg/24 Hr Transdermal Patch] 1 each TD DAILY #30 patch.td24 06/29/19 Omeprazole 20 mg PO BID #60 capsule. 06/29/19 Ondansetron [Zofran Odt 4 mg Tablet] 1 - 2 tab PO Q4HP PRN #20 tab.rapdis 06/29/19 Oxycodone HCl/Acetaminophen [Percocet 5-325 mg Tablet] 1 tab PO Q4HP PRN #12 tab 06/29/19 Sucralfate [Carafate 1 gm Tablet] 1 gm PO Q6 #120 tablet 06/29/19 History of Present Illiness History of Present Illness: JJ HOFFMAN is a 38 year old female, well-known to the hospitalist service, with a past medical history of hypertension, hyperlipidemia, COPD, seizure, uncontrolled diabetes mellitus, chronic pancreatitis GERD, depression, substance abuse, tobacco dependency, and alcohol abuse who presents to the emergency department today with a complaint of epigastric abdominal pain; she has been seen in the emergency department 8 times this month. Evaluation in the emergency department revealed stable vital signs, unremarkable CBC other than her baseline anemia, and chemistry notable for an RONIT (creatinine 3.08/BUN 41; baseline 1.9/22), hypoglycemia, mildly elevated AST, alk phos, and lipase of 622. Urinalysis notable for high protein, glucose, and nitrites. CT ABD/Pelvis on 06/21/19 remarkable only for chronic pancreatitis. She is provided IV fluids, IV Dilaudid, apple juice, and referred to the hospitalist service for admission and management of the above stated complaints and findings. Hospital Course Hospital Course: (1) Acute kidney injury superimposed on CKD Resolved; has returned to her baseline creatinine/BUN. Urine sodium 57, Creatinine 110. FeNA suggests Intrinsic; possibly related to multiple nephrotoxic medications in patient w/ mild dehydration and uncontrolled DM. Low suspicion for postobstructive cause as the patient had CT ABD/Pelvis (06/21/2019) that was negative for renal calculi or hydronephrosis. Patient was admitted to medical floor on continuous cardiac telemetry and provided generous IVF. (2) Chronic pancreatitis Patient has presented to the emergency department 8 times since June 1; [address] ABD/Pelvis (06/21/19) notable only for chronic pancreatitis. Lipase 622-> 333; significantly lower than her average during acute exacerbations. She denies active vomiting; complains of epigastric discomfort anorexia only. Have advanced diet gradually; tolerating well. Started on Pancreaze capsules with meals; prescription provided to continue after discharge. Antiemetics and analgesics as needed. (3) COPD (chronic obstructive pulmonary disease) Stable and without exacerbation at this time. No indications for steroid or antibiotic therapy at this time. (4) Hyperlipidemia Daily statin therapy. (5) Hypertension Improved following adjustments. Continue home dose amlodipine Change po Metoprolol to Carvedilol for increased BP effect Continue home dose lisinopril. (6) Hypoglycemia No further episodes. Likely secondary to poor p.o. intake with continued insulin use. (7) Seizure disorder Continue Keppra twice daily. (8) Uncontrolled diabetes mellitus A1C 9.3% (06/06/19) Continue home medication regiment at discharge. Medication and dietary compliance encouraged. (9) Tobacco dependence Smoking cessation encouraged. Nicotine replacement therapies provided (10) Substance abuse Patient admits to daily marijuana use. Cessation encouraged. (11) Epigastric abdominal pain Resolved; likely related to gastritis/PUD. CT ABD/Pelvis (06/21/19) notable only for chronic pancreatitis. Lipase 622; significantly lower than her average during acute exacerbations. H. Pylori panel pending Patient reports that her symptoms were significantly improved following GI cocktail. Discharged on twice daily omeprazole. Continue Carafate every 6 hrs Maalox as needed. Follow up with Dr. Palomino. Physical Exam Vital Signs: Temp Pulse Resp BP Pulse Ox 98.6 F 86 18 133/77 H 94 06/30/19 00:10 06/30/19 02:00 06/30/19 00:10 06/30/19 00:10 06/30/19 00:10 Intake & Output 06/29/19 06/30/19 07/01/19 06:59 06:59 06:59 Intake Total 1767 2610 Output Total 660 3050 Balance 1107 -440 Weight 58.2 kg 62.1 kg General appearance: PRESENT: no acute distress, well-developed, well-nourished Head exam: PRESENT: atraumatic, normocephalic Eye exam: PRESENT: conjunctiva pink, EOMI, PERRLA. ABSENT: scleral icterus Ear exam: PRESENT: normal external ear exam Mouth exam: PRESENT: moist, tongue midline Neck exam: ABSENT: carotid bruit, JVD, lymphadenopathy, thyromegaly Respiratory exam: PRESENT: clear to auscultation etddy. ABSENT: rales, rhonchi, wheezes Cardiovascular exam: PRESENT: RRR. ABSENT: diastolic murmur, rubs, systolic murmur Pulses: PRESENT: normal dorsalis pedis pul Vascular exam: PRESENT: normal capillary refill GI/Abdominal exam: PRESENT: normal bowel sounds, soft. ABSENT: distended, guarding, mass, organolmegaly, rebound, tenderness Rectal exam: PRESENT: deferred Extremities exam: PRESENT: full ROM. ABSENT: calf tenderness, clubbing, pedal edema Neurological exam: PRESENT: alert, awake, oriented to person, oriented to place, oriented to time, oriented to situation, CN II-XII grossly intact. ABSENT: motor sensory deficit Psychiatric exam: PRESENT: appropriate affect, normal mood. ABSENT: homicidal ideation, suicidal ideation Skin exam: PRESENT: dry, intact, warm. ABSENT: cyanosis, rash Results Laboratory Results: WBC 8.0 10^3/uL (4.0-10.5) 06/28/19 06:37 RBC 3.98 10^6/uL (3.72-5.28) 06/28/19 06:37 Hgb 11.2 g/dL (12.0-15.5) L 06/28/19 06:37 Hct 34.4 % (36.0-47.0) L 06/28/19 06:37 MCV 86 fl (80-97) 06/28/19 06:37 MCH 28.0 pg (27.0-33.4) 06/28/19 06:37 MCHC 32.4 g/dL (32.0-36.0) 06/28/19 06:37 RDW 15.7 % (11.5-14.0) H 06/28/19 06:37 Plt Count 373 10^3/uL (150-450) 06/28/19 06:37 Lymph % (Auto) 37.0 % (13-45) 06/28/19 06:37 Ralls % (Auto) 8.1 % (3-13) 06/28/19 06:37 Eos % (Auto) 1.2 % (0-6) 06/28/19 06:37 Baso % (Auto) 0.8 % (0-2) 06/28/19 06:37 Absolute Neuts (auto) 4.2 10^3/uL (1.7-8.2) 06/28/19 06:37 Absolute Lymphs (auto) 2.9 10^3/uL (0.5-4.7) 06/28/19 06:37 Absolute Monos (auto) 0.6 10^3/uL (0.1-1.4) 06/28/19 06:37 Absolute Eos (auto) 0.1 10^3/uL (0.0-0.6) 06/28/19 06:37 Absolute Basos (auto) 0.1 10^3/uL (0.0-0.2) 06/28/19 06:37 Seg Neutrophils % 52.9 % (42-78) 06/28/19 06:37 Sodium 141.0 mmol/L (137-145) 06/28/19 06:33 Potassium 4.4 mmol/L (3.6-5.0) 06/28/19 06:33 Chloride 111 mmol/L (98-107) H 06/28/19 06:33 Carbon Dioxide 24 mmol/L (22-30) 06/28/19 06:33 Anion Gap 6 (5-19) 06/28/19 06:33 BUN 29 mg/dL (7-20) H 06/28/19 06:33 Creatinine 1.95 mg/dL (0.52-1.25) H 06/28/19 06:33 Est GFR ( Amer) 35 (>60) L 06/28/19 06:33 Est GFR (MDRD) Non-Af 29 (>60) L 06/28/19 06:33 Glucose 184 mg/dL (75-110) H 06/28/19 06:33 POC Glucose 275 mg/dL (70-110) H 06/29/19 15:46 Calcium 9.3 mg/dL (8.4-10.2) 06/28/19 06:33 Total Bilirubin 0.5 mg/dL (0.2-1.3) 06/28/19 06:33 Direct Bilirubin 0.3 mg/dL (0.0-0.4) 06/28/19 06:33 Neonat Total Bilirubin Not Reportable 06/28/19 06:33 Neonat Direct Bilirubin Not Reportable 06/28/19 06:33 Neonat Indirect Bili Not Reportable 06/28/19 06:33 AST 45 U/L (14-36) H 06/28/19 06:33 ALT 28 U/L (<35) 06/28/19 06:33 Alkaline Phosphatase 123 U/L (38-126) 06/28/19 06:33 Total Protein 7.2 g/dL (6.3-8.2) 06/28/19 06:33 Albumin 4.0 g/dL (3.5-5.0) 06/28/19 06:33 Lipase 333.5 U/L (23-300) H 06/28/19 06:33 Urine Color YELLOW 06/27/19 18:00 Urine Appearance CLOUDY 06/27/19 18:00 Urine pH 5.0 (5.0-9.0) 06/27/19 18:00 Ur Specific Graham 1.012 06/27/19 18:00 Urine Protein 100 mg/dL (NEGATIVE) H 06/27/19 18:00 Urine Glucose (UA) >=500 mg/dL (NEGATIVE) H 06/27/19 18:00 Urine Ketones NEGATIVE mg/dL (NEGATIVE) 06/27/19 18:00 Urine Blood NEGATIVE (NEGATIVE) 06/27/19 18:00 Urine Nitrite POSITIVE (NEGATIVE) H 06/27/19 18:00 Urine Bilirubin NEGATIVE (NEGATIVE) 06/27/19 18:00 Urine Urobilinogen NEGATIVE mg/dL (<2.0) 06/27/19 18:00 Ur Leukocyte Esterase NEGATIVE (NEGATIVE) 06/27/19 18:00 Urine WBC (Auto) 6 /HPF 06/27/19 18:00 Urine RBC (Auto) 3 /HPF 06/27/19 18:00 U Hyaline Cast (Auto) 5 /LPF 06/27/19 18:00 Urine Bacteria (Auto) 3+ /HPF 06/27/19 18:00 Squamous Epi Cells Auto 38 /HPF 06/27/19 18:00 Urine Mucus (Auto) RARE /LPF 06/27/19 18:00 Urine Creatinine 110.8 mg/dL (16-327) 06/27/19 19:13 Urine Sodium 57 mmol/L (30-90) 06/27/19 19:13 Urine Ascorbic Acid NEGATIVE (NEGATIVE) 06/27/19 18:00 Serum Alcohol < 10 mg/dL (NONE DETECTED) 06/27/19 14:40 Plan Plan of Treatment: Patient is discharge home in stable condition. She is to follow up with her primary care provider within 1 week. Follow up with Dr. Palomino at the earliest available appointment for further evaluation of chronic pancreatitis and suspected PUD. Take medications as prescribed. Do not smoke, drink alcohol, or use recreational drugs. Return to the emergency department as needed for concerning symptoms. Time Spent: Greater than 30 Minutes Stroke Is this a Stroke Patient?: No Acute Heart Failure - Is this a Heart Failure Patient?: No
[2019-07-03 14:32] LABS: HELICOBACTER PYLORI IGA AB <9.0 units (0.0-8.9); HELICOBACTER PYLORI IGG AB 3.28 (0.00-0.79)
== END 2019-06-30 13:49 | disposition home or self-care (01) | DRG 683 ==
LOC: ER 16:11 → EH 18:29 → 4S 20:52
PROVIDERS: ADMIT Hospitalist; ATTEND Registered Nurse
DX: N17.9 Acute kidney failure, unspecified (principal); K86.0 Alcohol-induced chronic pancreatitis; J44.9 Chronic obstructive pulmonary disease, unspecified; N18.9 Chronic kidney disease, unspecified; E11.649 Type 2 diabetes mellitus with hypoglycemia without coma; E11.22 Type 2 diabetes mellitus with diabetic chronic kidney disease; G40.909 Epilepsy, unspecified, not intractable, without status epilepticus; I12.9 Hypertensive chronic kidney disease with stage 1 through stage 4 chronic kidney disease, or unspecified chronic kidney disease; F12.10 Cannabis abuse, uncomplicated; E11.65 Type 2 diabetes mellitus with hyperglycemia; F10.10 Alcohol abuse, uncomplicated; F17.210 Nicotine dependence, cigarettes, uncomplicated; E78.5 Hyperlipidemia, unspecified; K21.9 Gastro-esophageal reflux disease without esophagitis; F32.9 Major depressive disorder, single episode, unspecified; D64.9 Anemia, unspecified; Z79.4 Long term (current) use of insulin; Z88.5 Allergy status to narcotic agent; Z88.0 Allergy status to penicillin; Z71.6 Tobacco abuse counseling; Z83.3 Family history of diabetes mellitus
CPT/HCPCS: 36415; 80053; 80307; 81001; 82570; 82962; 83690; 84300; 85025; 86677; 87086; 87088; 87186; 99284; 99406; C9113; J0360; J1170; J1644; J1815; J2405; J2550; J3490; J7030

== ENCOUNTER 2019-07-02 06:07 | Emergency (ER) | payer MEDICAID ==
[2019-07-02 06:49] LABS: ABSOLUTE EOSINOPHILS # (AUTO) 0.1 10^3/uL (0.0-0.6); ABSOLUTE LYMPHOCYTES (AUTO) 1.8 10^3/uL (0.5-4.7); ABSOLUTE MONOCYTES (AUTO) 0.5 10^3/uL (0.1-1.4); ABSOLUTE NEUT (AUTO) 5.1 10^3/uL (1.7-8.2); BASOPHILS % (AUTO) 0.5 % (0-2); EOSINOPHILS % (AUTO) 1.7 % (0-6); HEMOGLOBIN 9.6 g/dL (12.0-15.5); LYMPHOCYTES % (AUTO) 23.9 % (13-45); MEAN CORPUSCULAR HEMOGLOBIN 29.2 pg (27.0-33.4); MEAN CORPUSCULAR HGB CONC 34.2 g/dL (32.0-36.0); MEAN CORPUSCULAR VOLUME 85 fl (80-97); MONOCYTES % (AUTO) 6.9 % (3-13); PLATELET COUNT 342 10^3/uL (150-450); RED BLOOD COUNT 3.27 10^6/uL (3.72-5.28); RED CELL DISTRIBUTION WIDTH 15.5 % (11.5-14.0); TOTAL CELLS COUNTED % (AUTO) 100 %; WHITE BLOOD COUNT 7.6 10^3/uL (4.0-10.5)
--- NOTE | 2019-07-02 06:49 | ER Document Report ---
ED GI/ - General Mode of Arrival: Ambulatory Information source: Patient TRAVEL OUTSIDE OF THE [place].S. IN LAST 30 DAYS: No <ALBERTO ORO - Last Filed: 07/02/19 07:17> <DIANNE LEMONS - Last Filed: 07/02/19 08:45> - General Chief Complaint: Abdominal Pain Stated Complaint: ABDOMINAL PAIN Time Seen by Provider: 07/02/19 06:35 Primary Care Provider: RONALD BARKER FNP-C [Primary Care Provider] - Follow up as needed Notes: 38-year-old female presents emergency department complaining of epigastric abdominal pain similar to her prior chronic pancreatitis. She was discharged from the hospital yesterday for pancreatitis. Patient states that this episode has been going for the last 8 hours. Patient reports nausea but denies vomiting or diarrhea, denies fevers. States that the only thing she can tolerate is water, everything else gives her pain and vomiting. Denies urinary frequency or dysuria. Patient writhing around in pain. (ALBERTO ORO) - Related Data Allergies/Adverse Reactions: hydrocodone [From [place]] Allergy (Verified 06/22/19 03:24) morphine Allergy (Verified 06/22/19 03:24) Penicillins Allergy (Verified 06/22/19 03:24) prednisone Allergy (Verified 06/22/19 03:24) Edema Past Medical History - General Information source: Patient - Social History Smoking Status: Current Every Day Smoker Chew tobacco use (# tins/day): No Frequency of alcohol use: None Drug Abuse: Marijuana Family History: Reviewed & Not Pertinent, DM, Hypertension Patient has homicidal ideation: No - Past Medical History Cardiac Medical History: Reports: Hx Hypercholesterolemia, Hx Hypertension Denies: Hx Congestive Heart Failure, Hx Heart Attack Pulmonary Medical History: Reports: Hx COPD Neurological Medical History: Reports: Hx Seizures Endocrine Medical History: Reports: Hx Diabetes Mellitus Type 2 Renal/ Medical History: Reports: Hx Renal Insufficiency GI Medical History: Reports: Hx Gastroesophageal Reflux Disease, Hx Pancreatitis - Chronic Musculoskeletal Medical History: Reports Hx Musculoskeletal Trauma Skin Medical History: Psychiatric Medical History: Reports: Hx Anxiety, Hx Depression Past Surgical History: Reports: Hx Section - x3, Hx Hysterectomy - Immunizations Immunizations up to date: Yes Hx Diphtheria, Pertussis, Tetanus Vaccination: No <ALBERTO ORO - Last Filed: 07/02/19 07:17> Review of Systems - Review of Systems Constitutional: denies: Fever Gastrointestinal: Abdominal pain, Nausea. denies: Diarrhea, Vomiting -: Yes All other systems reviewed and negative <ALBERTO ORO - Last Filed: 07/02/19 07:17> Physical Exam <ALBERTO ORO - Last Filed: 07/02/19 07:17> - Vital signs Vitals: Temp 98.1 F 07/02/19 06:10 - Notes Notes: PHYSICAL EXAMINATION: GENERAL: Well-nourished, writhing around the bed in pain. HEAD: Atraumatic, normocephalic. EYES: Pupils equal round and reactive to light, extraocular movements intact, conjunctiva are normal. ENT: Nares patent, oropharynx clear without exudates. Moist mucous membranes. NECK: Normal range of motion, supple without lymphadenopathy LUNGS: Breath sounds clear to auscultation bilaterally and equal. No wheezes rales or rhonchi. HEART: Regular rate and rhythm without murmurs ABDOMEN: Generalized abdominal tenderness. No guarding, no rebound. No masses appreciated. Female : deferred Musculoskeletal: Normal range of motion, no pitting or edema. No cyanosis. NEUROLOGICAL: Cranial nerves grossly intact. Normal speech. Normal sensory, motor exams PSYCH: Normal mood, normal affect. SKIN: Warm, Dry, normal turgor, no rashes or lesions noted. (ALBERTO ORO) Course - Laboratory Result Diagrams: 07/02/19 06:30 07/02/19 06:30 <ALBERTO ORO - Last Filed: 07/02/19 07:17> - Laboratory Result Diagrams: 07/02/19 06:30 07/02/19 07:39 <DIANNE LEMONS - Last Filed: 07/02/19 08:45> - Re-evaluation Re-evalutation: 07/02/19 07:18 CBC unremarkable. Chemistry has hemolyzed. Lab coming to [facility]raw chemistry. Patient has pain and nausea medication ordered. Handoff given to [facility] Dianne Lemons NP. (ALBERTO ORO) 07/02/19 08:00 Assumed care from Alberto Oro nurse practitioner discussed pending lab results. 07/02/19 08:38 Patient is resting comfortably with decreased pain. Reviewed lab results with patient. BUN and creatinine are close to her normal range. BUN of 28 creatinine 1.9, patient baseline creatinine is 1.9 BUN 22. She has outpatient follow-up this week with Dr. Dunham and her primary care provider, she is to keep her follow-up appointments. Continue with her current home medications. She was given strict return to the emergency room guidelines. She is to return for any new or worsening symptoms. All questions were answered. Patient verbalized understanding agreed to plan of care. 07/02/19 08:41 07/02/19 08:43 (DIANNE LEMONS) - Vital Signs Vital signs: Temp Pulse Resp BP Pulse Ox 98.1 F 10 L 128/72 H 100 07/02/19 06:17 07/02/19 08:01 07/02/19 08:01 07/02/19 08:01 - Laboratory Laboratory results interpreted by me: 07/02/19 07/02/19 06:30 07:39 RBC 3.27 L Hgb 9.6 L Hct 28.0 L RDW 15.5 H BUN 28 H Creatinine 1.90 H Est GFR ( Amer) 36 L Est GFR (MDRD) Non-Af 30 L Discharge <ALBERTO ORO - Last Filed: 07/02/19 07:17> <DIANNE LEMONS - Last Filed: 07/02/19 08:45> - Discharge Clinical Impression: Chronic abdominal pain Condition: Stable Disposition: HOME, SELF-CARE Instructions: Abdominal Pain ([facility]) Additional Instructions: You have been seen in the Emergency Department (ED) for abdominal pain. Your evaluation did not identify a clear cause of your symptoms but was generally reassuring. Please follow up with your doctor as soon as possible regarding today's emergent visit and the symptoms that are bothering you. Return to the ED if your abdominal pain worsens or fails to improve, you develop bloody vomiting, bloody diarrhea, you are unable to tolerate fluids due to vomiting, fever greater than 101, or other symptoms that concern you. Referrals: RONALD BARKER FNP-C [Primary Care Provider] - Follow up as needed
[2019-07-02] MEDS ORDERED: HYDROMORPHONE HCL INJ/PF 2 MG/ML AMPULE IV ONE (06:55)
[2019-07-02] MEDS ORDERED: ONDANSETRON HCL INJ/PF 4 MG/2 ML SDV IV ONE (07:08)
[2019-07-02 08:04] LABS: ALBUMIN 3.7 g/dL (3.5-5.0); ALKALINE PHOSPHATASE 106 U/L (38-126); ANION GAP 7 (5-19); ASPARTATE AMINO TRANSFERASE 20 U/L (14-36); BILIRUBIN,TOTAL 0.3 mg/dL (0.2-1.3); BLOOD UREA NITROGEN 28 mg/dL (7-20); CALCIUM 9.2 mg/dL (8.4-10.2); CARBON DIOXIDE 26 mmol/L (22-30); CHLORIDE 106 mmol/L (98-107); GLUCOSE 109 mg/dL (75-110); TOTAL PROTEIN 6.7 g/dL (6.3-8.2)
[2019-07-02 08:24] VITALS: BP 128/72
== END 2019-07-02 08:51 | disposition home or self-care (01) ==
LOC: ER 06:07
DX: R10.9 Unspecified abdominal pain (principal); G89.29 Other chronic pain; R10.13 Epigastric pain; R11.0 Nausea; Z88.0 Allergy status to penicillin; Z88.8 Allergy status to other drugs, medicaments and biological substances; F17.200 Nicotine dependence, unspecified, uncomplicated; I10 Essential (primary) hypertension; J44.9 Chronic obstructive pulmonary disease, unspecified; E11.9 Type 2 diabetes mellitus without complications
CPT/HCPCS: 99284; 96374; 96375; 36415; 83690; 84703; 85025; 80053; J1170; J2405

== ENCOUNTER 2019-07-03 05:23 | Emergency (ER) | payer MEDICAID ==
[2019-07-03] MEDS ORDERED: DEXTROSE 5%-WATER 1000 ML 1,000 ML IV ONE (06:34)
--- NOTE | 2019-07-03 06:37 | ER Document Report ---
ED General - General Chief Complaint: Abdominal Pain Stated Complaint: ABDOMINAL PAIN Time Seen by Provider: 07/03/19 06:10 Primary Care Provider: RONALD BARKER FNP-C [Primary Care Provider] - Follow up as needed Notes: 38-year-old female with a long history of chronic pancreatitis, weight loss malnutrition type 1 diabetes, Ms. education on insulin and multiple admits for p.o. intolerance and hypoglycemia in the setting of ongoing insulin use with concurrent decreased p.o. more episode for her without any differences from her baseline. No fever no diarrhea. The patient has NO history of travel to high- risk locations for COVID-19 or contact with persons under investigation for or confirmed positive for COVID-19. TRAVEL OUTSIDE OF THE [place] IN LAST 30 DAYS: No - Related Data Allergies/Adverse Reactions: hydrocodone [From [place]] Allergy (Verified 06/22/19 03:24) morphine Allergy (Verified 06/22/19 03:24) Penicillins Allergy (Verified 06/22/19 03:24) prednisone Allergy (Verified 06/22/19 03:24) Edema Past Medical History - General Information source: Patient - Social History Smoking Status: Unknown if Ever Smoked Drug Abuse: Marijuana Family History: Reviewed & Not Pertinent, DM, Hypertension Patient has homicidal ideation: No - Past Medical History Cardiac Medical History: Reports: Hx Hypercholesterolemia, Hx Hypertension Denies: Hx Congestive Heart Failure, Hx Heart Attack Pulmonary Medical History: Reports: Hx COPD Neurological Medical History: Reports: Hx Seizures Endocrine Medical History: Reports: Hx Diabetes Mellitus Type 2 Renal/ Medical History: Reports: Hx Renal Insufficiency GI Medical History: Reports: Hx Gastroesophageal Reflux Disease, Hx Pancreatitis - Chronic Musculoskeletal Medical History: Reports Hx Musculoskeletal Trauma Skin Medical History: Psychiatric Medical History: Reports: Hx Anxiety, Hx Depression Past Surgical History: Reports: Hx Section - x3, Hx Hysterectomy - Immunizations Immunizations up to date: Yes Hx Diphtheria, Pertussis, Tetanus Vaccination: No Review of Systems - Review of Systems Notes: REVIEW OF SYSTEMS GEN: Weakness decreased p.o. intake ENT: Denies sore throat, nasal discharge, ear pain EYES: Denies blurry vision, eye pain, discharge CV: Denies chest pain, palpitations, edema RESP: Denies cough, shortness of breath, wheezing GI: Abdominal pain and nausea MSK: Denies joint pain/swelling, edema, SKIN: Denies rash, skin lesions LYMPH: Denies swollen glands/lymph nodes NEURO: Denies headache, focal weakness or numbness, dizziness PSYCH: Denies depression, suicidal or homicidal ideation PHYSICAL EXAMINATION General: Very thin and chronically ill-appearing Head: Atraumatic, normocephalic ENT: Mouth normal, oropharynx moist, no exudates or tonsillar enlargement Eyes: Conjunctiva normal, pupils equal, lids normal Neck: No JVD, supple, no guarding CVS: Normal rate, regular rhythm, no murmurs Resp: No resp distress, equal and normal breath sounds bilaterally GI: Nondistended, soft, no tenderness to palpation, no rebound or guarding Ext: No deformities, no edema, normal range of motion in upper and lower ext Back: No CVA or midline TTP Skin: No rash, warm Lymphatic: No lymphadeopathy noted Neuro: Awake, alert. Face symmetric. GCS 15. Physical Exam - Vital signs Vitals: Temp Pulse Resp BP Pulse Ox 98.3 F 92 20 141/83 H 100 07/03/19 05:33 07/03/19 05:33 07/03/19 05:33 07/03/19 05:33 07/03/19 05:33 Course - Re-evaluation Re-evalutation: 07/03/19 06:36 Malnourished dehydrated hyperglycemic patient presents with same. History of acute/chronic pancreatitis, and has not been educated to not use insulin when she is not eating. She is still using insulin. She looks dry. We will give her D5 to maintain her sugars for now, check basic labs, been going to treat her recurrent nausea vomiting, especially now that it is chronic as well as concurrent marijuana use, with Haldol and Benadryl. 07/03/19 08:41 Patient's labs are as expected although not hypoglycemic anymore. She has a slight elevation in her creatinine consistent with a mild prerenal RONIT. She has mild hyperkalemia.. Given her clinical stability component of chronic disease I think it is reasonable to hydrate her both IV and oral here in the ED after appropriate medication p.o. challenge her and send her home if possible. Patient was kept in the emergency department was able to tolerate p.o. had much improved symptoms and was stable for discharge. I have discussed with the patient there likely diagnosis, aftercare plan, follow-up plans and my usual and customary return precautions. They verbalized understanding of this. 07/08/19 05:45 - Vital Signs Vital signs: Temp Pulse Resp BP Pulse Ox 98.3 F 90 18 156/96 H 99 07/03/19 09:09 07/03/19 09:09 07/03/19 09:09 07/03/19 09:09 07/03/19 09:09 - Laboratory Result Diagrams: 07/03/19 06:41 07/03/19 06:41 Laboratory results interpreted by me: 07/03/19 07/03/19 07/03/19 06:05 06:41 06:41 RBC 3.36 L Hgb 10.0 L Hct 28.9 L RDW 15.2 H Potassium 5.2 H D BUN 24 H Creatinine 2.02 H Est GFR ( Amer) 33 L Est GFR (MDRD) Non-Af 28 L POC Glucose 52 L 07/03/19 07/03/19 07:11 07:20 RBC Hgb Hct RDW Potassium BUN Creatinine Est GFR ( Amer) Est GFR (MDRD) Non-Af POC Glucose 190 H 219 H Procedures - Additional Procedures IV insertion Time performed: 06:35 Additional Procedures: IV insertion - Ultrasound-guided deep brachial, right sided sterile technique used Flushing flash Extra long 20-gauge catheter placed. Reason: Nurse inability and history of "bad stick" Discharge - Discharge Clinical Impression: Chronic abdominal pain Condition: Good Disposition: HOME, SELF-CARE Instructions: Abdominal Pain ([facility]), Antinausea Medication ([facility]) Additional Instructions: If you are unable to eat please do not take your insulin. It is safer for your blood sugar to be high for a few days and have you talk with your doctor about adjusting your insulin then it is to take it anyway even though you are not eating and drop your sugar too low. Prescriptions: Promethazine HCl [Phenergan 25 mg Supp.rect] 1 supp ME Q6H #12 supp.rect Referrals: RONALD BARKER FNP-C [Primary Care Provider] - Follow up as needed
[2019-07-03] MEDS ORDERED: RINGERS SOLUTION,LACTATED 1,000 ML IV ONE (06:49)
[2019-07-03 07:11] LABS: ABSOLUTE EOSINOPHILS # (AUTO) 0.1 10^3/uL (0.0-0.6); ABSOLUTE LYMPHOCYTES (AUTO) 2.1 10^3/uL (0.5-4.7); ABSOLUTE MONOCYTES (AUTO) 0.5 10^3/uL (0.1-1.4); ABSOLUTE NEUT (AUTO) 4.8 10^3/uL (1.7-8.2); BASOPHILS % (AUTO) 0.6 % (0-2); EOSINOPHILS % (AUTO) 1.6 % (0-6); HEMATOCRIT 28.9 % (36.0-47.0); LYMPHOCYTES % (AUTO) 27.6 % (13-45); MEAN CORPUSCULAR HEMOGLOBIN 29.6 pg (27.0-33.4); MEAN CORPUSCULAR HGB CONC 34.5 g/dL (32.0-36.0); MEAN CORPUSCULAR VOLUME 86 fl (80-97); MONOCYTES % (AUTO) 6.6 % (3-13); PLATELET COUNT 337 10^3/uL (150-450); RED BLOOD COUNT 3.36 10^6/uL (3.72-5.28); RED CELL DISTRIBUTION WIDTH 15.2 % (11.5-14.0); SEGMENTED NEUTROPHILS % (AUTO) 63.6 % (42-78); TOTAL CELLS COUNTED % (AUTO) 100 %; WHITE BLOOD COUNT 7.5 10^3/uL (4.0-10.5)
[2019-07-03 07:42] LABS: ALBUMIN 3.8 g/dL (3.5-5.0); ALKALINE PHOSPHATASE 113 U/L (38-126); ANION GAP 5 (5-19); ASPARTATE AMINO TRANSFERASE 25 U/L (14-36); BILIRUBIN,TOTAL 0.2 mg/dL (0.2-1.3); BLOOD UREA NITROGEN 24 mg/dL (7-20); CALCIUM 9.3 mg/dL (8.4-10.2); CARBON DIOXIDE 30 mmol/L (22-30); CHLORIDE 107 mmol/L (98-107); GLUCOSE 104 mg/dL (75-110); TOTAL PROTEIN 6.7 g/dL (6.3-8.2)
[2019-07-03 07:57] LABS: POTASSIUM 5.2 mmol/L (3.6-5.0)
[2019-07-03] MEDS ORDERED: KETOROLAC TROMETHAMINE INJ/PF 30 MG/1 ML SDV IV ONE (08:51)
[2019-07-03] MEDS ORDERED: DIPHENHYDRAMINE HCL 50 MG/ML VIAL IV ONE (08:51)
[2019-07-03] MEDS ORDERED: METOCLOPRAMIDE HCL INJ/PF 10 MG/2 ML SDV IV ONE (08:51)
[2019-07-03 09:35] VITALS: BP 156/96
== END 2019-07-03 09:34 | disposition home or self-care (01) ==
LOC: ER 05:23
DX: R10.9 Unspecified abdominal pain (principal); G89.29 Other chronic pain; E10.9 Type 1 diabetes mellitus without complications; Z79.4 Long term (current) use of insulin; R63.0 Anorexia; Z88.0 Allergy status to penicillin; Z88.8 Allergy status to other drugs, medicaments and biological substances
CPT/HCPCS: 99284; 96361; 96374; 96375; 36415; 82962; 83690; 85025; 80053; 36140; J1200; J1885; J2765; J7120

== ENCOUNTER 2019-07-05 19:38 | Emergency (ER) | payer MEDICAID | END 2019-07-05 20:09 | disposition left against medical advice (07) | LOC: ER 19:38 | DX: Z53.21 Procedure and treatment not carried out due to patient leaving prior to being seen by health care provider (principal) ==

== ENCOUNTER 2019-07-07 06:11 | Emergency (ER) | payer MEDICAID ==
[2019-07-07] MEDS ORDERED: PROMETHAZINE HCL INJ 25 MG/1 ML VIAL IM ONE (07:54)
[2019-07-07] MEDS ORDERED: HYDROMORPHONE HCL INJ/PF 2 MG/ML AMPULE IM ONE (08:28)
[2019-07-07 08:43] LABS: ABSOLUTE BASOPHILS # (AUTO) 0.1 10^3/uL (0.0-0.2); ABSOLUTE LYMPHOCYTES (AUTO) 1.8 10^3/uL (0.5-4.7); ABSOLUTE MONOCYTES (AUTO) 0.3 10^3/uL (0.1-1.4); ABSOLUTE NEUT (AUTO) 5.6 10^3/uL (1.7-8.2); BASOPHILS % (AUTO) 0.8 % (0-2); EOSINOPHILS % (AUTO) 0.6 % (0-6); HEMATOCRIT 42.4 % (36.0-47.0); HEMOGLOBIN 14.1 g/dL (12.0-15.5); LYMPHOCYTES % (AUTO) 22.7 % (13-45); MEAN CORPUSCULAR HEMOGLOBIN 28.5 pg (27.0-33.4); MEAN CORPUSCULAR HGB CONC 33.3 g/dL (32.0-36.0); MEAN CORPUSCULAR VOLUME 86 fl (80-97); MONOCYTES % (AUTO) 4.2 % (3-13); PLATELET COUNT 380 10^3/uL (150-450); RED BLOOD COUNT 4.94 10^6/uL (3.72-5.28); RED CELL DISTRIBUTION WIDTH 15.7 % (11.5-14.0); SEGMENTED NEUTROPHILS % (AUTO) 71.7 % (42-78); TOTAL CELLS COUNTED % (AUTO) 100 %; WHITE BLOOD COUNT 7.8 10^3/uL (4.0-10.5)
[2019-07-07 09:03] LABS: ALBUMIN 5.5 g/dL (3.5-5.0); ALKALINE PHOSPHATASE 202 U/L (38-126); ANION GAP 13 (5-19); ASPARTATE AMINO TRANSFERASE 26 U/L (14-36); BILIRUBIN,DIRECT 0.2 mg/dL (0.0-0.4); BILIRUBIN,TOTAL 0.5 mg/dL (0.2-1.3); BLOOD UREA NITROGEN 27 mg/dL (7-20); CARBON DIOXIDE 27 mmol/L (22-30); CHLORIDE 99 mmol/L (98-107); GLUCOSE 129 mg/dL (75-110); POTASSIUM 5.3 mmol/L (3.6-5.0); TOTAL PROTEIN 9.9 g/dL (6.3-8.2)
[2019-07-07 09:04] LABS: APPEARANCE,URINE CLEAR; BILIRUBIN,URINE NEGATIVE (NEGATIVE); COLOR,URINE STRAW; GLUCOSE, URINE >=500 mg/dL (NEGATIVE); KETONES,URINE NEGATIVE (NEGATIVE); LEUKOCYTE ESTERASE,URINE NEGATIVE (NEGATIVE); NITRITE,URINE NEGATIVE (NEGATIVE); PROTEIN,URINE 100 mg/dL (NEGATIVE); UROBILINOGEN,URINE NEGATIVE mg/dL (<2.0)
[2019-07-07 09:21] LABS: URINE AMPHETAMINES SCREEN NEGATIVE; URINE BARBITURATES SCREEN NEGATIVE; URINE BENZODIAZEPINES SCREEN NEGATIVE; URINE COCAINE SCREEN NEGATIVE; URINE METHADONE SCREEN NEGATIVE; URINE PHENCYCLIDINE SCREEN NEGATIVE
[2019-07-07 09:22] LABS: URINE MARIJUANA (THC) SCREEN UNCONFIRMED POSITIVE
--- NOTE | 2019-07-07 09:59 | ER Document Report ---
ED General - General Chief Complaint: Abdominal Pain Stated Complaint: ABDOMINAL PAIN Time Seen by Provider: 07/07/19 07:54 Primary Care Provider: RONALD BARKER FNP-C [Primary Care Provider] - Follow up as needed TRAVEL OUTSIDE OF THE [place] IN LAST 30 DAYS: No - HPI Notes: Chief complaint: Abdominal pain and vomiting HPI: 38-year-old female with longstanding history of chronic pancreatitis and diabetes mellitus with frequent ED visits comes back in again today with similar complaints. Complains of epigastric burning and pain. No fever. No dysuria. - Related Data Allergies/Adverse Reactions: hydrocodone [From [place]] Allergy (Verified 06/22/19 03:24) morphine Allergy (Verified 06/22/19 03:24) Penicillins Allergy (Verified 06/22/19 03:24) prednisone Allergy (Verified 06/22/19 03:24) Edema Home Medications: lisinopril, amilodipine, metoprolol, lantus, novalog Past Medical History - General Information source: Patient, [facility] Records - Social History Smoking Status: Current Every Day Smoker Family History: Reviewed & Not Pertinent, DM, Hypertension Patient has homicidal ideation: No - Past Medical History Cardiac Medical History: Reports: Hx Hypercholesterolemia, Hx Hypertension Denies: Hx Congestive Heart Failure, Hx Heart Attack Pulmonary Medical History: Reports: Hx COPD Neurological Medical History: Reports: Hx Seizures Endocrine Medical History: Reports: Hx Diabetes Mellitus Type 2 Renal/ Medical History: Reports: Hx Renal Insufficiency GI Medical History: Reports: Hx Gastroesophageal Reflux Disease, Hx Pancreatitis - Chronic Musculoskeletal Medical History: Reports Hx Musculoskeletal Trauma Skin Medical History: Psychiatric Medical History: Reports: Hx Anxiety, Hx Depression Past Surgical History: Reports: Hx Section - x3, Hx Hysterectomy - Immunizations Immunizations up to date: Yes Hx Diphtheria, Pertussis, Tetanus Vaccination: No Review of Systems - Review of Systems Notes: Constitutional: Negative for fever. HENT: Negative for sore throat. Eyes: Negative for visual changes. Cardiovascular: Negative for chest pain. Respiratory: Negative for shortness of breath. Gastrointestinal: As per HPI. Genitourinary: Negative for dysuria. Musculoskeletal: Negative for back pain. Skin: Negative for rash. Neurological: Negative for headaches, weakness or numbness. 10 point ROS negative except as marked above and in HPI. Physical Exam - Vital signs Vitals: Temp Pulse Resp BP Pulse Ox 98.6 F 92 18 134/99 H 99 07/07/19 06:17 07/07/19 06:17 07/07/19 06:17 07/07/19 06:17 07/07/19 06:17 - Notes Notes: GENERAL: Slender, chronically ill-appearing female approximately stated age who is writhing and vomiting when I initially entered the room. SKIN: Good turgor no rashes. HEAD: Normocephalic atraumatic. EYES: PERRLA. EOMI. Conjunctivae and sclerae clear. EARS: CANALS AND TMS CLEAR. NOSE: CLEAR. MOUTH: Moist mucosa. Good dentition. No stridor or edema. No drooling. NECK: Supple. No masses or thyromegaly. No adenopathy. Carotids 2+ without bruits. No JVD. BACK: Symmetrical without tenderness. CHEST: Respirations unlabored. Breath sounds clear and symmetrical. HEART: Regular rhythm. No murmur gallop or rub. ABDOMEN: Mild epigastric tenderness. Bowel sounds hyperactive. No masses organomegaly. No bruits. GENITALIA: Deferred. EXTREMITIES: No edema. No calf tenderness. Cap refill less than 1.5 seconds. Dorsalis pedis and posterior tibial pulses 3+ and symmetrical. NEUROLOGICAL: GCS 15. Alert and oriented x3. Fluent speech. Cranial nerves II through XII intact. Sensorimotor and cerebellar normal. Normal tone. PSYCHIATRIC: Appropriate affect. Course - Re-evaluation Re-evalutation: 07/07/19 09:58 We always have difficult IV access on this patient. I gave her Phenergan 25 IM and Dilaudid 0.5 IM on arrival. We subsequently got a peripheral IV and she received some normal saline. Labs have been reviewed and she does not have any elevation of her white count or lipase today her blood sugar is within normal range. No other substantial abnormalities. Her urine was positive for THC. Her urinalysis is otherwise unremarkable. I think patient is able to be discharge with outpatient follow-up by PMD. - Vital Signs Vital signs: Temp Pulse Resp BP Pulse Ox 98.6 F 92 18 184/110 H 99 07/07/19 06:18 07/07/19 06:17 07/07/19 06:17 07/07/19 08:42 07/07/19 09:01 - Laboratory Result Diagrams: 07/07/19 08:13 07/07/19 08:13 Laboratory results interpreted by me: 07/07/19 07/07/19 07/07/19 08:13 08:13 08:37 RDW 15.7 H Potassium 5.3 H BUN 27 H Creatinine 2.07 H Est GFR ( Amer) 32 L Est GFR (MDRD) Non-Af 27 L Glucose 129 H Calcium 11.0 H Alkaline Phosphatase 202 H Total Protein 9.9 H Albumin 5.5 H Urine Protein 100 H Urine Glucose (UA) >=500 H Discharge - Discharge Clinical Impression: Chronic pancreatitis Qualifiers: Pancreatitis type: alcohol induced Qualified Code(s): K86.0 - Alcohol-induced chronic pancreatitis Disposition: HOME, SELF-CARE Additional Instructions: Pancreatitis Pancreatitis is an inflammation of the pancreas, an organ at the back of your abdomen. The pancreas produces insulin and enzymes that digest your food. Pancreatitis can be caused by gallstones in the bile duct, by alcohol or viruses, or by excess fat or calcium in the blood stream. Occasionally, pancreatitis occurs when a stomach ulcer augustine through into the pancreas. We try to find the cause of pancreatitis, but some tests can't be done until the pancreas heals. The usual symptoms of pancreatitis are pain in the pit of the stomach that goes straight through to the back, vomiting, and low-grade fever. Severe cases require hospital admission, but many patients with mild pancreatitis do well at home. You will probably need medicine for pain and for vomiting. Sometimes we prescribe medicine to decrease stomach acid secretion and to decrease flow of pancreatic juices. Start with a diet of clear liquids (soda pop, juices). When the pain is decreasing, you can add some simple starches (potato, toast, applesauce). Avoid proteins and fats until you are completely painfree. When you're better, your doctor may suggest treatment to prevent future pancreatitis (such as gallbladder removal). Avoid alcohol forever. Get immediate treatment for any future episodes. Contact your doctor at once or return here if you have increasing pain, shortness of breath, general swelling, increasing size of the abdomen, continued vomiting, muscle spasms, or other new symptoms. Take prescribed medications. Follow-up with your primary care physician. Return here as needed. Prescriptions: Pantoprazole Sodium [Protonix [address] Tablet] 40 mg PO NOW 30 Days #30 tablet.dr Ondansetron [Zofran Odt 4 mg Tablet] 1 - 2 tab PO Q4H PRN #15 tab.rapdis PRN Reason: For Nausea/Vomiting Referrals: RONALD BARKER FNP-C [Primary Care Provider] - Follow up as needed
[2019-07-07 11:20] VITALS: BP 130/86
== END 2019-07-07 11:19 | disposition home or self-care (01) ==
LOC: ER 06:11
DX: K86.0 Alcohol-induced chronic pancreatitis (principal); R10.13 Epigastric pain; R11.10 Vomiting, unspecified; F17.200 Nicotine dependence, unspecified, uncomplicated; E78.00 Pure hypercholesterolemia, unspecified; I10 Essential (primary) hypertension; E11.9 Type 2 diabetes mellitus without complications; Z88.6 Allergy status to analgesic agent; Z88.0 Allergy status to penicillin; Z90.710 Acquired absence of both cervix and uterus
CPT/HCPCS: 99284; 96372; 51701; 36415; 83690; 85025; 81025; 80053; 81001; 80307; J1170; J2550

== ENCOUNTER 2019-07-08 17:35 | Emergency (ER) | payer MEDICAID ==
--- NOTE | 2019-07-08 18:53 | ER Document Report ---
ED Medical Screen (RME) - General Chief Complaint: Abdominal Pain Stated Complaint: ABDOMINAL PAIN Time Seen by Provider: 07/08/19 18:37 Primary Care Provider: RONALD BARKER FNP-C [Primary Care Provider] - Follow up as needed Notes: 38 y/o female presenting with severe abdominal pain. Has been present for 2 weeks. Was admitted for pancreatitis and discharged 3 days later. States she was in the ER yesterday, told she has pancreatitis and was discharged with zofran. Is writhing in pain. States she has a hx of diabetes (says type 1 and type 2). Smokes cigarettes, uses marijuana. Denies alcohol or additional recreational drug use. I have greeted and performed a rapid initial assessment of this patient. A comprehesive ED assessment and evaluation of this patient, analysis of test results and completion of the medical decision-making process will be conducted by additional ED providers. TRAVEL OUTSIDE OF THE [place] IN LAST 30 DAYS: No - Related Data Allergies/Adverse Reactions: hydrocodone [From [place]] Allergy (Verified 06/22/19 03:24) morphine Allergy (Verified 06/22/19 03:24) Penicillins Allergy (Verified 06/22/19 03:24) prednisone Allergy (Verified 06/22/19 03:24) Edema Past Medical History - Social History Family history: None - Past Medical History Cardiac Medical History: Reports: Hx Hypercholesterolemia, Hx Hypertension Denies: Hx Congestive Heart Failure, Hx Heart Attack Pulmonary Medical History: Reports: Hx COPD Neurological Medical History: Reports: Hx Seizures Endocrine Medical History: Reports: Hx Diabetes Mellitus Type 2 Renal/ Medical History: Reports: Hx Renal Insufficiency GI Medical History: Reports: Hx Gastroesophageal Reflux Disease, Hx Pancreatitis - Chronic Musculoskeltal Medical History: Reports Hx Musculoskeletal Trauma Skin Medical History: Psychiatric Medical History: Reports: Hx Anxiety, Hx Depression Past Surgical History: Reports: Hx Section - x3, Hx Hysterectomy - Immunizations Immunizations up to date: Yes Hx Diphtheria, Pertussis, Tetanus Vaccination: No Physical Exam - Vital signs Vitals: Resp 28 H 07/08/19 17:38 - Abdominal Distension: No distension Tenderness: Tender - limited due to patients pain Course - Vital Signs Vital signs: Temp Pulse Resp BP Pulse Ox 98.7 F 98 18 209/140 H 92 07/08/19 17:47 07/08/19 17:47 07/08/19 18:01 07/08/19 18:01 07/08/19 18:01 Doctor's Discharge - Discharge Referrals: RONALD BARKER, [facility] [Primary Care Provider] - Follow up as needed
[2019-07-08] MEDS ORDERED: NORMAL SALINE 1000 ML 1,000 ML IV ONE (19:21)
[2019-07-08] MEDS ORDERED: HYDROMORPHONE HCL INJ/PF 2 MG/ML AMPULE IV ONE ×2 (19:22→23:31)
[2019-07-08] MEDS ORDERED: ONDANSETRON HCL INJ/PF 4 MG/2 ML SDV IV ONE (19:22)
[2019-07-08 19:42] LABS: ABSOLUTE BASOPHILS # (AUTO) 0.1 10^3/uL (0.0-0.2); ABSOLUTE EOSINOPHILS # (AUTO) 0.1 10^3/uL (0.0-0.6); ABSOLUTE LYMPHOCYTES (AUTO) 1.6 10^3/uL (0.5-4.7); ABSOLUTE MONOCYTES (AUTO) 0.4 10^3/uL (0.1-1.4); ABSOLUTE NEUT (AUTO) 3.9 10^3/uL (1.7-8.2); EOSINOPHILS % (AUTO) 1.1 % (0-6); HEMATOCRIT 34.3 % (36.0-47.0); MEAN CORPUSCULAR HEMOGLOBIN 28.8 pg (27.0-33.4); MEAN CORPUSCULAR HGB CONC 33.6 g/dL (32.0-36.0); MEAN CORPUSCULAR VOLUME 86 fl (80-97); MONOCYTES % (AUTO) 6.8 % (3-13); PLATELET COUNT 391 10^3/uL (150-450); RED BLOOD COUNT 4.01 10^6/uL (3.72-5.28); SEGMENTED NEUTROPHILS % (AUTO) 64.1 % (42-78); TOTAL CELLS COUNTED % (AUTO) 100 %
--- NOTE | 2019-07-08 19:44 | ER Document Report ---
ED General - General Chief Complaint: Abdominal Pain Stated Complaint: ABDOMINAL PAIN Time Seen by Provider: 07/08/19 18:37 Primary Care Provider: RONALD BARKER FNP-C [Primary Care Provider] - Follow up as needed Notes: 38-year-old female with a history of chronic pancreatitis presents the emergency department initially stating that she has been having abdominal pain nonstop for the past week. Patient then states that she was actually in the hospital for this recently and the pain went away when they gave her Dilaudid and Phenergan but then it came back. Patient states that this episode started again about 3 days ago after she was discharged. Patient states that the pain is epigastric and cramping, gets worse anytime she eats or drinks anything. States all she has been drinking is water. She admits nausea and vomiting, denies diarrhea, denies fevers or chills. States she used to drink alcohol heavily but she stopped 12 years ago. Denies drinking any alcohol recently. States she has tried smoking marijuana to see if it would improve but it has not helped. Patient has been asked to follow-up with Dr. Dunham as an outpatient for further work-up for possible peptic ulcer disease. States that she was prescribed Prilosec by the inpatient team and just got that filled today. Has not been able to arrange a follow-up appointment with Dr. Dunham as of yet. TRAVEL OUTSIDE OF THE [place] IN LAST 30 DAYS: No - Related Data Allergies/Adverse Reactions: hydrocodone [From [place]] Allergy (Verified 06/22/19 03:24) morphine Allergy (Verified 06/22/19 03:24) Penicillins Allergy (Verified 06/22/19 03:24) prednisone Allergy (Verified 06/22/19 03:24) Edema Past Medical History - General Information source: Patient - Social History Smoking Status: Current Every Day Smoker Frequency of alcohol use: None - Quit smoking 12 years ago Drug Abuse: Marijuana Family History: DM, Hypertension Patient has homicidal ideation: No - Past Medical History Cardiac Medical History: Reports: Hx Hypercholesterolemia, Hx Hypertension Denies: Hx Congestive Heart Failure, Hx Heart Attack Pulmonary Medical History: Reports: Hx COPD Neurological Medical History: Reports: Hx Seizures Endocrine Medical History: Reports: Hx Diabetes Mellitus Type 2 Renal/ Medical History: Reports: Hx Renal Insufficiency GI Medical History: Reports: Hx Gastroesophageal Reflux Disease, Hx Pancreatitis - Chronic Musculoskeletal Medical History: Reports Hx Musculoskeletal Trauma Skin Medical History: Psychiatric Medical History: Reports: Hx Anxiety, Hx Depression Past Surgical History: Reports: Hx Section - x3, Hx Hysterectomy - Immunizations Immunizations up to date: Yes Hx Diphtheria, Pertussis, Tetanus Vaccination: No Review of Systems - Review of Systems Constitutional: No symptoms reported EENT: No symptoms reported Gastrointestinal: See HPI -: Yes All other systems reviewed and negative Physical Exam - Vital signs Vitals: Resp 28 H 07/08/19 17:38 Interpretation: Hypertensive, Tachycardic - Notes Notes: GENERAL: Sitting up in bed, holding her stomach and screaming. Appears acutely uncomfortable. HEAD: Normocephalic, atraumatic EYES: Pupils equal, round and reactive to light, extraocular movements intact. ENT: Oral mucosa moist, tongue midline. NECK: Full range of motion, supple, trachea midline. LUNGS: Clear to auscultation bilaterally, no wheezes, rales or rhonchi, no respiratory distress. HEART: Regular rate and rhythm, no murmurs, gallops, rubs. ABDOMEN: Soft, epigastric tenderness palpation as well as right and left upper quadrant tenderness palpation, there is voluntary guarding, no there is no rebounding and there is no rigidity, nondistended, bowel sounds present in all 4 quadrants. EXTREMITIES: Moves all 4 extremities spontaneously, no edema, radial and dorsalis pedis pulses 2/4 bilaterally. No cyanosis. NEUROLOGICAL: Alert and oriented x3, normal speech. SKIN: Warm, Dry, normal turgor. Course - Re-evaluation Re-evalutation: 07/08/19 22:38 CBC does not show any leukocytosis, CMP shows slightly low sodium at 136.5, BUN is elevated at 37, this is increased compared to yesterday, creatinine has also increased from 2.07 up to 2.45. Alkaline phosphatase mildly elevated, otherwise LFTs and bilirubin are unremarkable, lipase normal at 221, test is negative. 07/08/19 22:40 Discussed with patient that I am concerned about her worsening renal function. Discussed with her the importance of following up with nephrology as an outpatient. During her last hospitalization they did feel that this may be intrinsic and related to nephrotoxic medications as well as mild dehydration. Patient is encouraged to follow-up with nephrology as an outpatient. Contact information has been given for Dr. Sheth and Dr. Mustafa. Patient was also aggressively hydrated here. Patient is encouraged to continue using Prilosec that she just got filled today and follow-up with Dr. Dunham as an outpatient. - Vital Signs Vital signs: Temp Pulse Resp BP Pulse Ox 98.7 F 98 14 184/140 H 92 07/08/19 17:47 07/08/19 17:47 07/08/19 20:00 07/08/19 19:01 07/08/19 18:01 - Laboratory Result Diagrams: 07/08/19 19:24 07/08/19 19:24 Laboratory results interpreted by me: 07/08/19 07/08/19 19:24 19:24 Hgb 11.5 L D Hct 34.3 L RDW 15.0 H Sodium 136.5 L BUN 37 H Creatinine 2.45 H Est GFR ( Amer) 27 L Est GFR (MDRD) Non-Af 22 L Glucose 251 H Alkaline Phosphatase 142 H Discharge - Discharge Clinical Impression: Epigastric abdominal pain, History of peptic ulcer disease, Acute kidney injury superimposed on CKD Condition: Stable Disposition: HOME, SELF-CARE Additional Instructions: It is very important that you follow-up with nephrology and gastroenterology as an outpatient. Gastroenterology is Dr. Dunham specialty, he may be able to help you figure out why you keep having abdominal pain and what we can do to stop it. While you are waiting to see him please make sure that you are taking the Prilo sec. If after 4 days you are not having any relief from the Prilosec please start taking the Carafate. The Carafate is to be taken 1 tablet 1 hour prior to meals and 1 hour prior to bed. Please make sure you take all of your other medications at least 1 hour before you take the Carafate. This is a medication that will coat your stomach and help to decrease any pain that might be coming from ulcers or irritation. Please also make a follow-up appointment with either Dr. Anguiano or Dr. Mustafa. They are both local nephrologists. You need to see them to keep track of your kidney function and work with them to see if you can figure out what is causing your kidney function to be decreased and how we can best care for your kidneys. Please drink plenty of fluids, do not drink any alcohol, and follow a bland diet that does not have large amounts of fat or grease in it. All of this can make your pancreatitis worse. Prescriptions: Sucralfate [Carafate 1 gm Tablet] 1 gm PO ACHS #120 tablet Referrals: RONALD BARKER FNP-C [Primary Care Provider] - Follow up as needed
[2019-07-08 19:46] LABS: HEMOGLOBIN 11.5 g/dL (12.0-15.5)
[2019-07-08 19:59] LABS: ALBUMIN 4.4 g/dL (3.5-5.0); ALKALINE PHOSPHATASE 142 U/L (38-126); ANION GAP 10 (5-19); ASPARTATE AMINO TRANSFERASE 28 U/L (14-36); BILIRUBIN,DIRECT 0.3 mg/dL (0.0-0.4); BILIRUBIN,TOTAL 0.7 mg/dL (0.2-1.3); BLOOD UREA NITROGEN 37 mg/dL (7-20); CALCIUM 9.6 mg/dL (8.4-10.2); CARBON DIOXIDE 29 mmol/L (22-30); CHLORIDE 98 mmol/L (98-107); GLUCOSE 251 mg/dL (75-110); POTASSIUM 4.5 mmol/L (3.6-5.0); TOTAL PROTEIN 7.6 g/dL (6.3-8.2)
[2019-07-08] MEDS ORDERED: RINGERS SOLUTION,LACTATED 1,000 ML IV ONE (21:01)
[2019-07-08 22:56] LABS: APPEARANCE,URINE SLIGHTLY-CLOUDY; BILIRUBIN,URINE NEGATIVE (NEGATIVE); COLOR,URINE YELLOW; GLUCOSE, URINE >=500 mg/dL (NEGATIVE); KETONES,URINE NEGATIVE (NEGATIVE); LEUKOCYTE ESTERASE,URINE NEGATIVE (NEGATIVE); NITRITE,URINE NEGATIVE (NEGATIVE); PROTEIN,URINE >=500 mg/dL (NEGATIVE); URINE AMPHETAMINES SCREEN NEGATIVE; URINE BARBITURATES SCREEN NEGATIVE; URINE BENZODIAZEPINES SCREEN NEGATIVE; URINE COCAINE SCREEN NEGATIVE; URINE METHADONE SCREEN NEGATIVE; URINE PHENCYCLIDINE SCREEN NEGATIVE; URINE SPECIFIC GRAVITY 1.016; UROBILINOGEN,URINE NEGATIVE mg/dL (<2.0)
[2019-07-08 22:57] LABS: URINE MARIJUANA (THC) SCREEN UNCONFIRMED POSITIVE
[2019-07-09 00:32] VITALS: BP 176/116
== END 2019-07-09 00:34 | disposition home or self-care (01) ==
LOC: ER 17:35
DX: N17.9 Acute kidney failure, unspecified (principal); R10.13 Epigastric pain; E11.22 Type 2 diabetes mellitus with diabetic chronic kidney disease; I12.9 Hypertensive chronic kidney disease with stage 1 through stage 4 chronic kidney disease, or unspecified chronic kidney disease; N18.9 Chronic kidney disease, unspecified; Z90.710 Acquired absence of both cervix and uterus; Z88.6 Allergy status to analgesic agent; Z88.0 Allergy status to penicillin
CPT/HCPCS: 96376; 99284; 96361; 96374; 96375; 36415; 80307 ×2; 83690; 84703; 85025; 80053; 81001; J1170; J2405; J7030; J7120

== ENCOUNTER 2019-07-09 08:30 | Inpatient (IN) | payer MEDICAID ==
[2019-07-09] MEDS ORDERED: DEXTROSE 40% GEL 15 GM TUBE ONE (08:45)
--- NOTE | 2019-07-09 08:55 | ER Document Report ---
Entered by SARAH KELLY SCRIBE 07/09/19 0843 Acting as scribe for:JASPER BARAJAS MD ED GI/ - General Stated Complaint: BLOOD SUGAR ISSUES Time Seen by Provider: 07/09/19 08:33 Information source: Patient Notes: This 38 year old female patient with chronic pancreatitis and seizure disorder presents via EMS today with a BGL of 12 and multiple seizures prior to arrival according to EMS. This patient has been seen here numerous times the past week for her chronic upper abdominal pain. Patient told EMS that she has not been eating anything because it seems to upset her stomach. Patient continues to abuse marijuana but denies any EtOH usage within the past 12 years. Family reported that the patient's blood sugars were in the 230s last night and she took insulin, but did not eat because of her abdominal pain. The patient is not able to tell us how much insulin she took or what time she took it. The pa sera does take Lantus and NovoLog. She is also supposed to be on Keppra for her seizures. EMS reports that the patient's blood sugar was 12 when they arrived. They started an IV and gave her 15 g of D10 and her blood sugar increased to 98, she then drank some Ensure and an orange soda. A little later, the sugar fell to 72. She did have a generalized seizure with right-sided gaze and received Versed 2.5 mg intranasally. The IV had been lost by that time. She had another seizure just prior to arrival and they noted her blood pressure go quite high during the seizure. She was given another 2.5 mg of Versed intranasally. TRAVEL OUTSIDE OF THE [place] IN LAST 30 DAYS: No - Related Data Allergies/Adverse Reactions: hydrocodone [From [place]] Allergy (Verified 06/22/19 03:24) morphine Allergy (Verified 06/22/19 03:24) Penicillins Allergy (Verified 06/22/19 03:24) prednisone Allergy (Verified 06/22/19 03:24) Edema Past Medical History - General Information source: Patient, [facility] Records Cannot obtain history due to: Altered mental status - Social History Smoking Status: Current Every Day Smoker Cigarette use (# per day): Yes Frequency of alcohol use: None - in 12 years Drug Abuse: Marijuana Family History: DM, Hypertension - Past Medical History Cardiac Medical History: Reports: Hx Hypercholesterolemia, Hx Hypertension Pulmonary Medical History: Reports: Hx COPD Neurological Medical History: Reports: Hx Seizures Endocrine Medical History: Reports: Hx Diabetes Mellitus Type 2 Renal/ Medical History: Reports: Hx Renal Insufficiency GI Medical History: Reports: Hx Gastroesophageal Reflux Disease, Hx Pancreatitis - Chronic Musculoskeletal Medical History: Reports Hx Musculoskeletal Trauma Skin Medical History: Psychiatric Medical History: Reports: Hx Anxiety, Hx Depression Past Surgical History: Reports: Hx Section - x3, Hx Hysterectomy - Immunizations Immunizations up to date: Yes Hx Diphtheria, Pertussis, Tetanus Vaccination: No Review of Systems - Review of Systems -: Yes ROS unobtainable due to patient's medical condition Physical Exam - Vital signs Vitals: Temp 94.4 F L 07/09/19 08:30 - Notes Notes: Physical Exam: General: Responds to painful stimuli. Appears postictal. HEENT: Dry mucous membranes. Normocephalic. Atraumatic. PERRL. Extraocular movements intact. Oropharynx clear. Neck: Supple. Non-tender. Respiratory: No respiratory distress. Clear and equal breath sounds bilaterally. Cardiovascular: Regular rate and rhythm. Abdominal: Hypoactive bowel sounds. Upper abdominal tenderness with palpation. Back: No gross abnormalities. Extremities: Moves all four extremities. Upper extremities: Normal ROM. Cool to the touch. Lower extremities: No edema. Normal ROM. Cool to the touch. Neurological: Responds to painful stimuli Skin: Extremities are cool to the touch. There are multiple scars across extremities and neck from previous IV insertions. Course - Re-evaluation Re-evalutation: 07/09/19 10:57 I went in to reevaluate the patient, she had D5LR running into an IV in her left proximal forearm near the antecubital fossa region. When it did not appear to be running, I traced the IV to the arm and found a large swollen area consistent with IV infiltration. At this point she had had probably 700 mL's or more of that liter. She is arousable but does not want to answer questions about her insulin intake. - Vital Signs Vital signs: Temp Pulse Resp BP Pulse Ox 94.4 F L 07/09/19 08:30 - Laboratory Result Diagrams: 07/09/19 08:45 07/09/19 08:45 Laboratory results interpreted by me: 07/09/19 07/09/19 07/09/19 08:35 08:45 08:45 Hgb 11.1 L Hct 32.5 L RDW 15.1 H Potassium 3.4 L D Carbon Dioxide 32 H BUN 29 H Creatinine 2.19 H Est GFR ( Amer) 30 L Est GFR (MDRD) Non-Af 25 L Glucose 59 L POC Glucose 65 L Alkaline Phosphatase 139 H Creatine Kinase 147 H Urine Protein Urine Glucose (UA) Urine Blood 07/09/19 07/09/19 10:12 10:17 Hgb Hct RDW Potassium Carbon Dioxide BUN Creatinine Est GFR ( Amer) Est GFR (MDRD) Non-Af Glucose POC Glucose 297 H Alkaline Phosphatase Creatine Kinase Urine Protein 100 H Urine Glucose (UA) 150 H Urine Blood SMALL H - EKG Interpretation by Me EKG shows normal: Sinus rhythm, [place], QRS Complexes, ST-T Waves. abnormal: Intervals - Prolonged QT interval Rate: Normal - 78 Rhythm: NSR Voltage: Consistant with LVH P Waves: LAE - Consults YOUSIF Muller Time consulted: 10:40 Consulted provider: will come to ER Critical Care Note - Critical Care Note Total time excluding time spent on procedures (mins): 35 Comments: At least 35 minutes spent examining the patient, talking with nurses, speaking with EMS. Going back to reevaluate the patient as she is being rewarmed with the bear hugger. Calling the hospitalist lead and discussing the case, then calling the admitting hospitalist and discussing the case. Discharge - Discharge Clinical Impression: Hypoglycemia associated with type 2 diabetes mellitus, Chronic upper abdominal pain Chronic pancreatitis Qualifiers: Pancreatitis type: unspecified pancreatitis type Qualified Code(s): K86.1 - Other chronic pancreatitis Condition: Stable Disposition: ADMITTED INPATIENT Admitting Provider: Mayur (Hospitalist) - YOUSIF Muller is doing the admission orders. Unit Admitted: IMCU I personally performed the services described in the documentation, reviewed and edited the documentation which was dictated to the scribe in my presence, and it accurately records my words and actions.
[2019-07-09] MEDS ORDERED: DEXTROSE 5%-LACTATED RINGERS 1,000 ML IV ONE (09:02)
[2019-07-09 09:12] LABS: ABSOLUTE BASOPHILS # (AUTO) 0.1 10^3/uL (0.0-0.2); ABSOLUTE EOSINOPHILS # (AUTO) 0.1 10^3/uL (0.0-0.6); ABSOLUTE LYMPHOCYTES (AUTO) 2.1 10^3/uL (0.5-4.7); ABSOLUTE MONOCYTES (AUTO) 0.4 10^3/uL (0.1-1.4); ABSOLUTE NEUT (AUTO) 2.8 10^3/uL (1.7-8.2); BASOPHILS % (AUTO) 0.9 % (0-2); HEMATOCRIT 32.5 % (36.0-47.0); HEMOGLOBIN 11.1 g/dL (12.0-15.5); LYMPHOCYTES % (AUTO) 38.9 % (13-45); MEAN CORPUSCULAR HEMOGLOBIN 29.1 pg (27.0-33.4); MEAN CORPUSCULAR HGB CONC 34.2 g/dL (32.0-36.0); MEAN CORPUSCULAR VOLUME 85 fl (80-97); MONOCYTES % (AUTO) 7.1 % (3-13); PLATELET COUNT 356 10^3/uL (150-450); RED BLOOD COUNT 3.81 10^6/uL (3.72-5.28); RED CELL DISTRIBUTION WIDTH 15.1 % (11.5-14.0); SEGMENTED NEUTROPHILS % (AUTO) 51.1 % (42-78); TOTAL CELLS COUNTED % (AUTO) 100 %; WHITE BLOOD COUNT 5.5 10^3/uL (4.0-10.5)
[2019-07-09 09:29] LABS: ALBUMIN 4.4 g/dL (3.5-5.0); ALKALINE PHOSPHATASE 139 U/L (38-126); ANION GAP 6 (5-19); ASPARTATE AMINO TRANSFERASE 24 U/L (14-36); BILIRUBIN,TOTAL 0.3 mg/dL (0.2-1.3); BLOOD UREA NITROGEN 29 mg/dL (7-20); CALCIUM 9.7 mg/dL (8.4-10.2); CARBON DIOXIDE 32 mmol/L (22-30); CHLORIDE 101 mmol/L (98-107); CREATINE KINASE 147 U/L (30-135); TOTAL PROTEIN 7.7 g/dL (6.3-8.2)
[2019-07-09 09:36] LABS: GLUCOSE 59 mg/dL (75-110)
[2019-07-09 09:42] LABS: POTASSIUM 3.4 mmol/L (3.6-5.0)
[2019-07-09] MEDS ORDERED: LEVETIRACETAM 500 MG/NACL-ISO 500 MG/100 ML RTUPB IV SCH (10:00)
[2019-07-09 10:34] LABS: APPEARANCE,URINE SLIGHTLY-CLOUDY; BILIRUBIN,URINE NEGATIVE (NEGATIVE); COLOR,URINE YELLOW; GLUCOSE, URINE 150 mg/dL (NEGATIVE); KETONES,URINE NEGATIVE (NEGATIVE); LEUKOCYTE ESTERASE,URINE NEGATIVE (NEGATIVE); NITRITE,URINE NEGATIVE (NEGATIVE); PROTEIN,URINE 100 mg/dL (NEGATIVE); URINE SPECIFIC GRAVITY 1.015; UROBILINOGEN,URINE NEGATIVE mg/dL (<2.0)
--- NOTE | 2019-07-09 11:39 | RADIOLOGY REPORT (SQ) ---
EXAM DESCRIPTION: CHEST SINGLE VIEW IMAGES COMPLETED DATE/TIME: 07/09/2019 11:29 am REASON FOR STUDY: Hypoglycemia, hypothermia, seizures COMPARISON: AP view of the chest from 06/21/2019. EXAM PARAMETERS: NUMBER OF VIEWS: One view. TECHNIQUE: An AP view of the chest was obtained. RADIATION DOSE: NA LIMITATIONS: None. FINDINGS: LUNGS AND PLEURA: No consolidation, pleural effusion or pneumothorax. MEDIASTINUM AND HILAR STRUCTURES: No mediastinal or hilar contour abnormality. HEART AND VASCULAR STRUCTURES: The cardiac silhouette and pulmonary vasculature are within normal hare its. BONES: No acute findings. HARDWARE: None in the chest. OTHER: No other finding. IMPRESSION: No acute cardiopulmonary process. TECHNICAL DOCUMENTATION: JOB ID: [id number] 2010 [employer]- All Rights Reserved Reading location - IP/workstation name: [email or web address]
--- NOTE | 2019-07-09 13:32 | PDOC H&P ---
History of Present Illness Admission Date/PCP: 07/09/19 12:15 RONALD BARKER, LYNNE History of Present Illness: JJ HOFFMAN is a 38 year old female is into the emergency room with hypogl ycemia. Patient has been to the emergency room 14 tabs in the last month mostly for abdominal pain. All by EMS. Patient was admitted it appears as though for 1 of those visits. Last night she was here in the ED at 1944 hrs. and discharged home around 0200. Evidently at the time she left her glucose was around 250 but when they called EMS early this morning her glucose was "12". She reportedly had some sort of seizure and was given IV Keppra in the ER and asked to be admitted for abdominal pain and seizure. According to the chart patient was already on Keppra. Patient's main complaint is usually pancreatitis. She is to be admitted for hypoglycemia, chronic abdominal pain, chronic pancr eatitis, failure as an outpatient, diabetes Past Medical History Cardiac Medical History: Reports: Hyperlipidema, Hypertension Denies: Congestive Heart Failure, Myocardial Infarction Pulmonary Medical History: Reports: Chronic Obstructive Pulmonary Disease (COPD) Neurological Medical History: Reports: Seizures Neurological History Note: Seizures Endocrine Medical History: Reports: Diabetes Mellitus Type 2 GI Medical History: Reports: Gastroesophageal Reflux Disease Musculoskeltal Medical History: Skin Medical History: Psychiatric Medical History: Reports: Depression Hematology: Reports: Anemia Denies: Bleeding Tendencies Past Surgical History Past Surgical History: Reports: Section - x3, Hysterectomy Social History Smoking Status: Current Every Day Smoker Frequency of Alcohol Use: Heavy Hx Recreational Drug Use: Yes Drugs: Marijuana Hx Prescription Drug Abuse: No - Advance Directive Resuscitation Status: Full Code Family History Family History: DM, Hypertension Parental Family History Reviewed: No Children Family History Reviewed: No Sibling(s) Family History Reviewed.: No Medication/Allergy Home Medications: Chlorzoxazone [Parafon Forte Dsc 500 mg Tablet] 500 mg PO BID PRN #20 tablet 06/13/19 Insulin Aspart [Novolog Flexpen] 0 unit SQ .SLIDING SCALE PRN 06/21/19 Insulin Glargine,Hum.rec.anlog [Lantus (Pyxis) Insulin 100 Unit/1 ml 10 ml] 40 units SQ QAM 06/21/19 Amlodipine Besylate [Norvasc 10 mg Tablet] 10 mg PO DAILY 06/27/19 Dicyclomine HCl [Bentyl 10 mg Capsule] 10 mg PO TID 06/27/19 Levetiracetam [Keppra 500 mg Tablet] 500 mg PO Q12 06/27/19 Lisinopril 20 mg PO DAILY 06/27/19 Promethazine HCl [Phenergan 25 mg Tablet] 25 mg PO Q6HP PRN MDD 6 TABS 06/27/19 Acetaminophen [Tylenol 325 mg Tablet] 650 mg PO Q4HP PRN tablet 06/29/19 Atorvastatin Calcium [Lipitor 20 mg Tablet] 20 mg PO QHS #30 tablet 06/29/19 Carvedilol [Coreg 12.5 mg Tablet] 12.5 mg PO Q12 #60 tablet 06/29/19 Lipase/Protease/Amylase [Pancreaze-10 Capsule.] 2 cap PO BIDACBS #180 capsule. 06/29/19 Mag Hydrox/Al Hydrox/Simeth [Maalox Plus Susp 30 Udcup] 30 ml PO Q6HP PRN udc 06/29/19 Nicotine [Nicoderm 14 mg/24 Hr Transdermal Patch] 1 each TD DAILY #30 patch.td24 06/29/19 Omeprazole 20 mg PO BID #60 capsule. 06/29/19 Ondansetron [Zofran Odt 4 mg Tablet] 1 - 2 tab PO Q4HP PRN #20 tab.rapdis 06/29/19 Oxycodone HCl/Acetaminophen [Percocet 5-325 mg Tablet] 1 tab PO Q4HP PRN #12 tab 06/29/19 Sucralfate [Carafate 1 gm Tablet] 1 gm PO Q6 #120 tablet 06/29/19 Promethazine HCl [Phenergan 25 mg Supp.rect] 1 supp [place] Q6H #12 supp.rect 07/03/19 Ondansetron [Zofran Odt 4 mg Tablet] 1 - 2 tab PO Q4H PRN #15 tab.rapdis 07/07/19 Pantoprazole Sodium [Protonix [address] Tablet] 40 mg PO NOW 30 Days #30 tablet. 07/07/19 Sucralfate [Carafate 1 gm Tablet] 1 gm PO ACHS #120 tablet 07/08/19 Allergies/Adverse Reactions: hydrocodone [From [place]] Allergy (Verified 06/22/19 03:24) morphine Allergy (Verified 06/22/19 03:24) Penicillins Allergy (Verified 06/22/19 03:24) prednisone Allergy (Verified 06/22/19 03:24) Edema Review of Systems ROS unobtainable: Due to mental status Physical Exam Vital Signs: Temp Pulse Resp BP Pulse Ox 94.4 F L 07/09/19 08:30 Intake & Output 07/08/19 07/09/19 07/10/19 06:59 06:59 06:59 Intake Total 1100 Balance 1100 Weight 56.669 kg General appearance: PRESENT: no acute distress Respiratory exam: PRESENT: clear to auscultation teddy. ABSENT: rales, rhonchi, wheezes Cardiovascular exam: PRESENT: RRR. ABSENT: diastolic murmur, rubs, systolic murmur GI/Abdominal exam: PRESENT: normal bowel sounds, soft. ABSENT: distended, guarding, mass, organolmegaly, rebound, tenderness Neurological exam: PRESENT: alert, awake, oriented to person, oriented to place, oriented to time, oriented to situation, CN II-XII grossly intact. ABSENT: motor sensory deficit Psychiatric exam: PRESENT: depressed, flat affect Results Laboratory Results: 07/09/19 08:45 07/09/19 08:45 07/09/19 07/09/19 07/09/19 08:45 08:45 10:12 WBC 5.5 RBC 3.81 Hgb 11.1 L Hct 32.5 L MCV 85 MCH 29.1 MCHC 34.2 RDW 15.1 H Plt Count 356 Seg Neutrophils % 51.1 Sodium 139.4 Potassium 3.4 L D Chloride 101 Carbon Dioxide 32 H Anion Gap 6 BUN 29 H Creatinine 2.19 H Est GFR ( Amer) 30 L Glucose 59 L Calcium 9.7 Total Bilirubin 0.3 AST 24 Alkaline Phosphatase 139 H Total Protein 7.7 Albumin 4.4 Lipase 101.2 Urine Color YELLOW Urine Appearance SLIGHTLY-CLOUDY Urine pH 6.0 Ur Specific [place] 1.015 Urine Protein 100 H Urine Glucose (UA) 150 H Urine Ketones NEGATIVE Urine Blood SMALL H Urine Nitrite NEGATIVE Ur Leukocyte Esterase NEGATIVE Urine WBC (Auto) 5 Urine RBC (Auto) 2 07/09/19 07/09/19 08:45 08:45 Creatine Kinase 147 H Troponin I < 0.012 Impressions: Chest X-Ray 07/09/19 10:56 IMPRESSION: No acute cardiopulmonary process. Assessment and Plan - Diagnosis (1) Chronic pancreatitis Qualifiers: Pancreatitis type: unspecified pancreatitis type Qualified Code(s): K86.1 - Other chronic pancreatitis Is this a current diagnosis for this admission?: Yes (2) Chronic upper abdominal pain Is this a current diagnosis for this admission?: Yes (3) Hypoglycemia associated with type 2 diabetes mellitus Is this a current diagnosis for this admission?: Yes (4) RONIT (acute kidney injury) Is this a current diagnosis for this admission?: Yes (5) COPD (chronic obstructive pulmonary disease) Qualifiers: Emphysema type: unspecified Is this a current diagnosis for this admission?: Yes (6) Hyperlipidemia Qualifiers: Hyperlipidemia type: unspecified Qualified Code(s): E78.5 - Hyperlipidemia, unspecified Is this a current diagnosis for this admission?: Yes (7) Hypertension Qualifiers: Hypertension type: essential hypertension Qualified Code(s): I10 - Essential (primary) hypertension Is this a current diagnosis for this admission?: Yes (8) Polysubstance Is this a current diagnosis for this admission?: Yes (9) Seizure disorder Is this a current diagnosis for this admission?: Yes (10) Hypothermia Is this a current diagnosis for this admission?: Yes - Plan Summary Summary: Will be admitted to the hospital for IV fluids we will try to treat her with p.o. pain medication and try to avoid IV Dilaudid at all possible. Repeat her with a sliding scale of insulin, monitor labs. On admission her white count is 5500 H&H 11.1 and 32.5 platelets 356,000 Sodium 139 potassium 3.4 BUN 29 creatinine 2.19 GFR of 30 Glucose earlier this morning of 65 most recently 297 Troponin is negative Lipase normal 101 Patient had a chest x-ray this morning that showed no acute process Only temperature recorded this morning at 0 830 was 94.4 the patient is currently on the bear hugger and no further temperatures have been recorded in the chart - Time Time Spent with patient: 35 or more minutes
[2019-07-09] MEDS: OXYCODONE-ACETAMINOPHEN 5-325 MG TABLET PO PRN ×2 (13:53→18:37)
[2019-07-09] MEDS ORDERED: (PENDING PHARMACY ID) (Lisinopril [Lisinopril] 20 MG) PO SCH (15:45)
[2019-07-09] MEDS: LISINOPRIL 10 MG TABLET PO SCH (16:15)
[2019-07-09] MEDS: SUCRALFATE 1 GM TABLET PO SCH ×2 (16:15→22:02)
[2019-07-09] MEDS: AMLODIPINE BESYLATE 10 MG TABLET PO SCH (16:15)
[2019-07-09] MEDS ORDERED: DEXTROSE 50%-WATER SYRINGE 25 GM/50 ML DOSE IV PRN (16:30)
[2019-07-09] MEDS ORDERED: GLUCAGON,HUMAN RECOMB 1 MG INJ IM PRN (16:30)
[2019-07-09] MEDS ORDERED: DEXTROSE 40% GEL 15 GM TUBE PO PRN (16:30)
[2019-07-09] MEDS ORDERED: DEXTROSE 40% GEL 15 GM TUBE X 2 PO PRN (16:30)
[2019-07-09] MEDS ORDERED: DEXTROSE 50%-WATER SYRINGE 12.5 GM/25 ML DOSE IV PRN (16:30)
[2019-07-09] MEDS: INSULIN LISPRO 100 UNIT/ML 3 ML VIAL SUBCUT SCH ×2 (17:31→22:05)
[2019-07-09] MEDS: CHLORZOXAZONE 500 MG TABLET PO SCH (17:39)
[2019-07-09] MEDS ORDERED: INSULIN LISPRO 100 UNIT/ML 3 ML VIAL SUBCUT SCH (22:00)
[2019-07-09] MEDS: LEVETIRACETAM 500 MG TABLET PO SCH (22:02)
[2019-07-09] MEDS: ATORVASTATIN CALCIUM 20 MG TABLET PO SCH (22:02)
[2019-07-09] MEDS: CARVEDILOL 12.5 MG TABLET PO SCH (22:02)
--- NOTE | 2019-07-09 22:40 | EKG REPORT ---
SEVERITY:- ABNORMAL ECG - SINUS RHYTHM PROBABLE LEFT ATRIAL ABNORMALITY PROBABLE LEFT VENTRICULAR HYPERTROPHY ST ELEVATION SUGGESTS PERICARDITIS VS LVH PROLONGED QT INTERVAL : Confirmed by: Valentina Fierro 09-Jul-2019 22:40:00
[2019-07-10] MEDS: INSULIN LISPRO 100 UNIT/ML 3 ML VIAL SUBCUT SCH ×4 (07:48→21:54)
[2019-07-10] MEDS: OXYCODONE-ACETAMINOPHEN 5-325 MG TABLET PO PRN ×2 (07:54→18:04)
[2019-07-10] MEDS: SUCRALFATE 1 GM TABLET PO SCH ×4 (07:55→21:54)
[2019-07-10] MEDS ORDERED: INSULIN GLARGINE HUM REC ANLOG 40 UNIT SQ SCH (08:00)
[2019-07-10] MEDS ORDERED: METOCLOPRAMIDE HCL ORAL SOLN 10 MG/10 ML UDCUP PO ONE (09:11)
[2019-07-10] MEDS ORDERED: MAG HYDROX/AL HYDROX/SIMETH SUSP 30 ML UDCUP PO ONE (09:11)
[2019-07-10] MEDS ORDERED: LIDOCAINE 2% VISCOUS SOLN 15 ML UDCUP PO ONE (09:11)
[2019-07-10] MEDS: INSULIN GLARGINE,HUM.REC.ANLOG 1,000 UNIT/10 ML VIAL SUBCUT SCH (10:06)
[2019-07-10] MEDS: LEVETIRACETAM 500 MG TABLET PO SCH ×2 (10:30→21:54)
[2019-07-10] MEDS: AMLODIPINE BESYLATE 10 MG TABLET PO SCH (10:30)
[2019-07-10] MEDS: CHLORZOXAZONE 500 MG TABLET PO SCH ×2 (10:30→17:03)
[2019-07-10] MEDS: LISINOPRIL 10 MG TABLET PO SCH (10:30)
[2019-07-10] MEDS: CARVEDILOL 12.5 MG TABLET PO SCH ×2 (10:30→21:54)
[2019-07-10] MEDS ORDERED: GLUCAGON,HUMAN RECOMB 1 MG INJ SUBCUT PRN (17:09)
[2019-07-10] MEDS ORDERED: DEXTROSE 50%-WATER 25 GM/50 ML DISP.SYRIN IV PRN ×2 (17:09)
[2019-07-10] MEDS ORDERED: DEXTROSE 40% GEL 15 GM TUBE PO PRN ×2 (17:09)
--- NOTE | 2019-07-10 17:26 | PDOC PROGRESS REPORT ---
Subjective Progress Note for:: 07/10/19 Subjective:: The patient is a 38-year-old female, well-known to our service, with a past medical history of chronic pancreatitis, gastritis/PUD, uncontrolled insulin- dependent diabetes, tobacco dependence, and substance abuse who was admitted 07/09/2019 for hypoglycemia. Patient was seen on morning rounds. She is found resting in bed on room air. Breathing comfortably, however, with report of worsening abdominal discomfort. She is noted to be curled in the position and rocking back and forth. She does admit to nausea but without emesis. When I mentioned that the GI cocktail that worked successfully during her last admission, patient requests to use that immediately. I followed up later and per nursing, the patient had required no further interventions for pain. She denies fever, chills, chest pain, palpitations, dyspnea, cough. Discussed recommendations for GI consultation and likely EGD in the morning. All questions answered. No questions per nursing. Reason For Visit: HYPOGLYCEMIA Physical Exam Vital Signs: Temp Pulse Resp BP Pulse Ox 98.4 F 90 20 118/76 100 07/10/19 16:34 07/10/19 16:34 07/10/19 16:34 07/10/19 16:34 07/10/19 16:34 Intake & Output 07/09/19 07/10/19 07/11/19 06:59 06:59 06:59 Intake Total 2736 236 Balance 2736 236 Weight 57.8 kg General appearance: PRESENT: no acute distress, well-developed, well-nourished Head exam: PRESENT: atraumatic, normocephalic Eye exam: PRESENT: conjunctiva pink, EOMI, PERRLA. ABSENT: scleral icterus Mouth exam: PRESENT: moist, tongue midline Teeth exam: PRESENT: poor dentation Respiratory exam: PRESENT: clear to auscultation teddy, symmetrical, unlabored. ABSENT: rales, rhonchi, wheezes Cardiovascular exam: PRESENT: RRR, +S1, +S2. ABSENT: diastolic murmur, rubs, systolic murmur Vascular exam: PRESENT: normal capillary refill GI/Abdominal exam: PRESENT: normal bowel sounds, soft, tenderness. ABSENT: distended, guarding, mass, organolmegaly, rebound Rectal exam: PRESENT: deferred Extremities exam: PRESENT: full ROM. ABSENT: calf tenderness, clubbing, pedal edema Musculoskeletal exam: PRESENT: ambulatory Neurological exam: PRESENT: alert, awake, oriented to person, oriented to place, oriented to time, oriented to situation, CN II-XII grossly intact. ABSENT: motor sensory deficit Psychiatric exam: PRESENT: appropriate affect, normal mood. ABSENT: homicidal ideation, suicidal ideation Skin exam: PRESENT: dry, intact, warm. ABSENT: cyanosis, rash Results Laboratory Results: 07/09/19 08:45 07/09/19 08:45 07/09/19 07/09/19 08:45 08:45 Creatine Kinase 147 H Troponin I < 0.012 Impressions: Chest X-Ray 07/09/19 10:56 IMPRESSION: No acute cardiopulmonary process. Assessment and Plan - Diagnosis (1) Chronic upper abdominal pain Is this a current diagnosis for this admission?: Yes Plan: High suspicion for peptic ulcer disease. Patient was recently admitted last week when I took care of her. H pylori IgG antibody high; 3.28 Her symptoms improved significantly with trial of GI cocktail. She was discharged on PPI and Carafate. Those are continued this admission. We will continue GI cocktail every 6 hours as needed. Continue home dose Parafon forte. GI is consulted; plans for EGD. She is placed on a clear liquid diet and n.p.o. after midnight. We will discuss with Dr. Lehman, following EGD tomorrow, whether or not the patient would benefit from antibiotic treatment for H. pylori. (2) Chronic pancreatitis Qualifiers: Pancreatitis type: unspecified pancreatitis type Qualified Code(s): K86.1 - Other chronic pancreatitis Is this a current diagnosis for this admission?: Yes Plan: Lipase is normal. CT imaging earlier this month benign. Fortunately, GI is available today. Have consulted Dr. Gonzales. Appreciate his evaluation recommendations. Continue home dose Pancreaze (3) Hypoglycemia associated with type 2 diabetes mellitus Is this a current diagnosis for this admission?: Yes Plan: A1c 9.3% (06/06/2019) Lantus 40 units once daily. Accu-Cheks before meals and at bedtime with Humalog for sliding scale coverage. Hypoglycemia protocol in place. Will monitor total insulin intake; likely will require dose adjustment of her long-acting insulin. (4) RONIT (acute kidney injury) Is this a current diagnosis for this admission?: Yes Plan: Resolved. Now at baseline creatinine. Likely secondary to poor p.o. intake given her chronic abdominal discomfort. Received IV fluids. We will avoid nephrotoxic medications as able. Follow-up chemistry. (5) CKD (chronic kidney disease) Qualifiers: Chronic kidney disease stage: stage 3 (moderate) Qualified Code(s): N18.3 - Chronic kidney disease, stage 3 (moderate) Is this a current diagnosis for this admission?: Yes Plan: Baseline creatinine 2.07 (6) Hyperlipidemia Qualifiers: Hyperlipidemia type: unspecified Qualified Code(s): E78.5 - Hyperlipidemia, unspecified Is this a current diagnosis for this admission?: Yes Plan: Home dose atorvastatin. Advance to cardiac/consistent carb diet once tolerated (7) Hypertension Qualifiers: Hypertension type: essential hypertension Qualified Code(s): I10 - Ess ential (primary) hypertension Is this a current diagnosis for this admission?: Yes Plan: Blood pressures are well controlled at present. Continue home dose amlodipine, carvedilol, lisinopril. (8) Hypothermia Qualifiers: Encounter type: initial encounter Qualified Code(s): T68.XXXA - Hypothermia, initial encounter Is this a current diagnosis for this admission?: Yes Plan: Resolved. Likely secondary to profound hypoglycemia. (9) Polysubstance Is this a current diagnosis for this admission?: Yes Plan: Patient admits to THC Cessation encouraged. (10) Seizure disorder Is this a current diagnosis for this admission?: Yes Plan: Continue home dose Keppra. - Time Time Spent with patient: 35 or more minutes Medications reviewed and adjusted accordingly: Yes Anticipated discharge: Home Within: within 48 hours
[2019-07-10] MEDS: PANTOPRAZOLE SODIUM 40 MG TABLET.DR PO SCH (17:55)
[2019-07-10] MEDS: LIDOCAINE 2% VISCOUS SOLN 15 ML UDCUP PO PRN ×2 (17:58→23:53)
[2019-07-10] MEDS: MAG HYDROX/AL HYDROX/SIMETH SUSP 30 ML UDCUP PO PRN ×2 (17:59→23:53)
[2019-07-10] MEDS: METOCLOPRAMIDE HCL ORAL SOLN 10 MG/10 ML UDCUP PO PRN ×2 (17:59→23:53)
--- NOTE | 2019-07-10 21:07 | PDOC CONSULTATION ---
Consultation Consult Date: 07/10/19 Provider Consulted: SHINE CANTU Consult reason:: abdominal pain History of Present Illness Admission Date/PCP: 07/09/19 12:15 LYNNE OLMEDO History of Present Illness: JJ HOFFMAN is a 38 year old female multiple admission for his patient with largely poorly controlled diabetes epigastric pain had a history of chronic pancreatitis needs to have GI cocktail to feel better ? if she had PUD will need EGD had had previous scopes in the past that were largely undiagnostic some nausea and vomiting history of pancreatitis no melena Hgb is stable will schedule with Propofol sedation Past Medical History Cardiac Medical History: Reports: Hyperlipidema, Hypertension Denies: Congestive Heart Failure, Myocardial Infarction Pulmonary Medical History: Reports: Chronic Obstructive Pulmonary Disease (COPD) Neurological Medical History: Reports: Seizures Endocrine Medical History: Reports: Diabetes Mellitus Type 2 GI Medical History: Reports: Gastroesophageal Reflux Disease Musculoskeltal Medical History: Skin Medical History: Psychiatric Medical History: Reports: Depression Hematology: Reports: Anemia Denies: Bleeding Tendencies Past Surgical History Past Surgical History: Reports: Section - x3, Hysterectomy Social History Smoking Status: Current Every Day Smoker Cigarettes Packs Per Day: 0.5 Electronic Cigarette use?: No Frequency of Alcohol Use: Social Hx Recreational Drug Use: Yes Drugs: Marijuana Hx Prescription Drug Abuse: No - Advance Directive Resuscitation Status: Full Code Family History Family History: DM, Hypertension Parental Family History Reviewed: Yes Children Family History Reviewed: Unknown Sibling(s) Family History Reviewed.: Unknown Medication/Allergy Home Medications: Insulin Aspart [Novolog Flexpen] 0 unit SQ .SLIDING SCALE PRN 06/21/19 Insulin Glargine,Hum.rec.anlog [Lantus (Pyxis) Insulin 100 Unit/1 ml 10 ml] 40 units SQ QAM 06/21/19 Amlodipine Besylate [Norvasc 10 mg Tablet] 10 mg PO DAILY 06/27/19 Dicyclomine HCl [Bentyl 10 mg Capsule] 10 mg PO [id number] 06/27/19 Levetiracetam [Keppra 500 mg Tablet] 500 mg PO Q12 06/27/19 Lisinopril 20 mg PO DAILY 06/27/19 Promethazine HCl [Phenergan 25 mg Tablet] 25 mg PO Q6HP PRN MDD 6 TABS 06/27/19 Atorvastatin Calcium [Lipitor 20 mg Tablet] 20 mg PO QHS #30 tablet 06/29/19 Carvedilol [Coreg 12.5 mg Tablet] 12.5 mg PO Q12 #60 tablet 06/29/19 Sucralfate [Carafate 1 gm Tablet] 1 gm PO ACHS #120 tablet 07/08/19 Acetaminophen [Tylenol 325 mg Tablet] 650 mg PO Q4HP PRN 07/09/19 Chlorzoxazone [Parafon Forte Dsc 500 mg Tablet] 500 mg PO BID 07/09/19 Omeprazole 20 mg PO DAILY 07/09/19 Ondansetron [Zofran Odt 4 mg Tablet] 4 mg PO Q4HP PRN 07/09/19 Allergies/Adverse Reactions: hydrocodone [From [place]] Allergy (Verified 06/22/19 03:24) morphine Allergy (Verified 06/22/19 03:24) Penicillins Allergy (Verified 06/22/19 03:24) prednisone Allergy (Verified 06/22/19 03:24) Edema Review of Systems Constitutional: ABSENT: fever(s), headache(s), night sweats, weakness Eyes: ABSENT: visual disturbances Ears: ABSENT: hearing changes Nose, Mouth, and Throat: ABSENT: mouth pain, sore throat Cardiovascular: ABSENT: edema, orthropnea, palpitations Respiratory: ABSENT: dyspnea, hemoptysis Gastrointestinal: PRESENT: nausea, vomiting. ABSENT: diarrhea, hematemesis, hematochezia Genitourinary: ABSENT: dysuria, hematuria Musculoskeletal: ABSENT: deformity, joint swelling Integumentary: ABSENT: lesions, pruritus Neurological: ABSENT: syncope, tingling, tremor(s), vertigo Endocrine: ABSENT: polydipsia, polyphagia, polyuria Hematologic/Lymphatic: ABSENT: easy bruising Physical Exam Vital Signs: Temp Pulse Resp BP Pulse Ox 98.4 F 90 20 118/76 100 07/10/19 16:34 07/10/19 16:34 07/10/19 16:34 07/10/19 16:34 07/10/19 16:34 Intake & Output 07/09/19 07/10/19 07/11/19 06:59 06:59 06:59 Intake Total 5650 6025 Balance 2736 1788 Weight 57.8 kg General appearance: PRESENT: mild distress, well-developed, well-nourished Head exam: PRESENT: atraumatic, normocephalic Eye exam: PRESENT: EOMI, PERRLA. ABSENT: nystagmus, periorbital swelling, scleral icterus Mouth exam: PRESENT: moist, neck supple Throat exam: ABSENT: tonsillar exudate, tonsillogmegaly Neck exam: ABSENT: meningismus, tenderness, thyromegaly Respiratory exam: PRESENT: symmetrical, unlabored. ABSENT: tachypnea, wheezes Cardiovascular exam: PRESENT: RRR, +S1, +S2 GI/Abdominal exam: PRESENT: soft. ABSENT: rebound, rigid, tenderness Extremities exam: ABSENT: joint swelling Musculoskeletal exam: PRESENT: full ROM Neurological exam: PRESENT: oriented to time, oriented to situation, reflexes normal Focused psych exam: ABSENT: restlessness Skin exam: PRESENT: normal color. ABSENT: mottled, pallor Results Laboratory Results: 07/09/19 08:45 07/09/19 08:45 07/09/19 07/09/19 08:45 08:45 Creatine Kinase 147 H Troponin I < 0.012 Impressions: Chest X-Ray 07/09/19 10:56 IMPRESSION: No acute cardiopulmonary process. Assessment & Plan - Diagnosis (1) Chronic pancreatitis Qualifiers: Pancreatitis type: unspecified pancreatitis type Qualified Code(s): K86.1 - Other chronic pancreatitis Is this a current diagnosis for this admission?: Yes Plan: may benefit from enzyme supplementation (2) Chronic upper abdominal pain Is this a current diagnosis for this admission?: Yes Plan: will need EGD Risks, benefits and alternatives are explained to the patient in detail further recommendations to follow - Time Time Spent: 50 to 70 Minutes
[2019-07-10] MEDS: ATORVASTATIN CALCIUM 20 MG TABLET PO SCH (21:54)
[2019-07-11] MEDS: PANTOPRAZOLE SODIUM 40 MG TABLET.DR PO SCH ×2 (05:28→16:00)
[2019-07-11 06:54] LABS: HEMATOCRIT 29.2 % (36.0-47.0); HEMOGLOBIN 9.8 g/dL (12.0-15.5); MEAN CORPUSCULAR HGB CONC 33.7 g/dL (32.0-36.0); MEAN CORPUSCULAR VOLUME 86 fl (80-97); PLATELET COUNT 301 10^3/uL (150-450); RED BLOOD COUNT 3.39 10^6/uL (3.72-5.28); RED CELL DISTRIBUTION WIDTH 14.9 % (11.5-14.0); WHITE BLOOD COUNT 6.2 10^3/uL (4.0-10.5)
[2019-07-11] MEDS ORDERED: NALOXONE HCL INJ/PF 0.4 MG/1 ML SDV ONE (07:18)
[2019-07-11] MEDS ORDERED: DIPHENHYDRAMINE HCL 50 MG/ML VIAL ONE (07:18)
[2019-07-11 07:19] LABS: ANION GAP 7 (5-19); BLOOD UREA NITROGEN 13 mg/dL (7-20); CALCIUM 9.3 mg/dL (8.4-10.2); CARBON DIOXIDE 26 mmol/L (22-30); CHLORIDE 105 mmol/L (98-107); POTASSIUM 4.7 mmol/L (3.6-5.0)
[2019-07-11] MEDS ORDERED: ONDANSETRON HCL INJ/PF 4 MG/2 ML SDV ONE (07:19)
[2019-07-11] MEDS ORDERED: MIDAZOLAM 2 MG/2 ML INJ ONE (07:19)
[2019-07-11] MEDS ORDERED: FLUMAZENIL INJ 0.5 MG/5 ML VIAL ONE (07:19)
[2019-07-11] MEDS ORDERED: FENTANYL CITRATE INJ/PF 100 MCG/2 ML AMPUL ONE (07:19)
[2019-07-11] MEDS ORDERED: EPINEPHRINE INJ 1 MG/10 ML DISP.SYRIN ONE (07:20)
[2019-07-11] MEDS ORDERED: GLUCAGON,HUMAN RECOMB 1 MG INJ ONE (07:20)
[2019-07-11] MEDS ORDERED: PROPOFOL INJ 200 MG/20 ML VIAL IV ONE (07:25)
[2019-07-11 07:31] LABS: GLUCOSE 40 mg/dL (75-110)
[2019-07-11] MEDS ORDERED: PROMETHAZINE HCL INJ 25 MG/1 ML VIAL IV PRN ×2 (07:48)
[2019-07-11] MEDS ORDERED: DIPHENHYDRAMINE HCL 50 MG/ML VIAL IV PRN (07:48)
[2019-07-11] MEDS: INSULIN LISPRO 100 UNIT/ML 3 ML VIAL SUBCUT SCH ×4 (07:53→21:46)
--- NOTE | 2019-07-11 07:53 | Operative Report ---
Operative Report DATE OF SURGERY: 07/11/19 Operative Report: The risks benefits and alternatives of the procedure explained to the patient in detail and informed consent is obtained.A GIF Olympus video scope was inserted into the patient's mouth and hypopharynx ,the esophagus is identified intubated and insufflated, the scope was then advanced through the esophagus stomach and duodenum, retroflexion maneuver is done, the esophagus stomach and first and second portions of the duodenum examined PREOPERATIVE DIAGNOSIS: Abdominal pain rule out peptic ulcer disease POSTOPERATIVE DIAGNOSIS: Mild gastritis if any, normal EGD biopsies obtained rule out H. pylori OPERATION: EGD with biopsy SURGEON: SHINE CANTU ANESTHESIA: LMAC TISSUE REMOVED OR ALTERED: As noted above. COMPLICATIONS: None. ESTIMATED BLOOD LOSS: None. INTRAOPERATIVE FINDINGS: As noted above. PROCEDURE: Patient tolerated the procedure well. No immediate postprocedure complications are noted. Sent back to her room in good condition. Resume previous diet as tolerated. Wait on biopsies. If patient has chronic pancreatitis/suggest pancreatic enzyme supplementation Follow-up as outpatient
[2019-07-11] MEDS: INSULIN GLARGINE,HUM.REC.ANLOG 1,000 UNIT/10 ML VIAL SUBCUT SCH (07:54)
[2019-07-11] MEDS: LISINOPRIL 10 MG TABLET PO SCH (09:04)
[2019-07-11] MEDS: AMLODIPINE BESYLATE 10 MG TABLET PO SCH (09:04)
[2019-07-11] MEDS: LIPASE/PROTEASE/AMYLASE 1 CAP CAPSULE.DR PO SCH ×2 (09:05→15:56)
[2019-07-11] MEDS: SUCRALFATE 1 GM TABLET PO SCH ×4 (09:05→21:45)
[2019-07-11] MEDS: CARVEDILOL 12.5 MG TABLET PO SCH ×2 (09:05→21:45)
[2019-07-11] MEDS: LEVETIRACETAM 500 MG TABLET PO SCH ×2 (09:05→21:45)
[2019-07-11] MEDS: CHLORZOXAZONE 500 MG TABLET PO SCH ×2 (09:05→17:25)
[2019-07-11] MEDS: OXYCODONE-ACETAMINOPHEN 5-325 MG TABLET PO PRN ×2 (09:21→15:56)
[2019-07-11] MEDS: METOCLOPRAMIDE HCL ORAL SOLN 10 MG/10 ML UDCUP PO PRN (12:05)
[2019-07-11] MEDS: LIDOCAINE 2% VISCOUS SOLN 15 ML UDCUP PO PRN (12:05)
[2019-07-11] MEDS: MAG HYDROX/AL HYDROX/SIMETH SUSP 30 ML UDCUP PO PRN (12:05)
--- NOTE | 2019-07-11 17:33 | PDOC PROGRESS REPORT ---
Subjective Progress Note for:: 07/11/19 Subjective:: The patient is a 38-year-old female, well-known to our service, with a past medical history of chronic pancreatitis, gastritis/PUD, uncontrolled insulin- dependent diabetes, tobacco dependence, and substance abuse who was admitted 07/09/2019 for hypoglycemia. Patient was seen on morning rounds along return from EGD. She is found resting in bed on room air. She reports that she is feeling well at the moment; just received pain medication. Does continue to have intermittent abdominal pain but believes that the GI cocktail worked well for her yesterday. Discussed her home medications; she reports that she has had no difficulty in obtaining her medications. She was specifically asked about the Pancreaze enzyme as following her last admission I sent in prior authorization paperwork. She tells me that she was able to fill that prescription as well. She denies fever, chills, chest pain, palpitations, dyspnea, cough. She has no questions or concerns at this time. No questions per nursing. Reason For Visit: HYPOGLYCEMIA Physical Exam Vital Signs: Temp Pulse Resp BP Pulse Ox 98.3 F 83 18 135/73 H 99 07/11/19 11:11 07/11/19 14:00 07/11/19 11:11 07/11/19 11:11 07/11/19 11:11 Intake & Output 07/10/19 07/11/19 07/12/19 06:59 06:59 06:59 Intake Total 2736 1788 380 Balance 2736 1788 380 Weight 57.8 kg 55.9 kg General appearance: PRESENT: no acute distress, well-developed, well-nourished Head exam: PRESENT: atraumatic, normocephalic Eye exam: PRESENT: conjunctiva pink, EOMI, PERRLA. ABSENT: scleral icterus Mouth exam: PRESENT: moist, tongue midline Respiratory exam: PRESENT: clear to auscultation teddy, symmetrical, unlabored. ABSENT: rales, rhonchi, wheezes Cardiovascular exam: PRESENT: RRR, +S1, +S2. ABSENT: diastolic murmur, rubs, systolic murmur Vascular exam: PRESENT: normal capillary refill GI/Abdominal exam: PRESENT: normal bowel sounds, soft. ABSENT: distended, guarding, mass, organolmegaly, rebound, tenderness Rectal exam: PRESENT: deferred Extremities exam: PRESENT: full ROM. ABSENT: calf tenderness, clubbing, pedal edema Neurological exam: PRESENT: alert, awake, oriented to person, oriented to place, oriented to time, oriented to situation, CN II-XII grossly intact. ABSENT: motor sensory deficit Psychiatric exam: PRESENT: appropriate affect, normal mood. ABSENT: homicidal ideation, suicidal ideation Skin exam: PRESENT: dry, intact, warm. ABSENT: cyanosis, rash Results Laboratory Results: 07/11/19 06:07 07/11/19 06:07 07/11/19 07/11/19 06:07 06:07 WBC 6.2 RBC 3.39 L Hgb 9.8 L Hct 29.2 L MCV 86 MCH 29.0 MCHC 33.7 RDW 14.9 H Plt Count 301 Sodium 137.5 Potassium 4.7 Chloride 105 Carbon Dioxide 26 Anion Gap 7 BUN 13 Creatinine 1.74 H Est GFR ( Amer) 40 L Glucose 40 L* Calcium 9.3 07/09/19 07/09/19 08:45 08:45 Creatine Kinase 147 H Troponin I < 0.012 Impressions: Chest X-Ray 07/09/19 10:56 IMPRESSION: No acute cardiopulmonary process. Assessment and Plan - Diagnosis (1) Chronic upper abdominal pain Is this a current diagnosis for this admission?: Yes Plan: EGD showed possible mild gastritis; no evidence of ulcers. Biopsies obtained to confirm H. pylori. H pylori IgG antibody high; 3.28 Her symptoms improved significantly with trial of GI cocktail. She was discharged on PPI and Carafate. Those are continued this admission. We will continue GI cocktail every 6 hours as needed. Continue home dose Parafon forte. Continue Pancreaze with meals. Consider Reglan with meals at discharge; patient may have gastroparesis related to her uncontrolled diabetes. Have advanced to a consistent carb diet. (2) Chronic pancreatitis Qualifiers: Pancreatitis type: unspecified pancreatitis type Qualified Code(s): K86.1 - Other chronic pancreatitis Is this a current diagnosis for this admission?: Yes Plan: Lipase is normal. CT imaging earlier this month benign. Have consulted Dr. Lehman. Appreciate his evaluation and recommendations. Continue home dose Pancreaze (3) Hypoglycemia associated with type 2 diabetes mellitus Is this a current diagnosis for this admission?: Yes Plan: A1c 9.3% (06/06/2019) Lantus 40 units once daily at home; have discontinued. Will start Lantus 10 units qHS. Accu-Cheks before meals and at bedtime with Humalog for sliding scale coverage. Hypoglycemia protocol in place. Will monitor total insulin intake; likely will require additional dose adjustment of her long-acting insulin. (4) RONIT (acute kidney injury) Is this a current diagnosis for this admission?: Yes Plan: Resolved. Now at baseline creatinine. Likely secondary to poor p.o. intake given her chronic abdominal discomfort. Received IV fluids. We will avoid nephrotoxic medications as able. Follow-up chemistry. (5) CKD (chronic kidney disease) Qualifiers: Chronic kidney disease stage: stage 3 (moderate) Qualified Code(s): N18.3 - Chronic kidney disease, stage 3 (moderate) Is this a current diagnosis for this admission?: Yes Plan: Baseline creatinine 2.07 (6) Hyperlipidemia Qualifiers: Hyperlipidemia type: unspecified Qualified Code(s): E78.5 - Hyperlipidemia, unspecified Is this a current diagnosis for this admission?: Yes Plan: Home dose atorvastatin. Advance to cardiac/consistent carb diet once tolerated (7) Hypertension Qualifiers: Hypertension type: essential hypertension Qualified Code(s): I10 - Essential (primary) hypertension Is this a current diagnosis for this admission?: Yes Plan: Blood pressures are well controlled at present. Continue home dose amlodipine, carvedilol, lisinopril. (8) Hypothermia Qualifiers: Encounter type: initial encounter Qualified Code(s): T68.XXXA - Hypotherm ia, initial encounter Is this a current diagnosis for this admission?: Yes Plan: Resolved. Likely secondary to profound hypoglycemia. (9) Polysubstance Is this a current diagnosis for this admission?: Yes Plan: Patient admits to THC Cessation encouraged. (10) Seizure disorder Is this a current diagnosis for this admission?: Yes Plan: Continue home dose Keppra. - Time Time Spent with patient: 25-34 minutes Medications reviewed and adjusted accordingly: Yes Anticipated discharge: Home Within: within 24 hours
[2019-07-11] MEDS: ATORVASTATIN CALCIUM 20 MG TABLET PO SCH (21:45)
[2019-07-11] MEDS ORDERED: INSULIN GLARGINE,HUM.REC.ANLOG 1,000 UNIT/10 ML VIAL SUBCUT SCH (22:00)
[2019-07-12] MEDS: MAG HYDROX/AL HYDROX/SIMETH SUSP 30 ML UDCUP PO PRN (05:20)
[2019-07-12] MEDS: METOCLOPRAMIDE HCL ORAL SOLN 10 MG/10 ML UDCUP PO PRN (05:20)
[2019-07-12] MEDS: PANTOPRAZOLE SODIUM 40 MG TABLET.DR PO SCH ×2 (05:20→17:05)
[2019-07-12] MEDS: LIDOCAINE 2% VISCOUS SOLN 15 ML UDCUP PO PRN (05:20)
[2019-07-12 06:05] LABS: ANION GAP 5 (5-19); BLOOD UREA NITROGEN 22 mg/dL (7-20); CALCIUM 8.9 mg/dL (8.4-10.2); CARBON DIOXIDE 25 mmol/L (22-30); CHLORIDE 103 mmol/L (98-107); GLUCOSE 282 mg/dL (75-110); POTASSIUM 5.2 mmol/L (3.6-5.0)
[2019-07-12] MEDS: OXYCODONE-ACETAMINOPHEN 5-325 MG TABLET PO PRN (06:05)
[2019-07-12] MEDS ORDERED: LACTULOSE SYRUP 20 GM/30 ML UDCUP PO ONE (08:03)
[2019-07-12] MEDS: INSULIN LISPRO 100 UNIT/ML 3 ML VIAL SUBCUT SCH ×4 (08:20→22:14)
[2019-07-12] MEDS: LIPASE/PROTEASE/AMYLASE 1 CAP CAPSULE.DR PO SCH ×2 (08:21→17:05)
[2019-07-12] MEDS: SUCRALFATE 1 GM TABLET PO SCH ×4 (08:21→22:13)
[2019-07-12] MEDS ORDERED: OXYCODONE-ACETAMINOPHEN 5-325 MG TABLET PO PRN (09:41)
[2019-07-12] MEDS: LISINOPRIL 10 MG TABLET PO SCH (10:17)
[2019-07-12] MEDS: AMLODIPINE BESYLATE 10 MG TABLET PO SCH (10:17)
[2019-07-12] MEDS: CHLORZOXAZONE 500 MG TABLET PO SCH ×2 (10:18→17:08)
[2019-07-12] MEDS: CARVEDILOL 12.5 MG TABLET PO SCH ×2 (10:18→22:13)
[2019-07-12] MEDS: LEVETIRACETAM 500 MG TABLET PO SCH ×2 (10:18→22:13)
[2019-07-12] MEDS ORDERED: INSULIN GLARGINE,HUM.REC.ANLOG 1,000 UNIT/10 ML VIAL SUBCUT SCH ×2 (11:00→22:00)
--- NOTE | 2019-07-12 14:46 | PDOC PROGRESS REPORT ---
Subjective Progress Note for:: 07/12/19 Subjective:: The patient is a 38-year-old female, well-known to our service, with a past medical history of chronic pancreatitis, gastritis/PUD, uncontrolled insulin- dependent diabetes, tobacco dependence, and substance abuse who was admitted 07/09/2019 for hypoglycemia. Patient was seen on morning rounds. She is found resting in bed on room air. She reports continued intermittent abdominal pain but believes that the GI cocktail works well. Overall, she is feeling improved and is tolerating consistent carb diet well. Unfortunately now with labial blood sugars. She denies fever, chills, chest pain, palpitations, dyspnea, cough. She has no questions or concerns at this time. No questions per nursing. Reason For Visit: HYPOGLYCEMIA Physical Exam Vital Signs: Temp Pulse Resp BP Pulse Ox 98.1 F 87 16 146/87 H 99 07/12/19 11:57 07/12/19 11:57 07/12/19 11:57 07/12/19 11:57 07/12/19 11:57 Intake & Output 07/11/19 07/12/19 07/13/19 06:59 06:59 06:59 Intake Total 1788 1094 Balance 1788 1094 Weight 55.9 kg 56.1 kg General appearance: PRESENT: no acute distress, well-developed, well-nourished Head exam: PRESENT: atraumatic, normocephalic Eye exam: PRESENT: conjunctiva pink, EOMI, PERRLA. ABSENT: scleral icterus Ear exam: PRESENT: normal external ear exam Mouth exam: PRESENT: moist, tongue midline Neck exam: ABSENT: carotid bruit, JVD, lymphadenopathy, thyromegaly Respiratory exam: PRESENT: clear to auscultation teddy. ABSENT: rales, rhonchi, wheezes Cardiovascular exam: PRESENT: RRR. ABSENT: diastolic murmur, rubs, systolic mu rmur Pulses: PRESENT: normal dorsalis pedis pul Vascular exam: PRESENT: normal capillary refill GI/Abdominal exam: PRESENT: normal bowel sounds, soft, tenderness. ABSENT: distended, guarding, mass, organolmegaly, rebound Rectal exam: PRESENT: deferred Extremities exam: PRESENT: full ROM. ABSENT: calf tenderness, clubbing, pedal edema Neurological exam: PRESENT: alert, awake, oriented to person, oriented to place, oriented to time, oriented to situation, CN II-XII grossly intact. ABSENT: motor sensory deficit Psychiatric exam: PRESENT: appropriate affect, normal mood. ABSENT: homicidal ideation, suicidal ideation Skin exam: PRESENT: dry, intact, warm. ABSENT: cyanosis, rash Results Laboratory Results: 07/11/19 06:07 07/12/19 04:48 07/12/19 04:48 Sodium 133.2 L Potassium 5.2 H Chloride 103 Carbon Dioxide 25 Anion Gap 5 BUN 22 H Creatinine 2.06 H Est GFR ( Amer) 33 L Glucose 282 H Calcium 8.9 07/09/19 07/09/19 08:45 08:45 Creatine Kinase 147 H Troponin I < 0.012 Impressions: Chest X-Ray 07/09/19 10:56 IMPRESSION: No acute cardiopulmonary process. Assessment and Plan - Diagnosis (1) Chronic upper abdominal pain Is this a current diagnosis for this admission?: Yes Plan: EGD showed possible mild gastritis; no evidence of ulcers. Biopsies negative for H. pylori. H pylori IgG antibody high; 3.28 Her symptoms improved significantly with trial of GI cocktail. She was discharged on PPI and Carafate. Those are continued this admission. Continue home dose Parafon forte. Continue Pancreaze with meals. Will trial Reglan with meals at discharge; patient may have gastroparesis related to her uncontrolled diabetes. Have advanced to a consistent carb diet. (2) Chronic pancreatitis Qualifiers: Pancreatitis type: unspecified pancreatitis type Qualified Code(s): K86.1 - Other chronic pancreatitis Is this a current diagnosis for this admission?: Yes Plan: Lipase is normal. CT imaging earlier this month benign. Have consulted Dr. Lehman. Appreciate his evaluation and recommendations. Continue home dose Pancreaze (3) Hypoglycemia associated with type 2 diabetes mellitus Is this a current diagnosis for this admission?: Yes Plan: A1c 9.3% (06/06/2019) Lantus 40 units once daily at home; have discontinued. Will start Lantus 10 units qHS; increase to 16 qHS r/t bgl>400 this am. Accu-Cheks before meals and at bedtime with Humalog for sliding scale coverage. Hypoglycemia protocol in place. Will monitor total insulin intake; likely will require additional dose adjustment of her long-acting insulin. (4) RONIT (acute kidney injury) Is this a current diagnosis for this admission?: Yes Plan: Resolved. Now at baseline creatinine. Likely secondary to poor p.o. intake given her chronic abdominal discomfort. Received IV fluids. We will avoid nephrotoxic medications as able. Follow-up chemistry. (5) CKD (chronic kidney disease) Qualifiers: Chronic kidney disease stage: stage 3 (moderate) Qualified Code(s): N18.3 - Chronic kidney disease, stage 3 (moderate) Is this a current diagnosis for this admission?: Yes Plan: Baseline creatinine 2.07 (6) Hyperlipidemia Qualifiers: Hyperlipidemia type: unspecified Qualified Code(s): E78.5 - Hyperlipidemia, unspecified Is this a current diagnosis for this admission?: Yes Plan: Home dose atorvastatin. Advance to cardiac/consistent carb diet once tolerated (7) Hypertension Qualifiers: Hypertension type: essential hypertension Qualified Code(s): I10 - Essential (primary) hypertension Is this a current diagnosis for this admission?: Yes Plan: Blood pressures are well controlled at present. Continue home dose amlodipine, carvedilol, lisinopril. (8) Hypothermia Qualifiers: Encounter type: initial encounter Qualified Code(s): T68.XXXA - Hypothermia, initial encounter Is this a current diagnosis for this admission?: Yes Plan: Resolved. Likely secondary to profound hypoglycemia. (9) Polysubstance Is this a current diagnosis for this admission?: Yes Plan: Patient admits to [facility] Cessation encouraged. (10) Seizure disorder Is this a current diagnosis for this admission?: Yes Plan: Continue home dose Keppra. - Time Time Spent with patient: 25-34 minutes Medications reviewed and adjusted accordingly: Yes Anticipated discharge: Home Within: within 24 hours
[2019-07-12] MEDS: ATORVASTATIN CALCIUM 20 MG TABLET PO SCH (22:13)
[2019-07-13] MEDS: PANTOPRAZOLE SODIUM 40 MG TABLET.DR PO SCH (05:35)
[2019-07-13 07:03] LABS: ANION GAP 7 (5-19); BLOOD UREA NITROGEN 25 mg/dL (7-20); CALCIUM 9.6 mg/dL (8.4-10.2); CARBON DIOXIDE 22 mmol/L (22-30); CHLORIDE 107 mmol/L (98-107); GLUCOSE 166 mg/dL (75-110)
[2019-07-13] MEDS: SUCRALFATE 1 GM TABLET PO SCH (07:25)
[2019-07-13] MEDS: LIDOCAINE 2% VISCOUS SOLN 15 ML UDCUP PO PRN (07:25)
[2019-07-13] MEDS: MAG HYDROX/AL HYDROX/SIMETH SUSP 30 ML UDCUP PO PRN (07:25)
[2019-07-13] MEDS: METOCLOPRAMIDE HCL ORAL SOLN 10 MG/10 ML UDCUP PO PRN (07:25)
[2019-07-13] MEDS: LEVETIRACETAM 500 MG TABLET PO SCH (09:12)
[2019-07-13] MEDS: LISINOPRIL 10 MG TABLET PO SCH (09:12)
[2019-07-13] MEDS: INSULIN LISPRO 100 UNIT/ML 3 ML VIAL SUBCUT SCH (09:12)
[2019-07-13] MEDS: CARVEDILOL 12.5 MG TABLET PO SCH (09:13)
[2019-07-13] MEDS: CHLORZOXAZONE 500 MG TABLET PO SCH (09:13)
[2019-07-13] MEDS: AMLODIPINE BESYLATE 10 MG TABLET PO SCH (09:13)
[2019-07-13] MEDS: LIPASE/PROTEASE/AMYLASE 1 CAP CAPSULE.DR PO SCH (09:13)
[2019-07-13 10:56] VITALS: BP 179/96
--- NOTE | 2019-07-14 07:48 | PDOC DISCHARGE SUMMARY ---
Impression - Admit/DC Date/PCP Admission Date/Primary Care Provider: 07/09/19 12:15 LYNNE OLMEDO Discharge Date: 07/13/19 - Discharge Diagnosis (1) Chronic upper abdominal pain Is this a current diagnosis for this admission?: Yes (2) Chronic pancreatitis Is this a current diagnosis for this admission?: Yes (3) Hypoglycemia associated with type 2 diabetes mellitus Is this a current diagnosis for this admission?: Yes (4) RONIT (acute kidney injury) Is this a current diagnosis for this admission?: Yes (5) CKD (chronic kidney disease) Is this a current diagnosis for this admission?: Yes (6) Hyperlipidemia Is this a current diagnosis for this admission?: Yes (7) Hypertension Is this a current diagnosis for this admission?: Yes (8) Hypothermia Is this a current diagnosis for this admission?: Yes (9) Polysubstance Is this a current diagnosis for this admission?: Yes (10) Seizure disorder Is this a current diagnosis for this admission?: Yes - Additional Information Resuscitation Status: Full Code Discharge Diet: Diabetic Discharge Activity: Activity As Tolerated, Balance Activity w/Rest, Slowly Increase Activity Referrals: [facility] [Provider Group] - 07/16/19 10:45 am (At earliest available appointment for port palcement.) RONALD BARKER FNP-C [Primary Care Provider] - 07/17/19 10:45 am () SHINE LEHMAN MD [ACTIVE STAFF] - 07/20/19 3:15 pm (Follow up next week to review biospy results.) Prescriptions: Lipase/Protease/Amylase [Pancreaze-10 Capsule.] 2 cap PO BIDACBS #180 capsule. Home Medications: Insulin Aspart [Novolog Flexpen] 0 unit SQ .SLIDING SCALE PRN 06/21/19 Amlodipine Besylate [Norvasc 10 mg Tablet] 10 mg PO DAILY 06/27/19 Dicyclomine HCl [Bentyl 10 mg Capsule] 10 mg PO [id number] 06/27/19 Levetiracetam [Keppra 500 mg Tablet] 500 mg PO Q12 06/27/19 Lisinopril 20 mg PO DAILY 06/27/19 Promethazine HCl [Phenergan 25 mg Tablet] 25 mg PO Q6HP PRN MDD 6 TABS 06/27/19 Atorvastatin Calcium [Lipitor 20 mg Tablet] 20 mg PO QHS #30 tablet 06/29/19 Carvedilol [Coreg 12.5 mg Tablet] 12.5 mg PO Q12 #60 tablet 06/29/19 Sucralfate [Carafate 1 gm Tablet] 1 gm PO ACHS #120 tablet 07/08/19 Acetaminophen [Tylenol 325 mg Tablet] 650 mg PO Q4HP PRN 07/09/19 Chlorzoxazone [Parafon Forte Dsc 500 mg Tablet] 500 mg PO BID 07/09/19 Omeprazole 20 mg PO DAILY 07/09/19 Ondansetron [Zofran Odt 4 mg Tablet] 4 mg PO Q4HP PRN 07/09/19 Insulin Glargine,Hum.rec.anlog [Lantus (Pyxis) Insulin 100 Unit/1 ml 10 ml] 16 units SQ QHS #0 07/13/19 Lipase/Protease/Amylase [Pancreaze-10 Capsule.] 2 cap PO BIDACBS #180 capsule. 07/13/19 History of Present Illiness History of Present Illness: Per H&P by Khoa Thakkar PA-C: JJ HOFFMAN is a 38 year old female is into the emergency room with hypoglycemia. Patient has been to the emergency room 14 tabs in the last month mostly for abdominal pain. All by EMS. Patient was admitted it appears as though for 1 of those visits. Last night she was here in the ED at 1944 hrs. and discharged home around 0200. Evidently at the time she left her glucose was around 250 but when they called EMS early this morning her glucose was "12". She reportedly had some sort of seizure and was given IV Keppra in the ER and asked to be admitted for abdominal pain and seizure. According to the chart patient was already on Keppra. Patient's main complaint is usually pancreatitis. She is to be admitted for hypoglycemia, chronic abdominal pain, chronic pancreatitis, failure as an outpatient, diabetes Hospital Course Hospital Course: (1) Chronic upper abdominal pain EGD showed possible mild gastritis; no evidence of ulcers. Biopsies negative for H. pylori. H pylori IgG antibody high; 3.28 Her symptoms improved significantly with trial of GI cocktail. She is discharged on PPI, Carafate, Parafon forte, and Pancreaze with meals. Tolerating a consistent carb diet prior to discharge. (2) Chronic pancreatitis Lipase is normal. CT imaging earlier this month benign. Have consulted Dr. Lehman. Appreciate his evaluation and recommendations. Continue home dose Pancreaze Follow up with Dr. Lehman as outpatient. (3) Hypoglycemia associated with type 2 diabetes mellitus A1c 9.3% (06/06/2019) Lantus 40 units once daily at home; have discontinued. Restarted Lantus at 10 units qHS and gradually increased to 16 units qHS. Provided Accu-Cheks before meals and at bedtime with Humalog for sliding scale coverage. Discussed with patient (and provided written instructions) on how to continue safely titrating her Lantus needs up as her diet changes upon return to home. (4) RONIT (acute kidney injury) Resolved. Now at baseline creatinine. Likely secondary to poor p.o. intake given her chronic abdominal discomfort. Received IV fluids. (5) CKD (chronic kidney disease) Baseline creatinine 2.07 (6) Hyperlipidemia Home dose atorvastatin. (7) Hypertension Blood pressures are well controlled at present. Continue home dose amlodipine, carvedilol, lisinopril. (8) Hypothermia Resolved. Likely secondary to profound hypoglycemia. (9) Polysubstance Patient admits to [facility]C Cessation encouraged. (10) Seizure disorder Continue home dose Keppra. Physical Exam Vital Signs: Temp Pulse Resp BP Pulse Ox 98.0 F 88 19 179/96 H 99 07/13/19 10:50 07/13/19 10:50 07/13/19 10:50 07/13/19 10:50 07/13/19 10:50 Intake & Output 07/13/19 07/14/19 07/15/19 06:59 06:59 06:59 Intake Total 640 Balance 640 Weight 58.1 kg General appearance: PRESENT: no acute distress, well-developed, well-nourished Head exam: PRESENT: atraumatic, normocephalic Eye exam: PRESENT: conjunctiva pink, EOMI, PERRLA. ABSENT: scleral icterus Mouth exam: PRESENT: moist, tongue midline Respiratory exam: PRESENT: clear to auscultation teddy. ABSENT: rales, rhonchi, wheezes Cardiovascular exam: PRESENT: RRR. ABSENT: diastolic murmur, rubs, systolic murmur Pulses: PRESENT: normal dorsalis pedis pul Vascular exam: PRESENT: normal capillary refill GI/Abdominal exam: PRESENT: normal bowel sounds, soft, tenderness. ABSENT: distended, guarding, mass, organolmegaly, rebound Rectal exam: PRESENT: deferred Extremities exam: PRESENT: full ROM. ABSENT: calf tenderness, clubbing, pedal edema Musculoskeletal exam: PRESENT: ambulatory Neurological exam: PRESENT: alert, awake, oriented to person, oriented to place, oriented to time, oriented to situation, CN II-XII grossly intact. ABSENT: motor sensory deficit Psychiatric exam: PRESENT: appropriate affect, normal mood. ABSENT: homicidal ideation, suicidal ideation Skin exam: PRESENT: dry, intact, warm. ABSENT: cyanosis, rash Results Laboratory Results: WBC 6.2 10^3/uL (4.0-10.5) 07/11/19 06:07 RBC 3.39 10^6/uL (3.72-5.28) L 07/11/19 06:07 Hgb 9.8 g/dL (12.0-15.5) L 07/11/19 06:07 Hct 29.2 % (36.0-47.0) L 07/11/19 06:07 MCV 86 fl (80-97) 07/11/19 06:07 MCH 29.0 pg (27.0-33.4) 07/11/19 06:07 MCHC 33.7 g/dL (32.0-36.0) 07/11/19 06:07 RDW 14.9 % (11.5-14.0) H 07/11/19 06:07 Plt Count 301 10^3/uL (150-450) 07/11/19 06:07 Lymph % (Auto) 38.9 % (13-45) 07/09/19 08:45 [place] % (Auto) 7.1 % (3-13) 07/09/19 08:45 Eos % (Auto) 2.0 % (0-6) 07/09/19 08:45 Baso % (Auto) 0.9 % (0-2) 07/09/19 08:45 Absolute Neuts (auto) 2.8 10^3/uL (1.7-8.2) 07/09/19 08:45 Absolute Lymphs (auto) 2.1 10^3/uL (0.5-4.7) 07/09/19 08:45 Absolute Monos (auto) 0.4 10^3/uL (0.1-1.4) 07/09/19 08:45 Absolute Eos (auto) 0.1 10^3/uL (0.0-0.6) 07/09/19 08:45 Absolute Basos (auto) 0.1 10^3/uL (0.0-0.2) 07/09/19 08:45 Seg Neutrophils % 51.1 % (42-78) 07/09/19 08:45 Sodium 135.8 mmol/L (137-145) L 07/13/19 05:53 Potassium 5.0 mmol/L (3.6-5.0) 07/13/19 05:53 Chloride 107 mmol/L (98-107) 07/13/19 05:53 Carbon Dioxide 22 mmol/L (22-30) 07/13/19 05:53 Anion Gap 7 (5-19) 07/13/19 05:53 BUN 25 mg/dL (7-20) H 07/13/19 05:53 Creatinine 1.84 mg/dL (0.52-1.25) H 07/13/19 05:53 Est GFR ( Amer) 37 (>60) L 07/13/19 05:53 Est GFR (MDRD) Non-Af 31 (>60) L 07/13/19 05:53 Glucose 166 mg/dL (75-110) H 07/13/19 05:53 POC Glucose 227 mg/dL (70-110) H 07/13/19 07:37 Calcium 9.6 mg/dL (8.4-10.2) 07/13/19 05:53 Total Bilirubin 0.3 mg/dL (0.2-1.3) 07/09/19 08:45 Direct Bilirubin 0.0 mg/dL (0.0-0.4) 07/09/19 08:45 Neonat Total Bilirubin Not Reportable 07/09/19 08:45 Neonat Direct Bilirubin Not Reportable 07/09/19 08:45 Neonat Indirect Bili Not Reportable 07/09/19 08:45 AST 24 U/L (14-36) 07/09/19 08:45 ALT 16 U/L (<35) 07/09/19 08:45 Alkaline Phosphatase 139 U/L (38-126) H 07/09/19 08:45 Creatine Kinase 147 U/L (30-135) H 07/09/19 08:45 Troponin I < 0.012 ng/mL 07/09/19 08:45 Total Protein 7.7 g/dL (6.3-8.2) 07/09/19 08:45 Albumin 4.4 g/dL (3.5-5.0) 07/09/19 08:45 Lipase 101.2 U/L (23-300) 07/09/19 08:45 Urine Color YELLOW 07/09/19 10:12 Urine Appearance SLIGHTLY-CLOUDY 07/09/19 10:12 Urine pH 6.0 (5.0-9.0) 07/09/19 10:12 Ur Specific [place] 1.015 07/09/19 10:12 Urine Protein 100 mg/dL (NEGATIVE) H 07/09/19 10:12 Urine Glucose (UA) 150 mg/dL (NEGATIVE) H 07/09/19 10:12 Urine Ketones NEGATIVE mg/dL (NEGATIVE) 07/09/19 10:12 Urine Blood SMALL (NEGATIVE) H 07/09/19 10:12 Urine Nitrite NEGATIVE (NEGATIVE) 07/09/19 10:12 Urine Bilirubin NEGATIVE (NEGATIVE) 07/09/19 10:12 Urine Urobilinogen NEGATIVE mg/dL (<2.0) 07/09/19 10:12 Ur Leukocyte Esterase NEGATIVE (NEGATIVE) 07/09/19 10:12 Urine WBC (Auto) 5 /HPF 07/09/19 10:12 Urine RBC (Auto) 2 /HPF 07/09/19 10:12 U Hyaline Cast (Auto) 3 /LPF 07/09/19 10:12 Urine Bacteria (Auto) 3+ /HPF 07/09/19 10:12 Squamous Epi Cells Auto 4 /HPF 07/09/19 10:12 Urine Mucus (Auto) RARE /LPF 07/09/19 10:12 Urine Ascorbic Acid NEGATIVE (NEGATIVE) 07/09/19 10:12 SARS-CoV-2 (PCR) NEGATIVE (NEGATIVE) 07/10/19 12:33 07/09/19 08:45 Troponin I < 0.012 Impressions: Chest X-Ray 07/09/19 10:56 IMPRESSION: No acute cardiopulmonary process. Plan Plan of Treatment: Patient is discharged home in stable condition. Follow up with primary care provider within 1 week. Follow up with Dr. Lehman at the earliest available appointment for chronic pancreatitis and abdominal pain. Follow up with the [facility] for port placement. To titrate (adjust your Lantus) Start taking Lantus 16 units nightly. Check blood sugar as normal. For the next 3 morning/fasting blood sugars; if 2 of the 3 are above 200 and none are below 150, increase Lantus by 2 units to 18. Then take 18 units for the following 3 days and repeat the above steps. Continue this until 2 of the 3 fasting blood sugars are below 200. Then stay at this dose until you see your PCP. Return to the emergency department as needed for concerning symptoms. Time Spent: Greater than 30 Minutes Stroke Is this a Stroke Patient?: No Acute Heart Failure - Is this a Heart Failure Patient?: No
== END 2019-07-13 11:09 | disposition home health service (06) | DRG 439 ==
LOC: ER 08:30 → EH 12:15 → 3S 15:14
PROVIDERS: ADMIT Hospitalist; ATTEND Registered Nurse
PROC: 0DD68ZX Extraction of Stomach, Via Natural or Artificial Opening Endoscopic, Diagnostic (ICD-10-PCS; principal; 2019-07-11 07:30)
DX: K86.1 Other chronic pancreatitis (principal); N17.9 Acute kidney failure, unspecified; E11.649 Type 2 diabetes mellitus with hypoglycemia without coma; K29.70 Gastritis, unspecified, without bleeding; I12.9 Hypertensive chronic kidney disease with stage 1 through stage 4 chronic kidney disease, or unspecified chronic kidney disease; E11.22 Type 2 diabetes mellitus with diabetic chronic kidney disease; N18.3 Chronic kidney disease, stage 3 (moderate); J44.9 Chronic obstructive pulmonary disease, unspecified; E78.00 Pure hypercholesterolemia, unspecified; K21.9 Gastro-esophageal reflux disease without esophagitis; G40.909 Epilepsy, unspecified, not intractable, without status epilepticus; F41.8 Other specified anxiety disorders; R68.0 Hypothermia, not associated with low environmental temperature; F17.210 Nicotine dependence, cigarettes, uncomplicated; Z03.818 Encounter for observation for suspected exposure to other biological agents ruled out; Z79.4 Long term (current) use of insulin; Z79.899 Other long term (current) drug therapy
CPT/HCPCS: 36415; 43239; 71045; 731; 80048; 80053; 81001; 82550; 82962; 83690; 84484; 85025; 85027; 87635; 88305; 88342; 93005; 93010; 96361; 96365; 99291; C9803; J0171; J1200; J1610; J1815; J1953; J2250; J2310; J2405; J2704; J3010; J3490; J7121

== ENCOUNTER 2019-07-19 12:02 | Emergency (ER) | payer MEDICAID ==
--- NOTE | 2019-07-19 12:17 | ER Document Report ---
ED GI/ - General Chief Complaint: Abdominal Pain Stated Complaint: ABDOMINAL PAIN Time Seen by Provider: 07/19/19 12:06 Primary Care Provider: RONALD BARKER FNP-C [Primary Care Provider] - Follow up as needed Notes: CHIEF COMPLAINT: Abdominal pain HPI: History is obtained from the patient and from the records that were reviewed. A 38-year-old female presenting again to the emergency department for abdominal pain mid abdomen. Patient presenting by EMS. Patient states she was just discharged 5 days ago has an appointment with GI tomorrow. States she did have endoscopy while she was in the hospital. No fever. Complains of nausea. States discomfort began again last night. She did not call her PCP for evaluation. Does not remember the medicine she is supposed to be on for her stomach ROS: See HPI - all other systems were reviewed and are otherwise negative Constitutional: no fever Eyes: no drainage, no blurred vision ENT: no runny nose, no sore throat Cardiovascular: no chest pain Resp: no SOB, no cough GI: + vomiting, no diarrhea, + abdominal pain : no dysuria Integumentary: no rash Allergy: no hives Musculoskeletal: no extremity pain or swelling Neurological: no numbness/tingling, no weakness MEDICATIONS: I agree with the patient medications as charted by the RN. ALLERGIES: I agree with the allergies as charted by the RN. PAST MEDICAL HISTORY/PAST SURGICAL HISTORY: Reviewed and agree as charted by RN. SOCIAL HISTORY: Reviewed and agree as charted by RN. FAMILY HISTORY: No significant familial comorbid conditions directly related to patient complaint EXAM: Reviewed vital signs as charted by RN. CONSTITUTIONAL: Alert and oriented and responds appropriately to questions. Well-appearing; well-nourished HEAD: Normocephalic; atraumatic EYES: PERRL; Conjunctivae clear, sclerae non-icteric ENT: normal nose; no rhinorrhea; moist mucous membranes; pharynx without lesions noted, no uvula edema or deviation, no tonsillar hypertrophy, phonation normal NECK: Supple without meningismus; non-tender; no cervical lymphadenopathy, no masses CARD: RRR; no murmurs, no clicks, no rubs, no gallops; symmetric distal pulses RESP: Normal chest excursion without splinting or tachypnea; breath sounds clear and equal bilaterally; no wheezes, no rhonchi, no rales, pulse oximetry 98% on room air not hypoxic ABD/GI: Normal bowel sounds; non-distended; soft, mild tenderness to the mid abdomen on palpation, no rebound, no guarding; no palpable organomegaly or masses. BACK: The back appears normal and is non-tender to palpation, there is no CVA tenderness EXT: Normal ROM in all joints; non-tender to palpation; no cyanosis, no effusions, no edema SKIN: Normal color for age and race; warm; dry; good turgor; no acute lesions noted NEURO: Moves all extremities equally; Motor and sensory function intact PSYCH: The patient's mood and manner are tearful. Grooming and personal hygiene are appropriate. MDM: 38-year-old female presenting again to the emergency department for a bdominal pain. Patient was discharged 5 days ago for same complaint. Has had 14-20 visits in the last 2 months for mostly abdominal pain. Has had multiple imaging modalities including CT scan and ultrasound which did not show any acute findings. Had endoscopy done while in the hospital which showed only mild gastritis postoperatively. Given all of the recent imaging studies that showed only chronic changes we will not reimage unless patient's lab work is significantly abnormal today. Will check basic labs. She has an appointment with GI tomorrow TRAVEL OUTSIDE OF THE [place] IN LAST 30 DAYS: No - Related Data Allergies/Adverse Reactions: hydrocodone [From [place]] Allergy (Verified 06/22/19 03:24) morphine Allergy (Verified 06/22/19 03:24) Penicillins Allergy (Verified 06/22/19 03:24) prednisone Allergy (Verified 06/22/19 03:24) Edema Past Medical History - Social History Smoking Status: Current Every Day Smoker Family History: DM, Hypertension - Past Medical History Cardiac Medical History: Reports: Hx Hypercholesterolemia, Hx Hypertension Denies: Hx Congestive Heart Failure, Hx Heart Attack Pulmonary Medical History: Reports: Hx COPD Neurological Medical History: Reports: Hx Seizures Endocrine Medical History: Reports: Hx Diabetes Mellitus Type 2 Renal/ Medical History: Reports: Hx Renal Insufficiency GI Medical History: Reports: Hx Gastroesophageal Reflux Disease, Hx Pancreatitis - Chronic Musculoskeletal Medical History: Reports Hx Musculoskeletal Trauma Skin Medical History: Psychiatric Medical History: Reports: Hx Anxiety, Hx Depression Infectious Medical History: Past Surgical History: Reports: Hx Section - x3, Hx Hysterectomy - Immunizations Immunizations up to date: Yes Hx Diphtheria, Pertussis, Tetanus Vaccination: No Physical Exam - Vital signs Vitals: Temp 98 F 07/19/19 12:02 Course - Re-evaluation Re-evalutation: 07/19/19 12:56 Notified by nursing that patient's blood sugar was 56. She states she did take her insulin today. We will give the 25 1 amp, I have ordered Compazine for nausea if she continues to have nausea they may give patient crackers and orange juice as well. 07/19/19 13:12 Lipase is slightly elevated at 667. Her creatinine is 1.67 also slightly elevated but lower than her normal baseline creatinine. 07/19/19 14:33 Patient has had no vomiting in the emergency department. I spoke with the artur oneal at length about her results. She is positive for marijuana, does state that she does occasionally smoke marijuana. We discussed cyclic vomiting syndrome with marijuana use as this is likely the cause of her symptoms and multiple visits. She has an appointment with gastroenterology tomorrow. She is on Protonix already. Her endoscopy showed only minor gastritis - Vital Signs Vital signs: Temp Pulse Resp BP Pulse Ox 98.0 F 98 168/95 H 100 07/19/19 12:22 07/19/19 12:22 07/19/19 12:22 07/19/19 12:22 - Laboratory Result Diagrams: 07/19/19 12:17 07/19/19 12:17 Laboratory results interpreted by me: 07/19/19 07/19/19 07/19/19 12:17 12:17 12:17 Hgb 11.2 L Hct 32.6 L RDW 15.2 H BUN 32 H Creatinine 1.67 H Est GFR ( Amer) 42 L Est GFR (MDRD) Non-Af 34 L Glucose 57 L POC Glucose Lipase 673.3 H Urine Protein >=500 H Urine Glucose (UA) 150 H Urine Blood SMALL H 07/19/19 13:44 Hgb Hct RDW BUN Creatinine Est GFR ( Amer) Est GFR (MDRD) Non-Af Glucose POC Glucose 204 H Lipase Urine Protein Urine Glucose (UA) Urine Blood Discharge - Discharge Clinical Impression: Cyclic vomiting syndrome, Marijuana use Condition: Stable Disposition: HOME, SELF-CARE Additional Instructions: Stop marijuana use as this is likely contributing to your vomiting episodes. Follow-up with gastroenterology tomorrow as scheduled. Use the Phenergan for any recurrent vomiting issues Prescriptions: Promethazine HCl [Phenergan 25 mg Tablet] 1 tab PO Q6H PRN #10 tablet PRN Reason: Referrals: RONALD BARKER FNP-C [Primary Care Provider] - Follow up as needed SHINE CANTU MD [ACTIVE STAFF] - Follow up as needed
[2019-07-19 12:24] VITALS: BP 168/95
[2019-07-19 12:29] LABS: ABSOLUTE BASOPHILS # (AUTO) 0.1 10^3/uL (0.0-0.2); ABSOLUTE EOSINOPHILS # (AUTO) 0.1 10^3/uL (0.0-0.6); ABSOLUTE MONOCYTES (AUTO) 0.7 10^3/uL (0.1-1.4); BASOPHILS % (AUTO) 1.3 % (0-2); EOSINOPHILS % (AUTO) 0.9 % (0-6); HEMATOCRIT 32.6 % (36.0-47.0); HEMOGLOBIN 11.2 g/dL (12.0-15.5); LYMPHOCYTES % (AUTO) 20.4 % (13-45); MEAN CORPUSCULAR HEMOGLOBIN 29.5 pg (27.0-33.4); MEAN CORPUSCULAR HGB CONC 34.4 g/dL (32.0-36.0); MEAN CORPUSCULAR VOLUME 86 fl (80-97); MONOCYTES % (AUTO) 6.8 % (3-13); PLATELET COUNT 425 10^3/uL (150-450); RED CELL DISTRIBUTION WIDTH 15.2 % (11.5-14.0); SEGMENTED NEUTROPHILS % (AUTO) 70.6 % (42-78); TOTAL CELLS COUNTED % (AUTO) 100 %; WHITE BLOOD COUNT 9.9 10^3/uL (4.0-10.5)
[2019-07-19 12:49] LABS: ALBUMIN 4.7 g/dL (3.5-5.0); ALKALINE PHOSPHATASE 119 U/L (38-126); ANION GAP 9 (5-19); ASPARTATE AMINO TRANSFERASE 21 U/L (14-36); BILIRUBIN,TOTAL 0.6 mg/dL (0.2-1.3); BLOOD UREA NITROGEN 32 mg/dL (7-20); CALCIUM 10.1 mg/dL (8.4-10.2); CARBON DIOXIDE 25 mmol/L (22-30); CHLORIDE 103 mmol/L (98-107); POTASSIUM 4.3 mmol/L (3.6-5.0); TOTAL PROTEIN 8.2 g/dL (6.3-8.2)
[2019-07-19 12:54] LABS: GLUCOSE 57 mg/dL (75-110)
[2019-07-19] MEDS ORDERED: DEXTROSE 50%-WATER 25 GM/50 ML DISP.SYRIN IV ONE (12:55)
[2019-07-19] MEDS ORDERED: PROCHLORPERAZINE EDISYLATE INJ 10 MG/2 ML VIAL IV ONE (12:56)
[2019-07-19 13:01] LABS: APPEARANCE,URINE SLIGHTLY-CLOUDY; BILIRUBIN,URINE NEGATIVE (NEGATIVE); COLOR,URINE YELLOW; GLUCOSE, URINE 150 mg/dL (NEGATIVE); KETONES,URINE NEGATIVE (NEGATIVE); LEUKOCYTE ESTERASE,URINE NEGATIVE (NEGATIVE); NITRITE,URINE NEGATIVE (NEGATIVE); PROTEIN,URINE >=500 mg/dL (NEGATIVE); URINE SPECIFIC GRAVITY 1.012; UROBILINOGEN,URINE NEGATIVE mg/dL (<2.0)
[2019-07-19] MEDS ORDERED: NORMAL SALINE 1000 ML 1,000 ML IV ONE (13:11)
[2019-07-19 14:02] LABS: URINE AMPHETAMINES SCREEN NEGATIVE; URINE BARBITURATES SCREEN NEGATIVE; URINE BENZODIAZEPINES SCREEN NEGATIVE; URINE COCAINE SCREEN NEGATIVE; URINE METHADONE SCREEN NEGATIVE; URINE PHENCYCLIDINE SCREEN NEGATIVE
[2019-07-19 14:07] LABS: URINE MARIJUANA (THC) SCREEN UNCONFIRMED POSITIVE
== END 2019-07-19 15:21 | disposition home or self-care (01) ==
LOC: ER 12:02
DX: R11.15 Cyclical vomiting syndrome unrelated to migraine (principal); F12.10 Cannabis abuse, uncomplicated; R10.9 Unspecified abdominal pain; R11.0 Nausea; F17.200 Nicotine dependence, unspecified, uncomplicated; I10 Essential (primary) hypertension; J44.9 Chronic obstructive pulmonary disease, unspecified; E11.9 Type 2 diabetes mellitus without complications
CPT/HCPCS: 99284; 96361; 96374; 96375; 36415; 82962; 83690; 85025; 80053; 81001; 80307; J3490; J0780; J7030

== ENCOUNTER 2019-07-20 02:20 | Emergency (ER) | payer MEDICAID ==
[2019-07-20] MEDS ORDERED: RINGERS SOLUTION,LACTATED 1,000 ML IV PRN (03:20)
[2019-07-20] MEDS ORDERED: FENTANYL CITRATE INJ/PF 100 MCG/2 ML AMPUL IV ONE (03:52)
[2019-07-20 04:02] LABS: ABSOLUTE BASOPHILS # (AUTO) 0.1 10^3/uL (0.0-0.2); ABSOLUTE EOSINOPHILS # (AUTO) 0.1 10^3/uL (0.0-0.6); ABSOLUTE LYMPHOCYTES (AUTO) 2.5 10^3/uL (0.5-4.7); ABSOLUTE MONOCYTES (AUTO) 0.9 10^3/uL (0.1-1.4); ABSOLUTE NEUT (AUTO) 7.4 10^3/uL (1.7-8.2); BASOPHILS % (AUTO) 0.7 % (0-2); EOSINOPHILS % (AUTO) 0.7 % (0-6); HEMATOCRIT 30.8 % (36.0-47.0); HEMOGLOBIN 10.1 g/dL (12.0-15.5); LYMPHOCYTES % (AUTO) 22.8 % (13-45); MEAN CORPUSCULAR HEMOGLOBIN 28.2 pg (27.0-33.4); MEAN CORPUSCULAR HGB CONC 32.9 g/dL (32.0-36.0); MEAN CORPUSCULAR VOLUME 86 fl (80-97); MONOCYTES % (AUTO) 8.3 % (3-13); PLATELET COUNT 295 10^3/uL (150-450); RED BLOOD COUNT 3.58 10^6/uL (3.72-5.28); SEGMENTED NEUTROPHILS % (AUTO) 67.5 % (42-78); TOTAL CELLS COUNTED % (AUTO) 100 %
[2019-07-20] MEDS ORDERED: PROMETHAZINE HCL INJ 25 MG/1 ML VIAL IV ONE (04:12)
[2019-07-20 04:21] LABS: ALBUMIN 4.1 g/dL (3.5-5.0); ALKALINE PHOSPHATASE 127 U/L (38-126); ANION GAP 8 (5-19); ASPARTATE AMINO TRANSFERASE 19 U/L (14-36); BILIRUBIN,TOTAL 0.4 mg/dL (0.2-1.3); BLOOD UREA NITROGEN 25 mg/dL (7-20); CALCIUM 9.4 mg/dL (8.4-10.2); CARBON DIOXIDE 22 mmol/L (22-30); CHLORIDE 104 mmol/L (98-107); GLUCOSE 168 mg/dL (75-110); POTASSIUM 4.4 mmol/L (3.6-5.0); TOTAL PROTEIN 7.3 g/dL (6.3-8.2)
--- NOTE | 2019-07-20 04:27 | ER Document Report ---
ED General - General Chief Complaint: Abdominal Pain Stated Complaint: ABDOMINAL PAIN Primary Care Provider: RONALD BARKER FNP-C [Primary Care Provider] - Follow up as needed Notes: Patient is a 38-year-old Afro-Macedonian female with a history of remote alcoholism, chronic pancreatitis, daily cannabis use with a history of hyperemesis cannabis and DKA in the past who presents to the emergency department the chief complaint of centralized to epigastric abdominal discomfort that began yesterday. She states is severe and is very tearful. She states this is typical of her episodes of pancreatitis. She is well-known to this facility for this condition. She is poorly compliant and does not often follow- up as recommended with specialty care. She admits to episodes of nausea and vomiting accompanying. Denies any diarrhea or urinary complaints. Denies any fever, known sick contacts or recent travel. TRAVEL OUTSIDE OF THE [place] IN LAST 30 DAYS: No - Related Data Allergies/Adverse Reactions: hydrocodone [From [place]] Allergy (Verified 06/22/19 03:24) morphine Allergy (Verified 06/22/19 03:24) Penicillins Allergy (Verified 06/22/19 03:24) prednisone Allergy (Verified 06/22/19 03:24) Edema Past Medical History - Social History Smoking Status: Current Every Day Smoker Chew tobacco use (# tins/day): No Frequency of alcohol use: None Drug Abuse: Marijuana Family History: DM, Hypertension Patient has homicidal ideation: No - Past Medical History Cardiac Medical History: Reports: Hx Hypercholesterolemia, Hx Hypertension Denies: Hx Congestive Heart Failure, Hx Heart Attack Pulmonary Medical History: Reports: Hx COPD Neurological Medical History: Reports: Hx Seizures Endocrine Medical History: Reports: Hx Diabetes Mellitus Type 2 Renal/ Medical History: Reports: Hx Renal Insufficiency GI Medical History: Reports: Hx Gastroesophageal Reflux Disease, Hx Pancreatitis - Chronic Musculoskeletal Medical History: Reports Hx Musculoskeletal Trauma Skin Medical History: Psychiatric Medical History: Reports: Hx Anxiety, Hx Depression Infectious Medical History: Past Surgical History: Reports: Hx Section - x3, Hx Hysterectomy - Immunizations Immunizations up to date: Yes Hx Diphtheria, Pertussis, Tetanus Vaccination: No Review of Systems - Review of Systems Gastrointestinal: Abdominal pain, Nausea, Vomiting -: Yes All other systems reviewed and negative Physical Exam - Vital signs Vitals: Temp 98.1 F 07/20/19 02:21 - General General appearance: Alert, Anxious In distress: Mild - Respiratory Respiratory status: No respiratory distress Chest status: Nontender Breath sounds: Normal Chest palpation: Normal - Cardiovascular Rhythm: Regular Heart sounds: Normal auscultation - Abdominal Notes: Exam limited due to cooperation. Faint bowel sounds heard throughout in all quadrants. She appears to be tender in every quadrant palpated lightly. - Neurological Neuro grossly intact: Yes Cognition: Normal Orientation: AAOx4 - Psychological Associated symptoms: Agitated, Tearful - Skin Skin Temperature: Warm Skin Moisture: Dry Skin Color: Normal Course - Re-evaluation Re-evalutation: 07/20/19 05:19 Patient's laboratory findings appear to be at baseline for her. Ultrasound showing some pancreatic scarring but otherwise no abscess or cyst formation. Her nausea and vomiting is been well controlled with the Phenergan. She is resting comfortably in the room at this time upon reevaluation with minimal discomfort remaining status post fentanyl. She is received about 500 mL's of normal saline. She is tolerating oral intake well at this time and can continue oral rehydration at home. Recommended clear liquid diet for the next 24 hours. We will give a prescription for Phenergan short course for home. I highly recommended a GI consultation and referral. Recommended she discontinue cannabi s as this could be contributing to her ongoing nausea and vomiting. At this point the patient does not require any further care treatment in the emergency department. She is stable and appropriate for discharge and outpatient follow- up. Advised that she return here or any ER immediately with any new, persistent or worsening symptoms. She verbalized understood and agreed. - Vital Signs Vital signs: Temp Pulse Resp BP Pulse Ox 98.1 F 94 16 157/89 H 100 07/20/19 02:32 07/20/19 02:32 07/20/19 02:32 07/20/19 02:32 07/20/19 02:32 - Laboratory Result Diagrams: 07/20/19 03:45 07/20/19 03:45 Laboratory results interpreted by me: 07/20/19 07/20/19 07/20/19 03:45 03:45 04:30 WBC 11.0 H RBC 3.58 L Hgb 10.1 L Hct 30.8 L RDW 15.0 H Sodium 134.2 L BUN 25 H Creatinine 1.61 H Est GFR ( Amer) 43 L Est GFR (MDRD) Non-Af 36 L Glucose 168 H Alkaline Phosphatase 127 H Lipase 743.1 H Urine Protein 100 H Urine Glucose (UA) >=500 H Urine Ketones TRACE H Urine Blood SMALL H Discharge - Discharge Clinical Impression: Chronic abdominal pain Chronic pancreatitis Qualifiers: Pancreatitis type: unspecified pancreatitis type Qualified Code(s): K86.1 - Other chronic pancreatitis Nausea and vomiting Qualifiers: Vomiting type: unspecified Vomiting Intractability: non-intractable Qualified Code(s): R11.2 - Nausea with vomiting, unspecified Condition: Stable Disposition: HOME, SELF-CARE Instructions: Pancreatitis ([facility]) Additional Instructions: Please follow a clear liquid diet for the next 24 hours and carefully rehydrate with oral fluids. Please follow-up with a mandarin teacher (stomach doctor). You may need to see your primary doctor for referral. Please return here or any ER immediately with any new, persistent or worsening symptoms. Please note marijuana use is likely exacerbating your symptoms and should be discontinued. Referrals: RONALD BARKER FNP-C [Primary Care Provider] - Follow up as needed
[2019-07-20 04:46] LABS: APPEARANCE,URINE SLIGHTLY-CLOUDY; BILIRUBIN,URINE NEGATIVE (NEGATIVE); COLOR,URINE YELLOW; GLUCOSE, URINE >=500 mg/dL (NEGATIVE); KETONES,URINE TRACE mg/dL (NEGATIVE); LEUKOCYTE ESTERASE,URINE NEGATIVE (NEGATIVE); NITRITE,URINE NEGATIVE (NEGATIVE); PROTEIN,URINE 100 mg/dL (NEGATIVE); URINE SPECIFIC GRAVITY 1.012; UROBILINOGEN,URINE NEGATIVE mg/dL (<2.0)
[2019-07-20 05:00] LABS: URINE AMPHETAMINES SCREEN NEGATIVE; URINE BARBITURATES SCREEN NEGATIVE; URINE BENZODIAZEPINES SCREEN NEGATIVE; URINE COCAINE SCREEN NEGATIVE; URINE METHADONE SCREEN NEGATIVE; URINE PHENCYCLIDINE SCREEN NEGATIVE
[2019-07-20 05:03] LABS: URINE MARIJUANA (THC) SCREEN UNCONFIRMED POSITIVE
--- NOTE | 2019-07-20 05:15 | RADIOLOGY REPORT (SQ) ---
EXAM DESCRIPTION: US ABDOMEN LIMITED COMPLETED DATE/TME: 07/20/2019 04:14 CLINICAL HISTORY: 38 years, Female, abd pain, pancreatitis COMPARISON: 06/16/2019 ultrasound TECHNIQUE: Limited right upper quadrant ultrasound LIMITATIONS: None. FINDINGS: The liver is homogenous in echotexture. No gallstones or gallbladder wall thickening. The CBD measures 1 mm in diameter. Multiple calcifications of the pancreas, better seen on prior CT scan. The visualized abdominal aorta, inferior vena cava, right kidney are unremarkable. No ascites IMPRESSION: Pancreatic calcifications better seen on prior CT scan. Remainder is unremarkable copyright 2011 [employer]- All Rights Reserved
[2019-07-20] MEDS ORDERED: FENTANYL CITRATE INJ/PF 100 MCG/2 ML AMPUL IM ONE (05:24)
[2019-07-20 06:20] VITALS: BP 188/88
== END 2019-07-20 06:33 | disposition home or self-care (01) ==
LOC: ER 02:20
DX: K86.1 Other chronic pancreatitis (principal); R10.9 Unspecified abdominal pain; G89.29 Other chronic pain; R11.2 Nausea with vomiting, unspecified; Z88.8 Allergy status to other drugs, medicaments and biological substances; Z88.0 Allergy status to penicillin; F17.200 Nicotine dependence, unspecified, uncomplicated; I10 Essential (primary) hypertension; J44.9 Chronic obstructive pulmonary disease, unspecified; E11.9 Type 2 diabetes mellitus without complications
CPT/HCPCS: 99284; 96372; 96361; 96374; 96375; 36415; 80307 ×2; 83690; 85025; 81025; 80053; 81001; 76705; J3010; J2550; J7120

== ENCOUNTER 2019-07-20 18:00 | Inpatient (IN) | payer MEDICAID ==
[2019-07-20] MEDS ORDERED: NORMAL SALINE 1000 ML 1,000 ML IV ONE (19:17)
--- NOTE | 2019-07-20 19:24 | ER Document Report ---
ED General - General Chief Complaint: Probable Seizure Stated Complaint: SEIZURE Time Seen by Provider: 07/20/19 18:16 Primary Care Provider: RONALD BARKER FNP-C [Primary Care Provider] - Follow up as needed TRAVEL OUTSIDE OF THE [place] IN LAST 30 DAYS: No - HPI Notes: Patient is a 38-year-old female presents to the emergency department for evaluation of seizure, abdominal pain, elevated blood sugar. She states that she took her insulin appropriately, but her blood sugars were very high today. She has abdominal pain, that she describes as a cramping and stabbing at the s tani time. Is very similar to the chronic abdominal pain she has had. She had nausea with 6 episodes of nonbloody, nonbilious emesis. The patient also relates she had a seizure. She has a history of seizure disorder. It was witnessed by her son. She states she took her Keppra last night, did not take her dose this morning. Normal bowel movement earlier today. No dysuria, hematuria. - Related Data Allergies/Adverse Reactions: hydrocodone [From [place]] Allergy (Verified 06/22/19 03:24) morphine Allergy (Verified 06/22/19 03:24) Penicillins Allergy (Verified 06/22/19 03:24) prednisone Allergy (Verified 06/22/19 03:24) Edema Home Medications: Sucralfate 1 g with meals, omeprazole 20 mg daily, Keppra 500 mg twice daily, amlodipine 10 mg daily, Coreg 12-1/2 mg twice daily, atorvastatin 20 mg daily, Zofran as needed, Lantus and Humalog per sliding scale Past Medical History - General Information source: Patient - Social History Smoking Status: Current Every Day Smoker Family History: DM, Hypertension Patient has homicidal ideation: No - Past Medical History Cardiac Medical History: Reports: Hx Hypercholesterolemia, Hx Hypertension Denies: Hx Congestive Heart Failure, Hx Heart Attack Pulmonary Medical History: Reports: Hx COPD Neurological Medical History: Reports: Hx Seizures Endocrine Medical History: Reports: Hx Diabetes Mellitus Type 1 Renal/ Medical History: Reports: Hx Renal Insufficiency GI Medical History: Reports: Hx Gastroesophageal Reflux Disease, Hx Pancreatitis - Chronic Musculoskeletal Medical History: Reports Hx Musculoskeletal Trauma Skin Medical History: Psychiatric Medical History: Reports: Hx Anxiety, Hx Depression Infectious Medical History: Past Surgical History: Reports: Hx Section - x3, Hx Hysterectomy - Immunizations Immunizations up to date: Yes Hx Diphtheria, Pertussis, Tetanus Vaccination: No Review of Systems - Review of Systems Constitutional: See HPI Gastrointestinal: See HPI Neurological/Psychological: See HPI -: Yes All other systems reviewed and negative Physical Exam - Vital signs Vitals: Resp BP Pulse Ox 25 H 137/81 H 100 07/20/19 18:02 07/20/19 18:02 07/20/19 18:02 - Notes Notes: This is a 38-year-old female who appears her stated age, in a moderate amount of distress. She is rolling around on the bed intermittently. Vital signs reviewed, please refer to chart. Head is normocephalic, atraumatic. Pupils eq ual round, reactive to light. Neck is supple without meningismus. Heart is tachycardic with normal S1, S2. Lungs are clear to auscultation bilaterally. Abdomen is globally tender without rebound or guarding, normoactive bowel sounds throughout. Extremities without cyanosis, clubbing. Posterior calves are nontender. Peripheral pulses are equal. Skin is warm and dry. Patient is awake, alert, neurological exam is nonfocal. Course - Re-evaluation Re-evalutation: 07/20/19 21:47 Patient presented to the emergency department for evaluation of possible seizure, elevated blood glucose, abdominal pain. The patient was tachycardic, hypertensive. Multiple attempts were made to establish an IV peripherally. They were unsuccessful until 1 peripheral IV was obtained. She had a small amount of fluid infused and then the IV infiltrated. Patient refused any further lab stick. Decision was made to proceed with central line. Patient was hesitant but eventually did agree. The procedure was explained in great detail, questions were sought and answered. Consent was signed and placed on the chart. Please see separate procedure note. Blood was obtained through nursing and will be sent to the lab. 07/20/19 22:46 Patient's blood pressure was markedly elevated through a large part of her stay here. I did check back, she is usually better controlled. I had initially ordered IV labetalol. On recheck, prior to receiving the labetalol, the patient's blood pressure was 124/87. Verbal order given to nurse to hold the labetalol at this time. 07/20/19 22:50 Patient's bicarb is low, her gap is high, her findings are consistent with DKA. Patient will be started on insulin drip, I will contact Dr. Frankel for admissio n. 07/20/19 22:54 Dr. Frankel will accept the patient for further care. - Vital Signs Vital signs: Temp Pulse Resp BP Pulse Ox 98.8 F 126 H 28 H 200/115 H 100 07/20/19 21:09 07/20/19 21:09 07/20/19 21:09 07/20/19 20:47 07/20/19 21:09 - Laboratory Result Diagrams: 07/20/19 22:03 07/20/19 22:03 Laboratory results interpreted by me: 07/20/19 07/20/19 07/20/19 22:03 22:03 22:03 WBC 14.1 H RBC 3.58 L Hgb 10.2 L Hct 31.2 L RDW 15.7 H Lymph % (Auto) 7.4 L Absolute Neuts (auto) 12.6 H Seg Neutrophils % 89.1 H VBG pCO2 24.2 L VBG HCO3 12.2 L Sodium 135.8 L Carbon Dioxide 13 L Anion Gap 25 H BUN 33 H Creatinine 2.17 H Est GFR ( Amer) 31 L Est GFR (MDRD) Non-Af 25 L Glucose 467 H* Alkaline Phosphatase 136 H Lipase Urine Protein Urine Glucose (UA) Urine Ketones Urine Blood 07/20/19 07/20/19 22:03 22:13 WBC RBC Hgb Hct RDW Lymph % (Auto) Absolute Neuts (auto) Seg Neutrophils % VBG pCO2 VBG HCO3 Sodium Carbon Dioxide Anion Gap BUN Creatinine Est GFR ( Amer) Est GFR (MDRD) Non-Af Glucose Alkaline Phosphatase Lipase 565.6 H Urine Protein >=500 H Urine Glucose (UA) >=500 H Urine Ketones 80 H Urine Blood MODERATE H - EKG Interpretation by Me Additional EKG results interpreted by me: 07/20/19 22:51 Sinus tachycardia with a rate of 116 bpm. Normal axis and intervals. No acute ST changes concerning for ischemia or infarction. Procedures - Central Line Right Femoral Consent obtained: Yes Central line pre-insertion: Sterile PPE donned, Chloraprep applied Central line lumen type: Triple Anesthetic type: 1% Lidocaine mL's of anesthesia: 4 Ultrasound guided: Yes Central line post-insertion: Blood return from lumens, Biopatch applied, Sut ured, Sterile dressing applied Number of attempts: 2 Notes: 07/20/19 21:51 The area was prepped and draped in usual sterile fashion. Using sterile technique, ultrasound vascular probe was used to identify the femoral artery and the femoral vein. They were intimately related throughout the course in the proximal thigh. The area was anesthetized initially with approximately 2 cc of 1% lidocaine. Finder needle was advanced, under ultrasound guidance, but initial cannulation was arterial. The needle was withdrawn and pressure applied. Adequate hemostasis was achieved. A second attempt was made at the same right femoral site. Under direct ultrasound guidance, the femoral vein was cannulated. The flow was nonpulsatile, blood was dark. The guidewire was advanced. Using a 10 blade a small jennifer was placed at the skin. A dilator was passed without difficulty. The triple-lumen central line, which had previously been flushed with saline, was advanced across the guidewire. All 3 lm were checked, good blood return and flow was obtained. The central line was secured in place with sutures. Biopatch was applied. Sterile dressing applied as well. Patient tolerated the procedure well. Discharge - Discharge Clinical Impression: DKA (diabetic ketoacidoses), Acute kidney injury Condition: Stable Disposition: ADMITTED INPATIENT Admitting Provider: Jostin (Hospitalist) Unit Admitted: Telemetry Referrals: RONALD BARKER FNP-C [Primary Care Provider] - Follow up as needed
[2019-07-20] MEDS ORDERED: PROMETHAZINE HCL INJ 25 MG/1 ML VIAL IV ONE (20:19)
[2019-07-20] MEDS ORDERED: HYDROMORPHONE HCL INJ/PF 2 MG/ML AMPULE IV ONE (21:48)
[2019-07-20 22:24] LABS: VENOUS BLOOD BASE EXCESS -12.4 mmol/L; VENOUS BLOOD HCO3 12.2 mmol/L (20-32); VENOUS BLOOD PCO2 24.2 mmHg (35-63); VENOUS BLOOD PH 7.32 (7.30-7.42)
[2019-07-20 22:26] LABS: ABSOLUTE MONOCYTES (AUTO) 0.5 10^3/uL (0.1-1.4); ABSOLUTE NEUT (AUTO) 12.6 10^3/uL (1.7-8.2); BASOPHILS % (AUTO) 0.1 % (0-2); HEMATOCRIT 31.2 % (36.0-47.0); HEMOGLOBIN 10.2 g/dL (12.0-15.5); LYMPHOCYTES % (AUTO) 7.4 % (13-45); MEAN CORPUSCULAR HEMOGLOBIN 28.4 pg (27.0-33.4); MEAN CORPUSCULAR HGB CONC 32.6 g/dL (32.0-36.0); MEAN CORPUSCULAR VOLUME 87 fl (80-97); MONOCYTES % (AUTO) 3.4 % (3-13); PLATELET COUNT 372 10^3/uL (150-450); RED BLOOD COUNT 3.58 10^6/uL (3.72-5.28); RED CELL DISTRIBUTION WIDTH 15.7 % (11.5-14.0); SEGMENTED NEUTROPHILS % (AUTO) 89.1 % (42-78); TOTAL CELLS COUNTED % (AUTO) 100 %; WHITE BLOOD COUNT 14.1 10^3/uL (4.0-10.5)
[2019-07-20] MEDS ORDERED: LABETALOL HCL INJ 20 MG/4 ML DISP.SYRIN IV ONE (22:30)
[2019-07-20 22:33] LABS: APPEARANCE,URINE CLEAR; BILIRUBIN,URINE NEGATIVE (NEGATIVE); COLOR,URINE STRAW; GLUCOSE, URINE >=500 mg/dL (NEGATIVE); KETONES,URINE 80 mg/dL (NEGATIVE); LEUKOCYTE ESTERASE,URINE NEGATIVE (NEGATIVE); NITRITE,URINE NEGATIVE (NEGATIVE); PROTEIN,URINE >=500 mg/dL (NEGATIVE); URINE SPECIFIC GRAVITY 1.016; UROBILINOGEN,URINE NEGATIVE mg/dL (<2.0)
[2019-07-20 22:34] LABS: ALBUMIN 4.5 g/dL (3.5-5.0); ALKALINE PHOSPHATASE 136 U/L (38-126); ASPARTATE AMINO TRANSFERASE 18 U/L (14-36); BILIRUBIN,DIRECT 0.1 mg/dL (0.0-0.4); BILIRUBIN,TOTAL 0.5 mg/dL (0.2-1.3); BLOOD UREA NITROGEN 33 mg/dL (7-20); CALCIUM 9.5 mg/dL (8.4-10.2); POTASSIUM 4.8 mmol/L (3.6-5.0); TOTAL PROTEIN 7.4 g/dL (6.3-8.2)
[2019-07-20 22:39] LABS: CHLORIDE 98 mmol/L (98-107)
[2019-07-20 22:40] LABS: ALCOHOL < 10 mg/dL (NONE DETECTED)
[2019-07-20 22:42] LABS: ANION GAP 25 (5-19); CARBON DIOXIDE 13 mmol/L (22-30)
[2019-07-20 22:44] LABS: GLUCOSE 467 mg/dL (75-110)
[2019-07-20] MEDS ORDERED: NORMAL SALINE 100 ML with INSULIN REGULAR, HUMAN 100 UNIT IV PRN ×4 (22:47→22:59)
[2019-07-20 22:48] LABS: URINE AMPHETAMINES SCREEN NEGATIVE; URINE BARBITURATES SCREEN NEGATIVE; URINE BENZODIAZEPINES SCREEN NEGATIVE; URINE COCAINE SCREEN NEGATIVE; URINE METHADONE SCREEN NEGATIVE; URINE PHENCYCLIDINE SCREEN NEGATIVE
[2019-07-20 22:57] LABS: URINE MARIJUANA (THC) SCREEN UNCONFIRMED POSITIVE
[2019-07-20] MEDS ORDERED: INSULIN REG, HUMAN 100 UNIT/ML 3 ML VIAL (PYX) ONE (22:58)
[2019-07-20] MEDS ORDERED: ACETAMINOPHEN 325 MG TABLET PO PRN (22:59)
[2019-07-20] MEDS ORDERED: DEXTROSE 40% GEL 15 GM TUBE PO PRN ×2 (22:59)
[2019-07-20] MEDS ORDERED: GLUCAGON,HUMAN RECOMB 1 MG INJ IM PRN (22:59)
[2019-07-20] MEDS ORDERED: DEXTROSE 50%-WATER 25 GM/50 ML DISP.SYRIN IV PRN ×2 (22:59)
[2019-07-20] MEDS ORDERED: IPRATROPIUM/ALBUTEROL 0.5-2.5 MG/3 ML AMPUL NEB PRN (22:59)
[2019-07-20] MEDS ORDERED: MAG HYDROX/AL HYDROX/SIMETH SUSP 30 ML UDCUP PO PRN (22:59)
[2019-07-20] MEDS: NORMAL SALINE 1000 ML 1,000 ML IV PRN (23:00)
[2019-07-21] MEDS: NORMAL SALINE 1000 ML 1,000 ML IV PRN ×3 (01:43→22:26)
[2019-07-21] MEDS ORDERED: LEVETIRACETAM 500 MG TABLET PO ONE (03:00)
[2019-07-21] MEDS ORDERED: AMLODIPINE BESYLATE 10 MG TABLET PO ONE (03:10)
[2019-07-21] MEDS ORDERED: CARVEDILOL 12.5 MG TABLET PO ONE (03:10)
[2019-07-21] MEDS ORDERED: LISINOPRIL 10 MG TABLET PO ONE (03:10)
[2019-07-21] MEDS ORDERED: HYDRALAZINE HCL INJ/PF 20 MG/1 ML SDV IV PRN (03:13)
[2019-07-21 03:22] LABS: ANION GAP 8 (5-19); BLOOD UREA NITROGEN 32 mg/dL (7-20); CALCIUM 7.5 mg/dL (8.4-10.2); CARBON DIOXIDE 17 mmol/L (22-30); CHLORIDE 114 mmol/L (98-107); GLUCOSE 159 mg/dL (75-110); POTASSIUM 3.9 mmol/L (3.6-5.0)
[2019-07-21] MEDS: POTASSI CL 20 MEQ/D5-1/2NS 1L 1000 ML IV PRN ×2 (04:19→09:36)
[2019-07-21] MEDS: HEPARIN SOD (PORCINE) 5,000 UNIT/ML 1 ML VIAL SUBCUT SCH ×4 (05:54→22:25)
--- NOTE | 2019-07-21 06:08 | PDOC H&P ---
History of Present Illness Admission Date/PCP: 07/20/19 23:18 LYNNE OLMEDO Patient complains of: Abdominal pain History of Present Illness: JJ HOFFMAN is a 38 year old female with a past medical history of insulin- dependent diabetes, recurrent DKA, seizure disorder, alcohol, tobacco, THC dependence, chronic pancreatitis, cannabis hyperemesis syndrome relieved by hot showers. She presents with uncontrolled hyperglycemia, abdominal pain, nausea and vomiting of gastric content. She denies recent change of insulin but cannot recall her dose and admits to running out of Keppra. She continues to smoke cannabis daily. In the emergency department she is found to have acidosis with hyperglycemia. She started on IV fluids and insulin referred to the hospitalist for admission. Unchanged from previous exam reveals guarding of the abdominal wall with light touch with my stethoscope. EGD 10 days ago revealed gastritis with negative biopsies. Past Medical History Cardiac Medical History: Reports: Hyperlipidema, Hypertension Denies: Congestive Heart Failure, Myocardial Infarction Pulmonary Medical History: Reports: Chronic Obstructive Pulmonary Disease (COPD) Neurological Medical History: Reports: Seizures Endocrine Medical History: Reports: Diabetes Mellitus Type 1, Diabetes Mellitus Type 2 Renal/ Medical History: GI Medical History: Reports: Gastroesophageal Reflux Disease Musculoskeltal Medical History: Skin Medical History: Psychiatric Medical History: Reports: Alcohol Dependency, Depression, General Anxiety Disorder, Substance Abuse, Tobacco Dependency Hematology: Reports: Anemia Denies: Bleeding Tendencies Past Surgical History Past Surgical History: Reports: Section - x3, Hysterectomy Social History Information Source: Patient, [facility] Records Lives with: Family Smoking Status: Current Every Day Smoker Electronic Cigarette use?: No Last Time Smoked: 07-20-2019 Frequency of Alcohol Use: Social Hx Recreational Drug Use: Yes Drugs: Marijuana Hx Prescription Drug Abuse: No - Advance Directive Resuscitation Status: Full Code Family History Family History: DM, Hypertension Parental Family History Reviewed: Yes Children Family History Reviewed: Yes Sibling(s) Family History Reviewed.: Yes Medication/Allergy Home Medications: Insulin Aspart [Novolog Flexpen] 0 unit SQ .SLIDING SCALE PRN 06/21/19 Amlodipine Besylate [Norvasc 10 mg Tablet] 10 mg PO DAILY 06/27/19 Dicyclomine HCl [Bentyl 10 mg Capsule] 10 mg PO [id number] 06/27/19 Levetiracetam [Keppra 500 mg Tablet] 500 mg PO Q12 06/27/19 Lisinopril 20 mg PO DAILY 06/27/19 Promethazine HCl [Phenergan 25 mg Tablet] 25 mg PO Q6HP PRN MDD 6 TABS 06/27/19 Atorvastatin Calcium [Lipitor 20 mg Tablet] 20 mg PO QHS #30 tablet 06/29/19 Carvedilol [Coreg 12.5 mg Tablet] 12.5 mg PO Q12 #60 tablet 06/29/19 Sucralfate [Carafate 1 gm Tablet] 1 gm PO ACHS #120 tablet 07/08/19 Acetaminophen [Tylenol 325 mg Tablet] 650 mg PO Q4HP PRN 07/09/19 Chlorzoxazone [Parafon Forte Dsc 500 mg Tablet] 500 mg PO BID 07/09/19 Omeprazole 20 mg PO DAILY 07/09/19 Ondansetron [Zofran Odt 4 mg Tablet] 4 mg PO Q4HP PRN 07/09/19 Insulin Glargine,Hum.rec.anlog [Lantus (Pyxis) Insulin 100 Unit/1 ml 10 ml] 16 units SQ QHS #0 07/13/19 Lipase/Protease/Amylase [Pancreaze-10 Capsule.dr] 2 cap PO BIDACBS #180 capsule. 07/13/19 Promethazine HCl [Phenergan 25 mg Tablet] 1 tab PO Q6H PRN #10 tablet 07/19/19 Promethazine HCl [Phenergan 25 mg Tablet] 1 - 2 tab PO Q6H PRN #15 tablet 07/20/19 Allergies/Adverse Reactions: hydrocodone [From [place]] Allergy (Verified 06/22/19 03:24) morphine Allergy (Verified 06/22/19 03:24) Penicillins Allergy (Verified 06/22/19 03:24) prednisone Allergy (Verified 06/22/19 03:24) Edema Review of Systems Constitutional: PRESENT: as per HPI, anorexia, fatigue. ABSENT: fever(s), headache(s), night sweats Eyes: ABSENT: visual disturbances Ears: ABSENT: hearing changes Cardiovascular: ABSENT: chest pain, dyspnea on exertion, edema, orthropnea, palpitations Respiratory: ABSENT: cough, hemoptysis Gastrointestinal: PRESENT: as per HPI, abdominal pain, nausea, vomiting. ABSENT: diarrhea, dysphagia, heartburn Physical Exam Vital Signs: Temp Pulse Resp BP Pulse Ox 97.9 F 103 H 14 132/77 H 100 07/21/19 03:18 07/21/19 03:18 07/21/19 03:18 07/21/19 03:18 07/21/19 03:18 Intake & Output 07/19/19 07/20/19 07/21/19 11:59 11:59 11:59 Intake Total 3023 Balance 3023 Weight 54.8 kg General appearance: PRESENT: no acute distress, cooperative, well-developed, well-nourished Head exam: PRESENT: atraumatic, normocephalic Eye exam: PRESENT: conjunctiva pink, EOMI, PERRLA. ABSENT: scleral icterus Ear exam: PRESENT: normal external ear exam Mouth exam: PRESENT: moist, tongue midline Neck exam: ABSENT: carotid bruit, JVD, lymphadenopathy, thyromegaly Respiratory exam: PRESENT: clear to auscultation teddy. ABSENT: rales, rhonchi, wheezes Cardiovascular exam: PRESENT: RRR. ABSENT: diastolic murmur, rubs, systolic murmur Pulses: PRESENT: normal dorsalis pedis pul Vascular exam: PRESENT: normal capillary refill GI/Abdominal exam: PRESENT: normal bowel sounds, soft. ABSENT: distended, guarding, mass, organolmegaly, rebound, tenderness Rectal exam: PRESENT: deferred Extremities exam: PRESENT: full ROM. ABSENT: calf tenderness, clubbing, pedal edema Neurological exam: PRESENT: alert, awake, oriented to person, oriented to place, oriented to time, oriented to situation, CN II-XII grossly intact. ABSENT: motor sensory deficit Psychiatric exam: PRESENT: appropriate affect, normal mood. ABSENT: homicidal ideation, suicidal ideation Skin exam: PRESENT: dry, intact, warm. ABSENT: cyanosis, rash Results Laboratory Results: 07/20/19 22:03 07/21/19 02:15 07/20/19 07/20/19 07/20/19 22:03 22:03 22:03 WBC 14.1 H RBC 3.58 L Hgb 10.2 L Hct 31.2 L MCV 87 MCH 28.4 MCHC 32.6 RDW 15.7 H Plt Count 372 Seg Neutrophils % 89.1 H VBG pH 7.32 VBG pCO2 24.2 L VBG HCO3 12.2 L VBG Base Excess -12.4 Sodium 135.8 L Potassium 4.8 Chloride 98 Carbon Dioxide 13 L Anion Gap 25 H BUN 33 H Creatinine 2.17 H Est GFR ( Amer) 31 L Glucose 467 H* Calcium 9.5 Magnesium 1.9 Total Bilirubin 0.5 AST 18 Alkaline Phosphatase 136 H Total Protein 7.4 Albumin 4.5 Lipase Serum HCG, Qual Urine Color Urine Appearance Urine pH Ur Specific [place] Urine Protein Urine Glucose (UA) Urine Ketones Urine Blood Urine Nitrite Ur Leukocyte Esterase Urine WBC (Auto) Urine RBC (Auto) 07/20/19 07/20/19 07/20/19 22:03 22:03 22:13 WBC RBC Hgb Hct MCV MCH MCHC RDW Plt Count Seg Neutrophils % VBG pH VBG pCO2 VBG HCO3 VBG Base Excess Sodium Potassium Chloride Carbon Dioxide Anion Gap BUN Creatinine Est GFR ( Amer) Glucose Calcium Magnesium Total Bilirubin AST Alkaline Phosphatase Total Protein Albumin Lipase 565.6 H Serum HCG, Qual NEGATIVE Urine Color STRAW Urine Appearance CLEAR Urine pH 5.0 Ur Specific [place] 1.016 Urine Protein >=500 H Urine Glucose (UA) >=500 H Urine Ketones 80 H Urine Blood MODERATE H Urine Nitrite NEGATIVE Ur Leukocyte Esterase NEGATIVE Urine WBC (Auto) 1 Urine RBC (Auto) 1 07/21/19 02:15 WBC RBC Hgb Hct MCV MCH MCHC RDW Plt Count Seg Neutrophils % VBG pH VBG pCO2 VBG HCO3 VBG Base Excess Sodium 139.2 Potassium 3.9 Chloride 114 H Carbon Dioxide 17 L Anion Gap 8 BUN 32 H Creatinine 1.89 H Est GFR ( Amer) 36 L Glucose 159 H Calcium 7.5 L Magnesium Total Bilirubin AST Alkaline Phosphatase Total Protein Albumin Lipase Serum HCG, Qual Urine Color Urine Appearance Urine pH Ur Specific [place] Urine Protein Urine Glucose (UA) Urine Ketones Urine Blood Urine Nitrite Ur Leukocyte Esterase Urine WBC (Auto) Urine RBC (Auto) Assessment and Plan - Diagnosis (1) DKA (diabetic ketoacidoses) Qualifiers: Diabetes mellitus type: type 1 Is this a current diagnosis for this admission?: Yes Plan: Likely secondary to noncompliance, Heidi Frankel here on side interrupt your ER patient has had some degree of polyuria polydipsia with nausea and uncontrolled hyperglycemia with supporting labs. Patient will receive IV fluids IV insulin serial chemistries every 6 hours for evaluation for electrolyte repletion. Continued evaluation for underlying cause if not found Patient will require diabetic education and consideration of mental health evaluation. (2) Abdominal pain Qualifiers: Is this a current diagnosis for this admission?: Yes Plan: Clearly a chronic psychiatric component given guarding with light touch with stethoscope, although possibly superimposed on gastritis, chronic pancreatitis and diabetic ketoacidosis. Symptomatic management consider Bentyl (3) Acute kidney injury superimposed on CKD Is this a current diagnosis for this admission?: Yes Plan: Appears prerenal complicated by diabetes with noncompliance, avoid nephrotoxic meds and doses IV fluid challenge, follow-up chemistry (4) Anemia Is this a current diagnosis for this admission?: Yes Plan: Denies blood loss or black stools, however likely iron deficiency from extensive phlebotomy given 20+ ER visits in the last 5 months. Follow-up anemia labs (5) Cannabis hyperemesis syndrome concurrent with and due to cannabis abuse Is this a current diagnosis for this admission?: Yes Plan: Multiple attempts of education have been unsuccessful, symptomatic management, consider Bentyl and/or mental health consult - Time Time Spent with patient: 25-34 minutes - Inpatient Certification Medical Necessity: Need Close Monitoring Due to Risk of Patient Decompensation
[2019-07-21] MEDS ORDERED: HALOPERIDOL LACTATE INJ 5 MG/1 ML VIAL IV ONE (06:30)
[2019-07-21] MEDS: PROMETHAZINE HCL 25 MG TABLET PO PRN ×2 (06:39→22:36)
[2019-07-21 06:58] LABS: ALBUMIN 3.5 g/dL (3.5-5.0); ALKALINE PHOSPHATASE 106 U/L (38-126); ANION GAP 6 (5-19); ASPARTATE AMINO TRANSFERASE 16 U/L (14-36); BILIRUBIN,TOTAL 0.4 mg/dL (0.2-1.3); BLOOD UREA NITROGEN 32 mg/dL (7-20); CALCIUM 8.5 mg/dL (8.4-10.2); CARBON DIOXIDE 20 mmol/L (22-30); CHLORIDE 112 mmol/L (98-107); GLUCOSE 112 mg/dL (75-110); POTASSIUM 4.4 mmol/L (3.6-5.0); TOTAL PROTEIN 6.3 g/dL (6.3-8.2)
[2019-07-21] MEDS ORDERED: ONDANSETRON HCL INJ/PF 4 MG/2 ML SDV ONE (09:25)
[2019-07-21] MEDS ORDERED: INSULIN GLARGINE,HUM.REC.ANLOG 1,000 UNIT/10 ML VIAL (PYX) SUBCUT ONE (09:26)
[2019-07-21] MEDS: ONDANSETRON HCL INJ/PF 4 MG/2 ML SDV IV PRN ×2 (09:30→17:53)
--- NOTE | 2019-07-21 09:47 | EKG REPORT ---
SEVERITY:- ABNORMAL ECG - SINUS TACHYCARDIA BIATRIAL ABNORMALITIES LEFT VENTRICULAR HYPERTROPHY : Confirmed by: Ana Borja MD 21-Jul-2019 09:45:25
[2019-07-21] MEDS ORDERED: INSULIN GLARGINE,HUM.REC.ANLOG 1,000 UNIT/10 ML VIAL SUBCUT SCH (10:15)
[2019-07-21] MEDS: HYDROMORPHONE HCL INJ/PF 2 MG/ML AMPULE IV PRN ×3 (10:15→22:33)
[2019-07-21] MEDS: LEVETIRACETAM 500 MG TABLET PO SCH ×2 (10:16→22:18)
[2019-07-21] MEDS: AMLODIPINE BESYLATE 10 MG TABLET PO SCH (10:16)
[2019-07-21] MEDS: CARVEDILOL 12.5 MG TABLET PO SCH ×2 (10:16→22:18)
[2019-07-21] MEDS: LISINOPRIL 10 MG TABLET PO SCH (10:16)
[2019-07-21] MEDS ORDERED: GLUCAGON,HUMAN RECOMB 1 MG INJ IM PRN (10:47)
[2019-07-21] MEDS ORDERED: DEXTROSE 40% GEL 15 GM TUBE PO PRN ×2 (10:47)
[2019-07-21] MEDS ORDERED: DEXTROSE 50%-WATER 25 GM/50 ML DISP.SYRIN IV PRN ×2 (10:47)
--- NOTE | 2019-07-21 11:02 | PDOC PROGRESS REPORT ---
Subjective Progress Note for:: 07/21/19 Subjective:: JJ HOFFMAN is a 38 year old female with a past medical history of insulin- dependent diabetes, recurrent DKA, seizure disorder, alcohol, tobacco, THC dependence, chronic pancreatitis, cannabis hyperemesis syndrome relieved by hot showers. She presents with uncontrolled hyperglycemia, abdominal pain, nausea and vomiting of gastric content. She denies recent change of insulin but cannot recall her dose and admits to running out of KeConmio. She continues to smoke cannabis daily. In the emergency department she is found to have acidosis with hyperglycemia. She started on IV fluids and insulin referred to the hospitalist for admission. Unchanged from previous exam reveals guarding of the abdominal wall with light touch with my stethoscope. EGD 10 days ago revealed gastritis with negative biopsies. 07/21/2019. Patient complaining of persistent abdominal pain 5/5, epigastric, associated with nausea, denies any vomiting, denies any fever, chills, chest pain, diarrhea or constipation. Reason For Visit: DKA Physical Exam Vital Signs: Temp Pulse Resp BP Pulse Ox 98.2 F 105 H 14 190/102 H 100 07/21/19 08:22 07/21/19 08:22 07/21/19 03:18 07/21/19 08:22 07/21/19 08:22 Intake & Output 07/20/19 07/21/19 07/22/19 06:59 06:59 06:59 Intake Total 3127 1000 Output Total 0 Balance 3127 1000 Weight 57.5 kg General appearance: PRESENT: no acute distress, well-developed, well-nourished Head exam: PRESENT: atraumatic, normocephalic Respiratory exam: PRESENT: clear to auscultation teddy. ABSENT: rales, rhonchi, wheezes Cardiovascular exam: PRESENT: RRR. ABSENT: diastolic murmur, rubs, systolic murmur GI/Abdominal exam: PRESENT: normal bowel sounds, soft, tenderness. ABSENT: distended, guarding, mass, organolmegaly, rebound Neurological exam: PRESENT: alert, awake, oriented to person, oriented to place, oriented to time, oriented to situation, CN II-XII grossly intact. ABSENT: motor sensory deficit Results Laboratory Results: 07/20/19 22:03 07/21/19 06:15 07/20/19 07/20/1907/19/20 22:03 22:03 22:03 WBC 14.1 H RBC 3.58 L Hgb 10.2 L Hct 31.2 L MCV 87 MCH 28.4 MCHC 32.6 RDW 15.7 H Plt Count 372 Seg Neutrophils % 89.1 H VBG pH 7.32 VBG pCO2 24.2 L VBG HCO3 12.2 L VBG Base Excess -12.4 Sodium 135.8 L Potassium 4.8 Chloride 98 Carbon Dioxide 13 L Anion Gap 25 H BUN 33 H Creatinine 2.17 H Est GFR ( Amer) 31 L Glucose 467 H* Calcium 9.5 Magnesium 1.9 Total Bilirubin 0.5 AST 18 Alkaline Phosphatase 136 H Total Protein 7.4 Albumin 4.5 Lipase Serum HCG, Qual Urine Color Urine Appearance Urine pH Ur Specific Etlan Urine Protein Urine Glucose (UA) Urine Ketones Urine Blood Urine Nitrite Ur Leukocyte Esterase Urine WBC (Auto) Urine RBC (Auto) 07/20/19 07/20/19 07/20/19 22:03 22:03 22:13 WBC RBC Hgb Hct MCV MCH MCHC RDW Plt Count Seg Neutrophils % VBG pH VBG pCO2 VBG HCO3 VBG Base Excess Sodium Potassium Chloride Carbon Dioxide Anion Gap BUN Creatinine Est GFR ( Amer) Glucose Calcium Magnesium Total Bilirubin AST Alkaline Phosphatase Total Protein Albumin Lipase 565.6 H Serum HCG, Qual NEGATIVE Urine Color STRAW Urine Appearance CLEAR Urine pH 5.0 Ur Specific Etlan 1.016 Urine Protein >=500 H Urine Glucose (UA) >=500 H Urine Ketones 80 H Urine Blood MODERATE H Urine Nitrite NEGATIVE Ur Leukocyte Esterase NEGATIVE Urine WBC (Auto) 1 Urine RBC (Auto) 1 07/21/19 07/21/19 02:15 06:15 WBC RBC Hgb Hct MCV MCH MCHC RDW Plt Count Seg Neutrophils % VBG pH VBG pCO2 VBG HCO3 VBG Base Excess Sodium 139.2 138.2 Potassium 3.9 4.4 Chloride 114 H 112 H Carbon Dioxide 17 L 20 L Anion Gap 8 6 BUN 32 H 32 H Creatinine 1.89 H 1.96 H Est GFR ( Amer) 36 L 35 L Glucose 159 H 112 H Calcium 7.5 L 8.5 Magnesium Total Bilirubin 0.4 AST 16 Alkaline Phosphatase 106 Total Protein 6.3 Albumin 3.5 Lipase Serum HCG, Qual Urine Color Urine Appearance Urine pH Ur Specific Etlan Urine Protein Urine Glucose (UA) Urine Ketones Urine Blood Urine Nitrite Ur Leukocyte Esterase Urine WBC (Auto) Urine RBC (Auto) Assessment and Plan - Diagnosis (1) Abdominal pain Qualifiers: Abdominal location: epigastric Qualified Code(s): R10.13 - Epigastric pain Is this a current diagnosis for this admission?: Yes Plan: Most likely to acute on chronic pancreatitis. History of recurrent chronic pancreatitis. Monitor vitals, symptomatic management. Continue IV fluids, monitor volume status. Monitor electrolytes and replace as needed. Antiemetics. (2) Diabetic ketoacidosis associated with type 2 diabetes mellitus Qualifiers: Diabetes mellitus complication detail: without coma Qualified Code(s): E11.10 - Type 2 diabetes mellitus with ketoacidosis without coma Is this a current diagnosis for this admission?: Yes Plan: History of uncontrolled diabetes due to noncompliance. Diabetic diet, basal, prandial and sliding scale insulin. Hypoglycemic protocol. Diabetic education. (3) Acute kidney injury superimposed on CKD Is this a current diagnosis for this admission?: Yes Plan: Prerenal mostly due to volume depletion caused by nausea vomiting and poor p.o. intake. Monitor electrolytes and volume status. Avoid nephrotoxic meds. Outpatient PCP and nephrology follow-up. (4) Anemia Is this a current diagnosis for this admission?: Yes Plan: Denies blood loss or black stools, however likely iron deficiency from extensive phlebotomy given 20+ ER visits in the last 5 months. Follow-up anemia labs (5) Cannabis hyperemesis syndrome concurrent with and due to cannabis abuse Is this a current diagnosis for this admission?: Yes Plan: Multiple attempts of education have been unsuccessful, symptomatic management, consider Bentyl and/or mental health consult (6) DKA (diabetic ketoacidoses) Qualifiers: Diabetes mellitus type: type 1 Is this a current diagnosis for this admission?: Yes Plan: Resolved. Was started on DKA protocol. Anion gap closed. Likely secondary to noncompliance. Diabetic education. (7) Seizure disorder Is this a current diagnosis for this admission?: Yes Plan: History of seizure disorder. On Keppra. History of noncompliance. Seizure and fall precaution. Aspiration precaution. Resume home meds. Monitor electrolytes and replace as needed.
[2019-07-21] MEDS: INSULIN LISPRO 100 UNIT/ML 3 ML VIAL SUBCUT SCH ×3 (12:36→21:17)
[2019-07-21] MEDS: SUCRALFATE 1 GM TABLET PO SCH ×4 (12:37→22:19)
[2019-07-21] MEDS: PANTOPRAZOLE SODIUM 20 MG TABLET.DR PO SCH (12:37)
[2019-07-21] MEDS: ATORVASTATIN CALCIUM 20 MG TABLET PO SCH (22:18)
[2019-07-22] MEDS: NORMAL SALINE 1000 ML 1,000 ML IV PRN (02:53)
[2019-07-22] MEDS: PROMETHAZINE HCL 25 MG TABLET PO PRN ×3 (05:33→21:37)
[2019-07-22] MEDS: HYDROMORPHONE HCL INJ/PF 2 MG/ML AMPULE IV PRN ×4 (05:34→21:39)
[2019-07-22] MEDS: HEPARIN SOD (PORCINE) 5,000 UNIT/ML 1 ML VIAL SUBCUT SCH ×3 (05:35→21:38)
[2019-07-22 06:08] LABS: ABSOLUTE EOSINOPHILS # (AUTO) 0.1 10^3/uL (0.0-0.6); ABSOLUTE LYMPHOCYTES (AUTO) 2.9 10^3/uL (0.5-4.7); ABSOLUTE MONOCYTES (AUTO) 0.8 10^3/uL (0.1-1.4); ABSOLUTE NEUT (AUTO) 6.7 10^3/uL (1.7-8.2); BASOPHILS % (AUTO) 0.2 % (0-2); EOSINOPHILS % (AUTO) 0.6 % (0-6); HEMATOCRIT 23.4 % (36.0-47.0); MEAN CORPUSCULAR HEMOGLOBIN 29.5 pg (27.0-33.4); MEAN CORPUSCULAR HGB CONC 34.2 g/dL (32.0-36.0); MEAN CORPUSCULAR VOLUME 86 fl (80-97); MONOCYTES % (AUTO) 7.3 % (3-13); PLATELET COUNT 252 10^3/uL (150-450); RED BLOOD COUNT 2.72 10^6/uL (3.72-5.28); RED CELL DISTRIBUTION WIDTH 15.8 % (11.5-14.0); SEGMENTED NEUTROPHILS % (AUTO) 63.9 % (42-78); TOTAL CELLS COUNTED % (AUTO) 100 %; WHITE BLOOD COUNT 10.5 10^3/uL (4.0-10.5)
[2019-07-22 06:34] LABS: ANION GAP 5 (5-19); BLOOD UREA NITROGEN 17 mg/dL (7-20); CALCIUM 8.5 mg/dL (8.4-10.2); CARBON DIOXIDE 18 mmol/L (22-30); CHLORIDE 113 mmol/L (98-107); GLUCOSE 94 mg/dL (75-110)
[2019-07-22] MEDS: INSULIN LISPRO 100 UNIT/ML 3 ML VIAL SUBCUT SCH ×4 (08:30→21:38)
--- NOTE | 2019-07-22 09:27 | PDOC PROGRESS REPORT ---
Subjective Progress Note for:: 07/22/19 Subjective:: JJ HOFFMAN is a 38 year old female with a past medical history of insulin- dependent diabetes, recurrent DKA, seizure disorder, alcohol, tobacco, THC dependence, chronic pancreatitis, cannabis hyperemesis syndrome relieved by hot showers. She presents with uncontrolled hyperglycemia, abdominal pain, nausea and vomiting of gastric content. She denies recent change of insulin but cannot recall her dose and admits to running out of KerSmart. She continues to smoke cannabis daily. In the emergency department she is found to have acidosis with hyperglycemia. She started on IV fluids and insulin referred to the hospitalist for admission. Unchanged from previous exam reveals guarding of the abdominal wall with light touch with my stethoscope. EGD 10 days ago revealed gastritis with negative biopsies. 07/21/2019. Patient complaining of persistent abdominal pain 5/5, epigastric, associated with nausea, denies any vomiting, denies any fever, chills, chest pain, diarrhea or constipation. 07/22/2019. No acute events overnight. Patient still complaining of diffuse abdominal pain worse in the epigastric region but compared to yesterday much improved, patient tolerating clear liquid and wants to advance her diet, is passing flatus but has not had a bowel movement. Denies any chest pain, nausea, vomiting, fever, chills or any urinary symptoms. Possible discharge home tomorrow. Reason For Visit: DKA Physical Exam Vital Signs: Temp Pulse Resp BP Pulse Ox 97.9 F 89 18 140/76 H 100 07/22/19 07:06 07/22/19 07:06 07/22/19 07:06 07/22/19 07:06 07/22/19 07:06 Intake & Output 07/21/19 07/22/19 07/23/19 06:59 06:59 06:59 Intake Total 3127 4245 Output Total 0 1030 Balance 3127 3215 Weight 57.5 kg 60.3 kg General appearance: PRESENT: no acute distress, well-developed, well-nourished Head exam: PRESENT: atraumatic, normocephalic Respiratory exam: PRESENT: clear to auscultation teddy. ABSENT: rales, rhonchi, wheezes Cardiovascular exam: PRESENT: RRR. ABSENT: diastolic murmur, rubs, systolic murmur GI/Abdominal exam: PRESENT: guarding, normal bowel sounds, soft, tenderness. ABSENT: distended, mass, organolmegaly, rebound Neurological exam: PRESENT: alert, awake, oriented to person, oriented to place, oriented to time, oriented to situation, CN II-XII grossly intact. ABSENT: motor sensory deficit Results Laboratory Results: 07/22/19 05:45 07/22/19 05:45 07/22/19 07/22/19 05:45 05:45 WBC 10.5 RBC 2.72 L Hgb 8.0 L D Hct 23.4 L MCV 86 MCH 29.5 MCHC 34.2 RDW 15.8 H Plt Count 252 Seg Neutrophils % 63.9 Sodium 135.7 L Potassium 4.0 Chloride 113 H Carbon Dioxide 18 L Anion Gap 5 BUN 17 Creatinine 1.68 H Est GFR ( Amer) 41 L Glucose 94 Calcium 8.5 Assessment and Plan - Diagnosis (1) Abdominal pain Qualifiers: Abdominal location: epigastric Qualified Code(s): R10.13 - Epigastric pain Is this a current diagnosis for this admission?: Yes Plan: Improving. Most likely to acute on chronic pancreatitis. History of recurrent chronic pancreatitis. Monitor vitals, symptomatic management. Continue IV fluids, monitor volume status. Monitor electrolytes and replace as needed. Antiemetics. (2) Diabetic ketoacidosis associated with type 2 diabetes mellitus Qualifiers: Diabetes mellitus complication detail: without coma Qualified Code(s): E11.10 - Type 2 diabetes mellitus with ketoacidosis without coma Is this a current diagnosis for this admission?: Yes Plan: History of uncontrolled diabetes due to noncompliance. Diabetic diet, basal, prandial and sliding scale insulin. Hypoglycemic protocol. Diabetic education. (3) Acute kidney injury superimposed on CKD Is this a current diagnosis for this admission?: Yes Plan: Creatinine at baseline. Electrolytes WNL. Prerenal mostly due to volume depletion caused by nausea vomiting and poor p.o. intake. Monitor electrolytes and volume status. Avoid nephrotoxic meds. Outpatient PCP and nephrology follow-up. (4) Anemia Qualifiers: Chronic kidney disease stage: stage 3 (moderate) Is this a current diagnosis for this admission?: Yes Plan: H&H stable. Denies blood loss or black stools, however likely iron deficiency from extensive phlebotomy given 20+ ER visits in the last 5 months. Follow-up anemia labs (5) Cannabis hyperemesis syndrome concurrent with and due to cannabis abuse Is this a current diagnosis for this admission?: Yes Plan: Multiple attempts of education have been unsuccessful, symptomatic management, consider Bentyl and/or mental health consult (6) DKA (diabetic ketoacidoses) Qualifiers: Diabetes mellitus type: type 1 Is this a current diagnosis for this admission?: Yes Plan: Resolved. Was started on DKA protocol. Anion gap closed. Likely secondary to noncompliance. Diabetic education. (7) Seizure disorder Is this a current diagnosis for this admission?: Yes Plan: History of seizure disorder. On Keppra. History of noncompliance. Seizure and fall precaution. Aspiration precaution. Resume home meds. Monitor electrolytes and replace as needed.
[2019-07-22] MEDS: LISINOPRIL 10 MG TABLET PO SCH (10:27)
[2019-07-22] MEDS: INSULIN GLARGINE,HUM.REC.ANLOG 1,000 UNIT/10 ML VIAL SUBCUT SCH (10:27)
[2019-07-22] MEDS: LEVETIRACETAM 500 MG TABLET PO SCH ×2 (10:28→21:37)
[2019-07-22] MEDS: PANTOPRAZOLE SODIUM 20 MG TABLET.DR PO SCH (10:28)
[2019-07-22] MEDS: SUCRALFATE 1 GM TABLET PO SCH ×4 (10:28→21:37)
[2019-07-22] MEDS: CARVEDILOL 12.5 MG TABLET PO SCH ×2 (10:29→21:39)
[2019-07-22] MEDS: AMLODIPINE BESYLATE 10 MG TABLET PO SCH (10:36)
--- NOTE | 2019-07-22 11:17 | PSYCHOLOGICAL NOTE ---
Psych Note - Psych Note Date seen by psych provider: 07/21/19 Time seen by psych provider: 07:25 Psych Note: Reason for Consult: Multiple visits/ non-compliance with treatment Clinician impression: euthymic mood with congruent affect poor coping skills ie using hospital stays as a way to get away from family discord reports psychoeconomic stress results in medication noncompliance ie transportation, financial Impression/plan: patient is cleared from acute psychiatric services. Will be submitting a referral to [facility] to assist with reported medication issues.
[2019-07-22] MEDS: ATORVASTATIN CALCIUM 20 MG TABLET PO SCH (21:37)
[2019-07-23] MEDS: PROMETHAZINE HCL 25 MG TABLET PO PRN ×2 (01:37→05:47)
[2019-07-23] MEDS: HYDROMORPHONE HCL INJ/PF 2 MG/ML AMPULE IV PRN ×2 (01:39→05:47)
[2019-07-23] MEDS: HEPARIN SOD (PORCINE) 5,000 UNIT/ML 1 ML VIAL SUBCUT SCH ×3 (05:48→22:35)
[2019-07-23 05:53] LABS: ABSOLUTE EOSINOPHILS # (AUTO) 0.1 10^3/uL (0.0-0.6); ABSOLUTE LYMPHOCYTES (AUTO) 2.5 10^3/uL (0.5-4.7); ABSOLUTE MONOCYTES (AUTO) 0.6 10^3/uL (0.1-1.4); ABSOLUTE NEUT (AUTO) 3.6 10^3/uL (1.7-8.2); BASOPHILS % (AUTO) 0.3 % (0-2); EOSINOPHILS % (AUTO) 2.2 % (0-6); HEMATOCRIT 23.2 % (36.0-47.0); LYMPHOCYTES % (AUTO) 36.4 % (13-45); MEAN CORPUSCULAR HEMOGLOBIN 28.8 pg (27.0-33.4); MEAN CORPUSCULAR HGB CONC 32.6 g/dL (32.0-36.0); MEAN CORPUSCULAR VOLUME 88 fl (80-97); MONOCYTES % (AUTO) 8.4 % (3-13); PLATELET COUNT 231 10^3/uL (150-450); RED BLOOD COUNT 2.62 10^6/uL (3.72-5.28); RED CELL DISTRIBUTION WIDTH 15.5 % (11.5-14.0); SEGMENTED NEUTROPHILS % (AUTO) 52.7 % (42-78); TOTAL CELLS COUNTED % (AUTO) 100 %; WHITE BLOOD COUNT 6.8 10^3/uL (4.0-10.5)
[2019-07-23 05:56] LABS: HEMOGLOBIN 7.6 g/dL (12.0-15.5)
[2019-07-23] MEDS: SUCRALFATE 1 GM TABLET PO SCH ×4 (08:56→22:34)
[2019-07-23] MEDS: INSULIN LISPRO 100 UNIT/ML 3 ML VIAL SUBCUT SCH ×4 (08:57→22:35)
[2019-07-23] MEDS: LEVETIRACETAM 500 MG TABLET PO SCH ×2 (10:17→22:34)
[2019-07-23] MEDS: AMLODIPINE BESYLATE 10 MG TABLET PO SCH (10:17)
[2019-07-23] MEDS: CARVEDILOL 12.5 MG TABLET PO SCH ×2 (10:17→22:34)
[2019-07-23] MEDS: INSULIN GLARGINE,HUM.REC.ANLOG 1,000 UNIT/10 ML VIAL SUBCUT SCH (10:17)
[2019-07-23] MEDS: LISINOPRIL 10 MG TABLET PO SCH (10:18)
[2019-07-23] MEDS: PANTOPRAZOLE SODIUM 20 MG TABLET.DR PO SCH (10:19)
[2019-07-23] MEDS: LIDOCAINE 2% VISCOUS SOLN 15 ML UDCUP PO PRN ×2 (11:36→23:08)
[2019-07-23] MEDS: MAG HYDROX/AL HYDROX/SIMETH SUSP 30 ML UDCUP PO PRN ×2 (11:36→23:08)
[2019-07-23] MEDS: METOCLOPRAMIDE HCL ORAL SOLN 10 MG/10 ML UDCUP PO PRN ×2 (11:36→23:08)
[2019-07-23] MEDS ORDERED: OXYCODONE-ACETAMINOPHEN 5-325 MG TABLET PO PRN (14:55)
--- NOTE | 2019-07-23 14:56 | PDOC PROGRESS REPORT ---
Subjective Progress Note for:: 07/23/19 Subjective:: JJ HOFFMAN is a 38 year old female with a past medical history of insulin- dependent diabetes, recurrent DKA, seizure disorder, alcohol, tobacco, THC dependence, chronic pancreatitis, cannabis hyperemesis syndrome who was admitted for DKA. Patient was seen on morning rounds. She is found sitting up to the edge of bed, comfortably, on room air while preparing to eat her lunch (green-leaf salad with copious dressing). She reports continued abdominal discomfort. However, she notes that this is improved as compared to prior. She reports some relief with GI cocktail this morning. Discussed her home medication regiment; she denies difficulty obtaining her me dications (reports that she was able to fill all prescriptions following her last discharge; does need refill of Keppra). She reports that she was able to titrate up her Lantus as we had discussed during her prior admission. She reports that prior to this admission, she was up to taking 20 units of Lantus daily. She denies significant changes to her diet at home as compared to home in the hospital. Currently, she is feeling well and has no new questions or concerns. She denies fever, chest pain, palpitations, dyspnea, nausea and vomiting. She has no other questions or concerns. Reason For Visit: DKA Physical Exam Vital Signs: Temp Pulse Resp BP Pulse Ox 98.1 F 93 16 141/85 H 100 07/23/19 07:50 07/23/19 07:50 07/23/19 07:50 07/23/19 07:50 07/23/19 07:50 Intake & Output 07/22/19 07/23/19 07/24/19 06:59 06:59 06:59 Intake Total 4245 1380 Output Total 1030 1175 Balance 3215 205 Weight 60.3 kg 59.6 kg General appearance: PRESENT: no acute distress, well-developed, well-nourished Head exam: PRESENT: atraumatic, normocephalic Eye exam: PRESENT: conjunctiva pink, EOMI, PERRLA. ABSENT: scleral icterus Mouth exam: PRESENT: moist, tongue midline Teeth exam: PRESENT: poor dentation Respiratory exam: PRESENT: clear to auscultation teddy. ABSENT: rales, rhonchi, wheezes Cardiovascular exam: PRESENT: RRR. ABSENT: diastolic murmur, rubs, systolic murmur Pulses: PRESENT: normal dorsalis pedis pul Vascular exam: PRESENT: normal capillary refill GI/Abdominal exam: PRESENT: normal bowel sounds, soft, tenderness. ABSENT: distended, guarding, mass, organolmegaly, rebound Rectal exam: PRESENT: deferred Extremities exam: PRESENT: full ROM. ABSENT: calf tenderness, clubbing, pedal edema Neurological exam: PRESENT: alert, awake, oriented to person, oriented to place, oriented to time, oriented to situation, CN II-XII grossly intact. ABSENT: motor sensory deficit Psychiatric exam: PRESENT: appropriate affect, normal mood. ABSENT: homicidal ideation, suicidal ideation Skin exam: PRESENT: dry, intact, warm. ABSENT: cyanosis, rash Results Laboratory Results: 07/23/19 05:15 07/22/19 05:45 07/23/19 05:15 WBC 6.8 RBC 2.62 L Hgb 7.6 L Hct 23.2 L MCV 88 MCH 28.8 MCHC 32.6 RDW 15.5 H Plt Count 231 Seg Neutrophils % 52.7 Assessment and Plan - Diagnosis (1) Abdominal pain Qualifiers: Abdominal location: epigastric Qualified Code(s): R10.13 - Epigastric pain Is this a current diagnosis for this admission?: Yes Plan: Improved; now at baseline. Patient w/ chronic discomfort. Most likely to acute on chronic pancreatitis. History of recurrent chronic pancreatitis. Monitor vitals, symptomatic management. GI cocktail (prior good response) as needed. Encourage p.o. fluids, monitor volume status. Monitor electrolytes and replace as needed. Antiemetics as needed. Will obtain Gastric Emptying study; presumed gastroparesis r/t uncontrolled DM Plan to d/c on Reglan ACHS (2) Cannabis hyperemesis syndrome concurrent with and due to cannabis abuse Is this a current diagnosis for this admission?: Yes Plan: Multiple attempts of education have been unsuccessful, symptomatic management Mental Health consultation has been obtained; appreciate their input. (3) DKA (diabetic ketoacidoses) Qualifiers: Diabetes mellitus type: type 1 Is this a current diagnosis for this admission?: Yes Plan: Resolved. Was started on DKA protocol. Anion gap closed. Likely secondary to noncompliance. Diabetic education. (4) Acute kidney injury superimposed on CKD Is this a current diagnosis for this admission?: Yes Plan: RONIT is resolved. Creatinine at baseline. Electrolytes WNL. Prerenal mostly due to volume depletion caused by nausea vomiting and poor p.o. intake. Monitor electrolytes and volume status. Avoid nephrotoxic meds. Outpatient PCP and nephrology follow-up. (5) Anemia Qualifiers: Anemia type: iron deficiency Is this a current diagnosis for this admission?: Yes Plan: H&H stable. Denies blood loss or black stools, however likely iron deficiency from extensive phlebotomy given 20+ ER visits in the last 5 months. Certainly worsened r/t Hemodilution; patient has received >8L IVF for correction of DKA/RONIT. Follow-up anemia labs (6) Diabetic ketoacidosis associated with type 2 diabetes mellitus Qualifiers: Diabetes mellitus complication detail: without coma Qualified Code(s): E11.10 - Type 2 diabetes mellitus with ketoacidosis without coma Is this a current diagnosis for this admission?: Yes Plan: History of uncontrolled diabetes due to noncompliance. Diabetic diet, basal, prandial and sliding scale insulin. Hypoglycemic protocol. Diabetic education. (7) Seizure disorder Is this a current diagnosis for this admission?: Yes Plan: History of seizure disorder. History of noncompliance. Seizure and fall precaution. Aspiration precaution. Continue home dose Keppra. Monitor electrolytes and replace as needed.
[2019-07-23 15:42] LABS: MEAN CORPUSCULAR HEMOGLOBIN 28.9 pg (27.0-33.4); MEAN CORPUSCULAR HGB CONC 33.6 g/dL (32.0-36.0); MEAN CORPUSCULAR VOLUME 86 fl (80-97); PLATELET COUNT 229 10^3/uL (150-450); RED BLOOD COUNT 2.55 10^6/uL (3.72-5.28); RED CELL DISTRIBUTION WIDTH 15.5 % (11.5-14.0); WHITE BLOOD COUNT 6.5 10^3/uL (4.0-10.5)
[2019-07-23 15:48] LABS: HEMOGLOBIN 7.4 g/dL (12.0-15.5)
[2019-07-23] MEDS: ATORVASTATIN CALCIUM 20 MG TABLET PO SCH (22:34)
[2019-07-24] MEDS: HEPARIN SOD (PORCINE) 5,000 UNIT/ML 1 ML VIAL SUBCUT SCH ×3 (06:02→21:07)
[2019-07-24] MEDS: SUCRALFATE 1 GM TABLET PO SCH ×4 (07:46→21:07)
[2019-07-24 07:58] LABS: HEMOGLOBIN 8.1 g/dL (12.0-15.5); MEAN CORPUSCULAR HEMOGLOBIN 29.2 pg (27.0-33.4); MEAN CORPUSCULAR VOLUME 86 fl (80-97); PLATELET COUNT 222 10^3/uL (150-450); RED BLOOD COUNT 2.79 10^6/uL (3.72-5.28); RED CELL DISTRIBUTION WIDTH 15.8 % (11.5-14.0); WHITE BLOOD COUNT 7.6 10^3/uL (4.0-10.5)
[2019-07-24 08:23] LABS: BLOOD UREA NITROGEN 19 mg/dL (7-20); CALCIUM 8.7 mg/dL (8.4-10.2); CHLORIDE 104 mmol/L (98-107); GLUCOSE 279 mg/dL (75-110); POTASSIUM 4.5 mmol/L (3.6-5.0)
[2019-07-24] MEDS: INSULIN LISPRO 100 UNIT/ML 3 ML VIAL SUBCUT SCH ×4 (08:26→21:07)
[2019-07-24 08:28] LABS: ANION GAP 5 (5-19); CARBON DIOXIDE 25 mmol/L (22-30)
[2019-07-24] MEDS: AMLODIPINE BESYLATE 10 MG TABLET PO SCH (13:11)
[2019-07-24] MEDS: LISINOPRIL 10 MG TABLET PO SCH (13:11)
[2019-07-24] MEDS: CARVEDILOL 12.5 MG TABLET PO SCH ×2 (13:11→21:09)
[2019-07-24] MEDS: LEVETIRACETAM 500 MG TABLET PO SCH ×2 (13:12→21:08)
[2019-07-24] MEDS: PANTOPRAZOLE SODIUM 20 MG TABLET.DR PO SCH (13:12)
[2019-07-24] MEDS: METOCLOPRAMIDE HCL ORAL SOLN 10 MG/10 ML UDCUP PO PRN ×2 (13:16→21:16)
[2019-07-24] MEDS: LIDOCAINE 2% VISCOUS SOLN 15 ML UDCUP PO PRN ×2 (13:16→21:16)
[2019-07-24] MEDS: MAG HYDROX/AL HYDROX/SIMETH SUSP 30 ML UDCUP PO PRN ×2 (13:16→21:15)
[2019-07-24] MEDS: INSULIN GLARGINE,HUM.REC.ANLOG 1,000 UNIT/10 ML VIAL SUBCUT SCH (13:19)
--- NOTE | 2019-07-24 13:58 | RADIOLOGY REPORT (SQ) ---
EXAM DESCRIPTION: NM GASTRIC EMPTYING STUDY IMAGES COMPLETED DATE/TIME: 07/24/2019 1:27 pm REASON FOR STUDY: chronic abd pain; uncontrolled DM COMPARISON: None. RADIONUCLIDE AND DOSE: 2.2 millicuries Tc-99m Sulfur Colloid. A wide variety of solid foods have been used. The route of agent administration: Oral. TECHNIQUE: 1 minute serial static imaging performed at time of meal, 1 hour, 2 hours, 3 hours, and 4 hours as needed. Once stomach reaches 90% emptying, the test is complete. Image intensity values pl otted with respect to time with linear regression algorithm. LIMITATIONS: None. FINDINGS: Patient was observed for 4 hours. Immediate post meal serves as baseline. Gastric emptying at 30 minutes was 21.6%. Gastric emptying at 60 minutes was 38.5% Gastric emptying at 90 minutes was 51.7%. Gastric emptying at 240 minutes was 85.7%. Normal values: 60 minutes: 30-90% retained. If less than 30%, abnormally rapid emptying. If greater than 90%, delaye d gastric emptying. 120 minutes: <60% retained. If greater than 60%, delayed gastric emptying. 240 minutes: <10% retained. If greater than 10%, delayed gastric emptying. IMPRESSION: NORMAL GASTRIC EMPTYING. TECHNICAL DOCUMENTATION: JOB ID: [id number] 2010 [employer]- All Rights Reserved Reading location - IP/workstation name: [email or web address]
--- NOTE | 2019-07-24 17:30 | PDOC DISCHARGE SUMMARY ---
Impression - Admit/DC Date/PCP Admission Date/Primary Care Provider: 07/20/19 23:18 LYNNE OLMEDO Discharge Date: 07/24/19 - Discharge Diagnosis (1) Abdominal pain Is this a current diagnosis for this admission?: Yes (2) Cannabis hyperemesis syndrome concurrent with and due to cannabis abuse Is this a current diagnosis for this admission?: Yes (3) DKA (diabetic ketoacidoses) Is this a current diagnosis for this admission?: Yes (4) Acute kidney injury superimposed on CKD Is this a current diagnosis for this admission?: Yes (5) Anemia Is this a current diagnosis for this admission?: Yes (6) Diabetic ketoacidosis associated with type 2 diabetes mellitus Is this a current diagnosis for this admission?: Yes (7) Seizure disorder Is this a current diagnosis for this admission?: Yes - Additional Information Resuscitation Status: Full Code Discharge Diet: Cardiac, Diabetic Discharge Activity: Activity As Tolerated, Balance Activity w/Rest, Slowly Increase Activity Referrals: RONALD BARKER FNP-C [Primary Care Provider] - 07/30/19 1:30 pm Prescriptions: Pen Needle, Diabetic [1St Tier Unifine Pentips Plus] 1 each MC QHS #30 dis.needle Levetiracetam [Keppra 500 mg Tablet] 500 mg PO Q12 #60 tablet Insulin Glargine,Hum.rec.anlog [Lantus Insulin 100 Unit/mL Insulin Pen] 22 unit SUBCUT QHS #1 pen Amlodipine Besylate [Norvasc 10 mg Tablet] 10 mg PO DAILY #30 tablet Lisinopril [Prinivil 10 mg Tablet] 20 mg PO DAILY #60 tablet Home Medications: Insulin Aspart [Novolog Flexpen] 0 unit SQ .SLIDING SCALE PRN 06/21/19 Atorvastatin Calcium [Lipitor 20 mg Tablet] 20 mg PO QHS #30 tablet 06/29/19 Carvedilol [Coreg 12.5 mg Tablet] 12.5 mg PO Q12 #60 tablet 06/29/19 Sucralfate [Carafate 1 gm Tablet] 1 gm PO ACHS #120 tablet 07/08/19 Omeprazole 20 mg PO DAILY 07/09/19 Acetaminophen [Tylenol 325 mg Tablet] 650 mg PO Q4HP PRN tablet 07/24/19 Amlodipine Besylate [Norvasc 10 mg Tablet] 10 mg PO DAILY #30 tablet 07/24/19 Carvedilol [Coreg 12.5 mg Tablet] 12.5 mg PO Q12 #0 tablet 07/24/19 Insulin Glargine,Hum.rec.anlog [Lantus Insulin 100 Unit/mL Insulin Pen] 22 unit SUBCUT QHS #1 pen 07/24/19 Levetiracetam [Keppra 500 mg Tablet] 500 mg PO Q12 #60 tablet 07/24/19 Lisinopril [Prinivil 10 mg Tablet] 20 mg PO DAILY #60 tablet 07/24/19 Pen Needle, Diabetic [1St Tier Unifine Pentips Plus] 1 each QHS #30 dis.needle 07/24/19 History of Present Illiness History of Present Illness: Per H&P by Dr. Frankel: JJ HOFFMAN is a 38 year old female with a past medical history of insulin-dependent diabetes, recurrent DKA, seizure disorder, alcohol, tobacco, THC dependence, chronic pancreatitis, cannabis hyperemesis syndrome relieved by hot showers. She presents with uncontrolled hyperglycemia, abdominal pain, nausea and vomiting of gastric content. She denies recent change of insulin but cannot recall her dose and admits to running out of Keppra. She continues to smoke cannabis daily. In the emergency department she is found to have acidosis with hyperglycemia. She started on IV fluids and insulin referred to the hospitalist for admission. Unchanged from previous exam reveals guarding of the abdominal wall with light touch with my stethoscope. EGD 10 days ago revealed gastritis with negative biopsies. Hospital Course Hospital Course: (1) Abdominal pain Improved; now at baseline. Patient w/ chronic discomfort. Most likely to acute on chronic pancreatitis. History of recurrent chronic pancreatitis. NM Gastric Emptying Study was normal. Patient was provided symptomatic management with analgesics and antiemetics as needed. She was supported with IV fluids but not tolerating p.o. She now reports that her discomfort has returned to her baseline and she is tolerating a consistent carb diet without increased discomfort. Recommend close GI follow-up. (2) Cannabis hyperemesis syndrome concurrent with and due to cannabis abuse Multiple attempts of education have been unsuccessful, symptomatic management Mental Health consultation has been obtained; appreciate their input. (3) DKA (diabetic ketoacidoses) Resolved. Was started on DKA protocol. Anion gap closed. Likely secondary to noncompliance. Diabetic education. (4) Acute kidney injury superimposed on CKD RONIT is resolved. Creatinine at baseline. Electrolytes WNL. Prerenal mostly due to volume depletion caused by nausea vomiting and poor p.o. intake. Avoid nephrotoxic meds. Outpatient PCP and nephrology follow-up. (5) Anemia H&H stable. Denies blood loss or black stools, however likely iron deficiency from extensive phlebotomy given 20+ ER visits in the last 5 months. Certainly worsened r/t Hemodilution; patient has received >8L IVF for correction of DKA/RONIT. (6) Diabetic ketoacidosis associated with type 2 diabetes mellitus History of uncontrolled diabetes due to noncompliance. Diabetic diet, basal, sliding scale insulin. Hypoglycemic protocol. Diabetic education. (7) Seizure disorder No seizures this admission. History of seizure disorder. History of noncompliance. Seizure and fall precaution. Aspiration precaution. Continue home dose Keppra. Physical Exam Vital Signs: Temp Pulse Resp BP Pulse Ox 98.3 F 98 16 146/91 H 100 07/24/19 08:08 07/24/19 14:00 07/24/19 12:02 07/24/19 12:02 07/24/19 12:02 Intake & Output 07/23/19 07/24/19 07/25/19 06:59 06:59 06:59 Intake Total 1380 1866 Output Total 1175 1000 Balance 205 866 Weight 59.6 kg 60.2 kg General appearance: PRESENT: no acute distress, well-developed, well-nourished Head exam: PRESENT: atraumatic, normocephalic Eye exam: PRESENT: conjunctiva pink, EOMI, PERRLA. ABSENT: scleral icterus Ear exam: PRESENT: normal external ear exam Mouth exam: PRESENT: moist, tongue midline Neck exam: ABSENT: carotid bruit, JVD, lymphadenopathy, thyromegaly Respiratory exam: PRESENT: clear to auscultation teddy. ABSENT: rales, rhonchi, wheezes Cardiovascular exam: PRESENT: RRR. ABSENT: diastolic murmur, rubs, systolic murmur Pulses: PRESENT: normal dorsalis pedis pul Vascular exam: PRESENT: normal capillary refill GI/Abdominal exam: PRESENT: normal bowel sounds, soft. ABSENT: distended, guarding, mass, organolmegaly, rebound, tenderness Rectal exam: PRESENT: deferred Extremities exam: PRESENT: full ROM. ABSENT: calf tenderness, clubbing, pedal edema Neurological exam: PRESENT: alert, awake, oriented to person, oriented to place, oriented to time, oriented to situation, CN II-XII grossly intact. ABSENT: motor sensory deficit Psychiatric exam: PRESENT: appropriate affect, normal mood. ABSENT: homicidal ideation, suicidal ideation Skin exam: PRESENT: dry, intact, warm. ABSENT: cyanosis, rash Results Laboratory Results: WBC 7.6 10^3/uL (4.0-10.5) 07/24/19 07:30 RBC 2.79 10^6/uL (3.72-5.28) L 07/24/19 07:30 Hgb 8.1 g/dL (12.0-15.5) L 07/24/19 07:30 Hct 24.0 % (36.0-47.0) L 07/24/19 07:30 MCV 86 fl (80-97) 07/24/19 07:30 MCH 29.2 pg (27.0-33.4) 07/24/19 07:30 MCHC 34.0 g/dL (32.0-36.0) 07/24/19 07:30 RDW 15.8 % (11.5-14.0) H 07/24/19 07:30 Plt Count 222 10^3/uL (150-450) 07/24/19 07:30 Lymph % (Auto) 36.4 % (13-45) 07/23/19 05:15 [place] % (Auto) 8.4 % (3-13) 07/23/19 05:15 Eos % (Auto) 2.2 % (0-6) 07/23/19 05:15 Baso % (Auto) 0.3 % (0-2) 07/23/19 05:15 Absolute Neuts (auto) 3.6 10^3/uL (1.7-8.2) 07/23/19 05:15 Absolute Lymphs (auto) 2.5 10^3/uL (0.5-4.7) 07/23/19 05:15 Absolute Monos (auto) 0.6 10^3/uL (0.1-1.4) 07/23/19 05:15 Absolute Eos (auto) 0.1 10^3/uL (0.0-0.6) 07/23/19 05:15 Absolute Basos (auto) 0.0 10^3/uL (0.0-0.2) 07/23/19 05:15 Seg Neutrophils % 52.7 % (42-78) 07/23/19 05:15 VBG pH 7.32 (7.30-7.42) 07/20/19 22:03 VBG pCO2 24.2 mmHg (35-63) L 07/20/19 22:03 VBG HCO3 12.2 mmol/L (20-32) L 07/20/19 22:03 VBG Base Excess -12.4 mmol/L 07/20/19 22:03 Sodium 133.8 mmol/L (137-145) L 07/24/19 07:30 Potassium 4.5 mmol/L (3.6-5.0) 07/24/19 07:30 Chloride 104 mmol/L (98-107) 07/24/19 07:30 Carbon Dioxide 25 mmol/L (22-30) 07/24/19 07:30 Anion Gap 5 (5-19) 07/24/19 07:30 BUN 19 mg/dL (7-20) 07/24/19 07:30 Creatinine 1.49 mg/dL (0.52-1.25) H 07/24/19 07:30 Est GFR ( Amer) 47 (>60) L 07/24/19 07:30 Est GFR (MDRD) Non-Af 39 (>60) L 07/24/19 07:30 Glucose 279 mg/dL (75-110) H 07/24/19 07:30 POC Glucose 299 mg/dL (70-110) H 07/24/19 16:02 Calcium 8.7 mg/dL (8.4-10.2) 07/24/19 07:30 Magnesium 1.9 mg/dL (1.6-2.3) 07/20/19 22:03 Total Bilirubin 0.4 mg/dL (0.2-1.3) 07/21/19 06:15 Direct Bilirubin 0.0 mg/dL (0.0-0.4) 07/21/19 06:15 Neonat Total Bilirubin Not Reportable 07/21/19 06:15 Neonat Direct Bilirubin Not Reportable 07/21/19 06:15 Neonat Indirect Bili Not Reportable 07/21/19 06:15 AST 16 U/L (14-36) 07/21/19 06:15 ALT 12 U/L (<35) 07/21/19 06:15 Alkaline Phosphatase 106 U/L (38-126) 07/21/19 06:15 Total Protein 6.3 g/dL (6.3-8.2) 07/21/19 06:15 Albumin 3.5 g/dL (3.5-5.0) 07/21/19 06:15 Lipase 565.6 U/L (23-300) H 07/20/19 22:03 Serum HCG, Qual NEGATIVE (NEGATIVE) 07/20/19 22:03 Urine Color STRAW 07/20/19 22:13 Urine Appearance CLEAR 07/20/19 22:13 Urine pH 5.0 (5.0-9.0) 07/20/19 22:13 Ur Specific [place] 1.016 07/20/19 22:13 Urine Protein >=500 mg/dL (NEGATIVE) H 07/20/19 22:13 Urine Glucose (UA) >=500 mg/dL (NEGATIVE) H 07/20/19 22:13 Urine Ketones 80 mg/dL (NEGATIVE) H 07/20/19 22:13 Urine Blood MODERATE (NEGATIVE) H 07/20/19 22:13 Urine Nitrite NEGATIVE (NEGATIVE) 07/20/19 22:13 Urine Bilirubin NEGATIVE (NEGATIVE) 07/20/19 22:13 Urine Urobilinogen NEGATIVE mg/dL (<2.0) 07/20/19 22:13 Ur Leukocyte Esterase NEGATIVE (NEGATIVE) 07/20/19 22:13 Urine WBC (Auto) 1 /HPF 07/20/19 22:13 Urine RBC (Auto) 1 /HPF 07/20/19 22:13 Squamous Epi Cells Auto 1 /HPF 07/20/19 22:13 Urine Mucus (Auto) RARE /LPF 07/20/19 22:13 Urine Ascorbic Acid NEGATIVE (NEGATIVE) 07/20/19 22:13 Urine Opiates Screen Cancelled 07/20/19 22:03 Urine Opiates Screen NEGATIVE 07/20/19 22:03 Urine Methadone Screen Cancelled 07/20/19 22:03 Urine Methadone Screen NEGATIVE 07/20/19 22:03 Ur Barbiturates Screen Cancelled 07/20/19 22:03 Ur Barbiturates Screen NEGATIVE 07/20/19 22:03 Ur Phencyclidine Scrn Cancelled 07/20/19 22:03 Ur Phencyclidine Scrn NEGATIVE 07/20/19 22:03 Ur Amphetamines Screen Cancelled 07/20/19 22:03 Ur Amphetamines Screen NEGATIVE 07/20/19 22:03 U Benzodiazepines Scrn Cancelled 07/20/19 22:03 U Benzodiazepines Scrn NEGATIVE 07/20/19 22:03 Urine Cocaine Screen Cancelled 07/20/19 22:03 Urine Cocaine Screen NEGATIVE 07/20/19 22:03 U Marijuana (THC) Screen Cancelled 07/20/19 22:03 U Marijuana (THC) Screen UNCONFIRMED POSITIVE 07/20/19 22:03 Serum Alcohol < 10 mg/dL (NONE DETECTED) 07/20/19 22:03 Impressions: Gastric Emptying Nuclear Medicine 07/24/19 08:00 IMPRESSION: NORMAL GASTRIC EMPTYING. Plan Plan of Treatment: Follow up with primary care provider within 1 week. Follow up with Dr. Lehman as previously scheduled. Follow up with the [facility] as previously scheduled. Eat a diabetic diet. Take medications as prescribed. Return to the emergency department as needed for concerning symptoms. Patient is educated on continued titrating her Lantus as below: To titrate (adjust your Lantus) Start taking Lantus 22 units nightly. Check blood sugar as normal. For the next 3 morning/fasting blood sugars; if 2 of the 3 are above 200 and none are below 150, increase Lantus by 2 units to 24. Then take 24 units for the following 3 days and repeat the above steps. Continue this until 2 of the 3 fasting blood sugars are below 200. Then stay at this dose until you see your PCP. Time Spent: Greater than 30 Minutes Stroke Is this a Stroke Patient?: No Acute Heart Failure - Is this a Heart Failure Patient?: No
[2019-07-24] MEDS: ATORVASTATIN CALCIUM 20 MG TABLET PO SCH (21:08)
[2019-07-25] MEDS: MAG HYDROX/AL HYDROX/SIMETH SUSP 30 ML UDCUP PO PRN (03:23)
[2019-07-25] MEDS: LIDOCAINE 2% VISCOUS SOLN 15 ML UDCUP PO PRN (03:23)
[2019-07-25] MEDS: METOCLOPRAMIDE HCL ORAL SOLN 10 MG/10 ML UDCUP PO PRN (03:23)
[2019-07-25] MEDS: HEPARIN SOD (PORCINE) 5,000 UNIT/ML 1 ML VIAL SUBCUT SCH (05:26)
[2019-07-25] MEDS: SUCRALFATE 1 GM TABLET PO SCH ×2 (07:07→11:51)
[2019-07-25] MEDS: INSULIN LISPRO 100 UNIT/ML 3 ML VIAL SUBCUT SCH ×2 (07:55→11:50)
[2019-07-25] MEDS ORDERED: INSULIN LISPRO 100 UNIT/ML 3 ML VIAL SUBCUT ONE ×2 (08:30→10:00)
[2019-07-25] MEDS: CARVEDILOL 12.5 MG TABLET PO SCH (09:51)
[2019-07-25] MEDS: LISINOPRIL 10 MG TABLET PO SCH (09:52)
[2019-07-25] MEDS: INSULIN GLARGINE,HUM.REC.ANLOG 1,000 UNIT/10 ML VIAL SUBCUT SCH (09:52)
[2019-07-25] MEDS: LEVETIRACETAM 500 MG TABLET PO SCH (09:52)
[2019-07-25] MEDS: AMLODIPINE BESYLATE 10 MG TABLET PO SCH (09:52)
[2019-07-25] MEDS: PANTOPRAZOLE SODIUM 20 MG TABLET.DR PO SCH (09:52)
[2019-07-25 11:49] VITALS: BP 138/83
--- NOTE | 2019-07-25 13:05 | Progress Note ---
Provider Note Provider Note: Patient was discharged last night but remained in house due to difficulty obtaining a ride home. This morning received phone call from nursing with report of glucose 486. Advised to administer 16 units Humalog now with follow-up Accu-Chek in 1 hour. Follow-up Accu-Cheks remain elevated at 403. An additional 4 units were provided at that time with follow-up Accu-Chek 1 hour later. Fortunately her glucose is now 250. Nursing was advised to administer Humalog per the standard sliding scale as the patient indicated she intends to eat lunch. Following administration, may discharge the patient to home. Of note, nursing reports that the patient was noncompliant with her diet overnight (popsicles overnight and orange juice this morning despite advisement not to drink it). Patient was not rounded on this morning.
== END 2019-07-25 12:35 | disposition home or self-care (01) | DRG 637 ==
LOC: ER 18:00 → EH 23:18 → 3W 07-21 01:13
PROVIDERS: ADMIT Internal Medicine; ATTEND Registered Nurse
PROC: 06HY33Z Insertion of Infusion Device into Lower Vein, Percutaneous Approach (ICD-10-PCS; principal; 2019-07-20)
DX: E10.10 Type 1 diabetes mellitus with ketoacidosis without coma (principal); K85.90 Acute pancreatitis without necrosis or infection, unspecified; K86.1 Other chronic pancreatitis; N17.9 Acute kidney failure, unspecified; G40.909 Epilepsy, unspecified, not intractable, without status epilepticus; E78.00 Pure hypercholesterolemia, unspecified; I10 Essential (primary) hypertension; J44.9 Chronic obstructive pulmonary disease, unspecified; D50.9 Iron deficiency anemia, unspecified; K29.70 Gastritis, unspecified, without bleeding; K21.9 Gastro-esophageal reflux disease without esophagitis; F41.8 Other specified anxiety disorders; F12.188 Cannabis abuse with other cannabis-induced disorder; F17.210 Nicotine dependence, cigarettes, uncomplicated; Z79.4 Long term (current) use of insulin; Z79.899 Other long term (current) drug therapy; Z91.19 Patient's noncompliance with other medical treatment and regimen
CPT/HCPCS: 36415; 78264; 80048; 80076; 80307; 81001; 82803; 82962; 83690; 83735; 84703; 85025; 85027; 87070; 93005; 93010; 96361; 96374; 96375; 99285; A9541; J0360; J1170; J1630; J1642; J1644; J1815; J2405; J2550; J3480; J3490; J7030

== ENCOUNTER 2019-07-30 07:03 | Day surgery (SDC) | payer MEDICAID ==
[~2019-07-30 07:03] MED LIST: ACETAMINOPHEN 325 MG TABLET PO PRN; CEFAZOLIN 1 GM/D5W RTU 1 GM/50 ML RTUPB IV ONE; CEFAZOLIN 1 GM/D5W RTU 1 GM/50 ML RTUPB IV PRN; LACTATED RINGERS 1000 ML IV PRN
[2019-07-30 08:11] LABS: BLOOD UREA NITROGEN 24 mg/dL (7-20); CALCIUM 8.9 mg/dL (8.4-10.2); CHLORIDE 111 mmol/L (98-107); GLUCOSE 146 mg/dL (75-110); POTASSIUM 4.8 mmol/L (3.6-5.0)
[2019-07-30 08:13] LABS: ABSOLUTE BASOPHILS # (AUTO) 0.1 10^3/uL (0.0-0.2); ABSOLUTE EOSINOPHILS # (AUTO) 0.1 10^3/uL (0.0-0.6); ABSOLUTE LYMPHOCYTES (AUTO) 3.1 10^3/uL (0.5-4.7); ABSOLUTE NEUT (AUTO) 6.3 10^3/uL (1.7-8.2); BASOPHILS % (AUTO) 1.4 % (0-2); EOSINOPHILS % (AUTO) 1.2 % (0-6); HEMATOCRIT 24.6 % (36.0-47.0); HEMOGLOBIN 8.3 g/dL (12.0-15.5); LYMPHOCYTES % (AUTO) 28.7 % (13-45); MEAN CORPUSCULAR HEMOGLOBIN 28.8 pg (27.0-33.4); MEAN CORPUSCULAR HGB CONC 33.7 g/dL (32.0-36.0); MEAN CORPUSCULAR VOLUME 86 fl (80-97); MONOCYTES % (AUTO) 9.4 % (3-13); PLATELET COUNT 365 10^3/uL (150-450); RED BLOOD COUNT 2.87 10^6/uL (3.72-5.28); RED CELL DISTRIBUTION WIDTH 15.8 % (11.5-14.0); SEGMENTED NEUTROPHILS % (AUTO) 59.3 % (42-78); TOTAL CELLS COUNTED % (AUTO) 100 %; WHITE BLOOD COUNT 10.7 10^3/uL (4.0-10.5)
[2019-07-30] MEDS ORDERED: LIDOCAINE 1%/EPINEPHRINE INJ 20 ML VIAL ONE (08:16)
[2019-07-30 08:17] LABS: ANION GAP 4 (5-19); CARBON DIOXIDE 23 mmol/L (22-30)
[2019-07-30] MEDS ORDERED: PROMETHAZINE HCL INJ 25 MG/1 ML VIAL IV PRN ×2 (08:22)
[2019-07-30] MEDS ORDERED: FENTANYL CITRATE INJ/PF 100 MCG/2 ML AMPUL IV PRN ×3 (08:22)
[2019-07-30] MEDS ORDERED: DIPHENHYDRAMINE HCL 50 MG/ML VIAL IV PRN (08:22)
[2019-07-30] MEDS ORDERED: MEPERIDINE HCL/PF INJ 25 MG/1 ML DISP.SYRIN IV PRN (08:22)
[2019-07-30] MEDS ORDERED: FENTANYL CITRATE INJ/PF 100 MCG/2 ML AMPUL ONE (08:31)
[2019-07-30] MEDS ORDERED: MIDAZOLAM 2 MG/2 ML INJ ONE (08:31)
[2019-07-30] MEDS ORDERED: PROPOFOL INJ 200 MG/20 ML VIAL IV ONE (08:32)
--- NOTE | 2019-07-30 09:38 | Discharge Summary ---
Discharge Summary (SDC) - Discharge Final Diagnosis: Recurrent diabetic ketoacidosis Date of Surgery: 07/30/19 Discharge Date: 07/30/19 Condition: Fair Treatment or Instructions: May use catheter; allow Steri-Strips to fall off. Patient to follow-up with [facility] in 2 weeks. May shower in 48 hours. Referrals: RONALD BARKER FNP-C [Primary Care Provider] - Discharge Diet: As Tolerated Discharge Activity: Activity As Tolerated Home Care Assistance: None Needed Report the Following to Your Physician Immediately: Shortness of Breath, Increase in Pain, Fever over 101 Degrees
--- NOTE | 2019-07-30 09:41 | Operative Report ---
Operative Report DATE OF SURGERY: 07/30/19 PREOPERATIVE DIAGNOSIS: Recurrent diabetic ketoacidosis POSTOPERATIVE DIAGNOSIS: Same OPERATION: 1. Ultrasound directed insertion of right internal jugular vein catheter. 2. Placement of single-chamber [id number] right subclavian position. 3. Interpretation of intraoperative fluoroscopy SURGEON: GONZALO DUPONT ANESTHESIA: LMAC TISSUE REMOVED OR ALTERED: None COMPLICATIONS: None ESTIMATED BLOOD LOSS: Scant INTRAOPERATIVE FINDINGS: See below PROCEDURE: Patient was taken to the preop holding area to the main operating where LMAC anesthesia was induced. Arms were tucked, neck and chest wall prepped and draped with Betadine. Surgical plan surgical timeout were conducted. The right neck was scanned with a variable frequency linear transducer. Findings were significant for a patent, compressible right internal jugular vein. The skin was anesthetized 1% plain lidocaine, a jennifer made the skin with a 15 blade, and using the micro needle and wire, the right internal jugular vein was accessed. A suitable site for placement of the port was chosen in the right subclavian position. The skin was anesthetized 1% plain lidocaine, a 3 cm incision was made parallel to the clavicle, using electrocautery, a port pocket was developed large enough to accommodate a dual-chamber port. The catheter was then trimmed to the appropriate length, tunnel between the 2 incisions, attached to the port and secured with the plastic ring. We now switched the micro wire over to a conventional 0.030 guidewire under fluoroscopic guidance. A 9.5 [place] dilator and introducer sheath were threaded over the guidewire, guidewire and dilator removed, and the catheter fragment threaded into the strip away sheath. Fluoroscopically there was no evidence of kinking of the catheter at the neck, the tip of the catheter is in superior vena cava. The catheter was aspirated and flushed with heparinized saline. Wounds closed with 3-0 Vicryl benzoin and Steri-Strips. Patient tolerated the procedure well, taken to the recovery room in stable condition.
[2019-07-30 11:44] VITALS: BP 155/104
--- NOTE | 2019-07-30 11:49 | RADIOLOGY REPORT (SQ) ---
EXAM DESCRIPTION: FLUORO/CV PLACEMENT IMAGES COMPLETED DATE/TIME: 07/30/2019 9:56 am REASON FOR STUDY: PORTACATH PLCMT RIGHT SIDE ASSISTED WITH FLUORO IN OR I87.8 OTHER SPECIFIED DISOR DERS OF VEINS COMPARISON: None. FLUOROSCOPY TIME: 0.3 minutes Spot images saved to PACS. TECHNIQUE: Intra-operative images acquired during surgical procedure to evaluate progress. NUMBER OF IMAGES: 4 LIMITATIONS: None. FINDINGS: Fluoroscopy was provided for intraoperative procedure. Please refer to the operative repo rt for further discussion. IMPRESSION: IMAGE(S) OBTAINED DURING PROCEDURE. COMMENT: Quality ID [id number]: Final reports for procedures using fluoroscopy that document radiation exp osure indices, or exposure time and number of fluorographic images (if radiation exposure indices are not available) Please consult full operative report of the attending physician for description of the procedure. TECHNICAL DOCUMENTATION: JOB ID: [id number] 2010 [employer]- All Rights Reserved Reading location - IP/workstation name: [email or web address]
== END 2019-07-30 11:25 | disposition home or self-care (01) ==
LOC: OROUT 07:03
PROVIDERS: ATTEND Surgery
DX: E11.10 Type 2 diabetes mellitus with ketoacidosis without coma (principal); E11.22 Type 2 diabetes mellitus with diabetic chronic kidney disease; I12.9 Hypertensive chronic kidney disease with stage 1 through stage 4 chronic kidney disease, or unspecified chronic kidney disease; N18.9 Chronic kidney disease, unspecified; J44.9 Chronic obstructive pulmonary disease, unspecified; D64.9 Anemia, unspecified; I87.8 Other specified disorders of veins; G40.909 Epilepsy, unspecified, not intractable, without status epilepticus; K86.1 Other chronic pancreatitis; F17.210 Nicotine dependence, cigarettes, uncomplicated; Z79.4 Long term (current) use of insulin; Z88.5 Allergy status to narcotic agent; Z79.899 Other long term (current) drug therapy
CPT/HCPCS: 36561; 36415; 82962; 85025; 87635; 80048; 77001; 00532; C1752; C1788; J2250; J0690; J3010; J3490; J2704; J1642; C9803; 532

== ENCOUNTER 2019-08-09 09:28 | Inpatient (IN) | payer MEDICAID ==
[2019-08-09] MEDS ORDERED: NORMAL SALINE 1000 ML 1,000 ML IV ONE ×2 (10:17→10:50)
[2019-08-09 10:31] LABS: ABSOLUTE BASOPHILS # (AUTO) 0.1 10^3/uL (0.0-0.2); ABSOLUTE EOSINOPHILS # (AUTO) 0.1 10^3/uL (0.0-0.6); ABSOLUTE LYMPHOCYTES (AUTO) 2.4 10^3/uL (0.5-4.7); ABSOLUTE MONOCYTES (AUTO) 0.6 10^3/uL (0.1-1.4); ABSOLUTE NEUT (AUTO) 5.6 10^3/uL (1.7-8.2); BASOPHILS % (AUTO) 0.9 % (0-2); EOSINOPHILS % (AUTO) 1.6 % (0-6); HEMOGLOBIN 8.9 g/dL (12.0-15.5); MEAN CORPUSCULAR HEMOGLOBIN 28.6 pg (27.0-33.4); MEAN CORPUSCULAR HGB CONC 33.1 g/dL (32.0-36.0); MEAN CORPUSCULAR VOLUME 86 fl (80-97); MONOCYTES % (AUTO) 6.5 % (3-13); PLATELET COUNT 400 10^3/uL (150-450); RED BLOOD COUNT 3.13 10^6/uL (3.72-5.28); RED CELL DISTRIBUTION WIDTH 15.2 % (11.5-14.0); TOTAL CELLS COUNTED % (AUTO) 100 %; WHITE BLOOD COUNT 8.8 10^3/uL (4.0-10.5)
[2019-08-09 10:36] LABS: APPEARANCE,URINE CLEAR; BILIRUBIN,URINE NEGATIVE (NEGATIVE); COLOR,URINE STRAW; GLUCOSE, URINE >=500 mg/dL (NEGATIVE); KETONES,URINE NEGATIVE (NEGATIVE); LEUKOCYTE ESTERASE,URINE NEGATIVE (NEGATIVE); NITRITE,URINE NEGATIVE (NEGATIVE); PROTEIN,URINE 100 mg/dL (NEGATIVE); URINE SPECIFIC GRAVITY 1.013; UROBILINOGEN,URINE NEGATIVE mg/dL (<2.0)
[2019-08-09 10:48] LABS: ALBUMIN 3.7 g/dL (3.5-5.0); ALKALINE PHOSPHATASE 132 U/L (38-126); ANION GAP 5 (5-19); ASPARTATE AMINO TRANSFERASE 21 U/L (14-36); BILIRUBIN,TOTAL 0.2 mg/dL (0.2-1.3); BLOOD UREA NITROGEN 24 mg/dL (7-20); CARBON DIOXIDE 25 mmol/L (22-30); CHLORIDE 107 mmol/L (98-107); GLUCOSE 218 mg/dL (75-110); POTASSIUM 4.7 mmol/L (3.6-5.0); TOTAL PROTEIN 6.7 g/dL (6.3-8.2)
[2019-08-09] MEDS ORDERED: KETOROLAC TROMETHAMINE INJ/PF 30 MG/1 ML SDV IV ONE (10:50)
--- NOTE | 2019-08-09 11:15 | ER Document Report ---
ED General - General Chief Complaint: Flank Pain Stated Complaint: FLANK PAIN Primary Care Provider: RONALD BARKER FNP-C [Primary Care Provider] - Follow up as needed Mode of Arrival: Medic Information source: Patient Notes: Patient is a 38-year-old female presenting to the emergency department chief complaint of abdominal and flank pain. Patient states is been ongoing for approximately the past 2 days patient does have a prior history of diabetes and hypertension has no prior history of kidney stones. Patient states that the left-sided flank pain began suddenly without provocation. Patient states that she does intermittently get abdominal pain especially if she is in diabetic ke toacidosis. Patient states her blood glucose level this morning was 130. Patient states she normally has reasonable control of her diabetes. Patient denies travel history trauma history or obvious sick contacts or obvious bad food exposure. TRAVEL OUTSIDE OF THE [place] IN LAST 30 DAYS: No - HPI Onset: Yesterday Onset/Duration: Sudden Quality of pain: Stabbing, Throbbing Severity: Moderate Pain Level: 3 Associated symptoms: Nausea. denies: Chest pain, Diarrhea, Fever, Vomiting, Shortness of breath Exacerbated by: Movement, Deep breathing Relieved by: Denies Similar symptoms previously: Yes Recently seen / treated by doctor: No - Related Data Allergies/Adverse Reactions: hydrocodone [From [place]] Allergy (Severe, Verified 08/09/19 09:44) ? morphine Allergy (Severe, Verified 08/09/19 09:44) ? Penicillins Allergy (Severe, Verified 08/09/19 09:44) ? prednisone Allergy (Severe, Verified 08/09/19 09:44) Edema Home Medications: lantus. novolog. lisinopril. amolidipine. keppra Past Medical History - General Information source: Patient - Social History Smoking Status: Current Every Day Smoker Cigarette use (# per day): Yes Chew tobacco use (# tins/day): No Smoking Education Provided: Yes Frequency of alcohol use: None Drug Abuse: Marijuana Family History: DM, Hypertension Patient has suicidal ideation: No Patient has homicidal ideation: No - Past Medical History Cardiac Medical History: Reports: Hx Hypercholesterolemia, Hx Hypertension Denies: Hx Congestive Heart Failure, Hx Coronary Artery Disease, Hx Heart Attack Pulmonary Medical History: Reports: Hx COPD Denies: Hx Asthma, Hx Bronchitis, Hx Pneumonia Neurological Medical History: Reports: Hx Seizures - last 07/27. Denies: Hx Cerebrovascular Accident Endocrine Medical History: Reports: Hx Diabetes Mellitus Type 1, Hx Diabetes Mellitus Type 2 Renal/ Medical History: Reports: Hx Renal Insufficiency GI Medical History: Reports: Hx Gastroesophageal Reflux Disease, Hx Pancreatitis - Chronic Musculoskeletal Medical History: Denies Hx Arthritis, Reports Hx Musculoskeletal Trauma Skin Medical History: Psychiatric Medical History: Reports: Hx Anxiety, Hx Depression Infectious Medical History: Past Surgical History: Reports: Hx Section - x3, Hx Hysterectomy - Immunizations Immunizations up to date: Yes Hx Diphtheria, Pertussis, Tetanus Vaccination: Yes Review of Systems - Review of Systems Notes: REVIEW OF SYSTEMS: CONSTITUTIONAL : Denies fever, chills, or sweats. Denies recent illness. EENT: Denies eye, ear, throat, or mouth pain or symptoms. Denies nasal or sinus congestion. CARDIOVASCULAR: Denies chest pain. RESPIRATORY: Denies cough, cold, or chest congestion. Denies shortness of breath, difficulty breathing, or wheezing. GASTROINTESTINAL: Per HPI GENITOURINARY: Per HPI MUSCULOSKELETAL: Denies neck or back pain or joint pain or swelling. SKIN: Denies rash or skin lesions. HEMATOLOGIC : Denies easy bruising or bleeding. NEUROLOGICAL: Denies altered mental status or loss of consciousness. Denies headache. Denies weakness or paralysis or loss of use of either side. Denies problems with gait or speech. Denies sensory or motor loss. PSYCHIATRIC: Denies suicidal or homicidal ideations 10 Systems are negative unless otherwise specified above Physical Exam - Vital signs Vitals: Temp Pulse Resp BP Pulse Ox 98.9 F 102 H 22 H 180/109 H 98 08/09/19 09:35 08/09/19 09:35 08/09/19 09:35 08/09/19 09:35 08/09/19 09:35 - Notes Notes: PHYSICAL EXAMINATION: GENERAL: Patient is a 38-year-old female presenting to the emergency department in mild to moderate discomfort secondary to abdominal and flank pain HEAD: Atraumatic, normocephalic. EYES: Pupils equal round and reactive to light, extraocular movements intact, sclera anicteric, conjunctiva are normal. ENT: nares patent, oropharynx clear without exudates. Moist mucous membranes. NECK: Normal range of motion, supple without lymphadenopathy, no appreciable JVD LUNGS: Lungs clear to auscultation bilaterally and equal. No wheezes rales or rhonchi. HEART: Regular rate and rhythm without murmurs ABDOMEN: Soft, diffusely moderately tender, normal bowel sounds. No guarding, no rebound. No masses appreciated. Patient does have left-sided CVA tenderness EXTREMITIES: Active full range of motion, no pitting or edema. No cyanosis. 2+ pulses x4 NEUROLOGICAL: No focal neurological deficits. Moves all extremities spont aneously and on command. SKIN: Warm, Dry, and intact. Normal turgor, no rashes or lesions noted. Course - Re-evaluation Re-evalutation: 08/09/19 12:40 Patient has been reevaluated several times while in emergency department she has remained stable without signs of decompensation. Review of laboratory and radiologic results demonstrates pancreatitis and concern for small bowel obstruction versus ileus. I have spoken with the hospitalist they are agreeable with admission. Consult has been placed for general surgery. I did speak with Dr. Truong who stated that he also is requesting right upper quadrant ultrasound to evaluate the gallbladder. Patient will be admitted in stable condition. - Vital Signs Vital signs: Temp Pulse Resp BP Pulse Ox 98.9 F 102 H 22 H 180/109 H 98 08/09/19 09:44 08/09/19 09:35 08/09/19 09:35 08/09/19 09:35 08/09/19 09:35 - Laboratory Result Diagrams: 08/09/19 10:15 08/09/19 10:15 Laboratory results interpreted by me: 08/09/19 08/09/19 08/09/19 10:15 10:15 10:15 RBC 3.13 L Hgb 8.9 L Hct 27.0 L RDW 15.2 H Sodium 136.8 L BUN 24 H Creatinine 1.63 H Est GFR ( Amer) 43 L Est GFR (MDRD) Non-Af 35 L Glucose 218 H Alkaline Phosphatase 132 H Lipase 1142.0 H Urine Protein 100 H Urine Glucose (UA) >=500 H Urine Blood SMALL H - Diagnostic Test Radiology reviewed: Reports reviewed Discharge - Discharge Clinical Impression: Abdominal pain, Acute on chronic pancreatitis, IDDM (insulin dependent diabetes mellitus), SBO (small bowel obstruction) Condition: Stable Disposition: ADMITTED OBSERVATION Admitting Provider: Rio (Hospitalist) Unit Admitted: Medical Floor Referrals: GILBERT,STORMY, PRODUCTION CONTROL EXPEDITER-C [Primary Care Provider] - Follow up as needed
[2019-08-09] MEDS ORDERED: HYDROMORPHONE HCL INJ/PF 2 MG/ML AMPULE IV ONE (11:19)
--- NOTE | 2019-08-09 11:50 | RADIOLOGY REPORT (SQ) ---
EXAM DESCRIPTION: CT ABD/PELVIS NO ORAL OR IV IMAGES COMPLETED DATE/TIME: 08/09/2019 11:30 am REASON FOR STUDY: abd pain left flank pain COMPARISON: CTs of the abdomen and pelvis performed 02/06/2019, 10/30/2018, 10/09/2018, 09/21/2018, 06/17, 06/13/2018 TECHNIQUE: CT scan of the abdomen and pelvis performed without intravenous or oral contrast. Images reviewed with lung, soft tissue, and bone windows. Reconstructed coronal and sagittal MPR images revi ewed. All images stored on PACS. All CT scanners at this facility use dose modulation, iterative reconstruction, and/or weight based d osing when appropriate to reduce radiation dose to as low as reasonably achievable (ALARA). [facility]: Dose Right [facility]: CareDose [facility]: Dose Right [facility]: Teradose 4D [facility]: Smart [employer] RADIATION DOSE: CT Rad equipment meets quality standard of care and radiation dose reduction techniq ues were employed. CTDIvol: 4.8 mGy. DLP: 254 mGy-cm.mGy. LIMITATIONS: None. FINDINGS: LOWER CHEST: No significant findings. No nodules or infiltrates. NON-CONTRASTED LIVER, SPLEEN, ADRENALS: Evaluation limited by lack of IV contrast. No identified sign ificant masses. PANCREAS: Re- demonstration of innumerable coarse calcifications throughout the pancreatic parenchyma . GALLBLADDER: No identified stones by CT criteria. No inflammatory changes to suggest cholecystitis. RIGHT KIDNEY AND URETER: No suspicious masses. Assessment limited by lack of IV contrast. No signif icant calcifications. No hydronephrosis or hydroureter. LEFT KIDNEY AND URETER: No suspicious masses. Assessment limited by lack of IV contrast. No signifi cant calcifications. No hydronephrosis or hydroureter. AORTA AND RETROPERITONEUM: No aneurysm. No retroperitoneal masses or adenopathy. BOWEL AND PERITONEAL CAVITY: Gas and fluid are seen within multiple dilated loops of small bowel with in the mid abdomen. Gas and stool are seen to the level of the rectum without evidence of high-grade obstruction. APPENDIX: Not visualized. PELVIS, BLADDER, AND ABDOMINAL WALL:No abnormal masses. No free fluid. Bladder normal. BONES: No significant findings. OTHER: No other significant finding. IMPRESSION: Gas and fluid distended loops of small bowel without evidence of high-grade obstruction. Differential considerations include ileus, enteritis, or developing small bowel obstruction. COMMENT: Quality ID # [id number]: Final reports with documentation of one or more dose reduction techniques (e.g., Automated exposure control, adjustment of the mA and/or kV according to patient size, use of iterative reconstruction technique) TECHNICAL DOCUMENTATION: JOB ID: [id number] 2010 [employer]- All Rights Reserved Reading location - IP/workstation name: [email or web address]
[2019-08-09] MEDS ORDERED: GLUCAGON,HUMAN RECOMB 1 MG INJ SUBCUT PRN (13:39)
[2019-08-09] MEDS ORDERED: DEXTROSE 40% GEL 15 GM TUBE PO PRN ×3 (13:39→13:53)
[2019-08-09] MEDS ORDERED: DEXTROSE 50%-WATER 25 GM/50 ML DISP.SYRIN IV PRN ×2 (13:39)
[2019-08-09] MEDS ORDERED: MAG HYDROX/AL HYDROX/SIMETH SUSP 30 ML UDCUP PO PRN (13:39)
[2019-08-09] MEDS ORDERED: ACETAMINOPHEN 325 MG TABLET PO PRN (13:39)
[2019-08-09] MEDS ORDERED: CARVEDILOL 12.5 MG TABLET PO ONE (14:00)
[2019-08-09] MEDS ORDERED: AMLODIPINE BESYLATE 10 MG TABLET PO ONE (14:15)
[2019-08-09] MEDS ORDERED: LISINOPRIL 10 MG TABLET PO ONE (14:15)
[2019-08-09] MEDS ORDERED: PANTOPRAZOLE SODIUM 40 MG VIAL IV ONE (14:15)
--- NOTE | 2019-08-09 14:20 | RADIOLOGY REPORT (SQ) ---
EXAM DESCRIPTION: U/S ABDOMEN LIMITED W/O DOP IMAGES COMPLETED DATE/TIME: 08/09/2019 1:36 pm REASON FOR STUDY: pancreatitis COMPARISON: 07/20/2019 TECHNIQUE: Dynamic and static grayscale images acquired of the abdomen and recorded on PACS. Vick keyes selected color Doppler and spectral images recorded. LIMITATIONS: None. FINDINGS: PANCREAS: Multiple calcifications. No mass. LIVER: No masses. Echotexture normal. LIVER VASCULATURE: Normal directional flow of the main portal vein and hepatic veins. GALLBLADDER: No stones. Normal wall thickness. No pericholecystic fluid. ULTRASOUND-DETECTED VARGAS'S SIGN: Negative. INTRAHEPATIC DUCTS AND COMMON DUCT: Common bile duct a prominent at 8 mm. No dilated intrahepatic du cts. AORTA: No aneurysm. The distal abdominal aorta cannot be seen. RIGHT KIDNEY: Normal size, 9.7 cm. Normal echogenicity. No solid or suspicious masses. No hydronephr osis. No calcifications. PERITONEAL AND RIGHT PLEURAL SPACE: No ascites or effusions. OTHER: No other significant findings. IMPRESSION: Chronic pancreatitis. Mild dilatation of the common bile duct at 8 mm. Correlate for b iliary obstruction. TECHNICAL DOCUMENTATION: JOB ID: [id number] 2010 [employer]- All Rights Reserved Reading location - IP/workstation name: [email or web address]
--- NOTE | 2019-08-09 14:20 | PDOC H&P ---
History of Present Illness Admission Date/PCP: 08/09/19 12:48 LYNNE OLMEDO Patient complains of: Abdominal pain History of Present Illness: JJ HOFFMAN is a 38 year old female with a history of diabetes mellitus, seizure disorder, chronic pancreatitis, who presents to the hospital with complaints of abdominal pain. Pain started 2 days ago involving the epigastric as well as radiating to the left back. No noticed exacerbating or alleviating factors. No association with food intake. Describes the pain as sharp and aching. Describes it as an 8/10. Associated with nausea and 2 episodes of vomiting yesterday. Has not been able to eat for the past 2 days due to her nausea but has been able to drink water. Patient states she is passing flatus but denies any bowel movement in the past 2 days. She denies any chest pain or shortness of breath. States that she did not take her blood pressure medications or any of her meds today and did not take her insulin today. States she takes Lantus 30 units at nighttime at home as well as sliding scale coverage and took her meds yesterday but not this morning. She states that the last marble ceiling installer she saw did not really listen to her complaints and her needs and she had requested for her primary care provider to set her up with Dr. Dunham but this has not been done yet. Past Medical History Cardiac Medical History: Reports: Hyperlipidema, Hypertension Denies: Congestive Heart Failure, Coronary Artery Disease, Myocardial Infarction Pulmonary Medical History: Denies: Asthma, Bronchitis, Pneumonia Neurological Medical History: Reports: Seizures - last 07/27 Endocrine Medical History: Reports: Diabetes Mellitus Type 1 Renal/ Medical History: GI Medical History: Reports: Gastroesophageal Reflux Disease Musculoskeltal Medical History: Denies: Arthritis Skin Medical History: Psychiatric Medical History: Reports: Depression Hematology: Reports: Anemia - hx of Denies: Bleeding Tendencies Past Surgical History Past Surgical History: Reports: Section - x3, Hysterectomy Social History Smoking Status: Current Every Day Smoker Electronic Cigarette use?: No Frequency of Alcohol Use: Social Hx Recreational Drug Use: Yes Drugs: Marijuana Hx Prescription Drug Abuse: No - Advance Directive Resuscitation Status: Full Code Family History Family History: DM, Hypertension Parental Family History Reviewed: Yes Children Family History Reviewed: Unknown Sibling(s) Family History Reviewed.: Unknown Medication/Allergy Home Medications: Insulin Aspart [Novolog Flexpen] 0 unit SQ .SLIDING SCALE PRN 06/21/19 Atorvastatin Calcium [Lipitor 20 mg Tablet] 20 mg PO QHS #30 tablet 06/29/19 Carvedilol [Coreg 12.5 mg Tablet] 12.5 mg PO Q12 #60 tablet 06/29/19 Sucralfate [Carafate 1 gm Tablet] 1 gm PO ACHS #120 tablet 07/08/19 Omeprazole 20 mg PO DAILY 07/09/19 Acetaminophen [Tylenol 325 mg Tablet] 650 mg PO Q4HP PRN tablet 07/24/19 Amlodipine Besylate [Norvasc 10 mg Tablet] 10 mg PO DAILY #30 tablet 07/24/19 Carvedilol [Coreg 12.5 mg Tablet] 12.5 mg PO Q12 #0 tablet 07/24/19 Insulin Glargine,Hum.rec.anlog [Lantus Insulin 100 Unit/mL Insulin Pen] 22 unit SUBCUT QHS #1 pen 07/24/19 Levetiracetam [Keppra 500 mg Tablet] 500 mg PO Q12 #60 tablet 07/24/19 Lisinopril [Prinivil 10 mg Tablet] 20 mg PO DAILY #60 tablet 07/24/19 Pen Needle, Diabetic [1St Tier Unifine Pentips Plus] 1 each QHS #30 dis.needle 07/24/19 Allergies/Adverse Reactions: hydrocodone [From [place]] Allergy (Severe, Verified 08/09/19 09:44) ? morphine Allergy (Severe, Verified 08/09/19 09:44) ? Penicillins Allergy (Severe, Verified 08/09/19 09:44) ? prednisone Allergy (Severe, Verified 08/09/19 09:44) Edema Review of Systems Constitutional: ABSENT: chills, fatigue, fever(s) Eyes: ABSENT: visual disturbances Ears: ABSENT: hearing changes Nose, Mouth, and Throat: ABSENT: headache(s) Cardiovascular: ABSENT: chest pain Respiratory: ABSENT: cough, dyspnea Gastrointestinal: PRESENT: abdominal pain, nausea, vomiting. ABSENT: diarrhea, hematemesis, hematochezia, melena Genitourinary: ABSENT: difficulty urinating, dysuria Musculoskeletal: PRESENT: back pain Integumentary: ABSENT: diaphoresis Neurological: ABSENT: dizziness Endocrine: PRESENT: polyuria Allergic/Immunologic: ABSENT: seasonal rhinorrhea Physical Exam Vital Signs: Temp Pulse Resp BP Pulse Ox 98.6 F 92 16 171/98 H 100 08/09/19 12:41 08/09/19 12:41 08/09/19 12:41 08/09/19 12:41 08/09/19 12:41 Intake & Output 08/08/19 08/09/19 08/10/19 06:59 06:59 06:59 Intake Total 1999 Balance 1999 Weight 56.699 kg General appearance: PRESENT: no acute distress, cooperative Head exam: PRESENT: normocephalic Neck exam: ABSENT: JVD Respiratory exam: PRESENT: clear to auscultation teddy, unlabored. ABSENT: tachypnea, wheezes Cardiovascular exam: PRESENT: RRR, +S1, +S2. ABSENT: tachycardia GI/Abdominal exam: PRESENT: normal bowel sounds, soft, tenderness - Somewhat diffuse. ABSENT: ascites, distended, firm, guarding, rebound, rigid Extremities exam: PRESENT: pedal edema - Trace Neurological exam: PRESENT: alert, awake, oriented to person, oriented to place, oriented to time, oriented to situation Psychiatric exam: ABSENT: agitated, anxious Focused psych exam: ABSENT: pressured speech Results Laboratory Results: 08/09/19 10:15 08/09/19 10:15 08/09/19 08/09/19 08/09/19 10:15 10:15 10:15 WBC 8.8 RBC 3.13 L Hgb 8.9 L Hct 27.0 L MCV 86 MCH 28.6 MCHC 33.1 RDW 15.2 H Plt Count 400 Seg Neutrophils % 64.0 Sodium 136.8 L Potassium 4.7 Chloride 107 Carbon Dioxide 25 Anion Gap 5 BUN 24 H Creatinine 1.63 H Est GFR ( Amer) 43 L Glucose 218 H Calcium 9.0 Total Bilirubin 0.2 AST 21 Alkaline Phosphatase 132 H Total Protein 6.7 Albumin 3.7 Lipase 1142.0 H Urine Color STRAW Urine Appearance CLEAR Urine pH 6.0 Ur Specific [place] 1.013 Urine Protein 100 H Urine Glucose (UA) >=500 H Urine Ketones NEGATIVE Urine Blood SMALL H Urine Nitrite NEGATIVE Ur Leukocyte Esterase NEGATIVE Urine WBC (Auto) 8 Urine RBC (Auto) 3 Impressions: Abdomen/Pelvis CT 08/09/19 10:49 IMPRESSION: Gas and fluid distended loops of small bowel without evidence of high-grade obstruction. Differential considerations include ileus, enteritis, or developing small bowel obstruction. Assessment and Plan - Diagnosis (1) Acute on chronic pancreatitis Is this a current diagnosis for this admission?: Yes Plan: Acute on chronic recurrent pancreatitis. CT scan showing calcification of the p ancreas. Lipase elevated. Will keep patient n.p.o. and put patient on IV normal saline infusion 180 cc/h. Patient has received normal saline boluses in the ER. Pain control with Tylenol, and IV Dilaudid as needed. We will resume patient's pancrelipase once off n.p.o. status. Abdominal ultrasound was performed but result is pending. (2) SBO (small bowel obstruction) Is this a current diagnosis for this admission?: Yes Plan: Abdominal CAT scan shows gas and fluid-filled distended abdomen with concerns for early onset of small bowel obstruction. Patient is currently passing flatus but has not had a bowel movement in 2 days. We will keep patient n.p.o. on bowel rest for now. Bowel sounds are normal. Will monitor and replete electrolytes as needed. Monitor for bowel movement. Surgery has been consulted as well. (3) Abdominal pain Qualifiers: Abdominal location: epigastric Qualified Code(s): R10.13 - Epigastric pain Is this a current diagnosis for this admission?: Yes Plan: Potentially secondary to acute on chronic pancreatitis as well as a component of early developing small bowel obstruction if at all. Patient had gastric emptying study last month which was normal. Also had EGD last months which showed only mild gastritis. (4) Gastritis Qualifiers: Gastritis type: unspecified gastritis Chronicity: chronic Gastritis bleeding: without bleeding Qualified Code(s): K29.50 - Unspecified chronic gastritis without bleeding Is this a current diagnosis for this admission?: Yes Plan: EGD last month revealed fairly mild gastritis without any ulceration or bleeding. I will continue patient on Protonix. Patient was discharged on Carafate which so I will resume but may not actually be needed given patient's minimal gastritis. (5) Insulin dependent diabetes mellitus Is this a current diagnosis for this admission?: Yes Plan: Patient states that she takes 30 units of Lantus every morning in addition to sliding scale. Patient is currently hyperglycemic at 218. Currently n.p.o. so I will put on sliding scale insulin coverage as well as Accu-Cheks every 6 hours. Has history of labile blood sugars. I will put on only about 8 units of Lantus daily while n.p.o. (6) CKD (chronic kidney disease) stage 3, GFR 30-59 ml/min Is this a current diagnosis for this admission?: Yes Plan: Seems to be at baseline creatinine. Avoid nephrotoxic medications. (7) Hypertensive urgency Is this a current diagnosis for this admission?: Yes Plan: Secondary to missing her BP medications today. I will resume her lisinopril, amlodipine, Coreg and give her a dose now. (8) Iron deficiency anemia Qualifiers: Iron deficiency anemia type: unspecified iron deficiency Qualified Code(s): D50.9 - Iron deficiency anemia, unspecified Is this a current diagnosis for this admission?: Yes Plan: Patient will require iron supplements at the time of discharge. Prior blood work has revealed significant iron deficiency anemia with normal B12 and TSH as well as folic acid level. Monitor CBC closely. (9) Seizure disorder Is this a current diagnosis for this admission?: Yes Plan: Continue Kemiladra - Time Time Spent with patient: 35 or more minutes
[2019-08-09] MEDS: HEPARIN SOD (PORCINE) 5,000 UNIT/ML 1 ML VIAL SUBCUT SCH ×2 (14:41→21:35)
[2019-08-09] MEDS: HYDROMORPHONE HCL INJ/PF 2 MG/ML AMPULE IV PRN ×2 (15:54→22:26)
[2019-08-09] MEDS: NORMAL SALINE 1000 ML 1,000 ML IV PRN ×2 (15:59→21:37)
[2019-08-09] MEDS: METOCLOPRAMIDE HCL INJ/PF 10 MG/2 ML SDV IV SCH ×2 (16:00→21:35)
[2019-08-09] MEDS: DOCUSATE SODIUM 100 MG CAPSULE PO SCH ×2 (16:00→21:36)
[2019-08-09] MEDS: SUCRALFATE 1 GM TABLET PO SCH ×2 (16:05→21:36)
[2019-08-09] MEDS: INSULIN GLARGINE,HUM.REC.ANLOG 1,000 UNIT/10 ML VIAL SUBCUT SCH (16:50)
[2019-08-09] MEDS: INSULIN LISPRO 100 UNIT/ML 3 ML VIAL SUBCUT SCH (17:58)
[2019-08-09] MEDS: ONDANSETRON 4 MG TAB.RAPDIS PO PRN (21:35)
[2019-08-09] MEDS: CARVEDILOL 12.5 MG TABLET PO SCH (21:36)
[2019-08-09] MEDS: ATORVASTATIN CALCIUM 20 MG TABLET PO SCH (21:36)
[2019-08-09] MEDS ORDERED: LEVETIRACETAM 500 MG in NORMAL SALINE 100 ML IV SCH (22:00)
[2019-08-09] MEDS: LEVETIRACETAM 500 MG/NACL-ISO 500 MG/100 ML RTUPB IV SCH (22:26)
[2019-08-10] MEDS: HYDROMORPHONE HCL INJ/PF 2 MG/ML AMPULE IV PRN ×4 (04:43→23:44)
[2019-08-10] MEDS: NORMAL SALINE 1000 ML 1,000 ML IV PRN ×4 (04:45→22:24)
[2019-08-10] MEDS: HEPARIN SOD (PORCINE) 5,000 UNIT/ML 1 ML VIAL SUBCUT SCH ×3 (05:46→22:19)
[2019-08-10] MEDS ORDERED: PANTOPRAZOLE SODIUM 40 MG VIAL IV SCH (06:00)
[2019-08-10 06:06] LABS: HEMATOCRIT 23.3 % (36.0-47.0); MEAN CORPUSCULAR HGB CONC 33.4 g/dL (32.0-36.0); MEAN CORPUSCULAR VOLUME 87 fl (80-97); PLATELET COUNT 366 10^3/uL (150-450); RED BLOOD COUNT 2.69 10^6/uL (3.72-5.28); RED CELL DISTRIBUTION WIDTH 15.1 % (11.5-14.0); WHITE BLOOD COUNT 5.9 10^3/uL (4.0-10.5)
[2019-08-10 06:14] LABS: HEMOGLOBIN 7.8 g/dL (12.0-15.5)
[2019-08-10 06:24] LABS: ALBUMIN 3.2 g/dL (3.5-5.0); ALKALINE PHOSPHATASE 100 U/L (38-126); ASPARTATE AMINO TRANSFERASE 20 U/L (14-36); BILIRUBIN,TOTAL 0.4 mg/dL (0.2-1.3); BLOOD UREA NITROGEN 18 mg/dL (7-20); CALCIUM 8.7 mg/dL (8.4-10.2); GLUCOSE 71 mg/dL (75-110); POTASSIUM 4.2 mmol/L (3.6-5.0); TOTAL PROTEIN 6.2 g/dL (6.3-8.2)
[2019-08-10 06:30] LABS: CARBON DIOXIDE 25 mmol/L (22-30); CHLORIDE 110 mmol/L (98-107)
[2019-08-10 06:38] LABS: ANION GAP 3 (5-19)
--- NOTE | 2019-08-10 07:02 | PDOC CONSULTATION ---
Consultation Consult Date: 08/10/19 Provider Consulted: SURGICAL SURGICALIST MD Consult reason:: Abdominal pain, nausea, vomiting History of Present Illness Admission Date/PCP: 08/09/19 12:48 LYNNE OLMEDO History of Present Illness: JJ HOFFMAN is a 38 year old female seen in consultation at the request of the hospitalist service. The patient has a long history of chronic pancreatitis as well as chronic constipation. She reports that she drank large amounts of alcohol many years ago, causing her chronic pancreatitis. She has had multiple episodes of similar symptoms. She has not had any alcohol to drink in 13 years, however she continues to have recurrent pancreatitis. The patient's last bowel movement was 2 days ago. She continues to pass flatus. She does have nausea as well as vomiting. It is not associated with eating, or fatty foods specifically. She denies chest pain, shortness of breath, dizziness, orthostasis, fatigue, headache fevers, chills. She does report abdominal pain, nausea, vomiting, malaise. Past Medical History Cardiac Medical History: Reports: Hyperlipidema, Hypertension Denies: Congestive Heart Failure, Coronary Artery Disease, Myocardial Infarction Pulmonary Medical History: Reports: Chronic Obstructive Pulmonary Disease (COPD) Denies: Asthma, Bronchitis, Pneumonia Neurological Medical History: Reports: Seizures - last 07/27 Endocrine Medical History: Reports: Diabetes Mellitus Type 1, Diabetes Mellitus Type 2 Renal/ Medical History: GI Medical History: Reports: Gastroesophageal Reflux Disease, Other - Chronic pancreatitis with pancreatic calcifications. Musculoskeltal Medical History: Denies: Arthritis Skin Medical History: Psychiatric Medical History: Reports: Depression Hematology: Reports: Anemia - hx of Denies: Bleeding Tendencies Past Surgical History Past Surgical History: Reports: Section - x3, Hysterectomy Social History Smoking Status: Current Every Day Smoker Electronic Cigarette use?: No Frequency of Alcohol Use: Social Hx Recreational Drug Use: Yes Drugs: Marijuana Hx Prescription Drug Abuse: No - Advance Directive Resuscitation Status: Full Code Family History Family History: DM, Hypertension Parental Family History Reviewed: Yes Children Family History Reviewed: Yes Sibling(s) Family History Reviewed.: Yes Medication/Allergy Home Medications: Amlodipine Besylate [Norvasc 10 mg Tablet] 10 mg PO DAILY 08/09/19 Atorvastatin Calcium [Lipitor 20 mg Tablet] 20 mg PO QHS 08/09/19 Carvedilol [Coreg 12.5 mg Tablet] 12.5 mg PO Q12 08/09/19 Insulin Aspart [Novolog Flexpen] See Protocol SQ MEALS 08/09/19 Insulin Glargine,Hum.rec.anlog [Lantus Insulin 100 Unit/1 ml 10 ml] 30 units SQ QAM 08/09/19 Levetiracetam [Keppra 500 mg Tablet] 500 mg PO Q12 08/09/19 Lipase/Protease/Amylase [Pancreaze-10 Capsule.dr] 1 cap PO [facility] 08/09/19 Lisinopril [Zestril] 20 mg PO DAILY 08/09/19 Omeprazole 20 mg PO DAILY 08/09/19 Sucralfate [Carafate 1 gm Tablet] 1 gm PO [facility] 08/09/19 Allergies/Adverse Reactions: hydrocodone [From [place]] Allergy (Severe, Verified 08/09/19 09:44) ? morphine Allergy (Severe, Verified 08/09/19 09:44) ? Penicillins Allergy (Severe, Verified 08/09/19 09:44) ? prednisone Allergy (Severe, Verified 08/09/19 09:44) Edema Review of Systems Constitutional: PRESENT: fatigue. ABSENT: anorexia, chills, fever(s), headache(s), weakness Eyes: ABSENT: visual disturbances Ears: ABSENT: hearing changes Nose, Mouth, and Throat: ABSENT: sore throat Cardiovascular: ABSENT: chest pain, dyspnea on exertion Respiratory: ABSENT: cough, dyspnea Gastrointestinal: PRESENT: abdominal pain, constipation, nausea, vomiting. ABSENT: hematemesis, hematochezia, melena Genitourinary: ABSENT: dysuria Integumentary: ABSENT: pruritus, rash Neurological: ABSENT: confusion, convulsions, dizziness Psychiatric: ABSENT: anxiety, depression Endocrine: ABSENT: cold intolerance, heat intolerance Hematologic/Lymphatic: ABSENT: easy bleeding, easy bruising Physical Exam Vital Signs: Temp Pulse Resp BP Pulse Ox 97.5 F 80 17 126/74 H 94 08/09/19 23:51 08/09/19 23:51 08/09/19 23:51 08/09/19 23:51 08/09/19 23:51 Intake & Output 08/08/19 08/09/19 08/10/19 06:59 06:59 06:59 Intake Total 4100 Balance 4100 Weight 56.7 kg General appearance: PRESENT: no acute distress, cooperative Head exam: PRESENT: atraumatic, normocephalic Eye exam: PRESENT: EOMI, PERRLA. ABSENT: scleral icterus Mouth exam: PRESENT: moist, neck supple Neck exam: ABSENT: meningismus, tenderness, thyromegaly, tracheal deviation Respiratory exam: PRESENT: unlabored. ABSENT: tachypnea, wheezes Cardiovascular exam: ABSENT: tachycardia Vascular exam: PRESENT: normal capillary refill. ABSENT: pallor GI/Abdominal exam: PRESENT: soft, tenderness - Mild tenderness to palpation, generally. ABSENT: distended, firm, guarding, rigid Rectal exam: PRESENT: deferred Extremities exam: ABSENT: clubbing Musculoskeletal exam: ABSENT: deformity Neurological exam: PRESENT: alert, awake, oriented to person, oriented to place, oriented to time, oriented to situation, CN II-XII grossly intact Psychiatric exam: ABSENT: agitated, anxious, depressed Focused psych exam: ABSENT: delusional Skin exam: ABSENT: cyanosis, erythema, jaundice Results Laboratory Results: 08/10/19 05:30 08/10/19 05:30 08/09/19 08/09/19 08/09/19 10:15 10:15 10:15 WBC 8.8 RBC 3.13 L Hgb 8.9 L Hct 27.0 L MCV 86 MCH 28.6 MCHC 33.1 RDW 15.2 H Plt Count 400 Seg Neutrophils % 64.0 Sodium 136.8 L Potassium 4.7 Chloride 107 Carbon Dioxide 25 Anion Gap 5 BUN 24 H Creatinine 1.63 H Est GFR ( Amer) 43 L Glucose 218 H Calcium 9.0 Phosphorus Magnesium Total Bilirubin 0.2 AST 21 Alkaline Phosphatase 132 H Total Protein 6.7 Albumin 3.7 Lipase 1142.0 H Urine Color STRAW Urine Appearance CLEAR Urine pH 6.0 Ur Specific [place] 1.013 Urine Protein 100 H Urine Glucose (UA) >=500 H Urine Ketones NEGATIVE Urine Blood SMALL H Urine Nitrite NEGATIVE Ur Leukocyte Esterase NEGATIVE Urine WBC (Auto) 8 Urine RBC (Auto) 3 08/10/19 08/10/19 05:30 05:30 WBC 5.9 RBC 2.69 L Hgb 7.8 L Hct 23.3 L MCV 87 MCH 29.0 MCHC 33.4 RDW 15.1 H Plt Count 366 Seg Neutrophils % Sodium 138.4 Potassium 4.2 Chloride 110 H Carbon Dioxide 25 Anion Gap 3 L BUN 18 Creatinine 1.42 H Est GFR ( Amer) 50 L Glucose 71 L Calcium 8.7 Phosphorus 4.0 Magnesium 2.0 Total Bilirubin 0.4 AST 20 Alkaline Phosphatase 100 Total Protein 6.2 L Albumin 3.2 L Lipase 426.6 H Urine Color Urine Appearance Urine pH Ur Specific [place] Urine Protein Urine Glucose (UA) Urine Ketones Urine Blood Urine Nitrite Ur Leukocyte Esterase Urine WBC (Auto) Urine RBC (Auto) Impressions: Abdomen/Pelvis CT 08/09/19 10:49 IMPRESSION: Gas and fluid distended loops of small bowel without evidence of high-grade obstruction. Differential considerations include ileus, enteritis, or developing small bowel obstruction. Abdomen Ultrasound 08/09/19 12:39 IMPRESSION: Chronic pancreatitis. Mild dilatation of the common bile duct at 8 mm. Correlate for biliary obstruction. Assessment & Plan - Diagnosis (1) Chronic constipation Is this a current diagnosis for this admission?: Yes (2) Acute on chronic pancreatitis Is this a current diagnosis for this admission?: Yes - Plan Summary Plan Summary: This is a 38-year-old female with chronic pancreatitis and complaints of chronic constipation. The patient reports that she has not had a bowel movement in more than 2 days. Her stools are difficult to pass and hard. I have reviewed her CT scan. She has a large amount of stool in the colon, with air. She has no evidence of small bowel obstruction on CT. She has significant pancreatic calcifications, consistent with her history of chronic pancreatitis. Her abdominal pain may be a combination of chronic pancreatitis with her chronic constipation. I will add stool softeners to aid with her constipation. I have reviewed her gallbladder ultrasound, which is normal. I do not believe the patient would benefit from surgical intervention. Surgery will sign off at this time. Please renotify with any questions or concerns.
[2019-08-10] MEDS: INSULIN LISPRO 100 UNIT/ML 3 ML VIAL SUBCUT SCH ×5 (07:33→23:50)
[2019-08-10] MEDS: ONDANSETRON 4 MG TAB.RAPDIS PO PRN (08:50)
[2019-08-10] MEDS: METOCLOPRAMIDE HCL INJ/PF 10 MG/2 ML SDV IV SCH ×4 (09:02→22:20)
[2019-08-10] MEDS ORDERED: LISINOPRIL 10 MG TABLET PO SCH ×2 (10:00→22:00)
[2019-08-10] MEDS ORDERED: AMLODIPINE BESYLATE 10 MG TABLET PO SCH (10:00)
[2019-08-10] MEDS: SUCRALFATE 1 GM TABLET PO SCH ×4 (10:02→22:19)
[2019-08-10] MEDS: INSULIN GLARGINE,HUM.REC.ANLOG 1,000 UNIT/10 ML VIAL SUBCUT SCH (10:27)
[2019-08-10] MEDS ORDERED: ONDANSETRON HCL INJ/PF 4 MG/2 ML SDV IV PRN (10:30)
[2019-08-10] MEDS: LEVETIRACETAM 500 MG/NACL-ISO 500 MG/100 ML RTUPB IV SCH (10:31)
[2019-08-10] MEDS: CARVEDILOL 12.5 MG TABLET PO SCH ×2 (10:32→22:19)
[2019-08-10] MEDS: DOCUSATE SODIUM 100 MG CAPSULE PO SCH ×2 (10:33→17:17)
[2019-08-10] MEDS: POLYETHYLENE GLYCOL 3350 POWDER 17 GM/1 PACKET PO SCH ×2 (10:34→17:17)
--- NOTE | 2019-08-10 11:30 | PDOC PROGRESS REPORT ---
Subjective Progress Note for:: 08/10/19 Subjective:: Patient still having abdominal pain and nausea. Passing gas but no bowel movements yet. She was evaluated by surgery who deems the patient is unlikely to have small bowel obstruction on the right as constipated. Bowel regimen has been ordered. Reason For Visit: ACUTE PANCREATITIS, SOB Physical Exam Vital Signs: Temp Pulse Resp BP Pulse Ox 98.4 F 84 16 161/92 H 99 08/10/19 07:38 08/10/19 07:38 08/10/19 07:38 08/10/19 07:38 08/10/19 07:38 Intake & Output 08/09/19 08/10/19 08/11/19 06:59 06:59 06:59 Intake Total 4100 Balance 4100 Weight 56.7 kg General appearance: PRESENT: no acute distress, cooperative Neck exam: ABSENT: JVD Respiratory exam: PRESENT: clear to auscultation teddy, unlabored. ABSENT: tachypnea, wheezes Cardiovascular exam: PRESENT: RRR, +S1, +S2. ABSENT: tachycardia GI/Abdominal exam: PRESENT: guarding - Voluntary guarding, normal bowel sounds, soft, tenderness. ABSENT: distended, firm, rebound, rigid Neurological exam: PRESENT: alert, awake, oriented to person, oriented to place, oriented to time Results Laboratory Results: 08/10/19 05:30 08/10/19 05:30 08/10/19 08/10/19 05:30 05:30 WBC 5.9 RBC 2.69 L Hgb 7.8 L Hct 23.3 L MCV 87 MCH 29.0 MCHC 33.4 RDW 15.1 H Plt Count 366 Sodium 138.4 Potassium 4.2 Chloride 110 H Carbon Dioxide 25 Anion Gap 3 L BUN 18 Creatinine 1.42 H Est GFR ( Amer) 50 L Glucose 71 L Calcium 8.7 Phosphorus 4.0 Magnesium 2.0 Total Bilirubin 0.4 AST 20 Alkaline Phosphatase 100 Total Protein 6.2 L Albumin 3.2 L Lipase 426.6 H Impressions: Abdomen/Pelvis CT 08/09/19 10:49 IMPRESSION: Gas and fluid distended loops of small bowel without evidence of high-grade obstruction. Differential considerations include ileus, enteritis, or developing small bowel obstruction. Abdomen Ultrasound 08/09/19 12:39 IMPRESSION: Chronic pancreatitis. Mild dilatation of the common bile duct at 8 mm. Correlate for biliary obstruction. Assessment and Plan - Diagnosis (1) Acute on chronic pancreatitis Is this a current diagnosis for this admission?: Yes Plan: Acute on chronic recurrent pancreatitis. CT scan showing calcification of the pancreas. Abdominal ultrasound shows findings suggestive of chronic pancreatitis as well as only mild CBD dilation of 8 mm. However liver enzymes and bilirubin are normal which suggest that there is no actual cholestasis or biliary tract obstruction playing a role here. Pain control with Tylenol, and IV Dilaudid as needed. Continue IV fluids We will start patient on full liquid diet today. (2) Constipation Qualifiers: Constipation type: slow transit constipation Qualified Code(s): K59.01 - Slow transit constipation Is this a current diagnosis for this admission?: Yes Plan: Patient is on bowel regimen with docusate as well as MiraLAX. Passing gas but no bowel movements just yet. (3) SBO (small bowel obstruction) Is this a current diagnosis for this admission?: Yes Plan: Abdominal CAT scan shows gas and fluid-filled distended abdomen with concerns for early onset of small bowel obstruction. However patient was evaluated by surgery who deems that patient symptoms as well as findings on CAT scan are likely secondary to constipation and not actual small bowel obstruction. (4) Abdominal pain Qualifiers: Abdominal location: epigastric Qualified Code(s): R10.13 - Epigastric pain Is this a current diagnosis for this admission?: Yes Plan: Potentially secondary to acute on chronic pancreatitis and constipation. Patient had gastric emptying study last month which was normal. Also had EGD last months which showed only mild gastritis. (5) Gastritis Qualifiers: Gastritis type: unspecified gastritis Chronicity: chronic Gastritis bleeding: without bleeding Qualified Code(s): K29.50 - Unspecified chronic gastritis without bleeding Is this a current diagnosis for this admission?: Yes Plan: EGD last month revealed fairly mild gastritis without any ulceration or bleeding. I will continue patient on Protonix. Patient was discharged on Carafate which I have continued but may not actually be needed given patient's minimal gastritis. (6) Insulin dependent diabetes mellitus Is this a current diagnosis for this admission?: Yes Plan: Patient states that she takes 30 units of Lantus every morning in addition to sliding scale. Has history of labile blood sugars and is only on full liquid diet as of now. I will put on only about 8 units of Lantus daily as well as sliding scale coverage and monitor sugars. (7) CKD (chronic kidney disease) stage 3, GFR 30-59 ml/min Is this a current diagnosis for this admission?: Yes Plan: Seems to be at baseline creatinine. Avoid nephrotoxic medications. (8) Hypertensive urgency Is this a current diagnosis for this admission?: Yes Plan: BP remains uncontrolled and hypertensive urgency this morning. Continue amlodipine, Coreg and lisinopril. I will resume her lisinopril, amlodipine, Coreg. I will also increase her lisinopril to max dose. Pain control. Monitor blood pressures closely. (9) Iron deficiency anemia Qualifiers: Iron deficiency anemia type: unspecified iron deficiency Qualified Code(s): D50.9 - Iron deficiency anemia, unspecified Is this a current diagnosis for this admission?: Yes Plan: Patient will require iron supplements at the time of discharge. Prior blood work has revealed significant iron deficiency anemia with normal B12 and TSH as well as folic acid level. Monitor CBC closely. (10) Seizure disorder Is this a current diagnosis for this admission?: Yes Plan: Continue Keppra - Time Time Spent with patient: Less than 15 minutes
[2019-08-10] MEDS: LIPASE/PROTEASE/AMYLASE 1 CAP CAPSULE.DR PO SCH ×2 (16:04→22:19)
[2019-08-10] MEDS: HYDROXYZINE PAMOATE 25 MG CAPSULE PO PRN (22:18)
[2019-08-10] MEDS: ATORVASTATIN CALCIUM 20 MG TABLET PO SCH (22:18)
[2019-08-10] MEDS: LEVETIRACETAM 500 MG TABLET PO SCH (22:19)
[2019-08-11] MEDS: HEPARIN SOD (PORCINE) 5,000 UNIT/ML 1 ML VIAL SUBCUT SCH ×3 (05:03→21:00)
[2019-08-11] MEDS: HYDROMORPHONE HCL INJ/PF 2 MG/ML AMPULE IV PRN ×3 (05:57→20:58)
[2019-08-11] MEDS: NORMAL SALINE 1000 ML 1,000 ML IV PRN (05:58)
[2019-08-11] MEDS: PANTOPRAZOLE SODIUM 40 MG TABLET.DR PO SCH (05:58)
[2019-08-11 06:57] LABS: HEMATOCRIT 22.9 % (36.0-47.0); MEAN CORPUSCULAR HEMOGLOBIN 28.6 pg (27.0-33.4); MEAN CORPUSCULAR HGB CONC 33.1 g/dL (32.0-36.0); MEAN CORPUSCULAR VOLUME 86 fl (80-97); PLATELET COUNT 323 10^3/uL (150-450); RED BLOOD COUNT 2.65 10^6/uL (3.72-5.28); RED CELL DISTRIBUTION WIDTH 15.2 % (11.5-14.0); WHITE BLOOD COUNT 6.3 10^3/uL (4.0-10.5)
[2019-08-11 07:00] LABS: HEMOGLOBIN 7.6 g/dL (12.0-15.5)
[2019-08-11 07:08] LABS: ALBUMIN 3.1 g/dL (3.5-5.0); ALKALINE PHOSPHATASE 123 U/L (38-126); ASPARTATE AMINO TRANSFERASE 27 U/L (14-36); BILIRUBIN,TOTAL 0.2 mg/dL (0.2-1.3); BLOOD UREA NITROGEN 18 mg/dL (7-20); CALCIUM 8.7 mg/dL (8.4-10.2); CARBON DIOXIDE 23 mmol/L (22-30); CHLORIDE 110 mmol/L (98-107); GLUCOSE 226 mg/dL (75-110); PHOSPHORUS 3.4 mg/dL (2.5-4.5); POTASSIUM 4.5 mmol/L (3.6-5.0); TOTAL PROTEIN 5.9 g/dL (6.3-8.2)
[2019-08-11 07:09] LABS: ANION GAP 4 (5-19)
[2019-08-11] MEDS: METOCLOPRAMIDE HCL INJ/PF 10 MG/2 ML SDV IV SCH ×4 (08:10→21:00)
[2019-08-11] MEDS: SUCRALFATE 1 GM TABLET PO SCH ×4 (08:10→21:00)
[2019-08-11] MEDS: LIPASE/PROTEASE/AMYLASE 1 CAP CAPSULE.DR PO SCH ×4 (08:10→21:00)
[2019-08-11] MEDS: INSULIN LISPRO 100 UNIT/ML 3 ML VIAL SUBCUT SCH ×4 (08:12→21:12)
[2019-08-11] MEDS: POLYETHYLENE GLYCOL 3350 POWDER 17 GM/1 PACKET PO SCH ×2 (09:53→17:12)
[2019-08-11] MEDS: LISINOPRIL 10 MG TABLET PO SCH (09:53)
[2019-08-11] MEDS: CHLORTHALIDONE 25 MG TABLET PO SCH (09:53)
[2019-08-11] MEDS: AMLODIPINE BESYLATE 10 MG TABLET PO SCH ×2 (09:54→21:00)
[2019-08-11] MEDS: INSULIN GLARGINE,HUM.REC.ANLOG 1,000 UNIT/10 ML VIAL SUBCUT SCH (09:54)
[2019-08-11] MEDS: CARVEDILOL 12.5 MG TABLET PO SCH ×2 (09:54→21:00)
[2019-08-11] MEDS: DOCUSATE SODIUM 100 MG CAPSULE PO SCH ×2 (09:54→17:13)
[2019-08-11] MEDS: LEVETIRACETAM 500 MG TABLET PO SCH ×2 (09:54→21:00)
--- NOTE | 2019-08-11 16:35 | PDOC PROGRESS REPORT ---
Subjective Progress Note for:: 08/11/19 Subjective:: Patient has some abdominal pain Reason For Visit: ACUTE PANCREATITIS, SOB Physical Exam Vital Signs: Temp Pulse Resp BP Pulse Ox 98.6 F 92 16 154/95 H 99 08/11/19 07:30 08/11/19 07:30 08/11/19 07:30 08/11/19 13:48 08/11/19 07:30 Intake & Output 08/10/19 08/11/19 08/12/19 06:59 06:59 06:59 Intake Total 4100 6240 1012 Balance 4100 6240 1012 Weight 56.7 kg 61.6 kg General appearance: PRESENT: no acute distress, cooperative Neck exam: ABSENT: JVD Respiratory exam: PRESENT: unlabored. ABSENT: accessory muscle use, retraction, tachypnea GI/Abdominal exam: PRESENT: soft, tenderness. ABSENT: distended, firm, guarding, rebound, rigid Neurological exam: PRESENT: alert, awake, oriented to person, oriented to place, oriented to time Psychiatric exam: ABSENT: agitated, anxious Focused psych exam: ABSENT: pressured speech Skin exam: ABSENT: jaundice Results Laboratory Results: 08/11/19 06:05 08/11/19 06:05 08/11/19 08/11/19 06:05 06:05 WBC 6.3 RBC 2.65 L Hgb 7.6 L Hct 22.9 L MCV 86 MCH 28.6 MCHC 33.1 RDW 15.2 H Plt Count 323 Sodium 136.9 L Potassium 4.5 Chloride 110 H Carbon Dioxide 23 Anion Gap 4 L BUN 18 Creatinine 1.40 H Est GFR ( Amer) 51 L Glucose 226 H Calcium 8.7 Phosphorus 3.4 Magnesium 1.9 Total Bilirubin 0.2 AST 27 Alkaline Phosphatase 123 Total Protein 5.9 L Albumin 3.1 L Impressions: Abdomen/Pelvis CT 08/09/19 10:49 IMPRESSION: Gas and fluid distended loops of small bowel without evidence of high-grade obstruction. Differential considerations include ileus, enteritis, or developing small bowel obstruction. Abdomen Ultrasound 08/09/19 12:39 IMPRESSION: Chronic pancreatitis. Mild dilatation of the common bile duct at 8 mm. Correlate for biliary obstruction. Assessment and Plan - Diagnosis (1) Acute on chronic pancreatitis Is this a current diagnosis for this admission?: Yes Plan: Acute on chronic recurrent pancreatitis. CT scan showing calcification of the pancreas. Abdominal ultrasound shows findings suggestive of chronic pancreatitis as well as only mild CBD dilation of 8 mm. However liver enzymes and bilirubin are normal which suggest that there is no actual cholestasis or biliary tract obstruction playing a role here. Pain control with Tylenol, and IV Dilaudid as needed. Discontinued IV fluids Currently tolerating regular diet (2) Constipation Qualifiers: Constipation type: slow transit constipation Qualified Code(s): K59.01 - Slow transit constipation Is this a current diagnosis for this admission?: Yes Plan: Patient is on bowel regimen with docusate as well as MiraLAX. Passing gas but no bowel movements just yet. Will give Dulcolax suppository today. (3) SBO (small bowel obstruction) Is this a current diagnosis for this admission?: Yes Plan: Abdominal CAT scan shows gas and fluid-filled distended abdomen with concerns for early onset of small bowel obstruction. However patient was evaluated by surgery who deems that patient symptoms as well as findings on CAT scan are likely secondary to constipation and not actual small bowel obstruction. (4) Abdominal pain Qualifiers: Abdominal location: epigastric Qualified Code(s): R10.13 - Epigastric pain Is this a current diagnosis for this admission?: Yes Plan: Potentially secondary to acute on chronic pancreatitis and constipation. Patient had gastric emptying study last month which was normal. Also had EGD last months which showed only mild gastritis. (5) Gastritis Qualifiers: Gastritis type: unspecified gastritis Chronicity: chronic Gastritis bleeding: without bleeding Qualified Code(s): K29.50 - Unspecified chronic gastritis without bleeding Is this a current diagnosis for this admission?: Yes Plan: EGD last month revealed fairly mild gastritis without any ulceration or bleeding. I will continue patient on Protonix. Patient was discharged on Carafate which I have continued but may not actually be needed given patient's minimal gastritis. (6) Insulin dependent diabetes mellitus Is this a current diagnosis for this admission?: Yes Plan: Patient states that she takes 30 units of Lantus every morning in addition to sliding scale. Has history of labile blood sugars and is only on full liquid diet as of now. I will put on only about 20 units of Lantus daily as well as sliding scale coverage and monitor sugars. (7) CKD (chronic kidney disease) stage 3, GFR 30-59 ml/min Is this a current diagnosis for this admission?: Yes (8) Hypertensive urgency Is this a current diagnosis for this admission?: Yes Plan: BP remains uncontrolled and hypertensive urgency this morning. Continue amlodipine, Coreg and lisinopril. I have added chlorthalidone to her regimen. (9) Iron deficiency anemia Qualifiers: Iron deficiency anemia type: unspecified iron deficiency Qualified Code(s): D50.9 - Iron deficiency anemia, unspecified Is this a current diagnosis for this admission?: Yes Plan: Patient will require iron supplements at the time of discharge. Prior blood work has revealed significant iron deficiency anemia with normal B12 and TSH as well as folic acid level. Monitor CBC closely. (10) Seizure disorder Is this a current diagnosis for this admission?: Yes Plan: Continue Keppra - Time Time Spent with patient: Less than 15 minutes
[2019-08-11] MEDS ORDERED: BISACODYL 10 MG SUPP.RECT PR ONE (17:00)
[2019-08-11] MEDS: HYDROXYZINE PAMOATE 25 MG CAPSULE PO PRN (20:59)
[2019-08-11] MEDS: ATORVASTATIN CALCIUM 20 MG TABLET PO SCH (21:00)
[2019-08-12] MEDS: HYDROMORPHONE HCL INJ/PF 2 MG/ML AMPULE IV PRN ×2 (03:24→09:45)
[2019-08-12] MEDS: HEPARIN SOD (PORCINE) 5,000 UNIT/ML 1 ML VIAL SUBCUT SCH (05:43)
[2019-08-12] MEDS: PANTOPRAZOLE SODIUM 40 MG TABLET.DR PO SCH (05:54)
[2019-08-12 06:48] LABS: HEMATOCRIT 21.6 % (36.0-47.0); MEAN CORPUSCULAR HEMOGLOBIN 28.8 pg (27.0-33.4); MEAN CORPUSCULAR HGB CONC 33.5 g/dL (32.0-36.0); MEAN CORPUSCULAR VOLUME 86 fl (80-97); PLATELET COUNT 319 10^3/uL (150-450); RED BLOOD COUNT 2.52 10^6/uL (3.72-5.28); RED CELL DISTRIBUTION WIDTH 15.3 % (11.5-14.0); WHITE BLOOD COUNT 6.3 10^3/uL (4.0-10.5)
[2019-08-12 06:55] LABS: HEMOGLOBIN 7.2 g/dL (12.0-15.5)
[2019-08-12] MEDS: INSULIN LISPRO 100 UNIT/ML 3 ML VIAL SUBCUT SCH ×2 (07:57→11:49)
[2019-08-12] MEDS: LIPASE/PROTEASE/AMYLASE 1 CAP CAPSULE.DR PO SCH ×2 (08:02→11:48)
[2019-08-12] MEDS: SUCRALFATE 1 GM TABLET PO SCH ×2 (08:02→11:48)
[2019-08-12] MEDS: METOCLOPRAMIDE HCL INJ/PF 10 MG/2 ML SDV IV SCH ×2 (08:02→11:49)
[2019-08-12] MEDS: LISINOPRIL 10 MG TABLET PO SCH (09:34)
[2019-08-12] MEDS: DOCUSATE SODIUM 100 MG CAPSULE PO SCH (09:34)
[2019-08-12] MEDS: POLYETHYLENE GLYCOL 3350 POWDER 17 GM/1 PACKET PO SCH (09:34)
[2019-08-12] MEDS: AMLODIPINE BESYLATE 10 MG TABLET PO SCH (09:35)
[2019-08-12] MEDS: CHLORTHALIDONE 25 MG TABLET PO SCH (09:35)
[2019-08-12] MEDS: LEVETIRACETAM 500 MG TABLET PO SCH (09:35)
[2019-08-12] MEDS: INSULIN GLARGINE,HUM.REC.ANLOG 1,000 UNIT/10 ML VIAL SUBCUT SCH (09:40)
[2019-08-12] MEDS ORDERED: CARVEDILOL 12.5 MG TABLET PO SCH (10:00)
--- NOTE | 2019-08-12 11:14 | PDOC DISCHARGE SUMMARY ---
Impression - Admit/DC Date/PCP Admission Date/Primary Care Provider: 08/09/19 12:48 LYNNE OLMEDO Discharge Date: 08/12/19 - Discharge Diagnosis (1) Acute on chronic pancreatitis Is this a current diagnosis for this admission?: Yes (2) Constipation Is this a current diagnosis for this admission?: Yes (3) Abdominal pain Is this a current diagnosis for this admission?: Yes (4) Gastritis Is this a current diagnosis for this admission?: Yes (5) Insulin dependent diabetes mellitus Is this a current diagnosis for this admission?: Yes (6) CKD (chronic kidney disease) stage 3, GFR 30-59 ml/min Is this a current diagnosis for this admission?: Yes (7) Hypertensive urgency Is this a current diagnosis for this admission?: Yes (8) Iron deficiency anemia Is this a current diagnosis for this admission?: Yes (9) Seizure disorder Is this a current diagnosis for this admission?: Yes - Additional Information Resuscitation Status: Full Code Discharge Diet: Cardiac, Diabetic Referrals: ANUPAMA NUNN MD [NO LOCAL MD] - AJIT PALOMINO MD [ACTIVE STAFF] - RONALD BARKER FNP-C [Primary Care Provider] - Follow up as needed Prescriptions: Carvedilol [Coreg 12.5 mg Tablet] 25 mg PO Q12 15 Days #60 Chlorthalidone [Hygroton 25 mg Tablet] 25 mg PO DAILY #30 tablet Lisinopril 40 mg PO DAILY #60 tablet Polyethylene Glycol 3350 [Miralax Powder 17 gm/Packet] 1 packet PO DAILY #1 pkg Amlodipine Besylate [Norvasc 5 mg Tablet] 5 mg PO Q12 #60 tablet Pen Needle, Diabetic [Pen Needle] 1 each MC DAILY #30 [email or web address] Home Medications: Atorvastatin Calcium [Lipitor 20 mg Tablet] 20 mg PO QHS 08/09/19 Insulin Aspart [Novolog Flexpen] See Protocol SQ MEALS 08/09/19 Levetiracetam [Keppra 500 mg Tablet] 500 mg PO Q12 08/09/19 Lipase/Protease/Amylase [Pancreaze-10 Capsule.dr] 1 cap PO ACHS 08/09/19 Omeprazole 20 mg PO DAILY 08/09/19 Sucralfate [Carafate 1 gm Tablet] 1 gm PO ACHS 08/09/19 Amlodipine Besylate [Norvasc 5 mg Tablet] 5 mg PO Q12 #60 tablet 08/12/19 Carvedilol [Coreg 12.5 mg Tablet] 25 mg PO Q12 15 Days #60 08/12/19 Chlorthalidone [Hygroton 25 mg Tablet] 25 mg PO DAILY #30 tablet 08/12/19 Insulin Glargine,Hum.rec.anlog [Lantus Insulin 100 Unit/1 ml 10 ml] 25 units SQ QAM #10 ml 08/12/19 Lisinopril 40 mg PO DAILY #60 tablet 08/12/19 Pen Needle, Diabetic [Pen Needle] 1 each MC DAILY #30 [email or web address] 08/12/19 Polyethylene Glycol 3350 [Miralax Powder 17 gm/Packet] 1 packet PO DAILY #1 pkg 08/12/19 History of Present Illiness History of Present Illness: JJ HOFFMAN is a 38 year old female with a history of diabetes mellitus, seizure disorder, chronic pancreatitis, who presents to the hospital with complaints of abdominal pain. Pain started 2 days ago involving the epigastric as well as radiating to the left back. No noticed exacerbating or alleviating factors. No association with food intake. Describes the pain as sharp and aching. Describes it as an 8/10. Associated with nausea and 2 episodes of vomiting yesterday. Has not been able to eat for the past 2 days due to her nausea but has been able to drink water. Patient states she is passing flatus but denies any bowel movement in the past 2 days. She denies any chest pain or shortness of breath. States that she did not take her blood pressure medications or any of her meds today and did not take her insulin today. States she takes Lantus 30 units at nighttime at home as well as sliding scale coverage and took her meds yesterday but not this morning. She states that the last miguel ángel roenterologist she saw did not really listen to her complaints and her needs and she had requested for her primary care provider to set her up with Dr. Palomino but this has not been done yet. Hospital Course Hospital Course: Patient was admitted to the hospital for treatment of acute on chronic pancreatitis. Lipase was elevated on blood work. CMP showed no evidence of cholestasis. Abdominal CT showed findings consistent with chronic pancreatitis as well as findings suggestive of constipation/ileus/early developing SBO. Surgery was consulted who recommended that patient was unlikely to be having SBO and likely to simply be constipated after reviewing image. Recommended laxatives which patient was started on. Patient had good bowel movements yest erday. Patient was treated for her pancreatitis with IV fluids as well as pain medications. At this point she is been tolerating diet for the past few days and is stable for discharge. Of note, patient had gastric emptying study during last hospitalization which was normal making gastroparesis unlikely. I have increased patient's Lantus to 25 units daily and recommended patient to follow- up with an repairer and checker not too far from you called Dr. Anupama Nunn for further management of her diabetes given her labile blood sugars. She will continue to use a sliding scale insulin as needed. Have given her refills including needles. Patient also treated for hypertensive urgency with very hard to control blood pressures. I have made adjustments to her blood pressure medications and also started her on a new blood pressure medication chlorthalidone. Patient stable for discharge at this time. Physical Exam Vital Signs: Temp Pulse Resp BP Pulse Ox 97.9 F 93 17 184/104 H 100 08/12/19 07:34 08/12/19 07:34 08/12/19 07:34 08/12/19 07:34 08/12/19 07:34 Intake & Output 08/11/19 08/12/19 08/13/19 06:59 06:59 06:59 Intake Total 6240 1494 Balance 6240 1494 Weight 61.6 kg 61.6 kg General appearance: PRESENT: no acute distress, cooperative Respiratory exam: PRESENT: unlabored. ABSENT: tachypnea, wheezes Neurological exam: PRESENT: alert, awake, oriented to person, oriented to place, oriented to time Results Laboratory Results: WBC 6.3 10^3/uL (4.0-10.5) 08/12/19 05:50 RBC 2.52 10^6/uL (3.72-5.28) L 08/12/19 05:50 Hgb 7.2 g/dL (12.0-15.5) L 08/12/19 05:50 Hct 21.6 % (36.0-47.0) L 08/12/19 05:50 MCV 86 fl (80-97) 08/12/19 05:50 MCH 28.8 pg (27.0-33.4) 08/12/19 05:50 MCHC 33.5 g/dL (32.0-36.0) 08/12/19 05:50 RDW 15.3 % (11.5-14.0) H 08/12/19 05:50 Plt Count 319 10^3/uL (150-450) 08/12/19 05:50 Lymph % (Auto) 27.0 % (13-45) 08/09/19 10:15 [place] % (Auto) 6.5 % (3-13) 08/09/19 10:15 Eos % (Auto) 1.6 % (0-6) 08/09/19 10:15 Baso % (Auto) 0.9 % (0-2) 08/09/19 10:15 Absolute Neuts (auto) 5.6 10^3/uL (1.7-8.2) 08/09/19 10:15 Absolute Lymphs (auto) 2.4 10^3/uL (0.5-4.7) 08/09/19 10:15 Absolute Monos (auto) 0.6 10^3/uL (0.1-1.4) 08/09/19 10:15 Absolute Eos (auto) 0.1 10^3/uL (0.0-0.6) 08/09/19 10:15 Absolute Basos (auto) 0.1 10^3/uL (0.0-0.2) 08/09/19 10:15 Seg Neutrophils % 64.0 % (42-78) 08/09/19 10:15 Sodium 136.9 mmol/L (137-145) L 08/11/19 06:05 Potassium 4.5 mmol/L (3.6-5.0) 08/11/19 06:05 Chloride 110 mmol/L (98-107) H 08/11/19 06:05 Carbon Dioxide 23 mmol/L (22-30) 08/11/19 06:05 Anion Gap 4 (5-19) L 08/11/19 06:05 BUN 18 mg/dL (7-20) 08/11/19 06:05 Creatinine 1.40 mg/dL (0.52-1.25) H 08/11/19 06:05 Est GFR ( Amer) 51 (>60) L 08/11/19 06:05 Est GFR (MDRD) Non-Af 42 (>60) L 08/11/19 06:05 Glucose 226 mg/dL (75-110) H 08/11/19 06:05 POC Glucose 183 mg/dL (70-110) H 08/12/19 06:52 Calcium 8.7 mg/dL (8.4-10.2) 08/11/19 06:05 Phosphorus 3.4 mg/dL (2.5-4.5) 08/11/19 06:05 Magnesium 1.9 mg/dL (1.6-2.3) 08/11/19 06:05 Total Bilirubin 0.2 mg/dL (0.2-1.3) 08/11/19 06:05 Direct Bilirubin 0.0 mg/dL (0.0-0.4) 08/11/19 06:05 Neonat Total Bilirubin Not Reportable 08/11/19 06:05 Neonat Direct Bilirubin Not Reportable 08/11/19 06:05 Neonat Indirect Bili Not Reportable 08/11/19 06:05 AST 27 U/L (14-36) 08/11/19 06:05 ALT 14 U/L (<35) 08/11/19 06:05 Alkaline Phosphatase 123 U/L (38-126) 08/11/19 06:05 Total Protein 5.9 g/dL (6.3-8.2) L 08/11/19 06:05 Albumin 3.1 g/dL (3.5-5.0) L 08/11/19 06:05 Lipase 426.6 U/L (23-300) H 08/10/19 05:30 Urine Color STRAW 08/09/19 10:15 Urine Appearance CLEAR 08/09/19 10:15 Urine pH 6.0 (5.0-9.0) 08/09/19 10:15 Ur Specific [place] 1.013 08/09/19 10:15 Urine Protein 100 mg/dL (NEGATIVE) H 08/09/19 10:15 Urine Glucose (UA) >=500 mg/dL (NEGATIVE) H 08/09/19 10:15 Urine Ketones NEGATIVE mg/dL (NEGATIVE) 08/09/19 10:15 Urine Blood SMALL (NEGATIVE) H 08/09/19 10:15 Urine Nitrite NEGATIVE (NEGATIVE) 08/09/19 10:15 Urine Bilirubin NEGATIVE (NEGATIVE) 08/09/19 10:15 Urine Urobilinogen NEGATIVE mg/dL (<2.0) 08/09/19 10:15 Ur Leukocyte Esterase NEGATIVE (NEGATIVE) 08/09/19 10:15 Urine WBC (Auto) 8 /HPF 08/09/19 10:15 Urine RBC (Auto) 3 /HPF 08/09/19 10:15 Squamous Epi Cells Auto 1 /HPF 08/09/19 10:15 Urine Mucus (Auto) RARE /LPF 08/09/19 10:15 Urine Ascorbic Acid NEGATIVE (NEGATIVE) 08/09/19 10:15 Urine HCG, Qual NEGATIVE (NEGATIVE) 08/09/19 10:15 Impressions: Abdomen/Pelvis CT 08/09/19 10:49 IMPRESSION: Gas and fluid distended loops of small bowel without evidence of high-grade obstruction. Differential considerations include ileus, enteritis, or developing small bowel obstruction. Abdomen Ultrasound 08/09/19 12:39 IMPRESSION: Chronic pancreatitis. Mild dilatation of the common bile duct at 8 mm. Correlate for biliary obstruction. Plan Time Spent: Less than 30 Minutes Stroke Is this a Stroke Patient?: No Acute Heart Failure - Is this a Heart Failure Patient?: No
[2019-08-12 13:21] VITALS: BP 183/104
== END 2019-08-12 13:15 | disposition home or self-care (01) | DRG 440 ==
LOC: ER 09:28 → OBSVTOIN 12:48 → EH 12:48 → 4S 15:11
PROVIDERS: ADMIT Internal Medicine; ATTEND Internal Medicine
DX: K85.20 Alcohol induced acute pancreatitis without necrosis or infection (principal); K86.0 Alcohol-induced chronic pancreatitis; I12.9 Hypertensive chronic kidney disease with stage 1 through stage 4 chronic kidney disease, or unspecified chronic kidney disease; I16.0 Hypertensive urgency; N18.3 Chronic kidney disease, stage 3 (moderate); E11.22 Type 2 diabetes mellitus with diabetic chronic kidney disease; K29.50 Unspecified chronic gastritis without bleeding; D50.9 Iron deficiency anemia, unspecified; K59.01 Slow transit constipation; F17.210 Nicotine dependence, cigarettes, uncomplicated; G40.909 Epilepsy, unspecified, not intractable, without status epilepticus; J44.9 Chronic obstructive pulmonary disease, unspecified; F32.9 Major depressive disorder, single episode, unspecified; E78.5 Hyperlipidemia, unspecified; K21.9 Gastro-esophageal reflux disease without esophagitis; Z79.899 Other long term (current) drug therapy; Z83.3 Family history of diabetes mellitus; Z82.49 Family history of ischemic heart disease and other diseases of the circulatory system; Z79.4 Long term (current) use of insulin
CPT/HCPCS: 36415; 74176; 76705; 80053; 81001; 81025; 82010; 82962; 83690; 83735; 84100; 85025; 85027; 96361; 96374; 96375; 99284; C9113; J1170; J1642; J1644; J1815; J1885; J1953; J2765; J3490; J7030; S0119

== ENCOUNTER 2019-08-15 06:56 | Inpatient (IN) | payer MEDICAID ==
--- NOTE | 2019-08-15 07:09 | ER Document Report ---
ED General - General Stated Complaint: HYPOGLYCEMIA Time Seen by Provider: 08/15/19 06:59 Primary Care Provider: RONALD BARKER FNP-C [Primary Care Provider] - Follow up as needed Notes: 30-year-old female with brittle diabetes a history of multiple episodes of chronic pain including pancreatitis, gastroparesis DKA hyper and hypoglycemia mu ltiple hospital admissions and ED visits. Comes in today for abdominal pain. 2 days. Same as prior. Nausea vomiting. Insulin use but no food. This morning was found hypoglycemic at 20. She was given a meal of buffalo chicken honey wings and Sprite at home because that is all they had which she vomited. Then guttural glucose from EMS sugar 115 on ED arrival. No fevers. TRAVEL OUTSIDE OF THE [place] IN LAST 30 DAYS: No - Related Data Allergies/Adverse Reactions: hydrocodone [From [place]] Allergy (Severe, Verified 08/09/19 09:44) ? morphine Allergy (Severe, Verified 08/09/19 09:44) ? Penicillins Allergy (Severe, Verified 08/09/19 09:44) ? prednisone Allergy (Severe, Verified 08/09/19 09:44) Edema Past Medical History - General Information source: Patient - Social History Smoking Status: Former Smoker Family History: DM, Hypertension - Past Medical History Cardiac Medical History: Reports: Hx Hypercholesterolemia, Hx Hypertension Denies: Hx Congestive Heart Failure, Hx Coronary Artery Disease, Hx Heart Attack Pulmonary Medical History: Reports: Hx COPD Denies: Hx Asthma, Hx Bronchitis, Hx Pneumonia Neurological Medical History: Reports: Hx Seizures - last 07/27. Denies: Hx Cerebrovascular Accident Endocrine Medical History: Reports: Hx Diabetes Mellitus Type 1, Hx Diabetes Mellitus Type 2 Renal/ Medical History: Reports: Hx Renal Insufficiency GI Medical History: Reports: Hx Gastroesophageal Reflux Disease, Hx Pancreatitis - Chronic Musculoskeletal Medical History: Denies Hx Arthritis, Reports Hx Musculoskeletal Trauma Skin Medical History: Psychiatric Medical History: Reports: Hx Anxiety, Hx Depression Infectious Medical History: Past Surgical History: Reports: Hx Section - x3, Hx Hysterectomy - Immunizations Immunizations up to date: Yes Hx Diphtheria, Pertussis, Tetanus Vaccination: Yes Review of Systems - Review of Systems Notes: REVIEW OF SYSTEMS GEN: Denies fever, chills, weight loss ENT: Denies sore throat, nasal discharge, ear pain EYES: Denies blurry vision, eye pain, discharge CV: Denies chest pain, palpitations, edema RESP: Denies cough, shortness of breath, wheezing GI: Denies abdominal pain, nausea, vomiting, diarrhea MSK: Denies joint pain/swelling, edema, SKIN: Denies rash, skin lesions LYMPH: Denies swollen glands/lymph nodes NEURO: Denies headache, focal weakness or numbness, dizziness PSYCH: Denies depression, suicidal or homicidal ideation PHYSICAL EXAMINATION General: Tearful writhing on the gurney Head: Atraumatic, normocephalic ENT: Mouth normal, oropharynx moist, no exudates or tonsillar enlargement Eyes: Conjunctiva normal, pupils equal, lids normal Neck: No JVD, supple, no guarding CVS: Normal rate, regular rhythm, no murmurs Resp: No resp distress, equal and normal breath sounds bilaterally GI: Nondistended, soft, no tenderness to palpation, no rebound or guarding Ext: No deformities, no edema, normal range of motion in upper and lower ext Back: No CVA or midline TTP Skin: No rash, warm Lymphatic: No lymphadeopathy noted Neuro: Awake, alert. Face symmetric. GCS 15. Physical Exam - Vital signs Vitals: Resp Pulse Ox 12 99 08/15/19 07:26 08/15/19 07:26 Course - Re-evaluation Re-evalutation: 08/15/19 11:12 Repeat visit for abdominal pain gastritis versus motility versus acute pancreatitis On her last admission she had a normal gastric emptying study. Her lipase is 9 00 She is given 2 rounds of medicines and copious IV fluids but was still very nauseous, and distress in pain. Ordered more fluids. Discussed with screws for admission to the hospital. - Vital Signs Vital signs: Temp Pulse Resp BP Pulse Ox 97.4 F 19 166/93 H 100 08/15/19 07:27 08/15/19 10:00 08/15/19 09:02 08/15/19 09:02 - Laboratory Result Diagrams: 08/15/19 07:13 08/15/19 07:13 Laboratory results interpreted by me: 08/15/19 08/15/19 08/15/19 07:01 07:13 07:13 WBC 10.7 H RBC 3.63 L Hgb 10.6 L Hct 31.2 L RDW 15.5 H Plt Count 484 H Sodium 135.5 L BUN 30 H Creatinine 2.13 H Est GFR ( Amer) 31 L Est GFR (MDRD) Non-Af 26 L Glucose 124 H POC Glucose 118 H Lipase 905.0 H Urine Protein Urine Glucose (UA) Urine Blood Ur Leukocyte Esterase 08/15/19 08/15/19 08:01 10:14 WBC RBC Hgb Hct RDW Plt Count Sodium BUN Creatinine Est GFR ( Amer) Est GFR (MDRD) Non-Af Glucose POC Glucose 346 H Lipase Urine Protein 100 H Urine Glucose (UA) >=500 H Urine Blood SMALL H Ur Leukocyte Esterase TRACE H - EKG Interpretation by Ms EKG shows normal: Sinus rhythm Rate: Normal Rhythm: NSR - QTC normal When compared to previous EKG there are: No significant change Procedures - Ultrasound/Bedside Ultrasound/Bedside Ultrasound: Other - Left upper arm deep brachial vein for IV placement - Additional Procedures IV insertion Additional Procedures: IV insertion - Physician performed IV due to difficult access ultrasound guidance used Discharge - Discharge Clinical Impression: Chronic pancreatitis Qualifiers: Pancreatitis type: other Qualified Code(s): K86.1 - Other chronic pancreatitis Condition: Fair Disposition: ADMITTED OBSERVATION Admitting Provider: Cheo (Hospitalist) Unit Admitted: Medical Floor Referrals: RONALD BARKER FNP-C [Primary Care Provider] - Follow up as needed
[2019-08-15] MEDS: RINGERS SOLUTION,LACTATED 1,000 ML IV PRN ×2 (07:22→08:24)
[2019-08-15 07:25] LABS: ABSOLUTE BASOPHILS # (AUTO) 0.1 10^3/uL (0.0-0.2); ABSOLUTE EOSINOPHILS # (AUTO) 0.2 10^3/uL (0.0-0.6); ABSOLUTE LYMPHOCYTES (AUTO) 2.7 10^3/uL (0.5-4.7); ABSOLUTE MONOCYTES (AUTO) 0.6 10^3/uL (0.1-1.4); ABSOLUTE NEUT (AUTO) 7.1 10^3/uL (1.7-8.2); BASOPHILS % (AUTO) 0.9 % (0-2); EOSINOPHILS % (AUTO) 1.9 % (0-6); HEMATOCRIT 31.2 % (36.0-47.0); HEMOGLOBIN 10.6 g/dL (12.0-15.5); LYMPHOCYTES % (AUTO) 25.1 % (13-45); MEAN CORPUSCULAR HEMOGLOBIN 29.3 pg (27.0-33.4); MEAN CORPUSCULAR HGB CONC 34.1 g/dL (32.0-36.0); MEAN CORPUSCULAR VOLUME 86 fl (80-97); MONOCYTES % (AUTO) 5.8 % (3-13); PLATELET COUNT 484 10^3/uL (150-450); RED BLOOD COUNT 3.63 10^6/uL (3.72-5.28); RED CELL DISTRIBUTION WIDTH 15.5 % (11.5-14.0); SEGMENTED NEUTROPHILS % (AUTO) 66.3 % (42-78); TOTAL CELLS COUNTED % (AUTO) 100 %; WHITE BLOOD COUNT 10.7 10^3/uL (4.0-10.5)
[2019-08-15 07:46] LABS: ANION GAP 10 (5-19); BLOOD UREA NITROGEN 30 mg/dL (7-20); CALCIUM 9.7 mg/dL (8.4-10.2); CARBON DIOXIDE 26 mmol/L (22-30); CHLORIDE 100 mmol/L (98-107); GLUCOSE 124 mg/dL (75-110); POTASSIUM 4.2 mmol/L (3.6-5.0)
[2019-08-15] MEDS ORDERED: DIPHENHYDRAMINE HCL 50 MG/ML VIAL IV ONE (07:51)
[2019-08-15] MEDS ORDERED: HALOPERIDOL LACTATE INJ 5 MG/1 ML VIAL IV ONE (07:51)
[2019-08-15 08:24] LABS: APPEARANCE,URINE CLOUDY; BILIRUBIN,URINE NEGATIVE (NEGATIVE); GLUCOSE, URINE >=500 mg/dL (NEGATIVE); KETONES,URINE NEGATIVE (NEGATIVE); LEUKOCYTE ESTERASE,URINE TRACE (NEGATIVE); NITRITE,URINE NEGATIVE (NEGATIVE); PROTEIN,URINE 100 mg/dL (NEGATIVE); URINE SPECIFIC GRAVITY 1.009; UROBILINOGEN,URINE NEGATIVE mg/dL (<2.0)
[2019-08-15 08:47] LABS: ADD MANUAL MICROSCOPIC YES; BACTERIA,URINE 2+ /HPF; COLOR,URINE YELLOW; RBC,URINE NONE SEEN /HPF
[2019-08-15] MEDS ORDERED: KETOROLAC TROMETHAMINE INJ/PF 30 MG/1 ML SDV IV ONE (11:10)
[2019-08-15] MEDS: HYDROMORPHONE HCL INJ/PF 2 MG/ML AMPULE IV PRN ×3 (12:46→22:34)
[2019-08-15] MEDS ORDERED: IPRATROPIUM/ALBUTEROL 0.5-2.5 MG/3 ML AMPUL NEB PRN (14:01)
[2019-08-15] MEDS ORDERED: PROMETHAZINE HCL INJ 25 MG/1 ML VIAL IV PRN (14:01)
[2019-08-15] MEDS ORDERED: MAGNESIUM HYDROXIDE SUSP 30 ML UDCUP PO PRN (14:01)
[2019-08-15] MEDS ORDERED: ACETAMINOPHEN 325 MG TABLET PO PRN (14:01)
[2019-08-15] MEDS ORDERED: TEMAZEPAM 15 MG CAPSULE PO PRN (14:01)
--- NOTE | 2019-08-15 16:27 | EKG REPORT ---
SEVERITY:- ABNORMAL ECG - SINUS RHYTHM ABNORMAL Q SUGGESTS ANTERIOR INFARCT BORDERLINE PROLONGED QT INTERVAL : Confirmed by: Alvaro Lema MD 15-Aug-2019 16:26:27
[2019-08-15] MEDS: NORMAL SALINE 1000 ML 1,000 ML IV PRN (18:30)
--- NOTE | 2019-08-15 19:27 | PDOC H&P ---
History of Present Illness Admission Date/PCP: 08/15/19 12:17 LYNNE OLMEDO History of Present Illness: JJ HOFFMAN is a 38 year old female with a history of diabetes mellitus, s eizure disorder, chronic pancreatitis, presented to ED complaining of abdominal pain for the last 2 days. Pain is epigastric, radiating to the back and flank region. No alleviating or exacerbating factors identified. No association with food intake. Pain is described as sharp and aching, 5/5, associated with nausea and nonbloody nonbilious vomiting. Patient states she is passing flatus but de nies any bowel movement in the past 2 days. She denies any chest pain fever, chills or shortness of breath. In ED was noted to have mildly elevated lipase, and elevated BP. Hospitalist consulted for acute pancreatitis. Past Medical History Cardiac Medical History: Reports: Hyperlipidema, Hypertension Denies: Congestive Heart Failure, Coronary Artery Disease, Myocardial Infarction Pulmonary Medical History: Reports: Chronic Obstructive Pulmonary Disease (COPD) Denies: Asthma, Bronchitis, Pneumonia Neurological Medical History: Reports: Seizures - last 07/27 Endocrine Medical History: Reports: Diabetes Mellitus Type 1, Diabetes Mellitus Type 2 Renal/ Medical History: GI Medical History: Reports: Gastroesophageal Reflux Disease Musculoskeltal Medical History: Denies: Arthritis Skin Medical History: Psychiatric Medical History: Reports: Depression Hematology: Reports: Anemia - hx of Denies: Bleeding Tendencies Past Surgical History Past Surgical History: Reports: Section - x3, Hysterectomy Social History Smoking Status: Former Smoker Frequency of Alcohol Use: Social Hx Recreational Drug Use: Yes Drugs: Marijuana Hx Prescription Drug Abuse: No Family History Family History: DM, Hypertension Parental Family History Reviewed: Yes Children Family History Reviewed: Yes Sibling(s) Family History Reviewed.: Yes Medication/Allergy Home Medications: Atorvastatin Calcium [Lipitor 20 mg Tablet] 20 mg PO QHS 08/09/19 Insulin Aspart [Novolog Flexpen] See Protocol SQ MEALS 08/09/19 Levetiracetam [Keppra 500 mg Tablet] 500 mg PO Q12 08/09/19 Lipase/Protease/Amylase [Pancreaze-10 Capsule.] 1 cap PO ACHS 08/09/19 Omeprazole 20 mg PO DAILY 08/09/19 Sucralfate [Carafate 1 gm Tablet] 1 gm PO ACHS 08/09/19 Amlodipine Besylate [Norvasc 5 mg Tablet] 5 mg PO Q12 #60 tablet 08/12/19 Carvedilol [Coreg 12.5 mg Tablet] 25 mg PO Q12 15 Days #60 08/12/19 Chlorthalidone [Hygroton 25 mg Tablet] 25 mg PO DAILY #30 tablet 08/12/19 Lisinopril 40 mg PO DAILY #60 tablet 08/12/19 Ondansetron [Zofran Odt 4 mg Tablet] 4 mg PO Q4HP PRN 08/15/19 Polyethylene Glycol 3350 [Miralax Powder 17 gm/Packet] 1 packet PO DAILYP PRN 08/15/19 Insulin Glargine,Hum.rec.anlog [Lantus Insulin 100 Unit/1 ml 10 ml] 20 units SQ QAM #10 ml 08/16/19 Allergies/Adverse Reactions: hydrocodone [From [place]] Allergy (Severe, Verified 08/09/19 09:44) ? morphine Allergy (Severe, Verified 08/09/19 09:44) ? Penicillins Allergy (Severe, Verified 08/09/19 09:44) ? prednisone Allergy (Severe, Verified 08/09/19 09:44) Edema Review of Systems Review of Systems: as per hpi Physical Exam Vital Signs: Temp Pulse Resp BP Pulse Ox 98.4 F 94 16 183/101 H 100 08/15/19 17:02 08/15/19 17:02 08/15/19 17:02 08/15/19 17:02 08/15/19 17:02 Intake & Output 08/14/19 08/15/19 08/16/19 06:59 06:59 06:59 Intake Total 2240 Balance 2240 Weight 60.6 kg General appearance: PRESENT: no acute distress, well-developed, well-nourished Head exam: PRESENT: atraumatic, normocephalic Respiratory exam: PRESENT: clear to auscultation teddy. ABSENT: rales, rhonchi, wheezes Cardiovascular exam: PRESENT: RRR, tachycardia. ABSENT: diastolic murmur, rubs, systolic murmur GI/Abdominal exam: PRESENT: distended, normal bowel sounds, soft, tenderness. ABSENT: guarding, mass, organolmegaly, rebound Neurological exam: PRESENT: alert, awake, oriented to person, oriented to place, oriented to time, oriented to situation, CN II-XII grossly intact. ABSENT: motor sensory deficit Results Laboratory Results: 08/15/19 07:13 08/15/19 07:13 08/15/19 08/15/19 08/15/19 07:13 07:13 08:01 WBC 10.7 H RBC 3.63 L Hgb 10.6 L Hct 31.2 L MCV 86 MCH 29.3 MCHC 34.1 RDW 15.5 H Plt Count 484 H Seg Neutrophils % 66.3 Sodium 135.5 L Potassium 4.2 Chloride 100 Carbon Dioxide 26 Anion Gap 10 BUN 30 H Creatinine 2.13 H Est GFR ( Amer) 31 L Glucose 124 H Calcium 9.7 Lipase 905.0 H Urine Color YELLOW Urine Appearance CLOUDY Urine pH 6.0 Ur Specific [place] 1.009 Urine Protein 100 H Urine Glucose (UA) >=500 H Urine Ketones NEGATIVE Urine Blood SMALL H Urine Nitrite NEGATIVE Ur Leukocyte Esterase TRACE H Ur Squamous Epith Cells MODERATE Assessment and Plan - Diagnosis (1) Acute on chronic pancreatitis Is this a current diagnosis for this admission?: Yes Plan: History of acute on chronic recurrent pancreatitis. Denies EtOH abuse. Uses marijuana daily. CT scan showing calcification of the pancreas. Lipase elevated. Admit to floor, n.p.o., aggressive volume decision guided by volume status. Pain control with Tylenol, and IV Dilaudid as needed. Resume patient's pancrelipase once off n.p.o. status. (2) Abdominal pain Qualifiers: Abdominal location: epigastric Qualified Code(s): R10.13 - Epigastric pain Is this a current diagnosis for this admission?: Yes Plan: Secondary to acute on chronic pancreatitis. Patient had gastric emptying study and EGD recently which was normal and except for mild gastritis. Plan is #1. (3) CKD (chronic kidney disease) stage 3, GFR 30-59 ml/min Is this a current diagnosis for this admission?: Yes Plan: Most likely with uncontrolled hypertension and diabetes. Creatinine at baseline. Monitor electrolytes and volume status, replace electrolytes as needed. Avoid nephrotoxic meds. Outpatient PCP and nephrology follow-up. (4) Gastritis Qualifiers: Gastritis type: unspecified gastritis Chronicity: chronic Gastritis bleeding: without bleeding Qualified Code(s): K29.50 - Unspecified chronic gastritis without bleeding Is this a current diagnosis for this admission?: Yes Plan: EGD last month revealed fairly mild gastritis without any ulceration or bleeding. Continue Protonix and Carafate. (5) Hypertensive urgency Is this a current diagnosis for this admission?: Yes Plan: History of uncontrolled hypertension. Resume home meds. IV metoprolol hydralazine. Adjust meds as needed. Outpatient PCP follow-up. (6) Seizure disorder Is this a current diagnosis for this admission?: Yes Plan: History of seizure disorder on Keppra. Denies any recent seizure. Resume home meds. Seizure and aspiration precautions.
[2019-08-15] MEDS ORDERED: GLUCAGON,HUMAN RECOMB 1 MG INJ IM PRN (19:31)
[2019-08-15] MEDS ORDERED: DEXTROSE 50%-WATER 25 GM/50 ML DISP.SYRIN IV PRN ×2 (19:31)
[2019-08-15] MEDS ORDERED: DEXTROSE 40% GEL 15 GM TUBE PO PRN ×2 (19:31)
[2019-08-15] MEDS: CARVEDILOL 12.5 MG TABLET PO SCH (20:03)
[2019-08-15] MEDS: AMLODIPINE BESYLATE 5 MG TABLET PO SCH (20:05)
[2019-08-15] MEDS: CHLORTHALIDONE 25 MG TABLET PO SCH (20:05)
[2019-08-15] MEDS: LEVETIRACETAM 500 MG TABLET PO SCH (20:05)
[2019-08-15] MEDS: INSULIN LISPRO 100 UNIT/ML 3 ML VIAL SUBCUT SCH (20:07)
[2019-08-15] MEDS: SUCRALFATE 1 GM TABLET PO SCH (21:03)
[2019-08-15] MEDS: LIPASE/PROTEASE/AMYLASE 1 CAP CAPSULE.DR PO SCH (21:03)
[2019-08-15] MEDS: ATORVASTATIN CALCIUM 20 MG TABLET PO SCH (21:03)
[2019-08-15] MEDS ORDERED: INSULIN GLARGINE,HUM.REC.ANLOG 1,000 UNIT/10 ML VIAL SUBCUT SCH (22:00)
[2019-08-15] MEDS ORDERED: INSULIN LISPRO 100 UNIT/ML 3 ML VIAL SUBCUT SCH (22:00)
[2019-08-15] MEDS: FAMOTIDINE 20 MG TABLET PO SCH (22:11)
[2019-08-16] MEDS: INSULIN LISPRO 100 UNIT/ML 3 ML VIAL SUBCUT SCH ×5 (00:11→21:59)
[2019-08-16] MEDS: NORMAL SALINE 1000 ML 1,000 ML IV PRN ×2 (02:58→12:16)
[2019-08-16] MEDS: HYDROMORPHONE HCL INJ/PF 2 MG/ML AMPULE IV PRN ×5 (02:59→22:56)
[2019-08-16 06:04] LABS: ABSOLUTE EOSINOPHILS # (AUTO) 0.2 10^3/uL (0.0-0.6); ABSOLUTE LYMPHOCYTES (AUTO) 3.1 10^3/uL (0.5-4.7); ABSOLUTE MONOCYTES (AUTO) 0.6 10^3/uL (0.1-1.4); ABSOLUTE NEUT (AUTO) 3.1 10^3/uL (1.7-8.2); BASOPHILS % (AUTO) 0.4 % (0-2); EOSINOPHILS % (AUTO) 3.4 % (0-6); HEMATOCRIT 23.4 % (36.0-47.0); LYMPHOCYTES % (AUTO) 43.5 % (13-45); MEAN CORPUSCULAR HEMOGLOBIN 28.7 pg (27.0-33.4); MEAN CORPUSCULAR HGB CONC 33.6 g/dL (32.0-36.0); MEAN CORPUSCULAR VOLUME 85 fl (80-97); MONOCYTES % (AUTO) 8.9 % (3-13); PLATELET COUNT 357 10^3/uL (150-450); RED BLOOD COUNT 2.75 10^6/uL (3.72-5.28); RED CELL DISTRIBUTION WIDTH 15.5 % (11.5-14.0); SEGMENTED NEUTROPHILS % (AUTO) 43.8 % (42-78); TOTAL CELLS COUNTED % (AUTO) 100 %; WHITE BLOOD COUNT 7.1 10^3/uL (4.0-10.5)
[2019-08-16 06:17] LABS: ALBUMIN 3.3 g/dL (3.5-5.0); ALKALINE PHOSPHATASE 107 U/L (38-126); ASPARTATE AMINO TRANSFERASE 16 U/L (14-36); BILIRUBIN,TOTAL 0.2 mg/dL (0.2-1.3); BLOOD UREA NITROGEN 23 mg/dL (7-20); CALCIUM 8.7 mg/dL (8.4-10.2); CARBON DIOXIDE 25 mmol/L (22-30); CHLORIDE 108 mmol/L (98-107); GLUCOSE 64 mg/dL (75-110); POTASSIUM 3.9 mmol/L (3.6-5.0); TOTAL PROTEIN 6.1 g/dL (6.3-8.2)
[2019-08-16 06:18] LABS: ANION GAP 5 (5-19)
[2019-08-16 06:29] LABS: HEMOGLOBIN 7.9 g/dL (12.0-15.5)
[2019-08-16] MEDS: LIPASE/PROTEASE/AMYLASE 1 CAP CAPSULE.DR PO SCH ×4 (08:40→21:48)
[2019-08-16] MEDS: CARVEDILOL 12.5 MG TABLET PO SCH ×2 (08:42→21:50)
[2019-08-16] MEDS: AMLODIPINE BESYLATE 5 MG TABLET PO SCH ×2 (08:42→21:52)
[2019-08-16] MEDS: SUCRALFATE 1 GM TABLET PO SCH ×4 (08:42→21:49)
[2019-08-16] MEDS ORDERED: AMLODIPINE BESYLATE 5 MG TABLET PO ONE (09:15)
[2019-08-16] MEDS ORDERED: CARVEDILOL 12.5 MG TABLET PO ONE (10:00)
[2019-08-16] MEDS: CHLORTHALIDONE 25 MG TABLET PO SCH (10:12)
[2019-08-16] MEDS: FAMOTIDINE 20 MG TABLET PO SCH ×2 (10:12→21:48)
[2019-08-16] MEDS: LEVETIRACETAM 500 MG TABLET PO SCH ×2 (10:13→21:48)
[2019-08-16] MEDS: ENOXAPARIN SODIUM INJ 30 MG/0.3 ML DISP.SYRIN SUBCUT SCH (10:13)
[2019-08-16] MEDS: ONDANSETRON HCL INJ/PF 4 MG/2 ML SDV IV PRN (10:23)
--- NOTE | 2019-08-16 11:47 | PDOC PROGRESS REPORT ---
Subjective Progress Note for:: 08/16/19 Subjective:: JJ HOFFMAN is a 38 year old female with a history of diabetes mellitus, seizure disorder, chronic pancreatitis, presented to ED complaining of abdominal pain for the last 2 days. Pain is epigastric, radiating to the back and flank region. No alleviating or exacerbating factors identified. No association with food intake. Pain is described as sharp and aching, 5/5, associated with nausea and nonbloody nonbilious vomiting. Patient states she is passing flatus but denies any bowel movement in the past 2 days. She denies any chest pain fever, chills or shortness of breath. In ED was noted to have mildly elevated lipase, and elevated BP. Hospitalist consulted for acute pancreatitis. 08/16/2019. No acute events overnight. Patient noted to be hypoglycemic this morning, still complains of nausea abdominal pain, has had bowel movement. Tolerated p.o. intake. Discharge home tomorrow. Reason For Visit: HTN EMERGENCY, ACUTE ON CHRONIC PANCREATITIS, RONIT Physical Exam Vital Signs: Temp Pulse Resp BP Pulse Ox 97.4 F 83 17 143/90 H 100 08/16/19 09:56 08/16/19 09:56 08/16/19 09:56 08/16/19 09:56 08/16/19 09:56 Intake & Output 08/15/19 08/16/19 08/17/19 06:59 06:59 06:59 Intake Total 3840 Balance 3840 Weight 60.6 kg 57 kg General appearance: PRESENT: no acute distress, well-developed, well-nourished Head exam: PRESENT: atraumatic, normocephalic Respiratory exam: PRESENT: clear to auscultation teddy. ABSENT: rales, rhonchi, wheezes Cardiovascular exam: PRESENT: RRR. ABSENT: diastolic murmur, rubs, systolic m urmur GI/Abdominal exam: PRESENT: normal bowel sounds, soft, tenderness. ABSENT: distended, guarding, mass, organolmegaly, rebound Neurological exam: PRESENT: alert, awake, oriented to person, oriented to place, oriented to time, oriented to situation, CN II-XII grossly intact. ABSENT: motor sensory deficit Skin exam: PRESENT: dry, intact, warm. ABSENT: cyanosis, rash Results Laboratory Results: 08/16/19 05:30 08/16/19 05:30 08/16/19 08/16/19 05:30 05:30 WBC 7.1 RBC 2.75 L Hgb 7.9 L D Hct 23.4 L MCV 85 MCH 28.7 MCHC 33.6 RDW 15.5 H Plt Count 357 Seg Neutrophils % 43.8 Sodium 137.0 Potassium 3.9 Chloride 108 H Carbon Dioxide 25 Anion Gap 5 BUN 23 H Creatinine 1.79 H Est GFR ( Amer) 38 L Glucose 64 L Calcium 8.7 Total Bilirubin 0.2 AST 16 Alkaline Phosphatase 107 Total Protein 6.1 L Albumin 3.3 L Lipase 357.9 H Assessment and Plan - Diagnosis (1) Acute on chronic pancreatitis Is this a current diagnosis for this admission?: Yes Plan: History of recurrent pancreatitis with frequent hospitalization. Denies any etiology. Uses marijuana daily. IV fluids, antiemetics, PRN IV analgesics. (2) Abdominal pain Qualifiers: Abdominal location: epigastric Qualified Code(s): R10.13 - Epigastric pain Is this a current diagnosis for this admission?: Yes Plan: Secondary to acute on chronic pancreatitis. Patient had gastric emptying study and EGD recently which was normal and except for mild gastritis. Plan is #1. (3) CKD (chronic kidney disease) stage 3, GFR 30-59 ml/min Is this a current diagnosis for this admission?: Yes Plan: Most likely with uncontrolled hypertension and diabetes. Creatinine at baseline. Monitor electrolytes and volume status, replace electrolytes as needed. Avoid nephrotoxic meds. Outpatient PCP and nephrology follow-up. (4) Gastritis Qualifiers: Gastritis type: unspecified gastritis Chronicity: chronic Gastritis bleeding: without bleeding Qualified Code(s): K29.50 - Unspecified chronic gastritis without bleeding Is this a current diagnosis for this admission?: Yes Plan: History of gastritis. (5) Hypertensive urgency Is this a current diagnosis for this admission?: Yes Plan: History of uncontrolled hypertension. Resume home meds. IV metoprolol hydralazine. Adjust meds as needed. Outpatient PCP follow-up. (6) Seizure disorder Is this a current diagnosis for this admission?: Yes Plan: History of seizure disorder on Keppra. Denies any recent seizure. Resume home meds. Seizure and aspiration precautions. (7) Type 2 diabetes mellitus Is this a current diagnosis for this admission?: Yes Plan: History of uncontrolled diabetes mellitus with frequent RONIT. Noted to be hypoglycemic this morning, most likely to p.o. intolerance from acute pancreatitis. Continue diabetic diet, sliding scale, correctional insulin. Hypoglycemia protocol. Accu-Chek. Adjust as needed. (8) Uncontrolled diabetes mellitus Qualifiers: Diabetes mellitus type: other specified (including JERRELL) Glycemic state: with hyperglycemia Qualified Code(s): E13.65 - Other specified diabetes mellitus with hyperglycemia Is this a current diagnosis for this admission?: Yes
[2019-08-16] MEDS ORDERED: NORMAL SALINE 1000 ML 1,000 ML IV PRN (12:44)
[2019-08-16] MEDS: HYDRALAZINE HCL INJ/PF 20 MG/1 ML SDV IV PRN (16:54)
[2019-08-16] MEDS: ATORVASTATIN CALCIUM 20 MG TABLET PO SCH (21:47)
[2019-08-16] MEDS ORDERED: INSULIN GLARGINE,HUM.REC.ANLOG 1,000 UNIT/10 ML VIAL SUBCUT SCH (22:00)
[2019-08-17] MEDS: HYDRALAZINE HCL INJ/PF 20 MG/1 ML SDV IV PRN ×2 (01:51→12:17)
[2019-08-17] MEDS: HYDROMORPHONE HCL INJ/PF 2 MG/ML AMPULE IV PRN ×5 (03:13→20:48)
[2019-08-17] MEDS: INSULIN LISPRO 100 UNIT/ML 3 ML VIAL SUBCUT SCH ×4 (08:14→22:50)
[2019-08-17] MEDS: LIPASE/PROTEASE/AMYLASE 1 CAP CAPSULE.DR PO SCH ×4 (08:21→22:41)
[2019-08-17] MEDS: SUCRALFATE 1 GM TABLET PO SCH ×4 (08:21→22:41)
[2019-08-17] MEDS: ONDANSETRON HCL INJ/PF 4 MG/2 ML SDV IV PRN (08:23)
[2019-08-17] MEDS: CARVEDILOL 12.5 MG TABLET PO SCH ×2 (10:28→22:45)
[2019-08-17] MEDS: LEVETIRACETAM 500 MG TABLET PO SCH ×2 (10:28→22:42)
[2019-08-17] MEDS: FAMOTIDINE 20 MG TABLET PO SCH ×2 (10:28→22:41)
[2019-08-17] MEDS: CHLORTHALIDONE 25 MG TABLET PO SCH (10:28)
[2019-08-17] MEDS: AMLODIPINE BESYLATE 5 MG TABLET PO SCH ×2 (10:28→22:45)
[2019-08-17] MEDS: ENOXAPARIN SODIUM INJ 30 MG/0.3 ML DISP.SYRIN SUBCUT SCH (10:29)
--- NOTE | 2019-08-17 17:04 | PDOC PROGRESS REPORT ---
Subjective Progress Note for:: 08/17/19 Subjective:: JJ HOFFMAN is a 38 year old female with a history of diabetes mellitus, seizure disorder, chronic pancreatitis, presented to ED complaining of abdominal pain for the last 2 days. Pain is epigastric, radiating to the back and flank region. No alleviating or exacerbating factors identified. No association with food intake. Pain is described as sharp and aching, 5/5, associated with nausea and nonbloody nonbilious vomiting. Patient states she is passing flatus but denies any bowel movement in the past 2 days. She denies any chest pain fever, chills or shortness of breath. In ED was noted to have mildly elevated lipase, and elevated BP. Hospitalist consulted for acute pancreatitis. 08/16/2019. No acute events overnight. Patient noted to be hypoglycemic this morning, still complains of nausea abdominal pain, has had bowel movement. Tolerated p.o. intake. Discharge home tomorrow. 08/17/2019. Patient is still complaining of persistent abdominal pain, nausea vomiting, denies any fever, chills, chest pain, shortness of breath. Reason For Visit: HTN EMERGENCY, ACUTE ON CHRONIC PANCREATITIS, RONIT Physical Exam Vital Signs: Temp Pulse Resp BP Pulse Ox 98.6 F 99 15 144/93 H 99 08/17/19 15:41 08/17/19 15:41 08/17/19 15:41 08/17/19 15:41 08/17/19 15:41 Intake & Output 08/16/19 08/17/19 08/18/19 06:59 06:59 06:59 Intake Total 3840 2460 Balance 3840 2460 Weight 57 kg 60.6 kg General appearance: PRESENT: no acute distress, well-developed, well-nourished Head exam: PRESENT: atraumatic, normocephalic Respiratory exam: PRESENT: clear to auscultation teddy. ABSENT: rales, rhonchi, wheezes Cardiovascular exam: PRESENT: RRR. ABSENT: diastolic murmur, rubs, systolic murmur GI/Abdominal exam: PRESENT: normal bowel sounds, soft, tenderness. ABSENT: distended, guarding, mass, organolmegaly, rebound Neurological exam: PRESENT: alert, awake, oriented to person, oriented to place, oriented to time, oriented to situation, CN II-XII grossly intact. ABSENT: motor sensory deficit Results Laboratory Results: 08/16/19 05:30 08/16/19 05:30 Assessment and Plan - Diagnosis (1) Acute on chronic pancreatitis Is this a current diagnosis for this admission?: Yes Plan: History of recurrent pancreatitis with frequent hospitalization. Denies any etiology. Uses marijuana daily. IV fluids, antiemetics, PRN IV analgesics. (2) Abdominal pain Qualifiers: Abdominal location: epigastric Qualified Code(s): R10.13 - Epigastric pain Is this a current diagnosis for this admission?: Yes Plan: Secondary to acute on chronic pancreatitis. Patient had gastric emptying study and EGD recently which was normal and except for mild gastritis. Plan is #1. (3) CKD (chronic kidney disease) stage 3, GFR 30-59 ml/min Is this a current diagnosis for this admission?: Yes Plan: Most likely with uncontrolled hypertension and diabetes. Creatinine at baseline. Monitor electrolytes and volume status, replace electrolytes as needed. Avoid nephrotoxic meds. Outpatient PCP and nephrology follow-up. Had extensive discussion about the importance of good diabetes control, hypertension control keeping hydrated and avoiding nephrotoxic meds. (4) Gastritis Qualifiers: Gastritis type: unspecified gastritis Chronicity: chronic Gastritis bleeding: without bleeding Qualified Code(s): K29.50 - Unspecified chronic gastritis without bleeding Is this a current diagnosis for this admission?: Yes Plan: History of gastritis. (5) Hypertensive urgency Is this a current diagnosis for this admission?: Yes Plan: History of uncontrolled hypertension. Resume home meds. IV metoprolol hydralazine. Adjust meds as needed. Outpatie nt PCP follow-up. (6) Seizure disorder Is this a current diagnosis for this admission?: Yes Plan: History of seizure disorder on Keppra. Denies any recent seizure. Resume home meds. Seizure and aspiration precautions. (7) Type 2 diabetes mellitus Is this a current diagnosis for this admission?: Yes Plan: History of uncontrolled diabetes mellitus with frequent RONIT. Noted to be hypoglycemic this morning, most likely to p.o. intolerance from acute pancreatitis. Continue diabetic diet, sliding scale, correctional insulin. Hypoglycemia protocol. Accu-Chek. Adjust as needed. (8) Uncontrolled diabetes mellitus Qualifiers: Diabetes mellitus type: other specified (including JERRELL) Glycemic state: with hyperglycemia Qualified Code(s): E13.65 - Other specified diabetes mellitus with hyperglycemia Is this a current diagnosis for this admission?: Yes Plan: History of uncontrolled diabetes. Diabetic diet, basal, sliding and correctional insulin. Accu-Cheks. Hypoglycemic protocol.
[2019-08-17] MEDS ORDERED: INSULIN GLARGINE,HUM.REC.ANLOG 1,000 UNIT/10 ML VIAL SUBCUT SCH (22:00)
[2019-08-17] MEDS: ATORVASTATIN CALCIUM 20 MG TABLET PO SCH (22:41)
[2019-08-17] MEDS: HYDRALAZINE HCL 50 MG TABLET PO SCH (22:44)
[2019-08-18] MEDS: HYDROMORPHONE HCL INJ/PF 2 MG/ML AMPULE IV PRN ×3 (00:50→13:33)
[2019-08-18] MEDS: HYDRALAZINE HCL INJ/PF 20 MG/1 ML SDV IV PRN (04:09)
[2019-08-18] MEDS ORDERED: HYDROMORPHONE HCL INJ/PF 2 MG/ML AMPULE IV ONE (07:00)
[2019-08-18] MEDS: INSULIN LISPRO 100 UNIT/ML 3 ML VIAL SUBCUT SCH ×2 (08:00→11:17)
[2019-08-18] MEDS: LIPASE/PROTEASE/AMYLASE 1 CAP CAPSULE.DR PO SCH ×2 (08:29→11:19)
[2019-08-18] MEDS: SUCRALFATE 1 GM TABLET PO SCH ×2 (08:29→11:19)
[2019-08-18] MEDS ORDERED: ENOXAPARIN SODIUM INJ 40 MG/0.4 ML DISP.SYRIN SUBCUT SCH (10:00)
[2019-08-18] MEDS: AMLODIPINE BESYLATE 5 MG TABLET PO SCH (10:13)
[2019-08-18] MEDS: FAMOTIDINE 20 MG TABLET PO SCH (10:13)
[2019-08-18] MEDS: HYDRALAZINE HCL 50 MG TABLET PO SCH (10:14)
[2019-08-18] MEDS: ONDANSETRON HCL INJ/PF 4 MG/2 ML SDV IV PRN (11:16)
[2019-08-18] MEDS: LEVETIRACETAM 500 MG TABLET PO SCH (11:19)
[2019-08-18] MEDS: CHLORTHALIDONE 25 MG TABLET PO SCH (11:19)
[2019-08-18] MEDS: CARVEDILOL 12.5 MG TABLET PO SCH (11:20)
[2019-08-18 15:15] VITALS: BP 183/101
--- NOTE | 2019-08-20 14:34 | PDOC DISCHARGE SUMMARY ---
Impression - Admit/DC Date/PCP Admission Date/Primary Care Provider: 08/16/19 08:21 LYNNE OLMEDO Discharge Date: 08/18/19 - Discharge Diagnosis (1) Acute on chronic pancreatitis Is this a current diagnosis for this admission?: Yes (2) Abdominal pain Is this a current diagnosis for this admission?: Yes (3) CKD (chronic kidney disease) stage 3, GFR 30-59 ml/min Is this a current diagnosis for this admission?: Yes (4) Gastritis Is this a current diagnosis for this admission?: Yes (5) Hypertensive urgency Is this a current diagnosis for this admission?: Yes (6) Seizure disorder Is this a current diagnosis for this admission?: Yes (7) Uncontrolled diabetes mellitus Is this a current diagnosis for this admission?: Yes - Additional Information Discharge Diet: Diabetic Discharge Activity: Activity As Tolerated, Balance Activity w/Rest Referrals: [facility] [Provider Group] ([facility] will call patient for appointment. Patient informed 08/20/2019 @ [facility] AJIT PALOMINO MD [ACTIVE STAFF] - RONALD BARKER FNP-C [Primary Care Provider] - Follow up as needed Prescriptions: Hydralazine HCl [Apresoline 50 mg Tablet] 50 mg PO BID 30 Days #60 tablet Carvedilol 25 mg PO BID 30 Days #60 tablet Chlorthalidone [Hygroton 25 mg Tablet] 25 mg PO DAILY 30 Days #30 tablet Insulin Glargine,Hum.rec.anlog [Lantus Insulin 100 Unit/1 ml 10 ml] 18 unit SUBCUT QHS 30 Days #1 unit Amlodipine Besylate [Norvasc 5 mg Tablet] 5 mg PO BID 30 Days #60 tablet Oxycodone HCl/Acetaminophen [Oxycodone-Acetaminophen 10-325] 1 each PO Q8 PRN 2 Days #6 tablet PRN Reason: For Pain Promethazine HCl [Phenergan 25 mg Tablet] 25 mg PO ASDIR PRN 6 Days #24 tablet PRN Reason: Home Medications: Atorvastatin Calcium [Lipitor 20 mg Tablet] 20 mg PO QHS 08/09/19 Insulin Aspart [Novolog Flexpen] See Protocol SQ MEALS 08/09/19 Levetiracetam [Keppra 500 mg Tablet] 500 mg PO Q12 08/09/19 Lipase/Protease/Amylase [Pancreaze-10 Capsule.dr] 1 cap PO ACHS 08/09/19 Omeprazole 20 mg PO DAILY 08/09/19 Sucralfate [Carafate 1 gm Tablet] 1 gm PO ACHS 08/09/19 Ondansetron [Zofran Odt 4 mg Tablet] 4 mg PO Q4HP PRN 08/15/19 Polyethylene Glycol 3350 [Miralax Powder 17 gm/Packet] 1 packet PO DAILYP PRN 08/15/19 Amlodipine Besylate [Norvasc 5 mg Tablet] 5 mg PO BID 30 Days #60 tablet 08/18/19 Carvedilol 25 mg PO BID 30 Days #60 tablet 08/18/19 Chlorthalidone [Hygroton 25 mg Tablet] 25 mg PO DAILY 30 Days #30 tablet 08/18/19 Hydralazine HCl [Apresoline 50 mg Tablet] 50 mg PO BID 30 Days #60 tablet 08/18/19 Insulin Glargine,Hum.rec.anlog [Lantus Insulin 100 Unit/1 ml 10 ml] 18 unit SUBCUT QHS 30 Days #1 unit 08/18/19 Oxycodone HCl/Acetaminophen [Oxycodone-Acetaminophen 10-325] 1 each PO Q8 PRN 2 Days #6 tablet 08/18/19 Promethazine HCl [Phenergan 25 mg Tablet] 25 mg PO ASDIR PRN 6 Days #24 tablet 08/18/19 History of Present Illiness History of Present Illness: JJ HOFFMAN is a 38 year old female with a history of diabetes mellitus, seizure disorder, chronic pancreatitis, presented to ED complaining of abdominal pain for the last 2 days. Pain is epigastric, radiating to the back and flank region. No alleviating or exacerbating factors identified. No association with food intake. Pain is described as sharp and aching, 5/5, associated with nausea and nonbloody nonbilious vomiting. Patient states she is passing flatus but denies any bowel movement in the past 2 days. She denies any chest pain fever, chills or shortness of breath. In ED was noted to have mildly elevated lipase, and elevated BP. Hospitalist consulted for acute pancreatitis. Hospital Course Hospital Course: (1) Acute on chronic pancreatitis History of recurrent pancreatitis with frequent hospitalization. Uses marijuana daily. Was a started on IV fluids, antiemetics, PRN IV analgesics. Diet was advanced as tolerated. P.o. tolerant, patient, having normal bowel movement. (2) Abdominal pain Secondary to acute on chronic pancreatitis. Patient had gastric emptying study and EGD recently which was normal and except for mild gastritis. Fortunately patient has persistent abdominal pain due to chronic recurrent pancreatitis needs to be followed by statuary painter. Patient was advised to follow-up with pain management as an outpatient so stating that her PCP would not refer her. Our clinical performance nurse has kindly offered to make an appointment for her with Dr. Triana. Patient will be called and notified as soon as her appointment is available. (3) CKD (chronic kidney disease) stage 3, GFR 30-59 ml/min Most likely with uncontrolled hypertension and diabetes. Creatinine at baseline. Monitored electrolytes and volume status, replace electrolytes as needed. Avoid nephrotoxic meds. Outpatient PCP and nephrology follow-up. Had extensive discussion about the importance of good diabetes control, hypertension control keeping hydrated and avoiding nephrotoxic meds. I asked primary nurse to get her appointment with Dr. Anguiano, I was told that they would not give her an appointment unless she is referred by her PCP. Patient was advised to ask her PCP to refer her to a project architect. (4) Gastritis History of gastritis. Was resumed on PPIs. (5) Hypertensive urgency History of uncontrolled hypertension. Was restarted home meds. Medications adjusted. BP much improved however not optimized. Was discharged on carvedilol, hydralazine, chlorthalidone and amlodipine. Patient was extensively advised on importance of good BP control as she already has worsening CKD and diabetes. (6) Seizure disorder History of seizure disorder on Keppra. Denies any recent seizure. Restarted home meds. Aspiration and seizure precautions were implemented. (7) Type 2 diabetes mellitus History of uncontrolled diabetes mellitus with frequent RONIT. Noted to be hypoglycemic this morning, most likely to p.o. intolerance from acute pancreatitis. Continue diabetic diet, sliding scale, correctional insulin. Hypoglycemia protocol. Accu-Chek. Adjust as needed. Patient was extensively counseled on importance of diabetic management, she was also told about her labile readings and the risk of hypoglycemia. She was advised to frequently check her blood glucose and have frequent snacking to make sure she does not become hypoglycemic. Patient was advised to come to ED if she is p.o. intolerant. Physical Exam Vital Signs: Temp Pulse Resp BP Pulse Ox 97.5 F 90 18 183/101 H 100 08/18/19 15:13 08/18/19 15:13 08/18/19 15:13 08/18/19 15:13 08/18/19 15:13 General appearance: PRESENT: no acute distress, well-developed, well-nourished Head exam: PRESENT: atraumatic, normocephalic Respiratory exam: PRESENT: clear to auscultation teddy. ABSENT: rales, rhonchi, wheezes Cardiovascular exam: PRESENT: RRR. ABSENT: diastolic murmur, rubs, systolic murmur GI/Abdominal exam: PRESENT: tenderness - Epigastric tenderness. Neurological exam: PRESENT: alert, awake, oriented to person, oriented to place, oriented to time, oriented to situation, CN II-XII grossly intact. ABSENT: motor sensory deficit Skin exam: PRESENT: dry, intact, warm. ABSENT: cyanosis, rash Results Laboratory Results: WBC 7.1 10^3/uL (4.0-10.5) 08/16/19 05:30 RBC 2.75 10^6/uL (3.72-5.28) L 08/16/19 05:30 Hgb 7.9 g/dL (12.0-15.5) L D 08/16/19 05:30 Hct 23.4 % (36.0-47.0) L 08/16/19 05:30 MCV 85 fl (80-97) 08/16/19 05:30 MCH 28.7 pg (27.0-33.4) 08/16/19 05:30 MCHC 33.6 g/dL (32.0-36.0) 08/16/19 05:30 RDW 15.5 % (11.5-14.0) H 08/16/19 05:30 Plt Count 357 10^3/uL (150-450) 08/16/19 05:30 Lymph % (Auto) 43.5 % (13-45) 08/16/19 05:30 Union % (Auto) 8.9 % (3-13) 08/16/19 05:30 Eos % (Auto) 3.4 % (0-6) 08/16/19 05:30 Baso % (Auto) 0.4 % (0-2) 08/16/19 05:30 Absolute Neuts (auto) 3.1 10^3/uL (1.7-8.2) 08/16/19 05:30 Absolute Lymphs (auto) 3.1 10^3/uL (0.5-4.7) 08/16/19 05:30 Absolute Monos (auto) 0.6 10^3/uL (0.1-1.4) 08/16/19 05:30 Absolute Eos (auto) 0.2 10^3/uL (0.0-0.6) 08/16/19 05:30 Absolute Basos (auto) 0.0 10^3/uL (0.0-0.2) 08/16/19 05:30 Seg Neutrophils % 43.8 % (42-78) 08/16/19 05:30 Sodium 137.0 mmol/L (137-145) 08/16/19 05:30 Potassium 3.9 mmol/L (3.6-5.0) 08/16/19 05:30 Chloride 108 mmol/L (98-107) H 08/16/19 05:30 Carbon Dioxide 25 mmol/L (22-30) 08/16/19 05:30 Anion Gap 5 (5-19) 08/16/19 05:30 BUN 23 mg/dL (7-20) H 08/16/19 05:30 Creatinine 1.79 mg/dL (0.52-1.25) H 08/16/19 05:30 Est GFR ( Amer) 38 (>60) L 08/16/19 05:30 Est GFR (MDRD) Non-Af 32 (>60) L 08/16/19 05:30 Glucose 64 mg/dL (75-110) L 08/16/19 05:30 POC Glucose 235 mg/dL (70-110) H 08/18/19 14:34 Calcium 8.7 mg/dL (8.4-10.2) 08/16/19 05:30 Total Bilirubin 0.2 mg/dL (0.2-1.3) 08/16/19 05:30 Direct Bilirubin 0.0 mg/dL (0.0-0.4) 08/16/19 05:30 Neonat Total Bilirubin Not Reportable 08/16/19 05:30 Neonat Direct Bilirubin Not Reportable 08/16/19 05:30 Neonat Indirect Bili Not Reportable 08/16/19 05:30 AST 16 U/L (14-36) 08/16/19 05:30 ALT 9 U/L (<35) 08/16/19 05:30 Alkaline Phosphatase 107 U/L (38-126) 08/16/19 05:30 Total Protein 6.1 g/dL (6.3-8.2) L 08/16/19 05:30 Albumin 3.3 g/dL (3.5-5.0) L 08/16/19 05:30 Lipase 357.9 U/L (23-300) H 08/16/19 05:30 Urine Color YELLOW 08/15/19 08:01 Urine Appearance CLOUDY 08/15/19 08:01 Urine pH 6.0 (5.0-9.0) 08/15/19 08:01 Ur Specific [place] 1.009 08/15/19 08:01 Urine Protein 100 mg/dL (NEGATIVE) H 08/15/19 08:01 Urine Glucose (UA) >=500 mg/dL (NEGATIVE) H 08/15/19 08:01 Urine Ketones NEGATIVE mg/dL (NEGATIVE) 08/15/19 08:01 Urine Blood SMALL (NEGATIVE) H 08/15/19 08:01 Urine Nitrite NEGATIVE (NEGATIVE) 08/15/19 08:01 Urine Bilirubin NEGATIVE (NEGATIVE) 08/15/19 08:01 Urine Urobilinogen NEGATIVE mg/dL (<2.0) 08/15/19 08:01 Ur Leukocyte Esterase TRACE (NEGATIVE) H 08/15/19 08:01 Urine RBC NONE SEEN /HPF 08/15/19 08:01 Urine WBC 1-5 /HPF 08/15/19 08:01 Ur Squamous Epith Cells MODERATE /HPF 08/15/19 08:01 Urine Bacteria 2+ /HPF 08/15/19 08:01 Urine Ascorbic Acid NEGATIVE (NEGATIVE) 08/15/19 08:01 Plan Time Spent: Greater than 30 Minutes Stroke Is this a Stroke Patient?: No Acute Heart Failure - Is this a Heart Failure Patient?: No
== END 2019-08-18 16:28 | disposition home or self-care (01) | DRG 440 ==
LOC: ER 06:56 → EH 12:17 → 2N 16:50 → OBSVTOIN 08-16 08:21
PROVIDERS: ADMIT Internal Medicine; ATTEND Internal Medicine
PROC: 05HA33Z Insertion of Infusion Device into Left Brachial Vein, Percutaneous Approach (ICD-10-PCS; principal; 2019-08-16)
DX: K85.90 Acute pancreatitis without necrosis or infection, unspecified (principal); G40.909 Epilepsy, unspecified, not intractable, without status epilepticus; K86.1 Other chronic pancreatitis; N18.3 Chronic kidney disease, stage 3 (moderate); F12.90 Cannabis use, unspecified, uncomplicated; K29.70 Gastritis, unspecified, without bleeding; I16.0 Hypertensive urgency; E11.65 Type 2 diabetes mellitus with hyperglycemia; E11.22 Type 2 diabetes mellitus with diabetic chronic kidney disease; I12.9 Hypertensive chronic kidney disease with stage 1 through stage 4 chronic kidney disease, or unspecified chronic kidney disease; Z79.899 Other long term (current) drug therapy; Z79.4 Long term (current) use of insulin; Z83.3 Family history of diabetes mellitus; Z87.891 Personal history of nicotine dependence; Z82.49 Family history of ischemic heart disease and other diseases of the circulatory system
CPT/HCPCS: 36415; 80048; 80053; 81001; 82962; 83690; 85025; 93005; 93010; 96361; 96374; 96375; 99285; G0378; J0360; J1170; J1200; J1630; J1642; J1650; J1815; J1885; J2405; J3490; J7030; J7120

== ENCOUNTER 2019-09-14 17:37 | Emergency (ER) | payer MEDICAID ==
[2019-09-14 17:50] VITALS: BP 149/95
== END 2019-09-14 23:34 | disposition left against medical advice (07) ==
LOC: ER 17:37
DX: Z53.21 Procedure and treatment not carried out due to patient leaving prior to being seen by health care provider (principal)

== ENCOUNTER 2019-09-28 08:16 | Inpatient (IN) | payer MEDICAID ==
[2019-09-28] MEDS ORDERED: HYDROMORPHONE HCL INJ/PF 2 MG/ML AMPULE IV ONE ×2 (10:42→13:57)
[2019-09-28] MEDS ORDERED: ONDANSETRON HCL INJ/PF 4 MG/2 ML SDV IV ONE (10:42)
[2019-09-28] MEDS ORDERED: NORMAL SALINE 1000 ML 1,000 ML IV ONE ×2 (10:42→14:01)
--- NOTE | 2019-09-28 10:45 | ER Document Report ---
ED GI/ - General Chief Complaint: Nausea/Vomiting/Diarrhea Stated Complaint: NAUSEA,VOMITING,DIARRHEA Time Seen by Provider: 09/28/19 10:03 Mode of Arrival: Ambulatory Information source: Patient Notes: Patient presents complaint of upper abdominal pain that started yesterday with cough. Patient reports nausea vomiting diarrhea. Patient states she is vomited over 4 times and had diarrhea over 4 times. Patient denies any fever. Patient does complain of generalized body aches. Patient just found out that her sister and her child tested positive for the coronavirus. TRAVEL OUTSIDE OF THE [place] IN LAST 30 DAYS: No - HPI Patient complains to provider of: Abdominal pain, Diarrhea, Vomiting Onset: Yesterday Timing/Duration: Worse Quality of pain: Sharp Pain Level: 5 Location: Epigastric Vaginal bleeding (Compared to normal period): None Associated symptoms: Diarrhea, Nausea, Vomiting. denies: Chest pain, Fever, Urinary hesitancy, Urinary frequency, Urinary retention Exacerbated by: Denies Relieved by: Denies Similar symptoms previously: Yes Recently seen / treated by doctor: No - Related Data Allergies/Adverse Reactions: hydrocodone [From [place]] Allergy (Severe, Verified 09/28/19 08:38) ? morphine Allergy (Severe, Verified 09/28/19 08:38) ? Penicillins Allergy (Severe, Verified 09/28/19 08:38) ? prednisone Allergy (Severe, Verified 09/28/19 08:38) Edema Home Medications: lisinopril. lantus. metoprolol. novolog Past Medical History - General Information source: Patient - Social History Smoking Status: Current Every Day Smoker Chew tobacco use (# tins/day): No Frequency of alcohol use: None Drug Abuse: Marijuana Lives with: Family Family History: DM, Hypertension Patient has homicidal ideation: No - Past Medical History Cardiac Medical History: Reports: Hx Hypercholesterolemia, Hx Hypertension Pulmonary Medical History: Reports: Hx COPD Neurological Medical History: Reports: Hx Seizures - last 07/27. Denies: Hx Cerebrovascular Accident Endocrine Medical History: Reports: Hx Diabetes Mellitus Type 1, Hx Diabetes Mellitus Type 2. Denies: Hx Hyperthyroidism, Hx Hypothyroidism Renal/ Medical History: Reports: Hx Renal Insufficiency GI Medical History: Reports: Hx Gastroesophageal Reflux Disease, Hx Pancreatitis - Chronic Musculoskeletal Medical History: Denies Hx Arthritis, Reports Hx Musculoskeletal Trauma Skin Medical History: Psychiatric Medical History: Reports: Hx Anxiety Denies: Hx Depression Infectious Medical History: Past Surgical History: Reports: Hx Section - x3, Hx Hysterectomy - partial - Immunizations Immunizations up to date: Yes Hx Diphtheria, Pertussis, Tetanus Vaccination: Yes Review of Systems - Review of Systems Constitutional: No symptoms reported. denies: Fever EENT: No symptoms reported Cardiovascular: No symptoms reported. denies: Chest pain Respiratory: Cough. denies: Short of breath Gastrointestinal: Abdominal pain, Diarrhea, Nausea, Vomiting Genitourinary: Flank pain. denies: Dysuria Female Genitourinary: No symptoms reported Musculoskeletal: No symptoms reported Skin: No symptoms reported Hematologic/Lymphatic: No symptoms reported Neurological/Psychological: No symptoms reported Physical Exam - Vital signs Vitals: Temp Pulse Resp BP Pulse Ox 98.5 F 95 16 182/113 H 98 09/28/19 08:28 09/28/19 08:28 09/28/19 08:28 09/28/19 08:28 09/28/19 08:28 - General General appearance: Alert, Anxious In distress: None - HEENT Head: Normocephalic, Atraumatic Eyes: Normal Conjunctiva: Normal Nasal: Normal Mouth/Lips: Normal Mucous membranes: Normal Neck: Normal, Supple. No: Lymphadenopathy - Respiratory Respiratory status: No respiratory distress Chest status: Nontender Breath sounds: Normal. No: Rales, Rhonchi, Stridor, Wheezing Chest palpation: Normal - Cardiovascular Rhythm: Regular Heart sounds: S1 appreciated, S2 appreciated Murmur: No - Abdominal Inspection: Normal Distension: No distension Bowel sounds: Normal Tenderness: Tender - Upper abdominal tenderness, epigastric, left upper, right upper quadrant, Guarding Organomegaly: No organomegaly - Back Back: CVA tenderness - Left - Extremities General upper extremity: Normal inspection, Normal strength General lower extremity: Normal inspection, Normal strength - Neurological Neuro grossly intact: Yes Cognition: Normal [place] Coma Scale Eye Opening: Spontaneous [place] Coma Scale Verbal: Oriented [place] Com[place] Scale Motor: Obeys Commands [place] Com[place] Scale Total: 15 - Psychological Associated symptoms: Anxious, Tearful - Skin Skin Temperature: Warm Skin Moisture: Dry Skin Color: Normal Course - Re-evaluation Re-evalutation: 09/28/19 14:02 The patient was evaluated during the global Covid 19 pandemic, and that diagnosis was suspected/considered upon their initial presentation. Their chidi luation, treatment and testing was consistent with current guidelines for patients who present with complaints or symptoms that may be related to Covid 19. Patient hypertensive although does states she took her blood pressure medications today. Hydralazine ordered for patient's blood pressure at this time. Patient continues to complain of continued pain and nausea. Additional pain and nausea medication ordered. Patient does have elevated lipase worrisome for pancreatitis. Patient does have increased BUN and creatinine as well. IV fluids have been ordered. Attempted consultation with hospitalist for need for admission, no answer when the lead number was dialed, will attempt to retry. 09/28/19 14:[address] Merchant who agrees to evaluate patient for admission. - Vital Signs Vital signs: Temp Pulse Resp BP Pulse Ox 98 F 95 16 156/97 H 100 09/28/19 14:46 09/28/19 14:46 09/28/19 18:31 09/28/19 18:31 09/28/19 18:31 - Laboratory Result Diagrams: 09/28/19 11:22 09/28/19 11:22 Laboratory results interpreted by me: 09/28/19 09/28/19 09/28/19 11:22 11:22 11:22 Hgb 10.7 L Hct 32.3 L RDW 15.1 H D-Dimer Sodium 135.1 L BUN 21 H Creatinine 1.69 H Est GFR ( Amer) 41 L Est GFR (MDRD) Non-Af 34 L Glucose 334 H Alkaline Phosphatase 127 H Amylase 246 H Lipase 2191.5 H Urine Protein 100 H Urine Glucose (UA) >=500 H Urine Ketones TRACE H Urine Blood SMALL H 09/28/19 11:35 Hgb Hct RDW D-Dimer 0.53 H Sodium BUN Creatinine Est GFR ( Amer) Est GFR (MDRD) Non-Af Glucose Alkaline Phosphatase Amylase Lipase Urine Protein Urine Glucose (UA) Urine Ketones Urine Blood Discharge - Discharge Clinical Impression: Acute on chronic pancreatitis, Intractable nausea and vomiting, Exposure to COVID-19 virus Hypertension Qualifiers: Hypertension type: unspecified Qualified Code(s): I10 - Essential (primary) hypertension Condition: Fair Disposition: ADMITTED INPATIENT Admitting Provider: Mayur (Hospitalist) Unit Admitted: Medical Floor
[2019-09-28 12:07] LABS: ABSOLUTE EOSINOPHILS # (AUTO) 0.1 10^3/uL (0.0-0.6); ABSOLUTE MONOCYTES (AUTO) 0.4 10^3/uL (0.1-1.4); ABSOLUTE NEUT (AUTO) 4.8 10^3/uL (1.7-8.2); BASOPHILS % (AUTO) 0.6 % (0-2); EOSINOPHILS % (AUTO) 1.1 % (0-6); HEMATOCRIT 32.3 % (36.0-47.0); HEMOGLOBIN 10.7 g/dL (12.0-15.5); MEAN CORPUSCULAR HGB CONC 33.2 g/dL (32.0-36.0); MEAN CORPUSCULAR VOLUME 84 fl (80-97); MONOCYTES % (AUTO) 5.9 % (3-13); PLATELET COUNT 323 10^3/uL (150-450); RED BLOOD COUNT 3.83 10^6/uL (3.72-5.28); RED CELL DISTRIBUTION WIDTH 15.1 % (11.5-14.0); SEGMENTED NEUTROPHILS % (AUTO) 65.4 % (42-78); TOTAL CELLS COUNTED % (AUTO) 100 %; WHITE BLOOD COUNT 7.3 10^3/uL (4.0-10.5)
[2019-09-28 12:09] LABS: VENOUS BLOOD BASE EXCESS -5.1 mmol/L; VENOUS BLOOD HCO3 21.2 mmol/L (20-32); VENOUS BLOOD PCO2 43.5 mmHg (35-63); VENOUS BLOOD PH 7.31 (7.30-7.42)
--- NOTE | 2019-09-28 12:09 | RADIOLOGY REPORT (SQ) ---
EXAM DESCRIPTION: CHEST SINGLE VIEW IMAGES COMPLETED DATE/TIME: 09/28/2019 11:57 am REASON FOR STUDY: cough COMPARISON: 09/15/2019 EXAM PARAMETERS: NUMBER OF VIEWS: One view. TECHNIQUE: Single frontal radiographic view of the chest acquired. RADIATION DOSE: NA LIMITATIONS: None. FINDINGS: LUNGS AND PLEURA: No opacities, masses or pneumothorax. No pleural effusion. MEDIASTINUM AND HILAR STRUCTURES: No masses. Contour normal. HEART AND VASCULAR STRUCTURES: Heart normal in size. Normal vasculature. BONES: No acute findings. HARDWARE: Right internal jugular base chest port with catheter tip at SVC. OTHER: Pancreatic calcifications. IMPRESSION: No focal airspace disease or other evidence of acute intrathoracic process. TECHNICAL DOCUMENTATION: JOB ID: [id number] 2010 [employer]- All Rights Reserved Reading location - IP/workstation name: [email or web address]
[2019-09-28 12:12] LABS: AMORPHOUS SEDIMENT,URINE TRACE /HPF; APPEARANCE,URINE CLOUDY; BILIRUBIN,URINE NEGATIVE (NEGATIVE); COLOR,URINE YELLOW; GLUCOSE, URINE >=500 mg/dL (NEGATIVE); KETONES,URINE TRACE mg/dL (NEGATIVE); LEUKOCYTE ESTERASE,URINE NEGATIVE (NEGATIVE); NITRITE,URINE NEGATIVE (NEGATIVE); PROTEIN,URINE 100 mg/dL (NEGATIVE); URINE SPECIFIC GRAVITY 1.016; UROBILINOGEN,URINE NEGATIVE mg/dL (<2.0)
[2019-09-28 12:32] LABS: ALBUMIN 3.9 g/dL (3.5-5.0); ALKALINE PHOSPHATASE 127 U/L (38-126); AMYLASE 246 U/L (30-110); ANION GAP 7 (5-19); ASPARTATE AMINO TRANSFERASE 20 U/L (14-36); BILIRUBIN,DIRECT 0.1 mg/dL (0.0-0.4); BILIRUBIN,TOTAL 0.4 mg/dL (0.2-1.3); BLOOD UREA NITROGEN 21 mg/dL (7-20); CALCIUM 9.1 mg/dL (8.4-10.2); CARBON DIOXIDE 24 mmol/L (22-30); CHLORIDE 104 mmol/L (98-107); CREATINE KINASE 82 U/L (30-135); GLUCOSE 334 mg/dL (75-110); POTASSIUM 4.5 mmol/L (3.6-5.0)
[2019-09-28 12:40] LABS: URINE AMPHETAMINES SCREEN NEGATIVE; URINE BARBITURATES SCREEN NEGATIVE; URINE BENZODIAZEPINES SCREEN NEGATIVE; URINE COCAINE SCREEN NEGATIVE; URINE METHADONE SCREEN NEGATIVE; URINE PHENCYCLIDINE SCREEN NEGATIVE
[2019-09-28 12:43] LABS: URINE MARIJUANA (THC) SCREEN UNCONFIRMED POSITIVE
[2019-09-28] MEDS ORDERED: HYDRALAZINE HCL INJ/PF 20 MG/1 ML SDV IV ONE (13:32)
[2019-09-28] MEDS ORDERED: DIPHENHYDRAMINE HCL 50 MG/ML VIAL IV ONE (13:57)
[2019-09-28] MEDS ORDERED: METOCLOPRAMIDE HCL INJ/PF 10 MG/2 ML SDV IV ONE (13:57)
[2019-09-28] MEDS ORDERED: METOPROLOL TARTRATE 25 MG TABLET PO ONE (16:31)
[2019-09-28] MEDS ORDERED: MAG HYDROX/AL HYDROX/SIMETH SUSP 30 ML UDCUP PO PRN (18:27)
[2019-09-28] MEDS ORDERED: ACETAMINOPHEN 325 MG TABLET PO PRN (18:27)
[2019-09-28] MEDS ORDERED: ACETAMINOPHEN 650 MG SUPP.RECT PR PRN (18:27)
[2019-09-28] MEDS ORDERED: GLUCAGON,HUMAN RECOMB 1 MG INJ SUBCUT PRN (18:27)
[2019-09-28] MEDS ORDERED: DEXTROSE 40% GEL 15 GM TUBE PO PRN ×2 (18:27)
[2019-09-28] MEDS ORDERED: DEXTROSE 50%-WATER 25 GM/50 ML DISP.SYRIN IV PRN ×2 (18:27)
[2019-09-28 18:38] LABS: INTERNATIONAL RATION (INR) 1.01; PROTHROMBIN TIME 13.5 SEC (11.4-15.4)
--- NOTE | 2019-09-28 18:40 | PDOC H&P ---
History of Present Illness Admission Date/PCP: 09/28/19 17:10 LYNNE OLMEDO Patient complains of: abdominal pain, nausea, vomiting History of Present Illness: JJ HOFFMAN is a 39 year old female who was discharged from the hospital 5 days ago. She is chronically hospitalized with recurrent pancreatitis and abdominal pain. She has uncontrolled diabetes. She chronically test positive for marijuana. She states that several days ago she started to have her abdominal pain back. In addition she had pain around the left flank. She denies any hematuria or dysuria. Her glucose was 334. Her lipase was 2191.5 with an elevated amylase of 246. She does have a normal white blood cell count. BUN and creatinine are 21 and 1.69 respectively. This is in fact close to her baseline. She will be made n.p.o. We will institute insulin therapy. Analge ariana will be available as well as antiemetic medications. Additionally her daughter, sister and mother all recently tested positive for Covid-19. This certainly puts her at risk and will be tested and classified person under investigation.. Past Medical History Cardiac Medical History: Reports: Hyperlipidema, Hypertension Denies: Atrial Fibrillation, Congestive Heart Failure, Coronary Artery Disease, DVT, Myocardial Infarction, Peripheral Vascular Disease, Pulmonary Embolism Pulmonary Medical History: Reports: Chronic Obstructive Pulmonary Disease (COPD) Denies: Asthma, Bronchitis, Pneumonia, Sleep Apnea Neurological Medical History: Reports: Seizures - last 07/27 Endocrine Medical History: Reports: Diabetes Mellitus Type 1, Diabetes Mellitus Type 2 Denies: Hyperthyroidism, Hypothyroidism Renal/ Medical History: GI Medical History: Reports: Gastroesophageal Reflux Disease Musculoskeltal Medical History: Denies: Arthritis Skin Medical History: Psychiatric Medical History: Denies: Depression Hematology: Reports: Anemia - hx of Denies: Bleeding Tendencies, Heparin Induced Thrombocytopenia Past Surgical History Past Surgical History: Reports: Section - x3, Hysterectomy - partial, Other - Recent Port-A-Cath placement Social History Information Source: Patient, [facility] Records Lives with: Family Smoking Status: Current Every Day Smoker Electronic Cigarette use?: No Frequency of Alcohol Use: Social Hx Recreational Drug Use: Yes Drugs: Marijuana Hx Prescription Drug Abuse: No - Advance Directive Resuscitation Status: Full Code Surrogate healthcare decision maker:: Her mother Felicita Simpson Family History Family History: DM, Hypertension Parental Family History Reviewed: Yes Children Family History Reviewed: Yes Sibling(s) Family History Reviewed.: Yes Medication/Allergy Home Medications: Insulin Aspart [Novolog Flexpen] 0 units SQ .SLIDINGSCALE 08/09/19 Insulin Glargine,Hum.rec.anlog [Lantus Insulin 100 Unit/1 ml 10 ml] 22 unit SUBCUT QHS 09/03/19 Levetiracetam [Keppra 500 mg Tablet] 500 mg PO Q12 09/15/19 Promethazine HCl [Phenergan 25 mg Tablet] 25 mg PO Q6HP PRN 09/15/19 Acetaminophen [Tylenol 325 mg Tablet] 650 mg PO Q4HP PRN tablet 09/19/19 Lipase/Protease/Amylase [Pancreaze-10 Capsule.dr] 1 cap PO BIDACBS #60 capsule.dr 09/19/19 Metoprolol Tartrate [Lopressor 25 mg Tablet] 25 mg PO Q12 #60 tablet 09/19/19 Promethazine HCl [Phenergan 25 mg Tablet] 25 mg PO Q6HP PRN #12 tablet 09/19/19 Tramadol HCl [Ultram 50 mg Tablet] 50 mg PO Q6HP PRN #20 tablet 09/19/19 Allergies/Adverse Reactions: hydrocodone [From [place]] Allergy (Severe, Verified 09/28/19 08:38) ? morphine Allergy (Severe, Verified 09/28/19 08:38) ? Penicillins Allergy (Severe, Verified 09/28/19 08:38) ? prednisone Allergy (Severe, Verified 09/28/19 08:38) Edema Review of Systems All systems: reviewed and no additional remarkable complaints except as stated Constitutional: PRESENT: fatigue Gastrointestinal: PRESENT: abdominal pain, nausea, vomiting, other - Left flank pain Physical Exam Vital Signs: Temp Pulse Resp BP Pulse Ox 98 F 95 17 165/101 H 96 09/28/19 14:46 09/28/19 14:46 09/28/19 17:03 09/28/19 17:03 09/28/19 17:03 Intake & Output 09/27/19 09/28/19 09/29/19 06:59 06:59 06:59 Intake Total 1000 Balance 1000 Weight 54 kg General appearance: PRESENT: cooperative, thin, well-developed, well-nourished, other - Moderate distress Head exam: PRESENT: atraumatic, normocephalic Eye exam: PRESENT: conjunctiva pink, EOMI. ABSENT: scleral icterus Ear exam: PRESENT: normal external ear exam. ABSENT: bleeding, drainage Mouth exam: PRESENT: dry mucosa, tongue midline Teeth exam: ABSENT: edentulous Neck exam: PRESENT: full ROM. ABSENT: carotid bruit, JVD, lymphadenopathy Respiratory exam: PRESENT: clear to auscultation teddy, symmetrical, unlabored. ABSENT: accessory muscle use, rales, rhonchi, tachypnea, wheezes Cardiovascular exam: PRESENT: RRR, +S1, +S2. ABSENT: bradycardia, diastolic murmur, irregular rhythm, systolic murmur, tachycardia GI/Abdominal exam: PRESENT: diminished bowel sounds, soft, tenderness - Epigastrium and left flank. ABSENT: distended, guarding Rectal exam: PRESENT: deferred Gentrourinary exam: ABSENT: indwelling catheter Extremities exam: ABSENT: joint swelling, pedal edema Musculoskeletal exam: PRESENT: ambulatory, normal inspection Neurological exam: PRESENT: alert, awake, oriented to person, oriented to place, oriented to time, oriented to situation, CN II-XII grossly intact. ABSENT: altered, motor sensory deficit Psychiatric exam: PRESENT: appropriate affect - Affect reflects her current clinical illness. ABSENT: agitated, anxious Focused psych exam: ABSENT: delusional, paranoid, restlessness Skin exam: PRESENT: dry, normal color, warm. ABSENT: rash Results Laboratory Results: 09/28/19 11:22 09/28/19 11:22 09/28/19 09/28/19 09/28/19 11:22 11:22 11:22 WBC 7.3 RBC 3.83 Hgb 10.7 L Hct 32.3 L MCV 84 MCH 28.0 MCHC 33.2 RDW 15.1 H Plt Count 323 Seg Neutrophils % 65.4 VBG pH 7.31 VBG pCO2 43.5 VBG HCO3 21.2 VBG Base Excess -5.1 Sodium 135.1 L Potassium 4.5 Chloride 104 Carbon Dioxide 24 Anion Gap 7 BUN 21 H Creatinine 1.69 H Est GFR ( Amer) 41 L Glucose 334 H Calcium 9.1 Total Bilirubin 0.4 AST 20 Alkaline Phosphatase 127 H Total Protein 7.0 Albumin 3.9 Amylase 246 H Lipase 2191.5 H Urine Color Urine Appearance Urine pH Ur Specific [place] Urine Protein Urine Glucose (UA) Urine Ketones Urine Blood Urine Nitrite Ur Leukocyte Esterase Urine WBC (Auto) Urine RBC (Auto) 09/28/19 11:22 WBC RBC Hgb Hct MCV MCH MCHC RDW Plt Count Seg Neutrophils % VBG pH VBG pCO2 VBG HCO3 VBG Base Excess Sodium Potassium Chloride Carbon Dioxide Anion Gap BUN Creatinine Est GFR ( Amer) Glucose Calcium Total Bilirubin AST Alkaline Phosphatase Total Protein Albumin Amylase Lipase Urine Color YELLOW Urine Appearance CLOUDY Urine pH 5.0 Ur Specific [place] 1.016 Urine Protein 100 H Urine Glucose (UA) >=500 H Urine Ketones TRACE H Urine Blood SMALL H Urine Nitrite NEGATIVE Ur Leukocyte Esterase NEGATIVE Urine WBC (Auto) 12 Urine RBC (Auto) 0 09/28/19 11:22 Creatine Kinase 82 Impressions: Chest X-Ray 09/28/19 10:43 IMPRESSION: No focal airspace disease or other evidence of acute intrathoracic process. Assessment and Plan - Diagnosis (1) Acute on chronic pancreatitis Is this a current diagnosis for this admission?: Yes Plan: As per every admission she will be n.p.o. She will get IV fluids. We will monitor her glucose. It typically takes 3 to 4 days to turn her around. (2) Cannabis abuse Is this a current diagnosis for this admission?: Yes Plan: The patient test positive every admission to the hospital. Did rehabilitation counsellor her on the adverse effects including hyperemesis. This does not seem to have any effect. (3) Hyperglycemia due to diabetes mellitus Is this a current diagnosis for this admission?: Yes Plan: The patient will be on IV fluids. She will be n.p.o. for her pancreatitis. We will initiate Accu-Cheks with sliding scale. When she begins an oral diet we will add back Lantus. (4) Exposure to COVID-19 virus Is this a current diagnosis for this admission?: Yes Plan: Multiple family members recently diagnosed. The patient has been tested and will be remanded to the COVID units until results are confirmed (5) CKD (chronic kidney disease) stage 3, GFR 30-59 ml/min Is this a current diagnosis for this admission?: Yes Plan: Continue IV fluids. Monitor renal function. (6) Chronic upper abdominal pain Is this a current diagnosis for this admission?: Yes Plan: Secondary to pancreatitis. Analgesia will be available. (7) Cannabis use disorder, severe, dependence Is this a current diagnosis for this admission?: Yes Plan: The patient test positive for marijuana at every admission. She has been cou nseled on multiple reasons to stop including hyperemesis. (8) COPD (chronic obstructive pulmonary disease) Qualifiers: Emphysema type: unspecified Is this a current diagnosis for this admission?: Yes Plan: History of COPD. Currently stable. If needed we will institute nebulizer therapy. - Time Time Spent with patient: 35 or more minutes Smoking Cessation Education: 3 to 10 minutes Medications reviewed and adjusted accordingly: Yes Anticipated Discharge Disposition: Home with Home Health Anticipated Discharge Timeframe: Likely 4 to 5 days - Inpatient Certification Based on my medical assessment, after consideration of the patient's comorbidities, presenting symptoms, or acuity I expect that the services needed warrant INPATIENT care.: Yes I certify that my determination is in accordance with my understanding of Medicare's requirements for reasonable and necessary INPATIENT services [42 CFR 412.3e].: Yes Medical Necessity: Failure to Improve With Outpatient Therapy, Need Close Monitoring Due to Risk of Patient Decompensation, Need For IV Fluids, Need for P ain Control Post Hospital Care: D/C or Transfer Summary
[2019-09-28 18:41] LABS: D-DIMER 0.53 ug/mL (0.00-0.50)
[2019-09-28 19:03] LABS: C-REACTIVE PROTEIN < 5.0 mg/L (<10.0)
[2019-09-28] MEDS: HYDROMORPHONE HCL INJ/PF 2 MG/ML AMPULE IV PRN (22:16)
[2019-09-28] MEDS: FAMOTIDINE INJ/PF 20 MG/2 ML SDV IV SCH (22:19)
[2019-09-28] MEDS: LEVETIRACETAM 500 MG TABLET PO SCH (22:21)
[2019-09-28] MEDS: HEPARIN SOD (PORCINE) 5,000 UNIT/ML 1 ML VIAL SUBCUT SCH (22:22)
[2019-09-28] MEDS: METOPROLOL TARTRATE 25 MG TABLET PO SCH (22:27)
[2019-09-28] MEDS: PROMETHAZINE HCL INJ 25 MG/1 ML VIAL IV PRN (23:38)
[2019-09-29] MEDS: INSULIN LISPRO 100 UNIT/ML 3 ML VIAL SUBCUT SCH ×4 (00:34→21:07)
[2019-09-29] MEDS ORDERED: HYDRALAZINE HCL INJ/PF 20 MG/1 ML SDV ONE (02:29)
[2019-09-29] MEDS: HYDRALAZINE HCL INJ/PF 20 MG/1 ML SDV IV PRN ×2 (02:30→20:10)
[2019-09-29] MEDS ORDERED: METOPROLOL TARTRATE PF/INJ 5 MG/5 ML SDV IV PRN (02:40)
[2019-09-29] MEDS: HEPARIN SOD (PORCINE) 5,000 UNIT/ML 1 ML VIAL SUBCUT SCH ×3 (05:48→21:06)
[2019-09-29] MEDS: HYDROMORPHONE HCL INJ/PF 2 MG/ML AMPULE IV PRN ×4 (05:49→21:06)
[2019-09-29 07:04] LABS: ABSOLUTE BASOPHILS # (AUTO) 0.1 10^3/uL (0.0-0.2); ABSOLUTE EOSINOPHILS # (AUTO) 0.1 10^3/uL (0.0-0.6); ABSOLUTE LYMPHOCYTES (AUTO) 2.6 10^3/uL (0.5-4.7); ABSOLUTE MONOCYTES (AUTO) 0.7 10^3/uL (0.1-1.4); ABSOLUTE NEUT (AUTO) 4.6 10^3/uL (1.7-8.2); BASOPHILS % (AUTO) 0.7 % (0-2); EOSINOPHILS % (AUTO) 0.8 % (0-6); HEMATOCRIT 28.4 % (36.0-47.0); HEMOGLOBIN 9.5 g/dL (12.0-15.5); LYMPHOCYTES % (AUTO) 32.8 % (13-45); MEAN CORPUSCULAR HEMOGLOBIN 28.4 pg (27.0-33.4); MEAN CORPUSCULAR HGB CONC 33.3 g/dL (32.0-36.0); MEAN CORPUSCULAR VOLUME 85 fl (80-97); MONOCYTES % (AUTO) 8.5 % (3-13); PLATELET COUNT 292 10^3/uL (150-450); RED BLOOD COUNT 3.34 10^6/uL (3.72-5.28); RED CELL DISTRIBUTION WIDTH 14.7 % (11.5-14.0); SEGMENTED NEUTROPHILS % (AUTO) 57.2 % (42-78); TOTAL CELLS COUNTED % (AUTO) 100 %
[2019-09-29 07:18] LABS: ANION GAP 7 (5-19); BLOOD UREA NITROGEN 21 mg/dL (7-20); CALCIUM 8.9 mg/dL (8.4-10.2); CARBON DIOXIDE 21 mmol/L (22-30); CHLORIDE 109 mmol/L (98-107); GLUCOSE 140 mg/dL (75-110); POTASSIUM 4.2 mmol/L (3.6-5.0)
[2019-09-29] MEDS: METOPROLOL TARTRATE 25 MG TABLET PO SCH ×2 (11:14→21:06)
[2019-09-29] MEDS: FAMOTIDINE INJ/PF 20 MG/2 ML SDV IV SCH ×2 (11:14→22:30)
[2019-09-29] MEDS: LEVETIRACETAM 500 MG TABLET PO SCH ×2 (11:14→21:06)
[2019-09-29] MEDS: PROMETHAZINE HCL INJ 25 MG/1 ML VIAL IV PRN ×2 (11:15→16:30)
--- NOTE | 2019-09-29 12:19 | PDOC PROGRESS REPORT ---
Subjective Progress Note for:: 09/29/19 Subjective:: Patient in discomfort. She does state that she feels better than yesterday. Has had no vomiting. Reason For Visit: POSSIBLE COVID 19 INFECTION,PANCREATITIS, Physical Exam Vital Signs: Temp Pulse Resp BP Pulse Ox 98.1 F 98 18 123/67 97 09/29/19 09:02 09/29/19 09:02 09/29/19 09:02 09/29/19 09:02 09/29/19 09:02 Intake & Output 09/28/19 09/29/19 09/30/19 06:59 06:59 06:59 Intake Total 1999 Balance 1999 Weight 54.5 kg General appearance: PRESENT: cooperative, well-developed, other - Moderate distress Head exam: PRESENT: atraumatic, normocephalic Respiratory exam: PRESENT: clear to auscultation teddy, symmetrical, unlabored. ABSENT: prolonged expiratory phas, rales, rhonchi, tachypnea, wheezes Cardiovascular exam: PRESENT: RRR, +S1, +S2. ABSENT: bradycardia, diastolic murmur, irregular rhythm, systolic murmur, tachycardia GI/Abdominal exam: PRESENT: hypoactive bowel sounds, soft, tenderness. ABSENT: distended Rectal exam: PRESENT: deferred Gentrourinary exam: ABSENT: indwelling catheter Extremities exam: ABSENT: pedal edema Musculoskeletal exam: PRESENT: ambulatory Neurological exam: PRESENT: alert, awake, oriented to person, oriented to place, oriented to time, oriented to situation, CN II-XII grossly intact. ABSENT: altered Psychiatric exam: PRESENT: appropriate affect - Affect reflects her pain. ABSENT: agitated, anxious Focused psych exam: ABSENT: delusional, paranoid, restlessness Skin exam: PRESENT: dry, normal color, warm. ABSENT: rash Results Laboratory Results: 09/29/19 06:10 09/29/19 06:10 09/28/19 09/28/19 09/28/19 11:22 11:22 11:35 WBC RBC Hgb Hct MCV MCH MCHC RDW Plt Count Seg Neutrophils % VBG pH 7.31 VBG pCO2 43.5 VBG HCO3 21.2 VBG Base Excess -5.1 Sodium 135.1 L Potassium 4.5 Chloride 104 Carbon Dioxide 24 Anion Gap 7 BUN 21 H Creatinine 1.69 H Est GFR ( Amer) 41 L Glucose 334 H Calcium 9.1 Magnesium Ferritin 26.20 Total Bilirubin 0.4 AST 20 Alkaline Phosphatase 127 H C-Reactive Protein < 5.0 Total Protein 7.0 Albumin 3.9 Amylase 246 H Lipase 2191.5 H 09/29/19 09/29/19 06:10 06:10 WBC 8.0 RBC 3.34 L Hgb 9.5 L Hct 28.4 L MCV 85 MCH 28.4 MCHC 33.3 RDW 14.7 H Plt Count 292 Seg Neutrophils % 57.2 VBG pH VBG pCO2 VBG HCO3 VBG Base Excess Sodium 137.1 Potassium 4.2 Chloride 109 H Carbon Dioxide 21 L Anion Gap 7 BUN 21 H Creatinine 1.67 H Est GFR ( Amer) 41 L Glucose 140 H Calcium 8.9 Magnesium 1.9 Ferritin Total Bilirubin AST Alkaline Phosphatase C-Reactive Protein Total Protein Albumin Amylase Lipase 528.9 H 09/28/19 11:22 Creatine Kinase 82 Impressions: Chest X-Ray 09/28/19 10:43 IMPRESSION: No focal airspace disease or other evidence of acute intrathoracic process. Assessment and Plan - Diagnosis (1) Acute on chronic pancreatitis Is this a current diagnosis for this admission?: Yes Plan: Lipase is down to 528.9 today. Will initiate trial of clear liquids and resume IV fluids. (2) Hyperglycemia due to diabetes mellitus Is this a current diagnosis for this admission?: Yes Plan: Significant improvement. Glucose down to 140 today. Continue current regimen. (3) Exposure to COVID-19 virus Is this a current diagnosis for this admission?: Yes Plan: Serology results are pending. D-dimer, ferritin and CRP are all normal. Hopefully she will be negative. (4) CKD (chronic kidney disease) stage 3, GFR 30-59 ml/min Is this a current diagnosis for this admission?: Yes Plan: GFR is down slightly. Resuming IV fluids. Monitor renal function. (5) Chronic upper abdominal pain Is this a current diagnosis for this admission?: Yes Plan: Still significant pain. Will increase the Phenergan and make the Dilaudid available every 4 hours.. (6) Cannabis use disorder, severe, dependence Is this a current diagnosis for this admission?: Yes Plan: Continue to encourage cessation. (7) COPD (chronic obstructive pulmonary disease) Qualifiers: Emphysema type: unspecified Is this a current diagnosis for this admission?: Yes Plan: Stable. No inhalers in her home medication regimen. Remains with normal oxygen saturation on room air. - Time Time Spent with patient: 15-24 minutes Medications reviewed and adjusted accordingly: Yes Anticipated Discharge Disposition: Home, Self Care Anticipated Discharge Timeframe: within 48 hours
[2019-09-29] MEDS: RINGERS SOLUTION,LACTATED 1,000 ML IV PRN ×2 (13:00→21:00)
[2019-09-29] MEDS ORDERED: DIPHENHYDRAMINE HCL 50 MG/ML VIAL ONE (16:21)
[2019-09-29] MEDS: DIPHENHYDRAMINE HCL 50 MG/ML VIAL IV PRN (16:30)
[2019-09-29] MEDS ORDERED: INSULIN LISPRO 100 UNIT/ML 3 ML VIAL ONE (16:32)
[2019-09-29] MEDS ORDERED: INSULIN LISPRO 100 UNIT/ML 3 ML VIAL SUBCUT ONE (16:50)
[2019-09-30] MEDS: PROMETHAZINE HCL INJ 25 MG/1 ML VIAL IV PRN ×2 (01:27→09:45)
[2019-09-30] MEDS: HYDROMORPHONE HCL INJ/PF 2 MG/ML AMPULE IV PRN ×5 (01:27→20:46)
[2019-09-30] MEDS: RINGERS SOLUTION,LACTATED 1,000 ML IV PRN ×2 (05:00→09:45)
[2019-09-30] MEDS: HEPARIN SOD (PORCINE) 5,000 UNIT/ML 1 ML VIAL SUBCUT SCH ×3 (05:24→21:32)
[2019-09-30 06:07] LABS: HEMATOCRIT 29.6 % (36.0-47.0); HEMOGLOBIN 9.7 g/dL (12.0-15.5); MEAN CORPUSCULAR HEMOGLOBIN 28.7 pg (27.0-33.4); MEAN CORPUSCULAR HGB CONC 32.9 g/dL (32.0-36.0); MEAN CORPUSCULAR VOLUME 87 fl (80-97); PLATELET COUNT 294 10^3/uL (150-450); RED BLOOD COUNT 3.39 10^6/uL (3.72-5.28); RED CELL DISTRIBUTION WIDTH 15.6 % (11.5-14.0)
[2019-09-30 06:23] LABS: ALBUMIN 3.5 g/dL (3.5-5.0); ANION GAP 16 (5-19); BLOOD UREA NITROGEN 34 mg/dL (7-20); CALCIUM 9.1 mg/dL (8.4-10.2); CHLORIDE 102 mmol/L (98-107); PHOSPHORUS 5.3 mg/dL (2.5-4.5)
[2019-09-30 06:46] LABS: CARBON DIOXIDE 11 mmol/L (22-30); POTASSIUM 5.7 mmol/L (3.6-5.0)
[2019-09-30 06:47] LABS: GLUCOSE 543 mg/dL (75-110)
[2019-09-30] MEDS: INSULIN LISPRO 100 UNIT/ML 3 ML VIAL SUBCUT SCH ×4 (07:23→21:00)
[2019-09-30] MEDS ORDERED: INSULIN LISPRO 100 UNIT/ML 3 ML VIAL SUBCUT ONE (07:30)
[2019-09-30] MEDS: LEVETIRACETAM 500 MG TABLET PO SCH ×2 (09:30→21:32)
[2019-09-30] MEDS: FAMOTIDINE INJ/PF 20 MG/2 ML SDV IV SCH ×2 (09:30→21:32)
[2019-09-30] MEDS: METOPROLOL TARTRATE 25 MG TABLET PO SCH ×2 (09:31→21:31)
[2019-09-30] MEDS: DIPHENHYDRAMINE HCL 50 MG/ML VIAL IV PRN ×3 (10:02→21:32)
[2019-09-30] MEDS ORDERED: NORMAL SALINE 1000 ML 1,000 ML IV ONE (10:21)
--- NOTE | 2019-09-30 11:15 | PDOC PROGRESS REPORT ---
Subjective Progress Note for:: 09/30/19 Subjective:: The patient is somnolent today. Her glucose is back up to 500. Her creatinine is up to 2.62 and her potassium is 5.7. I believe it is most likely volume depletion because her lipase is down to 329. She is also COVID positive. Reason For Visit: POSSIBLE COVID 19 INFECTION,PANCREATITIS, Acute kidney injury, hyperkalemia Physical Exam Vital Signs: Temp Pulse Resp BP Pulse Ox 97.6 F 102 H 19 105/60 98 09/30/19 08:42 09/30/19 08:00 09/30/19 08:00 09/30/19 08:00 09/30/19 08:00 Intake & Output 09/29/19 09/30/19 10/01/19 06:59 06:59 06:59 Intake Total 1999 3070 594 Balance 1999 3070 594 Weight 54.5 kg 57.8 kg General appearance: PRESENT: other - somnolent but arousable Head exam: PRESENT: atraumatic, normocephalic Eye exam: PRESENT: other - Unable to assess Ear exam: PRESENT: normal external ear exam. ABSENT: bleeding, drainage Mouth exam: PRESENT: other - Unable to assess Throat exam: PRESENT: other - Unable to assess Neck exam: ABSENT: carotid bruit, JVD, lymphadenopathy Respiratory exam: PRESENT: clear to auscultation teddy, symmetrical, unlabored. ABSENT: rales, rhonchi, tachypnea, wheezes Cardiovascular exam: PRESENT: +S1, +S2, systolic murmur - 3/6, tachycardia. ABSENT: bradycardia, diastolic murmur, irregular rhythm GI/Abdominal exam: PRESENT: hypoactive bowel sounds, soft. ABSENT: distended, guarding, tenderness - no wincing with palpation Rectal exam: PRESENT: deferred Extremities exam: ABSENT: joint swelling, pedal edema Musculoskeletal exam: PRESENT: normal inspection. ABSENT: deformity, dislocation Neurological exam: ABSENT: awake Results Laboratory Results: 09/30/19 05:10 09/30/19 05:10 09/30/19 09/30/19 09/30/19 05:10 05:10 05:10 WBC 9.0 RBC 3.39 L Hgb 9.7 L Hct 29.6 L MCV 87 MCH 28.7 MCHC 32.9 RDW 15.6 H Plt Count 294 Sodium 129.0 L Potassium 5.7 H D Chloride 102 Carbon Dioxide 11 L D Anion Gap 16 BUN 34 H Creatinine 2.62 H Est GFR ( Amer) 25 L Glucose 543 H* Calcium 9.1 Phosphorus 5.3 H Magnesium 1.8 Albumin 3.5 Lipase 389.1 H 09/28/19 11:22 Creatine Kinase 82 Impressions: Chest X-Ray 09/28/19 10:43 IMPRESSION: No focal airspace disease or other evidence of acute intrathoracic process. Assessment and Plan - Diagnosis (1) Acute on chronic pancreatitis Is this a current diagnosis for this admission?: Yes Plan: With the current treatment regimen her lipase is down to 389. Her current decompensation is not due to pancreatitis. Now that she is on oral diet will start Pancrease. (2) Hyperglycemia due to diabetes mellitus Is this a current diagnosis for this admission?: Yes Plan: Acute decompensation with diabetes. I will change her Lantus to 15 units every 12. She will get a stat dose of her Lantus subcut now. She will also receive intravenous regular insulin. I will change her diet to full liquids control carbohydrate 3. If she does well with this then advance to regular food. (3) Lab test positive for detection of COVID-19 virus Is this a current diagnosis for this admission?: Yes Plan: Patient is positive for Covid-19. This is not totally unexpected with multiple family members testing positive. Her d-dimer and C-reactive protein are normal possibly indicating that she has had this for a while. Will start azithromycin, zinc, vitamin D and vitamin C. We will hold off on melatonin currently as she is somnolent. (4) CKD (chronic kidney disease) stage 3, GFR 30-59 ml/min Is this a current diagnosis for this admission?: Yes (5) Chronic upper abdominal pain Is this a current diagnosis for this admission?: Yes Plan: Secondary to pancreatitis. Supportive care with analgesia. (6) Cannabis use disorder, severe, dependence Is this a current diagnosis for this admission?: Yes Plan: Continues to test positive on every admission. (7) COPD (chronic obstructive pulmonary disease) Qualifiers: Emphysema type: unspecified Is this a current diagnosis for this admission?: Yes Plan: We will monitor closely. She is coping positive now. Decadron instituted. Her breathing has been comfortable thus far. - Time Time Spent with patient: 25-34 minutes Medications reviewed and adjusted accordingly: Yes Anticipated Discharge Disposition: Home with Home Health Anticipated Discharge Timeframe: Unknown Disposition: Most likely back to home.
[2019-09-30] MEDS ORDERED: INSULIN GLARGINE,HUM.REC.ANLOG 1,000 UNIT/10 ML VIAL (PYX) SUBCUT ONE ×2 (11:32→12:15)
[2019-09-30] MEDS ORDERED: INSULIN LISPRO 100 UNIT/ML 3 ML VIAL ONE (11:33)
[2019-09-30] MEDS ORDERED: INSULIN REG, HUMAN 100 UNIT/ML 3 ML VIAL (PYX) ONE (11:34)
[2019-09-30] MEDS: NORMAL SALINE 1000 ML 1,000 ML IV PRN ×2 (12:03→18:16)
[2019-09-30] MEDS ORDERED: INSULIN REG, HUMAN 100 UNIT/ML 3 ML VIAL (PYX) IV ONE (12:15)
[2019-09-30] MEDS ORDERED: INSULIN GLARGINE,HUM.REC.ANLOG 1,000 UNIT/10 ML VIAL SUBCUT SCH ×2 (14:00→22:00)
[2019-09-30 14:46] LABS: ALBUMIN 3.3 g/dL (3.5-5.0); ANION GAP 9 (5-19); BLOOD UREA NITROGEN 38 mg/dL (7-20); CALCIUM 8.8 mg/dL (8.4-10.2); CARBON DIOXIDE 20 mmol/L (22-30); CHLORIDE 108 mmol/L (98-107); GLUCOSE 237 mg/dL (75-110); PHOSPHORUS 4.4 mg/dL (2.5-4.5)
[2019-09-30 14:59] LABS: POTASSIUM 4.3 mmol/L (3.6-5.0)
[2019-09-30] MEDS: SODIUM BICARBONATE 650 MG TABLET PO SCH (16:56)
[2019-09-30] MEDS: LIPASE/PROTEASE/AMYLASE 1 CAP CAPSULE.DR PO SCH (16:57)
[2019-09-30] MEDS: HYDRALAZINE HCL INJ/PF 20 MG/1 ML SDV IV PRN (20:46)
[2019-09-30 23:55] LABS: ALBUMIN 3.4 g/dL (3.5-5.0); ANION GAP 9 (5-19); BLOOD UREA NITROGEN 32 mg/dL (7-20); CALCIUM 8.6 mg/dL (8.4-10.2); CARBON DIOXIDE 20 mmol/L (22-30); CHLORIDE 109 mmol/L (98-107); GLUCOSE 154 mg/dL (75-110); PHOSPHORUS 3.6 mg/dL (2.5-4.5); POTASSIUM 3.9 mmol/L (3.6-5.0)
[2019-10-01] MEDS: HYDROMORPHONE HCL INJ/PF 2 MG/ML AMPULE IV PRN ×4 (04:12→21:57)
[2019-10-01] MEDS: HEPARIN SOD (PORCINE) 5,000 UNIT/ML 1 ML VIAL SUBCUT SCH ×3 (05:11→21:56)
[2019-10-01] MEDS: NORMAL SALINE 1000 ML 1,000 ML IV PRN ×2 (05:45)
[2019-10-01 06:03] LABS: ABSOLUTE LYMPHOCYTES (AUTO) 2.5 10^3/uL (0.5-4.7); ABSOLUTE MONOCYTES (AUTO) 0.7 10^3/uL (0.1-1.4); ABSOLUTE NEUT (AUTO) 5.8 10^3/uL (1.7-8.2); BASOPHILS % (AUTO) 0.4 % (0-2); EOSINOPHILS % (AUTO) 0.4 % (0-6); HEMATOCRIT 27.1 % (36.0-47.0); LYMPHOCYTES % (AUTO) 27.4 % (13-45); MEAN CORPUSCULAR HEMOGLOBIN 28.4 pg (27.0-33.4); MEAN CORPUSCULAR HGB CONC 33.3 g/dL (32.0-36.0); MEAN CORPUSCULAR VOLUME 85 fl (80-97); MONOCYTES % (AUTO) 7.5 % (3-13); PLATELET COUNT 289 10^3/uL (150-450); RED BLOOD COUNT 3.18 10^6/uL (3.72-5.28); SEGMENTED NEUTROPHILS % (AUTO) 64.3 % (42-78); TOTAL CELLS COUNTED % (AUTO) 100 %
[2019-10-01 06:23] LABS: ALBUMIN 3.1 g/dL (3.5-5.0); ALKALINE PHOSPHATASE 92 U/L (38-126); ANION GAP 10 (5-19); ASPARTATE AMINO TRANSFERASE 21 U/L (14-36); BILIRUBIN,DIRECT 0.1 mg/dL (0.0-0.4); BILIRUBIN,TOTAL 0.4 mg/dL (0.2-1.3); BLOOD UREA NITROGEN 31 mg/dL (7-20); CALCIUM 8.5 mg/dL (8.4-10.2); CARBON DIOXIDE 17 mmol/L (22-30); CHLORIDE 110 mmol/L (98-107); GLUCOSE 310 mg/dL (75-110); PHOSPHORUS 3.9 mg/dL (2.5-4.5); POTASSIUM 4.6 mmol/L (3.6-5.0); TOTAL PROTEIN 5.8 g/dL (6.3-8.2)
[2019-10-01] MEDS: DIPHENHYDRAMINE HCL 50 MG/ML VIAL IV PRN ×3 (07:55→21:57)
[2019-10-01] MEDS: LIPASE/PROTEASE/AMYLASE 1 CAP CAPSULE.DR PO SCH ×2 (07:56→17:39)
[2019-10-01] MEDS: SODIUM BICARBONATE 650 MG TABLET PO SCH ×2 (07:56→12:29)
[2019-10-01] MEDS ORDERED: INSULIN GLARGINE,HUM.REC.ANLOG 1,000 UNIT/10 ML VIAL (PYX) SUBCUT ONE (09:28)
[2019-10-01] MEDS ORDERED: INSULIN REG, HUMAN 100 UNIT/ML 3 ML VIAL (PYX) SUBCUT ONE (09:30)
[2019-10-01] MEDS: ASCORBIC ACID 500 MG TABLET PO SCH ×2 (09:34→17:39)
[2019-10-01] MEDS: LEVETIRACETAM 500 MG TABLET PO SCH ×2 (09:34→21:57)
[2019-10-01] MEDS: CHOLECALCIFEROL (D3) 1,000 UNIT (25 MCG) TABLET PO SCH ×2 (09:35→17:39)
[2019-10-01] MEDS: METOPROLOL TARTRATE 25 MG TABLET PO SCH ×2 (09:35→21:57)
[2019-10-01] MEDS: RINGERS SOLUTION,LACTATED 1,000 ML IV PRN ×3 (09:36→22:07)
[2019-10-01] MEDS: FAMOTIDINE INJ/PF 20 MG/2 ML SDV IV SCH ×2 (09:36→21:57)
[2019-10-01] MEDS: AZITHROMYCIN 500 MG in DEXTROSE 5%-WATER 250 ML IV SCH (09:38)
[2019-10-01] MEDS ORDERED: AMLODIPINE BESYLATE 2.5 MG TABLET PO SCH (10:00)
[2019-10-01] MEDS ORDERED: INSULIN GLARGINE,HUM.REC.ANLOG 1,000 UNIT/10 ML VIAL SUBCUT ONE (10:00)
[2019-10-01] MEDS ORDERED: INSULIN REG, HUMAN 100 UNIT/ML 3 ML VIAL (PYX) IV ONE (11:05)
[2019-10-01] MEDS: INSULIN REG, HUMAN 100 UNIT/ML 3 ML VIAL (PYX) SUBCUT SCH ×3 (12:29→21:56)
[2019-10-01] MEDS: INSULIN LISPRO 100 UNIT/ML 3 ML VIAL SUBCUT SCH (13:36)
[2019-10-01] MEDS ORDERED: DEXAMETHASONE SOD PHOS INJ 10 MG/1 ML VIAL IV SCH (14:00)
--- NOTE | 2019-10-01 15:27 | PDOC PROGRESS REPORT ---
Subjective Progress Note for:: 10/01/19 Subjective:: The patient appears to have some swelling in her left cheek. She reports having no pain. She is still very somnolent. She once again is exhibiting widely variable glucoses including levels up to 400. She is tolerating full liquids and I will advance her to regular consistency. Reason For Visit: POSSIBLE COVID 19 INFECTION,PANCREATITIS, Physical Exam Vital Signs: Temp Pulse Resp BP Pulse Ox 98.1 F 91 19 156/87 H 98 10/01/19 11:56 10/01/19 14:00 10/01/19 11:56 10/01/19 11:56 10/01/19 11:56 Intake & Output 09/30/19 10/01/19 10/02/19 06:59 06:59 06:59 Intake Total 3070 4910 924 Balance 3070 4910 924 Weight 57.8 kg 56.1 kg General appearance: PRESENT: cooperative, mild distress, thin, well-developed, other - Somnolent Head exam: PRESENT: atraumatic, normocephalic Eye exam: PRESENT: conjunctiva pale. ABSENT: scleral icterus Ear exam: PRESENT: normal external ear exam. ABSENT: bleeding, drainage Mouth exam: PRESENT: dry mucosa, tongue midline, other - Slight asymmetry with the left cheek somewhat swollen. No palpable masses. Neck exam: PRESENT: carotid bruit, JVD, lymphadenopathy Respiratory exam: PRESENT: clear to auscultation teddy, symmetrical, unlabored. ABSENT: rales, rhonchi, tachypnea, wheezes Cardiovascular exam: PRESENT: RRR, +S1, +S2. ABSENT: bradycardia, diastolic murmur, irregular rhythm, systolic murmur, tachycardia GI/Abdominal exam: PRESENT: normal bowel sounds, soft, tenderness. ABSENT: distended, guarding Rectal exam: PRESENT: deferred Gentrourinary exam: ABSENT: indwelling catheter Extremities exam: ABSENT: joint swelling, pedal edema Musculoskeletal exam: PRESENT: ambulatory, normal inspection. ABSENT: deformity, dislocation Neurological exam: PRESENT: awake, oriented to person, oriented to place, oriented to situation, CN II-XII grossly intact. ABSENT: alert Psychiatric exam: PRESENT: other - Somnolent. ABSENT: agitated, anxious Focused psych exam: ABSENT: delusional, paranoid, restlessness Skin exam: PRESENT: dry, warm. ABSENT: rash Results Laboratory Results: 10/01/19 05:30 10/01/19 05:30 09/30/19 10/01/19 10/01/19 23:15 05:30 05:30 WBC 9.0 RBC 3.18 L Hgb 9.0 L Hct 27.1 L MCV 85 MCH 28.4 MCHC 33.3 RDW 15.0 H Plt Count 289 Seg Neutrophils % 64.3 Sodium 137.7 136.9 L Potassium 3.9 4.6 Chloride 109 H 110 H Carbon Dioxide 20 L 17 L Anion Gap 9 10 BUN 32 H 31 H Creatinine 2.41 H 2.50 H Est GFR ( Amer) 27 L 26 L Glucose 154 H 310 H Calcium 8.6 8.5 Phosphorus 3.6 3.9 Magnesium 1.8 Total Bilirubin 0.4 AST 21 Alkaline Phosphatase 92 Total Protein 5.8 L Albumin 3.4 L 3.1 L 09/28/19 11:22 Creatine Kinase 82 Impressions: Chest X-Ray 09/28/19 10:43 IMPRESSION: No focal airspace disease or other evidence of acute intrathoracic process. Assessment and Plan - Diagnosis (1) Acute on chronic pancreatitis Is this a current diagnosis for this admission?: Yes Plan: Lipase was down to 389 yesterday. Will check every few days. (2) Hyperglycemia due to diabetes mellitus Is this a current diagnosis for this admission?: Yes Plan: We will advance to regular texture diet. Will modify evening Lantus as most of her high blood sugars are in the morning. As her appetite improves further adjustments may be needed. Continue Accu-Cheks and sliding scale. (3) Lab test positive for detection of COVID-19 virus Is this a current diagnosis for this admission?: Yes Plan: Because her inflammatory markers are normal her initial COVID infection was pr obably several weeks ago. We will continue isolation precautions. She remains on room air. (4) CKD (chronic kidney disease) stage 3, GFR 30-59 ml/min Is this a current diagnosis for this admission?: Yes Plan: Still in acute kidney injury. Creatinine is slightly better at 2.50. We will increase the fluid rate. She will not be at 225 mL an hour until her creatinine returns to baseline (5) Chronic upper abdominal pain Is this a current diagnosis for this admission?: Yes Plan: This is a chronic issue for her. Continue analgesia and supportive care. (6) Cannabis use disorder, severe, dependence Is this a current diagnosis for this admission?: Yes Plan: Despite multiple attempts at coaching she continues cannabis use (7) COPD (chronic obstructive pulmonary disease) Qualifiers: Emphysema type: unspecified Is this a current diagnosis for this admission?: Yes Plan: Remains on room air and is stable. - Time Time Spent with patient: 15-24 minutes Medications reviewed and adjusted accordingly: Yes Anticipated Discharge Disposition: Home, Self Care Anticipated Discharge Timeframe: within 72 hours
--- NOTE | 2019-10-01 16:10 | RADIOLOGY REPORT (SQ) ---
EXAM DESCRIPTION: CT HEAD WITHOUT IMAGES COMPLETED DATE/TIME: 10/01/2019 3:44 pm REASON FOR STUDY: AMS with hypertensive episodes COMPARISON: 06/06/2019 TECHNIQUE: Axial images acquired through the brain without intravenous contrast. Images reviewed wi th bone, brain and subdural windows. Additional sagittal and coronal reconstructions were generated. Images stored on PACS. All CT scanners at this facility use dose modulation, iterative reconstruction, and/or weight based d osing when appropriate to reduce radiation dose to as low as reasonably achievable (ALARA). [facility]: Dose Right [facility]: CareDose [facility]: Dose Right [facility]: Teradose 4D [facility]: Smart Mapbar RADIATION DOSE: CT Rad equipment meets quality standard of care and radiation dose reduction techniq ues were employed. CTDIvol: 48.7 mGy. DLP: 979 mGy-cm. mGy. LIMITATIONS: None. FINDINGS: VENTRICLES: Normal size and contour. CEREBRUM: No masses. No hemorrhage. No midline shift. No evidence for acute infarction. Normal gra y/white matter differentiation. No areas of low density in the white matter. CEREBELLUM: No masses. No hemorrhage. No alteration of density. No evidence for acute infarction. EXTRAAXIAL SPACES: No fluid collections. No masses. ORBITS AND GLOBE: No intra- or extraconal masses. Normal contour of globe without masses. CALVARIUM: No fracture. PARANASAL SINUSES: No fluid or mucosal thickening. SOFT TISSUES: No mass or hematoma. OTHER: No other significant finding. IMPRESSION: NORMAL BRAIN CT WITHOUT CONTRAST. EVIDENCE OF ACUTE STROKE: NO. COMMENT: Quality ID # [id number]: Final reports with documentation of one or more dose reduction techniques (e.g., Automated exposure control, adjustment of the mA and/or kV according to patient size, use of iterative reconstruction technique) TECHNICAL DOCUMENTATION: JOB ID: [id number] 2010 [employer]- All Rights Reserved Reading location - IP/workstation name: [email or web address]
[2019-10-01 18:05] LABS: ALBUMIN 2.9 g/dL (3.5-5.0); ANION GAP 6 (5-19); BLOOD UREA NITROGEN 29 mg/dL (7-20); CALCIUM 7.9 mg/dL (8.4-10.2); CARBON DIOXIDE 21 mmol/L (22-30); CHLORIDE 109 mmol/L (98-107); GLUCOSE 131 mg/dL (75-110); PHOSPHORUS 3.2 mg/dL (2.5-4.5); POTASSIUM 3.9 mmol/L (3.6-5.0)
[2019-10-01] MEDS: INSULIN GLARGINE,HUM.REC.ANLOG 1,000 UNIT/10 ML VIAL SUBCUT SCH (21:56)
[2019-10-01] MEDS: AMLODIPINE BESYLATE 5 MG TABLET PO SCH (21:57)
[2019-10-01] MEDS ORDERED: INSULIN GLARGINE,HUM.REC.ANLOG 1,000 UNIT/10 ML VIAL SUBCUT SCH (22:00)
[2019-10-02] MEDS: HYDROMORPHONE HCL INJ/PF 2 MG/ML AMPULE IV PRN ×2 (05:55→10:53)
[2019-10-02] MEDS: DIPHENHYDRAMINE HCL 50 MG/ML VIAL IV PRN ×2 (05:55→10:46)
[2019-10-02] MEDS: HEPARIN SOD (PORCINE) 5,000 UNIT/ML 1 ML VIAL SUBCUT SCH ×3 (05:55→22:37)
[2019-10-02 06:36] LABS: ABSOLUTE EOSINOPHILS # (AUTO) 0.1 10^3/uL (0.0-0.6); ABSOLUTE LYMPHOCYTES (AUTO) 2.2 10^3/uL (0.5-4.7); ABSOLUTE MONOCYTES (AUTO) 0.5 10^3/uL (0.1-1.4); ABSOLUTE NEUT (AUTO) 2.5 10^3/uL (1.7-8.2); BASOPHILS % (AUTO) 0.5 % (0-2); EOSINOPHILS % (AUTO) 1.6 % (0-6); HEMATOCRIT 26.7 % (36.0-47.0); HEMOGLOBIN 8.8 g/dL (12.0-15.5); LYMPHOCYTES % (AUTO) 40.6 % (13-45); MEAN CORPUSCULAR HEMOGLOBIN 28.4 pg (27.0-33.4); MEAN CORPUSCULAR HGB CONC 33.2 g/dL (32.0-36.0); MEAN CORPUSCULAR VOLUME 86 fl (80-97); MONOCYTES % (AUTO) 9.8 % (3-13); PLATELET COUNT 275 10^3/uL (150-450); RED BLOOD COUNT 3.12 10^6/uL (3.72-5.28); RED CELL DISTRIBUTION WIDTH 15.5 % (11.5-14.0); SEGMENTED NEUTROPHILS % (AUTO) 47.5 % (42-78); TOTAL CELLS COUNTED % (AUTO) 100 %; WHITE BLOOD COUNT 5.3 10^3/uL (4.0-10.5)
[2019-10-02 06:58] LABS: ALBUMIN 3.1 g/dL (3.5-5.0); ANION GAP 6 (5-19); BLOOD UREA NITROGEN 24 mg/dL (7-20); CALCIUM 8.4 mg/dL (8.4-10.2); CARBON DIOXIDE 23 mmol/L (22-30); CHLORIDE 111 mmol/L (98-107); GLUCOSE 115 mg/dL (75-110); PHOSPHORUS 3.7 mg/dL (2.5-4.5)
[2019-10-02] MEDS: INSULIN REG, HUMAN 100 UNIT/ML 3 ML VIAL (PYX) SUBCUT SCH ×4 (08:38→22:38)
[2019-10-02] MEDS: LIPASE/PROTEASE/AMYLASE 1 CAP CAPSULE.DR PO SCH ×2 (08:41→17:21)
[2019-10-02] MEDS ORDERED: INSULIN GLARGINE,HUM.REC.ANLOG 1,000 UNIT/10 ML VIAL SUBCUT SCH (10:00)
[2019-10-02] MEDS: FAMOTIDINE INJ/PF 20 MG/2 ML SDV IV SCH ×2 (10:45→22:40)
[2019-10-02] MEDS: ASCORBIC ACID 500 MG TABLET PO SCH ×2 (10:46→17:21)
[2019-10-02] MEDS: METOPROLOL TARTRATE 25 MG TABLET PO SCH ×2 (10:46→22:37)
[2019-10-02] MEDS: LEVETIRACETAM 500 MG TABLET PO SCH ×2 (10:46→22:37)
[2019-10-02] MEDS: CHOLECALCIFEROL (D3) 1,000 UNIT (25 MCG) TABLET PO SCH ×2 (10:46→17:21)
[2019-10-02] MEDS: AMLODIPINE BESYLATE 5 MG TABLET PO SCH ×2 (10:46→22:40)
[2019-10-02] MEDS: INSULIN GLARGINE,HUM.REC.ANLOG 1,000 UNIT/10 ML VIAL SUBCUT SCH ×2 (10:47→22:39)
[2019-10-02] MEDS: AZITHROMYCIN 500 MG in DEXTROSE 5%-WATER 250 ML IV SCH (10:48)
[2019-10-02] MEDS ORDERED: HYDROMORPHONE HCL INJ/PF 2 MG/ML AMPULE IV PRN ×2 (11:50→19:30)
--- NOTE | 2019-10-02 11:57 | PDOC PROGRESS REPORT ---
Subjective Progress Note for:: 10/02/19 Subjective:: Patient was able to tolerate her food this morning. She was not having any nausea or vomiting at the time. She states she is having some shortness of breath but not too bad. Also endorses mild cough. Still having abdominal pain. Reason For Visit: POSSIBLE COVID 19 INFECTION,PANCREATITIS, Physical Exam Vital Signs: Temp Pulse Resp BP Pulse Ox 98.1 F 82 18 151/91 H 96 10/02/19 07:20 10/02/19 07:20 10/02/19 07:20 10/02/19 07:20 10/02/19 07:20 Intake & Output 10/01/19 10/02/19 10/03/19 06:59 06:59 06:59 Intake Total 4910 3304 Balance 4910 3304 Weight 56.1 kg 56.1 kg General appearance: PRESENT: no acute distress, cooperative Neck exam: ABSENT: JVD Respiratory exam: PRESENT: clear to auscultation teddy, symmetrical, unlabored. ABSENT: crackles, tachypnea, wheezes Cardiovascular exam: PRESENT: RRR, +S1, +S2. ABSENT: tachycardia GI/Abdominal exam: PRESENT: soft. ABSENT: rebound, rigid, tenderness Extremities exam: ABSENT: pedal edema Neurological exam: PRESENT: alert, awake, oriented to person, oriented to place, oriented to time, oriented to situation Psychiatric exam: ABSENT: agitated, anxious Results Laboratory Results: 10/02/19 06:10 10/02/19 06:10 10/01/19 10/02/19 10/02/19 17:30 06:10 06:10 WBC 5.3 RBC 3.12 L Hgb 8.8 L Hct 26.7 L MCV 86 MCH 28.4 MCHC 33.2 RDW 15.5 H Plt Count 275 Seg Neutrophils % 47.5 Sodium 136.0 L 139.9 Potassium 3.9 4.0 Chloride 109 H 111 H Carbon Dioxide 21 L 23 Anion Gap 6 6 BUN 29 H 24 H Creatinine 2.04 H 2.18 H Est GFR ( Amer) 33 L 30 L Glucose 131 H 115 H Calcium 7.9 L 8.4 Phosphorus 3.2 3.7 Magnesium 1.6 1.8 Albumin 2.9 L 3.1 L 09/28/19 11:22 Creatine Kinase 82 Impressions: Chest X-Ray 09/28/19 10:43 IMPRESSION: No focal airspace disease or other evidence of acute intrathoracic process. Head CT 10/01/19 00:00 IMPRESSION: NORMAL BRAIN CT WITHOUT CONTRAST. EVIDENCE OF ACUTE STROKE: NO. Assessment and Plan - Diagnosis (1) Acute on chronic pancreatitis Is this a current diagnosis for this admission?: Yes Plan: Her chronic pancreatitis has been a significant problem for her which is led to recurrent admissions quite frequently. She has been set up to see pain management clinic next month. She will need proper pain management for her chronic pancreatitis as well as a GI follow-up. continue IV fluids. Decrease rate today. Try p.o. oxycodone as needed. Will leave Dilaudid for breakthrough. (2) Chronic upper abdominal pain Is this a current diagnosis for this admission?: Yes Plan: This is a chronic issue for her. Likely secondary to chronic pancreatitis. Had EGD in 07/2019 which showed only mild gastritis with negative biopsy. Continue analgesia, supportive care and Pepcid. (3) COVID-19 virus infection Is this a current diagnosis for this admission?: Yes Plan: Currently no evidence of pneumonia. She will continue to get multivitamins, zinc supplements and azithromycin. (4) CKD (chronic kidney disease) stage 3, GFR 30-59 ml/min Is this a current diagnosis for this admission?: Yes Plan: Still in acute kidney injury. Still slightly above her baseline renal function. Continue IV fluids. (5) Hyperglycemia due to diabetes mellitus Is this a current diagnosis for this admission?: Yes Plan: Has history of very labile blood sugars and gets hypoglycemic often. We will try Lantus 10 units in the morning and continue 14 units in the night. Monitor blood sugars closely. (6) Hypertension Qualifiers: Hypertension type: unspecified Qualified Code(s): I10 - Essential (primary) hypertension Is this a current diagnosis for this admission?: Yes Plan: BP uncontrolled this morning. Likely some contribution is from pain as well. Continue amlodipine and Lopressor. Will monitor closely. - Time Time Spent with patient: Less than 15 minutes Anticipated Discharge Disposition: Home, Self Care Anticipated Discharge Timeframe: within 36 hours
[2019-10-02] MEDS: RINGERS SOLUTION,LACTATED 1,000 ML IV PRN (18:20)
[2019-10-02] MEDS: OXYCODONE HCL IR 5 MG TABLET PO PRN (18:55)
[2019-10-03] MEDS: RINGERS SOLUTION,LACTATED 1,000 ML IV PRN (03:56)
[2019-10-03] MEDS: OXYCODONE HCL IR 5 MG TABLET PO PRN (04:50)
[2019-10-03] MEDS: HEPARIN SOD (PORCINE) 5,000 UNIT/ML 1 ML VIAL SUBCUT SCH ×2 (05:38→13:37)
[2019-10-03] MEDS: LIPASE/PROTEASE/AMYLASE 1 CAP CAPSULE.DR PO SCH (07:50)
[2019-10-03] MEDS: INSULIN REG, HUMAN 100 UNIT/ML 3 ML VIAL (PYX) SUBCUT SCH ×2 (07:50→11:59)
[2019-10-03] MEDS: AZITHROMYCIN 500 MG in DEXTROSE 5%-WATER 250 ML IV SCH (09:53)
[2019-10-03] MEDS: ASCORBIC ACID 500 MG TABLET PO SCH (09:54)
[2019-10-03] MEDS: INSULIN GLARGINE,HUM.REC.ANLOG 1,000 UNIT/10 ML VIAL SUBCUT SCH (09:54)
[2019-10-03] MEDS: METOPROLOL TARTRATE 25 MG TABLET PO SCH (09:54)
[2019-10-03] MEDS: AMLODIPINE BESYLATE 5 MG TABLET PO SCH (09:54)
[2019-10-03] MEDS: FAMOTIDINE INJ/PF 20 MG/2 ML SDV IV SCH (09:54)
[2019-10-03] MEDS: LEVETIRACETAM 500 MG TABLET PO SCH (09:54)
[2019-10-03] MEDS: CHOLECALCIFEROL (D3) 1,000 UNIT (25 MCG) TABLET PO SCH (09:54)
[2019-10-03 11:38] LABS: ANION GAP 5 (5-19); BLOOD UREA NITROGEN 17 mg/dL (7-20); CALCIUM 8.6 mg/dL (8.4-10.2); CARBON DIOXIDE 28 mmol/L (22-30); CHLORIDE 106 mmol/L (98-107); GLUCOSE 129 mg/dL (75-110)
[2019-10-03 12:10] VITALS: BP 159/99
--- NOTE | 2019-10-03 13:38 | PDOC DISCHARGE SUMMARY ---
Impression - Admit/DC Date/PCP Admission Date/Primary Care Provider: 09/28/19 17:10 LYNNE OLMEDO Discharge Date: 10/03/19 - Discharge Diagnosis (1) Acute on chronic pancreatitis Is this a current diagnosis for this admission?: Yes (2) Chronic upper abdominal pain Is this a current diagnosis for this admission?: Yes (3) COVID-19 virus infection Is this a current diagnosis for this admission?: Yes (4) CKD (chronic kidney disease) stage 3, GFR 30-59 ml/min Is this a current diagnosis for this admission?: Yes (5) Hyperglycemia due to diabetes mellitus Is this a current diagnosis for this admission?: Yes (6) Hypertension Is this a current diagnosis for this admission?: Yes - Additional Information Resuscitation Status: Full Code Referrals: RONALD BARKER FNP-C [Primary Care Provider] - 10/11/19 4:00 pm Prescriptions: Azithromycin 250 mg PO DAILY #3 tablet Insulin Glargine,Hum.rec.anlog [Lantus Insulin 100 Unit/1 ml 10 ml] See Protocol SUBCUT QHS #10 ml Amlodipine Besylate [Norvasc 5 mg Tablet] 5 mg PO Q12 #60 tablet Oxycodone HCl [Oxy-Ir 5 mg Tablet] 5 mg PO Q6HP PRN #10 tablet PRN Reason: Ascorbic Acid [Vitamin C 500 mg Tablet] 1,000 mg PO BID 10 Days Cholecalciferol (Vitamin D3) [Vitamin D3 1000 Unit Tablet] 2,000 unit PO DAILY 10 Days Zinc Sulfate [Zinc-220 Capsule] 220 mg PO DAILY #10 capsule Home Medications: Insulin Aspart [Novolog Flexpen] 0 units SQ .SLIDINGSCALE 08/09/19 Levetiracetam [Keppra 500 mg Tablet] 500 mg PO Q12 09/15/19 Promethazine HCl [Phenergan 25 mg Tablet] 25 mg PO Q6HP PRN 09/15/19 Lipase/Protease/Amylase [Pancreaze-10 Capsule.] 1 cap PO BIDACBS #60 capsule.dr 09/19/19 Metoprolol Tartrate [Lopressor 25 mg Tablet] 25 mg PO Q12 #60 tablet 09/19/19 Tramadol HCl [Ultram 50 mg Tablet] 50 mg PO Q6HP PRN #20 tablet 09/19/19 Amlodipine Besylate [Norvasc 5 mg Tablet] 5 mg PO Q12 #60 tablet 10/03/19 Ascorbic Acid [Vitamin C 500 mg Tablet] 1,000 mg PO BID 10 Days 10/03/19 Azithromycin 250 mg PO DAILY #3 tablet 10/03/19 Cholecalciferol (Vitamin D3) [Vitamin D3 1000 Unit Tablet] 2,000 unit PO DAILY 10 Days 10/03/19 Insulin Glargine,Hum.rec.anlog [Lantus Insulin 100 Unit/1 ml 10 ml] See Protocol SUBCUT QHS #10 ml 10/03/19 Oxycodone HCl [Oxy-Ir 5 mg Tablet] 5 mg PO Q6HP PRN #10 tablet 10/03/19 Zinc Sulfate [Zinc-220 Capsule] 220 mg PO DAILY #10 capsule 10/03/19 History of Present Illiness History of Present Illness: According to admitting provider: JJ HOFFMAN is a 39 year old female who was discharged from the hospital 5 days ago. She is chronically hospitalized with recurrent pancreatitis and abdominal pain. She has uncontrolled diabetes. She chronically test positive for marijuana. She states that several days ago she started to have her abdominal pain back. In addition she had pain around the left flank. She denies any hematuria or dysuria. Her glucose was 334. Her lipase was 2191.5 with an elevated amylase of 246. She does have a normal white blood cell count. BUN and creatinine are 21 and 1.69 respectively. This is in fact close to her baseline. She will be made n.p.o. We will institute insulin therapy. Analgesia will be available as well as antiemetic medications. Additionally her daughter, sister and mother all recently tested positive for Covid-19. This certainly puts her at risk and will be tested and classified person under investigation. Hospital Course Hospital Course: (1) Acute on chronic pancreatitis Is this a current diagnosis for this admission?: Yes Plan: She was treated with IV fluids and pain medications. Her chronic pancreatitis has been a significant problem for her which is led to recurrent admissions quite frequently. She has been set up to see pain management clinic first week of next month. She will need proper pain management for her chronic pancreatitis as well as a GI follow-up. Try p.o. oxycodone as needed. (2) Chronic upper abdominal pain Is this a current diagnosis for this admission?: Yes Plan: This is a chronic issue for her. Likely secondary to chronic pancreatitis. Had EGD in 07/2019 which showed only mild gastritis with negative biopsy. Continue analgesia, supportive care and Pepcid. (3) COVID-19 virus infection Is this a current diagnosis for this admission?: Yes Plan: Currently no evidence of pneumonia. She will continue to get multivitamins, zinc supplements and azithromycin. Instructed on self-isolation. (4) CKD (chronic kidney disease) stage 3, GFR 30-59 ml/min Is this a current diagnosis for this admission?: Yes Plan: Had RONIT imposed on CKD. Likely secondary to dehydration. Resolved with IV fluid administration. Creatinine this morning is back at her baseline. (5) Hyperglycemia due to diabetes mellitus Is this a current diagnosis for this admission?: Yes Plan: Has history of very labile blood sugars and gets hypoglycemic often. We will try Lantus 10 units in the morning and continue 14 units in the night. Monitor blood sugars closely. (6) Hypertension Qualifiers: Hypertension type: unspecified Qualified Code(s): I10 - Essential (primary) hypertension Is this a current diagnosis for this admission?: Yes Plan: Started on amlodipine. Continue Lopressor. Will monitor closely. Physical Exam Vital Signs: Temp Pulse Resp BP Pulse Ox 98.6 F 79 18 149/87 H 99 10/03/19 12:05 10/03/19 12:05 10/03/19 12:05 10/03/19 12:05 10/03/19 12:05 Intake & Output 10/02/19 10/03/19 10/04/19 06:59 06:59 06:59 Intake Total 3304 1250 Balance 3304 1250 Weight 56.1 kg 61.8 kg General appearance: PRESENT: no acute distress, cooperative Neck exam: ABSENT: JVD Respiratory exam: PRESENT: clear to auscultation teddy, unlabored GI/Abdominal exam: PRESENT: soft, tenderness. ABSENT: distended, firm, guarding, rebound, rigid Neurological exam: PRESENT: alert, awake, oriented to person, oriented to place, oriented to time Results Laboratory Results: WBC 5.3 10^3/uL (4.0-10.5) 10/02/19 06:10 RBC 3.12 10^6/uL (3.72-5.28) L 10/02/19 06:10 Hgb 8.8 g/dL (12.0-15.5) L 10/02/19 06:10 Hct 26.7 % (36.0-47.0) L 10/02/19 06:10 MCV 86 fl (80-97) 10/02/19 06:10 MCH 28.4 pg (27.0-33.4) 10/02/19 06:10 MCHC 33.2 g/dL (32.0-36.0) 10/02/19 06:10 RDW 15.5 % (11.5-14.0) H 10/02/19 06:10 Plt Count 275 10^3/uL (150-450) 10/02/19 06:10 Lymph % (Auto) 40.6 % (13-45) 10/02/19 06:10 [place] % (Auto) 9.8 % (3-13) 10/02/19 06:10 Eos % (Auto) 1.6 % (0-6) 10/02/19 06:10 Baso % (Auto) 0.5 % (0-2) 10/02/19 06:10 Absolute Neuts (auto) 2.5 10^3/uL (1.7-8.2) 10/02/19 06:10 Absolute Lymphs (auto) 2.2 10^3/uL (0.5-4.7) 10/02/19 06:10 Absolute Monos (auto) 0.5 10^3/uL (0.1-1.4) 10/02/19 06:10 Absolute Eos (auto) 0.1 10^3/uL (0.0-0.6) 10/02/19 06:10 Absolute Basos (auto) 0.0 10^3/uL (0.0-0.2) 10/02/19 06:10 Seg Neutrophils % 47.5 % (42-78) 10/02/19 06:10 PT 13.5 SEC (11.4-15.4) 09/28/19 11:35 INR 1.01 09/28/19 11:35 D-Dimer 0.53 ug/mL (0.00-0.50) H 09/28/19 11:35 VBG pH 7.31 (7.30-7.42) 09/28/19 11:22 VBG pCO2 43.5 mmHg (35-63) 09/28/19 11:22 VBG HCO3 21.2 mmol/L (20-32) 09/28/19 11:22 VBG Base Excess -5.1 mmol/L 09/28/19 11:22 Sodium 139.0 mmol/L (137-145) 10/03/19 10:45 Potassium 4.0 mmol/L (3.6-5.0) 10/03/19 10:45 Chloride 106 mmol/L (98-107) 10/03/19 10:45 Carbon Dioxide 28 mmol/L (22-30) 10/03/19 10:45 Anion Gap 5 (5-19) 10/03/19 10:45 BUN 17 mg/dL (7-20) 10/03/19 10:45 Creatinine 1.73 mg/dL (0.52-1.25) H 10/03/19 10:45 Est GFR ( Amer) 40 (>60) L 10/03/19 10:45 Est GFR (MDRD) Non-Af 33 (>60) L 10/03/19 10:45 Glucose 129 mg/dL (75-110) H 10/03/19 10:45 POC Glucose 156 mg/dL (70-110) H 10/03/19 10:49 Lactic Acid 1.0 mmol/L (0.7-2.1) 09/30/19 14:00 Calcium 8.6 mg/dL (8.4-10.2) 10/03/19 10:45 Phosphorus 3.7 mg/dL (2.5-4.5) 10/02/19 06:10 Magnesium 1.8 mg/dL (1.6-2.3) 10/02/19 06:10 Ferritin 26.20 ng/mL (6.2-137.0) 09/28/19 11:35 Total Bilirubin 0.4 mg/dL (0.2-1.3) 10/01/19 05:30 Direct Bilirubin 0.1 mg/dL (0.0-0.4) 10/01/19 05:30 Neonat Total Bilirubin Not Reportable 10/01/19 05:30 Neonat Direct Bilirubin Not Reportable 10/01/19 05:30 Neonat Indirect Bili Not Reportable 10/01/19 05:30 AST 21 U/L (14-36) 10/01/19 05:30 ALT 13 U/L (<35) 10/01/19 05:30 Alkaline Phosphatase 92 U/L (38-126) 10/01/19 05:30 Creatine Kinase 82 U/L (30-135) 09/28/19 11:22 C-Reactive Protein < 5.0 mg/L (<10.0) 09/28/19 11:35 Total Protein 5.8 g/dL (6.3-8.2) L 10/01/19 05:30 Albumin 3.1 g/dL (3.5-5.0) L 10/02/19 06:10 Amylase 246 U/L (30-110) H 09/28/19 11:22 Lipase 389.1 U/L (23-300) H 09/30/19 05:10 Urine Color YELLOW 09/28/19 11:22 Urine Appearance CLOUDY 09/28/19 11:22 Urine pH 5.0 (5.0-9.0) 09/28/19 11:22 Ur Specific [place] 1.016 09/28/19 11:22 Urine Protein 100 mg/dL (NEGATIVE) H 09/28/19 11:22 Urine Glucose (UA) >=500 mg/dL (NEGATIVE) H 09/28/19 11:22 Urine Ketones TRACE mg/dL (NEGATIVE) H 09/28/19 11:22 Urine Blood SMALL (NEGATIVE) H 09/28/19 11:22 Urine Nitrite NEGATIVE (NEGATIVE) 09/28/19 11:22 Urine Bilirubin NEGATIVE (NEGATIVE) 09/28/19 11:22 Urine Urobilinogen NEGATIVE mg/dL (<2.0) 09/28/19 11:22 Ur Leukocyte Esterase NEGATIVE (NEGATIVE) 09/28/19 11:22 Urine WBC (Auto) 12 /HPF 09/28/19 11:22 Urine RBC (Auto) 0 /HPF 09/28/19 11:22 Urine Bacteria (Auto) 1+ /HPF 09/28/19 11:22 Squamous Epi Cells Auto 17 /HPF 09/28/19 11:22 Amorphous Sediment Auto TRACE /HPF 09/28/19 11:22 Urine Ascorbic Acid NEGATIVE (NEGATIVE) 09/28/19 11:22 Urine Opiates Screen NEGATIVE 09/28/19 11:22 Urine Methadone Screen NEGATIVE 09/28/19 11:22 Ur Barbiturates Screen NEGATIVE 09/28/19 11:22 Ur Phencyclidine Scrn NEGATIVE 09/28/19 11:22 Ur Amphetamines Screen NEGATIVE 09/28/19 11:22 U Benzodiazepines Scrn NEGATIVE 09/28/19 11:22 Urine Cocaine Screen NEGATIVE 09/28/19 11:22 U Marijuana (THC) Screen UNCONFIRMED POSITIVE 09/28/19 11:22 COVID-19 Source NASOPHARYNGEAL 09/28/19 11:30 COVID-19 (LUCI) DETECTED H 09/28/19 11:30 Impressions: Chest X-Ray 09/28/19 10:43 IMPRESSION: No focal airspace disease or other evidence of acute intrathoracic process. Head CT 10/01/19 00:00 IMPRESSION: NORMAL BRAIN CT WITHOUT CONTRAST. EVIDENCE OF ACUTE STROKE: NO. Plan Time Spent: Less than 30 Minutes Stroke Is this a Stroke Patient?: No Acute Heart Failure - Is this a Heart Failure Patient?: No
== END 2019-10-03 14:03 | disposition home or self-care (01) | DRG 438 ==
LOC: ER 08:16 → EH 17:10 → 3N 09-29 01:13
PROVIDERS: ADMIT Hospitalist; ATTEND Internal Medicine
DX: K85.90 Acute pancreatitis without necrosis or infection, unspecified (principal); U07.1 COVID-19; E11.65 Type 2 diabetes mellitus with hyperglycemia; F12.20 Cannabis dependence, uncomplicated; K86.1 Other chronic pancreatitis; N18.3 Chronic kidney disease, stage 3 (moderate); I12.9 Hypertensive chronic kidney disease with stage 1 through stage 4 chronic kidney disease, or unspecified chronic kidney disease; E11.22 Type 2 diabetes mellitus with diabetic chronic kidney disease; J44.9 Chronic obstructive pulmonary disease, unspecified; K21.9 Gastro-esophageal reflux disease without esophagitis; G89.29 Other chronic pain; F17.200 Nicotine dependence, unspecified, uncomplicated; Z79.4 Long term (current) use of insulin; Z79.899 Other long term (current) drug therapy; Z83.3 Family history of diabetes mellitus; Z82.49 Family history of ischemic heart disease and other diseases of the circulatory system; Z71.51 Drug abuse counseling and surveillance of drug abuser; Z88.6 Allergy status to analgesic agent; Z88.8 Allergy status to other drugs, medicaments and biological substances
CPT/HCPCS: 36415; 70450; 71045; 80048; 80053; 80069; 80307; 81001; 82150; 82550; 82728; 82803; 82962; 83605; 83690; 83735; 84100; 85025; 85027; 85379; 85610; 86140; 87635; 96361; 96374; 96375; 96376; 99285; C9803; J0360; J0456; J1170; J1200; J1642; J1644; J1815; J2405; J2550; J2765; J3490; J7030; J7060; J7120; S0028

== ENCOUNTER 2019-10-19 07:47 | Emergency (ER) | payer MEDICAID ==
[2019-10-19 10:29] LABS: ABSOLUTE BASOPHILS # (AUTO) 0.1 10^3/uL (0.0-0.2); ABSOLUTE EOSINOPHILS # (AUTO) 0.1 10^3/uL (0.0-0.6); ABSOLUTE LYMPHOCYTES (AUTO) 1.6 10^3/uL (0.5-4.7); ABSOLUTE MONOCYTES (AUTO) 0.5 10^3/uL (0.1-1.4); ABSOLUTE NEUT (AUTO) 6.2 10^3/uL (1.7-8.2); BASOPHILS % (AUTO) 0.8 % (0-2); EOSINOPHILS % (AUTO) 0.7 % (0-6); HEMATOCRIT 30.7 % (36.0-47.0); HEMOGLOBIN 10.3 g/dL (12.0-15.5); LYMPHOCYTES % (AUTO) 19.5 % (13-45); MEAN CORPUSCULAR HEMOGLOBIN 28.5 pg (27.0-33.4); MEAN CORPUSCULAR HGB CONC 33.6 g/dL (32.0-36.0); MEAN CORPUSCULAR VOLUME 85 fl (80-97); MONOCYTES % (AUTO) 5.4 % (3-13); PLATELET COUNT 294 10^3/uL (150-450); RED BLOOD COUNT 3.62 10^6/uL (3.72-5.28); RED CELL DISTRIBUTION WIDTH 15.3 % (11.5-14.0); SEGMENTED NEUTROPHILS % (AUTO) 73.6 % (42-78); TOTAL CELLS COUNTED % (AUTO) 100 %; WHITE BLOOD COUNT 8.4 10^3/uL (4.0-10.5)
[2019-10-19 10:47] LABS: ALBUMIN 3.8 g/dL (3.5-5.0); ALKALINE PHOSPHATASE 147 U/L (38-126); ANION GAP 6 (5-19); ASPARTATE AMINO TRANSFERASE 18 U/L (14-36); BILIRUBIN,DIRECT 0.3 mg/dL (0.0-0.4); BILIRUBIN,TOTAL 0.5 mg/dL (0.2-1.3); BLOOD UREA NITROGEN 26 mg/dL (7-20); CALCIUM 9.1 mg/dL (8.4-10.2); CARBON DIOXIDE 23 mmol/L (22-30); CHLORIDE 106 mmol/L (98-107); GLUCOSE 344 mg/dL (75-110); POTASSIUM 4.5 mmol/L (3.6-5.0); TOTAL PROTEIN 6.4 g/dL (6.3-8.2)
[2019-10-19] MEDS ORDERED: HYDROMORPHONE HCL INJ/PF 2 MG/ML AMPULE IV ONE ×2 (11:04→13:59)
[2019-10-19] MEDS ORDERED: ONDANSETRON HCL INJ/PF 4 MG/2 ML SDV IV ONE (11:05)
--- NOTE | 2019-10-19 11:07 | ER Document Report ---
ED GI/ - General Chief Complaint: Abdominal Pain Stated Complaint: ABDOMINAL PAIN Time Seen by Provider: 10/19/19 10:34 Primary Care Provider: [facility] [Provider Group] RONALD BARKER FNP-C [Primary Care Provider] - 10/22/19 Information source: Patient Notes: Patient presents complaining of abdominal pain that started yesterday. Patient reports nausea vomiting x4 episodes today with out any diarrhea. Patient denies any fever or urinary symptoms. Patient denies any cough. Patient was diagnosed with COVID on 09/28/2019. Patient has a history of pancreatitis and suspects the same today. TRAVEL OUTSIDE OF THE [place] IN LAST 30 DAYS: No - HPI Patient complains to provider of: Abdominal pain, Vomiting Onset: Yesterday Timing/Duration: Worse Quality of pain: Sharp Pain Level: 5 Location: Epigastric Associated symptoms: Nausea, Vomiting. denies: Dysuria, Fever, Urinary hesitancy, Urinary frequency, Urinary retention, Urinary urgency Exacerbated by: Denies Relieved by: Denies Similar symptoms previously: Yes Recently seen / treated by doctor: Yes - Related Data Allergies/Adverse Reactions: hydrocodone [From [place]] Allergy (Severe, Verified 10/19/19 10:04) ? morphine Allergy (Severe, Verified 10/19/19 10:04) ? Penicillins Allergy (Severe, Verified 10/19/19 10:04) ? prednisone Allergy (Severe, Verified 10/19/19 10:04) Edema Home Medications: lantus, novolog, lisinopril, amlodipine Past Medical History - General Information source: Patient - Social History Smoking Status: Current Every Day Smoker Frequency of alcohol use: None Drug Abuse: Marijuana Lives with: Family Family History: DM, Hypertension - Past Medical History Cardiac Medical History: Reports: Hx Hypercholesterolemia, Hx Hypertension Pulmonary Medical History: Reports: Hx COPD Neurological Medical History: Reports: Hx Seizures - last 07/27. Denies: Hx Cerebrovascular Accident Endocrine Medical History: Reports: Hx Diabetes Mellitus Type 1, Hx Diabetes Mellitus Type 2. Denies: Hx Hyperthyroidism, Hx Hypothyroidism Renal/ Medical History: Reports: Hx Renal Insufficiency GI Medical History: Reports: Hx Gastroesophageal Reflux Disease, Hx Pancreatitis - Chronic Musculoskeletal Medical History: Denies Hx Arthritis, Reports Hx Musculoskeletal Trauma Skin Medical History: Psychiatric Medical History: Reports: Hx Anxiety Denies: Hx Depression Infectious Medical History: Past Surgical History: Reports: Hx Section - x3, Hx Hysterectomy - par tial, Other - Recent Port-A-Cath placement - Immunizations Immunizations up to date: Yes Hx Diphtheria, Pertussis, Tetanus Vaccination: Yes Review of Systems - Review of Systems Constitutional: Recent illness - COVID diagnosed 09/28/2019. denies: Fever EENT: No symptoms reported Cardiovascular: No symptoms reported. denies: Chest pain Respiratory: No symptoms reported. denies: Cough Gastrointestinal: Abdominal pain, Nausea, Vomiting. denies: Diarrhea Genitourinary: No symptoms reported. denies: Dysuria Female Genitourinary: No symptoms reported Musculoskeletal: No symptoms reported. denies: Back pain Skin: No symptoms reported Hematologic/Lymphatic: No symptoms reported Neurological/Psychological: No symptoms reported Physical Exam - Vital signs Vitals: Temp Pulse Resp BP Pulse Ox 98.0 F 103 H 16 149/100 H 100 10/19/19 09:43 10/19/19 09:43 10/19/19 09:43 10/19/19 09:43 10/19/19 09:43 - Notes Notes: PHYSICAL EXAMINATION: GENERAL: Tearful HEAD: Atraumatic, normocephalic. EYES: sclera anicteric, conjunctiva are normal. ENT: nares patent. Moist mucous membranes. NECK: Normal range of motion, supple without lymphadenopathy LUNGS: CTAB and equal. No wheezes rales or rhonchi. HEART: Mild tachycardia with normal rhythm without murmurs ABDOMEN: Soft, epigastric tenderness with guarding, normal bowel sounds. EXTREMITIES: Normal range of motion, no pitting edema. BACK: No midline tenderness, no step-off or deformity. No CVA tenderness NEUROLOGICAL: Cranial nerves grossly intact. Normal speech. PSYCH: Tearful SKIN: Warm, Dry, normal turgor, no rashes or lesions noted Course - Re-evaluation Re-evalutation: 10/19/19 14:47 Patient continues with epigastric tenderness, no additional vomiting noted after patient received her antiemetic medication. Call placed to hospitalist for consultation for admission. Dr. Pate agrees to come and evaluate patient. 10/19/19 16:30 Dr. Pate evaluated patient and feels that she is just having chronic pain due to her chronic pancreatitis. He recommends outpatient follow-up as planned with pain management and states that he will give patient prescription for pain medication until she can get into see pain management next month. He recommends giving her a prescription for nausea such as Phenergan and Reglan. He does not feel that patient needs admission at this time. He recommends discharge at this time. Patient advised of plan and is agreeable at this time. 10/19/19 17:01 Prescription written for Zofran and Reglan to minimize potential adverse interaction between Phenergan and Reglan. 10/19/19 17:[address] boles regarding patient presentation diagnostic evaluation and discharge plan of care. Discussed Dr. Pate plan for discharge at this time. Dr. boles agrees with plan of care. - Vital Signs Vital signs: Temp Pulse Resp BP Pulse Ox 98.3 F 92 16 185/92 H 100 10/19/19 17:43 10/19/19 17:43 10/19/19 17:43 10/19/19 17:43 10/19/19 17:43 - Laboratory Result Diagrams: 10/19/19 09:50 10/19/19 09:50 Laboratory results interpreted by me: 10/19/19 10/19/19 10/19/19 09:50 09:50 12:11 RBC 3.62 L Hgb 10.3 L Hct 30.7 L RDW 15.3 H Sodium 134.5 L BUN 26 H Creatinine 1.60 H Est GFR ( Amer) 43 L Est GFR (MDRD) Non-Af 36 L Glucose 344 H POC Glucose Alkaline Phosphatase 147 H Lipase 1648.0 H Urine Protein 100 H Urine Glucose (UA) >=500 H Urine Ketones TRACE H Urine Blood SMALL H 10/19/19 13:34 RBC Hgb Hct RDW Sodium BUN Creatinine Est GFR ( Amer) Est GFR (MDRD) Non-Af Glucose POC Glucose 224 H Alkaline Phosphatase Lipase Urine Protein Urine Glucose (UA) Urine Ketones Urine Blood 10/19/19 14:47 Labs- All tests 24 hr 10/19/19 10/19/19 10/19/19 09:50 09:50 10:52 WBC 8.4 RBC 3.62 L Hgb 10.3 L Hct 30.7 L MCV 85 MCH 28.5 MCHC 33.6 RDW 15.3 H Plt Count 294 Lymph % (Auto) 19.5 [place] % (Auto) 5.4 Eos % (Auto) 0.7 Baso % (Auto) 0.8 Absolute Neuts (auto) 6.2 Absolute Lymphs (auto) 1.6 Absolute Monos (auto) 0.5 Absolute Eos (auto) 0.1 Absolute Basos (auto) 0.1 Seg Neutrophils % 73.6 VBG pH 7.31 VBG pCO2 48.5 VBG HCO3 23.8 VBG Base Excess -2.9 Sodium 134.5 L Potassium 4.5 Chloride 106 Carbon Dioxide 23 Anion Gap 6 BUN 26 H Creatinine 1.60 H Est GFR ( Amer) 43 L Est GFR (MDRD) Non-Af 36 L Glucose 344 H POC Glucose Calcium 9.1 Total Bilirubin 0.5 Direct Bilirubin 0.3 Neonat Total Bilirubin Not Reportable Neonat Direct Bilirubin Not Reportable Neonat Indirect Bili Not Reportable AST 18 ALT 15 Alkaline Phosphatase 147 H Total Protein 6.4 Albumin 3.8 Lipase 1648.0 H Urine Color Urine Appearance Urine pH Ur Specific [place] Urine Protein Urine Glucose (UA) Urine Ketones Urine Blood Urine Nitrite Urine Bilirubin Urine Urobilinogen Ur Leukocyte Esterase Urine WBC (Auto) Urine RBC (Auto) Urine Bacteria (Auto) Squamous Epi Cells Auto Urine Mucus (Auto) Urine Ascorbic Acid 10/19/19 10/19/19 12:11 13:34 WBC RBC Hgb Hct MCV MCH MCHC RDW Plt Count Lymph % (Auto) [place] % (Auto) Eos % (Auto) Baso % (Auto) Absolute Neuts (auto) Absolute Lymphs (auto) Absolute Monos (auto) Absolute Eos (auto) Absolute Basos (auto) Seg Neutrophils % VBG pH VBG pCO2 VBG HCO3 VBG Base Excess Sodium Potassium Chloride Carbon Dioxide Anion Gap BUN Creatinine Est GFR ( Amer) Est GFR (MDRD) Non-Af Glucose POC Glucose 224 H Calcium Total Bilirubin Direct Bilirubin Neonat Total Bilirubin Neonat Direct Bilirubin Neonat Indirect Bili AST ALT Alkaline Phosphatase Total Protein Albumin Lipase Urine Color YELLOW Urine Appearance SLIGHTLY-CLOUDY Urine pH 5.0 Ur Specific [place] 1.017 Urine Protein 100 H Urine Glucose (UA) >=500 H Urine Ketones TRACE H Urine Blood SMALL H Urine Nitrite NEGATIVE Urine Bilirubin NEGATIVE Urine Urobilinogen NEGATIVE Ur Leukocyte Esterase NEGATIVE Urine WBC (Auto) 1 Urine RBC (Auto) 2 Urine Bacteria (Auto) TRACE Squamous Epi Cells Auto 5 Urine Mucus (Auto) RARE Urine Ascorbic Acid NEGATIVE - EKG Interpretation by Id EKG shows normal: Sinus rhythm Additional EKG results interpreted by me: 10/19/19 12:36 Sinus rhythm with a rate of 82, QTc 482, no acute ischemic changes Discharge - Discharge Clinical Impression: Chronic upper abdominal pain Chronic pancreatitis Qualifiers: Pancreatitis type: unspecified pancreatitis type Qualified Code(s): K86.1 - O ther chronic pancreatitis Nausea and vomiting Qualifiers: Vomiting type: unspecified Vomiting Intractability: non-intractable Qualified Code(s): R11.2 - Nausea with vomiting, unspecified Condition: Stable Disposition: HOME, SELF-CARE Instructions: Abdominal Pain ([facility]), Pancreatitis ([facility]), Vomiting ([facility]) Additional Instructions: Return immediately for any new or worsening symptoms: Worsening pain, vomiting, fever, or any concerning new symptoms Followup with your primary care provider, call tomorrow to make a followup appointment Follow-up with [facility] as planned Prescriptions: Oxycodone HCl/Acetaminophen [Percocet 5-325 mg Tablet] 1 - 2 tab PO Q8HP PRN #22 tab PRN Reason: Metoclopramide HCl [Reglan 10 mg Tablet] 10 mg PO Q8 PRN #12 tablet PRN Reason: Ondansetron [Zofran Odt 4 mg Tablet] 1 tab PO Q6H PRN #15 tab.rapdis PRN Reason: Referrals: RONALD BARKER FNP-C [Primary Care Provider] - 10/22/19 [facility] [Provider Group]
[2019-10-19 11:14] LABS: VENOUS BLOOD BASE EXCESS -2.9 mmol/L; VENOUS BLOOD HCO3 23.8 mmol/L (20-32); VENOUS BLOOD PCO2 48.5 mmHg (35-63); VENOUS BLOOD PH 7.31 (7.30-7.42)
[2019-10-19] MEDS ORDERED: NORMAL SALINE 1000 ML 1,000 ML IV ONE ×2 (11:40→13:15)
[2019-10-19] MEDS ORDERED: INSULIN REG, HUMAN 100 UNIT/ML 3 ML VIAL (PYX) SUBCUT ONE (11:40)
[2019-10-19] MEDS ORDERED: PROMETHAZINE HCL INJ 25 MG/1 ML VIAL IV ONE (12:32)
[2019-10-19 12:48] LABS: APPEARANCE,URINE SLIGHTLY-CLOUDY; BILIRUBIN,URINE NEGATIVE (NEGATIVE); COLOR,URINE YELLOW; GLUCOSE, URINE >=500 mg/dL (NEGATIVE); KETONES,URINE TRACE mg/dL (NEGATIVE); LEUKOCYTE ESTERASE,URINE NEGATIVE (NEGATIVE); NITRITE,URINE NEGATIVE (NEGATIVE); PROTEIN,URINE 100 mg/dL (NEGATIVE); URINE SPECIFIC GRAVITY 1.017; UROBILINOGEN,URINE NEGATIVE mg/dL (<2.0)
--- NOTE | 2019-10-19 16:49 | PDOC CONSULTATION ---
Consultation Consult Date: 10/19/19 Attending physician:: NGOC VEGA Provider Consulted: MIKE SALAS Consult reason:: Abdominal pain History of Present Illness Admission Date/PCP: LYNNE OLMEDO History of Present Illness: JJ HOFFMAN is a 39 year old female well-known to service with history of chronic abdominal pain from chronic pancreatitis, pancreatic insufficiency, CKD, diabetes mellitus on insulin, recent COVID-19 infection [asymptomatic really], who presents to the hospital once again with complaints of abdominal pain in her epigastric region. She also complains of some episodes of nausea and vomiting. However currently she states she would like to have a meal. Her symptoms have persisted since last discharge now with some progression in severity of pain. Pain is typical quality of pain which is dull and sometimes sharp in the epi gastrium and periumbilical region. She denies radiation. Denies any exacerbating factors. Notably was recently treated for the same thing and discharged with referral to pain management and her PCP to explore options for chronic pain control as this is a chronic problem for patient. She states she did go to see just a pain management clinic who told her that they will be able to see her on the scheduled date because she was referred from the hospital and not from her primary care provider. However she tells me that they just rescheduled her to come in after some coordination with the date of 11/29/2019 about 30 minutes ago. She states she would like to eat. She did receive Zofran again in the ER. Lipase noted to be elevated on lab. She states she has all her medications at home including her insulin and her antihypertensive medications. She also had an appointment via telemedicine with her primary care provider a few days ago and was given a referral for an estimator paperboard boxes for regular eye checkup. Past Medical History Cardiac Medical History: Reports: Hyperlipidema, Hypertension Denies: Atrial Fibrillation, Congestive Heart Failure, Coronary Artery Disease, DVT, Myocardial Infarction, Peripheral Vascular Disease, Pulmonary Embolism Pulmonary Medical History: Reports: Chronic Obstructive Pulmonary Disease (COPD) Denies: Asthma, Bronchitis, Pneumonia, Sleep Apnea Neurological Medical History: Reports: Seizures - last 07/27 Endocrine Medical History: Reports: Diabetes Mellitus Type 1, Diabetes Mellitus Type 2 Denies: Hyperthyroidism, Hypothyroidism Renal/ Medical History: GI Medical History: Reports: Gastroesophageal Reflux Disease Musculoskeltal Medical History: Denies: Arthritis Skin Medical History: Psychiatric Medical History: Denies: Depression Hematology: Reports: Anemia - hx of Denies: Bleeding Tendencies, Heparin Induced Thrombocytopenia Past Surgical History Past Surgical History: Reports: Section - x3, Hysterectomy - partial, Other - Recent Port-A-Cath placement Social History Smoking Status: Current Every Day Smoker Frequency of Alcohol Use: Social Hx Recreational Drug Use: Yes Drugs: Marijuana Hx Prescription Drug Abuse: No - Advance Directive Resuscitation Status: Full Code Family History Family History: DM, Hypertension Parental Family History Reviewed: Yes Children Family History Reviewed: NA Sibling(s) Family History Reviewed.: NA Medication/Allergy Home Medications: Insulin Aspart [Novolog Flexpen] 0 units SQ .SLIDINGSCALE 08/09/19 Levetiracetam [Keppra 500 mg Tablet] 500 mg PO Q12 09/15/19 Promethazine HCl [Phenergan 25 mg Tablet] 25 mg PO Q6HP PRN 09/15/19 Lipase/Protease/Amylase [Pancreaze-10 Capsule.] 1 cap PO BIDACBS #60 capsule. 09/19/19 Metoprolol Tartrate [Lopressor 25 mg Tablet] 25 mg PO Q12 #60 tablet 09/19/19 Tramadol HCl [Ultram 50 mg Tablet] 50 mg PO Q6HP PRN #20 tablet 09/19/19 Amlodipine Besylate [Norvasc 5 mg Tablet] 5 mg PO Q12 #60 tablet 10/03/19 Ascorbic Acid [Vitamin C 500 mg Tablet] 1,000 mg PO BID 10 Days 10/03/19 Azithromycin 250 mg PO DAILY #3 tablet 10/03/19 Cholecalciferol (Vitamin D3) [Vitamin D3 1000 Unit Tablet] 2,000 unit PO DAILY 10 Days 10/03/19 Insulin Glargine,Hum.rec.anlog [Lantus Insulin 100 Unit/1 ml 10 ml] See Protocol SUBCUT QHS #10 ml 10/03/19 Oxycodone HCl [Oxy-Ir 5 mg Tablet] 5 mg PO Q6HP PRN #10 tablet 10/03/19 Zinc Sulfate [Zinc-220 Capsule] 220 mg PO DAILY #10 capsule 10/03/19 Oxycodone HCl/Acetaminophen [Percocet 5-325 mg Tablet] 1 - 2 tab PO Q8HP PRN #22 tab 10/19/19 Allergies/Adverse Reactions: hydrocodone [From [place]] Allergy (Severe, Verified 10/19/19 10:04) ? morphine Allergy (Severe, Verified 10/19/19 10:04) ? Penicillins Allergy (Severe, Verified 10/19/19 10:04) ? prednisone Allergy (Severe, Verified 10/19/19 10:04) Edema Review of Systems Constitutional: ABSENT: chills, fever(s) Eyes: ABSENT: visual disturbances Cardiovascular: ABSENT: chest pain, dyspnea on exertion, orthropnea Respiratory: ABSENT: cough, dyspnea Gastrointestinal: PRESENT: abdominal pain, nausea. ABSENT: diarrhea Genitourinary: ABSENT: dysuria Integumentary: ABSENT: diaphoresis Neurological: ABSENT: dizziness Psychiatric: PRESENT: anxiety Endocrine: ABSENT: polyuria Allergic/Immunologic: ABSENT: seasonal rhinorrhea Physical Exam Vital Signs: Temp Pulse Resp BP Pulse Ox 97.8 F 89 16 173/103 H 100 10/19/19 14:11 10/19/19 14:11 10/19/19 14:11 10/19/19 14:11 10/19/19 14:11 Intake & Output 10/18/19 10/19/19 10/20/19 06:59 06:59 06:59 Intake Total 1000 Balance 1000 Weight 61.8 kg General appearance: PRESENT: no acute distress, cooperative Mouth exam: PRESENT: neck supple Neck exam: ABSENT: JVD Respiratory exam: PRESENT: clear to auscultation teddy, symmetrical, unlabored. ABSENT: tachypnea, wheezes Cardiovascular exam: PRESENT: RRR, +S1, +S2. ABSENT: tachycardia GI/Abdominal exam: PRESENT: guarding - Voluntary guarding, normal bowel sounds, soft, tenderness. ABSENT: distended, firm, hernia, rebound, rigid Extremities exam: ABSENT: pedal edema Neurological exam: PRESENT: alert, awake, oriented to person, oriented to place, oriented to time, oriented to situation Psychiatric exam: PRESENT: anxious. ABSENT: agitated Focused psych exam: ABSENT: pressured speech Skin exam: ABSENT: jaundice Results Laboratory Results: 10/19/19 09:50 10/19/19 09:50 10/19/19 10/19/19 10/19/19 09:50 09:50 10:52 WBC 8.4 RBC 3.62 L Hgb 10.3 L Hct 30.7 L MCV 85 MCH 28.5 MCHC 33.6 RDW 15.3 H Plt Count 294 Seg Neutrophils % 73.6 VBG pH 7.31 VBG pCO2 48.5 VBG HCO3 23.8 VBG Base Excess -2.9 Sodium 134.5 L Potassium 4.5 Chloride 106 Carbon Dioxide 23 Anion Gap 6 BUN 26 H Creatinine 1.60 H Est GFR ( Amer) 43 L Glucose 344 H Calcium 9.1 Total Bilirubin 0.5 AST 18 Alkaline Phosphatase 147 H Total Protein 6.4 Albumin 3.8 Lipase 1648.0 H Urine Color Urine Appearance Urine pH Ur Specific Range Urine Protein Urine Glucose (UA) Urine Ketones Urine Blood Urine Nitrite Ur Leukocyte Esterase Urine WBC (Auto) Urine RBC (Auto) 10/19/19 12:11 WBC RBC Hgb Hct MCV MCH MCHC RDW Plt Count Seg Neutrophils % VBG pH VBG pCO2 VBG HCO3 VBG Base Excess Sodium Potassium Chloride Carbon Dioxide Anion Gap BUN Creatinine Est GFR ( Amer) Glucose Calcium Total Bilirubin AST Alkaline Phosphatase Total Protein Albumin Lipase Urine Color YELLOW Urine Appearance SLIGHTLY-CLOUDY Urine pH 5.0 Ur Specific Range 1.017 Urine Protein 100 H Urine Glucose (UA) >=500 H Urine Ketones TRACE H Urine Blood SMALL H Urine Nitrite NEGATIVE Ur Leukocyte Esterase NEGATIVE Urine WBC (Auto) 1 Urine RBC (Auto) 2 Assessment and Plan - Diagnosis (1) Chronic abdominal pain Is this a current diagnosis for this admission?: Yes (2) Chronic pancreatitis Qualifiers: Is this a current diagnosis for this admission?: Yes (3) Pancreatic insufficiency Is this a current diagnosis for this admission?: Yes (4) CKD (chronic kidney disease) stage 3, GFR 30-59 ml/min Is this a current diagnosis for this admission?: Yes (5) Hyperglycemia due to diabetes mellitus Is this a current diagnosis for this admission?: Yes (6) Hypertension Qualifiers: Is this a current diagnosis for this admission?: Yes - Plan Summary Summary: Patient has chronic abdominal pain secondary to chronic pancreatitis. Lipase trending is not very adequate for determining acute flare in setting of chronic pancreatitis. Most recent abd/pelv CT last month did not show acute inflammatory changes but just shows changes consistent with chronic pancreatitis with significant calcifications. Ultimately, goal of care should be to establish patient with long-term outpatie nt painter hand will help with the management of her chronic pain rather than readmissions. Multiple work-ups this year for evaluation of abdominal pain including, upper endoscopy, gastric emptying study and multiple abdominal/pelvic CTs have been unremarkable only showing chronic pancreatitis. Vital signs and labs reviewed. Patient notably hypertensive but not in hypertensive emergency. Advised to take her prescribed antihypertensives. Currently states she has filled her BP meds and has her insulin at home. Her renal function is stable. She is to follow-up with [facility] on 11/29/2019 as she states that they just made a date for follow-up. Currently she is requesting food. Okay to eat. Recommend Reglan and Phenergan po as needed for vomiting. I will give Rx for Percocet. Encourage p.o. hydration. Antiemetics. Recommended to continue to take antihypertensive medication and insulin. Patient can be discharged home. - Time Time Spent with patient: 35 or more minutes Anticipated Discharge Disposition: Home, Self Care Anticipated Discharge Timeframe: within 24 hours
[2019-10-19 17:51] VITALS: BP 185/92
--- NOTE | 2019-10-22 07:13 | EKG REPORT ---
SEVERITY:- ABNORMAL ECG - SINUS RHYTHM LEFT ATRIAL ABNORMALITY ABNORMAL Q SUGGESTS ANTERIOR INFARCT : Confirmed by: Valentina Fierro 22-Oct-2019 07:12:45
== END 2019-10-19 17:49 | disposition home or self-care (01) ==
LOC: ER 07:47
DX: K86.1 Other chronic pancreatitis (principal); R11.2 Nausea with vomiting, unspecified; R10.816 Epigastric abdominal tenderness; R10.13 Epigastric pain; G89.29 Other chronic pain; I12.9 Hypertensive chronic kidney disease with stage 1 through stage 4 chronic kidney disease, or unspecified chronic kidney disease; E11.22 Type 2 diabetes mellitus with diabetic chronic kidney disease; E11.65 Type 2 diabetes mellitus with hyperglycemia; N18.3 Chronic kidney disease, stage 3 (moderate); J44.9 Chronic obstructive pulmonary disease, unspecified; F17.200 Nicotine dependence, unspecified, uncomplicated; R56.9 Unspecified convulsions; Z79.4 Long term (current) use of insulin; Z79.899 Other long term (current) drug therapy; Z79.2 Long term (current) use of antibiotics; Z86.19 Personal history of other infectious and parasitic diseases; Z88.6 Allergy status to analgesic agent; Z88.5 Allergy status to narcotic agent
CPT/HCPCS: 93005; 36591; 96376; 99284; 96372; 96361; 96374; 96375; 36415; 82962; 83690; 85025; 80053; 81001; 82803; 93010; J1170; J1815; J2550; J2405; J7030; J1642

== ENCOUNTER 2019-10-25 12:25 | Emergency (ER) | payer MEDICAID ==
[2019-10-25 12:41] VITALS: BP 174/102
[2019-10-25] MEDS ORDERED: RINGERS SOLUTION,LACTATED 1,000 ML IV ONE (12:58)
[2019-10-25] MEDS ORDERED: METOCLOPRAMIDE HCL INJ/PF 10 MG/2 ML SDV IV ONE (12:58)
--- NOTE | 2019-10-25 13:01 | ER Document Report ---
ED Medical Screen (RME) - General Chief Complaint: Abdominal Pain Stated Complaint: ABDOMINAL PAIN Time Seen by Provider: 10/25/19 12:53 Primary Care Provider: RONALD BARKER FNP-C [Primary Care Provider] - Follow up as needed Mode of Arrival: Ambulatory Information source: Patient Notes: HPI; 39-year-old female past medical history significant for chronic pancreat itis with multiple ER visits presents emergency room complaining of worsening abdominal pain for the past 3 days. Complains of nausea with vomiting. States she took Phenergan and oxycodone at 530 this morning neither which are helping with her symptoms. Denies any fevers. Denies any recent travel. Denies any urinary symptoms. PE: Alert and oriented x3. Mild distress noted. Lungs: Clear to auscultation without rales, rhonchi, wheezes. Heart: Tachycardia without murmurs, rubs, gallops. Unable to do full abdominal exam in triage. I have greeted and performed a rapid initial assessment of this patient. A comprehensive ED assessment and evaluation of the patient, analysis of test results and completion of the medical decision making process will be conducted by additional ED providers. I have specifically instructed the patient or family members with the patient to immediately return to any nursing staff should anything change in the patient's condition or with their chief complaint. TRAVEL OUTSIDE OF THE [place] IN LAST 30 DAYS: No - Related Data Allergies/Adverse Reactions: hydrocodone [From [place]] Allergy (Severe, Verified 10/19/19 10:04) ? morphine Allergy (Severe, Verified 10/19/19 10:04) ? Past Medical History - Social History Frequency of alcohol use: None Drug Abuse: Marijuana Family history: None - Past Medical History Cardiac Medical History: Reports: Hx Hypercholesterolemia, Hx Hypertension Denies: Hx Atrial Fibrillation, Hx Congestive Heart Failure, Hx Coronary Artery Disease, Hx DVT, Hx Heart Attack, Hx Peripheral Vascular Disease, Hx Pulmonary Embolism Pulmonary Medical History: Reports: Hx COPD Denies: Hx Asthma, Hx Bronchitis, Hx Pneumonia, Hx Sleep Apnea Neurological Medical History: Reports: Hx Seizures - last 07/27. Denies: Hx Cerebrovascular Accident Endocrine Medical History: Reports: Hx Diabetes Mellitus Type 1, Hx Diabetes Mellitus Type 2. Denies: Hx Hyperthyroidism, Hx Hypothyroidism Renal/ Medical History: Reports: Hx Renal Insufficiency GI Medical History: Reports: Hx Gastroesophageal Reflux Disease, Hx Pancreatitis - Chronic Musculoskeltal Medical History: Denies Hx Arthritis, Reports Hx Musculoskeletal Trauma Skin Medical History: Psychiatric Medical History: Reports: Hx Anxiety Denies: Hx Depression Infectious Medical History: Past Surgical History: Reports: Hx Section - x3, Hx Hysterectomy - partial, Other - Recent Port-A-Cath placement - Immunizations Immunizations up to date: Yes Hx Diphtheria, Pertussis, Tetanus Vaccination: Yes Physical Exam - Vital signs Vitals: Temp Pulse Resp BP Pulse Ox 98.1 F 108 H 16 174/102 H 96 10/25/19 12:39 10/25/19 12:39 10/25/19 12:39 10/25/19 12:39 10/25/19 12:39 Course - Vital Signs Vital signs: Temp Pulse Resp BP Pulse Ox 98.1 F 108 H 16 174/102 H 96 10/25/19 12:39 10/25/19 12:39 10/25/19 12:39 10/25/19 12:39 10/25/19 12:39 Doctor's Discharge - Discharge Referrals: RONALD BARKER FNP-C [Primary Care Provider] - Follow up as needed
== END 2019-10-25 16:00 | disposition left against medical advice (07) ==
LOC: ER 12:25
DX: Z53.20 Procedure and treatment not carried out because of patient's decision for unspecified reasons (principal); R10.9 Unspecified abdominal pain; R11.2 Nausea with vomiting, unspecified; Z79.899 Other long term (current) drug therapy; Z88.8 Allergy status to other drugs, medicaments and biological substances; F12.10 Cannabis abuse, uncomplicated; I10 Essential (primary) hypertension; J44.9 Chronic obstructive pulmonary disease, unspecified; E11.9 Type 2 diabetes mellitus without complications
CPT/HCPCS: 99281

== ENCOUNTER 2019-10-25 16:19 | Emergency (ER) | payer MEDICAID ==
--- NOTE | 2019-10-25 16:59 | ER Document Report ---
ED Medical Screen (RME) - General Chief Complaint: Abdominal Pain Stated Complaint: ABDOMINAL PAIN Primary Care Provider: RONALD BARKER FNP-C [Primary Care Provider] - Follow up as needed Mode of Arrival: Medic Information source: Patient Notes: 39-year-old female presented to ED for complaint of abdominal pain times last 3 days. She states she has not been to see [facility] [place]. She states she smokes 3 or 4 cigarettes a day. She states she does drink once a week and then she could not tell me how much she drank or how often she would drinks. She states she does not use any illicit drugs but the last time she was here she stated she did use marijuana. She is alert oriented respirations regular and unlabored and then she started saying she does not understand what I am saying to her. She was totally alert and oriented when I started the conversation but when I asked her about alcohol or drugs she also he did not know what I was talking about. Will order blood and urine and she will be seen by another provider. Manual blood pressure is 184/120 the left arm pulse is 112 I have greeted and performed a rapid initial assessment of this patient. A comprehensive ED assessment and evaluation of the patient, analysis of test results and completion of medical decision making process will be conducted by an additional ED providers. TRAVEL OUTSIDE OF THE [place] IN LAST 30 DAYS: No - Related Data Allergies/Adverse Reactions: hydrocodone [From [place]] Allergy (Severe, Verified 10/19/19 10:04) ? morphine Allergy (Severe, Verified 10/19/19 10:04) ? Past Medical History - Social History Family history: None - Past Medical History Cardiac Medical History: Reports: Hx Hypercholesterolemia, Hx Hypertension Denies: Hx Atrial Fibrillation, Hx Congestive Heart Failure, Hx Coronary Artery Disease, Hx DVT, Hx Heart Attack, Hx Peripheral Vascular Disease, Hx Pulmonary Embolism Pulmonary Medical History: Reports: Hx COPD Denies: Hx Asthma, Hx Bronchitis, Hx Pneumonia, Hx Sleep Apnea Neurological Medical History: Reports: Hx Seizures - last 07/27. Denies: Hx Cerebrovascular Accident Endocrine Medical History: Reports: Hx Diabetes Mellitus Type 1, Hx Diabetes Mellitus Type 2. Denies: Hx Hyperthyroidism, Hx Hypothyroidism Renal/ Medical History: Reports: Hx Renal Insufficiency GI Medical History: Reports: Hx Gastroesophageal Reflux Disease, Hx Pancreatitis - Chronic Musculoskeltal Medical History: Denies Hx Arthritis, Reports Hx Musculoskeletal Trauma Skin Medical History: Psychiatric Medical History: Reports: Hx Anxiety Denies: Hx Depression Infectious Medical History: Past Surgical History: Reports: Hx Section - x3, Hx Hysterectomy - partial, Other - Recent Port-A-Cath placement - Immunizations Immunizations up to date: Yes Hx Diphtheria, Pertussis, Tetanus Vaccination: Yes Physical Exam - Vital signs Vitals: Temp Pulse Resp BP Pulse Ox 98.2 F 112 H 16 194/125 H 100 10/25/19 16:33 10/25/19 16:33 10/25/19 16:33 10/25/19 16:33 10/25/19 16:33 Course - Vital Signs Vital signs: Temp Pulse Resp BP Pulse Ox 98.2 F 112 H 16 194/125 H 100 10/25/19 16:33 10/25/19 16:33 10/25/19 16:33 10/25/19 16:33 10/25/19 16:33 Doctor's Discharge - Discharge Referrals: RONALD BARKER, ROSIO-C [Primary Care Provider] - Follow up as needed
--- NOTE | 2019-10-25 18:29 | EKG REPORT ---
SEVERITY:- ABNORMAL ECG - SINUS TACHYCARDIA PROBABLE LEFT ATRIAL ABNORMALITY PROBABLE LEFT VENTRICULAR HYPERTROPHY : Confirmed by: Valentina Fierro 25-Oct-2019 18:29:25
[2019-10-25] MEDS ORDERED: HYDROMORPHONE HCL INJ/PF 2 MG/ML AMPULE IV ONE ×2 (18:56→22:31)
[2019-10-25] MEDS ORDERED: ONDANSETRON HCL INJ/PF 4 MG/2 ML SDV IV ONE (18:56)
[2019-10-25] MEDS ORDERED: NORMAL SALINE 1000 ML 1,000 ML IV ONE (18:56)
--- NOTE | 2019-10-25 19:09 | ER Document Report ---
ED GI/ - General Chief Complaint: Abdominal Pain Stated Complaint: ABDOMINAL PAIN Time Seen by Provider: 10/25/19 18:23 Primary Care Provider: AJIT PALOMINO MD [ACTIVE STAFF] - Follow up tomorrow RONALD BARKER FNP-C [Primary Care Provider] - Follow up as needed Mode of Arrival: Ambulatory Information source: Patient Notes: Patient presents with a 3-day history of nausea vomiting and epigastric tenderness. Patient states she has been taking Phenergan and Percocet at home without improvement of her symptoms. Patient has a history of pancreatitis and suspects the same today. Patient denies any fever cough or diarrhea. TRAVEL OUTSIDE OF THE [place] IN LAST 30 DAYS: No - HPI Patient complains to provider of: Abdominal pain, Vomiting Onset: Other - 3 days Timing/Duration: Persistent, Worse Quality of pain: Sharp Pain Level: 5 Location: Epigastric Vaginal bleeding (Compared to normal period): None Associated symptoms: Nausea, Vomiting. denies: Chest pain, Coffee ground emesis, Dysuria, Fever, Urinary hesitancy, Urinary frequency, Urinary retention, Urinary urgency Exacerbated by: Denies Relieved by: Denies Similar symptoms previously: Yes Recently seen / treated by doctor: Yes - Related Data Allergies/Adverse Reactions: hydrocodone [From [place]] Allergy (Severe, Verified 10/19/19 10:04) ? morphine Allergy (Severe, Verified 10/19/19 10:04) ? Past Medical History - General Information source: Patient - Social History Smoking Status: Current Every Day Smoker Frequency of alcohol use: None Drug Abuse: Marijuana Occupation: None Lives with: Family Family History: DM, Hypertension - Past Medical History Cardiac Medical History: Reports: Hx Hypercholesterolemia, Hx Hypertension Pulmonary Medical History: Reports: Hx COPD Neurological Medical History: Reports: Hx Seizures - last 07/27. Denies: Hx Cerebrovascular Accident Endocrine Medical History: Reports: Hx Diabetes Mellitus Type 1, Hx Diabetes Mellitus Type 2. Denies: Hx Hyperthyroidism, Hx Hypothyroidism Renal/ Medical History: Reports: Hx Renal Insufficiency GI Medical History: Reports: Hx Gastroesophageal Reflux Disease, Hx Pancreatitis - Chronic Musculoskeletal Medical History: Denies Hx Arthritis, Reports Hx Musculoskeletal Trauma Skin Medical History: Psychiatric Medical History: Reports: Hx Anxiety Denies: Hx Depression Infectious Medical History: Past Surgical History: Reports: Hx Section - x3, Hx Hysterectomy - partial, Other - Recent Port-A-Cath placement - Immunizations Immunizations up to date: Yes Hx Diphtheria, Pertussis, Tetanus Vaccination: Yes Review of Systems - Review of Systems Constitutional: No symptoms reported. denies: Fever EENT: No symptoms reported Cardiovascular: No symptoms reported. denies: Chest pain Respiratory: No symptoms reported. denies: Cough, Short of breath Gastrointestinal: Abdominal pain, Nausea, Vomiting. denies: Diarrhea Genitourinary: No symptoms reported. denies: Dysuria Female Genitourinary: No symptoms reported Musculoskeletal: No symptoms reported Skin: No symptoms reported Hematologic/Lymphatic: No symptoms reported Neurological/Psychological: No symptoms reported Physical Exam - Vital signs Vitals: Temp Pulse Resp BP Pulse Ox 98.2 F 112 H 16 194/125 H 100 10/25/19 16:33 10/25/19 16:33 10/25/19 16:33 10/25/19 16:33 10/25/19 16:33 - General General appearance: Alert, Anxious In distress: None - HEENT Head: Normocephalic, Atraumatic Eyes: Normal Conjunctiva: Normal Nasal: Normal Mouth/Lips: Normal Mucous membranes: Dry Pharynx: Normal Neck: Normal, Supple. No: Lymphadenopathy - Respiratory Respiratory status: No respiratory distress Chest status: Nontender Breath sounds: Normal. No: Rales, Rhonchi, Stridor, Wheezing Chest palpation: Normal - Cardiovascular Rhythm: Tachycardia Heart sounds: S1 appreciated, S2 appreciated Murmur: No - Abdominal Inspection: Normal Distension: No distension Bowel sounds: Normal Tenderness: Tender - Epigastric Organomegaly: No organomegaly - Back Back: CVA tenderness - Left - Extremities General upper extremity: Normal inspection, Normal strength General lower extremity: Normal inspection, Normal strength - Neurological Neuro grossly intact: Yes Cognition: Normal Orientation: AAOx4 [place] Coma Scale Eye Opening: Spontaneous [place] Coma Scale Verbal: Oriented [place] Coma Scale Motor: Obeys Commands [place] Com[place] Scale Total: 15 - Psychological Associated symptoms: Anxious, Tearful - Skin Skin Temperature: Warm Skin Moisture: Dry Skin Color: Normal Course - Re-evaluation Re-evalutation: 10/25/19 20:58 Patient reports nausea is improved although states that epigastric pain is starting to return. Will give patient a GI cocktail at this time. Patient with out any significant elevation of her lipase test at this time. 10/25/19 22:31 Patient reports that pain had improved after the GI cocktail although pain is starting to return. Discussed with patient concern about marijuana hyperemesis syndrome. Discussed with patient her symptoms are consistent with gastritis with incidental finding of UTI. Patient encouraged to follow-up with her claims assistant for recheck. Patient without any fever, leukocytosis or elevated lipase worrisome for pancreatitis at this time. Patient appears to feel better. Patient is agreeable with discharge plan of care at this time. - Vital Signs Vital signs: Temp Pulse Resp BP Pulse Ox 97.9 F 102 H 16 186/106 H 99 10/25/19 22:54 10/25/19 22:54 10/25/19 22:54 10/25/19 22:54 10/25/19 22:54 - Laboratory Result Diagrams: 10/25/19 19:25 10/25/19 19:25 Laboratory results interpreted by me: 10/25/19 10/25/19 10/25/19 19:25 19:25 20:45 Hgb 10.9 L Hct 31.9 L RDW 15.5 H Lymph % (Auto) 12.4 L [place] % (Auto) 2.1 L Absolute Neuts (auto) 8.7 H Seg Neutrophils % 84.5 H VBG pH Carbon Dioxide 21 L Creatinine 1.78 H Est GFR ( Amer) 38 L Est GFR (MDRD) Non-Af 32 L Glucose 332 H POC Glucose Alkaline Phosphatase 149 H Lipase 368.4 H Urine Protein 100 H Urine Glucose (UA) >=500 H Urine Ketones 20 H Urine Blood SMALL H Urine Nitrite POSITIVE H Acetaminophen < 10 L 10/25/19 10/25/19 20:54 22:00 Hgb Hct RDW Lymph % (Auto) [place] % (Auto) Absolute Neuts (auto) Seg Neutrophils % VBG pH 7.25 L Carbon Dioxide Creatinine Est GFR ( Amer) Est GFR (MDRD) Non-Af Glucose POC Glucose 306 H Alkaline Phosphatase Lipase Urine Protein Urine Glucose (UA) Urine Ketones Urine Blood Urine Nitrite Acetaminophen Labs- All tests 24 hr 10/25/19 10/25/19 10/25/19 19:25 19:25 19:25 WBC 10.4 RBC 3.80 Hgb 10.9 L Hct 31.9 L MCV 84 MCH 28.7 MCHC 34.2 RDW 15.5 H Plt Count 307 Lymph % (Auto) 12.4 L [place] % (Auto) 2.1 L Eos % (Auto) 0.2 Baso % (Auto) 0.8 Absolute Neuts (auto) 8.7 H Absolute Lymphs (auto) 1.3 Absolute Monos (auto) 0.2 Absolute Eos (auto) 0.0 Absolute Basos (auto) 0.1 Seg Neutrophils % 84.5 H VBG pH VBG pCO2 VBG HCO3 VBG Base Excess Sodium 137.4 Potassium 4.6 Chloride 107 Carbon Dioxide 21 L Anion Gap 9 BUN 19 Creatinine 1.78 H Est GFR ( Amer) 38 L Est GFR (MDRD) Non-Af 32 L Glucose 332 H POC Glucose Calcium 9.5 Total Bilirubin 0.5 Direct Bilirubin 0.4 Neonat Total Bilirubin Not Reportable Neonat Direct Bilirubin Not Reportable Neonat Indirect Bili Not Reportable AST 24 ALT 15 Alkaline Phosphatase 149 H Total Protein 7.5 Albumin 4.5 Lipase 368.4 H Serum HCG, Qual NEGATIVE Urine Color Urine Appearance Urine pH Ur Specific [place] Urine Protein Urine Glucose (UA) Urine Ketones Urine Blood Urine Nitrite Urine Bilirubin Urine Urobilinogen Ur Leukocyte Esterase Urine WBC (Auto) Urine RBC (Auto) Squamous Epi Cells Auto Urine Ascorbic Acid Urine Opiates Screen Urine Methadone Screen Acetaminophen < 10 L Ur Barbiturates Screen Ur Phencyclidine Scrn Ur Amphetamines Screen U Benzodiazepines Scrn Urine Cocaine Screen U Marijuana (THC) Screen Serum Alcohol < 10 10/25/19 10/25/19 10/25/19 20:45 20:45 20:54 WBC RBC Hgb Hct MCV MCH MCHC RDW Plt Count Lymph % (Auto) [place] % (Auto) Eos % (Auto) Baso % (Auto) Absolute Neuts (auto) Absolute Lymphs (auto) Absolute Monos (auto) Absolute Eos (auto) Absolute Basos (auto) Seg Neutrophils % VBG pH 7.25 L VBG pCO2 47.3 VBG HCO3 20.3 VBG Base Excess -7.0 Sodium Potassium Chloride Carbon Dioxide Anion Gap BUN Creatinine Est GFR ( Amer) Est GFR (MDRD) Non-Af Glucose POC Glucose Calcium Total Bilirubin Direct Bilirubin Neonat Total Bilirubin Neonat Direct Bilirubin Neonat Indirect Bili AST ALT Alkaline Phosphatase Total Protein Albumin Lipase Serum HCG, Qual Urine Color YELLOW Urine Appearance CLEAR Urine pH 5.0 Ur Specific [place] 1.013 Urine Protein 100 H Urine Glucose (UA) >=500 H Urine Ketones 20 H Urine Blood SMALL H Urine Nitrite POSITIVE H Urine Bilirubin NEGATIVE Urine Urobilinogen NEGATIVE Ur Leukocyte Esterase NEGATIVE Urine WBC (Auto) 1 Urine RBC (Auto) 3 Squamous Epi Cells Auto 2 Urine Ascorbic Acid NEGATIVE Urine Opiates Screen UNCONFIRMED POSITIVE Urine Methadone Screen NEGATIVE Acetaminophen Ur Barbiturates Screen NEGATIVE Ur Phencyclidine Scrn NEGATIVE Ur Amphetamines Screen NEGATIVE U Benzodiazepines Scrn NEGATIVE Urine Cocaine Screen NEGATIVE U Marijuana (THC) Screen UNCONFIRMED POSITIVE Serum Alcohol 10/25/19 22:00 WBC RBC Hgb Hct MCV MCH MCHC RDW Plt Count Lymph % (Auto) [place] % (Auto) Eos % (Auto) Baso % (Auto) Absolute Neuts (auto) Absolute Lymphs (auto) Absolute Monos (auto) Absolute Eos (auto) Absolute Basos (auto) Seg Neutrophils % VBG pH VBG pCO2 VBG HCO3 VBG Base Excess Sodium Potassium Chloride Carbon Dioxide Anion Gap BUN Creatinine Est GFR ( Amer) Est GFR (MDRD) Non-Af Glucose POC Glucose 306 H Calcium Total Bilirubin Direct Bilirubin Neonat Total Bilirubin Neonat Direct Bilirubin Neonat Indirect Bili AST ALT Alkaline Phosphatase Total Protein Albumin Lipase Serum HCG, Qual Urine Color Urine Appearance Urine pH Ur Specific [place] Urine Protein Urine Glucose (UA) Urine Ketones Urine Blood Urine Nitrite Urine Bilirubin Urine Urobilinogen Ur Leukocyte Esterase Urine WBC (Auto) Urine RBC (Auto) Squamous Epi Cells Auto Urine Ascorbic Acid Urine Opiates Screen Urine Methadone Screen Acetaminophen Ur Barbiturates Screen Ur Phencyclidine Scrn Ur Amphetamines Screen U Benzodiazepines Scrn Urine Cocaine Screen U Marijuana (THC) Screen Serum Alcohol - EKG Interpretation by Al EKG shows normal: Sinus rhythm Rate: Tachycardia When compared to previous EKG there are: No significant change Additional EKG results interpreted by me: 10/26/19 00:13 Sinus tachycardia with a rate of 107, QTc 475, no acute ischemic changes Discharge - Discharge Clinical Impression: Chronic upper abdominal pain, Marijuana abuse Gastritis Qualifiers: Gastritis type: unspecified gastritis Chronicity: unspecified Gastritis bleeding: without bleeding Qualified Code(s): K29.70 - Gastritis, unspecified, without bleeding UTI (urinary tract infection) Qualifiers: Urinary tract infection type: site unspecified Hematuria presence: with hematuria Qualified Code(s): N39.0 - Urinary tract infection, site not specified Condition: Stable Disposition: HOME, SELF-CARE Instructions: Abdominal Pain ([facility]), Cephalexin ([facility]), Gastritis ([facility]), Urinary Tract Infection ([facility]) Additional Instructions: Return immediately for any new or worsening symptoms Followup with your primary care provider, call tomorrow to make a followup appointment Avoid use of marijuana as this can worsen your symptoms Follow-up with your claims assistant for recheck, call tomorrow for an appointment Prescriptions: Sucralfate [Carafate 1 gm Tablet] 1 gm PO ACHS #24 tablet Cephalexin Monohydrate [Keflex 500 mg Capsule] 500 mg PO BID 5 Days #10 capsule Referrals: RONALD BARKER FNP-C [Primary Care Provider] - Follow up as needed AJIT PALOMINO MD [ACTIVE STAFF] - Follow up tomorrow
[2019-10-25 19:54] LABS: ABSOLUTE BASOPHILS # (AUTO) 0.1 10^3/uL (0.0-0.2); ABSOLUTE LYMPHOCYTES (AUTO) 1.3 10^3/uL (0.5-4.7); ABSOLUTE MONOCYTES (AUTO) 0.2 10^3/uL (0.1-1.4); ABSOLUTE NEUT (AUTO) 8.7 10^3/uL (1.7-8.2); BASOPHILS % (AUTO) 0.8 % (0-2); EOSINOPHILS % (AUTO) 0.2 % (0-6); HEMATOCRIT 31.9 % (36.0-47.0); HEMOGLOBIN 10.9 g/dL (12.0-15.5); LYMPHOCYTES % (AUTO) 12.4 % (13-45); MEAN CORPUSCULAR HEMOGLOBIN 28.7 pg (27.0-33.4); MEAN CORPUSCULAR HGB CONC 34.2 g/dL (32.0-36.0); MEAN CORPUSCULAR VOLUME 84 fl (80-97); MONOCYTES % (AUTO) 2.1 % (3-13); PLATELET COUNT 307 10^3/uL (150-450); RED CELL DISTRIBUTION WIDTH 15.5 % (11.5-14.0); SEGMENTED NEUTROPHILS % (AUTO) 84.5 % (42-78); TOTAL CELLS COUNTED % (AUTO) 100 %; WHITE BLOOD COUNT 10.4 10^3/uL (4.0-10.5)
[2019-10-25 20:06] LABS: ALBUMIN 4.5 g/dL (3.5-5.0); ALKALINE PHOSPHATASE 149 U/L (38-126); ANION GAP 9 (5-19); ASPARTATE AMINO TRANSFERASE 24 U/L (14-36); BILIRUBIN,DIRECT 0.4 mg/dL (0.0-0.4); BILIRUBIN,TOTAL 0.5 mg/dL (0.2-1.3); BLOOD UREA NITROGEN 19 mg/dL (7-20); CALCIUM 9.5 mg/dL (8.4-10.2); CARBON DIOXIDE 21 mmol/L (22-30); CHLORIDE 107 mmol/L (98-107); GLUCOSE 332 mg/dL (75-110); POTASSIUM 4.6 mmol/L (3.6-5.0); TOTAL PROTEIN 7.5 g/dL (6.3-8.2)
[2019-10-25 20:09] LABS: ACETAMINOPHEN < 10 ug/mL (10-30); ALCOHOL < 10 mg/dL (NONE DETECTED)
[2019-10-25] MEDS ORDERED: INSULIN REG, HUMAN 100 UNIT/ML 3 ML VIAL (PYX) SUBCUT ONE (20:47)
[2019-10-25] MEDS ORDERED: METOPROLOL TARTRATE 25 MG TABLET PO ONE (20:49)
[2019-10-25] MEDS ORDERED: AMLODIPINE BESYLATE 5 MG TABLET PO ONE (20:49)
[2019-10-25] MEDS ORDERED: MAG HYDROX/AL HYDROX/SIMETH SUSP 30 ML UDCUP PO ONE (20:57)
[2019-10-25] MEDS ORDERED: LIDOCAINE 2% VISCOUS SOLN 15 ML UDCUP PO ONE (20:57)
[2019-10-25 21:13] LABS: VENOUS BLOOD HCO3 20.3 mmol/L (20-32); VENOUS BLOOD PCO2 47.3 mmHg (35-63); VENOUS BLOOD PH 7.25 (7.30-7.42)
[2019-10-25 21:15] LABS: APPEARANCE,URINE CLEAR; BILIRUBIN,URINE NEGATIVE (NEGATIVE); COLOR,URINE YELLOW; GLUCOSE, URINE >=500 mg/dL (NEGATIVE); KETONES,URINE 20 mg/dL (NEGATIVE); LEUKOCYTE ESTERASE,URINE NEGATIVE (NEGATIVE); NITRITE,URINE POSITIVE (NEGATIVE); PROTEIN,URINE 100 mg/dL (NEGATIVE); URINE SPECIFIC GRAVITY 1.013; UROBILINOGEN,URINE NEGATIVE mg/dL (<2.0)
[2019-10-25] MEDS ORDERED: CEFTRIAXONE 1 GM/D5W RTU 1 GM/50 ML RTUPB IV ONE (21:17)
[2019-10-25 21:29] LABS: URINE AMPHETAMINES SCREEN NEGATIVE; URINE BARBITURATES SCREEN NEGATIVE; URINE BENZODIAZEPINES SCREEN NEGATIVE; URINE COCAINE SCREEN NEGATIVE; URINE METHADONE SCREEN NEGATIVE; URINE PHENCYCLIDINE SCREEN NEGATIVE
[2019-10-25 21:30] LABS: URINE MARIJUANA (THC) SCREEN UNCONFIRMED POSITIVE
[2019-10-25 22:56] VITALS: BP 186/106
== END 2019-10-25 23:09 | disposition home or self-care (01) ==
LOC: ER 16:19
DX: K29.70 Gastritis, unspecified, without bleeding (principal); N39.0 Urinary tract infection, site not specified; F12.10 Cannabis abuse, uncomplicated; F10.10 Alcohol abuse, uncomplicated; G89.29 Other chronic pain; R10.9 Unspecified abdominal pain; R11.2 Nausea with vomiting, unspecified; R10.13 Epigastric pain; Z79.899 Other long term (current) drug therapy; F17.200 Nicotine dependence, unspecified, uncomplicated; I10 Essential (primary) hypertension; J44.9 Chronic obstructive pulmonary disease, unspecified; E11.9 Type 2 diabetes mellitus without complications
CPT/HCPCS: 93005; 99285; 96361; 96375; 96365; 36415; 87086; 82962; 80307 ×3; 83690; 84703; 87070; 87088; 81001; 87186; 82803; 93010; J3490 ×4; J1170; J1815; J2405; J7030; J0696; J1642

== ENCOUNTER 2019-10-27 10:22 | Emergency (ER) | payer MEDICAID ==
--- NOTE | 2019-10-27 10:36 | ER Document Report ---
ED Medical Screen (RME) - General Chief Complaint: Abdominal Pain Stated Complaint: ABDOMINAL PAIN Time Seen by Provider: 10/27/19 10:30 Primary Care Provider: RONALD BARKER FNP-C [Primary Care Provider] - Follow up as needed Mode of Arrival: Wheelchair Notes: 39-year-old female presented to ED for complaint of abdominal pain for the last 2 months. She states she has followed up with [facility] [place] about her pain last week. She states she smokes 3 or 4 cigarettes a day. She states she does not use any illicit drugs but the last time she was here she stated she did use marijuana. She is alert oriented respirations regular and unlabored . Will order blood and urine and she will be seen by another provider. Blood pressure is 157/98 pulse is 98. I have greeted and performed a rapid initial assessment of this patient. A comprehensive ED assessment and evaluation of the patient, analysis of test results and completion of medical decision making process will be conducted by an additional ED providers. TRAVEL OUTSIDE OF THE [place] IN LAST 30 DAYS: No - Related Data Allergies/Adverse Reactions: hydrocodone [From [place]] Allergy (Severe, Verified 10/19/19 10:04) ? morphine Allergy (Severe, Verified 10/19/19 10:04) ? Past Medical History - Social History Family history: None - Past Medical History Cardiac Medical History: Reports: Hx Hypercholesterolemia, Hx Hypertension Denies: Hx Atrial Fibrillation, Hx Congestive Heart Failure, Hx Coronary Artery Disease, Hx DVT, Hx Heart Attack, Hx Peripheral Vascular Disease, Hx Pulmonary Embolism Pulmonary Medical History: Reports: Hx COPD Denies: Hx Asthma, Hx Bronchitis, Hx Pneumonia, Hx Sleep Apnea Neurological Medical History: Reports: Hx Seizures - last 07/27. Denies: Hx Cerebrovascular Accident Endocrine Medical History: Reports: Hx Diabetes Mellitus Type 1, Hx Diabetes Mellitus Type 2. Denies: Hx Hyperthyroidism, Hx Hypothyroidism Renal/ Medical History: Reports: Hx Renal Insufficiency GI Medical History: Reports: Hx Gastroesophageal Reflux Disease, Hx Pancreatitis - Chronic Musculoskeltal Medical History: Denies Hx Arthritis, Reports Hx Musculoskeletal Trauma Skin Medical History: Psychiatric Medical History: Reports: Hx Anxiety Denies: Hx Depression Infectious Medical History: Past Surgical History: Reports: Hx Section - x3, Hx Hysterectomy - partial, Other - Recent Port-A-Cath placement - Immunizations Immunizations up to date: Yes Hx Diphtheria, Pertussis, Tetanus Vaccination: Yes Physical Exam - Vital signs Vitals: Temp Pulse Resp BP Pulse Ox 98.5 F 98 20 157/97 H 97 10/27/19 10:10/27/19 10:10/27/19 10:10/27/19 10:10/27/19 10:29 Course - Vital Signs Vital signs: Temp Pulse Resp BP Pulse Ox 98.5 F 98 20 157/97 H 97 10/27/19 10:10/27/19 10:10/27/19 10:29 10/27/19 10:29 10/27/19 10:29 Doctor's Discharge - Discharge Referrals: RONALD BARKER FNP-C [Primary Care Provider] - Follow up as needed
[2019-10-27 11:19] LABS: APPEARANCE,URINE SLIGHTLY-CLOUDY; BILIRUBIN,URINE NEGATIVE (NEGATIVE); COLOR,URINE YELLOW; GLUCOSE, URINE >=500 mg/dL (NEGATIVE); KETONES,URINE TRACE mg/dL (NEGATIVE); LEUKOCYTE ESTERASE,URINE NEGATIVE (NEGATIVE); NITRITE,URINE NEGATIVE (NEGATIVE); PROTEIN,URINE 100 mg/dL (NEGATIVE); URINE SPECIFIC GRAVITY 1.015; UROBILINOGEN,URINE NEGATIVE mg/dL (<2.0)
[2019-10-27 11:33] LABS: URINE AMPHETAMINES SCREEN NEGATIVE; URINE BARBITURATES SCREEN NEGATIVE; URINE BENZODIAZEPINES SCREEN NEGATIVE; URINE COCAINE SCREEN NEGATIVE; URINE METHADONE SCREEN NEGATIVE; URINE PHENCYCLIDINE SCREEN NEGATIVE
[2019-10-27 11:34] LABS: URINE MARIJUANA (THC) SCREEN UNCONFIRMED POSITIVE
[2019-10-27] MEDS ORDERED: HYDROMORPHONE HCL INJ/PF 2 MG/ML AMPULE IV ONE ×2 (12:00→14:21)
[2019-10-27 12:01] LABS: ABSOLUTE BASOPHILS # (AUTO) 0.1 10^3/uL (0.0-0.2); ABSOLUTE EOSINOPHILS # (AUTO) 0.1 10^3/uL (0.0-0.6); ABSOLUTE LYMPHOCYTES (AUTO) 3.2 10^3/uL (0.5-4.7); ABSOLUTE MONOCYTES (AUTO) 0.8 10^3/uL (0.1-1.4); ABSOLUTE NEUT (AUTO) 5.7 10^3/uL (1.7-8.2); BASOPHILS % (AUTO) 0.6 % (0-2); EOSINOPHILS % (AUTO) 1.4 % (0-6); HEMATOCRIT 29.3 % (36.0-47.0); HEMOGLOBIN 10.1 g/dL (12.0-15.5); LYMPHOCYTES % (AUTO) 32.3 % (13-45); MEAN CORPUSCULAR HEMOGLOBIN 29.1 pg (27.0-33.4); MEAN CORPUSCULAR HGB CONC 34.5 g/dL (32.0-36.0); MEAN CORPUSCULAR VOLUME 84 fl (80-97); MONOCYTES % (AUTO) 8.5 % (3-13); PLATELET COUNT 343 10^3/uL (150-450); RED BLOOD COUNT 3.47 10^6/uL (3.72-5.28); RED CELL DISTRIBUTION WIDTH 15.6 % (11.5-14.0); SEGMENTED NEUTROPHILS % (AUTO) 57.2 % (42-78); TOTAL CELLS COUNTED % (AUTO) 100 %
--- NOTE | 2019-10-27 12:12 | ER Document Report ---
ED GI/ - General Chief Complaint: Abdominal Pain Stated Complaint: ABDOMINAL PAIN Time Seen by Provider: 10/27/19 10:30 Primary Care Provider: RONALD BARKER FNP-C [Primary Care Provider] - Follow up as needed Mode of Arrival: Wheelchair Notes: HPI: 39-year-old female with past medical history as recorded including a long history of chronic pancreatitis with Port-A-Cath in place who presents today with 2 days of epigastric discomfort. She states it is cramping in quality, no radiation, constant, no aggravating relieving factors. Patient states it feels very similar to her previous pain. 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 She denies any dysuria or flank pain. No history of kidney stones. ROS: See HPI All other review of systems reviewed and otherwise negative Reviewed vital signs and nursing note as charted by RN. PHYSICAL EXAM: CONSTITUTIONAL: Alert and oriented and responds appropriately to questions. Appears to be in pain HEAD: Normocephalic; atraumatic EYES:S clerae non-icteric ENT: Normal nose; no rhinorrhea; moist mucous membranes; pharynx without lesions noted NECK: Supple without meningismus; non-tender; no cervical lymphadenopathy, no masses CARD: Regular rate and rhythm; no murmurs; symmetric distal pulses RESP: Normal chest excursion without splinting or tachypnea; breath sounds clear and equal bilaterally ABD/GI: Normal bowel sounds; non-distended; soft, tender to palpation of the epigastric region without palpable masses, rebound or guarding BACK: The back appears normal and is non-tender to palpation EXT: Normal ROM in all joints; non-tender to palpation; no edema SKIN: No acute lesions noted NEURO: CN 2-12 intact; 5/5 bilateral upper and lower extremity strength with sensation intact to light touch PSYCH: The patient's mood and manner are appropriate. Grooming and personal hygiene are appropriate. TRAVEL OUTSIDE OF THE [place] IN LAST 30 DAYS: No - Related Data Allergies/Adverse Reactions: hydrocodone [From [place]] Allergy (Severe, Verified 10/27/19 10:34) ? morphine Allergy (Severe, Verified 10/27/19 10:34) ? Past Medical History - Social History Smoking Status: Unknown if Ever Smoked Family History: DM, Hypertension - Past Medical History Cardiac Medical History: Reports: Hx Hypercholesterolemia, Hx Hypertension Denies: Hx Atrial Fibrillation, Hx Congestive Heart Failure, Hx Coronary Artery Disease, Hx DVT, Hx Heart Attack, Hx Peripheral Vascular Disease, Hx Pulmonary Embolism Pulmonary Medical History: Reports: Hx COPD Denies: Hx Asthma, Hx Bronchitis, Hx Pneumonia, Hx Sleep Apnea Neurological Medical History: Reports: Hx Seizures - last 07/27. Denies: Hx Cerebrovascular Accident Endocrine Medical History: Reports: Hx Diabetes Mellitus Type 1, Hx Diabetes Mellitus Type 2. Denies: Hx Hyperthyroidism, Hx Hypothyroidism Renal/ Medical History: Reports: Hx Renal Insufficiency GI Medical History: Reports: Hx Gastroesophageal Reflux Disease, Hx Pancreatitis - Chronic Musculoskeletal Medical History: Denies Hx Arthritis, Reports Hx Musculoskeletal Trauma Skin Medical History: Psychiatric Medical History: Reports: Hx Anxiety Denies: Hx Depression Infectious Medical History: Past Surgical History: Reports: Hx Section - x3, Hx Hysterectomy - partial, Other - Recent Port-A-Cath placement - Immunizations Immunizations up to date: Yes Hx Diphtheria, Pertussis, Tetanus Vaccination: Yes Physical Exam - Vital signs Vitals: Temp Pulse Resp BP Pulse Ox 98.5 F 98 20 157/97 H 97 10/27/19 10:29 10/27/19 10:29 10/27/19 10:29 10/27/19 10:29 10/27/19 10:29 Course - Re-evaluation Re-evalutation: 10/27/19 12:12 Given the history with the chronic pancreatitis, with pain to the similar location, we will obtain basic labs and a CT scan of the abdomen and pelvis. We will treat the pain medications and reassess. I would like to assess for the possibility of pancreatic pseudocyst or necrosis. 10/27/19 14:21 Labs as recorded. No vomiting here. Patient requires more pain medications. Patient has an elevated baseline creatinine. Normal lipase. No obvious urinary tract infection. We will perform a CT scan without contrast per recommendation by radiology. 10/27/19 16:34 Labs and imaging as recorded. Patient is sleeping when I arrived. Vital signs are stable. I will provide the patient a short course of pain medications as the patient awaits follow-up with the pain management clinic that she states she has an appointment with. - Vital Signs Vital signs: Temp Pulse Resp BP Pulse Ox 98.5 F 98 11 L 159/109 H 100 10/27/19 10:29 10/27/19 10:29 10/27/19 14:01 10/27/19 14:01 10/27/19 14:01 - Laboratory Result Diagrams: 10/27/19 11:30 10/27/19 11:30 Laboratory results interpreted by me: 10/27/19 10/27/19 10/27/19 10:43 11:30 11:30 RBC 3.47 L Hgb 10.1 L Hct 29.3 L RDW 15.6 H Chloride 110 H BUN 21 H Creatinine 2.09 H Est GFR ( Amer) 32 L Est GFR (MDRD) Non-Af 26 L Glucose 40 L* POC Glucose Alkaline Phosphatase 132 H Urine Protein 100 H Urine Glucose (UA) >=500 H Urine Ketones TRACE H Urine Blood SMALL H 10/27/19 10/27/19 12:33 13:18 RBC Hgb Hct RDW Chloride BUN Creatinine Est GFR ( Amer) Est GFR (MDRD) Non-Af Glucose POC Glucose 65 L 63 L Alkaline Phosphatase Urine Protein Urine Glucose (UA) Urine Ketones Urine Blood Discharge - Discharge Clinical Impression: Chronic pancreatitis Qualifiers: Pancreatitis type: unspecified pancreatitis type Qualified Code(s): K86.1 - Other chronic pancreatitis Condition: Good Disposition: HOME, SELF-CARE Additional Instructions: Come back immediately for any increased pain, change in location or quality of pain, fevers or vomiting, or any other acute problems. Please make sure that y ou follow-up with the primary care physician and painter maintenance as scheduled. Prescriptions: Oxycodone HCl 5 mg PO Q6H #12 mg Referrals: RONALD BARKER FNP-C [Primary Care Provider] - Follow up as needed
[2019-10-27 12:24] LABS: ALKALINE PHOSPHATASE 132 U/L (38-126); ANION GAP 6 (5-19); ASPARTATE AMINO TRANSFERASE 22 U/L (14-36); BILIRUBIN,DIRECT 0.3 mg/dL (0.0-0.4); BILIRUBIN,TOTAL 0.4 mg/dL (0.2-1.3); BLOOD UREA NITROGEN 21 mg/dL (7-20); CALCIUM 9.4 mg/dL (8.4-10.2); CARBON DIOXIDE 25 mmol/L (22-30); CHLORIDE 110 mmol/L (98-107); POTASSIUM 3.6 mmol/L (3.6-5.0); TOTAL PROTEIN 6.9 g/dL (6.3-8.2)
[2019-10-27 12:31] LABS: GLUCOSE 40 mg/dL (75-110)
[2019-10-27] MEDS ORDERED: DEXTROSE 50%-WATER 25 GM/50 ML DISP.SYRIN IV ONE ×2 (12:32→12:33)
--- NOTE | 2019-10-27 16:05 | RADIOLOGY REPORT (SQ) ---
EXAM DESCRIPTION: CT ABD/PELVIS NO ORAL OR IV IMAGES COMPLETED DATE/TIME: 10/27/2019 3:36 pm REASON FOR STUDY: 14; mid abdominal pain history of chronic pancreat COMPARISON: CT abdomen pelvis 09/15/2019 TECHNIQUE: CT scan of the abdomen and pelvis performed without intravenous or oral contrast. Images reviewed with lung, soft tissue, and bone windows. Reconstructed coronal and sagittal MPR images revi ewed. All images stored on PACS. All CT scanners at this facility use dose modulation, iterative reconstruction, and/or weight based d osing when appropriate to reduce radiation dose to as low as reasonably achievable (ALARA). [facility]: Dose Right [facility]: CareDose [facility]: Dose Right [facility]: Teradose 4D [facility]: On The Flea RADIATION DOSE: CT Rad equipment meets quality standard of care and radiation dose reduction techniq ues were employed. CTDIvol: 4.8 mGy. DLP: 245 mGy-cm.mGy. LIMITATIONS: None. FINDINGS: LOWER CHEST: No significant findings. No nodules or infiltrates. NON-CONTRASTED LIVER, SPLEEN, ADRENALS: Evaluation limited by lack of IV contrast. No identified sign ificant masses. PANCREAS: Again seen are diffuse coarse calcifications throughout the pancreatic parenchyma. No defi nite peripancreatic inflammatory stranding or fluid collection. GALLBLADDER: No identified stones by CT criteria. No inflammatory changes to suggest cholecystitis. RIGHT KIDNEY AND URETER: Normal in size and contour. No calcifications. LEFT KIDNEY AND URETER: Normal in size and contour. No calcifications. AORTA AND RETROPERITONEUM: Mild atherosclerosis. BOWEL AND PERITONEAL CAVITY: No obvious masses or inflammatory changes. No free fluid. APPENDIX: Normal. PELVIS, BLADDER, AND ABDOMINAL WALL:No abnormal masses. No free fluid. Bladder normal. BONES: No significant findings. OTHER: No other significant finding. IMPRESSION: Similar findings compatible with chronic pancreatitis without acute inflammatory changes to suggest acute pancreatitis. TECHNICAL DOCUMENTATION: JOB ID: [id number] Quality ID # [id number]: Final reports with documentation of one or more dose reduction techniques (e.g., Au tomated exposure control, adjustment of the mA and/or kV according to patient size, use of iterative reconstruction technique) 2010 [employer]- All Rights Reserved Reading location - IP/workstation name: [email or web address]
[2019-10-27 16:53] VITALS: BP 160/112
== END 2019-10-27 16:54 | disposition home or self-care (01) ==
LOC: ER 10:22
DX: K86.1 Other chronic pancreatitis (principal); R10.816 Epigastric abdominal tenderness; I10 Essential (primary) hypertension; J44.9 Chronic obstructive pulmonary disease, unspecified; E11.9 Type 2 diabetes mellitus without complications; Z88.6 Allergy status to analgesic agent; Z88.5 Allergy status to narcotic agent
CPT/HCPCS: 99285; 96374; 96375; 36415; 82962; 83690; 84703; 85025; 80053; 81001; 80307; 74176; J1170; J1642

== ENCOUNTER 2019-11-09 03:16 | Emergency (ER) | payer MEDICAID ==
[2019-11-09] MEDS ORDERED: ONDANSETRON HCL INJ/PF 4 MG/2 ML SDV IV ONE (04:01)
[2019-11-09] MEDS ORDERED: RINGERS SOLUTION,LACTATED 2,000 ML IV ONE (04:01)
[2019-11-09 04:28] LABS: ABSOLUTE BASOPHILS # (AUTO) 0.1 10^3/uL (0.0-0.2); ABSOLUTE EOSINOPHILS # (AUTO) 0.1 10^3/uL (0.0-0.6); ABSOLUTE LYMPHOCYTES (AUTO) 2.5 10^3/uL (0.5-4.7); ABSOLUTE MONOCYTES (AUTO) 0.5 10^3/uL (0.1-1.4); ABSOLUTE NEUT (AUTO) 7.3 10^3/uL (1.7-8.2); BASOPHILS % (AUTO) 0.9 % (0-2); EOSINOPHILS % (AUTO) 1.3 % (0-6); HEMOGLOBIN 10.4 g/dL (12.0-15.5); LYMPHOCYTES % (AUTO) 23.7 % (13-45); MEAN CORPUSCULAR HEMOGLOBIN 28.4 pg (27.0-33.4); MEAN CORPUSCULAR HGB CONC 32.6 g/dL (32.0-36.0); MEAN CORPUSCULAR VOLUME 87 fl (80-97); PLATELET COUNT 310 10^3/uL (150-450); RED BLOOD COUNT 3.67 10^6/uL (3.72-5.28); RED CELL DISTRIBUTION WIDTH 16.1 % (11.5-14.0); SEGMENTED NEUTROPHILS % (AUTO) 69.1 % (42-78); TOTAL CELLS COUNTED % (AUTO) 100 %; WHITE BLOOD COUNT 10.6 10^3/uL (4.0-10.5)
[2019-11-09 04:41] LABS: ALKALINE PHOSPHATASE 148 U/L (38-126); ANION GAP 14 (5-19); ASPARTATE AMINO TRANSFERASE 29 U/L (14-36); BILIRUBIN,DIRECT 0.4 mg/dL (0.0-0.4); BILIRUBIN,TOTAL 0.6 mg/dL (0.2-1.3); BLOOD UREA NITROGEN 28 mg/dL (7-20); CALCIUM 9.4 mg/dL (8.4-10.2); CARBON DIOXIDE 20 mmol/L (22-30); CHLORIDE 100 mmol/L (98-107); POTASSIUM 4.5 mmol/L (3.6-5.0); TOTAL PROTEIN 6.6 g/dL (6.3-8.2)
[2019-11-09 04:49] LABS: GLUCOSE 454 mg/dL (75-110)
[2019-11-09] MEDS ORDERED: KETOROLAC TROMETHAMINE INJ/PF 30 MG/1 ML SDV IV ONE (04:54)
[2019-11-09 05:08] LABS: VENOUS BLOOD BASE EXCESS -5.3 mmol/L; VENOUS BLOOD HCO3 21.3 mmol/L (20-32); VENOUS BLOOD PCO2 45.7 mmHg (35-63); VENOUS BLOOD PH 7.29 (7.30-7.42)
--- NOTE | 2019-11-09 05:13 | ER Document Report ---
ED GI/ - General TRAVEL OUTSIDE OF THE [place] IN LAST 30 DAYS: No <WILFRED AYALA - Last Filed: 11/09/19 07:50> <ERIBERTO WILLS - Last Filed: 11/09/19 13:11> - General Chief Complaint: Abdominal Pain Stated Complaint: ABDOMINAL PAIN Time Seen by Provider: 11/09/19 04:01 Primary Care Provider: RONALD BARKER FNP-C [Primary Care Provider] - Follow up as needed Notes: Patient is a 39-year-old female, well-known to this emergency department who presents emergency department with upper abdominal pain. Patient has history of pancreatitis, diabetes, and chronic kidney disease. Patient states that she stopped taking her insulin because she was not feeling well. States that at home, her blood sugars would "bottom out." States that she feels nauseous. States that her pain feels just like her normal pancreatitis. (WILFRED AYALA ) - Related Data Allergies/Adverse Reactions: hydrocodone [From [place]] Allergy (Severe, Verified 10/27/19 10:34) ? morphine Allergy (Severe, Verified 10/27/19 10:34) ? Past Medical History - Social History Family History: DM, Hypertension - Past Medical History Cardiac Medical History: Reports: Hx Hypercholesterolemia, Hx Hypertension Denies: Hx Atrial Fibrillation, Hx Congestive Heart Failure, Hx Coronary Artery Disease, Hx DVT, Hx Heart Attack, Hx Peripheral Vascular Disease, Hx Pulmonary Embolism Pulmonary Medical History: Reports: Hx COPD Denies: Hx Asthma, Hx Bronchitis, Hx Pneumonia, Hx Sleep Apnea Neurological Medical History: Reports: Hx Seizures - last 07/27. Denies: Hx Cerebrovascular Accident Endocrine Medical History: Reports: Hx Diabetes Mellitus Type 1, Hx Diabetes Mellitus Type 2. Denies: Hx Hyperthyroidism, Hx Hypothyroidism Renal/ Medical History: Reports: Hx Renal Insufficiency GI Medical History: Reports: Hx Gastroesophageal Reflux Disease, Hx Pancreatitis - Chronic Musculoskeletal Medical History: Denies Hx Arthritis, Reports Hx Musculoskeletal Trauma Skin Medical History: Psychiatric Medical History: Reports: Hx Anxiety Denies: Hx Depression Infectious Medical History: Past Surgical History: Reports: Hx Section - x3, Hx Hysterectomy - partial, Other - Recent Port-A-Cath placement - Immunizations Immunizations up to date: Yes Hx Diphtheria, Pertussis, Tetanus Vaccination: Yes <WILFRED AYALA - Last Filed: 11/09/19 07:50> - Social History Smoking Status: Unknown if Ever Smoked Family History: Reviewed & Not Pertinent <NICKIE WILLSANA [place] - Last Filed: 11/09/19 13:11> Review of Systems <WILFRED AYALA - Last Filed: 11/09/19 07:50> - Review of Systems Notes: REVIEW OF SYSTEMS: CONSTITUTIONAL : Denies recent illness. Denies recent unintentional weight loss. Denies fever, chills, or sweats. EENT: Denies eye, ear, throat, or mouth pain, discharge, or symptoms. Denies nasal or sinus congestion. CARDIOVASCULAR: Denies chest pain. RESPIRATORY: Denies shortness of breath, cough, congestion, difficulty breathing, or wheezing. GASTROINTESTINAL: See HPI. GENITOURINARY: Denies difficulty urinating, burning, blood in urine, urgency or frequency. MUSCULOSKELETAL: Denies neck and back pain. Denies joint pain or swelling. SKIN: Denies rash, itchiness, or lesions HEMATOLOGIC : Denies easy bruising or bleeding. LYMPHATIC: Denies swollen, painful, enlarged glands. NEUROLOGICAL: Denies no numbness or tingling denies weakness. Denies headache. Denies altered mental status. Denies alteration in speech. PSYCHIATRIC: Denies stress, anxiety, alteration in sleep patterns, or depression. All other systems reviewed and negative. (WILFRED AYALA) Physical Exam <WILFRED AYALA - Last Filed: 11/09/19 07:50> - Vital signs Vitals: Pulse Ox 100 11/09/19 03:48 - Notes Notes: PHYSICAL EXAMINATION: GENERAL: Appears well, healthy, well-nourished, no acute distress. HEAD: Normocephalic, atraumatic. EYES: PERRL, conjunctiva normal, all extraocular movements intact, sclera nonicteric ENT: Moist mucous membranes. NECK: Supple, no noticeable swelling, redness, rash. Normal range of motion. LUNGS: Equal breath sounds bilaterally and clear to auscultation. No wheezes rales or rhonchi. CARDIOVASCULAR: S1-S2, regular rate, regular rhythm. Radial pulses 2+, normal. ABDOMEN: Normoactive bowel sounds. Soft, tender mid upper abdomen, no guarding, no rebound tenderness, and no masses palpated. EXTREMITIES: Normal strength and range of motion, no pitting or edema. No cyanosis. NEUROLOGICAL: Moves all extremities upon command. Strength 5/5 in all extremities. PSYCH: Normal mood, normal affect. SKIN: Warm, dry. No rash, lesions, ulcerations noted. Normal skin turgor. (WILFRED AYALA) Course - Laboratory Result Diagrams: 11/09/19 03:55 11/09/19 03:55 <WILFRED AYALA - Last Filed: 11/09/19 07:50> - Laboratory Result Diagrams: 11/09/19 03:55 11/09/19 10:05 <ERIBERTO WILLS - Last Filed: 11/09/19 13:11> - Re-evaluation Re-evalutation: 11/09/19 06:30 Hematology shows a leukocytosis of 10,006. There is CO2 is 20. Blood glucose was 454. We rechecked and her blood glucose was at 474. Patient received 10 units of IV insulin. Her lipase is elevated at 752. At this time, will reassess the patient. Patient only received 1 L of fluids when her blood sugar was rechecked at 474. She is currently receiving her second liter of IV fluids. 11/09/19 07:[address] Vidales, the hospitalist. At this time, we will give the patient another liter of fluids. We will give her some more insulin. And we will recheck her blood sugar. (WILFRED AYALA) 11/09/19 11:29 Second liter of IV fluids and 8 units of IV insulin given. Repeat BMP performed which shows a glucose of 171. She is safe to discharge home and will be sent home with a prescription for Phenergan PO. Instructed patient to follow-up with primary care for better management of her DM II and chronic pancreatitis. Patient understands and is in agreement with plan. (ERIBERTO WILLS) - Vital Signs Vital signs: Temp Pulse Resp BP Pulse Ox 97.9 F 12 169/98 H 100 11/09/19 11:34 11/09/19 11:34 11/09/19 11:34 11/09/19 11:34 - Laboratory Laboratory results interpreted by me: 11/09/19 11/09/19 11/09/19 03:35 03:55 03:55 WBC 10.6 H RBC 3.67 L Hgb 10.4 L Hct 32.0 L RDW 16.1 H VBG pH Sodium 134.4 L Carbon Dioxide 20 L BUN 28 H Creatinine 1.71 H Est GFR ( Amer) 40 L Est GFR (MDRD) Non-Af 33 L Glucose 454 H* POC Glucose 440 H* Calcium Alkaline Phosphatase 148 H Lipase 752.6 H Urine Protein Urine Glucose (UA) Urine Ketones Urine Blood 11/09/19 11/09/19 11/09/19 04:49 06:12 07:26 WBC RBC Hgb Hct RDW VBG pH 7.29 L Sodium Carbon Dioxide BUN Creatinine Est GFR ( Amer) Est GFR (MDRD) Non-Af Glucose POC Glucose 474 H* Calcium Alkaline Phosphatase Lipase Urine Protein 100 H Urine Glucose (UA) >=500 H Urine Ketones 20 H Urine Blood SMALL H 11/09/19 11/09/19 11/09/19 07:42 10:05 10:09 WBC RBC Hgb Hct RDW VBG pH Sodium 136.2 L Carbon Dioxide BUN 29 H Creatinine 1.59 H Est GFR ( Amer) 44 L Est GFR (MDRD) Non-Af 36 L Glucose 171 H POC Glucose 389 H 192 H Calcium 8.3 L Alkaline Phosphatase Lipase Urine Protein Urine Glucose (UA) Urine Ketones Urine Blood Discharge <LUCYWILFRED M - Last Filed: 11/09/19 07:50> <ERIBERTO WILLS M - Last Filed: 11/09/19 13:11> - Discharge Clinical Impression: Hyperglycemia due to diabetes mellitus Pancreatitis Qualifiers: Chronicity: chronic Pancreatitis type: unspecified pancreatitis type Qualified Code(s): K86.1 - Other chronic pancreatitis Condition: Stable Disposition: HOME, SELF-CARE Additional Instructions: Hyperglycemia (High Blood Sugar) You need to followup urgently with your primary care doctor as your blood sugars were dangerously high today. You did not have any evidence of a dangerous condition associated with these blood sugars at this time. However, it is very important that you get your blood sugars under control. Please take all of your medications exactly as directed. You should avoid foods that are high in carbohydrates and sugary foods. Losing weight will also help to better control your blood sugars. Please return to emergency department immediately if you develop weakness, persistent vomiting, confusion, or any other symptoms that are concerning to you. Pancreatitis You were seen today for chronic pancreatitis. Please avoid alcohol in any quantity in the future as this could cause a recurrence of your pancreatitis. Please keep in mind that pancreatitis can be a very serious condition that can even result in . Managing your diabetes by maintaining safe blood sugar levels is important. Please drink plenty of fluids over the next several days and try to avoid food ingestion until your pain is resolved. Please return to the emergency department immediately if you develop persistent vomiting that prohibits you from taking your medications or keeping fluids down, you develop a fever of greater than 101F, you have worsening pain, you become confused, you become short of breath, or have any other symptoms that are worrisome to you. Please follow-up with your primary care doctor in the next 24-48 hours. Prescriptions: Promethazine HCl [Phenergan 25 mg Tablet] 25 mg PO Q6H PRN #15 tablet PRN Reason: Referrals: RONALD BARKER FNP-C [Primary Care Provider] - Follow up as needed
[2019-11-09] MEDS ORDERED: INSULIN REG, HUMAN 100 UNIT/ML 3 ML VIAL (PYX) IV ONE ×3 (06:15→07:54)
[2019-11-09] MEDS ORDERED: HYDROMORPHONE HCL INJ/PF 2 MG/ML AMPULE IV ONE ×2 (06:21→09:08)
[2019-11-09] MEDS ORDERED: NORMAL SALINE 1000 ML 1,000 ML IV ONE (07:48)
--- NOTE | 2019-11-09 07:55 | EKG REPORT ---
SEVERITY:- ABNORMAL ECG - SINUS RHYTHM PROBABLE LEFT ATRIAL ABNORMALITY ABNORMAL Q SUGGESTS ANTERIOR INFARCT BORDERLINE PROLONGED QT INTERVAL : Confirmed by: Alvaro Lema MD 09-Nov-2019 07:54:53
[2019-11-09 08:13] LABS: APPEARANCE,URINE SLIGHTLY-CLOUDY; BILIRUBIN,URINE NEGATIVE (NEGATIVE); COLOR,URINE YELLOW; GLUCOSE, URINE >=500 mg/dL (NEGATIVE); KETONES,URINE 20 mg/dL (NEGATIVE); LEUKOCYTE ESTERASE,URINE NEGATIVE (NEGATIVE); NITRITE,URINE NEGATIVE (NEGATIVE); PROTEIN,URINE 100 mg/dL (NEGATIVE); URINE SPECIFIC GRAVITY 1.017; UROBILINOGEN,URINE NEGATIVE mg/dL (<2.0)
[2019-11-09 11:12] LABS: ANION GAP 6 (5-19); BLOOD UREA NITROGEN 29 mg/dL (7-20); CALCIUM 8.3 mg/dL (8.4-10.2); CARBON DIOXIDE 24 mmol/L (22-30); CHLORIDE 106 mmol/L (98-107); GLUCOSE 171 mg/dL (75-110); POTASSIUM 3.8 mmol/L (3.6-5.0)
[2019-11-09 11:38] VITALS: BP 169/98
== END 2019-11-09 11:51 | disposition home or self-care (01) ==
LOC: ER 03:16
DX: K86.1 Other chronic pancreatitis (principal); E11.65 Type 2 diabetes mellitus with hyperglycemia; T38.3X6A Underdosing of insulin and oral hypoglycemic [antidiabetic] drugs, initial encounter; Z91.128 Patient's intentional underdosing of medication regimen for other reason; Z91.14 Patient's other noncompliance with medication regimen; R11.0 Nausea; R10.10 Upper abdominal pain, unspecified; I10 Essential (primary) hypertension; J44.9 Chronic obstructive pulmonary disease, unspecified; Z88.6 Allergy status to analgesic agent; Z88.5 Allergy status to narcotic agent
CPT/HCPCS: 93005; 36591; 99284; 96361; 96374; 96375; 36415; 82962; 83690; 85025; 81025; 80053; 81001; 82803; 93010; J1885; J1170; J1815; J2405; J7030; J7120; J1642

== ENCOUNTER 2019-11-10 02:34 | Emergency (ER) | payer MEDICAID ==
[2019-11-10 02:59] VITALS: BP 173/114
[2019-11-10] MEDS ORDERED: NORMAL SALINE 1000 ML 1,000 ML IV ONE (04:22)
--- NOTE | 2019-11-10 04:23 | ER Document Report ---
ED GI/ - General Chief Complaint: Abdominal Pain Stated Complaint: ABDOMINAL PAIN Time Seen by Provider: 11/10/19 04:07 Primary Care Provider: RONALD BARKER FNP-C [Primary Care Provider] - Follow up as needed Notes: Patient is a 39-year-old female, well-known to this emergency department who presents emergency department with a chief complaint of mid upper epigastric pain. Patient was seen here yesterday. She had a complete work-up her pain and her blood sugars were under control after giving her fluids and Dilaudid. Patient repeatedly comes to the emergency department to get treated for her chronic pancreatitis. Patient states that she has been vomiting even after taking Phenergan at home. Patient states that she woke up vomiting. TRAVEL OUTSIDE OF THE [place] IN LAST 30 DAYS: No - Related Data Allergies/Adverse Reactions: hydrocodone [From [place]] Allergy (Severe, Verified 10/27/19 10:34) ? morphine Allergy (Severe, Verified 10/27/19 10:34) ? Home Medications: Lantus, lisinopril, Novalog, Metoprolol, Amplodipine Past Medical History - Social History Smoking Status: Current Every Day Smoker Family History: Reviewed & Not Pertinent Patient has homicidal ideation: No - Past Medical History Cardiac Medical History: Reports: Hx Hypercholesterolemia, Hx Hypertension Denies: Hx Atrial Fibrillation, Hx Congestive Heart Failure, Hx Coronary [place] Disease, Hx DVT, Hx Heart Attack, Hx Peripheral Vascular Disease, Hx Pulmonary Embolism Pulmonary Medical History: Reports: Hx COPD Denies: Hx Asthma, Hx Bronchitis, Hx Pneumonia, Hx Sleep Apnea Neurological Medical History: Reports: Hx Seizures - last 07/27. Denies: Hx Cerebrovascular Accident Endocrine Medical History: Reports: Hx Diabetes Mellitus Type 1, Hx Diabetes Mellitus Type 2. Denies: Hx Hyperthyroidism, Hx Hypothyroidism Renal/ Medical History: Reports: Hx Renal Insufficiency GI Medical History: Reports: Hx Gastroesophageal Reflux Disease, Hx Pancreatitis - Chronic Musculoskeletal Medical History: Denies Hx Arthritis, Reports Hx Musculoskeletal Trauma Skin Medical History: Psychiatric Medical History: Reports: Hx Anxiety Denies: Hx Depression Infectious Medical History: Past Surgical History: Reports: Hx Section - x3, Hx Hysterectomy - partial, Other - Recent Port-A-Cath placement - Immunizations Immunizations up to date: Yes Hx Diphtheria, Pertussis, Tetanus Vaccination: Yes Review of Systems - Review of Systems Notes: REVIEW OF SYSTEMS: CONSTITUTIONAL : Denies recent illness. Denies recent unintentional weight loss. Denies fever, chills, or sweats. EENT: Denies eye, ear, throat, or mouth pain, discharge, or symptoms. Denies nasal or sinus congestion. CARDIOVASCULAR: Denies chest pain. RESPIRATORY: Denies shortness of breath, cough, congestion, difficulty breathing, or wheezing. GASTROINTESTINAL: See HPI. GENITOURINARY: Denies difficulty urinating, burning, blood in urine, urgency or frequency. MUSCULOSKELETAL: Denies neck and back pain. Denies joint pain or swelling. SKIN: Denies rash, itchiness, or lesions HEMATOLOGIC : Denies easy bruising or bleeding. LYMPHATIC: Denies swollen, painful, enlarged glands. NEUROLOGICAL: Denies no numbness or tingling denies weakness. Denies headache. Denies altered mental status. Denies alteration in speech. PSYCHIATRIC: Denies stress, anxiety, alteration in sleep patterns, or depression. All other systems reviewed and negative. Physical Exam - Vital signs Vitals: Temp Pulse Resp BP Pulse Ox 98.5 F 97 20 173/114 H 97 11/10/19 02:58 11/10/19 02:58 11/10/19 02:58 11/10/19 02:58 11/10/19 02:58 - Notes Notes: PHYSICAL EXAMINATION: GENERAL: Appears well, healthy, well-nourished, no acute distress. HEAD: Normocephalic, atraumatic. EYES: PERRL, conjunctiva normal, all extraocular movements intact, sclera nonicteric ENT: Moist mucous membranes. NECK: Supple, no noticeable swelling, redness, rash. Normal range of motion. LUNGS: Equal breath sounds bilaterally and clear to auscultation. No wheezes rales or rhonchi. CARDIOVASCULAR: S1-S2, regular rate, regular rhythm. Radial pulses 2+, normal. ABDOMEN: Normoactive bowel sounds. Soft, tender mid upper abdomen, and no masses palpated. EXTREMITIES: Normal strength and range of motion, no pitting or edema. No cyanosis. NEUROLOGICAL: Moves all extremities upon command. Strength 5/5 in all extremities. PSYCH: Normal mood, normal affect. SKIN: Warm, dry. No rash, lesions, ulcerations noted. Normal skin turgor. Course - Re-evaluation Re-evalutation: 11/10/19 04:30 I offered to do full work-up on the patient. Offered to her to have labs drawn and give IV fluids and manage her hyper glycemia if needed. She started crying and was asking, "what about my pain?" I told her that I do not mind giving her a dose of Toradol here in the emergency department to help with her chronic pancreatitis, but due to her having Dilaudid multiple times here in the emergency department for her chronic pancreatitis that she has had for years is not appropriate. She does have an appointment with pain management on the of this month. Orders placed. 11/10/19 04:45 Unfortunately, the patient ended up eloping without having her labs drawn. - Vital Signs Vital signs: Temp Pulse Resp BP Pulse Ox 98.5 F 97 20 173/114 H 97 11/10/19 02:58 11/10/19 02:58 11/10/19 02:58 11/10/19 02:58 11/10/19 02:58 Discharge - Discharge Clinical Impression: Abdominal pain Qualifiers: Abdominal location: epigastric Qualified Code(s): R10.13 - Epigastric pain Disposition: ELOPED Referrals: RONALD BARKER FNP-C [Primary Care Provider] - Follow up as needed
== END 2019-11-10 05:14 | disposition left against medical advice (07) ==
LOC: ER 02:34
DX: K86.1 Other chronic pancreatitis (principal); R10.13 Epigastric pain; R11.10 Vomiting, unspecified; I10 Essential (primary) hypertension; J44.9 Chronic obstructive pulmonary disease, unspecified; F17.200 Nicotine dependence, unspecified, uncomplicated; E11.9 Type 2 diabetes mellitus without complications; Z79.4 Long term (current) use of insulin; Z79.899 Other long term (current) drug therapy; Z90.711 Acquired absence of uterus with remaining cervical stump; Z53.29 Procedure and treatment not carried out because of patient's decision for other reasons
CPT/HCPCS: 99281

== ENCOUNTER 2019-11-10 22:32 | Emergency (ER) | payer MEDICAID ==
[2019-11-10] MEDS ORDERED: METOCLOPRAMIDE HCL INJ/PF 10 MG/2 ML SDV IV ONE (23:18)
[2019-11-10] MEDS ORDERED: RINGERS SOLUTION,LACTATED 1,000 ML IV ONE (23:18)
--- NOTE | 2019-11-10 23:18 | ER Document Report ---
ED Medical Screen (RME) - General Chief Complaint: Abdominal Pain Stated Complaint: ABDOMINAL PAIN Time Seen by Provider: 11/10/19 23:12 Primary Care Provider: RONALD BARKER FNP-C [Primary Care Provider] - Follow up as needed Mode of Arrival: Wheelchair Information source: Patient Notes: HPI; 39-year-old female with chronic pancreatitis who is been to the emergency room multiple times for her chronic pancreatitis presents emergency room tonight via EMS complaining of persistent ongoing abdominal pain for the past 3 days. Patient was seen here twice yesterday. She states the pain never goes away. Saw her primary care physician 2 weeks ago. States she has a follow-up appointment with them on Tuesday. Is not currently taking anything for pain. States she does not have any Tylenol or Motrin at home and has no one to get it for her. Also complains of nausea with vomiting. States she has been taking her Phenergan without relief of her nausea. PE: Alert and oriented x3. Moderate stress noted. Lungs: Clear to auscultation without rales, rhonchi, wheezes. Heart: Regular rate rhythm without murmurs, rubs, gallops. Unable to do full exam in triage. I have greeted and performed a rapid initial assessment of this patient. A comprehensive ED assessment and evaluation of the patient, analysis of test results and completion of the medical decision making process will be conducted by additional ED providers. I have specifically instructed the patient or family members with the patient to immediately return to any nursing staff should anything change in the patient's condition or with their chief complaint. TRAVEL OUTSIDE OF THE [place] IN LAST 30 DAYS: No - Related Data Allergies/Adverse Reactions: hydrocodone [From [place]] Allergy (Severe, Verified 10/27/19 10:34) ? morphine Allergy (Severe, Verified 10/27/19 10:34) ? Past Medical History - Social History Family history: None - Past Medical History Cardiac Medical History: Reports: Hx Hypercholesterolemia, Hx Hypertension Denies: Hx Atrial Fibrillation, Hx Congestive Heart Failure, Hx Coronary Artery Disease, Hx DVT, Hx Heart Attack, Hx Peripheral Vascular Disease, Hx Pulmonary Embolism Pulmonary Medical History: Reports: Hx COPD Denies: Hx Asthma, Hx Bronchitis, Hx Pneumonia, Hx Sleep Apnea Neurological Medical History: Reports: Hx Seizures - last 07/27. Denies: Hx Cerebrovascular Accident Endocrine Medical History: Reports: Hx Diabetes Mellitus Type 1, Hx Diabetes Mellitus Type 2. Denies: Hx Hyperthyroidism, Hx Hypothyroidism Renal/ Medical History: Reports: Hx Renal Insufficiency GI Medical History: Reports: Hx Gastroesophageal Reflux Disease, Hx Pancreatitis - Chronic Musculoskeltal Medical History: Denies Hx Arthritis, Reports Hx Musculoskeletal Trauma Skin Medical History: Psychiatric Medical History: Reports: Hx Anxiety Denies: Hx Depression Infectious Medical History: Past Surgical History: Reports: Hx Section - x3, Hx Hysterectomy - partial, Other - Recent Port-A-Cath placement - Immunizations Immunizations up to date: Yes Hx Diphtheria, Pertussis, Tetanus Vaccination: Yes Physical Exam - Vital signs Vitals: Temp Pulse Resp BP Pulse Ox 97.9 F 92 17 220/112 H 97 11/10/19 22:39 11/10/19 22:39 11/10/19 22:39 11/10/19 22:39 11/10/19 22:39 Course - Vital Signs Vital signs: Temp Pulse Resp BP Pulse Ox 97.9 F 92 17 220/112 H 97 11/10/19 22:39 11/10/19 22:39 11/10/19 22:39 11/10/19 22:39 11/10/19 22:39 Doctor's Discharge - Discharge Referrals: RONALD BARKER FNP-C [Primary Care Provider] - Follow up as needed
[2019-11-11] MEDS ORDERED: METOCLOPRAMIDE HCL ORAL SOLN 10 MG/10 ML UDCUP PO ONE (01:09)
[2019-11-11] MEDS ORDERED: LIDOCAINE 2% VISCOUS SOLN 15 ML UDCUP PO ONE (01:09)
[2019-11-11] MEDS ORDERED: MAG HYDROX/AL HYDROX/SIMETH SUSP 30 ML UDCUP PO ONE (01:09)
[2019-11-11] MEDS ORDERED: METOCLOPRAMIDE HCL INJ/PF 10 MG/2 ML SDV ONE (01:21)
[2019-11-11] MEDS ORDERED: FAMOTIDINE INJ/PF 20 MG/2 ML SDV IV ONE (01:53)
[2019-11-11] MEDS ORDERED: DICYCLOMINE HCL INJ 20 MG/2 ML AMPULE IM ONE ×2 (01:54→06:32)
[2019-11-11 02:01] LABS: ABSOLUTE LYMPHOCYTES (AUTO) 0.8 10^3/uL (0.5-4.7); ABSOLUTE MONOCYTES (AUTO) 0.1 10^3/uL (0.1-1.4); BASOPHILS % (AUTO) 0.3 % (0-2); LYMPHOCYTES % (AUTO) 6.1 % (13-45); MEAN CORPUSCULAR HEMOGLOBIN 28.3 pg (27.0-33.4); MEAN CORPUSCULAR HGB CONC 33.3 g/dL (32.0-36.0); MEAN CORPUSCULAR VOLUME 85 fl (80-97); MONOCYTES % (AUTO) 1.1 % (3-13); PLATELET COUNT 328 10^3/uL (150-450); RED BLOOD COUNT 3.87 10^6/uL (3.72-5.28); RED CELL DISTRIBUTION WIDTH 16.2 % (11.5-14.0); SEGMENTED NEUTROPHILS % (AUTO) 92.5 % (42-78); TOTAL CELLS COUNTED % (AUTO) 100 %
[2019-11-11 02:19] LABS: ALBUMIN 4.2 g/dL (3.5-5.0); ALKALINE PHOSPHATASE 141 U/L (38-126); ANION GAP 16 (5-19); ASPARTATE AMINO TRANSFERASE 25 U/L (14-36); BILIRUBIN,DIRECT 0.4 mg/dL (0.0-0.4); BILIRUBIN,TOTAL 0.6 mg/dL (0.2-1.3); BLOOD UREA NITROGEN 23 mg/dL (7-20); CALCIUM 9.8 mg/dL (8.4-10.2); CARBON DIOXIDE 27 mmol/L (22-30); CHLORIDE 95 mmol/L (98-107); GLUCOSE 325 mg/dL (75-110); POTASSIUM 3.7 mmol/L (3.6-5.0); TOTAL PROTEIN 6.9 g/dL (6.3-8.2)
--- NOTE | 2019-11-11 03:34 | ER Document Report ---
ED GI/ - General Mode of Arrival: Wheelchair TRAVEL OUTSIDE OF THE [place] IN LAST 30 DAYS: No - Related Data Home Medications: Phenergen <WILFRED AYALA - Last Filed: 11/11/19 09:41> <SILVIANORBERTO - Last Filed: 11/11/19 13:21> - General Chief Complaint: Abdominal Pain Stated Complaint: ABDOMINAL PAIN Time Seen by Provider: 11/10/19 23:12 Primary Care Provider: RONALD BARKER FNP-C [Primary Care Provider] - Follow up tomorrow Notes: Patient is a 39-year-old female who presents emergency department with a chief complaint of abdominal pain. This is now the patient's third visit here in the emergency department in the last 3 days. On the first day, she was treated for pancreatitis and was able to go home. Yesterday, the patient was seen and she left because she was not going to get Dilaudid. She now presents with the same symptoms that she had 3 days ago and states that she continues to vomit. Denies any fever. Denies any contact with anybody who has tested positive for COVID- 19. Patient has chronic pancreatitis. She is to follow-up with pain management in regards to her chronic pancreatitis. Patient has a history of diabetes. Patient reports that she is still having bowel movements. She had 1 during the day. States that she is able to eat. (WILFRED AYALA) - Related Data Allergies/Adverse Reactions: hydrocodone [From [facility]ana] Allergy (Severe, Verified 10/27/19 10:34) ? morphine Allergy (Severe, Verified 10/27/19 10:34) ? Past Medical History - General Information source: Patient - Social History Smoking Status: Never Smoker Chew tobacco use (# tins/day): No Frequency of alcohol use: None Drug Abuse: None Family History: Reviewed & Not Pertinent - Past Medical History Cardiac Medical History: Reports: Hx Hypercholesterolemia, Hx Hypertension Denies: Hx Atrial Fibrillation, Hx Congestive Heart Failure, Hx Coronary Artery Disease, Hx DVT, Hx Heart Attack, Hx Peripheral Vascular Disease, Hx Pulmonary Embolism Pulmonary Medical History: Reports: Hx COPD Denies: Hx Asthma, Hx Bronchitis, Hx Pneumonia, Hx Sleep Apnea Neurological Medical History: Reports: Hx Seizures - last 07/27. Denies: Hx Cerebrovascular Accident Endocrine Medical History: Reports: Hx Diabetes Mellitus Type 1, Hx Diabetes Mellitus Type 2. Denies: Hx Hyperthyroidism, Hx Hypothyroidism Renal/ Medical History: Reports: Hx Renal Insufficiency GI Medical History: Reports: Hx Gastroesophageal Reflux Disease, Hx Pancreatitis - Chronic Musculoskeletal Medical History: Denies Hx Arthritis, Reports Hx Musculoskeletal Trauma Skin Medical History: Psychiatric Medical History: Reports: Hx Anxiety Denies: Hx Depression Infectious Medical History: Past Surgical History: Reports: Hx Section - x3, Hx Hysterectomy - partial, Other - Recent Port-A-Cath placement - Immunizations Immunizations up to date: Yes Hx Diphtheria, Pertussis, Tetanus Vaccination: Yes <WILFRED AYALA - Last Filed: 11/11/19 09:41> Review of Systems <WILFRED AYALA - Last Filed: 11/11/19 09:41> - Review of Systems Notes: REVIEW OF SYSTEMS: CONSTITUTIONAL : Denies recent illness. Denies recent unintentional weight loss. Denies fever, chills, or sweats. EENT: Denies eye, ear, throat, or mouth pain, discharge, or symptoms. Denies nasal or sinus congestion. CARDIOVASCULAR: Denies chest pain. RESPIRATORY: Denies shortness of breath, cough, congestion, difficulty breathing, or wheezing. GASTROINTESTINAL: See HPI. GENITOURINARY: Denies difficulty urinating, burning, blood in urine, urgency or frequency. MUSCULOSKELETAL: Denies neck and back pain. Denies joint pain or swelling. SKIN: Denies rash, itchiness, or lesions HEMATOLOGIC : Denies easy bruising or bleeding. LYMPHATIC: Denies swollen, painful, enlarged glands. NEUROLOGICAL: Denies no numbness or tingling denies weakness. Denies headache. Denies altered mental status. Denies alteration in speech. PSYCHIATRIC: Denies stress, anxiety, alteration in sleep patterns, or depression. All other systems reviewed and negative. (WILFRED AYALA) Physical Exam <WILFRED AYALA - Last Filed: 11/11/19 09:41> - Vital signs Vitals: Temp Pulse Resp BP Pulse Ox 97.9 F 92 17 220/112 H 97 11/10/19 22:39 11/10/19 22:39 11/10/19 22:39 11/10/19 22:39 11/10/19 22:39 - Notes Notes: PHYSICAL EXAMINATION: GENERAL: Appears well, healthy, well-nourished, no acute distress. HEAD: Normocephalic, atraumatic. EYES: PERRL, conjunctiva normal, all extraocular movements intact, sclera nonicteric ENT: Moist mucous membranes. NECK: Supple, no noticeable swelling, redness, rash. Normal range of motion. LUNGS: Equal breath sounds bilaterally and clear to auscultation. No wheezes rales or rhonchi. CARDIOVASCULAR: S1-S2, regular rate, regular rhythm. Radial pulses 2+, normal. ABDOMEN: Normoactive bowel sounds. Soft, tender mid upper abdomen. EXTREMITIES: Normal strength and range of motion, no pitting or edema. No cyanosis. NEUROLOGICAL: Moves all extremities upon command. Strength 5/5 in all extremities. PSYCH: Normal mood, normal affect. SKIN: Warm, dry. No rash, lesions, ulcerations noted. Normal skin turgor. (WILFRED AYALA) Course - Laboratory Result Diagrams: 11/11/19 01:51 11/11/19 01:51 <WILFRED AYALA - Last Filed: 11/11/19 09:41> - Laboratory Result Diagrams: 11/11/19 01:51 11/11/19 01:51 <NORBERTO RANDHAWA - Last Filed: 11/11/19 13:21> - Re-evaluation Re-evalutation: 11/11/19 04:27 Hematology shows a leukocytosis of 13,000 with a left shift. I suspect this is due to the patient vomiting. Chemistries show a creatinine of 1.76, which is her normal. Glucose is 325. Will order a liter of IV fluids. Lipase is 500. This is due to your chronic pancreatitis. 11/11/19 06:34 Patient has been asked multiple times to provide urine and she has not. Patient states that she continues to have pain. We will give her another dose of Bentyl. We will also give her insulin and another liter of IV fluids. 11/11/19 08:27 Patient's blood sugar actually went up to 317, but she did not receive her entire liter of IV fluids. Patient finally provided urine. I sat down with the patient and had a lengthy conversation with her in regards to her poor glucose control causing her pancreatitis. Told her that I am concerned for her multiple visits to the emergency department for Dilaudid for pain relief. Told her that I will not give her Dilaudid and will give her a dose of oxycodone here in the emergency department. Will reassess her pain. 11/11/19 09:04 Urinalysis has resulted. Patient has a small amount of blood in her urine. She also has ketones and protein. We gave her IV fluids to help with this. I called Dr. Arroyo, the hospitalist. He will evaluate the patient. 11/11/19 09:33 Report given to Norberto Randhawa NP. She will follow up with Dr. Arroyo in [place] to Hyperglycemia management. (WILFRED AYALA) 11/11/19 11:[address] Arroyo who states that he was delayed upstairs but he will be down to see patient within the next 30 minutes. 11/11/19 13:00 Dr. Arroyo evaluated patient and made medication recommendations, he states that he sent prescriptions to patient's choice of pharmacy. (NORBERTO RANDHAWA) - Vital Signs Vital signs: Temp Pulse Resp BP Pulse Ox 98.9 F 105 H 18 194/114 H 100 11/11/19 08:00 11/11/19 08:00 11/11/19 10:54 11/11/19 10:54 11/11/19 10:54 - Laboratory Laboratory results interpreted by me: 11/11/19 11/11/19 11/11/19 01:35 01:51 01:51 WBC 13.0 H Hgb 11.0 L Hct 33.0 L RDW 16.2 H Lymph % (Auto) 6.1 L [place] % (Auto) 1.1 L Absolute Neuts (auto) 12.0 H Seg Neutrophils % 92.5 H Chloride 95 L BUN 23 H Creatinine 1.76 H Est GFR ( Amer) 39 L Est GFR (MDRD) Non-Af 32 L Glucose 325 H POC Glucose 300 H Alkaline Phosphatase 141 H Lipase 500.1 H Urine Protein Urine Glucose (UA) Urine Ketones Urine Blood 11/11/19 11/11/19 11/11/19 06:05 08:04 08:15 WBC Hgb Hct RDW Lymph % (Auto) [place] % (Auto) Absolute Neuts (auto) Seg Neutrophils % Chloride BUN Creatinine Est GFR ( Amer) Est GFR (MDRD) Non-Af Glucose POC Glucose 276 H 317 H Alkaline Phosphatase Lipase Urine Protein >=500 H Urine Glucose (UA) >=500 H Urine Ketones 20 H Urine Blood SMALL H Discharge <WILFRED AYALA - Last Filed: 11/11/19 09:41> <NORBERTO RANDHAWA - Last Filed: 11/11/19 13:21> - Discharge Clinical Impression: Chronic pain syndrome Chronic pancreatitis Qualifiers: Pancreatitis type: unspecified pancreatitis type Qualified Code(s): K86.1 - Other chronic pancreatitis Abdominal pain Qualifiers: Abdominal location: unspecified location Qualified Code(s): R10.9 - Unspecified abdominal pain Nausea & vomiting Qualifiers: Vomiting type: unspecified Vomiting Intractability: non-intractable Qualified Code(s): R11.2 - Nausea with vomiting, unspecified Uncontrolled diabetes mellitus Qualifiers: Diabetes mellitus type: other specified (including JERRELL) Glycemic state: with hyperglycemia Qualified Code(s): E13.65 - Other specified diabetes mellitus with hyperglycemia Condition: Stable Disposition: HOME, SELF-CARE Instructions: Abdominal Pain ([facility]), Antinausea Medication ([facility]), Intravenous (IV) Fluids ([facility]) Additional Instructions: Pancreatitis Pancreatitis is an inflammation of the pancreas, an organ at the back of your abdomen. The pancreas produces insulin and enzymes that digest your food. Pancreatitis can be caused by gallstones in the bile duct, by alcohol or viruses, or by excess fat or calcium in the blood stream. Occasionally, pancreatitis occurs when a stomach ulcer augustine through into the pancreas. We try to find the cause of pancreatitis, but some tests can't be done until the pancreas heals. The usual symptoms of pancreatitis are pain in the pit of the stomach that goes straight through to the back, vomiting, and low-grade fever. Severe cases require hospital admission, but many patients with mild pancreatitis do well at home. You will probably need medicine for pain and for vomiting. Sometimes we prescribe medicine to decrease stomach acid secretion and to decrease flow of pancreatic juices. Start with a diet of clear liquids (soda pop, juices). When the pain is decreasing, you can add some simple starches (potato, toast, applesauce). Avoid proteins and fats until you are completely painfree. When you're better, your doctor may suggest treatment to prevent future pancreatitis (such as gallbladder removal). Avoid alcohol forever. Get immediate treatment for any future episodes. Contact your doctor at once or return here if you have increasing pain, shortness of breath, general swelling, increasing size of the abdomen, continued vomiting, muscle spasms, or other new symptoms. Prescriptions: Sucralfate [Carafate 1 gm Tablet] 1 gm PO ACHS #120 tablet Insulin Glargine,Hum.rec.anlog [Lantus Insulin 100 Unit/1 ml 10 ml] See Protocol SUBCUT BID #10 ml Insulin Aspart [Novolog Flexpen] 0 units SQ .SLIDINGSCALE #1 unit Famotidine [Pepcid 20 mg Tablet] 20 mg PO BID #60 tablet Ondansetron [Zofran Odt 4 mg Tablet] 1 - 2 tab PO Q4H PRN #20 tab.rapdis PRN Reason: For Nausea/Vomiting Referrals: RONALD BARKER FNP-C [Primary Care Provider] - Follow up tomorrow
[2019-11-11] MEDS ORDERED: PROMETHAZINE HCL INJ 25 MG/1 ML VIAL IV ONE (03:42)
[2019-11-11] MEDS ORDERED: RINGERS SOLUTION,LACTATED 1,000 ML IV ONE (03:42)
[2019-11-11] MEDS ORDERED: INSULIN REG, HUMAN 100 UNIT/ML 3 ML VIAL (PYX) IV ONE (06:26)
[2019-11-11] MEDS ORDERED: NORMAL SALINE 1000 ML 1,000 ML IV ONE (06:27)
[2019-11-11] MEDS ORDERED: METOPROLOL TARTRATE 25 MG TABLET PO ONE (06:39)
[2019-11-11] MEDS ORDERED: AMLODIPINE BESYLATE 10 MG TABLET PO ONE (06:40)
[2019-11-11] MEDS ORDERED: LISINOPRIL 10 MG TABLET PO ONE (06:41)
[2019-11-11] MEDS ORDERED: OXYCODONE HCL IR 5 MG TABLET PO ONE ×2 (08:21→13:19)
[2019-11-11 08:40] LABS: APPEARANCE,URINE CLEAR; BILIRUBIN,URINE NEGATIVE (NEGATIVE); COLOR,URINE STRAW; GLUCOSE, URINE >=500 mg/dL (NEGATIVE); KETONES,URINE 20 mg/dL (NEGATIVE); LEUKOCYTE ESTERASE,URINE NEGATIVE (NEGATIVE); NITRITE,URINE NEGATIVE (NEGATIVE); PROTEIN,URINE >=500 mg/dL (NEGATIVE); URINE SPECIFIC GRAVITY 1.009; UROBILINOGEN,URINE NEGATIVE mg/dL (<2.0)
[2019-11-11] MEDS ORDERED: ONDANSETRON 4 MG TAB.RAPDIS PO ONE (09:29)
[2019-11-11] MEDS ORDERED: LABETALOL HCL INJ 20 MG/4 ML DISP.SYRIN IV ONE (10:08)
[2019-11-11 11:01] VITALS: BP 194/114
--- NOTE | 2019-11-11 12:55 | Progress Note ---
Provider Note Provider Note: Called to evaluate patient's diabetic medication regimen by ER prior to discharge home from ER. Blood glucoses were in upper 200s-low 300s. Patient received 10 units of insulin without much effect on her blood glucose. She was discharged home in September by Dr. Pate, who had good results controlling her blood glucose with a combination of Lantus (10 units in AM, 14 units at bedtime) and Novolog (sliding scale, scale was provided at discharge in September 2019). She has a history of noncompliance, and has often gone for extensive periods without her medications. If her diet is diabetic-compliant and she takes her medications as prescribed, she should achieve good results similar to her last inpatient stay with the above described regimen given by Dr. Pate. No refills were issued at that time, because the plan was for her to follow up with her PCP to continue managing her diabetes. I have sent refills of her insulins (1-month supply) to her pharmacy, but it is imperative for proper management of her diabetes that she follow up with her PCP in a timely fashion, approximately 1-2 weeks. These refills will give her a 30-day window to do so.
== END 2019-11-11 14:45 | disposition home or self-care (01) ==
LOC: ER 22:32
DX: K86.1 Other chronic pancreatitis (principal); E11.65 Type 2 diabetes mellitus with hyperglycemia; G89.4 Chronic pain syndrome; R11.2 Nausea with vomiting, unspecified; R31.9 Hematuria, unspecified; D72.829 Elevated white blood cell count, unspecified; I10 Essential (primary) hypertension; J44.9 Chronic obstructive pulmonary disease, unspecified; Z87.19 Personal history of other diseases of the digestive system; Z90.711 Acquired absence of uterus with remaining cervical stump; Z88.5 Allergy status to narcotic agent; Z88.6 Allergy status to analgesic agent
CPT/HCPCS: 36591; 99284; 96372; 96361 ×2; 96374; 96375; 36415; 82962; 83690; 85025; 80053; 81001; J0500; S0119; J3490 ×6; J1815; J2550; J7030; J7120; S0028; J1642

== ENCOUNTER 2019-11-12 03:42 | Emergency (ER) | payer MEDICAID ==
[2019-11-12 05:23] LABS: ABSOLUTE BASOPHILS # (AUTO) 0.1 10^3/uL (0.0-0.2); ABSOLUTE LYMPHOCYTES (AUTO) 1.6 10^3/uL (0.5-4.7); ABSOLUTE MONOCYTES (AUTO) 0.6 10^3/uL (0.1-1.4); ABSOLUTE NEUT (AUTO) 7.6 10^3/uL (1.7-8.2); EOSINOPHILS % (AUTO) 0.5 % (0-6); HEMATOCRIT 30.3 % (36.0-47.0); HEMOGLOBIN 10.3 g/dL (12.0-15.5); LYMPHOCYTES % (AUTO) 15.9 % (13-45); MEAN CORPUSCULAR HEMOGLOBIN 28.8 pg (27.0-33.4); MEAN CORPUSCULAR HGB CONC 34.1 g/dL (32.0-36.0); MEAN CORPUSCULAR VOLUME 85 fl (80-97); MONOCYTES % (AUTO) 5.7 % (3-13); PLATELET COUNT 322 10^3/uL (150-450); RED BLOOD COUNT 3.59 10^6/uL (3.72-5.28); RED CELL DISTRIBUTION WIDTH 15.9 % (11.5-14.0); SEGMENTED NEUTROPHILS % (AUTO) 76.9 % (42-78); TOTAL CELLS COUNTED % (AUTO) 100 %; WHITE BLOOD COUNT 9.8 10^3/uL (4.0-10.5)
[2019-11-12 05:33] LABS: APPEARANCE,URINE SLIGHTLY-CLOUDY; BILIRUBIN,URINE NEGATIVE (NEGATIVE); COLOR,URINE YELLOW; GLUCOSE, URINE >=500 mg/dL (NEGATIVE); KETONES,URINE 20 mg/dL (NEGATIVE); LEUKOCYTE ESTERASE,URINE NEGATIVE (NEGATIVE); NITRITE,URINE NEGATIVE (NEGATIVE); PROTEIN,URINE 100 mg/dL (NEGATIVE); URINE SPECIFIC GRAVITY 1.017; UROBILINOGEN,URINE NEGATIVE mg/dL (<2.0)
[2019-11-12 05:42] LABS: ALKALINE PHOSPHATASE 131 U/L (38-126); ANION GAP 11 (5-19); ASPARTATE AMINO TRANSFERASE 20 U/L (14-36); BILIRUBIN,DIRECT 0.3 mg/dL (0.0-0.4); BILIRUBIN,TOTAL 0.8 mg/dL (0.2-1.3); BLOOD UREA NITROGEN 28 mg/dL (7-20); CALCIUM 9.4 mg/dL (8.4-10.2); CARBON DIOXIDE 24 mmol/L (22-30); CHLORIDE 100 mmol/L (98-107); GLUCOSE 116 mg/dL (75-110); POTASSIUM 3.9 mmol/L (3.6-5.0); TOTAL PROTEIN 6.7 g/dL (6.3-8.2)
[2019-11-12] MEDS ORDERED: FAMOTIDINE INJ/PF 20 MG/2 ML SDV IV ONE (06:08)
--- NOTE | 2019-11-12 06:08 | ER Document Report ---
HPI - HPI Time Seen by Provider: 11/12/19 05:46 Pain Level: 5 Notes: 39-year-old female patient well-known to this emergency department presenting with upper abdominal pain. Patient has been to this emergency department several times over the last few days with the same complaint. She has had multiple full work-ups which showed no acute findings. Patient reports her pain is the same as it always is, she states that she needs IV Dilaudid to help with her pain. She has been having nausea with vomiting, denies any fever, chills or diarrhea. - ROS Systems Reviewed and Negative: Yes All other systems reviewed and negative - GASTROINTESTINAL Gastrointestinal: REPORTS: Abdominal Pain, Patient vomiting - REPRODUCTIVE Reproductive: DENIES: : Past Medical History - General Information source: Patient - Social History Smoking Status: Former Smoker Frequency of alcohol use: None - Former heavy drinker Drug Abuse: None Family History: Reviewed & Not Pertinent - Past Medical History Cardiac Medical History: Reports: Hx Hypercholesterolemia, Hx Hypertension Denies: Hx Atrial Fibrillation, Hx Congestive Heart Failure, Hx Coronary Artery Disease, Hx DVT, Hx Heart Attack, Hx Peripheral Vascular Disease, Hx Pulmonary Embolism Pulmonary Medical History: Reports: Hx COPD Denies: Hx Asthma, Hx Bronchitis, Hx Pneumonia, Hx Sleep Apnea Neurological Medical History: Reports: Hx Seizures. Denies: Hx Cerebrovascular Accident Endocrine Medical History: Reports: Hx Diabetes Mellitus Type 1, Hx Diabetes Mellitus Type 2. Denies: Hx Hyperthyroidism, Hx Hypothyroidism Renal/ Medical History: Reports: Hx Renal Insufficiency GI Medical History: Reports: Hx Gastroesophageal Reflux Disease, Hx Pancreatitis - Chronic Musculoskeletal Medical History: Denies Hx Arthritis, Reports Hx Musculoskeletal Trauma Skin Medical History: Psychiatric Medical History: Reports: Hx Anxiety Denies: Hx Depression Infectious Medical History: Past Surgical History: Reports: Hx Section - x3, Hx Hysterectomy - partial, Other - Recent Port-A-Cath placement - Immunizations Immunizations up to date: Yes Hx Diphtheria, Pertussis, Tetanus Vaccination: Yes Vertical Provider Document - CONSTITUTIONAL Notes: PHYSICAL EXAMINATION: GENERAL: Unkempt, disheveled. HEAD: Atraumatic, normocephalic. EYES: Pupils equal round and reactive to light, extraocular movements intact, conjunctiva are normal. ENT: Nares patent, oropharynx clear without exudates. Moist mucous membranes. NECK: Normal range of motion, supple without lymphadenopathy LUNGS: Breath sounds clear to auscultation bilaterally and equal. No wheezes rales or rhonchi. HEART: Regular rate and rhythm without murmurs ABDOMEN: Soft, nondistended abdomen. Diffuse tenderness throughout. No guarding, no rebound. No masses appreciated. Female : deferred Musculoskeletal: Normal range of motion, no pitting or edema. No cyanosis. NEUROLOGICAL: Cranial nerves grossly intact. Normal speech, normal gait. Normal sensory, motor exams PSYCH: Yelling and moaning in pain SKIN: Warm, Dry, normal turgor, no rashes or lesions noted. - INFECTION CONTROL TRAVEL OUTSIDE OF THE [place] IN LAST 30 DAYS: No Course - Re-evaluation Re-evalutation: Laboratory 11/12/19 11/12/19 11/12/19 04:50 04:50 04:56 WBC 9.8 RBC 3.59 L Hgb 10.3 L Hct 30.3 L MCV 85 MCH 28.8 MCHC 34.1 RDW 15.9 H Plt Count 322 Lymph % (Auto) 15.9 [place] % (Auto) 5.7 Eos % (Auto) 0.5 Baso % (Auto) 1.0 Absolute Neuts (auto) 7.6 Absolute Lymphs (auto) 1.6 Absolute Monos (auto) 0.6 Absolute Eos (auto) 0.0 Absolute Basos (auto) 0.1 Seg Neutrophils % 76.9 Sodium 135.2 L Potassium 3.9 Chloride 100 Carbon Dioxide 24 Anion Gap 11 BUN 28 H Creatinine 1.95 H Est GFR ( Amer) 35 L Est GFR (MDRD) Non-Af 29 L Glucose 116 H Calcium 9.4 Total Bilirubin 0.8 Direct Bilirubin 0.3 Neonat Total Bilirubin Not Reportable Neonat Direct Bilirubin Not Reportable Neonat Indirect Bili Not Reportable AST 20 ALT 21 Alkaline Phosphatase 131 H Total Protein 6.7 Albumin 4.0 Lipase 158.5 Urine Color YELLOW Urine Appearance SLIGHTLY-CLOUDY Urine pH 5.0 Ur Specific [place] 1.017 Urine Protein 100 H Urine Glucose (UA) >=500 H Urine Ketones 20 H Urine Blood SMALL H Urine Nitrite NEGATIVE Urine Bilirubin NEGATIVE Urine Urobilinogen NEGATIVE Ur Leukocyte Esterase NEGATIVE Urine WBC (Auto) 1 Urine RBC (Auto) 1 Squamous Epi Cells Auto 4 Urine Mucus (Auto) RARE Urine Ascorbic Acid NEGATIVE Patient's laboratory work-up today is unremarkable. She is very upset when she finds out that she will be unable to get IV Dilaudid. I told her that it is inappropriate for me to give IV Dilaudid when she has been here multiple times with normal work-ups and she has no acute findings on her lab work today. We will not repeat imaging at this time as I do not feel there is an indication giving recent normal imaging. 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 - Vital Signs Vital signs: Temp Pulse Resp BP Pulse Ox 98.7 F 16 182/94 H 100 11/12/19 03:44 11/12/19 05:31 11/12/19 05:31 11/12/19 05:31 - Laboratory Result Diagrams: 11/12/19 04:50 11/12/19 04:50 Laboratory results interpreted by me: 11/12/19 11/12/19 11/12/19 04:50 04:50 04:56 RBC 3.59 L Hgb 10.3 L Hct 30.3 L RDW 15.9 H Sodium 135.2 L BUN 28 H Creatinine 1.95 H Est GFR ( Amer) 35 L Est GFR (MDRD) Non-Af 29 L Glucose 116 H Alkaline Phosphatase 131 H Urine Protein 100 H Urine Glucose (UA) >=500 H Urine Ketones 20 H Urine Blood SMALL H Discharge - Discharge Clinical Impression: Chronic upper abdominal pain Condition: Stable Disposition: HOME, SELF-CARE Additional Instructions: Please follow-up with gastroenterology regarding her chronic abdominal pain. Return to the emergency department if you develop fever greater than 101. We will treat your symptoms with nausea medications and other types of medications to help your pain, however we are unable to treat chronic pain in the emergency department with narcotics. Prescriptions: Sucralfate [Carafate 1 gm Tablet] 1 gm PO ACHS #120 tablet Famotidine [Pepcid 20 mg Tablet] 20 mg PO BID #20 tablet Promethazine HCl [Phenergan 25 mg Tablet] 25 - 50 mg PO ASDIR PRN #12 tablet PRN Reason: Referrals: SHINE CANTU MD [ACTIVE STAFF] - Follow up as needed
[2019-11-12] MEDS ORDERED: SUCRALFATE 1 GM TABLET PO ONE (06:11)
[2019-11-12] MEDS ORDERED: DICYCLOMINE HCL 20 MG TABLET PO ONE (06:11)
[2019-11-12] MEDS ORDERED: PROMETHAZINE HCL INJ 25 MG/1 ML VIAL IV ONE (06:11)
[2019-11-12 07:12] VITALS: BP 185/114
[2019-11-12] MEDS ORDERED: AMLODIPINE BESYLATE 10 MG TABLET PO ONE (07:17)
[2019-11-12] MEDS ORDERED: LISINOPRIL 10 MG TABLET PO ONE (07:17)
== END 2019-11-12 07:19 | disposition home or self-care (01) ==
LOC: ER 03:42
DX: R10.10 Upper abdominal pain, unspecified (principal); G89.29 Other chronic pain; R11.2 Nausea with vomiting, unspecified; R10.817 Generalized abdominal tenderness; I10 Essential (primary) hypertension; J44.9 Chronic obstructive pulmonary disease, unspecified; E11.9 Type 2 diabetes mellitus without complications; Z90.711 Acquired absence of uterus with remaining cervical stump; Z87.19 Personal history of other diseases of the digestive system; Z87.891 Personal history of nicotine dependence
CPT/HCPCS: 99284; 96374; 96375; 36415; 83690; 85025; 80053; 81001; J3490 ×3; J2550; S0028; J1642

== ENCOUNTER 2019-11-13 20:19 | Emergency (ER) | payer MEDICAID ==
[2019-11-13 21:24] LABS: ABSOLUTE LYMPHOCYTES (AUTO) 2.1 10^3/uL (0.5-4.7); ABSOLUTE MONOCYTES (AUTO) 0.7 10^3/uL (0.1-1.4); ABSOLUTE NEUT (AUTO) 5.5 10^3/uL (1.7-8.2); BASOPHILS % (AUTO) 0.5 % (0-2); EOSINOPHILS % (AUTO) 0.5 % (0-6); HEMATOCRIT 31.8 % (36.0-47.0); LYMPHOCYTES % (AUTO) 24.7 % (13-45); MEAN CORPUSCULAR HEMOGLOBIN 28.9 pg (27.0-33.4); MEAN CORPUSCULAR HGB CONC 34.5 g/dL (32.0-36.0); MEAN CORPUSCULAR VOLUME 84 fl (80-97); MONOCYTES % (AUTO) 8.5 % (3-13); PLATELET COUNT 330 10^3/uL (150-450); RED BLOOD COUNT 3.81 10^6/uL (3.72-5.28); RED CELL DISTRIBUTION WIDTH 15.9 % (11.5-14.0); SEGMENTED NEUTROPHILS % (AUTO) 65.8 % (42-78); TOTAL CELLS COUNTED % (AUTO) 100 %; WHITE BLOOD COUNT 8.4 10^3/uL (4.0-10.5)
[2019-11-13 21:41] LABS: ALBUMIN 3.9 g/dL (3.5-5.0); ALKALINE PHOSPHATASE 124 U/L (38-126); ANION GAP 8 (5-19); ASPARTATE AMINO TRANSFERASE 24 U/L (14-36); BILIRUBIN,DIRECT 0.4 mg/dL (0.0-0.4); BILIRUBIN,TOTAL 0.4 mg/dL (0.2-1.3); BLOOD UREA NITROGEN 22 mg/dL (7-20); CALCIUM 8.9 mg/dL (8.4-10.2); CARBON DIOXIDE 27 mmol/L (22-30); CHLORIDE 100 mmol/L (98-107); GLUCOSE 101 mg/dL (75-110); POTASSIUM 3.1 mmol/L (3.6-5.0); TOTAL PROTEIN 6.7 g/dL (6.3-8.2)
[2019-11-13] MEDS ORDERED: HALOPERIDOL LACTATE INJ 5 MG/1 ML VIAL IM ONE (21:54)
[2019-11-13] MEDS ORDERED: HYDROMORPHONE HCL INJ/PF 2 MG/ML AMPULE IV ONE (21:54)
[2019-11-13] MEDS ORDERED: DIPHENHYDRAMINE HCL 50 MG/ML VIAL IV ONE (21:55)
[2019-11-13] MEDS ORDERED: METOCLOPRAMIDE HCL INJ/PF 10 MG/2 ML SDV IV ONE (21:55)
[2019-11-13] MEDS ORDERED: NORMAL SALINE 1000 ML 1,000 ML IV ONE (21:55)
--- NOTE | 2019-11-13 22:34 | ER Document Report ---
Entered by SARAH KELLY SCRIBE 11/13/19 [id number] Acting as scribe for:AYE MUNOZ DO ED GI/ - General Chief Complaint: Abdominal Pain Stated Complaint: ABDOMINAL PAIN Time Seen by Provider: 11/13/19 21:36 Primary Care Provider: RONALD BARKER FNP-C [Primary Care Provider] - Follow up as needed Information source: Patient Notes: This 39 year old female patient who has been to this department 5 times in the past 5 days for chronic abdominal pain presents tonight for the same. She states her pain is no different from her usual chronic epigastric abdominal and she has had associated nausea with vomiting. Patient is requesting dilaudid for the pain. She reports that she has an appointment with her PCP tomorrow. Patient mentions she has not smoked marijuana in two weeks because she was "told it might be causing her symptoms". TRAVEL OUTSIDE OF THE [place] IN LAST 30 DAYS: No - Related Data Allergies/Adverse Reactions: hydrocodone [From [place]] Allergy (Severe, Verified 10/27/19 10:34) ? morphine Allergy (Severe, Verified 10/27/19 10:34) ? Past Medical History - General Information source: Patient - Social History Smoking Status: Never Smoker Cigarette use (# per day): No Chew tobacco use (# tins/day): No Frequency of alcohol use: None Drug Abuse: None Lives with: Family Family History: Reviewed & Not Pertinent Patient has homicidal ideation: No - Past Medical History Cardiac Medical History: Reports: Hx Hypercholesterolemia, Hx Hypertension Pulmonary Medical History: Reports: Hx COPD Neurological Medical History: Reports: Hx Seizures Endocrine Medical History: Reports: Hx Diabetes Mellitus Type 1 Renal/ Medical History: Reports: Hx Renal Insufficiency GI Medical History: Reports: Hx Gastroesophageal Reflux Disease, Hx Pancreatitis - Chronic Musculoskeletal Medical History: Reports Hx Musculoskeletal Trauma Skin Medical History: Psychiatric Medical History: Reports: Hx Anxiety Infectious Medical History: Past Surgical History: Reports: Hx Section - x3, Hx Hysterectomy - partial, Other - Recent Port-A-Cath placement - Immunizations Immunizations up to date: Yes Hx Diphtheria, Pertussis, Tetanus Vaccination: Yes Review of Systems - Review of Systems Constitutional: No symptoms reported EENT: No symptoms reported Cardiovascular: No symptoms reported Respiratory: No symptoms reported Gastrointestinal: See HPI, Abdominal pain, Nausea, Vomiting Genitourinary: No symptoms reported Female Genitourinary: No symptoms reported Musculoskeletal: No symptoms reported Skin: No symptoms reported Hematologic/Lymphatic: No symptoms reported Neurological/Psychological: No symptoms reported -: Yes All other systems reviewed and negative Physical Exam - Vital signs Vitals: Temp Pulse Resp BP Pulse Ox 98.4 F 108 H 22 H 142/62 H 98 11/13/19 20:27 11/13/19 20:27 11/13/19 20:27 11/13/19 20:27 11/13/19 20:27 - Notes Notes: Physical Exam: General: Alert, tearful, rolling around the bed. HEENT: Normocephalic. Atraumatic. PERRL. Extraocular movements intact. Oropharynx clear. Neck: Supple. Non-tender. Respiratory: No respiratory distress. Clear and equal breath sounds bilaterally. Port in right anterior chest. Cardiovascular: Regular rate and rhythm. Abdominal: Sever epigastric tenderness to palpation, global mild to moderate tenderness to palpation. No distension. Normal Bowel Sounds. Back: No gross abnormalities. Extremities: Moves all four extremities. Upper extremities: Normal inspection. Normal ROM. Lower extremities: Normal inspection. No edema. Normal ROM. Neurological: Normal cognition. AAOx4. Normal speech. Psychological: Normal affect. Normal Mood. Skin: Warm. Dry. Normal color. Course - Re-evaluation Re-evalutation: 11/14/19 01:54 MDM 39 year old female arrives here with chronic abdominal pain. She has chronic pancreatitis and thc abuse and is due for initial pain management evaluation today. Pain was worse with dry heaving and wanted to be evaluated. No fever or chills. Ct is reviewed from 10/26 and is consistent with chronic pancreatitis. - Vital Signs Vital signs: Temp Pulse Resp BP Pulse Ox 98.4 F 108 H 13 150/107 H 100 11/13/19 20:27 11/13/19 20:27 11/14/19 00:17 11/14/19 00:17 11/14/19 00:17 - Laboratory Result Diagrams: 11/13/19 20:50 11/13/19 20:50 Laboratory results interpreted by me: 11/13/19 11/13/19 11/14/19 20:50 20:50 00:10 Hgb 11.0 L Hct 31.8 L RDW 15.9 H Sodium 135.1 L Potassium 3.1 L BUN 22 H Creatinine 1.90 H Est GFR ( Amer) 36 L Est GFR (MDRD) Non-Af 29 L Urine Protein 100 H Urine Glucose (UA) 150 H Urine Ketones TRACE H Urine Blood SMALL H Discharge - Discharge Clinical Impression: Pancreatitis Qualifiers: Chronicity: chronic Pancreatitis type: other Qualified Code(s): K86.1 - Other chronic pancreatitis Condition: Stable Disposition: HOME, SELF-CARE Instructions: Abdominal Pain ([facility]), Nausea or Vomiting, Nonspecific ([facility]), Pancreatitis ([facility]) Additional Instructions: Rest, fluids, medicines as directed. Please return here for increased pain, fever, chills persistent vomiting. Remember do not smoke marijuania - it will make abdominal pain and vomiting worse. Take your medicine as directed. Keep the follow up with pain management today. [employer] in [place] was sent your perscription. Referrals: RONALD BARKER FNP-C [Primary Care Provider] - 11/14/19 I personally performed the services described in the documentation, reviewed and edited the documentation which was dictated to the scribe in my presence, and it accurately records my words and actions.
[2019-11-14] MEDS ORDERED: HALOPERIDOL LACTATE INJ 5 MG/1 ML VIAL IM ONE (00:47)
[2019-11-14 01:38] LABS: APPEARANCE,URINE SLIGHTLY-CLOUDY; BILIRUBIN,URINE NEGATIVE (NEGATIVE); COLOR,URINE YELLOW; GLUCOSE, URINE 150 mg/dL (NEGATIVE); KETONES,URINE TRACE mg/dL (NEGATIVE); LEUKOCYTE ESTERASE,URINE NEGATIVE (NEGATIVE); NITRITE,URINE NEGATIVE (NEGATIVE); PROTEIN,URINE 100 mg/dL (NEGATIVE); UROBILINOGEN,URINE NEGATIVE mg/dL (<2.0)
[2019-11-14 04:08] VITALS: BP 154/83
== END 2019-11-14 04:10 | disposition home or self-care (01) ==
LOC: ER 20:19
DX: K86.1 Other chronic pancreatitis (principal); G89.29 Other chronic pain; R10.9 Unspecified abdominal pain; E78.00 Pure hypercholesterolemia, unspecified; I10 Essential (primary) hypertension; J44.9 Chronic obstructive pulmonary disease, unspecified; E10.9 Type 1 diabetes mellitus without complications; Z90.710 Acquired absence of both cervix and uterus
CPT/HCPCS: 36591; 99284; 96372 ×2; 96361; 96374; 96375; 36415; 83690; 85025; 80053; 81001; J1200; J1630 ×2; J2765; J1170; J7030; J1642

== ENCOUNTER 2020-02-08 08:42 | Emergency (ER) | payer MEDICAID ==
[2020-02-08] MEDS ORDERED: NORMAL SALINE 1000 ML 1,000 ML IV ONE ×2 (10:19→12:49)
[2020-02-08] MEDS ORDERED: ONDANSETRON HCL INJ/PF 4 MG/2 ML SDV IV ONE ×2 (10:19→12:50)
[2020-02-08] MEDS ORDERED: HYDROMORPHONE HCL INJ/PF 2 MG/ML AMPULE IV ONE ×2 (10:19→12:50)
--- NOTE | 2020-02-08 10:21 | ER Document Report ---
ED General - General Chief Complaint: Abdominal Pain Stated Complaint: STOMACH PAIN, NAUSEA Time Seen by Provider: 02/08/20 10:05 Primary Care Provider: RONALD BARKER FNP-C [Primary Care Provider] - Follow up as needed TRAVEL OUTSIDE OF THE [place] IN LAST 30 DAYS: No - HPI Notes: Patient is a 39-year-old female with a history of chronic pancreatitis who comes into the emergency department for evaluation of epigastric pain and nausea, consistent with pancreatitis. It has been several months since her last flareup. Her pain started this morning. It is epigastric, sharp and stabbing, and radiates to the back. She has had nausea but no associated vomiting. Normal bowel movement yesterday. No fevers or chills. No anosmia, cough, shortness of breath. She denies any urinary symptoms. Her pain is currently a 10 out of 10. - Related Data Allergies/Adverse Reactions: hydrocodone [From [place]] Allergy (Severe, Verified 10/27/19 10:34) ? morphine Allergy (Severe, Verified 10/27/19 10:34) ? Home Medications: Norvasc, metoprolol, lisinopril, duloxetine, amitriptyline, NovoLog, Lantus Past Medical History - General Information source: Patient - Social History Smoking Status: Current Every Day Smoker Frequency of alcohol use: None Drug Abuse: Marijuana Family History: Reviewed & Not Pertinent - Past Medical History Cardiac Medical History: Reports: Hx Hypercholesterolemia, Hx Hypertension Denies: Hx Atrial Fibrillation, Hx Congestive Heart Failure, Hx Coronary Artery Disease, Hx DVT, Hx Heart Attack, Hx Peripheral Vascular Disease, Hx Pulmonary Embolism Pulmonary Medical History: Reports: Hx COPD Denies: Hx Asthma, Hx Bronchitis, Hx Pneumonia, Hx Sleep Apnea Neurological Medical History: Reports: Hx Seizures. Denies: Hx Cerebrovascular Accident Endocrine Medical History: Reports: Hx Diabetes Mellitus Type 1. Denies: Hx Hyperthyroidism, Hx Hypothyroidism Renal/ Medical History: Reports: Hx Renal Insufficiency GI Medical History: Reports: Hx Gastroesophageal Reflux Disease, Hx Pancreatitis - Chronic Musculoskeletal Medical History: Denies Hx Arthritis, Reports Hx Musculoskeletal Trauma Skin Medical History: Psychiatric Medical History: Reports: Hx Anxiety Denies: Hx Depression Infectious Medical History: Past Surgical History: Reports: Hx Section - x3, Hx Hysterectomy - partial, Other - Recent Port-A-Cath placement - Immunizations Immunizations up to date: Yes Hx Diphtheria, Pertussis, Tetanus Vaccination: Yes Review of Systems - Review of Systems Constitutional: No symptoms reported EENT: No symptoms reported Cardiovascular: No symptoms reported Respiratory: No symptoms reported Gastrointestinal: See HPI Genitourinary: No symptoms reported Musculoskeletal: No symptoms reported Skin: No symptoms reported Neurological/Psychological: No symptoms reported Physical Exam - Vital signs Vitals: Temp Pulse Resp BP Pulse Ox 98.2 F 94 20 183/108 H 97 02/08/20 08:49 02/08/20 08:49 02/08/20 08:49 02/08/20 08:49 02/08/20 08:49 - Notes Notes: This is a 39-year-old female who appears her stated age in a moderate amount of stress. She is tearful, rocking back and forth on the bed. Vital signs reviewed, please refer to chart. Head is normocephalic, atraumatic. Pupils equa l round, reactive to light. Neck is supple without meningismus. Heart is regular rate and rhythm. Lungs are clear to auscultation bilaterally. Abdomen is significantly tender in the epigastrium with some voluntary guarding, no rebound, normoactive bowel sounds throughout. Extremities without cyanosis, clubbing. Posterior calves are nontender. Peripheral pulses are equal. Skin is warm and dry. Patient is awake, alert, neurological exam is nonfocal. Course - Re-evaluation Re-evalutation: 02/08/20 10:23 Patient presents to the emergency department for evaluation. Laboratory investigations, IV fluids, pain and nausea medicine are ordered. She is to be kept n.p.o. She is currently stable, we will continue to monitor. 02/08/20 12:54 Laboratory investigations reveal her CKD, but no elevated lipase, no other concerning findings. I suspect that this is her pain secondary to chronic pancreatitis. I went back into evaluate the patient and she continues to have vomiting. It is nonbloody nonbilious. I will give her another liter of fluids, pain medicine, nausea medication. I will give her instructions on chronic pancreatitis. I will send her home with Phenergan suppositories. She is to follow-up closely with her primary care provider. She also advised me that she is having difficulty with her vision and has never seen an board of education secretary. I will give her the names of multiple ophthalmologists here in town with the idea that this is a type I diabetic who needs evaluation by ophthalmology. I encouraged her to contact them independently for evaluation. She voiced understanding will be discharged. - Vital Signs Vital signs: Temp Pulse Resp BP Pulse Ox 98.2 F 94 20 183/108 H 97 02/08/20 08:49 02/08/20 08:49 02/08/20 08:49 02/08/20 08:49 02/08/20 08:49 - Laboratory Results Result Diagrams: 02/08/20 10:55 02/08/20 10:55 Laboratory Results Interpreted: 02/08/20 02/08/20 02/08/20 10:55 10:55 11:22 RBC 3.36 L Hgb 9.6 L Hct 28.0 L RDW 15.1 H Seg Neutrophils % 78.3 H Potassium 3.5 L BUN 24 H Creatinine 2.08 H Est GFR ( Amer) 32 L Est GFR (MDRD) Non-Af 27 L Glucose 287 H Alkaline Phosphatase 165 H Albumin 3.4 L Urine Protein >=500 H Urine Glucose (UA) >=500 H Urine Blood SMALL H Critical Laboratory Results Reviewed: No Critical Results - Radiology Results Critical Radiology Results Reviewed: No Critical Results Discharge - Discharge Clinical Impression: IDDM (insulin dependent diabetes mellitus), Epigastric abdominal pain Nausea & vomiting Qualifiers: Vomiting type: unspecified Chronic pancreatitis Qualifiers: Pancreatitis type: unspecified pancreatitis type Qualified Code(s): K86.1 - Other chronic pancreatitis Condition: Stable Disposition: HOME, SELF-CARE Instructions: Abdominal Pain ([facility]), Vomiting ([facility]), Pancreatitis ([facility]) Additional Instructions: Your findings today are most consistent with a flare of your chronic pancreatitis, but there is no signs of acute pancreatitis at this time. Clear liquids, advance diet slowly. Phenergan suppositories as needed for nausea. You need to follow-up with primary care doctor soon as possible. As discussed, you should also have formal evaluation by ophthalmology. Number of ophthalmologists here in town have been listed on your paperwork for you to seek out evaluation. If you develop worsening pain, fevers, intractable vomiting, or any other new or concerning symptoms, please return immediately to the emergency department for evaluation. Referrals: RONALD BARKER, DONALDC [Primary Care Provider] - Follow up as needed
[2020-02-08 11:05] LABS: ABSOLUTE BASOPHILS # (AUTO) 0.1 10^3/uL (0.0-0.2); ABSOLUTE EOSINOPHILS # (AUTO) 0.1 10^3/uL (0.0-0.6); ABSOLUTE LYMPHOCYTES (AUTO) 1.6 10^3/uL (0.5-4.7); ABSOLUTE MONOCYTES (AUTO) 0.5 10^3/uL (0.1-1.4); ABSOLUTE NEUT (AUTO) 8.2 10^3/uL (1.7-8.2); BASOPHILS % (AUTO) 0.7 % (0-2); EOSINOPHILS % (AUTO) 0.8 % (0-6); HEMOGLOBIN 9.6 g/dL (12.0-15.5); LYMPHOCYTES % (AUTO) 15.7 % (13-45); MEAN CORPUSCULAR HEMOGLOBIN 28.6 pg (27.0-33.4); MEAN CORPUSCULAR HGB CONC 34.3 g/dL (32.0-36.0); MEAN CORPUSCULAR VOLUME 83 fl (80-97); MONOCYTES % (AUTO) 4.5 % (3-13); PLATELET COUNT 319 10^3/uL (150-450); RED BLOOD COUNT 3.36 10^6/uL (3.72-5.28); RED CELL DISTRIBUTION WIDTH 15.1 % (11.5-14.0); SEGMENTED NEUTROPHILS % (AUTO) 78.3 % (42-78); TOTAL CELLS COUNTED % (AUTO) 100 %; WHITE BLOOD COUNT 10.4 10^3/uL (4.0-10.5)
[2020-02-08 11:21] LABS: ALBUMIN 3.4 g/dL (3.5-5.0); ALKALINE PHOSPHATASE 165 U/L (38-126); ANION GAP 5 (5-19); ASPARTATE AMINO TRANSFERASE 18 U/L (14-36); BILIRUBIN,DIRECT 0.2 mg/dL (0.0-0.4); BILIRUBIN,TOTAL 0.3 mg/dL (0.2-1.3); BLOOD UREA NITROGEN 24 mg/dL (7-20); CALCIUM 9.1 mg/dL (8.4-10.2); CARBON DIOXIDE 26 mmol/L (22-30); CHLORIDE 106 mmol/L (98-107); GLUCOSE 287 mg/dL (75-110); POTASSIUM 3.5 mmol/L (3.6-5.0); TOTAL PROTEIN 6.5 g/dL (6.3-8.2)
[2020-02-08 11:39] LABS: APPEARANCE,URINE SLIGHTLY-CLOUDY; BILIRUBIN,URINE NEGATIVE (NEGATIVE); COLOR,URINE STRAW; GLUCOSE, URINE >=500 mg/dL (NEGATIVE); KETONES,URINE NEGATIVE (NEGATIVE); LEUKOCYTE ESTERASE,URINE NEGATIVE (NEGATIVE); NITRITE,URINE NEGATIVE (NEGATIVE); PROTEIN,URINE >=500 mg/dL (NEGATIVE); URINE SPECIFIC GRAVITY 1.014; UROBILINOGEN,URINE NEGATIVE mg/dL (<2.0)
[2020-02-08] MEDS ORDERED: PROMETHAZINE HCL 25 MG SUPP (4 SUPP/ER DISP) PR ONE (12:50)
[2020-02-08 15:22] VITALS: BP 180/95
== END 2020-02-08 15:34 | disposition home or self-care (01) ==
LOC: ER 08:42
DX: K86.1 Other chronic pancreatitis (principal); R10.13 Epigastric pain; R11.2 Nausea with vomiting, unspecified; I12.9 Hypertensive chronic kidney disease with stage 1 through stage 4 chronic kidney disease, or unspecified chronic kidney disease; E10.22 Type 1 diabetes mellitus with diabetic chronic kidney disease; N18.9 Chronic kidney disease, unspecified; F17.200 Nicotine dependence, unspecified, uncomplicated; F12.10 Cannabis abuse, uncomplicated; J44.9 Chronic obstructive pulmonary disease, unspecified; F41.9 Anxiety disorder, unspecified; Z79.4 Long term (current) use of insulin; Z79.899 Other long term (current) drug therapy
CPT/HCPCS: 96376; 99284; 96361; 96374; 96375; 36415; 83690; 85025; 80053; 81001; J3490; J1170; J2405; J7030; J1642

== ENCOUNTER 2020-02-08 17:08 | Inpatient (IN) | payer MEDICAID ==
[2020-02-08] MEDS ORDERED: PROMETHAZINE HCL INJ 25 MG/1 ML VIAL IM ONE (18:20)
--- NOTE | 2020-02-08 18:24 | ER Document Report ---
ED Medical Screen (RME) - General Stated Complaint: ABDOMINAL PAIN Time Seen by Provider: 02/08/20 18:17 Primary Care Provider: RONALD BARKER FNP-C [Primary Care Provider] - Follow up as needed Notes: Patient is a 39-year-old female who presents to the emergency department with a chief complaint of abdominal pain, nausea, and vomiting. Patient was seen earlier today in the emergency department with similar symptoms. Her lab work did not show pancreatitis, although the patient does have a history of pancreatitis and noncompliance with medication regimen. Exam: Patient vomiting in bathroom. We will give a dose of Phenergan and summer ent will be seen by provider in room. I have greeted and performed a rapid initial assessment of this patient. A comprehensive ED assessment and evaluation of the patient, analysis of test results and completion of medical decision making process will be conducted by an additional ED providers. TRAVEL OUTSIDE OF THE [place] IN LAST 30 DAYS: No - Related Data Allergies/Adverse Reactions: hydrocodone [From [place]] Allergy (Severe, Verified 10/27/19 10:34) ? morphine Allergy (Severe, Verified 10/27/19 10:34) ? Past Medical History - Social History Family history: None - Past Medical History Cardiac Medical History: Reports: Hx Hypercholesterolemia, Hx Hypertension Denies: Hx Atrial Fibrillation, Hx Congestive Heart Failure, Hx Coronary Artery Disease, Hx DVT, Hx Heart Attack, Hx Peripheral Vascular Disease, Hx Pulmonary Embolism Pulmonary Medical History: Reports: Hx COPD Denies: Hx Asthma, Hx Bronchitis, Hx Pneumonia, Hx Sleep Apnea Neurological Medical History: Reports: Hx Seizures. Denies: Hx Cerebrovascular Accident Endocrine Medical History: Reports: Hx Diabetes Mellitus Type 1, Hx Diabetes Mellitus Type 2. Denies: Hx Hyperthyroidism, Hx Hypothyroidism Renal/ Medical History: Reports: Hx Renal Insufficiency GI Medical History: Reports: Hx Gastroesophageal Reflux Disease, Hx Pancreatitis - Chronic Musculoskeltal Medical History: Denies Hx Arthritis, Reports Hx Musculoskeletal Trauma Skin Medical History: Psychiatric Medical History: Reports: Hx Anxiety Denies: Hx Depression Infectious Medical History: Past Surgical History: Reports: Hx Section - x3, Hx Hysterectomy - partial, Other - Recent Port-A-Cath placement - Immunizations Immunizations up to date: Yes Hx Diphtheria, Pertussis, Tetanus Vaccination: Yes Physical Exam - Vital signs Vitals: Temp Pulse Resp BP Pulse Ox 98.2 F 89 22 H 214/103 H 98 01/01/21 17:09 02/08/20 17:09 02/08/20 17:09 02/08/20 17:09 02/08/20 17:09 Course - Vital Signs Vital signs: Temp Pulse Resp BP Pulse Ox 98.2 F 89 22 H 214/103 H 98 02/08/20 17:09 02/08/20 17:09 02/08/20 17:09 02/08/20 17:09 02/08/20 17:09 Doctor's Discharge - Discharge Referrals: RONALD BARKER, VEHICLE WASHER-C [Primary Care Provider] - Follow up as needed
[2020-02-08 23:29] LABS: HEMATOCRIT 31.1 % (36.0-47.0); HEMOGLOBIN 10.2 g/dL (12.0-15.5); MEAN CORPUSCULAR HEMOGLOBIN 27.9 pg (27.0-33.4); MEAN CORPUSCULAR HGB CONC 32.7 g/dL (32.0-36.0); MEAN CORPUSCULAR VOLUME 85 fl (80-97); PLATELET COUNT 320 10^3/uL (150-450); RED BLOOD COUNT 3.65 10^6/uL (3.72-5.28); RED CELL DISTRIBUTION WIDTH 15.1 % (11.5-14.0); WHITE BLOOD COUNT 14.2 10^3/uL (4.0-10.5)
[2020-02-08 23:48] LABS: ALBUMIN 4.1 g/dL (3.5-5.0); ALKALINE PHOSPHATASE 234 U/L (38-126); ANION GAP 16 (5-19); ASPARTATE AMINO TRANSFERASE 28 U/L (14-36); BILIRUBIN,DIRECT 0.3 mg/dL (0.0-0.4); BILIRUBIN,TOTAL 0.5 mg/dL (0.2-1.3); BLOOD UREA NITROGEN 27 mg/dL (7-20); CALCIUM 9.5 mg/dL (8.4-10.2); CARBON DIOXIDE 18 mmol/L (22-30); CHLORIDE 106 mmol/L (98-107); POTASSIUM 3.7 mmol/L (3.6-5.0); TOTAL PROTEIN 7.2 g/dL (6.3-8.2)
[2020-02-08 23:55] LABS: GLUCOSE 407 mg/dL (75-110)
[2020-02-09] MEDS ORDERED: NORMAL SALINE 1000 ML 1,000 ML IV ONE ×4 (00:08→15:45)
[2020-02-09 00:21] LABS: ABSOLUTE LYMPHOCYTES# (MANUAL) 0.1 10^3/uL (0.5-4.7); ABSOLUTE MONOCYTES # (MANUAL) 0.4 10^3/uL (0.1-1.4); BASOPHILS % (MANUAL) 0 % (0-2); EOSINOPHILS % (MANUAL) 0 % (0-6); LYMPHOCYTES % (MANUAL) 1 % (13-45); MONOCYTES % (MANUAL) 3 % (3-13); SEGMENTED NEUTROPHILS % (MAN) 96 % (42-78); TOTAL CELLS COUNTED 100
[2020-02-09 00:22] LABS: ANISOCYTOSIS SLIGHT; BURR CELLS SLIGHT; OVALOCYTES SLIGHT; PLATELET COMMENT ADEQUATE; POIKILOCYTOSIS SLIGHT; SCHISTOCYTES SLIGHT; TEAR DROP CELLS SLIGHT; TOXIC GRANULATION SLIGHT; TOXIC VACUOLATION PRESENT
[2020-02-09 02:15] LABS: ARTERIAL BLOOD BASE EXCESS -12.9 mmol/L; ARTERIAL BLOOD H2CO3 1.01 mmol/L (1.05-1.35); ARTERIAL BLOOD HCO3 13.6 mmol/L (20-24); ARTERIAL BLOOD O2 SATURATION 79.8 % (94-98); ARTERIAL BLOOD PCO2 33.5 mmHg (35-45); ARTERIAL BLOOD PH 7.23 (7.35-7.45); ARTERIAL BLOOD PO2 51.1 mmHg (80-100); ARTERIAL BLOOD TOTAL CO2 14.6 mmol/L (21-25)
[2020-02-09 02:48] LABS: ARTERIAL BLOOD FIO2 ROOM AIR
[2020-02-09] MEDS ORDERED: HYDROMORPHONE HCL INJ/PF 2 MG/ML AMPULE IV ONE (04:20)
[2020-02-09] MEDS ORDERED: INSULIN REG, HUMAN 100 UNIT/ML 3 ML VIAL (PYX) SUBCUT ONE ×2 (04:23→04:54)
--- NOTE | 2020-02-09 04:30 | ER Document Report ---
ED GI/ - General Chief Complaint: Abdominal Pain Stated Complaint: ABDOMINAL PAIN Time Seen by Provider: 02/08/20 18:17 Mode of Arrival: Medic Information source: Patient Notes: 39-year-old female presented to ED for complaint of abdominal pain nausea and vomiting. She was seen earlier in the day yesterday and discharged home. She came back in for nausea and vomiting. She states she had pancreatitis so bad she cannot keep any fluids down. Her lipase is within normal. She states she was not able to eat and she did not take any of her insulin. She states she was not able to take any of her medicines except for her blood pressure medicine due to the nausea and vomiting. Constitutional: Negative for fever. HENT: Negative for sore throat. Eyes: Negative for visual changes. Cardiovascular: Negative for chest pain. Respiratory: Negative for shortness of breath. Gastrointestinal: Patient complains of abdominal pain with nausea and vomiting. She states is her pancreatitis pain. She states that she took her Lantus insulin before coming to the emergency room last night but she came in at 6:00 in the evening. She states no has not when she came in. Genitourinary: Negative for dysuria. Musculoskeletal: Negative for back pain. Skin: Negative for rash. Neurological: Negative for headaches, weakness or numbness. 10 point ROS negative except as marked above and in HPI. VITAL SIGNS: Within normal limits. GENERAL: No acute distress, non-toxic appearance. HEAD: Normal with no signs of head trauma. EYES: PERRLA, EOMI, conjunctiva normal, no discharge. EARS: Hearing grossly intact. NOSE: Normal. THROAT: Oropharynx is normal. NECK: Normal range of motion, no tenderness, supple, no lymphadenopathy, No adenopathy, no JVD. CHEST: Clear breath sounds bilaterally. No wheezes, rales, or rhonchi. CARDIAC: Regular rate and rhythm. S1 and S2, without murmurs, gallops, or rubs. VASCULAR: No Edema. Peripheral pulses normal and equal in all extremities. ABDOMEN: Abdominal tenderness throughout more so to the upper to mid GASTROINTESTINAL: Bowel sounds normal GENITOURINARY: Normal, No tenderness LYMPATHTIC: No lymphadenopathy noted. MUSCULOSKELETAL: Good range of motion of all major joints. Extremities without clubbing, cyanosis or edema. NEUROLOGICAL: Alert and oriented x 3. No focal sensory or strength deficits. Speech normal. Follows commands appropriately. PSYCHIATRIC: Normal Affect, judgement and mood. SKIN: Normal appearance with no rashes or lesions. TRAVEL OUTSIDE OF THE [place] IN LAST 30 DAYS: No - HPI Patient complains to provider of: Abdominal pain, Vomiting Onset: Other - Patient states she has been having nausea and vomiting for the last 3 days. Timing/Duration: Persistent Quality of pain: Burning, Sharp Severity at maximum: Moderate Severity in ED: Moderate Pain Level: 4 Location: Other Vaginal bleeding (Compared to normal period): None Associated symptoms: Nausea, Vomiting Exacerbated by: Denies Relieved by: Denies Similar symptoms previously: Yes Recently seen / treated by doctor: Yes - Related Data Allergies/Adverse Reactions: hydrocodone [From [place]] Allergy (Severe, Verified 10/27/19 10:34) ? morphine Allergy (Severe, Verified 10/27/19 10:34) ? Home Medications: lisinopril, metoporal, amlodapine Past Medical History - General Information source: Patient - Social History Smoking Status: Never Smoker Chew tobacco use (# tins/day): No Frequency of alcohol use: None Drug Abuse: Marijuana Lives with: Family Family History: Reviewed & Not Pertinent Patient has homicidal ideation: No - Past Medical History Cardiac Medical History: Reports: Hx Hypercholesterolemia, Hx Hypertension Pulmonary Medical History: Reports: Hx COPD EENT Medical History: Reports: None Neurological Medical History: Reports: Hx Seizures Endocrine Medical History: Reports: Hx Diabetes Mellitus Type 1 Renal/ Medical History: Reports: Hx Renal Insufficiency Malignancy Medical History: Reports: None GI Medical History: Reports: Hx Gastroesophageal Reflux Disease, Hx Pancreatitis - Chronic Musculoskeletal Medical History: Reports Hx Musculoskeletal Trauma Skin Medical History: Reports None Psychiatric Medical History: Reports: Hx Anxiety Traumatic Medical History: Reports: None Infectious Medical History: Reports: None Past Surgical History: Reports: Hx Section - x3, Hx Hysterectomy - partial, Other - Recent Port-A-Cath placement - Immunizations Immunizations up to date: Yes Hx Diphtheria, Pertussis, Tetanus Vaccination: Yes Physical Exam - Vital signs Vitals: Temp Pulse Resp BP Pulse Ox 98.2 F 89 22 H 214/103 H 98 02/08/20 17:09 02/08/20 17:09 02/08/20 17:09 02/08/20 17:09 02/08/20 17:09 Course - Re-evaluation Re-evalutation: 02/09/20 09:17 Labs have been discussed with Dr. Elizondo throughout the night. Did recommend IV fluids and subcu insulin with the first glucose. Her glucose then went up instead of coming down. Her ABG did show acidosis. I did discuss this patient with Dr. Lee the hospitalist when I completed all the labs. She did accept the patient for admission to [facility]. She did asked that I order 2 more liters of fluids. These I have ordered. I did discuss with Dr. Lee that the patient would not let me give her about 6 units of insulin earlier in the evening. She stated the patient would be on insulin drip or she would need to go home. Patient did agree to be on the insulin drip. Patient was admitted to the floor. - Vital Signs Vital signs: Temp Pulse Resp BP Pulse Ox 97.9 F 105 H 12 132/63 H 100 02/09/20 04:01 02/08/20 23:41 02/09/20 07:01 02/09/20 07:00 02/09/20 07:01 - Laboratory Results Result Diagrams: 02/08/20 23:20 02/08/20 23:20 Laboratory Results Interpreted: 02/08/20 02/08/20 02/09/20 23:20 23:20 01:49 WBC 14.2 H RBC 3.65 L Hgb 10.2 L Hct 31.1 L RDW 15.1 H Seg Neuts % (Manual) 96 H Lymphocytes % (Manual) 1 L Abs Neuts (Manual) 13.6 H Abs Lymphs (Manual) 0.1 L Carbonic Acid 1.01 L ABG pH 7.23 L ABG pCO2 33.5 L ABG pO2 51.1 L ABG HCO3 13.6 L ABG Total CO2 14.6 L ABG O2 Saturation 79.8 L Carbon Dioxide 18 L BUN 27 H Creatinine 1.79 H Est GFR ( Amer) 38 L Est GFR (MDRD) Non-Af 32 L Glucose 407 H* POC Glucose Alkaline Phosphatase 234 H Urine Protein Urine Glucose (UA) Urine Ketones Urine Blood 02/09/20 02/09/20 02/09/20 04:00 04:10 06:21 WBC RBC Hgb Hct RDW Seg Neuts % (Manual) Lymphocytes % (Manual) Abs Neuts (Manual) Abs Lymphs (Manual) Carbonic Acid 0.76 L ABG pH 7.11 L* ABG pCO2 25.3 L ABG pO2 107.8 H ABG HCO3 7.9 L ABG Total CO2 8.6 L ABG O2 Saturation Carbon Dioxide BUN Creatinine Est GFR ( Amer) Est GFR (MDRD) Non-Af Glucose POC Glucose 461 H* Alkaline Phosphatase Urine Protein >=500 H Urine Glucose (UA) >=500 H Urine Ketones 80 H Urine Blood SMALL H 02/09/20 07:41 WBC RBC Hgb Hct RDW Seg Neuts % (Manual) Lymphocytes % (Manual) Abs Neuts (Manual) Abs Lymphs (Manual) Carbonic Acid ABG pH ABG pCO2 ABG pO2 ABG HCO3 ABG Total CO2 ABG O2 Saturation Carbon Dioxide BUN Creatinine Est GFR ( Amer) Est GFR (MDRD) Non-Af Glucose POC Glucose 512 H* Alkaline Phosphatase Urine Protein Urine Glucose (UA) Urine Ketones Urine Blood Critical Laboratory Results Reviewed: Yes Attending or Supervising Physician who Reviewed Labs: EDGAR ELIZONDO IV - Radiology Results Critical Radiology Results Reviewed: No Critical Results Discharge - Discharge Clinical Impression: DKA (diabetic ketoacidoses) Qualifiers: Diabetes mellitus type: type 1 Diabetes mellitus complication detail: without coma Qualified Code(s): E10.10 - Type 1 diabetes mellitus with ketoacidosis without coma Abdominal pain Qualifiers: Abdominal location: generalized Qualified Code(s): R10.84 - Generalized abdominal pain Disposition: ADMITTED INPATIENT Admitting Provider: Jesus (Hospitalist) Unit Admitted: [facility]
[2020-02-09 04:32] LABS: APPEARANCE,URINE CLEAR; BILIRUBIN,URINE NEGATIVE (NEGATIVE); COLOR,URINE STRAW; GLUCOSE, URINE >=500 mg/dL (NEGATIVE); KETONES,URINE 80 mg/dL (NEGATIVE); LEUKOCYTE ESTERASE,URINE NEGATIVE (NEGATIVE); NITRITE,URINE NEGATIVE (NEGATIVE); PROTEIN,URINE >=500 mg/dL (NEGATIVE); URINE SPECIFIC GRAVITY 1.013; UROBILINOGEN,URINE NEGATIVE mg/dL (<2.0)
[2020-02-09 06:43] LABS: ARTERIAL BLOOD BASE EXCESS -20.1 mmol/L; ARTERIAL BLOOD H2CO3 0.76 mmol/L (1.05-1.35); ARTERIAL BLOOD HCO3 7.9 mmol/L (20-24); ARTERIAL BLOOD O2 SATURATION 96.2 % (94-98); ARTERIAL BLOOD PCO2 25.3 mmHg (35-45); ARTERIAL BLOOD PO2 107.8 mmHg (80-100); ARTERIAL BLOOD TOTAL CO2 8.6 mmol/L (21-25)
[2020-02-09 06:45] LABS: ARTERIAL BLOOD FIO2 ROOM AIR
[2020-02-09 06:46] LABS: ARTERIAL BLOOD PH 7.11 (7.35-7.45)
[2020-02-09] MEDS ORDERED: NORMAL SALINE 1000 ML 1,000 ML IV PRN (07:57)
[2020-02-09] MEDS ORDERED: DEXTROSE 40% GEL 15 GM TUBE PO PRN ×2 (07:58)
[2020-02-09] MEDS ORDERED: DEXTROSE 50%-WATER 25 GM/50 ML DISP.SYRIN IV PRN ×2 (07:58)
[2020-02-09] MEDS ORDERED: NORMAL SALINE 100 ML with INSULIN REGULAR, HUMAN 100 UNIT IV PRN ×2 (07:58)
[2020-02-09] MEDS ORDERED: GLUCAGON,HUMAN RECOMB 1 MG INJ IM PRN (07:58)
[2020-02-09] MEDS ORDERED: ONDANSETRON HCL INJ/PF 4 MG/2 ML SDV IV PRN (08:00)
[2020-02-09] MEDS ORDERED: PROMETHAZINE HCL 25 MG SUPP.RECT PR PRN (08:00)
[2020-02-09] MEDS ORDERED: ACETAMINOPHEN 325 MG TABLET PO PRN (08:00)
[2020-02-09] MEDS ORDERED: PROMETHAZINE HCL 25 MG TABLET PO PRN ×2 (08:00→13:38)
[2020-02-09] MEDS ORDERED: INSULIN REG, HUMAN 100 UNIT/ML 3 ML VIAL (PYX) ONE (08:51)
[2020-02-09] MEDS ORDERED: OXYCODONE HCL IR 5 MG TABLET PO PRN (11:45)
[2020-02-09] MEDS: HYDROMORPHONE HCL INJ/PF 2 MG/ML AMPULE IV PRN ×2 (11:57→20:21)
[2020-02-09 12:08] LABS: D-DIMER 0.64 ug/mL (0.00-0.50)
[2020-02-09 12:25] LABS: ANION GAP 17 (5-19); BLOOD UREA NITROGEN 36 mg/dL (7-20); CALCIUM 8.5 mg/dL (8.4-10.2); CARBON DIOXIDE 15 mmol/L (22-30); CHLORIDE 105 mmol/L (98-107); GLUCOSE 362 mg/dL (75-110); POTASSIUM 3.8 mmol/L (3.6-5.0)
[2020-02-09 12:28] LABS: C-REACTIVE PROTEIN 6.4 mg/L (<10.0)
[2020-02-09 12:43] LABS: FREE T4 (FREE THYROXINE) 1.18 ng/dL (0.78-2.19)
[2020-02-09 12:46] LABS: ARTERIAL BLOOD BASE EXCESS -11.3 mmol/L; ARTERIAL BLOOD FIO2 21%; ARTERIAL BLOOD H2CO3 0.97 mmol/L (1.05-1.35); ARTERIAL BLOOD HCO3 14.5 mmol/L (20-24); ARTERIAL BLOOD PCO2 32.2 mmHg (35-45); ARTERIAL BLOOD PH 7.27 (7.35-7.45); ARTERIAL BLOOD PO2 101.8 mmHg (80-100); ARTERIAL BLOOD TOTAL CO2 15.5 mmol/L (21-25)
[2020-02-09 12:57] LABS: THYROID STIMULATING HORMONE 0.56 uIU/mL (0.47-4.68)
[2020-02-09 13:01] LABS: FERRITIN 40.7 ng/mL (6.2-137.0)
[2020-02-09 14:49] LABS: ANION GAP 10 (5-19); BLOOD UREA NITROGEN 38 mg/dL (7-20); CALCIUM 8.8 mg/dL (8.4-10.2); CARBON DIOXIDE 20 mmol/L (22-30); CHLORIDE 107 mmol/L (98-107); GLUCOSE 249 mg/dL (75-110); POTASSIUM 3.8 mmol/L (3.6-5.0)
--- NOTE | 2020-02-09 15:10 | RADIOLOGY REPORT (SQ) ---
EXAM DESCRIPTION: CT ABD/PELVIS NO ORAL OR IV; CT CHEST WITHOUT IMAGES COMPLETED DATE/TIME: 02/09/2020 11:43 am; 02/09/2020 11:42 am REASON FOR STUDY: sepsis of unknown etiology, severe abd pain, SOB COMPARISON: Single-view chest 09/28/2019. TECHNIQUE: CT scan of the chest performed without intravenous contrast using helical scanning techni que. Images reviewed with lung, soft tissue and bone windows. Reconstructed coronal and sagittal MPR images reviewed. All images stored on PACS. All CT scanners at this facility use dose modulation, iterative reconstruction, and/or weight based d osing when appropriate to reduce radiation dose to as low as reasonably achievable (ALARA). [facility]: Dose Right [facility]: CareDose [facility]: Dose Right [facility]: Teradose 4D [facility]: [employer] RADIATION DOSE: CT Rad equipment meets quality standard of care and radiation dose reduction techniq ues were employed. CTDIvol: 4.5 mGy. DLP: 303 mGy-cm. mGy. LIMITATIONS: None. FINDINGS: AXILLAE: No adenopathy. CHEST WALL: No masses. No subcutaneous air. LUNGS: Mild dependent atelectasis most pronounced in the left lower lobe. No other suspicious parenc hymal consolidation. No suspicious pulmonary nodule identified. PLEURA: No pleural effusions or thickening. No pneumothorax. THYROID: No masses or significant asymmetry. HILAR AND MEDIASTINAL STRUCTURES: No identified masses or abnormal nodes. AORTA AND GREAT VESSELS: No aneurysm. HEART: No pericardial effusion. HARDWARE AND LIFELINES: Right MediPort catheter with the tip in the upper right atrium. BONES: No significant finding. OTHER: No other significant finding. IMPRESSION: Mild dependent opacities in the left lower lobe likely representing atelectasis. Cannot definitively exclude mild infectious component or aspiration. No other acute abnormality on noncont rast CT of the chest. COMPARISON: CT abdomen pelvis 10/27/2019 TECHNIQUE: CT scan of the abdomen and pelvis performed without intravenous contrast and withoutoral contrast using helical scanning technique with dynamic intravenous contrast injection. Images review ed with lung, soft tissue and bone windows. Reconstructed coronal and sagittal MPR images reviewed. All images stored on PACS. All CT scanners at this facility use dose modulation, iterative reconstruction, and/or weight based d osing when appropriate to reduce radiation dose to as low as reasonably achievable (ALARA). [facility]: Dose Right [facility]: [employer]Care [facility]: Dose Right [facility]: Teradose 4D [facility]: [employer] RADIATION DOSE: CT Rad equipment meets quality standard of care and radiation dose reduction techniq ues were employed. CTDIvol: 4.5 mGy. DLP: 303 mGy-cm.mGy. LIMITATIONS: Suboptimal evaluation of the vasculature and solid organs due to lack IV contrast. FINDINGS: LIVER: Normal size. No masses. No dilated ducts. SPLEEN: Normal size. No focal lesions. PANCREAS: Diffuse coarse parenchymal calcifications throughout the pancreas compatible with chronic p ancreatitis. Appearance is similar to prior examination. No new exophytic from pancreatic mass or p eripancreatic fat stranding or fluid. GALLBLADDER: No identified stones by CT criteria. No inflammatory changes to suggest cholecystitis. ADRENAL GLANDS: No significant masses or asymmetry. RIGHT KIDNEY AND URETER: No solid masses. Assessment limited by lack of IV contrast. No significant c alcification. No hydronephrosis or hydroureter. LEFT KIDNEY AND URETER: No solid masses. Assessment limited by lack of IV contrast. No significant ca lcification. No hydronephrosis or hydroureter. AORTA AND VESSELS: No aneurysm. RETROPERITONEUM: No retroperitoneal adenopathy, hemorrhage or masses. APPENDIX: Normal. LARGE AND SMALL BOWEL: No dilatation or significant wall thickening. Moderate stool in the colon. ABDOMINAL WALL: No hernia or masses. PERITONEAL CAVITY: No free air. No free fluid. No peritoneal implants or masses. PELVIS: Urinary bladder is unremarkable. Status posthysterectomy. BONES: No significant or acute findings. OTHER: No other significant finding. IMPRESSION: 1. Findings compatible with chronic pancreatitis. 2. No acute abnormality on noncontrast CT of the abdomen and pelvis. TECHNICAL DOCUMENTATION: JOB ID: [id number] Quality ID # [id number]: Final reports with documentation of one or more dose reduction techniques (e.g., Au tomated exposure control, adjustment of the mA and/or kV according to patient size, use of iterative reconstruction technique) 2010 [employer]- All Rights Reserved Reading location - IP/workstation name: [email or web address]
--- NOTE | 2020-02-09 15:56 | PDOC H&P ---
History of Present Illness Admission Date/PCP: 02/09/20 08:28 LYNNE OLMEDO Patient complains of: abdominal pain History of Present Illness: JJ HOFFMAN is a 39 year old female with insulin-dependent diabetes mellitus c/b multiple episodes of DKA, chronic pancreatitis, chronic anemia, chronic kidney disease who presents with abdominal pain x1 days. She tells me that she has had a dry cough for the last week. No known sick contacts, but her daughter does attend school in person. Denies fevers/chills, chest pain, diarrhea. This morning, she awoke with severe, diffuse abdominal pain. When she checked her glucose, it was >300 so she came to the ED. Upon presentation, she was found to be in DKA. She received 2 L of IVF and 6 units of insulin in the ED. Past Medical History Cardiac Medical History: Reports: Hyperlipidema, Hypertension Denies: Atrial Fibrillation, Congestive Heart Failure, Coronary Artery Disease, DVT, Myocardial Infarction, Peripheral Vascular Disease, Pulmonary Embolism Pulmonary Medical History: Denies: Asthma, Bronchitis, Pneumonia, Sleep Apnea EENT Medical History: Reports: None Neurological Medical History: Reports: Seizures Endocrine Medical History: Reports: Diabetes Mellitus Type 1, Diabetes Mellitus Type 2 Denies: Hyperthyroidism, Hypothyroidism Renal/ Medical History: Reports: Chronic Kidney Disease Malignancy Medical History: Reports: None GI Medical History: Reports: Gastroesophageal Reflux Disease Musculoskeltal Medical History: Denies: Arthritis Skin Medical History: Reports: None Psychiatric Medical History: Denies: Depression Traumatic Medical History: Reports: None Hematology: Reports: Anemia Denies: Bleeding Tendencies, Heparin Induced Thrombocytopenia Infectious Medical History: Reports: None Past Surgical History Past Surgical History: Reports: Section - x3, Hysterectomy - partial, Other - Recent Port-A-Cath placement Social History Information Source: Patient Lives with: Family Smoking Status: Never Smoker Electronic Cigarette use?: No Frequency of Alcohol Use: Social Hx Recreational Drug Use: Yes Drugs: Marijuana Hx Prescription Drug Abuse: No - Advance Directive Resuscitation Status: Full Code Family History Family History: Reviewed & Not Pertinent Parental Family History Reviewed: Yes Children Family History Reviewed: Yes Sibling(s) Family History Reviewed.: Yes Medication/Allergy Home Medications: Promethazine HCl [Phenergan 25 mg Tablet] 25 mg PO Q6HP PRN 09/15/19 Metoprolol Tartrate [Lopressor 25 mg Tablet] 25 mg PO Q12 #60 tablet 09/19/19 Amlodipine Besylate [Norvasc 5 mg Tablet] 5 mg PO Q12 #60 tablet 10/03/19 Sucralfate [Carafate 1 gm Tablet] 1 gm PO ACHS #120 tablet 11/12/19 Amitriptyline HCl [Elavil 25 mg Tablet] 25 mg PO QHS 02/09/20 Butalbital/Aspirin/Caffeine [Rvvhcm-Jqtsurn-Thutr 50-325-40] 2 each PO Q4HP PRN 02/09/20 Duloxetine HCl [Cymbalta 20 Mg Capsule.Dr] 20 mg PO DAILY 02/09/20 Duloxetine HCl [Cymbalta] 60 mg PO DAILY 02/09/20 Insulin Aspart [Novolog Flexpen] 10 units SQ QAM 02/09/20 Insulin Glargine,Hum.rec.anlog [Lantus Insulin 100 Unit/1 ml 10 ml] 20 unit SUBCUT DAILY 02/09/20 Lisinopril 20 mg PO DAILY 02/09/20 Pregabalin [Lyrica 50 Mg Capsule] 50 mg PO QHS 02/09/20 Allergies/Adverse Reactions: hydrocodone [From [place]] Allergy (Severe, Verified 10/27/19 10:34) ? morphine Allergy (Severe, Verified 10/27/19 10:34) ? Review of Systems Constitutional: ABSENT: fever(s) Nose, Mouth, and Throat: ABSENT: sore throat Respiratory: PRESENT: cough. ABSENT: dyspnea, hemoptysis Gastrointestinal: PRESENT: abdominal pain, nausea. ABSENT: diarrhea Genitourinary: ABSENT: dysuria Neurological: ABSENT: convulsions, dizziness Psychiatric: PRESENT: anxiety Physical Exam Vital Signs: Temp Pulse Resp BP Pulse Ox 97.9 F 105 H 12 117/80 100 02/09/20 04:01 02/08/20 23:41 02/09/20 13:01 02/09/20 13:01 02/09/20 13:01 Intake & Output 02/08/20 02/09/20 02/10/20 06:59 06:59 06:59 Intake Total 1999 Balance 1999 Weight 56.8 kg General appearance: PRESENT: no acute distress, cooperative, thin Head exam: PRESENT: atraumatic Eye exam: ABSENT: scleral icterus Mouth exam: PRESENT: dry mucosa Throat exam: ABSENT: post pharyngeal erythema Neck exam: ABSENT: JVD Respiratory exam: PRESENT: clear to auscultation teddy, unlabored Cardiovascular exam: PRESENT: RRR GI/Abdominal exam: PRESENT: normal bowel sounds, soft. ABSENT: distended, firm, guarding, rebound, rigid, tenderness Extremities exam: ABSENT: pedal edema Musculoskeletal exam: PRESENT: ambulatory Neurological exam: PRESENT: alert, awake, oriented to person, oriented to place, oriented to time, oriented to situation Psychiatric exam: PRESENT: appropriate affect Skin exam: ABSENT: jaundice, rash Results Laboratory Results: 02/08/20 23:20 02/09/20 14:00 02/08/20 02/08/20 02/09/20 23:20 23:20 01:49 WBC 14.2 H RBC 3.65 L Hgb 10.2 L Hct 31.1 L MCV 85 MCH 27.9 MCHC 32.7 RDW 15.1 H Plt Count 320 Seg Neutrophils % Not Reportable Carbonic Acid 1.01 L HCO3/H2CO3 Ratio 13:1 ABG pH 7.23 L ABG pCO2 33.5 L ABG pO2 51.1 L ABG HCO3 13.6 L ABG O2 Saturation 79.8 L ABG Base Excess -12.9 FiO2 ROOM AIR Sodium 140.2 Potassium 3.7 Chloride 106 Carbon Dioxide 18 L Anion Gap 16 BUN 27 H Creatinine 1.79 H Est GFR ( Amer) 38 L Glucose 407 H* Lactic Acid Calcium 9.5 Ferritin Total Bilirubin 0.5 AST 28 Alkaline Phosphatase 234 H C-Reactive Protein Total Protein 7.2 Albumin 4.1 Lipase 134.4 TSH Free T4 Urine Color Urine Appearance Urine pH Ur Specific [place] Urine Protein Urine Glucose (UA) Urine Ketones Urine Blood Urine Nitrite Ur Leukocyte Esterase Urine WBC (Auto) Urine RBC (Auto) 02/09/20 02/09/20 02/09/20 04:00 04:38 06:21 WBC RBC Hgb Hct MCV MCH MCHC RDW Plt Count Seg Neutrophils % Carbonic Acid Cancelled 0.76 L HCO3/H2CO3 Ratio Cancelled 10:1 ABG pH Cancelled 7.11 L* ABG pCO2 Cancelled 25.3 L ABG pO2 Cancelled 107.8 H ABG HCO3 Cancelled 7.9 L ABG O2 Saturation Cancelled 96.2 ABG Base Excess Cancelled -20.1 FiO2 Cancelled ROOM AIR Sodium Potassium Chloride Carbon Dioxide Anion Gap BUN Creatinine Est GFR ( Amer) Glucose Lactic Acid Calcium Ferritin Total Bilirubin AST Alkaline Phosphatase C-Reactive Protein Total Protein Albumin Lipase TSH Free T4 Urine Color STRAW Urine Appearance CLEAR Urine pH 5.0 Ur Specific [place] 1.013 Urine Protein >=500 H Urine Glucose (UA) >=500 H Urine Ketones 80 H Urine Blood SMALL H Urine Nitrite NEGATIVE Ur Leukocyte Esterase NEGATIVE Urine WBC (Auto) 0 Urine RBC (Auto) 1 02/09/20 02/09/20 02/09/20 11:20 11:20 11:20 WBC RBC Hgb Hct MCV MCH MCHC RDW Plt Count Seg Neutrophils % Carbonic Acid HCO3/H2CO3 Ratio ABG pH ABG pCO2 ABG pO2 ABG HCO3 ABG O2 Saturation ABG Base Excess FiO2 Sodium 137.3 Potassium 3.8 Chloride 105 Carbon Dioxide 15 L Anion Gap 17 BUN 36 H Creatinine 2.20 H Est GFR ( Amer) 30 L Glucose 362 H Lactic Acid 1.1 Calcium 8.5 Ferritin Total Bilirubin AST Alkaline Phosphatase C-Reactive Protein Total Protein Albumin Lipase TSH 0.56 Free T4 1.18 Urine Color Urine Appearance Urine pH Ur Specific [place] Urine Protein Urine Glucose (UA) Urine Ketones Urine Blood Urine Nitrite Ur Leukocyte Esterase Urine WBC (Auto) Urine RBC (Auto) 02/09/20 02/09/20 02/09/20 11:20 12:25 14:00 WBC RBC Hgb Hct MCV MCH MCHC RDW Plt Count Seg Neutrophils % Carbonic Acid 0.97 L HCO3/H2CO3 Ratio 14:1 ABG pH 7.27 L ABG pCO2 32.2 L ABG pO2 101.8 H ABG HCO3 14.5 L ABG O2 Saturation 97.0 ABG Base Excess -11.3 FiO2 21% Sodium 137.4 Potassium 3.8 Chloride 107 Carbon Dioxide 20 L Anion Gap 10 BUN 38 H Creatinine 2.21 H Est GFR ( Amer) 30 L Glucose 249 H Lactic Acid Calcium 8.8 Ferritin 40.70 Total Bilirubin AST Alkaline Phosphatase C-Reactive Protein 6.4 Total Protein Albumin Lipase TSH Free T4 Urine Color Urine Appearance Urine pH Ur Specific [place] Urine Protein Urine Glucose (UA) Urine Ketones Urine Blood Urine Nitrite Ur Leukocyte Esterase Urine WBC (Auto) Urine RBC (Auto) Impressions: Abdomen/Pelvis CT 02/09/20 00:00 IMPRESSION: Mild dependent opacities in the left lower lobe likely representing atelectasis. Cannot definitively exclude mild infectious component or aspiration. No other acute abnormality on noncontrast CT of the chest. IMPRESSION: 1. Findings compatible with chronic pancreatitis. 2. No acute abnormality on noncontrast CT of the abdomen and pelvis. Chest CT 02/09/20 00:00 IMPRESSION: Mild dependent opacities in the left lower lobe likely representing atelectasis. Cannot definitively exclude mild infectious component or aspiration. No other acute abnormality on noncontrast CT of the chest. IMPRESSION: 1. Findings compatible with chronic pancreatitis. 2. No acute abnormality on noncontrast CT of the abdomen and pelvis. Assessment and Plan - Diagnosis (1) DKA (diabetic ketoacidoses) Qualifiers: Diabetes mellitus type: type 1 Diabetes mellitus complication detail: without coma Qualified Code(s): E10.10 - Type 1 diabetes mellitus with ketoacidosis without coma Is this a current diagnosis for this admission?: Yes (2) Abdominal pain Qualifiers: Abdominal location: generalized Qualified Code(s): R10.84 - Generalized abdominal pain Is this a current diagnosis for this admission?: Yes (3) Acute kidney injury superimposed on CKD Is this a current diagnosis for this admission?: Yes (4) Anemia of chronic disease Is this a current diagnosis for this admission?: Yes (5) CKD (chronic kidney disease) stage 3, GFR 30-59 ml/min Qualifiers: Chronic kidney disease stage 3 subtype: stage 3b (GFR 30-44) Qualified Code(s): N18.32 - Chronic kidney disease, stage 3b Is this a current diagnosis for this admission?: Yes (6) COVID-19 virus infection Is this a current diagnosis for this admission?: Yes (7) Chronic pancreatitis Qualifiers: Pancreatitis type: unspecified pancreatitis type Qualified Code(s): K86.1 - Other chronic pancreatitis Is this a current diagnosis for this admission?: Yes (8) Leukocytosis Qualifiers: Leukocytosis type: unspecified Qualified Code(s): D72.829 - Elevated white blood cell count, unspecified Is this a current diagnosis for this admission?: Yes - Plan Summary Summary: JJ HOFFMAN is a 39 year old female with insulin-dependent diabetes mellitus c/b multiple episodes of DKA, chronic pancreatitis, chronic anemia, chronic kidney disease who presents with abdominal pain x1 days. She tells me that she has had a dry cough for the last week. No known sick contacts, but her daughter does attend school in person. Denies fevers/chills, chest pain, diarrhea. This morning, she awoke with severe, diffuse abdominal pain. When she checked her glucose, it was >300 so she came to the ED. Upon presentation, she was found to be in DKA, which is the likely cause of her abdominal pain. CT C/A/P showed only evidence of chronic pancreatitis. She was also Covid+. DKA: BG >500 on presentation, now down to 212 after being on an insulin ggt and aggressive hydration. When BG <200, plan to start Lantus 20 U daily (home dose) and SSI, and stop insulin ggt 1 hour after SC insulin administration. DKA likely due to new Covid-19 diagnosis. Covid-19 Infection: she also had a known positive test in 09/2019. Her only symptom is a dry cough. - start Zinc, Vit C, Vit D, B-complex and ASA therapy Chronic Pancreatitis: start pancreatic enzymes with meals. She is followed by Dr. Dunham for chronic abdominal pain. Anemia of Chronic Disease: she was quite dehydrated when initial labs were drawn. I suspect CBC is concentrated, and anticipate a drop in counts when CBC is repeated. RONIT on Chronic Kidney Disease, Stage III: due to long-standing and poorly controlled diabetes. Anticipate some improvement with IVF hydration. Leukocytosis: likely due to hemoconcentration, although may also be due to viral infection vs bacterial infection vs stress reaction. BCx pending. DVT ppx: heparin - Time Time Spent with patient: 35 or more minutes Anticipated Discharge Disposition: Home, Self Care Anticipated Discharge Timeframe: within 48 hours
[2020-02-09] MEDS: LIPASE/PROTEASE/AMYLASE 1 CAP CAPSULE.DR PO SCH (16:16)
[2020-02-09] MEDS: SUCRALFATE 1 GM TABLET PO SCH ×2 (16:16→22:02)
[2020-02-09] MEDS: HEPARIN SOD (PORCINE) 5,000 UNIT/ML 1 ML VIAL SUBCUT SCH ×2 (16:16→22:03)
[2020-02-09 16:48] LABS: ANION GAP 8 (5-19); BLOOD UREA NITROGEN 36 mg/dL (7-20); CALCIUM 8.3 mg/dL (8.4-10.2); CARBON DIOXIDE 21 mmol/L (22-30); CHLORIDE 110 mmol/L (98-107); GLUCOSE 145 mg/dL (75-110); POTASSIUM 3.4 mmol/L (3.6-5.0)
[2020-02-09 16:52] LABS: ARTERIAL BLOOD BASE EXCESS -8.3 mmol/L; ARTERIAL BLOOD H2CO3 1.07 mmol/L (1.05-1.35); ARTERIAL BLOOD HCO3 17.2 mmol/L (20-24); ARTERIAL BLOOD O2 SATURATION 97.2 % (94-98); ARTERIAL BLOOD PCO2 35.5 mmHg (35-45); ARTERIAL BLOOD PO2 102.5 mmHg (80-100); ARTERIAL BLOOD TOTAL CO2 18.3 mmol/L (21-25)
[2020-02-09 16:53] LABS: ARTERIAL BLOOD FIO2 ROOM AIR
[2020-02-09] MEDS ORDERED: INSULIN GLARGINE,HUM.REC.ANLOG 1,000 UNIT/10 ML VIAL SUBCUT ONE (18:00)
[2020-02-09] MEDS: ASCORBIC ACID 500 MG TABLET PO SCH (18:00)
[2020-02-09] MEDS ORDERED: POTASSIUM CHLORIDE 10 MEQ TABLET.ER PO ONE (18:12)
[2020-02-09] MEDS ORDERED: INSULIN GLARGINE,HUM.REC.ANLOG 1,000 UNIT/10 ML VIAL (PYX) SUBCUT ONE (18:22)
[2020-02-09] MEDS: POTASSI CL 20 MEQ/1/2NS 1L 20 MEQ/1,000 ML RTUINJ IV PRN (20:18)
[2020-02-09] MEDS: METOPROLOL TARTRATE 25 MG TABLET PO SCH (22:02)
[2020-02-09] MEDS: PREGABALIN 50 MG CAPSULE PO SCH (22:02)
[2020-02-09] MEDS: AMITRIPTYLINE HCL 25 MG TABLET PO SCH (22:02)
[2020-02-09] MEDS: INSULIN LISPRO 100 UNIT/ML 3 ML VIAL SUBCUT SCH (22:06)
[2020-02-10 00:53] LABS: ARTERIAL BLOOD H2CO3 1.05 mmol/L (1.05-1.35); ARTERIAL BLOOD HCO3 15.2 mmol/L (20-24); ARTERIAL BLOOD O2 SATURATION 96.2 % (94-98); ARTERIAL BLOOD PCO2 34.9 mmHg (35-45); ARTERIAL BLOOD PH 7.26 (7.35-7.45); ARTERIAL BLOOD PO2 94.1 mmHg (80-100); ARTERIAL BLOOD TOTAL CO2 16.3 mmol/L (21-25)
[2020-02-10 00:59] LABS: ARTERIAL BLOOD FIO2 ROOM AIR
[2020-02-10] MEDS: POTASSI CL 20 MEQ/1/2NS 1L 20 MEQ/1,000 ML RTUINJ IV PRN (03:49)
[2020-02-10] MEDS: HYDROMORPHONE HCL INJ/PF 2 MG/ML AMPULE IV PRN ×4 (04:00→23:56)
[2020-02-10] MEDS ORDERED: AMLODIPINE BESYLATE 5 MG TABLET PO ONE (04:45)
[2020-02-10] MEDS: PANTOPRAZOLE SODIUM 40 MG TABLET.DR PO SCH (05:09)
[2020-02-10] MEDS: HEPARIN SOD (PORCINE) 5,000 UNIT/ML 1 ML VIAL SUBCUT SCH ×3 (05:10→22:55)
[2020-02-10 06:01] LABS: ABSOLUTE LYMPHOCYTES (AUTO) 3.2 10^3/uL (0.5-4.7); ABSOLUTE MONOCYTES (AUTO) 1.1 10^3/uL (0.1-1.4); ABSOLUTE NEUT (AUTO) 12.6 10^3/uL (1.7-8.2); BASOPHILS % (AUTO) 0.2 % (0-2); EOSINOPHILS % (AUTO) 0.3 % (0-6); HEMATOCRIT 26.4 % (36.0-47.0); HEMOGLOBIN 8.6 g/dL (12.0-15.5); MEAN CORPUSCULAR HEMOGLOBIN 27.8 pg (27.0-33.4); MEAN CORPUSCULAR HGB CONC 32.5 g/dL (32.0-36.0); MEAN CORPUSCULAR VOLUME 86 fl (80-97); MONOCYTES % (AUTO) 6.2 % (3-13); PLATELET COUNT 300 10^3/uL (150-450); RED BLOOD COUNT 3.08 10^6/uL (3.72-5.28); RED CELL DISTRIBUTION WIDTH 15.2 % (11.5-14.0); SEGMENTED NEUTROPHILS % (AUTO) 74.3 % (42-78); TOTAL CELLS COUNTED % (AUTO) 100 %
[2020-02-10 06:09] LABS: D-DIMER 0.5 ug/mL (0.00-0.50)
[2020-02-10 07:01] LABS: ALBUMIN 2.9 g/dL (3.5-5.0); ALKALINE PHOSPHATASE 170 U/L (38-126); ANION GAP 6 (5-19); ASPARTATE AMINO TRANSFERASE 36 U/L (14-36); BILIRUBIN,DIRECT 0.2 mg/dL (0.0-0.4); BILIRUBIN,TOTAL 0.3 mg/dL (0.2-1.3); BLOOD UREA NITROGEN 30 mg/dL (7-20); CALCIUM 8.6 mg/dL (8.4-10.2); CARBON DIOXIDE 18 mmol/L (22-30); CHLORIDE 112 mmol/L (98-107); GLUCOSE 220 mg/dL (75-110); TOTAL PROTEIN 5.9 g/dL (6.3-8.2)
[2020-02-10 07:13] LABS: POTASSIUM 4.8 mmol/L (3.6-5.0)
[2020-02-10] MEDS: LIPASE/PROTEASE/AMYLASE 1 CAP CAPSULE.DR PO SCH ×3 (08:35→16:30)
[2020-02-10] MEDS: SUCRALFATE 1 GM TABLET PO SCH ×4 (08:35→22:53)
[2020-02-10] MEDS: INSULIN LISPRO 100 UNIT/ML 3 ML VIAL SUBCUT SCH ×4 (08:35→22:56)
[2020-02-10] MEDS ORDERED: LISINOPRIL 10 MG TABLET PO ONE (09:00)
[2020-02-10] MEDS: ASCORBIC ACID 500 MG TABLET PO SCH ×2 (09:10→17:08)
[2020-02-10] MEDS: METOPROLOL TARTRATE 25 MG TABLET PO SCH ×2 (09:10→22:54)
[2020-02-10] MEDS: ASPIRIN 81 MG TABLET, ENT COATED PO SCH (09:10)
[2020-02-10] MEDS: DULOXETINE HCL 20 MG CAPSULE.DR PO SCH (09:10)
[2020-02-10] MEDS: ZINC SULFATE 220 MG CAPSULE PO SCH (09:11)
[2020-02-10] MEDS: AMLODIPINE BESYLATE 5 MG TABLET PO SCH ×2 (09:11→22:54)
[2020-02-10] MEDS: CHOLECALCIFEROL (D3) 1,000 UNIT (25 MCG) TABLET PO SCH (09:11)
[2020-02-10] MEDS: INSULIN GLARGINE,HUM.REC.ANLOG 1,000 UNIT/10 ML VIAL SUBCUT SCH (12:22)
[2020-02-10] MEDS: ISOSORBIDE MONONITRATE 60 MG TAB.ER.24H PO SCH (16:34)
--- NOTE | 2020-02-10 17:59 | PDOC PROGRESS REPORT ---
Subjective Date:: 02/10/20 Subjective:: NAEO. BP and glucose elevated today. Abdominal pain resolved. Reason For Visit: DKA Physical Exam Vital Signs: Temp Pulse Resp BP Pulse Ox 98.0 F 84 18 139/83 H 98 02/10/20 15:37 02/10/20 15:37 02/10/20 15:37 02/10/20 15:37 02/10/20 15:37 Intake & Output 02/09/20 02/10/20 02/11/20 06:59 06:59 06:59 Intake Total 1999 1276 Balance 1999 1276 Weight 56.8 kg 61.2 kg General appearance: PRESENT: no acute distress, cooperative Eye exam: ABSENT: scleral icterus Mouth exam: PRESENT: moist Throat exam: ABSENT: post pharyngeal erythema Neck exam: ABSENT: JVD Respiratory exam: PRESENT: clear to auscultation teddy Cardiovascular exam: PRESENT: RRR GI/Abdominal exam: PRESENT: normal bowel sounds, soft. ABSENT: tenderness Gentrourinary exam: ABSENT: indwelling catheter Extremities exam: ABSENT: pedal edema Neurological exam: PRESENT: alert, awake, oriented to person, oriented to place, oriented to time, oriented to situation Psychiatric exam: PRESENT: appropriate affect Skin exam: ABSENT: jaundice Results Laboratory Results: 02/10/20 05:10 02/10/20 05:10 02/09/20 02/10/20 02/10/20 22:15 00:35 05:10 WBC 17.0 H RBC 3.08 L Hgb 8.6 L Hct 26.4 L MCV 86 MCH 27.8 MCHC 32.5 RDW 15.2 H Plt Count 300 Seg Neutrophils % 74.3 Carbonic Acid Cancelled 1.05 HCO3/H2CO3 Ratio Cancelled 14:1 ABG pH Cancelled 7.26 L ABG pCO2 Cancelled 34.9 L ABG pO2 Cancelled 94.1 ABG HCO3 Cancelled 15.2 L ABG O2 Saturation Cancelled 96.2 ABG Base Excess Cancelled -11.0 FiO2 Cancelled ROOM AIR Sodium Potassium Chloride Carbon Dioxide Anion Gap BUN Creatinine Est GFR ( Amer) Glucose Calcium Magnesium Total Bilirubin AST Alkaline Phosphatase Total Protein Albumin 02/10/20 05:10 WBC RBC Hgb Hct MCV MCH MCHC RDW Plt Count Seg Neutrophils % Carbonic Acid HCO3/H2CO3 Ratio ABG pH ABG pCO2 ABG pO2 ABG HCO3 ABG O2 Saturation ABG Base Excess FiO2 Sodium 135.8 L Potassium 4.8 D Chloride 112 H Carbon Dioxide 18 L Anion Gap 6 BUN 30 H Creatinine 2.15 H Est GFR ( Amer) 31 L Glucose 220 H Calcium 8.6 Magnesium 1.7 Total Bilirubin 0.3 AST 36 Alkaline Phosphatase 170 H Total Protein 5.9 L Albumin 2.9 L Impressions: Abdomen/Pelvis CT 02/09/20 00:00 IMPRESSION: Mild dependent opacities in the left lower lobe likely representing atelectasis. Cannot definitively exclude mild infectious component or aspiration. No other acute abnormality on noncontrast CT of the chest. IMPRESSION: 1. Findings compatible with chronic pancreatitis. 2. No acute abnormality on noncontrast CT of the abdomen and pelvis. Chest CT 02/09/20 00:00 IMPRESSION: Mild dependent opacities in the left lower lobe likely representing atelectasis. Cannot definitively exclude mild infectious component or aspiration. No other acute abnormality on noncontrast CT of the chest. IMPRESSION: 1. Findings compatible with chronic pancreatitis. 2. No acute abnormality on noncontrast CT of the abdomen and pelvis. Assessment and Plan - Diagnosis (1) DKA (diabetic ketoacidoses) Qualifiers: Diabetes mellitus type: type 1 Diabetes mellitus complication detail: without coma Qualified Code(s): E10.10 - Type 1 diabetes mellitus with ketoacidosis without coma Is this a current diagnosis for this admission?: Yes (2) Abdominal pain Qualifiers: Abdominal location: generalized Qualified Code(s): R10.84 - Generalized abdominal pain Is this a current diagnosis for this admission?: Yes (3) Acute kidney injury superimposed on CKD Is this a current diagnosis for this admission?: Yes (4) Anemia of chronic disease Is this a current diagnosis for this admission?: Yes (5) CKD (chronic kidney disease) stage 3, GFR 30-59 ml/min Qualifiers: Chronic kidney disease stage 3 subtype: stage 3b (GFR 30-44) Qualified Code(s): N18.32 - Chronic kidney disease, stage 3b Is this a current diagnosis for this admission?: Yes (6) COVID-19 virus infection Is this a current diagnosis for this admission?: Yes (7) Chronic pancreatitis Qualifiers: Pancreatitis type: unspecified pancreatitis type Qualified Code(s): K86.1 - Other chronic pancreatitis Is this a current diagnosis for this admission?: Yes (8) Leukocytosis Qualifiers: Leukocytosis type: unspecified Qualified Code(s): D72.829 - Elevated white blood cell count, unspecified Is this a current diagnosis for this admission?: Yes (9) Hypertensive urgency Is this a current diagnosis for this admission?: Yes - Plan Summary Summary: JJ HOFFMAN is a 39 year old female with insulin-dependent diabetes mellitus c/b multiple episodes of DKA, chronic pancreatitis, chronic anemia, chronic kidney disease who presents with abdominal pain x1 day. She tells me that she has had a dry cough for the last week. No known sick contacts, but her daughter does attend school in person. Denies fevers/chills, chest pain, diarrhea. This morning, she awoke with severe, diffuse abdominal pain. When she checked her glucose, it was >300 so she came to the ED. Upon presentation, she was found to be in DKA, which is the likely cause of her abdominal pain. CT C/A/P showed only evidence of chronic pancreatitis. She was also Covid+. DKA: Resolved. BG >500 on presentation. She was started on an insulin ggt and received aggressive hydration. When BG <200, her home dose of Lantus 20 U daily was restarted along with SSI. DKA likely due to new Covid-19 diagnosis. Uncontrolled DM1: HbA1c 8.6%. Goal <7% given age. - continue Lantus 20 units daily - start Humalog 4 units TID AC - continue SSI AC and HS Covid-19 Infection: she also had a known positive test in 09/2019. Her only symptom is a dry cough. She stable on RA. - continue Zinc, Vit C, Vit D, B-complex and ASA therapy Chronic Pancreatitis c/b chronic abdominal pain: start pancreatic enzymes with meals. She is followed by Dr. Dunham for chronic abdominal pain. Anemia of Chronic Disease + Iron Deficiency Anemia: she was quite dehydrated when initial labs were drawn. I suspect initial CBC was concentrated, and today's drop in her counts is thus not surprising. She denies hematochezia, hematemesis, melena. She has no evidence of an acute bleed and is HD-stable. - start oral iron therapy - recheck CBC in 3 months Chronic Kidney Disease, Stage III: due to long-standing and poorly controlled diabetes/hypertension. - outpatient referral to nephrology Leukocytosis: may be due to viral infection vs bacterial infection vs stress reaction. BCx x2 with NGTD. She denies fevers/chills, SOB, diarrhea, vomiting, sick contacts. - repeat CBC in AM - hold off on antibiotic therapy given her hemodynamic stability and no evidence of infection Hypertensive Urgency: BP much better controlled on current medication regimen. She tells me that she frequently has BP elevated in 200s/100s at home despite taking her home medications. She would benefit from tight BP control given concomitant CKD and young age. - goal BP <130/80 DVT ppx: heparin - Time Time Spent with patient: 35 or more minutes Anticipated Discharge Disposition: Home, Self Care Anticipated Discharge Timeframe: within 24 hours
[2020-02-10] MEDS: LISINOPRIL 10 MG TABLET PO SCH (22:53)
[2020-02-10] MEDS: PREGABALIN 50 MG CAPSULE PO SCH (22:53)
[2020-02-10] MEDS: AMITRIPTYLINE HCL 25 MG TABLET PO SCH (22:55)
[2020-02-11] MEDS: HEPARIN SOD (PORCINE) 5,000 UNIT/ML 1 ML VIAL SUBCUT SCH (06:49)
[2020-02-11] MEDS: PANTOPRAZOLE SODIUM 40 MG TABLET.DR PO SCH (06:50)
[2020-02-11] MEDS: HYDROMORPHONE HCL INJ/PF 2 MG/ML AMPULE IV PRN (07:11)
[2020-02-11 07:52] LABS: HEMATOCRIT 24.2 % (36.0-47.0); HEMOGLOBIN 8.1 g/dL (12.0-15.5); MEAN CORPUSCULAR HEMOGLOBIN 28.5 pg (27.0-33.4); MEAN CORPUSCULAR HGB CONC 33.6 g/dL (32.0-36.0); MEAN CORPUSCULAR VOLUME 85 fl (80-97); PLATELET COUNT 270 10^3/uL (150-450); RED BLOOD COUNT 2.86 10^6/uL (3.72-5.28); RED CELL DISTRIBUTION WIDTH 15.2 % (11.5-14.0); WHITE BLOOD COUNT 8.3 10^3/uL (4.0-10.5)
[2020-02-11] MEDS ORDERED: LISINOPRIL 10 MG TABLET PO SCH (08:00)
[2020-02-11 08:21] LABS: ANION GAP 5 (5-19); BLOOD UREA NITROGEN 30 mg/dL (7-20); CALCIUM 8.6 mg/dL (8.4-10.2); CARBON DIOXIDE 21 mmol/L (22-30); CHLORIDE 109 mmol/L (98-107); GLUCOSE 137 mg/dL (75-110); POTASSIUM 4.2 mmol/L (3.6-5.0)
[2020-02-11] MEDS: INSULIN LISPRO 100 UNIT/ML 3 ML VIAL SUBCUT SCH ×4 (09:21→12:09)
[2020-02-11] MEDS: ZINC SULFATE 220 MG CAPSULE PO SCH (09:24)
[2020-02-11] MEDS: ISOSORBIDE MONONITRATE 60 MG TAB.ER.24H PO SCH (09:28)
[2020-02-11] MEDS: METOPROLOL TARTRATE 25 MG TABLET PO SCH (09:28)
[2020-02-11] MEDS: DULOXETINE HCL 20 MG CAPSULE.DR PO SCH (09:28)
[2020-02-11] MEDS: CHOLECALCIFEROL (D3) 1,000 UNIT (25 MCG) TABLET PO SCH (09:28)
[2020-02-11] MEDS: AMLODIPINE BESYLATE 5 MG TABLET PO SCH (09:28)
[2020-02-11] MEDS: ASPIRIN 81 MG TABLET, ENT COATED PO SCH (09:28)
[2020-02-11] MEDS: LISINOPRIL 10 MG TABLET PO SCH (09:28)
[2020-02-11] MEDS: INSULIN GLARGINE,HUM.REC.ANLOG 1,000 UNIT/10 ML VIAL SUBCUT SCH ×2 (09:28→12:09)
[2020-02-11] MEDS: SUCRALFATE 1 GM TABLET PO SCH ×2 (09:29→12:08)
[2020-02-11] MEDS: ASCORBIC ACID 500 MG TABLET PO SCH (09:29)
[2020-02-11] MEDS: LIPASE/PROTEASE/AMYLASE 1 CAP CAPSULE.DR PO SCH ×2 (09:29→12:08)
--- NOTE | 2020-02-11 10:57 | PDOC DISCHARGE SUMMARY ---
Impression - Admit/DC Date/PCP Admission Date/Primary Care Provider: 02/09/20 08:28 ROSIO OLMEDO-Claudine Discharge Date: 02/11/20 - Discharge Diagnosis (1) DKA (diabetic ketoacidoses) Is this a current diagnosis for this admission?: Yes (2) Abdominal pain Is this a current diagnosis for this admission?: Yes (3) Acute kidney injury superimposed on CKD Is this a current diagnosis for this admission?: Yes (4) Anemia of chronic disease Is this a current diagnosis for this admission?: Yes (5) CKD (chronic kidney disease) stage 3, GFR 30-59 ml/min Is this a current diagnosis for this admission?: Yes (6) COVID-19 virus infection Is this a current diagnosis for this admission?: Yes (7) Chronic pancreatitis Is this a current diagnosis for this admission?: Yes (8) Leukocytosis Is this a current diagnosis for this admission?: Yes (9) Hypertensive urgency Is this a current diagnosis for this admission?: Yes - Assessment Summary: JJ HOFFMAN is a 39 year old female with 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 She tells me that she has had a dry cough for the last week. No known sick contacts, but her daughter does attend school in person. Denies fevers/chills, chest pain, diarrhea. This morning, she awoke with severe, diffuse abdominal pain. When she checked her glucose, it was >300 so she came to the ED. Upon presentation, she was found to be in DKA, which is the likely cause of her abdominal pain. CT C/A/P showed only evidence of chronic pancreatitis. She was also found to be Covid+. DKA: Resolved. BG >500 on presentation. She was started on an insulin ggt and received aggressive hydration. When BG <200, her home dose of Lantus 20 U daily was restarted along with SSI. DKA likely due to new Covid-19 diagnosis. Uncontrolled DM1: HbA1c 8.6%. Goal <7% given age. Her home dose of Lantus 20 units daily was continued. She was advised to start giving herself scheduled Humalog 5 units TID AC in addition to SSI with meals. She should have repeat HbA1c in 3 months. Covid-19 Infection: she also had a known positive test in 09/2019. Her only symptom is a dry cough. She stable on RA. She as advised to continue taking Zinc, Vit C, Vit D, B-complex and ASA therapy as outpatient. She was counselled to quarantine for at least 10 more days and advised to contact any one that she has come into contact with in the last week. Chronic Pancreatitis c/b chronic abdominal pain: started pancreatic enzymes with meals with good effect. She is followed by Dr. Palomino for chronic abdominal pain as outpatient. Anemia of Chronic Disease + Iron Deficiency Anemia: she was quite dehydrated when initial labs were drawn. I suspect initial CBC was concentrated, and so drop in her counts is thus not surprising. She denies hematochezia, hematemesis, melena. She has no evidence of an acute bleed and is HD-stable. She was started on oral iron therapy on discharge. Recheck CBC in 3 months as outpatient. Chronic Kidney Disease, Stage III: due to long-standing and poorly controlled diabetes/hypertension. She was referred to nephrology on discharge. Leukocytosis: may be due to viral infection vs bacterial infection vs stress reaction. BCx x2 with NGTD. She denies fevers/chills, SOB, diarrhea, vomiting, sick contacts. Resolved without antibiotics. Hypertensive Urgency: BP much better controlled on current medication regimen. She tells me that she frequently has BP elevated in 200s/100s at home despite taking her home medications. She would benefit from tight BP control given co ncomitant CKD and young age. - Additional Information Resuscitation Status: Full Code Discharge Diet: Diabetic Discharge Activity: Activity As Tolerated Referrals: AJIT PALOMINO MD [ACTIVE STAFF] - RONALD BARKER FNP-C [Primary Care Provider] - Follow up as needed Prescriptions: Hydrocodone/Acetaminophen [Hydrocodone-Acetamin 5-300 mg] 1 each PO Q8HP PRN #10 tablet PRN Reason: For Pain Isosorbide Mononitrate [Imdur 60 mg Tablet.er] 60 mg PO DAILY #30 tab.sr.24h Insulin Glargine,Hum.rec.anlog [Lantus Insulin 100 Unit/mL Insulin Pen] 20 unit SUBCUT DAILY #3 each Atorvastatin Calcium [Lipitor 40 mg Tablet] 40 mg PO QHS #30 tablet Lisinopril 20 mg PO Q12H #60 tablet Metoprolol Tartrate [Lopressor 25 mg Tablet] 25 mg PO Q12 #60 tab Amlodipine Besylate [Norvasc 5 mg Tablet] 5 mg PO Q12 #60 tablet Insulin Aspart [Novolog Flexpen] See Protocol SUBCUT AC #3 pen Lipase/Protease/Amylase [Carolynn Artis 16,800 Unit Cap] 1 each PO AC #90 capsule. Home Medications: Promethazine HCl [Phenergan 25 mg Tablet] 25 mg PO Q6HP PRN 09/15/19 Sucralfate [Carafate 1 gm Tablet] 1 gm PO ACHS #120 tablet 11/12/19 Amitriptyline HCl [Elavil 25 mg Tablet] 25 mg PO QHS 02/09/20 Butalbital/Aspirin/Caffeine [Atqaje-Fahvyzy-Cllmc 50-325-40] 2 each PO Q4HP PRN 02/09/20 Duloxetine HCl [Cymbalta 20 mg Capsule.] 20 mg PO DAILY 02/09/20 Duloxetine HCl [Cymbalta] 60 mg PO DAILY 02/09/20 Pregabalin [Lyrica 50 mg Capsule] 50 mg PO QHS 02/09/20 Amlodipine Besylate [Norvasc 5 mg Tablet] 5 mg PO Q12 #60 tablet 02/11/20 Atorvastatin Calcium [Lipitor 40 mg Tablet] 40 mg PO QHS #30 tablet 02/11/20 Hydrocodone/Acetaminophen [Hydrocodone-Acetamin 5-300 mg] 1 each PO Q8HP PRN #10 tablet 02/11/20 Insulin Aspart [Novolog Flexpen] See Protocol SUBCUT AC #3 pen 02/11/20 Insulin Glargine,Hum.rec.anlog [Lantus Insulin 100 Unit/mL Insulin Pen] 20 unit SUBCUT DAILY #3 each 02/11/20 Isosorbide Mononitrate [Imdur 60 mg Tablet.er] 60 mg PO DAILY #30 tab.sr.24h 02/11/20 Lipase/Protease/Amylase [Carolynn Artis 16,800 Unit Cap] 1 each PO AC #90 c apskiara. 02/11/20 Lisinopril 20 mg PO Q12H #60 tablet 02/11/20 Metoprolol Tartrate [Lopressor 25 mg Tablet] 25 mg PO Q12 #60 tab 02/11/20 History of Present Illiness History of Present Illness: JJ HOFFMAN is a 39 year old female with insulin-dependent diabetes mellitus c/b multiple episodes of DKA, chronic pancreatitis, chronic anemia, chronic kid maritza disease who presents with abdominal pain x1 days. She tells me that she has had a dry cough for the last week. No known sick contacts, but her daughter does attend school in person. Denies fevers/chills, chest pain, diarrhea. This morning, she awoke with severe, diffuse abdominal pain. When she checked her glucose, it was >300 so she came to the ED. Upon presentation, she was found to be in DKA. She received 2 L of IVF and 6 units of insulin in the ED. Physical Exam Vital Signs: Temp Pulse Resp BP Pulse Ox 98.0 F 89 19 123/73 100 02/11/20 03:34 02/11/20 07:00 02/11/20 03:34 02/11/20 03:34 02/11/20 03:34 Intake & Output 02/10/20 02/11/20 02/12/20 06:59 06:59 06:59 Intake Total 1276 Balance 1276 Weight 61.2 kg 64.4 kg Results Laboratory Results: WBC 8.3 10^3/uL (4.0-10.5) 02/11/20 07:00 RBC 2.86 10^6/uL (3.72-5.28) L 02/11/20 07:00 Hgb 8.1 g/dL (12.0-15.5) L 02/11/20 07:00 Hct 24.2 % (36.0-47.0) L 02/11/20 07:00 MCV 85 fl (80-97) 02/11/20 07:00 MCH 28.5 pg (27.0-33.4) 02/11/20 07:00 MCHC 33.6 g/dL (32.0-36.0) 02/11/20 07:00 RDW 15.2 % (11.5-14.0) H 02/11/20 07:00 Plt Count 270 10^3/uL (150-450) 02/11/20 07:00 Lymph % (Auto) 19.0 % (13-45) 02/10/20 05:10 [place] % (Auto) 6.2 % (3-13) 02/10/20 05:10 Eos % (Auto) 0.3 % (0-6) 02/10/20 05:10 Baso % (Auto) 0.2 % (0-2) 02/10/20 05:10 Absolute Neuts (auto) 12.6 10^3/uL (1.7-8.2) H 02/10/20 05:10 Absolute Lymphs (auto) 3.2 10^3/uL (0.5-4.7) 02/10/20 05:10 Absolute Monos (auto) 1.1 10^3/uL (0.1-1.4) 02/10/20 05:10 Absolute Eos (auto) 0.0 10^3/uL (0.0-0.6) 02/10/20 05:10 Absolute Basos (auto) 0.0 10^3/uL (0.0-0.2) 02/10/20 05:10 Total Counted 100 02/08/20 23:20 Seg Neutrophils % 74.3 % (42-78) 02/10/20 05:10 Seg Neuts % (Manual) 96 % (42-78) H 02/08/20 23:20 Lymphocytes % (Manual) 1 % (13-45) L 02/08/20 23:20 Monocytes % (Manual) 3 % (3-13) 02/08/20 23:20 Eosinophils % (Manual) 0 % (0-6) 02/08/20 23:20 Basophils % (Manual) 0 % (0-2) 02/08/20 23:20 Abs Neuts (Manual) 13.6 10^3/uL (1.7-8.2) H 02/08/20 23:20 Abs Lymphs (Manual) 0.1 10^3/uL (0.5-4.7) L 02/08/20 23:20 Abs Monocytes (Manual) 0.4 10^3/uL (0.1-1.4) 02/08/20 23:20 Absolute Eos (Manual) 0.0 10^3/uL (0.0-0.6) 02/08/20 23:20 Abs Basophils (Manual) 0.0 10^3/uL (0.0-0.2) 02/08/20 23:20 Toxic Granulation SLIGHT 02/08/20 23:20 Toxic Vacuolation PRESENT 02/08/20 23:20 Platelet Comment ADEQUATE 02/08/20 23:20 Poikilocytosis SLIGHT 02/08/20 23:20 Anisocytosis SLIGHT 02/08/20 23:20 Tear Drop Cells SLIGHT 02/08/20 23:20 Ovalocytes SLIGHT 02/08/20 23:20 Wheat[place] Cells SLIGHT 02/08/20 23:20 Schistocytes SLIGHT 02/08/20 23:20 Fibrinogen 400 mg/dL (209-497) 02/10/20 05:10 D-Dimer 0.50 ug/mL (0.00-0.50) 02/10/20 05:10 Carbonic Acid 1.05 mmol/L (1.05-1.35) 02/10/20 00:35 HCO3/H2CO3 Ratio 14:1 02/10/20 00:35 ABG pH 7.26 (7.35-7.45) L 02/10/20 00:35 ABG pCO2 34.9 mmHg (35-45) L 02/10/20 00:35 ABG pO2 94.1 mmHg (80-100) 02/10/20 00:35 ABG HCO3 15.2 mmol/L (20-24) L 02/10/20 00:35 ABG Total CO2 16.3 mmol/L (21-25) L 02/10/20 00:35 ABG O2 Saturation 96.2 % (94-98) 02/10/20 00:35 ABG Base Excess -11.0 mmol/L 02/10/20 00:35 FiO2 ROOM AIR 02/10/20 00:35 Sodium 134.8 mmol/L (137-145) L 02/11/20 07:00 Potassium 4.2 mmol/L (3.6-5.0) 02/11/20 07:00 Chloride 109 mmol/L (98-107) H 02/11/20 07:00 Carbon Dioxide 21 mmol/L (22-30) L 02/11/20 07:00 Anion Gap 5 (5-19) 02/11/20 07:00 BUN 30 mg/dL (7-20) H 02/11/20 07:00 Creatinine 2.21 mg/dL (0.52-1.25) H 02/11/20 07:00 Est GFR ( Amer) 30 (>60) L 02/11/20 07:00 Est GFR (MDRD) Non-Af 25 (>60) L 02/11/20 07:00 Glucose 137 mg/dL (75-110) H 02/11/20 07:00 POC Glucose 163 mg/dL (70-110) H 02/11/20 07:45 Hemoglobin A1c % 8.6 % (4.7-6.0) H 02/09/20 11:20 Lactic Acid 1.1 mmol/L (0.7-2.1) 02/09/20 11:20 Calcium 8.6 mg/dL (8.4-10.2) 02/11/20 07:00 Magnesium 1.7 mg/dL (1.6-2.3) 02/11/20 07:00 Ferritin 40.70 ng/mL (6.2-137.0) 02/09/20 11:20 Total Bilirubin 0.3 mg/dL (0.2-1.3) 02/10/20 05:10 Direct Bilirubin 0.2 mg/dL (0.0-0.4) 02/10/20 05:10 Neonat Total Bilirubin Not Reportable 02/10/20 05:10 Neonat Direct Bilirubin Not Reportable 02/10/20 05:10 Neonat Indirect Bili Not Reportable 02/10/20 05:10 AST 36 U/L (14-36) 02/10/20 05:10 ALT 18 U/L (<35) 02/10/20 05:10 Alkaline Phosphatase 170 U/L (38-126) H 02/10/20 05:10 Lactate Dehydrogenase 268 U/L (120-246) H 02/09/20 11:20 C-Reactive Protein 6.4 mg/L (<10.0) 02/09/20 11:20 Total Protein 5.9 g/dL (6.3-8.2) L 02/10/20 05:10 Albumin 2.9 g/dL (3.5-5.0) L 02/10/20 05:10 Lipase 134.4 U/L (23-300) 02/08/20 23:20 TSH 0.56 uIU/mL (0.47-4.68) 02/09/20 11:20 Free T4 1.18 ng/dL (0.78-2.19) 02/09/20 11:20 Urine Color STRAW 02/09/20 04:00 Urine Appearance CLEAR 02/09/20 04:00 Urine pH 5.0 (5.0-9.0) 02/09/20 04:00 Ur Specific [place] 1.013 02/09/20 04:00 Urine Protein >=500 mg/dL (NEGATIVE) H 02/09/20 04:00 Urine Glucose (UA) >=500 mg/dL (NEGATIVE) H 02/09/20 04:00 Urine Ketones 80 mg/dL (NEGATIVE) H 02/09/20 04:00 Urine Blood SMALL (NEGATIVE) H 02/09/20 04:00 Urine Nitrite NEGATIVE (NEGATIVE) 02/09/20 04:00 Urine Bilirubin NEGATIVE (NEGATIVE) 02/09/20 04:00 Urine Urobilinogen NEGATIVE mg/dL (<2.0) 02/09/20 04:00 Ur Leukocyte Esterase NEGATIVE (NEGATIVE) 02/09/20 04:00 Urine WBC (Auto) 0 /HPF 02/09/20 04:00 Urine RBC (Auto) 1 /HPF 02/09/20 04:00 Urine Bacteria (Auto) TRACE /HPF 02/09/20 04:00 Squamous Epi Cells Auto 2 /HPF 02/09/20 04:00 Urine Ascorbic Acid NEGATIVE (NEGATIVE) 02/09/20 04:00 Urine HCG, Qual NEGATIVE (NEGATIVE) 02/09/20 04:00 Influenza A (RT-PCR) NEGATIVE (NEGATIVE) 02/09/20 10:45 Influenza B (RT-PCR) NEGATIVE (NEGATIVE) 02/09/20 10:45 RSV (RT-PCR) NEGATIVE (NEGATIVE) 02/09/20 10:45 SARS-CoV-2 Rap RNA(RT-PCR) POSITIVE (NEGATIVE) H 02/09/20 10:45 Impressions: Abdomen/Pelvis CT 02/09/20 00:00 IMPRESSION: Mild dependent opacities in the left lower lobe likely representing atelectasis. Cannot definitively exclude mild infectious component or aspiration. No other acute abnormality on noncontrast CT of the chest. IMPRESSION: 1. Findings compatible with chronic pancreatitis. 2. No acute abnormality on noncontrast CT of the abdomen and pelvis. Chest CT 02/09/20 00:00 IMPRESSION: Mild dependent opacities in the left lower lobe likely representing atelectasis. Cannot definitively exclude mild infectious component or aspiration. No other acute abnormality on noncontrast CT of the chest. IMPRESSION: 1. Findings compatible with chronic pancreatitis. 2. No acute abnormality on noncontrast CT of the abdomen and pelvis. Stroke Is this a Stroke Patient?: No Acute Heart Failure Is this a Heart Failure Patient?: No
[2020-02-11 12:50] VITALS: BP 196/90
== END 2020-02-11 13:29 | disposition home or self-care (01) | DRG 637 ==
LOC: ER 17:08 → EH 02-09 08:28 → 3W 02-09 14:43
PROVIDERS: ADMIT Hospitalist; ATTEND Hospitalist
DX: E10.10 Type 1 diabetes mellitus with ketoacidosis without coma (principal); U07.1 COVID-19; K86.1 Other chronic pancreatitis; N17.9 Acute kidney failure, unspecified; D63.1 Anemia in chronic kidney disease; E10.22 Type 1 diabetes mellitus with diabetic chronic kidney disease; I16.0 Hypertensive urgency; E78.5 Hyperlipidemia, unspecified; K21.9 Gastro-esophageal reflux disease without esophagitis; N18.32 Chronic kidney disease, stage 3b; I12.9 Hypertensive chronic kidney disease with stage 1 through stage 4 chronic kidney disease, or unspecified chronic kidney disease; D72.829 Elevated white blood cell count, unspecified; R10.84 Generalized abdominal pain; D50.9 Iron deficiency anemia, unspecified; F41.9 Anxiety disorder, unspecified; D63.8 Anemia in other chronic diseases classified elsewhere; E78.00 Pure hypercholesterolemia, unspecified; Z79.899 Other long term (current) drug therapy; Z79.4 Long term (current) use of insulin; Z88.6 Allergy status to analgesic agent
CPT/HCPCS: 36415; 36591; 36600; 71250; 74176; 80048; 80053; 81001; 81025; 82728; 82803; 82962; 83036; 83605; 83615; 83690; 83735; 84439; 84443; 85025; 85027; 85379; 85384; 86140; 87040; 87070; 94799; 96361; 96372; 96374; 99285; 0241U; C9803; J1170; J1642; J1644; J1815; J2405; J2550; J3480; J3490; J7030; J7050

== ENCOUNTER 2020-02-23 06:44 | Emergency (ER) | payer MEDICAID ==
[2020-02-23] MEDS ORDERED: NORMAL SALINE 1000 ML 1,000 ML IV ONE ×2 (08:01→11:23)
[2020-02-23] MEDS ORDERED: HYDROMORPHONE HCL INJ/PF 2 MG/ML AMPULE IV ONE ×2 (08:03→11:23)
--- NOTE | 2020-02-23 08:09 | ER Document Report ---
Entered by SARAH KELLY SCRIBE 02/23/20 0750 Acting as scribe for:JASPER BARAJAS MD ED GI/ - General Chief Complaint: Abdominal Pain Stated Complaint: ABDOMINAL PAIN Time Seen by Provider: 02/23/20 07:44 Primary Care Provider: RONALD BARKER FNP-C [Primary Care Provider] - Follow up in 3-5 days Information source: Patient Notes: This 39-year-old female patient presents to the emergency department today with concerns of upper abdominal pain. Patient has chronic pancreatitis and she states it feels like her previous pancreatitis flares. She has had associated nausea and vomiting with this pain. Reviewing the records shows the patient was seen here on 02/09/2020 complaining of her typical epigastric abdominal pain with unremarkable laboratory work-up. She was discharged home without pain medication. She returned about 5 hours later and DKA. This was suggest she intentionally did not take her insulin so that she could get admitted to the hospital. TRAVEL OUTSIDE OF THE [place] IN LAST 30 DAYS: No - Related Data Allergies/Adverse Reactions: hydrocodone [From [place]] Allergy (Severe, Verified 02/23/20 07:09) ? morphine Allergy (Severe, Verified 02/23/20 07:09) ? Home Medications: no list available Past Medical History - General Information source: Patient - Social History Smoking Status: Current Every Day Smoker Cigarette use (# per day): Yes Frequency of alcohol use: None Drug Abuse: None Lives with: Family Family History: Reviewed & Not Pertinent Patient has homicidal ideation: No - Past Medical History Cardiac Medical History: Reports: Hx Hypercholesterolemia, Hx Hypertension Pulmonary Medical History: Reports: Hx COPD Neurological Medical History: Reports: Hx Seizures Endocrine Medical History: Reports: Hx Diabetes Mellitus Type 1, Hx Diabetes Mellitus Type 2 Renal/ Medical History: Reports: Hx Renal Insufficiency GI Medical History: Reports: Hx Gastroesophageal Reflux Disease, Hx Pancreatitis - Chronic Musculoskeletal Medical History: Reports Hx Musculoskeletal Trauma Skin Medical History: Psychiatric Medical History: Reports: Hx Anxiety Infectious Medical History: Past Surgical History: Reports: Hx Section - x3, Hx Hysterectomy - partial, Other - Recent Port-A-Cath placement - Immunizations Immunizations up to date: Yes Hx Diphtheria, Pertussis, Tetanus Vaccination: Yes Review of Systems - Review of Systems Constitutional: No symptoms reported EENT: No symptoms reported Cardiovascular: No symptoms reported Respiratory: No symptoms reported Gastrointestinal: See HPI, Abdominal pain, Nausea, Vomiting Genitourinary: No symptoms reported Female Genitourinary: No symptoms reported Musculoskeletal: No symptoms reported Skin: No symptoms reported Hematologic/Lymphatic: No symptoms reported Neurological/Psychological: No symptoms reported -: Yes All other systems reviewed and negative Physical Exam - Vital signs Vitals: Temp Pulse Resp BP Pulse Ox 97.9 F 111 H 18 197/121 H 97 02/23/20 07:07 02/23/20 07:07 02/23/20 07:07 02/23/20 07:07 02/23/20 07:07 - Notes Notes: Physical Exam: General: Alert, rolling around the bed in pain, moaning, crying. HEENT: Normocephalic. Atraumatic. PERRL. Extraocular movements intact. Oropharynx clear. Neck: Supple. Non-tender. Respiratory: No respiratory distress. Clear and equal breath sounds bilaterally. Port in place anterior chest. Cardiovascular: Tachycardic, regular rhythm. Abdominal: Epigastric tenderness with palpation. No distension. Normal Bowel Sounds. Back: No gross abnormalities. Extremities: Moves all four extremities. Upper extremities: Normal inspection. Normal ROM. Lower extremities: Normal inspection. No edema. Normal ROM. Neurological: Normal cognition. AAOx4. Normal speech. Psychological: Normal affect. Normal Mood. Skin: Warm. Dry. Normal color. Course - Re-evaluation Re-evalutation: 02/23/20 11:[address] scan shows chronic calcific pancreatitis urine drug screen is positive for marijuana. This time patient is having severe pain again, her blood pressure is over 200 systolic with a pulse is over 100. I will give her additional IV fluids, nausea medicine, pain medication, hydralazine and Lopressor for her elevated blood pressure. It is unknown when the last time she took her blood pressure med ications might have been. - Vital Signs Vital signs: Temp Pulse Resp BP Pulse Ox 97.9 F 101 H 16 183/112 H 98 02/23/20 14:33 02/23/20 11:23 02/23/20 14:33 02/23/20 14:33 02/23/20 13:39 - Laboratory Results Result Diagrams: 02/23/20 07:52 02/23/20 07:52 Laboratory Results Interpreted: 0102/23/20 02/23/20 07:52 07:52 07:52 WBC 11.9 H RBC 3.61 L Hgb 10.0 L Hct 30.0 L RDW 15.0 H Absolute Neuts (auto) 9.3 H Seg Neutrophils % 78.5 H D-Dimer 0.59 H BUN 23 H Creatinine 1.99 H Est GFR ( Amer) 34 L Est GFR (MDRD) Non-Af 28 L Glucose 196 H Alkaline Phosphatase 169 H Creatine Kinase Urine Protein Urine Glucose (UA) Urine Blood 02/23/20 02/23/20 07:52 09:30 WBC RBC Hgb Hct RDW Absolute Neuts (auto) Seg Neutrophils % D-Dimer BUN Creatinine Est GFR ( Amer) Est GFR (MDRD) Non-Af Glucose Alkaline Phosphatase Creatine Kinase 178 H Urine Protein 100 H Urine Glucose (UA) >=500 H Urine Blood SMALL H Critical Laboratory Results Reviewed: No Critical Results - Radiology Results Critical Radiology Results Reviewed: No Critical Results - Noncontrast CT scan of the abdomen shows a heavily calcified and atrophic pancreas consistent with known history of chronic pancreatitis. - EKG Interpretation by Nv EKG shows normal: Sinus rhythm, [place], QRS Complexes, ST-T Waves. abnormal: Intervals - Prolonged QT interval Rate: Tachycardia - 101 Voltage: Consistent with LVH When compared to previous EKG there are: No significant change Discharge - Discharge Clinical Impression: Chronic calcific pancreatitis, Chronic abdominal pain, Type 1 diabetes mellitus with hyperglycemia CKD (chronic kidney disease) stage 3, GFR 30-59 ml/min Qualifiers: Chronic kidney disease stage 3 subtype: stage 3b (GFR 30-44) Qualified Code(s): N18.32 - Chronic kidney disease, stage 3b Hypertension Qualifiers: Hypertension type: essential hypertension Qualified Code(s): I10 - Essential (primary) hypertension Condition: Stable Disposition: HOME, SELF-CARE Additional Instructions: Pancreatitis Pancreatitis is an inflammation of the pancreas, an organ at the back of your abdomen. The pancreas produces insulin and enzymes that digest your food. Pancreatitis can be caused by gallstones in the bile duct, by alcohol or viruses, or by excess fat or calcium in the blood stream. Occasionally, pancreatitis occurs when a stomach ulcer augustine through into the pancreas. We try to find the cause of pancreatitis, but some tests can't be done until the pancreas heals. The usual symptoms of pancreatitis are pain in the pit of the stomach that goes straight through to the back, vomiting, and low-grade fever. Severe cases require hospital admission, but many patients with mild pancreatitis do well at home. You will probably need medicine for pain and for vomiting. Sometimes we prescribe medicine to decrease stomach acid secretion and to decrease flow of pancreatic juices. Start with a diet of clear liquids (soda pop, juices). When the pain is decreasing, you can add some simple starches (potato, toast, applesauce). Avoid proteins and fats until you are completely painfree. When you're better, your doctor may suggest treatment to prevent future pancreatitis (such as gallbladder removal). Avoid alcohol forever. Get immediate treatment for any future episodes. Contact your doctor at once or return here if you have increasing pain, shortness of breath, general swelling, increasing size of the abdomen, continued vomiting, muscle spasms, or other new symptoms. Your pain today is probably related to your chronic pancreatitis. Take the medication as prescribed for pain and nauseousness. Drink cool clear liquids today to stay hydrated. Be sure to check your sugars and take your insulin appropriately based on your blood sugars. Be sure to take all your regular medications as they are prescribed. Follow-up with your primary care provider to discuss chronic pain management. RETURN TO THE EMERGENCY ROOM IF ANY NEW OR WORSENING SYMPTOMS. Prescriptions: Oxycodone HCl/Acetaminophen [Percocet 5-325 mg Tablet] 1 tab PO ASDIR PRN #12 tablet PRN Reason: Ondansetron [Zofran Odt 4 mg Tablet] 1 - 2 tab PO Q4H PRN #20 tab.rapdis PRN Reason: Referrals: RONALD BARKER FNP-C [Primary Care Provider] - Follow up in 3-5 days I personally performed the services described in the documentation, reviewed and edited the documentation which was dictated to the scribe in my presence, and it accurately records my words and actions.
[2020-02-23 08:13] LABS: ABSOLUTE BASOPHILS # (AUTO) 0.1 10^3/uL (0.0-0.2); ABSOLUTE EOSINOPHILS # (AUTO) 0.1 10^3/uL (0.0-0.6); ABSOLUTE LYMPHOCYTES (AUTO) 1.8 10^3/uL (0.5-4.7); ABSOLUTE MONOCYTES (AUTO) 0.6 10^3/uL (0.1-1.4); ABSOLUTE NEUT (AUTO) 9.3 10^3/uL (1.7-8.2); BASOPHILS % (AUTO) 0.7 % (0-2); MEAN CORPUSCULAR HEMOGLOBIN 27.8 pg (27.0-33.4); MEAN CORPUSCULAR HGB CONC 33.4 g/dL (32.0-36.0); MEAN CORPUSCULAR VOLUME 83 fl (80-97); MONOCYTES % (AUTO) 4.8 % (3-13); PLATELET COUNT 386 10^3/uL (150-450); RED BLOOD COUNT 3.61 10^6/uL (3.72-5.28); SEGMENTED NEUTROPHILS % (AUTO) 78.5 % (42-78); TOTAL CELLS COUNTED % (AUTO) 100 %; WHITE BLOOD COUNT 11.9 10^3/uL (4.0-10.5)
[2020-02-23 08:24] LABS: ALBUMIN 3.9 g/dL (3.5-5.0); ALKALINE PHOSPHATASE 169 U/L (38-126); ANION GAP 8 (5-19); ASPARTATE AMINO TRANSFERASE 23 U/L (14-36); BILIRUBIN,DIRECT 0.3 mg/dL (0.0-0.4); BILIRUBIN,TOTAL 0.4 mg/dL (0.2-1.3); BLOOD UREA NITROGEN 23 mg/dL (7-20); CALCIUM 9.2 mg/dL (8.4-10.2); CARBON DIOXIDE 26 mmol/L (22-30); CHLORIDE 107 mmol/L (98-107); GLUCOSE 196 mg/dL (75-110)
[2020-02-23] MEDS ORDERED: FAMOTIDINE INJ/PF 20 MG/2 ML SDV IV ONE (08:26)
[2020-02-23] MEDS ORDERED: LIDOCAINE 2% VISCOUS SOLN 15 ML UDCUP PO ONE (08:26)
[2020-02-23] MEDS ORDERED: MAG HYDROX/AL HYDROX/SIMETH SUSP 30 ML UDCUP PO ONE (08:26)
[2020-02-23 09:00] LABS: C-REACTIVE PROTEIN < 5.0 mg/L (<10.0)
[2020-02-23 09:59] LABS: APPEARANCE,URINE SLIGHTLY-CLOUDY; BILIRUBIN,URINE NEGATIVE (NEGATIVE); COLOR,URINE STRAW; GLUCOSE, URINE >=500 mg/dL (NEGATIVE); KETONES,URINE NEGATIVE (NEGATIVE); LEUKOCYTE ESTERASE,URINE NEGATIVE (NEGATIVE); NITRITE,URINE NEGATIVE (NEGATIVE); PROTEIN,URINE 100 mg/dL (NEGATIVE); URINE SPECIFIC GRAVITY 1.007; UROBILINOGEN,URINE NEGATIVE mg/dL (<2.0)
[2020-02-23 10:18] LABS: URINE AMPHETAMINES SCREEN NEGATIVE; URINE BENZODIAZEPINES SCREEN NEGATIVE; URINE COCAINE SCREEN NEGATIVE; URINE METHADONE SCREEN NEGATIVE; URINE PHENCYCLIDINE SCREEN NEGATIVE
[2020-02-23 10:19] LABS: URINE BARBITURATES SCREEN UNCONFIRMED POSITIVE; URINE MARIJUANA (THC) SCREEN UNCONFIRMED POSITIVE
--- NOTE | 2020-02-23 10:22 | RADIOLOGY REPORT (SQ) ---
EXAM DESCRIPTION: CT ABD/PELVIS NO ORAL OR IV IMAGES COMPLETED DATE/TIME: 02/23/2020 9:49 am REASON FOR STUDY: Epigastric abd pain, chronic pancreatitis COMPARISON: CT abdomen pelvis 02/09/2020, 10/27/2019, 09/25/2019 TECHNIQUE: CT scan of the abdomen and pelvis performed without intravenous or oral contrast. Images reviewed with lung, soft tissue, and bone windows. Reconstructed coronal and sagittal MPR images revi ewed. All images stored on PACS. All CT scanners at this facility use dose modulation, iterative reconstruction, and/or weight based d osing when appropriate to reduce radiation dose to as low as reasonably achievable (ALARA). [facility]: Dose Right [facility]: CareDose [facility]: Dose Right [facility]: Teradose 4D [facility]: GreenVolts RADIATION DOSE: CT Rad equipment meets quality standard of care and radiation dose reduction techniq ues were employed. CTDIvol: 4.8 mGy. DLP: 245 mGy-cm.mGy. LIMITATIONS: None. FINDINGS: LOWER CHEST: Minimal left basilar atelectasis. NON-CONTRASTED LIVER, SPLEEN, ADRENALS: Evaluation limited by lack of IV contrast. No identified sign ificant masses. PANCREAS: Diffuse pancreatic atrophy with heavy calcification of the parenchyma. Diffuse dilatation of pancreatic duct. Periampullary duodenum diverticulum. . No peripancreatic inflammatory changes. GALLBLADDER: No identified stones by CT criteria. No inflammatory changes to suggest cholecystitis. RIGHT KIDNEY AND URETER: No suspicious masses. Assessment limited by lack of IV contrast. No signif icant calcifications. No hydronephrosis or hydroureter. LEFT KIDNEY AND URETER: No suspicious masses. Assessment limited by lack of IV contrast. No signifi cant calcifications. No hydronephrosis or hydroureter. AORTA AND RETROPERITONEUM: No aneurysm. No retroperitoneal masses or adenopathy. BOWEL AND PERITONEAL CAVITY: No obvious masses or inflammatory changes. No free fluid. APPENDIX: Normal. PELVIS, BLADDER, AND ABDOMINAL WALL:No abnormal masses. No free fluid. Bladder distended. No stones BONES: No significant findings. OTHER: No other significant finding. IMPRESSION: Heavily calcified and atrophic pancreas without superimposed acute inflammatory changes. COMMENT: Quality ID # [id number]: Final reports with documentation of one or more dose reduction techniques (e.g., Automated exposure control, adjustment of the mA and/or kV according to patient size, use of iterative reconstruction technique) TECHNICAL DOCUMENTATION: JOB ID: [id number] 2010 [employer]- All Rights Reserved Reading location - IP/workstation name: [email or web address]
[2020-02-23] MEDS ORDERED: ONDANSETRON HCL INJ/PF 4 MG/2 ML SDV IV ONE (11:23)
[2020-02-23] MEDS ORDERED: HYDRALAZINE HCL INJ/PF 20 MG/1 ML SDV IV ONE (11:23)
[2020-02-23] MEDS ORDERED: METOPROLOL TARTRATE PF/INJ 5 MG/5 ML SDV IV ONE ×2 (11:23→13:01)
--- NOTE | 2020-02-23 11:39 | EKG REPORT ---
SEVERITY:- ABNORMAL ECG - SINUS TACHYCARDIA LEFT ATRIAL ABNORMALITY LEFT VENTRICULAR HYPERTROPHY PROLONGED QT INTERVAL : Confirmed by: Ana Borja MD 23-Feb-2020 11:39:03
[2020-02-23] MEDS ORDERED: CLONIDINE HCL 0.2 MG TABLET PO ONE (13:01)
[2020-02-23 14:59] VITALS: BP 183/112
== END 2020-02-23 15:13 | disposition home or self-care (01) ==
LOC: ER 06:44
DX: K86.1 Other chronic pancreatitis (principal); E10.22 Type 1 diabetes mellitus with diabetic chronic kidney disease; I12.9 Hypertensive chronic kidney disease with stage 1 through stage 4 chronic kidney disease, or unspecified chronic kidney disease; N18.32 Chronic kidney disease, stage 3b; R11.2 Nausea with vomiting, unspecified; R10.10 Upper abdominal pain, unspecified; E78.00 Pure hypercholesterolemia, unspecified; F17.210 Nicotine dependence, cigarettes, uncomplicated; J44.9 Chronic obstructive pulmonary disease, unspecified; Z88.6 Allergy status to analgesic agent
CPT/HCPCS: 93005; 96376; 99285; 96361; 96374; 96375; 36415; 82550; 82728; 83690; 83735; 85025; 86140; 80053; 81001; 84484; 80307; 85379; 74176; 93010; J3490 ×4; J1170; J2405; J7030; S0028; J1642